=== PATIENT | male | born 1965 | race Caucasian/White ===

== ENCOUNTER 2016-06-17 01:42 | Inpatient (IN) | payer MEDICARE, OTHER ==
[2016-06-17] VITALS (14 sets, daily range): BP systolic 128–185; BP diastolic 69–100; PULSE 64–73; RESP 18–20; TEMP 98; Ht 172.7 cm; Wt 69.5 kg
[~2016-06-17] VITALS: Ht 172.7 cm; Wt 69.5 kg
[~2016-06-17 01:42] MED LIST: ASPI-664 PO; ATOR80TA75 PO; BEN50 PO; CALC667C PO; DOCU-159 PO; HYDR2TAB15 PO; INSU100C SQ; ISOS60TA PO; LISI-524 PO; LORA-444 PO; METO50TA16 PO; NIFE60TA7 PO; PANT40TA3 PO; PRAM0.25 PO; PRAS10TA6 PO; SEVE800T10 PO
--- NOTE | 2016-06-17 02:47 | RADRPT ---
PROCEDURE: Chest. CLINICAL INDICATION: Chest pain. TECHNIQUE: Single frontal view of the chest was obtained. COMPARISON: 05/15/2016. FINDINGS: There is a right-sided Perma-Cath extending to the SVC/RA junction. There is a left-sided Port-A-Ca th extending to the SVC/RA junction. The cardiac silhouette is within normal limits. The aortic ar ch is unremarkable. There is no focal consolidation, vascular congestion or pleural effusion. Ther e is no pneumothorax. IMPRESSION: No evidence for active cardiopulmonary disease. Bilateral central venous catheters in place. .Etienne Carolina MD, Date Time Electronically viewed and signed by .Etienne Carolina MD, on 06/17/2016 02:47 .T/
[2016-06-17 03:22] LABS: BASOPHILS % 0.2 % (0.0-2.0); EOSINOPHILS # 0.5 10^3/ul (0.0-0.5); EOSINOPHILS % 6.4 % (0.0-7.0); HEMATOCRIT 32.6 % (42.0-52.0); HEMOGLOBIN 10.6 g/dl (14.0-18.0); LYMPHOCYTES # 0.5 10^3/ul (0.8-2.9); LYMPHOCYTES % 6.5 % (15.0-51.0); MEAN CORPUSCULAR HEMOGLOBIN 30.3 pg (29.0-33.0); MEAN CORPUSCULAR HGB CONC 32.6 g/dl (32.0-37.0); MEAN CORPUSCULAR VOLUME 92.9 fl (82.0-101.0); MEAN PLATELET VOLUME 8.6 fl (7.4-10.4); MONOCYTE # 0.5 10^3/ul (0.3-0.9); MONOCYTES % 5.8 % (0.0-11.0); NEUTROPHIL # 6.3 10^3/ul (1.6-7.5); NEUTROPHILS % 81.1 % (39.0-77.0); PLATELET COUNT 197 10^3/UL (140-440); RED BLOOD COUNT 3.51 10^6/ul (4.70-6.10); UNCORRECTED WBC 7.7 10^3/ul (4.8-10.8); WHITE BLOOD COUNT 7.7 10^3/ul (4.8-10.8)
[2016-06-17 03:29] LABS: ALBUMIN 3.5 g/dl (3.3-4.9); CHLORIDE 103 mmol/L (97-110); INR 1.03; PROTIME 13.5 Sec (12.2-14.2); PT RATIO 1.1; SODIUM 141 mmol/L (135-144)
[2016-06-17 03:30] LABS: PARTIAL THROMBOPLASTIN TIME 22.9 Sec (25.0-35.0); POTASSIUM 4.7 mmol/L (3.5-5.1)
[2016-06-17 03:31] LABS: CONDITION 1; LH ANALYZER COMMENTS 1
[2016-06-17 03:32] LABS: ALANINE AMINOTRANSFERASE 63 IU/L (13-69); ALBUMIN/GLOBULIN RATIO 1.25; ALKALINE PHOSPHATASE 225 IU/L (42-121); ANION GAP 23 (8-16); ASPARTATE AMINO TRANSFERASE 49 IU/L (15-46); BLOOD UREA NITROGEN 53 mg/dl (7-20); CARBON DIOXIDE 20 mmol/L (21-31); GLUCOSE 160 mg/dl (70-220); TOTAL PROTEIN 6.3 g/dl (6.1-8.1)
[2016-06-17 03:33] LABS: CALCIUM 7.2 mg/dl (8.4-10.2)
[2016-06-17] MEDS ORDERED: HYDROmorphONE 1 MG/ML SYG IV STA (03:46)
[2016-06-17 03:49] LABS: TROPONIN-I < 0.012 ng/ml (0.00-0.12)
--- NOTE | 2016-06-17 03:56 | ERA ---
ER Documentation Chief Complaint Date/Time DATE: 06/17/16 TIME: 03:54 Chief Complaint body aches,fever x2 days,watery diarrhea X1 week,DC'd from hosp 06/01/16 HPI This is a 50-year-old male, body aches and fever for 2 days along with watery diarrhea for 1 week. He has been on intravenous ciprofloxacin for chronic UTI. No fevers no chills. No other current complaints diarrhea has been 5-6 episodes per day and not watery. Alternating fevers and chills. No bloody diarrhea. ROS All systems reviewed and are negative except as per history of present illness. Medications Home Meds Active Scripts Hydromorphone Hcl* (Dilaudid*) 2 Mg Tablet, 2 MG PO Q6H Y for PAIN LEVEL 6-10, # 14 TAB Prov:PEDRO BENSON 05/31/16 Prasugrel Hydrochloride* (Effient*) 10 Mg Tablet, 10 MG PO DAILY for 30 Days, TAB Prov:PEDRO BENSON 05/01/16 Isosorbide Mononitrate* (Isosorbide Mononitrate*) 60 Mg Tab.er.24h, 60 MG PO DAILY for 30 Days Prov:PEDRO BENSON 05/01/16 Reported Medications Pantoprazole* (Protonix*) 40 Mg Tablet.dr, 40 MG PO DAILY, TAB 05/15/16 Pramipexole* (Pramipexole*) 0.25 Mg Tablet, 0.25 MG PO HS, TAB 05/15/16 Nifedipine* (Nifedipine ER*) 60 Mg Tablet.sa, 60 MG PO DAILY, TAB.SA 05/15/16 Lisinopril* (Zestril*) 10 Mg Tablet, 10 MG PO DAILY, #30 TAB 05/15/16 Insulin Lispro (Humalog) 100 Unit/1 Ml Cartridge, 0 SQ PT HAS PUMP 05/15/16 Sevelamer Hcl* (Renagel*) 800 Mg Tablet, 1600 MG PO WITH MEALS, TAB 01/14/16 Calcium Acetate* (Calcium Acetate*) 667 Mg Capsule, 1334 MG PO WITH MEALS, #60 CAP 01/14/16 Aspirin* (Aspirin* EC) 81 Mg Tablet.dr, 81 MG PO DAILY, TAB 12/21/15 Lorazepam* (Ativan*) 2 Mg Tablet, 2 MG PO HS, #30 TAB 12/21/15 Atorvastatin* (Atorvastatin*) 80 Mg Tablet, 80 MG PO QHS, #30 TAB 07/15/15 Diphenhydramine Hcl* (Benadryl*) 50 Mg Cap, 50 MG PO Q6 Y for ITCHING, CAP 07/15/15 Docusate Sodium* (Docusate Sodium*) 100 Mg Capsule, 100 MG PO BID, #60 CAP 07/15/15 Metoprolol Succinate* (Toprol XL*) 50 Mg Tab.er.24h, 50 MG PO BID, TAB PT DOES NOT TAKE ON UR SAT 07/09/14 Allergies Allergies: Coded Allergies: adhesive (Verified Allergy, Intermediate, 05/15/16) (+)itchiness/rash azithromycin (Verified Allergy, Intermediate, RASH, 05/15/16) erythromycin base (Verified Allergy, Intermediate, CRAMPS, 05/15/16) codeine (Verified Allergy, Mild, ABD. CRAMPS, 05/15/16) morphine (Verified Allergy, Unknown, 05/15/16) PMhx/Soc History of Surgery: Yes (suprapubic catheter placement, fistula, nasal surgery , eye surgeries) Anesthesia Reaction: No Hx 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 Disorder: No Hx Respiratory Disorders: No Hx Cardiac Disorders: Yes (NM, CAD, stents, HTN) Hx Psychiatric Problems: No Hx Miscellaneous Medical Probl: No Hx Alcohol Use: No Hx Substance Use: No Hx Tobacco Use: No Smoking Status: Unknown if ever smoked Physical Exam Vitals Vital Signs Date Time Temp Pulse Resp B/P Pulse Ox O2 Delivery O2 Flow Rate FiO2 06/17/16 02:05 99.2 80 18 181/101 99 Physical Exam Const: [] Head: Atraumatic Eyes: Normal Conjunctiva ENT: Normal External Ears, Nose and Mouth. Neck: Full range of motion..~ No meningismus. Resp: Clear to auscultation bilaterally Cardio: Regular rate and rhythm, no murmurs Abd: Soft, non tender, non distended. Normal bowel sounds Skin: No petechiae or rashes Back: No midline or flank tenderness Ext: No cyanosis, or edema Neur: Awake and alert Psych: Normal Mood and Affect Result Diagram: 06/17/16 0300 06/17/16 0300 Results 24 hrs Laboratory Tests Test 06/17/16 03:00 Activated Partial Thromboplast Time 22.9Sec Alanine Aminotransferase (ALT/SGPT) 63IU/L Albumin 3.5g/dl Albumin/Globulin Ratio 1.25 Alkaline Phosphatase 225IU/L Anion Gap 23 Aspartate Amino Transf (AST/SGOT) 49IU/L Basophils # 0.010^3/ul Basophils % 0.2% Blood Morphology Comment Blood Urea Nitrogen 53mg/dl Calcium Level 7.2mg/dl Carbon Dioxide Level 20mmol/L Chloride Level 103mmol/L Creatinine 7.50mg/dl Direct Bilirubin 0.00mg/dl Eosinophils # 0.510^3/ul Eosinophils % 6.4% Globulin 2.80g/dl Glucose Level 160mg/dl Hematocrit 32.6% Hemoglobin 10.6g/dl INR International Normalized Ratio 1.03 Indirect Bilirubin 0.0mg/dl Lactic Acid Level 0.8mmol/L Lymphocytes # 0.510^3/ul Lymphocytes % 6.5% Mean Corpuscular Hemoglobin 30.3pg Mean Corpuscular Hemoglobin Concent 32.6g/dl Mean Corpuscular Volume 92.9fl Mean Platelet Volume 8.6fl Monocytes # 0.510^3/ul Monocytes % 5.8% Neutrophils # 6.310^3/ul Neutrophils % 81.1% Nucleated Red Blood Cells # 0.010^3/ul Nucleated Red Blood Cells % 0.0/100WBC Platelet Count 27057^3/UL Potassium Level 4.7mmol/L Prothrombin Time 13.5Sec Prothrombin Time Ratio 1.1 Red Blood Count 3.5110^6/ul Red Cell Distribution Width 17.0% Sodium Level 141mmol/L Total Bilirubin 0.0mg/dl Total Protein 6.3g/dl Troponin I < 0.012ng/ml White Blood Count 7.710^3/ul Current Medications Medications (Trade) Dose Ordered Sig/Angel Route PRN Reason Start Time Stop Time Status Last Admin Dose Admin Hydromorphone HCl (Dilaudid) 1 mg ONCE STAT IV 06/17/16 03:46 06/17/16 03:48 DC 06/17/16 03:52 Diphenhydramine HCl 50 mg 50 mg ONCE ONCE IV 06/17/16 04:00 06/17/16 04:01 06/17/16 03:52 Vancomycin HCl 250 ml @ 125 mls/hr ONCE IVPB 06/17/16 04:00 06/17/16 05:59 Metronidazole (Flagyl 500 Mg (Pmx)) 100 ml @ 100 mls/hr ONCE ONCE IVPB 06/17/16 04:00 06/17/16 04:59 06/17/16 03:52 Procedures/MDM Medical decision-making: The patient comes in with evidence of likely C. difficile colitis. Patient will be admitted to Dr. Abdi. Dr. Dave is on- call. Patient started on Vanco and Flagyl. Departure Diagnosis: Primary Impression: Colitis Additional Impression: C. difficile colitis Condition: Serious UTE SOLANO Jun 17, 2016 03:56
[2016-06-17] MEDS ORDERED: VANCOMYCIN 1 GM (PMX) 250 ML IVPB SCH (04:00)
[2016-06-17] MEDS ORDERED: DIPHENHYDRAMINE 50 MG INJ IV ONE (04:00)
[2016-06-17] MEDS ORDERED: metroNIDAZOLE 500 MG/NS (PMX) 100 ML IVPB ONE (04:00)
[2016-06-17] MEDS ORDERED: HYDROmorphONE 1 MG/ML SYG IV PRN (08:30)
[2016-06-17] MEDS ORDERED: DOCUSATE SODIUM 100 MG CAP PO SCH (09:00)
[2016-06-17] MEDS ORDERED: ISOSORBIDE MONONITRATE 20 MG TAB PO SCH (09:00)
[2016-06-17] MEDS: DIPHENHYDRAMINE 50 MG INJ IV PRN ×3 (09:18→21:25)
[2016-06-17] MEDS: ASPIRIN (EC) 81 MG TAB PO SCH (09:25)
[2016-06-17] MEDS: LISINOPRIL 10 MG TAB PO SCH (09:26)
[2016-06-17] MEDS: METOPROLOL (XL) 50 MG TAB PO SCH ×2 (09:27→20:55)
[2016-06-17] MEDS: ISOSORBIDE MONONITRATE(SR)60 MG TAB PO SCH (09:27)
--- NOTE | 2016-06-17 11:51 | HP ---
Date/Time of Note Date/Time of Note DATE: 06/17/16 TIME: 11:48 Assessment/Plan VTE Prophylaxis VTE Prophylaxis Intervention: LMWH Assessment/Plan Chief Complaint/Hosp Course 1) colitisi - PO vancomycin 2) diabetes - continue on insulin pump 3) renal failure - consult nephrology for hemodialysis Problems: HPI/ROS Admit Date/Time Admit Date/Time Jun 17, 2016 at 03:47 Hx of Present Illness Patient with diabetes, renal failure comes in with upper respiratory symptoms that progressed to severe diarrhea. Patient was found to have C. difficile colitis and so is admitted for further treatment. PMH/Family/Social Past Medical History End stage renal disease Medical History: diabetes Past Surgical History Past Surgical Hx: angioplasty, other Social History Smoking Status: Unknown if ever smoked Exam/Review of Systems Vital Signs Vitals Vital Signs Date Time Temp Pulse Resp B/P Pulse Ox O2 Delivery O2 Flow Rate FiO2 06/17/16 07:45 98.2 64 20 185/99 100 06/17/16 05:00 Room Air Intake and Output 06/16/16 06/16/16 06/17/16 15:00 23:00 07:00 Intake Total 100 ml Balance 100 ml Exam Constitutional: well developed Head: atraumatic, normocephalic Neck: supple Respiratory: clear to auscultation Cardiovascular: regular rate and rhythm Gastrointestinal: non-tender, soft Labs Result Diagram: 06/17/16 0300 06/17/16 0300 Medications Medications Current Medications Prasugrel (Effient) 10 mg DAILY PO ; Start 06/17/16 at 10:30 Metoprolol Succinate (Toprol Xl) 50 mg BID PO Last administered on 06/17/16 09: 27; Admin Dose 50 MG; Start 06/17/16 at 09:00 Docusate Sodium (Colace) 100 mg BID PO Last administered on 06/17/16 09:26; Admin Dose 100 MG; Start 06/17/16 at 09:00 Atorvastatin Calcium (Lipitor) 80 mg HS PO ; Start 06/17/16 at 21:00 Lorazepam (Ativan) 2 mg HS PRN PO INSOMNIA; Start 06/17/16 at 08:30 Aspirin (Halfprin) 81 mg DAILY PO Last administered on 06/17/16 09:25; Admin Dose 81 MG; Start 06/17/16 at 09:00 Lisinopril (Zestril) 10 mg DAILY PO Last administered on 06/17/16 09:26; Admin Dose 10 MG; Start 06/17/16 at 09:00 Pramipexole (Mirapex) 0.25 mg HS PO ; Start 06/17/16 at 21:00 Pantoprazole (Protonix Tab) 40 mg DAILY@06 PO ; Start 06/18/16 at 06:00 Hydromorphone HCl (Dilaudid) 1 mg Q4H PRN IV PAIN Last administered on 09:19; Admin Dose 1 MG; Start 06/17/16 at 08:30 Ondansetron HCl (Zofran Inj) 4 mg Q6H PRN IV NAUSEA AND/OR VOMITING; Start 06/17 at 08:30 Vancomycin HCl (Vancomycin Oral Syringe) 125 mg Q6 PO ; Start 06/17/16 at 12:00 Isosorbide Mononitrate (Imdur) 60 mg DAILY PO Last administered on 06/17/16 09: 27; Admin Dose 60 MG; Start 06/17/16 at 09:00 Diphenhydramine HCl (Benadryl) 50 mg Q6H PRN IV ITCHING Last administered on 09:18; Admin Dose 50 MG; Start 06/17/16 at 09:30 SHANTE SALDAÑA Jun 17, 2016 11:51
[2016-06-17] MEDS: PRASUGREL HYDROCHLORIDE 10 MG TABLET PO SCH (12:30)
[2016-06-17] MEDS: SEVELAMER 800 MG TAB PO SCH ×2 (12:30→17:57)
[2016-06-17] MEDS: CALCIUM ACETATE 667 MG CAP PO SCH ×2 (12:30→17:56)
[2016-06-17] MEDS: HYDROmorphONE 1 MG/ML SYG IV PRN ×4 (12:31→21:27)
[2016-06-17] MEDS: VANCOMYCIN HCL 250 MG/5ML POSYG PO SCH ×2 (12:39→17:57)
--- NOTE | 2016-06-17 13:54 | PREOPHP ---
DATE OF ADMISSION: 06/17/2016 REASON FOR CONSULTATION: End-stage renal disease. HISTORY OF PRESENT ILLNESS: This 50-year-old man was admitted to the hospital today because of body aches and watery diarrhea for 1 week. The patient has known end-stage renal disease and is on main tenance hemodialysis. This patient is well known to me. The patient has been on chronic hemodialys is for years. The patient apparently has been on Cipro for urinary tract infection. He is due for his hemodialysis treatment today. The patient has not had any vomiting. He has had generalized bod y aches. He denies seeing any blood in his stool; however, his vision is very poor. PAST MEDICAL HISTORY: Coronary artery disease. 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 A new left upper arm bovine AV graft for hemodialysis. ALLERGIES: HE IS ALLERGIC TO 1. CODEINE. 2. MORPHINE. 3. ZITHROMAX. FAMILY HISTORY: Positive for coronary artery disease. SOCIAL HISTORY: The patient does not drink or smoke. CURRENT MEDICATIONS: Include the followin. Lipitor 80 mg a day, Phos-Lo 3 times a day with meals. 2. Isosorbide mononitrate 60 mg a day. 3. Lisinopril 10 mg a day. 4. Pantoprazole 40 mg a day. 5. Mirapex 0.25 mg at bedtime. 6. Lorazepam 1 mg IV before each dialysis. 7. Benadryl 50 mg IV before each dialysis. 8. Dilaudid 1 mg q.3 hours p.r.n. pain. 9. Renagel 1600 mg with each meal. 10. Vancomycin orally 4 times a day. 11. Effient 10 mg a day. 12. Metoprolol 50 mg twice a day. 13. Aspirin 81 mg a day. PHYSICAL EXAMINATION: GENERAL: At this time reveals a well-developed man in no apparent distress. VITAL SIGNS: Temperature 98.2, pulse is 64, respirations 20, blood pressure 185/99, O2 saturation o f 100% on room air. HEENT: Head normocephalic. Eyes, he has a prosthetic right eye. NOSE AND MOUTH: Normal. NECK: Supple. No neck vein distention. LUNGS: He does have some scattered expiratory wheezes that clear with coughing. HEART: Regular rhythm. No murmurs, gallops or rubs. EXTREMITIES: He does have a right internal jugular Perm-A-Cath and a left chest Port-A-Cath. He do es have a left upper arm AV graft. Abdomen is soft, nontender, no masses or megaly. EXTREMITIES: No peripheral edema. IMPRESSION: This patient has end-stage renal disease and is on maintenance hemodialysis. He is due for hemodialysis today. He has come in with a history of watery diarrhea for a week after being on antibiotics. C. difficile colitis is being ruled out. PLAN: 1. Order hemodialysis today. 2. Continue current medications. 3. Continue his hemodialysis treatments Thursday, and Thursday. 4. Await evaluation by Dr. Byrnes to see if we can use his left upper arm AV graft. Dictated By: DONY HOWARD MD, ND/SERGO Conf#: [id number] DID#: [id number]
[2016-06-17] MEDS: LORAZEPAM 2 MG INJ IV SCH (15:59)
[2016-06-17] MEDS: ATORVASTATIN 80 MG TAB PO SCH (20:55)
[2016-06-17] MEDS: PRAMIPEXOLE 0.25 MG TAB PO SCH (20:55)
[2016-06-17] MEDS: ONDANSETRON 4 MG INJ IV PRN (21:27)
[2016-06-17] MEDS: LORAZEPAM 1 MG TAB PO PRN (23:43)
[2016-06-18] MEDS: HYDROmorphONE 1 MG/ML SYG IV PRN ×8 (00:22→21:17)
[2016-06-18] MEDS: VANCOMYCIN HCL 250 MG/5ML POSYG PO SCH ×4 (00:27→18:27)
[2016-06-18] MEDS: DIPHENHYDRAMINE 50 MG INJ IV PRN ×4 (03:23→21:17)
[2016-06-18 04:39] VITALS: BP 164/85; RESP 20
[2016-06-18] MEDS: PANTOPRAZOLE (EC) 40 MG TAB PO SCH (06:22)
[2016-06-18 07:54] VITALS: BP 139/69; RESP 18
[2016-06-18] MEDS: PRASUGREL HYDROCHLORIDE 10 MG TABLET PO SCH (09:23)
[2016-06-18] MEDS: ISOSORBIDE MONONITRATE(SR)60 MG TAB PO SCH (09:23)
[2016-06-18] MEDS: SEVELAMER 800 MG TAB PO SCH ×3 (09:23→17:15)
[2016-06-18] MEDS: ASPIRIN (EC) 81 MG TAB PO SCH (09:23)
[2016-06-18] MEDS: LISINOPRIL 10 MG TAB PO SCH (09:23)
[2016-06-18] MEDS: CALCIUM ACETATE 667 MG CAP PO SCH ×3 (09:24→17:15)
[2016-06-18] MEDS: METOPROLOL (XL) 50 MG TAB PO SCH ×2 (09:24→21:18)
--- NOTE | 2016-06-18 11:58 | PN ---
Date/Time of Note Date/Time of Note DATE: 06/18/16 TIME: 11:57 Assessment/Plan VTE Prophylaxis VTE Prophylaxis Intervention: heparin Lines/Catheters IV [facility] PORTACATH Urinary Cath still in place: No Assessment/Plan Chief Complaint/Hosp Course 1) colitisi - PO vancomycin 2) diabetes - continue on insulin pump 3) renal failure - consult nephrology for hemodialysis Problems: Subjective 24 Hr Interval Summary Free Text/Dictation Patient still having diarrhea Exam/Review of Systems Vital Signs Vitals Vital Signs Date Time Temp Pulse Resp B/P Pulse Ox O2 Delivery O2 Flow Rate FiO2 06/18/16 07:54 98.3 70 18 139/69 95 06/17/16 08:00 Room Air Intake and Output 06/17/16 06/17/16 06/18/16 15:00 23:00 07:00 Intake Total 960 ml 240 ml Output Total 3800 ml 875 ml Balance -2840 ml -635 ml Exam Constitutional: well developed Head: atraumatic, normocephalic Respiratory: clear to auscultation Cardiovascular: regular rate and rhythm Gastrointestinal: non-tender, soft Extremities: normal pulses Results Result Diagram: 06/17/16 0300 06/17/16 0300 Results 24 hrs Laboratory Tests Test 06/17/16 12:11 06/17/16 17:11 06/17/16 21:32 06/18/16 07:56 Bedside Glucose 165 147 144 104 Medications Medications Current Medications Prasugrel (Effient) 10 mg DAILY PO Last administered on 06/18/16 09:23; Admin Dose 10 MG; Start 06/17/16 at 10:30 Metoprolol Succinate (Toprol Xl) 50 mg BID PO Last administered on 06/18/16 09: 24; Admin Dose 50 MG; Start 06/17/16 at 09:00 Atorvastatin Calcium (Lipitor) 80 mg HS PO Last administered on 06/17/16 20:55 ; Admin Dose 80 MG; Start 06/17/16 at 21:00 Lorazepam (Ativan) 2 mg HS PRN PO INSOMNIA Last administered on 06/17/16 23:43 ; Admin Dose 2 MG; Start 06/17/16 at 08:30 Aspirin (Halfprin) 81 mg DAILY PO Last administered on 06/18/16 09:23; Admin Dose 81 MG; Start 06/17/16 at 09:00 Lisinopril (Zestril) 10 mg DAILY PO Last administered on 06/18/16 09:23; Admin Dose 10 MG; Start 06/17/16 at 09:00 Pramipexole (Mirapex) 0.25 mg HS PO Last administered on 06/17/16 20:55; Admin Dose 0.25 MG; Start 06/17/16 at 21:00 Pantoprazole (Protonix Tab) 40 mg DAILY@06 PO Last administered on 06/18/16 06: 22; Admin Dose 40 MG; Start 06/18/16 at 06:00 Ondansetron HCl (Zofran Inj) 4 mg Q6H PRN IV NAUSEA AND/OR VOMITING Last administered on 06/17/16 21:27; Admin Dose 4 MG; Start 06/17/16 at 08:30 Vancomycin HCl (Vancomycin Oral Syringe) 125 mg Q6 PO Last administered on 06:22; Admin Dose 125 MG; Start 06/17/16 at 12:00 Isosorbide Mononitrate (Imdur) 60 mg DAILY PO Last administered on 06/18/16 09: 23; Admin Dose 60 MG; Start 06/17/16 at 09:00 Diphenhydramine HCl (Benadryl) 50 mg Q6H PRN IV ITCHING Last administered on 09:24; Admin Dose 50 MG; Start 06/17/16 at 09:30 Hydromorphone HCl (Dilaudid) 1 mg Q3H PRN IV PAIN Last administered on 09:24; Admin Dose 1 MG; Start 06/17/16 at 12:30 Clonidine (Catapres) 0.1 mg Q6H PRN PO SBP > 160mmHg; Start 06/18/16 at 00:00 SHANTE SALDAÑA Jun 18, 2016 11:57
[2016-06-18] MEDS ORDERED: DEXTROSE 50% 50 ML SYRINGE ONE (12:33)
[2016-06-18] MEDS: DEXTROSE 50% 50 ML SYRINGE IV PRN (12:56)
[2016-06-18] MEDS ORDERED: GLUCOSE GEL 15 GRAM TUBE BUCCAL PRN (13:00)
[2016-06-18] MEDS ORDERED: GLUCAGON 1 MG INJ IM PRN (13:00)
[2016-06-18] MEDS ORDERED: GLUCOSE GEL 15 GRAM TUBE PO PRN ×2 (13:00)
[2016-06-18] MEDS ORDERED: DEXTROSE 50% 50 ML SYRINGE IV PRN (13:00)
--- NOTE | 2016-06-18 13:18 | CONS ---
Date/Time of Note Date/Time of Note DATE: 06/18/16 TIME: 13:11 Assessment/Plan Assessment/Plan Chief Complaint/Hosp Course 1. ESRD , will order dialysis for tomorrow . 2. diarrhea , has resolved 3. DM . blood sugars running low . Nurses are monitoring . 4. hiccups , will try Baclofen . Problems: Consultation Date/Type/Reason Admit Date/Time Jun 17, 2016 at 03:47 Initial Consult Date Type of Consultation: renal 24 HR Interval Summary Free Text/Dictation he c/o hiccups , no BM's today . Constitutional: improved Exam/Review of Systems Vital Signs Vitals Vital Signs Date Time Temp Pulse Resp B/P Pulse Ox O2 Delivery O2 Flow Rate FiO2 06/18/16 07:54 98.3 70 18 139/69 95 06/17/16 08:00 Room Air Intake and Output 06/17/16 06/17/16 06/18/16 15:00 23:00 07:00 Intake Total 960 ml 240 ml Output Total 3800 ml 875 ml Balance -2840 ml -635 ml Exam Constitutional: alert, oriented, well developed Psych: nl mood/affect, no complaints Respiratory: clear to auscultation, normal air movement Cardiovascular: nl pulses, regular rate and rhythm Musculoskeletal: nl extremities to inspection Results Result Diagram: 06/17/16 0300 06/17/16 0300 Results 24 hrs Laboratory Tests Test 06/17/16 17:11 06/17/16 21:32 06/18/16 07:56 06/18/16 12:12 Bedside Glucose 147 144 104 48 *L Test 06/18/16 12:29 06/18/16 12:54 Bedside Glucose 44 *L 177 Medications Medications Current Medications Prasugrel (Effient) 10 mg DAILY PO Last administered on 06/18/16 09:23; Admin Dose 10 MG; Start 06/17/16 at 10:30 Metoprolol Succinate (Toprol Xl) 50 mg BID PO Last administered on 06/18/16 09: 24; Admin Dose 50 MG; Start 06/17/16 at 09:00 Atorvastatin Calcium (Lipitor) 80 mg HS PO Last administered on 06/17/16 20:55 ; Admin Dose 80 MG; Start 06/17/16 at 21:00 Lorazepam (Ativan) 2 mg HS PRN PO INSOMNIA Last administered on 06/17/16 23:43 ; Admin Dose 2 MG; Start 06/17/16 at 08:30 Aspirin (Halfprin) 81 mg DAILY PO Last administered on 06/18/16 09:23; Admin Dose 81 MG; Start 06/17/16 at 09:00 Lisinopril (Zestril) 10 mg DAILY PO Last administered on 06/18/16 09:23; Admin Dose 10 MG; Start 06/17/16 at 09:00 Pramipexole (Mirapex) 0.25 mg HS PO Last administered on 06/17/16 20:55; Admin Dose 0.25 MG; Start 06/17/16 at 21:00 Pantoprazole (Protonix Tab) 40 mg DAILY@06 PO Last administered on 06/18/16 06: 22; Admin Dose 40 MG; Start 06/18/16 at 06:00 Ondansetron HCl (Zofran Inj) 4 mg Q6H PRN IV NAUSEA AND/OR VOMITING Last administered on 06/17/16 21:27; Admin Dose 4 MG; Start 06/17/16 at 08:30 Vancomycin HCl (Vancomycin Oral Syringe) 125 mg Q6 PO Last administered on 12:58; Admin Dose 125 MG; Start 06/17/16 at 12:00 Isosorbide Mononitrate (Imdur) 60 mg DAILY PO Last administered on 06/18/16 09: 23; Admin Dose 60 MG; Start 06/17/16 at 09:00 Diphenhydramine HCl (Benadryl) 50 mg Q6H PRN IV ITCHING Last administered on 09:24; Admin Dose 50 MG; Start 06/17/16 at 09:30 Hydromorphone HCl (Dilaudid) 1 mg Q3H PRN IV PAIN Last administered on 12:28; Admin Dose 1 MG; Start 06/17/16 at 12:30 Clonidine (Catapres) 0.1 mg Q6H PRN PO SBP > 160mmHg; Start 06/18/16 at 00:00 Diagnostic Test (Pha) (Accucheck) 1 ea 02 XX ; Start 06/19/16 at 02:00 Miscellaneous Information 1 ea NOTE XX ; Start 06/18/16 at 13:00 Glucose (Glutose) 15 gm Q15M PRN PO DECREASED GLUCOSE; Start 06/18/16 at 13:00 Glucose (Glutose) 22.5 gm Q15M PRN PO DECREASED GLUCOSE; Start 06/18/16 at 13:00 Dextrose (D50w Syringe) 25 ml Q15M PRN IV DECREASED GLUCOSE Last administered on 06/18/16t 12:56; Admin Dose 50 ML; Start 06/18/16 at 13:00 Dextrose (D50w Syringe) 50 ml Q15M PRN IV DECREASED GLUCOSE; Start 06/18/16 at 13:00 Glucagon (Glucagen) 1 mg Q15M PRN IM DECREASED GLUCOSE; Start 06/18/16 at 13:00 Glucose (Glutose) 15 gm Q15M PRN BUCCAL DECREASED GLUCOSE; Start 06/18/16 at 13: 00 DONY HOWARD MD Jun 18, 2016 13:18
[2016-06-18] MEDS: BACLOFEN 10 MG TAB PO PRN (14:43)
[2016-06-18] MEDS: ONDANSETRON 4 MG INJ IV PRN (18:28)
[2016-06-18 19:54] VITALS: BP 172/79; RESP 20
[2016-06-18] MEDS: ATORVASTATIN 80 MG TAB PO SCH (21:18)
[2016-06-18] MEDS: PRAMIPEXOLE 0.25 MG TAB PO SCH (21:18)
[2016-06-19] VITALS (10 sets, daily range): BP systolic 126–185; BP diastolic 76–103; PULSE 67–77; RESP 16–20
[2016-06-19] MEDS: VANCOMYCIN HCL 250 MG/5ML POSYG PO SCH ×5 (00:36→17:35)
[2016-06-19] MEDS: HYDROmorphONE 1 MG/ML SYG IV PRN ×7 (01:17→22:25)
[2016-06-19] MEDS: ONDANSETRON 4 MG INJ IV PRN ×2 (01:28→07:11)
[2016-06-19] MEDS: ACCUCHECK XX SCH (02:00)
[2016-06-19] MEDS: DIPHENHYDRAMINE 50 MG INJ IV PRN ×3 (04:44→19:40)
[2016-06-19] MEDS: PANTOPRAZOLE (EC) 40 MG TAB PO SCH (05:53)
[2016-06-19] MEDS: SEVELAMER 800 MG TAB PO SCH ×4 (08:15→17:36)
[2016-06-19] MEDS: CALCIUM ACETATE 667 MG CAP PO SCH ×4 (08:15→17:36)
[2016-06-19] MEDS: PRASUGREL HYDROCHLORIDE 10 MG TABLET PO SCH ×2 (09:00→14:37)
[2016-06-19] MEDS: LISINOPRIL 10 MG TAB PO SCH ×2 (09:00→14:37)
[2016-06-19] MEDS: ASPIRIN (EC) 81 MG TAB PO SCH ×2 (09:00→14:36)
[2016-06-19] MEDS: METOPROLOL (XL) 50 MG TAB PO SCH ×3 (09:00→20:29)
[2016-06-19] MEDS: ISOSORBIDE MONONITRATE(SR)60 MG TAB PO SCH ×2 (09:00→14:36)
[2016-06-19] MEDS: LORAZEPAM 2 MG INJ IV SCH (09:34)
[2016-06-19] MEDS: DIPHENHYDRAMINE 50 MG INJ IV SCH (09:34)
--- NOTE | 2016-06-19 12:07 | PN ---
Date/Time of Note Date/Time of Note DATE: 06/19/16 TIME: 12:06 Assessment/Plan VTE Prophylaxis VTE Prophylaxis Intervention: heparin Lines/Catheters IV [facility] perma cath Urinary Cath still in place: No Assessment/Plan Chief Complaint/Hosp Course 1) colitisi - PO vancomycin 2) diabetes - continue on insulin pump 3) renal failure - consult nephrology for hemodialysis Problems: Subjective 24 Hr Interval Summary Free Text/Dictation Patient is resting, in the middle of receiving hemodialysis Exam/Review of Systems Vital Signs Vitals Vital Signs Date Time Temp Pulse Resp B/P Pulse Ox O2 Delivery O2 Flow Rate FiO2 06/19/16 11:00 76 06/19/16 08:30 97.5 20 180/90 98 Room Air Intake and Output 06/18/16 06/18/16 06/19/16 14:59 22:59 06:59 Intake Total 1080 ml 360 ml Output Total 700 ml 1000 ml Balance 380 ml -640 ml Exam Constitutional: well developed Head: atraumatic, normocephalic Neck: supple Respiratory: diminished breath sounds Cardiovascular: regular rate and rhythm Gastrointestinal: non-tender, soft Extremities: normal pulses Results Result Diagram: 06/17/16 0300 06/17/16 0300 Results 24 hrs Laboratory Tests Test 06/18/16 12:12 06/18/16 12:29 06/18/16 12:54 06/18/16 13:15 Bedside Glucose 48 *L 44 *L 177 151 Test 06/18/16 17:13 06/18/16 21:23 06/19/16 08:04 Bedside Glucose 151 138 366 H Medications Medications Current Medications Prasugrel (Effient) 10 mg DAILY PO Last administered on 06/18/16 09:23; Admin Dose 10 MG; Start 06/17/16 at 10:30 Metoprolol Succinate (Toprol Xl) 50 mg BID PO Last administered on 06/18/16 21: 18; Admin Dose 50 MG; Start 06/17/16 at 09:00 Atorvastatin Calcium (Lipitor) 80 mg HS PO Last administered on 06/18/16 21:18 ; Admin Dose 80 MG; Start 06/17/16 at 21:00 Lorazepam (Ativan) 2 mg HS PRN PO INSOMNIA Last administered on 06/17/16 23:43 ; Admin Dose 2 MG; Start 06/17/16 at 08:30 Aspirin (Halfprin) 81 mg DAILY PO Last administered on 06/18/16 09:23; Admin Dose 81 MG; Start 06/17/16 at 09:00 Lisinopril (Zestril) 10 mg DAILY PO Last administered on 06/18/16 09:23; Admin Dose 10 MG; Start 06/17/16 at 09:00 Pramipexole (Mirapex) 0.25 mg HS PO Last administered on 06/18/16 21:18; Admin Dose 0.25 MG; Start 06/17/16 at 21:00 Pantoprazole (Protonix Tab) 40 mg DAILY@06 PO Last administered on 06/19/16 05: 53; Admin Dose 40 MG; Start 06/18/16 at 06:00 Ondansetron HCl (Zofran Inj) 4 mg Q6H PRN IV NAUSEA AND/OR VOMITING Last administered on 06/19/16 07:11; Admin Dose 4 MG; Start 06/17/16 at 08:30 Vancomycin HCl (Vancomycin Oral Syringe) 125 mg Q6 PO Last administered on 00:36; Admin Dose 125 MG; Start 06/17/16 at 12:00 Isosorbide Mononitrate (Imdur) 60 mg DAILY PO Last administered on 06/18/16 09: 23; Admin Dose 60 MG; Start 06/17/16 at 09:00 Diphenhydramine HCl (Benadryl) 50 mg Q6H PRN IV ITCHING Last administered on 04:44; Admin Dose 50 MG; Start 06/17/16 at 09:30 Hydromorphone HCl (Dilaudid) 1 mg Q3H PRN IV PAIN Last administered on 07:59; Admin Dose 1 MG; Start 06/17/16 at 12:30 Clonidine (Catapres) 0.1 mg Q6H PRN PO SBP > 160mmHg Last administered on 21:18; Admin Dose 0.1 MG; Start 06/18/16 at 00:00 Diagnostic Test (Pha) (Accucheck) 1 ea 02 XX ; Start 06/19/16 at 02:00 Miscellaneous Information 1 ea NOTE XX ; Start 06/18/16 at 13:00 Glucose (Glutose) 15 gm Q15M PRN PO DECREASED GLUCOSE; Start 06/18/16 at 13:00 Glucose (Glutose) 22.5 gm Q15M PRN PO DECREASED GLUCOSE; Start 06/18/16 at 13:00 Dextrose (D50w Syringe) 25 ml Q15M PRN IV DECREASED GLUCOSE Last administered on 06/18/16 12:56; Admin Dose 50 ML; Start 06/18/16 at 13:00 Dextrose (D50w Syringe) 50 ml Q15M PRN IV DECREASED GLUCOSE; Start 06/18/16 at 13:00 Glucagon (Glucagen) 1 mg Q15M PRN IM DECREASED GLUCOSE; Start 06/18/16 at 13:00 Glucose (Glutose) 15 gm Q15M PRN BUCCAL DECREASED GLUCOSE; Start 06/18/16 at 13: 00 Baclofen (Lioresal) 5 mg BID PRN PO hiccups Last administered on 06/18/16 14: 43; Admin Dose 5 MG; Start 06/18/16 at 13:30 SHANTE SALDAÑA Jun 19, 2016 12:06
[2016-06-19 16:18] LABS: ADD UMIC YES; URINE BILIRUBIN (Dip) NEGATIVE (NEGATIVE); URINE BLOOD (Dip) NEGATIVE (NEGATIVE); URINE COLOR LT. YELLOW (YELLOW); URINE KETONES (Dip) NEGATIVE (NEGATIVE); URINE LEUKOCYTE ESTERASE (Dip) NEGATIVE (NEGATIVE); URINE NITRITE (Dip) NEGATIVE (NEGATIVE); URINE TOTAL PROTEIN (Dip) 2+ (NEGATIVE); URINE UROBILINOGEN (Dip) 0.2 E.U./dL (0.1-1.0)
--- NOTE | 2016-06-19 16:27 | CONS ---
DATE OF ADMISSION: 06/19/2016 DATE OF CONSULTATION: 06/19/2016 TYPE OF CONSULTATION: Vascular surgery. Dear Doctors: Mr. Lyons is a 50-year-old gentleman with a history of end-stage renal disease, kno wn to our vascular surgery service. As of recent, patient underwent a complicated advanced access c reation that entailed left upper extremity axillary to axillary AV graft creation with a Xenograft. The patient was recently admitted for a C. diff infection and currently being treated for that. At the moment, the patient denies shortness of breath, chest pain, nausea, vomiting, fever or chills. Patient denies left upper extremity claudication or rest pain-like symptoms. His jaida from the l eft upper extremity was recently removed. REVIEW OF SYSTEMS: A 12-point review performed and negative except what is mentioned in the HPI. PAST MEDICAL HISTORY: Entails coronary artery disease, recent PR, diabetes, hypertension, neurogeni c bladder, recurrent UTIs, prosthetic right eye, diabetic retinopathy, diabetic neuropathy, right ro tator cuff tear. PAST SURGICAL HISTORY: Multiple upper extremity AV graft creations and multiple chest wall catheter placements. Current left port catheter in the left chest wall. ALLERGIES: 1. CODEINE. 2. MORPHINE. 3. ZITHROMAX. FAMILY HISTORY: Coronary artery disease. SOCIAL HISTORY: Previous smoker and drug user. No current alcohol, tobacco or illicit drug use. PHYSICAL EXAMINATION: GENERAL: Alert and oriented x3, no apparent distress. HEENT: Normocephalic, atraumatic. Right prosthetic eye. Mucosa moist. NECK: Supple. No carotid bruit. PULMONARY: Clear to auscultation bilaterally. No crackles. CARDIOVASCULAR: S1, S2 present. No murmurs. ABDOMEN: Soft, nontender, nondistended. Bowel sounds positive. EXTREMITIES: Palpable femoral pulses, palpable pedal pulses. Motor and sensory intact. Capillary refill 2 to 3 seconds. Left upper extremity palpable brachial pulse. Motor and sensory intact. Surgical scar is well heal ed, palpable AV graft with bruit and thrill present, surgical is no erythema or edema identified. ASSESSMENT AND PLAN: 1. End-stage renal disease: It seems that the patient's left upper extremity AV graft has adequate bruit and thrill at the moment. Would hold off using the AV graft. At the moment until he is reso lved with his C. diff infection and has been fully treated for it. We will plan to obtain an ultras ound of the left upper extremity to evaluate the velocities and flow volume through the graft. 2. Optimize vascular status (BP meds, diet, nutrition, exercise, sugar control, antiplatelets). Discussed findings, plan and management with the patient and he understands. Continue with antibiotics for C difficile infection. Thank you for allowing us to partake in the care of your patient. Please call with any questions. Dictated By: JOE BLISS/SERGO Conf#: [id number] DID#: [id number]
[2016-06-19 16:32] LABS: SQUAMOUS EPITHELIAL CELL,UR FEW; URINE RBCS NONE SEEN /HPF (0)
--- NOTE | 2016-06-19 19:42 | CONS ---
Date/Time of Note Date/Time of Note DATE: 06/19/16 TIME: 19:30 Assessment/Plan Assessment/Plan Chief Complaint/Hosp Course 1. ESRD , He had hemodialysis today . 2. diarrhea , his stool is C Difficle positive 3. DM . . 4. hiccups , on Baclofen .He is improved today . Problems: Consultation Date/Type/Reason Admit Date/Time Jun 19, 2016 at 13:42 Type of Consultation: renal 24 HR Interval Summary Free Text/Dictation He has been having some nausea with vomiting today . Exam/Review of Systems Vital Signs Vitals Vital Signs Date Time Temp Pulse Resp B/P Pulse Ox O2 Delivery O2 Flow Rate FiO2 06/19/16 11:00 76 06/19/16 08:30 97.5 20 180/90 98 Room Air Intake and Output 06/18/16 06/18/16 06/19/16 15:00 23:00 07:00 Intake Total 1080 ml 360 ml Output Total 700 ml 1000 ml Balance 380 ml -640 ml Exam Constitutional: alert, oriented Respiratory: clear to auscultation, normal air movement Cardiovascular: nl pulses, regular rate and rhythm Gastrointestinal: non-tender, soft Musculoskeletal: nl extremities to inspection Results Result Diagram: 06/17/16 0300 06/17/16 0300 Results 24 hrs Laboratory Tests Test 06/18/16 21:23 06/19/16 08:04 06/19/16 12:03 06/19/16 16:00 Bedside Glucose 138 366 H 165 Urine Bilirubin NEGATIVE Urine Clarity CLEAR Urine Color LT. YELLOW Urine Glucose 0.5% H Urine Hemoglobin NEGATIVE Urine Ketones NEGATIVE Urine Leukocyte Esterase NEGATIVE Urine Microscopic RBC NONE SEEN Urine Microscopic WBC 0-2 Urine Nitrite NEGATIVE Urine Specific [place] 1.020 Urine Squamous Epithelial Cells FEW Urine Total Protein 2+ H Urine Urobilinogen 0.2 E.U./dL Urine pH 7.5 Test 06/19/16 17:25 Bedside Glucose 115 Medications Medications Current Medications Prasugrel (Effient) 10 mg DAILY PO Last administered on 06/19/16 14:37; Admin Dose 10 MG; Start 06/17/16 at 10:30 Metoprolol Succinate (Toprol Xl) 50 mg BID PO Last administered on 06/19/16 14: 36; Admin Dose 50 MG; Start 06/17/16 at 09:00 Atorvastatin Calcium (Lipitor) 80 mg HS PO Last administered on 06/18/16 21:18 ; Admin Dose 80 MG; Start 06/17/16 at 21:00 Lorazepam (Ativan) 2 mg HS PRN PO INSOMNIA Last administered on 06/17/16 23:43 ; Admin Dose 2 MG; Start 06/17/16 at 08:30 Aspirin (Halfprin) 81 mg DAILY PO Last administered on 06/19/16 14:36; Admin Dose 81 MG; Start 06/17/16 at 09:00 Lisinopril (Zestril) 10 mg DAILY PO Last administered on 06/19/16 14:37; Admin Dose 10 MG; Start 06/17/16 at 09:00 Pramipexole (Mirapex) 0.25 mg HS PO Last administered on 06/18/16 21:18; Admin Dose 0.25 MG; Start 06/17/16 at 21:00 Pantoprazole (Protonix Tab) 40 mg DAILY@06 PO Last administered on 06/19/16 05: 53; Admin Dose 40 MG; Start 06/18/16 at 06:00 Ondansetron HCl (Zofran Inj) 4 mg Q6H PRN IV NAUSEA AND/OR VOMITING Last administered on 06/19/16 07:11; Admin Dose 4 MG; Start 06/17/16 at 08:30 Vancomycin HCl (Vancomycin Oral Syringe) 125 mg Q6 PO Last administered on 17:35; Admin Dose 125 MG; Start 06/17/16 at 12:00 Isosorbide Mononitrate (Imdur) 60 mg DAILY PO Last administered on 06/19/16 14: 36; Admin Dose 60 MG; Start 06/17/16 at 09:00 Diphenhydramine HCl (Benadryl) 50 mg Q6H PRN IV ITCHING Last administered on 13:09; Admin Dose 50 MG; Start 06/17/16 at 09:30 Hydromorphone HCl (Dilaudid) 1 mg Q3H PRN IV PAIN Last administered on 16:29; Admin Dose 1 MG; Start 06/17/16 at 12:30 Clonidine (Catapres) 0.1 mg Q6H PRN PO SBP > 160mmHg Last administered on 1/4/ 17at 21:18; Admin Dose 0.1 MG; Start 06/18/16 at 00:00 Diagnostic Test (Pha) (Accucheck) 1 ea 02 XX ; Start 06/19/16 at 02:00 Miscellaneous Information 1 ea NOTE XX ; Start 06/18/16 at 13:00 Glucose (Glutose) 15 gm Q15M PRN PO DECREASED GLUCOSE; Start 06/18/16 at 13:00 Glucose (Glutose) 22.5 gm Q15M PRN PO DECREASED GLUCOSE; Start 06/18/16 at 13:00 Dextrose (D50w Syringe) 25 ml Q15M PRN IV DECREASED GLUCOSE Last administered on 06/18/16 12:56; Admin Dose 50 ML; Start 06/18/16 at 13:00 Dextrose (D50w Syringe) 50 ml Q15M PRN IV DECREASED GLUCOSE; Start 06/18/16 at 13:00 Glucagon (Glucagen) 1 mg Q15M PRN IM DECREASED GLUCOSE; Start 06/18/16 at 13:00 Glucose (Glutose) 15 gm Q15M PRN BUCCAL DECREASED GLUCOSE; Start 06/18/16 at 13: 00 Baclofen (Lioresal) 5 mg BID PRN PO hiccups Last administered on 06/18/16 14: 43; Admin Dose 5 MG; Start 06/18/16 at 13:30 DONY HOWARD MD Jun 19, 2016 19:41
[2016-06-19] MEDS: ATORVASTATIN 80 MG TAB PO SCH (20:29)
[2016-06-19] MEDS: PRAMIPEXOLE 0.25 MG TAB PO SCH (20:29)
--- NOTE | 2016-06-19 22:16 | RADRPT ---
PROCEDURE: US left upper extremity arterial system. CLINICAL INDICATION: Left upper extremity pain and swelling. TECHNIQUE: Multiple longitudinal and transverse images of the left upper extremity arterial tree a nd left axillary graft was obtained with freeman scale pulsed Doppler, and color Doppler imaging. COMPARISON: None available FINDINGS: The left subclavian artery is widely patent with a peak systolic velocity of 95 cm/sec and the left axillary artery is widely patent with peak systolic velocity of 83 cm/sec. The left axillary vein d emonstrates normal patency with color Doppler sonography. There is a left axillary artery graft wit h normal flow throughout. The peak systolic velocity in the graft proximally is 148 cm/sec with a f low volume of 1812 ml/minute, peak systolic velocity in the mid graft is 82 cm/sec with a flow volum e of 1159 ml/minute, peak systolic velocity in the distal graft is 191 cm/sec with a flow volume of 1459 ml/minute, the graft outflow has a peak systolic velocity of 156 cm/sec and a flow volume of 20 25 ml/minute. IMPRESSION: 1. Patent left subclavian and axillary arteries. 2. Patent left axillary artery graft. RPTAT: QQ .Alan Cordero MD, MD Date Time Electronically viewed and signed by .Alan Cordero MD, on 06/19/2016 22:15 .R/
[2016-06-20] VITALS (12 sets, daily range): BP systolic 117–179; BP diastolic 77–103; PULSE 69–95; RESP 18–20
[2016-06-20] MEDS: VANCOMYCIN HCL 250 MG/5ML POSYG PO SCH ×5 (01:30→23:22)
[2016-06-20] MEDS: DIPHENHYDRAMINE 50 MG INJ IV PRN ×4 (01:30→20:26)
[2016-06-20] MEDS: HYDROmorphONE 1 MG/ML SYG IV PRN ×8 (01:30→23:22)
[2016-06-20] MEDS: ACCUCHECK XX SCH (02:00)
[2016-06-20] MEDS: PANTOPRAZOLE (EC) 40 MG TAB PO SCH (05:03)
[2016-06-20 06:06] LABS: CREATININE 8.65 mg/dl (0.61-1.24)
[2016-06-20 06:07] LABS: CALCIUM 7.2 mg/dl (8.4-10.2)
[2016-06-20 06:21] LABS: BASOPHILS % 0.5 % (0.0-2.0); EOSINOPHILS # 0.8 10^3/ul (0.0-0.5); EOSINOPHILS % 11.7 % (0.0-7.0); HEMATOCRIT 36.9 % (42.0-52.0); HEMOGLOBIN 12.3 g/dl (14.0-18.0); MEAN CORPUSCULAR HEMOGLOBIN 30.6 pg (29.0-33.0); MEAN CORPUSCULAR HGB CONC 33.3 g/dl (32.0-37.0); MEAN CORPUSCULAR VOLUME 91.8 fl (82.0-101.0); MONOCYTE # 0.8 10^3/ul (0.3-0.9); MONOCYTES % 11.7 % (0.0-11.0); NEUTROPHIL # 4.1 10^3/ul (1.6-7.5); NEUTROPHILS % 61.1 % (39.0-77.0); PLATELET COUNT 157 10^3/UL (140-440); RED BLOOD COUNT 4.01 10^6/ul (4.70-6.10); RED CELL DISTRIBUTION WIDTH 16.5 % (11.5-14.5); UNCORRECTED WBC 6.6 10^3/ul (4.8-10.8); WHITE BLOOD COUNT 6.6 10^3/ul (4.8-10.8)
[2016-06-20 06:32] LABS: CONDITION 1; LH ANALYZER COMMENTS 1
[2016-06-20 06:59] LABS: POTASSIUM 6.3 mmol/L (3.5-5.1)
[2016-06-20] MEDS: ONDANSETRON 4 MG INJ IV PRN ×2 (07:22→13:26)
[2016-06-20] MEDS: DEXTROSE 50% 50 ML SYRINGE IV PRN (08:14)
[2016-06-20] MEDS: PRASUGREL HYDROCHLORIDE 10 MG TABLET PO SCH (08:17)
[2016-06-20] MEDS: CALCIUM ACETATE 667 MG CAP PO SCH ×3 (08:17→17:30)
[2016-06-20] MEDS: ASPIRIN (EC) 81 MG TAB PO SCH (08:17)
[2016-06-20] MEDS: SEVELAMER 800 MG TAB PO SCH ×3 (08:17→17:30)
[2016-06-20] MEDS: ISOSORBIDE MONONITRATE(SR)60 MG TAB PO SCH (08:19)
[2016-06-20] MEDS: METOPROLOL (XL) 50 MG TAB PO SCH ×2 (08:20→20:27)
[2016-06-20] MEDS: LISINOPRIL 10 MG TAB PO SCH (08:20)
[2016-06-20] MEDS: BACLOFEN 10 MG TAB PO PRN ×2 (08:28→22:24)
--- NOTE | 2016-06-20 08:38 | CONS ---
Date/Time of Note Date/Time of Note DATE: 06/20/16 TIME: 08:35 Assessment/Plan Assessment/Plan Chief Complaint/Hosp Course 1. ESRD ,His potassium today is 6.3 . He will need dialysis today for 3 1/2 hours . Next dialysis Thursday , labs in am . 2. diarrhea , his stool is C Difficle positive 3. DM . . 4. hiccups , on Baclofen .He has improved today . Problems: Consultation Date/Type/Reason Admit Date/Time Jun 19, 2016 at 13:42 Type of Consultation: renal 24 HR Interval Summary Free Text/Dictation He says that he is still having diarrhea . He has not vomited since yesterday . Exam/Review of Systems Vital Signs Vitals Vital Signs Date Time Temp Pulse Resp B/P Pulse Ox O2 Delivery O2 Flow Rate FiO2 06/20/16 07:52 98.6 66 18 145/83 97 06/19/16 08:30 Room Air Intake and Output 06/19/16 06/19/16 06/20/16 15:00 23:00 07:00 Intake Total 500 ml 480 ml 240 ml Output Total 3500 ml 200 ml Balance -3000 ml 280 ml 240 ml Exam Constitutional: alert, oriented, well developed Psych: nl mood/affect, no complaints Respiratory: clear to auscultation, normal air movement Cardiovascular: nl pulses, regular rate and rhythm Gastrointestinal: soft Musculoskeletal: nl extremities to inspection Results Result Diagram: 06/20/16 0506 06/20/16 0506 Results 24 hrs Laboratory Tests Test 06/19/16 12:03 06/19/16 16:00 06/19/16 17:25 06/19/16 20:34 Bedside Glucose 165 115 131 Urine Bilirubin NEGATIVE Urine Clarity CLEAR Urine Color LT. YELLOW Urine Glucose 0.5% H Urine Hemoglobin NEGATIVE Urine Ketones NEGATIVE Urine Leukocyte Esterase NEGATIVE Urine Microscopic RBC NONE SEEN Urine Microscopic WBC 0-2 Urine Nitrite NEGATIVE Urine Specific [place] 1.020 Urine Squamous Epithelial Cells FEW Urine Total Protein 2+ H Urine Urobilinogen 0.2 E.U./dL Urine pH 7.5 Test 06/20/16 01:43 06/20/16 05:06 06/20/16 07:57 06/20/16 08:30 Bedside Glucose 195 68 L 97 Anion Gap 23 H Basophils # 0.0 Basophils % 0.5 Blood Morphology Comment Blood Urea Nitrogen 65 H Calcium Level 7.2 L Carbon Dioxide Level 22 Chloride Level 94 L Creatinine 8.65 H Eosinophils # 0.8 H Eosinophils % 11.7 H Glucose Level 122 Hematocrit 36.9 L Hemoglobin 12.3 L Lymphocytes # 1.0 Lymphocytes % 15.0 Mean Corpuscular Hemoglobin 30.6 Mean Corpuscular Hemoglobin Concent 33.3 Mean Corpuscular Volume 91.8 Mean Platelet Volume 9.0 Monocytes # 0.8 Monocytes % 11.7 H Neutrophils # 4.1 Neutrophils % 61.1 Nucleated Red Blood Cells # 0.0 Nucleated Red Blood Cells % 0.0 Platelet Count 157 # Potassium Level 6.3 *H Red Blood Count 4.01 L Red Cell Distribution Width 16.5 H Sodium Level 133 L White Blood Count 6.6 Medications Medications Current Medications Prasugrel (Effient) 10 mg DAILY PO Last administered on 06/20/16 08:17; Admin Dose 10 MG; Start 06/17/16 at 10:30 Metoprolol Succinate (Toprol Xl) 50 mg BID PO Last administered on 06/19/16 20: 29; Admin Dose 50 MG; Start 06/17/16 at 09:00 Atorvastatin Calcium (Lipitor) 80 mg HS PO Last administered on 06/19/16 20:29 ; Admin Dose 80 MG; Start 06/17/16 at 21:00 Lorazepam (Ativan) 2 mg HS PRN PO INSOMNIA Last administered on 06/17/16 23:43 ; Admin Dose 2 MG; Start 06/17/16 at 08:30 Aspirin (Halfprin) 81 mg DAILY PO Last administered on 06/20/16 08:17; Admin Dose 81 MG; Start 06/17/16 at 09:00 Lisinopril (Zestril) 10 mg DAILY PO Last administered on 06/19/16 14:37; Admin Dose 10 MG; Start 06/17/16 at 09:00 Pramipexole (Mirapex) 0.25 mg HS PO Last administered on 06/19/16 20:29; Admin Dose 0.25 MG; Start 06/17/16 at 21:00 Pantoprazole (Protonix Tab) 40 mg DAILY@06 PO Last administered on 06/20/16 05: 03; Admin Dose 40 MG; Start 06/18/16 at 06:00 Ondansetron HCl (Zofran Inj) 4 mg Q6H PRN IV NAUSEA AND/OR VOMITING Last administered on 06/20/16 07:22; Admin Dose 4 MG; Start 06/17/16 at 08:30 Vancomycin HCl (Vancomycin Oral Syringe) 125 mg Q6 PO Last administered on 05:03; Admin Dose 125 MG; Start 06/17/16 at 12:00 Isosorbide Mononitrate (Imdur) 60 mg DAILY PO Last administered on 06/19/16 14: 36; Admin Dose 60 MG; Start 06/17/16 at 09:00 Diphenhydramine HCl (Benadryl) 50 mg Q6H PRN IV ITCHING Last administered on 07:22; Admin Dose 50 MG; Start 06/17/16 at 09:30 Hydromorphone HCl (Dilaudid) 1 mg Q3H PRN IV PAIN Last administered on 07:22; Admin Dose 1 MG; Start 06/17/16 at 12:30 Clonidine (Catapres) 0.1 mg Q6H PRN PO SBP > 160mmHg Last administered on 21:18; Admin Dose 0.1 MG; Start 06/18/16 at 00:00 Diagnostic Test (Pha) (Accucheck) 1 ea 02 XX ; Start 06/19/16 at 02:00 Miscellaneous Information 1 ea NOTE XX ; Start 06/18/16 at 13:00 Glucose (Glutose) 15 gm Q15M PRN PO DECREASED GLUCOSE; Start 06/18/16 at 13:00 Glucose (Glutose) 22.5 gm Q15M PRN PO DECREASED GLUCOSE; Start 06/18/16 at 13:00 Dextrose (D50w Syringe) 25 ml Q15M PRN IV DECREASED GLUCOSE Last administered on 06/20/16 08:14; Admin Dose 25 ML; Start 06/18/16 at 13:00 Dextrose (D50w Syringe) 50 ml Q15M PRN IV DECREASED GLUCOSE; Start 06/18/16 at 13:00 Glucagon (Glucagen) 1 mg Q15M PRN IM DECREASED GLUCOSE; Start 06/18/16 at 13:00 Glucose (Glutose) 15 gm Q15M PRN BUCCAL DECREASED GLUCOSE; Start 06/18/16 at 13: 00 Baclofen (Lioresal) 5 mg BID PRN PO hiccups Last administered on 06/20/16 08: 28; Admin Dose 5 MG; Start 06/18/16 at 13:30 DONY HOWARD MD Jun 20, 2016 08:38
--- NOTE | 2016-06-20 14:29 | PN ---
Date/Time of Note Date/Time of Note DATE: 06/20/16 TIME: 14:28 Assessment/Plan VTE Prophylaxis VTE Prophylaxis Intervention: heparin Lines/Catheters IV [facility] brian cath Urinary Cath still in place: No Assessment/Plan Chief Complaint/Hosp Course 1) colitisi - PO vancomycin 2) diabetes - continue on insulin pump 3) renal failure - consult nephrology for hemodialysis Problems: Subjective 24 Hr Interval Summary Free Text/Dictation Patient continues to have abdominal pain, diarrhea; nausea is better Exam/Review of Systems Vital Signs Vitals Vital Signs Date Time Temp Pulse Resp B/P Pulse Ox O2 Delivery O2 Flow Rate FiO2 06/20/16 07:52 98.6 66 18 145/83 97 06/19/16 08:30 Room Air Intake and Output 06/19/16 06/19/16 06/20/16 15:00 23:00 07:00 Intake Total 500 ml 480 ml 240 ml Output Total 3500 ml 200 ml Balance -3000 ml 280 ml 240 ml Exam Head: atraumatic, normocephalic Neck: supple Respiratory: clear to auscultation Cardiovascular: regular rate and rhythm Gastrointestinal: non-tender, soft Results Result Diagram: 06/20/16 0506 06/20/16 0506 Results 24 hrs Laboratory Tests Test 06/19/16 16:00 06/19/16 17:25 06/19/16 20:34 06/20/16 01:43 Urine Bilirubin NEGATIVE Urine Clarity CLEAR Urine Color LT. YELLOW Urine Glucose 0.5% H Urine Hemoglobin NEGATIVE Urine Ketones NEGATIVE Urine Leukocyte Esterase NEGATIVE Urine Microscopic RBC NONE SEEN Urine Microscopic WBC 0-2 Urine Nitrite NEGATIVE Urine Specific [place] 1.020 Urine Squamous Epithelial Cells FEW Urine Total Protein 2+ H Urine Urobilinogen 0.2 E.U./dL Urine pH 7.5 Bedside Glucose 115 131 195 Test 06/20/16 05:06 06/20/16 07:57 06/20/16 08:30 06/20/16 08:46 Anion Gap 23 H Basophils # 0.0 Basophils % 0.5 Blood Morphology Comment Blood Urea Nitrogen 65 H Calcium Level 7.2 L Carbon Dioxide Level 22 Chloride Level 94 L Creatinine 8.65 H Eosinophils # 0.8 H Eosinophils % 11.7 H Glucose Level 122 Hematocrit 36.9 L Hemoglobin 12.3 L Lymphocytes # 1.0 Lymphocytes % 15.0 Mean Corpuscular Hemoglobin 30.6 Mean Corpuscular Hemoglobin Concent 33.3 Mean Corpuscular Volume 91.8 Mean Platelet Volume 9.0 Monocytes # 0.8 Monocytes % 11.7 H Neutrophils # 4.1 Neutrophils % 61.1 Nucleated Red Blood Cells # 0.0 Nucleated Red Blood Cells % 0.0 Platelet Count 157 # Potassium Level 6.3 *H Red Blood Count 4.01 L Red Cell Distribution Width 16.5 H Sodium Level 133 L White Blood Count 6.6 Bedside Glucose 68 L 97 100 Test 06/20/16 11:47 Bedside Glucose 134 Medications Medications Current Medications Prasugrel (Effient) 10 mg DAILY PO Last administered on 06/20/16 08:17; Admin Dose 10 MG; Start 06/17/16 at 10:30 Metoprolol Succinate (Toprol Xl) 50 mg BID PO Last administered on 06/19/16 20: 29; Admin Dose 50 MG; Start 06/17/16 at 09:00 Atorvastatin Calcium (Lipitor) 80 mg HS PO Last administered on 06/19/16 20:29 ; Admin Dose 80 MG; Start 06/17/16 at 21:00 Lorazepam (Ativan) 2 mg HS PRN PO INSOMNIA Last administered on 06/17/16 23:43 ; Admin Dose 2 MG; Start 06/17/16 at 08:30 Aspirin (Halfprin) 81 mg DAILY PO Last administered on 06/20/16 08:17; Admin Dose 81 MG; Start 06/17/16 at 09:00 Lisinopril (Zestril) 10 mg DAILY PO Last administered on 06/19/16 14:37; Admin Dose 10 MG; Start 06/17/16 at 09:00 Pramipexole (Mirapex) 0.25 mg HS PO Last administered on 06/19/16 20:29; Admin Dose 0.25 MG; Start 06/17/16 at 21:00 Pantoprazole (Protonix Tab) 40 mg DAILY@06 PO Last administered on 06/20/16 05: 03; Admin Dose 40 MG; Start 06/18/16 at 06:00 Ondansetron HCl (Zofran Inj) 4 mg Q6H PRN IV NAUSEA AND/OR VOMITING Last administered on 06/20/16 13:26; Admin Dose 4 MG; Start 06/17/16 at 08:30 Vancomycin HCl (Vancomycin Oral Syringe) 125 mg Q6 PO Last administered on 11:43; Admin Dose 125 MG; Start 06/17/16 at 12:00 Isosorbide Mononitrate (Imdur) 60 mg DAILY PO Last administered on 06/19/16 14: 36; Admin Dose 60 MG; Start 06/17/16 at 09:00 Diphenhydramine HCl (Benadryl) 50 mg Q6H PRN IV ITCHING Last administered on 13:26; Admin Dose 50 MG; Start 06/17/16 at 09:30 Hydromorphone HCl (Dilaudid) 1 mg Q3H PRN IV PAIN Last administered on 13:27; Admin Dose 1 MG; Start 06/17/16 at 12:30 Clonidine (Catapres) 0.1 mg Q6H PRN PO SBP > 160mmHg Last administered on 21:18; Admin Dose 0.1 MG; Start 06/18/16 at 00:00 Diagnostic Test (Pha) (Accucheck) 1 ea 02 XX ; Start 06/19/16 at 02:00 Miscellaneous Information 1 ea NOTE XX ; Start 06/18/16 at 13:00 Glucose (Glutose) 15 gm Q15M PRN PO DECREASED GLUCOSE; Start 06/18/16 at 13:00 Glucose (Glutose) 22.5 gm Q15M PRN PO DECREASED GLUCOSE; Start 06/18/16 at 13:00 Dextrose (D50w Syringe) 25 ml Q15M PRN IV DECREASED GLUCOSE Last administered on 06/20/16 08:14; Admin Dose 25 ML; Start 06/18/16 at 13:00 Dextrose (D50w Syringe) 50 ml Q15M PRN IV DECREASED GLUCOSE; Start 06/18/16 at 13:00 Glucagon (Glucagen) 1 mg Q15M PRN IM DECREASED GLUCOSE; Start 06/18/16 at 13:00 Glucose (Glutose) 15 gm Q15M PRN BUCCAL DECREASED GLUCOSE; Start 06/18/16 at 13: 00 Baclofen (Lioresal) 5 mg BID PRN PO hiccups Last administered on 06/20/16 08: 28; Admin Dose 5 MG; Start 06/18/16 at 13:30 SHANTE SALDAÑA Jun 20, 2016 14:29
[2016-06-20] MEDS: LORAZEPAM 2 MG INJ IV SCH (14:50)
[2016-06-20] MEDS: DIPHENHYDRAMINE 50 MG INJ IV SCH (14:51)
[2016-06-20] MEDS ORDERED: HEPARIN 1000 UNITS/ML 10 ML INJ CATHETER ONE (15:00)
[2016-06-20] MEDS: PRAMIPEXOLE 0.25 MG TAB PO SCH (20:27)
[2016-06-20] MEDS: ATORVASTATIN 80 MG TAB PO SCH (20:27)
[2016-06-21] VITALS (13 sets, daily range): BP systolic 108–182; BP diastolic 48–96; PULSE 69–96; RESP 18–20
[2016-06-21] MEDS: DIPHENHYDRAMINE 50 MG INJ IV PRN ×3 (02:23→20:19)
[2016-06-21] MEDS: HYDROmorphONE 1 MG/ML SYG IV PRN ×7 (02:23→23:21)
[2016-06-21] MEDS: ACCUCHECK XX SCH (02:55)
[2016-06-21] MEDS: VANCOMYCIN HCL 250 MG/5ML POSYG PO SCH ×4 (05:18→23:20)
[2016-06-21] MEDS: PANTOPRAZOLE (EC) 40 MG TAB PO SCH (05:18)
[2016-06-21 07:08] LABS: ALBUMIN 4.3 g/dl (3.3-4.9)
[2016-06-21 07:11] LABS: ALBUMIN/GLOBULIN RATIO 1.22; BILIRUBIN,INDIRECT 0.1 mg/dl (0-1.1); BILIRUBIN,TOTAL 0.1 mg/dl (0.2-1.3); CREATININE 7.67 mg/dl (0.61-1.24); TOTAL PROTEIN 7.8 g/dl (6.1-8.1)
[2016-06-21 07:12] LABS: CALCIUM 7.5 mg/dl (8.4-10.2)
[2016-06-21 07:36] LABS: POTASSIUM 6.2 mmol/L (3.5-5.1)
[2016-06-21] MEDS: PRASUGREL HYDROCHLORIDE 10 MG TABLET PO SCH (08:40)
[2016-06-21] MEDS: SEVELAMER 800 MG TAB PO SCH ×3 (08:40→17:31)
[2016-06-21] MEDS: CALCIUM ACETATE 667 MG CAP PO SCH ×3 (08:40→17:32)
[2016-06-21] MEDS: ASPIRIN (EC) 81 MG TAB PO SCH (08:40)
--- NOTE | 2016-06-21 08:50 | CONS ---
Date/Time of Note Date/Time of Note DATE: 06/21/16 TIME: 08:44 Assessment/Plan Assessment/Plan Additional Assessment/Plan persistent hyperkalemia c. diff colitis possible dysfunctional permacath Plan dialysis 3.5 hours and post dialysis bmp Consultation Date/Type/Reason Admit Date/Time Jun 19, 2016 at 13:42 Initial Consult Date Type of Consultation: renal 24 HR Interval Summary Free Text/Dictation Patient with ongoing pain in his permacath site. Despite dialysis 3.5 hours k 6.2! I could not access dialysis record nor with nursing but no report of problems. He is not on k containing meds and says he is still having his diarrhea. he says he feels weak. He is not sob. Labs noted below. Will check post dialysis bmp and see if permacath is not working and will have dialysis nurse relate if abnormal cath function. His vascular surgeon is Dr. Florence. Constitutional: other (Pain at cat site) Exam/Review of Systems Vital Signs Vitals Vital Signs Date Time Temp Pulse Resp B/P Pulse Ox O2 Delivery O2 Flow Rate FiO2 06/21/16 08:24 97.7 74 20 134/86 99 06/19/16 08:30 Room Air Intake and Output 06/20/16 06/20/16 06/21/16 15:00 23:00 07:00 Intake Total 1080 ml 240 ml Output Total 2920 ml Balance -1840 ml 240 ml Exam Constitutional: alert, oriented Psych: anxiety Head: normocephalic Neck: other (right inferoclavicular cath without surrounding redness.) Respiratory: clear to auscultation Cardiovascular: other (no edema), regular rate and rhythm Gastrointestinal: soft Extremities: other (left arm graft with bruit) Results Result Diagram: 06/20/16 0506 06/21/16 0512 Results 24 hrs Laboratory Tests Test 06/20/16 08:46 06/20/16 11:47 06/20/16 17:22 06/20/16 20:39 Bedside Glucose 100 134 241 H 323 H Test 06/21/16 02:36 06/21/16 05:12 06/21/16 05:17 06/21/16 07:54 Bedside Glucose 195 148 165 Alanine Aminotransferase (ALT/SGPT) 45 Albumin 4.3 Albumin/Globulin Ratio 1.22 Alkaline Phosphatase 197 H Anion Gap 23 H Aspartate Amino Transf (AST/SGOT) 42 Blood Urea Nitrogen 57 H Calcium Level 7.5 L Carbon Dioxide Level 24 Chloride Level 96 L Creatinine 7.67 H Direct Bilirubin 0.00 Globulin 3.50 H Glucose Level 157 Indirect Bilirubin 0.1 Potassium Level 6.2 *H Sodium Level 137 Total Bilirubin 0.1 L Total Protein 7.8 Medications Medications Current Medications Prasugrel (Effient) 10 mg DAILY PO Last administered on 06/20/16 08:17; Admin Dose 10 MG; Start 06/17/16 at 10:30 Metoprolol Succinate (Toprol Xl) 50 mg BID PO Last administered on 06/20/16 20: 27; Admin Dose 50 MG; Start 06/17/16 at 09:00 Atorvastatin Calcium (Lipitor) 80 mg HS PO Last administered on 06/20/16 20:27 ; Admin Dose 80 MG; Start 06/17/16 at 21:00 Lorazepam (Ativan) 2 mg HS PRN PO INSOMNIA Last administered on 06/17/16 23:43 ; Admin Dose 2 MG; Start 06/17/16 at 08:30 Aspirin (Halfprin) 81 mg DAILY PO Last administered on 06/20/16 08:17; Admin Dose 81 MG; Start 06/17/16 at 09:00 Lisinopril (Zestril) 10 mg DAILY PO Last administered on 06/19/16 14:37; Admin Dose 10 MG; Start 06/17/16 at 09:00 Pramipexole (Mirapex) 0.25 mg HS PO Last administered on 06/20/16 20:27; Admin Dose 0.25 MG; Start 06/17/16 at 21:00 Pantoprazole (Protonix Tab) 40 mg DAILY@06 PO Last administered on 06/21/16 05: 18; Admin Dose 40 MG; Start 06/18/16 at 06:00 Ondansetron HCl (Zofran Inj) 4 mg Q6H PRN IV NAUSEA AND/OR VOMITING Last administered on 06/20/16 13:26; Admin Dose 4 MG; Start 06/17/16 at 08:30 Vancomycin HCl (Vancomycin Oral Syringe) 125 mg Q6 PO Last administered on 05:18; Admin Dose 125 MG; Start 06/17/16 at 12:00 Isosorbide Mononitrate (Imdur) 60 mg DAILY PO Last administered on 06/19/16 14: 36; Admin Dose 60 MG; Start 06/17/16 at 09:00 Diphenhydramine HCl (Benadryl) 50 mg Q6H PRN IV ITCHING Last administered on 02:23; Admin Dose 50 MG; Start 06/17/16 at 09:30 Hydromorphone HCl (Dilaudid) 1 mg Q3H PRN IV PAIN Last administered on 05:29; Admin Dose 1 MG; Start 06/17/16 at 12:30 Clonidine (Catapres) 0.1 mg Q6H PRN PO SBP > 160mmHg Last administered on 05:36; Admin Dose 0.1 MG; Start 06/18/16 at 00:00 Diagnostic Test (Pha) (Accucheck) 1 ea 02 XX Last administered on 06/21/16 02: 55; Admin Dose 1 EA; Start 06/19/16 at 02:00 Miscellaneous Information 1 ea NOTE XX ; Start 06/18/16 at 13:00 Glucose (Glutose) 15 gm Q15M PRN PO DECREASED GLUCOSE; Start 06/18/16 at 13:00 Glucose (Glutose) 22.5 gm Q15M PRN PO DECREASED GLUCOSE; Start 06/18/16 at 13:00 Dextrose (D50w Syringe) 25 ml Q15M PRN IV DECREASED GLUCOSE Last administered on 06/20/16 08:14; Admin Dose 25 ML; Start 06/18/16 at 13:00 Dextrose (D50w Syringe) 50 ml Q15M PRN IV DECREASED GLUCOSE; Start 06/18/16 at 13:00 Glucagon (Glucagen) 1 mg Q15M PRN IM DECREASED GLUCOSE; Start 06/18/16 at 13:00 Glucose (Glutose) 15 gm Q15M PRN BUCCAL DECREASED GLUCOSE; Start 06/18/16 at 13: 00 Baclofen (Lioresal) 5 mg BID PRN PO hiccups Last administered on 06/20/16 22: 24; Admin Dose 5 MG; Start 06/18/16 at 13:30 LAMBERT VARELA MD Jun 21, 2016 08:50
[2016-06-21] MEDS: ISOSORBIDE MONONITRATE(SR)60 MG TAB PO SCH (09:00)
[2016-06-21] MEDS: METOPROLOL (XL) 50 MG TAB PO SCH ×2 (09:00→20:23)
[2016-06-21] MEDS: LISINOPRIL 10 MG TAB PO SCH (09:00)
[2016-06-21] MEDS: LORAZEPAM 2 MG INJ IV SCH (10:43)
[2016-06-21] MEDS: DIPHENHYDRAMINE 50 MG INJ IV SCH (10:43)
--- NOTE | 2016-06-21 11:27 | PN ---
Date/Time of Note Date/Time of Note DATE: 06/21/16 TIME: 11:26 Assessment/Plan VTE Prophylaxis VTE Prophylaxis Intervention: heparin Lines/Catheters IV Catheter Type (from [facility]): Permacath Urinary Cath still in place: No Assessment/Plan Chief Complaint/Hosp Course 1) colitisi - PO vancomycin 2) diabetes - continue on insulin pump 3) renal failure - consult nephrology for hemodialysis Problems: Subjective 24 Hr Interval Summary Free Text/Dictation Patient receiving dialysis, complain of pain and continued diarrhea Exam/Review of Systems Vital Signs Vitals Vital Signs Date Time Temp Pulse Resp B/P Pulse Ox O2 Delivery O2 Flow Rate FiO2 06/21/16 08:24 97.7 74 20 134/86 99 06/19/16 08:30 Room Air Intake and Output 06/20/16 06/20/16 06/21/16 15:00 23:00 07:00 Intake Total 1080 ml 240 ml Output Total 2920 ml Balance -1840 ml 240 ml Exam Constitutional: well developed Head: atraumatic, normocephalic Neck: supple Respiratory: clear to auscultation Cardiovascular: regular rate and rhythm Gastrointestinal: soft, tender Extremities: normal pulses Results Result Diagram: 06/20/16 0506 06/21/16 0512 Results 24 hrs Laboratory Tests Test 06/20/16 11:47 06/20/16 17:22 06/20/16 20:39 06/21/16 02:36 Bedside Glucose 134 241 H 323 H 195 Test 06/21/16 05:12 06/21/16 05:17 06/21/16 07:54 Alanine Aminotransferase (ALT/SGPT) 45 Albumin 4.3 Albumin/Globulin Ratio 1.22 Alkaline Phosphatase 197 H Anion Gap 23 H Aspartate Amino Transf (AST/SGOT) 42 Blood Urea Nitrogen 57 H Calcium Level 7.5 L Carbon Dioxide Level 24 Chloride Level 96 L Creatinine 7.67 H Direct Bilirubin 0.00 Globulin 3.50 H Glucose Level 157 Indirect Bilirubin 0.1 Potassium Level 6.2 *H Sodium Level 137 Total Bilirubin 0.1 L Total Protein 7.8 Bedside Glucose 148 165 Medications Medications Current Medications Prasugrel (Effient) 10 mg DAILY PO Last administered on 06/21/16t 08:40; Admin Dose 10 MG; Start 06/17/16 at 10:30 Metoprolol Succinate (Toprol Xl) 50 mg BID PO Last administered on 06/20/16 20: 27; Admin Dose 50 MG; Start 06/17/16 at 09:00 Atorvastatin Calcium (Lipitor) 80 mg HS PO Last administered on 06/20/16 20:27 ; Admin Dose 80 MG; Start 06/17/16 at 21:00 Lorazepam (Ativan) 2 mg HS PRN PO INSOMNIA Last administered on 06/17/16 23:43 ; Admin Dose 2 MG; Start 06/17/16 at 08:30 Aspirin (Halfprin) 81 mg DAILY PO Last administered on 06/21/16 08:40; Admin Dose 81 MG; Start 06/17/16 at 09:00 Lisinopril (Zestril) 10 mg DAILY PO Last administered on 06/19/16 14:37; Admin Dose 10 MG; Start 06/17/16 at 09:00 Pramipexole (Mirapex) 0.25 mg HS PO Last administered on 06/20/16 20:27; Admin Dose 0.25 MG; Start 06/17/16 at 21:00 Pantoprazole (Protonix Tab) 40 mg DAILY@06 PO Last administered on 06/21/16 05: 18; Admin Dose 40 MG; Start 06/18/16 at 06:00 Ondansetron HCl (Zofran Inj) 4 mg Q6H PRN IV NAUSEA AND/OR VOMITING Last administered on 06/20/16 13:26; Admin Dose 4 MG; Start 06/17/16 at 08:30 Vancomycin HCl (Vancomycin Oral Syringe) 125 mg Q6 PO Last administered on 05:18; Admin Dose 125 MG; Start 06/17/16 at 12:00 Isosorbide Mononitrate (Imdur) 60 mg DAILY PO Last administered on 06/19/16 14: 36; Admin Dose 60 MG; Start 06/17/16 at 09:00 Diphenhydramine HCl (Benadryl) 50 mg Q6H PRN IV ITCHING Last administered on 02:23; Admin Dose 50 MG; Start 06/17/16 at 09:30 Hydromorphone HCl (Dilaudid) 1 mg Q3H PRN IV PAIN Last administered on 08:40; Admin Dose 1 MG; Start 06/17/16 at 12:30 Clonidine (Catapres) 0.1 mg Q6H PRN PO SBP > 160mmHg Last administered on 05:36; Admin Dose 0.1 MG; Start 06/18/16 at 00:00 Diagnostic Test (Pha) (Accucheck) 1 ea 02 XX Last administered on 06/21/16 02: 55; Admin Dose 1 EA; Start 06/19/16 at 02:00 Miscellaneous Information 1 ea NOTE XX ; Start 06/18/16 at 13:00 Glucose (Glutose) 15 gm Q15M PRN PO DECREASED GLUCOSE; Start 06/18/16 at 13:00 Glucose (Glutose) 22.5 gm Q15M PRN PO DECREASED GLUCOSE; Start 06/18/16 at 13:00 Dextrose (D50w Syringe) 25 ml Q15M PRN IV DECREASED GLUCOSE Last administered on 06/20/16 08:14; Admin Dose 25 ML; Start 06/18/16 at 13:00 Dextrose (D50w Syringe) 50 ml Q15M PRN IV DECREASED GLUCOSE; Start 06/18/16 at 13:00 Glucagon (Glucagen) 1 mg Q15M PRN IM DECREASED GLUCOSE; Start 06/18/16 at 13:00 Glucose (Glutose) 15 gm Q15M PRN BUCCAL DECREASED GLUCOSE; Start 06/18/16 at 13: 00 Baclofen (Lioresal) 5 mg BID PRN PO hiccups Last administered on 06/20/16 22: 24; Admin Dose 5 MG; Start 06/18/16 at 13:30 SHANTE SALDAÑA Jun 21, 2016 11:27
[2016-06-21] MEDS: ONDANSETRON 4 MG INJ IV PRN (14:40)
[2016-06-21 17:28] LABS: POTASSIUM 4.9 mmol/L (3.5-5.1)
[2016-06-21 17:31] LABS: CREATININE 5.62 mg/dl (0.61-1.24)
[2016-06-21 17:32] LABS: CALCIUM 7.9 mg/dl (8.4-10.2)
[2016-06-21] MEDS: PRAMIPEXOLE 0.25 MG TAB PO SCH (20:20)
[2016-06-21] MEDS: ATORVASTATIN 80 MG TAB PO SCH (20:20)
[2016-06-21] MEDS: BACLOFEN 10 MG TAB PO PRN (23:21)
[2016-06-22] MEDS: HYDROmorphONE 1 MG/ML SYG IV PRN ×8 (02:32→23:59)
[2016-06-22] MEDS: DIPHENHYDRAMINE 50 MG INJ IV PRN ×4 (02:32→21:03)
[2016-06-22] MEDS: ACCUCHECK XX SCH (02:50)
[2016-06-22] MEDS: PANTOPRAZOLE (EC) 40 MG TAB PO SCH (05:40)
[2016-06-22] MEDS: VANCOMYCIN HCL 250 MG/5ML POSYG PO SCH ×4 (05:40→23:58)
[2016-06-22 07:17] VITALS: BP 116/69; RESP 18
--- NOTE | 2016-06-22 08:20 | PN ---
Date/Time of Note Date/Time of Note DATE: 06/22/16 TIME: 08:12 Assessment/Plan VTE Prophylaxis VTE Prophylaxis Intervention: ambulation VTE Contraindication Reason: bleeding Lines/Catheters IV Catheter Type (from Nrs): Permacath Urinary Cath still in place: No Assessment/Plan Assessment/Plan Problem with permacath recurrent hyperkalemia and thereby ineffective dialysis Vascular follow up per Dr. Connor attempting to get the dialysis note. bmp in am Subjective 24 Hr Interval Summary Free Text/Dictation He says he is very sensitive to hyperkalmemia and fingers tingle. He had a 3.5 hour dialysis yesterday and he states that blood flow max was 150 ml. I am unsuccessful in tracking down the dialysis record and yesterday I requested to be contacted if the permacath not working and never heard anything. His post dialysis bun did drop but perhaps not as much as expected for 3.5 hours and the k at the end was 4.9. Bun 57 to [address] Def[address] Connor whether needs new permacath while awaiting maturation of new access. He is not sob. Exam/Review of Systems Vital Signs Vitals Vital Signs Date Time Temp Pulse Resp B/P Pulse Ox O2 Delivery O2 Flow Rate FiO2 06/22/16 07:17 97.7 71 18 116/69 98 06/19/16 08:30 Room Air Intake and Output 06/21/16 06/21/16 06/22/16 15:00 23:00 07:00 Intake Total 200 ml 840 ml 480 ml Output Total 1800 ml Balance -1600 ml 840 ml 480 ml Exam Constitutional: alert, oriented Psych: no complaints Head: atraumatic, normocephalic Neck: supple Respiratory: clear to auscultation Cardiovascular: regular rate and rhythm Results Result Diagram: 06/20/16 0506 06/21/16 1655 Results 24 hrs Laboratory Tests Test 06/21/16 12:13 06/21/16 16:55 06/21/16 17:29 06/21/16 20:34 Bedside Glucose 298 H 271 H 327 H Anion Gap 23 H Blood Urea Nitrogen 38 #H Calcium Level 7.9 L Carbon Dioxide Level 28 Chloride Level 91 L Creatinine 5.62 #H Glucose Level 294 #H Potassium Level 4.9 Sodium Level 137 Test 06/22/16 02:38 Bedside Glucose 97 Medications Medications Current Medications Prasugrel (Effient) 10 mg DAILY PO Last administered on 06/21/16 08:40; Admin Dose 10 MG; Start 06/17/16 at 10:30 Metoprolol Succinate (Toprol Xl) 50 mg BID PO Last administered on 06/21/16 20: 23; Admin Dose 50 MG; Start 06/17/16 at 09:00 Atorvastatin Calcium (Lipitor) 80 mg HS PO Last administered on 06/21/16 20:20 ; Admin Dose 80 MG; Start 06/17/16 at 21:00 Lorazepam (Ativan) 2 mg HS PRN PO INSOMNIA Last administered on 06/17/16 23:43 ; Admin Dose 2 MG; Start 06/17/16 at 08:30 Aspirin (Halfprin) 81 mg DAILY PO Last administered on 06/21/16 08:40; Admin Dose 81 MG; Start 06/17/16 at 09:00 Lisinopril (Zestril) 10 mg DAILY PO Last administered on 06/19/16 14:37; Admin Dose 10 MG; Start 06/17/16 at 09:00 Pramipexole (Mirapex) 0.25 mg HS PO Last administered on 06/21/16 20:20; Admin Dose 0.25 MG; Start 06/17/16 at 21:00 Pantoprazole (Protonix Tab) 40 mg DAILY@06 PO Last administered on 06/22/16 05: 40; Admin Dose 40 MG; Start 06/18/16 at 06:00 Ondansetron HCl (Zofran Inj) 4 mg Q6H PRN IV NAUSEA AND/OR VOMITING Last administered on 06/21/16 14:40; Admin Dose 4 MG; Start 06/17/16 at 08:30 Vancomycin HCl (Vancomycin Oral Syringe) 125 mg Q6 PO Last administered on 05:40; Admin Dose 125 MG; Start 06/17/16 at 12:00 Isosorbide Mononitrate (Imdur) 60 mg DAILY PO Last administered on 06/19/16 14: 36; Admin Dose 60 MG; Start 06/17/16 at 09:00 Diphenhydramine HCl (Benadryl) 50 mg Q6H PRN IV ITCHING Last administered on 02:32; Admin Dose 50 MG; Start 06/17/16 at 09:30 Hydromorphone HCl (Dilaudid) 1 mg Q3H PRN IV PAIN Last administered on 05:40; Admin Dose 1 MG; Start 06/17/16 at 12:30 Clonidine (Catapres) 0.1 mg Q6H PRN PO SBP > 160mmHg Last administered on 05:36; Admin Dose 0.1 MG; Start 06/18/16 at 00:00 Diagnostic Test (Pha) (Accucheck) 1 ea 02 XX Last administered on 06/22/16 02: 50; Admin Dose 1 EA; Start 06/19/16 at 02:00 Miscellaneous Information 1 ea NOTE XX ; Start 06/18/16 at 13:00 Glucose (Glutose) 15 gm Q15M PRN PO DECREASED GLUCOSE; Start 06/18/16 at 13:00 Glucose (Glutose) 22.5 gm Q15M PRN PO DECREASED GLUCOSE; Start 06/18/16 at 13:00 Dextrose (D50w Syringe) 25 ml Q15M PRN IV DECREASED GLUCOSE Last administered on 06/20/16 08:14; Admin Dose 25 ML; Start 06/18/16 at 13:00 Dextrose (D50w Syringe) 50 ml Q15M PRN IV DECREASED GLUCOSE; Start 06/18/16 at 13:00 Glucagon (Glucagen) 1 mg Q15M PRN IM DECREASED GLUCOSE; Start 06/18/16 at 13:00 Glucose (Glutose) 15 gm Q15M PRN BUCCAL DECREASED GLUCOSE; Start 06/18/16 at 13: 00 Baclofen (Lioresal) 5 mg BID PRN PO hiccups Last administered on 06/21/16 23: 21; Admin Dose 5 MG; Start 06/18/16 at 13:30 LAMBERT VARELA MD Jun 22, 2016 08:20
[2016-06-22] MEDS: PRASUGREL HYDROCHLORIDE 10 MG TABLET PO SCH (08:40)
[2016-06-22] MEDS: SEVELAMER 800 MG TAB PO SCH ×3 (08:40→18:08)
[2016-06-22] MEDS: LISINOPRIL 10 MG TAB PO SCH (08:42)
[2016-06-22] MEDS: METOPROLOL (XL) 50 MG TAB PO SCH ×2 (08:43→21:03)
[2016-06-22] MEDS: ASPIRIN (EC) 81 MG TAB PO SCH (08:43)
[2016-06-22] MEDS: ISOSORBIDE MONONITRATE(SR)60 MG TAB PO SCH (08:44)
[2016-06-22] MEDS: CALCIUM ACETATE 667 MG CAP PO SCH ×3 (08:44→18:08)
[2016-06-22] MEDS: ONDANSETRON 4 MG INJ IV PRN ×3 (08:44→23:58)
--- NOTE | 2016-06-22 11:15 | PN ---
Date/Time of Note Date/Time of Note DATE: 06/22/16 TIME: 11:14 Assessment/Plan VTE Prophylaxis VTE Prophylaxis Intervention: heparin Lines/Catheters IV Catheter Type (from [facility] Permacath Urinary Cath still in place: No Assessment/Plan Chief Complaint/Hosp Course 1) colitisi - PO vancomycin 2) diabetes - continue on insulin pump 3) renal failure - consult nephrology for hemodialysis Problems: Subjective 24 Hr Interval Summary Free Text/Dictation Patient still having diarrhea but is more formed now Exam/Review of Systems Vital Signs Vitals Vital Signs Date Time Temp Pulse Resp B/P Pulse Ox O2 Delivery O2 Flow Rate FiO2 06/22/16 07:17 97.7 71 18 116/69 98 06/19/16 08:30 Room Air Intake and Output 06/21/16 06/21/16 06/22/16 15:00 23:00 07:00 Intake Total 200 ml 840 ml 480 ml Output Total 1800 ml Balance -1600 ml 840 ml 480 ml Exam Constitutional: well developed Head: atraumatic, normocephalic Neck: supple Respiratory: clear to auscultation Cardiovascular: regular rate and rhythm Gastrointestinal: non-tender, soft Results Result Diagram: 06/20/16 0506 06/21/16 1655 Results 24 hrs Laboratory Tests Test 06/21/16 12:13 06/21/16 16:55 06/21/16 17:29 06/21/16 20:34 Bedside Glucose 298 H 271 H 327 H Anion Gap 23 H Blood Urea Nitrogen 38 #H Calcium Level 7.9 L Carbon Dioxide Level 28 Chloride Level 91 L Creatinine 5.62 #H Glucose Level 294 #H Potassium Level 4.9 Sodium Level 137 Test 06/22/16 02:38 06/22/16 08:21 Bedside Glucose 97 143 Medications Medications Current Medications Prasugrel (Effient) 10 mg DAILY PO Last administered on 06/22/16 08:40; Admin Dose 10 MG; Start 06/17/16 at 10:30 Metoprolol Succinate (Toprol Xl) 50 mg BID PO Last administered on 06/22/16 08: 43; Admin Dose 50 MG; Start 06/17/16 at 09:00 Atorvastatin Calcium (Lipitor) 80 mg HS PO Last administered on 06/21/16 20:20 ; Admin Dose 80 MG; Start 06/17/16 at 21:00 Lorazepam (Ativan) 2 mg HS PRN PO INSOMNIA Last administered on 06/17/16 23:43 ; Admin Dose 2 MG; Start 06/17/16 at 08:30 Aspirin (Halfprin) 81 mg DAILY PO Last administered on 06/22/16 08:43; Admin Dose 81 MG; Start 06/17/16 at 09:00 Lisinopril (Zestril) 10 mg DAILY PO Last administered on 06/22/16 08:42; Admin Dose 10 MG; Start 06/17/16 at 09:00 Pramipexole (Mirapex) 0.25 mg HS PO Last administered on 06/21/16 20:20; Admin Dose 0.25 MG; Start 06/17/16 at 21:00 Pantoprazole (Protonix Tab) 40 mg DAILY@06 PO Last administered on 06/22/16 05: 40; Admin Dose 40 MG; Start 06/18/16 at 06:00 Ondansetron HCl (Zofran Inj) 4 mg Q6H PRN IV NAUSEA AND/OR VOMITING Last administered on 06/22/16 08:44; Admin Dose 4 MG; Start 06/17/16 at 08:30 Vancomycin HCl (Vancomycin Oral Syringe) 125 mg Q6 PO Last administered on 05:40; Admin Dose 125 MG; Start 06/17/16 at 12:00 Isosorbide Mononitrate (Imdur) 60 mg DAILY PO Last administered on 06/22/16 08: 44; Admin Dose 60 MG; Start 06/17/16 at 09:00 Diphenhydramine HCl (Benadryl) 50 mg Q6H PRN IV ITCHING Last administered on 09:12; Admin Dose 50 MG; Start 06/17/16 at 09:30 Hydromorphone HCl (Dilaudid) 1 mg Q3H PRN IV PAIN Last administered on 08:57; Admin Dose 1 MG; Start 06/17/16 at 12:30 Clonidine (Catapres) 0.1 mg Q6H PRN PO SBP > 160mmHg Last administered on 05:36; Admin Dose 0.1 MG; Start 06/18/16 at 00:00 Diagnostic Test (Pha) (Accucheck) 1 ea 02 XX Last administered on 06/22/16 02: 50; Admin Dose 1 EA; Start 06/19/16 at 02:00 Miscellaneous Information 1 ea NOTE XX ; Start 06/18/16 at 13:00 Glucose (Glutose) 15 gm Q15M PRN PO DECREASED GLUCOSE; Start 06/18/16 at 13:00 Glucose (Glutose) 22.5 gm Q15M PRN PO DECREASED GLUCOSE; Start 06/18/16 at 13:00 Dextrose (D50w Syringe) 25 ml Q15M PRN IV DECREASED GLUCOSE Last administered on 06/20/16 08:14; Admin Dose 25 ML; Start 06/18/16 at 13:00 Dextrose (D50w Syringe) 50 ml Q15M PRN IV DECREASED GLUCOSE; Start 06/18/16 at 13:00 Glucagon (Glucagen) 1 mg Q15M PRN IM DECREASED GLUCOSE; Start 06/18/16 at 13:00 Glucose (Glutose) 15 gm Q15M PRN BUCCAL DECREASED GLUCOSE; Start 06/18/16 at 13: 00 Baclofen (Lioresal) 5 mg BID PRN PO hiccups Last administered on 06/21/16 23: 21; Admin Dose 5 MG; Start 06/18/16 at 13:30 SHANTE SALDAÑA Jun 22, 2016 11:15
[2016-06-22 20:40] VITALS: BP 123/69; RESP 18
[2016-06-22] MEDS: ATORVASTATIN 80 MG TAB PO SCH (21:02)
[2016-06-22] MEDS: PRAMIPEXOLE 0.25 MG TAB PO SCH (21:03)
[2016-06-22] MEDS: LORAZEPAM 1 MG TAB PO PRN (21:59)
[2016-06-23] VITALS (8 sets, daily range): BP systolic 74–144; BP diastolic 45–90; PULSE 72–93; RESP 18–20
[2016-06-23] MEDS: ACCUCHECK XX SCH (03:44)
[2016-06-23 06:11] LABS: BASOPHILS % 0.4 % (0.0-2.0); EOSINOPHILS # 0.9 10^3/ul (0.0-0.5); EOSINOPHILS % 11.3 % (0.0-7.0); HEMATOCRIT 38.7 % (42.0-52.0); HEMOGLOBIN 12.9 g/dl (14.0-18.0); LYMPHOCYTES # 1.6 10^3/ul (0.8-2.9); LYMPHOCYTES % 20.8 % (15.0-51.0); MEAN CORPUSCULAR HEMOGLOBIN 30.2 pg (29.0-33.0); MEAN CORPUSCULAR HGB CONC 33.3 g/dl (32.0-37.0); MEAN CORPUSCULAR VOLUME 90.9 fl (82.0-101.0); MEAN PLATELET VOLUME 9.9 fl (7.4-10.4); MONOCYTE # 0.7 10^3/ul (0.3-0.9); MONOCYTES % 8.5 % (0.0-11.0); NEUTROPHIL # 4.5 10^3/ul (1.6-7.5); PLATELET COUNT 149 10^3/UL (140-440); RED BLOOD COUNT 4.26 10^6/ul (4.70-6.10); RED CELL DISTRIBUTION WIDTH 17.1 % (11.5-14.5); UNCORRECTED WBC 7.6 10^3/ul (4.8-10.8); WHITE BLOOD COUNT 7.6 10^3/ul (4.8-10.8)
[2016-06-23 06:17] LABS: CONDITION 1; LH ANALYZER COMMENTS 1
[2016-06-23 06:21] LABS: POTASSIUM 5.7 mmol/L (3.5-5.1)
[2016-06-23 06:24] LABS: CREATININE 9.04 mg/dl (0.61-1.24)
[2016-06-23 06:25] LABS: CALCIUM 7.5 mg/dl (8.4-10.2)
[2016-06-23] MEDS: VANCOMYCIN HCL 250 MG/5ML POSYG PO SCH ×4 (06:41→23:37)
[2016-06-23] MEDS: PANTOPRAZOLE (EC) 40 MG TAB PO SCH (06:42)
[2016-06-23] MEDS: ONDANSETRON 4 MG INJ IV PRN ×2 (06:45→21:09)
[2016-06-23] MEDS: DIPHENHYDRAMINE 50 MG INJ IV PRN ×3 (06:45→21:09)
[2016-06-23] MEDS: HYDROmorphONE 1 MG/ML SYG IV PRN ×5 (06:46→21:09)
--- NOTE | 2016-06-23 08:05 | CONS ---
Date/Time of Note Date/Time of Note DATE: 06/23/16 TIME: 08:03 Assessment/Plan Assessment/Plan Chief Complaint/Hosp Course 1. ESRD ,His potassium today is 5.7 . He will need dialysis today for 3 1/2 hours and again for tomorrow . labs in am . 2. diarrhea , his stool is C Difficle positive 3. DM . . 4. hiccups , on Baclofen .He has improved today . Problems: Consultation Date/Type/Reason Admit Date/Time Jun 19, 2016 at 13:42 Type of Consultation: renal 24 HR Interval Summary Free Text/Dictation he is sleeping but rouses easily to verbal stimuli . Constitutional: improved, no complaints Exam/Review of Systems Vital Signs Vitals Vital Signs Date Time Temp Pulse Resp B/P Pulse Ox O2 Delivery O2 Flow Rate FiO2 06/22/16 20:40 97.7 83 18 123/69 98 06/19/16 08:30 Room Air Intake and Output 06/22/16 06/22/16 06/23/16 15:00 23:00 07:00 Intake Total 480 ml 480 ml Balance 480 ml 480 ml Exam Constitutional: alert, oriented Psych: no complaints Respiratory: clear to auscultation Cardiovascular: regular rate and rhythm Gastrointestinal: soft Musculoskeletal: nl extremities to inspection Results Result Diagram: 06/23/16 0508 06/23/16 0508 Results 24 hrs Laboratory Tests Test 06/22/16 08:21 06/22/16 11:48 06/22/16 17:14 06/22/16 23:58 Bedside Glucose 143 125 314 H 241 H Test 06/23/16 03:43 06/23/16 05:08 06/23/16 07:54 Bedside Glucose 164 199 Anion Gap 27 H Basophils # 0.0 Basophils % 0.4 Blood Morphology Comment Blood Urea Nitrogen 70 #H Calcium Level 7.5 L Carbon Dioxide Level 22 Chloride Level 91 L Creatinine 9.04 #H Eosinophils # 0.9 H Eosinophils % 11.3 H Glucose Level 191 # Hematocrit 38.7 L Hemoglobin 12.9 L Lymphocytes # 1.6 Lymphocytes % 20.8 Mean Corpuscular Hemoglobin 30.2 Mean Corpuscular Hemoglobin Concent 33.3 Mean Corpuscular Volume 90.9 Mean Platelet Volume 9.9 Monocytes # 0.7 Monocytes % 8.5 Neutrophils # 4.5 Neutrophils % 59.0 Nucleated Red Blood Cells # 0.0 Nucleated Red Blood Cells % 0.0 Platelet Count 149 Potassium Level 5.7 H Red Blood Count 4.26 L Red Cell Distribution Width 17.1 H Sodium Level 134 L White Blood Count 7.6 Medications Medications Current Medications Prasugrel (Effient) 10 mg DAILY PO Last administered on 06/22/16 08:40; Admin Dose 10 MG; Start 06/17/16 at 10:30 Metoprolol Succinate (Toprol Xl) 50 mg BID PO Last administered on 06/22/16 21: 03; Admin Dose 50 MG; Start 06/17/16 at 09:00 Atorvastatin Calcium (Lipitor) 80 mg HS PO Last administered on 06/22/16 21:02 ; Admin Dose 80 MG; Start 06/17/16 at 21:00 Lorazepam (Ativan) 2 mg HS PRN PO INSOMNIA Last administered on 06/22/16 21:59 ; Admin Dose 2 MG; Start 06/17/16 at 08:30 Aspirin (Halfprin) 81 mg DAILY PO Last administered on 06/22/16 08:43; Admin Dose 81 MG; Start 06/17/16 at 09:00 Lisinopril (Zestril) 10 mg DAILY PO Last administered on 06/22/16 08:42; Admin Dose 10 MG; Start 06/17/16 at 09:00 Pramipexole (Mirapex) 0.25 mg HS PO Last administered on 06/22/16 21:03; Admin Dose 0.25 MG; Start 06/17/16 at 21:00 Pantoprazole (Protonix Tab) 40 mg DAILY@06 PO Last administered on 06/23/16 06: 42; Admin Dose 40 MG; Start 06/18/16 at 06:00 Ondansetron HCl (Zofran Inj) 4 mg Q6H PRN IV NAUSEA AND/OR VOMITING Last administered on 06/23/16 06:45; Admin Dose 4 MG; Start 06/17/16 at 08:30 Vancomycin HCl (Vancomycin Oral Syringe) 125 mg Q6 PO Last administered on 06:41; Admin Dose 125 MG; Start 06/17/16 at 12:00 Isosorbide Mononitrate (Imdur) 60 mg DAILY PO Last administered on 06/22/16 08: 44; Admin Dose 60 MG; Start 06/17/16 at 09:00 Diphenhydramine HCl (Benadryl) 50 mg Q6H PRN IV ITCHING Last administered on 06:45; Admin Dose 50 MG; Start 06/17/16 at 09:30 Hydromorphone HCl (Dilaudid) 1 mg Q3H PRN IV PAIN Last administered on 06:46; Admin Dose 1 MG; Start 06/17/16 at 12:30 Clonidine (Catapres) 0.1 mg Q6H PRN PO SBP > 160mmHg Last administered on 05:36; Admin Dose 0.1 MG; Start 06/18/16 at 00:00 Diagnostic Test (Pha) (Accucheck) 1 ea 02 XX Last administered on 06/23/16 03: 44; Admin Dose 1 EA; Start 06/19/16 at 02:00 Miscellaneous Information 1 ea NOTE XX ; Start 06/18/16 at 13:00 Glucose (Glutose) 15 gm Q15M PRN PO DECREASED GLUCOSE; Start 06/18/16 at 13:00 Glucose (Glutose) 22.5 gm Q15M PRN PO DECREASED GLUCOSE; Start 06/18/16 at 13:00 Dextrose (D50w Syringe) 25 ml Q15M PRN IV DECREASED GLUCOSE Last administered on 06/20/16 08:14; Admin Dose 25 ML; Start 06/18/16 at 13:00 Dextrose (D50w Syringe) 50 ml Q15M PRN IV DECREASED GLUCOSE; Start 06/18/16 at 13:00 Glucagon (Glucagen) 1 mg Q15M PRN IM DECREASED GLUCOSE; Start 06/18/16 at 13:00 Glucose (Glutose) 15 gm Q15M PRN BUCCAL DECREASED GLUCOSE; Start 06/18/16 at 13: 00 Baclofen (Lioresal) 5 mg BID PRN PO hiccups Last administered on 06/21/16 23: 21; Admin Dose 5 MG; Start 06/18/16 at 13:30 DONY HOWARD MD Jun 23, 2016 08:05
[2016-06-23] MEDS: LISINOPRIL 10 MG TAB PO SCH (09:00)
[2016-06-23] MEDS: METOPROLOL (XL) 50 MG TAB PO SCH ×2 (09:00→21:09)
[2016-06-23] MEDS: ISOSORBIDE MONONITRATE(SR)60 MG TAB PO SCH (09:53)
[2016-06-23] MEDS: CALCIUM ACETATE 667 MG CAP PO SCH ×3 (09:53→18:07)
[2016-06-23] MEDS: ASPIRIN (EC) 81 MG TAB PO SCH (09:53)
[2016-06-23] MEDS: PRASUGREL HYDROCHLORIDE 10 MG TABLET PO SCH (09:54)
[2016-06-23] MEDS: SEVELAMER 800 MG TAB PO SCH ×3 (09:54→18:07)
[2016-06-23] MEDS: LORAZEPAM 2 MG INJ IV SCH (13:57)
[2016-06-23] MEDS: DIPHENHYDRAMINE 50 MG INJ IV SCH (13:57)
--- NOTE | 2016-06-23 17:52 | PN ---
DATE: 06/23/2016 SUBJECTIVE: This is an internal medicine follow up progress note on this 50-year-old gentleman with end-stage renal disease, diabetes and C difficile colitis. The patient is currently undergoing hem odialysis. No nausea, vomiting reported per RN. OBJECTIVE VITAL SIGNS: Temperature is 97.6, pulse is 77, blood pressure 137/75, respiratory rate 18, oxygen s aturation 96% on room air. GENERAL: Well-developed, well-nourished gentleman in no acute distress. HEENT: Head is atraumatic, normocephalic. Patient has a right hyperesthesia left eye. Pupils equa l, round, reactive to light and accommodation. NECK: Supple, no mass or thyromegaly. LUNGS: Clear bilaterally. HEART: Normal S1, S2. No murmurs, gallops, clicks, rubs noted. ABDOMEN: Round, soft, nondistended, nontender. Bowel sounds present. EXTREMITIES: No edema, clubbing, cyanosis. Pulses equal bilaterally 2+. The patient has bilateral upper extremity arteriovenous fistula. SKIN: There is no rash, petechiae noted. Patient has multiple tattoos with upper and lower extremi ties and trunk. NEUROLOGIC: The patient is lethargic but easily arousable, alert and oriented x2. Patient has a ri ght chest PermCath. LABORATORY AND DIAGNOSTIC DATA FOR TODAY: White blood cells 7.6, hemoglobin 12.9, hematocrit 38.7, platelets 149. Chemistry: Sodium is 134, potassium 5.7, chloride is 91, carbon dioxide 22, anion g ap 27, BUN is 70, creatinine 9.04, glucose 191, calcium 7.5. ASSESSMENT AND PLAN: 1. Clostridium difficile colitis. Continue patient on p.o. vancomycin. Continue contact isolation . 2. End-stage renal disease. Patient is followed by Dr. Hubbard in nephrology consultation. The patient is continued on dialysis. 3. Hyperkalemia. We will monitor potassium level. We will remove potassium with hemodialysis. 4. Diabetes mellitus. The patient has an insulin pump. Continue to monitor blood sugar. 5. Dyslipidemia by history. Continue statin. 6. Coronary artery disease status post in-stent thrombosis, left anterior descending, status post p ercutaneous coronary intervention. Continue patient on aspirin and metoprolol. 7. Hypertension. Continue patient on clonidine. Continue lisinopril and Toprol XL. 8. We will continue Protonix for peptic ulcer disease prophylaxis. Further recommendations based o n clinical course 7. Further recommendations based on clinical course. Plan of care discussed with Dr. Rodriguez. Dictated By: ANGELINA CASTREJON [employer] for WILMER RODRIGUEZ MD SR/NTS Conf#: [id number] DID#: [id number]
--- NOTE | 2016-06-23 19:29 | CONS ---
DATE OF ADMISSION: 06/19/2016 DATE OF CONSULTATION: 06/23/2016 TYPE OF CONSULTATION: Infectious disease. REASON FOR CONSULTATION: Antibiotic management. HISTORY OF PRESENT ILLNESS: Lux Lyons is a 50-year-old male with a history of end-stage renal d ismelae who was admitted to the hospital with aches, pains, and watery diarrhea for 1 week. His prob lems include end-stage renal disease on maintenance dialysis. He has been on dialysis for many year s. He has been on Cipro for urinary tract infection as well. Complains of generalized aches and pa ins. His past problems include: 1. End-stage renal disease on hemodialysis. 2. Coronary artery disease. 3. Status post stent placement in the left anterior descending artery in March 2016. 4. Type 1 diabetes mellitus on insulin pump. 5. Hypertension. 6. Neurogenic bladder. 7. Recurrent UTIs. 8. 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 9. Right rotator cuff repair. 10. Nasal surgery for deviated septum. 11. Placement of right internal jugular Perm-A-Cath. 12. New left upper arm bovine AV graft for hemodialysis. ALLERGIES: 1. CODEINE. 2. MORPHINE. 3. AZITHROMYCIN. The patient presents now with watery diarrhea. On admission, his white count was 7.7, H and H of 10 .6 and 32.6, platelet count of 197,000. On the , his white count was 7.6. BUN and creatinine ar e 70/9.04. Urine is negative for nitrite and leukocyte esterase. Microbiology: Blood cultures are negative. Urine cultures negative. C. difficile is positive. So, the patient has Clostridium dif ficile. His ultrasound shows a patent left subclavian and axillary artery, patent left axillary art eduardo graft for his AV graft. A chest x-ray shows no evidence for acute cardiopulmonary disease. He has bilateral central venous catheters in place. He has a left-sided Port-A-Cath extending to the s uperior vena cava-RA junction. He has a right-sided Perm-A-Cath extending to the same place. There is no focal consolidation. White count today is 7.6. The patient was begun on oral vancomycin 125 mg q.6h. p.o. PAST MEDICAL HISTORY: Operations as outlined. FAMILY HISTORY: Noncontributory. SOCIAL HISTORY: He does not smoke, drink, or abuse drugs. ALLERGIES: NONE TO PENICILLIN, SULFA, OR FOODS. ALLERGIES TO: 1. CODEINE. 2. MORPHINE. 3. ZITHROMAX, NOTED BEFORE. MEDICATIONS: Per chart. REVIEW OF SYSTEMS: Noncontributory. PHYSICAL EXAMINATION: GENERAL: The patient is a well-developed, well-nourished elderly ill-appearing male who is alert, r esponsive, in no acute distress. VITAL SIGNS: Stable. He is afebrile. SKIN: Without generalized rash. HEENT: He has prosthetic right eye. NECK: Supple. LYMPH NODES: None palpable. CHEST: Decreased breath sounds at the bases. HEART: Without murmur or gallop. ABDOMEN: Soft, nontender without organosplenomegaly or masses. EXTREMITIES: He has right internal Perm-A-Cath and a left Port-A-Cath in the left upper arm AV sony t. RECTAL AND GENITAL: Deferred. NEUROLOGIC: No focal neurological abnormalities. PLAN: We will treat him for his C. difficile with oral vancomycin. I will dictate my findings to Jennifer Rodriguez and to Dr. Hubbard and Dr. Byrnes. Dictated By: WILEY RAMOS MD, JD/SERGO Conf#: [id number] DID#: [id number] CC: WILMER RODRIGUEZ MD;*EndCC*
[2016-06-23] MEDS: ATORVASTATIN 80 MG TAB PO SCH (21:08)
[2016-06-23] MEDS: PRAMIPEXOLE 0.25 MG TAB PO SCH (21:08)
[2016-06-23] MEDS: LORAZEPAM 1 MG TAB PO PRN (21:52)
[2016-06-24] MEDS: HYDROmorphONE 1 MG/ML SYG IV PRN ×9 (00:04→23:58)
[2016-06-24] MEDS: ACCUCHECK XX SCH (02:13)
[2016-06-24] MEDS: DIPHENHYDRAMINE 50 MG INJ IV PRN ×4 (03:09→21:03)
[2016-06-24] MEDS: ONDANSETRON 4 MG INJ IV PRN ×2 (03:11→20:36)
[2016-06-24] MEDS: PANTOPRAZOLE (EC) 40 MG TAB PO SCH (06:10)
[2016-06-24] MEDS: VANCOMYCIN HCL 250 MG/5ML POSYG PO SCH ×3 (06:10→18:11)
[2016-06-24 07:22] LABS: ALBUMIN 3.5 g/dl (3.3-4.9); POTASSIUM 5.2 mmol/L (3.5-5.1)
[2016-06-24 07:25] LABS: ALBUMIN/GLOBULIN RATIO 1.2; CREATININE 7.92 mg/dl (0.61-1.24); TOTAL PROTEIN 6.4 g/dl (6.1-8.1)
[2016-06-24 07:26] LABS: CALCIUM 7.5 mg/dl (8.4-10.2)
[2016-06-24 08:13] VITALS: BP 136/77; RESP 18
--- NOTE | 2016-06-24 08:43 | CONS ---
Date/Time of Note Date/Time of Note DATE: 06/24/16 TIME: 08:39 Assessment/Plan Assessment/Plan Chief Complaint/Hosp Course 1. ESRD ,His potassium today is 5.2 . He will need dialysis today for 3 1/2 hours . 2. diarrhea , his stool is C Difficle positive , he is getting Vancomycin orally 3. DM . . 4. hiccups , on Baclofen .He has improved . Problems: Consultation Date/Type/Reason Admit Date/Time Jun 19, 2016 at 13:42 Type of Consultation: renal 24 HR Interval Summary Free Text/Dictation he says that jose elias still has diarrhea , but is overall feeling better . Exam/Review of Systems Vital Signs Vitals Vital Signs Date Time Temp Pulse Resp B/P Pulse Ox O2 Delivery O2 Flow Rate FiO2 06/24/16 08:13 97.5 18 136/77 99 06/23/16 19:11 91 Intake and Output 06/23/16 06/23/16 06/24/16 15:00 23:00 07:00 Intake Total 500 ml 480 ml 340 ml Output Total 1000 ml 600 ml Balance -500 ml 480 ml -260 ml Exam Constitutional: alert, oriented, well developed Psych: nl mood/affect, no complaints Respiratory: clear to auscultation, normal air movement Cardiovascular: nl pulses, regular rate and rhythm Gastrointestinal: soft Musculoskeletal: nl extremities to inspection Results Result Diagram: 06/23/16 0508 06/24/16 0527 Results 24 hrs Laboratory Tests Test 06/23/16 12:23 06/23/16 18:04 06/23/16 23:36 06/24/16 01:56 Bedside Glucose 217 285 H 399 H 210 Test 06/24/16 05:27 06/24/16 07:50 Alanine Aminotransferase (ALT/SGPT) 34 Albumin 3.5 Albumin/Globulin Ratio 1.20 Alkaline Phosphatase 177 H Anion Gap 21 H Aspartate Amino Transf (AST/SGOT) 29 Blood Urea Nitrogen 58 H Calcium Level 7.5 L Carbon Dioxide Level 25 Chloride Level 94 L Creatinine 7.92 H Direct Bilirubin 0.00 Globulin 2.90 Glucose Level 132 # Indirect Bilirubin 0.0 Potassium Level 5.2 H Sodium Level 135 Total Bilirubin 0.0 L Total Protein 6.4 Bedside Glucose 95 Medications Medications Current Medications Prasugrel (Effient) 10 mg DAILY PO Last administered on 06/23/16t 09:54; Admin Dose 10 MG; Start 06/17/16 at 10:30 Metoprolol Succinate (Toprol Xl) 50 mg BID PO Last administered on 06/23/16 21: 09; Admin Dose 50 MG; Start 06/17/16 at 09:00 Atorvastatin Calcium (Lipitor) 80 mg HS PO Last administered on 06/23/16 21:08 ; Admin Dose 80 MG; Start 06/17/16 at 21:00 Lorazepam (Ativan) 2 mg HS PRN PO INSOMNIA Last administered on 06/23/16 21:52 ; Admin Dose 2 MG; Start 06/17/16 at 08:30 Aspirin (Halfprin) 81 mg DAILY PO Last administered on 06/23/16 09:53; Admin Dose 81 MG; Start 06/17/16 at 09:00 Lisinopril (Zestril) 10 mg DAILY PO Last administered on 06/22/16 08:42; Admin Dose 10 MG; Start 06/17/16 at 09:00 Pramipexole (Mirapex) 0.25 mg HS PO Last administered on 06/23/16 21:08; Admin Dose 0.25 MG; Start 06/17/16 at 21:00 Pantoprazole (Protonix Tab) 40 mg DAILY@06 PO Last administered on 06/24/16 06 :10; Admin Dose 40 MG; Start 06/18/16 at 06:00 Ondansetron HCl (Zofran Inj) 4 mg Q6H PRN IV NAUSEA AND/OR VOMITING Last administered on 06/24/16 03:11; Admin Dose 4 MG; Start 06/17/16 at 08:30 Vancomycin HCl (Vancomycin Oral Syringe) 125 mg Q6 PO Last administered on 06/24 06:10; Admin Dose 125 MG; Start 06/17/16 at 12:00 Isosorbide Mononitrate (Imdur) 60 mg DAILY PO Last administered on 06/23/16 09: 53; Admin Dose 60 MG; Start 06/17/16 at 09:00 Diphenhydramine HCl (Benadryl) 50 mg Q6H PRN IV ITCHING Last administered on 03:09; Admin Dose 50 MG; Start 06/17/16 at 09:30 Hydromorphone HCl (Dilaudid) 1 mg Q3H PRN IV PAIN Last administered on 06:11; Admin Dose 1 MG; Start 06/17/16 at 12:30 Clonidine (Catapres) 0.1 mg Q6H PRN PO SBP > 160mmHg Last administered on 05:36; Admin Dose 0.1 MG; Start 06/18/16 at 00:00 Diagnostic Test (Pha) (Accucheck) 1 ea 02 XX Last administered on 06/24/16 02: 13; Admin Dose 1 EA; Start 06/19/16 at 02:00 Miscellaneous Information 1 ea NOTE XX ; Start 06/18/16 at 13:00 Glucose (Glutose) 15 gm Q15M PRN PO DECREASED GLUCOSE; Start 06/18/16 at 13:00 Glucose (Glutose) 22.5 gm Q15M PRN PO DECREASED GLUCOSE; Start 06/18/16 at 13:00 Dextrose (D50w Syringe) 25 ml Q15M PRN IV DECREASED GLUCOSE Last administered on 06/20/16 08:14; Admin Dose 25 ML; Start 06/18/16 at 13:00 Dextrose (D50w Syringe) 50 ml Q15M PRN IV DECREASED GLUCOSE; Start 06/18/16 at 13:00 Glucagon (Glucagen) 1 mg Q15M PRN IM DECREASED GLUCOSE; Start 06/18/16 at 13:00 Glucose (Glutose) 15 gm Q15M PRN BUCCAL DECREASED GLUCOSE; Start 06/18/16 at 13: 00 Baclofen (Lioresal) 5 mg BID PRN PO hiccups Last administered on 06/21/16 23: 21; Admin Dose 5 MG; Start 06/18/16 at 13:30 DONY HOWARD MD Jun 24, 2016 08:43
[2016-06-24] MEDS: PRASUGREL HYDROCHLORIDE 10 MG TABLET PO SCH (08:52)
[2016-06-24] MEDS: SEVELAMER 800 MG TAB PO SCH ×3 (08:53→21:13)
[2016-06-24] MEDS: CALCIUM ACETATE 667 MG CAP PO SCH ×3 (08:53→21:13)
[2016-06-24] MEDS: ASPIRIN (EC) 81 MG TAB PO SCH (08:53)
[2016-06-24] MEDS: LISINOPRIL 10 MG TAB PO SCH (09:00)
[2016-06-24] MEDS: ISOSORBIDE MONONITRATE(SR)60 MG TAB PO SCH (09:00)
[2016-06-24] MEDS: METOPROLOL (XL) 50 MG TAB PO SCH ×2 (09:00→21:09)
[2016-06-24] MEDS: metroNIDAZOLE 500 MG/NS (PMX) 100 ML IVPB SCH ×2 (14:16→21:25)
--- NOTE | 2016-06-24 15:05 | PN ---
DATE: SUBJECTIVE: No acute changes overnight. The patient is awake. Complaining of still having loose s tools. He is in no distress. No fevers. He has left chest Port-A-Cath and right chest Perma-Cath. ANTIMICROBIALS: He is on oral vancomycin. PHYSICAL EXAMINATION: GENERAL: This is a chronically ill-appearing, middle-aged white man who is legally blind. The yaneli ent is in no distress. HEENT: Head atraumatic, normocephalic. Sclerae anicteric. Buccal mucosa dry. NECK: Supple, trachea midline. CHEST: Rise symmetrical. Breath sounds diminished at the bases. HEART: S1, S2. ABDOMEN: Soft, bowel sounds present. EXTREMITIES: Without cyanosis. ASSESSMENT: 1. Clostridium difficile colitis. 2. Anemia. 3. End-stage renal disease. 4. Hypertension. 5. The patient is legally blind. 6. Diabetes. PLAN: The patient remains stable. He is complaining of oral vancomycin not helping him and wants s ome IV antibiotics because of the bad taste of oral vancomycin. We are going to start him on IV Fla gyl. Order probiotics and repeat stool for C. difficile. Dictated By: BIJAN LONGO [employer] Conf#: [id number] DID#: [id number]
--- NOTE | 2016-06-24 17:43 | PN ---
Date/Time of Note Date/Time of Note DATE: 06/24/16 TIME: 17:41 Assessment/Plan VTE Prophylaxis VTE Prophylaxis Intervention: SCD's Lines/Catheters IV [facility]ter [facility] (from [facility]): PERMA CATH Urinary Cath still in place: No Assessment/Plan Chief Complaint/Hosp Course ASSESSMENT AND PLAN: 1. Clostridium difficile colitis. Continue patient on p.o. vancomycin. Continue contact isolation. 2. End-stage renal disease. Patient is followed by Dr. Hubbard in nephrology consultation. The patient is continued on dialysis. 3. Hyperkalemia. We will monitor potassium level. We will remove potassium with hemodialysis. 4. Diabetes mellitus. The patient has an insulin pump. Continue to monitor blood sugar. 5. Dyslipidemia by history. Continue statin. 6. Coronary artery disease status post in-stent thrombosis, left anterior descending, status post percutaneous coronary intervention. Continue patient on aspirin and metoprolol. 7. Hypertension. Continue patient on clonidine. Continue lisinopril and Toprol XL. Continue Protonix for peptic ulcer disease prophylaxis. Further recommendations based on clinical course Further recommendations based on clinical course. Plan of care discussed with Dr. Rosales. Problems: Subjective 24 Hr Interval Summary Free Text/Dictation Patient's complains of having diarrhea yesterday and today. No nausea vomiting reported no fever. Exam/Review of Systems Vital Signs Vitals Vital Signs Date Time Temp Pulse Resp B/P Pulse Ox O2 Delivery O2 Flow Rate FiO2 06/24/16 08:13 97.5 18 136/77 99 06/23/16 19:11 91 Intake and Output 06/23/16 06/23/16 06/24/16 15:00 23:00 07:00 Intake Total 500 ml 480 ml 340 ml Output Total 1000 ml 600 ml Balance -500 ml 480 ml -260 ml Exam GENERAL: Well-developed, well-nourished gentleman in no acute distress. HEENT: Head is atraumatic, normocephalic. Patient has a right hyperesthesia left eye. Pupils equal, round, reactive to light and accommodation. NECK: Supple, no mass or thyromegaly. LUNGS: Clear bilaterally. HEART: Normal S1, S2. No murmurs, gallops, clicks, rubs noted. ABDOMEN: Round, soft, nondistended, nontender. Bowel sounds present. EXTREMITIES: No edema, clubbing, cyanosis. Pulses equal bilaterally 2+. The patient has bilateral upper extremity arteriovenous fistula. SKIN: There is no rash, petechiae noted. Patient has multiple tattoos with upper and lower extremities and trunk. NEUROLOGIC: Alert and oriented 3. Right chest PermCath. Results Result Diagram: 06/23/16 0508 06/24/16 0527 Results 24 hrs Laboratory Tests Test 06/23/16 18:04 06/23/16 23:36 06/24/16 01:56 06/24/16 05:27 Bedside Glucose 285 H 399 H 210 Alanine Aminotransferase (ALT/SGPT) 34 Albumin 3.5 Albumin/Globulin Ratio 1.20 Alkaline Phosphatase 177 H Anion Gap 21 H Aspartate Amino Transf (AST/SGOT) 29 Blood Urea Nitrogen 58 H Calcium Level 7.5 L Carbon Dioxide Level 25 Chloride Level 94 L Creatinine 7.92 H Direct Bilirubin 0.00 Globulin 2.90 Glucose Level 132 # Indirect Bilirubin 0.0 Potassium Level 5.2 H Sodium Level 135 Total Bilirubin 0.0 L Total Protein 6.4 Test 06/24/16 07:50 06/24/16 12:06 06/24/16 13:57 06/24/16 17:09 Bedside Glucose 95 237 H 274 H 194 Medications Medications Current Medications Prasugrel (Effient) 10 mg DAILY PO Last administered on 06/24/16 08:52; Admin Dose 10 MG; Start 06/17/16 at 10:30 Metoprolol Succinate (Toprol Xl) 50 mg BID PO Last administered on 06/23/16 21: 09; Admin Dose 50 MG; Start 06/17/16 at 09:00 Atorvastatin Calcium (Lipitor) 80 mg HS PO Last administered on 06/23/16 21:08 ; Admin Dose 80 MG; Start 06/17/16 at 21:00 Lorazepam (Ativan) 2 mg HS PRN PO INSOMNIA Last administered on 06/23/16 21:52 ; Admin Dose 2 MG; Start 06/17/16 at 08:30 Aspirin (Halfprin) 81 mg DAILY PO Last administered on 06/24/16 08:53; Admin Dose 81 MG; Start 06/17/16 at 09:00 Lisinopril (Zestril) 10 mg DAILY PO Last administered on 06/22/16 08:42; Admin Dose 10 MG; Start 06/17/16 at 09:00 Pramipexole (Mirapex) 0.25 mg HS PO Last administered on 06/23/16 21:08; Admin Dose 0.25 MG; Start 06/17/16 at 21:00 Pantoprazole (Protonix Tab) 40 mg DAILY@06 PO Last administered on 06/24/16 06 :10; Admin Dose 40 MG; Start 06/18/16 at 06:00 Ondansetron HCl (Zofran Inj) 4 mg Q6H PRN IV NAUSEA AND/OR VOMITING Last administered on 06/24/16 03:11; Admin Dose 4 MG; Start 06/17/16 at 08:30 Vancomycin HCl (Vancomycin Oral Syringe) 125 mg Q6 PO Last administered on 06/24 12:34; Admin Dose 125 MG; Start 06/17/16 at 12:00 Isosorbide Mononitrate (Imdur) 60 mg DAILY PO Last administered on 06/23/16 09: 53; Admin Dose 60 MG; Start 06/17/16 at 09:00 Diphenhydramine HCl (Benadryl) 50 mg Q6H PRN IV ITCHING Last administered on 14:59; Admin Dose 50 MG; Start 06/17/16 at 09:30 Hydromorphone HCl (Dilaudid) 1 mg Q3H PRN IV PAIN Last administered on 14:59; Admin Dose 1 MG; Start 06/17/16 at 12:30 Clonidine (Catapres) 0.1 mg Q6H PRN PO SBP > 160mmHg Last administered on 05:36; Admin Dose 0.1 MG; Start 06/18/16 at 00:00 Diagnostic Test (Pha) (Accucheck) 1 ea 02 XX Last administered on 06/24/16 02: 13; Admin Dose 1 EA; Start 06/19/16 at 02:00 Miscellaneous Information 1 ea NOTE XX ; Start 06/18/16 at 13:00 Glucose (Glutose) 15 gm Q15M PRN PO DECREASED GLUCOSE; Start 06/18/16 at 13:00 Glucose (Glutose) 22.5 gm Q15M PRN PO DECREASED GLUCOSE; Start 06/18/16 at 13:00 Dextrose (D50w Syringe) 25 ml Q15M PRN IV DECREASED GLUCOSE Last administered on 06/20/16 08:14; Admin Dose 25 ML; Start 06/18/16 at 13:00 Dextrose (D50w Syringe) 50 ml Q15M PRN IV DECREASED GLUCOSE; Start 06/18/16 at 13:00 Glucagon (Glucagen) 1 mg Q15M PRN IM DECREASED GLUCOSE; Start 06/18/16 at 13:00 Glucose (Glutose) 15 gm Q15M PRN BUCCAL DECREASED GLUCOSE; Start 06/18/16 at 13: 00 Baclofen 5 mg 5 mg BID PRN PO hiccups Last administered on 06/21/16 23:21; Admin Dose 5 MG; Start 06/18/16 at 13:30 Metronidazole (Flagyl 500 Mg (Pmx)) 100 ml @ 100 mls/hr Q8 IVPB Last administered on 06/24/16 14:16; Admin Dose 100 MLS/HR; Start 06/24/16 at 14:00 Lactobacillus Acidoph/Bulgaricus (Floranex) 1 tab TID PO ; Start 06/24/16 at 21: 00 ANGELINA CASTREJON Jun 24, 2016 17:43
[2016-06-24 19:35] VITALS: BP 175/91; RESP 18
[2016-06-24] MEDS: DIPHENHYDRAMINE 50 MG INJ IV SCH (21:03)
[2016-06-24] MEDS: ATORVASTATIN 80 MG TAB PO SCH (21:08)
[2016-06-24] MEDS: PRAMIPEXOLE 0.25 MG TAB PO SCH (21:09)
[2016-06-24] MEDS: LACTOBACILLUS CHEW TAB PO SCH (21:09)
[2016-06-24] MEDS: BACLOFEN 10 MG TAB PO PRN (21:23)
[2016-06-24] MEDS: LORAZEPAM 1 MG TAB PO PRN (21:23)
[2016-06-25] VITALS (11 sets, daily range): BP systolic 113–164; BP diastolic 77–150; PULSE 80–97; RESP 16–18
[2016-06-25] MEDS: LORAZEPAM 2 MG INJ IV SCH (00:23)
[2016-06-25] MEDS: DIPHENHYDRAMINE 50 MG INJ IV SCH (00:26)
[2016-06-25] MEDS: ACCUCHECK XX SCH (02:00)
[2016-06-25] MEDS: DIPHENHYDRAMINE 50 MG INJ IV PRN ×4 (03:05→21:13)
[2016-06-25] MEDS: HYDROmorphONE 1 MG/ML SYG IV PRN ×7 (03:05→21:13)
[2016-06-25] MEDS: VANCOMYCIN HCL 250 MG/5ML POSYG PO SCH ×4 (03:09→18:06)
[2016-06-25] MEDS: PANTOPRAZOLE (EC) 40 MG TAB PO SCH (05:56)
[2016-06-25] MEDS: metroNIDAZOLE 500 MG/NS (PMX) 100 ML IVPB SCH ×3 (05:56→21:40)
[2016-06-25] MEDS: PRASUGREL HYDROCHLORIDE 10 MG TABLET PO SCH (09:08)
[2016-06-25] MEDS: ISOSORBIDE MONONITRATE(SR)60 MG TAB PO SCH (09:08)
[2016-06-25] MEDS: CALCIUM ACETATE 667 MG CAP PO SCH ×3 (09:08→18:06)
[2016-06-25] MEDS: METOPROLOL (XL) 50 MG TAB PO SCH ×2 (09:09→21:41)
[2016-06-25] MEDS: LACTOBACILLUS CHEW TAB PO SCH ×3 (09:09→21:40)
[2016-06-25] MEDS: LISINOPRIL 10 MG TAB PO SCH (09:09)
[2016-06-25] MEDS: ASPIRIN (EC) 81 MG TAB PO SCH (09:09)
[2016-06-25] MEDS: SEVELAMER 800 MG TAB PO SCH ×3 (09:09→18:06)
--- NOTE | 2016-06-25 13:40 | PN ---
Date/Time of Note Date/Time of Note DATE: 06/25/16 TIME: 13:39 Assessment/Plan VTE Prophylaxis VTE Prophylaxis Intervention: SCD's Lines/Catheters IV C[facility]ter Type (from [facility]): perma catheter Urinary Cath still in place: No Assessment/Plan Chief Complaint/Hosp Course ASSESSMENT AND PLAN: 1. Clostridium difficile colitis. Continue patient on p.o. vancomycin. Continue contact isolation. 2. End-stage renal disease. Patient is followed by Dr. Hubbard in nephrology consultation. The patient is continued on dialysis. 3. Hyperkalemia. We will monitor potassium level. We will remove potassium with hemodialysis. 4. Diabetes mellitus. The patient has an insulin pump. Continue to monitor blood sugar. 5. Dyslipidemia by history. Continue statin. 6. Coronary artery disease status post in-stent thrombosis, left anterior descending, status post percutaneous coronary intervention. Continue patient on aspirin and metoprolol. 7. Hypertension. Continue patient on clonidine. Continue lisinopril and Toprol XL. Continue Protonix for peptic ulcer disease prophylaxis. Further recommendations based on clinical course Further recommendations based on clinical course. Plan of care discussed with Dr. Rosales. Problems: Subjective 24 Hr Interval Summary Free Text/Dictation Patient still complains of diarrhea however states it has decreased in frequency. Exam/Review of Systems Vital Signs Vitals Vital Signs Date Time Temp Pulse Resp B/P Pulse Ox O2 Delivery O2 Flow Rate FiO2 06/25/16 08:00 97.5 77 16 143/77 90 Intake and Output 06/24/16 06/24/16 06/25/16 15:00 23:00 07:00 Intake Total 1280 ml 1440 ml Output Total 550 ml 3400 ml Balance 730 ml -1960 ml Exam GENERAL: Well-developed, well-nourished gentleman in no acute distress. HEENT: Head is atraumatic, normocephalic. Patient has a right hyperesthesia left eye. Left pupil is equal, round, reactive to light and accommodation. NECK: Supple, no mass or thyromegaly. LUNGS: Clear bilaterally. HEART: Normal S1, S2. No murmurs, gallops, clicks, rubs noted. ABDOMEN: Round, soft, nondistended, nontender. Bowel sounds present. EXTREMITIES: No edema, clubbing, cyanosis. Pulses equal bilaterally 2+. The patient has bilateral upper extremity arteriovenous fistula. SKIN: There is no rash, petechiae noted. Patient has multiple tattoos with upper and lower extremities and trunk. NEUROLOGIC: Alert and oriented 3. Right chest PermCath. Results Result Diagram: 06/23/16 0508 06/24/16 0527 Results 24 hrs Laboratory Tests Test 06/24/16 13:57 06/24/16 17:09 06/24/16 22:16 06/25/16 07:48 Bedside Glucose 274 H 194 169 276 H Test 06/25/16 11:54 Bedside Glucose 282 H Medications Medications Current Medications Prasugrel (Effient) 10 mg DAILY PO Last administered on 06/25/16 09:08; Admin Dose 10 MG; Start 06/17/16 at 10:30 Metoprolol Succinate (Toprol Xl) 50 mg BID PO Last administered on 06/25/16 09 :09; Admin Dose 50 MG; Start 06/17/16 at 09:00 Atorvastatin Calcium (Lipitor) 80 mg HS PO Last administered on 06/24/16 21:08 ; Admin Dose 80 MG; Start 06/17/16 at 21:00 Lorazepam (Ativan) 2 mg HS PRN PO INSOMNIA Last administered on 06/24/16 21:23 ; Admin Dose 2 MG; Start 06/17/16 at 08:30 Aspirin (Halfprin) 81 mg DAILY PO Last administered on 06/25/16 09:09; Admin Dose 81 MG; Start 06/17/16 at 09:00 Lisinopril (Zestril) 10 mg DAILY PO Last administered on 06/25/16 09:09; Admin Dose 10 MG; Start 06/17/16 at 09:00 Pramipexole (Mirapex) 0.25 mg HS PO Last administered on 06/24/16 21:09; Admin Dose 0.25 MG; Start 06/17/16 at 21:00 Pantoprazole (Protonix Tab) 40 mg DAILY@06 PO Last administered on 06/25/16 05 :56; Admin Dose 40 MG; Start 06/18/16 at 06:00 Ondansetron HCl (Zofran Inj) 4 mg Q6H PRN IV NAUSEA AND/OR VOMITING Last administered on 06/24/16 20:36; Admin Dose 4 MG; Start 06/17/16 at 08:30 Vancomycin HCl (Vancomycin Oral Syringe) 125 mg Q6 PO Last administered on 06/25 11:56; Admin Dose 125 MG; Start 06/17/16 at 12:00 Isosorbide Mononitrate (Imdur) 60 mg DAILY PO Last administered on 06/25/16 09 :08; Admin Dose 60 MG; Start 06/17/16 at 09:00 Diphenhydramine HCl (Benadryl) 50 mg Q6H PRN IV ITCHING Last administered on 09:13; Admin Dose 50 MG; Start 06/17/16 at 09:30 Hydromorphone HCl (Dilaudid) 1 mg Q3H PRN IV PAIN Last administered on 12:00; Admin Dose 1 MG; Start 06/17/16 at 12:30 Clonidine (Catapres) 0.1 mg Q6H PRN PO SBP > 160mmHg Last administered on 05:36; Admin Dose 0.1 MG; Start 06/18/16 at 00:00 Diagnostic Test (Pha) (Accucheck) 1 ea 02 XX Last administered on 06/24/16 02: 13; Admin Dose 1 EA; Start 06/19/16 at 02:00 Miscellaneous Information 1 ea NOTE XX ; Start 06/18/16 at 13:00 Glucose (Glutose) 15 gm Q15M PRN PO DECREASED GLUCOSE; Start 06/18/16 at 13:00 Glucose (Glutose) 22.5 gm Q15M PRN PO DECREASED GLUCOSE; Start 06/18/16 at 13:00 Dextrose (D50w Syringe) 25 ml Q15M PRN IV DECREASED GLUCOSE Last administered on 06/20/16 08:14; Admin Dose 25 ML; Start 06/18/16 at 13:00 Dextrose (D50w Syringe) 50 ml Q15M PRN IV DECREASED GLUCOSE; Start 06/18/16 at 13:00 Glucagon (Glucagen) 1 mg Q15M PRN IM DECREASED GLUCOSE; Start 06/18/16 at 13:00 Glucose (Glutose) 15 gm Q15M PRN BUCCAL DECREASED GLUCOSE; Start 06/18/16 at 13: 00 Baclofen 5 mg 5 mg BID PRN PO hiccups Last administered on 06/24/16 21:23; Admin Dose 5 MG; Start 06/18/16 at 13:30 Metronidazole (Flagyl 500 Mg (Pmx)) 100 ml @ 100 mls/hr Q8 IVPB Last administered on 06/25/16 05:56; Admin Dose 100 MLS/HR; Start 06/24/16 at 14:00 Lactobacillus Acidoph/Bulgaricus (Floranex) 1 tab TID PO Last administered on 09:09; Admin Dose 1 TAB; Start 06/24/16 at 21:00 ANGELINA CASTREJON Jun 25, 2016 13:40
--- NOTE | 2016-06-25 14:03 | CONS ---
Date/Time of Note Date/Time of Note DATE: 06/25/16 TIME: 14:02 Consult Date/Type/Reason Admit Date/Time Jun 19, 2016 at 13:42 Initial Consult Date Type of Consultation: ID Subjective no events, awake, looks comfortable, no diarrhea today Objective Vital Signs Date Time Temp Pulse Resp B/P Pulse Ox O2 Delivery O2 Flow Rate FiO2 06/25/16 08:00 97.5 77 16 143/77 90 Intake and Output 06/24/16 06/24/16 06/25/16 15:00 23:00 07:00 Intake Total 1280 ml 1440 ml Output Total 550 ml 3400 ml Balance 730 ml -1960 ml Results/Medications Result Diagram: 06/23/16 0508 06/24/16 0527 Results 24 hrs Laboratory Tests Test 06/24/16 17:09 06/24/16 22:16 06/25/16 07:48 06/25/16 11:54 Bedside Glucose 194 169 276 H 282 H Medications Current Medications Prasugrel (Effient) 10 mg DAILY PO Last administered on 06/25/16 09:08; Admin Dose 10 MG; Start 06/17/16 at 10:30 Metoprolol Succinate (Toprol Xl) 50 mg BID PO Last administered on 06/25/16 09 :09; Admin Dose 50 MG; Start 06/17/16 at 09:00 Atorvastatin Calcium (Lipitor) 80 mg HS PO Last administered on 06/24/16 21:08 ; Admin Dose 80 MG; Start 06/17/16 at 21:00 Lorazepam (Ativan) 2 mg HS PRN PO INSOMNIA Last administered on 06/24/16 21:23 ; Admin Dose 2 MG; Start 06/17/16 at 08:30 Aspirin (Halfprin) 81 mg DAILY PO Last administered on 06/25/16 09:09; Admin Dose 81 MG; Start 06/17/16 at 09:00 Lisinopril (Zestril) 10 mg DAILY PO Last administered on 06/25/16 09:09; Admin Dose 10 MG; Start 06/17/16 at 09:00 Pramipexole (Mirapex) 0.25 mg HS PO Last administered on 06/24/16 21:09; Admin Dose 0.25 MG; Start 06/17/16 at 21:00 Pantoprazole (Protonix Tab) 40 mg DAILY@06 PO Last administered on 06/25/16 05 :56; Admin Dose 40 MG; Start 06/18/16 at 06:00 Ondansetron HCl (Zofran Inj) 4 mg Q6H PRN IV NAUSEA AND/OR VOMITING Last administered on 06/24/16 20:36; Admin Dose 4 MG; Start 06/17/16 at 08:30 Vancomycin HCl (Vancomycin Oral Syringe) 125 mg Q6 PO Last administered on 06/25 11:56; Admin Dose 125 MG; Start 06/17/16 at 12:00 Isosorbide Mononitrate (Imdur) 60 mg DAILY PO Last administered on 06/25/16 09 :08; Admin Dose 60 MG; Start 06/17/16 at 09:00 Diphenhydramine HCl (Benadryl) 50 mg Q6H PRN IV ITCHING Last administered on 09:13; Admin Dose 50 MG; Start 06/17/16 at 09:30 Hydromorphone HCl (Dilaudid) 1 mg Q3H PRN IV PAIN Last administered on 12:00; Admin Dose 1 MG; Start 06/17/16 at 12:30 Clonidine (Catapres) 0.1 mg Q6H PRN PO SBP > 160mmHg Last administered on 05:36; Admin Dose 0.1 MG; Start 06/18/16 at 00:00 Diagnostic Test (Pha) (Accucheck) 1 ea 02 XX Last administered on 06/24/16 02: 13; Admin Dose 1 EA; Start 06/19/16 at 02:00 Miscellaneous Information 1 ea NOTE XX ; Start 06/18/16 at 13:00 Glucose (Glutose) 15 gm Q15M PRN PO DECREASED GLUCOSE; Start 06/18/16 at 13:00 Glucose (Glutose) 22.5 gm Q15M PRN PO DECREASED GLUCOSE; Start 06/18/16 at 13:00 Dextrose (D50w Syringe) 25 ml Q15M PRN IV DECREASED GLUCOSE Last administered on 06/20/16 08:14; Admin Dose 25 ML; Start 06/18/16 at 13:00 Dextrose (D50w Syringe) 50 ml Q15M PRN IV DECREASED GLUCOSE; Start 06/18/16 at 13:00 Glucagon (Glucagen) 1 mg Q15M PRN IM DECREASED GLUCOSE; Start 06/18/16 at 13:00 Glucose (Glutose) 15 gm Q15M PRN BUCCAL DECREASED GLUCOSE; Start 06/18/16 at 13: 00 Baclofen 5 mg 5 mg BID PRN PO hiccups Last administered on 06/24/16 21:23; Admin Dose 5 MG; Start 06/18/16 at 13:30 Metronidazole (Flagyl 500 Mg (Pmx)) 100 ml @ 100 mls/hr Q8 IVPB Last administered on 06/25/16 13:51; Admin Dose 100 MLS/HR; Start 06/24/16 at 14:00 Lactobacillus Acidoph/Bulgaricus (Floranex) 1 tab TID PO Last administered on 13:51; Admin Dose 1 TAB; Start 06/24/16 at 21:00 Assessment/Plan Chief Complaint/Hosp Course ANTIMICROBIALS: Oral vancomycin and IV Flagyl. PHYSICAL EXAMINATION: GENERAL: This is a chronically ill-appearing, middle-aged white man who is legally blind. The patient is in no distress. HEENT: Head atraumatic, normocephalic. Sclerae anicteric. Buccal mucosa dry. NECK: Supple, trachea midline. CHEST: Rise symmetrical. Breath sounds diminished at the bases. HEART: S1, S2. ABDOMEN: Soft, bowel sounds present. EXTREMITIES: Without cyanosis. ASSESSMENT: 1. Clostridium difficile colitis. 2. Anemia. 3. End-stage renal disease. 4. Hypertension. 5. The patient is legally blind. 6. Diabetes. PLAN: Improving, continue abx, f/u repeat stool cx [facility] staff Problems: BIJAN LONGO NP Jun 25, 2016 14:03
--- NOTE | 2016-06-25 19:09 | CONS ---
Date/Time of Note Date/Time of Note DATE: 06/25/16 TIME: 19:06 Assessment/Plan Assessment/Plan Chief Complaint/Hosp Course 1. ESRD , I will order dialysis for tomorrow for 3 1/2 hours . 2. diarrhea , his stool is C Difficle positive , he is getting Vancomycin orally , he is improving. 3. DM . . 4. Hypertension 5. Anemia of chronic kidney disease 6. Chronic pain syndrome Problems: Consultation Date/Type/Reason Admit Date/Time Jun 19, 2016 at 13:42 Type of Consultation: ID [id number] HR Interval Summary Free Text/Dictation Says that the diarrhea has been decreasing. He has not had any vomiting or nausea. Constitutional: improved, no complaints Exam/Review of Systems Vital Signs Vitals Vital Signs Date Time Temp Pulse Resp B/P Pulse Ox O2 Delivery O2 Flow Rate FiO2 06/25/16 08:00 97.5 77 16 143/77 90 Intake and Output 06/24/16 06/24/16 06/25/16 15:00 23:00 07:00 Intake Total 1280 ml 1440 ml Output Total 550 ml 3400 ml Balance 730 ml -1960 ml Exam Constitutional: alert, oriented, well developed Psych: nl mood/affect, no complaints Respiratory: clear to auscultation, normal air movement Cardiovascular: regular rate and rhythm Musculoskeletal: nl extremities to inspection Results Result Diagram: 06/23/16 0508 06/24/16 0527 Results 24 hrs Laboratory Tests Test 06/24/16 22:16 06/25/16 07:48 06/25/16 11:54 06/25/16 17:17 Bedside Glucose 169 276 H 282 H 184 Medications Medications Current Medications Prasugrel (Effient) 10 mg DAILY PO Last administered on 06/25/16 09:08; Admin Dose 10 MG; Start 06/17/16 at 10:30 Metoprolol Succinate (Toprol Xl) 50 mg BID PO Last administered on 06/25/16 09 :09; Admin Dose 50 MG; Start 06/17/16 at 09:00 Atorvastatin Calcium (Lipitor) 80 mg HS PO Last administered on 06/24/16 21:08 ; Admin Dose 80 MG; Start 06/17/16 at 21:00 Lorazepam (Ativan) 2 mg HS PRN PO INSOMNIA Last administered on 06/24/16 21:23 ; Admin Dose 2 MG; Start 06/17/16 at 08:30 Aspirin (Halfprin) 81 mg DAILY PO Last administered on 06/25/16 09:09; Admin Dose 81 MG; Start 06/17/16 at 09:00 Lisinopril (Zestril) 10 mg DAILY PO Last administered on 06/25/16 09:09; Admin Dose 10 MG; Start 06/17/16 at 09:00 Pramipexole (Mirapex) 0.25 mg HS PO Last administered on 06/24/16 21:09; Admin Dose 0.25 MG; Start 06/17/16 at 21:00 Pantoprazole (Protonix Tab) 40 mg DAILY@06 PO Last administered on 06/25/16 05 :56; Admin Dose 40 MG; Start 06/18/16 at 06:00 Ondansetron HCl (Zofran Inj) 4 mg Q6H PRN IV NAUSEA AND/OR VOMITING Last administered on 06/24/16 20:36; Admin Dose 4 MG; Start 06/17/16 at 08:30 Vancomycin HCl (Vancomycin Oral Syringe) 125 mg Q6 PO Last administered on 06/25 18:06; Admin Dose 125 MG; Start 06/17/16 at 12:00 Isosorbide Mononitrate (Imdur) 60 mg DAILY PO Last administered on 06/25/16 09 :08; Admin Dose 60 MG; Start 06/17/16 at 09:00 Diphenhydramine HCl (Benadryl) 50 mg Q6H PRN IV ITCHING Last administered on 14:59; Admin Dose 50 MG; Start 06/17/16 at 09:30 Hydromorphone HCl (Dilaudid) 1 mg Q3H PRN IV PAIN Last administered on 18:08; Admin Dose 1 MG; Start 06/17/16 at 12:30 Clonidine (Catapres) 0.1 mg Q6H PRN PO SBP > 160mmHg Last administered on 05:36; Admin Dose 0.1 MG; Start 06/18/16 at 00:00 Diagnostic Test (Pha) (Accucheck) 1 ea 02 XX Last administered on 06/24/16 02: 13; Admin Dose 1 EA; Start 06/19/16 at 02:00 Miscellaneous Information 1 ea NOTE XX ; Start 06/18/16 at 13:00 Glucose (Glutose) 15 gm Q15M PRN PO DECREASED GLUCOSE; Start 06/18/16 at 13:00 Glucose (Glutose) 22.5 gm Q15M PRN PO DECREASED GLUCOSE; Start 06/18/16 at 13:00 Dextrose (D50w Syringe) 25 ml Q15M PRN IV DECREASED GLUCOSE Last administered on 06/20/16 08:14; Admin Dose 25 ML; Start 06/18/16 at 13:00 Dextrose (D50w Syringe) 50 ml Q15M PRN IV DECREASED GLUCOSE; Start 06/18/16 at 13:00 Glucagon (Glucagen) 1 mg Q15M PRN IM DECREASED GLUCOSE; Start 06/18/16 at 13:00 Glucose (Glutose) 15 gm Q15M PRN BUCCAL DECREASED GLUCOSE; Start 06/18/16 at 13: 00 Baclofen 5 mg 5 mg BID PRN PO hiccups Last administered on 06/24/16 21:23; Admin Dose 5 MG; Start 06/18/16 at 13:30 Metronidazole (Flagyl 500 Mg (Pmx)) 100 ml @ 100 mls/hr Q8 IVPB Last administered on 06/25/16 13:51; Admin Dose 100 MLS/HR; Start 06/24/16 at 14:00 Lactobacillus Acidoph/Bulgaricus (Floranex) 1 tab TID PO Last administered on 13:51; Admin Dose 1 TAB; Start 06/24/16 at 21:00 DONY HOWARD MD Jun 25, 2016 19:09
[2016-06-25] MEDS: ONDANSETRON 4 MG INJ IV PRN (21:09)
[2016-06-25] MEDS: ATORVASTATIN 80 MG TAB PO SCH (21:40)
[2016-06-25] MEDS: LORAZEPAM 1 MG TAB PO PRN (21:40)
[2016-06-25] MEDS: BACLOFEN 10 MG TAB PO PRN (21:50)
[2016-06-25] MEDS: PRAMIPEXOLE 0.25 MG TAB PO SCH (21:50)
[2016-06-26] VITALS (11 sets, daily range): BP systolic 109–146; BP diastolic 74–88; PULSE 78–92; RESP 16–18
[2016-06-26] MEDS: VANCOMYCIN HCL 250 MG/5ML POSYG PO SCH ×4 (00:02→17:31)
[2016-06-26] MEDS: HYDROmorphONE 1 MG/ML SYG IV PRN ×8 (00:02→21:26)
[2016-06-26] MEDS: ACCUCHECK XX SCH (02:00)
[2016-06-26] MEDS: DIPHENHYDRAMINE 50 MG INJ IV PRN ×2 (03:10→21:25)
[2016-06-26 06:01] LABS: BASOPHIL # 0.1 10^3/ul (0.0-0.1); BASOPHILS % 0.8 % (0.0-2.0); EOSINOPHILS # 0.6 10^3/ul (0.0-0.5); EOSINOPHILS % 8.1 % (0.0-7.0); HEMATOCRIT 34.6 % (42.0-52.0); HEMOGLOBIN 11.4 g/dl (14.0-18.0); LYMPHOCYTES # 1.3 10^3/ul (0.8-2.9); LYMPHOCYTES % 17.3 % (15.0-51.0); MEAN CORPUSCULAR HEMOGLOBIN 30.2 pg (29.0-33.0); MEAN CORPUSCULAR VOLUME 91.4 fl (82.0-101.0); MEAN PLATELET VOLUME 9.8 fl (7.4-10.4); MONOCYTE # 0.5 10^3/ul (0.3-0.9); MONOCYTES % 7.4 % (0.0-11.0); NEUTROPHIL # 4.9 10^3/ul (1.6-7.5); NEUTROPHILS % 66.4 % (39.0-77.0); PLATELET COUNT 161 10^3/UL (140-440); RED BLOOD COUNT 3.78 10^6/ul (4.70-6.10); RED CELL DISTRIBUTION WIDTH 16.7 % (11.5-14.5); UNCORRECTED WBC 7.4 10^3/ul (4.8-10.8); WHITE BLOOD COUNT 7.4 10^3/ul (4.8-10.8)
[2016-06-26 06:10] LABS: CONDITION 1; LH ANALYZER COMMENTS 1
[2016-06-26] MEDS: PANTOPRAZOLE (EC) 40 MG TAB PO SCH (06:13)
[2016-06-26] MEDS: LORAZEPAM 2 MG INJ IV SCH (06:13)
[2016-06-26] MEDS: DIPHENHYDRAMINE 50 MG INJ IV SCH (06:13)
[2016-06-26 06:26] LABS: CREATININE 8.37 mg/dl (0.61-1.24)
[2016-06-26 06:27] LABS: CALCIUM 7.8 mg/dl (8.4-10.2)
[2016-06-26 06:30] LABS: POTASSIUM 6.6 mmol/L (3.5-5.1)
[2016-06-26] MEDS: CALCIUM ACETATE 667 MG CAP PO SCH ×3 (09:14→17:30)
[2016-06-26] MEDS: SEVELAMER 800 MG TAB PO SCH ×3 (09:14→17:31)
[2016-06-26] MEDS: metroNIDAZOLE 500 MG/NS (PMX) 100 ML IVPB SCH ×3 (09:14→21:54)
[2016-06-26] MEDS: LACTOBACILLUS CHEW TAB PO SCH ×3 (09:17→21:53)
[2016-06-26] MEDS: PRASUGREL HYDROCHLORIDE 10 MG TABLET PO SCH (09:17)
[2016-06-26] MEDS: ASPIRIN (EC) 81 MG TAB PO SCH (09:17)
[2016-06-26] MEDS: ISOSORBIDE MONONITRATE(SR)60 MG TAB PO SCH (09:20)
[2016-06-26] MEDS: LISINOPRIL 10 MG TAB PO SCH (09:21)
[2016-06-26] MEDS: METOPROLOL (XL) 50 MG TAB PO SCH ×2 (09:21→21:55)
--- NOTE | 2016-06-26 13:24 | CONS ---
Date/Time of Note Date/Time of Note DATE: 06/26/16 TIME: 13:20 Assessment/Plan Assessment/Plan Chief Complaint/Hosp Course 1. ESRD , He had hemodialysis this morning . His pre dialysis K was 6.6 . Not sure why the high K . This has been a chronic problem .will check potassium in am . 2. diarrhea , his stool is C Difficle positive , he is getting Vancomycin orally , he is improving. 3. DM . . 4. Hypertension 5. Anemia of chronic kidney disease 6. Chronic pain syndrome Problems: Consultation Date/Type/Reason Admit Date/Time Jun 19, 2016 at 13:42 Type of Consultation: ID 24 HR Interval Summary Free Text/Dictation He is feeling better . His K was 6.6 today .He had dialysis this morning . Constitutional: no complaints Exam/Review of Systems Vital Signs Vitals Vital Signs Date Time Temp Pulse Resp B/P Pulse Ox O2 Delivery O2 Flow Rate FiO2 06/26/16 08:45 78 06/26/16 08:17 97.7 16 109/76 97 Intake and Output 06/25/16 06/25/16 06/26/16 15:00 23:00 07:00 Intake Total 1420 ml 200 ml Output Total 1100 ml 100 ml Balance 320 ml 100 ml Exam Constitutional: alert, oriented, well developed Respiratory: clear to auscultation, normal air movement Cardiovascular: nl pulses, regular rate and rhythm Gastrointestinal: nl liver, spleen, non-tender, soft Musculoskeletal: nl extremities to inspection Results Result Diagram: 06/26/16 0532 06/26/16 0532 Results 24 hrs Laboratory Tests Test 06/25/16 17:17 06/25/16 21:39 06/26/16 05:32 06/26/16 08:00 Bedside Glucose 184 177 188 Anion Gap 22 H Basophils # 0.1 Basophils % 0.8 Blood Morphology Comment Blood Urea Nitrogen 62 H Calcium Level 7.8 L Carbon Dioxide Level 20 L Chloride Level 98 Creatinine 8.37 H Eosinophils # 0.6 H Eosinophils % 8.1 H Glucose Level 265 H Hematocrit 34.6 L Hemoglobin 11.4 L Lymphocytes # 1.3 Lymphocytes % 17.3 Mean Corpuscular Hemoglobin 30.2 Mean Corpuscular Hemoglobin Concent 33.0 Mean Corpuscular Volume 91.4 Mean Platelet Volume 9.8 Monocytes # 0.5 Monocytes % 7.4 Neutrophils # 4.9 Neutrophils % 66.4 Nucleated Red Blood Cells # 0.0 Nucleated Red Blood Cells % 0.0 Platelet Count 161 Potassium Level 6.6 *H Red Blood Count 3.78 L Red Cell Distribution Width 16.7 H Sodium Level 133 L White Blood Count 7.4 Test 06/26/16 12:19 Bedside Glucose 194 Medications Medications Current Medications Prasugrel (Effient) 10 mg DAILY PO Last administered on 06/26/16 09:17; Admin Dose 10 MG; Start 06/17/16 at 10:30 Metoprolol Succinate (Toprol Xl) 50 mg BID PO Last administered on 06/26/16 09 :21; Admin Dose 50 MG; Start 06/17/16 at 09:00 Atorvastatin Calcium (Lipitor) 80 mg HS PO Last administered on 06/25/16 21:40 ; Admin Dose 80 MG; Start 06/17/16 at 21:00 Lorazepam (Ativan) 2 mg HS PRN PO INSOMNIA Last administered on 06/25/16 21:40 ; Admin Dose 2 MG; Start 06/17/16 at 08:30 Aspirin (Halfprin) 81 mg DAILY PO Last administered on 06/26/16 09:17; Admin Dose 81 MG; Start 06/17/16 at 09:00 Lisinopril (Zestril) 10 mg DAILY PO Last administered on 06/26/16 09:21; Admin Dose 10 MG; Start 06/17/16 at 09:00 Pramipexole (Mirapex) 0.25 mg HS PO Last administered on 06/25/16 21:50; Admin Dose 0.25 MG; Start 06/17/16 at 21:00 Pantoprazole (Protonix Tab) 40 mg DAILY@06 PO Last administered on 06/26/16 06 :13; Admin Dose 40 MG; Start 06/18/16 at 06:00 Ondansetron HCl (Zofran Inj) 4 mg Q6H PRN IV NAUSEA AND/OR VOMITING Last administered on 06/25/16 21:09; Admin Dose 4 MG; Start 06/17/16 at 08:30 Vancomycin HCl (Vancomycin Oral Syringe) 125 mg Q6 PO Last administered on 06/26 12:22; Admin Dose 125 MG; Start 06/17/16 at 12:00 Isosorbide Mononitrate (Imdur) 60 mg DAILY PO Last administered on 06/26/16 09 :20; Admin Dose 60 MG; Start 06/17/16 at 09:00 Diphenhydramine HCl (Benadryl) 50 mg Q6H PRN IV ITCHING Last administered on 03:10; Admin Dose 50 MG; Start 06/17/16 at 09:30 Hydromorphone HCl (Dilaudid) 1 mg Q3H PRN IV PAIN Last administered on 12:14; Admin Dose 1 MG; Start 06/17/16 at 12:30 Clonidine (Catapres) 0.1 mg Q6H PRN PO SBP > 160mmHg Last administered on 05:36; Admin Dose 0.1 MG; Start 06/18/16 at 00:00 Diagnostic Test (Pha) (Accucheck) 1 ea 02 XX Last administered on 06/24/16 02: 13; Admin Dose 1 EA; Start 06/19/16 at 02:00 Miscellaneous Information 1 ea NOTE XX ; Start 06/18/16 at 13:00 Glucose (Glutose) 15 gm Q15M PRN PO DECREASED GLUCOSE; Start 06/18/16 at 13:00 Glucose (Glutose) 22.5 gm Q15M PRN PO DECREASED GLUCOSE; Start 06/18/16 at 13:00 Dextrose (D50w Syringe) 25 ml Q15M PRN IV DECREASED GLUCOSE Last administered on 06/20/16 08:14; Admin Dose 25 ML; Start 06/18/16 at 13:00 Dextrose (D50w Syringe) 50 ml Q15M PRN IV DECREASED GLUCOSE; Start 06/18/16 at 13:00 Glucagon (Glucagen) 1 mg Q15M PRN IM DECREASED GLUCOSE; Start 06/18/16 at 13:00 Glucose (Glutose) 15 gm Q15M PRN BUCCAL DECREASED GLUCOSE; Start 06/18/16 at 13: 00 Baclofen 5 mg 5 mg BID PRN PO hiccups Last administered on 06/25/16 21:50; Admin Dose 5 MG; Start 06/18/16 at 13:30 Metronidazole (Flagyl 500 Mg (Pmx)) 100 ml @ 100 mls/hr Q8 IVPB Last administered on 06/26/16 09:14; Admin Dose 100 MLS/HR; Start 06/24/16 at 14:00 Lactobacillus Acidoph/Bulgaricus (Floranex) 1 tab TID PO Last administered on 12:23; Admin Dose 1 TAB; Start 06/24/16 at 21:00 DONY HOWARD MD Jun 26, 2016 13:24
--- NOTE | 2016-06-26 14:47 | CONS ---
Date/Time of Note Date/Time of Note DATE: 06/26/16 TIME: 14:45 Consult Date/Type/Reason Admit Date/Time Jun 19, 2016 at 13:42 Type of Consultation: ID Subjective no events, looks comfortable, no fevers Objective Vital Signs Date Time Temp Pulse Resp B/P Pulse Ox O2 Delivery O2 Flow Rate FiO2 06/26/16 08:45 78 06/26/16 08:17 97.7 16 109/76 97 Intake and Output 06/25/16 06/25/16 06/26/16 15:00 23:00 07:00 Intake Total 1420 ml 200 ml Output Total 1100 ml 100 ml Balance 320 ml 100 ml Results/Medications Result Diagram: 06/26/16 0532 06/26/16 0532 Results 24 hrs Laboratory Tests Test 06/25/16 17:17 06/25/16 21:39 06/26/16 05:32 06/26/16 08:00 Bedside Glucose 184 177 188 Anion Gap 22 H Basophils # 0.1 Basophils % 0.8 Blood Morphology Comment Blood Urea Nitrogen 62 H Calcium Level 7.8 L Carbon Dioxide Level 20 L Chloride Level 98 Creatinine 8.37 H Eosinophils # 0.6 H Eosinophils % 8.1 H Glucose Level 265 H Hematocrit 34.6 L Hemoglobin 11.4 L Lymphocytes # 1.3 Lymphocytes % 17.3 Mean Corpuscular Hemoglobin 30.2 Mean Corpuscular Hemoglobin Concent 33.0 Mean Corpuscular Volume 91.4 Mean Platelet Volume 9.8 Monocytes # 0.5 Monocytes % 7.4 Neutrophils # 4.9 Neutrophils % 66.4 Nucleated Red Blood Cells # 0.0 Nucleated Red Blood Cells % 0.0 Platelet Count 161 Potassium Level 6.6 *H Red Blood Count 3.78 L Red Cell Distribution Width 16.7 H Sodium Level 133 L White Blood Count 7.4 Test 06/26/16 12:19 Bedside Glucose 194 Medications Current Medications Prasugrel (Effient) 10 mg DAILY PO Last administered on 06/26/16 09:17; Admin Dose 10 MG; Start 06/17/16 at 10:30 Metoprolol Succinate (Toprol Xl) 50 mg BID PO Last administered on 06/26/16 09 :21; Admin Dose 50 MG; Start 06/17/16 at 09:00 Atorvastatin Calcium (Lipitor) 80 mg HS PO Last administered on 06/25/16 21:40 ; Admin Dose 80 MG; Start 06/17/16 at 21:00 Lorazepam (Ativan) 2 mg HS PRN PO INSOMNIA Last administered on 06/25/16 21:40 ; Admin Dose 2 MG; Start 06/17/16 at 08:30 Aspirin (Halfprin) 81 mg DAILY PO Last administered on 06/26/16 09:17; Admin Dose 81 MG; Start 06/17/16 at 09:00 Lisinopril (Zestril) 10 mg DAILY PO Last administered on 06/26/16 09:21; Admin Dose 10 MG; Start 06/17/16 at 09:00 Pramipexole (Mirapex) 0.25 mg HS PO Last administered on 06/25/16 21:50; Admin Dose 0.25 MG; Start 06/17/16 at 21:00 Pantoprazole (Protonix Tab) 40 mg DAILY@06 PO Last administered on 06/26/16 06 :13; Admin Dose 40 MG; Start 06/18/16 at 06:00 Ondansetron HCl (Zofran Inj) 4 mg Q6H PRN IV NAUSEA AND/OR VOMITING Last administered on 06/25/16 21:09; Admin Dose 4 MG; Start 06/17/16 at 08:30 Vancomycin HCl (Vancomycin Oral Syringe) 125 mg Q6 PO Last administered on 06/26 12:22; Admin Dose 125 MG; Start 06/17/16 at 12:00 Isosorbide Mononitrate (Imdur) 60 mg DAILY PO Last administered on 06/26/16 09 :20; Admin Dose 60 MG; Start 06/17/16 at 09:00 Diphenhydramine HCl (Benadryl) 50 mg Q6H PRN IV ITCHING Last administered on 03:10; Admin Dose 50 MG; Start 06/17/16 at 09:30 Hydromorphone HCl (Dilaudid) 1 mg Q3H PRN IV PAIN Last administered on 12:14; Admin Dose 1 MG; Start 06/17/16 at 12:30 Clonidine (Catapres) 0.1 mg Q6H PRN PO SBP > 160mmHg Last administered on 05:36; Admin Dose 0.1 MG; Start 06/18/16 at 00:00 Diagnostic Test (Pha) (Accucheck) 1 ea 02 XX Last administered on 06/24/16 02: 13; Admin Dose 1 EA; Start 06/19/16 at 02:00 Miscellaneous Information 1 ea NOTE XX ; Start 06/18/16 at 13:00 Glucose (Glutose) 15 gm Q15M PRN PO DECREASED GLUCOSE; Start 06/18/16 at 13:00 Glucose (Glutose) 22.5 gm Q15M PRN PO DECREASED GLUCOSE; Start 06/18/16 at 13:00 Dextrose (D50w Syringe) 25 ml Q15M PRN IV DECREASED GLUCOSE Last administered on 06/20/16 08:14; Admin Dose 25 ML; Start 06/18/16 at 13:00 Dextrose (D50w Syringe) 50 ml Q15M PRN IV DECREASED GLUCOSE; Start 06/18/16 at 13:00 Glucagon (Glucagen) 1 mg Q15M PRN IM DECREASED GLUCOSE; Start 06/18/16 at 13:00 Glucose (Glutose) 15 gm Q15M PRN BUCCAL DECREASED GLUCOSE; Start 06/18/16 at 13: 00 Baclofen 5 mg 5 mg BID PRN PO hiccups Last administered on 06/25/16 21:50; Admin Dose 5 MG; Start 06/18/16 at 13:30 Metronidazole (Flagyl 500 Mg (Pmx)) 100 ml @ 100 mls/hr Q8 IVPB Last administered on 06/26/16 09:14; Admin Dose 100 MLS/HR; Start 06/24/16 at 14:00 Lactobacillus Acidoph/Bulgaricus (Floranex) 1 tab TID PO Last administered on 12:23; Admin Dose 1 TAB; Start 06/24/16 at 21:00 Assessment/Plan Chief Complaint/Hosp Course ANTIMICROBIALS: Oral vancomycin and IV Flagyl. PHYSICAL EXAMINATION: GENERAL: This is a chronically ill-appearing, middle-aged white man who is legally blind. The patient is in no distress. HEENT: Head atraumatic, normocephalic. Sclerae anicteric. Buccal mucosa dry. NECK: Supple, trachea midline. CHEST: Rise symmetrical. Breath sounds diminished at the bases. HEART: S1, S2. ABDOMEN: Soft, bowel sounds present. EXTREMITIES: Without cyanosis. ASSESSMENT: 1. Clostridium difficile colitis. 2. Anemia. 3. End-stage renal disease. 4. Hypertension. 5. The patient is legally blind. 6. Diabetes. PLAN: Continues to improve, repeat stool neg for C dif, diarrhea is better, ok dc on PO Vanco for 2 more weeks [facility] staff Problems: BIJAN LONGO NP Jun 26, 2016 14:47
[2016-06-26] MEDS: ONDANSETRON 4 MG INJ IV PRN ×2 (18:54→20:06)
[2016-06-26] MEDS: ATORVASTATIN 80 MG TAB PO SCH (21:53)
[2016-06-26] MEDS: PRAMIPEXOLE 0.25 MG TAB PO SCH (21:54)
--- NOTE | 2016-06-26 21:57 | PN ---
Date/Time of Note Date/Time of Note DATE: 06/26/16 TIME: 21:52 Assessment/Plan VTE Prophylaxis VTE Prophylaxis Intervention: SCD's Lines/Catheters IV Catheter Type (from [facility]): Perma Cath Urinary Cath still in place: No Assessment/Plan Assessment/Plan 1. Clostridium difficile colitis. - PER id - p.o. vancomycin. - contact isolation. 2. End-stage renal disease. - Per Dr. Hubbard in nephrology consultation. - HD 3. Hyperkalemia. - HD - MONITOR bmp 4. Diabetes mellitus. - glycemic control with patient insulin pump. Continue to monitor blood sugar. - Hyperglycemia- Echocardiology consult appreciated 5. Dyslipidemia by history. Continue statin. 6. Coronary artery disease status post in-stent thrombosis, left anterior descending, status post percutaneous coronary intervention. Continue patient on aspirin and metoprolol. 7. Hypertension. Continue patient on clonidine. Continue lisinopril and Toprol XL. Continue Protonix for peptic ulcer disease prophylaxis. Further recommendations based on clinical course Further recommendations based on clinical course. Plan of care discussed with Dr. Rosales. Subjective 24 Hr Interval Summary Eyes: no complaints ENT: no complaints Respiratory: no complaints Cardiovascular: no complaints Gastrointestinal: diarrhea Genitourinary: no complaints Musculoskeletal: no complaints Skin: no complaints Exam/Review of Systems Vital Signs Vitals Vital Signs Date Time Temp Pulse Resp B/P Pulse Ox O2 Delivery O2 Flow Rate FiO2 06/26/16 20:11 98.2 94 18 127/87 99 Intake and Output 06/25/16 06/25/16 06/26/16 15:00 23:00 07:00 Intake Total 1420 ml 200 ml Output Total 1100 ml 100 ml Balance 320 ml 100 ml Exam Constitutional: alert, oriented Psych: nl mood/affect Head: atraumatic Eyes: EOMI, nl sclera, other ENMT: nl external ears & nose Neck: non-tender Respiratory: clear to auscultation Cardiovascular: nl pulses Gastrointestinal: non-tender, soft Musculoskeletal: other Extremities: normal pulses 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: nl mental status, nl speech Results Result Diagram: 06/26/16 0532 06/26/16 0532 Results 24 hrs Laboratory Tests Test 06/26/16 05:32 06/26/16 08:00 06/26/16 12:19 06/26/16 17:30 Anion Gap 22 H Basophils # 0.1 Basophils % 0.8 Blood Morphology Comment Blood Urea Nitrogen 62 H Calcium Level 7.8 L Carbon Dioxide Level 20 L Chloride Level 98 Creatinine 8.37 H Eosinophils # 0.6 H Eosinophils % 8.1 H Glucose Level 265 H Hematocrit 34.6 L Hemoglobin 11.4 L Lymphocytes # 1.3 Lymphocytes % 17.3 Mean Corpuscular Hemoglobin 30.2 Mean Corpuscular Hemoglobin Concent 33.0 Mean Corpuscular Volume 91.4 Mean Platelet Volume 9.8 Monocytes # 0.5 Monocytes % 7.4 Neutrophils # 4.9 Neutrophils % 66.4 Nucleated Red Blood Cells # 0.0 Nucleated Red Blood Cells % 0.0 Platelet Count 161 Potassium Level 6.6 *H Red Blood Count 3.78 L Red Cell Distribution Width 16.7 H Sodium Level 133 L White Blood Count 7.4 Bedside Glucose 188 194 199 Test 06/26/16 18:37 Bedside Glucose 232 H Medications Medications Current Medications Prasugrel (Effient) 10 mg DAILY PO Last administered on 06/26/16 09:17; Admin Dose 10 MG; Start 06/17/16 at 10:30 Metoprolol Succinate (Toprol Xl) 50 mg BID PO Last administered on 06/26/16 09 :21; Admin Dose 50 MG; Start 06/17/16 at 09:00 Atorvastatin Calcium (Lipitor) 80 mg HS PO Last administered on 06/25/16 21:40 ; Admin Dose 80 MG; Start 06/17/16 at 21:00 Lorazepam (Ativan) 2 mg HS PRN PO INSOMNIA Last administered on 06/25/16 21:40 ; Admin Dose 2 MG; Start 06/17/16 at 08:30 Aspirin (Halfprin) 81 mg DAILY PO Last administered on 06/26/16 09:17; Admin Dose 81 MG; Start 06/17/16 at 09:00 Lisinopril (Zestril) 10 mg DAILY PO Last administered on 06/26/16 09:21; Admin Dose 10 MG; Start 06/17/16 at 09:00 Pramipexole (Mirapex) 0.25 mg HS PO Last administered on 06/25/16 21:50; Admin Dose 0.25 MG; Start 06/17/16 at 21:00 Pantoprazole (Protonix Tab) 40 mg DAILY@06 PO Last administered on 06/26/16 06 :13; Admin Dose 40 MG; Start 06/18/16 at 06:00 Ondansetron HCl (Zofran Inj) 4 mg Q6H PRN IV NAUSEA AND/OR VOMITING Last administered on 06/26/16 20:06; Admin Dose 4 MG; Start 06/17/16 at 08:30 Vancomycin HCl (Vancomycin Oral Syringe) 125 mg Q6 PO Last administered on 06/26 17:31; Admin Dose 125 MG; Start 06/17/16 at 12:00 Isosorbide Mononitrate (Imdur) 60 mg DAILY PO Last administered on 06/26/16 09 :20; Admin Dose 60 MG; Start 06/17/16 at 09:00 Diphenhydramine HCl (Benadryl) 50 mg Q6H PRN IV ITCHING Last administered on 21:25; Admin Dose 50 MG; Start 06/17/16 at 09:30 Hydromorphone HCl (Dilaudid) 1 mg Q3H PRN IV PAIN Last administered on 21:26; Admin Dose 1 MG; Start 06/17/16 at 12:30 Clonidine (Catapres) 0.1 mg Q6H PRN PO SBP > 160mmHg Last administered on 05:36; Admin Dose 0.1 MG; Start 06/18/16 at 00:00 Diagnostic Test (Pha) (Accucheck) 1 ea 02 XX Last administered on 06/24/16 02: 13; Admin Dose 1 EA; Start 06/19/16 at 02:00 Miscellaneous Information 1 ea NOTE XX ; Start 06/18/16 at 13:00 Glucose (Glutose) 15 gm Q15M PRN PO DECREASED GLUCOSE; Start 06/18/16 at 13:00 Glucose (Glutose) 22.5 gm Q15M PRN PO DECREASED GLUCOSE; Start 06/18/16 at 13:00 Dextrose (D50w Syringe) 25 ml Q15M PRN IV DECREASED GLUCOSE Last administered on 06/20/16 08:14; Admin Dose 25 ML; Start 06/18/16 at 13:00 Dextrose (D50w Syringe) 50 ml Q15M PRN IV DECREASED GLUCOSE; Start 06/18/16 at 13:00 Glucagon (Glucagen) 1 mg Q15M PRN IM DECREASED GLUCOSE; Start 06/18/16 at 13:00 Glucose (Glutose) 15 gm Q15M PRN BUCCAL DECREASED GLUCOSE; Start 06/18/16 at 13: 00 Baclofen 5 mg 5 mg BID PRN PO hiccups Last administered on 06/25/16 21:50; Admin Dose 5 MG; Start 06/18/16 at 13:30 Metronidazole (Flagyl 500 Mg (Pmx)) 100 ml @ 100 mls/hr Q8 IVPB Last administered on 06/26/16 15:14; Admin Dose 100 MLS/HR; Start 06/24/16 at 14:00 Lactobacillus Acidoph/Bulgaricus (Floranex) 1 tab TID PO Last administered on 12:23; Admin Dose 1 TAB; Start 06/24/16 at 21:00 PEDRO BENSON Jun 26, 2016 21:57
[2016-06-26 23:01] LABS: CREATININE 8.56 mg/dl (0.61-1.24)
[2016-06-26 23:04] LABS: POTASSIUM 6.2 mmol/L (3.5-5.1)
[2016-06-26] MEDS ORDERED: NA POLYST SULFON 15 GM/60 ML BTL PO ONE (23:30)
[2016-06-27] VITALS (10 sets, daily range): BP systolic 96–151; BP diastolic 60–92; PULSE 76–87; RESP 18
[2016-06-27] MEDS: HYDROmorphONE 1 MG/ML SYG IV PRN ×8 (00:18→21:18)
[2016-06-27] MEDS: VANCOMYCIN HCL 250 MG/5ML POSYG PO SCH ×4 (00:21→17:18)
[2016-06-27] MEDS: ACCUCHECK XX SCH (02:00)
[2016-06-27] MEDS: DIPHENHYDRAMINE 50 MG INJ IV PRN ×3 (03:22→21:18)
[2016-06-27] MEDS: PANTOPRAZOLE (EC) 40 MG TAB PO SCH (06:04)
[2016-06-27] MEDS: metroNIDAZOLE 500 MG/NS (PMX) 100 ML IVPB SCH ×3 (06:05→21:31)
[2016-06-27 06:10] LABS: BASOPHILS % 0.3 % (0.0-2.0); EOSINOPHILS # 0.6 10^3/ul (0.0-0.5); EOSINOPHILS % 7.7 % (0.0-7.0); HEMATOCRIT 40.5 % (42.0-52.0); HEMOGLOBIN 13.5 g/dl (14.0-18.0); LYMPHOCYTES # 0.9 10^3/ul (0.8-2.9); LYMPHOCYTES % 11.2 % (15.0-51.0); MEAN CORPUSCULAR HEMOGLOBIN 30.2 pg (29.0-33.0); MEAN CORPUSCULAR HGB CONC 33.3 g/dl (32.0-37.0); MEAN CORPUSCULAR VOLUME 90.8 fl (82.0-101.0); MEAN PLATELET VOLUME 10.1 fl (7.4-10.4); MONOCYTE # 0.6 10^3/ul (0.3-0.9); MONOCYTES % 7.2 % (0.0-11.0); NEUTROPHIL # 5.9 10^3/ul (1.6-7.5); NEUTROPHILS % 73.6 % (39.0-77.0); PLATELET COUNT 191 10^3/UL (140-440); RED BLOOD COUNT 4.45 10^6/ul (4.70-6.10); RED CELL DISTRIBUTION WIDTH 16.4 % (11.5-14.5)
[2016-06-27 06:25] LABS: CONDITION 1; LH ANALYZER COMMENTS 1
[2016-06-27 06:31] LABS: CREATININE 9.29 mg/dl (0.61-1.24)
[2016-06-27 06:32] LABS: CALCIUM 8.7 mg/dl (8.4-10.2)
[2016-06-27 06:33] LABS: POTASSIUM 6.2 mmol/L (3.5-5.1)
[2016-06-27] MEDS: SEVELAMER 800 MG TAB PO SCH ×3 (09:04→17:17)
[2016-06-27] MEDS: ASPIRIN (EC) 81 MG TAB PO SCH (09:05)
[2016-06-27] MEDS: PRASUGREL HYDROCHLORIDE 10 MG TABLET PO SCH (09:05)
[2016-06-27] MEDS: CALCIUM ACETATE 667 MG CAP PO SCH ×3 (09:05→17:18)
[2016-06-27] MEDS: LACTOBACILLUS CHEW TAB PO SCH ×3 (09:05→21:22)
[2016-06-27] MEDS: ISOSORBIDE MONONITRATE(SR)60 MG TAB PO SCH (09:06)
[2016-06-27] MEDS: LISINOPRIL 10 MG TAB PO SCH (09:06)
[2016-06-27] MEDS: METOPROLOL (XL) 50 MG TAB PO SCH ×2 (09:06→21:22)
--- NOTE | 2016-06-27 09:40 | CONS ---
Date/Time of Note Date/Time of Note DATE: 06/27/16 TIME: 09:35 Assessment/Plan Assessment/Plan Chief Complaint/Hosp Course 1. ESRD , his potassium this morning is 6.2 . He was dialyzed yesterday . He received Kayexalate this morning .I will order hemodialysis for today and tomorrow . Not sure why the high K . This has been a chronic problem .will check potassium in am . 2. diarrhea , his stool is C Difficle positive , he is getting Vancomycin orally , he is improving. 3. DM . . 4. Hypertension 5. Anemia of chronic kidney disease 6. Chronic pain syndrome Problems: Consultation Date/Type/Reason Admit Date/Time Jun 19, 2016 at 13:42 Type of Consultation: ID [id number] HR Interval Summary Free Text/Dictation His potassium is high this morning . He is on a low potassium diet . Exam/Review of Systems Vital Signs Vitals Vital Signs Date Time Temp Pulse Resp B/P Pulse Ox O2 Delivery O2 Flow Rate FiO2 06/27/16 08:00 97.5 90 18 138/74 98 Intake and Output 06/26/16 06/26/16 06/27/16 15:00 23:00 07:00 Intake Total 300 ml 680 ml 1100 ml Output Total 2700 ml 300 ml Balance -2400 ml 680 ml 800 ml Exam Constitutional: alert, oriented, well developed Psych: depression Respiratory: clear to auscultation, normal air movement Cardiovascular: regular rate and rhythm Gastrointestinal: nl liver, spleen, non-tender, soft Musculoskeletal: nl extremities to inspection Results Result Diagram: 06/27/16 0525 06/27/16 0433 Results 24 hrs Laboratory Tests Test 06/26/16 12:19 06/26/16 17:30 06/26/16 18:37 06/26/16 21:56 Bedside Glucose 194 199 232 H 332 H Test 06/26/16 22:26 06/27/16 03:29 06/27/16 04:33 06/27/16 05:25 Anion Gap 23 H 27 H Blood Urea Nitrogen 58 H 67 H Calcium Level 9.0 8.7 Carbon Dioxide Level 24 23 Chloride Level 92 L 93 L Creatinine 8.56 H 9.29 H Glucose Level 372 H 434 *H Potassium Level 6.2 *H 6.2 *H Sodium Level 133 L 137 Bedside Glucose 394 H Basophils # 0.0 Basophils % 0.3 Blood Morphology Comment Eosinophils # 0.6 H Eosinophils % 7.7 H Hematocrit 40.5 L Hemoglobin 13.5 L Lymphocytes # 0.9 Lymphocytes % 11.2 L Mean Corpuscular Hemoglobin 30.2 Mean Corpuscular Hemoglobin Concent 33.3 Mean Corpuscular Volume 90.8 Mean Platelet Volume 10.1 Monocytes # 0.6 Monocytes % 7.2 Neutrophils # 5.9 Neutrophils % 73.6 Nucleated Red Blood Cells # 0.0 Nucleated Red Blood Cells % 0.0 Platelet Count 191 Red Blood Count 4.45 L Red Cell Distribution Width 16.4 H White Blood Count 8.0 Test 06/27/16 09:22 Bedside Glucose 243 H Medications Medications Current Medications Prasugrel (Effient) 10 mg DAILY PO Last administered on 06/27/16 09:05; Admin Dose 10 MG; Start 06/17/16 at 10:30 Metoprolol Succinate (Toprol Xl) 50 mg BID PO Last administered on 06/27/16 09 :06; Admin Dose 50 MG; Start 06/17/16 at 09:00 Atorvastatin Calcium (Lipitor) 80 mg HS PO Last administered on 06/26/16 21:53 ; Admin Dose 80 MG; Start 06/17/16 at 21:00 Lorazepam (Ativan) 2 mg HS PRN PO INSOMNIA Last administered on 06/25/16 21:40 ; Admin Dose 2 MG; Start 06/17/16 at 08:30 Aspirin (Halfprin) 81 mg DAILY PO Last administered on 06/27/16 09:05; Admin Dose 81 MG; Start 06/17/16 at 09:00 Lisinopril (Zestril) 10 mg DAILY PO Last administered on 06/27/16 09:06; Admin Dose 10 MG; Start 06/17/16 at 09:00 Pramipexole (Mirapex) 0.25 mg HS PO Last administered on 06/26/16 21:54; Admin Dose 0.25 MG; Start 06/17/16 at 21:00 Pantoprazole (Protonix Tab) 40 mg DAILY@06 PO Last administered on 06/27/16 06 :04; Admin Dose 40 MG; Start 06/18/16 at 06:00 Ondansetron HCl (Zofran Inj) 4 mg Q6H PRN IV NAUSEA AND/OR VOMITING Last administered on 06/26/16 20:06; Admin Dose 4 MG; Start 06/17/16 at 08:30 Vancomycin HCl (Vancomycin Oral Syringe) 125 mg Q6 PO Last administered on 06/27 06:04; Admin Dose 125 MG; Start 06/17/16 at 12:00 Isosorbide Mononitrate (Imdur) 60 mg DAILY PO Last administered on 06/27/16 09 :06; Admin Dose 60 MG; Start 06/17/16 at 09:00 Diphenhydramine HCl (Benadryl) 50 mg Q6H PRN IV ITCHING Last administered on 09:12; Admin Dose 50 MG; Start 06/17/16 at 09:30 Hydromorphone HCl (Dilaudid) 1 mg Q3H PRN IV PAIN Last administered on 09:01; Admin Dose 1 MG; Start 06/17/16 at 12:30 Clonidine (Catapres) 0.1 mg Q6H PRN PO SBP > 160mmHg Last administered on 05:36; Admin Dose 0.1 MG; Start 06/18/16 at 00:00 Diagnostic Test (Pha) (Accucheck) 1 ea 02 XX Last administered on 06/27/16 02: 00; Admin Dose 1 EA; Start 06/19/16 at 02:00 Miscellaneous Information 1 ea NOTE XX ; Start 06/18/16 at 13:00 Glucose (Glutose) 15 gm Q15M PRN PO DECREASED GLUCOSE; Start 06/18/16 at 13:00 Glucose (Glutose) 22.5 gm Q15M PRN PO DECREASED GLUCOSE; Start 06/18/16 at 13:00 Dextrose (D50w Syringe) 25 ml Q15M PRN IV DECREASED GLUCOSE Last administered on 06/20/16 08:14; Admin Dose 25 ML; Start 06/18/16 at 13:00 Dextrose (D50w Syringe) 50 ml Q15M PRN IV DECREASED GLUCOSE; Start 06/18/16 at 13:00 Glucagon (Glucagen) 1 mg Q15M PRN IM DECREASED GLUCOSE; Start 06/18/16 at 13:00 Glucose (Glutose) 15 gm Q15M PRN BUCCAL DECREASED GLUCOSE; Start 1/4/17 at 13: 00 Baclofen 5 mg 5 mg BID PRN PO hiccups Last administered on 06/25/16 21:50; Admin Dose 5 MG; Start 06/18/16 at 13:30 Metronidazole (Flagyl 500 Mg (Pmx)) 100 ml @ 100 mls/hr Q8 IVPB Last administered on 06/27/16 06:05; Admin Dose 100 MLS/HR; Start 06/24/16 at 14:00 Lactobacillus Acidoph/Bulgaricus (Floranex) 1 tab TID PO Last administered on 09:05; Admin Dose 1 TAB; Start 06/24/16 at 21:00 DONY HOWARD MD Jun 27, 2016 09:39
[2016-06-27] MEDS: DIPHENHYDRAMINE 50 MG INJ IV SCH (11:06)
[2016-06-27] MEDS: LORAZEPAM 2 MG INJ IV SCH (11:06)
--- NOTE | 2016-06-27 18:39 | PN ---
Date/Time of Note Date/Time of Note DATE: 06/27/16 TIME: 18:35 Assessment/Plan VTE Prophylaxis VTE Prophylaxis Intervention: SCD's Lines/Catheters IV Catheter Type (from [facility]): Perma Cath Urinary Cath still in place: No Assessment/Plan Chief Complaint/Hosp Course ASSESSMENT AND PLAN: 1. Clostridium difficile colitis. Continue patient on p.o. vancomycin. Continue contact isolation. 2. End-stage renal disease. Patient is followed by Dr. Hubbard in nephrology consultation. The patient is continued on dialysis. 3. Hyperkalemia. Continue to monitor potassium level. 4. Diabetes mellitus. The patient has an insulin pump. Continue to monitor blood sugar. 5. Dyslipidemia by history. Continue statin. 6. Coronary artery disease status post in-stent thrombosis, left anterior descending, status post percutaneous coronary intervention. Continue patient on aspirin and metoprolol. 7. Hypertension. Continue patient on clonidine. Continue lisinopril and Toprol XL. Continue Protonix for peptic ulcer disease prophylaxis. Further recommendations based on clinical course Further recommendations based on clinical course. Plan of care discussed with Dr. Rosales. Problems: Subjective 24 Hr Interval Summary Free Text/Dictation Patient was elevated potassium today status post Kayexalate, status post hemodialysis today, patient's complains of diarrhea, no fever nausea vomiting. Exam/Review of Systems Vital Signs Vitals Vital Signs Date Time Temp Pulse Resp B/P Pulse Ox O2 Delivery O2 Flow Rate FiO2 06/27/16 13:30 78 18 06/27/16 08:00 97.5 138/74 98 Intake and Output 06/26/16 06/26/16 06/27/16 15:00 23:00 07:00 Intake Total 300 ml 680 ml 1100 ml Output Total 2700 ml 300 ml Balance -2400 ml 680 ml 800 ml Exam GENERAL: Well-developed, well-nourished gentleman in no acute distress. HEENT: Head is atraumatic, normocephalic. Patient has a right hyperesthesia left eye. Left pupil is equal, round, reactive to light and accommodation. NECK: Supple, no mass or thyromegaly. LUNGS: Clear bilaterally. HEART: Normal S1, S2. No murmurs, gallops, clicks, rubs noted. ABDOMEN: Round, soft, nondistended, nontender. Bowel sounds present. EXTREMITIES: No edema, clubbing, cyanosis. Pulses equal bilaterally 2+. The patient has bilateral upper extremity arteriovenous fistula. SKIN: There is no rash, petechiae noted. Patient has multiple tattoos with upper and lower extremities and trunk. NEUROLOGIC: Alert and oriented 3. Right chest PermCath. Results Result Diagram: 06/27/16 0525 06/27/16 0433 Results 24 hrs Laboratory Tests Test 06/26/16 18:37 06/26/16 21:56 06/26/16 22:26 06/27/16 03:29 Bedside Glucose 232 H 332 H 394 H Anion Gap 23 H Blood Urea Nitrogen 58 H Calcium Level 9.0 Carbon Dioxide Level 24 Chloride Level 92 L Creatinine 8.56 H Glucose Level 372 H Potassium Level 6.2 *H Sodium Level 133 L Test 06/27/16 04:33 06/27/16 05:25 06/27/16 09:22 06/27/16 12:00 Anion Gap 27 H Blood Urea Nitrogen 67 H Calcium Level 8.7 Carbon Dioxide Level 23 Chloride Level 93 L Creatinine 9.29 H Glucose Level 434 *H Potassium Level 6.2 *H Sodium Level 137 Basophils # 0.0 Basophils % 0.3 Blood Morphology Comment Eosinophils # 0.6 H Eosinophils % 7.7 H Hematocrit 40.5 L Hemoglobin 13.5 L Lymphocytes # 0.9 Lymphocytes % 11.2 L Mean Corpuscular Hemoglobin 30.2 Mean Corpuscular Hemoglobin Concent 33.3 Mean Corpuscular Volume 90.8 Mean Platelet Volume 10.1 Monocytes # 0.6 Monocytes % 7.2 Neutrophils # 5.9 Neutrophils % 73.6 Nucleated Red Blood Cells # 0.0 Nucleated Red Blood Cells % 0.0 Platelet Count 191 Red Blood Count 4.45 L Red Cell Distribution Width 16.4 H White Blood Count 8.0 Bedside Glucose 243 H 180 Test 06/27/16 17:16 Bedside Glucose 123 Medications Medications Current Medications Prasugrel (Effient) 10 mg DAILY PO Last administered on 06/27/16 09:05; Admin Dose 10 MG; Start 06/17/16 at 10:30 Metoprolol Succinate (Toprol Xl) 50 mg BID PO Last administered on 06/27/16 09 :06; Admin Dose 50 MG; Start 06/17/16 at 09:00 Atorvastatin Calcium (Lipitor) 80 mg HS PO Last administered on 06/26/16 21:53 ; Admin Dose 80 MG; Start 06/17/16 at 21:00 Lorazepam (Ativan) 2 mg HS PRN PO INSOMNIA Last administered on 06/25/16 21:40 ; Admin Dose 2 MG; Start 06/17/16 at 08:30 Aspirin (Halfprin) 81 mg DAILY PO Last administered on 06/27/16 09:05; Admin Dose 81 MG; Start 06/17/16 at 09:00 Lisinopril (Zestril) 10 mg DAILY PO Last administered on 06/27/16 09:06; Admin Dose 10 MG; Start 06/17/16 at 09:00 Pramipexole (Mirapex) 0.25 mg HS PO Last administered on 06/26/16 21:54; Admin Dose 0.25 MG; Start 06/17/16 at 21:00 Pantoprazole (Protonix Tab) 40 mg DAILY@06 PO Last administered on 06/27/16 06 :04; Admin Dose 40 MG; Start 06/18/16 at 06:00 Ondansetron HCl (Zofran Inj) 4 mg Q6H PRN IV NAUSEA AND/OR VOMITING Last administered on 06/26/16 20:06; Admin Dose 4 MG; Start 06/17/16 at 08:30 Vancomycin HCl (Vancomycin Oral Syringe) 125 mg Q6 PO Last administered on 06/27 17:18; Admin Dose 125 MG; Start 06/17/16 at 12:00 Isosorbide Mononitrate (Imdur) 60 mg DAILY PO Last administered on 06/27/16 09 :06; Admin Dose 60 MG; Start 06/17/16 at 09:00 Diphenhydramine HCl (Benadryl) 50 mg Q6H PRN IV ITCHING Last administered on 09:12; Admin Dose 50 MG; Start 06/17/16 at 09:30 Hydromorphone HCl (Dilaudid) 1 mg Q3H PRN IV PAIN Last administered on 18:03; Admin Dose 1 MG; Start 06/17/16 at 12:30 Clonidine (Catapres) 0.1 mg Q6H PRN PO SBP > 160mmHg Last administered on 05:36; Admin Dose 0.1 MG; Start 06/18/16 at 00:00 Diagnostic Test (Pha) (Accucheck) 1 ea 02 XX Last administered on 06/27/16 02: 00; Admin Dose 1 EA; Start 06/19/16 at 02:00 Miscellaneous Information 1 ea NOTE XX ; Start 06/18/16 at 13:00 Glucose (Glutose) 15 gm Q15M PRN PO DECREASED GLUCOSE; Start 06/18/16 at 13:00 Glucose (Glutose) 22.5 gm Q15M PRN PO DECREASED GLUCOSE; Start 06/18/16 at 13:00 Dextrose (D50w Syringe) 25 ml Q15M PRN IV DECREASED GLUCOSE Last administered on 06/20/16 08:14; Admin Dose 25 ML; Start 06/18/16 at 13:00 Dextrose (D50w Syringe) 50 ml Q15M PRN IV DECREASED GLUCOSE; Start 06/18/16 at 13:00 Glucagon (Glucagen) 1 mg Q15M PRN IM DECREASED GLUCOSE; Start 06/18/16 at 13:00 Glucose (Glutose) 15 gm Q15M PRN BUCCAL DECREASED GLUCOSE; Start 06/18/16 at 13: 00 Baclofen 5 mg 5 mg BID PRN PO hiccups Last administered on 06/25/16 21:50; Admin Dose 5 MG; Start 06/18/16 at 13:30 Metronidazole (Flagyl 500 Mg (Pmx)) 100 ml @ 100 mls/hr Q8 IVPB Last administered on 06/27/16 14:57; Admin Dose 100 MLS/HR; Start 06/24/16 at 14:00 Lactobacillus Acidoph/Bulgaricus (Floranex) 1 tab TID PO Last administered on 09:05; Admin Dose 1 TAB; Start 06/24/16 at 21:00 ANGELINA CASTREJON Jun 27, 2016 18:39
--- NOTE | 2016-06-27 19:38 | CONS ---
Date/Time of Note Date/Time of Note DATE: 06/27/16 TIME: 19:38 Consult Date/Type/Reason Admit Date/Time Jun 19, 2016 at 13:42 Type of Consultation: ID Subjective no acute events, awake, looks comfortable, no fevers Objective Vital Signs Date Time Temp Pulse Resp B/P Pulse Ox O2 Delivery O2 Flow Rate FiO2 06/27/16 13:30 78 18 06/27/16 08:00 97.5 138/74 98 Intake and Output 06/26/16 06/26/16 06/27/16 15:00 23:00 07:00 Intake Total 300 ml 680 ml 1100 ml Output Total 2700 ml 300 ml Balance -2400 ml 680 ml 800 ml Results/Medications Result Diagram: 06/27/16 0525 06/27/16 0433 Results 24 hrs Laboratory Tests Test 06/26/16 21:56 06/26/16 22:26 06/27/16 03:29 06/27/16 04:33 Bedside Glucose 332 H 394 H Anion Gap 23 H 27 H Blood Urea Nitrogen 58 H 67 H Calcium Level 9.0 8.7 Carbon Dioxide Level 24 23 Chloride Level 92 L 93 L Creatinine 8.56 H 9.29 H Glucose Level 372 H 434 *H Potassium Level 6.2 *H 6.2 *H Sodium Level 133 L 137 Test 06/27/16 05:25 06/27/16 09:22 06/27/16 12:00 06/27/16 17:16 Basophils # 0.0 Basophils % 0.3 Blood Morphology Comment Eosinophils # 0.6 H Eosinophils % 7.7 H Hematocrit 40.5 L Hemoglobin 13.5 L Lymphocytes # 0.9 Lymphocytes % 11.2 L Mean Corpuscular Hemoglobin 30.2 Mean Corpuscular Hemoglobin Concent 33.3 Mean Corpuscular Volume 90.8 Mean Platelet Volume 10.1 Monocytes # 0.6 Monocytes % 7.2 Neutrophils # 5.9 Neutrophils % 73.6 Nucleated Red Blood Cells # 0.0 Nucleated Red Blood Cells % 0.0 Platelet Count 191 Red Blood Count 4.45 L Red Cell Distribution Width 16.4 H White Blood Count 8.0 Bedside Glucose 243 H 180 123 Medications Current Medications Prasugrel (Effient) 10 mg DAILY PO Last administered on 06/27/16t 09:05; Admin Dose 10 MG; Start 06/17/16 at 10:30 Metoprolol Succinate (Toprol Xl) 50 mg BID PO Last administered on 06/27/16 09 :06; Admin Dose 50 MG; Start 06/17/16 at 09:00 Atorvastatin Calcium (Lipitor) 80 mg HS PO Last administered on 06/26/16 21:53 ; Admin Dose 80 MG; Start 06/17/16 at 21:00 Lorazepam (Ativan) 2 mg HS PRN PO INSOMNIA Last administered on 06/25/16 21:40 ; Admin Dose 2 MG; Start 06/17/16 at 08:30 Aspirin (Halfprin) 81 mg DAILY PO Last administered on 06/27/16 09:05; Admin Dose 81 MG; Start 06/17/16 at 09:00 Lisinopril (Zestril) 10 mg DAILY PO Last administered on 06/27/16 09:06; Admin Dose 10 MG; Start 06/17/16 at 09:00 Pramipexole (Mirapex) 0.25 mg HS PO Last administered on 06/26/16 21:54; Admin Dose 0.25 MG; Start 06/17/16 at 21:00 Pantoprazole (Protonix Tab) 40 mg DAILY@06 PO Last administered on 06/27/16 06 :04; Admin Dose 40 MG; Start 06/18/16 at 06:00 Ondansetron HCl (Zofran Inj) 4 mg Q6H PRN IV NAUSEA AND/OR VOMITING Last administered on 06/26/16 20:06; Admin Dose 4 MG; Start 06/17/16 at 08:30 Vancomycin HCl (Vancomycin Oral Syringe) 125 mg Q6 PO Last administered on 06/27 17:18; Admin Dose 125 MG; Start 06/17/16 at 12:00 Isosorbide Mononitrate (Imdur) 60 mg DAILY PO Last administered on 06/27/16 09 :06; Admin Dose 60 MG; Start 06/17/16 at 09:00 Diphenhydramine HCl (Benadryl) 50 mg Q6H PRN IV ITCHING Last administered on 09:12; Admin Dose 50 MG; Start 06/17/16 at 09:30 Hydromorphone HCl (Dilaudid) 1 mg Q3H PRN IV PAIN Last administered on 18:03; Admin Dose 1 MG; Start 06/17/16 at 12:30 Clonidine (Catapres) 0.1 mg Q6H PRN PO SBP > 160mmHg Last administered on 05:36; Admin Dose 0.1 MG; Start 06/18/16 at 00:00 Diagnostic Test (Pha) (Accucheck) 1 ea 02 XX Last administered on 06/27/16 02: 00; Admin Dose 1 EA; Start 06/19/16 at 02:00 Miscellaneous Information 1 ea NOTE XX ; Start 06/18/16 at 13:00 Glucose (Glutose) 15 gm Q15M PRN PO DECREASED GLUCOSE; Start 06/18/16 at 13:00 Glucose (Glutose) 22.5 gm Q15M PRN PO DECREASED GLUCOSE; Start 06/18/16 at 13:00 Dextrose (D50w Syringe) 25 ml Q15M PRN IV DECREASED GLUCOSE Last administered on 06/20/16 08:14; Admin Dose 25 ML; Start 06/18/16 at 13:00 Dextrose (D50w Syringe) 50 ml Q15M PRN IV DECREASED GLUCOSE; Start 06/18/16 at 13:00 Glucagon (Glucagen) 1 mg Q15M PRN IM DECREASED GLUCOSE; Start 06/18/16 at 13:00 Glucose (Glutose) 15 gm Q15M PRN BUCCAL DECREASED GLUCOSE; Start 06/18/16 at 13: 00 Baclofen 5 mg 5 mg BID PRN PO hiccups Last administered on 06/25/16 21:50; Admin Dose 5 MG; Start 06/18/16 at 13:30 Metronidazole (Flagyl 500 Mg (Pmx)) 100 ml @ 100 mls/hr Q8 IVPB Last administered on 06/27/16 14:57; Admin Dose 100 MLS/HR; Start 06/24/16 at 14:00 Lactobacillus Acidoph/Bulgaricus (Floranex) 1 tab TID PO Last administered on 09:05; Admin Dose 1 TAB; Start 06/24/16 at 21:00 Assessment/Plan Chief Complaint/Hosp Course ANTIMICROBIALS: Oral vancomycin and IV Flagyl. PHYSICAL EXAMINATION: GENERAL: This is a chronically ill-appearing, middle-aged white man who is legally blind. The patient is in no distress. HEENT: Head atraumatic, normocephalic. Sclerae anicteric. Buccal mucosa dry. NECK: Supple, trachea midline. CHEST: Rise symmetrical. Breath sounds diminished at the bases. HEART: S1, S2. ABDOMEN: Soft, bowel sounds present. EXTREMITIES: Without cyanosis. ASSESSMENT: 1. Clostridium difficile colitis. 2. Anemia. 3. End-stage renal disease. 4. Hypertension. 5. The patient is legally blind. 6. Diabetes. PLAN: Stable, repeat stool neg for C dif, diarrhea is better, ok dc on PO Vanco for 2 more weeks DW staff Problems: BIJAN LONGO NP Jun 27, 2016 19:38
[2016-06-27] MEDS: PRAMIPEXOLE 0.25 MG TAB PO SCH (21:18)
[2016-06-27] MEDS: ATORVASTATIN 80 MG TAB PO SCH (21:18)
[2016-06-28] VITALS (9 sets, daily range): BP systolic 120–169; BP diastolic 80–100; PULSE 82–92; RESP 16–18
[2016-06-28] MEDS: ONDANSETRON 4 MG INJ IV PRN (00:30)
[2016-06-28] MEDS: ACCUCHECK XX SCH ×2 (02:00→21:50)
[2016-06-28] MEDS: DIPHENHYDRAMINE 50 MG INJ IV PRN ×4 (03:13→21:05)
[2016-06-28] MEDS: HYDROmorphONE 1 MG/ML SYG IV PRN ×9 (03:15→23:53)
[2016-06-28] MEDS: PANTOPRAZOLE (EC) 40 MG TAB PO SCH (06:08)
[2016-06-28] MEDS: VANCOMYCIN HCL 250 MG/5ML POSYG PO SCH ×5 (06:09→23:51)
[2016-06-28] MEDS: metroNIDAZOLE 500 MG/NS (PMX) 100 ML IVPB SCH ×3 (06:10→21:47)
[2016-06-28 06:49] LABS: BASOPHIL # 0.1 10^3/ul (0.0-0.1); BASOPHILS % 1.1 % (0.0-2.0); EOSINOPHILS # 0.5 10^3/ul (0.0-0.5); EOSINOPHILS % 6.9 % (0.0-7.0); HEMATOCRIT 33.7 % (42.0-52.0); HEMOGLOBIN 11.3 g/dl (14.0-18.0); LYMPHOCYTES # 1.3 10^3/ul (0.8-2.9); LYMPHOCYTES % 17.7 % (15.0-51.0); MEAN CORPUSCULAR HEMOGLOBIN 30.2 pg (29.0-33.0); MEAN CORPUSCULAR HGB CONC 33.5 g/dl (32.0-37.0); MEAN CORPUSCULAR VOLUME 90.2 fl (82.0-101.0); MEAN PLATELET VOLUME 10.1 fl (7.4-10.4); MONOCYTE # 0.5 10^3/ul (0.3-0.9); MONOCYTES % 6.6 % (0.0-11.0); NEUTROPHIL # 5.1 10^3/ul (1.6-7.5); NEUTROPHILS % 67.7 % (39.0-77.0); PLATELET COUNT 164 10^3/UL (140-440); RED BLOOD COUNT 3.74 10^6/ul (4.70-6.10); RED CELL DISTRIBUTION WIDTH 16.4 % (11.5-14.5); UNCORRECTED WBC 7.5 10^3/ul (4.8-10.8); WHITE BLOOD COUNT 7.5 10^3/ul (4.8-10.8)
[2016-06-28 06:51] LABS: POTASSIUM 4.6 mmol/L (3.5-5.1)
[2016-06-28 06:53] LABS: CREATININE 7.33 mg/dl (0.61-1.24)
[2016-06-28 06:54] LABS: CALCIUM 7.9 mg/dl (8.4-10.2)
[2016-06-28 07:24] LABS: CONDITION 1; LH ANALYZER COMMENTS 1
[2016-06-28] MEDS: PRASUGREL HYDROCHLORIDE 10 MG TABLET PO SCH (08:08)
[2016-06-28] MEDS: LACTOBACILLUS CHEW TAB PO SCH ×3 (08:08→20:20)
[2016-06-28] MEDS: CALCIUM ACETATE 667 MG CAP PO SCH ×3 (08:08→17:44)
[2016-06-28] MEDS: ASPIRIN (EC) 81 MG TAB PO SCH (08:08)
[2016-06-28] MEDS: DIPHENHYDRAMINE 50 MG INJ IV SCH (08:09)
[2016-06-28] MEDS: SEVELAMER 800 MG TAB PO SCH ×3 (08:09→17:44)
[2016-06-28] MEDS: LORAZEPAM 2 MG INJ IV SCH (08:09)
[2016-06-28] MEDS: ISOSORBIDE MONONITRATE(SR)60 MG TAB PO SCH (08:58)
[2016-06-28] MEDS: METOPROLOL (XL) 50 MG TAB PO SCH ×2 (08:59→20:21)
[2016-06-28] MEDS: LISINOPRIL 10 MG TAB PO SCH (08:59)
--- NOTE | 2016-06-28 10:58 | CONS ---
Date/Time of Note Date/Time of Note DATE: 06/28/16 TIME: 10:55 Assessment/Plan Assessment/Plan Additional Assessment/Plan 1. CKD on HD, dialyzing now 2. C diff colitis, being treated 3. DM, sugar control is adequate 4. Foot pain bilat, neurogenic onset yesterday, add Neurontin if not receiving ( will rev) Consultation Date/Type/Reason Admit Date/Time Jun 19, 2016 at 13:42 Initial Consult Date Type of Consultation: ID Detailed Summary Respiratory: No cough, No shortness of breath Cardiovascular: No chest pain Gastrointestinal: other (loose stools are slowing, bloated) Genitourinary: no complaints Neurologic: other (c/o pain on top of his feet bilat and toes) Exam/Review of Systems Vital Signs Vitals Vital Signs Date Time Temp Pulse Resp B/P Pulse Ox O2 Delivery O2 Flow Rate FiO2 06/28/16 10:45 83 06/28/16 09:15 18 06/28/16 07:16 97.5 169/92 97 Intake and Output 06/27/16 06/27/16 06/28/16 15:00 23:00 07:00 Intake Total 500 ml 560 ml 500 ml Output Total 2500 ml 600 ml Balance -2000 ml 560 ml -100 ml Exam Neck: No jvd Respiratory: clear to auscultation Cardiovascular: regular rate and rhythm Gastrointestinal: soft Extremities: No edema (and no calf tend, feet are warm) Results Result Diagram: 06/28/16 0503 06/28/16 0503 Results 24 hrs Laboratory Tests Test 06/27/16 12:00 06/27/16 17:16 06/27/16 21:26 06/28/16 02:14 Bedside Glucose 180 123 220 163 Test 06/28/16 05:03 06/28/16 08:07 Anion Gap 20 #H Basophils # 0.1 Basophils % 1.1 Blood Morphology Comment Blood Urea Nitrogen 46 #H Calcium Level 7.9 L Carbon Dioxide Level 26 Chloride Level 96 L Creatinine 7.33 H Eosinophils # 0.5 Eosinophils % 6.9 Glucose Level 172 # Hematocrit 33.7 L Hemoglobin 11.3 L Lymphocytes # 1.3 Lymphocytes % 17.7 Mean Corpuscular Hemoglobin 30.2 Mean Corpuscular Hemoglobin Concent 33.5 Mean Corpuscular Volume 90.2 Mean Platelet Volume 10.1 Monocytes # 0.5 Monocytes % 6.6 Neutrophils # 5.1 Neutrophils % 67.7 Nucleated Red Blood Cells # 0.0 Nucleated Red Blood Cells % 0.0 Platelet Count 164 Potassium Level 4.6 Red Blood Count 3.74 L Red Cell Distribution Width 16.4 H Sodium Level 137 White Blood Count 7.5 Bedside Glucose 150 Medications Medications Current Medications Prasugrel (Effient) 10 mg DAILY PO Last administered on 06/28/16 08:08; Admin Dose 10 MG; Start 06/17/16 at 10:30 Metoprolol Succinate (Toprol Xl) 50 mg BID PO Last administered on 06/27/16 21 :22; Admin Dose 50 MG; Start 06/17/16 at 09:00 Atorvastatin Calcium (Lipitor) 80 mg HS PO Last administered on 06/27/16 21:18 ; Admin Dose 80 MG; Start 06/17/16 at 21:00 Lorazepam (Ativan) 2 mg HS PRN PO INSOMNIA Last administered on 06/25/16 21:40 ; Admin Dose 2 MG; Start 06/17/16 at 08:30 Aspirin (Halfprin) 81 mg DAILY PO Last administered on 06/28/16 08:08; Admin Dose 81 MG; Start 06/17/16 at 09:00 Lisinopril (Zestril) 10 mg DAILY PO Last administered on 06/27/16 09:06; Admin Dose 10 MG; Start 06/17/16 at 09:00 Pramipexole (Mirapex) 0.25 mg HS PO Last administered on 06/27/16 21:18; Admin Dose 0.25 MG; Start 06/17/16 at 21:00 Pantoprazole (Protonix Tab) 40 mg DAILY@06 PO Last administered on 06/28/16 06 :08; Admin Dose 40 MG; Start 06/18/16 at 06:00 Ondansetron HCl (Zofran Inj) 4 mg Q6H PRN IV NAUSEA AND/OR VOMITING Last administered on 06/28/16 00:30; Admin Dose 4 MG; Start 06/17/16 at 08:30 Vancomycin HCl (Vancomycin Oral Syringe) 125 mg Q6 PO Last administered on 06/28 06:09; Admin Dose 125 MG; Start 06/17/16 at 12:00 Isosorbide Mononitrate (Imdur) 60 mg DAILY PO Last administered on 06/27/16 09 :06; Admin Dose 60 MG; Start 06/17/16 at 09:00 Diphenhydramine HCl (Benadryl) 50 mg Q6H PRN IV ITCHING Last administered on 09:11; Admin Dose 50 MG; Start 06/17/16 at 09:30 Hydromorphone HCl (Dilaudid) 1 mg Q3H PRN IV PAIN Last administered on 09:11; Admin Dose 1 MG; Start 06/17/16 at 12:30 Clonidine (Catapres) 0.1 mg Q6H PRN PO SBP > 160mmHg Last administered on 05:36; Admin Dose 0.1 MG; Start 06/18/16 at 00:00 Diagnostic Test (Pha) (Accucheck) 1 ea 02 XX Last administered on 06/28/16 02: 00; Admin Dose 1 EA; Start 06/19/16 at 02:00 Miscellaneous Information 1 ea NOTE XX ; Start 06/18/16 at 13:00 Glucose (Glutose) 15 gm Q15M PRN PO DECREASED GLUCOSE; Start 06/18/16 at 13:00 Glucose (Glutose) 22.5 gm Q15M PRN PO DECREASED GLUCOSE; Start 06/18/16 at 13:00 Dextrose (D50w Syringe) 25 ml Q15M PRN IV DECREASED GLUCOSE Last administered on 06/20/16 08:14; Admin Dose 25 ML; Start 06/18/16 at 13:00 Dextrose (D50w Syringe) 50 ml Q15M PRN IV DECREASED GLUCOSE; Start 06/18/16 at 13:00 Glucagon (Glucagen) 1 mg Q15M PRN IM DECREASED GLUCOSE; Start 06/18/16 at 13:00 Glucose (Glutose) 15 gm Q15M PRN BUCCAL DECREASED GLUCOSE; Start 06/18/16 at 13: 00 Baclofen 5 mg 5 mg BID PRN PO hiccups Last administered on 06/25/16 21:50; Admin Dose 5 MG; Start 06/18/16 at 13:30 Metronidazole (Flagyl 500 Mg (Pmx)) 100 ml @ 100 mls/hr Q8 IVPB Last administered on 1/14/17at 06:10; Admin Dose 100 MLS/HR; Start 06/24/16 at 14:00 Lactobacillus Acidoph/Bulgaricus (Floranex) 1 tab TID PO Last administered on t 08:08; Admin Dose 1 TAB; Start 06/24/16 at 21:00 MANE LESLIE MD Jun 28, 2016 10:57
--- NOTE | 2016-06-28 11:35 | PN ---
Date/Time of Note Date/Time of Note DATE: 06/28/16 TIME: 11:34 Assessment/Plan VTE Prophylaxis VTE Prophylaxis Intervention: SCD's Lines/Catheters IV Catheter Type (from [facility]): permacath Urinary Cath still in place: No Assessment/Plan Assessment/Plan 1. Clostridium difficile colitis. - PER id - p.o. vancomycin. - contact isolation. 2. End-stage renal disease. - Per Dr. Hubbard in nephrology consultation. - HD now 3. Hyperkalemia. - HD - MONITOR bmp 4. Diabetes mellitus. - glycemic control with patient insulin pump. Continue to monitor blood sugar. - Hyperglycemia- Echocardiology consult appreciated 5. Dyslipidemia by history. Continue statin. 6. Coronary artery disease status post in-stent thrombosis, left anterior descending, status post percutaneous coronary intervention. Continue patient on aspirin and metoprolol. 7. Hypertension. Continue patient on clonidine. Continue lisinopril and Toprol XL. Continue Protonix for peptic ulcer disease prophylaxis. Further recommendations based on clinical course Further recommendations based on clinical course. Plan of care discussed with Dr. Rosales. Subjective 24 Hr Interval Summary Free Text/Dictation NAD, having HD now, tolerates well, BS better. Denies any complaints. dw staff Eyes: no complaints ENT: no complaints Respiratory: no complaints Cardiovascular: no complaints Gastrointestinal: no complaints Genitourinary: no complaints Musculoskeletal: no complaints Skin: no complaints Neurologic: no complaints Endocrine: no complaints Exam/Review of Systems Vital Signs Vitals Vital Signs Date Time Temp Pulse Resp B/P Pulse Ox O2 Delivery O2 Flow Rate FiO2 06/28/16 10:45 83 06/28/16 09:15 18 06/28/16 07:16 97.5 169/92 97 Intake and Output 06/27/16 06/27/16 06/28/16 15:00 23:00 07:00 Intake Total 500 ml 560 ml 500 ml Output Total 2500 ml 600 ml Balance -2000 ml 560 ml -100 ml Exam Constitutional: alert, oriented Psych: nl mood/affect Head: atraumatic Eyes: EOMI ENMT: nl external ears & nose Neck: non-tender Respiratory: clear to auscultation Cardiovascular: nl pulses Gastrointestinal: non-tender, soft Musculoskeletal: nl extremities to inspection Extremities: normal pulses 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: nl mental status, nl speech Skin: nl turgor Lymph: nontender Results Result Diagram: 06/28/16 0503 06/28/16 0503 Results 24 hrs Laboratory Tests Test 06/27/16 12:00 06/27/16 17:16 06/27/16 21:26 06/28/16 02:14 Bedside Glucose 180 123 220 163 Test 06/28/16 05:03 06/28/16 08:07 Anion Gap 20 #H Basophils # 0.1 Basophils % 1.1 Blood Morphology Comment Blood Urea Nitrogen 46 #H Calcium Level 7.9 L Carbon Dioxide Level 26 Chloride Level 96 L Creatinine 7.33 H Eosinophils # 0.5 Eosinophils % 6.9 Glucose Level 172 # Hematocrit 33.7 L Hemoglobin 11.3 L Lymphocytes # 1.3 Lymphocytes % 17.7 Mean Corpuscular Hemoglobin 30.2 Mean Corpuscular Hemoglobin Concent 33.5 Mean Corpuscular Volume 90.2 Mean Platelet Volume 10.1 Monocytes # 0.5 Monocytes % 6.6 Neutrophils # 5.1 Neutrophils % 67.7 Nucleated Red Blood Cells # 0.0 Nucleated Red Blood Cells % 0.0 Platelet Count 164 Potassium Level 4.6 Red Blood Count 3.74 L Red Cell Distribution Width 16.4 H Sodium Level 137 White Blood Count 7.5 Bedside Glucose 150 Medications Medications Current Medications Prasugrel (Effient) 10 mg DAILY PO Last administered on 06/28/16 08:08; Admin Dose 10 MG; Start 06/17/16 at 10:30 Metoprolol Succinate (Toprol Xl) 50 mg BID PO Last administered on 06/27/16 21 :22; Admin Dose 50 MG; Start 06/17/16 at 09:00 Atorvastatin Calcium (Lipitor) 80 mg HS PO Last administered on 06/27/16 21:18 ; Admin Dose 80 MG; Start 06/17/16 at 21:00 Lorazepam (Ativan) 2 mg HS PRN PO INSOMNIA Last administered on 06/25/16 21:40 ; Admin Dose 2 MG; Start 06/17/16 at 08:30 Aspirin (Halfprin) 81 mg DAILY PO Last administered on 06/28/16 08:08; Admin Dose 81 MG; Start 06/17/16 at 09:00 Lisinopril (Zestril) 10 mg DAILY PO Last administered on 06/27/16 09:06; Admin Dose 10 MG; Start 06/17/16 at 09:00 Pramipexole (Mirapex) 0.25 mg HS PO Last administered on 06/27/16 21:18; Admin Dose 0.25 MG; Start 06/17/16 at 21:00 Pantoprazole (Protonix Tab) 40 mg DAILY@06 PO Last administered on 06/28/16 06 :08; Admin Dose 40 MG; Start 06/18/16 at 06:00 Ondansetron HCl (Zofran Inj) 4 mg Q6H PRN IV NAUSEA AND/OR VOMITING Last administered on 06/28/16 00:30; Admin Dose 4 MG; Start 06/17/16 at 08:30 Vancomycin HCl (Vancomycin Oral Syringe) 125 mg Q6 PO Last administered on 06/28 06:09; Admin Dose 125 MG; Start 06/17/16 at 12:00 Isosorbide Mononitrate (Imdur) 60 mg DAILY PO Last administered on 06/27/16 09 :06; Admin Dose 60 MG; Start 06/17/16 at 09:00 Diphenhydramine HCl (Benadryl) 50 mg Q6H PRN IV ITCHING Last administered on 09:11; Admin Dose 50 MG; Start 06/17/16 at 09:30 Hydromorphone HCl (Dilaudid) 1 mg Q3H PRN IV PAIN Last administered on 09:11; Admin Dose 1 MG; Start 06/17/16 at 12:30 Clonidine (Catapres) 0.1 mg Q6H PRN PO SBP > 160mmHg Last administered on 05:36; Admin Dose 0.1 MG; Start 06/18/16 at 00:00 Diagnostic Test (Pha) (Accucheck) 1 ea 02 XX Last administered on 06/28/16 02: 00; Admin Dose 1 EA; Start 06/19/16 at 02:00 Miscellaneous Information 1 ea NOTE XX ; Start 06/18/16 at 13:00 Glucose (Glutose) 15 gm Q15M PRN PO DECREASED GLUCOSE; Start 06/18/16 at 13:00 Glucose (Glutose) 22.5 gm Q15M PRN PO DECREASED GLUCOSE; Start 06/18/16 at 13:00 Dextrose (D50w Syringe) 25 ml Q15M PRN IV DECREASED GLUCOSE Last administered on 06/20/16 08:14; Admin Dose 25 ML; Start 06/18/16 at 13:00 Dextrose (D50w Syringe) 50 ml Q15M PRN IV DECREASED GLUCOSE; Start 06/18/16 at 13:00 Glucagon (Glucagen) 1 mg Q15M PRN IM DECREASED GLUCOSE; Start 06/18/16 at 13:00 Glucose (Glutose) 15 gm Q15M PRN BUCCAL DECREASED GLUCOSE; Start 06/18/16 at 13: 00 Baclofen 5 mg 5 mg BID PRN PO hiccups Last administered on 06/25/16 21:50; Admin Dose 5 MG; Start 06/18/16 at 13:30 Metronidazole (Flagyl 500 Mg (Pmx)) 100 ml @ 100 mls/hr Q8 IVPB Last administered on 06/28/16 06:10; Admin Dose 100 MLS/HR; Start 06/24/16 at 14:00 Lactobacillus Acidoph/Bulgaricus (Floranex) 1 tab TID PO Last administered on 08:08; Admin Dose 1 TAB; Start 06/24/16 at 21:00 PEDRO BENSON Jun 28, 2016 11:34
--- NOTE | 2016-06-28 17:49 | CONS ---
Date/Time of Note Date/Time of Note DATE: 06/28/16 TIME: 17:40 Assessment/Plan Assessment/Plan Problems: (1) Diabetes mellitus type 1, controlled, with complications Status: Chronic Comment: On insulin pump now with suboptimal control. Will increase accu-check frequency to AC 2hours PC and HS. This way patient will be able to give correction dose in between meals to optimize glycemic control. Consultation Date/Type/Reason Admit Date/Time Jun 19, 2016 at 13:42 Date of Consultation: Jun 28, 2016 Type of Consultation: endocrine Reason for Consultation diabetes management Referring Provider: WILMER RODRIGUEZ MD Hx of Present Illness Patient well known to me. Type 1 diabetic with multiple chronic complications including retinal, renal and neuologic complications. Admitted for colitis. 1 specimen positive for C. Difficile. Patient states blood sugars have been more difficult to control since being admitted with colitis. Constitutional: no complaints Eyes: no complaints, other (prosthetic eye) ENT: no complaints Respiratory: no complaints Cardiovascular: no complaints Gastrointestinal: no complaints Genitourinary: no complaints, other (renal failure on hemodialysis) Musculoskeletal: no complaints Skin: no complaints, other (multiple tattoos) Neurologic: no complaints Endocrine: no complaints, other (hyperglycemia. wears an insulin pump) Psychological: nl mood/affect Past Medical History Medical History: coronary artery disease, diabetes, hypertension, renal disease Past Surgical History Past Surgical Hx: angioplasty, other (a-v fistula) Family History Significant Family History: no pertinent family hx Social History Smoking Status: Never smoker Drug Use: marijuana Other Social History with 2 children Exam/Review of Systems Vital Signs Vitals Vital Signs Date Time Temp Pulse Resp B/P Pulse Ox O2 Delivery O2 Flow Rate FiO2 06/28/16 12:15 92 18 06/28/16 07:16 97.5 169/92 97 Intake and Output 06/27/16 06/27/16 06/28/16 15:00 23:00 07:00 Intake Total 500 ml 560 ml 500 ml Output Total 2500 ml 600 ml Balance -2000 ml 560 ml -100 ml Exam Constitutional: alert, oriented, well developed Head: normocephalic Neck: supple Respiratory: clear to auscultation Cardiovascular: regular rate and rhythm Gastrointestinal: soft Musculoskeletal: nl extremities to inspection Extremities: normal pulses Results POC reviewed Result Diagram: 06/28/16 0503 06/28/16 0503 Results 24 hrs Laboratory Tests Test 06/27/16 21:26 06/28/16 02:14 06/28/16 05:03 06/28/16 08:07 Bedside Glucose 220 163 150 Anion Gap 20 #H Basophils # 0.1 Basophils % 1.1 Blood Morphology Comment Blood Urea Nitrogen 46 #H Calcium Level 7.9 L Carbon Dioxide Level 26 Chloride Level 96 L Creatinine 7.33 H Eosinophils # 0.5 Eosinophils % 6.9 Glucose Level 172 # Hematocrit 33.7 L Hemoglobin 11.3 L Lymphocytes # 1.3 Lymphocytes % 17.7 Mean Corpuscular Hemoglobin 30.2 Mean Corpuscular Hemoglobin Concent 33.5 Mean Corpuscular Volume 90.2 Mean Platelet Volume 10.1 Monocytes # 0.5 Monocytes % 6.6 Neutrophils # 5.1 Neutrophils % 67.7 Nucleated Red Blood Cells # 0.0 Nucleated Red Blood Cells % 0.0 Platelet Count 164 Potassium Level 4.6 Red Blood Count 3.74 L Red Cell Distribution Width 16.4 H Sodium Level 137 White Blood Count 7.5 Test 06/28/16 12:20 Bedside Glucose 204 Medications Medications Current Medications Prasugrel (Effient) 10 mg DAILY PO Last administered on 06/28/16 08:08; Admin Dose 10 MG; Start 06/17/16 at 10:30 Metoprolol Succinate (Toprol Xl) 50 mg BID PO Last administered on 06/27/16 21 :22; Admin Dose 50 MG; Start 06/17/16 at 09:00 Atorvastatin Calcium (Lipitor) 80 mg HS PO Last administered on 06/27/16 21:18 ; Admin Dose 80 MG; Start 06/17/16 at 21:00 Lorazepam (Ativan) 2 mg HS PRN PO INSOMNIA Last administered on 06/25/16 21:40 ; Admin Dose 2 MG; Start 06/17/16 at 08:30 Aspirin (Halfprin) 81 mg DAILY PO Last administered on 06/28/16 08:08; Admin Dose 81 MG; Start 06/17/16 at 09:00 Lisinopril (Zestril) 10 mg DAILY PO Last administered on 06/27/16 09:06; Admin Dose 10 MG; Start 06/17/16 at 09:00 Pramipexole (Mirapex) 0.25 mg HS PO Last administered on 06/27/16 21:18; Admin Dose 0.25 MG; Start 06/17/16 at 21:00 Pantoprazole (Protonix Tab) 40 mg DAILY@06 PO Last administered on 06/28/16 06 :08; Admin Dose 40 MG; Start 06/18/16 at 06:00 Ondansetron HCl (Zofran Inj) 4 mg Q6H PRN IV NAUSEA AND/OR VOMITING Last administered on 06/28/16 00:30; Admin Dose 4 MG; Start 06/17/16 at 08:30 Vancomycin HCl (Vancomycin Oral Syringe) 125 mg Q6 PO Last administered on 06/28 13:16; Admin Dose 125 MG; Start 06/17/16 at 12:00 Isosorbide Mononitrate (Imdur) 60 mg DAILY PO Last administered on 06/27/16 09 :06; Admin Dose 60 MG; Start 06/17/16 at 09:00 Diphenhydramine HCl (Benadryl) 50 mg Q6H PRN IV ITCHING Last administered on 15:22; Admin Dose 50 MG; Start 06/17/16 at 09:30 Hydromorphone HCl (Dilaudid) 1 mg Q3H PRN IV PAIN Last administered on 15:22; Admin Dose 1 MG; Start 06/17/16 at 12:30 Clonidine (Catapres) 0.1 mg Q6H PRN PO SBP > 160mmHg Last administered on 05:36; Admin Dose 0.1 MG; Start 06/18/16 at 00:00 Diagnostic Test (Pha) (Accucheck) 1 ea 02 XX Last administered on 06/28/16 02: 00; Admin Dose 1 EA; Start 06/19/16 at 02:00 Miscellaneous Information 1 ea NOTE XX ; Start 06/18/16 at 13:00 Glucose (Glutose) 15 gm Q15M PRN PO DECREASED GLUCOSE; Start 06/18/16 at 13:00 Glucose (Glutose) 22.5 gm Q15M PRN PO DECREASED GLUCOSE; Start 06/18/16 at 13:00 Dextrose (D50w Syringe) 25 ml Q15M PRN IV DECREASED GLUCOSE Last administered on 06/20/16 08:14; Admin Dose 25 ML; Start 06/18/16 at 13:00 Dextrose (D50w Syringe) 50 ml Q15M PRN IV DECREASED GLUCOSE; Start 06/18/16 at 13:00 Glucagon (Glucagen) 1 mg Q15M PRN IM DECREASED GLUCOSE; Start 06/18/16 at 13:00 Glucose (Glutose) 15 gm Q15M PRN BUCCAL DECREASED GLUCOSE; Start 06/18/16 at 13: 00 Baclofen 5 mg 5 mg BID PRN PO hiccups Last administered on 06/25/16 21:50; Admin Dose 5 MG; Start 06/18/16 at 13:30 Metronidazole (Flagyl 500 Mg (Pmx)) 100 ml @ 100 mls/hr Q8 IVPB Last administered on 06/28/16 13:17; Admin Dose 100 MLS/HR; Start 06/24/16 at 14:00 Lactobacillus Acidoph/Bulgaricus (Floranex) 1 tab TID PO Last administered on 13:16; Admin Dose 1 TAB; Start 06/24/16 at 21:00 KALPANA MARTINEZ MD Jun 28, 2016 17:49
[2016-06-28] MEDS: [UNRECOGNIZED DRUG - REMARK] SC SCH ×2 (18:15→19:50)
[2016-06-28] MEDS: ATORVASTATIN 80 MG TAB PO SCH (20:20)
[2016-06-28] MEDS: PRAMIPEXOLE 0.25 MG TAB PO SCH (20:20)
[2016-06-29] MEDS: DIPHENHYDRAMINE 50 MG INJ IV PRN ×4 (03:04→20:59)
[2016-06-29] MEDS: HYDROmorphONE 1 MG/ML SYG IV PRN ×8 (03:04→20:58)
[2016-06-29] MEDS: metroNIDAZOLE 500 MG/NS (PMX) 100 ML IVPB SCH ×3 (05:48→22:17)
[2016-06-29] MEDS: VANCOMYCIN HCL 250 MG/5ML POSYG PO SCH ×3 (05:48→17:59)
[2016-06-29] MEDS: PANTOPRAZOLE (EC) 40 MG TAB PO SCH (05:50)
[2016-06-29 05:59] LABS: BASOPHIL # 0.1 10^3/ul (0.0-0.1); BASOPHILS % 1.4 % (0.0-2.0); EOSINOPHILS # 0.5 10^3/ul (0.0-0.5); EOSINOPHILS % 9.8 % (0.0-7.0); HEMATOCRIT 33.4 % (42.0-52.0); LYMPHOCYTES # 1.2 10^3/ul (0.8-2.9); LYMPHOCYTES % 22.6 % (15.0-51.0); MEAN CORPUSCULAR HGB CONC 32.9 g/dl (32.0-37.0); MEAN CORPUSCULAR VOLUME 91.2 fl (82.0-101.0); MEAN PLATELET VOLUME 9.8 fl (7.4-10.4); MONOCYTE # 0.5 10^3/ul (0.3-0.9); NEUTROPHIL # 2.9 10^3/ul (1.6-7.5); NEUTROPHILS % 56.2 % (39.0-77.0); PLATELET COUNT 165 10^3/UL (140-440); RED BLOOD COUNT 3.66 10^6/ul (4.70-6.10); RED CELL DISTRIBUTION WIDTH 16.3 % (11.5-14.5); UNCORRECTED WBC 5.2 10^3/ul (4.8-10.8); WHITE BLOOD COUNT 5.2 10^3/ul (4.8-10.8)
[2016-06-29 06:06] LABS: POTASSIUM 4.6 mmol/L (3.5-5.1)
[2016-06-29 06:08] LABS: CREATININE 6.27 mg/dl (0.61-1.24)
[2016-06-29 06:09] LABS: CALCIUM 8.2 mg/dl (8.4-10.2); PHOSPHORUS 4.6 mg/dl (2.5-4.9)
[2016-06-29 06:52] LABS: CONDITION 1; LH ANALYZER COMMENTS 1
[2016-06-29 07:31] VITALS: BP 166/91; RESP 18
[2016-06-29] MEDS: ACCUCHECK XX SCH ×7 (08:09→23:00)
[2016-06-29] MEDS: SEVELAMER 800 MG TAB PO SCH ×3 (08:11→17:59)
[2016-06-29] MEDS: CALCIUM ACETATE 667 MG CAP PO SCH ×3 (08:11→17:59)
[2016-06-29] MEDS: ASPIRIN (EC) 81 MG TAB PO SCH (08:12)
[2016-06-29] MEDS: LACTOBACILLUS CHEW TAB PO SCH ×3 (08:12→20:15)
[2016-06-29] MEDS: PRASUGREL HYDROCHLORIDE 10 MG TABLET PO SCH (08:12)
[2016-06-29] MEDS: METOPROLOL (XL) 50 MG TAB PO SCH ×2 (08:13→20:16)
[2016-06-29] MEDS: LISINOPRIL 10 MG TAB PO SCH (08:13)
[2016-06-29] MEDS: ISOSORBIDE MONONITRATE(SR)60 MG TAB PO SCH (08:13)
--- NOTE | 2016-06-29 09:48 | CONS ---
Date/Time of Note Date/Time of Note DATE: 06/29/16 TIME: 09:45 Assessment/Plan Assessment/Plan Chief Complaint/Hosp Course Patient well known to me. Type 1 diabetic with multiple chronic complications including retinal, renal and neuologic complications. Admitted for colitis. 1 specimen positive for C. Difficile. Patient states blood sugars have been more difficult to control since being admitted with colitis. Problems: (1) Diabetes mellitus type 1, controlled, with complications Status: Chronic Comment: Better glycemic control with increase accuchecks allowing patient to make corrections via insulin pump. Consultation Date/Type/Reason Admit Date/Time Jun 19, 2016 at 13:42 Initial Consult Date 06/28/16 Type of Consultation: endocrine Referring Provider: WILMER RODRIGUEZ MD 24 HR Interval Summary Free Text/Dictation Feeling better today. Stool less loose. Blood sugars better controlled with increased corrections. Exam/Review of Systems Vital Signs Vitals Vital Signs Date Time Temp Pulse Resp B/P Pulse Ox O2 Delivery O2 Flow Rate FiO2 06/29/16 07:31 98.1 74 18 166/91 100 Intake and Output 06/28/16 06/28/16 06/29/16 15:00 23:00 07:00 Intake Total 700 ml 820 ml 820 ml Output Total 2500 ml 440 ml 400 ml Balance -1800 ml 380 ml 420 ml Exam Constitutional: alert, oriented, well developed Neck: supple Respiratory: clear to auscultation Cardiovascular: regular rate and rhythm Gastrointestinal: soft Musculoskeletal: nl extremities to inspection Extremities: normal pulses Results POC glucose reviewed Result Diagram: 06/29/16 0506 06/29/16 0506 Results 24 hrs Laboratory Tests Test 06/28/16 12:20 06/28/16 17:43 06/28/16 20:09 06/28/16 21:46 Bedside Glucose 204 211 167 155 Test 06/29/16 05:06 06/29/16 07:26 06/29/16 09:28 Anion Gap 18 H Basophils # 0.1 Basophils % 1.4 Blood Morphology Comment Blood Urea Nitrogen 35 #H Calcium Level 8.2 L Carbon Dioxide Level 26 Chloride Level 98 Creatinine 6.27 H Eosinophils # 0.5 Eosinophils % 9.8 H Glucose Level 117 # Hematocrit 33.4 L Hemoglobin 11.0 L Lymphocytes # 1.2 Lymphocytes % 22.6 Mean Corpuscular Hemoglobin 30.0 Mean Corpuscular Hemoglobin Concent 32.9 Mean Corpuscular Volume 91.2 Mean Platelet Volume 9.8 Monocytes # 0.5 Monocytes % 10.0 Neutrophils # 2.9 Neutrophils % 56.2 Nucleated Red Blood Cells # 0.0 Nucleated Red Blood Cells % 0.0 Phosphorus Level 4.6 Platelet Count 165 Potassium Level 4.6 Red Blood Count 3.66 L Red Cell Distribution Width 16.3 H Sodium Level 137 White Blood Count 5.2 # Bedside Glucose 88 170 Medications Medications Current Medications Prasugrel (Effient) 10 mg DAILY PO Last administered on 06/29/16 08:12; Admin Dose 10 MG; Start 06/17/16 at 10:30 Metoprolol Succinate (Toprol Xl) 50 mg BID PO Last administered on 06/29/16 08 :13; Admin Dose 50 MG; Start 06/17/16 at 09:00 Atorvastatin Calcium (Lipitor) 80 mg HS PO Last administered on 06/28/16 20:20 ; Admin Dose 80 MG; Start 06/17/16 at 21:00 Lorazepam (Ativan) 2 mg HS PRN PO INSOMNIA Last administered on 06/25/16 21:40 ; Admin Dose 2 MG; Start 06/17/16 at 08:30 Aspirin (Halfprin) 81 mg DAILY PO Last administered on 06/29/16 08:12; Admin Dose 81 MG; Start 06/17/16 at 09:00 Lisinopril (Zestril) 10 mg DAILY PO Last administered on 06/29/16 08:13; Admin Dose 10 MG; Start 06/17/16 at 09:00 Pramipexole (Mirapex) 0.25 mg HS PO Last administered on 06/28/16 20:20; Admin Dose 0.25 MG; Start 06/17/16 at 21:00 Pantoprazole (Protonix Tab) 40 mg DAILY@06 PO Last administered on 06/29/16 05 :50; Admin Dose 40 MG; Start 06/18/16 at 06:00 Ondansetron HCl (Zofran Inj) 4 mg Q6H PRN IV NAUSEA AND/OR VOMITING Last administered on 06/28/16 00:30; Admin Dose 4 MG; Start 06/17/16 at 08:30 Vancomycin HCl (Vancomycin Oral Syringe) 125 mg Q6 PO Last administered on 06/29 05:48; Admin Dose 125 MG; Start 06/17/16 at 12:00 Isosorbide Mononitrate (Imdur) 60 mg DAILY PO Last administered on 06/29/16 08 :13; Admin Dose 60 MG; Start 06/17/16 at 09:00 Diphenhydramine HCl (Benadryl) 50 mg Q6H PRN IV ITCHING Last administered on 09:10; Admin Dose 50 MG; Start 06/17/16 at 09:30 Hydromorphone HCl (Dilaudid) 1 mg Q3H PRN IV PAIN Last administered on 09:40; Admin Dose 1 MG; Start 06/17/16 at 12:30 Clonidine (Catapres) 0.1 mg Q6H PRN PO SBP > 160mmHg Last administered on 05:36; Admin Dose 0.1 MG; Start 06/18/16 at 00:00 Miscellaneous Information 1 ea NOTE XX ; Start 06/18/16 at 13:00 Glucose (Glutose) 15 gm Q15M PRN PO DECREASED GLUCOSE; Start 06/18/16 at 13:00 Glucose (Glutose) 22.5 gm Q15M PRN PO DECREASED GLUCOSE; Start 06/18/16 at 13:00 Dextrose (D50w Syringe) 25 ml Q15M PRN IV DECREASED GLUCOSE Last administered on 06/20/16 08:14; Admin Dose 25 ML; Start 06/18/16 at 13:00 Dextrose (D50w Syringe) 50 ml Q15M PRN IV DECREASED GLUCOSE; Start 06/18/16 at 13:00 Glucagon (Glucagen) 1 mg Q15M PRN IM DECREASED GLUCOSE; Start 06/18/16 at 13:00 Glucose (Glutose) 15 gm Q15M PRN BUCCAL DECREASED GLUCOSE; Start 06/18/16 at 13: 00 Baclofen 5 mg 5 mg BID PRN PO hiccups Last administered on 06/25/16 21:50; Admin Dose 5 MG; Start 06/18/16 at 13:30 Metronidazole (Flagyl 500 Mg (Pmx)) 100 ml @ 100 mls/hr Q8 IVPB Last administered on 06/29/16 05:48; Admin Dose 100 MLS/HR; Start 06/24/16 at 14:00 Lactobacillus Acidoph/Bulgaricus (Floranex) 1 tab TID PO Last administered on 08:12; Admin Dose 1 TAB; Start 06/24/16 at 21:00 KALPANA MARTINEZ MD Jun 29, 2016 09:48
[2016-06-29] MEDS: [UNRECOGNIZED DRUG - REMARK] SC SCH ×3 (10:14→21:00)
--- NOTE | 2016-06-29 10:33 | CONS ---
Date/Time of Note Date/Time of Note DATE: 06/29/16 TIME: 10:31 Assessment/Plan Assessment/Plan Additional Assessment/Plan 1. CKD, next HD scheduled tomm 2. C diff colitis is resolving 3. Foot pain is less, ?neuropathic (added B12 level) Consultation Date/Type/Reason Admit Date/Time Jun 19, 2016 at 13:42 Type of Consultation: endocrine Referring Provider: WILMER RODRIGUEZ MD Detailed Summary Respiratory: No shortness of breath Cardiovascular: No chest pain Gastrointestinal: no complaints (stools have firmed up) Genitourinary: no complaints Neurologic: other (feet are burning and tinlging less today) Exam/Review of Systems Vital Signs Vitals Vital Signs Date Time Temp Pulse Resp B/P Pulse Ox O2 Delivery O2 Flow Rate FiO2 06/29/16 07:31 98.1 74 18 166/91 100 Intake and Output 06/28/16 06/28/16 06/29/16 15:00 23:00 07:00 Intake Total 700 ml 820 ml 820 ml Output Total 2500 ml 440 ml 400 ml Balance -1800 ml 380 ml 420 ml Exam Neck: No jvd Respiratory: clear to auscultation Cardiovascular: regular rate and rhythm Gastrointestinal: soft Extremities: No edema 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: No focal weakness Results Result Diagram: 06/29/16 0506 06/29/16 0506 Results 24 hrs Laboratory Tests Test 06/28/16 12:20 06/28/16 17:43 06/28/16 20:09 06/28/16 21:46 Bedside Glucose 204 211 167 155 Test 06/29/16 05:06 06/29/16 07:26 06/29/16 09:28 Anion Gap 18 H Basophils # 0.1 Basophils % 1.4 Blood Morphology Comment Blood Urea Nitrogen 35 #H Calcium Level 8.2 L Carbon Dioxide Level 26 Chloride Level 98 Creatinine 6.27 H Eosinophils # 0.5 Eosinophils % 9.8 H Glucose Level 117 # Hematocrit 33.4 L Hemoglobin 11.0 L Lymphocytes # 1.2 Lymphocytes % 22.6 Mean Corpuscular Hemoglobin 30.0 Mean Corpuscular Hemoglobin Concent 32.9 Mean Corpuscular Volume 91.2 Mean Platelet Volume 9.8 Monocytes # 0.5 Monocytes % 10.0 Neutrophils # 2.9 Neutrophils % 56.2 Nucleated Red Blood Cells # 0.0 Nucleated Red Blood Cells % 0.0 Phosphorus Level 4.6 Platelet Count 165 Potassium Level 4.6 Red Blood Count 3.66 L Red Cell Distribution Width 16.3 H Sodium Level 137 White Blood Count 5.2 # Bedside Glucose 88 170 Medications Medications Current Medications Prasugrel (Effient) 10 mg DAILY PO Last administered on 06/29/16 08:12; Admin Dose 10 MG; Start 06/17/16 at 10:30 Metoprolol Succinate (Toprol Xl) 50 mg BID PO Last administered on 06/29/16 08 :13; Admin Dose 50 MG; Start 06/17/16 at 09:00 Atorvastatin Calcium (Lipitor) 80 mg HS PO Last administered on 06/28/16 20:20 ; Admin Dose 80 MG; Start 06/17/16 at 21:00 Lorazepam (Ativan) 2 mg HS PRN PO INSOMNIA Last administered on 06/25/16 21:40 ; Admin Dose 2 MG; Start 06/17/16 at 08:30 Aspirin (Halfprin) 81 mg DAILY PO Last administered on 06/29/16 08:12; Admin Dose 81 MG; Start 06/17/16 at 09:00 Lisinopril (Zestril) 10 mg DAILY PO Last administered on 06/29/16 08:13; Admin Dose 10 MG; Start 06/17/16 at 09:00 Pramipexole (Mirapex) 0.25 mg HS PO Last administered on 06/28/16 20:20; Admin Dose 0.25 MG; Start 06/17/16 at 21:00 Pantoprazole (Protonix Tab) 40 mg DAILY@06 PO Last administered on 06/29/16 05 :50; Admin Dose 40 MG; Start 06/18/16 at 06:00 Ondansetron HCl (Zofran Inj) 4 mg Q6H PRN IV NAUSEA AND/OR VOMITING Last administered on 06/28/16 00:30; Admin Dose 4 MG; Start 06/17/16 at 08:30 Vancomycin HCl (Vancomycin Oral Syringe) 125 mg Q6 PO Last administered on 06/29 05:48; Admin Dose 125 MG; Start 06/17/16 at 12:00 Isosorbide Mononitrate (Imdur) 60 mg DAILY PO Last administered on 06/29/16 08 :13; Admin Dose 60 MG; Start 06/17/16 at 09:00 Diphenhydramine HCl (Benadryl) 50 mg Q6H PRN IV ITCHING Last administered on 09:10; Admin Dose 50 MG; Start 06/17/16 at 09:30 Hydromorphone HCl (Dilaudid) 1 mg Q3H PRN IV PAIN Last administered on 09:40; Admin Dose 1 MG; Start 06/17/16 at 12:30 Clonidine (Catapres) 0.1 mg Q6H PRN PO SBP > 160mmHg Last administered on 05:36; Admin Dose 0.1 MG; Start 06/18/16 at 00:00 Miscellaneous Information 1 ea NOTE XX ; Start 06/18/16 at 13:00 Glucose (Glutose) 15 gm Q15M PRN PO DECREASED GLUCOSE; Start 06/18/16 at 13:00 Glucose (Glutose) 22.5 gm Q15M PRN PO DECREASED GLUCOSE; Start 06/18/16 at 13:00 Dextrose (D50w Syringe) 25 ml Q15M PRN IV DECREASED GLUCOSE Last administered on 06/20/16 08:14; Admin Dose 25 ML; Start 06/18/16 at 13:00 Dextrose (D50w Syringe) 50 ml Q15M PRN IV DECREASED GLUCOSE; Start 06/18/16 at 13:00 Glucagon (Glucagen) 1 mg Q15M PRN IM DECREASED GLUCOSE; Start 06/18/16 at 13:00 Glucose (Glutose) 15 gm Q15M PRN BUCCAL DECREASED GLUCOSE; Start 06/18/16 at 13: 00 Baclofen 5 mg 5 mg BID PRN PO hiccups Last administered on 06/25/16 21:50; Admin Dose 5 MG; Start 06/18/16 at 13:30 Metronidazole (Flagyl 500 Mg (Pmx)) 100 ml @ 100 mls/hr Q8 IVPB Last administered on 06/29/16 05:48; Admin Dose 100 MLS/HR; Start 06/24/16 at 14:00 Lactobacillus Acidoph/Bulgaricus (Floranex) 1 tab TID PO Last administered on 08:12; Admin Dose 1 TAB; Start 06/24/16 at 21:00 MANE LESLIE MD Jun 29, 2016 10:33
--- NOTE | 2016-06-29 10:50 | PN ---
Date/Time of Note Date/Time of Note DATE: 06/29/16 TIME: 10:48 Assessment/Plan VTE Prophylaxis VTE Prophylaxis Intervention: SCD's Lines/Catheters IV C[facility]ter Type (from [facility]): PermaCath Urinary Cath still in place: No Assessment/Plan Assessment/Plan 1. Clostridium difficile colitis- diarrhea improved per patient - PER id - p.o. vancomycin. - contact isolation. 2. End-stage renal disease. - Per Dr. Hubbard in nephrology consultation. - HD 3. Hyperkalemia. - HD - MONITOR bmp 4. Diabetes mellitus. - glycemic control with patient insulin pump. Continue to monitor blood sugar. - Hyperglycemia- Echocardiology consult appreciated 5. Dyslipidemia by history. Continue statin. 6. Coronary artery disease status post in-stent thrombosis, left anterior descending, status post percutaneous coronary intervention. Continue patient on aspirin and metoprolol. 7. Hypertension. Continue patient on clonidine. Continue lisinopril and Toprol XL. Continue Protonix for peptic ulcer disease prophylaxis. Further recommendations based on clinical course Further recommendations based on clinical course. Plan of care discussed with Dr. Rosales. Subjective 24 Hr Interval Summary Constitutional: improved Eyes: no complaints ENT: no complaints Respiratory: no complaints Cardiovascular: no complaints Gastrointestinal: no complaints Genitourinary: other Musculoskeletal: no complaints Skin: no complaints Neurologic: no complaints Endocrine: no complaints Exam/Review of Systems Vital Signs Vitals Vital Signs Date Time Temp Pulse Resp B/P Pulse Ox O2 Delivery O2 Flow Rate FiO2 06/29/16 07:31 98.1 74 18 166/91 100 Intake and Output 06/28/16 06/28/16 06/29/16 15:00 23:00 07:00 Intake Total 700 ml 820 ml 820 ml Output Total 2500 ml 440 ml 400 ml Balance -1800 ml 380 ml 420 ml Exam Constitutional: alert, oriented, well developed Psych: nl mood/affect Head: atraumatic Eyes: EOMI, nl sclera, other ENMT: nl external ears & nose Neck: non-tender Respiratory: clear to auscultation Cardiovascular: nl pulses Gastrointestinal: non-tender, soft Genitourinary - Male: other Musculoskeletal: other 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: nl mental status, nl speech Skin: nl turgor Results Result Diagram: 06/29/16 0506 06/29/16 0506 Results 24 hrs Laboratory Tests Test 06/28/16 12:20 06/28/16 17:43 06/28/16 20:09 06/28/16 21:46 Bedside Glucose 204 211 167 155 Test 06/29/16 05:06 06/29/16 07:26 06/29/16 09:28 Anion Gap 18 H Basophils # 0.1 Basophils % 1.4 Blood Morphology Comment Blood Urea Nitrogen 35 #H Calcium Level 8.2 L Carbon Dioxide Level 26 Chloride Level 98 Creatinine 6.27 H Eosinophils # 0.5 Eosinophils % 9.8 H Glucose Level 117 # Hematocrit 33.4 L Hemoglobin 11.0 L Lymphocytes # 1.2 Lymphocytes % 22.6 Mean Corpuscular Hemoglobin 30.0 Mean Corpuscular Hemoglobin Concent 32.9 Mean Corpuscular Volume 91.2 Mean Platelet Volume 9.8 Monocytes # 0.5 Monocytes % 10.0 Neutrophils # 2.9 Neutrophils % 56.2 Nucleated Red Blood Cells # 0.0 Nucleated Red Blood Cells % 0.0 Phosphorus Level 4.6 Platelet Count 165 Potassium Level 4.6 Red Blood Count 3.66 L Red Cell Distribution Width 16.3 H Sodium Level 137 White Blood Count 5.2 # Bedside Glucose 88 170 Medications Medications Current Medications Prasugrel (Effient) 10 mg DAILY PO Last administered on 06/29/16 08:12; Admin Dose 10 MG; Start 06/17/16 at 10:30 Metoprolol Succinate (Toprol Xl) 50 mg BID PO Last administered on 06/29/16 08 :13; Admin Dose 50 MG; Start 06/17/16 at 09:00 Atorvastatin Calcium (Lipitor) 80 mg HS PO Last administered on 06/28/16 20:20 ; Admin Dose 80 MG; Start 06/17/16 at 21:00 Lorazepam (Ativan) 2 mg HS PRN PO INSOMNIA Last administered on 06/25/16 21:40 ; Admin Dose 2 MG; Start 06/17/16 at 08:30 Aspirin (Halfprin) 81 mg DAILY PO Last administered on 06/29/16 08:12; Admin Dose 81 MG; Start 06/17/16 at 09:00 Lisinopril (Zestril) 10 mg DAILY PO Last administered on 06/29/16 08:13; Admin Dose 10 MG; Start 06/17/16 at 09:00 Pramipexole (Mirapex) 0.25 mg HS PO Last administered on 06/28/16 20:20; Admin Dose 0.25 MG; Start 06/17/16 at 21:00 Pantoprazole (Protonix Tab) 40 mg DAILY@06 PO Last administered on 06/29/16 05 :50; Admin Dose 40 MG; Start 06/18/16 at 06:00 Ondansetron HCl (Zofran Inj) 4 mg Q6H PRN IV NAUSEA AND/OR VOMITING Last administered on 06/28/16 00:30; Admin Dose 4 MG; Start 06/17/16 at 08:30 Vancomycin HCl (Vancomycin Oral Syringe) 125 mg Q6 PO Last administered on 06/29 05:48; Admin Dose 125 MG; Start 06/17/16 at 12:00 Isosorbide Mononitrate (Imdur) 60 mg DAILY PO Last administered on 06/29/16 08 :13; Admin Dose 60 MG; Start 06/17/16 at 09:00 Diphenhydramine HCl (Benadryl) 50 mg Q6H PRN IV ITCHING Last administered on 09:10; Admin Dose 50 MG; Start 06/17/16 at 09:30 Hydromorphone HCl (Dilaudid) 1 mg Q3H PRN IV PAIN Last administered on 09:40; Admin Dose 1 MG; Start 06/17/16 at 12:30 Clonidine (Catapres) 0.1 mg Q6H PRN PO SBP > 160mmHg Last administered on 05:36; Admin Dose 0.1 MG; Start 06/18/16 at 00:00 Miscellaneous Information 1 ea NOTE XX ; Start 06/18/16 at 13:00 Glucose (Glutose) 15 gm Q15M PRN PO DECREASED GLUCOSE; Start 06/18/16 at 13:00 Glucose (Glutose) 22.5 gm Q15M PRN PO DECREASED GLUCOSE; Start 06/18/16 at 13:00 Dextrose (D50w Syringe) 25 ml Q15M PRN IV DECREASED GLUCOSE Last administered on 06/20/16 08:14; Admin Dose 25 ML; Start 06/18/16 at 13:00 Dextrose (D50w Syringe) 50 ml Q15M PRN IV DECREASED GLUCOSE; Start 06/18/16 at 13:00 Glucagon (Glucagen) 1 mg Q15M PRN IM DECREASED GLUCOSE; Start 06/18/16 at 13:00 Glucose (Glutose) 15 gm Q15M PRN BUCCAL DECREASED GLUCOSE; Start 06/18/16 at 13: 00 Baclofen 5 mg 5 mg BID PRN PO hiccups Last administered on 06/25/16 21:50; Admin Dose 5 MG; Start 06/18/16 at 13:30 Metronidazole (Flagyl 500 Mg (Pmx)) 100 ml @ 100 mls/hr Q8 IVPB Last administered on 06/29/16 05:48; Admin Dose 100 MLS/HR; Start 06/24/16 at 14:00 Lactobacillus Acidoph/Bulgaricus (Floranex) 1 tab TID PO Last administered on 08:12; Admin Dose 1 TAB; Start 06/24/16 at 21:00 Amlodipine Besylate (Norvasc) 5 mg BID PO ; Start 06/29/16 at 21:00; Status UNV Diphenhydramine HCl (Benadryl) 50 mg ONCE ONCE IV ; Start 06/30/16 at 10:00; Stop 06/30/16 at 10:01; Status UNV Lorazepam (Ativan) 1 mg ONCE ONCE IV ; Start 06/30/16 at 10:30; Stop 06/30/16 at 10:31; Status UNV PEDRO BENSON Jun 29, 2016 10:50
[2016-06-29 19:55] VITALS: BP 127/77; PULSE 106; RESP 18
[2016-06-29 20:04] VITALS: BP 176/100; RESP 16
[2016-06-29] MEDS: ATORVASTATIN 80 MG TAB PO SCH (20:15)
[2016-06-29] MEDS: PRAMIPEXOLE 0.25 MG TAB PO SCH (20:15)
[2016-06-29] MEDS: AMLODIPINE 5 MG TAB PO SCH (20:15)
[2016-06-29 22:27] VITALS: BP 133/77; PULSE 72
[2016-06-30] VITALS (8 sets, daily range): BP systolic 117–187; BP diastolic 76–95; PULSE 74–82; RESP 12–18
[2016-06-30] MEDS: VANCOMYCIN HCL 250 MG/5ML POSYG PO SCH ×5 (00:05→17:21)
[2016-06-30] MEDS: HYDROmorphONE 1 MG/ML SYG IV PRN ×8 (03:00→21:03)
[2016-06-30] MEDS: DIPHENHYDRAMINE 50 MG INJ IV PRN ×4 (03:08→21:02)
[2016-06-30 05:45] LABS: BASOPHIL # 0.1 10^3/ul (0.0-0.1); BASOPHILS % 0.9 % (0.0-2.0); EOSINOPHILS # 0.5 10^3/ul (0.0-0.5); EOSINOPHILS % 8.2 % (0.0-7.0); HEMATOCRIT 32.2 % (42.0-52.0); HEMOGLOBIN 10.7 g/dl (14.0-18.0); LYMPHOCYTES # 1.1 10^3/ul (0.8-2.9); MEAN CORPUSCULAR HEMOGLOBIN 30.2 pg (29.0-33.0); MEAN CORPUSCULAR HGB CONC 33.2 g/dl (32.0-37.0); MEAN PLATELET VOLUME 9.6 fl (7.4-10.4); MONOCYTE # 0.5 10^3/ul (0.3-0.9); MONOCYTES % 9.2 % (0.0-11.0); NEUTROPHIL # 3.7 10^3/ul (1.6-7.5); NEUTROPHILS % 62.7 % (39.0-77.0); PLATELET COUNT 173 10^3/UL (140-440); RED BLOOD COUNT 3.54 10^6/ul (4.70-6.10); RED CELL DISTRIBUTION WIDTH 16.5 % (11.5-14.5)
[2016-06-30 05:54] LABS: CONDITION 1; LH ANALYZER COMMENTS 1
[2016-06-30] MEDS: PANTOPRAZOLE (EC) 40 MG TAB PO SCH (05:59)
[2016-06-30] MEDS: metroNIDAZOLE 500 MG/NS (PMX) 100 ML IVPB SCH ×3 (05:59→22:06)
[2016-06-30 06:04] LABS: CREATININE 7.85 mg/dl (0.61-1.24)
[2016-06-30 06:05] LABS: CALCIUM 8.1 mg/dl (8.4-10.2)
[2016-06-30] MEDS: CALCIUM ACETATE 667 MG CAP PO SCH ×3 (08:26→17:20)
[2016-06-30] MEDS: LACTOBACILLUS CHEW TAB PO SCH ×3 (08:26→21:01)
[2016-06-30] MEDS: SEVELAMER 800 MG TAB PO SCH ×3 (08:27→17:20)
[2016-06-30] MEDS: PRASUGREL HYDROCHLORIDE 10 MG TABLET PO SCH (08:27)
[2016-06-30] MEDS: ACCUCHECK XX SCH ×7 (08:27→21:00)
[2016-06-30] MEDS: ASPIRIN (EC) 81 MG TAB PO SCH (08:27)
[2016-06-30] MEDS: AMLODIPINE 5 MG TAB PO SCH (08:27)
[2016-06-30] MEDS: ISOSORBIDE MONONITRATE(SR)60 MG TAB PO SCH (08:27)
[2016-06-30] MEDS: METOPROLOL (XL) 50 MG TAB PO SCH ×2 (08:28→21:02)
[2016-06-30] MEDS: LISINOPRIL 10 MG TAB PO SCH (08:28)
[2016-06-30] MEDS: [UNRECOGNIZED DRUG - REMARK] SC SCH (09:20)
[2016-06-30] MEDS ORDERED: DIPHENHYDRAMINE 50 MG INJ IV ONE (10:00)
[2016-06-30] MEDS ORDERED: LORAZEPAM 2 MG INJ IV ONE (10:30)
--- NOTE | 2016-06-30 11:30 | CONS ---
Date/Time of Note Date/Time of Note DATE: 06/30/16 TIME: 11:27 Assessment/Plan Assessment/Plan Additional Assessment/Plan 1. CKD, now being dialzyed 2. BP is elevated, changed Catapres to qid, scheduled 3. C diff being treated Consultation Date/Type/Reason Admit Date/Time Jun 19, 2016 at 13:42 Type of Consultation: endocrine Referring Provider: WILMER RODRIGUEZ MD Detailed Summary Respiratory: No cough, No shortness of breath Cardiovascular: chest pain Gastrointestinal: other (frquent more formed loose stools with brb) Neurologic: other (toes burn and numb) Exam/Review of Systems Vital Signs Vitals Vital Signs Date Time Temp Pulse Resp B/P Pulse Ox O2 Delivery O2 Flow Rate FiO2 06/30/16 11:00 81 06/30/16 10:00 16 06/30/16 07:38 98.1 187/91 100 Intake and Output 06/29/16 06/29/16 06/30/16 15:00 23:00 07:00 Intake Total 100 ml 600 ml 600 ml Balance 100 ml 600 ml 600 ml Exam Neck: No jvd Respiratory: clear to auscultation Cardiovascular: regular rate and rhythm Gastrointestinal: soft, No hepatomegaly, No splenomegaly Extremities: edema (and reduced pulses) Results Result Diagram: 06/30/16 0450 06/30/16 0450 Results 24 hrs Laboratory Tests Test 06/29/16 11:55 06/29/16 14:01 06/29/16 17:17 06/29/16 21:06 Bedside Glucose 232 H 190 80 182 Test 06/29/16 23:05 06/30/16 04:50 06/30/16 08:24 06/30/16 10:57 Bedside Glucose 260 H 154 202 Anion Gap 19 H Basophils # 0.1 Basophils % 0.9 Blood Morphology Comment Blood Urea Nitrogen 47 #H Calcium Level 8.1 L Carbon Dioxide Level 23 Chloride Level 99 Creatinine 7.85 H Eosinophils # 0.5 Eosinophils % 8.2 H Glucose Level 154 Hematocrit 32.2 L Hemoglobin 10.7 L Lymphocytes # 1.1 Lymphocytes % 19.0 Mean Corpuscular Hemoglobin 30.2 Mean Corpuscular Hemoglobin Concent 33.2 Mean Corpuscular Volume 91.0 Mean Platelet Volume 9.6 Monocytes # 0.5 Monocytes % 9.2 Neutrophils # 3.7 Neutrophils % 62.7 Nucleated Red Blood Cells # 0.0 Nucleated Red Blood Cells % 0.0 Platelet Count 173 Potassium Level 5.0 Red Blood Count 3.54 L Red Cell Distribution Width 16.5 H Sodium Level 136 Vitamin B12 Level 740 White Blood Count 6.0 Medications Medications Current Medications Prasugrel (Effient) 10 mg DAILY PO Last administered on 06/30/16 08:27; Admin Dose 10 MG; Start 06/17/16 at 10:30 Metoprolol Succinate (Toprol Xl) 50 mg BID PO Last administered on 06/29/16 20 :16; Admin Dose 50 MG; Start 06/17/16 at 09:00 Atorvastatin Calcium (Lipitor) 80 mg HS PO Last administered on 06/29/16 20:15 ; Admin Dose 80 MG; Start 06/17/16 at 21:00 Lorazepam (Ativan) 2 mg HS PRN PO INSOMNIA Last administered on 06/25/16 21:40 ; Admin Dose 2 MG; Start 06/17/16 at 08:30 Aspirin (Halfprin) 81 mg DAILY PO Last administered on 06/30/16 08:27; Admin Dose 81 MG; Start 06/17/16 at 09:00 Lisinopril (Zestril) 10 mg DAILY PO Last administered on 06/29/16 08:13; Admin Dose 10 MG; Start 06/17/16 at 09:00 Pramipexole (Mirapex) 0.25 mg HS PO Last administered on 06/29/16 20:15; Admin Dose 0.25 MG; Start 06/17/16 at 21:00 Pantoprazole (Protonix Tab) 40 mg DAILY@06 PO Last administered on 06/30/16 05 :59; Admin Dose 40 MG; Start 06/18/16 at 06:00 Ondansetron HCl (Zofran Inj) 4 mg Q6H PRN IV NAUSEA AND/OR VOMITING Last administered on 06/28/16 00:30; Admin Dose 4 MG; Start 06/17/16 at 08:30 Vancomycin HCl (Vancomycin Oral Syringe) 125 mg Q6 PO Last administered on 06/30 05:59; Admin Dose 125 MG; Start 06/17/16 at 12:00 Isosorbide Mononitrate (Imdur) 60 mg DAILY PO Last administered on 06/29/16 08 :13; Admin Dose 60 MG; Start 06/17/16 at 09:00 Diphenhydramine HCl (Benadryl) 50 mg Q6H PRN IV ITCHING Last administered on 09:11; Admin Dose 50 MG; Start 06/17/16 at 09:30 Hydromorphone HCl (Dilaudid) 1 mg Q3H PRN IV PAIN Last administered on 09:12; Admin Dose 1 MG; Start 06/17/16 at 12:30 Clonidine (Catapres) 0.1 mg Q6H PRN PO SBP > 160mmHg Last administered on 05:36; Admin Dose 0.1 MG; Start 06/18/16 at 00:00 Miscellaneous Information 1 ea NOTE XX ; Start 06/18/16 at 13:00 Glucose (Glutose) 15 gm Q15M PRN PO DECREASED GLUCOSE; Start 06/18/16 at 13:00 Glucose (Glutose) 22.5 gm Q15M PRN PO DECREASED GLUCOSE; Start 06/18/16 at 13:00 Dextrose (D50w Syringe) 25 ml Q15M PRN IV DECREASED GLUCOSE Last administered on 06/20/16 08:14; Admin Dose 25 ML; Start 06/18/16 at 13:00 Dextrose (D50w Syringe) 50 ml Q15M PRN IV DECREASED GLUCOSE; Start 06/18/16 at 13:00 Glucagon (Glucagen) 1 mg Q15M PRN IM DECREASED GLUCOSE; Start 06/18/16 at 13:00 Glucose (Glutose) 15 gm Q15M PRN BUCCAL DECREASED GLUCOSE; Start 06/18/16 at 13: 00 Baclofen 5 mg 5 mg BID PRN PO hiccups Last administered on 06/25/16 21:50; Admin Dose 5 MG; Start 06/18/16 at 13:30 Metronidazole (Flagyl 500 Mg (Pmx)) 100 ml @ 100 mls/hr Q8 IVPB Last administered on 06/30/16 05:59; Admin Dose 100 MLS/HR; Start 06/24/16 at 14:00 Lactobacillus Acidoph/Bulgaricus (Floranex) 1 tab TID PO Last administered on 08:26; Admin Dose 1 TAB; Start 06/24/16 at 21:00 Amlodipine Besylate (Norvasc) 5 mg BID PO Last administered on 06/29/16 20:15 ; Admin Dose 5 MG; Start 06/29/16 at 21:00 MANE LESLIE MD Jun 30, 2016 11:29
--- NOTE | 2016-06-30 19:05 | PN ---
Date/Time of Note Date/Time of Note DATE: 06/30/16 TIME: 19:02 Assessment/Plan VTE Prophylaxis VTE Prophylaxis Intervention: SCD's Lines/Catheters IV [facility] Type (from [facility] Perma Cath Urinary Cath still in place: No Assessment/Plan Chief Complaint/Hosp Course ASSESSMENT AND PLAN: 1. Clostridium difficile colitis. Continue patient on p.o. vancomycin. Repeat stool for C. difficile is negative. 2. End-stage renal disease. Patient is followed by Dr. Hubbard in nephrology consultation. The patient is continued on dialysis. 3. Hyperkalemia. Continue to monitor potassium level. 4. Diabetes mellitus. The patient has an insulin pump. Continue to monitor blood sugar. 5. Dyslipidemia by history. Continue statin. 6. Coronary artery disease status post in-stent thrombosis, left anterior descending, status post percutaneous coronary intervention. Continue patient on aspirin and metoprolol. 7. Hypertension. Continue patient on clonidine. Continue lisinopril and Toprol XL. 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 Continue Protonix for peptic ulcer disease prophylaxis. Further recommendations based on clinical course Further recommendations based on clinical course. Plan of care discussed with Dr. Rosales. Problems: Subjective 24 Hr Interval Summary Free Text/Dictation Patient's diarrhea improved, no fever nausea vomiting. Exam/Review of Systems Vital Signs Vitals Vital Signs Date Time Temp Pulse Resp B/P Pulse Ox O2 Delivery O2 Flow Rate FiO2 06/30/16 12:00 78 14 06/30/16 07:38 98.1 187/91 100 Intake and Output 06/29/16 06/29/16 06/30/16 15:00 23:00 07:00 Intake Total 100 ml 600 ml 600 ml Balance 100 ml 600 ml 600 ml Exam GENERAL: Well-developed, well-nourished gentleman in no acute distress. HEENT: Head is atraumatic, normocephalic. Patient has a right hyperesthesia left eye. Left pupil is equal, round, reactive to light and accommodation. NECK: Supple, no mass or thyromegaly. LUNGS: Clear bilaterally. HEART: Normal S1, S2. No murmurs, gallops, clicks, rubs noted. ABDOMEN: Round, soft, nondistended, nontender. Bowel sounds present. EXTREMITIES: No edema, clubbing, cyanosis. Pulses equal bilaterally 2+. The patient has bilateral upper extremity arteriovenous fistula. SKIN: There is no rash, petechiae noted. Patient has multiple tattoos with upper and lower extremities and trunk. NEUROLOGIC: Alert and oriented 3. Right chest PermCath. Results Result Diagram: 06/30/16 0450 06/30/16 0450 Results 24 hrs Laboratory Tests Test 06/29/16 21:06 06/29/16 23:05 06/30/16 04:50 06/30/16 08:24 Bedside Glucose 182 260 H 154 Anion Gap 19 H Basophils # 0.1 Basophils % 0.9 Blood Morphology Comment Blood Urea Nitrogen 47 #H Calcium Level 8.1 L Carbon Dioxide Level 23 Chloride Level 99 Creatinine 7.85 H Eosinophils # 0.5 Eosinophils % 8.2 H Glucose Level 154 Hematocrit 32.2 L Hemoglobin 10.7 L Lymphocytes # 1.1 Lymphocytes % 19.0 Mean Corpuscular Hemoglobin 30.2 Mean Corpuscular Hemoglobin Concent 33.2 Mean Corpuscular Volume 91.0 Mean Platelet Volume 9.6 Monocytes # 0.5 Monocytes % 9.2 Neutrophils # 3.7 Neutrophils % 62.7 Nucleated Red Blood Cells # 0.0 Nucleated Red Blood Cells % 0.0 Platelet Count 173 Potassium Level 5.0 Red Blood Count 3.54 L Red Cell Distribution Width 16.5 H Sodium Level 136 Vitamin B12 Level 740 White Blood Count 6.0 Test 06/30/16 10:57 06/30/16 12:16 06/30/16 14:01 06/30/16 17:18 Bedside Glucose 202 165 232 H 93 Medications Medications Current Medications Prasugrel (Effient) 10 mg DAILY PO Last administered on 06/30/16 08:27; Admin Dose 10 MG; Start 06/17/16 at 10:30 Metoprolol Succinate (Toprol Xl) 50 mg BID PO Last administered on 06/29/16 20 :16; Admin Dose 50 MG; Start 06/17/16 at 09:00 Atorvastatin Calcium (Lipitor) 80 mg HS PO Last administered on 06/29/16 20:15 ; Admin Dose 80 MG; Start 06/17/16 at 21:00 Lorazepam (Ativan) 2 mg HS PRN PO INSOMNIA Last administered on 06/25/16 21:40 ; Admin Dose 2 MG; Start 06/17/16 at 08:30 Aspirin (Halfprin) 81 mg DAILY PO Last administered on 06/30/16 08:27; Admin Dose 81 MG; Start 06/17/16 at 09:00 Lisinopril (Zestril) 10 mg DAILY PO Last administered on 06/29/16 08:13; Admin Dose 10 MG; Start 06/17/16 at 09:00 Pramipexole (Mirapex) 0.25 mg HS PO Last administered on 06/29/16 20:15; Admin Dose 0.25 MG; Start 06/17/16 at 21:00 Pantoprazole (Protonix Tab) 40 mg DAILY@06 PO Last administered on 06/30/16 05 :59; Admin Dose 40 MG; Start 06/18/16 at 06:00 Ondansetron HCl (Zofran Inj) 4 mg Q6H PRN IV NAUSEA AND/OR VOMITING Last administered on 06/28/16 00:30; Admin Dose 4 MG; Start 06/17/16 at 08:30 Vancomycin HCl (Vancomycin Oral Syringe) 125 mg Q6 PO Last administered on 06/30 17:21; Admin Dose 125 MG; Start 06/17/16 at 12:00 Isosorbide Mononitrate (Imdur) 60 mg DAILY PO Last administered on 06/29/16 08 :13; Admin Dose 60 MG; Start 06/17/16 at 09:00 Diphenhydramine HCl (Benadryl) 50 mg Q6H PRN IV ITCHING Last administered on 15:03; Admin Dose 50 MG; Start 06/17/16 at 09:30 Hydromorphone HCl (Dilaudid) 1 mg Q3H PRN IV PAIN Last administered on 18:10; Admin Dose 1 MG; Start 06/17/16 at 12:30 Miscellaneous Information 1 ea NOTE XX ; Start 06/18/16 at 13:00 Glucose (Glutose) 15 gm Q15M PRN PO DECREASED GLUCOSE; Start 06/18/16 at 13:00 Glucose (Glutose) 22.5 gm Q15M PRN PO DECREASED GLUCOSE; Start 06/18/16 at 13:00 Dextrose (D50w Syringe) 25 ml Q15M PRN IV DECREASED GLUCOSE Last administered on 06/20/16 08:14; Admin Dose 25 ML; Start 06/18/16 at 13:00 Dextrose (D50w Syringe) 50 ml Q15M PRN IV DECREASED GLUCOSE; Start 06/18/16 at 13:00 Glucagon (Glucagen) 1 mg Q15M PRN IM DECREASED GLUCOSE; Start 06/18/16 at 13:00 Glucose (Glutose) 15 gm Q15M PRN BUCCAL DECREASED GLUCOSE; Start 06/18/16 at 13: 00 Baclofen 5 mg 5 mg BID PRN PO hiccups Last administered on 06/25/16 21:50; Admin Dose 5 MG; Start 06/18/16 at 13:30 Metronidazole (Flagyl 500 Mg (Pmx)) 100 ml @ 100 mls/hr Q8 IVPB Last administered on 06/30/16 14:02; Admin Dose 100 MLS/HR; Start 06/24/16 at 14:00 Lactobacillus Acidoph/Bulgaricus (Floranex) 1 tab TID PO Last administered on 12:20; Admin Dose 1 TAB; Start 06/24/16 at 21:00 Clonidine (Catapres) 0.1 mg Q6 PO Last administered on 06/30/16 17:21; Admin Dose 0.1 MG; Start 06/30/16 at 12:00 ANGELINA CASTREJON Jun 30, 2016 19:04
[2016-06-30] MEDS: PRAMIPEXOLE 0.25 MG TAB PO SCH (21:01)
[2016-06-30] MEDS: ATORVASTATIN 80 MG TAB PO SCH (21:01)
[2016-07-01] VITALS (11 sets, daily range): BP systolic 98–174; BP diastolic 64–86; PULSE 72–93; RESP 18–24
[2016-07-01] MEDS: VANCOMYCIN HCL 250 MG/5ML POSYG PO SCH ×4 (00:02→17:16)
[2016-07-01] MEDS: HYDROmorphONE 1 MG/ML SYG IV PRN ×8 (00:10→21:01)
[2016-07-01] MEDS: DIPHENHYDRAMINE 50 MG INJ IV PRN ×4 (03:00→21:02)
[2016-07-01] MEDS: metroNIDAZOLE 500 MG/NS (PMX) 100 ML IVPB SCH ×2 (05:56→06:49)
[2016-07-01] MEDS: PANTOPRAZOLE (EC) 40 MG TAB PO SCH (06:02)
[2016-07-01 06:14] LABS: POTASSIUM 4.9 mmol/L (3.5-5.1)
[2016-07-01 06:16] LABS: CREATININE 7.43 mg/dl (0.61-1.24)
[2016-07-01 06:17] LABS: CALCIUM 8.3 mg/dl (8.4-10.2); PHOSPHORUS 4.1 mg/dl (2.5-4.9)
[2016-07-01 06:36] LABS: BASOPHILS % 0.4 % (0.0-2.0); EOSINOPHILS # 0.5 10^3/ul (0.0-0.5); EOSINOPHILS % 6.5 % (0.0-7.0); HEMATOCRIT 35.9 % (42.0-52.0); HEMOGLOBIN 11.8 g/dl (14.0-18.0); LYMPHOCYTES # 1.4 10^3/ul (0.8-2.9); LYMPHOCYTES % 18.7 % (15.0-51.0); MEAN CORPUSCULAR HGB CONC 32.8 g/dl (32.0-37.0); MEAN CORPUSCULAR VOLUME 91.5 fl (82.0-101.0); MONOCYTE # 0.6 10^3/ul (0.3-0.9); MONOCYTES % 7.6 % (0.0-11.0); NEUTROPHIL # 4.9 10^3/ul (1.6-7.5); NEUTROPHILS % 66.8 % (39.0-77.0); PLATELET COUNT 193 10^3/UL (140-440); RED BLOOD COUNT 3.92 10^6/ul (4.70-6.10); RED CELL DISTRIBUTION WIDTH 16.6 % (11.5-14.5); UNCORRECTED WBC 7.3 10^3/ul (4.8-10.8); WHITE BLOOD COUNT 7.3 10^3/ul (4.8-10.8)
[2016-07-01 06:53] LABS: CONDITION 1; LH ANALYZER COMMENTS 1
[2016-07-01] MEDS: ACCUCHECK XX SCH ×7 (07:40→21:47)
[2016-07-01] MEDS: CALCIUM ACETATE 667 MG CAP PO SCH ×3 (07:41→17:16)
[2016-07-01] MEDS: LACTOBACILLUS CHEW TAB PO SCH ×3 (07:41→21:08)
[2016-07-01] MEDS: SEVELAMER 800 MG TAB PO SCH ×3 (07:41→17:15)
[2016-07-01] MEDS: ASPIRIN (EC) 81 MG TAB PO SCH (07:41)
[2016-07-01] MEDS: ISOSORBIDE MONONITRATE(SR)60 MG TAB PO SCH (07:41)
[2016-07-01] MEDS: PRASUGREL HYDROCHLORIDE 10 MG TABLET PO SCH (07:41)
[2016-07-01] MEDS: LISINOPRIL 10 MG TAB PO SCH (07:42)
[2016-07-01] MEDS: METOPROLOL (XL) 50 MG TAB PO SCH ×2 (07:42→21:09)
[2016-07-01] MEDS: LORAZEPAM 2 MG INJ IV SCH (07:45)
[2016-07-01] MEDS: DIPHENHYDRAMINE 50 MG INJ IV SCH (07:46)
[2016-07-01] MEDS ORDERED: ACID1TAB14 PO (11:52)
[2016-07-01] MEDS ORDERED: CLON-379 PO (11:52)
[2016-07-01] MEDS ORDERED: Vancomycin Oral Syringe PO (11:52)
--- NOTE | 2016-07-01 11:56 | PN ---
Date/Time of Note Date/Time of Note DATE: 07/01/16 TIME: 11:54 Assessment/Plan VTE Prophylaxis VTE Prophylaxis Intervention: SCD's Lines/Catheters IV [facility] Type (from [facility] Perma Cath Urinary Cath still in place: No Assessment/Plan Chief Complaint/Hosp Course ASSESSMENT AND PLAN: 1. Clostridium difficile colitis. Continue patient on p.o. vancomycin. Repeat stool for C. difficile is negative. 2. End-stage renal disease. Patient is followed by Dr. Hubbard in nephrology consultation. The patient is continued on dialysis. 3. Hyperkalemia. Continue to monitor potassium level. 4. Diabetes mellitus. The patient has an insulin pump. Continue to monitor blood sugar. 5. Dyslipidemia by history. Continue statin. 6. Coronary artery disease status post in-stent thrombosis, left anterior descending, status post percutaneous coronary intervention. Continue patient on aspirin and metoprolol. 7. Hypertension. Continue patient on clonidine. Continue lisinopril and Toprol XL. Anticipate discharge home tomorrow in AM, discussed with patient, he stated that his neighbor will be available to pick him up tomorrow. Continue Protonix for peptic ulcer disease prophylaxis. Further recommendations based on clinical course Further recommendations based on clinical course. Plan of care discussed with Dr. Rosales. Problems: Subjective 24 Hr Interval Summary Free Text/Dictation Patient denies diarrhea, undergoing HD, no complains. Exam/Review of Systems Vital Signs Vitals Vital Signs Date Time Temp Pulse Resp B/P Pulse Ox O2 Delivery O2 Flow Rate FiO2 07/01/16 10:47 77 16 07/01/16 07:39 98.0 140/86 93 Intake and Output 06/30/16 06/30/16 07/01/16 15:00 23:00 07:00 Intake Total 400 ml 1100 ml 900 ml Output Total 2500 ml Balance -2100 ml 1100 ml 900 ml Exam GENERAL: Well-developed, well-nourished gentleman in no acute distress. HEENT: Head is atraumatic, normocephalic. Patient has a right hyperesthesia left eye. Left pupil is equal, round, reactive to light and accommodation. NECK: Supple, no mass or thyromegaly. LUNGS: Clear bilaterally. HEART: Normal S1, S2. No murmurs, gallops, clicks, rubs noted. ABDOMEN: Round, soft, nondistended, nontender. Bowel sounds present. EXTREMITIES: No edema, clubbing, cyanosis. Pulses equal bilaterally 2+. The patient has bilateral upper extremity arteriovenous fistula. SKIN: There is no rash, petechiae noted. Patient has multiple tattoos with upper and lower extremities and trunk. NEUROLOGIC: Alert and oriented 3. Right chest PermCath. Results Result Diagram: 07/01/16 0520 07/01/16 0520 Results 24 hrs Laboratory Tests Test 06/30/16 12:16 06/30/16 14:01 06/30/16 17:18 06/30/16 19:42 Bedside Glucose 165 232 H 93 80 Test 06/30/16 22:10 07/01/16 05:20 07/01/16 07:39 07/01/16 10:17 Bedside Glucose 174 238 H 187 Anion Gap 22 H Basophils # 0.0 Basophils % 0.4 Blood Morphology Comment Blood Urea Nitrogen 44 H Calcium Level 8.3 L Carbon Dioxide Level 23 Chloride Level 95 L Creatinine 7.43 H Eosinophils # 0.5 Eosinophils % 6.5 Glucose Level 254 #H Hematocrit 35.9 L Hemoglobin 11.8 L Lymphocytes # 1.4 Lymphocytes % 18.7 Mean Corpuscular Hemoglobin 30.0 Mean Corpuscular Hemoglobin Concent 32.8 Mean Corpuscular Volume 91.5 Mean Platelet Volume 10.0 Monocytes # 0.6 Monocytes % 7.6 Neutrophils # 4.9 Neutrophils % 66.8 Nucleated Red Blood Cells # 0.0 Nucleated Red Blood Cells % 0.0 Phosphorus Level 4.1 Platelet Count 193 Potassium Level 4.9 Red Blood Count 3.92 L Red Cell Distribution Width 16.6 H Sodium Level 135 White Blood Count 7.3 # Medications Medications Current Medications Prasugrel (Effient) 10 mg DAILY PO Last administered on 07/01/16 07:41; Admin Dose 10 MG; Start 06/17/16 at 10:30 Metoprolol Succinate (Toprol Xl) 50 mg BID PO Last administered on 06/30/16 21 :02; Admin Dose 50 MG; Start 06/17/16 at 09:00 Atorvastatin Calcium (Lipitor) 80 mg HS PO Last administered on 06/30/16 21:01 ; Admin Dose 80 MG; Start 06/17/16 at 21:00 Lorazepam (Ativan) 2 mg HS PRN PO INSOMNIA Last administered on 06/25/16 21:40 ; Admin Dose 2 MG; Start 06/17/16 at 08:30 Aspirin (Halfprin) 81 mg DAILY PO Last administered on 07/01/16 07:41; Admin Dose 81 MG; Start 06/17/16 at 09:00 Lisinopril (Zestril) 10 mg DAILY PO Last administered on 06/29/16 08:13; Admin Dose 10 MG; Start 06/17/16 at 09:00 Pramipexole (Mirapex) 0.25 mg HS PO Last administered on 06/30/16 21:01; Admin Dose 0.25 MG; Start 06/17/16 at 21:00 Pantoprazole (Protonix Tab) 40 mg DAILY@06 PO Last administered on 07/01/16 06 :02; Admin Dose 40 MG; Start 06/18/16 at 06:00 Ondansetron HCl (Zofran Inj) 4 mg Q6H PRN IV NAUSEA AND/OR VOMITING Last administered on 06/28/16 00:30; Admin Dose 4 MG; Start 06/17/16 at 08:30 Vancomycin HCl (Vancomycin Oral Syringe) 125 mg Q6 PO Last administered on 07/01 06:01; Admin Dose 125 MG; Start 06/17/16 at 12:00 Isosorbide Mononitrate (Imdur) 60 mg DAILY PO Last administered on 06/29/16 08 :13; Admin Dose 60 MG; Start 06/17/16 at 09:00 Diphenhydramine HCl (Benadryl) 50 mg Q6H PRN IV ITCHING Last administered on 09:08; Admin Dose 50 MG; Start 06/17/16 at 09:30 Hydromorphone HCl (Dilaudid) 1 mg Q3H PRN IV PAIN Last administered on 09:09; Admin Dose 1 MG; Start 06/17/16 at 12:30 Miscellaneous Information 1 ea NOTE XX ; Start 06/18/16 at 13:00 Glucose (Glutose) 15 gm Q15M PRN PO DECREASED GLUCOSE; Start 06/18/16 at 13:00 Glucose (Glutose) 22.5 gm Q15M PRN PO DECREASED GLUCOSE; Start 06/18/16 at 13:00 Dextrose (D50w Syringe) 25 ml Q15M PRN IV DECREASED GLUCOSE Last administered on 06/20/16 08:14; Admin Dose 25 ML; Start 06/18/16 at 13:00 Dextrose (D50w Syringe) 50 ml Q15M PRN IV DECREASED GLUCOSE; Start 06/18/16 at 13:00 Glucagon (Glucagen) 1 mg Q15M PRN IM DECREASED GLUCOSE; Start 06/18/16 at 13:00 Glucose (Glutose) 15 gm Q15M PRN BUCCAL DECREASED GLUCOSE; Start 06/18/16 at 13: 00 Baclofen (Lioresal) 5 mg BID PRN PO hiccups Last administered on 06/25/16 21: 50; Admin Dose 5 MG; Start 06/18/16 at 13:30 Lactobacillus Acidoph/Bulgaricus (Floranex) 1 tab TID PO Last administered on 07:41; Admin Dose 1 TAB; Start 06/24/16 at 21:00 Clonidine (Catapres) 0.1 mg Q6 PO Last administered on 06/30/16 17:21; Admin Dose 0.1 MG; Start 06/30/16 at 12:00 ANGELINA CASTREJON Jul 01, 2016 11:56
--- NOTE | 2016-07-01 12:54 | PN ---
DATE: 07/01/2016 INFECTIOUS DISEASE PROGRESS NOTE SUBJECTIVE: No acute events. The patient is alert, feels good, no diarrhea. He is currently on he modialysis. No fevers. PHYSICAL EXAMINATION: GENERAL: Well-developed, middle-aged man who is alert, in no distress. HEENT: Head atraumatic, normocephalic. Sclerae anicteric. Buccal mucosa pink. NECK: Supple, trachea midline. CHEST: Rise symmetrical. Breath sounds clear. HEART: S1, S2. ABDOMEN: Soft, bowel sounds present. EXTREMITIES: Without cyanosis. ASSESSMENT: 1. Clostridium difficile colitis, resolving. 2. End-stage renal disease, hemodialysis-dependent. 3. Diabetes. 4. Hypertension. PLAN: The patient remains stable. We are going to discontinue IV Flagyl. Keep him on oral vancomy erin for 10 more days pending discharge planning. Dictated By: BIJAN LONGO PATENT SEARCHER for [facility] Conf#: [id number] DID#: [id number]
--- NOTE | 2016-07-01 13:03 | CONS ---
Date/Time of Note Date/Time of Note DATE: 07/01/16 TIME: 12:59 Assessment/Plan Assessment/Plan Chief Complaint/Hosp Course Patient well known to me. Type 1 diabetic with multiple chronic complications including retinal, renal and neuologic complications. Admitted for colitis. 1 specimen positive for C. Difficile. Patient states blood sugars have been more difficult to control since being admitted with colitis. Problems: (1) Diabetes mellitus type 1, controlled, with complications Status: Chronic Comment: Better glycemic control. Continue insulin pump settings with increased frequency in glucose checks and correction bolus. Additional Assessment/Plan Plan for discharge tomorrow per PMD. Consultation Date/Type/Reason Admit Date/Time Jun 19, 2016 at 13:42 Initial Consult Date 06/28/16 Type of Consultation: endocrine Referring Provider: WILMER RODRIGUEZ MD 24 HR Interval Summary Free Text/Dictation No more diarrhea. Blood sugars more manageable with increased accu-check frequency although still with some high readings. Exam/Review of Systems Vital Signs Vitals Vital Signs Date Time Temp Pulse Resp B/P Pulse Ox O2 Delivery O2 Flow Rate FiO2 07/01/16 10:47 77 16 07/01/16 07:39 98.0 140/86 93 Intake and Output 06/30/16 06/30/16 07/01/16 15:00 23:00 07:00 Intake Total 400 ml 1100 ml 900 ml Output Total 2500 ml Balance -2100 ml 1100 ml 900 ml Exam Constitutional: alert, oriented, well developed Neck: supple Respiratory: clear to auscultation Cardiovascular: regular rate and rhythm Gastrointestinal: soft Musculoskeletal: nl extremities to inspection Skin: other (tattoos) Results POC glucose reviewed Result Diagram: 07/01/16 0520 07/01/16 0520 Results 24 hrs Laboratory Tests Test 06/30/16 14:01 06/30/16 17:18 06/30/16 19:42 06/30/16 22:10 Bedside Glucose 232 H 93 80 174 Test 07/01/16 05:20 07/01/16 07:39 07/01/16 10:17 07/01/16 12:04 Anion Gap 22 H Basophils # 0.0 Basophils % 0.4 Blood Morphology Comment Blood Urea Nitrogen 44 H Calcium Level 8.3 L Carbon Dioxide Level 23 Chloride Level 95 L Creatinine 7.43 H Eosinophils # 0.5 Eosinophils % 6.5 Glucose Level 254 #H Hematocrit 35.9 L Hemoglobin 11.8 L Lymphocytes # 1.4 Lymphocytes % 18.7 Mean Corpuscular Hemoglobin 30.0 Mean Corpuscular Hemoglobin Concent 32.8 Mean Corpuscular Volume 91.5 Mean Platelet Volume 10.0 Monocytes # 0.6 Monocytes % 7.6 Neutrophils # 4.9 Neutrophils % 66.8 Nucleated Red Blood Cells # 0.0 Nucleated Red Blood Cells % 0.0 Phosphorus Level 4.1 Platelet Count 193 Potassium Level 4.9 Red Blood Count 3.92 L Red Cell Distribution Width 16.6 H Sodium Level 135 White Blood Count 7.3 # Bedside Glucose 238 H 187 148 Medications Medications Current Medications Prasugrel (Effient) 10 mg DAILY PO Last administered on 07/01/16 07:41; Admin Dose 10 MG; Start 06/17/16 at 10:30 Metoprolol Succinate (Toprol Xl) 50 mg BID PO Last administered on 06/30/16 21 :02; Admin Dose 50 MG; Start 06/17/16 at 09:00 Atorvastatin Calcium (Lipitor) 80 mg HS PO Last administered on 06/30/16 21:01 ; Admin Dose 80 MG; Start 06/17/16 at 21:00 Lorazepam (Ativan) 2 mg HS PRN PO INSOMNIA Last administered on 06/25/16 21:40 ; Admin Dose 2 MG; Start 06/17/16 at 08:30 Aspirin (Halfprin) 81 mg DAILY PO Last administered on 07/01/16 07:41; Admin Dose 81 MG; Start 06/17/16 at 09:00 Lisinopril (Zestril) 10 mg DAILY PO Last administered on 06/29/16 08:13; Admin Dose 10 MG; Start 06/17/16 at 09:00 Pramipexole (Mirapex) 0.25 mg HS PO Last administered on 06/30/16 21:01; Admin Dose 0.25 MG; Start 06/17/16 at 21:00 Pantoprazole (Protonix Tab) 40 mg DAILY@06 PO Last administered on 07/01/16 06 :02; Admin Dose 40 MG; Start 06/18/16 at 06:00 Ondansetron HCl (Zofran Inj) 4 mg Q6H PRN IV NAUSEA AND/OR VOMITING Last administered on 06/28/16 00:30; Admin Dose 4 MG; Start 06/17/16 at 08:30 Vancomycin HCl (Vancomycin Oral Syringe) 125 mg Q6 PO Last administered on 07/01 12:05; Admin Dose 125 MG; Start 06/17/16 at 12:00 Isosorbide Mononitrate (Imdur) 60 mg DAILY PO Last administered on 06/29/16 08 :13; Admin Dose 60 MG; Start 06/17/16 at 09:00 Diphenhydramine HCl (Benadryl) 50 mg Q6H PRN IV ITCHING Last administered on 09:08; Admin Dose 50 MG; Start 06/17/16 at 09:30 Hydromorphone HCl (Dilaudid) 1 mg Q3H PRN IV PAIN Last administered on 12:06; Admin Dose 1 MG; Start 06/17/16 at 12:30 Miscellaneous Information 1 ea NOTE XX ; Start 06/18/16 at 13:00 Glucose (Glutose) 15 gm Q15M PRN PO DECREASED GLUCOSE; Start 06/18/16 at 13:00 Glucose (Glutose) 22.5 gm Q15M PRN PO DECREASED GLUCOSE; Start 06/18/16 at 13:00 Dextrose (D50w Syringe) 25 ml Q15M PRN IV DECREASED GLUCOSE Last administered on 06/20/16 08:14; Admin Dose 25 ML; Start 06/18/16 at 13:00 Dextrose (D50w Syringe) 50 ml Q15M PRN IV DECREASED GLUCOSE; Start 06/18/16 at 13:00 Glucagon (Glucagen) 1 mg Q15M PRN IM DECREASED GLUCOSE; Start 06/18/16 at 13:00 Glucose (Glutose) 15 gm Q15M PRN BUCCAL DECREASED GLUCOSE; Start 06/18/16 at 13: 00 Baclofen (Lioresal) 5 mg BID PRN PO hiccups Last administered on 06/25/16 21: 50; Admin Dose 5 MG; Start 06/18/16 at 13:30 Lactobacillus Acidoph/Bulgaricus (Floranex) 1 tab TID PO Last administered on 12:05; Admin Dose 1 TAB; Start 06/24/16 at 21:00 Clonidine (Catapres) 0.1 mg Q6 PO Last administered on 06/30/16t 17:21; Admin Dose 0.1 MG; Start 06/30/16 at 12:00 KALPANA MARTINEZ MD Jul 01, 2016 13:03
[2016-07-01] MEDS: DEXTROSE 50% 50 ML SYRINGE IV PRN (17:13)
[2016-07-01] MEDS: ATORVASTATIN 80 MG TAB PO SCH (21:08)
[2016-07-01] MEDS: PRAMIPEXOLE 0.25 MG TAB PO SCH (21:09)
--- NOTE | 2016-07-01 21:09 | CONS ---
Date/Time of Note Date/Time of Note DATE: 07/01/16 TIME: 21:07 Assessment/Plan Assessment/Plan Chief Complaint/Hosp Course 1. ESRD , his potassium this morning was 4.9 . He was dialyzed today . 2. diarrhea , his stool is C Difficle positive , he is getting Vancomycin orally , he is improved. 3. DM . . 4. Hypertension 5. Anemia of chronic kidney disease 6. Chronic pain syndrome Problems: Consultation Date/Type/Reason Admit Date/Time Jun 19, 2016 at 13:42 Type of Consultation: renal Referring Provider: WILMER RODRIGUEZ MD 24 HR Interval Summary Constitutional: improved, no complaints Exam/Review of Systems Vital Signs Vitals Vital Signs Date Time Temp Pulse Resp B/P Pulse Ox O2 Delivery O2 Flow Rate FiO2 07/01/16 20:50 98.1 84 24 174/84 84 Intake and Output 06/30/16 06/30/16 07/01/16 15:00 23:00 07:00 Intake Total 400 ml 1100 ml 900 ml Output Total 2500 ml Balance -2100 ml 1100 ml 900 ml Exam Constitutional: alert, oriented, well developed Psych: nl mood/affect, no complaints Respiratory: clear to auscultation, normal air movement Cardiovascular: nl pulses, regular rate and rhythm Musculoskeletal: nl extremities to inspection Results Result Diagram: 07/01/16 0520 07/01/16 0520 Results 24 hrs Laboratory Tests Test 06/30/16 22:10 07/01/16 05:20 07/01/16 07:39 07/01/16 10:17 Bedside Glucose 174 238 H 187 Anion Gap 22 H Basophils # 0.0 Basophils % 0.4 Blood Morphology Comment Blood Urea Nitrogen 44 H Calcium Level 8.3 L Carbon Dioxide Level 23 Chloride Level 95 L Creatinine 7.43 H Eosinophils # 0.5 Eosinophils % 6.5 Glucose Level 254 #H Hematocrit 35.9 L Hemoglobin 11.8 L Lymphocytes # 1.4 Lymphocytes % 18.7 Mean Corpuscular Hemoglobin 30.0 Mean Corpuscular Hemoglobin Concent 32.8 Mean Corpuscular Volume 91.5 Mean Platelet Volume 10.0 Monocytes # 0.6 Monocytes % 7.6 Neutrophils # 4.9 Neutrophils % 66.8 Nucleated Red Blood Cells # 0.0 Nucleated Red Blood Cells % 0.0 Phosphorus Level 4.1 Platelet Count 193 Potassium Level 4.9 Red Blood Count 3.92 L Red Cell Distribution Width 16.6 H Sodium Level 135 White Blood Count 7.3 # Test 07/01/16 12:04 07/01/16 14:16 07/01/16 17:06 07/01/16 17:30 Bedside Glucose 148 132 40 *L 100 Test 07/01/16 18:05 Bedside Glucose 125 Medications Medications Current Medications Prasugrel (Effient) 10 mg DAILY PO Last administered on 07/01/16 07:41; Admin Dose 10 MG; Start 06/17/16 at 10:30 Metoprolol Succinate (Toprol Xl) 50 mg BID PO Last administered on 06/30/16 21 :02; Admin Dose 50 MG; Start 06/17/16 at 09:00 Atorvastatin Calcium (Lipitor) 80 mg HS PO Last administered on 06/30/16 21:01 ; Admin Dose 80 MG; Start 06/17/16 at 21:00 Lorazepam (Ativan) 2 mg HS PRN PO INSOMNIA Last administered on 06/25/16 21:40 ; Admin Dose 2 MG; Start 06/17/16 at 08:30 Aspirin (Halfprin) 81 mg DAILY PO Last administered on 07/01/16 07:41; Admin Dose 81 MG; Start 06/17/16 at 09:00 Lisinopril (Zestril) 10 mg DAILY PO Last administered on 06/29/16 08:13; Admin Dose 10 MG; Start 06/17/16 at 09:00 Pramipexole (Mirapex) 0.25 mg HS PO Last administered on 06/30/16 21:01; Admin Dose 0.25 MG; Start 06/17/16 at 21:00 Pantoprazole (Protonix Tab) 40 mg DAILY@06 PO Last administered on 07/01/16 06 :02; Admin Dose 40 MG; Start 06/18/16 at 06:00 Ondansetron HCl (Zofran Inj) 4 mg Q6H PRN IV NAUSEA AND/OR VOMITING Last administered on 06/28/16 00:30; Admin Dose 4 MG; Start 06/17/16 at 08:30 Vancomycin HCl (Vancomycin Oral Syringe) 125 mg Q6 PO Last administered on 07/01 17:16; Admin Dose 125 MG; Start 06/17/16 at 12:00 Isosorbide Mononitrate (Imdur) 60 mg DAILY PO Last administered on 06/29/16 08 :13; Admin Dose 60 MG; Start 06/17/16 at 09:00 Diphenhydramine HCl (Benadryl) 50 mg Q6H PRN IV ITCHING Last administered on 21:02; Admin Dose 50 MG; Start 06/17/16 at 09:30 Hydromorphone HCl (Dilaudid) 1 mg Q3H PRN IV PAIN Last administered on 21:01; Admin Dose 1 MG; Start 06/17/16 at 12:30 Miscellaneous Information 1 ea NOTE XX ; Start 06/18/16 at 13:00 Glucose (Glutose) 15 gm Q15M PRN PO DECREASED GLUCOSE; Start 06/18/16 at 13:00 Glucose (Glutose) 22.5 gm Q15M PRN PO DECREASED GLUCOSE; Start 06/18/16 at 13:00 Dextrose (D50w Syringe) 25 ml Q15M PRN IV DECREASED GLUCOSE Last administered on 07/01/16 17:13; Admin Dose 25 ML; Start 06/18/16 at 13:00 Dextrose (D50w Syringe) 50 ml Q15M PRN IV DECREASED GLUCOSE; Start 06/18/16 at 13:00 Glucagon (Glucagen) 1 mg Q15M PRN IM DECREASED GLUCOSE; Start 06/18/16 at 13:00 Glucose (Glutose) 15 gm Q15M PRN BUCCAL DECREASED GLUCOSE; Start 06/18/16 at 13: 00 Baclofen (Lioresal) 5 mg BID PRN PO hiccups Last administered on 06/25/16 21: 50; Admin Dose 5 MG; Start 06/18/16 at 13:30 Lactobacillus Acidoph/Bulgaricus (Floranex) 1 tab TID PO Last administered on 12:05; Admin Dose 1 TAB; Start 06/24/16 at 21:00 Clonidine (Catapres) 0.1 mg Q6 PO Last administered on 07/01/16 17:15; Admin Dose 0.1 MG; Start 06/30/16 at 12:00 DONY HOWARD MD Jul 01, 2016 21:09
[2016-07-02] MEDS: VANCOMYCIN HCL 250 MG/5ML POSYG PO SCH ×3 (00:13→11:44)
[2016-07-02] MEDS: HYDROmorphONE 1 MG/ML SYG IV PRN ×5 (02:59→11:46)
[2016-07-02] MEDS: DIPHENHYDRAMINE 50 MG INJ IV PRN ×2 (02:59→09:06)
[2016-07-02] MEDS: PANTOPRAZOLE (EC) 40 MG TAB PO SCH (06:04)
--- NOTE | 2016-07-02 07:44 | CONS ---
Date/Time of Note Date/Time of Note DATE: 07/02/16 TIME: 07:42 Assessment/Plan Assessment/Plan Chief Complaint/Hosp Course 1. ESRD . He was dialyzed yesterday . He can be discharged today . We will follow him as an outpatient . 2. diarrhea , his stool is C Difficle positive , he is getting Vancomycin orally , he is improved. 3. DM . . 4. Hypertension 5. Anemia of chronic kidney disease 6. Chronic pain syndrome Problems: Consultation Date/Type/Reason Admit Date/Time Jun 19, 2016 at 13:42 Type of Consultation: renal Referring Provider: WILMER RODRIGUEZ MD 24 HR Interval Summary Constitutional: improved, no complaints Exam/Review of Systems Vital Signs Vitals Vital Signs Date Time Temp Pulse Resp B/P Pulse Ox O2 Delivery O2 Flow Rate FiO2 07/01/16 20:50 98.1 84 24 174/84 84 Intake and Output 07/01/16 07/01/16 07/02/16 15:00 23:00 07:00 Intake Total 600 ml 600 ml 480 ml Output Total 1500 ml Balance -900 ml 600 ml 480 ml Exam Constitutional: alert, oriented, well developed Psych: nl mood/affect, no complaints Respiratory: clear to auscultation, normal air movement Cardiovascular: regular rate and rhythm Gastrointestinal: soft Musculoskeletal: nl extremities to inspection Results Result Diagram: 07/01/16 0520 07/01/16 0520 Results 24 hrs Laboratory Tests Test 07/01/16 10:17 07/01/16 12:04 07/01/16 14:16 07/01/16 17:06 Bedside Glucose 187 148 132 40 *L Test 07/01/16 17:30 07/01/16 18:05 07/01/16 21:46 07/02/16 00:17 Bedside Glucose 100 125 354 H 333 H Test 07/02/16 03:09 Bedside Glucose 167 Medications Medications Current Medications Prasugrel (Effient) 10 mg DAILY PO Last administered on 07/01/16 07:41; Admin Dose 10 MG; Start 06/17/16 at 10:30 Metoprolol Succinate (Toprol Xl) 50 mg BID PO Last administered on 07/01/16 21 :09; Admin Dose 50 MG; Start 06/17/16 at 09:00 Atorvastatin Calcium (Lipitor) 80 mg HS PO Last administered on 07/01/16 21:08 ; Admin Dose 80 MG; Start 06/17/16 at 21:00 Lorazepam (Ativan) 2 mg HS PRN PO INSOMNIA Last administered on 06/25/16 21:40 ; Admin Dose 2 MG; Start 06/17/16 at 08:30 Aspirin (Halfprin) 81 mg DAILY PO Last administered on 07/01/16 07:41; Admin Dose 81 MG; Start 06/17/16 at 09:00 Lisinopril (Zestril) 10 mg DAILY PO Last administered on 06/29/16 08:13; Admin Dose 10 MG; Start 06/17/16 at 09:00 Pramipexole (Mirapex) 0.25 mg HS PO Last administered on 07/01/16 21:09; Admin Dose 0.25 MG; Start 06/17/16 at 21:00 Pantoprazole (Protonix Tab) 40 mg DAILY@06 PO Last administered on 07/02/16 06 :04; Admin Dose 40 MG; Start 06/18/16 at 06:00 Ondansetron HCl (Zofran Inj) 4 mg Q6H PRN IV NAUSEA AND/OR VOMITING Last administered on 06/28/16 00:30; Admin Dose 4 MG; Start 06/17/16 at 08:30 Vancomycin HCl (Vancomycin Oral Syringe) 125 mg Q6 PO Last administered on 07/02 05:56; Admin Dose 125 MG; Start 06/17/16 at 12:00 Isosorbide Mononitrate (Imdur) 60 mg DAILY PO Last administered on 06/29/16 08 :13; Admin Dose 60 MG; Start 06/17/16 at 09:00 Diphenhydramine HCl (Benadryl) 50 mg Q6H PRN IV ITCHING Last administered on 02:59; Admin Dose 50 MG; Start 06/17/16 at 09:30 Hydromorphone HCl (Dilaudid) 1 mg Q3H PRN IV PAIN Last administered on 05:56; Admin Dose 1 MG; Start 06/17/16 at 12:30 Miscellaneous Information 1 ea NOTE XX ; Start 06/18/16 at 13:00 Glucose (Glutose) 15 gm Q15M PRN PO DECREASED GLUCOSE; Start 06/18/16 at 13:00 Glucose (Glutose) 22.5 gm Q15M PRN PO DECREASED GLUCOSE; Start 06/18/16 at 13:00 Dextrose (D50w Syringe) 25 ml Q15M PRN IV DECREASED GLUCOSE Last administered on 07/01/16 17:13; Admin Dose 25 ML; Start 06/18/16 at 13:00 Dextrose (D50w Syringe) 50 ml Q15M PRN IV DECREASED GLUCOSE; Start 06/18/16 at 13:00 Glucagon (Glucagen) 1 mg Q15M PRN IM DECREASED GLUCOSE; Start 06/18/16 at 13:00 Glucose (Glutose) 15 gm Q15M PRN BUCCAL DECREASED GLUCOSE; Start 06/18/16 at 13: 00 Baclofen (Lioresal) 5 mg BID PRN PO hiccups Last administered on 06/25/16 21: 50; Admin Dose 5 MG; Start 06/18/16 at 13:30 Lactobacillus Acidoph/Bulgaricus (Floranex) 1 tab TID PO Last administered on 21:08; Admin Dose 1 TAB; Start 06/24/16 at 21:00 Clonidine (Catapres) 0.1 mg Q6 PO Last administered on 07/01/16 17:15; Admin Dose 0.1 MG; Start 06/30/16 at 12:00 DONY HOWARD MD Jul 02, 2016 07:44
[2016-07-02 07:55] VITALS: BP 124/74; RESP 16
[2016-07-02] MEDS: ACCUCHECK XX SCH ×2 (08:50→10:05)
[2016-07-02] MEDS: ASPIRIN (EC) 81 MG TAB PO SCH (08:52)
[2016-07-02] MEDS: CALCIUM ACETATE 667 MG CAP PO SCH (08:52)
[2016-07-02] MEDS: LACTOBACILLUS CHEW TAB PO SCH (08:52)
[2016-07-02] MEDS: SEVELAMER 800 MG TAB PO SCH (08:52)
[2016-07-02] MEDS: PRASUGREL HYDROCHLORIDE 10 MG TABLET PO SCH (08:52)
[2016-07-02] MEDS: LISINOPRIL 10 MG TAB PO SCH (08:53)
[2016-07-02] MEDS: ISOSORBIDE MONONITRATE(SR)60 MG TAB PO SCH (08:53)
[2016-07-02] MEDS: METOPROLOL (XL) 50 MG TAB PO SCH (08:54)
--- NOTE | 2016-07-02 10:42 | PN ---
Date/Time of Note Date/Time of Note DATE: 07/02/16 TIME: 10:41 Assessment/Plan VTE Prophylaxis VTE Prophylaxis Intervention: SCD's Lines/Catheters [facility] PERMACATH Urinary Cath still in place: No Assessment/Plan Chief Complaint/Hosp Course ASSESSMENT AND PLAN: 1. Clostridium difficile colitis. Continue patient on p.o. vancomycin. Repeat stool for C. difficile is negative. 2. End-stage renal disease. Patient is followed by Dr. Hubbard in nephrology consultation. The patient is continued on dialysis. 3. Hyperkalemia. Continue to monitor potassium level. 4. Diabetes mellitus. The patient has an insulin pump. Continue to monitor blood sugar. 5. Dyslipidemia by history. Continue statin. 6. Coronary artery disease status post in-stent thrombosis, left anterior descending, status post percutaneous coronary intervention. Continue patient on aspirin and metoprolol. 7. Hypertension. Continue patient on clonidine. Continue lisinopril and Toprol XL. D/c home today. Continue Protonix for peptic ulcer disease prophylaxis. Further recommendations based on clinical course Further recommendations based on clinical course. Plan of care discussed with Dr. Rosales. Problems: Exam/Review of Systems Vital Signs Vitals Vital Signs Date Time Temp Pulse Resp B/P Pulse Ox O2 Delivery O2 Flow Rate FiO2 07/02/16 07:55 97.3 70 16 124/74 100 Intake and Output 07/01/16 07/01/16 07/02/16 15:00 23:00 07:00 Intake Total 600 ml 600 ml 480 ml Output Total 1500 ml Balance -900 ml 600 ml 480 ml Exam GENERAL: Well-developed, well-nourished gentleman in no acute distress. HEENT: Head is atraumatic, normocephalic. Patient has a right hyperesthesia left eye. Left pupil is equal, round, reactive to light and accommodation. NECK: Supple, no mass or thyromegaly. LUNGS: Clear bilaterally. HEART: Normal S1, S2. No murmurs, gallops, clicks, rubs noted. ABDOMEN: Round, soft, nondistended, nontender. Bowel sounds present. EXTREMITIES: No edema, clubbing, cyanosis. Pulses equal bilaterally 2+. The patient has bilateral upper extremity arteriovenous fistula. SKIN: There is no rash, petechiae noted. Patient has multiple tattoos with upper and lower extremities and trunk. NEUROLOGIC: Alert and oriented 3. Right chest PermCath. Results Result Diagram: 07/01/16 0520 07/01/16 0520 Results 24 hrs Laboratory Tests Test 07/01/16 12:04 07/01/16 14:16 07/01/16 17:06 07/01/16 17:30 Bedside Glucose 148 132 40 *L 100 Test 07/01/16 18:05 07/01/16 21:46 07/02/16 00:17 07/02/16 03:09 Bedside Glucose 125 354 H 333 H 167 Test 07/02/16 07:45 07/02/16 10:35 Bedside Glucose 91 164 Medications Medications Current Medications Prasugrel (Effient) 10 mg DAILY PO Last administered on 07/02/16 08:52; Admin Dose 10 MG; Start 06/17/16 at 10:30 Metoprolol Succinate (Toprol Xl) 50 mg BID PO Last administered on 07/02/16 08 :54; Admin Dose 50 MG; Start 06/17/16 at 09:00 Atorvastatin Calcium (Lipitor) 80 mg HS PO Last administered on 07/01/16 21:08 ; Admin Dose 80 MG; Start 06/17/16 at 21:00 Lorazepam (Ativan) 2 mg HS PRN PO INSOMNIA Last administered on 06/25/16 21:40 ; Admin Dose 2 MG; Start 06/17/16 at 08:30 Aspirin (Halfprin) 81 mg DAILY PO Last administered on 07/02/16 08:52; Admin Dose 81 MG; Start 06/17/16 at 09:00 Lisinopril (Zestril) 10 mg DAILY PO Last administered on 07/02/16 08:53; Admin Dose 10 MG; Start 06/17/16 at 09:00 Pramipexole (Mirapex) 0.25 mg HS PO Last administered on 07/01/16 21:09; Admin Dose 0.25 MG; Start 06/17/16 at 21:00 Pantoprazole (Protonix Tab) 40 mg DAILY@06 PO Last administered on 07/02/16 06 :04; Admin Dose 40 MG; Start 06/18/16 at 06:00 Ondansetron HCl (Zofran Inj) 4 mg Q6H PRN IV NAUSEA AND/OR VOMITING Last administered on 06/28/16 00:30; Admin Dose 4 MG; Start 06/17/16 at 08:30 Vancomycin HCl (Vancomycin Oral Syringe) 125 mg Q6 PO Last administered on 07/02 05:56; Admin Dose 125 MG; Start 06/17/16 at 12:00 Isosorbide Mononitrate (Imdur) 60 mg DAILY PO Last administered on 07/02/16 08 :53; Admin Dose 60 MG; Start 06/17/16 at 09:00 Diphenhydramine HCl (Benadryl) 50 mg Q6H PRN IV ITCHING Last administered on 09:06; Admin Dose 50 MG; Start 06/17/16 at 09:30 Hydromorphone HCl (Dilaudid) 1 mg Q3H PRN IV PAIN Last administered on 08:56; Admin Dose 1 MG; Start 06/17/16 at 12:30 Miscellaneous Information 1 ea NOTE XX ; Start 06/18/16 at 13:00 Glucose (Glutose) 15 gm Q15M PRN PO DECREASED GLUCOSE; Start 06/18/16 at 13:00 Glucose (Glutose) 22.5 gm Q15M PRN PO DECREASED GLUCOSE; Start 06/18/16 at 13:00 Dextrose (D50w Syringe) 25 ml Q15M PRN IV DECREASED GLUCOSE Last administered on 07/01/16 17:13; Admin Dose 25 ML; Start 06/18/16 at 13:00 Dextrose (D50w Syringe) 50 ml Q15M PRN IV DECREASED GLUCOSE; Start 06/18/16 at 13:00 Glucagon (Glucagen) 1 mg Q15M PRN IM DECREASED GLUCOSE; Start 06/18/16 at 13:00 Glucose (Glutose) 15 gm Q15M PRN BUCCAL DECREASED GLUCOSE; Start 06/18/16 at 13: 00 Baclofen (Lioresal) 5 mg BID PRN PO hiccups Last administered on 06/25/16 21: 50; Admin Dose 5 MG; Start 06/18/16 at 13:30 Lactobacillus Acidoph/Bulgaricus (Floranex) 1 tab TID PO Last administered on 08:52; Admin Dose 1 TAB; Start 06/24/16 at 21:00 Clonidine (Catapres) 0.1 mg Q6 PO Last administered on 07/01/16t 17:15; Admin Dose 0.1 MG; Start 06/30/16 at 12:00 ANGELINA CASTREJON Jul 02, 2016 10:42
[2016-07-02] MEDS ORDERED: HEPARIN (100 UNITS/ML) 5 ML SYG CATHETER ONE (11:30)
== END 2016-07-02 12:35 | disposition home or self-care (01) | DRG 371 ==
LOC: E/R 01:42 → MS2 03:47 → INTOOBSV 03:47 → MS2 07:26 → OBSVTOIN 06-19 13:42
PROVIDERS: ADMIT Internal Medicine; ATTEND Internal Medicine
PROC: 5A1D60Z (ICD-10-PCS; principal; 2016-06-17)
DX: A04.7 Enterocolitis due to Clostridium difficile (principal); N18.6 End stage renal disease; E10.22 Type 1 diabetes mellitus with diabetic chronic kidney disease; I12.0 Hypertensive chronic kidney disease with stage 5 chronic kidney disease or end stage renal disease; R06.6 Hiccough; E87.5 Hyperkalemia; I25.10 Atherosclerotic heart disease of native coronary artery without angina pectoris; Z99.2 Dependence on renal dialysis; E10.319 Type 1 diabetes mellitus with unspecified diabetic retinopathy without macular edema; Z96.41 Presence of insulin pump (external) (internal); H54.8 Legal blindness, as defined in USA; D63.1 Anemia in chronic kidney disease; G89.29 Other chronic pain; M79.672 Pain in left foot; M79.671 Pain in right foot; Z79.82 Long term (current) use of aspirin
CPT/HCPCS: 36415; 71010; 80048; 80053; 81001; 81003; 82607; 82962; 83605; 84100; 84484; 85025; 85610; 85730; 87040; 87075; 87086; 90935; 93005; 93931; 96365; 96375; 99217; G0257; G0378; J1170; J1200; J1642; J1644; J2060; J2405; J3370

== ENCOUNTER 2016-07-03 09:05 | Inpatient (IN) | payer MEDICARE, OTHER ==
[2016-07-03] VITALS (12 sets, daily range): BP systolic 121–182; BP diastolic 70–95; PULSE 72–81; RESP 20–21; Ht 175.3 cm; Wt 68.0 kg
[~2016-07-03] VITALS: Ht 175.3 cm; Wt 68.0 kg
[~2016-07-03 09:05] MED LIST changes: +ACID1TAB14 PO; +CLON-379 PO; -NIFE60TA7 PO; -PANT40TA3 PO; +Vancomycin Oral Syringe PO
[2016-07-03] MEDS ORDERED: SOD CHLORIDE 0.9% 500 ML IV STA (09:55)
[2016-07-03] MEDS ORDERED: LABETALOL HCL 20MG INJ IV ONE (10:00)
[2016-07-03 10:50] LABS: BASOPHIL # 0.1 10^3/ul (0.0-0.1); BASOPHILS % 1.1 % (0.0-2.0); EOSINOPHILS # 0.2 10^3/ul (0.0-0.5); EOSINOPHILS % 3.6 % (0.0-7.0); HEMATOCRIT 32.5 % (42.0-52.0); HEMOGLOBIN 10.7 g/dl (14.0-18.0); LYMPHOCYTES # 0.8 10^3/ul (0.8-2.9); LYMPHOCYTES % 12.3 % (15.0-51.0); MEAN CORPUSCULAR HEMOGLOBIN 29.6 pg (29.0-33.0); MEAN CORPUSCULAR HGB CONC 32.8 g/dl (32.0-37.0); MEAN PLATELET VOLUME 10.1 fl (7.4-10.4); MONOCYTE # 0.5 10^3/ul (0.3-0.9); MONOCYTES % 7.7 % (0.0-11.0); NEUTROPHILS % 75.3 % (39.0-77.0); PLATELET COUNT 165 10^3/UL (140-440); RED BLOOD COUNT 3.61 10^6/ul (4.70-6.10); RED CELL DISTRIBUTION WIDTH 16.7 % (11.5-14.5); UNCORRECTED WBC 6.7 10^3/ul (4.8-10.8); WHITE BLOOD COUNT 6.7 10^3/ul (4.8-10.8)
[2016-07-03] MEDS ORDERED: HYDROmorphONE 1 MG/ML SYG IV STA (10:51)
[2016-07-03 10:55] LABS: CONDITION 1; LH ANALYZER COMMENTS 1
[2016-07-03 10:58] LABS: ALBUMIN 3.7 g/dl (3.3-4.9); CHLORIDE 96 mmol/L (97-110); SODIUM 132 mmol/L (135-144)
[2016-07-03 11:00] LABS: INR 1.13; PROTIME 14.5 Sec (12.2-14.2); PT RATIO 1.1
[2016-07-03 11:01] LABS: ALANINE AMINOTRANSFERASE 108 IU/L (13-69); ALBUMIN/GLOBULIN RATIO 1.23; ALKALINE PHOSPHATASE 311 IU/L (42-121); ANION GAP 24 (8-16); ASPARTATE AMINO TRANSFERASE 133 IU/L (15-46); BILIRUBIN,INDIRECT 0.1 mg/dl (0-1.1); BILIRUBIN,TOTAL 0.1 mg/dl (0.2-1.3); BLOOD UREA NITROGEN 63 mg/dl (7-20); CALCIUM 8.2 mg/dl (8.4-10.2); CARBON DIOXIDE 18 mmol/L (21-31); CREATININE 8.18 mg/dl (0.61-1.24); TOTAL PROTEIN 6.7 g/dl (6.1-8.1)
[2016-07-03 11:02] LABS: PARTIAL THROMBOPLASTIN TIME 60.7 Sec (25.0-35.0)
[2016-07-03 11:18] LABS: POTASSIUM 6.3 mmol/L (3.5-5.1); TROPONIN-I < 0.012 ng/ml (0.00-0.12)
--- NOTE | 2016-07-03 11:19 | RADRPT ---
PROCEDURE: XR Chest AP portable CLINICAL INDICATION: Abdominal pain TECHNIQUE: An AP portable radiograph of the chest was submitted. COMPARISON: 06/17/2016 FINDINGS: Support Hardware: A right subclavian dialysis catheter and a left subclavian Port-A-Cath are again e vident with the tip in the slowing within the superior vena cava. Cardiovascular: The cardiovascular silhouette appears unremarkable. Lung Ding: The lung ding appear clear with no nodule, alveolar infiltrate, for a interstitial pr ominence evident. Pleural Spaces: No pneumothorax or pleural effusion is identified. Osseous Structures: The osseous structures appear intact. Soft Tissues: The soft tissues appear unremarkable. IMPRESSION: 1. Stable appearance to the right-sided dialysis catheter and the left-sided Port-A-Cath. 2. Otherwise, stable unremarkable portable chest. Physician Mark Date Time Electronically viewed and signed by Jael López Physician on 07/03/2016 11:19 /
[2016-07-03 11:20] LABS: GLUCOSE 418 mg/dl (70-220)
[2016-07-03] MEDS: CALCIUM GLUCONATE 10% 1 GM in SOD CHLORIDE 0.9% 100 ML IVPB ONE ×2 (11:58→12:42)
[2016-07-03] MEDS ORDERED: NA POLYST SULFON 15 GM/60 ML BTL PO ONE (12:00)
[2016-07-03] MEDS ORDERED: GABAPENTIN 100 MG CAP PO ONE (12:00)
[2016-07-03] MEDS ORDERED: ACETAMINOPHEN 325 MG TAB PO PRN (12:30)
[2016-07-03] MEDS ORDERED: ONDANSETRON 4 MG INJ IV PRN (12:30)
[2016-07-03] MEDS ORDERED: DIPHENHYDRAMINE 50 MG CAP PO PRN (15:00)
--- NOTE | 2016-07-03 15:01 | HP ---
Date/Time of Note Date/Time of Note DATE: 07/03/16 TIME: 15:01 Assessment/Plan VTE Prophylaxis VTE Prophylaxis Intervention: other Lines/Catheters IV Catheter Type (from Nrsg): portacath Urinary Cath still in place: No Reason Cath still needed: terminal illness/intractable pain Assessment/Plan Assessment/Plan Diarrhea - GI consult appreciated- Dr Gomez notified - check stool for c-diff - will start on po vancomycin Bilateral foot pain. - Dilaudid for pain Accelerated hypertension - cont Indur Diabetes Type -1- poorly controlled - Endocrinology consult- dr Thakur notified Diabetic Hyperglycemia sec to above - on insulin pump - per endocrinology Hyperkalemia sp oral Kayexalate given - fu BMP am - HD per nephro Acute on chronic renal failure - Nephrology consult- notified - HD per nephrology Anxiety - Ativan for anxiety Protonix for GI prophylaxis.Dw dr Rosales HPI/ROS Admit Date/Time Admit Date/Time Jul 03, 2016 at 12:10 Hx of Present Illness This 50 year old man well known to me with history of type 1 diabetes mellitus , ESRD, and chronic complications,was seen in ER with c/o of diarrhea, cramping and extreme leg pain.Please note that the patient was discharged yesterday from the hospital. Patient notified his PMD Dr. Rosales who suggested him return to the [facility] instead of going to dialysis to be evaluated for his symptoms. In [facility] his Blood sugar was 400 plus and his potassium level was 6.3. He was admitted for further management. During assessment patient seems relaxed. NAD,denies any chest pain, shortness of breath, palpitations, diziness ROS Constitutional: other Eyes: discharge, no complaints ENT: no complaints Respiratory: no complaints Cardiovascular: no complaints Gastrointestinal: no complaints Genitourinary: no complaints Musculoskeletal: no complaints Skin: no complaints Neurologic: no complaints Endocrine: no complaints Lymphatic: no complaints PMH/Family/Social Past Surgical History Past Surgical Hx: angioplasty, other Social History Smoking Status: Never smoker Exam/Review of Systems Vital Signs Vitals Vital Signs Date Time Temp Pulse Resp B/P Pulse Ox O2 Delivery O2 Flow Rate FiO2 07/03/16 12:50 76 19 178/89 100 Room Air 07/03/16 09:07 98.5 Exam Constitutional: alert, oriented, well developed Psych: nl mood/affect Head: atraumatic Eyes: EOMI, nl sclera ENMT: nl external ears & nose Neck: non-tender Respiratory: clear to auscultation Cardiovascular: nl pulses, other ( Right neck dialysis catheter ) Gastrointestinal: non-tender, soft Musculoskeletal: other Extremities: normal pulses, other (EXTREMITIES: Bilateral feet with completely normal appearance. Dorsalis pedis and posterior tibial pulses intact bilaterally with capillary refill less than 1 second. No apparent tenderness to the feet on foot exam. Completely normal appearance of feet.) 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: nl mental status, nl speech Skin: nl turgor Lymph: nontender Labs Result Diagram: 07/03/16 1036 07/03/16 1036 Medications Medications Current Medications Aspirin (Halfprin) 81 mg DAILY PO ; Start 07/04/16 at 09:00 Atorvastatin Calcium (Lipitor) 80 mg QHS PO ; Start 07/03/16 at 21:00 Clonidine (Catapres) 0.1 mg Q6 PO ; Start 07/03/16 at 15:00 Diphenhydramine HCl (Benadryl) 50 mg Q6 PRN PO ITCHING; Start 07/03/16 at 15:00 Docusate Sodium (Colace) 100 mg BID PO ; Start 07/03/16 at 21:00 Isosorbide Mononitrate (Imdur) 60 mg DAILY PO ; Start 07/04/16 at 09:00 Lactobacillus Acidoph/Bulgaricus (Floranex) 1 tab TID PO ; Start 07/03/16 at 21: 00 Metoprolol Succinate (Toprol Xl) 50 mg BID PO ; Start 07/03/16 at 15:00 Prasugrel (Effient) 10 mg DAILY PO ; Start 07/04/16 at 09:00 Lorazepam (Ativan) 2 mg HS PRN PO ANXIETY; Start 07/03/16 at 21:00 Hydromorphone HCl (Dilaudid) 1 mg Q3 PRN IV PAIN; Start 07/03/16 at 15:00 Vancomycin HCl (Vancomycin Oral Syringe) 250 mg Q6 PO ; Start 07/03/16 at 18:00 Procedures Procedures DIAGNOSTICS: 1. CBC significant only for normocytic anemia with a hemoglobin of 10.7. This is not significantly changed from prior visits. 2, Coagulation studies within normal limits, an INR of 1.13. 3. BMP significant for mildly decreased sodium, elevated potassium of 16.3, glucose of 418, BUN of 63 and creatinine of 1.18 with anion gap of 20. Lactic acid is not elevated at 1.2. 4, Liver function tests with mildly elevated AST and ALT, alkaline phosphatase of 311. 5. Troponin is negative. 6. Lipase is slightly elevated at 410. IMAGING STUDIES: Chest x-ray interpretation: No acute process, no infiltrates , no pneumothorax, no pulmonary edema. Right-sided dialysis catheter in place with left subclavian port also in place. EKG interpretation: Normal sinus rhythm, rate of 75, left axis deviation. No ST or T-wave changes concerning for acute ischemia. PEDRO BENSON Jul 03, 2016 15:01
[2016-07-03] MEDS: HYDROmorphONE 1 MG/ML SYG IV PRN ×2 (15:15→21:14)
[2016-07-03] MEDS: METOPROLOL (XL) 50 MG TAB PO SCH ×2 (15:16→21:00)
[2016-07-03] MEDS ORDERED: LORAZEPAM 2 MG INJ IV PRN (15:30)
[2016-07-03] MEDS: DIPHENHYDRAMINE 50 MG INJ IV PRN (15:48)
[2016-07-03] MEDS: INSULIN ASPART [NOVOLOG] 3 ML PEN SC SCH (17:55)
[2016-07-03] MEDS: CALCIUM ACETATE 667 MG CAP PO SCH (17:59)
[2016-07-03] MEDS: SEVELAMER 800 MG TAB PO SCH (17:59)
[2016-07-03] MEDS: VANCOMYCIN HCL 250 MG/5ML POSYG PO SCH (17:59)
[2016-07-03] MEDS ORDERED: GLUCAGON 1 MG INJ IM PRN (18:00)
[2016-07-03] MEDS ORDERED: GLUCOSE GEL 15 GRAM TUBE PO PRN ×2 (18:00)
[2016-07-03] MEDS ORDERED: GLUCOSE GEL 15 GRAM TUBE BUCCAL PRN (18:00)
[2016-07-03] MEDS ORDERED: DEXTROSE 50% 50 ML SYRINGE IV PRN ×2 (18:00)
[2016-07-03] MEDS: ACCUCHECK XX SCH ×2 (18:03→19:55)
--- NOTE | 2016-07-03 18:40 | CONS ---
Date/Time of Note Date/Time of Note DATE: 07/03/16 TIME: 18:23 Assessment/Plan Assessment/Plan Problems: (1) Diabetes mellitus type 1, controlled, with complications Status: Chronic Comment: Patient with hyperglycemic excursion etiology unknown as patient denies high carbohydrate intake. On insulin pump for 24 hour insulin infusion. Will continue current pump setting, order accu-checks AC and 2 hours PC plus HS. Monitor blood glucose levels and make appropriate adjustments as deemed needed. Check HbA1c Patient with his own insulin vials for infusion set refills... will have staff electronic warfare officer keep refrigerated. (2) DM (diabetes mellitus) type 1 with ketoacidosis Status: Acute Comment: Elevated anion gap with low bicarbonate. Patient to make corrections via insulin pump. Qualifiers: Qualified Code: E10.10 - Type 1 diabetes mellitus with ketoacidosis without coma Additional Assessment/Plan 50 year old type 1 diabetic man with hyperglycemic excursion and DKA. Patient has a tendency to correct quickly using subcutaneous insulin via insulin pump with frequent corrections. Consultation Date/Type/Reason Admit Date/Time Jul 03, 2016 at 12:10 Date of Consultation: Jul 03, 2016 Type of Consultation: Endocrine Reason for Consultation Diabetes Management Referring Provider: WILMER ROSALES MD Hx of Present Illness This 50 year old man well known to me with type 1 diabetes mellitus and chronic complications, who was discharged yesterday from the hospital, presents back to [facility] describing recurrent episodes of diarrhea, cramping and extreme leg pain. Called his PMD Dr. Rosales who suggested he return to the [facility] instead of going to dialysis to be evaluated for his symptoms. In [facility] his Blood sugar was 400 plus and his potassium level was 6.3. He is admitted for further management. I hae been asked to assist with management of his blood glucose and insulin pump. Constitutional: no complaints Eyes: other (prosthetic eye) ENT: no complaints Respiratory: no complaints Cardiovascular: no complaints Gastrointestinal: diarrhea Genitourinary: no complaints Musculoskeletal: other (lower extremity cramping) Skin: no complaints Neurologic: other (increased hyperesthesia bilateral lower extremity) Endocrine: other (hyperglycemia) Psychological: no complaints Past Medical History Medical History: colitis, coronary artery disease, diabetes, hypertension, renal disease Past Surgical History Past Surgical Hx: other (AV fistula , Eye removal) Family History Significant Family History: other (unremarkable) Social History Alcohol Use: none Smoking Status: Never smoker Drug Use: marijuana Other Social History with 2 children Exam/Review of Systems Vital Signs Vitals Vital Signs Date Time Temp Pulse Resp B/P Pulse Ox O2 Delivery O2 Flow Rate FiO2 07/03/16 16:42 80 07/03/16 16:00 98.0 20 182/95 100 07/03/16 12:50 Room Air Exam Constitutional: alert, oriented, well developed Psych: no complaints Head: normocephalic Eyes: other (prosthetic eye) ENMT: nl external ears & nose Neck: supple Respiratory: clear to auscultation Cardiovascular: regular rate and rhythm Gastrointestinal: soft Musculoskeletal: nl extremities to inspection Extremities: normal pulses 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: PHARMACOGNOSY TEACHER II-XII intact, nl mental status, nl speech, nl strength Skin: other (tattoos) Results Labs reviewed Result Diagram: 07/03/16 1036 07/03/16 1036 Results 24 hrs Laboratory Tests Test 07/03/16 10:36 07/03/16 17:54 Activated Partial Thromboplast Time 60.7 H Alanine Aminotransferase (ALT/SGPT) 108 H Albumin 3.7 Albumin/Globulin Ratio 1.23 Alkaline Phosphatase 311 H Anion Gap 24 H Aspartate Amino Transf (AST/SGOT) 133 H Basophils # 0.1 Basophils % 1.1 Blood Morphology Comment Blood Urea Nitrogen 63 H Calcium Level 8.2 L Carbon Dioxide Level 18 L Chloride Level 96 L Creatinine 8.18 H Direct Bilirubin 0.00 Eosinophils # 0.2 Eosinophils % 3.6 Globulin 3.00 Glucose Level 418 *H Hematocrit 32.5 L Hemoglobin 10.7 L Hemoglobin A1c 6.9 H INR International Normalized Ratio 1.13 Indirect Bilirubin 0.1 Lactic Acid Level 1.2 Lipase 410 H Lymphocytes # 0.8 Lymphocytes % 12.3 L Mean Corpuscular Hemoglobin 29.6 Mean Corpuscular Hemoglobin Concent 32.8 Mean Corpuscular Volume 90.0 Mean Platelet Volume 10.1 Monocytes # 0.5 Monocytes % 7.7 Neutrophils # 5.0 Neutrophils % 75.3 Nucleated Red Blood Cells # 0.0 Nucleated Red Blood Cells % 0.0 Platelet Count 165 Potassium Level 6.3 *H Prothrombin Time 14.5 H Prothrombin Time Ratio 1.1 Red Blood Count 3.61 L Red Cell Distribution Width 16.7 H Sodium Level 132 L Total Bilirubin 0.1 L Total Protein 6.7 Troponin I < 0.012 White Blood Count 6.7 Bedside Glucose 313 H Medications Medications Current Medications Aspirin (Halfprin) 81 mg DAILY PO ; Start 07/04/16 at 09:00 Atorvastatin Calcium (Lipitor) 80 mg QHS PO ; Start 07/03/16 at 21:00 Clonidine (Catapres) 0.1 mg Q6 PO Last administered on 07/03/16 18:00; Admin Dose 0.1 MG; Start 07/03/16 at 15:00 Docusate Sodium (Colace) 100 mg BID PO ; Start 07/03/16 at 21:00 Isosorbide Mononitrate (Imdur) 60 mg DAILY PO ; Start 07/04/16 at 09:00 Lactobacillus Acidoph/Bulgaricus (Floranex) 1 tab TID PO ; Start 07/03/16 at 21: 00 Metoprolol Succinate (Toprol Xl) 50 mg BID PO Last administered on 07/03/16 15 :16; Admin Dose 50 MG; Start 07/03/16 at 15:00 Prasugrel (Effient) 10 mg DAILY PO ; Start 07/04/16 at 09:00 Lorazepam (Ativan) 2 mg HS PRN PO ANXIETY; Start 07/03/16 at 21:00 Hydromorphone HCl (Dilaudid) 1 mg Q3 PRN IV PAIN Last administered on 15:15; Admin Dose 1 MG; Start 07/03/16 at 15:00 Vancomycin HCl (Vancomycin Oral Syringe) 250 mg Q6 PO Last administered on 07/03 17:59; Admin Dose 250 MG; Start 07/03/16 at 18:00 Diphenhydramine HCl (Benadryl) 50 mg Q6H PRN IV ITCHING Last administered on 15:48; Admin Dose 50 MG; Start 07/03/16 at 15:30 Lorazepam (Ativan) 1 mg PRN PRN IV ANXIETY; Start 07/03/16 at 15:30 Miscellaneous Information 1 ea NOTE XX ; Start 07/03/16 at 18:00 Glucose (Glutose) 15 gm Q15M PRN PO DECREASED GLUCOSE; Start 07/03/16 at 18:00 Glucose (Glutose) 22.5 gm Q15M PRN PO DECREASED GLUCOSE; Start 07/03/16 at 18: 00 Dextrose (D50w Syringe) 25 ml Q15M PRN IV DECREASED GLUCOSE; Start 07/03/16 at 18:00 Dextrose (D50w Syringe) 50 ml Q15M PRN IV DECREASED GLUCOSE; Start 07/03/16 at 18:00 Glucagon (Glucagen) 1 mg Q15M PRN IM DECREASED GLUCOSE; Start 07/03/16 at 18:00 Glucose (Glutose) 15 gm Q15M PRN BUCCAL DECREASED GLUCOSE; Start 07/03/16 at 18 :00 KALPANA MARTINEZ MD Jul 03, 2016 18:36
[2016-07-03] MEDS: LORAZEPAM 2 MG INJ IV SCH (20:54)
[2016-07-03] MEDS: DIPHENHYDRAMINE 50 MG INJ IV SCH (20:55)
[2016-07-03] MEDS: LACTOBACILLUS CHEW TAB PO SCH (20:55)
[2016-07-03] MEDS: DOCUSATE SODIUM 100 MG CAP PO SCH (20:56)
[2016-07-03] MEDS: ATORVASTATIN 80 MG TAB PO SCH (20:56)
[2016-07-03] MEDS ORDERED: LORAZEPAM 1 MG TAB PO SCH (21:00)
[2016-07-03] MEDS ORDERED: LORAZEPAM 1 MG TAB PO PRN (21:00)
--- NOTE | 2016-07-03 23:32 | ERA ---
DATE OF SERVICE: 07/03/2016 HISTORY OF PRESENT ILLNESS: This 50-year-old male presents to the emergency room with bilateral delmi t pain and diarrhea. He was just recently discharged from the hospital for C diff diarrhea. Review of his medical record shows that he was testing negative for C diff and his white blood cell count was normalized prior to discharge. He states that his bilateral foot pain began suddenly last night and involves bilateral feet without involving the legs. He denies ever having pain like this befor e. Denies any trauma or injury. He has not had any fevers or chills. No chest pain, palpitations, shortness of breath. REVIEW OF SYSTEMS: Ten-point review of systems negative except as in HPI. PAST MEDICAL HISTORY: Hypertension, diabetes, chronic renal failure on dialysis. PAST SURGICAL HISTORY: Dialysis access, cardiac stenting. SOCIAL HISTORY: Denies tobacco, alcohol or other drugs. FAMILY HISTORY: Noncontributory. PHYSICAL EXAMINATION: VITAL SIGNS: Temperature 98.5, pulse 95, blood pressure 186/111, respiratory rate 18, oxygen satura tion 100% on room air. GENERAL: No acute distress. HEENT: Normocephalic, atraumatic. NECK: Supple. No JVD or meningismus. CARDIAC: Regular rate and rhythm. No murmurs. LUNGS: Clear to auscultation bilaterally. ABDOMEN: Soft, nondistended. No apparent tenderness. Bowel sounds positive, all 4 quadrants. SKIN: No rashes or other lesions. NEUROLOGIC: Alert and oriented x3. Cranial nerves II though XII intact. No focal deficits and mov es all 4 extremities. EXTREMITIES: Bilateral feet with completely normal appearance. Dorsalis pedis and posterior tibial pulses intact bilaterally with capillary refill less than 1 second. No apparent tenderness to the feet on foot exam. Completely normal appearance of feet. DIAGNOSTICS: Laboratory: CBC significant only for normocytic anemia with a hemoglobin of 10.7. Th is is not significantly changed from prior visits. Coagulation studies within normal limits, an INR of 1.13. BMP significant for mildly decreased sodium, elevated potassium of 16.3, glucose of 418, BUN of 63 and creatinine of 1.18 with anion gap of 20. Lactic acid is not elevated at 1.2. Liver f unction tests with mildly elevated AST and ALT, alkaline phosphatase of 311. Troponin is negative. Lipase is slightly elevated at 410. IMAGING STUDIES: Chest x-ray interpretation: No acute process, no infiltrates, no pneumothorax, no pulmonary edema. Right-sided dialysis catheter in place with left subclavian port also in place. EKG interpretation: Normal sinus rhythm, rate of 75, left axis deviation. No ST or T-wave changes concerning for acute ischemia. EMERGENCY DEPARTMENT COURSE AND MEDICAL DECISION MAKING: A 50-year-old male with returning diarrhea after recent admission. The patient also missed dialysis today and came to the emergency room inst ead. He does have an elevated potassium of 6.3. He will require admission for dialysis as the yaneli ent is refusing Kayexalate as well as calcium gluconate initially. He is demanding Dilaudid for his bilateral foot pain. He did not appear in any distress but was very demanding with the nursing sta ff, yelling demands across the emergency room related to basic comfort. He was also exhibiting drug -seeking behavior as he stated he had anxiety and demanded 50 mg of IV Benadryl to treat his anxiety . No evidence of any abnormalities of his feet was obtained, and sudden bilateral foot pain may rep resent diabetic neuropathy. The patient did refuse hyperkalemia treatment, although there were no s ignificant changes on his EKG. He did state that he did not want to take anything, he just wanted t o be dialyzed right now. I did a chart review the patient's previous visit, and I do doubt return o f the C diff with this diarrhea as the patient still has a normal white blood cell count and his C d iff studies had returned negative previously. He definitely needs to be admitted for dialysis as he has significantly elevated potassium with refusal to participate in any other acute therapies. He did eventually take the calcium gluconate when I explained to him that he could save his life by sta bilizing cardiac membranes. He is being admitted basically for dialysis and possible further workup of his diarrhea. No signs of sepsis. He did have an initially very high blood pressure. It decre ased on repeat blood pressure. He was given a small dose of Dilaudid as well as Neurontin for his p ain. The patient was treated with a liter of normal saline for his hyperglycemia. DIAGNOSES: 1. Hyperkalemia. 2. Acute on chronic renal failure. 3. Bilateral foot pain. 4. Diarrhea. 5. Accelerated hypertension. 6. Diabetic hyperglycemia. Critical care time 36 minutes: This includes treatment of hypertensive urgency in a patient with re nal failure partially secondary to hypertension in order to protect his kidneys from further damage as he is not yet anuric, chart review, multiple visits to the patient's bedside to assess his cardio dynamic status in a setting of hyperkalemia and extremely high blood pressure, use of labetalol as a vasoactive IV blood pressure-lowering medication, discussion with the patient and his admitting feliberto wilson, Dr. Rosales. This does not include any billable procedures. DISPOSITION: Admitted in serious condition. Dictated By: DEBBY CHESTER/SERGO Conf#: [id number] DID#: [id number]
[2016-07-04] VITALS (13 sets, daily range): BP systolic 106–156; BP diastolic 63–83; PULSE 69–77; RESP 18–24
[2016-07-04] MEDS: DIPHENHYDRAMINE 50 MG INJ IV PRN ×3 (00:09→23:58)
[2016-07-04] MEDS: HYDROmorphONE 1 MG/ML SYG IV PRN ×9 (00:18→23:59)
[2016-07-04] MEDS: VANCOMYCIN HCL 250 MG/5ML POSYG PO SCH ×5 (00:40→23:57)
[2016-07-04 07:24] LABS: BASOPHILS % 0.7 % (0.0-2.0); EOSINOPHILS # 0.3 10^3/ul (0.0-0.5); EOSINOPHILS % 5.8 % (0.0-7.0); HEMATOCRIT 30.6 % (42.0-52.0); HEMOGLOBIN 10.2 g/dl (14.0-18.0); LYMPHOCYTES # 1.1 10^3/ul (0.8-2.9); LYMPHOCYTES % 19.5 % (15.0-51.0); MEAN CORPUSCULAR HEMOGLOBIN 30.1 pg (29.0-33.0); MEAN CORPUSCULAR HGB CONC 33.2 g/dl (32.0-37.0); MEAN CORPUSCULAR VOLUME 90.6 fl (82.0-101.0); MEAN PLATELET VOLUME 10.4 fl (7.4-10.4); MONOCYTE # 0.3 10^3/ul (0.3-0.9); NEUTROPHIL # 3.9 10^3/ul (1.6-7.5); PLATELET COUNT 161 10^3/UL (140-440); RED BLOOD COUNT 3.38 10^6/ul (4.70-6.10); RED CELL DISTRIBUTION WIDTH 16.7 % (11.5-14.5); UNCORRECTED WBC 5.8 10^3/ul (4.8-10.8); WHITE BLOOD COUNT 5.8 10^3/ul (4.8-10.8)
[2016-07-04 07:25] LABS: POTASSIUM 4.6 mmol/L (3.5-5.1)
[2016-07-04 07:28] LABS: CREATININE 5.62 mg/dl (0.61-1.24)
[2016-07-04 07:29] LABS: CALCIUM 7.7 mg/dl (8.4-10.2)
[2016-07-04 07:30] LABS: CONDITION 1; LH ANALYZER COMMENTS 1
[2016-07-04] MEDS: INSULIN ASPART [NOVOLOG] 3 ML PEN SC SCH ×3 (07:55→17:34)
[2016-07-04] MEDS: ACCUCHECK XX SCH ×6 (07:58→19:55)
[2016-07-04] MEDS: METOPROLOL (XL) 50 MG TAB PO SCH ×2 (08:03→21:00)
[2016-07-04] MEDS: LACTOBACILLUS CHEW TAB PO SCH ×3 (08:03→20:59)
[2016-07-04] MEDS: DOCUSATE SODIUM 100 MG CAP PO SCH ×2 (08:03→20:59)
[2016-07-04] MEDS: SEVELAMER 800 MG TAB PO SCH ×3 (08:04→17:34)
[2016-07-04] MEDS: CALCIUM ACETATE 667 MG CAP PO SCH ×3 (08:04→17:34)
[2016-07-04] MEDS: ISOSORBIDE MONONITRATE(SR)60 MG TAB PO SCH (08:40)
[2016-07-04] MEDS: PRASUGREL HYDROCHLORIDE 10 MG TABLET PO SCH (08:40)
[2016-07-04] MEDS: ASPIRIN (EC) 81 MG TAB PO SCH (08:40)
--- NOTE | 2016-07-04 11:45 | CONS ---
Date/Time of Note Date/Time of Note DATE: 07/04/16 TIME: 11:42 Assessment/Plan Assessment/Plan Chief Complaint/Hosp Course 1. End-stage renal disease. His usual dialysis days are Thursday. I will order dialysis for tomorrow. 2. Hyperkalemia, this has corrected with dialysis last night. 3. Bilateral foot pain etiology unclear. 4. Type 1 diabetes mellitus. Problems: Consultation Date/Type/Reason Admit Date/Time Jul 03, 2016 at 12:10 Initial Consult Date 07/03/16 Type of Consultation: Endocrine Referring Provider: WILMER RODRIGUEZ MD 24 HR Interval Summary Free Text/Dictation He says that he is feeling better; however, he continues to have bilateral foot pain. Constitutional: improved Exam/Review of Systems Vital Signs Vitals Vital Signs Date Time Temp Pulse Resp B/P Pulse Ox O2 Delivery O2 Flow Rate FiO2 07/04/16 11:18 98.2 68 18 119/66 95 07/03/16 12:50 Room Air Intake and Output 07/03/16 07/03/16 07/04/16 15:00 23:00 07:00 Intake Total 1300 ml Output Total 3000 ml Balance -1700 ml Exam Psych: nl mood/affect Respiratory: clear to auscultation, normal air movement Cardiovascular: regular rate and rhythm Musculoskeletal: nl extremities to inspection Results Result Diagram: 07/04/16 0600 07/04/16 0600 Results 24 hrs Laboratory Tests Test 07/03/16 17:54 07/03/16 21:04 07/04/16 06:00 07/04/16 07:58 Bedside Glucose 313 H 346 H 113 Anion Gap 19 H Basophils # 0.0 Basophils % 0.7 Blood Morphology Comment Blood Urea Nitrogen 40 #H Calcium Level 7.7 L Carbon Dioxide Level 24 Chloride Level 100 Creatinine 5.62 #H Eosinophils # 0.3 Eosinophils % 5.8 Glucose Level 138 # Hematocrit 30.6 L Hemoglobin 10.2 L Lymphocytes # 1.1 Lymphocytes % 19.5 Mean Corpuscular Hemoglobin 30.1 Mean Corpuscular Hemoglobin Concent 33.2 Mean Corpuscular Volume 90.6 Mean Platelet Volume 10.4 Monocytes # 0.3 Monocytes % 6.0 Neutrophils # 3.9 Neutrophils % 68.0 Nucleated Red Blood Cells # 0.0 Nucleated Red Blood Cells % 0.0 Platelet Count 161 Potassium Level 4.6 Red Blood Count 3.38 L Red Cell Distribution Width 16.7 H Sodium Level 138 White Blood Count 5.8 Medications Medications Current Medications Aspirin (Halfprin) 81 mg DAILY PO Last administered on 07/04/16 08:40; Admin Dose 81 MG; Start 07/04/16 at 09:00 Atorvastatin Calcium (Lipitor) 80 mg QHS PO Last administered on 07/03/16 20: 56; Admin Dose 80 MG; Start 07/03/16 at 21:00 Clonidine (Catapres) 0.1 mg Q6 PO Last administered on 07/04/16 08:02; Admin Dose 0.1 MG; Start 07/03/16 at 15:00 Docusate Sodium (Colace) 100 mg BID PO Last administered on 07/04/16 08:03; Admin Dose 100 MG; Start 07/03/16 at 21:00 Isosorbide Mononitrate (Imdur) 60 mg DAILY PO Last administered on 07/04/16 08 :40; Admin Dose 60 MG; Start 07/04/16 at 09:00 Lactobacillus Acidoph/Bulgaricus (Floranex) 1 tab TID PO Last administered on 08:03; Admin Dose 1 TAB; Start 07/03/16 at 21:00 Metoprolol Succinate (Toprol Xl) 50 mg BID PO Last administered on 07/04/16 08 :03; Admin Dose 50 MG; Start 07/03/16 at 15:00 Prasugrel (Effient) 10 mg DAILY PO Last administered on 07/04/16 08:40; Admin Dose 10 MG; Start 07/04/16 at 09:00 Lorazepam (Ativan) 2 mg HS PRN PO ANXIETY; Start 07/03/16 at 21:00 Hydromorphone HCl (Dilaudid) 1 mg Q3 PRN IV PAIN Last administered on 08:41; Admin Dose 1 MG; Start 07/03/16 at 15:00 Vancomycin HCl (Vancomycin Oral Syringe) 250 mg Q6 PO Last administered on 07/04 05:59; Admin Dose 250 MG; Start 07/03/16 at 18:00 Diphenhydramine HCl (Benadryl) 50 mg Q6H PRN IV ITCHING Last administered on t 05:59; Admin Dose 50 MG; Start 07/03/16 at 15:30 Miscellaneous Information 1 ea NOTE XX ; Start 07/03/16 at 18:00 Glucose (Glutose) 15 gm Q15M PRN PO DECREASED GLUCOSE; Start 07/03/16 at 18:00 Glucose (Glutose) 22.5 gm Q15M PRN PO DECREASED GLUCOSE; Start 07/03/16 at 18: 00 Dextrose (D50w Syringe) 25 ml Q15M PRN IV DECREASED GLUCOSE; Start 07/03/16 at 18:00 Dextrose (D50w Syringe) 50 ml Q15M PRN IV DECREASED GLUCOSE; Start 07/03/16 at 18:00 Glucagon (Glucagen) 1 mg Q15M PRN IM DECREASED GLUCOSE; Start 07/03/16 at 18:00 Glucose (Glutose) 15 gm Q15M PRN BUCCAL DECREASED GLUCOSE; Start 07/03/16 at 18 :00 DONY HOWARD MD Jul 04, 2016 11:45
[2016-07-04] MEDS: DIPHENHYDRAMINE 50 MG INJ IV SCH ×2 (12:15→18:00)
--- NOTE | 2016-07-04 12:29 | CONS ---
DATE OF ADMISSION: 07/03/2016 DATE OF CONSULTATION: TYPE OF CONSULTATION: Renal. REASON FOR CONSULTATION: End-stage renal disease. HISTORY OF PRESENT ILLNESS: This 50-year-old man was re-admitted today after being discharged yeste rday. The patient says that after he went home yesterday from the hospital, he started having frequ ent episodes of diarrhea. The patient called his primary care physician, Dr. Rosales, and was inst ructed to come to the emergency room for further evaluation and treatment. The patient was seen in the emergency room and found to have a serum potassium of 6.3. The patient was then admitted [facility] a [facility] bed. The patient is now feeling in no acute distress. He said that he did have bilateral lower extremity pain. He continues to have pain in both feet. The patient was last admitted here 0 ____. At that time, he was found to have C difficile colitis. The patient is presumed to osorio ve continued C difficile colitis. He was sent home yesterday on oral vancomycin, which he says he h as been taking. The patient has end-stage renal disease and is on maintenance hemodialysis Thursday, , Thursday. Today being , he was due for dialysis. However, he did not go because of the diarrhea. PAST MEDICAL HISTORY: 1. Remarkable for coronary artery disease. He had a stent placed in the LAD in 03/2016. 2. End-stage renal disease. 3. Type 1 diabetes mellitus on an insulin pump. 4. Hypertension. 5. History of neurogenic bladder. 6. Recurrent urinary tract infections. 7. 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 8. Right rotator cuff tear. 9. Anemia of chronic kidney disease. ALLERGIES: THE PATIENT IS ALLERGIC TO: 1. CODEINE. 2. MORPHINE. 3. ZITHROMAX. SURGICAL HISTORY: Coronary artery stent placed in the LAD in 03/2016. Multiple surgeries for arter iovenous access. Last surgery was a left upper arm AV graft placed for hemodialysis. He does have a Port-A-Cath in the left upper chest, and he has a right internal jugular Perm-A-Cath. CURRENT MEDICATIONS: Include the followin. Lipitor 80 mg a day. 2. PhosLo 3 times a day with meals. 3. Isosorbide mononitrate 60 mg a day. 4. Lisinopril 10 mg a day. 5. Pantoprazole 40 mg a day. 6. Mirapex 0.25 mg at bedtime. 7. Lorazepam 1 mg before each dialysis. 8. Benadryl 50 mg IV before each dialysis. 9. Dilaudid 1 mg every 3 hours p.r.n. pain. 10. Renagel 1600 mg with each meal. 11. Vancomycin 250 mg p.o. q.i.d. 12. Effient 10 mg a day. 13. Metoprolol 50 mg twice a day. 14. Aspirin 81 mg a day. FAMILY HISTORY: Positive for coronary artery disease. SOCIAL HISTORY: The patient does not drink alcohol nor smoke cigarettes. PHYSICAL EXAMINATION: GENERAL: At this time reveals a well-developed man. No apparent distress. VITAL SIGNS: Temperature 98, pulse of 81, respirations 20, blood pressure 182/95, O2 saturation 100 % on room air. HEAD: Normocephalic. EYES: Extraocular muscles intact. NOSE AND MOUTH: Normal. NECK: Supple. No neck vein distention. LUNGS: Clear to auscultation and percussion. HEART: Regular rhythm. No murmurs, gallops or rubs. He does have a left chest Port-A-Cath in the right internal jugular Perm-A-Cath. HEART: Regular rhythm. No murmurs, gallops or rubs. ABDOMEN: Soft, nontender. No masses or megaly. EXTREMITIES: No peripheral edema. Left upper arm AV graft for hemodialysis. IMPRESSION: This patient presents now with end-stage renal disease, hyperkalemia and is due for his routine hemodialysis treatment. He is having frequent bowel movements that he says are diarrhea. He does have a history of recently diagnosed Clostridium difficile colitis. He is on oral vancomyci n for this. PLAN: 1. Hemodialysis has been ordered for tonight. 2. Resume routine medications. 3. Check labs in the morning. 4. I will follow the patient along with you. Dictated By: DONY HOWARD MD, ND/SERGO Conf#: [id number] DID#: [id number]
--- NOTE | 2016-07-04 14:43 | PN ---
Date/Time of Note Date/Time of Note DATE: 07/04/16 TIME: 14:42 Assessment/Plan VTE Prophylaxis VTE Prophylaxis Intervention: other Lines/Catheters IV Catheter Type (from Nrs): permacath Urinary Cath still in place: No Assessment/Plan Chief Complaint/Hosp Course 1) colitis - continue antibiotics 2) esrd - HD as needed 3) diabetes - monitor blood sugar Problems: Subjective 24 Hr Interval Summary Free Text/Dictation Patient complains of diarrhea and feet pain Exam/Review of Systems Vital Signs Vitals Vital Signs Date Time Temp Pulse Resp B/P Pulse Ox O2 Delivery O2 Flow Rate FiO2 07/04/16 13:54 69 07/04/16 11:18 98.2 18 119/66 95 07/03/16 12:50 Room Air Intake and Output 07/03/16 07/03/16 07/04/16 15:00 23:00 07:00 Intake Total 1300 ml Output Total 3000 ml Balance -1700 ml Exam Head: atraumatic, normocephalic Neck: supple Respiratory: clear to auscultation Cardiovascular: regular rate and rhythm Gastrointestinal: non-tender, soft Extremities: normal pulses Results Result Diagram: 07/04/16 0600 07/04/16 0600 Results 24 hrs Laboratory Tests Test 07/03/16 17:54 07/03/16 21:04 07/04/16 06:00 07/04/16 07:58 Bedside Glucose 313 H 346 H 113 Anion Gap 19 H Basophils # 0.0 Basophils % 0.7 Blood Morphology Comment Blood Urea Nitrogen 40 #H Calcium Level 7.7 L Carbon Dioxide Level 24 Chloride Level 100 Creatinine 5.62 #H Eosinophils # 0.3 Eosinophils % 5.8 Glucose Level 138 # Hematocrit 30.6 L Hemoglobin 10.2 L Lymphocytes # 1.1 Lymphocytes % 19.5 Mean Corpuscular Hemoglobin 30.1 Mean Corpuscular Hemoglobin Concent 33.2 Mean Corpuscular Volume 90.6 Mean Platelet Volume 10.4 Monocytes # 0.3 Monocytes % 6.0 Neutrophils # 3.9 Neutrophils % 68.0 Nucleated Red Blood Cells # 0.0 Nucleated Red Blood Cells % 0.0 Platelet Count 161 Potassium Level 4.6 Red Blood Count 3.38 L Red Cell Distribution Width 16.7 H Sodium Level 138 White Blood Count 5.8 Test 07/04/16 11:55 Bedside Glucose 229 H Medications Medications Current Medications Aspirin (Halfprin) 81 mg DAILY PO Last administered on 07/04/16 08:40; Admin Dose 81 MG; Start 07/04/16 at 09:00 Atorvastatin Calcium (Lipitor) 80 mg QHS PO Last administered on 07/03/16 20: 56; Admin Dose 80 MG; Start 07/03/16 at 21:00 Clonidine (Catapres) 0.1 mg Q6 PO Last administered on 07/04/16 08:02; Admin Dose 0.1 MG; Start 07/03/16 at 15:00 Docusate Sodium (Colace) 100 mg BID PO Last administered on 07/04/16 08:03; Admin Dose 100 MG; Start 07/03/16 at 21:00 Isosorbide Mononitrate (Imdur) 60 mg DAILY PO Last administered on 07/04/16 08 :40; Admin Dose 60 MG; Start 07/04/16 at 09:00 Lactobacillus Acidoph/Bulgaricus (Floranex) 1 tab TID PO Last administered on 12:01; Admin Dose 1 TAB; Start 07/03/16 at 21:00 Metoprolol Succinate (Toprol Xl) 50 mg BID PO Last administered on 07/04/16 08 :03; Admin Dose 50 MG; Start 07/03/16 at 15:00 Prasugrel (Effient) 10 mg DAILY PO Last administered on 07/04/16 08:40; Admin Dose 10 MG; Start 07/04/16 at 09:00 Lorazepam (Ativan) 2 mg HS PRN PO ANXIETY; Start 07/03/16 at 21:00 Hydromorphone HCl (Dilaudid) 1 mg Q3 PRN IV PAIN Last administered on 12:15; Admin Dose 1 MG; Start 07/03/16 at 15:00 Vancomycin HCl (Vancomycin Oral Syringe) 250 mg Q6 PO Last administered on 07/04 12:01; Admin Dose 250 MG; Start 07/03/16 at 18:00 Diphenhydramine HCl (Benadryl) 50 mg Q6H PRN IV ITCHING Last administered on 05:59; Admin Dose 50 MG; Start 07/03/16 at 15:30 Miscellaneous Information 1 ea NOTE XX ; Start 07/03/16 at 18:00 Glucose (Glutose) 15 gm Q15M PRN PO DECREASED GLUCOSE; Start 07/03/16 at 18:00 Glucose (Glutose) 22.5 gm Q15M PRN PO DECREASED GLUCOSE; Start 07/03/16 at 18: 00 Dextrose (D50w Syringe) 25 ml Q15M PRN IV DECREASED GLUCOSE; Start 07/03/16 at 18:00 Dextrose (D50w Syringe) 50 ml Q15M PRN IV DECREASED GLUCOSE; Start 07/03/16 at 18:00 Glucagon (Glucagen) 1 mg Q15M PRN IM DECREASED GLUCOSE; Start 07/03/16 at 18:00 Glucose (Glutose) 15 gm Q15M PRN BUCCAL DECREASED GLUCOSE; Start 07/03/16 at 18 :00 SHANTE SALDAÑA Jul 04, 2016 14:43
--- NOTE | 2016-07-04 16:51 | CONS ---
DATE OF ADMISSION: 07/04/2016 DATE OF CONSULTATION: 07/04/2016 REFERRING PHYSICIAN: Wilmer Rosales MD HISTORY OF PRESENT ILLNESS: Thank you for your referral. The patient is a 50-year-old male present ed to the emergency room for foot pain and diarrhea. He was recently discharged from the hospital a fter successfully being treated for Clostridium difficile colitis. Patient was on vancomycin. His testing was negative and he was discharged. White cell count was normal. However, the patient compl ains of profuse diarrhea. But when asked whether he gave the stool for analysis in the hospital in the last 24 hours the patient stated that he did not have bowel movements. No abdominal pain, no na usea, no vomiting, no fever, no chills. He had received antibiotic in May. The patient is als o known to have diabetes mellitus, hypertension and is on dialysis. REVIEW OF SYSTEMS: Otherwise negative. PAST SURGICAL HISTORY: Dialysis access. SOCIAL HISTORY: No alcohol, tobacco, or IV drugs. FAMILY HISTORY: Negative. PHYSICAL EXAMINATION: GENERAL: Moderately well-nourished, not in distress. VITAL SIGNS: Stable. HEENT: Unremarkable. NECK: Supple, no thyromegaly, no lymphadenopathy. CARDIOVASCULAR: No murmur, gallop or click. LUNGS: Clear. ABDOMEN: Benign. EXTREMITIES: No edema. CENTRAL NERVOUS SYSTEM: Grossly within normal limits. IMPRESSION: 1. Renal failure for which he is on dialysis. 2. Diabetes mellitus. 3. Hypertension. 4. Bilateral foot pain. 5. Diarrhea. PLAN: At this point, is to send stool for C. difficile. If it is positive, then patient will be tr eated for recurrent C. difficile colitis and will be on a complete course of vancomycin and then tap ering dose over a period of 2 to 3 weeks. We will also give him Florastor as a probiotic. We will follow him closely. Dictated By: NIYAH REED MD PJ/NTS Conf#: [id number] DID#: [id number] CC: NIYAH REED MD; WILMER ROSALES MD;*EndCC*
[2016-07-04] MEDS: ATORVASTATIN 80 MG TAB PO SCH (20:58)
[2016-07-05] VITALS (21 sets, daily range): BP systolic 118–166; BP diastolic 65–90; PULSE 61–81; RESP 16–20
[2016-07-05] MEDS: HYDROmorphONE 1 MG/ML SYG IV PRN ×8 (02:58→23:51)
[2016-07-05] MEDS: DIPHENHYDRAMINE 50 MG INJ IV PRN ×2 (05:58→23:51)
[2016-07-05] MEDS: VANCOMYCIN HCL 250 MG/5ML POSYG PO SCH ×4 (05:58→23:51)
[2016-07-05] MEDS: PANTOPRAZOLE (EC) 40 MG TAB PO SCH (05:58)
[2016-07-05 07:35] LABS: ALBUMIN 3.4 g/dl (3.3-4.9)
[2016-07-05] MEDS: ACCUCHECK XX SCH ×6 (07:36→20:58)
[2016-07-05] MEDS: INSULIN ASPART [NOVOLOG] 3 ML PEN SC SCH ×3 (07:37→17:38)
[2016-07-05 07:38] LABS: ALBUMIN/GLOBULIN RATIO 1.21; BILIRUBIN,INDIRECT 0.1 mg/dl (0-1.1); BILIRUBIN,TOTAL 0.1 mg/dl (0.2-1.3); CREATININE 7.4 mg/dl (0.61-1.24); TOTAL PROTEIN 6.2 g/dl (6.1-8.1)
[2016-07-05 07:39] LABS: CALCIUM 7.8 mg/dl (8.4-10.2); URIC ACID 6.8 mg/dl (3.1-7.9)
[2016-07-05] MEDS: SEVELAMER 800 MG TAB PO SCH ×3 (07:55→17:34)
[2016-07-05] MEDS: CALCIUM ACETATE 667 MG CAP PO SCH ×3 (07:55→17:35)
--- NOTE | 2016-07-05 08:34 | CONS ---
Date/Time of Note Date/Time of Note DATE: 07/05/16 TIME: 08:29 Assessment/Plan Assessment/Plan Problems: (1) Type 1 diabetes mellitus with diabetic nephropathy Status: Chronic Comment: His control is adequate he is not in DKA at this time. He will maintain on his insulin pump. He has adequate supply (2) End stage renal failure on dialysis Status: Chronic Comment: He is being managed for this on dialysis by our nephrology consult colleagues. This is stable (3) HTN (hypertension) Status: Chronic Comment: This is well controlled Qualifiers: Hypertension type: essential hypertension Qualified Code: I10 - Essential hypertension (4) Diarrhea Status: Acute Comment: He was admitted for presumed infectious colitis. I am not necessarily certain that I share this opinion. His had a single bowel movements that since admission and given his diabetic neuropathy easily have some diabetic intestinal issues. Regardless I do not believe that this needs to keep him in the facility any longer Qualifiers: Diarrhea type: presumed infectious Qualified Code: A09 - Diarrhea of presumed infectious origin (5) Chronic pain Status: Chronic Comment: The patient has a history of somewhat eager request for opiates. I believe that this may be something that we need to address more thoroughly. In the meantime is complaining of foot pain and states he has a history of gout. My exam is not consistent with gout however it would not necessarily be an inappropriate idea to place him on something to lower his uric acid if indicated. Regardless curtailing his pain medications is probably an appropriate maneuver here with the idea toward discharge Qualifiers: Chronic pain type: chronic pain syndrome Qualified Code: G89.4 - Chronic pain syndrome Consultation Date/Type/Reason Admit Date/Time Jul 04, 2016 at 16:05 Initial Consult Date 07/03/16 Type of Consultation: Endocrine Reason for Consultation Diabetes mellitus type 1 Referring Provider: WILMER RODRIGUEZ MD 24 HR Interval Summary Constitutional: no complaints Detailed Summary ENT: no complaints Respiratory: no complaints Cardiovascular: no complaints Gastrointestinal: diarrhea (Patient reports he had a single episode of watery diarrhea. The nursing notes indicated 500 cc bowel movement. ) Genitourinary: no complaints Exam/Review of Systems Vital Signs Vitals Vital Signs Date Time Temp Pulse Resp B/P Pulse Ox O2 Delivery O2 Flow Rate FiO2 07/05/16 08:17 64 07/05/16 07:38 97.9 16 145/80 98 07/03/16 12:50 Room Air Intake and Output 07/04/16 07/04/16 07/05/16 15:00 23:00 07:00 Intake Total 1000 ml 900 ml Output Total 550 ml Balance 450 ml 900 ml Exam Constitutional: alert, oriented Respiratory: clear to auscultation, normal air movement Cardiovascular: nl pulses, regular rate and rhythm Gastrointestinal: nl liver, spleen, non-tender, soft Extremities: normal pulses, tenderness Results Result Diagram: 07/04/16 0600 07/05/16 0630 Results 24 hrs Laboratory Tests Test 07/04/16 11:55 07/04/16 15:07 07/04/16 17:32 07/04/16 19:35 Bedside Glucose 229 H 207 79 213 Test 07/05/16 00:13 07/05/16 06:30 07/05/16 07:36 Bedside Glucose 102 120 Alanine Aminotransferase (ALT/SGPT) 87 H Albumin 3.4 Albumin/Globulin Ratio 1.21 Alkaline Phosphatase 214 H Anion Gap 21 H Aspartate Amino Transf (AST/SGOT) 68 H Blood Urea Nitrogen 58 H Calcium Level 7.8 L Carbon Dioxide Level 20 L Chloride Level 100 Creatinine 7.40 H Direct Bilirubin 0.00 Globulin 2.80 Glucose Level 137 Indirect Bilirubin 0.1 Potassium Level 6.0 H Sodium Level 135 Total Bilirubin 0.1 L Total Protein 6.2 Uric Acid 6.8 Medications Medications Current Medications Aspirin (Halfprin) 81 mg DAILY PO Last administered on 07/04/16 08:40; Admin Dose 81 MG; Start 07/04/16 at 09:00 Atorvastatin Calcium (Lipitor) 80 mg QHS PO Last administered on 07/04/16 20: 58; Admin Dose 80 MG; Start 07/03/16 at 21:00 Clonidine (Catapres) 0.1 mg Q6 PO Last administered on 07/04/16 08:02; Admin Dose 0.1 MG; Start 07/03/16 at 15:00 Docusate Sodium (Colace) 100 mg BID PO Last administered on 07/04/16 20:59; Admin Dose 100 MG; Start 07/03/16 at 21:00 Isosorbide Mononitrate (Imdur) 60 mg DAILY PO Last administered on 07/04/16 08 :40; Admin Dose 60 MG; Start 07/04/16 at 09:00 Lactobacillus Acidoph/Bulgaricus (Floranex) 1 tab TID PO Last administered on 20:59; Admin Dose 1 TAB; Start 07/03/16 at 21:00 Metoprolol Succinate (Toprol Xl) 50 mg BID PO Last administered on 07/04/16 21 :00; Admin Dose 50 MG; Start 07/03/16 at 15:00 Prasugrel (Effient) 10 mg DAILY PO Last administered on 07/04/16 08:40; Admin Dose 10 MG; Start 07/04/16 at 09:00 Lorazepam (Ativan) 2 mg HS PRN PO ANXIETY; Start 07/03/16 at 21:00 Hydromorphone HCl (Dilaudid) 1 mg Q3 PRN IV PAIN Last administered on 05:59; Admin Dose 1 MG; Start 07/03/16 at 15:00 Vancomycin HCl (Vancomycin Oral Syringe) 250 mg Q6 PO Last administered on 07/05 05:58; Admin Dose 250 MG; Start 07/03/16 at 18:00 Diphenhydramine HCl (Benadryl) 50 mg Q6H PRN IV ITCHING Last administered on 05:58; Admin Dose 50 MG; Start 07/03/16 at 15:30 Miscellaneous Information 1 ea NOTE XX ; Start 07/03/16 at 18:00 Glucose (Glutose) 15 gm Q15M PRN PO DECREASED GLUCOSE; Start 07/03/16 at 18:00 Glucose (Glutose) 22.5 gm Q15M PRN PO DECREASED GLUCOSE; Start 07/03/16 at 18: 00 Dextrose (D50w Syringe) 25 ml Q15M PRN IV DECREASED GLUCOSE; Start 07/03/16 at 18:00 Dextrose (D50w Syringe) 50 ml Q15M PRN IV DECREASED GLUCOSE; Start 07/03/16 at 18:00 Glucagon (Glucagen) 1 mg Q15M PRN IM DECREASED GLUCOSE; Start 07/03/16 at 18:00 Glucose (Glutose) 15 gm Q15M PRN BUCCAL DECREASED GLUCOSE; Start 07/03/16 at 18 :00 Pantoprazole (Protonix Tab) 40 mg DAILY@06 PO Last administered on 07/05/16 05 :58; Admin Dose 40 MG; Start 07/05/16 at 06:00 DEBBY BURT MD Jul 05, 2016 08:34
[2016-07-05] MEDS: ISOSORBIDE MONONITRATE(SR)60 MG TAB PO SCH (09:00)
[2016-07-05] MEDS: ASPIRIN (EC) 81 MG TAB PO SCH (09:00)
[2016-07-05] MEDS: METOPROLOL (XL) 50 MG TAB PO SCH ×2 (09:00→20:52)
[2016-07-05] MEDS: LORAZEPAM 2 MG INJ IV SCH (09:02)
[2016-07-05] MEDS: DIPHENHYDRAMINE 50 MG INJ IV SCH ×3 (09:03→17:58)
[2016-07-05] MEDS: PRASUGREL HYDROCHLORIDE 10 MG TABLET PO SCH (09:09)
[2016-07-05] MEDS: LACTOBACILLUS CHEW TAB PO SCH ×3 (09:09→20:52)
[2016-07-05] MEDS: DOCUSATE SODIUM 100 MG CAP PO SCH ×2 (09:09→20:52)
--- NOTE | 2016-07-05 10:52 | PN ---
Date/Time of Note Date/Time of Note DATE: 07/05/16 TIME: 10:51 Assessment/Plan VTE Prophylaxis VTE Prophylaxis Intervention: heparin Lines/Catheters IV [facility] Perma cath Urinary Cath still in place: No Assessment/Plan Chief Complaint/Hosp Course 1) colitis - continue antibiotics 2) esrd - HD as needed 3) diabetes - monitor blood sugar Problems: Subjective 24 Hr Interval Summary Free Text/Dictation Patient still having diarrhea Exam/Review of Systems Vital Signs Vitals Vital Signs Date Time Temp Pulse Resp B/P Pulse Ox O2 Delivery O2 Flow Rate FiO2 07/05/16 10:30 68 07/05/16 09:00 16 07/05/16 07:38 97.9 145/80 98 07/03/16 12:50 Room Air Intake and Output 07/04/16 07/04/16 07/05/16 15:00 23:00 07:00 Intake Total 1000 ml 900 ml Output Total 550 ml Balance 450 ml 900 ml Exam Constitutional: well developed Head: atraumatic, normocephalic Neck: supple Respiratory: clear to auscultation Cardiovascular: regular rate and rhythm Gastrointestinal: non-tender, soft Extremities: normal pulses Results Result Diagram: 07/04/16 0600 07/05/16 0630 Results 24 hrs Laboratory Tests Test 07/04/16 11:55 07/04/16 15:07 07/04/16 17:32 07/04/16 19:35 Bedside Glucose 229 H 207 79 213 Test 07/05/16 00:13 07/05/16 06:30 07/05/16 07:36 07/05/16 10:38 Bedside Glucose 102 120 174 Alanine Aminotransferase (ALT/SGPT) 87 H Albumin 3.4 Albumin/Globulin Ratio 1.21 Alkaline Phosphatase 214 H Anion Gap 21 H Aspartate Amino Transf (AST/SGOT) 68 H Blood Urea Nitrogen 58 H Calcium Level 7.8 L Carbon Dioxide Level 20 L Chloride Level 100 Creatinine 7.40 H Direct Bilirubin 0.00 Globulin 2.80 Glucose Level 137 Indirect Bilirubin 0.1 Potassium Level 6.0 H Sodium Level 135 Total Bilirubin 0.1 L Total Protein 6.2 Uric Acid 6.8 Medications Medications Current Medications Aspirin (Halfprin) 81 mg DAILY PO Last administered on 07/04/16t 08:40; Admin Dose 81 MG; Start 07/04/16 at 09:00 Atorvastatin Calcium (Lipitor) 80 mg QHS PO Last administered on 07/04/16 20: 58; Admin Dose 80 MG; Start 07/03/16 at 21:00 Clonidine (Catapres) 0.1 mg Q6 PO Last administered on 07/04/16 08:02; Admin Dose 0.1 MG; Start 07/03/16 at 15:00 Docusate Sodium (Colace) 100 mg BID PO Last administered on 07/05/16 09:09; Admin Dose 100 MG; Start 07/03/16 at 21:00 Isosorbide Mononitrate (Imdur) 60 mg DAILY PO Last administered on 07/04/16 08 :40; Admin Dose 60 MG; Start 07/04/16 at 09:00 Lactobacillus Acidoph/Bulgaricus (Floranex) 1 tab TID PO Last administered on 09:09; Admin Dose 1 TAB; Start 07/03/16 at 21:00 Metoprolol Succinate (Toprol Xl) 50 mg BID PO Last administered on 07/04/16 21 :00; Admin Dose 50 MG; Start 07/03/16 at 15:00 Prasugrel (Effient) 10 mg DAILY PO Last administered on 07/05/16 09:09; Admin Dose 10 MG; Start 07/04/16 at 09:00 Lorazepam (Ativan) 2 mg HS PRN PO ANXIETY; Start 07/03/16 at 21:00 Hydromorphone HCl (Dilaudid) 1 mg Q3 PRN IV PAIN Last administered on 08:59; Admin Dose 1 MG; Start 07/03/16 at 15:00 Vancomycin HCl (Vancomycin Oral Syringe) 250 mg Q6 PO Last administered on 07/05 05:58; Admin Dose 250 MG; Start 07/03/16 at 18:00 Diphenhydramine HCl (Benadryl) 50 mg Q6H PRN IV ITCHING Last administered on 05:58; Admin Dose 50 MG; Start 07/03/16 at 15:30 Miscellaneous Information 1 ea NOTE XX ; Start 07/03/16 at 18:00 Glucose (Glutose) 15 gm Q15M PRN PO DECREASED GLUCOSE; Start 07/03/16 at 18:00 Glucose (Glutose) 22.5 gm Q15M PRN PO DECREASED GLUCOSE; Start 07/03/16 at 18: 00 Dextrose (D50w Syringe) 25 ml Q15M PRN IV DECREASED GLUCOSE; Start 07/03/16 at 18:00 Dextrose (D50w Syringe) 50 ml Q15M PRN IV DECREASED GLUCOSE; Start 07/03/16 at 18:00 Glucagon (Glucagen) 1 mg Q15M PRN IM DECREASED GLUCOSE; Start 07/03/16 at 18:00 Glucose (Glutose) 15 gm Q15M PRN BUCCAL DECREASED GLUCOSE; Start 07/03/16 at 18 :00 Pantoprazole (Protonix Tab) 40 mg DAILY@06 PO Last administered on 07/05/16t 05 :58; Admin Dose 40 MG; Start 07/05/16 at 06:00 SHANTE SALDAÑA Jul 05, 2016 10:52
--- NOTE | 2016-07-05 15:32 | CONS ---
Date/Time of Note Date/Time of Note DATE: 07/05/16 TIME: 15:29 Assessment/Plan Assessment/Plan Additional Assessment/Plan 1. End-stage renal disease. Potassium was elevated again today, now s/p hd. Check labs in am. 2. Hyperkalemia 3. Bilateral foot pain etiology unclear. 4. Type 1 diabetes mellitus, controlled on insulin pump 5. Diarrhea, c. dif now negative. Consultation Date/Type/Reason Admit Date/Time Jul 04, 2016 at 16:05 Initial Consult Date 07/03/16 Type of Consultation: Nephrology Referring Provider: WILMER RODRIGUEZ MD 24 HR Interval Summary Free Text/Dictation Alert, no diarrhea. Had dialysis today. Exam/Review of Systems Vital Signs Vitals Vital Signs Date Time Temp Pulse Resp B/P Pulse Ox O2 Delivery O2 Flow Rate FiO2 07/05/16 12:47 73 07/05/16 12:45 18 07/05/16 11:38 97.9 134/84 95 07/03/16 12:50 Room Air Intake and Output 07/04/16 07/04/16 07/05/16 15:00 23:00 07:00 Intake Total 1000 ml 900 ml Output Total 550 ml Balance 450 ml 900 ml Exam Constitutional: alert, oriented Neck: supple Respiratory: clear to auscultation Cardiovascular: regular rate and rhythm, No edema Gastrointestinal: non-tender, soft Results Result Diagram: 07/04/16 0600 07/05/16 0630 Results 24 hrs Laboratory Tests Test 07/04/16 17:32 07/04/16 19:35 07/05/16 00:13 07/05/16 06:30 Bedside Glucose 79 213 102 Alanine Aminotransferase (ALT/SGPT) 87 H Albumin 3.4 Albumin/Globulin Ratio 1.21 Alkaline Phosphatase 214 H Anion Gap 21 H Aspartate Amino Transf (AST/SGOT) 68 H Blood Urea Nitrogen 58 H Calcium Level 7.8 L Carbon Dioxide Level 20 L Chloride Level 100 Creatinine 7.40 H Direct Bilirubin 0.00 Globulin 2.80 Glucose Level 137 Indirect Bilirubin 0.1 Potassium Level 6.0 H Sodium Level 135 Total Bilirubin 0.1 L Total Protein 6.2 Uric Acid 6.8 Test 07/05/16 07:36 07/05/16 10:38 07/05/16 12:06 07/05/16 14:23 Bedside Glucose 120 174 187 117 Medications Medications Current Medications Aspirin (Halfprin) 81 mg DAILY PO Last administered on 07/04/16 08:40; Admin Dose 81 MG; Start 07/04/16 at 09:00 Atorvastatin Calcium (Lipitor) 80 mg QHS PO Last administered on 07/04/16 20: 58; Admin Dose 80 MG; Start 07/03/16 at 21:00 Clonidine (Catapres) 0.1 mg Q6 PO Last administered on 07/05/16 12:03; Admin Dose 0.1 MG; Start 07/03/16 at 15:00 Docusate Sodium (Colace) 100 mg BID PO Last administered on 07/05/16 09:09; Admin Dose 100 MG; Start 07/03/16 at 21:00 Isosorbide Mononitrate (Imdur) 60 mg DAILY PO Last administered on 07/04/16 08 :40; Admin Dose 60 MG; Start 07/04/16 at 09:00 Lactobacillus Acidoph/Bulgaricus (Floranex) 1 tab TID PO Last administered on 12:02; Admin Dose 1 TAB; Start 07/03/16 at 21:00 Metoprolol Succinate (Toprol Xl) 50 mg BID PO Last administered on 07/04/16 21 :00; Admin Dose 50 MG; Start 07/03/16 at 15:00 Prasugrel (Effient) 10 mg DAILY PO Last administered on 07/05/16 09:09; Admin Dose 10 MG; Start 07/04/16 at 09:00 Lorazepam (Ativan) 2 mg HS PRN PO ANXIETY; Start 07/03/16 at 21:00 Hydromorphone HCl (Dilaudid) 1 mg Q3 PRN IV PAIN Last administered on 14:59; Admin Dose 1 MG; Start 07/03/16 at 15:00 Vancomycin HCl (Vancomycin Oral Syringe) 250 mg Q6 PO Last administered on 07/05 12:10; Admin Dose 250 MG; Start 07/03/16 at 18:00 Diphenhydramine HCl (Benadryl) 50 mg Q6H PRN IV ITCHING Last administered on 05:58; Admin Dose 50 MG; Start 07/03/16 at 15:30 Miscellaneous Information 1 ea NOTE XX ; Start 07/03/16 at 18:00 Glucose (Glutose) 15 gm Q15M PRN PO DECREASED GLUCOSE; Start 07/03/16 at 18:00 Glucose (Glutose) 22.5 gm Q15M PRN PO DECREASED GLUCOSE; Start 07/03/16 at 18: 00 Dextrose (D50w Syringe) 25 ml Q15M PRN IV DECREASED GLUCOSE; Start 07/03/16 at 18:00 Dextrose (D50w Syringe) 50 ml Q15M PRN IV DECREASED GLUCOSE; Start 07/03/16 at 18:00 Glucagon (Glucagen) 1 mg Q15M PRN IM DECREASED GLUCOSE; Start 07/03/16 at 18:00 Glucose (Glutose) 15 gm Q15M PRN BUCCAL DECREASED GLUCOSE; Start 07/03/16 at 18 :00 Pantoprazole (Protonix Tab) 40 mg DAILY@06 PO Last administered on 07/05/16t 05 :58; Admin Dose 40 MG; Start 07/05/16 at 06:00 CARMINE MCINTOSH MD Jul 05, 2016 15:32
[2016-07-05 19:11] LABS: ADD UMIC YES; URINE BILIRUBIN (Dip) NEGATIVE (NEGATIVE); URINE BLOOD (Dip) NEGATIVE (NEGATIVE); URINE COLOR LT. YELLOW (YELLOW); URINE GLUCOSE (Dip) NEGATIVE (NEGATIVE); URINE KETONES (Dip) NEGATIVE (NEGATIVE); URINE LEUKOCYTE ESTERASE (Dip) NEGATIVE (NEGATIVE); URINE NITRITE (Dip) NEGATIVE (NEGATIVE); URINE TOTAL PROTEIN (Dip) 2+ (NEGATIVE); URINE UROBILINOGEN (Dip) 0.2 E.U./dL (0.1-1.0)
--- NOTE | 2016-07-05 19:29 | CONS ---
Date/Time of Note Date/Time of Note DATE: 07/05/16 TIME: 19:27 Assessment/Plan Assessment/Plan Additional Assessment/Plan IMPRESSION: 1. Renal failure for which he is on dialysis. 2. Diabetes mellitus. 3. Hypertension. 4. Bilateral foot pain. 5. Diarrhea.c.difficile negative Plan continue present care if true diarrhea then will treat him with Questran.Pt. 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 Consultation Date/Type/Reason Admit Date/Time Jul 04, 2016 at 16:05 Initial Consult Date 07/03/16 Type of Consultation: Nephrology Referring Provider: WILMER RODRIGUEZ MD 24 HR Interval Summary Constitutional: improved Exam/Review of Systems Vital Signs Vitals Vital Signs Date Time Temp Pulse Resp B/P Pulse Ox O2 Delivery O2 Flow Rate FiO2 07/05/16 16:16 79 07/05/16 15:28 98.2 18 145/81 95 07/03/16 12:50 Room Air Intake and Output 07/04/16 07/04/16 07/05/16 15:00 23:00 07:00 Intake Total 1000 ml 900 ml Output Total 550 ml Balance 450 ml 900 ml Exam Constitutional: alert, oriented, well developed Psych: nl mood/affect, no complaints Head: atraumatic, normocephalic Eyes: EOMI, PERRL, nl conjunctiva, nl lids, nl sclera ENMT: nl external ears & nose, nl lips & teeth, nl nasal mucosa & septum Neck: non-tender, supple Respiratory: clear to auscultation, normal air movement Cardiovascular: nl pulses, regular rate and rhythm Gastrointestinal: nl liver, spleen, non-tender, soft Musculoskeletal: nl extremities to inspection, nl gait and stance Extremities: normal pulses 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: 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 II-XII 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, nl mental status, nl speech, nl strength Skin: nl turgor, No rash or lesions Lymph: nl lymph nodes Results Result Diagram: 07/04/16 0600 07/05/16 0630 Results 24 hrs Laboratory Tests Test 07/04/16 19:35 07/05/16 00:13 07/05/16 06:30 07/05/16 07:36 Bedside Glucose 213 102 120 Alanine Aminotransferase (ALT/SGPT) 87 H Albumin 3.4 Albumin/Globulin Ratio 1.21 Alkaline Phosphatase 214 H Anion Gap 21 H Aspartate Amino Transf (AST/SGOT) 68 H Blood Urea Nitrogen 58 H Calcium Level 7.8 L Carbon Dioxide Level 20 L Chloride Level 100 Creatinine 7.40 H Direct Bilirubin 0.00 Globulin 2.80 Glucose Level 137 Indirect Bilirubin 0.1 Potassium Level 6.0 H Sodium Level 135 Total Bilirubin 0.1 L Total Protein 6.2 Uric Acid 6.8 Test 07/05/16 10:38 07/05/16 12:06 07/05/16 14:23 07/05/16 17:25 Bedside Glucose 174 187 117 77 Medications Medications Current Medications Aspirin (Halfprin) 81 mg DAILY PO Last administered on 07/04/16 08:40; Admin Dose 81 MG; Start 07/04/16 at 09:00 Atorvastatin Calcium (Lipitor) 80 mg QHS PO Last administered on 07/04/16 20: 58; Admin Dose 80 MG; Start 07/03/16 at 21:00 Clonidine (Catapres) 0.1 mg Q6 PO Last administered on 07/05/16 12:03; Admin Dose 0.1 MG; Start 07/03/16 at 15:00 Docusate Sodium (Colace) 100 mg BID PO Last administered on 07/05/16 09:09; Admin Dose 100 MG; Start 07/03/16 at 21:00 Isosorbide Mononitrate (Imdur) 60 mg DAILY PO Last administered on 07/04/16 08 :40; Admin Dose 60 MG; Start 07/04/16 at 09:00 Lactobacillus Acidoph/Bulgaricus (Floranex) 1 tab TID PO Last administered on 12:02; Admin Dose 1 TAB; Start 07/03/16 at 21:00 Metoprolol Succinate (Toprol Xl) 50 mg BID PO Last administered on 07/04/16 21 :00; Admin Dose 50 MG; Start 07/03/16 at 15:00 Prasugrel (Effient) 10 mg DAILY PO Last administered on 07/05/16 09:09; Admin Dose 10 MG; Start 07/04/16 at 09:00 Lorazepam (Ativan) 2 mg HS PRN PO ANXIETY; Start 07/03/16 at 21:00 Hydromorphone HCl (Dilaudid) 1 mg Q3 PRN IV PAIN Last administered on 17:58; Admin Dose 1 MG; Start 07/03/16 at 15:00 Vancomycin HCl (Vancomycin Oral Syringe) 250 mg Q6 PO Last administered on 07/05 17:38; Admin Dose 250 MG; Start 07/03/16 at 18:00 Diphenhydramine HCl (Benadryl) 50 mg Q6H PRN IV ITCHING Last administered on 05:58; Admin Dose 50 MG; Start 07/03/16 at 15:30 Miscellaneous Information 1 ea NOTE XX ; Start 07/03/16 at 18:00 Glucose (Glutose) 15 gm Q15M PRN PO DECREASED GLUCOSE; Start 07/03/16 at 18:00 Glucose (Glutose) 22.5 gm Q15M PRN PO DECREASED GLUCOSE; Start 07/03/16 at 18: 00 Dextrose (D50w Syringe) 25 ml Q15M PRN IV DECREASED GLUCOSE; Start 07/03/16 at 18:00 Dextrose (D50w Syringe) 50 ml Q15M PRN IV DECREASED GLUCOSE; Start 07/03/16 at 18:00 Glucagon (Glucagen) 1 mg Q15M PRN IM DECREASED GLUCOSE; Start 07/03/16 at 18:00 Glucose (Glutose) 15 gm Q15M PRN BUCCAL DECREASED GLUCOSE; Start 07/03/16 at 18 :00 Pantoprazole (Protonix Tab) 40 mg DAILY@06 PO Last administered on 07/05/16 05 :58; Admin Dose 40 MG; Start 07/05/16 at 06:00 NIYAH REED MD Jul 05, 2016 19:29
[2016-07-05 19:36] LABS: SQUAMOUS EPITHELIAL CELL,UR OCCASIONAL; URINE RBCS 2-5 (1+) /HPF (0)
[2016-07-05] MEDS: ATORVASTATIN 80 MG TAB PO SCH (20:52)
[2016-07-06] VITALS (21 sets, daily range): BP systolic 110–151; BP diastolic 70–87; PULSE 6–81; RESP 16–20
[2016-07-06] MEDS: HYDROmorphONE 1 MG/ML SYG IV PRN ×8 (03:01→23:52)
[2016-07-06] MEDS: VANCOMYCIN HCL 250 MG/5ML POSYG PO SCH ×4 (05:57→23:57)
[2016-07-06] MEDS: PANTOPRAZOLE (EC) 40 MG TAB PO SCH (05:57)
[2016-07-06] MEDS: DIPHENHYDRAMINE 50 MG INJ IV PRN ×4 (06:04→23:52)
[2016-07-06 07:19] LABS: BASOPHIL # 0.1 10^3/ul (0.0-0.1); BASOPHILS % 1.3 % (0.0-2.0); EOSINOPHILS # 0.5 10^3/ul (0.0-0.5); EOSINOPHILS % 9.3 % (0.0-7.0); HEMATOCRIT 33.6 % (42.0-52.0); HEMOGLOBIN 11.1 g/dl (14.0-18.0); LYMPHOCYTES # 1.4 10^3/ul (0.8-2.9); LYMPHOCYTES % 25.4 % (15.0-51.0); MEAN CORPUSCULAR HEMOGLOBIN 30.2 pg (29.0-33.0); MEAN CORPUSCULAR HGB CONC 33.2 g/dl (32.0-37.0); MEAN CORPUSCULAR VOLUME 91.1 fl (82.0-101.0); MEAN PLATELET VOLUME 10.4 fl (7.4-10.4); MONOCYTE # 0.4 10^3/ul (0.3-0.9); MONOCYTES % 7.1 % (0.0-11.0); NEUTROPHIL # 3.1 10^3/ul (1.6-7.5); NEUTROPHILS % 56.9 % (39.0-77.0); PLATELET COUNT 179 10^3/UL (140-440); RED BLOOD COUNT 3.69 10^6/ul (4.70-6.10); RED CELL DISTRIBUTION WIDTH 16.8 % (11.5-14.5); UNCORRECTED WBC 5.4 10^3/ul (4.8-10.8); WHITE BLOOD COUNT 5.4 10^3/ul (4.8-10.8)
[2016-07-06 07:30] LABS: ALBUMIN 3.6 g/dl (3.3-4.9)
[2016-07-06 07:31] LABS: POTASSIUM 5.6 mmol/L (3.5-5.1)
[2016-07-06 07:33] LABS: ALBUMIN/GLOBULIN RATIO 1.2; CREATININE 6.47 mg/dl (0.61-1.24); TOTAL PROTEIN 6.6 g/dl (6.1-8.1)
[2016-07-06 07:34] LABS: CALCIUM 8.1 mg/dl (8.4-10.2)
[2016-07-06] MEDS: ACCUCHECK XX SCH ×6 (07:35→21:20)
[2016-07-06] MEDS: INSULIN ASPART [NOVOLOG] 3 ML PEN SC SCH ×3 (07:36→17:06)
[2016-07-06 07:38] LABS: CONDITION 1; LH ANALYZER COMMENTS 1
--- NOTE | 2016-07-06 07:59 | CONS ---
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 His diabetic "enteropathy" as cited by the deckhand oyster dredge is 1 that will require careful balance. He does not have C. difficile colitis and no longer needs to be in the hospital. (2) Diarrhea Status: Acute Comment: This is not an infectious diarrhea he is stable for discharge. Please note there is a careful balance using the Colace to keep her from getting blocked up and alternating that with his other options. I believe the deckhand oyster dredge is on the right track to recommend the usage of Questran to try and help balance, he will still need the Colace most likely Qualifiers: Diarrhea type: presumed infectious Qualified Code: A09 - Diarrhea of presumed infectious origin (3) Diabetes mellitus type 1, controlled, with complications Status: Chronic Comment: At this time on his present regimen using a pump his control is adequate (4) HTN (hypertension) Status: Chronic Comment: Well-controlled. 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 Constitutional: no complaints Detailed Summary Respiratory: no complaints Cardiovascular: no complaints Gastrointestinal: no complaints Genitourinary: no complaints Exam/Review of Systems Vital Signs Vitals Vital Signs Date Time Temp Pulse Resp B/P Pulse Ox O2 Delivery O2 Flow Rate FiO2 07/06/16 07:40 97.7 78 18 145/70 95 07/03/16 12:50 Room Air Intake and Output 07/05/16 07/05/16 07/06/16 15:00 23:00 07:00 Intake Total 500 ml 560 ml 500 ml Output Total 6000 ml 300 ml 350 ml Balance -5500 ml 260 ml 150 ml Exam Constitutional: alert, oriented Respiratory: clear to auscultation, normal air movement Cardiovascular: nl pulses, regular rate and rhythm Results Result Diagram: 07/06/16 0530 07/06/16 0530 Results 24 hrs Laboratory Tests Test 07/05/16 10:38 07/05/16 12:06 07/05/16 14:23 07/05/16 17:25 Bedside Glucose 174 187 117 77 Test 07/05/16 19:00 07/05/16 20:58 07/06/16 05:30 07/06/16 07:34 Urine Bilirubin NEGATIVE Urine Calcium Oxalate Crystals OCCASIONAL Urine Clarity CLEAR Urine Color LT. YELLOW Urine Glucose NEGATIVE Urine Hemoglobin NEGATIVE Urine Ketones NEGATIVE Urine Leukocyte Esterase NEGATIVE Urine Microscopic RBC 2-5 (1+) Urine Microscopic WBC 0-2 Urine Nitrite NEGATIVE Urine Specific [place] 1.015 Urine Squamous Epithelial Cells OCCASIONAL Urine Total Protein 2+ H Urine Urobilinogen 0.2 E.U./dL Urine pH 8.5 Bedside Glucose 139 85 Alanine Aminotransferase (ALT/SGPT) 73 H Albumin 3.6 Albumin/Globulin Ratio 1.20 Alkaline Phosphatase 212 H Anion Gap 20 H Aspartate Amino Transf (AST/SGOT) 53 H Basophils # 0.1 Basophils % 1.3 Blood Morphology Comment Blood Urea Nitrogen 50 H Calcium Level 8.1 L Carbon Dioxide Level 22 Chloride Level 101 Creatinine 6.47 H Direct Bilirubin 0.00 Eosinophils # 0.5 Eosinophils % 9.3 H Globulin 3.00 Glucose Level 108 Hematocrit 33.6 L Hemoglobin 11.1 L Indirect Bilirubin 0.0 Lymphocytes # 1.4 Lymphocytes % 25.4 Mean Corpuscular Hemoglobin 30.2 Mean Corpuscular Hemoglobin Concent 33.2 Mean Corpuscular Volume 91.1 Mean Platelet Volume 10.4 Monocytes # 0.4 Monocytes % 7.1 Neutrophils # 3.1 Neutrophils % 56.9 Nucleated Red Blood Cells # 0.0 Nucleated Red Blood Cells % 0.0 Platelet Count 179 Potassium Level 5.6 H Red Blood Count 3.69 L Red Cell Distribution Width 16.8 H Sodium Level 137 Total Bilirubin 0.0 L Total Protein 6.6 White Blood Count 5.4 Medications Medications Current Medications Aspirin (Halfprin) 81 mg DAILY PO Last administered on 07/04/16 08:40; Admin Dose 81 MG; Start 07/04/16 at 09:00 Atorvastatin Calcium (Lipitor) 80 mg QHS PO Last administered on 07/05/16 20: 52; Admin Dose 80 MG; Start 07/03/16 at 21:00 Clonidine (Catapres) 0.1 mg Q6 PO Last administered on 07/05/16 12:03; Admin Dose 0.1 MG; Start 07/03/16 at 15:00 Docusate Sodium (Colace) 100 mg BID PO Last administered on 07/05/16 20:52; Admin Dose 100 MG; Start 07/03/16 at 21:00 Isosorbide Mononitrate (Imdur) 60 mg DAILY PO Last administered on 07/04/16 08 :40; Admin Dose 60 MG; Start 07/04/16 at 09:00 Lactobacillus Acidoph/Bulgaricus (Floranex) 1 tab TID PO Last administered on 20:52; Admin Dose 1 TAB; Start 07/03/16 at 21:00 Metoprolol Succinate (Toprol Xl) 50 mg BID PO Last administered on 07/05/16 20 :52; Admin Dose 50 MG; Start 07/03/16 at 15:00 Prasugrel (Effient) 10 mg DAILY PO Last administered on 07/05/16 09:09; Admin Dose 10 MG; Start 07/04/16 at 09:00 Lorazepam (Ativan) 2 mg HS PRN PO ANXIETY; Start 07/03/16 at 21:00 Hydromorphone HCl (Dilaudid) 1 mg Q3 PRN IV PAIN Last administered on 05:56; Admin Dose 1 MG; Start 07/03/16 at 15:00 Vancomycin HCl (Vancomycin Oral Syringe) 250 mg Q6 PO Last administered on 07/06 05:57; Admin Dose 250 MG; Start 07/03/16 at 18:00 Diphenhydramine HCl (Benadryl) 50 mg Q6H PRN IV ITCHING Last administered on 06:04; Admin Dose 50 MG; Start 07/03/16 at 15:30 Miscellaneous Information 1 ea NOTE XX ; Start 07/03/16 at 18:00 Glucose (Glutose) 15 gm Q15M PRN PO DECREASED GLUCOSE; Start 07/03/16 at 18:00 Glucose (Glutose) 22.5 gm Q15M PRN PO DECREASED GLUCOSE; Start 07/03/16 at 18: 00 Dextrose (D50w Syringe) 25 ml Q15M PRN IV DECREASED GLUCOSE; Start 07/03/16 at 18:00 Dextrose (D50w Syringe) 50 ml Q15M PRN IV DECREASED GLUCOSE; Start 07/03/16 at 18:00 Glucagon (Glucagen) 1 mg Q15M PRN IM DECREASED GLUCOSE; Start 07/03/16 at 18:00 Glucose (Glutose) 15 gm Q15M PRN BUCCAL DECREASED GLUCOSE; Start 07/03/16 at 18 :00 Pantoprazole (Protonix Tab) 40 mg DAILY@06 PO Last administered on 07/06/16t 05 :57; Admin Dose 40 MG; Start 07/05/16 at 06:00 DEBBY BURT MD Jul 06, 2016 07:59
[2016-07-06] MEDS: PRASUGREL HYDROCHLORIDE 10 MG TABLET PO SCH (08:14)
[2016-07-06] MEDS: ASPIRIN (EC) 81 MG TAB PO SCH (08:14)
[2016-07-06] MEDS: DOCUSATE SODIUM 100 MG CAP PO SCH ×2 (08:14→20:53)
[2016-07-06] MEDS: SEVELAMER 800 MG TAB PO SCH ×3 (08:14→17:50)
[2016-07-06] MEDS: LACTOBACILLUS CHEW TAB PO SCH ×3 (08:14→20:53)
[2016-07-06] MEDS: CALCIUM ACETATE 667 MG CAP PO SCH ×3 (08:14→17:50)
[2016-07-06] MEDS: METOPROLOL (XL) 50 MG TAB PO SCH ×2 (08:15→20:54)
[2016-07-06] MEDS: ISOSORBIDE MONONITRATE(SR)60 MG TAB PO SCH (08:15)
--- NOTE | 2016-07-06 11:53 | PN ---
Date/Time of Note Date/Time of Note DATE: 07/06/16 TIME: 11:53 Assessment/Plan VTE Prophylaxis VTE Prophylaxis Intervention: other Lines/Catheters IV [facility]from [facility]): PERMA CATH Urinary Cath still in place: No Assessment/Plan Chief Complaint/Hosp Course 1) colitis - continue antibiotics 2) esrd - HD as needed 3) diabetes - monitor blood sugar Problems: Subjective 24 Hr Interval Summary Free Text/Dictation Patient still have diarrhea but is better Exam/Review of Systems Vital Signs Vitals Vital Signs Date Time Temp Pulse Resp B/P Pulse Ox O2 Delivery O2 Flow Rate FiO2 07/06/16 11:33 98.1 75 18 149/74 99 07/03/16 12:50 Room Air Intake and Output 07/05/16 07/05/16 07/06/16 15:00 23:00 07:00 Intake Total 500 ml 560 ml 500 ml Output Total 6000 ml 300 ml 350 ml Balance -5500 ml 260 ml 150 ml Exam Constitutional: well developed Head: atraumatic, normocephalic Neck: supple Respiratory: clear to auscultation Cardiovascular: regular rate and rhythm Gastrointestinal: non-tender, soft Extremities: normal pulses Results Result Diagram: 07/06/16 0530 07/06/16 0530 Results 24 hrs Laboratory Tests Test 07/05/16 12:06 07/05/16 14:23 07/05/16 17:25 07/05/16 19:00 Bedside Glucose 187 117 77 Urine Bilirubin NEGATIVE Urine Calcium Oxalate Crystals OCCASIONAL Urine Clarity CLEAR Urine Color LT. YELLOW Urine Glucose NEGATIVE Urine Hemoglobin NEGATIVE Urine Ketones NEGATIVE Urine Leukocyte Esterase NEGATIVE Urine Microscopic RBC 2-5 (1+) Urine Microscopic WBC 0-2 Urine Nitrite NEGATIVE Urine Specific [place] 1.015 Urine Squamous Epithelial Cells OCCASIONAL Urine Total Protein 2+ H Urine Urobilinogen 0.2 E.U./dL Urine pH 8.5 Test 07/05/16 20:58 07/06/16 05:30 07/06/16 07:34 07/06/16 10:00 Bedside Glucose 139 85 240 H Alanine Aminotransferase (ALT/SGPT) 73 H Albumin 3.6 Albumin/Globulin Ratio 1.20 Alkaline Phosphatase 212 H Anion Gap 20 H Aspartate Amino Transf (AST/SGOT) 53 H Basophils # 0.1 Basophils % 1.3 Blood Morphology Comment Blood Urea Nitrogen 50 H Calcium Level 8.1 L Carbon Dioxide Level 22 Chloride Level 101 Creatinine 6.47 H Direct Bilirubin 0.00 Eosinophils # 0.5 Eosinophils % 9.3 H Globulin 3.00 Glucose Level 108 Hematocrit 33.6 L Hemoglobin 11.1 L Indirect Bilirubin 0.0 Lymphocytes # 1.4 Lymphocytes % 25.4 Mean Corpuscular Hemoglobin 30.2 Mean Corpuscular Hemoglobin Concent 33.2 Mean Corpuscular Volume 91.1 Mean Platelet Volume 10.4 Monocytes # 0.4 Monocytes % 7.1 Neutrophils # 3.1 Neutrophils % 56.9 Nucleated Red Blood Cells # 0.0 Nucleated Red Blood Cells % 0.0 Platelet Count 179 Potassium Level 5.6 H Red Blood Count 3.69 L Red Cell Distribution Width 16.8 H Sodium Level 137 Total Bilirubin 0.0 L Total Protein 6.6 White Blood Count 5.4 Test 07/06/16 11:47 Bedside Glucose 253 H Medications Medications Current Medications Aspirin (Halfprin) 81 mg DAILY PO Last administered on 07/06/16 08:14; Admin Dose 81 MG; Start 07/04/16 at 09:00 Atorvastatin Calcium (Lipitor) 80 mg QHS PO Last administered on 07/05/16 20: 52; Admin Dose 80 MG; Start 07/03/16 at 21:00 Clonidine (Catapres) 0.1 mg Q6 PO Last administered on 07/05/16 12:03; Admin Dose 0.1 MG; Start 07/03/16 at 15:00 Docusate Sodium (Colace) 100 mg BID PO Last administered on 07/06/16 08:14; Admin Dose 100 MG; Start 07/03/16 at 21:00 Isosorbide Mononitrate (Imdur) 60 mg DAILY PO Last administered on 07/04/16 08 :40; Admin Dose 60 MG; Start 07/04/16 at 09:00 Lactobacillus Acidoph/Bulgaricus (Floranex) 1 tab TID PO Last administered on 08:14; Admin Dose 1 TAB; Start 07/03/16 at 21:00 Metoprolol Succinate (Toprol Xl) 50 mg BID PO Last administered on 07/05/16 20 :52; Admin Dose 50 MG; Start 07/03/16 at 15:00 Prasugrel (Effient) 10 mg DAILY PO Last administered on 07/06/16 08:14; Admin Dose 10 MG; Start 07/04/16 at 09:00 Lorazepam (Ativan) 2 mg HS PRN PO ANXIETY; Start 07/03/16 at 21:00 Hydromorphone HCl (Dilaudid) 1 mg Q3 PRN IV PAIN Last administered on 08:56; Admin Dose 1 MG; Start 07/03/16 at 15:00 Vancomycin HCl (Vancomycin Oral Syringe) 250 mg Q6 PO Last administered on 07/06 05:57; Admin Dose 250 MG; Start 07/03/16 at 18:00 Diphenhydramine HCl (Benadryl) 50 mg Q6H PRN IV ITCHING Last administered on 06:04; Admin Dose 50 MG; Start 07/03/16 at 15:30 Miscellaneous Information 1 ea NOTE XX ; Start 07/03/16 at 18:00 Glucose (Glutose) 15 gm Q15M PRN PO DECREASED GLUCOSE; Start 07/03/16 at 18:00 Glucose (Glutose) 22.5 gm Q15M PRN PO DECREASED GLUCOSE; Start 07/03/16 at 18: 00 Dextrose (D50w Syringe) 25 ml Q15M PRN IV DECREASED GLUCOSE; Start 07/03/16 at 18:00 Dextrose (D50w Syringe) 50 ml Q15M PRN IV DECREASED GLUCOSE; Start 07/03/16 at 18:00 Glucagon (Glucagen) 1 mg Q15M PRN IM DECREASED GLUCOSE; Start 07/03/16 at 18:00 Glucose (Glutose) 15 gm Q15M PRN BUCCAL DECREASED GLUCOSE; Start 07/03/16 at 18 :00 Pantoprazole (Protonix Tab) 40 mg DAILY@06 PO Last administered on 07/06/16 05 :57; Admin Dose 40 MG; Start 07/05/16 at 06:00 SHANTE SALDAÑA Jul 06, 2016 11:53
[2016-07-06] MEDS ORDERED: LIDOCAINE 1% (MDV) 20 ML INJ SC ONE (14:30)
[2016-07-06] MEDS: LORAZEPAM 2 MG INJ IV SCH (14:38)
[2016-07-06] MEDS: DIPHENHYDRAMINE 50 MG INJ IV SCH (14:38)
--- NOTE | 2016-07-06 14:56 | CONS ---
Date/Time of Note Date/Time of Note DATE: 07/06/16 TIME: 14:55 Assessment/Plan Assessment/Plan Additional Assessment/Plan Additional Assessment/Plan IMPRESSION: 1. Renal failure for which he is on dialysis. 2. Diabetes mellitus. 3. Hypertension. 4. Bilateral foot pain. 5. Diarrhea.c.difficile negative Plan continue present care Lexiran.Pt. 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 Consultation Date/Type/Reason Admit Date/Time Jul 04, 2016 at 16:05 Initial Consult Date 07/03/16 Type of Consultation: Endocrinology Referring Provider: WILMER RODRIGUEZ MD 24 HR Interval Summary Free Text/Dictation diarrhea Exam/Review of Systems Vital Signs Vitals Vital Signs Date Time Temp Pulse Resp B/P Pulse Ox O2 Delivery O2 Flow Rate FiO2 07/06/16 12:15 73 07/06/16 11:33 98.1 18 149/74 99 07/03/16 12:50 Room Air Intake and Output 07/05/16 07/05/16 07/06/16 15:00 23:00 07:00 Intake Total 500 ml 560 ml 500 ml Output Total 6000 ml 300 ml 350 ml Balance -5500 ml 260 ml 150 ml Exam Constitutional: alert, oriented, well developed Psych: nl mood/affect, no complaints Head: atraumatic, normocephalic Eyes: EOMI, PERRL, nl conjunctiva, nl lids, nl sclera ENMT: nl external ears & nose, nl lips & teeth, nl nasal mucosa & septum Neck: non-tender, supple Respiratory: clear to auscultation, normal air movement Cardiovascular: nl pulses, regular rate and rhythm Gastrointestinal: nl liver, spleen, non-tender, soft Musculoskeletal: nl extremities to inspection, nl gait and stance Extremities: normal pulses 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 YELLOW Urine Glucose NEGATIVE Urine Hemoglobin NEGATIVE Urine Ketones NEGATIVE Urine Leukocyte Esterase NEGATIVE Urine Microscopic RBC 2-5 (1+) Urine Microscopic WBC 0-2 Urine Nitrite NEGATIVE Urine Specific [place] 1.015 Urine Squamous Epithelial Cells OCCASIONAL Urine Total Protein 2+ H Urine Urobilinogen 0.2 E.U./dL Urine pH 8.5 Alanine Aminotransferase (ALT/SGPT) 73 H Albumin 3.6 Albumin/Globulin Ratio 1.20 Alkaline Phosphatase 212 H Anion Gap 20 H Aspartate Amino Transf (AST/SGOT) 53 H Basophils # 0.1 Basophils % 1.3 Blood Morphology Comment Blood Urea Nitrogen 50 H Calcium Level 8.1 L Carbon Dioxide Level 22 Chloride Level 101 Creatinine 6.47 H Direct Bilirubin 0.00 Eosinophils # 0.5 Eosinophils % 9.3 H Globulin 3.00 Glucose Level 108 Hematocrit 33.6 L Hemoglobin 11.1 L Indirect Bilirubin 0.0 Lymphocytes # 1.4 Lymphocytes % 25.4 Mean Corpuscular Hemoglobin 30.2 Mean Corpuscular Hemoglobin Concent 33.2 Mean Corpuscular Volume 91.1 Mean Platelet Volume 10.4 Monocytes # 0.4 Monocytes % 7.1 Neutrophils # 3.1 Neutrophils % 56.9 Nucleated Red Blood Cells # 0.0 Nucleated Red Blood Cells % 0.0 Platelet Count 179 Potassium Level 5.6 H Red Blood Count 3.69 L Red Cell Distribution Width 16.8 H Sodium Level 137 Total Bilirubin 0.0 L Total Protein 6.6 White Blood Count 5.4 Test 07/06/16 07:34 07/06/16 10:00 07/06/16 11:47 07/06/16 14:15 Bedside Glucose 85 240 H 253 H 124 Medications Medications Current Medications Aspirin (Halfprin) 81 mg DAILY PO Last administered on 07/06/16 08:14; Admin Dose 81 MG; Start 07/04/16 at 09:00 Atorvastatin Calcium (Lipitor) 80 mg QHS PO Last administered on 07/05/16 20: 52; Admin Dose 80 MG; Start 07/03/16 at 21:00 Clonidine (Catapres) 0.1 mg Q6 PO Last administered on 07/05/16 12:03; Admin Dose 0.1 MG; Start 07/03/16 at 15:00 Docusate Sodium (Colace) 100 mg BID PO Last administered on 07/06/16 08:14; Admin Dose 100 MG; Start 07/03/16 at 21:00 Isosorbide Mononitrate (Imdur) 60 mg DAILY PO Last administered on 07/04/16 08 :40; Admin Dose 60 MG; Start 07/04/16 at 09:00 Lactobacillus Acidoph/Bulgaricus (Floranex) 1 tab TID PO Last administered on 12:08; Admin Dose 1 TAB; Start 07/03/16 at 21:00 Metoprolol Succinate (Toprol Xl) 50 mg BID PO Last administered on 07/05/16 20 :52; Admin Dose 50 MG; Start 07/03/16 at 15:00 Prasugrel (Effient) 10 mg DAILY PO Last administered on 07/06/16 08:14; Admin Dose 10 MG; Start 07/04/16 at 09:00 Lorazepam (Ativan) 2 mg HS PRN PO ANXIETY; Start 07/03/16 at 21:00 Hydromorphone HCl (Dilaudid) 1 mg Q3 PRN IV PAIN Last administered on 12:02; Admin Dose 1 MG; Start 07/03/16 at 15:00 Vancomycin HCl (Vancomycin Oral Syringe) 250 mg Q6 PO Last administered on 07/06 12:08; Admin Dose 250 MG; Start 07/03/16 at 18:00 Diphenhydramine HCl (Benadryl) 50 mg Q6H PRN IV ITCHING Last administered on 12:02; Admin Dose 50 MG; Start 07/03/16 at 15:30 Miscellaneous Information 1 ea NOTE XX ; Start 07/03/16 at 18:00 Glucose (Glutose) 15 gm Q15M PRN PO DECREASED GLUCOSE; Start 07/03/16 at 18:00 Glucose (Glutose) 22.5 gm Q15M PRN PO DECREASED GLUCOSE; Start 07/03/16 at 18: 00 Dextrose (D50w Syringe) 25 ml Q15M PRN IV DECREASED GLUCOSE; Start 07/03/16 at 18:00 Dextrose (D50w Syringe) 50 ml Q15M PRN IV DECREASED GLUCOSE; Start 07/03/16 at 18:00 Glucagon (Glucagen) 1 mg Q15M PRN IM DECREASED GLUCOSE; Start 07/03/16 at 18:00 Glucose (Glutose) 15 gm Q15M PRN BUCCAL DECREASED GLUCOSE; Start 07/03/16 at 18 :00 Pantoprazole (Protonix Tab) 40 mg DAILY@06 PO Last administered on 07/06/16t 05 :57; Admin Dose 40 MG; Start 07/05/16 at 06:00 NIYAH REED MD Jul 06, 2016 14:56
--- NOTE | 2016-07-06 15:22 | CONS ---
Date/Time of Note Date/Time of Note DATE: 07/06/16 TIME: 15:20 Assessment/Plan Assessment/Plan Additional Assessment/Plan 1. End-stage renal disease. Potassium was elevated again today. Hemodialysis for today. Labs in am. 2. Hyperkalemia 3. Bilateral foot pain etiology unclear. 4. Type 1 diabetes mellitus, controlled on insulin pump 5. Diarrhea resolving. C. dif. negative. Consultation Date/Type/Reason Admit Date/Time Jul 04, 2016 at 16:05 Initial Consult Date 07/03/16 Type of Consultation: Nephrology Referring Provider: WILMER RODRIGUEZ MD 24 HR Interval Summary Free Text/Dictation Alert, just starting dialysis. One loose stool today. Exam/Review of Systems Vital Signs Vitals Vital Signs Date Time Temp Pulse Resp B/P Pulse Ox O2 Delivery O2 Flow Rate FiO2 07/06/16 12:15 73 07/06/16 11:33 98.1 18 149/74 99 07/03/16 12:50 Room Air Intake and Output 07/05/16 07/05/16 07/06/16 15:00 23:00 07:00 Intake Total 500 ml 560 ml 500 ml Output Total 6000 ml 300 ml 350 ml Balance -5500 ml 260 ml 150 ml Exam Constitutional: alert Head: normocephalic Neck: supple, No jvd Respiratory: clear to auscultation Cardiovascular: regular rate and rhythm Gastrointestinal: non-tender, soft Results Result Diagram: 07/06/16 0530 07/06/16 0530 Results 24 hrs Laboratory Tests Test 07/05/16 17:25 07/05/16 19:00 07/05/16 20:58 07/06/16 05:30 Bedside Glucose 77 139 Urine Bilirubin NEGATIVE Urine Calcium Oxalate Crystals OCCASIONAL Urine Clarity CLEAR Urine Color LT. YELLOW Urine Glucose NEGATIVE Urine Hemoglobin NEGATIVE Urine Ketones NEGATIVE Urine Leukocyte Esterase NEGATIVE Urine Microscopic RBC 2-5 (1+) Urine Microscopic WBC 0-2 Urine Nitrite NEGATIVE Urine Specific [employer] 1.015 Urine Squamous Epithelial Cells OCCASIONAL Urine Total Protein 2+ H Urine Urobilinogen 0.2 E.U./dL Urine pH 8.5 Alanine Aminotransferase (ALT/SGPT) 73 H Albumin 3.6 Albumin/Globulin Ratio 1.20 Alkaline Phosphatase 212 H Anion Gap 20 H Aspartate Amino Transf (AST/SGOT) 53 H Basophils # 0.1 Basophils % 1.3 Blood Morphology Comment Blood Urea Nitrogen 50 H Calcium Level 8.1 L Carbon Dioxide Level 22 Chloride Level 101 Creatinine 6.47 H Direct Bilirubin 0.00 Eosinophils # 0.5 Eosinophils % 9.3 H Globulin 3.00 Glucose Level 108 Hematocrit 33.6 L Hemoglobin 11.1 L Indirect Bilirubin 0.0 Lymphocytes # 1.4 Lymphocytes % 25.4 Mean Corpuscular Hemoglobin 30.2 Mean Corpuscular Hemoglobin Concent 33.2 Mean Corpuscular Volume 91.1 Mean Platelet Volume 10.4 Monocytes # 0.4 Monocytes % 7.1 Neutrophils # 3.1 Neutrophils % 56.9 Nucleated Red Blood Cells # 0.0 Nucleated Red Blood Cells % 0.0 Platelet Count 179 Potassium Level 5.6 H Red Blood Count 3.69 L Red Cell Distribution Width 16.8 H Sodium Level 137 Total Bilirubin 0.0 L Total Protein 6.6 White Blood Count 5.4 Test 07/06/16 07:34 07/06/16 10:00 07/06/16 11:47 07/06/16 14:15 Bedside Glucose 85 240 H 253 H 124 Medications Medications Current Medications Aspirin (Halfprin) 81 mg DAILY PO Last administered on 07/06/16 08:14; Admin Dose 81 MG; Start 07/04/16 at 09:00 Atorvastatin Calcium (Lipitor) 80 mg QHS PO Last administered on 07/05/16 20: 52; Admin Dose 80 MG; Start 07/03/16 at 21:00 Clonidine (Catapres) 0.1 mg Q6 PO Last administered on 07/05/16 12:03; Admin Dose 0.1 MG; Start 07/03/16 at 15:00 Docusate Sodium (Colace) 100 mg BID PO Last administered on 07/06/16 08:14; Admin Dose 100 MG; Start 07/03/16 at 21:00 Isosorbide Mononitrate (Imdur) 60 mg DAILY PO Last administered on 07/04/16 08 :40; Admin Dose 60 MG; Start 07/04/16 at 09:00 Lactobacillus Acidoph/Bulgaricus (Floranex) 1 tab TID PO Last administered on 12:08; Admin Dose 1 TAB; Start 07/03/16 at 21:00 Metoprolol Succinate (Toprol Xl) 50 mg BID PO Last administered on 07/05/16 20 :52; Admin Dose 50 MG; Start 07/03/16 at 15:00 Prasugrel (Effient) 10 mg DAILY PO Last administered on 07/06/16 08:14; Admin Dose 10 MG; Start 07/04/16 at 09:00 Lorazepam (Ativan) 2 mg HS PRN PO ANXIETY; Start 07/03/16 at 21:00 Hydromorphone HCl (Dilaudid) 1 mg Q3 PRN IV PAIN Last administered on 15:09; Admin Dose 1 MG; Start 07/03/16 at 15:00 Vancomycin HCl (Vancomycin Oral Syringe) 250 mg Q6 PO Last administered on 07/06 12:08; Admin Dose 250 MG; Start 07/03/16 at 18:00 Diphenhydramine HCl (Benadryl) 50 mg Q6H PRN IV ITCHING Last administered on 12:02; Admin Dose 50 MG; Start 07/03/16 at 15:30 Miscellaneous Information 1 ea NOTE XX ; Start 07/03/16 at 18:00 Glucose (Glutose) 15 gm Q15M PRN PO DECREASED GLUCOSE; Start 07/03/16 at 18:00 Glucose (Glutose) 22.5 gm Q15M PRN PO DECREASED GLUCOSE; Start 07/03/16 at 18: 00 Dextrose (D50w Syringe) 25 ml Q15M PRN IV DECREASED GLUCOSE; Start 07/03/16 at 18:00 Dextrose (D50w Syringe) 50 ml Q15M PRN IV DECREASED GLUCOSE; Start 07/03/16 at 18:00 Glucagon (Glucagen) 1 mg Q15M PRN IM DECREASED GLUCOSE; Start 07/03/16 at 18:00 Glucose (Glutose) 15 gm Q15M PRN BUCCAL DECREASED GLUCOSE; Start 07/03/16 at 18 :00 Pantoprazole (Protonix Tab) 40 mg DAILY@06 PO Last administered on 07/06/16 05 :57; Admin Dose 40 MG; Start 07/05/16 at 06:00 Cholestyramine Resin (Questran Light) 4 gm BID PO ; Start 07/06/16 at 21:00 CARMINE MCINTOSH MD Jul 06, 2016 15:22
[2016-07-06] MEDS: ATORVASTATIN 80 MG TAB PO SCH (20:53)
[2016-07-06] MEDS: CHOLESTYRAMINE (LIGHT) 4 GM PACKET PO SCH (21:20)
[2016-07-07] VITALS (19 sets, daily range): BP systolic 102–174; BP diastolic 71–90; PULSE 63–95; RESP 16–20
[2016-07-07] MEDS: HYDROmorphONE 1 MG/ML SYG IV PRN ×8 (02:57→23:56)
[2016-07-07] MEDS: PANTOPRAZOLE (EC) 40 MG TAB PO SCH (05:55)
[2016-07-07] MEDS: VANCOMYCIN HCL 250 MG/5ML POSYG PO SCH ×3 (05:55→17:56)
[2016-07-07] MEDS: DIPHENHYDRAMINE 50 MG INJ IV PRN ×3 (05:55→23:57)
[2016-07-07 06:45] LABS: BASOPHILS % 0.7 % (0.0-2.0); EOSINOPHILS # 0.5 10^3/ul (0.0-0.5); EOSINOPHILS % 8.5 % (0.0-7.0); HEMATOCRIT 36.3 % (42.0-52.0); HEMOGLOBIN 11.8 g/dl (14.0-18.0); LYMPHOCYTES # 1.2 10^3/ul (0.8-2.9); LYMPHOCYTES % 19.2 % (15.0-51.0); MEAN CORPUSCULAR HEMOGLOBIN 29.9 pg (29.0-33.0); MEAN CORPUSCULAR HGB CONC 32.5 g/dl (32.0-37.0); MEAN CORPUSCULAR VOLUME 91.9 fl (82.0-101.0); MEAN PLATELET VOLUME 10.2 fl (7.4-10.4); MONOCYTE # 0.7 10^3/ul (0.3-0.9); MONOCYTES % 11.4 % (0.0-11.0); NEUTROPHIL # 3.7 10^3/ul (1.6-7.5); NEUTROPHILS % 60.2 % (39.0-77.0); PLATELET COUNT 186 10^3/UL (140-440); RED BLOOD COUNT 3.95 10^6/ul (4.70-6.10); RED CELL DISTRIBUTION WIDTH 16.6 % (11.5-14.5); UNCORRECTED WBC 6.1 10^3/ul (4.8-10.8); WHITE BLOOD COUNT 6.1 10^3/ul (4.8-10.8)
[2016-07-07 06:54] LABS: ALBUMIN 3.9 g/dl (3.3-4.9); CONDITION 1; LH ANALYZER COMMENTS 1; POTASSIUM 5.7 mmol/L (3.5-5.1)
[2016-07-07 06:56] LABS: CREATININE 5.84 mg/dl (0.61-1.24)
[2016-07-07 06:57] LABS: ALBUMIN/GLOBULIN RATIO 1.25; CALCIUM 8.3 mg/dl (8.4-10.2)
[2016-07-07] MEDS: ACCUCHECK XX SCH ×6 (07:25→19:55)
[2016-07-07] MEDS: ASPIRIN (EC) 81 MG TAB PO SCH (08:15)
[2016-07-07] MEDS: LACTOBACILLUS CHEW TAB PO SCH ×3 (08:16→21:09)
[2016-07-07] MEDS: CHOLESTYRAMINE (LIGHT) 4 GM PACKET PO SCH ×2 (08:16→21:11)
[2016-07-07] MEDS: SEVELAMER 800 MG TAB PO SCH ×3 (08:16→17:52)
[2016-07-07] MEDS: CALCIUM ACETATE 667 MG CAP PO SCH ×3 (08:16→17:53)
[2016-07-07] MEDS: PRASUGREL HYDROCHLORIDE 10 MG TABLET PO SCH (08:17)
[2016-07-07] MEDS: DOCUSATE SODIUM 100 MG CAP PO SCH (08:18)
[2016-07-07] MEDS: INSULIN ASPART [NOVOLOG] 3 ML PEN SC SCH ×3 (08:21→17:55)
[2016-07-07] MEDS: METOPROLOL (XL) 50 MG TAB PO SCH ×2 (08:22→21:10)
[2016-07-07] MEDS: ISOSORBIDE MONONITRATE(SR)60 MG TAB PO SCH (08:22)
--- NOTE | 2016-07-07 09:00 | CONS ---
Date/Time of Note Date/Time of Note DATE: 07/07/16 TIME: 08:56 Assessment/Plan Assessment/Plan Chief Complaint/Hosp Course 1. End-stage renal disease. His usual dialysis days are Thursday ; however , his potassium is high today .I will order hemodialysis for him today and tomorrow . Use his new L upper arm graft and have vascular remove his R permacath . 2. Hyperkalemia, . 3. Bilateral foot pain etiology unclear. 4. Type 1 diabetes mellitus. Problems: Consultation Date/Type/Reason Admit Date/Time Jul 04, 2016 at 16:05 Initial Consult Date 07/03/16 Type of Consultation: Nephrology Referring Provider: WILMER RODRIGUEZ MD 24 HR Interval Summary Free Text/Dictation He continues to c/o bilateral foot pain . potassium is 5.7 today . Exam/Review of Systems Vital Signs Vitals Vital Signs Date Time Temp Pulse Resp B/P Pulse Ox O2 Delivery O2 Flow Rate FiO2 07/07/16 08:24 75 07/07/16 07:55 98.0 16 149/71 97 07/03/16 12:50 Room Air Intake and Output 07/06/16 07/06/16 07/07/16 15:00 23:00 07:00 Intake Total 1050 ml 350 ml Output Total 6700 ml 300 ml Balance -5650 ml 50 ml Exam Constitutional: alert, oriented, well developed Psych: nl mood/affect Respiratory: clear to auscultation, normal air movement Cardiovascular: regular rate and rhythm Musculoskeletal: nl extremities to inspection Results Result Diagram: 07/07/16 0555 07/07/16 0555 Results 24 hrs Laboratory Tests Test 07/06/16 10:00 07/06/16 11:47 07/06/16 14:15 07/06/16 16:58 Bedside Glucose 240 H 253 H 124 121 Test 07/06/16 21:00 07/07/16 05:55 07/07/16 07:40 Bedside Glucose 146 277 H Alanine Aminotransferase (ALT/SGPT) 74 H Albumin 3.9 Albumin/Globulin Ratio 1.25 Alkaline Phosphatase 267 H Anion Gap 21 H Aspartate Amino Transf (AST/SGOT) 49 H Basophils # 0.0 Basophils % 0.7 Blood Morphology Comment Blood Urea Nitrogen 52 H Calcium Level 8.3 L Carbon Dioxide Level 25 Chloride Level 97 Creatinine 5.84 H Direct Bilirubin 0.00 Eosinophils # 0.5 Eosinophils % 8.5 H Globulin 3.10 Glucose Level 224 #H Hematocrit 36.3 L Hemoglobin 11.8 L Indirect Bilirubin 0.0 Lymphocytes # 1.2 Lymphocytes % 19.2 Mean Corpuscular Hemoglobin 29.9 Mean Corpuscular Hemoglobin Concent 32.5 Mean Corpuscular Volume 91.9 Mean Platelet Volume 10.2 Monocytes # 0.7 Monocytes % 11.4 H Neutrophils # 3.7 Neutrophils % 60.2 Nucleated Red Blood Cells # 0.0 Nucleated Red Blood Cells % 0.0 Platelet Count 186 Potassium Level 5.7 H Red Blood Count 3.95 L Red Cell Distribution Width 16.6 H Sodium Level 137 Total Bilirubin 0.0 L Total Protein 7.0 White Blood Count 6.1 Medications Medications Current Medications Aspirin (Halfprin) 81 mg DAILY PO Last administered on 07/07/16 08:15; Admin Dose 81 MG; Start 07/04/16 at 09:00 Atorvastatin Calcium (Lipitor) 80 mg QHS PO Last administered on 07/06/16 20: 53; Admin Dose 80 MG; Start 07/03/16 at 21:00 Clonidine (Catapres) 0.1 mg Q6 PO Last administered on 07/05/16 12:03; Admin Dose 0.1 MG; Start 07/03/16 at 15:00 Docusate Sodium (Colace) 100 mg BID PO Last administered on 07/06/16 08:14; Admin Dose 100 MG; Start 07/03/16 at 21:00 Isosorbide Mononitrate (Imdur) 60 mg DAILY PO Last administered on 07/04/16 08 :40; Admin Dose 60 MG; Start 07/04/16 at 09:00 Lactobacillus Acidoph/Bulgaricus (Floranex) 1 tab TID PO Last administered on 08:16; Admin Dose 1 TAB; Start 07/03/16 at 21:00 Metoprolol Succinate (Toprol Xl) 50 mg BID PO Last administered on 07/06/16 20 :54; Admin Dose 50 MG; Start 07/03/16 at 15:00 Prasugrel (Effient) 10 mg DAILY PO Last administered on 07/07/16 08:17; Admin Dose 10 MG; Start 07/04/16 at 09:00 Lorazepam (Ativan) 2 mg HS PRN PO ANXIETY; Start 07/03/16 at 21:00 Hydromorphone HCl (Dilaudid) 1 mg Q3 PRN IV PAIN Last administered on 05:55; Admin Dose 1 MG; Start 07/03/16 at 15:00 Vancomycin HCl (Vancomycin Oral Syringe) 250 mg Q6 PO Last administered on 07/07 05:55; Admin Dose 250 MG; Start 07/03/16 at 18:00 Diphenhydramine HCl (Benadryl) 50 mg Q6H PRN IV ITCHING Last administered on 05:55; Admin Dose 50 MG; Start 07/03/16 at 15:30 Miscellaneous Information 1 ea NOTE XX ; Start 07/03/16 at 18:00 Glucose (Glutose) 15 gm Q15M PRN PO DECREASED GLUCOSE; Start 07/03/16 at 18:00 Glucose (Glutose) 22.5 gm Q15M PRN PO DECREASED GLUCOSE; Start 07/03/16 at 18: 00 Dextrose (D50w Syringe) 25 ml Q15M PRN IV DECREASED GLUCOSE; Start 07/03/16 at 18:00 Dextrose (D50w Syringe) 50 ml Q15M PRN IV DECREASED GLUCOSE; Start 07/03/16 at 18:00 Glucagon (Glucagen) 1 mg Q15M PRN IM DECREASED GLUCOSE; Start 07/03/16 at 18:00 Glucose (Glutose) 15 gm Q15M PRN BUCCAL DECREASED GLUCOSE; Start 07/03/16 at 18 :00 Pantoprazole (Protonix Tab) 40 mg DAILY@06 PO Last administered on 07/07/16 05 :55; Admin Dose 40 MG; Start 07/05/16 at 06:00 Cholestyramine Resin (Questran Light) 4 gm BID PO Last administered on 08:16; Admin Dose 4 GM; Start 07/06/16 at 21:00 DONY HOWARD MD Jul 07, 2016 09:00
--- NOTE | 2016-07-07 09:51 | CONS ---
DATE OF ADMISSION: 07/04/2016 DATE OF CONSULTATION: 07/06/2016 VASCULAR SURGERY CONSULTATION Dear Doctors: Mr. Lyons is a 50-year-old gentleman known to our vascular surgery service with history of end-sta ge renal disease who was admitted to [facility] secondary to hyperkalemia. The jess arreola has a history of complicated left upper extremity AV fistula creation, as he has had a history of aneurysmal fistula that had become quite bothersome for him and he was not able to tolerate his dialysis sessions through that access. Subsequently, he underwent excision of that fistula and liga tion, and creation of a new left axillary artery to axillary vein AV graft creation with a bovine ca rotid artery. The patient has been doing well postoperatively, and his fistula is patent with adequ ate volume flow and velocities. The patient denies shortness of breath, chest pain, nausea, vomitin g, fever or chills. The patient denies left upper extremity claudication or rest pain-like symptoms . REVIEW OF SYSTEMS: A 12-point review performed; negative except as mentioned in the HPI. PAST MEDICAL HISTORY: Coronary artery disease with history of stents, end-stage renal disease, anem ia of chronic disease, type 1 diabetes, hypertension, neurogenic bladder, recurrent UTIs, prosthetic right eye, diabetic retinopathy, diabetic neuropathy, diabetic nephropathy, right rotator cuff tear . ALLERGIES: CODEINE, MORPHINE, ZITHROMAX. SURGICAL HISTORY: Multiple chest wall catheters, multiple port catheter placements, multiple left u pper extremity fistula creations, coronary stents they were done in March 2016. FAMILY HISTORY: Positive for coronary artery disease and hypertension. SOCIAL HISTORY: Denies current use of alcohol, tobacco or illicit drug use. PHYSICAL EXAMINATION GENERAL: Alert and oriented x3, no apparent distress. HEAD: Normocephalic, atraumatic. Right prosthetic eye. Mucosa moist. NECK: Supple. No carotid bruits. RESPIRATORY: Clear to auscultation bilaterally. No crackles. CARDIOVASCULAR: S1, S2 present. No murmurs. He has a left chest wall port catheter that has no er ythema or tenderness. He has a right chest wall catheter for his dialysis that is also without any erythema or erythema around it. ABDOMEN: Soft and nontender, nondistended. Bowel sounds positive. EXTREMITIES: Left upper extremity palpable radial pulse. Motor and sensory intact. Capillary refi ll 2 to 3 seconds. Surgical scars well healed. AV graft with bruit and thrill present. IMPRESSION 1. End-stage renal disease: It seems the patient has been doing well post his left upper extremity advanced ax-ax AV graft creation. From our standpoint, this graft can be used starting with 1 need le cannulation and 1 port from his chest wall to the machine. If he tolerates that well, without an y left upper extremity issues, will recommend them to continue with his fistula being used with 2-ne edle cannulation. Once he has 3 successful sessions through the AV graft, will plan to remove his r ight chest wall catheter. 2. Optimize vascular status (BP meds, diet and nutrition, exercise, sugar control and antiplatelets ) Discussed findings and plan of management with the patient, and he understands. Thank you for allowing us to partake in the care of your patient. Please call with any questions. Dictated By: JOE BLISS/SERGO Conf#: [id number] DID#: [id number]
[2016-07-07] MEDS: DIPHENHYDRAMINE 50 MG INJ IV SCH ×2 (11:50→13:01)
[2016-07-07] MEDS ORDERED: LIDOCAINE 1% (MPF) 30 ML INJ SC PRN (13:00)
[2016-07-07] MEDS: LORAZEPAM 2 MG INJ IV SCH (13:01)
--- NOTE | 2016-07-07 15:03 | CONS ---
Date/Time of Note Date/Time of Note DATE: 07/07/16 TIME: 15:02 Assessment/Plan Assessment/Plan Additional Assessment/Plan Additional Assessment/Plan IMPRESSION: 1. Renal failure for which he is on dialysis. 2. Diabetes mellitus. 3. Hypertension. 4. Bilateral foot pain. 5. Diarrhea.c.difficile negative,better on Questran Plan continue present care Questran.Pt. 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 Consultation Date/Type/Reason Admit Date/Time Jul 04, 2016 at 16:05 Initial Consult Date 07/03/16 Type of Consultation: Nephrology Referring Provider: WILMER RODRIGUEZ MD 24 HR Interval Summary Constitutional: improved, no complaints Exam/Review of Systems Vital Signs Vitals Vital Signs Date Time Temp Pulse Resp B/P Pulse Ox O2 Delivery O2 Flow Rate FiO2 07/07/16 14:50 63 07/07/16 13:20 20 07/07/16 11:57 97.6 174/84 91 07/03/16 12:50 Room Air Intake and Output 07/06/16 07/06/16 07/07/16 15:00 23:00 07:00 Intake Total 1050 ml 350 ml Output Total 6700 ml 300 ml Balance -5650 ml 50 ml Exam Constitutional: alert, oriented, well developed Psych: nl mood/affect, no complaints Head: atraumatic, normocephalic Eyes: EOMI, PERRL, nl conjunctiva, nl lids, nl sclera ENMT: nl external ears & nose, nl lips & teeth, nl nasal mucosa & septum Neck: non-tender, supple Respiratory: clear to auscultation, normal air movement Cardiovascular: nl pulses, regular rate and rhythm Gastrointestinal: nl liver, spleen, non-tender, soft Musculoskeletal: nl extremities to inspection, nl gait and stance Extremities: normal pulses 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: PERMIT SPECIALIST II-XII intact, nl mental status, nl speech, nl strength Skin: nl turgor, No rash or lesions Lymph: nl lymph nodes Results Result Diagram: 07/07/16 0555 07/07/16 0555 Results 24 hrs Laboratory Tests Test 07/06/16 16:58 07/06/16 21:00 07/07/16 05:55 07/07/16 07:40 Bedside Glucose 121 146 277 H Alanine Aminotransferase (ALT/SGPT) 74 H Albumin 3.9 Albumin/Globulin Ratio 1.25 Alkaline Phosphatase 267 H Anion Gap 21 H Aspartate Amino Transf (AST/SGOT) 49 H Basophils # 0.0 Basophils % 0.7 Blood Morphology Comment Blood Urea Nitrogen 52 H Calcium Level 8.3 L Carbon Dioxide Level 25 Chloride Level 97 Creatinine 5.84 H Direct Bilirubin 0.00 Eosinophils # 0.5 Eosinophils % 8.5 H Globulin 3.10 Glucose Level 224 #H Hematocrit 36.3 L Hemoglobin 11.8 L Indirect Bilirubin 0.0 Lymphocytes # 1.2 Lymphocytes % 19.2 Mean Corpuscular Hemoglobin 29.9 Mean Corpuscular Hemoglobin Concent 32.5 Mean Corpuscular Volume 91.9 Mean Platelet Volume 10.2 Monocytes # 0.7 Monocytes % 11.4 H Neutrophils # 3.7 Neutrophils % 60.2 Nucleated Red Blood Cells # 0.0 Nucleated Red Blood Cells % 0.0 Platelet Count 186 Potassium Level 5.7 H Red Blood Count 3.95 L Red Cell Distribution Width 16.6 H Sodium Level 137 Total Bilirubin 0.0 L Total Protein 7.0 White Blood Count 6.1 Test 07/07/16 11:40 07/07/16 13:48 Bedside Glucose 294 H 126 Medications Medications Current Medications Aspirin (Halfprin) 81 mg DAILY PO Last administered on 07/07/16 08:15; Admin Dose 81 MG; Start 07/04/16 at 09:00 Atorvastatin Calcium (Lipitor) 80 mg QHS PO Last administered on 07/06/16 20: 53; Admin Dose 80 MG; Start 07/03/16 at 21:00 Clonidine (Catapres) 0.1 mg Q6 PO Last administered on 07/07/16 11:45; Admin Dose 0.1 MG; Start 07/03/16 at 15:00 Docusate Sodium (Colace) 100 mg BID PO Last administered on 07/06/16 08:14; Admin Dose 100 MG; Start 07/03/16 at 21:00 Isosorbide Mononitrate (Imdur) 60 mg DAILY PO Last administered on 07/04/16 08 :40; Admin Dose 60 MG; Start 07/04/16 at 09:00 Lactobacillus Acidoph/Bulgaricus (Floranex) 1 tab TID PO Last administered on 11:45; Admin Dose 1 TAB; Start 07/03/16 at 21:00 Metoprolol Succinate (Toprol Xl) 50 mg BID PO Last administered on 07/06/16 20 :54; Admin Dose 50 MG; Start 07/03/16 at 15:00 Prasugrel (Effient) 10 mg DAILY PO Last administered on 07/07/16 08:17; Admin Dose 10 MG; Start 07/04/16 at 09:00 Lorazepam (Ativan) 2 mg HS PRN PO ANXIETY; Start 07/03/16 at 21:00 Hydromorphone HCl (Dilaudid) 1 mg Q3 PRN IV PAIN Last administered on 11:54; Admin Dose 1 MG; Start 07/03/16 at 15:00 Vancomycin HCl (Vancomycin Oral Syringe) 250 mg Q6 PO Last administered on 07/07 11:46; Admin Dose 250 MG; Start 07/03/16 at 18:00 Diphenhydramine HCl (Benadryl) 50 mg Q6H PRN IV ITCHING Last administered on 05:55; Admin Dose 50 MG; Start 07/03/16 at 15:30 Miscellaneous Information 1 ea NOTE XX ; Start 07/03/16 at 18:00 Glucose (Glutose) 15 gm Q15M PRN PO DECREASED GLUCOSE; Start 07/03/16 at 18:00 Glucose (Glutose) 22.5 gm Q15M PRN PO DECREASED GLUCOSE; Start 07/03/16 at 18: 00 Dextrose (D50w Syringe) 25 ml Q15M PRN IV DECREASED GLUCOSE; Start 07/03/16 at 18:00 Dextrose (D50w Syringe) 50 ml Q15M PRN IV DECREASED GLUCOSE; Start 07/03/16 at 18:00 Glucagon (Glucagen) 1 mg Q15M PRN IM DECREASED GLUCOSE; Start 07/03/16 at 18:00 Glucose (Glutose) 15 gm Q15M PRN BUCCAL DECREASED GLUCOSE; Start 07/03/16 at 18 :00 Pantoprazole (Protonix Tab) 40 mg DAILY@06 PO Last administered on 07/07/16 05 :55; Admin Dose 40 MG; Start 07/05/16 at 06:00 Cholestyramine Resin (Questran Light) 4 gm BID PO Last administered on 08:16; Admin Dose 4 GM; Start 1/22/17 at 21:00 Lidocaine (Xylocaine 1% (Mpf)) 1 ml ONCE PRN SC DIALYSIS NURSE TO GIVE; Start at 13:00; Stop 07/07/16 at 19:00 NIYAH REED MD Jul 07, 2016 15:03
--- NOTE | 2016-07-07 19:28 | PN ---
Date/Time of Note Date/Time of Note DATE: 07/07/16 TIME: 19:22 Assessment/Plan VTE Prophylaxis VTE Prophylaxis Intervention: heparin Lines/Catheters IV C[facility]ter Type (from [facility] PERMA CATH Urinary Cath still in place: No Assessment/Plan Chief Complaint/Hosp Course Assessment and plan -Diarrhea on admission, patient was recently treated treated for C. difficile colitis. Followed by Dr. Gomez in gastroenterology consultation. Continue vancomycin and Questran. -Diabetes mellitus type 1, patient has an insulin pump. Continue to monitor blood sugar. -End-stage renal disease hemodialysis dependent, Dr. Hubbard is following in nephrology consultation -Hypertension, continue Toprol and clonidine -Left upper extremities atrial venous graft, Dr. Byrnes is following in vascular surgery. Plan to DC right chest permacath after 3 consecutive successful hemodialysis via graft. -Coronary artery disease, continue Imdur and aspirin. Further recommendations based on clinical course. Plan of care discussed with Dr. Rosales. Problems: Subjective 24 Hr Interval Summary Free Text/Dictation Patient is undergoing hemodialysis, denies any nausea vomiting, noted improvement in diarrhea. Exam/Review of Systems Vital Signs Vitals Vital Signs Date Time Temp Pulse Resp B/P Pulse Ox O2 Delivery O2 Flow Rate FiO2 07/07/16 16:45 98.7 94 18 120/85 99 07/03/16 12:50 Room Air Intake and Output 07/06/16 07/06/16 07/07/16 15:00 23:00 07:00 Intake Total 1050 ml 350 ml Output Total 6700 ml 300 ml Balance -5650 ml 50 ml Exam GENERAL: Well-developed, well-nourished gentleman in no acute distress. HEENT: Head is atraumatic, normocephalic. Patient has a right prosthetic eye. Left pupil is equal, round, reactive to light and accommodation. NECK: Supple, no mass or thyromegaly. LUNGS: Clear bilaterally. HEART: Normal S1, S2. No murmurs, gallops, clicks, rubs noted. ABDOMEN: Round, soft, nondistended, nontender. Bowel sounds present. EXTREMITIES: No edema, clubbing, cyanosis. Pulses equal bilaterally 2+. The patient has bilateral upper extremity arteriovenous fistula. SKIN: There is no rash, petechiae noted. Patient has multiple tattoos with upper and lower extremities and trunk. NEUROLOGIC: Alert and oriented 3. Right chest PermCath. Results Result Diagram: 07/07/16 0555 07/07/16 0555 Results 24 hrs Laboratory Tests Test 07/06/16 21:00 07/07/16 05:55 07/07/16 07:40 07/07/16 11:40 Bedside Glucose 146 277 H 294 H Alanine Aminotransferase (ALT/SGPT) 74 H Albumin 3.9 Albumin/Globulin Ratio 1.25 Alkaline Phosphatase 267 H Anion Gap 21 H Aspartate Amino Transf (AST/SGOT) 49 H Basophils # 0.0 Basophils % 0.7 Blood Morphology Comment Blood Urea Nitrogen 52 H Calcium Level 8.3 L Carbon Dioxide Level 25 Chloride Level 97 Creatinine 5.84 H Direct Bilirubin 0.00 Eosinophils # 0.5 Eosinophils % 8.5 H Globulin 3.10 Glucose Level 224 #H Hematocrit 36.3 L Hemoglobin 11.8 L Indirect Bilirubin 0.0 Lymphocytes # 1.2 Lymphocytes % 19.2 Mean Corpuscular Hemoglobin 29.9 Mean Corpuscular Hemoglobin Concent 32.5 Mean Corpuscular Volume 91.9 Mean Platelet Volume 10.2 Monocytes # 0.7 Monocytes % 11.4 H Neutrophils # 3.7 Neutrophils % 60.2 Nucleated Red Blood Cells # 0.0 Nucleated Red Blood Cells % 0.0 Platelet Count 186 Potassium Level 5.7 H Red Blood Count 3.95 L Red Cell Distribution Width 16.6 H Sodium Level 137 Total Bilirubin 0.0 L Total Protein 7.0 White Blood Count 6.1 Test 07/07/16 13:48 07/07/16 17:42 Bedside Glucose 126 154 Medications Medications Current Medications Aspirin (Halfprin) 81 mg DAILY PO Last administered on 07/07/16 08:15; Admin Dose 81 MG; Start 07/04/16 at 09:00 Atorvastatin Calcium (Lipitor) 80 mg QHS PO Last administered on 07/06/16 20: 53; Admin Dose 80 MG; Start 07/03/16 at 21:00 Clonidine (Catapres) 0.1 mg Q6 PO Last administered on 07/07/16 11:45; Admin Dose 0.1 MG; Start 07/03/16 at 15:00 Isosorbide Mononitrate (Imdur) 60 mg DAILY PO Last administered on 07/04/16 08 :40; Admin Dose 60 MG; Start 07/04/16 at 09:00 Lactobacillus Acidoph/Bulgaricus (Floranex) 1 tab TID PO Last administered on 11:45; Admin Dose 1 TAB; Start 07/03/16 at 21:00 Metoprolol Succinate (Toprol Xl) 50 mg BID PO Last administered on 07/06/16 20 :54; Admin Dose 50 MG; Start 07/03/16 at 15:00 Prasugrel (Effient) 10 mg DAILY PO Last administered on 07/07/16 08:17; Admin Dose 10 MG; Start 07/04/16 at 09:00 Lorazepam (Ativan) 2 mg HS PRN PO ANXIETY; Start 07/03/16 at 21:00 Hydromorphone HCl (Dilaudid) 1 mg Q3 PRN IV PAIN Last administered on 17:55; Admin Dose 1 MG; Start 07/03/16 at 15:00 Vancomycin HCl (Vancomycin Oral Syringe) 250 mg Q6 PO Last administered on 07/07 17:56; Admin Dose 250 MG; Start 07/03/16 at 18:00 Diphenhydramine HCl (Benadryl) 50 mg Q6H PRN IV ITCHING Last administered on 17:54; Admin Dose 50 MG; Start 07/03/16 at 15:30 Miscellaneous Information 1 ea NOTE XX ; Start 07/03/16 at 18:00 Glucose (Glutose) 15 gm Q15M PRN PO DECREASED GLUCOSE; Start 07/03/16 at 18:00 Glucose (Glutose) 22.5 gm Q15M PRN PO DECREASED GLUCOSE; Start 07/03/16 at 18: 00 Dextrose (D50w Syringe) 25 ml Q15M PRN IV DECREASED GLUCOSE; Start 07/03/16 at 18:00 Dextrose (D50w Syringe) 50 ml Q15M PRN IV DECREASED GLUCOSE; Start 07/03/16 at 18:00 Glucagon (Glucagen) 1 mg Q15M PRN IM DECREASED GLUCOSE; Start 07/03/16 at 18:00 Glucose (Glutose) 15 gm Q15M PRN BUCCAL DECREASED GLUCOSE; Start 07/03/16 at 18 :00 Pantoprazole (Protonix Tab) 40 mg DAILY@06 PO Last administered on 07/07/16 05 :55; Admin Dose 40 MG; Start 07/05/16 at 06:00 Cholestyramine Resin (Questran Light) 4 gm BID PO Last administered on 08:16; Admin Dose 4 GM; Start 07/06/16 at 21:00 ANGELINA CASTREJON Jul 07, 2016 19:28
[2016-07-07] MEDS: ATORVASTATIN 80 MG TAB PO SCH (21:10)
[2016-07-08] VITALS (19 sets, daily range): BP systolic 109–140; BP diastolic 61–86; PULSE 81–95; RESP 16–20
[2016-07-08] MEDS: VANCOMYCIN HCL 250 MG/5ML POSYG PO SCH ×4 (00:40→17:50)
[2016-07-08] MEDS: HYDROmorphONE 1 MG/ML SYG IV PRN ×6 (02:58→17:50)
[2016-07-08] MEDS: PANTOPRAZOLE (EC) 40 MG TAB PO SCH (06:01)
[2016-07-08] MEDS: DIPHENHYDRAMINE 50 MG INJ IV PRN ×3 (06:01→17:50)
[2016-07-08] MEDS: ACCUCHECK XX SCH ×4 (07:25→13:50)
[2016-07-08 07:34] LABS: POTASSIUM 5.1 mmol/L (3.5-5.1)
[2016-07-08 07:37] LABS: CREATININE 4.86 mg/dl (0.61-1.24)
[2016-07-08 07:38] LABS: CALCIUM 8.1 mg/dl (8.4-10.2)
[2016-07-08] MEDS: LORAZEPAM 2 MG INJ IV SCH (07:41)
[2016-07-08] MEDS: DIPHENHYDRAMINE 50 MG INJ IV SCH (07:42)
[2016-07-08 07:47] LABS: BASOPHIL # 0.1 10^3/ul (0.0-0.1); BASOPHILS % 0.8 % (0.0-2.0); EOSINOPHILS # 0.5 10^3/ul (0.0-0.5); EOSINOPHILS % 8.8 % (0.0-7.0); HEMATOCRIT 31.2 % (42.0-52.0); HEMOGLOBIN 10.4 g/dl (14.0-18.0); LYMPHOCYTES # 1.3 10^3/ul (0.8-2.9); LYMPHOCYTES % 21.6 % (15.0-51.0); MEAN CORPUSCULAR HEMOGLOBIN 30.3 pg (29.0-33.0); MEAN CORPUSCULAR HGB CONC 33.3 g/dl (32.0-37.0); MEAN CORPUSCULAR VOLUME 90.9 fl (82.0-101.0); MONOCYTE # 0.8 10^3/ul (0.3-0.9); MONOCYTES % 12.5 % (0.0-11.0); NEUTROPHIL # 3.5 10^3/ul (1.6-7.5); NEUTROPHILS % 56.3 % (39.0-77.0); PLATELET COUNT 166 10^3/UL (140-440); RED BLOOD COUNT 3.43 10^6/ul (4.70-6.10); RED CELL DISTRIBUTION WIDTH 16.5 % (11.5-14.5); UNCORRECTED WBC 6.2 10^3/ul (4.8-10.8); WHITE BLOOD COUNT 6.2 10^3/ul (4.8-10.8)
[2016-07-08] MEDS: INSULIN ASPART [NOVOLOG] 3 ML PEN SC SCH ×3 (07:55→17:55)
[2016-07-08 08:02] LABS: CONDITION 1; LH ANALYZER COMMENTS 1
[2016-07-08] MEDS: ASPIRIN (EC) 81 MG TAB PO SCH (08:19)
[2016-07-08] MEDS: LACTOBACILLUS CHEW TAB PO SCH ×2 (08:19→12:06)
[2016-07-08] MEDS: CALCIUM ACETATE 667 MG CAP PO SCH ×3 (08:19→17:50)
[2016-07-08] MEDS: PRASUGREL HYDROCHLORIDE 10 MG TABLET PO SCH (08:19)
[2016-07-08] MEDS: CHOLESTYRAMINE (LIGHT) 4 GM PACKET PO SCH ×2 (08:19→08:32)
[2016-07-08] MEDS: SEVELAMER 800 MG TAB PO SCH ×3 (08:20→17:51)
[2016-07-08] MEDS: ISOSORBIDE MONONITRATE(SR)60 MG TAB PO SCH (08:20)
[2016-07-08] MEDS: METOPROLOL (XL) 50 MG TAB PO SCH (08:21)
[2016-07-08] MEDS ORDERED: LIDOCAINE 1% (MDV) 20 ML INJ ONE (13:20)
--- NOTE | 2016-07-08 13:36 | CONS ---
Date/Time of Note Date/Time of Note DATE: 07/08/16 TIME: 13:32 Assessment/Plan Assessment/Plan Chief Complaint/Hosp Course 1. End-stage renal disease. He had his routine hemodialysis treatment today. He is feeling well. He will have his right internal jugular permacath removed this afternoon by radiology and then he will be discharged home. He will follow-up for his routine hemodialysis treatments in the [facility] dialysis unit starting on 07/10/16. He will be followed by myself and my associates in the dialysis unit. 2. Hyperkalemia, his potassium is lower today at 5.1 that was predialysis. 3. Bilateral foot pain etiology unclear. 4. Type 1 diabetes mellitus. Problems: Consultation Date/Type/Reason Admit Date/Time Jul 04, 2016 at 16:05 Initial Consult Date 07/03/16 Type of Consultation: Nephrology Referring Provider: WILMER RODRIGUEZ MD 24 HR Interval Summary Free Text/Dictation This patient had his routine hemodialysis treatment today. He is feeling well at this time. He is scheduled to have his right internal jugular permacath removed by radiology this afternoon and then they are planning to discharge him to home today. Constitutional: improved, no complaints Exam/Review of Systems Vital Signs Vitals Vital Signs Date Time Temp Pulse Resp B/P Pulse Ox O2 Delivery O2 Flow Rate FiO2 07/08/16 12:15 92 18 07/08/16 12:08 98.5 128/61 96 Intake and Output 07/07/16 07/07/16 07/08/16 15:00 23:00 07:00 Intake Total 1380 ml 450 ml Output Total 2800 ml 220 ml Balance -1420 ml 230 ml Exam Constitutional: alert, oriented, well developed Psych: nl mood/affect, no complaints Respiratory: clear to auscultation, normal air movement Cardiovascular: regular rate and rhythm Musculoskeletal: nl extremities to inspection Results Result Diagram: 07/08/16 0640 07/08/16 0640 Results 24 hrs Laboratory Tests Test 07/07/16 13:48 07/07/16 17:42 07/07/16 20:55 07/08/16 06:40 Bedside Glucose 126 154 120 Anion Gap 17 H Basophils # 0.1 Basophils % 0.8 Blood Morphology Comment Blood Urea Nitrogen 51 H Calcium Level 8.1 L Carbon Dioxide Level 30 Chloride Level 94 L Creatinine 4.86 H Eosinophils # 0.5 Eosinophils % 8.8 H Glucose Level 171 Hematocrit 31.2 L Hemoglobin 10.4 L Lymphocytes # 1.3 Lymphocytes % 21.6 Mean Corpuscular Hemoglobin 30.3 Mean Corpuscular Hemoglobin Concent 33.3 Mean Corpuscular Volume 90.9 Mean Platelet Volume 10.0 Monocytes # 0.8 Monocytes % 12.5 H Neutrophils # 3.5 Neutrophils % 56.3 Nucleated Red Blood Cells # 0.0 Nucleated Red Blood Cells % 0.0 Platelet Count 166 Potassium Level 5.1 Red Blood Count 3.43 L Red Cell Distribution Width 16.5 H Sodium Level 136 White Blood Count 6.2 Test 07/08/16 08:00 07/08/16 11:57 Bedside Glucose 277 H 210 Medications Medications Current Medications Aspirin (Halfprin) 81 mg DAILY PO Last administered on 07/08/16 08:19; Admin Dose 81 MG; Start 07/04/16 at 09:00 Atorvastatin Calcium (Lipitor) 80 mg QHS PO Last administered on 07/07/16 21: 10; Admin Dose 80 MG; Start 07/03/16 at 21:00 Clonidine (Catapres) 0.1 mg Q6 PO Last administered on 07/07/16 11:45; Admin Dose 0.1 MG; Start 07/03/16 at 15:00 Isosorbide Mononitrate (Imdur) 60 mg DAILY PO Last administered on 07/04/16 08 :40; Admin Dose 60 MG; Start 07/04/16 at 09:00 Lactobacillus Acidoph/Bulgaricus (Floranex) 1 tab TID PO Last administered on 12:06; Admin Dose 1 TAB; Start 07/03/16 at 21:00 Metoprolol Succinate (Toprol Xl) 50 mg BID PO Last administered on 07/07/16 21 :10; Admin Dose 50 MG; Start 07/03/16 at 15:00 Prasugrel (Effient) 10 mg DAILY PO Last administered on 07/08/16 08:19; Admin Dose 10 MG; Start 07/04/16 at 09:00 Lorazepam (Ativan) 2 mg HS PRN PO ANXIETY Last administered on 07/08/16 00:40 ; Admin Dose 2 MG; Start 07/03/16 at 21:00 Hydromorphone HCl (Dilaudid) 1 mg Q3 PRN IV PAIN Last administered on 12:20; Admin Dose 1 MG; Start 07/03/16 at 15:00 Vancomycin HCl (Vancomycin Oral Syringe) 250 mg Q6 PO Last administered on 07/08 12:03; Admin Dose 250 MG; Start 07/03/16 at 18:00 Diphenhydramine HCl (Benadryl) 50 mg Q6H PRN IV ITCHING Last administered on 12:20; Admin Dose 50 MG; Start 07/03/16 at 15:30 Miscellaneous Information 1 ea NOTE XX ; Start 07/03/16 at 18:00 Glucose (Glutose) 15 gm Q15M PRN PO DECREASED GLUCOSE; Start 07/03/16 at 18:00 Glucose (Glutose) 22.5 gm Q15M PRN PO DECREASED GLUCOSE; Start 07/03/16 at 18: 00 Dextrose (D50w Syringe) 25 ml Q15M PRN IV DECREASED GLUCOSE; Start 07/03/16 at 18:00 Dextrose (D50w Syringe) 50 ml Q15M PRN IV DECREASED GLUCOSE; Start 07/03/16 at 18:00 Glucagon (Glucagen) 1 mg Q15M PRN IM DECREASED GLUCOSE; Start 07/03/16 at 18:00 Glucose (Glutose) 15 gm Q15M PRN BUCCAL DECREASED GLUCOSE; Start 07/03/16 at 18 :00 Pantoprazole (Protonix Tab) 40 mg DAILY@06 PO Last administered on 07/08/16 06 :01; Admin Dose 40 MG; Start 07/05/16 at 06:00 Cholestyramine Resin (Questran Light) 4 gm BID PO Last administered on 21:11; Admin Dose 4 GM; Start 07/06/16 at 21:00 DONY HOWARD MD Jul 08, 2016 13:36
--- NOTE | 2016-07-08 13:54 | CONS ---
Date/Time of Note Date/Time of Note DATE: 07/08/16 TIME: 13:52 Assessment/Plan Assessment/Plan Problems: (1) Type 1 diabetes mellitus with diabetic nephropathy Status: Chronic Comment: Patient is stable on his current regimen using his pump. He is at this time ready for discharge (2) End stage renal failure on dialysis Status: Chronic Comment: His dialysis access is being adjusted when that is completed he should be able to be able to go home with routine follow-up (3) Diarrhea Status: Acute Comment: This is most likely a combination of diabetic enteropathy combined with the usage of the stool softeners to keep from getting constipated. He is ready for discharge Qualifiers: Diarrhea type: unspecified type Qualified Code: R19.7 - Diarrhea, unspecified type Consultation Date/Type/Reason Admit Date/Time Jul 04, 2016 at 16:05 Initial Consult Date 07/03/16 Type of Consultation: Endocrinology Reason for Consultation Diabetes mellitus type 1 on a pump Referring Provider: WILMER RODRIGUEZ MD 24 HR Interval Summary Constitutional: no complaints Exam/Review of Systems Vital Signs Vitals Vital Signs Date Time Temp Pulse Resp B/P Pulse Ox O2 Delivery O2 Flow Rate FiO2 07/08/16 12:15 92 18 07/08/16 12:08 98.5 128/61 96 Intake and Output 07/07/16 07/07/16 07/08/16 15:00 23:00 07:00 Intake Total 1380 ml 450 ml Output Total 2800 ml 220 ml Balance -1420 ml 230 ml Results Result Diagram: 07/08/16 0640 07/08/16 0640 Results 24 hrs Laboratory Tests Test 07/07/16 17:42 07/07/16 20:55 07/08/16 06:40 07/08/16 08:00 Bedside Glucose 154 120 277 H Anion Gap 17 H Basophils # 0.1 Basophils % 0.8 Blood Morphology Comment Blood Urea Nitrogen 51 H Calcium Level 8.1 L Carbon Dioxide Level 30 Chloride Level 94 L Creatinine 4.86 H Eosinophils # 0.5 Eosinophils % 8.8 H Glucose Level 171 Hematocrit 31.2 L Hemoglobin 10.4 L Lymphocytes # 1.3 Lymphocytes % 21.6 Mean Corpuscular Hemoglobin 30.3 Mean Corpuscular Hemoglobin Concent 33.3 Mean Corpuscular Volume 90.9 Mean Platelet Volume 10.0 Monocytes # 0.8 Monocytes % 12.5 H Neutrophils # 3.5 Neutrophils % 56.3 Nucleated Red Blood Cells # 0.0 Nucleated Red Blood Cells % 0.0 Platelet Count 166 Potassium Level 5.1 Red Blood Count 3.43 L Red Cell Distribution Width 16.5 H Sodium Level 136 White Blood Count 6.2 Test 07/08/16 11:57 Bedside Glucose 210 Medications Medications Current Medications Aspirin (Halfprin) 81 mg DAILY PO Last administered on 07/08/16 08:19; Admin Dose 81 MG; Start 07/04/16 at 09:00 Atorvastatin Calcium (Lipitor) 80 mg QHS PO Last administered on 07/07/16 21: 10; Admin Dose 80 MG; Start 07/03/16 at 21:00 Clonidine (Catapres) 0.1 mg Q6 PO Last administered on 07/07/16 11:45; Admin Dose 0.1 MG; Start 07/03/16 at 15:00 Isosorbide Mononitrate (Imdur) 60 mg DAILY PO Last administered on 07/04/16 08 :40; Admin Dose 60 MG; Start 07/04/16 at 09:00 Lactobacillus Acidoph/Bulgaricus (Floranex) 1 tab TID PO Last administered on 12:06; Admin Dose 1 TAB; Start 07/03/16 at 21:00 Metoprolol Succinate (Toprol Xl) 50 mg BID PO Last administered on 07/07/16 21 :10; Admin Dose 50 MG; Start 07/03/16 at 15:00 Prasugrel (Effient) 10 mg DAILY PO Last administered on 07/08/16 08:19; Admin Dose 10 MG; Start 07/04/16 at 09:00 Lorazepam (Ativan) 2 mg HS PRN PO ANXIETY Last administered on 07/08/16 00:40 ; Admin Dose 2 MG; Start 07/03/16 at 21:00 Hydromorphone HCl (Dilaudid) 1 mg Q3 PRN IV PAIN Last administered on 12:20; Admin Dose 1 MG; Start 07/03/16 at 15:00 Vancomycin HCl (Vancomycin Oral Syringe) 250 mg Q6 PO Last administered on 07/08 12:03; Admin Dose 250 MG; Start 07/03/16 at 18:00 Diphenhydramine HCl (Benadryl) 50 mg Q6H PRN IV ITCHING Last administered on 12:20; Admin Dose 50 MG; Start 07/03/16 at 15:30 Miscellaneous Information 1 ea NOTE XX ; Start 07/03/16 at 18:00 Glucose (Glutose) 15 gm Q15M PRN PO DECREASED GLUCOSE; Start 07/03/16 at 18:00 Glucose (Glutose) 22.5 gm Q15M PRN PO DECREASED GLUCOSE; Start 07/03/16 at 18: 00 Dextrose (D50w Syringe) 25 ml Q15M PRN IV DECREASED GLUCOSE; Start 07/03/16 at 18:00 Dextrose (D50w Syringe) 50 ml Q15M PRN IV DECREASED GLUCOSE; Start 07/03/16 at 18:00 Glucagon (Glucagen) 1 mg Q15M PRN IM DECREASED GLUCOSE; Start 07/03/16 at 18:00 Glucose (Glutose) 15 gm Q15M PRN BUCCAL DECREASED GLUCOSE; Start 07/03/16 at 18 :00 Pantoprazole (Protonix Tab) 40 mg DAILY@06 PO Last administered on 07/08/16 06 :01; Admin Dose 40 MG; Start 07/05/16 at 06:00 Cholestyramine Resin (Questran Light) 4 gm BID PO Last administered on 21:11; Admin Dose 4 GM; Start 07/06/16 at 21:00 DEBBY BURT MD Jul 08, 2016 13:54
--- NOTE | 2016-07-08 14:40 | RADRPT ---
PROCEDURE: XR Chest. CLINICAL INDICATION: Pre and post Perma-Cath dialysis catheter removal TECHNIQUE: Single AP pre and post portable chest COMPARISON: 07/03/2016 FINDINGS: The cardiomediastinal silhouette is within normal limits. The initial chest x-ray demonstrates the r ight Perma-Cath dialysis catheter tip overlying the distal superior vena cava . A left MediPort cat heter is in stable position. Post Perma-Cath removal single view demonstrates removal of the right Perma-Cath dialysis catheter. No pneumothorax. .The lungs are clear though pleural effusion or foc al consolidation. The osseous structures and soft tissues are unremarkable. IMPRESSION: Removal of right Perma-Cath. No pneumothorax or acute intrathoracic abnormality.. RPTAT:AAJJ Physician Samson Date Time Electronically viewed and signed by Physician Samson on 07/08/2016 14:40 SACHA/
[2016-07-08] MEDS ORDERED: HEPARIN (100 UNITS/ML) 5 ML SYG CATHETER ONE (18:00)
--- NOTE | 2016-07-08 20:16 | CONS ---
Date/Time of Note Date/Time of Note DATE: 07/08/16 TIME: 20:15 Assessment/Plan Assessment/Plan Additional Assessment/Plan Additional Assessment/Plan Additional Assessment/Plan IMPRESSION: 1. Renal failure for which he is on dialysis. 2. Diabetes mellitus. 3. Hypertension. 4. Bilateral foot pain. 5. Diarrhea.c.difficile negative,better on Questran Plan continue present care Questran.Pt. 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 Consultation Date/Type/Reason Admit Date/Time Jul 04, 2016 at 16:05 Initial Consult Date 07/03/16 Type of Consultation: Endocrinology Referring Provider: WILMER RODRIGUEZ MD 24 HR Interval Summary Free Text/Dictation pt.seen in am ,no diarrhea Exam/Review of Systems Vital Signs Vitals Vital Signs Date Time Temp Pulse Resp B/P Pulse Ox O2 Delivery O2 Flow Rate FiO2 07/08/16 16:13 93 07/08/16 16:10 98.5 18 133/82 96 Intake and Output 07/07/16 07/07/16 07/08/16 15:00 23:00 07:00 Intake Total 1380 ml 450 ml Output Total 2800 ml 220 ml Balance -1420 ml 230 ml Exam Constitutional: alert, oriented, well developed Psych: nl mood/affect, no complaints Head: atraumatic, normocephalic Eyes: EOMI, PERRL, nl conjunctiva, nl lids, nl sclera ENMT: nl external ears & nose, nl lips & teeth, nl nasal mucosa & septum Neck: non-tender, supple Respiratory: clear to auscultation, normal air movement Cardiovascular: nl pulses, regular rate and rhythm Gastrointestinal: nl liver, spleen, non-tender, soft Musculoskeletal: nl extremities to inspection, nl gait and stance Extremities: normal pulses 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: [employer] II-XII intact, nl mental status, nl speech, nl strength Skin: nl turgor, No rash or lesions Lymph: nl lymph nodes Results Result Diagram: 07/08/16 0640 07/08/16 0640 Results 24 hrs Laboratory Tests Test 07/07/16 20:55 07/08/16 06:40 07/08/16 08:00 07/08/16 11:57 Bedside Glucose 120 277 H 210 Anion Gap 17 H Basophils # 0.1 Basophils % 0.8 Blood Morphology Comment Blood Urea Nitrogen 51 H Calcium Level 8.1 L Carbon Dioxide Level 30 Chloride Level 94 L Creatinine 4.86 H Eosinophils # 0.5 Eosinophils % 8.8 H Glucose Level 171 Hematocrit 31.2 L Hemoglobin 10.4 L Lymphocytes # 1.3 Lymphocytes % 21.6 Mean Corpuscular Hemoglobin 30.3 Mean Corpuscular Hemoglobin Concent 33.3 Mean Corpuscular Volume 90.9 Mean Platelet Volume 10.0 Monocytes # 0.8 Monocytes % 12.5 H Neutrophils # 3.5 Neutrophils % 56.3 Nucleated Red Blood Cells # 0.0 Nucleated Red Blood Cells % 0.0 Platelet Count 166 Potassium Level 5.1 Red Blood Count 3.43 L Red Cell Distribution Width 16.5 H Sodium Level 136 White Blood Count 6.2 Test 07/08/16 17:30 Bedside Glucose 153 NIYAH REED MD Jul 08, 2016 20:16
== END 2016-07-08 18:55 | disposition home or self-care (01) | DRG 391 ==
LOC: E/R 09:05 → INTOOBSV 12:10 → TEL 12:10 → OBSVTOIN 07-04 16:05
PROVIDERS: ADMIT Internal Medicine; ATTEND Internal Medicine
PROC: 5A1D60Z (ICD-10-PCS; principal; 2016-07-03)
PROC: 02PYX3Z Removal of Infusion Device from Great Vessel, External Approach (ICD-10-PCS; 2016-07-08)
DX: R19.7 Diarrhea, unspecified (principal); E10.10 Type 1 diabetes mellitus with ketoacidosis without coma; N17.9 Acute kidney failure, unspecified; I12.0 Hypertensive chronic kidney disease with stage 5 chronic kidney disease or end stage renal disease; N18.6 End stage renal disease; Z79.4 Long term (current) use of insulin; Z99.2 Dependence on renal dialysis; R73.9 Hyperglycemia, unspecified; F41.9 Anxiety disorder, unspecified; E87.5 Hyperkalemia; Z95.5 Presence of coronary angioplasty implant and graft; Z76.5 Malingerer [conscious simulation]; E10.40 Type 1 diabetes mellitus with diabetic neuropathy, unspecified; Z96.41 Presence of insulin pump (external) (internal); R52 Pain, unspecified; E10.21 Type 1 diabetes mellitus with diabetic nephropathy
CPT/HCPCS: 36415; 36589; 71010; 80048; 80053; 81001; 81003; 82962; 83036; 83605; 83690; 84484; 84560; 85025; 85610; 85730; 87075; 90935; 93005; 96374; 96375; G0378; J0610; J1170; J1200; J1642; J1815; J2060; J2405; J7040

== ENCOUNTER 2016-07-09 12:36 | Inpatient (IN) | payer MEDICARE, OTHER ==
[~2016-07-09] VITALS: Ht 172.7 cm; Wt 68.3 kg
[2016-07-09 13:26] LABS: BASOPHILS % 0.4 % (0.0-2.0); EOSINOPHILS # 0.3 10^3/ul (0.0-0.5); EOSINOPHILS % 3.8 % (0.0-7.0); HEMATOCRIT 33.6 % (42.0-52.0); HEMOGLOBIN 10.9 g/dl (14.0-18.0); LYMPHOCYTES # 0.8 10^3/ul (0.8-2.9); LYMPHOCYTES % 11.6 % (15.0-51.0); MEAN CORPUSCULAR HEMOGLOBIN 29.7 pg (29.0-33.0); MEAN CORPUSCULAR HGB CONC 32.6 g/dl (32.0-37.0); MEAN CORPUSCULAR VOLUME 91.2 fl (82.0-101.0); MEAN PLATELET VOLUME 9.8 fl (7.4-10.4); MONOCYTE # 0.5 10^3/ul (0.3-0.9); MONOCYTES % 7.3 % (0.0-11.0); NEUTROPHIL # 5.1 10^3/ul (1.6-7.5); NEUTROPHILS % 76.9 % (39.0-77.0); PLATELET COUNT 195 10^3/UL (140-440); RED BLOOD COUNT 3.68 10^6/ul (4.70-6.10); RED CELL DISTRIBUTION WIDTH 15.8 % (11.5-14.5); UNCORRECTED WBC 6.7 10^3/ul (4.8-10.8); WHITE BLOOD COUNT 6.7 10^3/ul (4.8-10.8)
[2016-07-09 13:28] LABS: CONDITION 1; LH ANALYZER COMMENTS 1
[2016-07-09 14:09] LABS: ALBUMIN 3.9 g/dl (3.3-4.9)
[2016-07-09 14:10] LABS: POTASSIUM 5.1 mmol/L (3.5-5.1)
[2016-07-09 14:12] LABS: ALBUMIN/GLOBULIN RATIO 1.21; BILIRUBIN,INDIRECT 0.3 mg/dl (0-1.1); BILIRUBIN,TOTAL 0.3 mg/dl (0.2-1.3); CREATININE 5.58 mg/dl (0.61-1.24); TOTAL PROTEIN 7.1 g/dl (6.1-8.1)
[2016-07-09 14:13] LABS: CALCIUM 8.9 mg/dl (8.4-10.2)
--- NOTE | 2016-07-09 14:49 | ERA ---
ER Documentation Chief Complaint Date/Time DATE: 07/09/16 TIME: 14:46 Chief Complaint DIARRHEA SINCE THIS MORNING NO BLEEDING. MILD ABDOMINAL PAIN HPI This is a 50-year-old male who presents to the emergency room for evaluation of weakness, diarrhea, and foot pain for the past 1 day. The patient was discharged from the hospital this morning for similar complaints. He returns again for similar complaints. He states that his potassium is usually always elevated. The patient does undergo dialysis. He came to the ER today for evaluation. He states that for his pain Dilaudid and Benadryl works best ROS All systems reviewed and are negative except as per history of present illness. Medications Home Meds Active Scripts [Vancomycin Oral Syringe] 50 MG/ML SOLN No Conflict Check, 125 MG PO Q6 for 10 Days Prov:ANGELINA CASTREJON 07/01/16 Lactobacillus Acidoph/Bulgaricus* (Floranex*) 1 Each Tablet, 1 TAB PO TID for 30 Days, TAB Prov:ANGELINA CASTREJON 07/01/16 Clonidine Hcl* (Clonidine Hcl*) 0.1 Mg Tab, 0.1 MG PO Q6 for 30 Days, TAB Prov:ANGELINA CASTREJON 07/01/16 Hydromorphone Hcl* (Dilaudid*) 2 Mg Tablet, 2 MG PO Q6H Y for PAIN LEVEL 6-10, # 14 TAB Prov:PEDRO BENSON 05/31/16 Prasugrel Hydrochloride* (Effient*) 10 Mg Tablet, 10 MG PO DAILY for 30 Days, TAB Prov:PEDRO BENSON 05/01/16 Isosorbide Mononitrate* (Isosorbide Mononitrate*) 60 Mg Tab.er.24h, 60 MG PO DAILY for 30 Days Prov:PEDRO BENSON 05/01/16 Reported Medications Pramipexole* (Pramipexole*) 0.25 Mg Tablet, 0.25 MG PO HS, TAB 05/15/16 Lisinopril* (Zestril*) 10 Mg Tablet, 10 MG PO DAILY, #30 TAB 05/15/16 Insulin Lispro (Humalog) 100 Unit/1 Ml Cartridge, 0 SQ PT HAS PUMP 05/15/16 Sevelamer Hcl* (Renagel*) 800 Mg Tablet, 1600 MG PO WITH MEALS, TAB 01/14/16 Calcium Acetate* (Calcium Acetate*) 667 Mg Capsule, 1334 MG PO WITH MEALS, #60 CAP 01/14/16 Aspirin* (Aspirin* EC) 81 Mg Tablet.dr, 81 MG PO DAILY, TAB 12/21/15 Lorazepam* (Ativan*) 2 Mg Tablet, 2 MG PO HS, #30 TAB 12/21/15 Atorvastatin* (Atorvastatin*) 80 Mg Tablet, 80 MG PO QHS, #30 TAB 07/15/15 Diphenhydramine Hcl* (Benadryl*) 50 Mg Cap, 50 MG PO Q6 Y for ITCHING, CAP 07/15/15 Docusate Sodium* (Docusate Sodium*) 100 Mg Capsule, 100 MG PO BID, #60 CAP 07/15/15 Metoprolol Succinate* (Toprol XL*) 50 Mg Tab.er.24h, 50 MG PO BID, TAB PT DOES NOT TAKE ON SAT 07/09/14 Allergies Allergies: Coded Allergies: adhesive (Verified Allergy, Intermediate, 05/15/16) (+)itchiness/rash azithromycin (Verified Allergy, Intermediate, RASH, 05/15/16) erythromycin base (Verified Allergy, Intermediate, CRAMPS, 05/15/16) codeine (Verified Allergy, Mild, ABD. CRAMPS, 05/15/16) morphine (Verified Allergy, Unknown, 05/15/16) PMhx/Soc History of Surgery: Yes Anesthesia Reaction: No Hx 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 Disorder: No Hx Respiratory Disorders: No Hx Cardiac Disorders: Yes (stents) Hx Psychiatric Problems: No Hx Miscellaneous Medical Probl: Yes (DM, HD) Hx Alcohol Use: No Hx Substance Use: Yes (doesn't smoke marijuana any more) Hx Tobacco Use: No Smoking Status: Former smoker Physical Exam Vitals Vital Signs Date Time Temp Pulse Resp B/P Pulse Ox O2 Delivery O2 Flow Rate FiO2 07/09/16 12:42 98.5 100 21 150/91 100 Physical Exam Const: No acute distress Head: Atraumatic Eyes: Normal Conjunctiva ENT: Dry mucous membranes normal External Ears, Nose and Mouth. Neck: Full range of motion..~ No meningismus. Resp: Clear to auscultation bilaterally Cardio: Regular rate and rhythm, no murmurs Abd: Soft, non tender, non distended. Normal bowel sounds Skin: No petechiae or rashes Back: No midline or flank tenderness Ext: No cyanosis, or edema Neur: Awake and alert Psych: Agitated Result Diagram: 07/09/16 1320 07/09/16 1320 Results 24 hrs Laboratory Tests Test 07/09/16 13:20 Alanine Aminotransferase (ALT/SGPT) 86IU/L Albumin 3.9g/dl Albumin/Globulin Ratio 1.21 Alkaline Phosphatase 293IU/L Anion Gap 20 Aspartate Amino Transf (AST/SGOT) 71IU/L Basophils # 0.010^3/ul Basophils % 0.4% Blood Morphology Comment Blood Urea Nitrogen 45mg/dl Calcium Level 8.9mg/dl Carbon Dioxide Level 22mmol/L Chloride Level 98mmol/L Creatinine 5.58mg/dl Direct Bilirubin 0.00mg/dl Eosinophils # 0.310^3/ul Eosinophils % 3.8% Globulin 3.20g/dl Glucose Level 424mg/dl Hematocrit 33.6% Hemoglobin 10.9g/dl Indirect Bilirubin 0.3mg/dl Lymphocytes # 0.810^3/ul Lymphocytes % 11.6% Mean Corpuscular Hemoglobin 29.7pg Mean Corpuscular Hemoglobin Concent 32.6g/dl Mean Corpuscular Volume 91.2fl Mean Platelet Volume 9.8fl Monocytes # 0.510^3/ul Monocytes % 7.3% Neutrophils # 5.110^3/ul Neutrophils % 76.9% Nucleated Red Blood Cells # 0.010^3/ul Nucleated Red Blood Cells % 0.0/100WBC Platelet Count 35276^3/UL Potassium Level 5.1mmol/L Red Blood Count 3.6810^6/ul Red Cell Distribution Width 15.8% Sodium Level 135mmol/L Total Bilirubin 0.3mg/dl Total Protein 7.1g/dl White Blood Count 6.710^3/ul Procedures/MDM This 50-year-old male presents to the emergency room for evaluation of multiple complaints including diarrhea, for pain, and possible hyperkalemia. This patient was recently discharged from the hospital this morning. I did obtain lab work which shows a hyperglycemia. The patient was given insulin subcutaneously. He keeps asking for Dilaudid. I told him that is not indicated for his condition. The patient was given p.o. Benadryl, 50 g of fentanyl. I talked to his primary care physician, Dr. Rosales who is okay for [facility]art[facility] Diagnosis: Primary Impression: Diarrhea with dehydration Additional Impressions: Type 1 diabetes mellitus with diabetic nephropathy Chronic renal insufficiency Normocytic anemia Condition: ÁLVARO Rhodes DO Jul 09, 2016 14:49
[2016-07-09] MEDS ORDERED: FENTAnyl 50 MCG/ML VIAL IV ONE (15:00)
[2016-07-09] MEDS ORDERED: DIPHENHYDRAMINE 25 MG CAP PO ONE (15:00)
[2016-07-09] MEDS ORDERED: ONDANSETRON 4 MG INJ IV PRN (15:00)
[2016-07-09] MEDS ORDERED: INSULIN REGULAR, HUMAN 100 UNIT/1 ML 3ML VIAL SC ONE (15:00)
[2016-07-09] MEDS ORDERED: ACETAMINOPHEN 325 MG TAB PO PRN (15:00)
[2016-07-09] MEDS: SOD CHLORIDE 0.9% 1,000 ML IV SCH ×2 (15:11→20:29)
[2016-07-09 15:42] VITALS: TEMP 98.6
[2016-07-09 16:30] VITALS: BP 135/65; PULSE 78; RESP 18
[2016-07-09] MEDS: DIPHENHYDRAMINE 50 MG INJ IV PRN ×2 (16:59→23:43)
[2016-07-09] MEDS: HYDROmorphONE 1 MG/ML SYG IV PRN ×3 (16:59→23:43)
[2016-07-09] MEDS ORDERED: HYDROmorphONE 1 MG/ML SYG IV STA (17:16)
[2016-07-09] MEDS ORDERED: DEXTROSE 50% 50 ML SYRINGE IV PRN (18:30)
[2016-07-09] MEDS ORDERED: GLUCAGON 1 MG INJ IM PRN (18:30)
[2016-07-09] MEDS ORDERED: GLUCOSE GEL 15 GRAM TUBE BUCCAL PRN (18:30)
[2016-07-09] MEDS ORDERED: GLUCOSE GEL 15 GRAM TUBE PO PRN ×2 (18:30)
[2016-07-09] MEDS ORDERED: ACCUCHECK XX SCH (19:50)
[2016-07-09 20:00] VITALS: Ht 172.7 cm; Wt 68.3 kg
--- NOTE | 2016-07-09 20:00 | HP ---
DATE OF ADMISSION: 07/09/2016 CHIEF COMPLAINT: Diarrhea this morning and abdominal cramps and generalized weakness and malaise. HISTORY OF PRESENT ILLNESS: The patient is a 50-year-old gentleman who was recently discharged. Th e patient was diagnosed with Clostridium difficile colitis and was discharged on vancomycin. The pa tient with end-stage renal disease on hemodialysis. The patient had a left upper extremity graft, w luzma is relatively new. Was able to dialyze via graft and Andrew catheter was discontinued on prev ious admission. The patient with coronary artery disease, hypertension, diabetes mellitus type 1 us ing an insulin drip at home. The patient stated that he experiences severe diarrhea this morning. Denies any vomiting or nausea. Denies any chest pain. Denies shortness of breath. However, patien t complains of severe weakness and abdominal pain. The patient is noted to have elevated glucose, B UN and creatinine, and liver enzymes. The patient was given IV fluids. The patient was given Dilau did for pain. The patient will be admitted to medical surgical floor. PAST MEDICAL HISTORY: Per HPI. 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 FAMILY HISTORY: Father of coronary artery disease. SOCIAL HISTORY: The patient lives at home. The patient denies any tobacco use, denies any illicit drug use, denies any alcohol use. ALLERGIES: 1. AZITHROMYCIN. 2. CODEINE. 3. ERYTHROMYCIN. 4. MORPHINE. 5. ADHESIVE TAPE. MEDICATIONS ON ADMISSION: 1. Oral vancomycin. 2. Florinef. 3. Clonidine. 4. Dilaudid. 5. Effient. 6. Imdur. 7. ____. 8. Lisinopril. 9. Humalog cartridge per insulin pump. 10. Renagel. 11. Calcium acetate. 12. Aspirin. 13. Ativan. 14. Atorvastatin 15. Benadryl. 16. Colace. 17. Toprol-XL. REVIEW OF SYSTEMS: A 12-point review of systems is negative unless what mentioned in the HPI. PHYSICAL ASSESSMENT: GENERAL: Well-developed, well-nourished male, currently appears pale, awake, alert. VITAL SIGNS: Temperature 98.6, pulse is 91, blood pressure is 144/84, respiratory rate 21, oxygen s aturation 100% on room air. HEENT: The patient has right eye prosthesis. Left pupil is equal, round, reactive to light and acc ommodation. Oral mucosa is pink. NECK: Supple. No cervical lymphadenopathy, no thyromegaly. CHEST: Lungs clear bilaterally. There are no rhonchi, wheezes, rales noted. CARDIOVASCULAR: Normal S1, S2. No murmurs, gallops, clicks, rubs noted. ABDOMEN: Flat, soft, nondistended. The patient has generalized tenderness to epigastric tenderness on palpation. No guarding. EXTREMITIES: No edema, clubbing, cyanosis. Left upper extremity AV graft with a palpable thrill an d audible bruit. SKIN: No rash, petechiae noted. NEUROLOGIC: The patient is awake, alert, and oriented x3. No focal deficits noted. Motor strength 5/5 in all extremities. LABORATORY DATA: On admission, CBC: White blood cells 6.7, hemoglobin 10.9, hematocrit 33.6, plate lets 195. Chemistry: Sodium is 135, potassium 5.1, chloride 98, carbon dioxide 22, anion gap 20, B UN 45, creatinine 5.58, glucose 424. ASSESSMENT AND PLAN: 1. Diarrhea with recent history of Clostridium difficile colitis. Continue patient on vancomycin a nd Questran. 2. Dehydration secondary to diarrhea with recent history of Clostridium difficile colitis. Continu e IV fluids. 3. Type 1 diabetes mellitus with diabetic nephropathy. Continue NovoLog per insulin pump. 4. End-stage renal disease, hemodialysis dependent. Dr. Hubbard is following the patient in [facility] hrology consultation. We will continue dialysis per schedule. 5. Coronary artery disease. 6. Hypertension. 7. We will continue Dilaudid p.r.n. for pain. Obtain stool for Clostridium difficile. Continue he jason for deep venous thrombosis prophylaxis and Pepcid for peptic ulcer disease prophylaxis. [facility] recommendations based on clinical course. Plan of care discussed with Dr. Rodriguez. Dictated By: ANGELINA CASTREJON VACUUM CONDITIONER OPERATOR for WILMER RODRIGUEZ MD SR/NTS Conf#: [id number] KEHINDE#: [id number]
[2016-07-09 20:28] VITALS: BP 159/94; RESP 18
[2016-07-10] VITALS (11 sets, daily range): BP systolic 149–190; BP diastolic 84–106; PULSE 74–83; RESP 16–19
[2016-07-10] MEDS: HYDROmorphONE 1 MG/ML SYG IV PRN ×8 (02:38→23:54)
[2016-07-10] MEDS: DIPHENHYDRAMINE 50 MG INJ IV PRN ×4 (05:39→20:55)
[2016-07-10 06:03] LABS: BASOPHILS % 0.5 % (0.0-2.0); EOSINOPHILS # 0.5 10^3/ul (0.0-0.5); EOSINOPHILS % 6.8 % (0.0-7.0); HEMATOCRIT 26.2 % (42.0-52.0); HEMOGLOBIN 8.8 g/dl (14.0-18.0); LYMPHOCYTES # 1.3 10^3/ul (0.8-2.9); LYMPHOCYTES % 19.5 % (15.0-51.0); MEAN CORPUSCULAR HEMOGLOBIN 30.6 pg (29.0-33.0); MEAN CORPUSCULAR HGB CONC 33.6 g/dl (32.0-37.0); MEAN CORPUSCULAR VOLUME 91.2 fl (82.0-101.0); MEAN PLATELET VOLUME 9.7 fl (7.4-10.4); MONOCYTE # 0.6 10^3/ul (0.3-0.9); MONOCYTES % 9.4 % (0.0-11.0); NEUTROPHIL # 4.3 10^3/ul (1.6-7.5); NEUTROPHILS % 63.8 % (39.0-77.0); PLATELET COUNT 173 10^3/UL (140-440); RED BLOOD COUNT 2.87 10^6/ul (4.70-6.10); RED CELL DISTRIBUTION WIDTH 16.6 % (11.5-14.5); UNCORRECTED WBC 6.8 10^3/ul (4.8-10.8); WHITE BLOOD COUNT 6.8 10^3/ul (4.8-10.8)
[2016-07-10 06:13] LABS: POTASSIUM 5.2 mmol/L (3.5-5.1)
[2016-07-10 06:15] LABS: CREATININE 5.91 mg/dl (0.61-1.24)
[2016-07-10 06:16] LABS: CALCIUM 7.5 mg/dl (8.4-10.2)
[2016-07-10 06:38] LABS: CONDITION 1; LH ANALYZER COMMENTS 1
[2016-07-10] MEDS ORDERED: DIPHENHYDRAMINE 50 MG INJ IV PRN (09:00)
[2016-07-10] MEDS ORDERED: LORAZEPAM 2 MG INJ IV PRN (09:00)
[2016-07-10] MEDS ORDERED: ONDANSETRON 4 MG INJ IV PRN (09:00)
--- NOTE | 2016-07-10 09:34 | PREOPHP ---
DATE OF ADMISSION: 07/09/2016 RENAL CONSULTATION REASON FOR CONSULTATION: End-stage renal disease. HISTORY OF PRESENT ILLNESS: This 50-year-old man who is well known to me, was readmitted yesterday morning after he came to the ER complaining of diarrhea, abdominal pain, and generalized weakness. The patient was discharged from this hospital 2 days ago after he was admitted with a bout of diarrh ea and Clostridium difficile colitis. The patient was sent home on vancomycin orally. The patient is usually dialyzed Thursday, , and Thursday. Today being is the patient's usual di alysis day, and he is due for dialysis. The patient has a long history of end-stage renal disease. He has a history of type 2 diabetes mellitus, and has renal disease due to diabetic nephropathy. T he patient was admitted through the emergency room. His laboratory tests on admission showed a decr ease in his hemoglobin to 8.8 and elevated blood sugar and elevated liver enzymes which is new. The patient also has had recent surgeries regarding his vascular access. He had a left upper arm AV fi stula that was causing pain and that was removed. He now has a left upper arm AV graft which is davina ng used for dialysis successfully. He had an internal jugular PermCath in the right internal jugula r vein which was removed 2 days ago. The patient also complains of bilateral foot pain which has be en a chronic problem. He also has some right hand swelling and pain. PAST MEDICAL HISTORY: 1. End-stage renal disease due to diabetic nephropathy. 2. Type 1 diabetes mellitus, uses an insulin pump. 3. Coronary artery disease. 4. Hypertension. 5. Anemia of chronic disease. 6. Recent episode of Clostridium difficile colitis. 7. Recurrent urinary tract infections. 8. Diabetic retinopathy. 9. Prosthetic right eye. 10. Rotator cuff tear. CURRENT MEDICATIONS: Include the followin. Atorvastatin 80 mg a day. 2. Mirapex 0.25 mg at bedtime. 3. Calcium acetate 3 times a day with meals. 4. Aspirin 81 mg a day. 5. Imdur 60 mg a day. 6. Floranex 1 tablet 3 times a day. 7. Metoprolol succinate 50 mg twice a day. 8. Effient 10 mg a day. 9. Insulin pump. 10. Dilaudid. 11. Benadryl. ALLERGIES: 1. CODEINE. 2. MORPHINE. 3. ZITHROMAX. PAST SURGICAL HISTORY: Coronary artery stent placed in the LAD 03/2016. Multiple surgeries for art eriovenous access. FAMILY HISTORY: Positive for coronary artery disease. SOCIAL HISTORY: The patient does not smoke or drink alcohol. PHYSICAL EXAMINATION: GENERAL: At this time reveals a well-developed man in no apparent distress. VITAL SIGNS: Temperature 98.5, pulse of 95, respirations 18, blood pressure 133/82, O2 saturation 9 6% on room air. HEENT: Head normocephalic. EYES: Left side is intact. Right eye is prosthetic. NOSE AND MOUTH: Normal. NECK: Supple. No neck vein distention. LUNGS: Clear to auscultation. HEART: Regular rhythm. No murmurs, gallops, or rubs. ABDOMEN: Soft, nontender. EXTREMITIES: No peripheral edema. Pedal pulses are equal bilaterally. The feet, especially the to es, are tender to touch. There is no erythema or swelling in the toes. The right hand is slightly swollen. IMPRESSION: 1. End-stage renal disease. The patient is due for hemodialysis today. 2. Recurrent diarrhea. 3. History of recent Clostridium difficile colitis. 4. Type 1 diabetes mellitus. 5. Hypertension. 6. Recent liver enzyme elevation. 7. Bilateral foot pain. PLAN: 1. Hemodialysis will be ordered for today. 2. Stool for C difficile toxin is ordered. 3. Consider starting the patient on gabapentin for chronic bilateral foot pain. 4. I will follow the patient along with you medically. Dictated By: DONY HOWARD MD, ND/SERGO Conf#: [id number] DID#: [id number]
[2016-07-10] MEDS: METOPROLOL (XL) 50 MG TAB PO SCH ×2 (10:00→22:02)
[2016-07-10] MEDS: ISOSORBIDE MONONITRATE(SR)60 MG TAB PO SCH (10:00)
[2016-07-10] MEDS: LACTOBACILLUS CHEW TAB PO SCH ×3 (10:19→22:00)
[2016-07-10] MEDS: ASPIRIN (EC) 81 MG TAB PO SCH (10:19)
[2016-07-10] MEDS: PRASUGREL HYDROCHLORIDE 10 MG TABLET PO SCH (11:49)
[2016-07-10] MEDS: CALCIUM ACETATE 667 MG CAP PO SCH ×2 (11:50→17:30)
[2016-07-10] MEDS: VANCOMYCIN HCL 250 MG/5ML POSYG PO SCH ×3 (11:50→23:54)
[2016-07-10] MEDS: SEVELAMER 800 MG TAB PO SCH ×2 (11:51→17:30)
[2016-07-10] MEDS ORDERED: VANCOMYCIN 125 MG PO SCH (12:00)
--- NOTE | 2016-07-10 13:24 | PN ---
Date/Time of Note Date/Time of Note DATE: 07/10/16 TIME: 13:13 Assessment/Plan VTE Prophylaxis VTE Prophylaxis Intervention: heparin, other Lines/Catheters IV Catheter Type (from Nrs): PORT-A -CATH Assessment/Plan Assessment/Plan 1. Diarrhea with recent history of Clostridium difficile colitis. Continue patient on vancomycin and Questran. -stool for Clostridium difficile. 2. Dehydration secondary to diarrhea with recent history of Clostridium difficile colitis. Continue IV fluids. 3. Type 1 diabetes mellitus with diabetic nephropathy. Continue NovoLog per insulin pump. - Endocrinology consult appreciated- Dr. Rob Notified. Called exchange. 4. End-stage renal disease, hemodialysis dependent. - Dr. Hubbard is following the patient in nephrology consultation. - HD today per staff 5. Coronary artery disease. 6. Hypertension. 7. Bilateral feet pain- rheumotology consult appreciated, Mack notified - message left. We will continue Dilaudid p.r.n. for pain. Continue heparin for deep venous thrombosis prophylaxis and Pepcid for peptic ulcer disease prophylaxis. Further recommendations based on clinical course. Plan of care discussed with Dr. Rosales. Subjective 24 Hr Interval Summary Constitutional: no complaints Eyes: no complaints ENT: no complaints Respiratory: no complaints Cardiovascular: no complaints Gastrointestinal: no complaints Musculoskeletal: bone/joint pain (both feet pain) Skin: no complaints Neurologic: no complaints Endocrine: no complaints Lymphatic: no complaints Psychological: nl mood/affect Immunologic: no complaints Exam/Review of Systems Vital Signs Vitals Vital Signs Date Time Temp Pulse Resp B/P Pulse Ox O2 Delivery O2 Flow Rate FiO2 07/10/16 08:00 97.4 70 19 174/84 98 07/09/16 16:30 Room Air Intake and Output 07/09/16 07/09/16 07/10/16 15:00 23:00 07:00 Intake Total 1220 ml 980 ml Balance 1220 ml 980 ml Exam Constitutional: alert, oriented, well developed Psych: nl mood/affect Head: atraumatic Eyes: EOMI, PERRL, nl sclera ENMT: nl external ears & nose Neck: non-tender Respiratory: diminished breath sounds Cardiovascular: nl pulses Gastrointestinal: non-tender, soft Genitourinary - Male: other (HD) Musculoskeletal: other Extremities: normal pulses 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: nl mental status, nl speech Skin: nl turgor Lymph: nontender Results Result Diagram: 07/10/16 0500 07/10/16 0500 Results 24 hrs Laboratory Tests Test 07/09/16 13:20 07/09/16 17:21 07/09/16 21:52 07/09/16 22:18 Alanine Aminotransferase (ALT/SGPT) 86 H Albumin 3.9 Albumin/Globulin Ratio 1.21 Alkaline Phosphatase 293 H Anion Gap 20 H Aspartate Amino Transf (AST/SGOT) 71 H Basophils # 0.0 Basophils % 0.4 Blood Morphology Comment Blood Urea Nitrogen 45 H Calcium Level 8.9 Carbon Dioxide Level 22 Chloride Level 98 Creatinine 5.58 H Direct Bilirubin 0.00 Eosinophils # 0.3 Eosinophils % 3.8 Globulin 3.20 Glucose Level 424 #*H Hematocrit 33.6 L Hemoglobin 10.9 L Indirect Bilirubin 0.3 Lymphocytes # 0.8 Lymphocytes % 11.6 L Mean Corpuscular Hemoglobin 29.7 Mean Corpuscular Hemoglobin Concent 32.6 Mean Corpuscular Volume 91.2 Mean Platelet Volume 9.8 Monocytes # 0.5 Monocytes % 7.3 Neutrophils # 5.1 Neutrophils % 76.9 Nucleated Red Blood Cells # 0.0 Nucleated Red Blood Cells % 0.0 Platelet Count 195 Potassium Level 5.1 Red Blood Count 3.68 L Red Cell Distribution Width 15.8 H Sodium Level 135 Total Bilirubin 0.3 Total Protein 7.1 White Blood Count 6.7 Bedside Glucose 262 H 68 L 66 L Test 07/09/16 23:51 07/10/16 05:00 07/10/16 07:50 07/10/16 10:28 Bedside Glucose 196 177 121 Anion Gap 16 Basophils # 0.0 Basophils % 0.5 Blood Morphology Comment Blood Urea Nitrogen 56 H Calcium Level 7.5 L Carbon Dioxide Level 22 Chloride Level 101 Creatinine 5.91 H Eosinophils # 0.5 Eosinophils % 6.8 Glucose Level 182 # Hematocrit 26.2 #L Hemoglobin 8.8 L Lymphocytes # 1.3 Lymphocytes % 19.5 Mean Corpuscular Hemoglobin 30.6 Mean Corpuscular Hemoglobin Concent 33.6 Mean Corpuscular Volume 91.2 Mean Platelet Volume 9.7 Monocytes # 0.6 Monocytes % 9.4 Neutrophils # 4.3 Neutrophils % 63.8 Nucleated Red Blood Cells # 0.0 Nucleated Red Blood Cells % 0.0 Platelet Count 173 Potassium Level 5.2 H Red Blood Count 2.87 #L Red Cell Distribution Width 16.6 H Sodium Level 134 L White Blood Count 6.8 Test 07/10/16 11:58 Bedside Glucose 143 Medications Medications Current Medications Hydromorphone HCl (Dilaudid) 1 mg Q3 PRN IV PAIN Last administered on 11:50; Admin Dose 1 MG; Start 07/09/16 at 17:00 Diphenhydramine HCl (Benadryl) 50 mg Q6H PRN IV ITCHING Last administered on 11:50; Admin Dose 50 MG; Start 07/09/16 at 17:00 Non-Formulary Medication (Non-Formulary Insulin) INSULIN PUMP see la... [id number] SC Last administered on 07/10/16 12:55; Admin Dose 5 UNIT; Start 07/09/16 at 19:45 Non-Formulary Medication (Non-Formulary Insulin) INSULIN PUMP see la... HS SC ; Start 07/09/16 at 21:00 Miscellaneous Information 1 ea NOTE XX ; Start 07/09/16 at 18:30 Glucose (Glutose) 15 gm Q15M PRN PO DECREASED GLUCOSE; Start 07/09/16 at 18:30 Glucose (Glutose) 22.5 gm Q15M PRN PO DECREASED GLUCOSE; Start 07/09/16 at 18: 30 Dextrose (D50w Syringe) 25 ml Q15M PRN IV DECREASED GLUCOSE; Start 07/09/16 at 18:30 Dextrose (D50w Syringe) 50 ml Q15M PRN IV DECREASED GLUCOSE; Start 07/09/16 at 18:30 Glucagon (Glucagen) 1 mg Q15M PRN IM DECREASED GLUCOSE; Start 07/09/16 at 18:30 Glucose (Glutose) 15 gm Q15M PRN BUCCAL DECREASED GLUCOSE; Start 07/09/16 at 18 :30 Aspirin (Halfprin) 81 mg DAILY PO Last administered on 07/10/16 10:19; Admin Dose 81 MG; Start 07/10/16 at 09:00 Atorvastatin Calcium (Lipitor) 80 mg QHS PO ; Start 07/10/16 at 21:00 Clonidine (Catapres) 0.1 mg Q6 PO ; Start 07/10/16 at 12:00 Isosorbide Mononitrate (Imdur) 60 mg DAILY PO ; Start 07/10/16 at 10:00 Lactobacillus Acidoph/Bulgaricus (Floranex) 1 tab TID PO Last administered on 10:19; Admin Dose 1 TAB; Start 07/10/16 at 09:00 Metoprolol Succinate (Toprol Xl) 50 mg BID PO ; Start 07/10/16 at 10:00 Pramipexole (Mirapex) 0.25 mg HS PO ; Start 07/10/16 at 21:00 Prasugrel (Effient) 10 mg DAILY PO Last administered on 07/10/16 11:49; Admin Dose 10 MG; Start 07/10/16 at 10:30 Acetaminophen (Tylenol Tab) 500 mg Q4H PRN PO PAIN AND OR ELEVATED TEMP; Start 07/10/16 at 09:00 Ondansetron HCl (Zofran Inj) 4 mg Q6H PRN IV NAUSEA AND/OR VOMITING; Start at 09:00 Vancomycin HCl (Vancomycin Oral Syringe) 125 mg Q6 PO Last administered on 07/10 11:50; Admin Dose 125 MG; Start 07/10/16 at 12:00 PEDRO BENSON Jul 10, 2016 13:24
--- NOTE | 2016-07-10 15:09 | CONS ---
DATE OF ADMISSION: 07/09/2016 DATE OF CONSULTATION: RHEUMATOLOGY CONSULTATION HISTORY OF PRESENT ILLNESS: The patient is a 50-year-old man with diabetes mellitus and e nd-stage renal disease, on dialysis. The patient recently had diarrhea and abdominal pain and was d iagnosed with Clostridium difficile colitis. The patient has been complaining of increased pain in both feet over the last 3 weeks. He has had this pain for some time, but over the last 3 weeks it h as been more severe and at times very severe, with possible mild puffiness at the feet. No redness or major swelling of the joints. He has had also some pain at the hands over the MCP joints and fee ls that maybe he has some mild swelling at those areas as well. He denies specific a.m. stiffness, although he feels stiff much of the time. He also has some chronic neck and low back pain. Rheumatologic review of systems was negative for recent fevers, and no history of rashes or psoriasi s. Denies recent chest pain. Mild intermittent abdominal discomfort or pain and has had recent vikash rrhea. No history of Raynaud's. No shortness of breath. No recent new visual changes. Occasional headaches. PAST MEDICAL HISTORY: 1. Diabetic nephropathy. 2. End-stage renal disease secondary to above. 3. Diabetes mellitus. The patient is on an insulin pump. 4. Hypertension. 5. Coronary artery disease. 6. Chronic anemia. 7. Recent Clostridium difficile colitis. 8. Diabetic retinopathy. 9. History of a rotator cuff tear. 10. History of a prosthetic right eye. MEDICATIONS: Include: 1. Atorvastatin. 2. Baby aspirin. 3. Imdur. 4. Metoprolol. 5. Effient. 6. Dilaudid. 7. Insulin pump. 8. Floranex. ALLERGIES: 1. ZITHROMAX. 2. CODEINE. 3. MORPHINE. PAST SURGICAL HISTORY: A history of stent placement in March of 2016, a history of arteriovenous access surgeries. FAMILY HISTORY: Unremarkable, except for coronary artery disease. SOCIAL HISTORY: The patient does not smoke, does not drink alcohol. PHYSICAL EXAMINATION: VITAL SIGNS: Afebrile, blood pressure 174/84, pulse 70, respirations 19, 98% on oxygen. GENERAL: Well-developed, well-nourished man, in no acute distress. HEENT: Without acute oral or ocular lesions, except for the right eye prosthesis. NECK: Without lymphadenopathy. LUNGS: Clear to auscultation. HEART: Regular rate and rhythm. ABDOMEN: Soft, without definite tenderness. No rebound tenderness. MUSCULOSKELETAL EXAM: Without definite synovitis, although possible mild puffiness around the MTPs and possibly the MCPs. Diffuse tenderness from the mid legs distally, particularly around the MTP j oints. No definite increased warmth at those areas. Mild tenderness over the MCP joints. NEUROLOGIC EXAM: Dysesthesias, probably in a glove and stocking distribution. ASSESSMENT: 1. Foot pain. This is likely due to peripheral neuropathy, likely from the diabetes. I cannot abso lutely rule out an inflammatory arthritis because of the asymmetry and some degree of pain at the MC P joints as well, although less likely. 2. Clostridium difficile colitis recently. 3. Diabetes mellitus type 1. 4. Hypertension. 5. Elevated liver function tests of unclear etiology. PLAN: 1. Will check laboratory studies for rheumatoid arthritis and check a uric acid level, although linwood n if the uric acid level is elevated, I doubt that this is gout. 2. Will start him on gabapentin 300 mg t.i.d. I discussed with the patient the potential side effe cts, such as drowsiness and dizziness. Thank you for having me see the patient rheumatologically. Will follow. Dictated By: ENMA NUNES/SERGO Conf#: [id number] DID#: [id number]
--- NOTE | 2016-07-10 15:36 | RADRPT ---
PROCEDURE: XR Lumbar Spine. CLINICAL INDICATION: Low back pain. TECHNIQUE: 5 views of the lumbar spine are available for review COMPARISON: None available FINDINGS: There is diffuse osteopenia. There is moderate dextroscoliosis. There is normal architecture and al ignment. No fractures or osseous lesions are identified. No subluxation is identified. The disk s paces are unremarkable. The facet joints are unremarkable. The soft tissues are unremarkable. Ther e is abdominal aortic vascular calcification. IMPRESSION: Diffuse osteopenia Moderate dextroscoliosis RPTAT: HGDB .Wong Lynn MD, Date Time Electronically viewed and signed by .Wong Lynn MD, on 07/10/2016 15:35 .B/
[2016-07-10] MEDS ORDERED: SOD CHLORIDE 0.9% 250 ML IV* ONE (16:50)
[2016-07-10] MEDS: LIDOCAINE 1% (MDV) 20 ML INJ SC PRN (17:27)
[2016-07-10] MEDS: PRAMIPEXOLE 0.25 MG TAB PO SCH (21:00)
[2016-07-10] MEDS: GABAPENTIN 300 MG CAP PO SCH (22:00)
[2016-07-10] MEDS: ATORVASTATIN 80 MG TAB PO SCH (22:01)
[2016-07-11] MEDS ORDERED: HYDROmorphONE 1 MG/ML SYG IV ONE (00:52)
[2016-07-11] MEDS: HYDROmorphONE 1 MG/ML SYG IV PRN ×8 (02:46→23:49)
[2016-07-11] MEDS: DIPHENHYDRAMINE 50 MG INJ IV PRN ×4 (03:25→23:49)
[2016-07-11] MEDS: VANCOMYCIN HCL 250 MG/5ML POSYG PO SCH ×4 (06:11→23:50)
[2016-07-11 06:32] LABS: CREATININE 4.84 mg/dl (0.61-1.24)
[2016-07-11 06:33] LABS: CALCIUM 8.7 mg/dl (8.4-10.2)
[2016-07-11 06:42] LABS: BASOPHILS % 0.8 % (0.0-2.0); EOSINOPHILS # 0.6 10^3/ul (0.0-0.5); EOSINOPHILS % 9.4 % (0.0-7.0); HEMATOCRIT 35.1 % (42.0-52.0); HEMOGLOBIN 11.6 g/dl (14.0-18.0); LYMPHOCYTES # 1.1 10^3/ul (0.8-2.9); LYMPHOCYTES % 17.6 % (15.0-51.0); MEAN CORPUSCULAR HEMOGLOBIN 30.5 pg (29.0-33.0); MEAN CORPUSCULAR HGB CONC 33.2 g/dl (32.0-37.0); MEAN CORPUSCULAR VOLUME 91.7 fl (82.0-101.0); MEAN PLATELET VOLUME 9.8 fl (7.4-10.4); MONOCYTE # 0.7 10^3/ul (0.3-0.9); MONOCYTES % 11.5 % (0.0-11.0); NEUTROPHIL # 3.6 10^3/ul (1.6-7.5); NEUTROPHILS % 60.7 % (39.0-77.0); PLATELET COUNT 175 10^3/UL (140-440); RED BLOOD COUNT 3.82 10^6/ul (4.70-6.10); RED CELL DISTRIBUTION WIDTH 17.6 % (11.5-14.5)
[2016-07-11 06:58] LABS: CONDITION 1; LH ANALYZER COMMENTS 1
--- NOTE | 2016-07-11 08:19 | CONS ---
DATE OF ADMISSION: 07/09/2016 DATE OF CONSULTATION: TYPE OF CONSULTATION: Gastroenterology. Dr. Kade Rosales and , thank you for asking me to evaluate the patient. HISTORY OF PRESENT ILLNESS: The patient is a 50-year-old gentleman with a history of diabetes jason partida, end-stage renal disease, and C. difficile colitis, who came to the hospital for profuse diarrhe a. No nausea, no vomiting. No chest pain, no shortness of breath. No fever, no chills. No GI ble eding. PAST MEDICAL HISTORY: Please refer to the old chart for details. PAST SURGICAL HISTORY: 1. Surgery for a deviated septum. 2. 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 3. Coronary artery intervention with stent placement. SOCIAL HISTORY: He lives at home. No alcohol. No tobacco. ALLERGIES: MULTIPLE MEDICATIONS, PER THE CHART. HOME MEDICATIONS: Reviewed. PHYSICAL EXAMINATION: GENERAL: Moderately obese, well nourished, not in distress. VITAL SIGNS: Stable. HEENT: Unremarkable. NECK: Supple. No thyromegaly, no lymphadenopathy. CARDIOVASCULAR: No murmur, gallop or click. LUNGS: Clear. ABDOMEN: Benign. EXTREMITIES: No pedal edema. Homans sign is negative. No clubbing, no cyanosis. CENTRAL NERVOUS SYSTEM: Grossly within normal limits. LABORATORY: WBC is 6, hematocrit is 35, BUN 39, creatinine 4.84. IMPRESSION: 1. Diarrhea. 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 The patient needs to stay on Questran. I doubt he took Questran at home, and is also not on Questran in the hospital, so will resume that med ication. 2. Diabetes mellitus. 3. Renal failure. 4. Coronary artery disease. 5. Hypertension. PLAN: Continue the present care. Will add Questran to the present regimen and retract the dose upw ards or downwards, depending on his condition. Dictated By: NIYAH CLANCY/SERGO Conf#: [id number] DID#: [id number]
[2016-07-11] MEDS: ASPIRIN (EC) 81 MG TAB PO SCH (08:22)
[2016-07-11] MEDS: SEVELAMER 800 MG TAB PO SCH ×3 (08:22→17:12)
[2016-07-11] MEDS: LACTOBACILLUS CHEW TAB PO SCH ×3 (08:22→20:48)
[2016-07-11] MEDS: GABAPENTIN 300 MG CAP PO SCH ×3 (08:22→20:48)
[2016-07-11] MEDS: CALCIUM ACETATE 667 MG CAP PO SCH ×3 (08:22→17:12)
[2016-07-11] MEDS: PRASUGREL HYDROCHLORIDE 10 MG TABLET PO SCH (08:22)
[2016-07-11] MEDS: ISOSORBIDE MONONITRATE(SR)60 MG TAB PO SCH (08:23)
[2016-07-11] MEDS: METOPROLOL (XL) 50 MG TAB PO SCH ×2 (08:23→20:49)
[2016-07-11 08:36] VITALS: BP 145/78; RESP 16
--- NOTE | 2016-07-11 09:00 | CONS ---
Date/Time of Note Date/Time of Note DATE: 07/11/16 TIME: 08:55 Assessment/Plan Assessment/Plan Chief Complaint/Hosp Course #1 end-stage renal disease, on maintenance hemodialysis Thursday. I will order dialysis for tomorrow. #2 bilateral foot pain. Etiology of this is not clear. I am able to palpate lower extremity pulses however I will order a noninvasive arterial study of the lower extremities. #3 anemia. He is receiving a 2 unit unit blood transfusion today. There is no history of blood loss. Will order labs for tomorrow. Problems: Consultation Date/Type/Reason Admit Date/Time Jul 09, 2016 at 14:45 Initial Consult Date Type of Consultation: renal 24 HR Interval Summary Free Text/Dictation He continues to complain of bilateral foot pain. Exam/Review of Systems Vital Signs Vitals Vital Signs Date Time Temp Pulse Resp B/P Pulse Ox O2 Delivery O2 Flow Rate FiO2 07/11/16 08:36 98.2 71 16 145/78 97 07/09/16 16:30 Room Air Intake and Output 07/10/16 07/10/16 07/11/16 15:00 23:00 07:00 Intake Total 2000 ml 2280 ml Output Total 51315 ml Balance -8700 ml 2280 ml Exam Constitutional: alert, oriented, well developed Psych: nl mood/affect, no complaints Respiratory: clear to auscultation, normal air movement Cardiovascular: regular rate and rhythm Gastrointestinal: soft Musculoskeletal: nl extremities to inspection Results Result Diagram: 07/11/16 0440 07/11/16 0430 Results 24 hrs Laboratory Tests Test 07/10/16 10:28 07/10/16 11:58 07/10/16 14:15 07/10/16 17:34 Bedside Glucose 121 143 135 108 Test 07/10/16 22:05 07/11/16 02:39 07/11/16 04:30 07/11/16 04:40 Bedside Glucose 210 174 Anion Gap 18 H Blood Urea Nitrogen 39 #H Calcium Level 8.7 Carbon Dioxide Level 29 Chloride Level 100 Creatinine 4.84 #H Glucose Level 152 Potassium Level 5.0 Sodium Level 142 Basophils # 0.0 Basophils % 0.8 Blood Morphology Comment Eosinophils # 0.6 H Eosinophils % 9.4 H Hematocrit 35.1 #L Hemoglobin 11.6 #L Lymphocytes # 1.1 Lymphocytes % 17.6 Mean Corpuscular Hemoglobin 30.5 Mean Corpuscular Hemoglobin Concent 33.2 Mean Corpuscular Volume 91.7 Mean Platelet Volume 9.8 Monocytes # 0.7 Monocytes % 11.5 H Neutrophils # 3.6 Neutrophils % 60.7 Nucleated Red Blood Cells # 0.0 Nucleated Red Blood Cells % 0.0 Platelet Count 175 Red Blood Count 3.82 #L Red Cell Distribution Width 17.6 H White Blood Count 6.0 Test 07/11/16 08:16 Bedside Glucose 200 Medications Medications Current Medications Hydromorphone HCl (Dilaudid) 1 mg Q3 PRN IV PAIN Last administered on 08:51; Admin Dose 1 MG; Start 07/09/16 at 17:00 Diphenhydramine HCl (Benadryl) 50 mg Q6H PRN IV ITCHING Last administered on 08:51; Admin Dose 50 MG; Start 07/09/16 at 17:00 Non-Formulary Medication (Non-Formulary Insulin) INSULIN PUMP see la... [id number] Last administered on 07/10/16 12:55; Admin Dose 5 UNIT; Start 07/09/16 at 19:45 Non-Formulary Medication (Non-Formulary Insulin) INSULIN PUMP see la... HS SC Last administered on 07/10/16 21:00; Admin Dose 3 UNIT; Start 07/09/16 at 21:00 Miscellaneous Information 1 ea NOTE XX ; Start 07/09/16 at 18:30 Glucose (Glutose) 15 gm Q15M PRN PO DECREASED GLUCOSE; Start 07/09/16 at 18:30 Glucose (Glutose) 22.5 gm Q15M PRN PO DECREASED GLUCOSE; Start 07/09/16 at 18: 30 Dextrose (D50w Syringe) 25 ml Q15M PRN IV DECREASED GLUCOSE; Start 07/09/16 at 18:30 Dextrose (D50w Syringe) 50 ml Q15M PRN IV DECREASED GLUCOSE; Start 07/09/16 at 18:30 Glucagon (Glucagen) 1 mg Q15M PRN IM DECREASED GLUCOSE; Start 07/09/16 at 18:30 Glucose (Glutose) 15 gm Q15M PRN BUCCAL DECREASED GLUCOSE; Start 07/09/16 at 18 :30 Aspirin (Halfprin) 81 mg DAILY PO Last administered on 07/10/16 10:19; Admin Dose 81 MG; Start 07/10/16 at 09:00 Atorvastatin Calcium (Lipitor) 80 mg QHS PO Last administered on 07/10/16 22: 01; Admin Dose 80 MG; Start 07/10/16 at 21:00 Clonidine (Catapres) 0.1 mg Q6 PO Last administered on 07/11/16 05:58; Admin Dose 0.1 MG; Start 07/10/16 at 12:00 Isosorbide Mononitrate (Imdur) 60 mg DAILY PO ; Start 07/10/16 at 10:00 Lactobacillus Acidoph/Bulgaricus (Floranex) 1 tab TID PO Last administered on 22:00; Admin Dose 1 TAB; Start 07/10/16 at 09:00 Metoprolol Succinate (Toprol Xl) 50 mg BID PO Last administered on 07/10/16 22 :02; Admin Dose 50 MG; Start 07/10/16 at 10:00 Pramipexole (Mirapex) 0.25 mg HS PO ; Start 07/10/16 at 21:00 Prasugrel (Effient) 10 mg DAILY PO Last administered on 07/10/16 11:49; Admin Dose 10 MG; Start 07/10/16 at 10:30 Acetaminophen (Tylenol Tab) 500 mg Q4H PRN PO PAIN AND OR ELEVATED TEMP; Start 07/10/16 at 09:00 Ondansetron HCl (Zofran Inj) 4 mg Q6H PRN IV NAUSEA AND/OR VOMITING; Start at 09:00 Vancomycin HCl (Vancomycin Oral Syringe) 125 mg Q6 PO Last administered on 07/11 06:11; Admin Dose 125 MG; Start 07/10/16 at 12:00 Gabapentin (Neurontin) 300 mg TID PO Last administered on 07/10/16 22:00; Admin Dose 300 MG; Start 07/10/16 at 21:00 Cholestyramine Resin (Questran Light) 4 gm BID PO ; Start 07/11/16 at 09:00 DONY HOWARD MD Jul 11, 2016 09:00
[2016-07-11] MEDS: CHOLESTYRAMINE (LIGHT) 4 GM PACKET PO SCH ×2 (09:38→20:48)
--- NOTE | 2016-07-11 13:16 | RADRPT ---
PROCEDURE: US bilateral lower extremity arteries. CLINICAL INDICATION: Bilateral leg pain. Claudication that interferes significantly with the yaneli ent's lifestyle. TECHNIQUE: Multiple longitudinal and transverse images of the bilateral lower extremity arteries w ere obtained with freeman scale, pulsed Doppler, and color Doppler imaging. COMPARISON: No prior studies are available for comparison. FINDINGS: Right SUPERVISOR MACHINE WORKERS:124 cm/sec PSFA:56 cm/sec MSFA:151 cm/sec DSFA:44 cm/sec POP:52 cm/sec NEIGHBORHOOD SERVICE CENTER DIRECTOR:48 cm/sec DPA:38 cm/sec Left SUPERVISOR MACHINE WORKERS:92 cm/sec PSFA:52 cm/sec MSFA:247 cm/sec DSFA:88 cm/sec POP:64 cm/sec NEIGHBORHOOD SERVICE CENTER DIRECTOR:43 cm/sec DPA:41 cm/sec The right ankle-brachial index is 1.5 and the left ankle-brachial index is 0.94. There is normal triphasic flow throughout bilaterally. However, there is a region of high velocity flow in the mid left superficial femoral artery consistent with a 75% or more stenosis. IMPRESSION: 1. High-grade stenosis in the mid left superficial femoral artery. 2. Otherwise unremarkable study. RPTAT: QQ .Alan Cordero MD, MD Date Time Electronically viewed and signed by .Alan Cordero MD, on 07/11/2016 13:16 .R/
--- NOTE | 2016-07-11 16:40 | PN ---
Date/Time of Note Date/Time of Note DATE: 07/11/16 TIME: 16:36 Assessment/Plan VTE Prophylaxis VTE Prophylaxis Intervention: SCD's Lines/Catheters IV [facility]from [facility] Port-A-Cath Assessment/Plan Chief Complaint/Hosp Course ASSESSMENT AND PLAN: 1. Diarrhea with recent history of Clostridium difficile colitis. Continue patient on vancomycin and Questran. Dr. Gomez is following in gastroenterology consultation 2. Dehydration secondary to diarrhea with recent history of Clostridium difficile colitis. Continue IV fluids. 3. Type 1 diabetes mellitus with diabetic nephropathy. Continue NovoLog per insulin pump. 4. End-stage renal disease, hemodialysis dependent. Dr. Hubbard is following the patient in nephrology consultation. We will continue dialysis per schedule. 5. Coronary artery disease. 6. Hypertension. 7. Bilateral lower extremities pain. Dr. Orosco is following and rheumatology consultation. 8. Mid left superficial artery stenosis. Dr. Craven is asked to see patient in vascular surgery consultation Continue heparin for deep venous thrombosis prophylaxis and Pepcid for peptic ulcer disease prophylaxis. Further recommendations based on clinical course. Plan of care discussed with Dr. Rosales. Problems: Subjective 24 Hr Interval Summary Free Text/Dictation Continues to have diarrhea with some improvement in frequency, pain is well controlled with Dilaudid. Exam/Review of Systems Vital Signs Vitals Vital Signs Date Time Temp Pulse Resp B/P Pulse Ox O2 Delivery O2 Flow Rate FiO2 07/11/16 08:36 98.2 71 16 145/78 97 07/09/16 16:30 Room Air Intake and Output 07/10/16 07/10/16 07/11/16 15:00 23:00 07:00 Intake Total 2000 ml 2280 ml Output Total 56164 ml Balance -8700 ml 2280 ml Exam GENERAL: Well-developed, well-nourished male, currently appears pale, awake, alert. HEENT: The patient has right eye prosthesis. Left pupil is equal, round, reactive to light and accommodation. NECK: Supple. No cervical lymphadenopathy, no thyromegaly. CHEST: Lungs clear bilaterally. There are no rhonchi, wheezes, rales noted. CARDIOVASCULAR: Normal S1, S2. No murmurs, gallops, clicks, rubs noted. ABDOMEN: Flat, soft, nondistended. The patient has generalized tenderness to epigastric tenderness on palpation. No guarding. EXTREMITIES: No edema, clubbing, cyanosis. Left upper extremity AV graft with a palpable thrill and audible bruit. SKIN: No rash, petechiae noted. NEUROLOGIC: The patient is awake, alert, and oriented x3. Results Result Diagram: 07/11/16 0440 07/11/16 0430 Results 24 hrs Laboratory Tests Test 07/10/16 17:34 07/10/16 22:05 07/11/16 02:39 07/11/16 04:30 Bedside Glucose 108 210 174 Anion Gap 18 H Blood Urea Nitrogen 39 #H Calcium Level 8.7 Carbon Dioxide Level 29 Chloride Level 100 Creatinine 4.84 #H Glucose Level 152 Potassium Level 5.0 Sodium Level 142 Test 07/11/16 04:40 07/11/16 08:16 07/11/16 11:58 Basophils # 0.0 Basophils % 0.8 Blood Morphology Comment Eosinophils # 0.6 H Eosinophils % 9.4 H Hematocrit 35.1 #L Hemoglobin 11.6 #L Lymphocytes # 1.1 Lymphocytes % 17.6 Mean Corpuscular Hemoglobin 30.5 Mean Corpuscular Hemoglobin Concent 33.2 Mean Corpuscular Volume 91.7 Mean Platelet Volume 9.8 Monocytes # 0.7 Monocytes % 11.5 H Neutrophils # 3.6 Neutrophils % 60.7 Nucleated Red Blood Cells # 0.0 Nucleated Red Blood Cells % 0.0 Platelet Count 175 Red Blood Count 3.82 #L Red Cell Distribution Width 17.6 H White Blood Count 6.0 Bedside Glucose 200 230 H Medications Medications Current Medications Hydromorphone HCl (Dilaudid) 1 mg Q3 PRN IV PAIN Last administered on 15:02; Admin Dose 1 MG; Start 07/09/16 at 17:00 Diphenhydramine HCl (Benadryl) 50 mg Q6H PRN IV ITCHING Last administered on 08:51; Admin Dose 50 MG; Start 07/09/16 at 17:00 Non-Formulary Medication (Non-Formulary Insulin) INSULIN PUMP see la... [id number] Last administered on 07/11/16 13:08; Admin Dose 5 UNIT; Start 07/09/16 at 19:45 Non-Formulary Medication (Non-Formulary Insulin) INSULIN PUMP see la... HS SC Last administered on 07/10/16 21:00; Admin Dose 3 UNIT; Start 07/09/16 at 21:00 Miscellaneous Information 1 ea NOTE XX ; Start 07/09/16 at 18:30 Glucose (Glutose) 15 gm Q15M PRN PO DECREASED GLUCOSE; Start 07/09/16 at 18:30 Glucose (Glutose) 22.5 gm Q15M PRN PO DECREASED GLUCOSE; Start 07/09/16 at 18: 30 Dextrose (D50w Syringe) 25 ml Q15M PRN IV DECREASED GLUCOSE; Start 07/09/16 at 18:30 Dextrose (D50w Syringe) 50 ml Q15M PRN IV DECREASED GLUCOSE; Start 07/09/16 at 18:30 Glucagon (Glucagen) 1 mg Q15M PRN IM DECREASED GLUCOSE; Start 07/09/16 at 18:30 Glucose (Glutose) 15 gm Q15M PRN BUCCAL DECREASED GLUCOSE; Start 07/09/16 at 18 :30 Aspirin (Halfprin) 81 mg DAILY PO Last administered on 07/11/16 08:22; Admin Dose 81 MG; Start 07/10/16 at 09:00 Atorvastatin Calcium (Lipitor) 80 mg QHS PO Last administered on 07/10/16 22: 01; Admin Dose 80 MG; Start 07/10/16 at 21:00 Clonidine (Catapres) 0.1 mg Q6 PO Last administered on 07/11/16 12:07; Admin Dose 0.1 MG; Start 07/10/16 at 12:00 Isosorbide Mononitrate (Imdur) 60 mg DAILY PO Last administered on 07/11/16 08 :23; Admin Dose 60 MG; Start 07/10/16 at 10:00 Lactobacillus Acidoph/Bulgaricus (Floranex) 1 tab TID PO Last administered on 12:05; Admin Dose 1 TAB; Start 07/10/16 at 09:00 Metoprolol Succinate (Toprol Xl) 50 mg BID PO Last administered on 07/11/16 08 :23; Admin Dose 50 MG; Start 07/10/16 at 10:00 Pramipexole (Mirapex) 0.25 mg HS PO ; Start 07/10/16 at 21:00 Prasugrel (Effient) 10 mg DAILY PO Last administered on 07/11/16 08:22; Admin Dose 10 MG; Start 07/10/16 at 10:30 Acetaminophen (Tylenol Tab) 500 mg Q4H PRN PO PAIN AND OR ELEVATED TEMP; Start 07/10/16 at 09:00 Ondansetron HCl (Zofran Inj) 4 mg Q6H PRN IV NAUSEA AND/OR VOMITING Last administered on 07/11/16 12:04; Admin Dose 4 MG; Start 07/10/16 at 09:00 Vancomycin HCl (Vancomycin Oral Syringe) 125 mg Q6 PO Last administered on 07/11 11:53; Admin Dose 125 MG; Start 07/10/16 at 12:00 Gabapentin (Neurontin) 300 mg TID PO Last administered on 07/11/16 12:04; Admin Dose 300 MG; Start 07/10/16 at 21:00 Cholestyramine Resin (Questran Light) 4 gm BID PO Last administered on 09:38; Admin Dose 4 GM; Start 07/11/16 at 09:00 ANGELINA CASTREJON Jul 11, 2016 16:40
[2016-07-11] MEDS: ATORVASTATIN 80 MG TAB PO SCH (20:47)
[2016-07-11] MEDS: PRAMIPEXOLE 0.25 MG TAB PO SCH (20:48)
[2016-07-11 21:17] VITALS: BP 120/75; RESP 16
[2016-07-12] VITALS (10 sets, daily range): BP systolic 97–158; BP diastolic 62–86; PULSE 72–86; RESP 16–18
[2016-07-12] MEDS: HYDROmorphONE 1 MG/ML SYG IV PRN ×8 (03:01→23:49)
[2016-07-12] MEDS: DIPHENHYDRAMINE 50 MG INJ IV PRN ×4 (05:43→23:49)
[2016-07-12] MEDS: VANCOMYCIN HCL 250 MG/5ML POSYG PO SCH ×4 (05:44→23:42)
[2016-07-12 06:36] LABS: BASOPHILS % 0.4 % (0.0-2.0); EOSINOPHILS # 0.7 10^3/ul (0.0-0.5); HEMATOCRIT 36.6 % (42.0-52.0); HEMOGLOBIN 12.4 g/dl (14.0-18.0); LYMPHOCYTES # 1.3 10^3/ul (0.8-2.9); LYMPHOCYTES % 17.5 % (15.0-51.0); MEAN CORPUSCULAR HEMOGLOBIN 30.4 pg (29.0-33.0); MEAN CORPUSCULAR VOLUME 89.3 fl (82.0-101.0); MEAN PLATELET VOLUME 9.8 fl (7.4-10.4); MONOCYTE # 0.7 10^3/ul (0.3-0.9); MONOCYTES % 9.1 % (0.0-11.0); NEUTROPHIL # 4.6 10^3/ul (1.6-7.5); PLATELET COUNT 170 10^3/UL (140-440); RED CELL DISTRIBUTION WIDTH 16.5 % (11.5-14.5); UNCORRECTED WBC 7.3 10^3/ul (4.8-10.8); WHITE BLOOD COUNT 7.3 10^3/ul (4.8-10.8)
[2016-07-12 06:50] LABS: ALBUMIN 3.5 g/dl (3.3-4.9)
[2016-07-12 06:51] LABS: POTASSIUM 5.4 mmol/L (3.5-5.1)
[2016-07-12 06:53] LABS: BILIRUBIN,INDIRECT 0.3 mg/dl (0-1.1); BILIRUBIN,TOTAL 0.3 mg/dl (0.2-1.3); CREATININE 6.34 mg/dl (0.61-1.24)
[2016-07-12 06:54] LABS: ALBUMIN/GLOBULIN RATIO 1.12; CALCIUM 8.5 mg/dl (8.4-10.2); TOTAL PROTEIN 6.6 g/dl (6.1-8.1)
[2016-07-12 06:55] LABS: CONDITION 1; LH ANALYZER COMMENTS 1
[2016-07-12] MEDS: METOPROLOL (XL) 50 MG TAB PO SCH ×2 (09:00→21:00)
[2016-07-12] MEDS: PRASUGREL HYDROCHLORIDE 10 MG TABLET PO SCH (09:03)
[2016-07-12] MEDS: GABAPENTIN 300 MG CAP PO SCH ×3 (09:03→20:58)
[2016-07-12] MEDS: CHOLESTYRAMINE (LIGHT) 4 GM PACKET PO SCH ×2 (09:03→20:58)
[2016-07-12] MEDS: SEVELAMER 800 MG TAB PO SCH ×3 (09:03→17:56)
[2016-07-12] MEDS: LACTOBACILLUS CHEW TAB PO SCH ×3 (09:03→20:58)
[2016-07-12] MEDS: CALCIUM ACETATE 667 MG CAP PO SCH ×3 (09:03→17:57)
[2016-07-12] MEDS: ISOSORBIDE MONONITRATE(SR)60 MG TAB PO SCH (09:03)
[2016-07-12] MEDS: ASPIRIN (EC) 81 MG TAB PO SCH (09:03)
[2016-07-12] MEDS: LORAZEPAM 2 MG INJ IV SCH (09:14)
--- NOTE | 2016-07-12 10:07 | PN ---
Date/Time of Note Date/Time of Note DATE: 07/12/16 TIME: 10:06 Assessment/Plan VTE Prophylaxis VTE Prophylaxis Intervention: heparin, other Lines/Catheters IV Catheter Type (from [facility]): PORT-A-CATH Assessment/Plan Assessment/Plan 1. Diarrhea with recent history of Clostridium difficile colitis. Continue patient on vancomycin and Questran. -stool for Clostridium difficile. 2. Dehydration secondary to diarrhea with recent history of Clostridium difficile colitis. Continue IV fluids. 3. Type 1 diabetes mellitus with diabetic nephropathy. Continue NovoLog per insulin pump. - Endocrinology consult appreciated- per Dr. Rob 4. End-stage renal disease, hemodialysis dependent. - Dr. Hubbard is following the patient in nephrology consultation. - HD today per staff 5. Coronary artery disease. 6. Hypertension. 7. Bilateral lower extremities pain. Dr. Orosco is following and rheumatology consultation. 8. Mid left superficial artery stenosis. - per Dr. Craven is asked to see patient in vascular surgery consultation - Plan CT angiogram today. 9. Hyperkalemia - Getting HD now. We will continue Dilaudid p.r.n. for pain. Continue heparin for deep venous thrombosis prophylaxis and Pepcid for peptic ulcer disease prophylaxis. Further recommendations based on clinical course. Plan of care discussed with Dr. Rosales. Subjective 24 Hr Interval Summary Eyes: no complaints ENT: no complaints Respiratory: no complaints Cardiovascular: no complaints Gastrointestinal: no complaints Genitourinary: no complaints Musculoskeletal: back pain Skin: no complaints Neurologic: no complaints Endocrine: no complaints Lymphatic: no complaints Exam/Review of Systems Vital Signs Vitals Vital Signs Date Time Temp Pulse Resp B/P Pulse Ox O2 Delivery O2 Flow Rate FiO2 07/12/16 08:06 98.4 67 18 143/78 97 07/09/16 16:30 Room Air Intake and Output 07/11/16 07/11/16 07/12/16 15:00 23:00 07:00 Intake Total 1020 ml 600 ml Output Total 200 ml 800 ml Balance 820 ml -200 ml Exam Constitutional: alert, oriented, well developed Psych: nl mood/affect Head: atraumatic Eyes: EOMI, PERRL, nl sclera ENMT: nl external ears & nose Respiratory: clear to auscultation Cardiovascular: nl pulses Gastrointestinal: non-tender, soft Musculoskeletal: nl extremities to inspection, other Extremities: normal pulses 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: nl mental status, nl speech Skin: nl turgor Lymph: nontender Results Result Diagram: 07/12/16 0507/12/16 05 Results 24 hrs Laboratory Tests Test 07/11/16 11:58 07/11/16 17:10 07/11/16 19:48 07/11/16 23:52 Bedside Glucose 230 H 74 96 152 Test 07/12/16 03:03 07/12/16 05:26 07/12/16 07:56 Bedside Glucose 142 162 Alanine Aminotransferase (ALT/SGPT) 86 H Albumin 3.5 Albumin/Globulin Ratio 1.12 Alkaline Phosphatase 270 H Anion Gap 20 H Aspartate Amino Transf (AST/SGOT) 52 H Basophils # 0.0 Basophils % 0.4 Blood Morphology Comment Blood Urea Nitrogen 60 H Calcium Level 8.5 Carbon Dioxide Level 23 Chloride Level 99 Creatinine 6.34 H Direct Bilirubin 0.00 Eosinophils # 0.7 H Eosinophils % 10.0 H Globulin 3.10 Glucose Level 132 Hematocrit 36.6 L Hemoglobin 12.4 L Indirect Bilirubin 0.3 Lymphocytes # 1.3 Lymphocytes % 17.5 Mean Corpuscular Hemoglobin 30.4 Mean Corpuscular Hemoglobin Concent 34.0 Mean Corpuscular Volume 89.3 Mean Platelet Volume 9.8 Monocytes # 0.7 Monocytes % 9.1 Neutrophils # 4.6 Neutrophils % 63.0 Nucleated Red Blood Cells # 0.0 Nucleated Red Blood Cells % 0.0 Platelet Count 170 Potassium Level 5.4 H Red Blood Count 4.10 L Red Cell Distribution Width 16.5 H Sodium Level 137 Total Bilirubin 0.3 Total Protein 6.6 White Blood Count 7.3 # Medications Medications Current Medications Hydromorphone HCl (Dilaudid) 1 mg Q3 PRN IV PAIN Last administered on 09:02; Admin Dose 1 MG; Start 07/09/16 at 17:00 Diphenhydramine HCl (Benadryl) 50 mg Q6H PRN IV ITCHING Last administered on 05:43; Admin Dose 50 MG; Start 07/09/16 at 17:00 Non-Formulary Medication (Non-Formulary Insulin) INSULIN PUMP see la... [id number] Last administered on 07/12/16 08:00; Admin Dose 1 UNIT; Start 07/09/16 at 19:45 Non-Formulary Medication (Non-Formulary Insulin) INSULIN PUMP see la... HS SC Last administered on 07/11/16 21:00; Admin Dose 2 UNIT; Start 07/09/16 at 21:00 Miscellaneous Information 1 ea NOTE XX ; Start 07/09/16 at 18:30 Glucose (Glutose) 15 gm Q15M PRN PO DECREASED GLUCOSE; Start 07/09/16 at 18:30 Glucose (Glutose) 22.5 gm Q15M PRN PO DECREASED GLUCOSE; Start 07/09/16 at 18: 30 Dextrose (D50w Syringe) 25 ml Q15M PRN IV DECREASED GLUCOSE; Start 07/09/16 at 18:30 Dextrose (D50w Syringe) 50 ml Q15M PRN IV DECREASED GLUCOSE; Start 07/09/16 at 18:30 Glucagon (Glucagen) 1 mg Q15M PRN IM DECREASED GLUCOSE; Start 07/09/16 at 18:30 Glucose (Glutose) 15 gm Q15M PRN BUCCAL DECREASED GLUCOSE; Start 07/09/16 at 18 :30 Aspirin (Halfprin) 81 mg DAILY PO Last administered on 07/12/16 09:03; Admin Dose 81 MG; Start 07/10/16 at 09:00 Atorvastatin Calcium (Lipitor) 80 mg QHS PO Last administered on 07/11/16 20: 47; Admin Dose 80 MG; Start 07/10/16 at 21:00 Clonidine (Catapres) 0.1 mg Q6 PO Last administered on 07/12/16 05:50; Admin Dose 0.1 MG; Start 07/10/16 at 12:00 Isosorbide Mononitrate (Imdur) 60 mg DAILY PO Last administered on 07/12/16 09 :03; Admin Dose 60 MG; Start 07/10/16 at 10:00 Lactobacillus Acidoph/Bulgaricus (Floranex) 1 tab TID PO Last administered on 09:03; Admin Dose 1 TAB; Start 07/10/16 at 09:00 Metoprolol Succinate (Toprol Xl) 50 mg BID PO Last administered on 07/11/16 20 :49; Admin Dose 50 MG; Start 07/10/16 at 10:00 Pramipexole (Mirapex) 0.25 mg HS PO ; Start 07/10/16 at 21:00 Prasugrel (Effient) 10 mg DAILY PO Last administered on 07/12/16 09:03; Admin Dose 10 MG; Start 07/10/16 at 10:30 Acetaminophen (Tylenol Tab) 500 mg Q4H PRN PO PAIN AND OR ELEVATED TEMP; Start 07/10/16 at 09:00 Ondansetron HCl (Zofran Inj) 4 mg Q6H PRN IV NAUSEA AND/OR VOMITING Last administered on 07/11/16 12:04; Admin Dose 4 MG; Start 07/10/16 at 09:00 Vancomycin HCl (Vancomycin Oral Syringe) 125 mg Q6 PO Last administered on 07/12 05:44; Admin Dose 125 MG; Start 07/10/16 at 12:00 Gabapentin (Neurontin) 300 mg TID PO Last administered on 07/12/16 09:03; Admin Dose 300 MG; Start 07/10/16 at 21:00 Cholestyramine Resin (Questran Light) 4 gm BID PO Last administered on 09:03; Admin Dose 4 GM; Start 07/11/16 at 09:00 Procedures Procedures PROCEDURE: US bilateral lower extremity arteries. CLINICAL INDICATION: Bilateral leg pain. Claudication that interferes significantly with the patient's lifestyle. TECHNIQUE: Multiple longitudinal and transverse images of the bilateral lower extremity arteries were obtained with freeman scale, pulsed Doppler, and color Doppler imaging. COMPARISON: No prior studies are available for comparison. FINDINGS: Right OVEN DAUBER: 124 cm/sec PSFA: 56 cm/sec MSFA: 151 cm/sec DSFA: 44 cm/sec POP: 52 cm/sec INTERNET CAFE MANAGER: 48 cm/sec DPA: 38 cm/sec Left OVEN DAUBER: 92 cm/sec PSFA: 52 cm/sec MSFA: 247 cm/sec DSFA: 88 cm/sec POP: 64 cm/sec INTERNET CAFE MANAGER: 43 cm/sec DPA: 41 cm/sec The right ankle-brachial index is 1.5 and the left ankle-brachial index is 0.94. There is normal triphasic flow throughout bilaterally. However, there is a region of high velocity flow in the mid left superficial femoral artery consistent with a 75% or more stenosis. IMPRESSION: 1. High-grade stenosis in the mid left superficial femoral artery. 2. Otherwise unremarkable study. PEDRO BENSON Jul 12, 2016 10:07
--- NOTE | 2016-07-12 10:11 | PN ---
Date/Time of Note Date/Time of Note DATE: 07/12/16 TIME: 10:07 Assessment/Plan VTE Prophylaxis VTE Prophylaxis Intervention: heparin Lines/Catheters IV C[facility]ter Type (from [facility] PORT-A-CATH Assessment/Plan Assessment/Plan 1. Diarrhea with recent history of Clostridium difficile colitis. Continue patient on vancomycin and Questran. -stool for Clostridium difficile. 2. Dehydration secondary to diarrhea with recent history of Clostridium difficile colitis. Continue IV fluids. 3. Type 1 diabetes mellitus with diabetic nephropathy. Continue NovoLog per insulin pump. - Endocrinology consult appreciated- per Dr. Rob 4. End-stage renal disease, hemodialysis dependent. - Dr. Hubbard is following the patient in nephrology consultation. - HD today per staff 5. Coronary artery disease. 6. Hypertension. 7. Bilateral lower extremities pain. Dr. Orosco is following and rheumatology consultation. 8. Mid left superficial artery stenosis. - per Dr. Craven is asked to see patient in vascular surgery consultation - Plan CT angiogram today. 9. Hyperkalemia - Getting HD now. We will continue Dilaudid p.r.n. for pain. Continue heparin for deep venous thrombosis prophylaxis and Pepcid for peptic ulcer disease prophylaxis. Further recommendations based on clinical course. Plan of care discussed with Dr. Rosales. Subjective 24 Hr Interval Summary Eyes: no complaints ENT: no complaints Respiratory: no complaints Cardiovascular: no complaints Gastrointestinal: no complaints Genitourinary: other Musculoskeletal: other (c/o BLE) Skin: no complaints Neurologic: no complaints Endocrine: no complaints Lymphatic: no complaints Psychological: no complaints Exam/Review of Systems Vital Signs Vitals Vital Signs Date Time Temp Pulse Resp B/P Pulse Ox O2 Delivery O2 Flow Rate FiO2 07/12/16 08:06 98.4 67 18 143/78 97 07/09/16 16:30 Room Air Intake and Output 07/11/16 07/11/16 07/12/16 15:00 23:00 07:00 Intake Total 1020 ml 600 ml Output Total 200 ml 800 ml Balance 820 ml -200 ml Exam Constitutional: alert, oriented, other Psych: nl mood/affect Head: atraumatic Eyes: EOMI, PERRL, nl sclera ENMT: nl external ears & nose Neck: non-tender Respiratory: clear to auscultation Cardiovascular: nl pulses Gastrointestinal: non-tender, soft Musculoskeletal: other Extremities: normal pulses 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: nl mental status, nl speech Skin: nl turgor Lymph: nontender Results Result Diagram: 07/12/1652507/12/16 05 Results 24 hrs Laboratory Tests Test 07/11/16 11:58 07/11/16 17:10 07/11/16 19:48 07/11/16 23:52 Bedside Glucose 230 H 74 96 152 Test 07/12/16 03:03 07/12/16 05:26 07/12/16 07:56 Bedside Glucose 142 162 Alanine Aminotransferase (ALT/SGPT) 86 H Albumin 3.5 Albumin/Globulin Ratio 1.12 Alkaline Phosphatase 270 H Anion Gap 20 H Aspartate Amino Transf (AST/SGOT) 52 H Basophils # 0.0 Basophils % 0.4 Blood Morphology Comment Blood Urea Nitrogen 60 H Calcium Level 8.5 Carbon Dioxide Level 23 Chloride Level 99 Creatinine 6.34 H Direct Bilirubin 0.00 Eosinophils # 0.7 H Eosinophils % 10.0 H Globulin 3.10 Glucose Level 132 Hematocrit 36.6 L Hemoglobin 12.4 L Indirect Bilirubin 0.3 Lymphocytes # 1.3 Lymphocytes % 17.5 Mean Corpuscular Hemoglobin 30.4 Mean Corpuscular Hemoglobin Concent 34.0 Mean Corpuscular Volume 89.3 Mean Platelet Volume 9.8 Monocytes # 0.7 Monocytes % 9.1 Neutrophils # 4.6 Neutrophils % 63.0 Nucleated Red Blood Cells # 0.0 Nucleated Red Blood Cells % 0.0 Platelet Count 170 Potassium Level 5.4 H Red Blood Count 4.10 L Red Cell Distribution Width 16.5 H Sodium Level 137 Total Bilirubin 0.3 Total Protein 6.6 White Blood Count 7.3 # Medications Medications Current Medications Hydromorphone HCl (Dilaudid) 1 mg Q3 PRN IV PAIN Last administered on 09:02; Admin Dose 1 MG; Start 07/09/16 at 17:00 Diphenhydramine HCl (Benadryl) 50 mg Q6H PRN IV ITCHING Last administered on 05:43; Admin Dose 50 MG; Start 07/09/16 at 17:00 Non-Formulary Medication (Non-Formulary Insulin) INSULIN PUMP see la... [id number] Last administered on 07/12/16 08:00; Admin Dose 1 UNIT; Start 07/09/16 at 19:45 Non-Formulary Medication (Non-Formulary Insulin) INSULIN PUMP see la... HS SC Last administered on 07/11/16 21:00; Admin Dose 2 UNIT; Start 07/09/16 at 21:00 Miscellaneous Information 1 ea NOTE XX ; Start 07/09/16 at 18:30 Glucose (Glutose) 15 gm Q15M PRN PO DECREASED GLUCOSE; Start 07/09/16 at 18:30 Glucose (Glutose) 22.5 gm Q15M PRN PO DECREASED GLUCOSE; Start 07/09/16 at 18: 30 Dextrose (D50w Syringe) 25 ml Q15M PRN IV DECREASED GLUCOSE; Start 07/09/16 at 18:30 Dextrose (D50w Syringe) 50 ml Q15M PRN IV DECREASED GLUCOSE; Start 07/09/16 at 18:30 Glucagon (Glucagen) 1 mg Q15M PRN IM DECREASED GLUCOSE; Start 07/09/16 at 18:30 Glucose (Glutose) 15 gm Q15M PRN BUCCAL DECREASED GLUCOSE; Start 07/09/16 at 18 :30 Aspirin (Halfprin) 81 mg DAILY PO Last administered on 07/12/16 09:03; Admin Dose 81 MG; Start 07/10/16 at 09:00 Atorvastatin Calcium (Lipitor) 80 mg QHS PO Last administered on 07/11/16 20: 47; Admin Dose 80 MG; Start 07/10/16 at 21:00 Clonidine (Catapres) 0.1 mg Q6 PO Last administered on 07/12/16 05:50; Admin Dose 0.1 MG; Start 07/10/16 at 12:00 Isosorbide Mononitrate (Imdur) 60 mg DAILY PO Last administered on 07/12/16 09 :03; Admin Dose 60 MG; Start 07/10/16 at 10:00 Lactobacillus Acidoph/Bulgaricus (Floranex) 1 tab TID PO Last administered on 09:03; Admin Dose 1 TAB; Start 07/10/16 at 09:00 Metoprolol Succinate (Toprol Xl) 50 mg BID PO Last administered on 07/11/16 20 :49; Admin Dose 50 MG; Start 07/10/16 at 10:00 Pramipexole (Mirapex) 0.25 mg HS PO ; Start 07/10/16 at 21:00 Prasugrel (Effient) 10 mg DAILY PO Last administered on 07/12/16 09:03; Admin Dose 10 MG; Start 07/10/16 at 10:30 Acetaminophen (Tylenol Tab) 500 mg Q4H PRN PO PAIN AND OR ELEVATED TEMP; Start 07/10/16 at 09:00 Ondansetron HCl (Zofran Inj) 4 mg Q6H PRN IV NAUSEA AND/OR VOMITING Last administered on 07/11/16 12:04; Admin Dose 4 MG; Start 07/10/16 at 09:00 Vancomycin HCl (Vancomycin Oral Syringe) 125 mg Q6 PO Last administered on 07/12 05:44; Admin Dose 125 MG; Start 07/10/16 at 12:00 Gabapentin (Neurontin) 300 mg TID PO Last administered on 07/12/16 09:03; Admin Dose 300 MG; Start 07/10/16 at 21:00 Cholestyramine Resin (Questran Light) 4 gm BID PO Last administered on 09:03; Admin Dose 4 GM; Start 07/11/16 at 09:00 PEDRO BENSON Jul 12, 2016 10:11
--- NOTE | 2016-07-12 11:09 | CONS ---
Date/Time of Note Date/Time of Note DATE: 07/12/16 TIME: 11:06 Assessment/Plan Assessment/Plan Additional Assessment/Plan * bilaretal leg pain: ? neuropathy/ radiculopathy. high grade stenosis noted left femoral artery. will need vascular eval * ESRD: on hd 4x/week. next hd thursday/ cyrrently on hd * anemia: stable post prbc * iddm: on insulin * htn: stable Consultation Date/Type/Reason Admit Date/Time Jul 11, 2016 at 12:19 Initial Consult Date Type of Consultation: renal 24 HR Interval Summary Free Text/Dictation resting comfortably. currently on hd and tolerating well Exam/Review of Systems Vital Signs Vitals Vital Signs Date Time Temp Pulse Resp B/P Pulse Ox O2 Delivery O2 Flow Rate FiO2 07/12/16 08:06 98.4 67 18 143/78 97 07/09/16 16:30 Room Air Intake and Output 07/11/16 07/11/16 07/12/16 15:00 23:00 07:00 Intake Total 1020 ml 600 ml Output Total 200 ml 800 ml Balance 820 ml -200 ml Exam Constitutional: alert, oriented, well developed Psych: no complaints Head: atraumatic, normocephalic ENMT: nl external ears & nose Neck: non-tender, supple Respiratory: clear to auscultation, normal air movement Cardiovascular: edema, nl pulses, regular rate and rhythm Gastrointestinal: non-tender, soft Results Result Diagram: 07/12/16 0526 07/12/16 0526 Results 24 hrs Laboratory Tests Test 07/11/16 11:58 07/11/16 17:10 07/11/16 19:48 07/11/16 23:52 Bedside Glucose 230 H 74 96 152 Test 07/12/16 03:03 07/12/16 05:26 07/12/16 07:56 Bedside Glucose 142 162 Alanine Aminotransferase (ALT/SGPT) 86 H Albumin 3.5 Albumin/Globulin Ratio 1.12 Alkaline Phosphatase 270 H Anion Gap 20 H Aspartate Amino Transf (AST/SGOT) 52 H Basophils # 0.0 Basophils % 0.4 Blood Morphology Comment Blood Urea Nitrogen 60 H Calcium Level 8.5 Carbon Dioxide Level 23 Chloride Level 99 Creatinine 6.34 H Direct Bilirubin 0.00 Eosinophils # 0.7 H Eosinophils % 10.0 H Globulin 3.10 Glucose Level 132 Hematocrit 36.6 L Hemoglobin 12.4 L Indirect Bilirubin 0.3 Lymphocytes # 1.3 Lymphocytes % 17.5 Mean Corpuscular Hemoglobin 30.4 Mean Corpuscular Hemoglobin Concent 34.0 Mean Corpuscular Volume 89.3 Mean Platelet Volume 9.8 Monocytes # 0.7 Monocytes % 9.1 Neutrophils # 4.6 Neutrophils % 63.0 Nucleated Red Blood Cells # 0.0 Nucleated Red Blood Cells % 0.0 Platelet Count 170 Potassium Level 5.4 H Red Blood Count 4.10 L Red Cell Distribution Width 16.5 H Sodium Level 137 Total Bilirubin 0.3 Total Protein 6.6 White Blood Count 7.3 # Medications Medications Current Medications Hydromorphone HCl (Dilaudid) 1 mg Q3 PRN IV PAIN Last administered on 09:02; Admin Dose 1 MG; Start 07/09/16 at 17:00 Diphenhydramine HCl (Benadryl) 50 mg Q6H PRN IV ITCHING Last administered on 05:43; Admin Dose 50 MG; Start 07/09/16 at 17:00 Non-Formulary Medication (Non-Formulary Insulin) INSULIN PUMP see la... [id number] Last administered on 07/12/16 08:00; Admin Dose 1 UNIT; Start 07/09/16 at 19:45 Non-Formulary Medication (Non-Formulary Insulin) INSULIN PUMP see la... HS SC Last administered on 07/11/16 21:00; Admin Dose 2 UNIT; Start 07/09/16 at 21:00 Miscellaneous Information 1 ea NOTE XX ; Start 07/09/16 at 18:30 Glucose (Glutose) 15 gm Q15M PRN PO DECREASED GLUCOSE; Start 07/09/16 at 18:30 Glucose (Glutose) 22.5 gm Q15M PRN PO DECREASED GLUCOSE; Start 07/09/16 at 18: 30 Dextrose (D50w Syringe) 25 ml Q15M PRN IV DECREASED GLUCOSE; Start 07/09/16 at 18:30 Dextrose (D50w Syringe) 50 ml Q15M PRN IV DECREASED GLUCOSE; Start 07/09/16 at 18:30 Glucagon (Glucagen) 1 mg Q15M PRN IM DECREASED GLUCOSE; Start 07/09/16 at 18:30 Glucose (Glutose) 15 gm Q15M PRN BUCCAL DECREASED GLUCOSE; Start 07/09/16 at 18 :30 Aspirin (Halfprin) 81 mg DAILY PO Last administered on 07/12/16 09:03; Admin Dose 81 MG; Start 07/10/16 at 09:00 Atorvastatin Calcium (Lipitor) 80 mg QHS PO Last administered on 07/11/16 20: 47; Admin Dose 80 MG; Start 07/10/16 at 21:00 Clonidine (Catapres) 0.1 mg Q6 PO Last administered on 07/12/16 05:50; Admin Dose 0.1 MG; Start 07/10/16 at 12:00 Isosorbide Mononitrate (Imdur) 60 mg DAILY PO Last administered on 07/12/16 09 :03; Admin Dose 60 MG; Start 07/10/16 at 10:00 Lactobacillus Acidoph/Bulgaricus (Floranex) 1 tab TID PO Last administered on 09:03; Admin Dose 1 TAB; Start 07/10/16 at 09:00 Metoprolol Succinate (Toprol Xl) 50 mg BID PO Last administered on 07/11/16 20 :49; Admin Dose 50 MG; Start 07/10/16 at 10:00 Pramipexole (Mirapex) 0.25 mg HS PO ; Start 07/10/16 at 21:00 Prasugrel (Effient) 10 mg DAILY PO Last administered on 07/12/16 09:03; Admin Dose 10 MG; Start 07/10/16 at 10:30 Acetaminophen (Tylenol Tab) 500 mg Q4H PRN PO PAIN AND OR ELEVATED TEMP; Start 07/10/16 at 09:00 Ondansetron HCl (Zofran Inj) 4 mg Q6H PRN IV NAUSEA AND/OR VOMITING Last administered on 07/11/16 12:04; Admin Dose 4 MG; Start 07/10/16 at 09:00 Vancomycin HCl (Vancomycin Oral Syringe) 125 mg Q6 PO Last administered on 07/12 05:44; Admin Dose 125 MG; Start 07/10/16 at 12:00 Gabapentin (Neurontin) 300 mg TID PO Last administered on 07/12/16 09:03; Admin Dose 300 MG; Start 1/26/17 at 21:00 Cholestyramine Resin (Questran Light) 4 gm BID PO Last administered on t 09:03; Admin Dose 4 GM; Start 07/11/16 at 09:00 VITA REBOLLEDO MD Jul 12, 2016 11:08
--- NOTE | 2016-07-12 11:18 | HP ---
DATE OF ADMISSION: 07/11/2016 TYPE OF CONSULTATION: Vascular surgery consultation. Dear Doctors: Mr. Lyons is a 50-year-old gentleman who is known to our vascular surgery service with a myriad of medical conditions who had recently been diagnosed with C. diff and has been treated for that with oral vancomycin. The patient also has a longstanding history of end-stage renal disease in which koby canales has had multiple chest wall catheter placements and left upper extremity fistula creations that ne eded revisions. As of recent, patient underwent a complicated left upper extremity axillary artery to axillary vein xenograft fistula creation. Patient recently has been started on 2 needle cannulat ions in view of the fistula and he has been tolerating that well. Patient denies any left upper ext remity claudication or rest pain-like symptoms. Patient mentions that his left upper extremity pain during his dialysis sessions has now resolved. As of recent, that patient mentioned that he has be gun to have episodes of diarrhea and bilateral lower extremity discomfort, specifically left lower e xtremity pain. Patient also mentions that he has a right upper thigh increased numbness and decreas ed sensation and at times it extends to his right scrotal area. At the moment, the patient denies shortness of breath, chest pain, nausea, vomiting, fever or chills. PAST MEDICAL HISTORY: Entails end-stage renal disease, C. diff, hypertension, hyperlipidemia, coron esme artery disease, DE, history of drug abuse, on chronic pain medication, diabetes type 1, choleste rol, previous smoker. PAST SURGICAL HISTORY: Bilateral rotator cuff surgeries, nasal surgery for deviated septum, prosthe tic right eye, multiple cardiac catheterization and stent placements, multiple chest wall Perm-A-Cat h placements, multiple Port-A-Cath placements, bilateral upper extremity fistula creations. FAMILY HISTORY: Coronary artery disease and hypertension. SOCIAL HISTORY: Denies current tobacco, alcohol or illicit drug use. Previous smoker and drug abus er. ALLERGIES: 1. AZITHROMYCIN. 2. CODEINE. 3. ERYTHROMYCIN. 4. MORPHINE. 5. ADHESIVE TAPE. PHYSICAL EXAMINATION: GENERAL: Alert and oriented x3. HEENT: Normocephalic, atraumatic. Mucosa moist. NECK: Supple. No carotid bruit. PULMONARY: Clear to auscultation bilaterally. No crackles. CARDIOVASCULAR: S1, S2 present. No murmurs. ABDOMEN: Soft, nontender, nondistended. Bowel sounds positive. EXTREMITIES: Left upper extremity palpable brachial pulse. Motor, sensory intact. Capillary refil l 2 to 3 seconds. Surgical scars all well healed. Tattoo along the whole arm. There is a fistula with bruit and thrill present, inadequate. Right lower extremity palpable femoral pulse, palpable pedal pulse. Motor and sensory intact. Capi llary refill 3 seconds. Tattoo along the lower leg. No edema. Left lower extremity palpable femoral pulse, faint pedal pulse. Motor and sensory intact. Capillar y refill 2 to 3 seconds. No edema. Tattoo along the lower leg. ASSESSMENT AND PLAN: End-stage renal disease: It seems that the patient's left upper extremity fistula is functioning we ll. They recommend continue with his hemodialysis sessions via the fistula. Patient also had his r ecent Perm-A-Cath removed. From a vascular standpoint, we will continue his fistula surveillance as an outpatient. Bilateral lower extremity atherosclerosis: It seems the patient 's noninvasive vascular study iden tified that he may have a stenosis in his superficial femoral artery. We will plan to obtain a CT a ngiography in order to better delineate the findings. His complaints do not necessarily correlate w ith disabling claudication or rest pain. However, the patient has been atypical in his presentation s with his atherosclerotic disease. Further, he does complain that since has had the previous cardi ac catheterizations has via his right groin, he has developed what seems to be musculocutaneous numb ness and decreased sensation along his right upper thigh extending to the medial aspect of the groin and his right scrotum. Will further evaluate the anatomy in regards to that. Optimize vascular status (BP meds, diet, nutrition, exercise, sugar control, antiplatelets). Discussed findings with plan and management with the patient and he understands. Thank you for allowing us to partake in the care of your patient. Please call with any questions. Dictated By: JOE BLISS/SERGO Conf#: [id number] DID#: [id number]
[2016-07-12] MEDS: DIPHENHYDRAMINE 50 MG INJ IV SCH (12:02)
--- NOTE | 2016-07-12 13:50 | CONS ---
Date/Time of Note Date/Time of Note DATE: 07/12/16 TIME: 13:47 Assessment/Plan Assessment/Plan Chief Complaint/Hosp Course IMPRESSION: 1. Diarrhea. 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 Improved after Questran restarted. 2. Diabetes mellitus. 3. Renal failure. 4. Coronary artery disease. 5. Hypertension. PLAN: 1. Continue Questran 2. if diarrhea do not improve, can titrate up Questran 3. can also consider colonoscopy to r/o microscopic colitis if diarrhea do not improve. Problems: Consultation Date/Type/Reason Admit Date/Time Jul 11, 2016 at 12:19 Initial Consult Date Type of Consultation: GI 24 HR Interval Summary Free Text/Dictation no abdomial pain, no n/v, diarrhea improved after Questran started. Constitutional: improved Exam/Review of Systems Vital Signs Vitals Vital Signs Date Time Temp Pulse Resp B/P Pulse Ox O2 Delivery O2 Flow Rate FiO2 07/12/16 11:00 82 07/12/16 08:06 98.4 18 143/78 97 07/09/16 16:30 Room Air Intake and Output 07/11/16 07/11/16 07/12/16 15:00 23:00 07:00 Intake Total 1020 ml 600 ml Output Total 200 ml 800 ml Balance 820 ml -200 ml Exam Constitutional: alert, oriented, well developed Psych: nl mood/affect, no complaints Head: atraumatic, normocephalic Eyes: EOMI, nl conjunctiva, nl lids, nl sclera ENMT: mucosa pink and moist, nl external ears & nose, nl lips & teeth, nl nasal mucosa & septum Neck: non-tender, supple Respiratory: clear to auscultation, normal air movement Cardiovascular: nl pulses, regular rate and rhythm Gastrointestinal: nl liver, spleen, non-tender, soft Results Result Diagram: 07/12/16 0526 07/12/16 0526 Results 24 hrs Laboratory Tests Test 07/11/16 17:10 07/11/16 19:48 07/11/16 23:52 07/12/16 03:03 Bedside Glucose 74 96 152 142 Test 07/12/16 05:26 07/12/16 07:56 07/12/16 12:06 Alanine Aminotransferase (ALT/SGPT) 86 H Albumin 3.5 Albumin/Globulin Ratio 1.12 Alkaline Phosphatase 270 H Anion Gap 20 H Aspartate Amino Transf (AST/SGOT) 52 H Basophils # 0.0 Basophils % 0.4 Blood Morphology Comment Blood Urea Nitrogen 60 H Calcium Level 8.5 Carbon Dioxide Level 23 Chloride Level 99 Creatinine 6.34 H Direct Bilirubin 0.00 Eosinophils # 0.7 H Eosinophils % 10.0 H Globulin 3.10 Glucose Level 132 Hematocrit 36.6 L Hemoglobin 12.4 L Indirect Bilirubin 0.3 Lymphocytes # 1.3 Lymphocytes % 17.5 Mean Corpuscular Hemoglobin 30.4 Mean Corpuscular Hemoglobin Concent 34.0 Mean Corpuscular Volume 89.3 Mean Platelet Volume 9.8 Monocytes # 0.7 Monocytes % 9.1 Neutrophils # 4.6 Neutrophils % 63.0 Nucleated Red Blood Cells # 0.0 Nucleated Red Blood Cells % 0.0 Platelet Count 170 Potassium Level 5.4 H Red Blood Count 4.10 L Red Cell Distribution Width 16.5 H Sodium Level 137 Total Bilirubin 0.3 Total Protein 6.6 White Blood Count 7.3 # Bedside Glucose 162 252 H Medications Medications Current Medications Hydromorphone HCl (Dilaudid) 1 mg Q3 PRN IV PAIN Last administered on 12:01; Admin Dose 1 MG; Start 07/09/16 at 17:00 Diphenhydramine HCl (Benadryl) 50 mg Q6H PRN IV ITCHING Last administered on 12:00; Admin Dose 50 MG; Start 07/09/16 at 17:00 Non-Formulary Medication (Non-Formulary Insulin) INSULIN PUMP see la... [id number] Last administered on 07/12/16 12:00; Admin Dose 3 UNIT; Start 07/09/16 at 19:45 Non-Formulary Medication (Non-Formulary Insulin) INSULIN PUMP see la... HS SC Last administered on 07/11/16 21:00; Admin Dose 2 UNIT; Start 07/09/16 at 21:00 Miscellaneous Information 1 ea NOTE XX ; Start 07/09/16 at 18:30 Glucose (Glutose) 15 gm Q15M PRN PO DECREASED GLUCOSE; Start 07/09/16 at 18:30 Glucose (Glutose) 22.5 gm Q15M PRN PO DECREASED GLUCOSE; Start 07/09/16 at 18: 30 Dextrose (D50w Syringe) 25 ml Q15M PRN IV DECREASED GLUCOSE; Start 07/09/16 at 18:30 Dextrose (D50w Syringe) 50 ml Q15M PRN IV DECREASED GLUCOSE; Start 07/09/16 at 18:30 Glucagon (Glucagen) 1 mg Q15M PRN IM DECREASED GLUCOSE; Start 07/09/16 at 18:30 Glucose (Glutose) 15 gm Q15M PRN BUCCAL DECREASED GLUCOSE; Start 07/09/16 at 18 :30 Aspirin (Halfprin) 81 mg DAILY PO Last administered on 07/12/16 09:03; Admin Dose 81 MG; Start 07/10/16 at 09:00 Atorvastatin Calcium (Lipitor) 80 mg QHS PO Last administered on 07/11/16 20: 47; Admin Dose 80 MG; Start 07/10/16 at 21:00 Clonidine (Catapres) 0.1 mg Q6 PO Last administered on 07/12/16 05:50; Admin Dose 0.1 MG; Start 07/10/16 at 12:00 Isosorbide Mononitrate (Imdur) 60 mg DAILY PO Last administered on 07/12/16 09 :03; Admin Dose 60 MG; Start 07/10/16 at 10:00 Lactobacillus Acidoph/Bulgaricus (Floranex) 1 tab TID PO Last administered on 12:16; Admin Dose 1 TAB; Start 07/10/16 at 09:00 Metoprolol Succinate (Toprol Xl) 50 mg BID PO Last administered on 07/11/16 20 :49; Admin Dose 50 MG; Start 07/10/16 at 10:00 Pramipexole (Mirapex) 0.25 mg HS PO ; Start 07/10/16 at 21:00 Prasugrel (Effient) 10 mg DAILY PO Last administered on 07/12/16 09:03; Admin Dose 10 MG; Start 07/10/16 at 10:30 Acetaminophen (Tylenol Tab) 500 mg Q4H PRN PO PAIN AND OR ELEVATED TEMP; Start 07/10/16 at 09:00 Ondansetron HCl (Zofran Inj) 4 mg Q6H PRN IV NAUSEA AND/OR VOMITING Last administered on 07/11/16 12:04; Admin Dose 4 MG; Start 07/10/16 at 09:00 Vancomycin HCl (Vancomycin Oral Syringe) 125 mg Q6 PO Last administered on 07/12 12:17; Admin Dose 125 MG; Start 07/10/16 at 12:00 Gabapentin (Neurontin) 300 mg TID PO Last administered on 07/12/16 12:16; Admin Dose 300 MG; Start 07/10/16 at 21:00 Cholestyramine Resin (Questran Light) 4 gm BID PO Last administered on 09:03; Admin Dose 4 GM; Start 07/11/16 at 09:00 NANY MIRANDA MD Jul 12, 2016 13:50
[2016-07-12 18:48] LABS: CYCLIC CITRULLINATED PEP IGG <16 UNITS
[2016-07-12] MEDS: ATORVASTATIN 80 MG TAB PO SCH (20:58)
[2016-07-12] MEDS: PRAMIPEXOLE 0.25 MG TAB PO SCH (20:59)
[2016-07-13] VITALS (11 sets, daily range): BP systolic 104–131; BP diastolic 64–78; PULSE 70–88; RESP 14–18
[2016-07-13] MEDS: HYDROmorphONE 1 MG/ML SYG IV PRN ×8 (03:15→23:50)
[2016-07-13] MEDS: DIPHENHYDRAMINE 50 MG INJ IV PRN ×4 (06:00→23:50)
[2016-07-13] MEDS: VANCOMYCIN HCL 250 MG/5ML POSYG PO SCH ×4 (06:01→23:44)
[2016-07-13 06:35] LABS: ALBUMIN 3.3 g/dl (3.3-4.9)
[2016-07-13 06:38] LABS: ALBUMIN/GLOBULIN RATIO 1.22; BILIRUBIN,INDIRECT 0.1 mg/dl (0-1.1); BILIRUBIN,TOTAL 0.1 mg/dl (0.2-1.3); CREATININE 5.62 mg/dl (0.61-1.24)
[2016-07-13 06:39] LABS: CALCIUM 8.2 mg/dl (8.4-10.2)
[2016-07-13 06:59] LABS: BASOPHILS % 0.7 % (0.0-2.0); EOSINOPHILS # 0.7 10^3/ul (0.0-0.5); EOSINOPHILS % 9.9 % (0.0-7.0); HEMATOCRIT 33.3 % (42.0-52.0); HEMOGLOBIN 11.3 g/dl (14.0-18.0); LYMPHOCYTES # 1.3 10^3/ul (0.8-2.9); MEAN CORPUSCULAR HEMOGLOBIN 30.3 pg (29.0-33.0); MEAN CORPUSCULAR HGB CONC 33.9 g/dl (32.0-37.0); MEAN CORPUSCULAR VOLUME 89.4 fl (82.0-101.0); MEAN PLATELET VOLUME 9.9 fl (7.4-10.4); MONOCYTE # 0.9 10^3/ul (0.3-0.9); MONOCYTES % 13.4 % (0.0-11.0); NEUTROPHIL # 3.8 10^3/ul (1.6-7.5); PLATELET COUNT 156 10^3/UL (140-440); RED BLOOD COUNT 3.73 10^6/ul (4.70-6.10); RED CELL DISTRIBUTION WIDTH 17.1 % (11.5-14.5); UNCORRECTED WBC 6.7 10^3/ul (4.8-10.8); WHITE BLOOD COUNT 6.7 10^3/ul (4.8-10.8)
[2016-07-13 07:01] LABS: CONDITION 1; LH ANALYZER COMMENTS 1
[2016-07-13] MEDS: CALCIUM ACETATE 667 MG CAP PO SCH ×3 (07:35→17:09)
[2016-07-13] MEDS: SEVELAMER 800 MG TAB PO SCH ×3 (07:36→17:09)
[2016-07-13] MEDS: LACTOBACILLUS CHEW TAB PO SCH ×3 (08:25→21:04)
[2016-07-13] MEDS: CHOLESTYRAMINE (LIGHT) 4 GM PACKET PO SCH ×2 (08:25→21:05)
[2016-07-13] MEDS: METOPROLOL (XL) 50 MG TAB PO SCH ×2 (08:26→21:05)
[2016-07-13] MEDS: GABAPENTIN 300 MG CAP PO SCH ×2 (08:26→12:03)
[2016-07-13] MEDS: ASPIRIN (EC) 81 MG TAB PO SCH (08:26)
[2016-07-13] MEDS: PRASUGREL HYDROCHLORIDE 10 MG TABLET PO SCH (08:27)
[2016-07-13] MEDS: ISOSORBIDE MONONITRATE(SR)60 MG TAB PO SCH (08:27)
--- NOTE | 2016-07-13 09:31 | CONS ---
Date/Time of Note Date/Time of Note DATE: 07/13/16 TIME: 09:29 Assessment/Plan Assessment/Plan Chief Complaint/Hosp Course IMPRESSION: 1. Diarrhea. 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 Improved after Questran restarted. C. diff negative. 2. Diabetes mellitus. 3. Renal failure. 4. Coronary artery disease. 5. Hypertension. PLAN: 1. Continue Questran 2. if diarrhea do not improve, can titrate up Questran 3. can also consider colonoscopy to r/o microscopic colitis if diarrhea do not improve. 4. finish 14 day course of oral vancomycin Problems: Consultation Date/Type/Reason Admit Date/Time Jul 11, 2016 at 12:19 Type of Consultation: GI 24 HR Interval Summary Free Text/Dictation diarrhea much better, no n/v, tolerating po Constitutional: improved Exam/Review of Systems Vital Signs Vitals Vital Signs Date Time Temp Pulse Resp B/P Pulse Ox O2 Delivery O2 Flow Rate FiO2 07/13/16 07:53 97.6 68 18 131/72 95 07/09/16 16:30 Room Air Intake and Output 07/12/16 07/12/16 07/13/16 15:00 23:00 07:00 Intake Total 500 ml 1040 ml 1400 ml Output Total 3000 ml 1000 ml 1000 ml Balance -2500 ml 40 ml 400 ml Exam Constitutional: alert, oriented, well developed Psych: nl mood/affect, no complaints Head: atraumatic, normocephalic ENMT: mucosa pink and moist, nl external ears & nose, nl lips & teeth, nl nasal mucosa & septum Neck: non-tender, supple Respiratory: clear to auscultation, normal air movement Cardiovascular: nl pulses, regular rate and rhythm Gastrointestinal: bowel sounds, non-tender, soft Results Result Diagram: 07/13/16 0448 07/13/16 0446 Results 24 hrs Laboratory Tests Test 07/12/16 12:06 07/12/16 17:26 07/12/16 19:58 07/12/16 22:10 Bedside Glucose 252 H 181 255 H 70 Test 07/13/16 04:46 07/13/16 04:48 07/13/16 07:33 Alanine Aminotransferase (ALT/SGPT) 66 Albumin 3.3 Albumin/Globulin Ratio 1.22 Alkaline Phosphatase 247 H Anion Gap 18 H Aspartate Amino Transf (AST/SGOT) 36 Blood Urea Nitrogen 55 H Calcium Level 8.2 L Carbon Dioxide Level 24 Chloride Level 99 Creatinine 5.62 H Direct Bilirubin 0.00 Globulin 2.70 Glucose Level 91 # Indirect Bilirubin 0.1 Potassium Level 6.0 H Sodium Level 135 Total Bilirubin 0.1 L Total Protein 6.0 L Basophils # 0.0 Basophils % 0.7 Blood Morphology Comment Eosinophils # 0.7 H Eosinophils % 9.9 H Hematocrit 33.3 L Hemoglobin 11.3 L Lymphocytes # 1.3 Lymphocytes % 19.0 Mean Corpuscular Hemoglobin 30.3 Mean Corpuscular Hemoglobin Concent 33.9 Mean Corpuscular Volume 89.4 Mean Platelet Volume 9.9 Monocytes # 0.9 Monocytes % 13.4 H Neutrophils # 3.8 Neutrophils % 57.0 Nucleated Red Blood Cells # 0.0 Nucleated Red Blood Cells % 0.0 Platelet Count 156 Red Blood Count 3.73 L Red Cell Distribution Width 17.1 H White Blood Count 6.7 Bedside Glucose 144 Medications Medications Current Medications Hydromorphone HCl (Dilaudid) 1 mg Q3 PRN IV PAIN Last administered on 08:55; Admin Dose 1 MG; Start 07/09/16 at 17:00 Diphenhydramine HCl (Benadryl) 50 mg Q6H PRN IV ITCHING Last administered on 06:00; Admin Dose 50 MG; Start 07/09/16 at 17:00 Non-Formulary Medication (Non-Formulary Insulin) INSULIN PUMP see la... [id number] SC Last administered on 07/13/16 09:01; Admin Dose 5 UNIT; Start 07/09/16 at 19:45 Non-Formulary Medication (Non-Formulary Insulin) INSULIN PUMP see la... HS SC Last administered on 07/11/16 21:00; Admin Dose 2 UNIT; Start 07/09/16 at 21:00 Miscellaneous Information 1 ea NOTE XX ; Start 07/09/16 at 18:30 Glucose (Glutose) 15 gm Q15M PRN PO DECREASED GLUCOSE; Start 07/09/16 at 18:30 Glucose (Glutose) 22.5 gm Q15M PRN PO DECREASED GLUCOSE; Start 07/09/16 at 18: 30 Dextrose (D50w Syringe) 25 ml Q15M PRN IV DECREASED GLUCOSE; Start 07/09/16 at 18:30 Dextrose (D50w Syringe) 50 ml Q15M PRN IV DECREASED GLUCOSE; Start 07/09/16 at 18:30 Glucagon (Glucagen) 1 mg Q15M PRN IM DECREASED GLUCOSE; Start 07/09/16 at 18:30 Glucose (Glutose) 15 gm Q15M PRN BUCCAL DECREASED GLUCOSE; Start 07/09/16 at 18 :30 Aspirin (Halfprin) 81 mg DAILY PO Last administered on 07/13/16 08:26; Admin Dose 81 MG; Start 07/10/16 at 09:00 Atorvastatin Calcium (Lipitor) 80 mg QHS PO Last administered on 07/12/16 20: 58; Admin Dose 80 MG; Start 07/10/16 at 21:00 Clonidine (Catapres) 0.1 mg Q6 PO Last administered on 07/13/16 06:01; Admin Dose 0.1 MG; Start 07/10/16 at 12:00 Isosorbide Mononitrate (Imdur) 60 mg DAILY PO Last administered on 07/13/16 08 :27; Admin Dose 60 MG; Start 07/10/16 at 10:00 Lactobacillus Acidoph/Bulgaricus (Floranex) 1 tab TID PO Last administered on 08:25; Admin Dose 1 TAB; Start 07/10/16 at 09:00 Metoprolol Succinate (Toprol Xl) 50 mg BID PO Last administered on 07/13/16 08 :26; Admin Dose 50 MG; Start 07/10/16 at 10:00 Pramipexole (Mirapex) 0.25 mg HS PO Last administered on 07/12/16 20:59; Admin Dose 0.25 MG; Start 07/10/16 at 21:00 Prasugrel (Effient) 10 mg DAILY PO Last administered on 07/13/16 08:27; Admin Dose 10 MG; Start 07/10/16 at 10:30 Acetaminophen (Tylenol Tab) 500 mg Q4H PRN PO PAIN AND OR ELEVATED TEMP; Start 07/10/16 at 09:00 Ondansetron HCl (Zofran Inj) 4 mg Q6H PRN IV NAUSEA AND/OR VOMITING Last administered on 07/11/16 12:04; Admin Dose 4 MG; Start 07/10/16 at 09:00 Vancomycin HCl (Vancomycin Oral Syringe) 125 mg Q6 PO Last administered on 07/13 06:01; Admin Dose 125 MG; Start 07/10/16 at 12:00 Gabapentin (Neurontin) 300 mg TID PO Last administered on 07/13/16 08:26; Admin Dose 300 MG; Start 07/10/16 at 21:00 Cholestyramine Resin (Questran Light) 4 gm BID PO Last administered on 08:25; Admin Dose 4 GM; Start 07/11/16 at 09:00 NANY MIRANDA MD Jul 13, 2016 09:31
[2016-07-13] MEDS ORDERED: NA POLYST SULFON 15 GM/60 ML BTL PO ONE (10:00)
--- NOTE | 2016-07-13 10:32 | PN ---
Date/Time of Note Date/Time of Note DATE: 07/13/16 TIME: 10:30 Assessment/Plan VTE Prophylaxis VTE Prophylaxis Intervention: heparin Lines/Catheters IV Catheter Type (from [facility]): PORTACATH Assessment/Plan Assessment/Plan 1. Diarrhea with recent history of Clostridium difficile colitis. Continue patient on vancomycin and Questran. -stool for Clostridium difficile. 2. Dehydration secondary to diarrhea with recent history of Clostridium difficile colitis. Continue IV fluids. 3. Type 1 diabetes mellitus with diabetic nephropathy. Continue NovoLog per insulin pump. - Endocrinology consult appreciated- per Dr. Rob 4. End-stage renal disease, hemodialysis dependent. - Dr. Hubbard is following the patient in nephrology consultation. - HD today per staff 5. Coronary artery disease. 6. Hypertension. 7. Bilateral lower extremities pain. Dr. Orosco is following and rheumatology consultation. 8. Mid left superficial artery stenosis. - per Dr. Pritchett is asked to see patient in vascular surgery consultation - Plan CT angiogram today. 9. Hyperkalemia- 6.2 - sp Repeat K today - HD today - refused Kayexalate Continue heparin for deep venous thrombosis prophylaxis and Pepcid for peptic ulcer disease prophylaxis. Further recommendations based on clinical course. Plan of care discussed with Dr. Rosales. Subjective 24 Hr Interval Summary ENT: no complaints Respiratory: no complaints Cardiovascular: no complaints Gastrointestinal: diarrhea Genitourinary: no complaints Musculoskeletal: no complaints Skin: no complaints Neurologic: no complaints Endocrine: no complaints Psychological: no complaints Immunologic: no complaints Exam/Review of Systems Vital Signs Vitals Vital Signs Date Time Temp Pulse Resp B/P Pulse Ox O2 Delivery O2 Flow Rate FiO2 07/13/16 07:53 97.6 68 18 131/72 95 07/09/16 16:30 Room Air Intake and Output 07/12/16 07/12/16 07/13/16 15:00 23:00 07:00 Intake Total 500 ml 1040 ml 1400 ml Output Total 3000 ml 1000 ml 1000 ml Balance -2500 ml 40 ml 400 ml Exam Constitutional: alert, oriented, well developed Psych: nl mood/affect Head: atraumatic Eyes: EOMI, PERRL, nl sclera ENMT: nl external ears & nose Neck: non-tender Respiratory: clear to auscultation Cardiovascular: nl pulses Gastrointestinal: non-tender, soft Musculoskeletal: nl extremities to inspection, other Extremities: normal pulses 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: nl mental status, nl speech Lymph: nontender Results Result Diagram: 07/13/16 0448 07/13/16 0926 Results 24 hrs Laboratory Tests Test 07/12/16 12:06 07/12/16 17:26 07/12/16 19:58 07/12/16 22:10 Bedside Glucose 252 H 181 255 H 70 Test 07/13/16 04:46 07/13/16 04:48 07/13/16 07:33 07/13/16 09:26 Alanine Aminotransferase (ALT/SGPT) 66 Albumin 3.3 Albumin/Globulin Ratio 1.22 Alkaline Phosphatase 247 H Anion Gap 18 H Aspartate Amino Transf (AST/SGOT) 36 Blood Urea Nitrogen 55 H Calcium Level 8.2 L Carbon Dioxide Level 24 Chloride Level 99 Creatinine 5.62 H Direct Bilirubin 0.00 Globulin 2.70 Glucose Level 91 # Indirect Bilirubin 0.1 Potassium Level 6.0 H 6.2 *H Sodium Level 135 Total Bilirubin 0.1 L Total Protein 6.0 L Basophils # 0.0 Basophils % 0.7 Blood Morphology Comment Eosinophils # 0.7 H Eosinophils % 9.9 H Hematocrit 33.3 L Hemoglobin 11.3 L Lymphocytes # 1.3 Lymphocytes % 19.0 Mean Corpuscular Hemoglobin 30.3 Mean Corpuscular Hemoglobin Concent 33.9 Mean Corpuscular Volume 89.4 Mean Platelet Volume 9.9 Monocytes # 0.9 Monocytes % 13.4 H Neutrophils # 3.8 Neutrophils % 57.0 Nucleated Red Blood Cells # 0.0 Nucleated Red Blood Cells % 0.0 Platelet Count 156 Red Blood Count 3.73 L Red Cell Distribution Width 17.1 H White Blood Count 6.7 Bedside Glucose 144 Medications Medications Current Medications Hydromorphone HCl (Dilaudid) 1 mg Q3 PRN IV PAIN Last administered on 08:55; Admin Dose 1 MG; Start 07/09/16 at 17:00 Diphenhydramine HCl (Benadryl) 50 mg Q6H PRN IV ITCHING Last administered on 06:00; Admin Dose 50 MG; Start 07/09/16 at 17:00 Non-Formulary Medication (Non-Formulary Insulin) INSULIN PUMP see la... [id number] SC Last administered on 07/13/16 09:01; Admin Dose 5 UNIT; Start 07/09/16 at 19:45 Non-Formulary Medication (Non-Formulary Insulin) INSULIN PUMP see la... HS SC Last administered on 07/11/16 21:00; Admin Dose 2 UNIT; Start 07/09/16 at 21:00 Miscellaneous Information 1 ea NOTE XX ; Start 07/09/16 at 18:30 Glucose (Glutose) 15 gm Q15M PRN PO DECREASED GLUCOSE; Start 07/09/16 at 18:30 Glucose (Glutose) 22.5 gm Q15M PRN PO DECREASED GLUCOSE; Start 07/09/16 at 18: 30 Dextrose (D50w Syringe) 25 ml Q15M PRN IV DECREASED GLUCOSE; Start 07/09/16 at 18:30 Dextrose (D50w Syringe) 50 ml Q15M PRN IV DECREASED GLUCOSE; Start 07/09/16 at 18:30 Glucagon (Glucagen) 1 mg Q15M PRN IM DECREASED GLUCOSE; Start 07/09/16 at 18:30 Glucose (Glutose) 15 gm Q15M PRN BUCCAL DECREASED GLUCOSE; Start 07/09/16 at 18 :30 Aspirin (Halfprin) 81 mg DAILY PO Last administered on 07/13/16 08:26; Admin Dose 81 MG; Start 07/10/16 at 09:00 Atorvastatin Calcium (Lipitor) 80 mg QHS PO Last administered on 07/12/16 20: 58; Admin Dose 80 MG; Start 07/10/16 at 21:00 Clonidine (Catapres) 0.1 mg Q6 PO Last administered on 07/13/16 06:01; Admin Dose 0.1 MG; Start 07/10/16 at 12:00 Isosorbide Mononitrate (Imdur) 60 mg DAILY PO Last administered on 07/13/16 08 :27; Admin Dose 60 MG; Start 07/10/16 at 10:00 Lactobacillus Acidoph/Bulgaricus (Floranex) 1 tab TID PO Last administered on 08:25; Admin Dose 1 TAB; Start 07/10/16 at 09:00 Metoprolol Succinate (Toprol Xl) 50 mg BID PO Last administered on 07/13/16 08 :26; Admin Dose 50 MG; Start 07/10/16 at 10:00 Pramipexole (Mirapex) 0.25 mg HS PO Last administered on 07/12/16 20:59; Admin Dose 0.25 MG; Start 07/10/16 at 21:00 Prasugrel (Effient) 10 mg DAILY PO Last administered on 07/13/16 08:27; Admin Dose 10 MG; Start 07/10/16 at 10:30 Acetaminophen (Tylenol Tab) 500 mg Q4H PRN PO PAIN AND OR ELEVATED TEMP; Start 07/10/16 at 09:00 Ondansetron HCl (Zofran Inj) 4 mg Q6H PRN IV NAUSEA AND/OR VOMITING Last administered on 07/11/16 12:04; Admin Dose 4 MG; Start 07/10/16 at 09:00 Vancomycin HCl (Vancomycin Oral Syringe) 125 mg Q6 PO Last administered on 07/13 06:01; Admin Dose 125 MG; Start 07/10/16 at 12:00 Cholestyramine Resin (Questran Light) 4 gm BID PO Last administered on 08:25; Admin Dose 4 GM; Start 07/11/16 at 09:00 Gabapentin (Neurontin) 300 mg , PO ; Start 07/13/16 at 13:00 Gabapentin (Neurontin) 600 mg 21 PO ; Start 07/13/16 at 21:00 PEDRO BENSON Jul 13, 2016 10:32
[2016-07-13] MEDS: LORAZEPAM 2 MG INJ IV SCH (12:50)
--- NOTE | 2016-07-13 15:32 | CONS ---
Date/Time of Note Date/Time of Note DATE: 07/13/16 TIME: 15:28 Assessment/Plan Assessment/Plan Additional Assessment/Plan * bilaretal leg pain: ? neuropathy/ radiculopathy. high grade stenosis noted left femoral artery. vascular eval noted and appreciated. needs ct angio * ESRD: on hd 4x/week.extra hd today due to elevated k despite hd yesterday. pt insists does not have high dietray k intake? * anemia: stable post prbc * iddm: on insulin * htn: stable * diarrhea: on questran per gi. may need c scope r/o microscopic colitits Consultation Date/Type/Reason Admit Date/Time Jul 11, 2016 at 12:19 Type of Consultation: GI 24 HR Interval Summary Free Text/Dictation sleeping. comfortable. on hd again today due to high k Exam/Review of Systems Vital Signs Vitals Vital Signs Date Time Temp Pulse Resp B/P Pulse Ox O2 Delivery O2 Flow Rate FiO2 07/13/16 14:30 75 07/13/16 12:30 20 07/13/16 07:53 97.6 131/72 95 07/09/16 16:30 Room Air Intake and Output 07/12/16 07/12/16 07/13/16 15:00 23:00 07:00 Intake Total 500 ml 1040 ml 1400 ml Output Total 3000 ml 1000 ml 1000 ml Balance -2500 ml 40 ml 400 ml Exam Constitutional: alert Psych: no complaints Head: normocephalic Neck: non-tender, supple Respiratory: clear to auscultation, normal air movement Cardiovascular: regular rate and rhythm Gastrointestinal: non-tender, soft Results Result Diagram: 07/13/16 0448 07/13/16 0926 Results 24 hrs Laboratory Tests Test 07/12/16 17:26 07/12/16 19:58 07/12/16 22:10 07/13/16 04:46 Bedside Glucose 181 255 H 70 Alanine Aminotransferase (ALT/SGPT) 66 Albumin 3.3 Albumin/Globulin Ratio 1.22 Alkaline Phosphatase 247 H Anion Gap 18 H Aspartate Amino Transf (AST/SGOT) 36 Blood Urea Nitrogen 55 H Calcium Level 8.2 L Carbon Dioxide Level 24 Chloride Level 99 Creatinine 5.62 H Direct Bilirubin 0.00 Globulin 2.70 Glucose Level 91 # Indirect Bilirubin 0.1 Potassium Level 6.0 H Sodium Level 135 Total Bilirubin 0.1 L Total Protein 6.0 L Test 07/13/16 04:48 07/13/16 07:33 07/13/16 09:26 07/13/16 11:51 Basophils # 0.0 Basophils % 0.7 Blood Morphology Comment Eosinophils # 0.7 H Eosinophils % 9.9 H Hematocrit 33.3 L Hemoglobin 11.3 L Lymphocytes # 1.3 Lymphocytes % 19.0 Mean Corpuscular Hemoglobin 30.3 Mean Corpuscular Hemoglobin Concent 33.9 Mean Corpuscular Volume 89.4 Mean Platelet Volume 9.9 Monocytes # 0.9 Monocytes % 13.4 H Neutrophils # 3.8 Neutrophils % 57.0 Nucleated Red Blood Cells # 0.0 Nucleated Red Blood Cells % 0.0 Platelet Count 156 Red Blood Count 3.73 L Red Cell Distribution Width 17.1 H White Blood Count 6.7 Bedside Glucose 144 210 Potassium Level 6.2 *H Test 07/13/16 15:01 Bedside Glucose 126 Medications Medications Current Medications Hydromorphone HCl (Dilaudid) 1 mg Q3 PRN IV PAIN Last administered on 14:57; Admin Dose 1 MG; Start 07/09/16 at 17:00 Diphenhydramine HCl (Benadryl) 50 mg Q6H PRN IV ITCHING Last administered on 11:55; Admin Dose 50 MG; Start 07/09/16 at 17:00 Non-Formulary Medication (Non-Formulary Insulin) INSULIN PUMP see la... [id number] SC Last administered on 07/13/16 12:00; Admin Dose 9 UNIT; Start 07/09/16 at 19:45 Non-Formulary Medication (Non-Formulary Insulin) INSULIN PUMP see la... HS SC Last administered on 07/11/16 21:00; Admin Dose 2 UNIT; Start 07/09/16 at 21:00 Miscellaneous Information 1 ea NOTE XX ; Start 07/09/16 at 18:30 Glucose (Glutose) 15 gm Q15M PRN PO DECREASED GLUCOSE; Start 07/09/16 at 18:30 Glucose (Glutose) 22.5 gm Q15M PRN PO DECREASED GLUCOSE; Start 07/09/16 at 18: 30 Dextrose (D50w Syringe) 25 ml Q15M PRN IV DECREASED GLUCOSE; Start 07/09/16 at 18:30 Dextrose (D50w Syringe) 50 ml Q15M PRN IV DECREASED GLUCOSE; Start 07/09/16 at 18:30 Glucagon (Glucagen) 1 mg Q15M PRN IM DECREASED GLUCOSE; Start 07/09/16 at 18:30 Glucose (Glutose) 15 gm Q15M PRN BUCCAL DECREASED GLUCOSE; Start 07/09/16 at 18 :30 Aspirin (Halfprin) 81 mg DAILY PO Last administered on 07/13/16 08:26; Admin Dose 81 MG; Start 07/10/16 at 09:00 Atorvastatin Calcium (Lipitor) 80 mg QHS PO Last administered on 07/12/16 20: 58; Admin Dose 80 MG; Start 07/10/16 at 21:00 Clonidine (Catapres) 0.1 mg Q6 PO Last administered on 07/13/16 06:01; Admin Dose 0.1 MG; Start 07/10/16 at 12:00 Isosorbide Mononitrate (Imdur) 60 mg DAILY PO Last administered on 07/13/16 08 :27; Admin Dose 60 MG; Start 07/10/16 at 10:00 Lactobacillus Acidoph/Bulgaricus (Floranex) 1 tab TID PO Last administered on 12:00; Admin Dose 1 TAB; Start 07/10/16 at 09:00 Metoprolol Succinate (Toprol Xl) 50 mg BID PO Last administered on 07/13/16 08 :26; Admin Dose 50 MG; Start 07/10/16 at 10:00 Pramipexole (Mirapex) 0.25 mg HS PO Last administered on 07/12/16 20:59; Admin Dose 0.25 MG; Start 07/10/16 at 21:00 Prasugrel (Effient) 10 mg DAILY PO Last administered on 07/13/16 08:27; Admin Dose 10 MG; Start 07/10/16 at 10:30 Acetaminophen (Tylenol Tab) 500 mg Q4H PRN PO PAIN AND OR ELEVATED TEMP; Start 07/10/16 at 09:00 Ondansetron HCl (Zofran Inj) 4 mg Q6H PRN IV NAUSEA AND/OR VOMITING Last administered on 07/11/16 12:04; Admin Dose 4 MG; Start 07/10/16 at 09:00 Vancomycin HCl (Vancomycin Oral Syringe) 125 mg Q6 PO Last administered on 07/13 11:53; Admin Dose 125 MG; Start 07/10/16 at 12:00 Cholestyramine Resin (Questran Light) 4 gm BID PO Last administered on 08:25; Admin Dose 4 GM; Start 07/11/16 at 09:00 Gabapentin (Neurontin) 300 mg , PO Last administered on 07/13/16 12:03; Admin Dose 300 MG; Start 07/13/16 at 13:00 Gabapentin (Neurontin) 600 mg 21 PO ; Start 07/13/16 at 21:00 VITA REBOLLEDO MD Jul 13, 2016 15:32
[2016-07-13] MEDS ORDERED: GABAPENTIN 300 MG CAP PO SCH (21:00)
[2016-07-13] MEDS: PRAMIPEXOLE 0.25 MG TAB PO SCH (21:04)
[2016-07-13] MEDS: ATORVASTATIN 80 MG TAB PO SCH (21:04)
[2016-07-14] VITALS (11 sets, daily range): BP systolic 94–136; BP diastolic 52–82; PULSE 72–82; RESP 20
[2016-07-14] MEDS: HYDROmorphONE 1 MG/ML SYG IV PRN ×7 (03:00→21:11)
[2016-07-14 05:35] LABS: ALBUMIN 3.3 g/dl (3.3-4.9)
[2016-07-14 05:36] LABS: POTASSIUM 5.8 mmol/L (3.5-5.1)
[2016-07-14 05:38] LABS: ALBUMIN/GLOBULIN RATIO 1.1; BILIRUBIN,INDIRECT 0.2 mg/dl (0-1.1); BILIRUBIN,TOTAL 0.2 mg/dl (0.2-1.3); CREATININE 4.95 mg/dl (0.61-1.24); TOTAL PROTEIN 6.3 g/dl (6.1-8.1)
[2016-07-14] MEDS: DIPHENHYDRAMINE 50 MG INJ IV PRN ×3 (05:55→18:16)
[2016-07-14] MEDS: VANCOMYCIN HCL 250 MG/5ML POSYG PO SCH ×3 (05:56→18:16)
[2016-07-14 06:22] LABS: BASOPHILS % 0.5 % (0.0-2.0); EOSINOPHILS # 0.6 10^3/ul (0.0-0.5); EOSINOPHILS % 8.4 % (0.0-7.0); HEMATOCRIT 33.5 % (42.0-52.0); HEMOGLOBIN 11.5 g/dl (14.0-18.0); LYMPHOCYTES # 1.2 10^3/ul (0.8-2.9); LYMPHOCYTES % 17.6 % (15.0-51.0); MEAN CORPUSCULAR HGB CONC 34.4 g/dl (32.0-37.0); MEAN CORPUSCULAR VOLUME 90.2 fl (82.0-101.0); MEAN PLATELET VOLUME 9.7 fl (7.4-10.4); MONOCYTE # 0.8 10^3/ul (0.3-0.9); MONOCYTES % 12.3 % (0.0-11.0); NEUTROPHIL # 4.2 10^3/ul (1.6-7.5); NEUTROPHILS % 61.2 % (39.0-77.0); PLATELET COUNT 147 10^3/UL (140-440); RED BLOOD COUNT 3.72 10^6/ul (4.70-6.10); RED CELL DISTRIBUTION WIDTH 16.2 % (11.5-14.5); UNCORRECTED WBC 6.9 10^3/ul (4.8-10.8); WHITE BLOOD COUNT 6.9 10^3/ul (4.8-10.8)
[2016-07-14 06:34] LABS: CONDITION 1; LH ANALYZER COMMENTS 1
[2016-07-14] MEDS: GABAPENTIN 300 MG CAP PO SCH ×2 (09:00→21:06)
[2016-07-14] MEDS: METOPROLOL (XL) 50 MG TAB PO SCH ×2 (09:00→21:07)
[2016-07-14] MEDS: ISOSORBIDE MONONITRATE(SR)60 MG TAB PO SCH (09:00)
--- NOTE | 2016-07-14 10:23 | PN ---
Date/Time of Note Date/Time of Note DATE: 07/14/16 TIME: 10:19 Assessment/Plan Lines/Catheters IV Catheter Type (from [facility]): Port-A-Cath Assessment/Plan Chief Complaint/Hosp Course -End-stage renal disease: It seems that the patient's left upper extremity fistula is functioning well. Recommend continue with his hemodialysis sessions via the fistula. Patient also had his recent Perm-A-Cath removed. From a vascular standpoint, we will continue his fistula surveillance as an outpatient. -Bilateral lower extremity atherosclerosis: It seems the patient 's noninvasive vascular study identified that he may have a stenosis in his superficial femoral artery. We will plan to obtain a CT angiography in order to better delineate the findings. His complaints do not necessarily correlate with disabling claudication or rest pain. However, the patient has been atypical in his presentations with his atherosclerotic disease. Further, he does complain that since has had the previous cardiac catheterizations has via his right groin, he has developed what seems to be musculocutaneous numbness and decreased sensation along his right upper thigh extending to the medial aspect of the groin and his right scrotum. Will further evaluate the anatomy in regards to that. -Optimize vascular status (BP meds, diet, nutrition, exercise, sugar control, antiplatelets). -Discussed findings with plan and management with the patient and he understands. -Thank you for allowing us to partake in the care of your patient. Please call with any questions. Problems: Subjective 24 Hr Interval Summary no new vascular events overnight. tolerating HD Exam/Review of Systems Vital Signs Vitals Vital Signs Date Time Temp Pulse Resp B/P Pulse Ox O2 Delivery O2 Flow Rate FiO2 07/14/16 08:07 98.4 77 20 133/82 97 Intake and Output 07/13/16 07/13/16 07/14/16 14:59 22:59 06:59 Intake Total 1180 ml 920 ml Output Total 3300 ml 550 ml Balance -2120 ml 370 ml Exam Free Text/Dictation GENERAL: Alert and oriented x3. PULMONARY: Clear to auscultation bilaterally. CARDIOVASCULAR: S1, S2 present. ABDOMEN: Soft, nontender, nondistended. Bowel sounds positive. EXTREMITIES: Left upper extremity palpable brachial pulse. Motor, sensory intact. Capillary refill 2 to 3 seconds. Surgical scars all well healed. Tattoo along the whole arm. fistula with bruit and thrill present, inadequate. Right lower extremity palpable femoral pulse, palpable pedal pulse. Motor and sensory intact. Capillary refill 3 seconds Left lower extremity palpable femoral pulse, faint pedal pulse. Motor and sensory intact. Capillary refill 2 to 3 seconds Results Result Diagram: 07/14/16 0443 07/14/16 0443 JOE BARR MD Jul 14, 2016 10:22
[2016-07-14] MEDS ORDERED: IODIXANOL LOCM 50 ML BTL ONE (10:26)
[2016-07-14] MEDS ORDERED: SOD CHLORIDE 0.9% 100 ML ONE (10:26)
[2016-07-14] MEDS ORDERED: IODIXANOL LOCM 100 ML BTL ONE (10:26)
[2016-07-14] MEDS: ASPIRIN (EC) 81 MG TAB PO SCH (12:07)
[2016-07-14] MEDS: CHOLESTYRAMINE (LIGHT) 4 GM PACKET PO SCH ×2 (12:07→21:00)
[2016-07-14] MEDS: PRASUGREL HYDROCHLORIDE 10 MG TABLET PO SCH (12:07)
[2016-07-14] MEDS: LACTOBACILLUS CHEW TAB PO SCH ×3 (12:07→21:06)
[2016-07-14] MEDS: SEVELAMER 800 MG TAB PO SCH ×3 (12:08→18:15)
[2016-07-14] MEDS: CALCIUM ACETATE 667 MG CAP PO SCH ×3 (12:09→18:15)
--- NOTE | 2016-07-14 13:36 | CONS ---
Date/Time of Note Date/Time of Note DATE: 07/14/16 TIME: 13:25 Consult Date/Type/Reason Admit Date/Time Jul 11, 2016 at 12:19 Initial Consult Date Type of Consultation: GI Subjective Feels that Gabapentin may be taking the "edge" of the pain. No drowsiness with the Gabapentin. Last PM took 600 mg. No new other complaints. Objective Alert, oriented. Skin without acute lesions. HEENT without acute oral or ocular lesions. Neck supple. Chest clear. Heart RRR Abd Soft. Extremities without change. No synovitis. Vital Signs Date Time Temp Pulse Resp B/P Pulse Ox O2 Delivery O2 Flow Rate FiO2 07/14/16 08:07 98.4 77 20 133/82 97 Intake and Output 07/13/16 07/13/16 07/14/16 15:00 23:00 07:00 Intake Total 1180 ml 920 ml Output Total 3300 ml 550 ml Balance -2120 ml 370 ml Results/Medications Result Diagram: 07/14/16 0443 07/14/16 0443 Results 24 hrs Laboratory Tests Test 07/13/16 15:01 07/13/16 17:07 07/13/16 19:42 07/13/16 23:13 Bedside Glucose 126 122 90 95 Test 07/14/16 04:43 07/14/16 07:52 07/14/16 11:52 Alanine Aminotransferase (ALT/SGPT) 50 Albumin 3.3 Albumin/Globulin Ratio 1.10 Alkaline Phosphatase 228 H Anion Gap 18 H Aspartate Amino Transf (AST/SGOT) 29 Basophils # 0.0 Basophils % 0.5 Blood Morphology Comment Blood Urea Nitrogen 49 H Calcium Level 8.0 L Carbon Dioxide Level 24 Chloride Level 99 Creatinine 4.95 H Direct Bilirubin 0.00 Eosinophils # 0.6 H Eosinophils % 8.4 H Globulin 3.00 Glucose Level 173 Hematocrit 33.5 L Hemoglobin 11.5 L Indirect Bilirubin 0.2 Lymphocytes # 1.2 Lymphocytes % 17.6 Mean Corpuscular Hemoglobin 31.0 Mean Corpuscular Hemoglobin Concent 34.4 Mean Corpuscular Volume 90.2 Mean Platelet Volume 9.7 Monocytes # 0.8 Monocytes % 12.3 H Neutrophils # 4.2 Neutrophils % 61.2 Nucleated Red Blood Cells # 0.0 Nucleated Red Blood Cells % 0.0 Platelet Count 147 Potassium Level 5.8 H Red Blood Count 3.72 L Red Cell Distribution Width 16.2 H Sodium Level 135 Total Bilirubin 0.2 Total Protein 6.3 White Blood Count 6.9 Bedside Glucose 203 135 Lumbar spine X rays show marked dextroscoliosis (which patient states he didn't know about). Also vascular calcification and osteopenia. Medications Current Medications Hydromorphone HCl (Dilaudid) 1 mg Q3 PRN IV PAIN Last administered on 12:06; Admin Dose 1 MG; Start 07/09/16 at 17:00 Diphenhydramine HCl (Benadryl) 50 mg Q6H PRN IV ITCHING Last administered on 12:07; Admin Dose 50 MG; Start 07/09/16 at 17:00 Non-Formulary Medication (Non-Formulary Insulin) INSULIN PUMP see la... [id number] Last administered on 07/14/16 12:00; Admin Dose 5 UNIT; Start 07/09/16 at 19:45 Non-Formulary Medication (Non-Formulary Insulin) INSULIN PUMP see la... HS SC Last administered on 07/11/16 21:00; Admin Dose 2 UNIT; Start 07/09/16 at 21:00 Miscellaneous Information 1 ea NOTE XX ; Start 07/09/16 at 18:30 Glucose (Glutose) 15 gm Q15M PRN PO DECREASED GLUCOSE; Start 07/09/16 at 18:30 Glucose (Glutose) 22.5 gm Q15M PRN PO DECREASED GLUCOSE; Start 07/09/16 at 18: 30 Dextrose (D50w Syringe) 25 ml Q15M PRN IV DECREASED GLUCOSE; Start 07/09/16 at 18:30 Dextrose (D50w Syringe) 50 ml Q15M PRN IV DECREASED GLUCOSE; Start 07/09/16 at 18:30 Glucagon (Glucagen) 1 mg Q15M PRN IM DECREASED GLUCOSE; Start 07/09/16 at 18:30 Glucose (Glutose) 15 gm Q15M PRN BUCCAL DECREASED GLUCOSE; Start 07/09/16 at 18 :30 Aspirin (Halfprin) 81 mg DAILY PO Last administered on 07/14/16 12:07; Admin Dose 81 MG; Start 07/10/16 at 09:00 Atorvastatin Calcium (Lipitor) 80 mg QHS PO Last administered on 07/13/16 21: 04; Admin Dose 80 MG; Start 07/10/16 at 21:00 Clonidine (Catapres) 0.1 mg Q6 PO Last administered on 07/13/16 06:01; Admin Dose 0.1 MG; Start 07/10/16 at 12:00 Isosorbide Mononitrate (Imdur) 60 mg DAILY PO Last administered on 07/13/16 08 :27; Admin Dose 60 MG; Start 07/10/16 at 10:00 Lactobacillus Acidoph/Bulgaricus (Floranex) 1 tab TID PO Last administered on 12:07; Admin Dose 1 TAB; Start 07/10/16 at 09:00 Metoprolol Succinate (Toprol Xl) 50 mg BID PO Last administered on 07/13/16 21 :05; Admin Dose 50 MG; Start 07/10/16 at 10:00 Pramipexole (Mirapex) 0.25 mg HS PO Last administered on 07/13/16 21:04; Admin Dose 0.25 MG; Start 07/10/16 at 21:00 Prasugrel (Effient) 10 mg DAILY PO Last administered on 07/14/16 12:07; Admin Dose 10 MG; Start 07/10/16 at 10:30 Acetaminophen (Tylenol Tab) 500 mg Q4H PRN PO PAIN AND OR ELEVATED TEMP; Start 07/10/16 at 09:00 Ondansetron HCl (Zofran Inj) 4 mg Q6H PRN IV NAUSEA AND/OR VOMITING Last administered on 07/11/16 12:04; Admin Dose 4 MG; Start 07/10/16 at 09:00 Vancomycin HCl (Vancomycin Oral Syringe) 125 mg Q6 PO Last administered on 07/14 12:18; Admin Dose 125 MG; Start 07/10/16 at 12:00 Cholestyramine Resin (Questran Light) 4 gm BID PO Last administered on 12:07; Admin Dose 4 GM; Start 07/11/16 at 09:00 Gabapentin (Neurontin) 600 mg TID PO ; Start 07/14/16 at 21:00 Assessment/Plan Chief Complaint/Hosp Course 1. Increase Gabapentin to 600 mg tid. 2. MRI of lumbar spine to rule out radiculopathy. Problems: ENMA GRAHAM MD Jul 14, 2016 13:36
--- NOTE | 2016-07-14 13:50 | CONS ---
Date/Time of Note Date/Time of Note DATE: 07/14/16 TIME: 13:42 Assessment/Plan Assessment/Plan Chief Complaint/Hosp Course #1 end-stage renal disease, on maintenance hemodialysis Thursday. He had a CT angiogram today . I will order dialysis for today and tomorrow . #2 bilateral foot pain.He has a high grade stenosis in the L superfiscial femoral artery #3 anemia. He is receiving a 2 unit unit blood transfusion today. There is no history of blood loss.will order stool for OB #4 hyperkalemia , potassium is high today . I will try to have pharmacy order [place] for hyperkalemia Problems: Consultation Date/Type/Reason Admit Date/Time Jul 11, 2016 at 12:19 Type of Consultation: GI 24 HR Interval Summary Free Text/Dictation He says that he is still having pain in his feet . he had a CT angiogram of lower extremeties to evaluate for vascular disease . Exam/Review of Systems Vital Signs Vitals Vital Signs Date Time Temp Pulse Resp B/P Pulse Ox O2 Delivery O2 Flow Rate FiO2 07/14/16 08:07 98.4 77 20 133/82 97 Intake and Output 07/13/16 07/13/16 07/14/16 15:00 23:00 07:00 Intake Total 1180 ml 920 ml Output Total 3300 ml 550 ml Balance -2120 ml 370 ml Exam Constitutional: alert, oriented, well developed Psych: nl mood/affect, no complaints Neck: non-tender, supple Respiratory: clear to auscultation, normal air movement Cardiovascular: nl pulses, regular rate and rhythm Gastrointestinal: soft Musculoskeletal: nl extremities to inspection Results Result Diagram: 07/14/16 0443 07/14/16 0443 Results 24 hrs Laboratory Tests Test 07/13/16 15:01 07/13/16 17:07 07/13/16 19:42 07/13/16 23:13 Bedside Glucose 126 122 90 95 Test 07/14/16 04:43 07/14/16 07:52 07/14/16 11:52 Alanine Aminotransferase (ALT/SGPT) 50 Albumin 3.3 Albumin/Globulin Ratio 1.10 Alkaline Phosphatase 228 H Anion Gap 18 H Aspartate Amino Transf (AST/SGOT) 29 Basophils # 0.0 Basophils % 0.5 Blood Morphology Comment Blood Urea Nitrogen 49 H Calcium Level 8.0 L Carbon Dioxide Level 24 Chloride Level 99 Creatinine 4.95 H Direct Bilirubin 0.00 Eosinophils # 0.6 H Eosinophils % 8.4 H Globulin 3.00 Glucose Level 173 Hematocrit 33.5 L Hemoglobin 11.5 L Indirect Bilirubin 0.2 Lymphocytes # 1.2 Lymphocytes % 17.6 Mean Corpuscular Hemoglobin 31.0 Mean Corpuscular Hemoglobin Concent 34.4 Mean Corpuscular Volume 90.2 Mean Platelet Volume 9.7 Monocytes # 0.8 Monocytes % 12.3 H Neutrophils # 4.2 Neutrophils % 61.2 Nucleated Red Blood Cells # 0.0 Nucleated Red Blood Cells % 0.0 Platelet Count 147 Potassium Level 5.8 H Red Blood Count 3.72 L Red Cell Distribution Width 16.2 H Sodium Level 135 Total Bilirubin 0.2 Total Protein 6.3 White Blood Count 6.9 Bedside Glucose 203 135 Medications Medications Current Medications Hydromorphone HCl (Dilaudid) 1 mg Q3 PRN IV PAIN Last administered on 12:06; Admin Dose 1 MG; Start 07/09/16 at 17:00 Diphenhydramine HCl (Benadryl) 50 mg Q6H PRN IV ITCHING Last administered on 12:07; Admin Dose 50 MG; Start 07/09/16 at 17:00 Non-Formulary Medication (Non-Formulary Insulin) INSULIN PUMP see la... [id number] Last administered on 07/14/16 12:00; Admin Dose 5 UNIT; Start 07/09/16 at 19:45 Non-Formulary Medication (Non-Formulary Insulin) INSULIN PUMP see la... HS SC Last administered on 07/11/16 21:00; Admin Dose 2 UNIT; Start 07/09/16 at 21:00 Miscellaneous Information 1 ea NOTE XX ; Start 07/09/16 at 18:30 Glucose (Glutose) 15 gm Q15M PRN PO DECREASED GLUCOSE; Start 07/09/16 at 18:30 Glucose (Glutose) 22.5 gm Q15M PRN PO DECREASED GLUCOSE; Start 07/09/16 at 18: 30 Dextrose (D50w Syringe) 25 ml Q15M PRN IV DECREASED GLUCOSE; Start 07/09/16 at 18:30 Dextrose (D50w Syringe) 50 ml Q15M PRN IV DECREASED GLUCOSE; Start 07/09/16 at 18:30 Glucagon (Glucagen) 1 mg Q15M PRN IM DECREASED GLUCOSE; Start 07/09/16 at 18:30 Glucose (Glutose) 15 gm Q15M PRN BUCCAL DECREASED GLUCOSE; Start 07/09/16 at 18 :30 Aspirin (Halfprin) 81 mg DAILY PO Last administered on 07/14/16 12:07; Admin Dose 81 MG; Start 07/10/16 at 09:00 Atorvastatin Calcium (Lipitor) 80 mg QHS PO Last administered on 07/13/16 21: 04; Admin Dose 80 MG; Start 07/10/16 at 21:00 Clonidine (Catapres) 0.1 mg Q6 PO Last administered on 07/13/16 06:01; Admin Dose 0.1 MG; Start 07/10/16 at 12:00 Isosorbide Mononitrate (Imdur) 60 mg DAILY PO Last administered on 07/13/16 08 :27; Admin Dose 60 MG; Start 07/10/16 at 10:00 Lactobacillus Acidoph/Bulgaricus (Floranex) 1 tab TID PO Last administered on 12:07; Admin Dose 1 TAB; Start 07/10/16 at 09:00 Metoprolol Succinate (Toprol Xl) 50 mg BID PO Last administered on 07/13/16 21 :05; Admin Dose 50 MG; Start 07/10/16 at 10:00 Pramipexole (Mirapex) 0.25 mg HS PO Last administered on 07/13/16 21:04; Admin Dose 0.25 MG; Start 07/10/16 at 21:00 Prasugrel (Effient) 10 mg DAILY PO Last administered on 07/14/16 12:07; Admin Dose 10 MG; Start 07/10/16 at 10:30 Acetaminophen (Tylenol Tab) 500 mg Q4H PRN PO PAIN AND OR ELEVATED TEMP; Start 07/10/16 at 09:00 Ondansetron HCl (Zofran Inj) 4 mg Q6H PRN IV NAUSEA AND/OR VOMITING Last administered on 07/11/16 12:04; Admin Dose 4 MG; Start 07/10/16 at 09:00 Vancomycin HCl (Vancomycin Oral Syringe) 125 mg Q6 PO Last administered on 07/14 12:18; Admin Dose 125 MG; Start 07/10/16 at 12:00 Cholestyramine Resin (Questran Light) 4 gm BID PO Last administered on 12:07; Admin Dose 4 GM; Start 07/11/16 at 09:00 Gabapentin (Neurontin) 600 mg TID PO ; Start 07/14/16 at 21:00 DONY HOWARD MD Jul 14, 2016 13:50
[2016-07-14] MEDS: DIPHENHYDRAMINE 50 MG INJ IV SCH (15:12)
[2016-07-14] MEDS: LORAZEPAM 2 MG INJ IV SCH (15:12)
--- NOTE | 2016-07-14 16:11 | CONS ---
Date/Time of Note Date/Time of Note DATE: 07/14/16 TIME: 16:11 Assessment/Plan Assessment/Plan Additional Assessment/Plan Chief Complaint/Hosp Course IMPRESSION: 1. Diarrhea. 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 Improved after Questran restarted. C. diff negative. 2. Diabetes mellitus. 3. Renal failure. 4. Coronary artery disease. 5. Hypertension. PLAN: 1. Continue Questran 2. if diarrhea do not improve, can titrate up Questran 3. can also consider colonoscopy to r/o microscopic colitis if diarrhea do not improve. 4. finish 14 day course of oral vancomycin Consultation Date/Type/Reason Admit Date/Time Jul 11, 2016 at 12:19 Initial Consult Date Type of Consultation: GI 24 HR Interval Summary Constitutional: improved Exam/Review of Systems Vital Signs Vitals Vital Signs Date Time Temp Pulse Resp B/P Pulse Ox O2 Delivery O2 Flow Rate FiO2 07/14/16 08:07 98.4 77 20 133/82 97 Intake and Output 07/13/16 07/13/16 07/14/16 15:00 23:00 07:00 Intake Total 1180 ml 920 ml Output Total 3300 ml 550 ml Balance -2120 ml 370 ml Exam Constitutional: alert, oriented, well developed Psych: nl mood/affect, no complaints Head: atraumatic, normocephalic Eyes: EOMI, PERRL, nl conjunctiva, nl lids, nl sclera ENMT: nl external ears & nose, nl lips & teeth, nl nasal mucosa & septum Neck: non-tender, supple Respiratory: clear to auscultation, normal air movement Cardiovascular: nl pulses, regular rate and rhythm Gastrointestinal: nl liver, spleen, non-tender, soft Musculoskeletal: nl extremities to inspection, nl gait and stance Extremities: normal pulses 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: VEHICLE DISMANTLER II-XII intact, nl mental status, nl speech, nl strength Skin: nl turgor, No rash or lesions Lymph: nl lymph nodes Results Result Diagram: 07/14/16 0443 07/14/163 Results 24 hrs Laboratory Tests Test 07/13/16 17:07 07/13/16 19:42 07/13/16 23:13 07/14/16 04:43 Bedside Glucose 122 90 95 Alanine Aminotransferase (ALT/SGPT) 50 Albumin 3.3 Albumin/Globulin Ratio 1.10 Alkaline Phosphatase 228 H Anion Gap 18 H Aspartate Amino Transf (AST/SGOT) 29 Basophils # 0.0 Basophils % 0.5 Blood Morphology Comment Blood Urea Nitrogen 49 H Calcium Level 8.0 L Carbon Dioxide Level 24 Chloride Level 99 Creatinine 4.95 H Direct Bilirubin 0.00 Eosinophils # 0.6 H Eosinophils % 8.4 H Globulin 3.00 Glucose Level 173 Hematocrit 33.5 L Hemoglobin 11.5 L Indirect Bilirubin 0.2 Lymphocytes # 1.2 Lymphocytes % 17.6 Mean Corpuscular Hemoglobin 31.0 Mean Corpuscular Hemoglobin Concent 34.4 Mean Corpuscular Volume 90.2 Mean Platelet Volume 9.7 Monocytes # 0.8 Monocytes % 12.3 H Neutrophils # 4.2 Neutrophils % 61.2 Nucleated Red Blood Cells # 0.0 Nucleated Red Blood Cells % 0.0 Platelet Count 147 Potassium Level 5.8 H Red Blood Count 3.72 L Red Cell Distribution Width 16.2 H Sodium Level 135 Total Bilirubin 0.2 Total Protein 6.3 White Blood Count 6.9 Test 07/14/16 07:52 07/14/16 11:52 Bedside Glucose 203 135 Medications Medications Current Medications Hydromorphone HCl (Dilaudid) 1 mg Q3 PRN IV PAIN Last administered on 15:14; Admin Dose 1 MG; Start 07/09/16 at 17:00 Diphenhydramine HCl (Benadryl) 50 mg Q6H PRN IV ITCHING Last administered on 12:07; Admin Dose 50 MG; Start 07/09/16 at 17:00 Non-Formulary Medication (Non-Formulary Insulin) INSULIN PUMP see la... [id number] Last administered on 07/14/16 12:00; Admin Dose 5 UNIT; Start 07/09/16 at 19:45 Non-Formulary Medication (Non-Formulary Insulin) INSULIN PUMP see la... HS SC Last administered on 07/11/16 21:00; Admin Dose 2 UNIT; Start 07/09/16 at 21:00 Miscellaneous Information 1 ea NOTE XX ; Start 07/09/16 at 18:30 Glucose (Glutose) 15 gm Q15M PRN PO DECREASED GLUCOSE; Start 07/09/16 at 18:30 Glucose (Glutose) 22.5 gm Q15M PRN PO DECREASED GLUCOSE; Start 07/09/16 at 18: 30 Dextrose (D50w Syringe) 25 ml Q15M PRN IV DECREASED GLUCOSE; Start 07/09/16 at 18:30 Dextrose (D50w Syringe) 50 ml Q15M PRN IV DECREASED GLUCOSE; Start 07/09/16 at 18:30 Glucagon (Glucagen) 1 mg Q15M PRN IM DECREASED GLUCOSE; Start 07/09/16 at 18:30 Glucose (Glutose) 15 gm Q15M PRN BUCCAL DECREASED GLUCOSE; Start 07/09/16 at 18 :30 Aspirin (Halfprin) 81 mg DAILY PO Last administered on 07/14/16 12:07; Admin Dose 81 MG; Start 07/10/16 at 09:00 Atorvastatin Calcium (Lipitor) 80 mg QHS PO Last administered on 07/13/16 21: 04; Admin Dose 80 MG; Start 07/10/16 at 21:00 Clonidine (Catapres) 0.1 mg Q6 PO Last administered on 07/13/16 06:01; Admin Dose 0.1 MG; Start 07/10/16 at 12:00 Isosorbide Mononitrate (Imdur) 60 mg DAILY PO Last administered on 07/13/16 08 :27; Admin Dose 60 MG; Start 07/10/16 at 10:00 Lactobacillus Acidoph/Bulgaricus (Floranex) 1 tab TID PO Last administered on 12:07; Admin Dose 1 TAB; Start 07/10/16 at 09:00 Metoprolol Succinate (Toprol Xl) 50 mg BID PO Last administered on 07/13/16 21 :05; Admin Dose 50 MG; Start 07/10/16 at 10:00 Pramipexole (Mirapex) 0.25 mg HS PO Last administered on 07/13/16 21:04; Admin Dose 0.25 MG; Start 07/10/16 at 21:00 Prasugrel (Effient) 10 mg DAILY PO Last administered on 07/14/16 12:07; Admin Dose 10 MG; Start 07/10/16 at 10:30 Acetaminophen (Tylenol Tab) 500 mg Q4H PRN PO PAIN AND OR ELEVATED TEMP; Start 07/10/16 at 09:00 Ondansetron HCl (Zofran Inj) 4 mg Q6H PRN IV NAUSEA AND/OR VOMITING Last administered on 07/11/16 12:04; Admin Dose 4 MG; Start 07/10/16 at 09:00 Vancomycin HCl (Vancomycin Oral Syringe) 125 mg Q6 PO Last administered on 07/14 12:18; Admin Dose 125 MG; Start 07/10/16 at 12:00 Cholestyramine Resin (Questran Light) 4 gm BID PO Last administered on 12:07; Admin Dose 4 GM; Start 07/11/16 at 09:00 Gabapentin (Neurontin) 600 mg TID PO ; Start 07/14/16 at 21:00 NIYAH REED MD Jul 14, 2016 16:11
--- NOTE | 2016-07-14 16:39 | PN ---
Date/Time of Note Date/Time of Note DATE: 07/14/16 TIME: 16:37 Assessment/Plan VTE Prophylaxis VTE Prophylaxis Intervention: SCD's Lines/Catheters IV [facility] Type [facility] brian cath Assessment/Plan Chief Complaint/Hosp Course ASSESSMENT AND PLAN: 1. Diarrhea with recent history of Clostridium difficile colitis. Continue patient on vancomycin and Questran. Dr. Gomez is following in gastroenterology consultation 2. Dehydration secondary to diarrhea with recent history of Clostridium difficile colitis. Continue IV fluids. 3. Type 1 diabetes mellitus with diabetic nephropathy. Continue NovoLog per insulin pump. 4. End-stage renal disease, hemodialysis dependent. Dr. Hubbard is following the patient in nephrology consultation. We will continue dialysis per schedule. 5. Coronary artery disease. 6. Hypertension. 7. Bilateral lower extremities pain. Dr. Orosco is following and rheumatology consultation. 8. Mid left superficial artery stenosis. is following in vascular surgery consultation. Pending CT angiography. Continue heparin for deep venous thrombosis prophylaxis and Pepcid for peptic ulcer disease prophylaxis. Further recommendations based on clinical course. Plan of care discussed with Dr. Rosales. Problems: Subjective 24 Hr Interval Summary Free Text/Dictation Patient is undergoing hemodialysis, no fever nausea vomiting, pending CT angiogram. Exam/Review of Systems Vital Signs Vitals Vital Signs Date Time Temp Pulse Resp B/P Pulse Ox O2 Delivery O2 Flow Rate FiO2 07/14/16 08:07 98.4 77 20 133/82 97 Intake and Output 07/13/16 07/13/16 07/14/16 15:00 23:00 07:00 Intake Total 1180 ml 920 ml Output Total 3300 ml 550 ml Balance -2120 ml 370 ml Exam GENERAL: Well-developed, well-nourished male, currently appears pale, awake, alert. HEENT: The patient has right eye prosthesis. Left pupil is equal, round, reactive to light and accommodation. NECK: Supple. No cervical lymphadenopathy, no thyromegaly. CHEST: Lungs clear bilaterally. There are no rhonchi, wheezes, rales noted. CARDIOVASCULAR: Normal S1, S2. No murmurs, gallops, clicks, rubs noted. ABDOMEN: Flat, soft, nondistended. The patient has generalized tenderness to epigastric tenderness on palpation. No guarding. EXTREMITIES: No edema, clubbing, cyanosis. Left upper extremity AV graft with a palpable thrill and audible bruit. SKIN: No rash, petechiae noted. NEUROLOGIC: The patient is awake, alert, and oriented x3. Results Result Diagram: 07/14/16 0443 07/14/16 0443 Results 24 hrs Laboratory Tests Test 07/13/16 17:07 07/13/16 19:42 07/13/16 23:13 07/14/16 04:43 Bedside Glucose 122 90 95 Alanine Aminotransferase (ALT/SGPT) 50 Albumin 3.3 Albumin/Globulin Ratio 1.10 Alkaline Phosphatase 228 H Anion Gap 18 H Aspartate Amino Transf (AST/SGOT) 29 Basophils # 0.0 Basophils % 0.5 Blood Morphology Comment Blood Urea Nitrogen 49 H Calcium Level 8.0 L Carbon Dioxide Level 24 Chloride Level 99 Creatinine 4.95 H Direct Bilirubin 0.00 Eosinophils # 0.6 H Eosinophils % 8.4 H Globulin 3.00 Glucose Level 173 Hematocrit 33.5 L Hemoglobin 11.5 L Indirect Bilirubin 0.2 Lymphocytes # 1.2 Lymphocytes % 17.6 Mean Corpuscular Hemoglobin 31.0 Mean Corpuscular Hemoglobin Concent 34.4 Mean Corpuscular Volume 90.2 Mean Platelet Volume 9.7 Monocytes # 0.8 Monocytes % 12.3 H Neutrophils # 4.2 Neutrophils % 61.2 Nucleated Red Blood Cells # 0.0 Nucleated Red Blood Cells % 0.0 Platelet Count 147 Potassium Level 5.8 H Red Blood Count 3.72 L Red Cell Distribution Width 16.2 H Sodium Level 135 Total Bilirubin 0.2 Total Protein 6.3 White Blood Count 6.9 Test 07/14/16 07:52 07/14/16 11:52 Bedside Glucose 203 135 Medications Medications Current Medications Hydromorphone HCl (Dilaudid) 1 mg Q3 PRN IV PAIN Last administered on 15:14; Admin Dose 1 MG; Start 07/09/16 at 17:00 Diphenhydramine HCl (Benadryl) 50 mg Q6H PRN IV ITCHING Last administered on 12:07; Admin Dose 50 MG; Start 07/09/16 at 17:00 Non-Formulary Medication (Non-Formulary Insulin) INSULIN PUMP see la... [id number] Last administered on 07/14/16 12:00; Admin Dose 5 UNIT; Start 07/09/16 at 19:45 Non-Formulary Medication (Non-Formulary Insulin) INSULIN PUMP see la... HS SC Last administered on 07/11/16 21:00; Admin Dose 2 UNIT; Start 07/09/16 at 21:00 Miscellaneous Information 1 ea NOTE XX ; Start 07/09/16 at 18:30 Glucose (Glutose) 15 gm Q15M PRN PO DECREASED GLUCOSE; Start 07/09/16 at 18:30 Glucose (Glutose) 22.5 gm Q15M PRN PO DECREASED GLUCOSE; Start 07/09/16 at 18: 30 Dextrose (D50w Syringe) 25 ml Q15M PRN IV DECREASED GLUCOSE; Start 07/09/16 at 18:30 Dextrose (D50w Syringe) 50 ml Q15M PRN IV DECREASED GLUCOSE; Start 07/09/16 at 18:30 Glucagon (Glucagen) 1 mg Q15M PRN IM DECREASED GLUCOSE; Start 07/09/16 at 18:30 Glucose (Glutose) 15 gm Q15M PRN BUCCAL DECREASED GLUCOSE; Start 07/09/16 at 18 :30 Aspirin (Halfprin) 81 mg DAILY PO Last administered on 07/14/16 12:07; Admin Dose 81 MG; Start 07/10/16 at 09:00 Atorvastatin Calcium (Lipitor) 80 mg QHS PO Last administered on 07/13/16 21: 04; Admin Dose 80 MG; Start 07/10/16 at 21:00 Clonidine (Catapres) 0.1 mg Q6 PO Last administered on 07/13/16 06:01; Admin Dose 0.1 MG; Start 07/10/16 at 12:00 Isosorbide Mononitrate (Imdur) 60 mg DAILY PO Last administered on 07/13/16 08 :27; Admin Dose 60 MG; Start 07/10/16 at 10:00 Lactobacillus Acidoph/Bulgaricus (Floranex) 1 tab TID PO Last administered on 12:07; Admin Dose 1 TAB; Start 07/10/16 at 09:00 Metoprolol Succinate (Toprol Xl) 50 mg BID PO Last administered on 07/13/16 21 :05; Admin Dose 50 MG; Start 07/10/16 at 10:00 Pramipexole (Mirapex) 0.25 mg HS PO Last administered on 07/13/16 21:04; Admin Dose 0.25 MG; Start 07/10/16 at 21:00 Prasugrel (Effient) 10 mg DAILY PO Last administered on 07/14/16 12:07; Admin Dose 10 MG; Start 07/10/16 at 10:30 Acetaminophen (Tylenol Tab) 500 mg Q4H PRN PO PAIN AND OR ELEVATED TEMP; Start 07/10/16 at 09:00 Ondansetron HCl (Zofran Inj) 4 mg Q6H PRN IV NAUSEA AND/OR VOMITING Last administered on 07/11/16 12:04; Admin Dose 4 MG; Start 07/10/16 at 09:00 Vancomycin HCl (Vancomycin Oral Syringe) 125 mg Q6 PO Last administered on 07/14 12:18; Admin Dose 125 MG; Start 07/10/16 at 12:00 Cholestyramine Resin (Questran Light) 4 gm BID PO Last administered on 12:07; Admin Dose 4 GM; Start 07/11/16 at 09:00 Gabapentin (Neurontin) 600 mg TID PO ; Start 07/14/16 at 21:00 ANGELINA CASTREJON Jul 14, 2016 16:39
--- NOTE | 2016-07-14 17:53 | RADRPT ---
PROCEDURE: CTA abdomen and pelvis with bilateral lower extremity runoff CLINICAL INDICATION: Lower extremity pain and claudication TECHNIQUE: 0.63 mm axial images were obtained through the abdomen, pelvis and bilateral lower extr emities after the IV administration of 125 cc Visipaque 320 IV contrast. 3-D, coronal and sagittal reconstructions were obtained. Automated exposure control was utilized. DLP = 1178.0 mGy-cm. CTDiVo l = 131.5, 8.5 mGy. COMPARISON: CT abdomen and pelvis January 14, 2016 and lower extremity arterial ultrasound June 162016 FINDINGS: CTA abdomen/pelvis: The abdominal aorta is patent throughout its entirety. Mild scattered calcified and noncalcified at herosclerotic disease is identified throughout the abdominal aorta. No aneurysm or stenosis is obse rved. The origin of the celiac artery is widely patent. Mild calcified and noncalcified atherosclerosis i s identified throughout the celiac artery. Moderate to high-grade stenosis (50 - 75%) is identified at the origin of the splenic artery. Normal filling of the visualized distal branches of the brandon c artery is observed. The origin of the superior mesenteric artery is widely patent. Minimal scattered calcified atherosc lerosis is identified in the distal superior mesenteric artery and few superior mesenteric artery br anches. Normal filling of the visualized distal branches of the superior mesenteric artery is obser joo Origins of bilateral renal arteries are widely patent. Calcified and noncalcified atherosclerosis i n the proximal right renal artery causes focal moderate to high-grade stenosis (50 - 75%). Scattere d mild calcified atherosclerosis is seen in the distal left renal artery. Noncalcified disease is i dentified within a few of the proximal branches of the left renal artery and causes moderate to high -grade stenosis of these proximal branches (50 - 75%). Origin of the inferior mesenteric artery is widely patent. Minimal scattered calcified atherosclero sis is seen in the proximal inferior mesenteric artery. Normal filling of the visualized distal bra nches of the inferior mesenteric artery is observed. Patent aortic bifurcation is observed. Scattered mild calcified atherosclerosis is identified throu ghout the bilateral common iliac arteries, without significant narrowing of the patent lumen. Paten t bilateral common iliac artery bifurcations are identified. Noncalcified atherosclerosis at the or igins of the bilateral internal iliac arteries causes moderate (50%) stenosis of the bilateral origi ns. Scattered mild calcified atherosclerosis is seen throughout the right external iliac and common femo ral arteries. Scattered mild calcified and noncalcified atherosclerosis is seen throughout the left external iliac and common femoral arteries. CTA right lower extremity: Patent right common femoral artery bifurcation is identified. Calcified and noncalcified atheroscle rotic disease causes multifocal areas of mild to moderate (30% and 50%) stenosis in the proximal and mid superficial femoral artery and causes multifocal areas of moderate and high-grade (50% and 75%) stenosis in the distal superficial femoral artery. Mild scattered noncalcified atherosclerosis is seen in the [id number] popliteal artery. Noncalcified atherosclerosis causes focal moderate to high-grade (50 - 75%) stenosis at the level of the knee. Patent popliteal artery bifurcation, tibiop eroneal trunk and tibioperoneal trunk bifurcation are observed. Mild scattered calcified atheroscle rosis is noted in the tibioperoneal trunk. Scattered mild calcified and noncalcified atherosclerosis is seen in the proximal anterior tibial ar rober. The remainder of the vessel is widely patent and without disease to the ankle and foot, where it continues as the dorsalis pedis artery. Mild scattered calcified atherosclerosis is seen in the proximal dorsalis pedis artery. Minimal calcified atherosclerosis is seen in the proximal peroneal artery. The remainder of the ves baljinder widely patent and normal appearing to the ankle. Scattered mild calcified atherosclerosis is seen in the proximal and distal posterior tibial artery. The vessel appears widely patent through the ankle and into the proximal foot. CTA left lower extremity: Patent left common femoral artery bifurcation is identified. Scattered calcified and noncalcified a therosclerosis throughout the left superficial femoral artery causes multifocal areas of moderate an d high-grade (50% and 75%) stenosis throughout the superficial femoral artery. Noncalcified atheros clerosis causes focal moderate (50%) stenosis in the popliteal artery at the level of the knee. Sca ttered mild disease is seen throughout the remainder of the popliteal artery. Patent popliteal anita ry bifurcation, tibioperoneal trunk and tibioperoneal trunk bifurcation are identified. Calcified a nd noncalcified atherosclerosis causes multifocal mild to moderate (30 - 50%) stenoses in the tibiop eroneal trunk. Calcified and noncalcified atherosclerosis causes multifocal moderate and high-grade (5th percent a nd 75%) stenosis in the proximal anterior tibial artery. Mild calcified atherosclerosis is identifi ed in the distal anterior tibial artery. Anterior tibial artery maintains patency to the ankle and foot, where it continues as a patent dorsalis pedis artery. Mild calcified atherosclerosis is seen in the proximal peroneal artery. Peroneal artery maintains p atency to the ankle. Mild scattered calcified atherosclerosis is seen throughout the posterior tibial artery. The professional development manager ior tibial artery maintains patency through the ankle and foot. CT Abdomen/pelvis: The visualized lower lungs are clear. Superior aspect of the liver is not included on the obtained images. The visualized liver has an un remarkable appearance. The gallbladder and pancreas have an unremarkable appearance. The superior aspect of the spleen was not included on the obtained images. The adrenal glands are unremarkable. The kidneys are slightly small appearing. The kidneys demonstrate symmetric enhancement. Scattered mild cortical scarring is noted in both kidneys. No obstructive uropathy is identified. The bladde r is filled with a small amount of urine. Mild thickening of the jaime of the bladder is unchanged The prostate is mildly prominent. Large amount of formed stool is identified throughout the colon. The appendix is normal. A few flu id filled, mildly dilated loops of small bowel measuring up to approximately 3.0 cm in diameter are identified in the abdomen. No distinct transition point is observed. The visualized stomach and du odenum are unremarkable. No intra-abdominal or pelvic free fluid or fluid collections are observed. No intra-abdominal or pe lvic lymphadenopathy is observed. Mild degenerative changes are seen in the spine. Mild subcutaneous fat stranding compatible with sc arring or mild bruising is seen over both hips. Small to moderate-sized, fat filled umbilical herni a is seen. Small, fat filled bilateral inguinal hernias are noted. CT Lower Extremities: Diffuse osteopenia is identified. The osseous structures of the lower extremities appear intact. N o destructive bony lesions are seen. Soft tissues surrounding the lower extremities are unremarkabl e. IMPRESSION: Moderate to high-grade stenosis at the origin of the splenic artery. Moderate to high-grade stenosis in the proximal right renal artery. Moderate to high-grade stenoses in a few of the proximal branches of the left renal artery. Scattered mild, moderate and high-grade stenoses in the right superficial femoral and popliteal anita gilbert. Patent three-vessel runoff through the ankle and foot on the right. Scattered moderate and high-grade stenoses in the left superficial femoral artery. Patent three-vessel runoff to the ankle and foot on the left. Stable mild thickening of the bladder wall. Finding may reflect the sequelae of prior inflammation/ infection or chronic bladder dysfunction. Mild prominence of the prostate. Correlation with PSA and physical exam is recommended. Large amount of formed stool throughout the colon compatible with constipation. Multiple mildly dilated, fluid-filled loops of small bowel in the abdomen, without distinct transiti on point. Finding could reflect mild small bowel ileus associated with constipation. If further ch aracterization is needed small bowel follow-through could be helpful. Degenerative changes in the spine and small to moderate-sized fat filled umbilical hernia and small, fat filled bilateral inguinal hernias. RPTAT: AA .Davian Man MD, MD Date Time Electronically viewed and signed by .Davian Man MD, MD on 07/14/2016 17:53 .P/
[2016-07-14] MEDS: ATORVASTATIN 80 MG TAB PO SCH (21:06)
[2016-07-14] MEDS: PRAMIPEXOLE 0.25 MG TAB PO SCH (21:06)
[2016-07-15] VITALS (11 sets, daily range): BP systolic 118–155; BP diastolic 72–88; PULSE 74–86; RESP 18–20
[2016-07-15] MEDS: VANCOMYCIN HCL 250 MG/5ML POSYG PO SCH ×5 (00:51→23:07)
[2016-07-15] MEDS: HYDROmorphONE 1 MG/ML SYG IV PRN ×8 (00:53→23:07)
[2016-07-15] MEDS: DIPHENHYDRAMINE 50 MG INJ IV PRN ×4 (01:12→20:01)
[2016-07-15 05:39] LABS: BASOPHILS % 0.6 % (0.0-2.0); EOSINOPHILS # 0.6 10^3/ul (0.0-0.5); EOSINOPHILS % 9.8 % (0.0-7.0); HEMATOCRIT 34.6 % (42.0-52.0); HEMOGLOBIN 11.5 g/dl (14.0-18.0); LYMPHOCYTES # 0.9 10^3/ul (0.8-2.9); LYMPHOCYTES % 14.8 % (15.0-51.0); MEAN CORPUSCULAR HEMOGLOBIN 30.4 pg (29.0-33.0); MEAN CORPUSCULAR HGB CONC 33.2 g/dl (32.0-37.0); MEAN CORPUSCULAR VOLUME 91.6 fl (82.0-101.0); MEAN PLATELET VOLUME 9.4 fl (7.4-10.4); MONOCYTE # 0.8 10^3/ul (0.3-0.9); MONOCYTES % 12.2 % (0.0-11.0); NEUTROPHIL # 3.9 10^3/ul (1.6-7.5); NEUTROPHILS % 62.6 % (39.0-77.0); PLATELET COUNT 164 10^3/UL (140-440); RED BLOOD COUNT 3.78 10^6/ul (4.70-6.10); RED CELL DISTRIBUTION WIDTH 16.3 % (11.5-14.5); UNCORRECTED WBC 6.3 10^3/ul (4.8-10.8); WHITE BLOOD COUNT 6.3 10^3/ul (4.8-10.8)
[2016-07-15 06:00] LABS: CONDITION 1; LH ANALYZER COMMENTS 1
[2016-07-15 06:07] LABS: CREATININE 5.16 mg/dl (0.61-1.24)
[2016-07-15 06:08] LABS: CALCIUM 8.1 mg/dl (8.4-10.2)
[2016-07-15 06:17] LABS: POTASSIUM 6.1 mmol/L (3.5-5.1)
[2016-07-15] MEDS: CHOLESTYRAMINE (LIGHT) 4 GM PACKET PO SCH ×2 (08:12→20:18)
[2016-07-15] MEDS: PRASUGREL HYDROCHLORIDE 10 MG TABLET PO SCH (08:13)
[2016-07-15] MEDS: GABAPENTIN 300 MG CAP PO SCH ×3 (08:13→20:15)
[2016-07-15] MEDS: CALCIUM ACETATE 667 MG CAP PO SCH ×3 (08:14→17:15)
[2016-07-15] MEDS: METOPROLOL (XL) 50 MG TAB PO SCH ×2 (08:14→20:16)
[2016-07-15] MEDS: ISOSORBIDE MONONITRATE(SR)60 MG TAB PO SCH (08:14)
[2016-07-15] MEDS: ASPIRIN (EC) 81 MG TAB PO SCH (08:14)
[2016-07-15] MEDS: LACTOBACILLUS CHEW TAB PO SCH ×3 (08:14→20:15)
[2016-07-15] MEDS: SEVELAMER 800 MG TAB PO SCH ×3 (08:14→17:15)
[2016-07-15] MEDS ORDERED: PANTOPRAZOLE 40 MG INJ IV ONE (10:30)
--- NOTE | 2016-07-15 13:39 | CONS ---
Date/Time of Note Date/Time of Note DATE: 07/15/16 TIME: 13:35 Assessment/Plan Assessment/Plan Chief Complaint/Hosp Course #1 end-stage renal disease, on maintenance hemodialysis Thursday. He had a CT angiogram today . I will order dialysis for today and tomorrow . #2 bilateral foot pain.He has a high grade stenosis in the L superfiscial femoral artery and other diffuse ASCVD , vascular W/U is in progress . #3 anemia. There is no history of blood loss.will order stool for OB #4 hyperkalemia , potassium is high today . I will try to have pharmacy order [place] for hyperkalemia Problems: Consultation Date/Type/Reason Admit Date/Time Jul 11, 2016 at 12:19 Type of Consultation: GI 24 HR Interval Summary Free Text/Dictation he is having less foot pain on gabapentin Exam/Review of Systems Vital Signs Vitals Vital Signs Date Time Temp Pulse Resp B/P Pulse Ox O2 Delivery O2 Flow Rate FiO2 07/15/16 07:43 98.3 76 20 155/88 96 Intake and Output 07/14/16 07/14/16 07/15/16 15:00 23:00 07:00 Intake Total 1120 ml 980 ml Output Total 3400 ml 500 ml Balance -2280 ml 480 ml Exam Constitutional: alert, oriented, well developed Psych: nl mood/affect, no complaints Respiratory: clear to auscultation, normal air movement Cardiovascular: nl pulses, regular rate and rhythm Gastrointestinal: soft Musculoskeletal: nl extremities to inspection Results Result Diagram: 07/15/16 0455 07/15/16 0455 Results 24 hrs Laboratory Tests Test 07/14/16 17:37 07/14/16 21:54 07/15/16 04:55 07/15/16 08:11 Bedside Glucose 155 83 164 Anion Gap 19 H Basophils # 0.0 Basophils % 0.6 Blood Morphology Comment Blood Urea Nitrogen 55 H Calcium Level 8.1 L Carbon Dioxide Level 24 Chloride Level 99 Creatinine 5.16 H Eosinophils # 0.6 H Eosinophils % 9.8 H Glucose Level 165 Hematocrit 34.6 L Hemoglobin 11.5 L Lymphocytes # 0.9 Lymphocytes % 14.8 L Mean Corpuscular Hemoglobin 30.4 Mean Corpuscular Hemoglobin Concent 33.2 Mean Corpuscular Volume 91.6 Mean Platelet Volume 9.4 Monocytes # 0.8 Monocytes % 12.2 H Neutrophils # 3.9 Neutrophils % 62.6 Nucleated Red Blood Cells # 0.0 Nucleated Red Blood Cells % 0.0 Platelet Count 164 Potassium Level 6.1 *H Red Blood Count 3.78 L Red Cell Distribution Width 16.3 H Sodium Level 136 White Blood Count 6.3 Test 07/15/16 12:14 Bedside Glucose 133 Medications Medications Current Medications Hydromorphone HCl (Dilaudid) 1 mg Q3 PRN IV PAIN Last administered on 12:46; Admin Dose 1 MG; Start 07/09/16 at 17:00 Diphenhydramine HCl (Benadryl) 50 mg Q6H PRN IV ITCHING Last administered on 12:47; Admin Dose 50 MG; Start 07/09/16 at 17:00 Non-Formulary Medication (Non-Formulary Insulin) INSULIN PUMP see la... [id number] Last administered on 07/15/16 13:31; Admin Dose 4.5 UNIT; Start 07/09/16 at 19:45 Non-Formulary Medication (Non-Formulary Insulin) INSULIN PUMP see la... HS SC Last administered on 07/11/16 21:00; Admin Dose 2 UNIT; Start 07/09/16 at 21:00 Miscellaneous Information 1 ea NOTE XX ; Start 07/09/16 at 18:30 Glucose (Glutose) 15 gm Q15M PRN PO DECREASED GLUCOSE; Start 07/09/16 at 18:30 Glucose (Glutose) 22.5 gm Q15M PRN PO DECREASED GLUCOSE; Start 07/09/16 at 18: 30 Dextrose (D50w Syringe) 25 ml Q15M PRN IV DECREASED GLUCOSE; Start 07/09/16 at 18:30 Dextrose (D50w Syringe) 50 ml Q15M PRN IV DECREASED GLUCOSE; Start 07/09/16 at 18:30 Glucagon (Glucagen) 1 mg Q15M PRN IM DECREASED GLUCOSE; Start 07/09/16 at 18:30 Glucose (Glutose) 15 gm Q15M PRN BUCCAL DECREASED GLUCOSE; Start 07/09/16 at 18 :30 Aspirin (Halfprin) 81 mg DAILY PO Last administered on 07/15/16 08:14; Admin Dose 81 MG; Start 07/10/16 at 09:00 Atorvastatin Calcium (Lipitor) 80 mg QHS PO Last administered on 07/14/16 21: 06; Admin Dose 80 MG; Start 07/10/16 at 21:00 Clonidine (Catapres) 0.1 mg Q6 PO Last administered on 07/15/16 00:51; Admin Dose 0.1 MG; Start 07/10/16 at 12:00 Isosorbide Mononitrate (Imdur) 60 mg DAILY PO Last administered on 07/13/16 08 :27; Admin Dose 60 MG; Start 07/10/16 at 10:00 Lactobacillus Acidoph/Bulgaricus (Floranex) 1 tab TID PO Last administered on 12:17; Admin Dose 1 TAB; Start 07/10/16 at 09:00 Metoprolol Succinate (Toprol Xl) 50 mg BID PO Last administered on 07/14/16 21 :07; Admin Dose 50 MG; Start 07/10/16 at 10:00 Pramipexole (Mirapex) 0.25 mg HS PO Last administered on 07/14/16 21:06; Admin Dose 0.25 MG; Start 07/10/16 at 21:00 Prasugrel (Effient) 10 mg DAILY PO Last administered on 07/15/16 08:13; Admin Dose 10 MG; Start 07/10/16 at 10:30 Acetaminophen (Tylenol Tab) 500 mg Q4H PRN PO PAIN AND OR ELEVATED TEMP; Start 07/10/16 at 09:00 Ondansetron HCl (Zofran Inj) 4 mg Q6H PRN IV NAUSEA AND/OR VOMITING Last administered on 07/11/16 12:04; Admin Dose 4 MG; Start 07/10/16 at 09:00 Vancomycin HCl (Vancomycin Oral Syringe) 125 mg Q6 PO Last administered on 07/15 12:17; Admin Dose 125 MG; Start 07/10/16 at 12:00 Cholestyramine Resin (Questran Light) 4 gm BID PO Last administered on 08:12; Admin Dose 4 GM; Start 07/11/16 at 09:00 Gabapentin (Neurontin) 600 mg TID PO Last administered on 07/15/16 12:17; Admin Dose 600 MG; Start 07/14/16 at 21:00 Pantoprazole (Protonix Tab) 40 mg DAILY@06 PO ; Start 07/16/16 at 06:00 DONY HOWARD MD Jul 15, 2016 13:39
[2016-07-15] MEDS: LIDOCAINE 1% (MDV) 20 ML INJ SC PRN (14:12)
[2016-07-15] MEDS: LORAZEPAM 2 MG INJ IV SCH (14:12)
[2016-07-15] MEDS: DIPHENHYDRAMINE 50 MG INJ IV SCH (14:15)
--- NOTE | 2016-07-15 16:17 | RADRPT ---
PROCEDURE: MRI lumbar spine without contrast. CLINICAL INDICATION: Low back pain radiating to right leg TECHNIQUE: Multiplanar MRI of the lumbar spine without contrast was performed on a 3.0 T scanner ut ilizing the following sequences: T1-weighted, T2-weighted, proton density. COMPARISON: None. FINDINGS: There is a transitional lumbosacral vertebra, non-mobile which will be labeled a partially lumbarize d S1 and has a subjacent intervertebral disk. There is mild dextroconvex scoliosis with preservatio n of the lordosis of the lumbar spine. Alignment is otherwise intact. The vertebral bodies are jason ntained in height. Marrow signal intensity is heterogeneous without edema or destructive osseous le sions seen. There is relative decreased disk intranuclear T2-weighted signal intensity down to the L4-5 level. The tip of the conus medullaris is visible at the T12-L1 level and appears unremarkable . T12-L1: The disc is maintained in height. No disc bulge or herniation is identified. There is no c entral canal stenosis or foraminal narrowing. L1-L2: The disc is maintained in height. No disc bulge or herniation is identified. There is no c entral canal stenosis or foraminal narrowing. L2-L3: The disc is maintained in height. There is minimal posterior disk bulging. There is no gogo tral canal stenosis or foraminal narrowing. L3-L4: The disc is maintained in height. There is minimal posterior disk bulging. There is no gogo tral canal stenosis or foraminal narrowing. L4-L5: The disc is maintained in height. There is mild posterior disk bulging and mild facet arthr opathy. There is no central canal stenosis. There is mild right foraminal narrowing. L5-S1: The disc is maintained in height. There is mild posterior disk bulging and mild facet arthr opathy. There is no central canal stenosis. There is mild right foraminal narrowing. IMPRESSION: 1. Mild lumbar spondylosis, with mild dextroconvex scoliosis. 2. No central canal stenosis. 3. Mild right foraminal narrowing at L4-5 and L5-S1. RPTAT: VV .Mike Ray MD, MD Date Time Electronically viewed and signed by .Mike Ray MD, MD on 07/15/2016 16:16 .O/
--- NOTE | 2016-07-15 17:47 | PN ---
Date/Time of Note Date/Time of Note DATE: 07/15/16 TIME: 17:37 Assessment/Plan VTE Prophylaxis VTE Prophylaxis Intervention: SCD's Lines/Catheters IV [facility]from [facility] Laci Cath Assessment/Plan Chief Complaint/Hosp Course ASSESSMENT AND PLAN: 1. Diarrhea with recent history of Clostridium difficile colitis. Continue patient on vancomycin and Questran. Dr. Gomez is following in gastroenterology consultation 2. Dehydration secondary to diarrhea with recent history of Clostridium difficile colitis. Continue IV fluids. 3. Type 1 diabetes mellitus with diabetic nephropathy. Continue NovoLog per insulin pump. 4. End-stage renal disease, hemodialysis dependent. Dr. Hubbard is following the patient in nephrology consultation. We will continue dialysis per schedule. 5. Coronary artery disease. Continue Imdur and metoprolol. 6. Hypertension. 7. Bilateral lower extremities pain. Dr. Orosco is following and rheumatology consultation. 8. Mid left superficial artery stenosis. is following in vascular surgery consultation. Continue heparin for deep venous thrombosis prophylaxis and Pepcid for peptic ulcer disease prophylaxis. Further recommendations based on clinical course. Plan of care discussed with Dr. Rosales. Problems: Subjective 24 Hr Interval Summary Free Text/Dictation Patient is undergoing dialysis, no nausea vomiting no fever. Hyperkalemia, will be corrected with hemodialysis. Exam/Review of Systems Vital Signs Vitals Vital Signs Date Time Temp Pulse Resp B/P Pulse Ox O2 Delivery O2 Flow Rate FiO2 07/15/16 16:00 84 07/15/16 13:30 20 07/15/16 07:43 98.3 155/88 96 Intake and Output 07/14/16 07/14/16 07/15/16 15:00 23:00 07:00 Intake Total 1120 ml 980 ml Output Total 3400 ml 500 ml Balance -2280 ml 480 ml Exam GENERAL: Well-developed, well-nourished male, currently appears pale, awake, alert. HEENT: The patient has right eye prosthesis. Left pupil is equal, round, reactive to light and accommodation. NECK: Supple. No cervical lymphadenopathy, no thyromegaly. CHEST: Lungs clear bilaterally. There are no rhonchi, wheezes, rales noted. CARDIOVASCULAR: Normal S1, S2. No murmurs, gallops, clicks, rubs noted. ABDOMEN: Flat, soft, nondistended. The patient has generalized tenderness to epigastric tenderness on palpation. No guarding. EXTREMITIES: No edema, clubbing, cyanosis. Left upper extremity AV graft with a palpable thrill and audible bruit. SKIN: No rash, petechiae noted. NEUROLOGIC: The patient is awake, alert, and oriented x3. Results Result Diagram: 07/15/16 0455 07/15/16 0455 Results 24 hrs Laboratory Tests Test 07/14/16 21:54 07/15/16 04:55 07/15/16 08:11 07/15/16 12:14 Bedside Glucose 83 164 133 Anion Gap 19 H Basophils # 0.0 Basophils % 0.6 Blood Morphology Comment Blood Urea Nitrogen 55 H Calcium Level 8.1 L Carbon Dioxide Level 24 Chloride Level 99 Creatinine 5.16 H Eosinophils # 0.6 H Eosinophils % 9.8 H Glucose Level 165 Hematocrit 34.6 L Hemoglobin 11.5 L Lymphocytes # 0.9 Lymphocytes % 14.8 L Mean Corpuscular Hemoglobin 30.4 Mean Corpuscular Hemoglobin Concent 33.2 Mean Corpuscular Volume 91.6 Mean Platelet Volume 9.4 Monocytes # 0.8 Monocytes % 12.2 H Neutrophils # 3.9 Neutrophils % 62.6 Nucleated Red Blood Cells # 0.0 Nucleated Red Blood Cells % 0.0 Platelet Count 164 Potassium Level 6.1 *H Red Blood Count 3.78 L Red Cell Distribution Width 16.3 H Sodium Level 136 White Blood Count 6.3 Test 07/15/16 17:14 Bedside Glucose 169 Medications Medications Current Medications Hydromorphone HCl (Dilaudid) 1 mg Q3 PRN IV PAIN Last administered on 17:10; Admin Dose 1 MG; Start 07/09/16 at 17:00 Diphenhydramine HCl (Benadryl) 50 mg Q6H PRN IV ITCHING Last administered on 12:47; Admin Dose 50 MG; Start 07/09/16 at 17:00 Non-Formulary Medication (Non-Formulary Insulin) INSULIN PUMP see la... [id number] Last administered on 07/15/16 17:32; Admin Dose 1.5 UNIT; Start 07/09/16 at 19:45 Non-Formulary Medication (Non-Formulary Insulin) INSULIN PUMP see la... HS SC Last administered on 07/11/16 21:00; Admin Dose 2 UNIT; Start 07/09/16 at 21:00 Miscellaneous Information 1 ea NOTE XX ; Start 07/09/16 at 18:30 Glucose (Glutose) 15 gm Q15M PRN PO DECREASED GLUCOSE; Start 07/09/16 at 18:30 Glucose (Glutose) 22.5 gm Q15M PRN PO DECREASED GLUCOSE; Start 07/09/16 at 18: 30 Dextrose (D50w Syringe) 25 ml Q15M PRN IV DECREASED GLUCOSE; Start 07/09/16 at 18:30 Dextrose (D50w Syringe) 50 ml Q15M PRN IV DECREASED GLUCOSE; Start 07/09/16 at 18:30 Glucagon (Glucagen) 1 mg Q15M PRN IM DECREASED GLUCOSE; Start 07/09/16 at 18:30 Glucose (Glutose) 15 gm Q15M PRN BUCCAL DECREASED GLUCOSE; Start 07/09/16 at 18 :30 Aspirin (Halfprin) 81 mg DAILY PO Last administered on 07/15/16 08:14; Admin Dose 81 MG; Start 07/10/16 at 09:00 Atorvastatin Calcium (Lipitor) 80 mg QHS PO Last administered on 07/14/16 21: 06; Admin Dose 80 MG; Start 07/10/16 at 21:00 Clonidine (Catapres) 0.1 mg Q6 PO Last administered on 07/15/16 17:19; Admin Dose 0.1 MG; Start 07/10/16 at 12:00 Isosorbide Mononitrate (Imdur) 60 mg DAILY PO Last administered on 07/13/16 08 :27; Admin Dose 60 MG; Start 07/10/16 at 10:00 Lactobacillus Acidoph/Bulgaricus (Floranex) 1 tab TID PO Last administered on 12:17; Admin Dose 1 TAB; Start 07/10/16 at 09:00 Metoprolol Succinate (Toprol Xl) 50 mg BID PO Last administered on 07/14/16 21 :07; Admin Dose 50 MG; Start 07/10/16 at 10:00 Pramipexole (Mirapex) 0.25 mg HS PO Last administered on 07/14/16 21:06; Admin Dose 0.25 MG; Start 07/10/16 at 21:00 Prasugrel (Effient) 10 mg DAILY PO Last administered on 07/15/16 08:13; Admin Dose 10 MG; Start 07/10/16 at 10:30 Acetaminophen (Tylenol Tab) 500 mg Q4H PRN PO PAIN AND OR ELEVATED TEMP; Start 07/10/16 at 09:00 Ondansetron HCl (Zofran Inj) 4 mg Q6H PRN IV NAUSEA AND/OR VOMITING Last administered on 07/11/16 12:04; Admin Dose 4 MG; Start 07/10/16 at 09:00 Vancomycin HCl (Vancomycin Oral Syringe) 125 mg Q6 PO Last administered on 07/15 17:16; Admin Dose 125 MG; Start 07/10/16 at 12:00 Cholestyramine Resin (Questran Light) 4 gm BID PO Last administered on 08:12; Admin Dose 4 GM; Start 07/11/16 at 09:00 Gabapentin (Neurontin) 600 mg TID PO Last administered on 07/15/16 12:17; Admin Dose 600 MG; Start 07/14/16 at 21:00 Pantoprazole (Protonix Tab) 40 mg DAILY@06 PO ; Start 07/16/16 at 06:00 ANGELINA CASTREJON Jul 15, 2016 17:47
--- NOTE | 2016-07-15 18:27 | CONS ---
Date/Time of Note Date/Time of Note DATE: 07/15/16 TIME: 18:19 Consult Date/Type/Reason Admit Date/Time Jul 11, 2016 at 12:19 Type of Consultation: Rheumatology Subjective No new complaints. Pain possibly a little better on Gabapntin. Now on 600 mg tid. Tolerating it well. Objective Exam without change Chest Clear Heart RRR Abd. Soft Ext without synovitis. Vital Signs Date Time Temp Pulse Resp B/P Pulse Ox O2 Delivery O2 Flow Rate FiO2 07/15/16 16:30 86 18 07/15/16 07:43 98.3 155/88 96 Intake and Output 07/14/16 07/14/16 07/15/16 15:00 23:00 07:00 Intake Total 1120 ml 980 ml Output Total 3400 ml 500 ml Balance -2280 ml 480 ml Results/Medications Result Diagram: 07/15/16 0455 07/15/16 0455 Results 24 hrs Laboratory Tests Test 07/14/16 21:54 07/15/16 04:55 07/15/16 08:11 07/15/16 12:14 Bedside Glucose 83 164 133 Anion Gap 19 H Basophils # 0.0 Basophils % 0.6 Blood Morphology Comment Blood Urea Nitrogen 55 H Calcium Level 8.1 L Carbon Dioxide Level 24 Chloride Level 99 Creatinine 5.16 H Eosinophils # 0.6 H Eosinophils % 9.8 H Glucose Level 165 Hematocrit 34.6 L Hemoglobin 11.5 L Lymphocytes # 0.9 Lymphocytes % 14.8 L Mean Corpuscular Hemoglobin 30.4 Mean Corpuscular Hemoglobin Concent 33.2 Mean Corpuscular Volume 91.6 Mean Platelet Volume 9.4 Monocytes # 0.8 Monocytes % 12.2 H Neutrophils # 3.9 Neutrophils % 62.6 Nucleated Red Blood Cells # 0.0 Nucleated Red Blood Cells % 0.0 Platelet Count 164 Potassium Level 6.1 *H Red Blood Count 3.78 L Red Cell Distribution Width 16.3 H Sodium Level 136 White Blood Count 6.3 Test 07/15/16 17:14 Bedside Glucose [address] scans noted. Medications Current Medications Hydromorphone HCl (Dilaudid) 1 mg Q3 PRN IV PAIN Last administered on t 17:10; Admin Dose 1 MG; Start 07/09/16 at 17:00 Diphenhydramine HCl (Benadryl) 50 mg Q6H PRN IV ITCHING Last administered on 12:47; Admin Dose 50 MG; Start 07/09/16 at 17:00 Non-Formulary Medication (Non-Formulary Insulin) INSULIN PUMP see la... [id number] Last administered on 07/15/16 17:32; Admin Dose 1.5 UNIT; Start 07/09/16 at 19:45 Non-Formulary Medication (Non-Formulary Insulin) INSULIN PUMP see la... HS SC Last administered on 07/11/16 21:00; Admin Dose 2 UNIT; Start 07/09/16 at 21:00 Miscellaneous Information 1 ea NOTE XX ; Start 07/09/16 at 18:30 Glucose (Glutose) 15 gm Q15M PRN PO DECREASED GLUCOSE; Start 07/09/16 at 18:30 Glucose (Glutose) 22.5 gm Q15M PRN PO DECREASED GLUCOSE; Start 07/09/16 at 18: 30 Dextrose (D50w Syringe) 25 ml Q15M PRN IV DECREASED GLUCOSE; Start 07/09/16 at 18:30 Dextrose (D50w Syringe) 50 ml Q15M PRN IV DECREASED GLUCOSE; Start 07/09/16 at 18:30 Glucagon (Glucagen) 1 mg Q15M PRN IM DECREASED GLUCOSE; Start 07/09/16 at 18:30 Glucose (Glutose) 15 gm Q15M PRN BUCCAL DECREASED GLUCOSE; Start 07/09/16 at 18 :30 Aspirin (Halfprin) 81 mg DAILY PO Last administered on 07/15/16 08:14; Admin Dose 81 MG; Start 07/10/16 at 09:00 Atorvastatin Calcium (Lipitor) 80 mg QHS PO Last administered on 07/14/16 21: 06; Admin Dose 80 MG; Start 07/10/16 at 21:00 Clonidine (Catapres) 0.1 mg Q6 PO Last administered on 07/15/16 17:19; Admin Dose 0.1 MG; Start 07/10/16 at 12:00 Isosorbide Mononitrate (Imdur) 60 mg DAILY PO Last administered on 07/13/16 08 :27; Admin Dose 60 MG; Start 07/10/16 at 10:00 Lactobacillus Acidoph/Bulgaricus (Floranex) 1 tab TID PO Last administered on 12:17; Admin Dose 1 TAB; Start 07/10/16 at 09:00 Metoprolol Succinate (Toprol Xl) 50 mg BID PO Last administered on 07/14/16 21 :07; Admin Dose 50 MG; Start 07/10/16 at 10:00 Pramipexole (Mirapex) 0.25 mg HS PO Last administered on 07/14/16 21:06; Admin Dose 0.25 MG; Start 07/10/16 at 21:00 Prasugrel (Effient) 10 mg DAILY PO Last administered on 07/15/16 08:13; Admin Dose 10 MG; Start 07/10/16 at 10:30 Acetaminophen (Tylenol Tab) 500 mg Q4H PRN PO PAIN AND OR ELEVATED TEMP; Start 07/10/16 at 09:00 Ondansetron HCl (Zofran Inj) 4 mg Q6H PRN IV NAUSEA AND/OR VOMITING Last administered on 07/11/16 12:04; Admin Dose 4 MG; Start 07/10/16 at 09:00 Vancomycin HCl (Vancomycin Oral Syringe) 125 mg Q6 PO Last administered on 07/15 17:16; Admin Dose 125 MG; Start 07/10/16 at 12:00 Cholestyramine Resin (Questran Light) 4 gm BID PO Last administered on 08:12; Admin Dose 4 GM; Start 07/11/16 at 09:00 Gabapentin (Neurontin) 600 mg TID PO Last administered on 07/15/16 12:17; Admin Dose 600 MG; Start 07/14/16 at 21:00 Pantoprazole (Protonix Tab) 40 mg DAILY@06 PO ; Start 07/16/16 at 06:00 Assessment/Plan Chief Complaint/Hosp Course Ass 1. Leg pain. Likely neuropathic in part. Possibly vascular component. Less likely radiculopathy. 2. Marked peripheral arterial disease per CT. 3. Renal Failure Rec. 1. Continue Gabapentin to 600 mg tid. 2. Will check ANCA in view of vascular disease. Problems: ENMA GRHAAM MD Jul 15, 2016 18:27
[2016-07-15] MEDS: PRAMIPEXOLE 0.25 MG TAB PO SCH (20:16)
[2016-07-15] MEDS: ATORVASTATIN 80 MG TAB PO SCH (20:16)
--- NOTE | 2016-07-15 20:49 | PN ---
Date/Time of Note Date/Time of Note DATE: 07/15/16 TIME: 20:42 Assessment/Plan Lines/Catheters IV C[facility]ter Type (from [facility]): Laci Cath Assessment/Plan Chief Complaint/Hosp Course -End-stage renal disease: It seems that the patient's left upper extremity fistula is functioning well. Recommend continue with his hemodialysis sessions via the fistula. Patient also had his recent Perm-A-Cath removed. From a vascular standpoint, we will continue his fistula surveillance as an outpatient. -Bilateral lower extremity atherosclerosis: It seems the patient 's noninvasive vascular study identified that he may have a stenosis in his superficial femoral artery. Upon CT angiography he has bilateral LE infrainguinal atherosclerotic disease. I have discussed the findings with the patient and he would like to proceed to an Angiogram possible intervention of the LLE. Will schedule in the coming days upon medical laboratory scientist availability -Optimize vascular status (BP meds, diet, nutrition, exercise, sugar control, antiplatelets). -Discussed findings with plan and management with the patient and he understands. -Thank you for allowing us to partake in the care of your patient. Please call with any questions. Problems: Subjective 24 Hr Interval Summary no new vascular evebts overnight. pt had CTA Exam/Review of Systems Vital Signs Vitals Vital Signs Date Time Temp Pulse Resp B/P Pulse Ox O2 Delivery O2 Flow Rate FiO2 07/15/16 16:30 86 18 07/15/16 07:43 98.3 155/88 96 Intake and Output 07/14/16 07/14/16 07/15/16 15:00 23:00 07:00 Intake Total 1120 ml 980 ml Output Total 3400 ml 500 ml Balance -2280 ml 480 ml Exam Free Text/Dictation GENERAL: Alert and oriented x3. PULMONARY: Clear to auscultation bilaterally. CARDIOVASCULAR: S1, S2 present. ABDOMEN: Soft, nontender, nondistended. Bowel sounds positive. EXTREMITIES: Left upper extremity palpable brachial pulse. Motor, sensory intact. Capillary refill 2 to 3 seconds. Surgical scars all well healed. Tattoo along the whole arm. fistula with bruit and thrill present, inadequate. Right lower extremity palpable femoral pulse, palpable pedal pulse. Motor and sensory intact. Capillary refill 3 seconds Left lower extremity palpable femoral pulse, faint pedal pulse. Motor and sensory intact. Capillary refill 2 to 3 seconds Results Result Diagram: 07/15/16 0455 07/15/16 0455 JOE BARR MD Jul 15, 2016 20:49
[2016-07-16] VITALS (17 sets, daily range): BP systolic 97–121; BP diastolic 60–83; PULSE 71–81; RESP 18–20
[2016-07-16] MEDS: DIPHENHYDRAMINE 50 MG INJ IV PRN ×4 (02:02→20:49)
[2016-07-16] MEDS: HYDROmorphONE 1 MG/ML SYG IV PRN ×8 (02:02→23:51)
[2016-07-16] MEDS: VANCOMYCIN HCL 250 MG/5ML POSYG PO SCH ×4 (05:08→23:51)
[2016-07-16] MEDS: PANTOPRAZOLE (EC) 40 MG TAB PO SCH (05:11)
[2016-07-16 05:38] LABS: ALBUMIN 3.6 g/dl (3.3-4.9)
[2016-07-16 05:41] LABS: ALBUMIN/GLOBULIN RATIO 1.12; BILIRUBIN,INDIRECT 0.2 mg/dl (0-1.1); BILIRUBIN,TOTAL 0.2 mg/dl (0.2-1.3); CREATININE 5.04 mg/dl (0.61-1.24); TOTAL PROTEIN 6.8 g/dl (6.1-8.1)
[2016-07-16 05:42] LABS: CALCIUM 7.2 mg/dl (8.4-10.2)
[2016-07-16 06:34] LABS: POTASSIUM 6.1 mmol/L (3.5-5.1)
--- NOTE | 2016-07-16 08:39 | PN ---
Date/Time of Note Date/Time of Note DATE: 07/16/16 TIME: 08:37 Assessment/Plan Lines/Catheters IV [facility] (from [facility]): Laci Cath Assessment/Plan Chief Complaint/Hosp Course -End-stage renal disease: It seems that the patient's left upper extremity fistula is functioning well. Recommend continue with his hemodialysis sessions via the fistula. Patient also had his recent Perm-A-Cath removed. From a vascular standpoint, we will continue his fistula surveillance as an outpatient. -Bilateral lower extremity atherosclerosis: It seems the patient 's noninvasive vascular study identified that he may have a stenosis in his superficial femoral artery. Upon CT angiography he has bilateral LE infrainguinal atherosclerotic disease. I have discussed the findings with the patient and he would like to proceed with an Angiogram possible intervention of the LLE. Will schedule in the coming days upon cath lab manager availability -Optimize vascular status (BP meds, diet, nutrition, exercise, sugar control, antiplatelets). -Discussed findings with plan and management with the patient and he understands. -Thank you for allowing us to partake in the care of your patient. Please call with any questions. Problems: Subjective 24 Hr Interval Summary No new vascular events overnight, elevated K levels Exam/Review of Systems Vital Signs Vitals Vital Signs Date Time Temp Pulse Resp B/P Pulse Ox O2 Delivery O2 Flow Rate FiO2 07/16/16 08:14 98.3 95 18 118/71 93 Intake and Output 07/15/16 07/15/16 07/16/16 14:59 22:59 06:59 Intake Total 900 ml Output Total 2900 ml Balance -2000 ml Exam Free Text/Dictation GENERAL: Alert and oriented x3. PULMONARY: Clear to auscultation bilaterally. CARDIOVASCULAR: S1, S2 present. ABDOMEN: Soft, nontender, nondistended. Bowel sounds positive. EXTREMITIES: Left upper extremity palpable brachial pulse. Motor, sensory intact. Capillary refill 2 to 3 seconds. Surgical scars all well healed. Fistula with bruit and thrill present Right lower extremity palpable femoral pulse, palpable pedal pulse. Motor and sensory intact. Capillary refill 3 seconds Left lower extremity palpable femoral pulse, faint pedal pulse. Motor and sensory intact. Capillary refill 2 to 3 seconds Results Result Diagram: 07/15/16 0455 07/16/16 0505 JOE BARR MD Jul 16, 2016 08:39
[2016-07-16] MEDS: ISOSORBIDE MONONITRATE(SR)60 MG TAB PO SCH (08:44)
[2016-07-16] MEDS: CALCIUM ACETATE 667 MG CAP PO SCH ×3 (08:44→17:31)
[2016-07-16] MEDS: LACTOBACILLUS CHEW TAB PO SCH ×3 (08:44→20:59)
[2016-07-16] MEDS: SEVELAMER 800 MG TAB PO SCH ×3 (08:44→17:31)
[2016-07-16] MEDS: ASPIRIN (EC) 81 MG TAB PO SCH (08:44)
[2016-07-16] MEDS: PRASUGREL HYDROCHLORIDE 10 MG TABLET PO SCH (08:44)
[2016-07-16] MEDS: GABAPENTIN 300 MG CAP PO SCH ×3 (08:44→20:59)
[2016-07-16] MEDS: CHOLESTYRAMINE (LIGHT) 4 GM PACKET PO SCH ×2 (08:52→21:00)
[2016-07-16] MEDS: METOPROLOL (XL) 50 MG TAB PO SCH ×2 (08:52→20:58)
--- NOTE | 2016-07-16 09:11 | CONS ---
Date/Time of Note Date/Time of Note DATE: 07/16/16 TIME: 09:04 Assessment/Plan Assessment/Plan Chief Complaint/Hosp Course #1 end-stage renal disease, on maintenance hemodialysis Thursday. #2 bilateral foot pain.He has a high grade stenosis in the L superfiscial femoral artery and other diffuse ASCVD , vascular W/U is in progress . He is scheduled for an angiogram and angioplasty tomorrow . #3 anemia. There is no history of blood loss.will order stool for OB #4 hyperkalemia , potassium is high today . I will order hemodialysis for today and tomorrow . I have spoken to pharmacy to order V[place] for hyperkalemia . Problems: Consultation Date/Type/Reason Admit Date/Time Jul 11, 2016 at 12:19 Type of Consultation: renal 24 HR Interval Summary Constitutional: improved, no complaints Exam/Review of Systems Vital Signs Vitals Vital Signs Date Time Temp Pulse Resp B/P Pulse Ox O2 Delivery O2 Flow Rate FiO2 07/16/16 08:14 98.3 95 18 118/71 93 Intake and Output 07/15/16 07/15/16 07/16/16 15:00 23:00 07:00 Intake Total 900 ml Output Total 2900 ml Balance -2000 ml Exam Constitutional: alert, oriented, well developed Psych: nl mood/affect, no complaints Respiratory: clear to auscultation, normal air movement Cardiovascular: regular rate and rhythm Musculoskeletal: nl extremities to inspection Results Result Diagram: 07/15/16 0455 07/16/16 0505 Results 24 hrs Laboratory Tests Test 07/15/16 12:14 07/15/16 17:14 07/15/16 20:08 07/15/16 23:12 Bedside Glucose 133 169 110 78 Test 07/16/16 05:05 07/16/16 08:20 Alanine Aminotransferase (ALT/SGPT) 67 Albumin 3.6 Albumin/Globulin Ratio 1.12 Alkaline Phosphatase 252 H Anion Gap 21 H Aspartate Amino Transf (AST/SGOT) 46 Blood Urea Nitrogen 54 H Calcium Level 7.2 L Carbon Dioxide Level 25 Chloride Level 95 L Creatinine 5.04 H Direct Bilirubin 0.00 Globulin 3.20 Glucose Level 164 Indirect Bilirubin 0.2 Potassium Level 6.1 *H Sodium Level 135 Total Bilirubin 0.2 Total Protein 6.8 Bedside Glucose 154 Medications Medications Current Medications Hydromorphone HCl (Dilaudid) 1 mg Q3 PRN IV PAIN Last administered on 07/16/16 08:17; Admin Dose 1 MG; Start 07/09/16 at 17:00 Diphenhydramine HCl (Benadryl) 50 mg Q6H PRN IV ITCHING Last administered on 08:56; Admin Dose 50 MG; Start 07/09/16 at 17:00 Non-Formulary Medication (Non-Formulary Insulin) INSULIN PUMP see la... [id number] Last administered on 07/16/16 07:00; Admin Dose 1 UNIT; Start 07/09/16 at 19 :45 Non-Formulary Medication (Non-Formulary Insulin) INSULIN PUMP see la... HS SC Last administered on 07/11/16 21:00; Admin Dose 2 UNIT; Start 07/09/16 at 21:00 Miscellaneous Information 1 ea NOTE XX ; Start 07/09/16 at 18:30 Glucose (Glutose) 15 gm Q15M PRN PO DECREASED GLUCOSE; Start 07/09/16 at 18:30 Glucose (Glutose) 22.5 gm Q15M PRN PO DECREASED GLUCOSE; Start 07/09/16 at 18: 30 Dextrose (D50w Syringe) 25 ml Q15M PRN IV DECREASED GLUCOSE; Start 07/09/16 at 18:30 Dextrose (D50w Syringe) 50 ml Q15M PRN IV DECREASED GLUCOSE; Start 07/09/16 at 18:30 Glucagon (Glucagen) 1 mg Q15M PRN IM DECREASED GLUCOSE; Start 07/09/16 at 18:30 Glucose (Glutose) 15 gm Q15M PRN BUCCAL DECREASED GLUCOSE; Start 07/09/16 at 18 :30 Aspirin (Halfprin) 81 mg DAILY PO Last administered on 07/16/16 08:44; Admin Dose 81 MG; Start 07/10/16 at 09:00 Atorvastatin Calcium (Lipitor) 80 mg QHS PO Last administered on 07/15/16 20: 16; Admin Dose 80 MG; Start 07/10/16 at 21:00 Clonidine (Catapres) 0.1 mg Q6 PO Last administered on 07/15/16 23:07; Admin Dose 0.1 MG; Start 07/10/16 at 12:00 Isosorbide Mononitrate (Imdur) 60 mg DAILY PO Last administered on 07/13/16 08 :27; Admin Dose 60 MG; Start 07/10/16 at 10:00 Lactobacillus Acidoph/Bulgaricus (Floranex) 1 tab TID PO Last administered on 08:44; Admin Dose 1 TAB; Start 07/10/16 at 09:00 Metoprolol Succinate (Toprol Xl) 50 mg BID PO Last administered on 07/15/16 20 :16; Admin Dose 50 MG; Start 07/10/16 at 10:00 Pramipexole (Mirapex) 0.25 mg HS PO Last administered on 07/15/16 20:16; Admin Dose 0.25 MG; Start 07/10/16 at 21:00 Prasugrel (Effient) 10 mg DAILY PO Last administered on 07/16/16 08:44; Admin Dose 10 MG; Start 07/10/16 at 10:30 Acetaminophen (Tylenol Tab) 500 mg Q4H PRN PO PAIN AND OR ELEVATED TEMP; Start 07/10/16 at 09:00 Ondansetron HCl (Zofran Inj) 4 mg Q6H PRN IV NAUSEA AND/OR VOMITING Last administered on 07/11/16 12:04; Admin Dose 4 MG; Start 07/10/16 at 09:00 Vancomycin HCl (Vancomycin Oral Syringe) 125 mg Q6 PO Last administered on 05:08; Admin Dose 125 MG; Start 07/10/16 at 12:00 Cholestyramine Resin (Questran Light) 4 gm BID PO Last administered on 08:12; Admin Dose 4 GM; Start 07/11/16 at 09:00 Gabapentin (Neurontin) 600 mg TID PO Last administered on 07/16/16 08:44; Admin Dose 600 MG; Start 07/14/16 at 21:00 Pantoprazole (Protonix Tab) 40 mg DAILY@06 PO Last administered on 07/16/16 05: 11; Admin Dose 40 MG; Start 07/16/16 at 06:00 DONY HOWARD MD Jul 16, 2016 09:11
[2016-07-16] MEDS: DIPHENHYDRAMINE 50 MG INJ IV SCH (11:35)
[2016-07-16] MEDS: LIDOCAINE 1% (MDV) 20 ML INJ SC PRN (11:35)
[2016-07-16] MEDS: LORAZEPAM 2 MG INJ IV SCH (11:36)
[2016-07-16] MEDS: PATIROMER CALCIUM SORBITEX 8.4 GM PKT PO SCH ×2 (12:15→15:46)
[2016-07-16] MEDS: ALBUMIN HUMAN 25% 100 ML IV PRN (12:46)
--- NOTE | 2016-07-16 13:32 | PN ---
Date/Time of Note Date/Time of Note DATE: 07/16/16 TIME: 13:30 Assessment/Plan VTE Prophylaxis VTE Prophylaxis Intervention: SCD's Lines/Catheters IV [facility] Laci Cath Assessment/Plan Chief Complaint/Hosp Course ASSESSMENT AND PLAN: 1. Diarrhea with recent history of Clostridium difficile colitis. Continue patient on vancomycin and Questran. Dr. Gomez is following in gastroenterology consultation 2. Dehydration secondary to diarrhea with recent history of Clostridium difficile colitis. Continue IV fluids. 3. Type 1 diabetes mellitus with diabetic nephropathy. Continue NovoLog per insulin pump. 4. End-stage renal disease, hemodialysis dependent. Dr. Hubbard is following the patient in nephrology consultation. We will continue dialysis per schedule. 5. Coronary artery disease. Continue Imdur and metoprolol. 6. Hypertension. 7. Bilateral lower extremities pain. Dr. Orosco is following and rheumatology consultation. 8. Lateral lower extremities atherosclerosis. is following in vascular surgery consultation. Plan for the left lower extremity angio with possible intervention tomorrow. Continue heparin for deep venous thrombosis prophylaxis and Pepcid for peptic ulcer disease prophylaxis. Further recommendations based on clinical course. Plan of care discussed with Dr. Rosales. Problems: Subjective 24 Hr Interval Summary Free Text/Dictation Patient is awake alert status post hemodialysis today, pain is well controlled. Exam/Review of Systems Vital Signs Vitals Vital Signs Date Time Temp Pulse Resp B/P Pulse Ox O2 Delivery O2 Flow Rate FiO2 07/16/16 13:19 72 07/16/16 12:00 18 07/16/16 08:14 98.3 118/71 93 Intake and Output 07/15/16 07/15/16 07/16/16 15:00 23:00 07:00 Intake Total 900 ml Output Total 2900 ml Balance -2000 ml Exam GENERAL: Well-developed, well-nourished male, currently appears pale, awake, alert. HEENT: The patient has right eye prosthesis. Left pupil is equal, round, reactive to light and accommodation. NECK: Supple. No cervical lymphadenopathy, no thyromegaly. CHEST: Lungs clear bilaterally. There are no rhonchi, wheezes, rales noted. CARDIOVASCULAR: Normal S1, S2. No murmurs, gallops, clicks, rubs noted. ABDOMEN: Flat, soft, nondistended. The patient has generalized tenderness to epigastric tenderness on palpation. No guarding. EXTREMITIES: No edema, clubbing, cyanosis. Left upper extremity AV graft with a palpable thrill and audible bruit. SKIN: No rash, petechiae noted. NEUROLOGIC: The patient is awake, alert, and oriented x3. Results Result Diagram: 07/15/16 0455 07/16/16 0505 Results 24 hrs Laboratory Tests Test 07/15/16 17:14 07/15/16 20:08 07/15/16 23:12 07/16/16 05:05 Bedside Glucose 169 110 78 Alanine Aminotransferase (ALT/SGPT) 67 Albumin 3.6 Albumin/Globulin Ratio 1.12 Alkaline Phosphatase 252 H Anion Gap 21 H Aspartate Amino Transf (AST/SGOT) 46 Blood Urea Nitrogen 54 H Calcium Level 7.2 L Carbon Dioxide Level 25 Chloride Level 95 L Creatinine 5.04 H Direct Bilirubin 0.00 Globulin 3.20 Glucose Level 164 Indirect Bilirubin 0.2 Potassium Level 6.1 *H Sodium Level 135 Total Bilirubin 0.2 Total Protein 6.8 Test 07/16/16 08:20 07/16/16 11:51 Bedside Glucose 154 376 H Medications Medications Current Medications Hydromorphone HCl (Dilaudid) 1 mg Q3 PRN IV PAIN Last administered on 07/16/16 11:35; Admin Dose 1 MG; Start 07/09/16 at 17:00 Diphenhydramine HCl (Benadryl) 50 mg Q6H PRN IV ITCHING Last administered on 08:56; Admin Dose 50 MG; Start 07/09/16 at 17:00 Non-Formulary Medication (Non-Formulary Insulin) INSULIN PUMP see la... [id number] Last administered on 07/16/16 11:57; Admin Dose 3.5 UNIT; Start 07/09/16 at 19:45 Non-Formulary Medication (Non-Formulary Insulin) INSULIN PUMP see la... HS SC Last administered on 07/11/16 21:00; Admin Dose 2 UNIT; Start 07/09/16 at 21:00 Miscellaneous Information 1 ea NOTE XX ; Start 07/09/16 at 18:30 Glucose (Glutose) 15 gm Q15M PRN PO DECREASED GLUCOSE; Start 07/09/16 at 18:30 Glucose (Glutose) 22.5 gm Q15M PRN PO DECREASED GLUCOSE; Start 07/09/16 at 18: 30 Dextrose (D50w Syringe) 25 ml Q15M PRN IV DECREASED GLUCOSE; Start 07/09/16 at 18:30 Dextrose (D50w Syringe) 50 ml Q15M PRN IV DECREASED GLUCOSE; Start 07/09/16 at 18:30 Glucagon (Glucagen) 1 mg Q15M PRN IM DECREASED GLUCOSE; Start 07/09/16 at 18:30 Glucose (Glutose) 15 gm Q15M PRN BUCCAL DECREASED GLUCOSE; Start 07/09/16 at 18 :30 Aspirin (Halfprin) 81 mg DAILY PO Last administered on 07/16/16 08:44; Admin Dose 81 MG; Start 07/10/16 at 09:00 Atorvastatin Calcium (Lipitor) 80 mg QHS PO Last administered on 07/15/16 20: 16; Admin Dose 80 MG; Start 07/10/16 at 21:00 Clonidine (Catapres) 0.1 mg Q6 PO Last administered on 07/15/16 23:07; Admin Dose 0.1 MG; Start 07/10/16 at 12:00 Isosorbide Mononitrate (Imdur) 60 mg DAILY PO Last administered on 07/13/16 08 :27; Admin Dose 60 MG; Start 07/10/16 at 10:00 Lactobacillus Acidoph/Bulgaricus (Floranex) 1 tab TID PO Last administered on 11:47; Admin Dose 1 TAB; Start 07/10/16 at 09:00 Metoprolol Succinate (Toprol Xl) 50 mg BID PO Last administered on 07/15/16 20 :16; Admin Dose 50 MG; Start 07/10/16 at 10:00 Pramipexole (Mirapex) 0.25 mg HS PO Last administered on 07/15/16 20:16; Admin Dose 0.25 MG; Start 07/10/16 at 21:00 Prasugrel (Effient) 10 mg DAILY PO Last administered on 07/16/16 08:44; Admin Dose 10 MG; Start 07/10/16 at 10:30 Acetaminophen (Tylenol Tab) 500 mg Q4H PRN PO PAIN AND OR ELEVATED TEMP; Start 07/10/16 at 09:00 Ondansetron HCl (Zofran Inj) 4 mg Q6H PRN IV NAUSEA AND/OR VOMITING Last administered on 07/11/16 12:04; Admin Dose 4 MG; Start 07/10/16 at 09:00 Vancomycin HCl (Vancomycin Oral Syringe) 125 mg Q6 PO Last administered on 11:47; Admin Dose 125 MG; Start 07/10/16 at 12:00 Cholestyramine Resin (Questran Light) 4 gm BID PO Last administered on 08:12; Admin Dose 4 GM; Start 07/11/16 at 09:00 Gabapentin (Neurontin) 600 mg TID PO Last administered on 07/16/16 11:46; Admin Dose 600 MG; Start 07/14/16 at 21:00 Pantoprazole (Protonix Tab) 40 mg DAILY@06 PO Last administered on 07/16/16 05: 11; Admin Dose 40 MG; Start 07/16/16 at 06:00 ANGELINA CASTREJON Jul 16, 2016 13:32
--- NOTE | 2016-07-16 14:20 | CONS ---
Date/Time of Note Date/Time of Note DATE: 07/16/16 TIME: 14:19 Assessment/Plan Assessment/Plan Additional Assessment/Plan Additional Assessment/Plan Chief Complaint/Hosp Course IMPRESSION: 1. Diarrhea. 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 Improved after Questran restarted. C. diff negative. 2. Diabetes mellitus. 3. Renal failure. 4. Coronary artery disease. 5. Hypertension. PLAN: 1. Continue Questran 2. if diarrhea do not improve, can titrate up Questran 3. can also consider colonoscopy to r/o microscopic colitis if diarrhea do not improve. 4. finish 14 day course of oral vancomycin pt.was seen yesterday Consultation Date/Type/Reason Admit Date/Time Jul 11, 2016 at 12:19 Type of Consultation: renal 24 HR Interval Summary Constitutional: improved Exam/Review of Systems Vital Signs Vitals Vital Signs Date Time Temp Pulse Resp B/P Pulse Ox O2 Delivery O2 Flow Rate FiO2 07/16/16 14:00 73 07/16/16 12:00 18 07/16/16 08:14 98.3 118/71 93 Intake and Output 07/15/16 07/15/16 07/16/16 15:00 23:00 07:00 Intake Total 900 ml Output Total 2900 ml Balance -2000 ml Exam Constitutional: alert, oriented, well developed Psych: nl mood/affect, no complaints Head: atraumatic, normocephalic Eyes: EOMI, PERRL, nl conjunctiva, nl lids, nl sclera ENMT: nl external ears & nose, nl lips & teeth, nl nasal mucosa & septum Neck: non-tender, supple Respiratory: clear to auscultation, normal air movement Cardiovascular: nl pulses, regular rate and rhythm Gastrointestinal: nl liver, spleen, non-tender, soft Musculoskeletal: nl extremities to inspection, nl gait and stance Extremities: normal pulses 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, nl mental status, nl speech, nl strength Skin: nl turgor, No rash or lesions Lymph: nl lymph nodes Results Result Diagram: 07/15/16 0455 07/16/16 0505 Results 24 hrs Laboratory Tests Test 07/15/16 17:14 07/15/16 20:08 07/15/16 23:12 07/16/16 05:05 Bedside Glucose 169 110 78 Alanine Aminotransferase (ALT/SGPT) 67 Albumin 3.6 Albumin/Globulin Ratio 1.12 Alkaline Phosphatase 252 H Anion Gap 21 H Aspartate Amino Transf (AST/SGOT) 46 Blood Urea Nitrogen 54 H Calcium Level 7.2 L Carbon Dioxide Level 25 Chloride Level 95 L Creatinine 5.04 H Direct Bilirubin 0.00 Globulin 3.20 Glucose Level 164 Indirect Bilirubin 0.2 Potassium Level 6.1 *H Sodium Level 135 Total Bilirubin 0.2 Total Protein 6.8 Test 07/16/16 08:20 07/16/16 11:51 Bedside Glucose 154 376 H Medications Medications Current Medications Hydromorphone HCl (Dilaudid) 1 mg Q3 PRN IV PAIN Last administered on 07/16/16 11:35; Admin Dose 1 MG; Start 07/09/16 at 17:00 Diphenhydramine HCl (Benadryl) 50 mg Q6H PRN IV ITCHING Last administered on 08:56; Admin Dose 50 MG; Start 07/09/16 at 17:00 Non-Formulary Medication (Non-Formulary Insulin) INSULIN PUMP see la... [id number] SC Last administered on 07/16/16 11:57; Admin Dose 3.5 UNIT; Start 07/09/16 at 19:45 Non-Formulary Medication (Non-Formulary Insulin) INSULIN PUMP see la... HS SC Last administered on 07/11/16 21:00; Admin Dose 2 UNIT; Start 07/09/16 at 21:00 Miscellaneous Information 1 ea NOTE XX ; Start 07/09/16 at 18:30 Glucose (Glutose) 15 gm Q15M PRN PO DECREASED GLUCOSE; Start 07/09/16 at 18:30 Glucose (Glutose) 22.5 gm Q15M PRN PO DECREASED GLUCOSE; Start 07/09/16 at 18: 30 Dextrose (D50w Syringe) 25 ml Q15M PRN IV DECREASED GLUCOSE; Start 07/09/16 at 18:30 Dextrose (D50w Syringe) 50 ml Q15M PRN IV DECREASED GLUCOSE; Start 07/09/16 at 18:30 Glucagon (Glucagen) 1 mg Q15M PRN IM DECREASED GLUCOSE; Start 07/09/16 at 18:30 Glucose (Glutose) 15 gm Q15M PRN BUCCAL DECREASED GLUCOSE; Start 07/09/16 at 18 :30 Aspirin (Halfprin) 81 mg DAILY PO Last administered on 07/16/16 08:44; Admin Dose 81 MG; Start 07/10/16 at 09:00 Atorvastatin Calcium (Lipitor) 80 mg QHS PO Last administered on 07/15/16 20: 16; Admin Dose 80 MG; Start 07/10/16 at 21:00 Clonidine (Catapres) 0.1 mg Q6 PO Last administered on 07/15/16 23:07; Admin Dose 0.1 MG; Start 07/10/16 at 12:00 Isosorbide Mononitrate (Imdur) 60 mg DAILY PO Last administered on 07/13/16 08 :27; Admin Dose 60 MG; Start 07/10/16 at 10:00 Lactobacillus Acidoph/Bulgaricus (Floranex) 1 tab TID PO Last administered on 11:47; Admin Dose 1 TAB; Start 07/10/16 at 09:00 Metoprolol Succinate (Toprol Xl) 50 mg BID PO Last administered on 07/15/16 20 :16; Admin Dose 50 MG; Start 07/10/16 at 10:00 Pramipexole (Mirapex) 0.25 mg HS PO Last administered on 07/15/16 20:16; Admin Dose 0.25 MG; Start 07/10/16 at 21:00 Prasugrel (Effient) 10 mg DAILY PO Last administered on 07/16/16 08:44; Admin Dose 10 MG; Start 07/10/16 at 10:30 Acetaminophen (Tylenol Tab) 500 mg Q4H PRN PO PAIN AND OR ELEVATED TEMP; Start 07/10/16 at 09:00 Ondansetron HCl (Zofran Inj) 4 mg Q6H PRN IV NAUSEA AND/OR VOMITING Last administered on 07/11/16 12:04; Admin Dose 4 MG; Start 07/10/16 at 09:00 Vancomycin HCl (Vancomycin Oral Syringe) 125 mg Q6 PO Last administered on 11:47; Admin Dose 125 MG; Start 07/10/16 at 12:00 Cholestyramine Resin (Questran Light) 4 gm BID PO Last administered on 08:12; Admin Dose 4 GM; Start 07/11/16 at 09:00 Gabapentin (Neurontin) 600 mg TID PO Last administered on 07/16/16 11:46; Admin Dose 600 MG; Start 07/14/16 at 21:00 Pantoprazole (Protonix Tab) 40 mg DAILY@06 PO Last administered on 07/16/16 05: 11; Admin Dose 40 MG; Start 07/16/16 at 06:00 NIYAH REED MD Jul 16, 2016 14:19
--- NOTE | 2016-07-16 19:15 | CONS ---
Date/Time of Note Date/Time of Note DATE: 07/16/16 TIME: 19:09 Consult Date/Type/Reason Admit Date/Time Jul 11, 2016 at 12:19 Type of Consultation: Rheum Subjective Somewhat less discomfort at legs/feet, possibly due to the Gabapentin (600mgtid) . Describes long history of right thigh numbness and pain around hip with standing. No new complaints. Objective Alert, oriented Chest clear Heart RRR Abd. soft. Ext. No synovitis. Less tenderness a feet. Vital Signs Date Time Temp Pulse Resp B/P Pulse Ox O2 Delivery O2 Flow Rate FiO2 07/16/16 15:05 81 07/16/16 15:00 18 07/16/16 08:14 98.3 118/71 93 Intake and Output 07/15/16 07/15/16 07/16/16 15:00 23:00 07:00 Intake Total 900 ml Output Total 2900 ml Balance -2000 ml Results/Medications Result Diagram: 07/15/16 0455 07/16/16 0505 Results 24 hrs Laboratory Tests Test 07/15/16 20:08 07/15/16 23:12 07/16/16 05:05 07/16/16 08:20 Bedside Glucose 110 78 154 Alanine Aminotransferase (ALT/SGPT) 67 Albumin 3.6 Albumin/Globulin Ratio 1.12 Alkaline Phosphatase 252 H Anion Gap 21 H Aspartate Amino Transf (AST/SGOT) 46 Blood Urea Nitrogen 54 H Calcium Level 7.2 L Carbon Dioxide Level 25 Chloride Level 95 L Creatinine 5.04 H Direct Bilirubin 0.00 Globulin 3.20 Glucose Level 164 Indirect Bilirubin 0.2 Potassium Level 6.1 *H Sodium Level 135 Total Bilirubin 0.2 Total Protein 6.8 Test 07/16/16 11:51 07/16/16 17:28 Bedside Glucose 376 H 161 Medications Current Medications Hydromorphone HCl (Dilaudid) 1 mg Q3 PRN IV PAIN Last administered on 07/16/16 17:44; Admin Dose 1 MG; Start 07/09/16 at 17:00 Diphenhydramine HCl (Benadryl) 50 mg Q6H PRN IV ITCHING Last administered on 14:46; Admin Dose 50 MG; Start 07/09/16 at 17:00 Non-Formulary Medication (Non-Formulary Insulin) INSULIN PUMP see la... [id number] SC Last administered on 07/16/16 17:53; Admin Dose 1.5 UNIT; Start 07/09/16 at 19:45 Non-Formulary Medication (Non-Formulary Insulin) INSULIN PUMP see la... HS SC Last administered on 07/11/16 21:00; Admin Dose 2 UNIT; Start 07/09/16 at 21:00 Miscellaneous Information 1 ea NOTE XX ; Start 07/09/16 at 18:30 Glucose (Glutose) 15 gm Q15M PRN PO DECREASED GLUCOSE; Start 07/09/16 at 18:30 Glucose (Glutose) 22.5 gm Q15M PRN PO DECREASED GLUCOSE; Start 07/09/16 at 18: 30 Dextrose (D50w Syringe) 25 ml Q15M PRN IV DECREASED GLUCOSE; Start 07/09/16 at 18:30 Dextrose (D50w Syringe) 50 ml Q15M PRN IV DECREASED GLUCOSE; Start 07/09/16 at 18:30 Glucagon (Glucagen) 1 mg Q15M PRN IM DECREASED GLUCOSE; Start 07/09/16 at 18:30 Glucose (Glutose) 15 gm Q15M PRN BUCCAL DECREASED GLUCOSE; Start 07/09/16 at 18 :30 Aspirin (Halfprin) 81 mg DAILY PO Last administered on 07/16/16 08:44; Admin Dose 81 MG; Start 07/10/16 at 09:00 Atorvastatin Calcium (Lipitor) 80 mg QHS PO Last administered on 07/15/16 20: 16; Admin Dose 80 MG; Start 07/10/16 at 21:00 Clonidine (Catapres) 0.1 mg Q6 PO Last administered on 07/15/16 23:07; Admin Dose 0.1 MG; Start 07/10/16 at 12:00 Isosorbide Mononitrate (Imdur) 60 mg DAILY PO Last administered on 07/13/16 08 :27; Admin Dose 60 MG; Start 07/10/16 at 10:00 Lactobacillus Acidoph/Bulgaricus (Floranex) 1 tab TID PO Last administered on 11:47; Admin Dose 1 TAB; Start 07/10/16 at 09:00 Metoprolol Succinate (Toprol Xl) 50 mg BID PO Last administered on 07/15/16 20 :16; Admin Dose 50 MG; Start 07/10/16 at 10:00 Pramipexole (Mirapex) 0.25 mg HS PO Last administered on 07/15/16 20:16; Admin Dose 0.25 MG; Start 07/10/16 at 21:00 Prasugrel (Effient) 10 mg DAILY PO Last administered on 07/16/16 08:44; Admin Dose 10 MG; Start 07/10/16 at 10:30 Acetaminophen (Tylenol Tab) 500 mg Q4H PRN PO PAIN AND OR ELEVATED TEMP; Start 07/10/16 at 09:00 Ondansetron HCl (Zofran Inj) 4 mg Q6H PRN IV NAUSEA AND/OR VOMITING Last administered on 07/11/16 12:04; Admin Dose 4 MG; Start 07/10/16 at 09:00 Vancomycin HCl (Vancomycin Oral Syringe) 125 mg Q6 PO Last administered on 17:31; Admin Dose 125 MG; Start 07/10/16 at 12:00 Cholestyramine Resin (Questran Light) 4 gm BID PO Last administered on 08:12; Admin Dose 4 GM; Start 07/11/16 at 09:00 Gabapentin (Neurontin) 600 mg TID PO Last administered on 07/16/16 11:46; Admin Dose 600 MG; Start 07/14/16 at 21:00 Pantoprazole (Protonix Tab) 40 mg DAILY@06 PO Last administered on 07/16/16 05: 11; Admin Dose 40 MG; Start 07/16/16 at 06:00 Assessment/Plan Chief Complaint/Hosp Course Ass 1. Leg pain. Likely neuropathic in part. Possibly vascular component. 2. Marked peripheral arterial disease per CT. 3. Possible right lumbar radiculopathy, long standing 3. Renal Failure Rec. 1. Continue Gabapentin to 600 mg tid. 2. Patient to have vascular procedure tomorrow. 3. Consider Ortho or Neurosurgery eval re the possible lumbar radiculopathy, in the future. Problems: ENMA GRAHAM MD Jul 16, 2016 19:15
[2016-07-16] MEDS: PRAMIPEXOLE 0.25 MG TAB PO SCH (20:59)
[2016-07-16] MEDS: ATORVASTATIN 80 MG TAB PO SCH (20:59)
--- NOTE | 2016-07-16 23:18 | RADRPT ---
PROCEDURE: Bilateral lower extremity venous mapping. CLINICAL INDICATION: Preoperative for CABG. TECHNIQUE: The greater saphenous vein was evaluated bilaterally with ultrasound in the axial and s agittal planes. Diameter of the veins were determined as indicated below. COMPARISON: No prior studies are available for comparison. FINDINGS: Right greater saphenous vein: At groin: 0.39 cm. Upper thigh: 0.26 cm. Mid thigh: 0.29 cm. Lower thigh: 0.25 cm. At knee: 0.29 cm. Upper calf: 0.29 cm. Mid calf: 0.29 cm. Ankle: 0.23 cm. Left greater saphenous vein: At groin: 0.46 cm. Upper thigh: 0.32 cm. Mid thigh: 0.25 cm. Lower thigh: 0.20 cm. At knee: 0.27 cm. Upper calf: 0.23 cm. Mid calf: 0.23 cm. Ankle: 0.19 cm. The greater saphenous veins demonstrate normal compressibility with no thrombus or occlusion. IMPRESSION: 1. Diameter of greater saphenous veins as indicated above. 2. No thrombosis visualized. RPTAT: QQ .Alan Cordero MD, Date Time Electronically viewed and signed by .Alan Cordero MD, on 07/16/2016 23:18 .R/
[2016-07-17] VITALS (9 sets, daily range): BP systolic 106–141; BP diastolic 60–87; PULSE 72–95; RESP 16–20
[2016-07-17] MEDS: HYDROmorphONE 1 MG/ML SYG IV PRN ×8 (02:55→23:51)
[2016-07-17 05:44] LABS: BASOPHILS % 0.6 % (0.0-2.0); EOSINOPHILS # 0.6 10^3/ul (0.0-0.5); EOSINOPHILS % 9.7 % (0.0-7.0); HEMATOCRIT 33.3 % (42.0-52.0); LYMPHOCYTES % 16.8 % (15.0-51.0); MEAN CORPUSCULAR HEMOGLOBIN 30.2 pg (29.0-33.0); MEAN CORPUSCULAR VOLUME 91.6 fl (82.0-101.0); MEAN PLATELET VOLUME 9.6 fl (7.4-10.4); MONOCYTE # 0.9 10^3/ul (0.3-0.9); MONOCYTES % 14.5 % (0.0-11.0); NEUTROPHIL # 3.6 10^3/ul (1.6-7.5); NEUTROPHILS % 58.4 % (39.0-77.0); PLATELET COUNT 176 10^3/UL (140-440); RED BLOOD COUNT 3.64 10^6/ul (4.70-6.10); RED CELL DISTRIBUTION WIDTH 16.7 % (11.5-14.5); UNCORRECTED WBC 6.2 10^3/ul (4.8-10.8); WHITE BLOOD COUNT 6.2 10^3/ul (4.8-10.8)
[2016-07-17] MEDS: DIPHENHYDRAMINE 50 MG INJ IV PRN ×4 (05:57→23:51)
[2016-07-17] MEDS: PANTOPRAZOLE (EC) 40 MG TAB PO SCH ×2 (06:00→08:15)
[2016-07-17] MEDS: VANCOMYCIN HCL 250 MG/5ML POSYG PO SCH ×3 (06:00→17:52)
[2016-07-17 06:11] LABS: POTASSIUM 5.9 mmol/L (3.5-5.1)
[2016-07-17 06:13] LABS: CREATININE 4.67 mg/dl (0.61-1.24)
[2016-07-17 06:14] LABS: CALCIUM 7.6 mg/dl (8.4-10.2)
[2016-07-17 07:01] LABS: CONDITION 1; LH ANALYZER COMMENTS 1
[2016-07-17] MEDS: DIPHENHYDRAMINE 50 MG INJ IV SCH (08:04)
[2016-07-17] MEDS: LORAZEPAM 2 MG INJ IV SCH (08:04)
[2016-07-17] MEDS: SEVELAMER 800 MG TAB PO SCH ×3 (08:15→17:47)
[2016-07-17] MEDS: CALCIUM ACETATE 667 MG CAP PO SCH ×3 (08:15→17:47)
[2016-07-17] MEDS: LIDOCAINE 1% (MDV) 20 ML INJ SC PRN (08:50)
[2016-07-17] MEDS: ISOSORBIDE MONONITRATE(SR)60 MG TAB PO SCH (09:00)
[2016-07-17] MEDS: PRASUGREL HYDROCHLORIDE 10 MG TABLET PO SCH (09:00)
[2016-07-17] MEDS: ASPIRIN (EC) 81 MG TAB PO SCH (09:00)
[2016-07-17] MEDS: METOPROLOL (XL) 50 MG TAB PO SCH ×2 (09:00→21:06)
[2016-07-17] MEDS: CHOLESTYRAMINE (LIGHT) 4 GM PACKET PO SCH ×2 (09:06→21:06)
[2016-07-17] MEDS: GABAPENTIN 300 MG CAP PO SCH ×3 (09:06→21:05)
[2016-07-17] MEDS: LACTOBACILLUS CHEW TAB PO SCH ×3 (09:07→21:05)
--- NOTE | 2016-07-17 09:23 | PN ---
Date/Time of Note Date/Time of Note DATE: 07/17/16 TIME: 09:11 Assessment/Plan VTE Prophylaxis VTE Prophylaxis Intervention: heparin Lines/Catheters IV [facility]from [facility] PORTACATH Assessment/Plan Assessment/Plan 1. Diarrhea with recent history of Clostridium difficile colitis. Continue patient on vancomycin and Questran. - per Dr. Gomez in gastroenterology consultation 2. Dehydration secondary to diarrhea with recent history of Clostridium difficile colitis. - Continue IV fluids. 3. Type 1 diabetes mellitus with diabetic nephropathy. - Continue NovoLog per insulin pump. 4. End-stage renal disease, hemodialysis dependent. - Dr. Hubbard is following the patient in nephrology consultation. We will continue dialysis per schedule. 5. Coronary artery disease. Continue Imdur and metoprolol. 6. Hypertension. 7. Bilateral lower extremities pain. Dr. Orosco is following and rheumatology consultation. 8. Lateral lower extremities atherosclerosis. is following in vascular surgery consultation. - Plan for the left lower extremity angio with possible intervention today 9. Hyperkalemia - Per nephrology, hemodialysis of present Continue heparin for deep venous thrombosis prophylaxis and Pepcid for peptic ulcer disease prophylaxis. Further recommendations based on clinical course. Plan of care discussed with Dr. Rosales. Subjective 24 Hr Interval Summary Free Text/Dictation No acute distress patient is sleeping, easily arousable getting dialysis at present tolerating well. Plan far last night angiogram today to follow-up no new issues reported by the staff discussed with the staff. ENT: no complaints Respiratory: no complaints Cardiovascular: no complaints Gastrointestinal: no complaints Musculoskeletal: other (lleft side pain) Skin: no complaints Neurologic: no complaints Psychological: no complaints Immunologic: no complaints Exam/Review of Systems Vital Signs Vitals Vital Signs Date Time Temp Pulse Resp B/P Pulse Ox O2 Delivery O2 Flow Rate FiO2 07/17/16 08:21 97.7 20 20 141/71 98 Intake and Output 07/16/16 07/16/16 07/17/16 15:00 23:00 07:00 Intake Total 500 ml 1440 ml 600 ml Output Total 3000 ml 400 ml Balance -2500 ml 1040 ml 600 ml Exam Constitutional: alert, oriented, well developed Psych: nl mood/affect Eyes: PERRL, nl sclera ENMT: nl external ears & nose Neck: non-tender Respiratory: clear to auscultation Cardiovascular: nl pulses Gastrointestinal: non-tender, soft Musculoskeletal: nl extremities to inspection Extremities: normal pulses 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: nl mental status, nl speech Skin: nl turgor Lymph: nontender Results Result Diagram: 07/17/1651707/17/16517 Results 24 hrs Laboratory Tests Test 07/16/16 11:51 07/16/16 17:28 07/16/16 20:35 07/16/16 23:59 Bedside Glucose 376 H 161 78 155 Test 07/17/16 05:18 07/17/16 08:19 Anion Gap 19 H Basophils # 0.0 Basophils % 0.6 Blood Morphology Comment Blood Urea Nitrogen 48 H Calcium Level 7.6 L Carbon Dioxide Level 26 Chloride Level 95 L Creatinine 4.67 H Eosinophils # 0.6 H Eosinophils % 9.7 H Glucose Level 331 #H Hematocrit 33.3 L Hemoglobin 11.0 L Lymphocytes # 1.0 Lymphocytes % 16.8 Magnesium Level 1.9 Mean Corpuscular Hemoglobin 30.2 Mean Corpuscular Hemoglobin Concent 33.0 Mean Corpuscular Volume 91.6 Mean Platelet Volume 9.6 Monocytes # 0.9 Monocytes % 14.5 H Neutrophils # 3.6 Neutrophils % 58.4 Nucleated Red Blood Cells # 0.0 Nucleated Red Blood Cells % 0.0 Platelet Count 176 Potassium Level 5.9 H Red Blood Count 3.64 L Red Cell Distribution Width 16.7 H Sodium Level 134 L White Blood Count 6.2 Bedside Glucose 305 H Medications Medications Current Medications Hydromorphone HCl (Dilaudid) 1 mg Q3 PRN IV PAIN Last administered on 07/17/16 06:13; Admin Dose 1 MG; Start 07/09/16 at 17:00 Diphenhydramine HCl (Benadryl) 50 mg Q6H PRN IV ITCHING Last administered on 05:57; Admin Dose 50 MG; Start 07/09/16 at 17:00 Non-Formulary Medication (Non-Formulary Insulin) INSULIN PUMP see la... [id number] Last administered on 07/16/16 17:53; Admin Dose 1.5 UNIT; Start 07/09/16 at 19:45 Non-Formulary Medication (Non-Formulary Insulin) INSULIN PUMP see la... HS SC Last administered on 07/11/16 21:00; Admin Dose 2 UNIT; Start 07/09/16 at 21:00 Miscellaneous Information 1 ea NOTE XX ; Start 07/09/16 at 18:30 Glucose (Glutose) 15 gm Q15M PRN PO DECREASED GLUCOSE; Start 07/09/16 at 18:30 Glucose (Glutose) 22.5 gm Q15M PRN PO DECREASED GLUCOSE; Start 07/09/16 at 18: 30 Dextrose (D50w Syringe) 25 ml Q15M PRN IV DECREASED GLUCOSE; Start 07/09/16 at 18:30 Dextrose (D50w Syringe) 50 ml Q15M PRN IV DECREASED GLUCOSE; Start 07/09/16 at 18:30 Glucagon (Glucagen) 1 mg Q15M PRN IM DECREASED GLUCOSE; Start 07/09/16 at 18:30 Glucose (Glutose) 15 gm Q15M PRN BUCCAL DECREASED GLUCOSE; Start 07/09/16 at 18 :30 Aspirin (Halfprin) 81 mg DAILY PO Last administered on 07/16/16 08:44; Admin Dose 81 MG; Start 07/10/16 at 09:00 Atorvastatin Calcium (Lipitor) 80 mg QHS PO Last administered on 07/16/16 20:59 ; Admin Dose 80 MG; Start 07/10/16 at 21:00 Clonidine (Catapres) 0.1 mg Q6 PO Last administered on 07/16/16 23:55; Admin Dose 0.1 MG; Start 07/10/16 at 12:00 Isosorbide Mononitrate (Imdur) 60 mg DAILY PO Last administered on 07/13/16 08 :27; Admin Dose 60 MG; Start 07/10/16 at 10:00 Lactobacillus Acidoph/Bulgaricus (Floranex) 1 tab TID PO Last administered on 20:59; Admin Dose 1 TAB; Start 07/10/16 at 09:00 Metoprolol Succinate (Toprol Xl) 50 mg BID PO Last administered on 07/15/16 20 :16; Admin Dose 50 MG; Start 07/10/16 at 10:00 Pramipexole (Mirapex) 0.25 mg HS PO Last administered on 07/16/16 20:59; Admin Dose 0.25 MG; Start 07/10/16 at 21:00 Prasugrel (Effient) 10 mg DAILY PO Last administered on 07/16/16 08:44; Admin Dose 10 MG; Start 07/10/16 at 10:30 Acetaminophen (Tylenol Tab) 500 mg Q4H PRN PO PAIN AND OR ELEVATED TEMP; Start 07/10/16 at 09:00 Ondansetron HCl (Zofran Inj) 4 mg Q6H PRN IV NAUSEA AND/OR VOMITING Last administered on 07/11/16 12:04; Admin Dose 4 MG; Start 07/10/16 at 09:00 Vancomycin HCl (Vancomycin Oral Syringe) 125 mg Q6 PO Last administered on 23:51; Admin Dose 125 MG; Start 07/10/16 at 12:00 Cholestyramine Resin (Questran Light) 4 gm BID PO Last administered on 08:12; Admin Dose 4 GM; Start 07/11/16 at 09:00 Gabapentin (Neurontin) 600 mg TID PO Last administered on 07/16/16 20:59; Admin Dose 600 MG; Start 07/14/16 at 21:00 Pantoprazole (Protonix Tab) 40 mg DAILY@06 PO Last administered on 07/17/16 08: 15; Admin Dose 40 MG; Start 07/16/16 at 06:00 PEDRO BENSON Jul 17, 2016 09:21
[2016-07-17] MEDS: PATIROMER CALCIUM SORBITEX 8.4 GM PKT PO SCH (12:54)
--- NOTE | 2016-07-17 13:04 | CONS ---
Date/Time of Note Date/Time of Note DATE: 07/17/16 TIME: 12:59 Assessment/Plan Assessment/Plan Chief Complaint/Hosp Course #1 end-stage renal disease, on maintenance hemodialysis Thursday.He had dialysis today . #2 bilateral foot pain.He has a high grade stenosis in the L superfiscial femoral artery and other diffuse ASCVD , vascular W/U is in progress . He was scheduled for an angiogram and angioplasty today ; however it was canceled . #3 anemia. There is no history of blood loss.will order stool for OB #4 hyperkalemia . I have spoken to pharmacy to order Veltassa for hyperkalemia . He started the Veltassa yesterday . Will check potassium tomorrow . Problems: Consultation Date/Type/Reason Admit Date/Time Jul 11, 2016 at 12:19 Type of Consultation: Rheum 24 HR Interval Summary Free Text/Dictation He was scheduled for an angiogram with angioplasty of L leg today ; however , it was canceled Constitutional: no complaints Exam/Review of Systems Vital Signs Vitals Vital Signs Date Time Temp Pulse Resp B/P Pulse Ox O2 Delivery O2 Flow Rate FiO2 07/17/16 11:00 78 18 07/17/16 08:21 97.7 141/71 98 Intake and Output 07/16/16 07/16/16 07/17/16 15:00 23:00 07:00 Intake Total 500 ml 1440 ml 600 ml Output Total 3000 ml 400 ml Balance -2500 ml 1040 ml 600 ml Exam Constitutional: alert, oriented, well developed Psych: nl mood/affect, no complaints Respiratory: clear to auscultation, normal air movement Cardiovascular: regular rate and rhythm Musculoskeletal: nl extremities to inspection Results Result Diagram: 07/17/16 0518 07/17/16 0518 Results 24 hrs Laboratory Tests Test 07/16/16 17:28 07/16/16 20:35 07/16/16 23:59 07/17/16 05:18 Bedside Glucose 161 78 155 Anion Gap 19 H Basophils # 0.0 Basophils % 0.6 Blood Morphology Comment Blood Urea Nitrogen 48 H Calcium Level 7.6 L Carbon Dioxide Level 26 Chloride Level 95 L Creatinine 4.67 H Eosinophils # 0.6 H Eosinophils % 9.7 H Glucose Level 331 #H Hematocrit 33.3 L Hemoglobin 11.0 L Lymphocytes # 1.0 Lymphocytes % 16.8 Magnesium Level 1.9 Mean Corpuscular Hemoglobin 30.2 Mean Corpuscular Hemoglobin Concent 33.0 Mean Corpuscular Volume 91.6 Mean Platelet Volume 9.6 Monocytes # 0.9 Monocytes % 14.5 H Neutrophils # 3.6 Neutrophils % 58.4 Nucleated Red Blood Cells # 0.0 Nucleated Red Blood Cells % 0.0 Platelet Count 176 Potassium Level 5.9 H Red Blood Count 3.64 L Red Cell Distribution Width 16.7 H Sodium Level 134 L White Blood Count 6.2 Test 07/17/16 08:19 07/17/16 11:46 Bedside Glucose 305 H 145 Medications Medications Current Medications Hydromorphone HCl (Dilaudid) 1 mg Q3 PRN IV PAIN Last administered on 07/17/16 11:56; Admin Dose 1 MG; Start 07/09/16 at 17:00 Diphenhydramine HCl (Benadryl) 50 mg Q6H PRN IV ITCHING Last administered on 11:56; Admin Dose 50 MG; Start 07/09/16 at 17:00 Non-Formulary Medication (Non-Formulary Insulin) INSULIN PUMP see la... [id number] SC Last administered on 07/17/16 09:53; Admin Dose 6 UNIT; Start 07/09/16 at 19 :45 Non-Formulary Medication (Non-Formulary Insulin) INSULIN PUMP see la... HS SC Last administered on 07/11/16 21:00; Admin Dose 2 UNIT; Start 07/09/16 at 21:00 Miscellaneous Information 1 ea NOTE XX ; Start 07/09/16 at 18:30 Glucose (Glutose) 15 gm Q15M PRN PO DECREASED GLUCOSE; Start 07/09/16 at 18:30 Glucose (Glutose) 22.5 gm Q15M PRN PO DECREASED GLUCOSE; Start 07/09/16 at 18: 30 Dextrose (D50w Syringe) 25 ml Q15M PRN IV DECREASED GLUCOSE; Start 07/09/16 at 18:30 Dextrose (D50w Syringe) 50 ml Q15M PRN IV DECREASED GLUCOSE; Start 07/09/16 at 18:30 Glucagon (Glucagen) 1 mg Q15M PRN IM DECREASED GLUCOSE; Start 07/09/16 at 18:30 Glucose (Glutose) 15 gm Q15M PRN BUCCAL DECREASED GLUCOSE; Start 07/09/16 at 18 :30 Aspirin (Halfprin) 81 mg DAILY PO Last administered on 07/16/16 08:44; Admin Dose 81 MG; Start 07/10/16 at 09:00 Atorvastatin Calcium (Lipitor) 80 mg QHS PO Last administered on 07/16/16 20:59 ; Admin Dose 80 MG; Start 07/10/16 at 21:00 Clonidine (Catapres) 0.1 mg Q6 PO Last administered on 07/17/16 12:46; Admin Dose 0.1 MG; Start 07/10/16 at 12:00 Isosorbide Mononitrate (Imdur) 60 mg DAILY PO Last administered on 07/13/16 08 :27; Admin Dose 60 MG; Start 07/10/16 at 10:00 Lactobacillus Acidoph/Bulgaricus (Floranex) 1 tab TID PO Last administered on 12:45; Admin Dose 1 TAB; Start 07/10/16 at 09:00 Metoprolol Succinate (Toprol Xl) 50 mg BID PO Last administered on 07/15/16 20 :16; Admin Dose 50 MG; Start 07/10/16 at 10:00 Pramipexole (Mirapex) 0.25 mg HS PO Last administered on 07/16/16 20:59; Admin Dose 0.25 MG; Start 07/10/16 at 21:00 Prasugrel (Effient) 10 mg DAILY PO Last administered on 07/16/16 08:44; Admin Dose 10 MG; Start 07/10/16 at 10:30 Acetaminophen (Tylenol Tab) 500 mg Q4H PRN PO PAIN AND OR ELEVATED TEMP; Start 07/10/16 at 09:00 Ondansetron HCl (Zofran Inj) 4 mg Q6H PRN IV NAUSEA AND/OR VOMITING Last administered on 07/11/16 12:04; Admin Dose 4 MG; Start 07/10/16 at 09:00 Vancomycin HCl (Vancomycin Oral Syringe) 125 mg Q6 PO Last administered on 12:54; Admin Dose 125 MG; Start 07/10/16 at 12:00 Cholestyramine Resin (Questran Light) 4 gm BID PO Last administered on 09:06; Admin Dose 4 GM; Start 07/11/16 at 09:00 Gabapentin (Neurontin) 600 mg TID PO Last administered on 07/17/16 12:46; Admin Dose 600 MG; Start 07/14/16 at 21:00 Pantoprazole (Protonix Tab) 40 mg DAILY@06 PO Last administered on 07/17/16 08: 15; Admin Dose 40 MG; Start 07/16/16 at 06:00 DONY HOWARD MD Jul 17, 2016 13:04
--- NOTE | 2016-07-17 13:19 | CONS ---
Date/Time of Note Date/Time of Note DATE: 07/17/16 TIME: 13:16 Consult Date/Type/Reason Admit Date/Time Jul 11, 2016 at 12:19 Type of Consultation: Rheum Subjective Continues to feel better in regard to pain at legs and feet and able to stand for prolonged periods. Complains of chronic pain at right low back radiating to groin and right thigh. Objective Alert, oriented Chest clear Heart RRR Abd. soft. Ext. No synovitis. Less tenderness a feet Vital Signs Date Time Temp Pulse Resp B/P Pulse Ox O2 Delivery O2 Flow Rate FiO2 07/17/16 11:00 78 18 07/17/16 08:21 97.7 141/71 98 Intake and Output 07/16/16 07/16/16 07/17/16 15:00 23:00 07:00 Intake Total 500 ml 1440 ml 600 ml Output Total 3000 ml 400 ml Balance -2500 ml 1040 ml 600 ml Results/Medications Result Diagram: 07/17/16 0518 07/17/16 0518 Results 24 hrs Laboratory Tests Test 07/16/16 17:28 07/16/16 20:35 07/16/16 23:59 07/17/16 05:18 Bedside Glucose 161 78 155 Anion Gap 19 H Basophils # 0.0 Basophils % 0.6 Blood Morphology Comment Blood Urea Nitrogen 48 H Calcium Level 7.6 L Carbon Dioxide Level 26 Chloride Level 95 L Creatinine 4.67 H Eosinophils # 0.6 H Eosinophils % 9.7 H Glucose Level 331 #H Hematocrit 33.3 L Hemoglobin 11.0 L Lymphocytes # 1.0 Lymphocytes % 16.8 Magnesium Level 1.9 Mean Corpuscular Hemoglobin 30.2 Mean Corpuscular Hemoglobin Concent 33.0 Mean Corpuscular Volume 91.6 Mean Platelet Volume 9.6 Monocytes # 0.9 Monocytes % 14.5 H Neutrophils # 3.6 Neutrophils % 58.4 Nucleated Red Blood Cells # 0.0 Nucleated Red Blood Cells % 0.0 Platelet Count 176 Potassium Level 5.9 H Red Blood Count 3.64 L Red Cell Distribution Width 16.7 H Sodium Level 134 L White Blood Count 6.2 Test 07/17/16 08:19 07/17/16 11:46 Bedside Glucose 305 H 145 Medications Current Medications Hydromorphone HCl (Dilaudid) 1 mg Q3 PRN IV PAIN Last administered on 07/17/16 11:56; Admin Dose 1 MG; Start 07/09/16 at 17:00 Diphenhydramine HCl (Benadryl) 50 mg Q6H PRN IV ITCHING Last administered on 11:56; Admin Dose 50 MG; Start 07/09/16 at 17:00 Non-Formulary Medication (Non-Formulary Insulin) INSULIN PUMP see la... [id number] Last administered on 07/17/16 09:53; Admin Dose 6 UNIT; Start 07/09/16 at 19 :45 Non-Formulary Medication (Non-Formulary Insulin) INSULIN PUMP see la... HS SC Last administered on 07/11/16 21:00; Admin Dose 2 UNIT; Start 07/09/16 at 21:00 Miscellaneous Information 1 ea NOTE XX ; Start 07/09/16 at 18:30 Glucose (Glutose) 15 gm Q15M PRN PO DECREASED GLUCOSE; Start 07/09/16 at 18:30 Glucose (Glutose) 22.5 gm Q15M PRN PO DECREASED GLUCOSE; Start 07/09/16 at 18: 30 Dextrose (D50w Syringe) 25 ml Q15M PRN IV DECREASED GLUCOSE; Start 07/09/16 at 18:30 Dextrose (D50w Syringe) 50 ml Q15M PRN IV DECREASED GLUCOSE; Start 07/09/16 at 18:30 Glucagon (Glucagen) 1 mg Q15M PRN IM DECREASED GLUCOSE; Start 07/09/16 at 18:30 Glucose (Glutose) 15 gm Q15M PRN BUCCAL DECREASED GLUCOSE; Start 07/09/16 at 18 :30 Aspirin (Halfprin) 81 mg DAILY PO Last administered on 07/16/16 08:44; Admin Dose 81 MG; Start 07/10/16 at 09:00 Atorvastatin Calcium (Lipitor) 80 mg QHS PO Last administered on 07/16/16 20:59 ; Admin Dose 80 MG; Start 07/10/16 at 21:00 Clonidine (Catapres) 0.1 mg Q6 PO Last administered on 07/17/16 12:46; Admin Dose 0.1 MG; Start 07/10/16 at 12:00 Isosorbide Mononitrate (Imdur) 60 mg DAILY PO Last administered on 07/13/16 08 :27; Admin Dose 60 MG; Start 07/10/16 at 10:00 Lactobacillus Acidoph/Bulgaricus (Floranex) 1 tab TID PO Last administered on 12:45; Admin Dose 1 TAB; Start 07/10/16 at 09:00 Metoprolol Succinate (Toprol Xl) 50 mg BID PO Last administered on 07/15/16 20 :16; Admin Dose 50 MG; Start 07/10/16 at 10:00 Pramipexole (Mirapex) 0.25 mg HS PO Last administered on 07/16/16 20:59; Admin Dose 0.25 MG; Start 07/10/16 at 21:00 Prasugrel (Effient) 10 mg DAILY PO Last administered on 07/16/16 08:44; Admin Dose 10 MG; Start 07/10/16 at 10:30 Acetaminophen (Tylenol Tab) 500 mg Q4H PRN PO PAIN AND OR ELEVATED TEMP; Start 07/10/16 at 09:00 Ondansetron HCl (Zofran Inj) 4 mg Q6H PRN IV NAUSEA AND/OR VOMITING Last administered on 07/11/16 12:04; Admin Dose 4 MG; Start 07/10/16 at 09:00 Vancomycin HCl (Vancomycin Oral Syringe) 125 mg Q6 PO Last administered on 12:54; Admin Dose 125 MG; Start 07/10/16 at 12:00 Cholestyramine Resin (Questran Light) 4 gm BID PO Last administered on 09:06; Admin Dose 4 GM; Start 07/11/16 at 09:00 Gabapentin (Neurontin) 600 mg TID PO Last administered on 07/17/16 12:46; Admin Dose 600 MG; Start 07/14/16 at 21:00 Pantoprazole (Protonix Tab) 40 mg DAILY@06 PO Last administered on 07/17/16 08: 15; Admin Dose 40 MG; Start 07/16/16 at 06:00 Assessment/Plan Chief Complaint/Hosp Course Ass 1. Leg pain. Likely neuropathic in part. Possibly vascular component. 2. Marked peripheral arterial disease per CT. 3. Possible right lumbar radiculopathy, long standing 3. Renal Failure Rec. 1. Continue Gabapentin to 600 mg tid. 2. Patient to have vascular procedure. Cancelled today apparently due to scheduling problem. 3. Consider Ortho or Neurosurgery eval re the possible lumbar radiculopathy, in the future. Problems: ENMA GRAHAM MD Jul 17, 2016 13:19
[2016-07-17 13:25] LABS: MYELOPEROXIDASE ANTIBODY <1.0 AI; PROTEINASE-3 ANTIBODY <1.0 AI
--- NOTE | 2016-07-17 20:28 | CONS ---
Date/Time of Note Date/Time of Note DATE: 07/17/16 TIME: 20:27 Assessment/Plan Assessment/Plan Additional Assessment/Plan Chief Complaint/Hosp Course IMPRESSION: 1. Diarrhea. 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 Improved after Questran restarted. C. diff negative.better 2. Diabetes mellitus. 3. Renal failure. 4. Coronary artery disease. 5. Hypertension. PLAN: 1. Continue Questran 2. if diarrhea do not improve, can titrate up Questran 3. can also consider colonoscopy to r/o microscopic colitis if diarrhea do not improve. 4. awaiting vascular study Consultation Date/Type/Reason Admit Date/Time Jul 11, 2016 at 12:19 Type of Consultation: Rheum 24 HR Interval Summary Constitutional: improved Exam/Review of Systems Vital Signs Vitals Vital Signs Date Time Temp Pulse Resp B/P Pulse Ox O2 Delivery O2 Flow Rate FiO2 07/17/16 17:50 72 106/74 07/17/16 11:00 18 07/17/16 08:21 97.7 98 Intake and Output 07/16/16 07/16/16 07/17/16 15:00 23:00 07:00 Intake Total 500 ml 1440 ml 600 ml Output Total 3000 ml 400 ml Balance -2500 ml 1040 ml 600 ml Exam Constitutional: alert, oriented, well developed Psych: nl mood/affect, no complaints Head: atraumatic, normocephalic Eyes: EOMI, PERRL, nl conjunctiva, nl lids, nl sclera ENMT: nl external ears & nose, nl lips & teeth, nl nasal mucosa & septum Neck: non-tender, supple Respiratory: clear to auscultation, normal air movement Cardiovascular: nl pulses, regular rate and rhythm Gastrointestinal: nl liver, spleen, non-tender, soft Musculoskeletal: nl extremities to inspection, nl gait and stance Extremities: normal pulses 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: MANAGED CARE NURSE II-XII intact, nl mental status, nl speech, nl strength Skin: nl turgor, No rash or lesions Lymph: nl lymph nodes Results Result Diagram: 07/17/1651707/17/1618 Results 24 hrs Laboratory Tests Test 07/16/16 20:35 07/16/16 23:59 07/17/16 05:18 07/17/16 08:19 Bedside Glucose 78 155 305 H Anion Gap 19 H Basophils # 0.0 Basophils % 0.6 Blood Morphology Comment Blood Urea Nitrogen 48 H Calcium Level 7.6 L Carbon Dioxide Level 26 Chloride Level 95 L Creatinine 4.67 H Eosinophils # 0.6 H Eosinophils % 9.7 H Glucose Level 331 #H Hematocrit 33.3 L Hemoglobin 11.0 L Lymphocytes # 1.0 Lymphocytes % 16.8 Magnesium Level 1.9 Mean Corpuscular Hemoglobin 30.2 Mean Corpuscular Hemoglobin Concent 33.0 Mean Corpuscular Volume 91.6 Mean Platelet Volume 9.6 Monocytes # 0.9 Monocytes % 14.5 H Neutrophils # 3.6 Neutrophils % 58.4 Nucleated Red Blood Cells # 0.0 Nucleated Red Blood Cells % 0.0 Platelet Count 176 Potassium Level 5.9 H Red Blood Count 3.64 L Red Cell Distribution Width 16.7 H Sodium Level 134 L White Blood Count 6.2 Test 07/17/16 11:46 07/17/16 17:29 Bedside Glucose 145 223 H Medications Medications Current Medications Hydromorphone HCl (Dilaudid) 1 mg Q3 PRN IV PAIN Last administered on 07/17/16 17:52; Admin Dose 1 MG; Start 07/09/16 at 17:00 Diphenhydramine HCl (Benadryl) 50 mg Q6H PRN IV ITCHING Last administered on 17:52; Admin Dose 50 MG; Start 07/09/16 at 17:00 Non-Formulary Medication (Non-Formulary Insulin) INSULIN PUMP see la... [id number] Last administered on 07/17/16 17:34; Admin Dose 3 UNIT; Start 07/09/16 at 19 :45 Non-Formulary Medication (Non-Formulary Insulin) INSULIN PUMP see la... HS SC Last administered on 07/11/16 21:00; Admin Dose 2 UNIT; Start 07/09/16 at 21:00 Miscellaneous Information 1 ea NOTE XX ; Start 07/09/16 at 18:30 Glucose (Glutose) 15 gm Q15M PRN PO DECREASED GLUCOSE; Start 07/09/16 at 18:30 Glucose (Glutose) 22.5 gm Q15M PRN PO DECREASED GLUCOSE; Start 07/09/16 at 18: 30 Dextrose (D50w Syringe) 25 ml Q15M PRN IV DECREASED GLUCOSE; Start 07/09/16 at 18:30 Dextrose (D50w Syringe) 50 ml Q15M PRN IV DECREASED GLUCOSE; Start 07/09/16 at 18:30 Glucagon (Glucagen) 1 mg Q15M PRN IM DECREASED GLUCOSE; Start 07/09/16 at 18:30 Glucose (Glutose) 15 gm Q15M PRN BUCCAL DECREASED GLUCOSE; Start 07/09/16 at 18 :30 Aspirin (Halfprin) 81 mg DAILY PO Last administered on 07/16/16 08:44; Admin Dose 81 MG; Start 07/10/16 at 09:00 Atorvastatin Calcium (Lipitor) 80 mg QHS PO Last administered on 07/16/16 20:59 ; Admin Dose 80 MG; Start 07/10/16 at 21:00 Clonidine (Catapres) 0.1 mg Q6 PO Last administered on 07/17/16 12:46; Admin Dose 0.1 MG; Start 07/10/16 at 12:00 Isosorbide Mononitrate (Imdur) 60 mg DAILY PO Last administered on 07/13/16 08 :27; Admin Dose 60 MG; Start 07/10/16 at 10:00 Lactobacillus Acidoph/Bulgaricus (Floranex) 1 tab TID PO Last administered on 12:45; Admin Dose 1 TAB; Start 07/10/16 at 09:00 Metoprolol Succinate (Toprol Xl) 50 mg BID PO Last administered on 07/15/16 20 :16; Admin Dose 50 MG; Start 07/10/16 at 10:00 Pramipexole (Mirapex) 0.25 mg HS PO Last administered on 07/16/16 20:59; Admin Dose 0.25 MG; Start 07/10/16 at 21:00 Prasugrel (Effient) 10 mg DAILY PO Last administered on 07/16/16 08:44; Admin Dose 10 MG; Start 07/10/16 at 10:30 Acetaminophen (Tylenol Tab) 500 mg Q4H PRN PO PAIN AND OR ELEVATED TEMP; Start 07/10/16 at 09:00 Ondansetron HCl (Zofran Inj) 4 mg Q6H PRN IV NAUSEA AND/OR VOMITING Last administered on 07/11/16 12:04; Admin Dose 4 MG; Start 07/10/16 at 09:00 Vancomycin HCl (Vancomycin Oral Syringe) 125 mg Q6 PO Last administered on 17:52; Admin Dose 125 MG; Start 07/10/16 at 12:00 Cholestyramine Resin (Questran Light) 4 gm BID PO Last administered on 09:06; Admin Dose 4 GM; Start 07/11/16 at 09:00 Gabapentin (Neurontin) 600 mg TID PO Last administered on 07/17/16 12:46; Admin Dose 600 MG; Start 07/14/16 at 21:00 Pantoprazole (Protonix Tab) 40 mg DAILY@06 PO Last administered on 07/17/16 08: 15; Admin Dose 40 MG; Start 07/16/16 at 06:00 NIYAH REED MD Jul 17, 2016 20:28
[2016-07-17] MEDS: PRAMIPEXOLE 0.25 MG TAB PO SCH (21:00)
[2016-07-17] MEDS: ATORVASTATIN 80 MG TAB PO SCH (21:05)
[2016-07-18] MEDS: VANCOMYCIN HCL 250 MG/5ML POSYG PO SCH ×4 (00:11→17:44)
[2016-07-18] MEDS: HYDROmorphONE 1 MG/ML SYG IV PRN ×7 (02:54→20:53)
[2016-07-18] MEDS: DIPHENHYDRAMINE 50 MG INJ IV PRN ×3 (05:50→17:45)
[2016-07-18 06:17] LABS: CREATININE 5.34 mg/dl (0.61-1.24)
[2016-07-18 06:18] LABS: CALCIUM 7.7 mg/dl (8.4-10.2)
[2016-07-18 06:37] LABS: BASOPHILS % 0.7 % (0.0-2.0); EOSINOPHILS # 0.7 10^3/ul (0.0-0.5); EOSINOPHILS % 10.2 % (0.0-7.0); HEMATOCRIT 33.5 % (42.0-52.0); HEMOGLOBIN 11.3 g/dl (14.0-18.0); LYMPHOCYTES # 1.2 10^3/ul (0.8-2.9); LYMPHOCYTES % 18.2 % (15.0-51.0); MEAN CORPUSCULAR HEMOGLOBIN 30.8 pg (29.0-33.0); MEAN CORPUSCULAR HGB CONC 33.8 g/dl (32.0-37.0); MEAN CORPUSCULAR VOLUME 91.2 fl (82.0-101.0); MEAN PLATELET VOLUME 9.6 fl (7.4-10.4); MONOCYTE # 1.1 10^3/ul (0.3-0.9); MONOCYTES % 15.6 % (0.0-11.0); NEUTROPHIL # 3.7 10^3/ul (1.6-7.5); NEUTROPHILS % 55.3 % (39.0-77.0); PLATELET COUNT 181 10^3/UL (140-440); RED BLOOD COUNT 3.68 10^6/ul (4.70-6.10); RED CELL DISTRIBUTION WIDTH 16.2 % (11.5-14.5); UNCORRECTED WBC 6.8 10^3/ul (4.8-10.8); WHITE BLOOD COUNT 6.8 10^3/ul (4.8-10.8)
[2016-07-18 07:51] LABS: CONDITION 1; LH ANALYZER COMMENTS 1
[2016-07-18 08:02] VITALS: BP 144/79; RESP 20
--- NOTE | 2016-07-18 08:45 | CONS ---
Date/Time of Note Date/Time of Note DATE: 07/18/16 TIME: 08:41 Assessment/Plan Assessment/Plan Chief Complaint/Hosp Course #1 end-stage renal disease, on maintenance hemodialysis Thursday.He had dialysis yesterday .Will order dialysis for tomorrow . #2 bilateral foot pain.He has a high grade stenosis in the L superfiscial femoral artery and other diffuse ASCVD , vascular W/U is in progress . He was scheduled for an angiogram and angioplasty yesterday ; however it was canceled and rescheduled for 07/20/16. #3 anemia. There is no history of blood loss.will order stool for OB #4 hyperkalemia . I have spoken to pharmacy to order Veltassa for hyperkalemia . He started the Veltassa yesterday . His potassium today is 5 which means the Veltassa is working .. Problems: Consultation Date/Type/Reason Admit Date/Time Jul 11, 2016 at 12:19 Type of Consultation: renal 24 HR Interval Summary Free Text/Dictation He is awake and alert today . Constitutional: no complaints Exam/Review of Systems Vital Signs Vitals Vital Signs Date Time Temp Pulse Resp B/P Pulse Ox O2 Delivery O2 Flow Rate FiO2 07/18/16 08:02 98.3 78 20 144/79 98 07/17/16 21:13 Room Air Intake and Output 07/17/16 07/17/16 07/18/16 15:00 23:00 07:00 Intake Total 500 ml 840 ml 200 ml Output Total 2500 ml 200 ml 100 ml Balance -2000 ml 640 ml 100 ml Exam Constitutional: alert, oriented, well developed Psych: nl mood/affect, no complaints Respiratory: clear to auscultation, normal air movement Cardiovascular: nl pulses, regular rate and rhythm Musculoskeletal: nl extremities to inspection Results Result Diagram: 07/18/16 0530 07/18/16 0530 Results 24 hrs Laboratory Tests Test 07/17/16 11:46 07/17/16 17:29 07/17/16 21:09 07/18/16 05:30 Bedside Glucose 145 223 H 106 Anion Gap 21 H Basophils # 0.0 Basophils % 0.7 Blood Morphology Comment Blood Urea Nitrogen 45 H Calcium Level 7.7 L Carbon Dioxide Level 27 Chloride Level 95 L Creatinine 5.34 H Eosinophils # 0.7 H Eosinophils % 10.2 H Glucose Level 131 # Hematocrit 33.5 L Hemoglobin 11.3 L Lymphocytes # 1.2 Lymphocytes % 18.2 Mean Corpuscular Hemoglobin 30.8 Mean Corpuscular Hemoglobin Concent 33.8 Mean Corpuscular Volume 91.2 Mean Platelet Volume 9.6 Monocytes # 1.1 H Monocytes % 15.6 H Neutrophils # 3.7 Neutrophils % 55.3 Nucleated Red Blood Cells # 0.0 Nucleated Red Blood Cells % 0.0 Platelet Count 181 Potassium Level 5.0 Red Blood Count 3.68 L Red Cell Distribution Width 16.2 H Sodium Level 138 White Blood Count 6.8 Test 07/18/16 08:11 Bedside Glucose 191 Medications Medications Current Medications Hydromorphone HCl (Dilaudid) 1 mg Q3 PRN IV PAIN Last administered on 07/18/16 05:51; Admin Dose 1 MG; Start 07/09/16 at 17:00 Diphenhydramine HCl (Benadryl) 50 mg Q6H PRN IV ITCHING Last administered on 05:50; Admin Dose 50 MG; Start 07/09/16 at 17:00 Non-Formulary Medication (Non-Formulary Insulin) INSULIN PUMP see la... [id number] SC Last administered on 07/17/16 17:34; Admin Dose 3 UNIT; Start 07/09/16 at 19 :45 Non-Formulary Medication (Non-Formulary Insulin) INSULIN PUMP see la... HS SC Last administered on 07/11/16 21:00; Admin Dose 2 UNIT; Start 07/09/16 at 21:00 Miscellaneous Information 1 ea NOTE XX ; Start 07/09/16 at 18:30 Glucose (Glutose) 15 gm Q15M PRN PO DECREASED GLUCOSE; Start 07/09/16 at 18:30 Glucose (Glutose) 22.5 gm Q15M PRN PO DECREASED GLUCOSE; Start 07/09/16 at 18: 30 Dextrose (D50w Syringe) 25 ml Q15M PRN IV DECREASED GLUCOSE; Start 07/09/16 at 18:30 Dextrose (D50w Syringe) 50 ml Q15M PRN IV DECREASED GLUCOSE; Start 07/09/16 at 18:30 Glucagon (Glucagen) 1 mg Q15M PRN IM DECREASED GLUCOSE; Start 07/09/16 at 18:30 Glucose (Glutose) 15 gm Q15M PRN BUCCAL DECREASED GLUCOSE; Start 07/09/16 at 18 :30 Aspirin (Halfprin) 81 mg DAILY PO Last administered on 07/16/16 08:44; Admin Dose 81 MG; Start 07/10/16 at 09:00 Atorvastatin Calcium (Lipitor) 80 mg QHS PO Last administered on 07/17/16 21:05 ; Admin Dose 80 MG; Start 07/10/16 at 21:00 Clonidine (Catapres) 0.1 mg Q6 PO Last administered on 07/18/16 00:12; Admin Dose 0.1 MG; Start 07/10/16 at 12:00 Isosorbide Mononitrate (Imdur) 60 mg DAILY PO Last administered on 07/13/16 08 :27; Admin Dose 60 MG; Start 07/10/16 at 10:00 Lactobacillus Acidoph/Bulgaricus (Floranex) 1 tab TID PO Last administered on 21:05; Admin Dose 1 TAB; Start 07/10/16 at 09:00 Metoprolol Succinate (Toprol Xl) 50 mg BID PO Last administered on 07/17/16 21: 06; Admin Dose 50 MG; Start 07/10/16 at 10:00 Pramipexole (Mirapex) 0.25 mg HS PO Last administered on 07/16/16 20:59; Admin Dose 0.25 MG; Start 07/10/16 at 21:00 Prasugrel (Effient) 10 mg DAILY PO Last administered on 07/16/16 08:44; Admin Dose 10 MG; Start 07/10/16 at 10:30 Acetaminophen (Tylenol Tab) 500 mg Q4H PRN PO PAIN AND OR ELEVATED TEMP; Start 07/10/16 at 09:00 Ondansetron HCl (Zofran Inj) 4 mg Q6H PRN IV NAUSEA AND/OR VOMITING Last administered on 07/11/16 12:04; Admin Dose 4 MG; Start 07/10/16 at 09:00 Vancomycin HCl (Vancomycin Oral Syringe) 125 mg Q6 PO Last administered on 05:28; Admin Dose 125 MG; Start 07/10/16 at 12:00 Cholestyramine Resin (Questran Light) 4 gm BID PO Last administered on 21:06; Admin Dose 4 GM; Start 07/11/16 at 09:00 Gabapentin (Neurontin) 600 mg TID PO Last administered on 07/17/16 21:05; Admin Dose 600 MG; Start 07/14/16 at 21:00 Pantoprazole (Protonix Tab) 40 mg DAILY@06 PO Last administered on 07/17/16 08: 15; Admin Dose 40 MG; Start 07/16/16 at 06:00 DONY HOWARD MD Jul 18, 2016 08:45
[2016-07-18] MEDS: CHOLESTYRAMINE (LIGHT) 4 GM PACKET PO SCH ×2 (08:56→21:00)
[2016-07-18] MEDS: ASPIRIN (EC) 81 MG TAB PO SCH (08:57)
[2016-07-18] MEDS: GABAPENTIN 300 MG CAP PO SCH ×3 (08:57→20:58)
[2016-07-18] MEDS: PRASUGREL HYDROCHLORIDE 10 MG TABLET PO SCH (08:58)
[2016-07-18] MEDS: CALCIUM ACETATE 667 MG CAP PO SCH ×3 (08:58→17:45)
[2016-07-18] MEDS: SEVELAMER 800 MG TAB PO SCH ×3 (08:58→17:45)
[2016-07-18] MEDS: LACTOBACILLUS CHEW TAB PO SCH ×3 (08:58→20:58)
--- NOTE | 2016-07-18 09:00 | PN ---
Date/Time of Note Date/Time of Note DATE: 07/17/16 TIME: 14:54 Assessment/Plan Lines/Catheters IV C[facility]ter Type [facility]from [facility]): PORTACATH Assessment/Plan Chief Complaint/Hosp Course -End-stage renal disease: It seems that the patient's left upper extremity fistula is functioning well. Recommend continue with his hemodialysis sessions via the fistula. Patient also had his recent Perm-A-Cath removed. From a vascular standpoint, we will continue his fistula surveillance as an outpatient. -Bilateral lower extremity atherosclerosis: It seems the patient 's noninvasive vascular study identified that he may have a stenosis in his superficial femoral artery. Upon CT angiography he has bilateral LE infrainguinal atherosclerotic disease. I have discussed the findings with the patient and he would like to proceed with an Angiogram possible intervention of the LLE. Will schedule in the coming days upon medical lab director availability. Unfortunately, was not able to get a time will try again for Thursday. I have explained to patient this can be done as an outpt but he insists for it being done while he's here in the hospital. -Optimize vascular status (BP meds, diet, nutrition, exercise, sugar control, antiplatelets). -Discussed findings with plan and management with the patient and he understands. -Thank you for allowing us to partake in the care of your patient. Please call with any questions. Problems: Subjective 24 Hr Interval Summary no new vascular events overnight, Exam/Review of Systems Vital Signs Vitals Vital Signs Date Time Temp Pulse Resp B/P Pulse Ox O2 Delivery O2 Flow Rate FiO2 07/18/16 08:02 98.3 78 20 144/79 98 07/17/16 21:13 Room Air Intake and Output 07/17/16 07/17/16 07/18/16 15:00 23:00 07:00 Intake Total 500 ml 840 ml 200 ml Output Total 2500 ml 200 ml 100 ml Balance -2000 ml 640 ml 100 ml Exam Free Text/Dictation GENERAL: Alert and oriented x3. PULMONARY: Clear to auscultation bilaterally. CARDIOVASCULAR: S1, S2 present. ABDOMEN: Soft, nontender, nondistended. Bowel sounds positive. EXTREMITIES: Left upper extremity palpable brachial pulse. Motor, sensory intact. Capillary refill 2 to 3 seconds. Surgical scars all well healed. Fistula with bruit and thrill present Right lower extremity palpable femoral pulse, palpable pedal pulse. Motor and sensory intact. Capillary refill 3 seconds Left lower extremity palpable femoral pulse, faint pedal pulse. Motor and sensory intact. Capillary refill 2 to 3 seconds Results Result Diagram: 07/18/16 0530 07/18/16 0530 JOE BARR MD Jul 18, 2016 09:00
[2016-07-18] MEDS: ISOSORBIDE MONONITRATE(SR)60 MG TAB PO SCH (09:01)
[2016-07-18] MEDS: METOPROLOL (XL) 50 MG TAB PO SCH ×2 (09:02→21:03)
[2016-07-18] MEDS: PATIROMER CALCIUM SORBITEX 8.4 GM PKT PO SCH (12:02)
--- NOTE | 2016-07-18 14:10 | CONS ---
Date/Time of Note Date/Time of Note DATE: 07/18/16 TIME: 14:07 Consult Date/Type/Reason Admit Date/Time Jul 11, 2016 at 12:19 Type of Consultation: Rheum Subjective Continues about same. Less pain at feet overall. Objective Alert, oriented Chest clear Heart RRR Abd. soft. Ext. No synovitis. Less tenderness at feet Vital Signs Date Time Temp Pulse Resp B/P Pulse Ox O2 Delivery O2 Flow Rate FiO2 07/18/16 08:02 98.3 78 20 144/79 98 07/17/16 21:13 Room Air Intake and Output 07/17/16 07/17/16 07/18/16 15:00 23:00 07:00 Intake Total 500 ml 840 ml 200 ml Output Total 2500 ml 200 ml 100 ml Balance -2000 ml 640 ml 100 ml Results/Medications Result Diagram: 07/18/16 0530 07/18/16 0530 Results 24 hrs Laboratory Tests Test 07/17/16 17:29 07/17/16 21:09 07/18/16 05:30 07/18/16 08:11 Bedside Glucose 223 H 106 191 Anion Gap 21 H Basophils # 0.0 Basophils % 0.7 Blood Morphology Comment Blood Urea Nitrogen 45 H Calcium Level 7.7 L Carbon Dioxide Level 27 Chloride Level 95 L Creatinine 5.34 H Eosinophils # 0.7 H Eosinophils % 10.2 H Glucose Level 131 # Hematocrit 33.5 L Hemoglobin 11.3 L Lymphocytes # 1.2 Lymphocytes % 18.2 Mean Corpuscular Hemoglobin 30.8 Mean Corpuscular Hemoglobin Concent 33.8 Mean Corpuscular Volume 91.2 Mean Platelet Volume 9.6 Monocytes # 1.1 H Monocytes % 15.6 H Neutrophils # 3.7 Neutrophils % 55.3 Nucleated Red Blood Cells # 0.0 Nucleated Red Blood Cells % 0.0 Platelet Count 181 Potassium Level 5.0 Red Blood Count 3.68 L Red Cell Distribution Width 16.2 H Sodium Level 138 White Blood Count 6.8 Test 07/18/16 12:00 Bedside Glucose 226 H Medications Current Medications Hydromorphone HCl (Dilaudid) 1 mg Q3 PRN IV PAIN Last administered on 07/18/16t 11:53; Admin Dose 1 MG; Start 07/09/16 at 17:00 Diphenhydramine HCl (Benadryl) 50 mg Q6H PRN IV ITCHING Last administered on 11:53; Admin Dose 50 MG; Start 07/09/16 at 17:00 Non-Formulary Medication (Non-Formulary Insulin) INSULIN PUMP see la... [id number] SC Last administered on 07/18/16 11:00; Admin Dose 2 UNIT; Start 07/09/16 at 19 :45 Non-Formulary Medication (Non-Formulary Insulin) INSULIN PUMP see la... HS SC Last administered on 07/11/16 21:00; Admin Dose 2 UNIT; Start 07/09/16 at 21:00 Miscellaneous Information 1 ea NOTE XX ; Start 07/09/16 at 18:30 Glucose (Glutose) 15 gm Q15M PRN PO DECREASED GLUCOSE; Start 07/09/16 at 18:30 Glucose (Glutose) 22.5 gm Q15M PRN PO DECREASED GLUCOSE; Start 07/09/16 at 18: 30 Dextrose (D50w Syringe) 25 ml Q15M PRN IV DECREASED GLUCOSE; Start 07/09/16 at 18:30 Dextrose (D50w Syringe) 50 ml Q15M PRN IV DECREASED GLUCOSE; Start 07/09/16 at 18:30 Glucagon (Glucagen) 1 mg Q15M PRN IM DECREASED GLUCOSE; Start 07/09/16 at 18:30 Glucose (Glutose) 15 gm Q15M PRN BUCCAL DECREASED GLUCOSE; Start 07/09/16 at 18 :30 Aspirin (Halfprin) 81 mg DAILY PO Last administered on 07/18/16 08:57; Admin Dose 81 MG; Start 07/10/16 at 09:00 Atorvastatin Calcium (Lipitor) 80 mg QHS PO Last administered on 07/17/16 21:05 ; Admin Dose 80 MG; Start 07/10/16 at 21:00 Clonidine (Catapres) 0.1 mg Q6 PO Last administered on 07/18/16 12:05; Admin Dose 0.1 MG; Start 07/10/16 at 12:00 Isosorbide Mononitrate (Imdur) 60 mg DAILY PO Last administered on 07/18/16 09: 01; Admin Dose 60 MG; Start 07/10/16 at 10:00 Lactobacillus Acidoph/Bulgaricus (Floranex) 1 tab TID PO Last administered on 12:02; Admin Dose 1 TAB; Start 07/10/16 at 09:00 Metoprolol Succinate (Toprol Xl) 50 mg BID PO Last administered on 07/18/16 09: 02; Admin Dose 50 MG; Start 07/10/16 at 10:00 Prasugrel (Effient) 10 mg DAILY PO Last administered on 07/18/16 08:58; Admin Dose 10 MG; Start 07/10/16 at 10:30 Acetaminophen (Tylenol Tab) 500 mg Q4H PRN PO PAIN AND OR ELEVATED TEMP; Start 07/10/16 at 09:00 Ondansetron HCl (Zofran Inj) 4 mg Q6H PRN IV NAUSEA AND/OR VOMITING Last administered on 07/11/16 12:04; Admin Dose 4 MG; Start 07/10/16 at 09:00 Vancomycin HCl (Vancomycin Oral Syringe) 125 mg Q6 PO Last administered on 12:00; Admin Dose 125 MG; Start 07/10/16 at 12:00 Cholestyramine Resin (Questran Light) 4 gm BID PO Last administered on 08:56; Admin Dose 4 GM; Start 07/11/16 at 09:00 Gabapentin (Neurontin) 600 mg TID PO Last administered on 07/18/16 12:02; Admin Dose 600 MG; Start 07/14/16 at 21:00 Pantoprazole (Protonix Tab) 40 mg DAILY@06 PO Last administered on 07/17/16 08: 15; Admin Dose 40 MG; Start 07/16/16 at 06:00 Assessment/Plan Chief Complaint/Hosp Course Ass 1. Leg pain. Likely neuropathic in part. Possibly vascular component. 2. Marked peripheral arterial disease per CT. 3. Possible right lumbar radiculopathy, long standing 3. Renal Failure Rec. 1. Continue Gabapentin to 600 mg tid. 2. Patient to have vascular procedure probably thursday 3. Consider Ortho or Neurosurgery eval re the possible lumbar radiculopathy, in the future. Problems: ENMA GRAHAM MD Jul 18, 2016 14:09
--- NOTE | 2016-07-18 15:50 | PN ---
Date/Time of Note Date/Time of Note DATE: 07/18/16 TIME: 15:47 Assessment/Plan VTE Prophylaxis VTE Prophylaxis Intervention: SCD's Lines/Catheters IV Catheter Type (from [facility]): PORTACATH Assessment/Plan Chief Complaint/Hosp Course ASSESSMENT AND PLAN: 1. Diarrhea with recent history of Clostridium difficile colitis. Continue patient on vancomycin and Questran. Dr. Gomez is following in gastroenterology consultation 2. Dehydration secondary to diarrhea with recent history of Clostridium difficile colitis. Stool for C. difficile is negative. 3. Type 1 diabetes mellitus with diabetic nephropathy. Continue NovoLog per insulin pump. 4. End-stage renal disease, hemodialysis dependent. Dr. Hubbard is following the patient in nephrology consultation. We will continue dialysis per schedule. 5. Coronary artery disease. Continue Imdur and metoprolol. 6. Hypertension. 7. Bilateral lower extremities pain. Dr. Orosco is following and rheumatology consultation. 8. Lateral lower extremities atherosclerosis. is following in vascular surgery consultation. Plan for the left lower extremity angio with possible intervention on Thursday. Continue heparin for deep venous thrombosis prophylaxis and Pepcid for peptic ulcer disease prophylaxis. Further recommendations based on clinical course. Plan of care discussed with Dr. Rosales. Problems: Subjective 24 Hr Interval Summary Free Text/Dictation Patient denies diarrhea, complains of bilateral lower extremities pain, pending possible angio and possible vascular procedure on left lower extremities on Thursday Exam/Review of Systems Vital Signs Vitals Vital Signs Date Time Temp Pulse Resp B/P Pulse Ox O2 Delivery O2 Flow Rate FiO2 07/18/16 08:02 98.3 78 20 144/79 98 07/17/16 21:13 Room Air Intake and Output 07/17/16 07/17/16 07/18/16 15:00 23:00 07:00 Intake Total 500 ml 840 ml 200 ml Output Total 2500 ml 200 ml 100 ml Balance -2000 ml 640 ml 100 ml Exam GENERAL: Well-developed, well-nourished male, currently appears pale, awake, alert. HEENT: The patient has right eye prosthesis. Left pupil is equal, round, reactive to light and accommodation. NECK: Supple. No cervical lymphadenopathy, no thyromegaly. CHEST: Lungs clear bilaterally. There are no rhonchi, wheezes, rales noted. CARDIOVASCULAR: Normal S1, S2. No murmurs, gallops, clicks, rubs noted. ABDOMEN: Flat, soft, nondistended. The patient has generalized tenderness to epigastric tenderness on palpation. No guarding. EXTREMITIES: No edema, clubbing, cyanosis. Left upper extremity AV graft with a palpable thrill and audible bruit. SKIN: No rash, petechiae noted. NEUROLOGIC: The patient is awake, alert, and oriented x3. Results Result Diagram: 07/18/16 0530 07/18/16 0530 Results 24 hrs Laboratory Tests Test 07/17/16 17:29 07/17/16 21:09 07/18/16 05:30 07/18/16 08:11 Bedside Glucose 223 H 106 191 Anion Gap 21 H Basophils # 0.0 Basophils % 0.7 Blood Morphology Comment Blood Urea Nitrogen 45 H Calcium Level 7.7 L Carbon Dioxide Level 27 Chloride Level 95 L Creatinine 5.34 H Eosinophils # 0.7 H Eosinophils % 10.2 H Glucose Level 131 # Hematocrit 33.5 L Hemoglobin 11.3 L Lymphocytes # 1.2 Lymphocytes % 18.2 Mean Corpuscular Hemoglobin 30.8 Mean Corpuscular Hemoglobin Concent 33.8 Mean Corpuscular Volume 91.2 Mean Platelet Volume 9.6 Monocytes # 1.1 H Monocytes % 15.6 H Neutrophils # 3.7 Neutrophils % 55.3 Nucleated Red Blood Cells # 0.0 Nucleated Red Blood Cells % 0.0 Platelet Count 181 Potassium Level 5.0 Red Blood Count 3.68 L Red Cell Distribution Width 16.2 H Sodium Level 138 White Blood Count 6.8 Test 07/18/16 12:00 Bedside Glucose 226 H Medications Medications Current Medications Hydromorphone HCl (Dilaudid) 1 mg Q3 PRN IV PAIN Last administered on 07/18/16 15:01; Admin Dose 1 MG; Start 07/09/16 at 17:00 Diphenhydramine HCl (Benadryl) 50 mg Q6H PRN IV ITCHING Last administered on 11:53; Admin Dose 50 MG; Start 07/09/16 at 17:00 Non-Formulary Medication (Non-Formulary Insulin) INSULIN PUMP see la... [id number] Last administered on 07/18/16 14:17; Admin Dose 5 UNIT; Start 07/09/16 at 19 :45 Non-Formulary Medication (Non-Formulary Insulin) INSULIN PUMP see la... HS SC Last administered on 07/11/16 21:00; Admin Dose 2 UNIT; Start 07/09/16 at 21:00 Miscellaneous Information 1 ea NOTE XX ; Start 07/09/16 at 18:30 Glucose (Glutose) 15 gm Q15M PRN PO DECREASED GLUCOSE; Start 07/09/16 at 18:30 Glucose (Glutose) 22.5 gm Q15M PRN PO DECREASED GLUCOSE; Start 07/09/16 at 18: 30 Dextrose (D50w Syringe) 25 ml Q15M PRN IV DECREASED GLUCOSE; Start 07/09/16 at 18:30 Dextrose (D50w Syringe) 50 ml Q15M PRN IV DECREASED GLUCOSE; Start 07/09/16 at 18:30 Glucagon (Glucagen) 1 mg Q15M PRN IM DECREASED GLUCOSE; Start 07/09/16 at 18:30 Glucose (Glutose) 15 gm Q15M PRN BUCCAL DECREASED GLUCOSE; Start 07/09/16 at 18 :30 Aspirin (Halfprin) 81 mg DAILY PO Last administered on 07/18/16 08:57; Admin Dose 81 MG; Start 07/10/16 at 09:00 Atorvastatin Calcium (Lipitor) 80 mg QHS PO Last administered on 07/17/16 21:05 ; Admin Dose 80 MG; Start 07/10/16 at 21:00 Clonidine (Catapres) 0.1 mg Q6 PO Last administered on 07/18/16 12:05; Admin Dose 0.1 MG; Start 07/10/16 at 12:00 Isosorbide Mononitrate (Imdur) 60 mg DAILY PO Last administered on 07/18/16 09: 01; Admin Dose 60 MG; Start 07/10/16 at 10:00 Lactobacillus Acidoph/Bulgaricus (Floranex) 1 tab TID PO Last administered on 12:02; Admin Dose 1 TAB; Start 07/10/16 at 09:00 Metoprolol Succinate (Toprol Xl) 50 mg BID PO Last administered on 07/18/16 09: 02; Admin Dose 50 MG; Start 07/10/16 at 10:00 Prasugrel (Effient) 10 mg DAILY PO Last administered on 07/18/16 08:58; Admin Dose 10 MG; Start 07/10/16 at 10:30 Acetaminophen (Tylenol Tab) 500 mg Q4H PRN PO PAIN AND OR ELEVATED TEMP; Start 07/10/16 at 09:00 Ondansetron HCl (Zofran Inj) 4 mg Q6H PRN IV NAUSEA AND/OR VOMITING Last administered on 07/11/16 12:04; Admin Dose 4 MG; Start 07/10/16 at 09:00 Vancomycin HCl (Vancomycin Oral Syringe) 125 mg Q6 PO Last administered on 12:00; Admin Dose 125 MG; Start 07/10/16 at 12:00 Cholestyramine Resin (Questran Light) 4 gm BID PO Last administered on 08:56; Admin Dose 4 GM; Start 07/11/16 at 09:00 Gabapentin (Neurontin) 600 mg TID PO Last administered on 07/18/16 12:02; Admin Dose 600 MG; Start 07/14/16 at 21:00 Pantoprazole (Protonix Tab) 40 mg DAILY@06 PO Last administered on 07/17/16 08: 15; Admin Dose 40 MG; Start 07/16/16 at 06:00 ANGELINA CASTREJON Jul 18, 2016 15:50
--- NOTE | 2016-07-18 20:26 | CONS ---
Date/Time of Note Date/Time of Note DATE: 07/18/16 TIME: 20:25 Assessment/Plan Assessment/Plan Additional Assessment/Plan Additional Assessment/Plan Chief Complaint/Hosp Course IMPRESSION: 1. Diarrhea. 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 Improved after Questran restarted. C. Diff negative.better 2. Diabetes mellitus. 3. Renal failure. 4. Coronary artery disease. 5. Hypertension. 6.pain lower extremity PLAN: 1. Continue Questran 2. if diarrhea do not improve, can titrate up Questran 3. can also consider colonoscopy to r/o microscopic colitis if diarrhea do not improve. Consultation Date/Type/Reason Admit Date/Time Jul 11, 2016 at 12:19 Type of Consultation: Rheum 24 HR Interval Summary Constitutional: improved, no complaints Exam/Review of Systems Vital Signs Vitals Vital Signs Date Time Temp Pulse Resp B/P Pulse Ox O2 Delivery O2 Flow Rate FiO2 07/18/16 08:02 98.3 78 20 144/79 98 07/17/16 21:13 Room Air Intake and Output 07/17/16 07/17/16 07/18/16 15:00 23:00 07:00 Intake Total 500 ml 840 ml 200 ml Output Total 2500 ml 200 ml 100 ml Balance -2000 ml 640 ml 100 ml Exam Constitutional: alert, oriented, well developed Psych: nl mood/affect, no complaints Head: atraumatic, normocephalic Eyes: EOMI, PERRL, nl conjunctiva, nl lids, nl sclera ENMT: nl external ears & nose, nl lips & teeth, nl nasal mucosa & septum Neck: non-tender, supple Respiratory: clear to auscultation, normal air movement Cardiovascular: nl pulses, regular rate and rhythm Gastrointestinal: nl liver, spleen, non-tender, soft Musculoskeletal: nl extremities to inspection, nl gait and stance Extremities: normal pulses 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: 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 II-XII intact, nl mental status, nl speech, nl strength Skin: nl turgor, No rash or lesions Lymph: nl lymph nodes Results Result Diagram: 07/18/16 0530 07/18/16 0530 Results 24 hrs Laboratory Tests Test 07/17/16 21:09 07/17/16 23:00 07/18/16 05:30 07/18/16 08:11 Bedside Glucose 106 191 Stool Occult Blood NEGATIVE Anion Gap 21 H Basophils # 0.0 Basophils % 0.7 Blood Morphology Comment Blood Urea Nitrogen 45 H Calcium Level 7.7 L Carbon Dioxide Level 27 Chloride Level 95 L Creatinine 5.34 H Eosinophils # 0.7 H Eosinophils % 10.2 H Glucose Level 131 # Hematocrit 33.5 L Hemoglobin 11.3 L Lymphocytes # 1.2 Lymphocytes % 18.2 Mean Corpuscular Hemoglobin 30.8 Mean Corpuscular Hemoglobin Concent 33.8 Mean Corpuscular Volume 91.2 Mean Platelet Volume 9.6 Monocytes # 1.1 H Monocytes % 15.6 H Neutrophils # 3.7 Neutrophils % 55.3 Nucleated Red Blood Cells # 0.0 Nucleated Red Blood Cells % 0.0 Platelet Count 181 Potassium Level 5.0 Red Blood Count 3.68 L Red Cell Distribution Width 16.2 H Sodium Level 138 White Blood Count 6.8 Test 07/18/16 12:00 07/18/16 15:47 07/18/16 17:13 Bedside Glucose 226 H 76 133 Medications Medications Current Medications Hydromorphone HCl (Dilaudid) 1 mg Q3 PRN IV PAIN Last administered on 07/18/16 17:44; Admin Dose 1 MG; Start 07/09/16 at 17:00 Diphenhydramine HCl (Benadryl) 50 mg Q6H PRN IV ITCHING Last administered on 17:45; Admin Dose 50 MG; Start 07/09/16 at 17:00 Non-Formulary Medication (Non-Formulary Insulin) INSULIN PUMP see la... [id number] SC Last administered on 07/18/16 14:17; Admin Dose 5 UNIT; Start 07/09/16 at 19 :45 Non-Formulary Medication (Non-Formulary Insulin) INSULIN PUMP see la... HS SC Last administered on 07/11/16 21:00; Admin Dose 2 UNIT; Start 07/09/16 at 21:00 Miscellaneous Information 1 ea NOTE XX ; Start 07/09/16 at 18:30 Glucose (Glutose) 15 gm Q15M PRN PO DECREASED GLUCOSE; Start 07/09/16 at 18:30 Glucose (Glutose) 22.5 gm Q15M PRN PO DECREASED GLUCOSE; Start 07/09/16 at 18: 30 Dextrose (D50w Syringe) 25 ml Q15M PRN IV DECREASED GLUCOSE; Start 07/09/16 at 18:30 Dextrose (D50w Syringe) 50 ml Q15M PRN IV DECREASED GLUCOSE; Start 07/09/16 at 18:30 Glucagon (Glucagen) 1 mg Q15M PRN IM DECREASED GLUCOSE; Start 07/09/16 at 18:30 Glucose (Glutose) 15 gm Q15M PRN BUCCAL DECREASED GLUCOSE; Start 07/09/16 at 18 :30 Aspirin (Halfprin) 81 mg DAILY PO Last administered on 07/18/16 08:57; Admin Dose 81 MG; Start 07/10/16 at 09:00 Atorvastatin Calcium (Lipitor) 80 mg QHS PO Last administered on 07/17/16 21:05 ; Admin Dose 80 MG; Start 07/10/16 at 21:00 Clonidine (Catapres) 0.1 mg Q6 PO Last administered on 07/18/16 17:47; Admin Dose 0.1 MG; Start 07/10/16 at 12:00 Isosorbide Mononitrate (Imdur) 60 mg DAILY PO Last administered on 07/18/16 09: 01; Admin Dose 60 MG; Start 07/10/16 at 10:00 Lactobacillus Acidoph/Bulgaricus (Floranex) 1 tab TID PO Last administered on 12:02; Admin Dose 1 TAB; Start 07/10/16 at 09:00 Metoprolol Succinate (Toprol Xl) 50 mg BID PO Last administered on 07/18/16 09: 02; Admin Dose 50 MG; Start 07/10/16 at 10:00 Prasugrel (Effient) 10 mg DAILY PO Last administered on 07/18/16 08:58; Admin Dose 10 MG; Start 07/10/16 at 10:30 Acetaminophen (Tylenol Tab) 500 mg Q4H PRN PO PAIN AND OR ELEVATED TEMP; Start 07/10/16 at 09:00 Ondansetron HCl (Zofran Inj) 4 mg Q6H PRN IV NAUSEA AND/OR VOMITING Last administered on 07/11/16 12:04; Admin Dose 4 MG; Start 07/10/16 at 09:00 Vancomycin HCl (Vancomycin Oral Syringe) 125 mg Q6 PO Last administered on 17:44; Admin Dose 125 MG; Start 07/10/16 at 12:00 Cholestyramine Resin (Questran Light) 4 gm BID PO Last administered on 08:56; Admin Dose 4 GM; Start 07/11/16 at 09:00 Gabapentin (Neurontin) 600 mg TID PO Last administered on 07/18/16 12:02; Admin Dose 600 MG; Start 07/14/16 at 21:00 Pantoprazole (Protonix Tab) 40 mg DAILY@06 PO Last administered on 07/17/16 08: 15; Admin Dose 40 MG; Start 07/16/16 at 06:00 NIYAH REED MD Jul 18, 2016 20:26
[2016-07-18] MEDS: ATORVASTATIN 80 MG TAB PO SCH (20:58)
[2016-07-18 21:03] VITALS: BP 106/59; PULSE 71; RESP 16
[2016-07-19] VITALS (9 sets, daily range): BP systolic 97–127; BP diastolic 52–69; PULSE 75–80; RESP 16–18
[2016-07-19] MEDS: HYDROmorphONE 1 MG/ML SYG IV PRN ×8 (00:07→23:19)
[2016-07-19] MEDS: DIPHENHYDRAMINE 50 MG INJ IV PRN ×4 (00:07→19:52)
[2016-07-19] MEDS: VANCOMYCIN HCL 250 MG/5ML POSYG PO SCH ×5 (00:14→23:20)
[2016-07-19] MEDS: PANTOPRAZOLE (EC) 40 MG TAB PO SCH (05:56)
[2016-07-19 07:26] LABS: POTASSIUM 5.4 mmol/L (3.5-5.1)
[2016-07-19 07:28] LABS: CREATININE 7.28 mg/dl (0.61-1.24)
[2016-07-19 07:29] LABS: CALCIUM 7.5 mg/dl (8.4-10.2)
[2016-07-19] MEDS: CALCIUM ACETATE 667 MG CAP PO SCH ×3 (08:13→18:13)
[2016-07-19] MEDS: SEVELAMER 800 MG TAB PO SCH ×3 (08:13→18:13)
[2016-07-19] MEDS: PRASUGREL HYDROCHLORIDE 10 MG TABLET PO SCH (08:14)
[2016-07-19] MEDS: LACTOBACILLUS CHEW TAB PO SCH ×3 (08:14→21:07)
[2016-07-19] MEDS: GABAPENTIN 300 MG CAP PO SCH ×3 (08:14→21:07)
[2016-07-19] MEDS: ASPIRIN (EC) 81 MG TAB PO SCH (08:14)
[2016-07-19] MEDS: METOPROLOL (XL) 50 MG TAB PO SCH ×2 (09:00→21:07)
[2016-07-19] MEDS: ISOSORBIDE MONONITRATE(SR)60 MG TAB PO SCH (09:00)
[2016-07-19] MEDS: CHOLESTYRAMINE (LIGHT) 4 GM PACKET PO SCH ×2 (09:00→21:00)
--- NOTE | 2016-07-19 09:07 | CONS ---
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 (2) Diarrhea Status: Acute Comment: resolving (3) End stage renal failure on dialysis Status: Chronic Comment: for HD today...labs fine..K controlled Consultation Date/Type/Reason Admit Date/Time Jul 11, 2016 at 12:19 Initial Consult Date Type of Consultation: neph 24 HR Interval Summary Free Text/Dictation comfortable currently at rest Exam/Review of Systems Vital Signs Vitals Vital Signs Date Time Temp Pulse Resp B/P Pulse Ox O2 Delivery O2 Flow Rate FiO2 07/19/16 08:07 97.8 83 18 127/69 97 07/18/16 21:03 Room Air Intake and Output 07/18/16 07/18/16 07/19/16 14:59 22:59 06:59 Intake Total 720 ml 980 ml Output Total 100 ml 400 ml Balance 620 ml 580 ml Exam Constitutional: alert, oriented Respiratory: clear to auscultation Cardiovascular: regular rate and rhythm Results Result Diagram: 07/18/16 0530 07/19/16 0549 Results 24 hrs Laboratory Tests Test 07/18/16 12:00 07/18/16 15:47 07/18/16 17:13 07/18/16 21:07 Bedside Glucose 226 H 76 133 108 Test 07/19/16 05:49 07/19/16 06:04 07/19/16 07:33 Anion Gap 19 H Blood Urea Nitrogen 71 H Calcium Level 7.5 L Carbon Dioxide Level 23 Chloride Level 97 Creatinine 7.28 H Glucose Level 125 Magnesium Level 2.0 Potassium Level 5.4 H Sodium Level 134 L Bedside Glucose 130 172 Medications Medications Current Medications Hydromorphone HCl (Dilaudid) 1 mg Q3 PRN IV PAIN Last administered on 07/19/16 08:55; Admin Dose 1 MG; Start 07/09/16 at 17:00 Diphenhydramine HCl (Benadryl) 50 mg Q6H PRN IV ITCHING Last administered on 05:52; Admin Dose 50 MG; Start 07/09/16 at 17:00 Non-Formulary Medication (Non-Formulary Insulin) INSULIN PUMP see la... [id number] SC Last administered on 07/18/16 14:17; Admin Dose 5 UNIT; Start 07/09/16 at 19 :45 Non-Formulary Medication (Non-Formulary Insulin) INSULIN PUMP see la... HS SC Last administered on 07/11/16 21:00; Admin Dose 2 UNIT; Start 07/09/16 at 21:00 Miscellaneous Information 1 ea NOTE XX ; Start 07/09/16 at 18:30 Glucose (Glutose) 15 gm Q15M PRN PO DECREASED GLUCOSE; Start 07/09/16 at 18:30 Glucose (Glutose) 22.5 gm Q15M PRN PO DECREASED GLUCOSE; Start 07/09/16 at 18: 30 Dextrose (D50w Syringe) 25 ml Q15M PRN IV DECREASED GLUCOSE; Start 07/09/16 at 18:30 Dextrose (D50w Syringe) 50 ml Q15M PRN IV DECREASED GLUCOSE; Start 07/09/16 at 18:30 Glucagon (Glucagen) 1 mg Q15M PRN IM DECREASED GLUCOSE; Start 07/09/16 at 18:30 Glucose (Glutose) 15 gm Q15M PRN BUCCAL DECREASED GLUCOSE; Start 07/09/16 at 18 :30 Aspirin (Halfprin) 81 mg DAILY PO Last administered on 07/19/16 08:14; Admin Dose 81 MG; Start 07/10/16 at 09:00 Atorvastatin Calcium (Lipitor) 80 mg QHS PO Last administered on 07/18/16 20:58 ; Admin Dose 80 MG; Start 07/10/16 at 21:00 Clonidine (Catapres) 0.1 mg Q6 PO Last administered on 07/19/16 05:58; Admin Dose 0.1 MG; Start 07/10/16 at 12:00 Isosorbide Mononitrate (Imdur) 60 mg DAILY PO Last administered on 07/18/16 09: 01; Admin Dose 60 MG; Start 07/10/16 at 10:00 Lactobacillus Acidoph/Bulgaricus (Floranex) 1 tab TID PO Last administered on 08:14; Admin Dose 1 TAB; Start 07/10/16 at 09:00 Metoprolol Succinate (Toprol Xl) 50 mg BID PO Last administered on 07/18/16 21: 03; Admin Dose 50 MG; Start 07/10/16 at 10:00 Prasugrel (Effient) 10 mg DAILY PO Last administered on 07/19/16 08:14; Admin Dose 10 MG; Start 07/10/16 at 10:30 Acetaminophen (Tylenol Tab) 500 mg Q4H PRN PO PAIN AND OR ELEVATED TEMP; Start 07/10/16 at 09:00 Ondansetron HCl (Zofran Inj) 4 mg Q6H PRN IV NAUSEA AND/OR VOMITING Last administered on 07/11/16 12:04; Admin Dose 4 MG; Start 07/10/16 at 09:00 Vancomycin HCl (Vancomycin Oral Syringe) 125 mg Q6 PO Last administered on 05:52; Admin Dose 125 MG; Start 07/10/16 at 12:00 Cholestyramine Resin (Questran Light) 4 gm BID PO Last administered on 08:56; Admin Dose 4 GM; Start 07/11/16 at 09:00 Gabapentin (Neurontin) 600 mg TID PO Last administered on 07/19/16 08:14; Admin Dose 600 MG; Start 07/14/16 at 21:00 Pantoprazole (Protonix Tab) 40 mg DAILY@06 PO Last administered on 07/19/16 05: 56; Admin Dose 40 MG; Start 07/16/16 at 06:00 BING DOMINGUEZ MD Jul 19, 2016 09:07
[2016-07-19] MEDS: LORAZEPAM 2 MG INJ IV SCH (10:45)
[2016-07-19] MEDS: DIPHENHYDRAMINE 50 MG INJ IV SCH (10:46)
[2016-07-19 11:38] LABS: HEMATOCRIT 32.2 % (42.0-52.0); HEMOGLOBIN 10.3 g/dl (14.0-18.0); MEAN CORPUSCULAR VOLUME 94.4 fl (82.0-101.0); RED BLOOD COUNT 3.41 10^6/ul (4.70-6.10); WHITE BLOOD COUNT 6.9 10^3/ul (4.8-10.8)
[2016-07-19 11:39] LABS: BASOPHIL # 0.1 10^3/ul (0.0-0.1); EOSINOPHILS # 0.6 10^3/ul (0.0-0.5); EOSINOPHILS % 9.3 % (0.0-7.0); LYMPHOCYTES # 1.4 10^3/ul (0.8-2.9); LYMPHOCYTES % 20.9 % (15.0-51.0); MEAN CORPUSCULAR HEMOGLOBIN 30.2 pg (29.0-33.0); MEAN PLATELET VOLUME 11.7 fl (7.4-10.4); MONOCYTE # 0.7 10^3/ul (0.3-0.9); MONOCYTES % 10.8 % (0.0-11.0); NEUTROPHILS % 57.7 % (39.0-77.0); PLATELET COUNT 185 10^3/UL (140-440); RED CELL DISTRIBUTION WIDTH 15.2 % (11.5-14.5)
--- NOTE | 2016-07-19 11:44 | PN ---
Date/Time of Note Date/Time of Note DATE: 07/19/16 TIME: 11:44 Assessment/Plan VTE Prophylaxis VTE Prophylaxis Intervention: other Lines/Catheters [facility] Assessment/Plan Chief Complaint/Hosp Course 1. Diarrhea with recent history of Clostridium difficile colitis. Continue patient on vancomycin and Questran. Dr. Gomez is following in gastroenterology consultation 2. Dehydration secondary to diarrhea with recent history of Clostridium difficile colitis. Stool for C. difficile is negative. 3. Type 1 diabetes mellitus with diabetic nephropathy. Continue NovoLog per insulin pump. 4. End-stage renal disease, hemodialysis dependent. Dr. Hubbard is following the patient in nephrology consultation. We will continue dialysis per schedule. 5. Coronary artery disease. Continue Imdur and metoprolol. 6. Hypertension. 7. Bilateral lower extremities pain. Dr. Orosco is following and rheumatology consultation. 8. Lateral lower extremities atherosclerosis. is following in vascular surgery consultation. Plan for the left lower extremity angio with possible intervention on Thursday. Problems: Subjective 24 Hr Interval Summary Free Text/Dictation Patient is resting comfortably receiving hemodialysis Exam/Review of Systems Vital Signs Vitals Vital Signs Date Time Temp Pulse Resp B/P Pulse Ox O2 Delivery O2 Flow Rate FiO2 07/19/16 08:07 97.8 83 18 127/69 97 07/18/16 21:03 Room Air Intake and Output 07/18/16 07/18/16 07/19/16 15:00 23:00 07:00 Intake Total 720 ml 980 ml Output Total 100 ml 400 ml Balance 620 ml 580 ml Exam Constitutional: well developed Head: atraumatic, normocephalic Respiratory: diminished breath sounds Cardiovascular: regular rate and rhythm Gastrointestinal: non-tender, soft Extremities: normal pulses Results Result Diagram: 07/19/16 0549 07/19/16 0549 Results 24 hrs Laboratory Tests Test 07/18/16 12:00 07/18/16 15:47 07/18/16 17:13 07/18/16 21:07 Bedside Glucose 226 H 76 133 108 Test 07/19/16 05:49 07/19/16 06:04 07/19/16 07:33 07/19/16 10:49 Anion Gap 19 H Basophils # 0.1 Basophils % 1.0 Blood Urea Nitrogen 71 H Calcium Level 7.5 L Carbon Dioxide Level 23 Chloride Level 97 Creatinine 7.28 H Eosinophils # 0.6 H Eosinophils % 9.3 H Glucose Level 125 Hematocrit 32.2 L Hemoglobin 10.3 L Lymphocytes # 1.4 Lymphocytes % 20.9 Magnesium Level 2.0 Mean Corpuscular Hemoglobin 30.2 Mean Corpuscular Hemoglobin Concent 32.0 Mean Corpuscular Volume 94.4 Mean Platelet Volume 11.7 #H Monocytes # 0.7 Monocytes % 10.8 Neutrophils # 4.0 Neutrophils % 57.7 Nucleated Red Blood Cells # 0.0 Nucleated Red Blood Cells % 0.0 Platelet Count 185 Potassium Level 5.4 H Red Blood Count 3.41 L Red Cell Distribution Width 15.2 H Sodium Level 134 L White Blood Count 6.9 Bedside Glucose 130 172 156 Medications Medications Current Medications Hydromorphone HCl (Dilaudid) 1 mg Q3 PRN IV PAIN Last administered on 07/19/16 08:55; Admin Dose 1 MG; Start 07/09/16 at 17:00 Diphenhydramine HCl (Benadryl) 50 mg Q6H PRN IV ITCHING Last administered on 05:52; Admin Dose 50 MG; Start 07/09/16 at 17:00 Non-Formulary Medication (Non-Formulary Insulin) INSULIN PUMP see la... [id number] Last administered on 07/18/16 14:17; Admin Dose 5 UNIT; Start 07/09/16 at 19 :45 Non-Formulary Medication (Non-Formulary Insulin) INSULIN PUMP see la... HS SC Last administered on 07/11/16 21:00; Admin Dose 2 UNIT; Start 07/09/16 at 21:00 Miscellaneous Information 1 ea NOTE XX ; Start 07/09/16 at 18:30 Glucose (Glutose) 15 gm Q15M PRN PO DECREASED GLUCOSE; Start 07/09/16 at 18:30 Glucose (Glutose) 22.5 gm Q15M PRN PO DECREASED GLUCOSE; Start 07/09/16 at 18: 30 Dextrose (D50w Syringe) 25 ml Q15M PRN IV DECREASED GLUCOSE; Start 07/09/16 at 18:30 Dextrose (D50w Syringe) 50 ml Q15M PRN IV DECREASED GLUCOSE; Start 07/09/16 at 18:30 Glucagon (Glucagen) 1 mg Q15M PRN IM DECREASED GLUCOSE; Start 07/09/16 at 18:30 Glucose (Glutose) 15 gm Q15M PRN BUCCAL DECREASED GLUCOSE; Start 07/09/16 at 18 :30 Aspirin (Halfprin) 81 mg DAILY PO Last administered on 07/19/16 08:14; Admin Dose 81 MG; Start 07/10/16 at 09:00 Atorvastatin Calcium (Lipitor) 80 mg QHS PO Last administered on 07/18/16 20:58 ; Admin Dose 80 MG; Start 07/10/16 at 21:00 Clonidine (Catapres) 0.1 mg Q6 PO Last administered on 07/19/16 05:58; Admin Dose 0.1 MG; Start 07/10/16 at 12:00 Isosorbide Mononitrate (Imdur) 60 mg DAILY PO Last administered on 07/18/16 09: 01; Admin Dose 60 MG; Start 07/10/16 at 10:00 Lactobacillus Acidoph/Bulgaricus (Floranex) 1 tab TID PO Last administered on 08:14; Admin Dose 1 TAB; Start 07/10/16 at 09:00 Metoprolol Succinate (Toprol Xl) 50 mg BID PO Last administered on 07/18/16 21: 03; Admin Dose 50 MG; Start 07/10/16 at 10:00 Prasugrel (Effient) 10 mg DAILY PO Last administered on 07/19/16 08:14; Admin Dose 10 MG; Start 07/10/16 at 10:30 Acetaminophen (Tylenol Tab) 500 mg Q4H PRN PO PAIN AND OR ELEVATED TEMP; Start 07/10/16 at 09:00 Ondansetron HCl (Zofran Inj) 4 mg Q6H PRN IV NAUSEA AND/OR VOMITING Last administered on 07/11/16 12:04; Admin Dose 4 MG; Start 07/10/16 at 09:00 Vancomycin HCl (Vancomycin Oral Syringe) 125 mg Q6 PO Last administered on 05:52; Admin Dose 125 MG; Start 07/10/16 at 12:00 Cholestyramine Resin (Questran Light) 4 gm BID PO Last administered on 08:56; Admin Dose 4 GM; Start 07/11/16 at 09:00 Gabapentin (Neurontin) 600 mg TID PO Last administered on 07/19/16 08:14; Admin Dose 600 MG; Start 07/14/16 at 21:00 Pantoprazole (Protonix Tab) 40 mg DAILY@06 PO Last administered on 07/19/16 05: 56; Admin Dose 40 MG; Start 07/16/16 at 06:00 SHANTE SALDAÑA Jul 19, 2016 11:44
--- NOTE | 2016-07-19 11:54 | CONS ---
Date/Time of Note Date/Time of Note DATE: 07/19/16 TIME: 11:53 Assessment/Plan Assessment/Plan Additional Assessment/Plan IMPRESSION: 1. Diarrhea. 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 Improved after Questran restarted. C. Diff negative.better 2. Diabetes mellitus. 3. Renal failure. 4. Coronary artery disease. 5. Hypertension. 6.pain lower extremity PLAN: 1. Continue Questran 2. if diarrhea do not improve, can titrate up Questran 3. can also consider colonoscopy to r/o microscopic colitis if diarrhea do not improve. 4.vascular study on Thursday Consultation Date/Type/Reason Admit Date/Time Jul 11, 2016 at 12:19 Type of Consultation: neph 24 HR Interval Summary Constitutional: improved Exam/Review of Systems Vital Signs Vitals Vital Signs Date Time Temp Pulse Resp B/P Pulse Ox O2 Delivery O2 Flow Rate FiO2 07/19/16 08:07 97.8 83 18 127/69 97 07/18/16 21:03 Room Air Intake and Output 07/18/16 07/18/16 07/19/16 15:00 23:00 07:00 Intake Total 720 ml 980 ml Output Total 100 ml 400 ml Balance 620 ml 580 ml Results Result Diagram: 07/19/16 0549 07/19/16 0549 Results 24 hrs Laboratory Tests Test 07/18/16 12:00 07/18/16 15:47 07/18/16 17:13 07/18/16 21:07 Bedside Glucose 226 H 76 133 108 Test 07/19/16 05:49 07/19/16 06:04 07/19/16 07:33 07/19/16 10:49 Anion Gap 19 H Basophils # 0.1 Basophils % 1.0 Blood Urea Nitrogen 71 H Calcium Level 7.5 L Carbon Dioxide Level 23 Chloride Level 97 Creatinine 7.28 H Eosinophils # 0.6 H Eosinophils % 9.3 H Glucose Level 125 Hematocrit 32.2 L Hemoglobin 10.3 L Lymphocytes # 1.4 Lymphocytes % 20.9 Magnesium Level 2.0 Mean Corpuscular Hemoglobin 30.2 Mean Corpuscular Hemoglobin Concent 32.0 Mean Corpuscular Volume 94.4 Mean Platelet Volume 11.7 #H Monocytes # 0.7 Monocytes % 10.8 Neutrophils # 4.0 Neutrophils % 57.7 Nucleated Red Blood Cells # 0.0 Nucleated Red Blood Cells % 0.0 Platelet Count 185 Potassium Level 5.4 H Red Blood Count 3.41 L Red Cell Distribution Width 15.2 H Sodium Level 134 L White Blood Count 6.9 Bedside Glucose 130 172 156 Medications Medications Current Medications Hydromorphone HCl (Dilaudid) 1 mg Q3 PRN IV PAIN Last administered on 07/19/16 08:55; Admin Dose 1 MG; Start 07/09/16 at 17:00 Diphenhydramine HCl (Benadryl) 50 mg Q6H PRN IV ITCHING Last administered on 05:52; Admin Dose 50 MG; Start 07/09/16 at 17:00 Non-Formulary Medication (Non-Formulary Insulin) INSULIN PUMP see la... [id number] Last administered on 07/18/16 14:17; Admin Dose 5 UNIT; Start 07/09/16 at 19 :45 Non-Formulary Medication (Non-Formulary Insulin) INSULIN PUMP see la... HS SC Last administered on 07/11/16 21:00; Admin Dose 2 UNIT; Start 07/09/16 at 21:00 Miscellaneous Information 1 ea NOTE XX ; Start 07/09/16 at 18:30 Glucose (Glutose) 15 gm Q15M PRN PO DECREASED GLUCOSE; Start 07/09/16 at 18:30 Glucose (Glutose) 22.5 gm Q15M PRN PO DECREASED GLUCOSE; Start 07/09/16 at 18: 30 Dextrose (D50w Syringe) 25 ml Q15M PRN IV DECREASED GLUCOSE; Start 07/09/16 at 18:30 Dextrose (D50w Syringe) 50 ml Q15M PRN IV DECREASED GLUCOSE; Start 07/09/16 at 18:30 Glucagon (Glucagen) 1 mg Q15M PRN IM DECREASED GLUCOSE; Start 07/09/16 at 18:30 Glucose (Glutose) 15 gm Q15M PRN BUCCAL DECREASED GLUCOSE; Start 07/09/16 at 18 :30 Aspirin (Halfprin) 81 mg DAILY PO Last administered on 07/19/16 08:14; Admin Dose 81 MG; Start 07/10/16 at 09:00 Atorvastatin Calcium (Lipitor) 80 mg QHS PO Last administered on 07/18/16 20:58 ; Admin Dose 80 MG; Start 07/10/16 at 21:00 Clonidine (Catapres) 0.1 mg Q6 PO Last administered on 07/19/16 05:58; Admin Dose 0.1 MG; Start 07/10/16 at 12:00 Isosorbide Mononitrate (Imdur) 60 mg DAILY PO Last administered on 07/18/16 09: 01; Admin Dose 60 MG; Start 07/10/16 at 10:00 Lactobacillus Acidoph/Bulgaricus (Floranex) 1 tab TID PO Last administered on 08:14; Admin Dose 1 TAB; Start 07/10/16 at 09:00 Metoprolol Succinate (Toprol Xl) 50 mg BID PO Last administered on 07/18/16 21: 03; Admin Dose 50 MG; Start 07/10/16 at 10:00 Prasugrel (Effient) 10 mg DAILY PO Last administered on 07/19/16 08:14; Admin Dose 10 MG; Start 07/10/16 at 10:30 Acetaminophen (Tylenol Tab) 500 mg Q4H PRN PO PAIN AND OR ELEVATED TEMP; Start 07/10/16 at 09:00 Ondansetron HCl (Zofran Inj) 4 mg Q6H PRN IV NAUSEA AND/OR VOMITING Last administered on 07/11/16 12:04; Admin Dose 4 MG; Start 07/10/16 at 09:00 Vancomycin HCl (Vancomycin Oral Syringe) 125 mg Q6 PO Last administered on 05:52; Admin Dose 125 MG; Start 07/10/16 at 12:00 Cholestyramine Resin (Questran Light) 4 gm BID PO Last administered on 08:56; Admin Dose 4 GM; Start 07/11/16 at 09:00 Gabapentin (Neurontin) 600 mg TID PO Last administered on 07/19/16 08:14; Admin Dose 600 MG; Start 07/14/16 at 21:00 Pantoprazole (Protonix Tab) 40 mg DAILY@06 PO Last administered on 07/19/16 05: 56; Admin Dose 40 MG; Start 07/16/16 at 06:00 NIYAH REED MD Jul 19, 2016 11:54
[2016-07-19] MEDS: PATIROMER CALCIUM SORBITEX 8.4 GM PKT PO SCH (13:27)
[2016-07-19] MEDS: ATORVASTATIN 80 MG TAB PO SCH (21:07)
[2016-07-20] VITALS (10 sets, daily range): BP systolic 103–132; BP diastolic 52–74; PULSE 75–84; RESP 16–20
[2016-07-20] MEDS: DIPHENHYDRAMINE 50 MG INJ IV PRN ×4 (02:51→21:55)
[2016-07-20] MEDS: HYDROmorphONE 1 MG/ML SYG IV PRN ×7 (02:51→21:56)
[2016-07-20] MEDS: VANCOMYCIN HCL 250 MG/5ML POSYG PO SCH ×3 (05:36→18:00)
[2016-07-20] MEDS: PANTOPRAZOLE (EC) 40 MG TAB PO SCH (05:36)
--- NOTE | 2016-07-20 08:05 | CONS ---
Date/Time of Note Date/Time of Note DATE: 07/20/16 TIME: 08:03 Assessment/Plan Assessment/Plan Problems: (1) Peripheral vascular disease Comment: for planned angio w PCI for tomorrow (2) End stage renal failure on dialysis Status: Chronic Comment: tolerated HD yesterday w UF of 3 kg (3) HTN (hypertension) Status: Chronic Comment: controlled Consultation Date/Type/Reason Admit Date/Time Jul 11, 2016 at 12:19 Type of Consultation: neph 24 HR Interval Summary Free Text/Dictation no new issues Exam/Review of Systems Vital Signs Vitals Vital Signs Date Time Temp Pulse Resp B/P Pulse Ox O2 Delivery O2 Flow Rate FiO2 07/20/16 05:35 84 132/74 07/19/16 20:13 98.4 16 98 07/18/16 21:03 Room Air Intake and Output 07/19/16 07/19/16 07/20/16 15:00 23:00 07:00 Intake Total 500 ml 1180 ml 1090 ml Output Total 3500 ml 600 ml 300 ml Balance -3000 ml 580 ml 790 ml Exam Constitutional: alert Psych: no complaints Respiratory: clear to auscultation Cardiovascular: regular rate and rhythm Extremities: edema (no edema) Results Result Diagram: 07/19/16 0549 07/19/16 0549 Results 24 hrs Laboratory Tests Test 07/19/16 10:49 07/19/16 12:27 07/19/16 15:47 07/19/16 17:30 Bedside Glucose 156 168 146 124 Test 07/19/16 20:56 07/19/16 21:15 07/19/16 21:29 07/19/16 23:23 Bedside Glucose 48 *L 166 161 134 Medications Medications Current Medications Hydromorphone HCl (Dilaudid) 1 mg Q3 PRN IV PAIN Last administered on 07/20/16 05:47; Admin Dose 1 MG; Start 07/09/16 at 17:00 Diphenhydramine HCl (Benadryl) 50 mg Q6H PRN IV ITCHING Last administered on 02:51; Admin Dose 50 MG; Start 07/09/16 at 17:00 Non-Formulary Medication (Non-Formulary Insulin) INSULIN PUMP see la... [id number] SC Last administered on 07/18/16 14:17; Admin Dose 5 UNIT; Start 07/09/16 at 19 :45 Non-Formulary Medication (Non-Formulary Insulin) INSULIN PUMP see la... HS SC Last administered on 07/11/16 21:00; Admin Dose 2 UNIT; Start 07/09/16 at 21:00 Miscellaneous Information 1 ea NOTE XX ; Start 07/09/16 at 18:30 Glucose (Glutose) 15 gm Q15M PRN PO DECREASED GLUCOSE; Start 07/09/16 at 18:30 Glucose (Glutose) 22.5 gm Q15M PRN PO DECREASED GLUCOSE; Start 07/09/16 at 18: 30 Dextrose (D50w Syringe) 25 ml Q15M PRN IV DECREASED GLUCOSE; Start 07/09/16 at 18:30 Dextrose (D50w Syringe) 50 ml Q15M PRN IV DECREASED GLUCOSE Last administered on 07/19/16 20:58; Admin Dose 50 ML; Start 07/09/16 at 18:30 Glucagon (Glucagen) 1 mg Q15M PRN IM DECREASED GLUCOSE; Start 07/09/16 at 18:30 Glucose (Glutose) 15 gm Q15M PRN BUCCAL DECREASED GLUCOSE; Start 07/09/16 at 18 :30 Aspirin (Halfprin) 81 mg DAILY PO Last administered on 07/19/16 08:14; Admin Dose 81 MG; Start 07/10/16 at 09:00 Atorvastatin Calcium (Lipitor) 80 mg QHS PO Last administered on 07/19/16 21:07 ; Admin Dose 80 MG; Start 07/10/16 at 21:00 Clonidine (Catapres) 0.1 mg Q6 PO Last administered on 07/20/16 05:36; Admin Dose 0.1 MG; Start 07/10/16 at 12:00 Isosorbide Mononitrate (Imdur) 60 mg DAILY PO Last administered on 07/18/16 09: 01; Admin Dose 60 MG; Start 07/10/16 at 10:00 Lactobacillus Acidoph/Bulgaricus (Floranex) 1 tab TID PO Last administered on 21:07; Admin Dose 1 TAB; Start 07/10/16 at 09:00 Metoprolol Succinate (Toprol Xl) 50 mg BID PO Last administered on 07/19/16 21: 07; Admin Dose 50 MG; Start 07/10/16 at 10:00 Prasugrel (Effient) 10 mg DAILY PO Last administered on 07/19/16 08:14; Admin Dose 10 MG; Start 07/10/16 at 10:30 Acetaminophen (Tylenol Tab) 500 mg Q4H PRN PO PAIN AND OR ELEVATED TEMP; Start 07/10/16 at 09:00 Ondansetron HCl (Zofran Inj) 4 mg Q6H PRN IV NAUSEA AND/OR VOMITING Last administered on 07/11/16 12:04; Admin Dose 4 MG; Start 07/10/16 at 09:00 Vancomycin HCl (Vancomycin Oral Syringe) 125 mg Q6 PO Last administered on 05:36; Admin Dose 125 MG; Start 07/10/16 at 12:00 Cholestyramine Resin (Questran Light) 4 gm BID PO Last administered on 08:56; Admin Dose 4 GM; Start 07/11/16 at 09:00 Gabapentin (Neurontin) 600 mg TID PO Last administered on 07/19/16 21:07; Admin Dose 600 MG; Start 07/14/16 at 21:00 Pantoprazole (Protonix Tab) 40 mg DAILY@06 PO Last administered on 07/20/16 05: 36; Admin Dose 40 MG; Start 07/16/16 at 06:00 BING DOMINGUEZ MD Jul 20, 2016 08:05
[2016-07-20] MEDS: SEVELAMER 800 MG TAB PO SCH ×3 (08:53→18:28)
[2016-07-20] MEDS: PRASUGREL HYDROCHLORIDE 10 MG TABLET PO SCH (08:54)
[2016-07-20] MEDS: CALCIUM ACETATE 667 MG CAP PO SCH ×3 (08:54→18:28)
[2016-07-20] MEDS: LACTOBACILLUS CHEW TAB PO SCH ×3 (08:54→20:29)
[2016-07-20] MEDS: GABAPENTIN 300 MG CAP PO SCH ×3 (08:55→20:29)
[2016-07-20] MEDS: ASPIRIN (EC) 81 MG TAB PO SCH (08:55)
[2016-07-20] MEDS: METOPROLOL (XL) 50 MG TAB PO SCH ×2 (08:57→20:29)
[2016-07-20] MEDS: ISOSORBIDE MONONITRATE(SR)60 MG TAB PO SCH (08:57)
[2016-07-20] MEDS: CHOLESTYRAMINE (LIGHT) 4 GM PACKET PO SCH ×2 (09:00→20:30)
--- NOTE | 2016-07-20 11:14 | PN ---
Date/Time of Note Date/Time of Note DATE: 07/20/16 TIME: 11:13 Assessment/Plan VTE Prophylaxis VTE Prophylaxis Intervention: other Lines/Catheters IV C[facility]ter Type [facility]from [facility]): PORTACATH Assessment/Plan Chief Complaint/Hosp Course 1. Diarrhea with recent history of Clostridium difficile colitis. Continue patient on vancomycin and Questran. Dr. Gomez is following in gastroenterology consultation 2. Dehydration secondary to diarrhea with recent history of Clostridium difficile colitis. Stool for C. difficile is negative. 3. Type 1 diabetes mellitus with diabetic nephropathy. Continue NovoLog per insulin pump. 4. End-stage renal disease, hemodialysis dependent. Dr. Hubbard is following the patient in nephrology consultation. We will continue dialysis per schedule. 5. Coronary artery disease. Continue Imdur and metoprolol. 6. Hypertension. 7. Bilateral lower extremities pain. Dr. Orosco is following and rheumatology consultation. 8. Lateral lower extremities atherosclerosis. is following in vascular surgery consultation. Plan for the left lower extremity angio with possible intervention on Thursday. Problems: Subjective 24 Hr Interval Summary Free Text/Dictation Patient has no complaints Exam/Review of Systems Vital Signs Vitals Vital Signs Date Time Temp Pulse Resp B/P Pulse Ox O2 Delivery O2 Flow Rate FiO2 07/20/16 08:13 97.6 75 20 118/ 98 07/18/16 21:03 Room Air Intake and Output 07/19/16 07/19/16 07/20/16 15:00 23:00 07:00 Intake Total 500 ml 1180 ml 1090 ml Output Total 3500 ml 600 ml 300 ml Balance -3000 ml 580 ml 790 ml Exam Constitutional: well developed Head: atraumatic, normocephalic Neck: supple Respiratory: clear to auscultation Cardiovascular: regular rate and rhythm Gastrointestinal: non-tender, soft Results Result Diagram: 07/19/16 0549 07/19/16 0549 Results 24 hrs Laboratory Tests Test 07/19/16 12:27 07/19/16 15:47 07/19/16 17:30 07/19/16 20:56 Bedside Glucose 168 146 124 48 *L Test 07/19/16 21:15 07/19/16 21:29 07/19/16 23:23 07/20/16 08:21 Bedside Glucose 166 161 134 261 H Test 07/20/16 10:59 Bedside Glucose 273 H Medications Medications Current Medications Hydromorphone HCl (Dilaudid) 1 mg Q3 PRN IV PAIN Last administered on 07/20/16 08:52; Admin Dose 1 MG; Start 07/09/16 at 17:00 Diphenhydramine HCl (Benadryl) 50 mg Q6H PRN IV ITCHING Last administered on 08:52; Admin Dose 50 MG; Start 07/09/16 at 17:00 Non-Formulary Medication (Non-Formulary Insulin) INSULIN PUMP see la... [id number] SC Last administered on 07/18/16 14:17; Admin Dose 5 UNIT; Start 07/09/16 at 19 :45 Non-Formulary Medication (Non-Formulary Insulin) INSULIN PUMP see la... HS SC Last administered on 07/11/16 21:00; Admin Dose 2 UNIT; Start 07/09/16 at 21:00 Miscellaneous Information 1 ea NOTE XX ; Start 07/09/16 at 18:30 Glucose (Glutose) 15 gm Q15M PRN PO DECREASED GLUCOSE; Start 07/09/16 at 18:30 Glucose (Glutose) 22.5 gm Q15M PRN PO DECREASED GLUCOSE; Start 07/09/16 at 18: 30 Dextrose (D50w Syringe) 25 ml Q15M PRN IV DECREASED GLUCOSE; Start 07/09/16 at 18:30 Dextrose (D50w Syringe) 50 ml Q15M PRN IV DECREASED GLUCOSE Last administered on 07/19/16 20:58; Admin Dose 50 ML; Start 07/09/16 at 18:30 Glucagon (Glucagen) 1 mg Q15M PRN IM DECREASED GLUCOSE; Start 07/09/16 at 18:30 Glucose (Glutose) 15 gm Q15M PRN BUCCAL DECREASED GLUCOSE; Start 07/09/16 at 18 :30 Aspirin (Halfprin) 81 mg DAILY PO Last administered on 07/20/16 08:55; Admin Dose 81 MG; Start 07/10/16 at 09:00 Atorvastatin Calcium (Lipitor) 80 mg QHS PO Last administered on 07/19/16 21:07 ; Admin Dose 80 MG; Start 07/10/16 at 21:00 Clonidine (Catapres) 0.1 mg Q6 PO Last administered on 07/20/16 05:36; Admin Dose 0.1 MG; Start 07/10/16 at 12:00 Isosorbide Mononitrate (Imdur) 60 mg DAILY PO Last administered on 07/20/16 08: 57; Admin Dose 60 MG; Start 07/10/16 at 10:00 Lactobacillus Acidoph/Bulgaricus (Floranex) 1 tab TID PO Last administered on 08:54; Admin Dose 1 TAB; Start 07/10/16 at 09:00 Metoprolol Succinate (Toprol Xl) 50 mg BID PO Last administered on 07/20/16 08: 57; Admin Dose 50 MG; Start 07/10/16 at 10:00 Prasugrel (Effient) 10 mg DAILY PO Last administered on 07/20/16 08:54; Admin Dose 10 MG; Start 07/10/16 at 10:30 Acetaminophen (Tylenol Tab) 500 mg Q4H PRN PO PAIN AND OR ELEVATED TEMP; Start 07/10/16 at 09:00 Ondansetron HCl (Zofran Inj) 4 mg Q6H PRN IV NAUSEA AND/OR VOMITING Last administered on 07/11/16 12:04; Admin Dose 4 MG; Start 07/10/16 at 09:00 Vancomycin HCl (Vancomycin Oral Syringe) 125 mg Q6 PO Last administered on 05:36; Admin Dose 125 MG; Start 07/10/16 at 12:00 Cholestyramine Resin (Questran Light) 4 gm BID PO Last administered on 08:56; Admin Dose 4 GM; Start 07/11/16 at 09:00 Gabapentin (Neurontin) 600 mg TID PO Last administered on 07/20/16 08:55; Admin Dose 600 MG; Start 07/14/16 at 21:00 Pantoprazole (Protonix Tab) 40 mg DAILY@06 PO Last administered on 07/20/16 05: 36; Admin Dose 40 MG; Start 07/16/16 at 06:00 SHANTE SALDAÑA Jul 20, 2016 11:14
[2016-07-20 11:21] LABS: POTASSIUM 5.7 mmol/L (3.5-5.1)
[2016-07-20 11:24] LABS: CALCIUM 7.8 mg/dl (8.4-10.2); CREATININE 7.28 mg/dl (0.61-1.24)
[2016-07-20] MEDS: PATIROMER CALCIUM SORBITEX 8.4 GM PKT PO SCH (12:19)
[2016-07-20] MEDS: DIPHENHYDRAMINE 50 MG INJ IV SCH (13:54)
[2016-07-20] MEDS: LORAZEPAM 2 MG INJ IV SCH (13:54)
--- NOTE | 2016-07-20 17:16 | CONS ---
Date/Time of Note Date/Time of Note DATE: 07/20/16 TIME: 17:15 Assessment/Plan Assessment/Plan Additional Assessment/Plan IMPRESSION: 1. Diarrhea. 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 Improved after Questran restarted. C. Diff negative.better 2. Diabetes mellitus. 3. Renal failure. 4. Coronary artery disease. 5. Hypertension. 6.pain lower extremity PLAN: 1. Continue Questran 2. if diarrhea do not improve, can titrate up Questran 3. can also consider colonoscopy to r/o microscopic colitis if diarrhea do not improve. 4.vascular study on Thursday Consultation Date/Type/Reason Admit Date/Time Jul 11, 2016 at 12:19 Type of Consultation: neph 24 HR Interval Summary Free Text/Dictation no diarrhea Constitutional: improved Exam/Review of Systems Vital Signs Vitals Vital Signs Date Time Temp Pulse Resp B/P Pulse Ox O2 Delivery O2 Flow Rate FiO2 07/20/16 16:20 83 07/20/16 13:20 15 07/20/16 08:13 97.6 118/ 98 07/18/16 21:03 Room Air Intake and Output 07/19/16 07/19/16 07/20/16 14:59 22:59 06:59 Intake Total 500 ml 1180 ml 1090 ml Output Total 3500 ml 600 ml 300 ml Balance -3000 ml 580 ml 790 ml Exam Constitutional: alert, oriented, well developed Psych: nl mood/affect, no complaints Head: atraumatic, normocephalic Eyes: EOMI, PERRL, nl conjunctiva, nl lids, nl sclera ENMT: nl external ears & nose, nl lips & teeth, nl nasal mucosa & septum Neck: non-tender, supple Respiratory: clear to auscultation, normal air movement Cardiovascular: nl pulses, regular rate and rhythm Gastrointestinal: nl liver, spleen, non-tender, soft Musculoskeletal: nl extremities to inspection, nl gait and stance Extremities: normal pulses 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: PRACTICING DERMATOLOGIST II-XII intact, nl mental status, nl speech, nl strength Skin: nl turgor, No rash or lesions Lymph: nl lymph nodes Results Result Diagram: 07/19/16 0549 07/20/16 1050 Results 24 hrs Laboratory Tests Test 07/19/16 17:30 07/19/16 20:56 07/19/16 21:15 07/19/16 21:29 Bedside Glucose 124 48 *L 166 161 Test 07/19/16 23:23 07/20/16 08:21 07/20/16 10:50 07/20/16 10:59 Bedside Glucose 134 261 H 273 H Anion Gap 24 H Blood Urea Nitrogen 79 H Calcium Level 7.8 L Carbon Dioxide Level 21 Chloride Level 95 L Creatinine 7.28 H Glucose Level 266 #H Potassium Level 5.7 H Sodium Level 134 L Test 07/20/16 12:09 07/20/16 13:57 Bedside Glucose 195 138 Medications Medications Current Medications Hydromorphone HCl (Dilaudid) 1 mg Q3 PRN IV PAIN Last administered on 07/20/16 16:07; Admin Dose 1 MG; Start 07/09/16 at 17:00 Diphenhydramine HCl (Benadryl) 50 mg Q6H PRN IV ITCHING Last administered on 16:07; Admin Dose 50 MG; Start 07/09/16 at 17:00 Non-Formulary Medication (Non-Formulary Insulin) INSULIN PUMP see la... [id number] SC Last administered on 07/18/16 14:17; Admin Dose 5 UNIT; Start 07/09/16 at 19 :45 Non-Formulary Medication (Non-Formulary Insulin) INSULIN PUMP see la... HS SC Last administered on 07/11/16 21:00; Admin Dose 2 UNIT; Start 07/09/16 at 21:00 Miscellaneous Information 1 ea NOTE XX ; Start 07/09/16 at 18:30 Glucose (Glutose) 15 gm Q15M PRN PO DECREASED GLUCOSE; Start 07/09/16 at 18:30 Glucose (Glutose) 22.5 gm Q15M PRN PO DECREASED GLUCOSE; Start 07/09/16 at 18: 30 Dextrose (D50w Syringe) 25 ml Q15M PRN IV DECREASED GLUCOSE; Start 07/09/16 at 18:30 Dextrose (D50w Syringe) 50 ml Q15M PRN IV DECREASED GLUCOSE Last administered on 07/19/16 20:58; Admin Dose 50 ML; Start 07/09/16 at 18:30 Glucagon (Glucagen) 1 mg Q15M PRN IM DECREASED GLUCOSE; Start 07/09/16 at 18:30 Glucose (Glutose) 15 gm Q15M PRN BUCCAL DECREASED GLUCOSE; Start 07/09/16 at 18 :30 Aspirin (Halfprin) 81 mg DAILY PO Last administered on 07/20/16 08:55; Admin Dose 81 MG; Start 07/10/16 at 09:00 Atorvastatin Calcium (Lipitor) 80 mg QHS PO Last administered on 07/19/16 21:07 ; Admin Dose 80 MG; Start 07/10/16 at 21:00 Clonidine (Catapres) 0.1 mg Q6 PO Last administered on 07/20/16 05:36; Admin Dose 0.1 MG; Start 07/10/16 at 12:00 Isosorbide Mononitrate (Imdur) 60 mg DAILY PO Last administered on 07/20/16 08: 57; Admin Dose 60 MG; Start 07/10/16 at 10:00 Lactobacillus Acidoph/Bulgaricus (Floranex) 1 tab TID PO Last administered on 12:20; Admin Dose 1 TAB; Start 07/10/16 at 09:00 Metoprolol Succinate (Toprol Xl) 50 mg BID PO Last administered on 07/20/16 08: 57; Admin Dose 50 MG; Start 07/10/16 at 10:00 Prasugrel (Effient) 10 mg DAILY PO Last administered on 07/20/16 08:54; Admin Dose 10 MG; Start 07/10/16 at 10:30 Acetaminophen (Tylenol Tab) 500 mg Q4H PRN PO PAIN AND OR ELEVATED TEMP; Start 07/10/16 at 09:00 Ondansetron HCl (Zofran Inj) 4 mg Q6H PRN IV NAUSEA AND/OR VOMITING Last administered on 07/11/16 12:04; Admin Dose 4 MG; Start 07/10/16 at 09:00 Vancomycin HCl (Vancomycin Oral Syringe) 125 mg Q6 PO Last administered on 12:21; Admin Dose 125 MG; Start 07/10/16 at 12:00 Cholestyramine Resin (Questran Light) 4 gm BID PO Last administered on 08:56; Admin Dose 4 GM; Start 07/11/16 at 09:00 Gabapentin (Neurontin) 600 mg TID PO Last administered on 07/20/16 12:20; Admin Dose 600 MG; Start 07/14/16 at 21:00 Pantoprazole (Protonix Tab) 40 mg DAILY@06 PO Last administered on 07/20/16 05: 36; Admin Dose 40 MG; Start 07/16/16 at 06:00 NIYAH REED MD Jul 20, 2016 17:16
[2016-07-20] MEDS: ATORVASTATIN 80 MG TAB PO SCH (20:30)
[2016-07-20] MEDS: DEXTROSE 50% 50 ML SYRINGE IV PRN (20:36)
[2016-07-21] VITALS (9 sets, daily range): BP systolic 129–164; BP diastolic 73–89; PULSE 64–66; RESP 17–19
[2016-07-21] MEDS: VANCOMYCIN HCL 250 MG/5ML POSYG PO SCH ×5 (00:42→23:08)
[2016-07-21] MEDS: HYDROmorphONE 1 MG/ML SYG IV PRN ×8 (00:43→21:28)
[2016-07-21] MEDS: PANTOPRAZOLE (EC) 40 MG TAB PO SCH (06:00)
[2016-07-21 06:17] LABS: BASOPHILS % 0.7 % (0.0-2.0); EOSINOPHILS # 0.4 10^3/ul (0.0-0.5); EOSINOPHILS % 7.4 % (0.0-7.0); HEMATOCRIT 30.4 % (42.0-52.0); HEMOGLOBIN 10.2 g/dl (14.0-18.0); LYMPHOCYTES # 1.1 10^3/ul (0.8-2.9); LYMPHOCYTES % 18.8 % (15.0-51.0); MEAN CORPUSCULAR HEMOGLOBIN 30.7 pg (29.0-33.0); MEAN CORPUSCULAR HGB CONC 33.5 g/dl (32.0-37.0); MEAN CORPUSCULAR VOLUME 91.7 fl (82.0-101.0); MEAN PLATELET VOLUME 9.6 fl (7.4-10.4); MONOCYTE # 0.7 10^3/ul (0.3-0.9); MONOCYTES % 12.5 % (0.0-11.0); NEUTROPHIL # 3.6 10^3/ul (1.6-7.5); NEUTROPHILS % 60.6 % (39.0-77.0); PLATELET COUNT 185 10^3/UL (140-440); RED BLOOD COUNT 3.31 10^6/ul (4.70-6.10); RED CELL DISTRIBUTION WIDTH 16.1 % (11.5-14.5); UNCORRECTED WBC 5.9 10^3/ul (4.8-10.8); WHITE BLOOD COUNT 5.9 10^3/ul (4.8-10.8)
[2016-07-21 06:25] LABS: CONDITION 1; LH ANALYZER COMMENTS 1
[2016-07-21 06:32] LABS: POTASSIUM 5.1 mmol/L (3.5-5.1)
[2016-07-21 06:35] LABS: CALCIUM 7.5 mg/dl (8.4-10.2)
[2016-07-21] MEDS: DIPHENHYDRAMINE 50 MG INJ IV PRN ×3 (06:47→21:27)
[2016-07-21] MEDS: CALCIUM ACETATE 667 MG CAP PO SCH ×3 (08:15→18:00)
[2016-07-21] MEDS: SEVELAMER 800 MG TAB PO SCH ×3 (08:15→18:00)
--- NOTE | 2016-07-21 08:28 | CONS ---
Date/Time of Note Date/Time of Note DATE: 07/21/16 TIME: 08:26 Assessment/Plan Assessment/Plan Chief Complaint/Hosp Course #1 end-stage renal disease, on maintenance hemodialysis Thursday.He had dialysis yesterday .Will order dialysis for tomorrow . #2 bilateral foot pain.He has a high grade stenosis in the L superfiscial femoral artery and other diffuse ASCVD , vascular W/U is in progress . He was scheduled for an angiogram and angioplasty yesterday ; however it was canceled and rescheduled for today. #3 anemia. There is no history of blood loss.will order stool for OB #4 hyperkalemia . I have spoken to pharmacy to order Veltassa for hyperkalemia . He started the Veltassa yesterday . His potassium today is 5.1 which means the Veltassa is working .. Problems: Consultation Date/Type/Reason Admit Date/Time Jul 11, 2016 at 12:19 Type of Consultation: neph 24 HR Interval Summary Constitutional: no complaints Exam/Review of Systems Vital Signs Vitals Vital Signs Date Time Temp Pulse Resp B/P Pulse Ox O2 Delivery O2 Flow Rate FiO2 07/21/16 07:38 98.3 76 19 134/73 95 07/20/16 20:54 Room Air Intake and Output 07/20/16 07/20/16 07/21/16 15:00 23:00 07:00 Intake Total 1320 ml 780 ml Output Total 1500 ml 650 ml Balance -180 ml 130 ml Exam Constitutional: alert, oriented, well developed Psych: nl mood/affect, no complaints Respiratory: clear to auscultation, normal air movement Cardiovascular: regular rate and rhythm Musculoskeletal: nl extremities to inspection Results Result Diagram: 07/21/16 0515 07/21/16 0515 Results 24 hrs Laboratory Tests Test 07/20/16 10:50 07/20/16 10:59 07/20/16 12:09 07/20/16 13:57 Anion Gap 24 H Blood Urea Nitrogen 79 H Calcium Level 7.8 L Carbon Dioxide Level 21 Chloride Level 95 L Creatinine 7.28 H Glucose Level 266 #H Potassium Level 5.7 H Sodium Level 134 L Bedside Glucose 273 H 195 138 Test 07/20/16 17:37 07/20/16 20:33 07/20/16 20:57 07/20/16 22:00 Bedside Glucose 118 56 L 164 Stool Occult Blood NEGATIVE Test 07/21/16 05:15 07/21/16 08:01 Anion Gap 18 H Basophils # 0.0 Basophils % 0.7 Blood Morphology Comment Blood Urea Nitrogen 49 #H Calcium Level 7.5 L Carbon Dioxide Level 31 # Chloride Level 93 L Creatinine 5.00 #H Eosinophils # 0.4 Eosinophils % 7.4 H Glucose Level 104 # Hematocrit 30.4 L Hemoglobin 10.2 L Lymphocytes # 1.1 Lymphocytes % 18.8 Magnesium Level 1.7 Mean Corpuscular Hemoglobin 30.7 Mean Corpuscular Hemoglobin Concent 33.5 Mean Corpuscular Volume 91.7 Mean Platelet Volume 9.6 Monocytes # 0.7 Monocytes % 12.5 H Neutrophils # 3.6 Neutrophils % 60.6 Nucleated Red Blood Cells # 0.0 Nucleated Red Blood Cells % 0.0 Platelet Count 185 Potassium Level 5.1 Red Blood Count 3.31 L Red Cell Distribution Width 16.1 H Sodium Level 137 White Blood Count 5.9 Bedside Glucose 156 Medications Medications Current Medications Hydromorphone HCl (Dilaudid) 1 mg Q3 PRN IV PAIN Last administered on 07/21/16 06:48; Admin Dose 1 MG; Start 07/09/16 at 17:00 Diphenhydramine HCl (Benadryl) 50 mg Q6H PRN IV ITCHING Last administered on 06:47; Admin Dose 50 MG; Start 07/09/16 at 17:00 Non-Formulary Medication (Non-Formulary Insulin) INSULIN PUMP see la... [id number] Last administered on 07/18/16 14:17; Admin Dose 5 UNIT; Start 07/09/16 at 19 :45 Non-Formulary Medication (Non-Formulary Insulin) INSULIN PUMP see la... HS SC Last administered on 07/11/16 21:00; Admin Dose 2 UNIT; Start 07/09/16 at 21:00 Miscellaneous Information 1 ea NOTE XX ; Start 07/09/16 at 18:30 Glucose (Glutose) 15 gm Q15M PRN PO DECREASED GLUCOSE; Start 07/09/16 at 18:30 Glucose (Glutose) 22.5 gm Q15M PRN PO DECREASED GLUCOSE; Start 07/09/16 at 18: 30 Dextrose (D50w Syringe) 25 ml Q15M PRN IV DECREASED GLUCOSE Last administered on 07/20/16 20:36; Admin Dose 25 ML; Start 07/09/16 at 18:30 Dextrose (D50w Syringe) 50 ml Q15M PRN IV DECREASED GLUCOSE Last administered on 07/19/16 20:58; Admin Dose 50 ML; Start 07/09/16 at 18:30 Glucagon (Glucagen) 1 mg Q15M PRN IM DECREASED GLUCOSE; Start 07/09/16 at 18:30 Glucose (Glutose) 15 gm Q15M PRN BUCCAL DECREASED GLUCOSE; Start 07/09/16 at 18 :30 Aspirin (Halfprin) 81 mg DAILY PO Last administered on 07/20/16 08:55; Admin Dose 81 MG; Start 07/10/16 at 09:00 Atorvastatin Calcium (Lipitor) 80 mg QHS PO Last administered on 07/20/16 20:30 ; Admin Dose 80 MG; Start 07/10/16 at 21:00 Clonidine (Catapres) 0.1 mg Q6 PO Last administered on 07/21/16 06:54; Admin Dose 0.1 MG; Start 07/10/16 at 12:00 Isosorbide Mononitrate (Imdur) 60 mg DAILY PO Last administered on 07/20/16 08: 57; Admin Dose 60 MG; Start 07/10/16 at 10:00 Lactobacillus Acidoph/Bulgaricus (Floranex) 1 tab TID PO Last administered on 20:29; Admin Dose 1 TAB; Start 07/10/16 at 09:00 Metoprolol Succinate (Toprol Xl) 50 mg BID PO Last administered on 07/20/16 20: 29; Admin Dose 50 MG; Start 07/10/16 at 10:00 Prasugrel (Effient) 10 mg DAILY PO Last administered on 07/20/16 08:54; Admin Dose 10 MG; Start 07/10/16 at 10:30 Acetaminophen (Tylenol Tab) 500 mg Q4H PRN PO PAIN AND OR ELEVATED TEMP; Start 07/10/16 at 09:00 Ondansetron HCl (Zofran Inj) 4 mg Q6H PRN IV NAUSEA AND/OR VOMITING Last administered on 07/11/16 12:04; Admin Dose 4 MG; Start 07/10/16 at 09:00 Vancomycin HCl (Vancomycin Oral Syringe) 125 mg Q6 PO Last administered on 00:42; Admin Dose 125 MG; Start 07/10/16 at 12:00 Cholestyramine Resin (Questran Light) 4 gm BID PO Last administered on 08:56; Admin Dose 4 GM; Start 07/11/16 at 09:00 Gabapentin (Neurontin) 600 mg TID PO Last administered on 07/20/16 20:29; Admin Dose 600 MG; Start 07/14/16 at 21:00 Pantoprazole (Protonix Tab) 40 mg DAILY@06 PO Last administered on 07/20/16 05: 36; Admin Dose 40 MG; Start 07/16/16 at 06:00 DONY HOWARD MD Jul 21, 2016 08:28
[2016-07-21] MEDS: METOPROLOL (XL) 50 MG TAB PO SCH ×2 (09:00→21:28)
[2016-07-21] MEDS: ISOSORBIDE MONONITRATE(SR)60 MG TAB PO SCH (09:00)
[2016-07-21] MEDS: LACTOBACILLUS CHEW TAB PO SCH ×3 (09:00→21:26)
[2016-07-21] MEDS: GABAPENTIN 300 MG CAP PO SCH ×3 (09:00→21:26)
[2016-07-21] MEDS: ASPIRIN (EC) 81 MG TAB PO SCH (09:00)
[2016-07-21] MEDS: CHOLESTYRAMINE (LIGHT) 4 GM PACKET PO SCH ×2 (09:00→21:00)
[2016-07-21] MEDS: PRASUGREL HYDROCHLORIDE 10 MG TABLET PO SCH (09:00)
--- NOTE | 2016-07-21 16:08 | PN ---
Date/Time of Note Date/Time of Note DATE: 07/21/16 TIME: 16:07 Assessment/Plan VTE Prophylaxis VTE Prophylaxis Intervention: SCD's Lines/Catheters IV [facility] brian cath Assessment/Plan Chief Complaint/Hosp Course ASSESSMENT AND PLAN: 1. Diarrhea with recent history of Clostridium difficile colitis. Continue patient on vancomycin and Questran. Dr. Gomez is following in gastroenterology consultation 2. Dehydration secondary to diarrhea with recent history of Clostridium difficile colitis. Stool for C. difficile is negative. 3. Type 1 diabetes mellitus with diabetic nephropathy. Continue NovoLog per insulin pump. 4. End-stage renal disease, hemodialysis dependent. Dr. Hubbard is following the patient in nephrology consultation. We will continue dialysis per schedule. 5. Coronary artery disease. Continue Imdur and metoprolol. 6. Hypertension. 7. Bilateral lower extremities pain. Dr. Orosco is following and rheumatology consultation. 8. Lateral lower extremities atherosclerosis. is following in vascular surgery consultation. Plan for the left lower extremity angio with possible intervention today. Continue heparin for deep venous thrombosis prophylaxis and Pepcid for peptic ulcer disease prophylaxis. Further recommendations based on clinical course. Plan of care discussed with Dr. Rosales. Problems: Subjective 24 Hr Interval Summary Free Text/Dictation Patient is currently n.p.o. for procedure, no nausea vomiting diarrhea reported per nurse. Exam/Review of Systems Vital Signs Vitals Vital Signs Date Time Temp Pulse Resp B/P Pulse Ox O2 Delivery O2 Flow Rate FiO2 07/21/16 15:14 134/79 07/21/16 07:38 98.3 76 19 95 07/20/16 20:54 Room Air Intake and Output 07/20/16 07/20/16 07/21/16 15:00 23:00 07:00 Intake Total 1320 ml 780 ml Output Total 1500 ml 650 ml Balance -180 ml 130 ml Exam GENERAL: Well-developed, well-nourished male, currently appears pale, awake, alert. HEENT: The patient has right eye prosthesis. Left pupil is equal, round, reactive to light and accommodation. NECK: Supple. No cervical lymphadenopathy, no thyromegaly. CHEST: Lungs clear bilaterally. There are no rhonchi, wheezes, rales noted. CARDIOVASCULAR: Normal S1, S2. No murmurs, gallops, clicks, rubs noted. ABDOMEN: Flat, soft, nondistended. The patient has generalized tenderness to epigastric tenderness on palpation. No guarding. EXTREMITIES: No edema, clubbing, cyanosis. Left upper extremity AV graft with a palpable thrill and audible bruit. SKIN: No rash, petechiae noted. NEUROLOGIC: The patient is awake, alert, and oriented x3. Results Result Diagram: 07/21/16 0515 07/21/16 0515 Results 24 hrs Laboratory Tests Test 07/20/16 17:37 07/20/16 20:33 07/20/16 20:57 07/20/16 22:00 Bedside Glucose 118 56 L 164 Stool Occult Blood NEGATIVE Test 07/21/16 05:15 07/21/16 08:01 07/21/16 12:18 Anion Gap 18 H Basophils # 0.0 Basophils % 0.7 Blood Morphology Comment Blood Urea Nitrogen 49 #H Calcium Level 7.5 L Carbon Dioxide Level 31 # Chloride Level 93 L Creatinine 5.00 #H Eosinophils # 0.4 Eosinophils % 7.4 H Glucose Level 104 # Hematocrit 30.4 L Hemoglobin 10.2 L Lymphocytes # 1.1 Lymphocytes % 18.8 Magnesium Level 1.7 Mean Corpuscular Hemoglobin 30.7 Mean Corpuscular Hemoglobin Concent 33.5 Mean Corpuscular Volume 91.7 Mean Platelet Volume 9.6 Monocytes # 0.7 Monocytes % 12.5 H Neutrophils # 3.6 Neutrophils % 60.6 Nucleated Red Blood Cells # 0.0 Nucleated Red Blood Cells % 0.0 Platelet Count 185 Potassium Level 5.1 Red Blood Count 3.31 L Red Cell Distribution Width 16.1 H Sodium Level 137 White Blood Count 5.9 Bedside Glucose 156 168 Medications Medications Current Medications Hydromorphone HCl (Dilaudid) 1 mg Q3 PRN IV PAIN Last administered on 07/21/16 15:34; Admin Dose 1 MG; Start 07/09/16 at 17:00 Diphenhydramine HCl (Benadryl) 50 mg Q6H PRN IV ITCHING Last administered on 12:47; Admin Dose 50 MG; Start 07/09/16 at 17:00 Non-Formulary Medication (Non-Formulary Insulin) INSULIN PUMP see la... [id number] SC Last administered on 07/18/16 14:17; Admin Dose 5 UNIT; Start 07/09/16 at 19 :45 Non-Formulary Medication (Non-Formulary Insulin) INSULIN PUMP see la... HS SC Last administered on 07/11/16 21:00; Admin Dose 2 UNIT; Start 07/09/16 at 21:00 Miscellaneous Information 1 ea NOTE XX ; Start 07/09/16 at 18:30 Glucose (Glutose) 15 gm Q15M PRN PO DECREASED GLUCOSE; Start 07/09/16 at 18:30 Glucose (Glutose) 22.5 gm Q15M PRN PO DECREASED GLUCOSE; Start 07/09/16 at 18: 30 Dextrose (D50w Syringe) 25 ml Q15M PRN IV DECREASED GLUCOSE Last administered on 07/20/16 20:36; Admin Dose 25 ML; Start 07/09/16 at 18:30 Dextrose (D50w Syringe) 50 ml Q15M PRN IV DECREASED GLUCOSE Last administered on 07/19/16 20:58; Admin Dose 50 ML; Start 07/09/16 at 18:30 Glucagon (Glucagen) 1 mg Q15M PRN IM DECREASED GLUCOSE; Start 07/09/16 at 18:30 Glucose (Glutose) 15 gm Q15M PRN BUCCAL DECREASED GLUCOSE; Start 07/09/16 at 18 :30 Aspirin (Halfprin) 81 mg DAILY PO Last administered on 07/20/16 08:55; Admin Dose 81 MG; Start 07/10/16 at 09:00 Atorvastatin Calcium (Lipitor) 80 mg QHS PO Last administered on 07/20/16 20:30 ; Admin Dose 80 MG; Start 07/10/16 at 21:00 Clonidine (Catapres) 0.1 mg Q6 PO Last administered on 07/21/16 06:54; Admin Dose 0.1 MG; Start 07/10/16 at 12:00 Isosorbide Mononitrate (Imdur) 60 mg DAILY PO Last administered on 07/20/16 08: 57; Admin Dose 60 MG; Start 07/10/16 at 10:00 Lactobacillus Acidoph/Bulgaricus (Floranex) 1 tab TID PO Last administered on 20:29; Admin Dose 1 TAB; Start 07/10/16 at 09:00 Metoprolol Succinate (Toprol Xl) 50 mg BID PO Last administered on 07/20/16 20: 29; Admin Dose 50 MG; Start 07/10/16 at 10:00 Prasugrel (Effient) 10 mg DAILY PO Last administered on 07/20/16 08:54; Admin Dose 10 MG; Start 07/10/16 at 10:30 Acetaminophen (Tylenol Tab) 500 mg Q4H PRN PO PAIN AND OR ELEVATED TEMP; Start 07/10/16 at 09:00 Ondansetron HCl (Zofran Inj) 4 mg Q6H PRN IV NAUSEA AND/OR VOMITING Last administered on 07/11/16 12:04; Admin Dose 4 MG; Start 07/10/16 at 09:00 Vancomycin HCl (Vancomycin Oral Syringe) 125 mg Q6 PO Last administered on 00:42; Admin Dose 125 MG; Start 07/10/16 at 12:00 Cholestyramine Resin (Questran Light) 4 gm BID PO Last administered on 08:56; Admin Dose 4 GM; Start 07/11/16 at 09:00 Gabapentin (Neurontin) 600 mg TID PO Last administered on 07/20/16 20:29; Admin Dose 600 MG; Start 07/14/16 at 21:00 Pantoprazole (Protonix Tab) 40 mg DAILY@06 PO Last administered on 07/20/16 05: 36; Admin Dose 40 MG; Start 07/16/16 at 06:00 ANGELINA CASTREJON Jul 21, 2016 16:08
[2016-07-21] MEDS ORDERED: HEPARIN 1000 UNITS/NS (A-LINE) 1,000 ML ONE (16:19)
[2016-07-21] MEDS ORDERED: LIDOCAINE 1% (MDV) 20 ML INJ ONE (16:19)
[2016-07-21] MEDS ORDERED: ONDANSETRON 4 MG INJ IV PRN (16:30)
[2016-07-21] MEDS ORDERED: DIPHENHYDRAMINE 50 MG INJ ONE (16:33)
[2016-07-21] MEDS ORDERED: MIDAZOLAM 1 MG/ML 2 ML INJ ONE (16:35)
[2016-07-21] MEDS ORDERED: FENTAnyl 50 MCG/ML VIAL ONE (16:36)
--- NOTE | 2016-07-21 17:34 | CONS ---
Date/Time of Note Date/Time of Note DATE: 07/21/16 TIME: 17:32 Consult Date/Type/Reason Admit Date/Time Jul 11, 2016 at 12:19 Type of Consultation: neph Subjective Patient taken down or the vascular surgery now. Objective Vital Signs Date Time Temp Pulse Resp B/P Pulse Ox O2 Delivery O2 Flow Rate FiO2 07/21/16 15:14 134/79 07/21/16 07:38 98.3 76 19 95 07/20/16 20:54 Room Air Intake and Output 07/20/16 07/20/16 07/21/16 15:00 23:00 07:00 Intake Total 1320 ml 780 ml Output Total 1500 ml 650 ml Balance -180 ml 130 ml Results/Medications Result Diagram: 07/21/16 0515 07/21/16 0515 Results 24 hrs Laboratory Tests Test 07/20/16 17:37 07/20/16 20:33 07/20/16 20:57 07/20/16 22:00 Bedside Glucose 118 56 L 164 Stool Occult Blood NEGATIVE Test 07/21/16 05:15 07/21/16 08:01 07/21/16 12:18 Anion Gap 18 H Basophils # 0.0 Basophils % 0.7 Blood Morphology Comment Blood Urea Nitrogen 49 #H Calcium Level 7.5 L Carbon Dioxide Level 31 # Chloride Level 93 L Creatinine 5.00 #H Eosinophils # 0.4 Eosinophils % 7.4 H Glucose Level 104 # Hematocrit 30.4 L Hemoglobin 10.2 L Lymphocytes # 1.1 Lymphocytes % 18.8 Magnesium Level 1.7 Mean Corpuscular Hemoglobin 30.7 Mean Corpuscular Hemoglobin Concent 33.5 Mean Corpuscular Volume 91.7 Mean Platelet Volume 9.6 Monocytes # 0.7 Monocytes % 12.5 H Neutrophils # 3.6 Neutrophils % 60.6 Nucleated Red Blood Cells # 0.0 Nucleated Red Blood Cells % 0.0 Platelet Count 185 Potassium Level 5.1 Red Blood Count 3.31 L Red Cell Distribution Width 16.1 H Sodium Level 137 White Blood Count 5.9 Bedside Glucose 156 168 Medications Current Medications Hydromorphone HCl (Dilaudid) 1 mg Q3 PRN IV PAIN Last administered on 07/21/16t 15:34; Admin Dose 1 MG; Start 07/09/16 at 17:00 Diphenhydramine HCl (Benadryl) 50 mg Q6H PRN IV ITCHING Last administered on 12:47; Admin Dose 50 MG; Start 07/09/16 at 17:00 Non-Formulary Medication (Non-Formulary Insulin) INSULIN PUMP see la... [id number] SC Last administered on 07/18/16 14:17; Admin Dose 5 UNIT; Start 07/09/16 at 19 :45 Non-Formulary Medication (Non-Formulary Insulin) INSULIN PUMP see la... HS SC Last administered on 07/11/16 21:00; Admin Dose 2 UNIT; Start 07/09/16 at 21:00 Miscellaneous Information 1 ea NOTE XX ; Start 07/09/16 at 18:30 Glucose (Glutose) 15 gm Q15M PRN PO DECREASED GLUCOSE; Start 07/09/16 at 18:30 Glucose (Glutose) 22.5 gm Q15M PRN PO DECREASED GLUCOSE; Start 07/09/16 at 18: 30 Dextrose (D50w Syringe) 25 ml Q15M PRN IV DECREASED GLUCOSE Last administered on 07/20/16 20:36; Admin Dose 25 ML; Start 07/09/16 at 18:30 Dextrose (D50w Syringe) 50 ml Q15M PRN IV DECREASED GLUCOSE Last administered on 07/19/16 20:58; Admin Dose 50 ML; Start 07/09/16 at 18:30 Glucagon (Glucagen) 1 mg Q15M PRN IM DECREASED GLUCOSE; Start 07/09/16 at 18:30 Glucose (Glutose) 15 gm Q15M PRN BUCCAL DECREASED GLUCOSE; Start 07/09/16 at 18 :30 Aspirin (Halfprin) 81 mg DAILY PO Last administered on 07/20/16 08:55; Admin Dose 81 MG; Start 07/10/16 at 09:00 Atorvastatin Calcium (Lipitor) 80 mg QHS PO Last administered on 07/20/16 20:30 ; Admin Dose 80 MG; Start 07/10/16 at 21:00 Clonidine (Catapres) 0.1 mg Q6 PO Last administered on 07/21/16 06:54; Admin Dose 0.1 MG; Start 07/10/16 at 12:00 Isosorbide Mononitrate (Imdur) 60 mg DAILY PO Last administered on 07/20/16 08: 57; Admin Dose 60 MG; Start 07/10/16 at 10:00 Lactobacillus Acidoph/Bulgaricus (Floranex) 1 tab TID PO Last administered on 20:29; Admin Dose 1 TAB; Start 07/10/16 at 09:00 Metoprolol Succinate (Toprol Xl) 50 mg BID PO Last administered on 07/20/16 20: 29; Admin Dose 50 MG; Start 07/10/16 at 10:00 Prasugrel (Effient) 10 mg DAILY PO Last administered on 07/20/16 08:54; Admin Dose 10 MG; Start 07/10/16 at 10:30 Acetaminophen (Tylenol Tab) 500 mg Q4H PRN PO PAIN AND OR ELEVATED TEMP; Start 07/10/16 at 09:00 Vancomycin HCl (Vancomycin Oral Syringe) 125 mg Q6 PO Last administered on 00:42; Admin Dose 125 MG; Start 07/10/16 at 12:00 Cholestyramine Resin (Questran Light) 4 gm BID PO Last administered on 08:56; Admin Dose 4 GM; Start 07/11/16 at 09:00 Gabapentin (Neurontin) 600 mg TID PO Last administered on 07/20/16 20:29; Admin Dose 600 MG; Start 07/14/16 at 21:00 Pantoprazole (Protonix Tab) 40 mg DAILY@06 PO Last administered on 07/20/16 05: 36; Admin Dose 40 MG; Start 07/16/16 at 06:00 Ondansetron HCl (Zofran Inj) 4 mg Q4H PRN IV NAUSEA AND/OR VOMITING; Start 07/21 at 16:30 Assessment/Plan Chief Complaint/Hosp Course Ass 1. Leg pain. Likely neuropathic in part. Possibly vascular component. 2. Marked peripheral arterial disease per CT. 3. Possible right lumbar radiculopathy, long standing 3. Renal Failure Rec. 1. Continue Gabapentin to 600 mg tid. 2. Patient hAVING vascular procedure At present. 3. Consider Ortho or Neurosurgery eval re the possible lumbar radiculopathy, in the future. Problems: ENMA GRAHAM MD Jul 21, 2016 17:34
--- NOTE | 2016-07-21 18:28 | CONS ---
Date/Time of Note Date/Time of Note DATE: 07/21/16 TIME: 18:27 Assessment/Plan Assessment/Plan Additional Assessment/Plan Assessment/Plan Additional Assessment/Plan IMPRESSION: 1. Diarrhea. 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 Improved after Questran restarted. C. Diff negative.better 2. Diabetes mellitus. 3. Renal failure. 4. Coronary artery disease. 5. Hypertension. 6.pain lower extremity PLAN: 1. Continue Questran 2. if diarrhea do not improve, can titrate up Questran 3. can also consider colonoscopy to r/o microscopic colitis if diarrhea do not improve. 4.vascular study today Consultation Date/Type/Reason Admit Date/Time Jul 11, 2016 at 12:19 Type of Consultation: neph 24 HR Interval Summary Constitutional: improved Exam/Review of Systems Vital Signs Vitals Vital Signs Date Time Temp Pulse Resp B/P Pulse Ox O2 Delivery O2 Flow Rate FiO2 07/21/16 17:26 98.2 65 18 131/73 99 Room Air Intake and Output 07/20/16 07/20/16 07/21/16 15:00 23:00 07:00 Intake Total 1320 ml 780 ml Output Total 1500 ml 650 ml Balance -180 ml 130 ml Exam Constitutional: alert, oriented, well developed Psych: nl mood/affect, no complaints Head: atraumatic, normocephalic Eyes: EOMI, PERRL, nl conjunctiva, nl lids, nl sclera ENMT: nl external ears & nose, nl lips & teeth, nl nasal mucosa & septum Neck: non-tender, supple Respiratory: clear to auscultation, normal air movement Cardiovascular: nl pulses, regular rate and rhythm Gastrointestinal: nl liver, spleen, non-tender, soft Musculoskeletal: nl extremities to inspection, nl gait and stance Extremities: normal pulses 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: RAILWAY SHUNTER II-XII intact, nl mental status, nl speech, nl strength Skin: nl turgor, No rash or lesions Lymph: nl lymph nodes Results Result Diagram: 07/21/1615 07/21/1615 Results 24 hrs Laboratory Tests Test 07/20/16 20:33 07/20/16 20:57 07/20/16 22:00 07/21/16 05:15 Bedside Glucose 56 L 164 Stool Occult Blood NEGATIVE Anion Gap 18 H Basophils # 0.0 Basophils % 0.7 Blood Morphology Comment Blood Urea Nitrogen 49 #H Calcium Level 7.5 L Carbon Dioxide Level 31 # Chloride Level 93 L Creatinine 5.00 #H Eosinophils # 0.4 Eosinophils % 7.4 H Glucose Level 104 # Hematocrit 30.4 L Hemoglobin 10.2 L Lymphocytes # 1.1 Lymphocytes % 18.8 Magnesium Level 1.7 Mean Corpuscular Hemoglobin 30.7 Mean Corpuscular Hemoglobin Concent 33.5 Mean Corpuscular Volume 91.7 Mean Platelet Volume 9.6 Monocytes # 0.7 Monocytes % 12.5 H Neutrophils # 3.6 Neutrophils % 60.6 Nucleated Red Blood Cells # 0.0 Nucleated Red Blood Cells % 0.0 Platelet Count 185 Potassium Level 5.1 Red Blood Count 3.31 L Red Cell Distribution Width 16.1 H Sodium Level 137 White Blood Count 5.9 Test 07/21/16 08:01 07/21/16 12:18 Bedside Glucose 156 168 Medications Medications Current Medications Hydromorphone HCl (Dilaudid) 1 mg Q3 PRN IV PAIN Last administered on 07/21/16 15:34; Admin Dose 1 MG; Start 07/09/16 at 17:00 Diphenhydramine HCl (Benadryl) 50 mg Q6H PRN IV ITCHING Last administered on 12:47; Admin Dose 50 MG; Start 07/09/16 at 17:00 Non-Formulary Medication (Non-Formulary Insulin) INSULIN PUMP see la... [id number] Last administered on 07/18/16 14:17; Admin Dose 5 UNIT; Start 07/09/16 at 19 :45 Non-Formulary Medication (Non-Formulary Insulin) INSULIN PUMP see la... HS SC Last administered on 07/11/16 21:00; Admin Dose 2 UNIT; Start 07/09/16 at 21:00 Miscellaneous Information 1 ea NOTE XX ; Start 07/09/16 at 18:30 Glucose (Glutose) 15 gm Q15M PRN PO DECREASED GLUCOSE; Start 07/09/16 at 18:30 Glucose (Glutose) 22.5 gm Q15M PRN PO DECREASED GLUCOSE; Start 07/09/16 at 18: 30 Dextrose (D50w Syringe) 25 ml Q15M PRN IV DECREASED GLUCOSE Last administered on 07/20/16 20:36; Admin Dose 25 ML; Start 07/09/16 at 18:30 Dextrose (D50w Syringe) 50 ml Q15M PRN IV DECREASED GLUCOSE Last administered on 07/19/16 20:58; Admin Dose 50 ML; Start 07/09/16 at 18:30 Glucagon (Glucagen) 1 mg Q15M PRN IM DECREASED GLUCOSE; Start 07/09/16 at 18:30 Glucose (Glutose) 15 gm Q15M PRN BUCCAL DECREASED GLUCOSE; Start 07/09/16 at 18 :30 Aspirin (Halfprin) 81 mg DAILY PO Last administered on 07/20/16 08:55; Admin Dose 81 MG; Start 07/10/16 at 09:00 Atorvastatin Calcium (Lipitor) 80 mg QHS PO Last administered on 07/20/16 20:30 ; Admin Dose 80 MG; Start 07/10/16 at 21:00 Clonidine (Catapres) 0.1 mg Q6 PO Last administered on 07/21/16 06:54; Admin Dose 0.1 MG; Start 07/10/16 at 12:00 Isosorbide Mononitrate (Imdur) 60 mg DAILY PO Last administered on 07/20/16 08: 57; Admin Dose 60 MG; Start 07/10/16 at 10:00 Lactobacillus Acidoph/Bulgaricus (Floranex) 1 tab TID PO Last administered on 20:29; Admin Dose 1 TAB; Start 07/10/16 at 09:00 Metoprolol Succinate (Toprol Xl) 50 mg BID PO Last administered on 07/20/16 20: 29; Admin Dose 50 MG; Start 07/10/16 at 10:00 Prasugrel (Effient) 10 mg DAILY PO Last administered on 07/20/16 08:54; Admin Dose 10 MG; Start 07/10/16 at 10:30 Acetaminophen (Tylenol Tab) 500 mg Q4H PRN PO PAIN AND OR ELEVATED TEMP; Start 07/10/16 at 09:00 Vancomycin HCl (Vancomycin Oral Syringe) 125 mg Q6 PO Last administered on 00:42; Admin Dose 125 MG; Start 07/10/16 at 12:00 Cholestyramine Resin (Questran Light) 4 gm BID PO Last administered on 08:56; Admin Dose 4 GM; Start 07/11/16 at 09:00 Gabapentin (Neurontin) 600 mg TID PO Last administered on 07/20/16 20:29; Admin Dose 600 MG; Start 07/14/16 at 21:00 Pantoprazole (Protonix Tab) 40 mg DAILY@06 PO Last administered on 07/20/16 05: 36; Admin Dose 40 MG; Start 07/16/16 at 06:00 Ondansetron HCl (Zofran Inj) 4 mg Q4H PRN IV NAUSEA AND/OR VOMITING; Start 07/21 at 16:30 NIYAH REED MD Jul 21, 2016 18:28
[2016-07-21] MEDS: ATORVASTATIN 80 MG TAB PO SCH (21:27)
[2016-07-21] MEDS: PATIROMER CALCIUM SORBITEX 8.4 GM PKT PO SCH (21:58)
[2016-07-21] MEDS ORDERED: HYDROmorphONE 1 MG/ML SYG IV STA (22:47)
[2016-07-22] VITALS (11 sets, daily range): BP systolic 99–157; BP diastolic 58–86; PULSE 70–83; RESP 18–20
[2016-07-22] MEDS: HYDROmorphONE 1 MG/ML SYG IV PRN ×8 (00:28→21:11)
[2016-07-22] MEDS: DIPHENHYDRAMINE 50 MG INJ IV PRN ×3 (03:28→18:11)
[2016-07-22] MEDS: VANCOMYCIN HCL 250 MG/5ML POSYG PO SCH ×3 (05:17→18:10)
[2016-07-22] MEDS: PANTOPRAZOLE (EC) 40 MG TAB PO SCH (05:17)
[2016-07-22 06:43] LABS: BASOPHILS % 0.6 % (0.0-2.0); EOSINOPHILS # 0.5 10^3/ul (0.0-0.5); EOSINOPHILS % 7.1 % (0.0-7.0); HEMATOCRIT 33.2 % (42.0-52.0); HEMOGLOBIN 11.2 g/dl (14.0-18.0); LYMPHOCYTES % 13.6 % (15.0-51.0); MEAN CORPUSCULAR HEMOGLOBIN 30.8 pg (29.0-33.0); MEAN CORPUSCULAR HGB CONC 33.6 g/dl (32.0-37.0); MEAN CORPUSCULAR VOLUME 91.6 fl (82.0-101.0); MEAN PLATELET VOLUME 10.1 fl (7.4-10.4); MONOCYTE # 0.7 10^3/ul (0.3-0.9); MONOCYTES % 8.8 % (0.0-11.0); NEUTROPHIL # 5.2 10^3/ul (1.6-7.5); NEUTROPHILS % 69.9 % (39.0-77.0); PLATELET COUNT 201 10^3/UL (140-440); RED BLOOD COUNT 3.62 10^6/ul (4.70-6.10); RED CELL DISTRIBUTION WIDTH 15.6 % (11.5-14.5); UNCORRECTED WBC 7.5 10^3/ul (4.8-10.8); WHITE BLOOD COUNT 7.5 10^3/ul (4.8-10.8)
[2016-07-22 06:52] LABS: CREATININE 7.59 mg/dl (0.61-1.24)
[2016-07-22 06:53] LABS: CALCIUM 6.8 mg/dl (8.4-10.2)
[2016-07-22 06:59] LABS: POTASSIUM 6.5 mmol/L (3.5-5.1)
[2016-07-22 07:18] LABS: CONDITION 1; LH ANALYZER COMMENTS 1
[2016-07-22] MEDS: METOPROLOL (XL) 50 MG TAB PO SCH ×2 (08:35→21:14)
[2016-07-22] MEDS: PRASUGREL HYDROCHLORIDE 10 MG TABLET PO SCH (08:36)
[2016-07-22] MEDS: LACTOBACILLUS CHEW TAB PO SCH ×3 (08:36→21:11)
[2016-07-22] MEDS: CALCIUM ACETATE 667 MG CAP PO SCH ×3 (08:36→18:21)
[2016-07-22] MEDS: ASPIRIN (EC) 81 MG TAB PO SCH (08:36)
[2016-07-22] MEDS: SEVELAMER 800 MG TAB PO SCH ×3 (08:36→18:11)
[2016-07-22] MEDS: GABAPENTIN 300 MG CAP PO SCH ×3 (08:36→21:11)
[2016-07-22] MEDS: ISOSORBIDE MONONITRATE(SR)60 MG TAB PO SCH (08:37)
[2016-07-22] MEDS: CHOLESTYRAMINE (LIGHT) 4 GM PACKET PO SCH ×2 (08:37→21:00)
--- NOTE | 2016-07-22 09:05 | CONS ---
Date/Time of Note Date/Time of Note DATE: 07/22/16 TIME: 09:01 Assessment/Plan Assessment/Plan Chief Complaint/Hosp Course #1 end-stage renal disease, on maintenance hemodialysis Thursday.He is going to have hemodialysis now . #2 bilateral foot pain.He has a high grade stenosis in the L superfiscial femoral artery and other diffuse ASCVD , vascular W/U is in progress . He was scheduled for an angiogram and angioplasty yesterday ; however it was canceled and rescheduled for today. #3 anemia. There is no history of blood loss.will order stool for OB #4 hyperkalemia . He is taking Veltassa for elevated K .His K is high today . I will dialyze him with a 1 K dialysis bath and will increase the Veltassa to 16.8 gm a day . Problems: Consultation Date/Type/Reason Admit Date/Time Jul 11, 2016 at 12:19 Type of Consultation: neph 24 HR Interval Summary Free Text/Dictation he has no new complaints today . Constitutional: no complaints Exam/Review of Systems Vital Signs Vitals Vital Signs Date Time Temp Pulse Resp B/P Pulse Ox O2 Delivery O2 Flow Rate FiO2 07/22/16 07:20 97.9 71 20 140/82 98 07/21/16 17:51 Room Air Exam Constitutional: alert, oriented, well developed Psych: nl mood/affect, no complaints Respiratory: clear to auscultation, normal air movement Cardiovascular: nl pulses, regular rate and rhythm Musculoskeletal: nl extremities to inspection Results Result Diagram: 07/22/16 0530 07/22/16 0530 Results 24 hrs Laboratory Tests Test 07/21/16 12:18 07/21/16 18:22 07/21/16 19:10 07/21/16 19:21 Bedside Glucose 168 59 L 54 L 61 L Test 07/21/16 20:08 07/21/16 21:36 07/22/16 05:30 07/22/16 05:32 Bedside Glucose 165 149 192 Anion Gap 24 H Basophils # 0.0 Basophils % 0.6 Blood Morphology Comment Blood Urea Nitrogen 75 H Calcium Level 6.8 L Carbon Dioxide Level 24 Chloride Level 95 L Creatinine 7.59 #H Eosinophils # 0.5 Eosinophils % 7.1 H Glucose Level 222 #H Hematocrit 33.2 L Hemoglobin 11.2 L Lymphocytes # 1.0 Lymphocytes % 13.6 L Mean Corpuscular Hemoglobin 30.8 Mean Corpuscular Hemoglobin Concent 33.6 Mean Corpuscular Volume 91.6 Mean Platelet Volume 10.1 Monocytes # 0.7 Monocytes % 8.8 Neutrophils # 5.2 Neutrophils % 69.9 Nucleated Red Blood Cells # 0.0 Nucleated Red Blood Cells % 0.0 Platelet Count 201 Potassium Level 6.5 *H Red Blood Count 3.62 L Red Cell Distribution Width 15.6 H Sodium Level 136 White Blood Count 7.5 # Test 07/22/16 06:38 07/22/16 08:08 Bedside Glucose 230 H 132 Medications Medications Current Medications Hydromorphone HCl (Dilaudid) 1 mg Q3 PRN IV PAIN Last administered on 07/22/16 06:20; Admin Dose 1 MG; Start 07/09/16 at 17:00 Diphenhydramine HCl (Benadryl) 50 mg Q6H PRN IV ITCHING Last administered on 03:28; Admin Dose 50 MG; Start 07/09/16 at 17:00 Non-Formulary Medication (Non-Formulary Insulin) INSULIN PUMP see la... [id number] Last administered on 07/22/16 08:51; Admin Dose 5 UNIT; Start 07/09/16 at 19 :45 Non-Formulary Medication (Non-Formulary Insulin) INSULIN PUMP see la... HS SC Last administered on 07/11/16 21:00; Admin Dose 2 UNIT; Start 07/09/16 at 21:00 Miscellaneous Information 1 ea NOTE XX ; Start 07/09/16 at 18:30 Glucose (Glutose) 15 gm Q15M PRN PO DECREASED GLUCOSE; Start 07/09/16 at 18:30 Glucose (Glutose) 22.5 gm Q15M PRN PO DECREASED GLUCOSE; Start 07/09/16 at 18: 30 Dextrose (D50w Syringe) 25 ml Q15M PRN IV DECREASED GLUCOSE Last administered on 07/20/16 20:36; Admin Dose 25 ML; Start 07/09/16 at 18:30 Dextrose (D50w Syringe) 50 ml Q15M PRN IV DECREASED GLUCOSE Last administered on 07/19/16 20:58; Admin Dose 50 ML; Start 07/09/16 at 18:30 Glucagon (Glucagen) 1 mg Q15M PRN IM DECREASED GLUCOSE; Start 07/09/16 at 18:30 Glucose (Glutose) 15 gm Q15M PRN BUCCAL DECREASED GLUCOSE; Start 07/09/16 at 18 :30 Aspirin (Halfprin) 81 mg DAILY PO Last administered on 07/22/16 08:36; Admin Dose 81 MG; Start 07/10/16 at 09:00 Atorvastatin Calcium (Lipitor) 80 mg QHS PO Last administered on 07/21/16 21:27 ; Admin Dose 80 MG; Start 07/10/16 at 21:00 Clonidine (Catapres) 0.1 mg Q6 PO Last administered on 07/22/16 05:17; Admin Dose 0.1 MG; Start 07/10/16 at 12:00 Isosorbide Mononitrate (Imdur) 60 mg DAILY PO Last administered on 07/22/16 08: 37; Admin Dose 60 MG; Start 07/10/16 at 10:00 Lactobacillus Acidoph/Bulgaricus (Floranex) 1 tab TID PO Last administered on 08:36; Admin Dose 1 TAB; Start 07/10/16 at 09:00 Metoprolol Succinate (Toprol Xl) 50 mg BID PO Last administered on 07/21/16 21: 28; Admin Dose 50 MG; Start 07/10/16 at 10:00 Prasugrel (Effient) 10 mg DAILY PO Last administered on 07/22/16 08:36; Admin Dose 10 MG; Start 07/10/16 at 10:30 Acetaminophen (Tylenol Tab) 500 mg Q4H PRN PO PAIN AND OR ELEVATED TEMP; Start 07/10/16 at 09:00 Vancomycin HCl (Vancomycin Oral Syringe) 125 mg Q6 PO Last administered on 05:17; Admin Dose 125 MG; Start 07/10/16 at 12:00 Cholestyramine Resin (Questran Light) 4 gm BID PO Last administered on 08:56; Admin Dose 4 GM; Start 07/11/16 at 09:00 Gabapentin (Neurontin) 600 mg TID PO Last administered on 07/22/16 08:36; Admin Dose 600 MG; Start 07/14/16 at 21:00 Pantoprazole (Protonix Tab) 40 mg DAILY@06 PO Last administered on 07/22/16 05: 17; Admin Dose 40 MG; Start 07/16/16 at 06:00 Ondansetron HCl (Zofran Inj) 4 mg Q4H PRN IV NAUSEA AND/OR VOMITING; Start 07/21 at 16:30 DONY HOWARD MD Jul 22, 2016 09:05
[2016-07-22] MEDS: LORAZEPAM 2 MG INJ IV SCH (09:22)
[2016-07-22] MEDS: DIPHENHYDRAMINE 50 MG INJ IV SCH (09:22)
[2016-07-22] MEDS: LIDOCAINE 1% (MDV) 20 ML INJ SC PRN (09:30)
[2016-07-22] MEDS: PATIROMER CALCIUM SORBITEX 8.4 GM PKT PO SCH (12:39)
--- NOTE | 2016-07-22 14:14 | CONS ---
Date/Time of Note Date/Time of Note DATE: 07/22/16 TIME: 14:10 Consult Date/Type/Reason Admit Date/Time Jul 11, 2016 at 12:19 Type of Consultation: neph Subjective Had angiogram yesterday and will need stent placement per patient. Aches at legs feel much better on the Gabaperntin. No new complaints. Objective Alert, Oriented. Chest clear. Heart RRR Abd Soft. Ext No synovitis. Neuro- less allodynia Vital Signs Date Time Temp Pulse Resp B/P Pulse Ox O2 Delivery O2 Flow Rate FiO2 07/22/16 12:00 70 07/22/16 08:30 18 07/22/16 08:00 97.7 140/82 98 Room Air Results/Medications Result Diagram: 07/22/16 0530 07/22/16 0530 Results 24 hrs Laboratory Tests Test 07/21/16 18:22 07/21/16 19:10 07/21/16 19:21 07/21/16 20:08 Bedside Glucose 59 L 54 L 61 L 165 Test 07/21/16 21:36 07/22/16 05:30 07/22/16 05:32 07/22/16 06:38 Bedside Glucose 149 192 230 H Anion Gap 24 H Basophils # 0.0 Basophils % 0.6 Blood Morphology Comment Blood Urea Nitrogen 75 H Calcium Level 6.8 L Carbon Dioxide Level 24 Chloride Level 95 L Creatinine 7.59 #H Eosinophils # 0.5 Eosinophils % 7.1 H Glucose Level 222 #H Hematocrit 33.2 L Hemoglobin 11.2 L Lymphocytes # 1.0 Lymphocytes % 13.6 L Mean Corpuscular Hemoglobin 30.8 Mean Corpuscular Hemoglobin Concent 33.6 Mean Corpuscular Volume 91.6 Mean Platelet Volume 10.1 Monocytes # 0.7 Monocytes % 8.8 Neutrophils # 5.2 Neutrophils % 69.9 Nucleated Red Blood Cells # 0.0 Nucleated Red Blood Cells % 0.0 Platelet Count 201 Potassium Level 6.5 *H Red Blood Count 3.62 L Red Cell Distribution Width 15.6 H Sodium Level 136 White Blood Count 7.5 # Test 07/22/16 08:08 07/22/16 12:25 Bedside Glucose 132 135 Medications Current Medications Hydromorphone HCl (Dilaudid) 1 mg Q3 PRN IV PAIN Last administered on 07/22/16t 12:18; Admin Dose 1 MG; Start 07/09/16 at 17:00 Diphenhydramine HCl (Benadryl) 50 mg Q6H PRN IV ITCHING Last administered on 12:18; Admin Dose 50 MG; Start 07/09/16 at 17:00 Non-Formulary Medication (Non-Formulary Insulin) INSULIN PUMP see la... [id number] Last administered on 07/22/16 12:30; Admin Dose 6 UNIT; Start 07/09/16 at 19 :45 Non-Formulary Medication (Non-Formulary Insulin) INSULIN PUMP see la... HS SC Last administered on 07/11/16 21:00; Admin Dose 2 UNIT; Start 07/09/16 at 21:00 Miscellaneous Information 1 ea NOTE XX ; Start 07/09/16 at 18:30 Glucose (Glutose) 15 gm Q15M PRN PO DECREASED GLUCOSE; Start 07/09/16 at 18:30 Glucose (Glutose) 22.5 gm Q15M PRN PO DECREASED GLUCOSE; Start 07/09/16 at 18: 30 Dextrose (D50w Syringe) 25 ml Q15M PRN IV DECREASED GLUCOSE Last administered on 07/20/16 20:36; Admin Dose 25 ML; Start 07/09/16 at 18:30 Dextrose (D50w Syringe) 50 ml Q15M PRN IV DECREASED GLUCOSE Last administered on 07/19/16 20:58; Admin Dose 50 ML; Start 07/09/16 at 18:30 Glucagon (Glucagen) 1 mg Q15M PRN IM DECREASED GLUCOSE; Start 07/09/16 at 18:30 Glucose (Glutose) 15 gm Q15M PRN BUCCAL DECREASED GLUCOSE; Start 07/09/16 at 18 :30 Aspirin (Halfprin) 81 mg DAILY PO Last administered on 07/22/16 08:36; Admin Dose 81 MG; Start 07/10/16 at 09:00 Atorvastatin Calcium (Lipitor) 80 mg QHS PO Last administered on 07/21/16 21:27 ; Admin Dose 80 MG; Start 07/10/16 at 21:00 Clonidine (Catapres) 0.1 mg Q6 PO Last administered on 07/22/16 05:17; Admin Dose 0.1 MG; Start 07/10/16 at 12:00 Isosorbide Mononitrate (Imdur) 60 mg DAILY PO Last administered on 07/22/16 08: 37; Admin Dose 60 MG; Start 07/10/16 at 10:00 Lactobacillus Acidoph/Bulgaricus (Floranex) 1 tab TID PO Last administered on 12:18; Admin Dose 1 TAB; Start 07/10/16 at 09:00 Metoprolol Succinate (Toprol Xl) 50 mg BID PO Last administered on 07/21/16 21: 28; Admin Dose 50 MG; Start 07/10/16 at 10:00 Prasugrel (Effient) 10 mg DAILY PO Last administered on 07/22/16 08:36; Admin Dose 10 MG; Start 07/10/16 at 10:30 Acetaminophen (Tylenol Tab) 500 mg Q4H PRN PO PAIN AND OR ELEVATED TEMP; Start 07/10/16 at 09:00 Vancomycin HCl (Vancomycin Oral Syringe) 125 mg Q6 PO Last administered on 12:38; Admin Dose 125 MG; Start 07/10/16 at 12:00 Cholestyramine Resin (Questran Light) 4 gm BID PO Last administered on 08:56; Admin Dose 4 GM; Start 07/11/16 at 09:00 Gabapentin (Neurontin) 600 mg TID PO Last administered on 07/22/16 12:18; Admin Dose 600 MG; Start 07/14/16 at 21:00 Pantoprazole (Protonix Tab) 40 mg DAILY@06 PO Last administered on 07/22/16 05: 17; Admin Dose 40 MG; Start 07/16/16 at 06:00 Ondansetron HCl (Zofran Inj) 4 mg Q4H PRN IV NAUSEA AND/OR VOMITING; Start 07/21 at 16:30 Assessment/Plan Chief Complaint/Hosp Course Ass 1. Leg pain. Likely neuropathic in part, responding to Gabapentin. 2. Marked peripheral arterial disease. 3. Possible right lumbar radiculopathy, long standing 3. Renal Failure Rec. 1. Continue Gabapentin to 600 mg tid. 2. Vascular procedure being planned.. 3. Consider Ortho or Neurosurgery eval re the possible lumbar radiculopathy, in the future. Problems: ENMA GRAHAM MD Jul 22, 2016 14:14
--- NOTE | 2016-07-22 17:35 | PN ---
Date/Time of Note Date/Time of Note DATE: 07/22/16 TIME: 17:32 Assessment/Plan VTE Prophylaxis VTE Prophylaxis Intervention: SCD's Lines/Catheters IV [facility] PORT Urinary Cath still in place: No Assessment/Plan Chief Complaint/Hosp Course ASSESSMENT AND PLAN: 1. Diarrhea with recent history of Clostridium difficile colitis, resolved. Continue patient on vancomycin and Questran. Dr. Gomez is following in gastroenterology consultation 2. Dehydration secondary to diarrhea with recent history of Clostridium difficile colitis. Stool for C. difficile is negative. 3. Type 1 diabetes mellitus with diabetic nephropathy. Continue NovoLog per insulin pump. 4. End-stage renal disease, hemodialysis dependent. Dr. Hubbard is following the patient in nephrology consultation. We will continue dialysis per schedule. 5. Coronary artery disease. Continue Imdur and metoprolol. 6. Hypertension. 7. Bilateral lower extremities pain. Dr. Orosco is following and rheumatology consultation. 8. Lateral lower extremities atherosclerosis. is following in vascular surgery consultation. S/p left lower extremity angio. Continue heparin for deep venous thrombosis prophylaxis and Pepcid for peptic ulcer disease prophylaxis. Further recommendations based on clinical course. Plan of care discussed with Dr. Roasles. Problems: Subjective 24 Hr Interval Summary Free Text/Dictation Still complains of bilateral lower extremities pain, able to able to ambulate, denies any diarrhea. Exam/Review of Systems Vital Signs Vitals Vital Signs Date Time Temp Pulse Resp B/P Pulse Ox O2 Delivery O2 Flow Rate FiO2 07/22/16 12:00 70 07/22/16 08:30 18 07/22/16 08:00 97.7 140/82 98 Room Air Exam GENERAL: Well-developed, well-nourished male, currently appears pale, awake, alert. HEENT: The patient has right eye prosthesis. Left pupil is equal, round, reactive to light and accommodation. NECK: Supple. No cervical lymphadenopathy, no thyromegaly. CHEST: Lungs clear bilaterally. There are no rhonchi, wheezes, rales noted. CARDIOVASCULAR: Normal S1, S2. No murmurs, gallops, clicks, rubs noted. ABDOMEN: Flat, soft, nondistended. The patient has generalized tenderness to epigastric tenderness on palpation. No guarding. EXTREMITIES: No edema, clubbing, cyanosis. Left upper extremity AV graft with a palpable thrill and audible bruit. SKIN: No rash, petechiae noted. NEUROLOGIC: The patient is awake, alert, and oriented x3. Results Result Diagram: 07/22/16 0530 07/22/16 0530 Results 24 hrs Laboratory Tests Test 07/21/16 18:22 07/21/16 19:10 07/21/16 19:21 07/21/16 20:08 Bedside Glucose 59 L 54 L 61 L 165 Test 07/21/16 21:36 07/22/16 05:30 07/22/16 05:32 07/22/16 06:38 Bedside Glucose 149 192 230 H Anion Gap 24 H Basophils # 0.0 Basophils % 0.6 Blood Morphology Comment Blood Urea Nitrogen 75 H Calcium Level 6.8 L Carbon Dioxide Level 24 Chloride Level 95 L Creatinine 7.59 #H Eosinophils # 0.5 Eosinophils % 7.1 H Glucose Level 222 #H Hematocrit 33.2 L Hemoglobin 11.2 L Lymphocytes # 1.0 Lymphocytes % 13.6 L Mean Corpuscular Hemoglobin 30.8 Mean Corpuscular Hemoglobin Concent 33.6 Mean Corpuscular Volume 91.6 Mean Platelet Volume 10.1 Monocytes # 0.7 Monocytes % 8.8 Neutrophils # 5.2 Neutrophils % 69.9 Nucleated Red Blood Cells # 0.0 Nucleated Red Blood Cells % 0.0 Platelet Count 201 Potassium Level 6.5 *H Red Blood Count 3.62 L Red Cell Distribution Width 15.6 H Sodium Level 136 White Blood Count 7.5 # Test 07/22/16 08:08 07/22/16 12:25 07/22/16 15:22 Bedside Glucose 132 135 229 H Medications Medications Current Medications Hydromorphone HCl (Dilaudid) 1 mg Q3 PRN IV PAIN Last administered on 07/22/16 15:15; Admin Dose 1 MG; Start 07/09/16 at 17:00 Diphenhydramine HCl (Benadryl) 50 mg Q6H PRN IV ITCHING Last administered on 12:18; Admin Dose 50 MG; Start 07/09/16 at 17:00 Non-Formulary Medication (Non-Formulary Insulin) INSULIN PUMP see la... [id number] SC Last administered on 07/22/16 15:00; Admin Dose 3 UNIT; Start 07/09/16 at 19 :45 Non-Formulary Medication (Non-Formulary Insulin) INSULIN PUMP see la... HS SC Last administered on 07/11/16 21:00; Admin Dose 2 UNIT; Start 07/09/16 at 21:00 Miscellaneous Information 1 ea NOTE XX ; Start 07/09/16 at 18:30 Glucose (Glutose) 15 gm Q15M PRN PO DECREASED GLUCOSE; Start 07/09/16 at 18:30 Glucose (Glutose) 22.5 gm Q15M PRN PO DECREASED GLUCOSE; Start 07/09/16 at 18: 30 Dextrose (D50w Syringe) 25 ml Q15M PRN IV DECREASED GLUCOSE Last administered on 07/20/16 20:36; Admin Dose 25 ML; Start 07/09/16 at 18:30 Dextrose (D50w Syringe) 50 ml Q15M PRN IV DECREASED GLUCOSE Last administered on 07/19/16 20:58; Admin Dose 50 ML; Start 07/09/16 at 18:30 Glucagon (Glucagen) 1 mg Q15M PRN IM DECREASED GLUCOSE; Start 07/09/16 at 18:30 Glucose (Glutose) 15 gm Q15M PRN BUCCAL DECREASED GLUCOSE; Start 07/09/16 at 18 :30 Aspirin (Halfprin) 81 mg DAILY PO Last administered on 07/22/16 08:36; Admin Dose 81 MG; Start 07/10/16 at 09:00 Atorvastatin Calcium (Lipitor) 80 mg QHS PO Last administered on 07/21/16 21:27 ; Admin Dose 80 MG; Start 07/10/16 at 21:00 Clonidine (Catapres) 0.1 mg Q6 PO Last administered on 07/22/16 05:17; Admin Dose 0.1 MG; Start 07/10/16 at 12:00 Isosorbide Mononitrate (Imdur) 60 mg DAILY PO Last administered on 07/22/16 08: 37; Admin Dose 60 MG; Start 07/10/16 at 10:00 Lactobacillus Acidoph/Bulgaricus (Floranex) 1 tab TID PO Last administered on 12:18; Admin Dose 1 TAB; Start 07/10/16 at 09:00 Metoprolol Succinate (Toprol Xl) 50 mg BID PO Last administered on 07/21/16 21: 28; Admin Dose 50 MG; Start 07/10/16 at 10:00 Prasugrel (Effient) 10 mg DAILY PO Last administered on 07/22/16 08:36; Admin Dose 10 MG; Start 07/10/16 at 10:30 Acetaminophen (Tylenol Tab) 500 mg Q4H PRN PO PAIN AND OR ELEVATED TEMP; Start 07/10/16 at 09:00 Vancomycin HCl (Vancomycin Oral Syringe) 125 mg Q6 PO Last administered on 12:38; Admin Dose 125 MG; Start 07/10/16 at 12:00 Cholestyramine Resin (Questran Light) 4 gm BID PO Last administered on 08:56; Admin Dose 4 GM; Start 07/11/16 at 09:00 Gabapentin (Neurontin) 600 mg TID PO Last administered on 07/22/16 12:18; Admin Dose 600 MG; Start 07/14/16 at 21:00 Pantoprazole (Protonix Tab) 40 mg DAILY@06 PO Last administered on 07/22/16 05: 17; Admin Dose 40 MG; Start 07/16/16 at 06:00 Ondansetron HCl (Zofran Inj) 4 mg Q4H PRN IV NAUSEA AND/OR VOMITING; Start 07/21 at 16:30 ANGELINA CASTREJON Jul 22, 2016 17:35
[2016-07-22] MEDS: DEXTROSE 50% 50 ML SYRINGE IV PRN (18:29)
--- NOTE | 2016-07-22 19:58 | CONS ---
Date/Time of Note Date/Time of Note DATE: 07/22/16 TIME: 19:57 Assessment/Plan Assessment/Plan Additional Assessment/Plan Additional Assessment/Plan IMPRESSION: 1. Diarrhea. 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 Improved after Questran restarted. C. Diff negative.better 2. Diabetes mellitus. 3. Renal failure. 4. Coronary artery disease. 5. Hypertension. 6.pain lower extremity PLAN: 1. Continue Questran 2. if diarrhea do not improve, can titrate up Questran 3. can also consider colonoscopy to r/o microscopic colitis if diarrhea do not improve. Consultation Date/Type/Reason Admit Date/Time Jul 11, 2016 at 12:19 Type of Consultation: neph 24 HR Interval Summary Constitutional: improved Exam/Review of Systems Vital Signs Vitals Vital Signs Date Time Temp Pulse Resp B/P Pulse Ox O2 Delivery O2 Flow Rate FiO2 07/22/16 12:00 70 07/22/16 08:30 18 07/22/16 08:00 97.7 140/82 98 Room Air Exam Constitutional: alert, oriented, well developed Psych: nl mood/affect, no complaints Head: atraumatic, normocephalic Eyes: EOMI, PERRL, nl conjunctiva, nl lids, nl sclera ENMT: nl external ears & nose, nl lips & teeth, nl nasal mucosa & septum Neck: non-tender, supple Respiratory: clear to auscultation, normal air movement Cardiovascular: nl pulses, regular rate and rhythm Gastrointestinal: nl liver, spleen, non-tender, soft Musculoskeletal: nl extremities to inspection, nl gait and stance Extremities: normal pulses 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: PHYSICIAN ALLERGIST IMMUNOLOGIST II-XII intact, nl mental status, nl speech, nl strength Skin: nl turgor, No rash or lesions Lymph: nl lymph nodes Results Result Diagram: 07/22/16 0530 07/22/16 0530 Results 24 hrs Laboratory Tests Test 07/21/16 20:08 07/21/16 21:36 07/22/16 05:30 07/22/16 05:32 Bedside Glucose 165 149 192 Anion Gap 24 H Basophils # 0.0 Basophils % 0.6 Blood Morphology Comment Blood Urea Nitrogen 75 H Calcium Level 6.8 L Carbon Dioxide Level 24 Chloride Level 95 L Creatinine 7.59 #H Eosinophils # 0.5 Eosinophils % 7.1 H Glucose Level 222 #H Hematocrit 33.2 L Hemoglobin 11.2 L Lymphocytes # 1.0 Lymphocytes % 13.6 L Mean Corpuscular Hemoglobin 30.8 Mean Corpuscular Hemoglobin Concent 33.6 Mean Corpuscular Volume 91.6 Mean Platelet Volume 10.1 Monocytes # 0.7 Monocytes % 8.8 Neutrophils # 5.2 Neutrophils % 69.9 Nucleated Red Blood Cells # 0.0 Nucleated Red Blood Cells % 0.0 Platelet Count 201 Potassium Level 6.5 *H Red Blood Count 3.62 L Red Cell Distribution Width 15.6 H Sodium Level 136 White Blood Count 7.5 # Test 07/22/16 06:38 07/22/16 08:08 07/22/16 12:25 07/22/16 15:22 Bedside Glucose 230 H 132 135 229 H Test 07/22/16 18:18 07/22/16 19:03 Bedside Glucose 66 L 92 Medications Medications Current Medications Hydromorphone HCl (Dilaudid) 1 mg Q3 PRN IV PAIN Last administered on 07/22/16 18:11; Admin Dose 1 MG; Start 07/09/16 at 17:00 Diphenhydramine HCl (Benadryl) 50 mg Q6H PRN IV ITCHING Last administered on 18:11; Admin Dose 50 MG; Start 07/09/16 at 17:00 Non-Formulary Medication (Non-Formulary Insulin) INSULIN PUMP see la... [id number] Last administered on 07/22/16 15:00; Admin Dose 3 UNIT; Start 07/09/16 at 19 :45 Non-Formulary Medication (Non-Formulary Insulin) INSULIN PUMP see la... HS SC Last administered on 07/11/16 21:00; Admin Dose 2 UNIT; Start 07/09/16 at 21:00 Miscellaneous Information 1 ea NOTE XX ; Start 07/09/16 at 18:30 Glucose (Glutose) 15 gm Q15M PRN PO DECREASED GLUCOSE; Start 07/09/16 at 18:30 Glucose (Glutose) 22.5 gm Q15M PRN PO DECREASED GLUCOSE; Start 07/09/16 at 18: 30 Dextrose (D50w Syringe) 25 ml Q15M PRN IV DECREASED GLUCOSE Last administered on 07/22/16 18:29; Admin Dose 25 ML; Start 07/09/16 at 18:30 Dextrose (D50w Syringe) 50 ml Q15M PRN IV DECREASED GLUCOSE Last administered on 07/19/16 20:58; Admin Dose 50 ML; Start 07/09/16 at 18:30 Glucagon (Glucagen) 1 mg Q15M PRN IM DECREASED GLUCOSE; Start 07/09/16 at 18:30 Glucose (Glutose) 15 gm Q15M PRN BUCCAL DECREASED GLUCOSE; Start 07/09/16 at 18 :30 Aspirin (Halfprin) 81 mg DAILY PO Last administered on 07/22/16 08:36; Admin Dose 81 MG; Start 07/10/16 at 09:00 Atorvastatin Calcium (Lipitor) 80 mg QHS PO Last administered on 07/21/16 21:27 ; Admin Dose 80 MG; Start 07/10/16 at 21:00 Clonidine (Catapres) 0.1 mg Q6 PO Last administered on 07/22/16 18:20; Admin Dose 0.1 MG; Start 07/10/16 at 12:00 Isosorbide Mononitrate (Imdur) 60 mg DAILY PO Last administered on 07/22/16 08: 37; Admin Dose 60 MG; Start 07/10/16 at 10:00 Lactobacillus Acidoph/Bulgaricus (Floranex) 1 tab TID PO Last administered on 12:18; Admin Dose 1 TAB; Start 07/10/16 at 09:00 Metoprolol Succinate (Toprol Xl) 50 mg BID PO Last administered on 07/21/16 21: 28; Admin Dose 50 MG; Start 07/10/16 at 10:00 Prasugrel (Effient) 10 mg DAILY PO Last administered on 07/22/16 08:36; Admin Dose 10 MG; Start 07/10/16 at 10:30 Acetaminophen (Tylenol Tab) 500 mg Q4H PRN PO PAIN AND OR ELEVATED TEMP; Start 07/10/16 at 09:00 Vancomycin HCl (Vancomycin Oral Syringe) 125 mg Q6 PO Last administered on 18:10; Admin Dose 125 MG; Start 07/10/16 at 12:00 Cholestyramine Resin (Questran Light) 4 gm BID PO Last administered on 08:56; Admin Dose 4 GM; Start 1/27/17 at 09:00 Gabapentin (Neurontin) 600 mg TID PO Last administered on 07/22/16 12:18; Admin Dose 600 MG; Start 07/14/16 at 21:00 Pantoprazole (Protonix Tab) 40 mg DAILY@06 PO Last administered on 07/22/16 05: 17; Admin Dose 40 MG; Start 07/16/16 at 06:00 Ondansetron HCl (Zofran Inj) 4 mg Q4H PRN IV NAUSEA AND/OR VOMITING; Start 07/21 at 16:30 NIYAH REED MD Jul 22, 2016 19:58
--- NOTE | 2016-07-22 20:51 | OPR ---
DATE OF OPERATION: 07/21/2016 SURGEON: Anthony Byrnes MD FLUOROSCOPY DE LA ROSA: Blaise Zepeda DO PREOPERATIVE DIAGNOSIS: Bilateral lower extremity disabling claudication. POSTOPERATIVE DIAGNOSIS: Bilateral lower extremity disabling claudication. ANESTHESIA: Local with sedation. ESTIMATED BLOOD LOSS: Minimal. COMPLICATIONS: None. HEPARIN: None. CONTRAST: As recorded. ACCESS: Right common femoral artery 4/5 slender sheath. INDICATIONS: This is a 50-year-old gentleman who presented with bilateral lower extremity disabling claudication, history of diabetes. The patient has been a smoker in the past and has diminished le ft lower extremity pulses. Upon CT angiogram, it was identified the patient has stenosis within his femoral arteries. The patient had been informed of the alternatives, risks, and benefits of angiog reyna, balloon angioplasty, stenting, and atherectomy. Risks including but not limited to bleeding, t hrombosis, embolization, myocardial infarction, , stroke, device malfunction, infection, nephro toxicity and has agreed to proceed. PROCEDURE: 1. Ultrasound-guided access of the right common femoral artery. 2. Aortoiliac angiogram with bilateral iliac views. 3. Third order selection of the left common femoral artery. 4. Left lower extremity angiogram. 5. Right lower extremity angiogram. FINDINGS: 1. Bilateral renal arteries are patent. 2. Infrarenal aorta is patent with calcification in the distal most aspect. 3. Bilateral common iliac arteries, external iliac arteries, and internal iliac arteries are patent with calcification throughout. 4. Left common femoral artery is patent. 5. Left profunda femoral artery is patent in the proximal aspect and has moderate to severe disease post its second perforating branch. 6. Left superficial femoral artery has calcification throughout with near 90% stenosis in the mid a spect of the SFA. There is also moderate disease near the adductor canal. 7. Left above-knee popliteal artery is patent. 8. Left at-knee popliteal artery seems small in caliber, but patent. 9. Left below-knee popliteal artery is patent. 10. Left tibioperoneal trunk is patent. 11. Left anterior tibial artery in its proximal aspect and has mild to moderate disease and then pa tent down to the ankle. 12. Left posterior tibial is patent and becomes smaller in caliber near the common plantar artery. 13. Left peroneal artery is patent and small in caliber after this proximal aspect with a posterior communicating branch that is patent. 14. The left anterior communicating branch of the peroneal artery is not visualized. 15. Left common plantar artery is severely diseased. 16. Left medial and lateral plantar arteries are moderate to severely diseased. 17. The left dorsalis pedis artery is patent and has inline flow from the anterior tibial artery. 18. Right common femoral artery is patent. 19. Right profunda femoral artery is patent and normal in its proximal aspect and has moderate dise ase after the second perforating branch. 20. The right superficial femoral artery has calcification throughout with mild to moderate disease throughout. 21. Right above-knee popliteal artery is patent. 22. The right at-knee popliteal artery is small in caliber with moderate disease. 23. The right below-knee popliteal artery is patent. 24. The right tibioperoneal trunk is patent. 25. The right anterior tibial artery is patent. 26. The right posterior tibial artery is patent and in line to the common plantar, however, becomes small in caliber. 27. Right peroneal artery is patent and becomes small in caliber in the distal most aspect. 28. The right anterior and posterior communicating branch of the peroneal artery is not well visual ized. 29. Right common plantar artery is patent with severe disease. 30. The right dorsalis pedis artery is patent and in line with the anterior tibial artery. DESCRIPTION OF PROCEDURE: The patient was brought into the angio suite and positioned in the supine position on the fluoroscopic table. Sedation was administered without any complications. Bilatera l groins were shaved, prepped, and draped in usual sterile fashion. A timeout appropriate site was marked and confirmed. Local incision was infiltrated in the region of the right common femoral anita ry. The artery was the cannulated with a micro access needle under ultrasound guidance and a Guidew stanley was advanced into the iliac artery under fluoroscopic guidance. The needle was then removed and the microcatheter was placed. Bentson wire was then passed into the infrarenal aorta under fluoros copic guidance. This was followed by a short 4/5 Pashto slender sheath over the wire. The sheath w as then properly flushed with heparinized saline solution. An Omniflush catheter was then passed in to the suprarenal aorta and aortogram and imaging of the iliac arteries were performed. Findings ar e noted above. At this point, a Bentson wire was then passed through the Omniflush catheter, then u sed to select the contralateral common femoral artery for a third order selection. Left lower extre mity angiogram was then performed and the above findings are noted. No intervention was decided, as we do not have any drug-coated balloon angioplasty device or drug-eluting stents. The flush cathet er was then removed and the right lower extremity angiogram was performed through the sheath and the findings are noted above. At this point, the sheath was removed and manual pressure was held on th e patient and he was taken to the recovery room in stable condition. PLAN: Essentially the patient has significant disease in the mid aspect of his superficial femoral artery in which we will plan to intervene with a drug-coated balloon and possible drug-eluting stent s. These will be required to be special ordered and may take a day or 2. We discussed the findings with the patient and he has agreed to proceed with our plan. At the moment, there is no emergent i ntervention needed. The patient has inline flow all the way from the common femoral artery to the f oot. Dictated By: ANTHONY BLISS/SERGO Conf#: [id number] DID#: [id number] CC: WILMER RODRIGUEZ MD;*End*
[2016-07-22] MEDS: ATORVASTATIN 80 MG TAB PO SCH (21:11)
[2016-07-23] VITALS (10 sets, daily range): BP systolic 108–134; BP diastolic 63–77; PULSE 64–69; RESP 16
[2016-07-23] MEDS: DIPHENHYDRAMINE 50 MG INJ IV PRN ×4 (00:01→18:29)
[2016-07-23] MEDS: HYDROmorphONE 1 MG/ML SYG IV PRN ×8 (00:01→21:20)
[2016-07-23] MEDS: VANCOMYCIN HCL 250 MG/5ML POSYG PO SCH ×4 (00:07→18:28)
[2016-07-23] MEDS: PANTOPRAZOLE (EC) 40 MG TAB PO SCH (06:01)
[2016-07-23 07:05] LABS: POTASSIUM 5.5 mmol/L (3.5-5.1)
[2016-07-23 07:08] LABS: CREATININE 5.97 mg/dl (0.61-1.24)
[2016-07-23 07:09] LABS: CALCIUM 6.9 mg/dl (8.4-10.2)
[2016-07-23] MEDS: CALCIUM ACETATE 667 MG CAP PO SCH ×3 (08:15→18:29)
[2016-07-23] MEDS: SEVELAMER 800 MG TAB PO SCH ×3 (08:15→18:28)
[2016-07-23] MEDS: PRASUGREL HYDROCHLORIDE 10 MG TABLET PO SCH (08:28)
[2016-07-23] MEDS: CHOLESTYRAMINE (LIGHT) 4 GM PACKET PO SCH ×2 (08:32→21:21)
[2016-07-23] MEDS: ASPIRIN (EC) 81 MG TAB PO SCH (08:32)
[2016-07-23] MEDS: ISOSORBIDE MONONITRATE(SR)60 MG TAB PO SCH (08:32)
[2016-07-23] MEDS: LACTOBACILLUS CHEW TAB PO SCH ×3 (08:32→21:21)
[2016-07-23] MEDS: GABAPENTIN 300 MG CAP PO SCH ×3 (08:32→21:21)
[2016-07-23] MEDS: METOPROLOL (XL) 50 MG TAB PO SCH ×2 (08:32→21:22)
[2016-07-23] MEDS: DIPHENHYDRAMINE 50 MG INJ IV SCH (09:48)
[2016-07-23] MEDS: LORAZEPAM 2 MG INJ IV SCH (09:49)
[2016-07-23] MEDS: LIDOCAINE 1% (MDV) 20 ML INJ SC PRN (10:23)
[2016-07-23] MEDS: PATIROMER CALCIUM SORBITEX 8.4 GM PKT PO SCH ×2 (12:00→15:49)
--- NOTE | 2016-07-23 13:39 | CONS ---
Date/Time of Note Date/Time of Note DATE: 07/23/16 TIME: 13:35 Assessment/Plan Assessment/Plan Chief Complaint/Hosp Course #1 end-stage renal disease, on maintenance hemodialysis Thursday.He is going to have hemodialysis now . Hemodialysis ordered for tomorrow . #2 bilateral foot pain.He has a high grade stenosis in the L superfiscial femoral artery and other diffuse ASCVD , vascular W/U is in progress . He is scheduled to have an angioplasty and stent placement today on L leg . #3 anemia. H/H is stable #4 hyperkalemia . He is taking Veltassa for elevated K . I will increase the Veltassa to 16.8 gm a day . Problems: Consultation Date/Type/Reason Admit Date/Time Jul 11, 2016 at 12:19 Type of Consultation: neph 24 HR Interval Summary Free Text/Dictation He is having a dialysis treatment now . Constitutional: no complaints Exam/Review of Systems Vital Signs Vitals Vital Signs Date Time Temp Pulse Resp B/P Pulse Ox O2 Delivery O2 Flow Rate FiO2 07/23/16 13:25 66 18 07/23/16 09:04 97.7 126/70 98 07/22/16 08:00 Room Air Intake and Output 07/22/16 07/22/16 07/23/16 15:00 23:00 07:00 Intake Total 500 ml 700 ml 800 ml Output Total 3500 ml 400 ml 300 ml Balance -3000 ml 300 ml 500 ml Exam Constitutional: alert, oriented, well developed Psych: nl mood/affect, no complaints Respiratory: clear to auscultation, normal air movement Cardiovascular: regular rate and rhythm Gastrointestinal: soft Musculoskeletal: nl extremities to inspection Results Result Diagram: 07/22/16 0530 07/23/16 0535 Results 24 hrs Laboratory Tests Test 07/22/16 15:22 07/22/16 18:18 07/22/16 19:03 07/22/16 21:16 Bedside Glucose 229 H 66 L 92 79 Test 07/23/16 05:35 07/23/16 06:08 07/23/16 07:54 07/23/16 11:55 Anion Gap 23 H Blood Urea Nitrogen 64 H Calcium Level 6.9 L Carbon Dioxide Level 25 Chloride Level 92 L Creatinine 5.97 H Glucose Level 170 Magnesium Level 1.8 Potassium Level 5.5 H Sodium Level 134 L Bedside Glucose 164 156 108 Medications Medications Current Medications Hydromorphone HCl (Dilaudid) 1 mg Q3 PRN IV PAIN Last administered on 07/23/16 13:06; Admin Dose 1 MG; Start 07/09/16 at 17:00 Diphenhydramine HCl (Benadryl) 50 mg Q6H PRN IV ITCHING Last administered on 13:06; Admin Dose 50 MG; Start 07/09/16 at 17:00 Non-Formulary Medication (Non-Formulary Insulin) INSULIN PUMP see la... [id number] SC Last administered on 07/23/16 06:10; Admin Dose 1 UNIT; Start 07/09/16 at 19 :45 Non-Formulary Medication (Non-Formulary Insulin) INSULIN PUMP see la... HS SC Last administered on 07/11/16 21:00; Admin Dose 2 UNIT; Start 07/09/16 at 21:00 Miscellaneous Information 1 ea NOTE XX ; Start 07/09/16 at 18:30 Glucose (Glutose) 15 gm Q15M PRN PO DECREASED GLUCOSE; Start 07/09/16 at 18:30 Glucose (Glutose) 22.5 gm Q15M PRN PO DECREASED GLUCOSE; Start 07/09/16 at 18: 30 Dextrose (D50w Syringe) 25 ml Q15M PRN IV DECREASED GLUCOSE Last administered on 07/22/16 18:29; Admin Dose 25 ML; Start 07/09/16 at 18:30 Dextrose (D50w Syringe) 50 ml Q15M PRN IV DECREASED GLUCOSE Last administered on 07/19/16 20:58; Admin Dose 50 ML; Start 07/09/16 at 18:30 Glucagon (Glucagen) 1 mg Q15M PRN IM DECREASED GLUCOSE; Start 07/09/16 at 18:30 Glucose (Glutose) 15 gm Q15M PRN BUCCAL DECREASED GLUCOSE; Start 07/09/16 at 18 :30 Aspirin (Halfprin) 81 mg DAILY PO Last administered on 07/22/16 08:36; Admin Dose 81 MG; Start 07/10/16 at 09:00 Atorvastatin Calcium (Lipitor) 80 mg QHS PO Last administered on 07/22/16 21:11 ; Admin Dose 80 MG; Start 07/10/16 at 21:00 Clonidine (Catapres) 0.1 mg Q6 PO Last administered on 07/23/16 06:05; Admin Dose 0.1 MG; Start 07/10/16 at 12:00 Isosorbide Mononitrate (Imdur) 60 mg DAILY PO Last administered on 07/22/16 08: 37; Admin Dose 60 MG; Start 07/10/16 at 10:00 Lactobacillus Acidoph/Bulgaricus (Floranex) 1 tab TID PO Last administered on 21:11; Admin Dose 1 TAB; Start 07/10/16 at 09:00 Metoprolol Succinate (Toprol Xl) 50 mg BID PO Last administered on 07/22/16 21: 14; Admin Dose 50 MG; Start 07/10/16 at 10:00 Prasugrel (Effient) 10 mg DAILY PO Last administered on 07/22/16 08:36; Admin Dose 10 MG; Start 07/10/16 at 10:30 Acetaminophen (Tylenol Tab) 500 mg Q4H PRN PO PAIN AND OR ELEVATED TEMP; Start 07/10/16 at 09:00 Vancomycin HCl (Vancomycin Oral Syringe) 125 mg Q6 PO Last administered on 06:01; Admin Dose 125 MG; Start 07/10/16 at 12:00 Cholestyramine Resin (Questran Light) 4 gm BID PO Last administered on 08:56; Admin Dose 4 GM; Start 07/11/16 at 09:00 Gabapentin (Neurontin) 600 mg TID PO Last administered on 07/22/16 21:11; Admin Dose 600 MG; Start 07/14/16 at 21:00 Pantoprazole (Protonix Tab) 40 mg DAILY@06 PO Last administered on 07/23/16 06: 01; Admin Dose 40 MG; Start 07/16/16 at 06:00 Ondansetron HCl (Zofran Inj) 4 mg Q4H PRN IV NAUSEA AND/OR VOMITING; Start 07/21 at 16:30 DONY HOWARD MD Jul 23, 2016 13:39
--- NOTE | 2016-07-23 15:48 | PN ---
Date/Time of Note Date/Time of Note DATE: 07/23/16 TIME: 15:45 Assessment/Plan Lines/Catheters IV Catheter Type (from [facility]): portacath Foster in Place (from [facility]): No Assessment/Plan Chief Complaint/Hosp Course -End-stage renal disease: It seems that the patient's left upper extremity fistula is functioning well. Recommend continue with his hemodialysis sessions via the fistula. Patient also had his recent Perm-A-Cath removed. From a vascular standpoint, we will continue his fistula surveillance as an outpatient. -Bilateral lower extremity atherosclerosis: S/P angio with LLE SFA severe stenosis. I have discussed the findings with the patient and will schedule him for intervention with drug coated balloons, possible drug eluting stents. Unfortunately the devices were not available today as they will need to be ordered for the patient. Planning for intervention on Thursday -Optimize vascular status (BP meds, diet, nutrition, exercise, sugar control, antiplatelets). -Discussed findings with plan and management with the patient and he understands. -Thank you for allowing us to partake in the care of your patient. Please call with any questions. Problems: Subjective 24 Hr Interval Summary no new vascular events overnight, Exam/Review of Systems Vital Signs Vitals Vital Signs Date Time Temp Pulse Resp B/P Pulse Ox O2 Delivery O2 Flow Rate FiO2 07/23/16 13:25 66 18 07/23/16 09:04 97.7 126/70 98 07/22/16 08:00 Room Air Intake and Output 07/22/16 07/22/16 07/23/16 15:00 23:00 07:00 Intake Total 500 ml 700 ml 800 ml Output Total 3500 ml 400 ml 300 ml Balance -3000 ml 300 ml 500 ml Exam Free Text/Dictation GENERAL: Alert and oriented x3. PULMONARY: Clear to auscultation bilaterally. CARDIOVASCULAR: S1, S2 present. ABDOMEN: Soft, nontender, nondistended. Bowel sounds positive. EXTREMITIES: Left upper extremity palpable brachial pulse. Motor, sensory intact. Capillary refill 2 to 3 seconds. Surgical scars all well healed. Fistula with bruit and thrill present Right lower extremity palpable femoral pulse, palpable pedal pulse. Motor and sensory intact. Capillary refill 3 seconds Left lower extremity palpable femoral pulse, faint pedal pulse. Motor and sensory intact. Capillary refill 2 to 3 seconds Results Result Diagram: 07/22/16 0530 07/23/16 0535 JOE BARR MD Jul 23, 2016 15:48
--- NOTE | 2016-07-23 18:04 | PN ---
Date/Time of Note Date/Time of Note DATE: 07/23/16 TIME: 18:00 Assessment/Plan VTE Prophylaxis VTE Prophylaxis Intervention: SCD's Lines/Catheters IV [facility] ([facility] portacath Urinary Cath still in place: No Assessment/Plan Chief Complaint/Hosp Course ASSESSMENT AND PLAN: 1. Diarrhea with recent history of Clostridium difficile colitis, resolved. Continue patient on vancomycin and Questran. Dr. Gomez is following in gastroenterology consultation 2. Dehydration secondary to diarrhea with recent history of Clostridium difficile colitis. Stool for C. difficile is negative. 3. Type 1 diabetes mellitus with diabetic nephropathy. Continue NovoLog per insulin pump. 4. End-stage renal disease, hemodialysis dependent. Dr. Hubbard is following the patient in nephrology consultation. Continue dialysis per nephrology. 5. Coronary artery disease. Continue Imdur and metoprolol. 6. Hypertension. 7. Bilateral lower extremities pain. Dr. Orosco is following and rheumatology consultation. 8. Lateral lower extremities atherosclerosis. is following in vascular surgery consultation. S/P angio with LLE SFA severe stenosis. Plan for vascular intervention on Thursday. Continue heparin for deep venous thrombosis prophylaxis and Pepcid for peptic ulcer disease prophylaxis. Further recommendations based on clinical course. Plan of care discussed with Dr. Rosales. Problems: Subjective 24 Hr Interval Summary Free Text/Dictation No acute events overnight, patient denies any diarrhea nausea vomiting. Exam/Review of Systems Vital Signs Vitals Vital Signs Date Time Temp Pulse Resp B/P Pulse Ox O2 Delivery O2 Flow Rate FiO2 07/23/16 13:25 66 18 07/23/16 09:04 97.7 126/70 98 07/22/16 08:00 Room Air Intake and Output 07/22/16 07/22/16 07/23/16 15:00 23:00 07:00 Intake Total 500 ml 700 ml 800 ml Output Total 3500 ml 400 ml 300 ml Balance -3000 ml 300 ml 500 ml Exam GENERAL: Well-developed, well-nourished male, currently appears pale, awake, alert. HEENT: The patient has right eye prosthesis. Left pupil is equal, round, reactive to light and accommodation. NECK: Supple. No cervical lymphadenopathy, no thyromegaly. CHEST: Lungs clear bilaterally. There are no rhonchi, wheezes, rales noted. CARDIOVASCULAR: Normal S1, S2. No murmurs, gallops, clicks, rubs noted. ABDOMEN: Flat, soft, nondistended. The patient has generalized tenderness to epigastric tenderness on palpation. No guarding. EXTREMITIES: No edema, clubbing, cyanosis. Left upper extremity AV graft with a palpable thrill and audible bruit. SKIN: No rash, petechiae noted. NEUROLOGIC: The patient is awake, alert, and oriented x3. Results Result Diagram: 07/22/16 0530 07/23/16 0535 Results 24 hrs Laboratory Tests Test 07/22/16 18:18 07/22/16 19:03 07/22/16 21:16 07/23/16 05:35 Bedside Glucose 66 L 92 79 Anion Gap 23 H Blood Urea Nitrogen 64 H Calcium Level 6.9 L Carbon Dioxide Level 25 Chloride Level 92 L Creatinine 5.97 H Glucose Level 170 Magnesium Level 1.8 Potassium Level 5.5 H Sodium Level 134 L Test 07/23/16 06:08 07/23/16 07:54 07/23/16 11:55 07/23/16 16:57 Bedside Glucose 164 156 108 203 Medications Medications Current Medications Hydromorphone HCl (Dilaudid) 1 mg Q3 PRN IV PAIN Last administered on 07/23/16 15:48; Admin Dose 1 MG; Start 07/09/16 at 17:00 Diphenhydramine HCl (Benadryl) 50 mg Q6H PRN IV ITCHING Last administered on 13:06; Admin Dose 50 MG; Start 07/09/16 at 17:00 Non-Formulary Medication (Non-Formulary Insulin) INSULIN PUMP see la... [id number] Last administered on 07/23/16 17:17; Admin Dose 3 UNIT; Start 07/09/16 at 19 :45 Non-Formulary Medication (Non-Formulary Insulin) INSULIN PUMP see la... HS SC Last administered on 07/11/16 21:00; Admin Dose 2 UNIT; Start 07/09/16 at 21:00 Miscellaneous Information 1 ea NOTE XX ; Start 07/09/16 at 18:30 Glucose (Glutose) 15 gm Q15M PRN PO DECREASED GLUCOSE; Start 07/09/16 at 18:30 Glucose (Glutose) 22.5 gm Q15M PRN PO DECREASED GLUCOSE; Start 07/09/16 at 18: 30 Dextrose (D50w Syringe) 25 ml Q15M PRN IV DECREASED GLUCOSE Last administered on 07/22/16 18:29; Admin Dose 25 ML; Start 07/09/16 at 18:30 Dextrose (D50w Syringe) 50 ml Q15M PRN IV DECREASED GLUCOSE Last administered on 07/19/16 20:58; Admin Dose 50 ML; Start 07/09/16 at 18:30 Glucagon (Glucagen) 1 mg Q15M PRN IM DECREASED GLUCOSE; Start 07/09/16 at 18:30 Glucose (Glutose) 15 gm Q15M PRN BUCCAL DECREASED GLUCOSE; Start 07/09/16 at 18 :30 Aspirin (Halfprin) 81 mg DAILY PO Last administered on 07/22/16 08:36; Admin Dose 81 MG; Start 07/10/16 at 09:00 Atorvastatin Calcium (Lipitor) 80 mg QHS PO Last administered on 07/22/16 21:11 ; Admin Dose 80 MG; Start 07/10/16 at 21:00 Clonidine (Catapres) 0.1 mg Q6 PO Last administered on 07/23/16 06:05; Admin Dose 0.1 MG; Start 07/10/16 at 12:00 Isosorbide Mononitrate (Imdur) 60 mg DAILY PO Last administered on 07/22/16 08: 37; Admin Dose 60 MG; Start 07/10/16 at 10:00 Lactobacillus Acidoph/Bulgaricus (Floranex) 1 tab TID PO Last administered on 21:11; Admin Dose 1 TAB; Start 07/10/16 at 09:00 Metoprolol Succinate (Toprol Xl) 50 mg BID PO Last administered on 07/22/16 21: 14; Admin Dose 50 MG; Start 07/10/16 at 10:00 Prasugrel (Effient) 10 mg DAILY PO Last administered on 07/22/16 08:36; Admin Dose 10 MG; Start 07/10/16 at 10:30 Acetaminophen (Tylenol Tab) 500 mg Q4H PRN PO PAIN AND OR ELEVATED TEMP; Start 07/10/16 at 09:00 Vancomycin HCl (Vancomycin Oral Syringe) 125 mg Q6 PO Last administered on 06:01; Admin Dose 125 MG; Start 07/10/16 at 12:00 Cholestyramine Resin (Questran Light) 4 gm BID PO Last administered on 08:56; Admin Dose 4 GM; Start 07/11/16 at 09:00 Gabapentin (Neurontin) 600 mg TID PO Last administered on 07/22/16 21:11; Admin Dose 600 MG; Start 07/14/16 at 21:00 Pantoprazole (Protonix Tab) 40 mg DAILY@06 PO Last administered on 07/23/16 06: 01; Admin Dose 40 MG; Start 07/16/16 at 06:00 Ondansetron HCl (Zofran Inj) 4 mg Q4H PRN IV NAUSEA AND/OR VOMITING; Start 07/21 at 16:30 ANGELINA CASTREJON Jul 23, 2016 18:04
--- NOTE | 2016-07-23 18:19 | CONS ---
Date/Time of Note Date/Time of Note DATE: 07/23/16 TIME: 18:17 Assessment/Plan Assessment/Plan Additional Assessment/Plan Additional Assessment/Plan IMPRESSION: 1. Diarrhea. 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 Improved after Questran restarted. C. Diff negative.better 2. Diabetes mellitus. 3. Renal failure. 4. Coronary artery disease. 5. Hypertension. 6.pain lower extremity, Plan continue Questran vascular intervention as per vascular surgeon Consultation Date/Type/Reason Admit Date/Time Jul 11, 2016 at 12:19 Type of Consultation: neph 24 HR Interval Summary Constitutional: improved Exam/Review of Systems Vital Signs Vitals Vital Signs Date Time Temp Pulse Resp B/P Pulse Ox O2 Delivery O2 Flow Rate FiO2 07/23/16 13:25 66 18 07/23/16 09:04 97.7 126/70 98 07/22/16 08:00 Room Air Intake and Output 07/22/16 07/22/16 07/23/16 15:00 23:00 07:00 Intake Total 500 ml 700 ml 800 ml Output Total 3500 ml 400 ml 300 ml Balance -3000 ml 300 ml 500 ml Exam Constitutional: alert, oriented, well developed Psych: nl mood/affect, no complaints Head: atraumatic, normocephalic Eyes: EOMI, PERRL, nl conjunctiva, nl lids, nl sclera ENMT: nl external ears & nose, nl lips & teeth, nl nasal mucosa & septum Neck: non-tender, supple Respiratory: clear to auscultation, normal air movement Cardiovascular: nl pulses, regular rate and rhythm Gastrointestinal: nl liver, spleen, non-tender, soft Musculoskeletal: nl extremities to inspection, nl gait and stance Extremities: normal pulses 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: PURSE SEINING HAND II-XII intact, nl mental status, nl speech, nl strength Skin: nl turgor, No rash or lesions Lymph: nl lymph nodes Results Result Diagram: 07/22/16 0530 07/23/16 0535 Results 24 hrs Laboratory Tests Test 07/22/16 18:18 07/22/16 19:03 07/22/16 21:16 07/23/16 05:35 Bedside Glucose 66 L 92 79 Anion Gap 23 H Blood Urea Nitrogen 64 H Calcium Level 6.9 L Carbon Dioxide Level 25 Chloride Level 92 L Creatinine 5.97 H Glucose Level 170 Magnesium Level 1.8 Potassium Level 5.5 H Sodium Level 134 L Test 07/23/16 06:08 07/23/16 07:54 07/23/16 11:55 07/23/16 16:57 Bedside Glucose 164 156 108 203 Medications Medications Current Medications Hydromorphone HCl (Dilaudid) 1 mg Q3 PRN IV PAIN Last administered on 07/23/16 15:48; Admin Dose 1 MG; Start 07/09/16 at 17:00 Diphenhydramine HCl (Benadryl) 50 mg Q6H PRN IV ITCHING Last administered on 13:06; Admin Dose 50 MG; Start 07/09/16 at 17:00 Non-Formulary Medication (Non-Formulary Insulin) INSULIN PUMP see la... [id number] Last administered on 07/23/16 17:17; Admin Dose 3 UNIT; Start 07/09/16 at 19 :45 Non-Formulary Medication (Non-Formulary Insulin) INSULIN PUMP see la... HS SC Last administered on 07/11/16 21:00; Admin Dose 2 UNIT; Start 07/09/16 at 21:00 Miscellaneous Information 1 ea NOTE XX ; Start 07/09/16 at 18:30 Glucose (Glutose) 15 gm Q15M PRN PO DECREASED GLUCOSE; Start 07/09/16 at 18:30 Glucose (Glutose) 22.5 gm Q15M PRN PO DECREASED GLUCOSE; Start 07/09/16 at 18: 30 Dextrose (D50w Syringe) 25 ml Q15M PRN IV DECREASED GLUCOSE Last administered on 07/22/16 18:29; Admin Dose 25 ML; Start 07/09/16 at 18:30 Dextrose (D50w Syringe) 50 ml Q15M PRN IV DECREASED GLUCOSE Last administered on 07/19/16 20:58; Admin Dose 50 ML; Start 07/09/16 at 18:30 Glucagon (Glucagen) 1 mg Q15M PRN IM DECREASED GLUCOSE; Start 07/09/16 at 18:30 Glucose (Glutose) 15 gm Q15M PRN BUCCAL DECREASED GLUCOSE; Start 07/09/16 at 18 :30 Aspirin (Halfprin) 81 mg DAILY PO Last administered on 07/22/16 08:36; Admin Dose 81 MG; Start 07/10/16 at 09:00 Atorvastatin Calcium (Lipitor) 80 mg QHS PO Last administered on 07/22/16 21:11 ; Admin Dose 80 MG; Start 07/10/16 at 21:00 Clonidine (Catapres) 0.1 mg Q6 PO Last administered on 07/23/16 06:05; Admin Dose 0.1 MG; Start 07/10/16 at 12:00 Isosorbide Mononitrate (Imdur) 60 mg DAILY PO Last administered on 07/22/16 08: 37; Admin Dose 60 MG; Start 07/10/16 at 10:00 Lactobacillus Acidoph/Bulgaricus (Floranex) 1 tab TID PO Last administered on 21:11; Admin Dose 1 TAB; Start 07/10/16 at 09:00 Metoprolol Succinate (Toprol Xl) 50 mg BID PO Last administered on 07/22/16 21: 14; Admin Dose 50 MG; Start 07/10/16 at 10:00 Prasugrel (Effient) 10 mg DAILY PO Last administered on 07/22/16 08:36; Admin Dose 10 MG; Start 07/10/16 at 10:30 Acetaminophen (Tylenol Tab) 500 mg Q4H PRN PO PAIN AND OR ELEVATED TEMP; Start 07/10/16 at 09:00 Vancomycin HCl (Vancomycin Oral Syringe) 125 mg Q6 PO Last administered on 06:01; Admin Dose 125 MG; Start 07/10/16 at 12:00 Cholestyramine Resin (Questran Light) 4 gm BID PO Last administered on 08:56; Admin Dose 4 GM; Start 07/11/16 at 09:00 Gabapentin (Neurontin) 600 mg TID PO Last administered on 07/22/16 21:11; Admin Dose 600 MG; Start 07/14/16 at 21:00 Pantoprazole (Protonix Tab) 40 mg DAILY@06 PO Last administered on 07/23/16 06: 01; Admin Dose 40 MG; Start 07/16/16 at 06:00 Ondansetron HCl (Zofran Inj) 4 mg Q4H PRN IV NAUSEA AND/OR VOMITING; Start 07/21 at 16:30 NIYAH REED MD Jul 23, 2016 18:19
[2016-07-23] MEDS: ATORVASTATIN 80 MG TAB PO SCH (21:21)
[2016-07-24] VITALS (9 sets, daily range): BP systolic 103–160; BP diastolic 52–77; PULSE 69–87; RESP 19–20
[2016-07-24] MEDS: VANCOMYCIN HCL 250 MG/5ML POSYG PO SCH ×6 (00:12→18:03)
[2016-07-24] MEDS: HYDROmorphONE 1 MG/ML SYG IV PRN ×8 (00:13→21:02)
[2016-07-24] MEDS: DIPHENHYDRAMINE 50 MG INJ IV SCH ×3 (00:14→12:00)
[2016-07-24] MEDS: DIPHENHYDRAMINE 50 MG INJ IV PRN ×3 (06:01→18:03)
[2016-07-24] MEDS: PANTOPRAZOLE (EC) 40 MG TAB PO SCH (06:02)
[2016-07-24 06:07] LABS: POTASSIUM 5.9 mmol/L (3.5-5.1)
[2016-07-24 06:10] LABS: CREATININE 5.01 mg/dl (0.61-1.24)
[2016-07-24 06:11] LABS: CALCIUM 6.9 mg/dl (8.4-10.2)
--- NOTE | 2016-07-24 08:08 | PN ---
Date/Time of Note Date/Time of Note DATE: 07/24/16 TIME: 08:06 Assessment/Plan VTE Prophylaxis VTE Prophylaxis Intervention: heparin Lines/Catheters IV [facility] PORTACATH Urinary Cath still in place: No Assessment/Plan Assessment/Plan 1. Diarrhea with recent history of Clostridium difficile colitis. Continue patient on vancomycin and Questran. -stool for Clostridium difficile. 2. Dehydration secondary to diarrhea with recent history of Clostridium difficile colitis. Continue IV fluids. 3. Type 1 diabetes mellitus with diabetic nephropathy. Continue NovoLog per insulin pump. - Endocrinology consult appreciated- per Dr. Rob 4. End-stage renal disease, hemodialysis dependent. - Dr. Hubbard is following the patient in nephrology consultation. - HD today per staff 5. Coronary artery disease. 6. Hypertension. 7. Bilateral lower extremities pain. Dr. Orosco is following and rheumatology consultation. 8. Lateral lower extremities atherosclerosis. is following in vascular surgery consultation. S/P angio with LLE SFA severe stenosis. 9. Hyperkalemia- - sp Repeat K today - HD today - refused Kayexalate Continue heparin for deep venous thrombosis prophylaxis and Pepcid for peptic ulcer disease prophylaxis. Further recommendations based on clinical course. Plan of care discussed with Dr. Rosales. Subjective 24 Hr Interval Summary Eyes: no complaints ENT: no complaints Respiratory: no complaints Cardiovascular: no complaints Gastrointestinal: no complaints Genitourinary: no complaints Musculoskeletal: no complaints Skin: no complaints Neurologic: other (nerve pain both feet) Exam/Review of Systems Vital Signs Vitals Vital Signs Date Time Temp Pulse Resp B/P Pulse Ox O2 Delivery O2 Flow Rate FiO2 07/24/16 07:56 97.4 83 19 160/77 95 07/22/16 08:00 Room Air Intake and Output 07/23/16 07/23/16 07/24/16 15:00 23:00 07:00 Intake Total 500 ml 1200 ml 600 ml Output Total 2500 ml 850 ml 400 ml Balance -2000 ml 350 ml 200 ml Exam Constitutional: alert, oriented, well developed Psych: nl mood/affect Head: atraumatic Eyes: PERRL, other (left eye blindness) ENMT: nl external ears & nose Neck: non-tender Respiratory: clear to auscultation Cardiovascular: nl pulses Gastrointestinal: non-tender, soft Musculoskeletal: other Extremities: normal pulses 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: nl mental status, nl speech Lymph: nontender Results Result Diagram: 07/22/16 0530 07/24/16 0506 Results 24 hrs Laboratory Tests Test 07/23/16 11:55 07/23/16 16:57 07/23/16 21:25 07/24/16 02:21 Bedside Glucose 108 203 200 87 Test 07/24/16 05:06 Anion Gap 20 H Blood Urea Nitrogen 50 H Calcium Level 6.9 L Carbon Dioxide Level 27 Chloride Level 96 L Creatinine 5.01 H Glucose Level 113 # Potassium Level 5.9 H Sodium Level 137 Medications Medications Current Medications Hydromorphone HCl (Dilaudid) 1 mg Q3 PRN IV PAIN Last administered on 07/24/16 06:01; Admin Dose 1 MG; Start 07/09/16 at 17:00 Diphenhydramine HCl (Benadryl) 50 mg Q6H PRN IV ITCHING Last administered on 06:01; Admin Dose 50 MG; Start 07/09/16 at 17:00 Non-Formulary Medication (Non-Formulary Insulin) INSULIN PUMP see la... [id number] SC Last administered on 07/23/16 17:17; Admin Dose 3 UNIT; Start 07/09/16 at 19 :45 Non-Formulary Medication (Non-Formulary Insulin) INSULIN PUMP see la... HS SC Last administered on 07/11/16 21:00; Admin Dose 2 UNIT; Start 07/09/16 at 21:00 Miscellaneous Information 1 ea NOTE XX ; Start 07/09/16 at 18:30 Glucose (Glutose) 15 gm Q15M PRN PO DECREASED GLUCOSE; Start 07/09/16 at 18:30 Glucose (Glutose) 22.5 gm Q15M PRN PO DECREASED GLUCOSE; Start 07/09/16 at 18: 30 Dextrose (D50w Syringe) 25 ml Q15M PRN IV DECREASED GLUCOSE Last administered on 07/22/16 18:29; Admin Dose 25 ML; Start 07/09/16 at 18:30 Dextrose (D50w Syringe) 50 ml Q15M PRN IV DECREASED GLUCOSE Last administered on 07/19/16 20:58; Admin Dose 50 ML; Start 07/09/16 at 18:30 Glucagon (Glucagen) 1 mg Q15M PRN IM DECREASED GLUCOSE; Start 07/09/16 at 18:30 Glucose (Glutose) 15 gm Q15M PRN BUCCAL DECREASED GLUCOSE; Start 07/09/16 at 18 :30 Aspirin (Halfprin) 81 mg DAILY PO Last administered on 07/22/16 08:36; Admin Dose 81 MG; Start 07/10/16 at 09:00 Atorvastatin Calcium (Lipitor) 80 mg QHS PO Last administered on 07/23/16 21:21 ; Admin Dose 80 MG; Start 07/10/16 at 21:00 Clonidine (Catapres) 0.1 mg Q6 PO Last administered on 07/24/16 06:04; Admin Dose 0.1 MG; Start 07/10/16 at 12:00 Isosorbide Mononitrate (Imdur) 60 mg DAILY PO Last administered on 07/22/16 08: 37; Admin Dose 60 MG; Start 07/10/16 at 10:00 Lactobacillus Acidoph/Bulgaricus (Floranex) 1 tab TID PO Last administered on 21:21; Admin Dose 1 TAB; Start 07/10/16 at 09:00 Metoprolol Succinate (Toprol Xl) 50 mg BID PO Last administered on 07/23/16 21: 22; Admin Dose 50 MG; Start 07/10/16 at 10:00 Prasugrel (Effient) 10 mg DAILY PO Last administered on 07/22/16 08:36; Admin Dose 10 MG; Start 07/10/16 at 10:30 Acetaminophen (Tylenol Tab) 500 mg Q4H PRN PO PAIN AND OR ELEVATED TEMP; Start 07/10/16 at 09:00 Vancomycin HCl (Vancomycin Oral Syringe) 125 mg Q6 PO Last administered on 06:02; Admin Dose 125 MG; Start 07/10/16 at 12:00 Cholestyramine Resin (Questran Light) 4 gm BID PO Last administered on 21:21; Admin Dose 4 GM; Start 07/11/16 at 09:00 Gabapentin (Neurontin) 600 mg TID PO Last administered on 07/23/16 21:21; Admin Dose 600 MG; Start 07/14/16 at 21:00 Pantoprazole (Protonix Tab) 40 mg DAILY@06 PO Last administered on 07/24/16 06: 02; Admin Dose 40 MG; Start 07/16/16 at 06:00 Ondansetron HCl (Zofran Inj) 4 mg Q4H PRN IV NAUSEA AND/OR VOMITING; Start 07/21 at 16:30 PEDRO BENSON Jul 24, 2016 08:08
[2016-07-24] MEDS: ISOSORBIDE MONONITRATE(SR)60 MG TAB PO SCH (09:00)
[2016-07-24] MEDS: CHOLESTYRAMINE (LIGHT) 4 GM PACKET PO SCH ×2 (09:00→21:01)
[2016-07-24] MEDS: METOPROLOL (XL) 50 MG TAB PO SCH ×2 (09:00→21:02)
[2016-07-24] MEDS: SEVELAMER 800 MG TAB PO SCH ×4 (09:03→18:04)
[2016-07-24] MEDS: CALCIUM ACETATE 667 MG CAP PO SCH ×4 (09:04→18:04)
[2016-07-24] MEDS: LACTOBACILLUS CHEW TAB PO SCH ×4 (09:04→21:01)
[2016-07-24] MEDS: GABAPENTIN 300 MG CAP PO SCH ×4 (09:04→21:01)
[2016-07-24] MEDS: ASPIRIN (EC) 81 MG TAB PO SCH (09:05)
[2016-07-24] MEDS: PRASUGREL HYDROCHLORIDE 10 MG TABLET PO SCH (09:05)
[2016-07-24] MEDS: CALCITRIOL 0.25 MCG CAP PO SCH (10:00)
--- NOTE | 2016-07-24 10:01 | CONS ---
Date/Time of Note Date/Time of Note DATE: 07/24/16 TIME: 09:52 Assessment/Plan Assessment/Plan Chief Complaint/Hosp Course #1 end-stage renal disease, on maintenance hemodialysis Thursday.He is going to have hemodialysis today . #2 bilateral foot pain.He has a high grade stenosis in the L superfiscial femoral artery and other diffuse ASCVD , vascular W/U is in progress . He is scheduled to have an angioplasty and stent placement tomorrow on L leg . #3 anemia. H/H is stable #4 hyperkalemia . He is taking Veltassa for elevated K . I will increase the Veltassa to 16.8 gm a day . Problems: Consultation Date/Type/Reason Admit Date/Time Jul 11, 2016 at 12:19 Type of Consultation: neph 24 HR Interval Summary Free Text/Dictation His angiogram / angioplasty was postponed yesterday , rescheduled for tomorrow . Constitutional: no complaints Exam/Review of Systems Vital Signs Vitals Vital Signs Date Time Temp Pulse Resp B/P Pulse Ox O2 Delivery O2 Flow Rate FiO2 07/24/16 07:56 97.4 83 19 160/77 95 07/22/16 08:00 Room Air Intake and Output 07/23/16 07/23/16 07/24/16 15:00 23:00 07:00 Intake Total 500 ml 1200 ml 600 ml Output Total 2500 ml 850 ml 400 ml Balance -2000 ml 350 ml 200 ml Exam Constitutional: alert, oriented, well developed Psych: nl mood/affect, no complaints Respiratory: clear to auscultation, normal air movement Cardiovascular: regular rate and rhythm Musculoskeletal: nl extremities to inspection Results Result Diagram: 07/22/16 0530 07/24/16 0506 Results 24 hrs Laboratory Tests Test 07/23/16 11:55 07/23/16 16:57 07/23/16 21:25 07/24/16 02:21 Bedside Glucose 108 203 200 87 Test 07/24/16 05:06 07/24/16 08:09 Anion Gap 20 H Blood Urea Nitrogen 50 H Calcium Level 6.9 L Carbon Dioxide Level 27 Chloride Level 96 L Creatinine 5.01 H Glucose Level 113 # Potassium Level 5.9 H Sodium Level 137 Bedside Glucose 218 Medications Medications Current Medications Hydromorphone HCl (Dilaudid) 1 mg Q3 PRN IV PAIN Last administered on 07/24/16 08:59; Admin Dose 1 MG; Start 07/09/16 at 17:00 Diphenhydramine HCl (Benadryl) 50 mg Q6H PRN IV ITCHING Last administered on 06:01; Admin Dose 50 MG; Start 07/09/16 at 17:00 Non-Formulary Medication (Non-Formulary Insulin) INSULIN PUMP see la... [id number] SC Last administered on 07/24/16 07:00; Admin Dose 10 UNIT; Start 07/09/16 at 19:45 Non-Formulary Medication (Non-Formulary Insulin) INSULIN PUMP see la... HS SC Last administered on 07/11/16 21:00; Admin Dose 2 UNIT; Start 07/09/16 at 21:00 Miscellaneous Information 1 ea NOTE XX ; Start 07/09/16 at 18:30 Glucose (Glutose) 15 gm Q15M PRN PO DECREASED GLUCOSE; Start 07/09/16 at 18:30 Glucose (Glutose) 22.5 gm Q15M PRN PO DECREASED GLUCOSE; Start 07/09/16 at 18: 30 Dextrose (D50w Syringe) 25 ml Q15M PRN IV DECREASED GLUCOSE Last administered on 07/22/16 18:29; Admin Dose 25 ML; Start 07/09/16 at 18:30 Dextrose (D50w Syringe) 50 ml Q15M PRN IV DECREASED GLUCOSE Last administered on 07/19/16 20:58; Admin Dose 50 ML; Start 07/09/16 at 18:30 Glucagon (Glucagen) 1 mg Q15M PRN IM DECREASED GLUCOSE; Start 07/09/16 at 18:30 Glucose (Glutose) 15 gm Q15M PRN BUCCAL DECREASED GLUCOSE; Start 07/09/16 at 18 :30 Aspirin (Halfprin) 81 mg DAILY PO Last administered on 07/24/16 09:05; Admin Dose 81 MG; Start 07/10/16 at 09:00 Atorvastatin Calcium (Lipitor) 80 mg QHS PO Last administered on 07/23/16 21:21 ; Admin Dose 80 MG; Start 07/10/16 at 21:00 Clonidine (Catapres) 0.1 mg Q6 PO Last administered on 07/24/16 06:04; Admin Dose 0.1 MG; Start 07/10/16 at 12:00 Isosorbide Mononitrate (Imdur) 60 mg DAILY PO Last administered on 07/22/16 08: 37; Admin Dose 60 MG; Start 07/10/16 at 10:00 Lactobacillus Acidoph/Bulgaricus (Floranex) 1 tab TID PO Last administered on 09:04; Admin Dose 1 TAB; Start 07/10/16 at 09:00 Metoprolol Succinate (Toprol Xl) 50 mg BID PO Last administered on 07/23/16 21: 22; Admin Dose 50 MG; Start 07/10/16 at 10:00 Prasugrel (Effient) 10 mg DAILY PO Last administered on 07/24/16 09:05; Admin Dose 10 MG; Start 07/10/16 at 10:30 Acetaminophen (Tylenol Tab) 500 mg Q4H PRN PO PAIN AND OR ELEVATED TEMP; Start 07/10/16 at 09:00 Vancomycin HCl (Vancomycin Oral Syringe) 125 mg Q6 PO Last administered on 06:02; Admin Dose 125 MG; Start 07/10/16 at 12:00 Cholestyramine Resin (Questran Light) 4 gm BID PO Last administered on 21:21; Admin Dose 4 GM; Start 07/11/16 at 09:00 Gabapentin (Neurontin) 600 mg TID PO Last administered on 07/24/16 09:04; Admin Dose 600 MG; Start 07/14/16 at 21:00 Pantoprazole (Protonix Tab) 40 mg DAILY@06 PO Last administered on 07/24/16 06: 02; Admin Dose 40 MG; Start 07/16/16 at 06:00 Ondansetron HCl (Zofran Inj) 4 mg Q4H PRN IV NAUSEA AND/OR VOMITING; Start 07/21 at 16:30 DONY HOWARD MD Jul 24, 2016 09:54
[2016-07-24] MEDS: LORAZEPAM 2 MG INJ IV SCH (11:22)
[2016-07-24] MEDS: PATIROMER CALCIUM SORBITEX 8.4 GM PKT PO SCH ×2 (12:15→14:48)
--- NOTE | 2016-07-24 13:21 | CONS ---
Date/Time of Note Date/Time of Note DATE: 07/24/16 TIME: 13:19 Consult Date/Type/Reason Admit Date/Time Jul 11, 2016 at 12:19 Type of Consultation: Rheum Subjective No new complaints. Receiving dialysis at present. Objective Vital Signs Date Time Temp Pulse Resp B/P Pulse Ox O2 Delivery O2 Flow Rate FiO2 07/24/16 07:56 97.4 83 19 160/77 95 07/22/16 08:00 Room Air Intake and Output 07/23/16 07/23/16 07/24/16 15:00 23:00 07:00 Intake Total 500 ml 1200 ml 600 ml Output Total 2500 ml 850 ml 400 ml Balance -2000 ml 350 ml 200 ml Results/Medications Result Diagram: 07/22/16 0530 07/24/16 0506 Results 24 hrs Laboratory Tests Test 07/23/16 16:57 07/23/16 21:25 07/24/16 02:21 07/24/16 05:06 Bedside Glucose 203 200 87 Anion Gap 20 H Blood Urea Nitrogen 50 H Calcium Level 6.9 L Carbon Dioxide Level 27 Chloride Level 96 L Creatinine 5.01 H Glucose Level 113 # Potassium Level 5.9 H Sodium Level 137 Test 07/24/16 08:09 07/24/16 11:31 Bedside Glucose 218 163 Medications Current Medications Hydromorphone HCl (Dilaudid) 1 mg Q3 PRN IV PAIN Last administered on 07/24/16 12:02; Admin Dose 1 MG; Start 07/09/16 at 17:00 Diphenhydramine HCl (Benadryl) 50 mg Q6H PRN IV ITCHING Last administered on 12:08; Admin Dose 50 MG; Start 07/09/16 at 17:00 Non-Formulary Medication (Non-Formulary Insulin) INSULIN PUMP see la... [id number] Last administered on 07/24/16 10:08; Admin Dose 7 UNIT; Start 07/09/16 at 19 :45 Non-Formulary Medication (Non-Formulary Insulin) INSULIN PUMP see la... HS SC Last administered on 07/11/16 21:00; Admin Dose 2 UNIT; Start 07/09/16 at 21:00 Miscellaneous Information 1 ea NOTE XX ; Start 07/09/16 at 18:30 Glucose (Glutose) 15 gm Q15M PRN PO DECREASED GLUCOSE; Start 07/09/16 at 18:30 Glucose (Glutose) 22.5 gm Q15M PRN PO DECREASED GLUCOSE; Start 07/09/16 at 18: 30 Dextrose (D50w Syringe) 25 ml Q15M PRN IV DECREASED GLUCOSE Last administered on 07/22/16 18:29; Admin Dose 25 ML; Start 07/09/16 at 18:30 Dextrose (D50w Syringe) 50 ml Q15M PRN IV DECREASED GLUCOSE Last administered on 07/19/16 20:58; Admin Dose 50 ML; Start 07/09/16 at 18:30 Glucagon (Glucagen) 1 mg Q15M PRN IM DECREASED GLUCOSE; Start 07/09/16 at 18:30 Glucose (Glutose) 15 gm Q15M PRN BUCCAL DECREASED GLUCOSE; Start 07/09/16 at 18 :30 Aspirin (Halfprin) 81 mg DAILY PO Last administered on 07/24/16 09:05; Admin Dose 81 MG; Start 07/10/16 at 09:00 Atorvastatin Calcium (Lipitor) 80 mg QHS PO Last administered on 07/23/16 21:21 ; Admin Dose 80 MG; Start 07/10/16 at 21:00 Clonidine (Catapres) 0.1 mg Q6 PO Last administered on 07/24/16 06:04; Admin Dose 0.1 MG; Start 07/10/16 at 12:00 Isosorbide Mononitrate (Imdur) 60 mg DAILY PO Last administered on 07/22/16 08: 37; Admin Dose 60 MG; Start 07/10/16 at 10:00 Lactobacillus Acidoph/Bulgaricus (Floranex) 1 tab TID PO Last administered on 09:04; Admin Dose 1 TAB; Start 07/10/16 at 09:00 Metoprolol Succinate (Toprol Xl) 50 mg BID PO Last administered on 07/23/16 21: 22; Admin Dose 50 MG; Start 07/10/16 at 10:00 Prasugrel (Effient) 10 mg DAILY PO Last administered on 07/24/16 09:05; Admin Dose 10 MG; Start 07/10/16 at 10:30 Acetaminophen (Tylenol Tab) 500 mg Q4H PRN PO PAIN AND OR ELEVATED TEMP; Start 07/10/16 at 09:00 Vancomycin HCl (Vancomycin Oral Syringe) 125 mg Q6 PO Last administered on 06:02; Admin Dose 125 MG; Start 07/10/16 at 12:00 Cholestyramine Resin (Questran Light) 4 gm BID PO Last administered on 21:21; Admin Dose 4 GM; Start 07/11/16 at 09:00 Gabapentin (Neurontin) 600 mg TID PO Last administered on 07/24/16 09:04; Admin Dose 600 MG; Start 07/14/16 at 21:00 Pantoprazole (Protonix Tab) 40 mg DAILY@06 PO Last administered on 07/24/16 06: 02; Admin Dose 40 MG; Start 07/16/16 at 06:00 Ondansetron HCl (Zofran Inj) 4 mg Q4H PRN IV NAUSEA AND/OR VOMITING; Start 07/21 at 16:30 Calcitriol (Rocaltrol) 0.5 mcg DAILY PO ; Start 07/24/16 at 10:00 Assessment/Plan Chief Complaint/Hosp Course Ass 1. Leg pain. Likely neuropathic in part, responding to Gabapentin. 2. Marked peripheral arterial disease. 3. Possible right lumbar radiculopathy, long standing 3. Renal Failure Rec. 1. Continue Gabapentin to 600 mg tid. 2. Vascular procedure being planned for tomorrow.. 3. Consider Ortho or Neurosurgery eval re the possible lumbar radiculopathy, in the future. Problems: ENMA GRAHAM MD Jul 24, 2016 13:21
--- NOTE | 2016-07-24 13:34 | PN ---
Date/Time of Note Date/Time of Note DATE: 07/24/16 TIME: 13:32 Assessment/Plan Lines/Catheters IV Catheter Type (from [facility]): PORTACATH Foster in Place (from [facility]): No Assessment/Plan Chief Complaint/Hosp Course -End-stage renal disease: It seems that the patient's left upper extremity fistula is functioning well. Recommend continue with his hemodialysis sessions via the fistula. Patient also had his recent Perm-A-Cath removed. From a vascular standpoint, we will continue his fistula surveillance as an outpatient. -Bilateral lower extremity atherosclerosis: S/P angio with LLE SFA severe stenosis. I have discussed the findings with the patient and will schedule him for intervention with drug coated balloons, possible drug eluting stents. Unfortunately the devices were not available today as they will need to be ordered for the patient. Planning for intervention on Thursday -Optimize vascular status (BP meds, diet, nutrition, exercise, sugar control, antiplatelets). -Discussed findings with plan and management with the patient and he understands. -Thank you for allowing us to partake in the care of your patient. Please call with any questions. Problems: Subjective 24 Hr Interval Summary no new vascular events overnight Exam/Review of Systems Vital Signs Vitals Vital Signs Date Time Temp Pulse Resp B/P Pulse Ox O2 Delivery O2 Flow Rate FiO2 07/24/16 07:56 97.4 83 19 160/77 95 07/22/16 08:00 Room Air Intake and Output 07/23/16 07/23/16 07/24/16 15:00 23:00 07:00 Intake Total 500 ml 1200 ml 600 ml Output Total 2500 ml 850 ml 400 ml Balance -2000 ml 350 ml 200 ml Exam Free Text/Dictation GENERAL: Alert and oriented x3. PULMONARY: Clear to auscultation bilaterally. CARDIOVASCULAR: S1, S2 present. ABDOMEN: Soft, nontender, nondistended. Bowel sounds positive. EXTREMITIES: Left upper extremity palpable brachial pulse. Motor, sensory intact. Capillary refill 2 to 3 seconds. Surgical scars all well healed. Fistula with bruit and thrill present Right lower extremity palpable femoral pulse, palpable pedal pulse. Motor and sensory intact. Capillary refill 3 seconds Left lower extremity palpable femoral pulse, faint pedal pulse. Motor and sensory intact. Capillary refill 2 to 3 seconds Results Result Diagram: 07/22/16 0530 07/24/16 0506 JOE BARR MD Jul 24, 2016 13:33
--- NOTE | 2016-07-24 19:28 | CONS ---
Date/Time of Note Date/Time of Note DATE: 07/24/16 TIME: 19:28 Assessment/Plan Assessment/Plan Additional Assessment/Plan IMPRESSION: 1. Diarrhea. 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 Improved after Questran restarted. C. Diff negative.better 2. Diabetes mellitus. 3. Renal failure. 4. Coronary artery disease. 5. Hypertension. 6.pain lower extremity, Plan continue Questran vascular intervention as per vascular surgeon Consultation Date/Type/Reason Admit Date/Time Jul 11, 2016 at 12:19 Type of Consultation: Rheum 24 HR Interval Summary Free Text/Dictation LLE pain Exam/Review of Systems Vital Signs Vitals Vital Signs Date Time Temp Pulse Resp B/P Pulse Ox O2 Delivery O2 Flow Rate FiO2 07/24/16 17:37 87 144/76 07/24/16 11:00 16 07/24/16 07:56 97.4 95 07/22/16 08:00 Room Air Intake and Output 07/23/16 07/23/16 07/24/16 15:00 23:00 07:00 Intake Total 500 ml 1200 ml 600 ml Output Total 2500 ml 850 ml 400 ml Balance -2000 ml 350 ml 200 ml Exam Constitutional: alert, oriented, well developed Psych: nl mood/affect, no complaints Head: atraumatic, normocephalic Eyes: EOMI, PERRL, nl conjunctiva, nl lids, nl sclera ENMT: nl external ears & nose, nl lips & teeth, nl nasal mucosa & septum Neck: non-tender, supple Respiratory: clear to auscultation, normal air movement Cardiovascular: nl pulses, regular rate and rhythm Gastrointestinal: nl liver, spleen, non-tender, soft Musculoskeletal: nl extremities to inspection, nl gait and stance Extremities: normal pulses 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: CAN FEEDER II-XII intact, nl mental status, nl speech, nl strength Skin: nl turgor, No rash or lesions Lymph: nl lymph nodes Results Result Diagram: 07/22/16 0530 07/24/16 0506 Results 24 hrs Laboratory Tests Test 07/23/16 21:25 07/24/16 02:21 07/24/16 05:06 07/24/16 08:09 Bedside Glucose 200 87 218 Anion Gap 20 H Blood Urea Nitrogen 50 H Calcium Level 6.9 L Carbon Dioxide Level 27 Chloride Level 96 L Creatinine 5.01 H Glucose Level 113 # Potassium Level 5.9 H Sodium Level 137 Test 07/24/16 11:31 07/24/16 14:21 07/24/16 17:34 Bedside Glucose 163 141 111 Medications Medications Current Medications Hydromorphone HCl (Dilaudid) 1 mg Q3 PRN IV PAIN Last administered on 07/24/16 18:03; Admin Dose 1 MG; Start 07/09/16 at 17:00 Diphenhydramine HCl (Benadryl) 50 mg Q6H PRN IV ITCHING Last administered on 18:03; Admin Dose 50 MG; Start 07/09/16 at 17:00 Non-Formulary Medication (Non-Formulary Insulin) INSULIN PUMP see la... [id number] SC Last administered on 07/24/16 17:15; Admin Dose 1.5 UNIT; Start 07/09/16 at 19:45 Non-Formulary Medication (Non-Formulary Insulin) INSULIN PUMP see la... HS SC Last administered on 07/11/16 21:00; Admin Dose 2 UNIT; Start 07/09/16 at 21:00 Miscellaneous Information 1 ea NOTE XX ; Start 07/09/16 at 18:30 Glucose (Glutose) 15 gm Q15M PRN PO DECREASED GLUCOSE; Start 07/09/16 at 18:30 Glucose (Glutose) 22.5 gm Q15M PRN PO DECREASED GLUCOSE; Start 07/09/16 at 18: 30 Dextrose (D50w Syringe) 25 ml Q15M PRN IV DECREASED GLUCOSE Last administered on 07/22/16 18:29; Admin Dose 25 ML; Start 07/09/16 at 18:30 Dextrose (D50w Syringe) 50 ml Q15M PRN IV DECREASED GLUCOSE Last administered on 07/19/16 20:58; Admin Dose 50 ML; Start 07/09/16 at 18:30 Glucagon (Glucagen) 1 mg Q15M PRN IM DECREASED GLUCOSE; Start 07/09/16 at 18:30 Glucose (Glutose) 15 gm Q15M PRN BUCCAL DECREASED GLUCOSE; Start 07/09/16 at 18 :30 Aspirin (Halfprin) 81 mg DAILY PO Last administered on 07/24/16 09:05; Admin Dose 81 MG; Start 07/10/16 at 09:00 Atorvastatin Calcium (Lipitor) 80 mg QHS PO Last administered on 07/23/16 21:21 ; Admin Dose 80 MG; Start 07/10/16 at 21:00 Clonidine (Catapres) 0.1 mg Q6 PO Last administered on 07/24/16 18:04; Admin Dose 0.1 MG; Start 07/10/16 at 12:00 Isosorbide Mononitrate (Imdur) 60 mg DAILY PO Last administered on 07/22/16 08: 37; Admin Dose 60 MG; Start 07/10/16 at 10:00 Lactobacillus Acidoph/Bulgaricus (Floranex) 1 tab TID PO Last administered on 14:46; Admin Dose 1 TAB; Start 07/10/16 at 09:00 Metoprolol Succinate (Toprol Xl) 50 mg BID PO Last administered on 07/23/16 21: 22; Admin Dose 50 MG; Start 07/10/16 at 10:00 Prasugrel (Effient) 10 mg DAILY PO Last administered on 07/24/16 09:05; Admin Dose 10 MG; Start 07/10/16 at 10:30 Acetaminophen (Tylenol Tab) 500 mg Q4H PRN PO PAIN AND OR ELEVATED TEMP; Start 07/10/16 at 09:00 Vancomycin HCl (Vancomycin Oral Syringe) 125 mg Q6 PO Last administered on 18:03; Admin Dose 125 MG; Start 07/10/16 at 12:00 Cholestyramine Resin (Questran Light) 4 gm BID PO Last administered on 21:21; Admin Dose 4 GM; Start 07/11/16 at 09:00 Gabapentin (Neurontin) 600 mg TID PO Last administered on 07/24/16 14:46; Admin Dose 600 MG; Start 07/14/16 at 21:00 Pantoprazole (Protonix Tab) 40 mg DAILY@06 PO Last administered on 07/24/16 06: 02; Admin Dose 40 MG; Start 07/16/16 at 06:00 Ondansetron HCl (Zofran Inj) 4 mg Q4H PRN IV NAUSEA AND/OR VOMITING; Start 07/21 at 16:30 Calcitriol (Rocaltrol) 0.5 mcg DAILY PO ; Start 07/24/16 at 10:00 NIYAH REED MD Jul 24, 2016 19:28
[2016-07-24] MEDS: ATORVASTATIN 80 MG TAB PO SCH (21:01)
[2016-07-24] MEDS: DEXTROSE 50% 50 ML SYRINGE IV PRN (22:02)
[2016-07-25] VITALS (20 sets, daily range): BP systolic 114–156; BP diastolic 71–89; PULSE 62–88; RESP 17–18
[2016-07-25] MEDS: HYDROmorphONE 1 MG/ML SYG IV PRN ×8 (00:01→22:43)
[2016-07-25] MEDS: DIPHENHYDRAMINE 50 MG INJ IV PRN ×4 (00:01→19:49)
[2016-07-25] MEDS: VANCOMYCIN HCL 250 MG/5ML POSYG PO SCH ×4 (00:06→17:07)
[2016-07-25] MEDS: PANTOPRAZOLE (EC) 40 MG TAB PO SCH (06:05)
[2016-07-25 06:18] LABS: ADD SCAN DIFF NO
[2016-07-25 06:21] LABS: BASOPHIL # 0.1 10^3/ul (0.0-0.1); BASOPHILS % 0.8 % (0.0-2.0); EOSINOPHILS # 0.6 10^3/ul (0.0-0.5); EOSINOPHILS % 7.8 % (0.0-7.0); HEMATOCRIT 33.8 % (42.0-52.0); HEMOGLOBIN 10.7 g/dl (14.0-18.0); LYMPHOCYTES # 1.1 10^3/ul (0.8-2.9); LYMPHOCYTES % 15.8 % (15.0-51.0); MEAN CORPUSCULAR HEMOGLOBIN 30.2 pg (29.0-33.0); MEAN CORPUSCULAR HGB CONC 31.7 g/dl (32.0-37.0); MEAN CORPUSCULAR VOLUME 95.5 fl (82.0-101.0); MEAN PLATELET VOLUME 11.5 fl (7.4-10.4); MONOCYTE # 0.7 10^3/ul (0.3-0.9); MONOCYTES % 10.3 % (0.0-11.0); NEUTROPHIL # 4.7 10^3/ul (1.6-7.5); NEUTROPHILS % 65.2 % (39.0-77.0); PLATELET COUNT 206 10^3/UL (140-415); RED BLOOD COUNT 3.54 10^6/ul (4.70-6.10); RED CELL DISTRIBUTION WIDTH 14.9 % (11.5-14.5); WHITE BLOOD COUNT 7.2 10^3/ul (4.8-10.8)
[2016-07-25 07:05] LABS: POTASSIUM 5.4 mmol/L (3.5-5.1)
[2016-07-25 07:08] LABS: CREATININE 5.18 mg/dl (0.61-1.24)
[2016-07-25 07:09] LABS: CALCIUM 7.7 mg/dl (8.4-10.2); URIC ACID 4.5 mg/dl (3.1-7.9)
[2016-07-25] MEDS: CALCIUM ACETATE 667 MG CAP PO SCH ×3 (08:15→17:06)
[2016-07-25] MEDS: SEVELAMER 800 MG TAB PO SCH ×3 (08:15→17:06)
[2016-07-25] MEDS: ISOSORBIDE MONONITRATE(SR)60 MG TAB PO SCH (09:00)
[2016-07-25] MEDS: PRASUGREL HYDROCHLORIDE 10 MG TABLET PO SCH (09:00)
[2016-07-25] MEDS: CHOLESTYRAMINE (LIGHT) 4 GM PACKET PO SCH ×2 (09:00→21:00)
[2016-07-25] MEDS: CALCITRIOL 0.25 MCG CAP PO SCH (09:00)
[2016-07-25] MEDS: ASPIRIN (EC) 81 MG TAB PO SCH (09:00)
[2016-07-25] MEDS: METOPROLOL (XL) 50 MG TAB PO SCH ×2 (09:00→21:29)
[2016-07-25] MEDS: GABAPENTIN 300 MG CAP PO SCH ×3 (09:00→21:28)
[2016-07-25] MEDS: LACTOBACILLUS CHEW TAB PO SCH ×3 (09:00→21:28)
--- NOTE | 2016-07-25 09:28 | CONS ---
Date/Time of Note Date/Time of Note DATE: 07/25/16 TIME: 09:25 Assessment/Plan Assessment/Plan Chief Complaint/Hosp Course #1 end-stage renal disease, on maintenance hemodialysis Thursday.He is going to have hemodialysis today if it can scheduled before vascular procedure . #2 bilateral foot pain.He has a high grade stenosis in the L superfiscial femoral artery and other diffuse ASCVD , vascular W/U is in progress . He is scheduled to have an angioplasty and stent placement today on L leg . #3 anemia. H/H is stable #4 hyperkalemia . He is taking Veltassa for elevated K . I will increase the Veltassa to 16.8 gm a day .potassium seems to be coming under control . Problems: Consultation Date/Type/Reason Admit Date/Time Jul 11, 2016 at 12:19 Type of Consultation: nephrology 24 HR Interval Summary Constitutional: no complaints Exam/Review of Systems Vital Signs Vitals Vital Signs Date Time Temp Pulse Resp B/P Pulse Ox O2 Delivery O2 Flow Rate FiO2 07/25/16 07:49 97.9 67 18 154/79 96 07/22/16 08:00 Room Air Intake and Output 07/24/16 07/24/16 07/25/16 15:00 23:00 07:00 Intake Total 810 ml 700 ml Output Total 500 ml 500 ml Balance 310 ml 200 ml Exam Constitutional: alert, oriented, well developed Psych: nl mood/affect, no complaints Respiratory: clear to auscultation, normal air movement Cardiovascular: nl pulses, regular rate and rhythm Musculoskeletal: nl extremities to inspection Results Result Diagram: 07/25/16 0510 07/25/16 0510 Results 24 hrs Laboratory Tests Test 07/24/16 11:31 07/24/16 14:21 07/24/16 17:34 07/24/16 21:06 Bedside Glucose 163 141 111 60 L Test 07/24/16 21:53 07/24/16 22:10 07/24/16 22:53 07/25/16 05:10 Bedside Glucose 57 L 141 147 Anion Gap 21 H Basophils # 0.1 Basophils % 0.8 Blood Urea Nitrogen 47 H Calcium Level 7.7 L Carbon Dioxide Level 25 Chloride Level 97 Creatinine 5.18 H Eosinophils # 0.6 H Eosinophils % 7.8 H Glucose Level 160 Hematocrit 33.8 L Hemoglobin 10.7 L Lymphocytes # 1.1 Lymphocytes % 15.8 Magnesium Level 1.8 Mean Corpuscular Hemoglobin 30.2 Mean Corpuscular Hemoglobin Concent 31.7 L Mean Corpuscular Volume 95.5 Mean Platelet Volume 11.5 H Monocytes # 0.7 Monocytes % 10.3 Neutrophils # 4.7 Neutrophils % 65.2 Nucleated Red Blood Cells # 0.0 Nucleated Red Blood Cells % 0.0 Platelet Count 206 Potassium Level 5.4 H Red Blood Count 3.54 L Red Cell Distribution Width 14.9 H Sodium Level 138 Uric Acid 4.5 White Blood Count 7.2 Test 07/25/16 07:54 Bedside Glucose 163 Medications Medications Current Medications Hydromorphone HCl (Dilaudid) 1 mg Q3 PRN IV PAIN Last administered on 09:06; Admin Dose 1 MG; Start 07/09/16 at 17:00 Diphenhydramine HCl (Benadryl) 50 mg Q6H PRN IV ITCHING Last administered on 06:00; Admin Dose 50 MG; Start 07/09/16 at 17:00 Non-Formulary Medication (Non-Formulary Insulin) INSULIN PUMP see la... [id number] SC Last administered on 07/24/16 17:15; Admin Dose 1.5 UNIT; Start 07/09/16 at 19:45 Non-Formulary Medication (Non-Formulary Insulin) INSULIN PUMP see la... HS SC Last administered on 07/11/16 21:00; Admin Dose 2 UNIT; Start 07/09/16 at 21:00 Miscellaneous Information 1 ea NOTE XX ; Start 07/09/16 at 18:30 Glucose (Glutose) 15 gm Q15M PRN PO DECREASED GLUCOSE; Start 07/09/16 at 18:30 Glucose (Glutose) 22.5 gm Q15M PRN PO DECREASED GLUCOSE; Start 07/09/16 at 18: 30 Dextrose (D50w Syringe) 25 ml Q15M PRN IV DECREASED GLUCOSE Last administered on 07/24/16 22:02; Admin Dose 25 ML; Start 07/09/16 at 18:30 Dextrose (D50w Syringe) 50 ml Q15M PRN IV DECREASED GLUCOSE Last administered on 07/19/16 20:58; Admin Dose 50 ML; Start 07/09/16 at 18:30 Glucagon (Glucagen) 1 mg Q15M PRN IM DECREASED GLUCOSE; Start 07/09/16 at 18:30 Glucose (Glutose) 15 gm Q15M PRN BUCCAL DECREASED GLUCOSE; Start 07/09/16 at 18 :30 Aspirin (Halfprin) 81 mg DAILY PO Last administered on 07/24/16 09:05; Admin Dose 81 MG; Start 07/10/16 at 09:00 Atorvastatin Calcium (Lipitor) 80 mg QHS PO Last administered on 07/24/16 21:01 ; Admin Dose 80 MG; Start 07/10/16 at 21:00 Clonidine (Catapres) 0.1 mg Q6 PO Last administered on 07/25/16 06:06; Admin Dose 0.1 MG; Start 07/10/16 at 12:00 Isosorbide Mononitrate (Imdur) 60 mg DAILY PO Last administered on 07/22/16 08: 37; Admin Dose 60 MG; Start 07/10/16 at 10:00 Lactobacillus Acidoph/Bulgaricus (Floranex) 1 tab TID PO Last administered on 21:01; Admin Dose 1 TAB; Start 07/10/16 at 09:00 Metoprolol Succinate (Toprol Xl) 50 mg BID PO Last administered on 07/24/16 21: 02; Admin Dose 50 MG; Start 07/10/16 at 10:00 Prasugrel (Effient) 10 mg DAILY PO Last administered on 07/24/16 09:05; Admin Dose 10 MG; Start 07/10/16 at 10:30 Acetaminophen (Tylenol Tab) 500 mg Q4H PRN PO PAIN AND OR ELEVATED TEMP; Start 07/10/16 at 09:00 Vancomycin HCl (Vancomycin Oral Syringe) 125 mg Q6 PO Last administered on 07/25 06:06; Admin Dose 125 MG; Start 07/10/16 at 12:00 Cholestyramine Resin (Questran Light) 4 gm BID PO Last administered on 21:01; Admin Dose 4 GM; Start 07/11/16 at 09:00 Gabapentin (Neurontin) 600 mg TID PO Last administered on 07/24/16 21:01; Admin Dose 600 MG; Start 07/14/16 at 21:00 Pantoprazole (Protonix Tab) 40 mg DAILY@06 PO Last administered on 07/25/16t 06 :05; Admin Dose 40 MG; Start 07/16/16 at 06:00 Ondansetron HCl (Zofran Inj) 4 mg Q4H PRN IV NAUSEA AND/OR VOMITING; Start 07/21 at 16:30 Calcitriol (Rocaltrol) 0.5 mcg DAILY PO ; Start 07/24/16 at 10:00 DONY HOWARD MD Jul 25, 2016 09:27
--- NOTE | 2016-07-25 10:56 | PN ---
ANGELINA CASTREJON 07/25/16 1056: Date/Time of Note Date/Time of Note DATE: 07/25/16 TIME: 10:56 Assessment/Plan VTE Prophylaxis VTE Prophylaxis Intervention: SCD's Lines/Catheters IV [facility] SUZANNE CATH Urinary Cath still in place: No Assessment/Plan Chief Complaint/Hosp Course ASSESSMENT AND PLAN: 1. Diarrhea with recent history of Clostridium difficile colitis, resolved. Continue patient on vancomycin and Questran. Dr. Gomez is following in gastroenterology consultation 2. Dehydration secondary to diarrhea with recent history of Clostridium difficile colitis. Stool for C. difficile is negative. 3. Type 1 diabetes mellitus with diabetic nephropathy. Continue NovoLog per insulin pump. 4. End-stage renal disease, hemodialysis dependent. Dr. Hubbard is following the patient in nephrology consultation. Continue dialysis per nephrology. 5. Coronary artery disease. Continue Imdur and metoprolol. 6. Hypertension. 7. Bilateral lower extremities pain. Dr. Orosco is following and rheumatology consultation. 8. Lateral lower extremities atherosclerosis. is following in vascular surgery consultation. S/P angio with LLE SFA severe stenosis. Plan for vascular intervention today. Continue heparin for deep venous thrombosis prophylaxis and Pepcid for peptic ulcer disease prophylaxis. Further recommendations based on clinical course. Plan of care discussed with Dr. Rosales. Problems: Subjective 24 Hr Interval Summary Free Text/Dictation Patient denies any nausea vomiting, stable, pending dialysis and vascular surgery today. Exam/Review of Systems Vital Signs Vitals Vital Signs Date Time Temp Pulse Resp B/P Pulse Ox O2 Delivery O2 Flow Rate FiO2 07/25/16 07:49 97.9 67 18 154/79 96 07/22/16 08:00 Room Air Intake and Output 07/24/16 07/24/16 07/25/16 15:00 23:00 07:00 Intake Total 810 ml 700 ml Output Total 500 ml 500 ml Balance 310 ml 200 ml Exam GENERAL: Well-developed, well-nourished male, currently appears pale, awake, alert. HEENT: The patient has right eye prosthesis. Left pupil is equal, round, reactive to light and accommodation. NECK: Supple. No cervical lymphadenopathy, no thyromegaly. CHEST: Lungs clear bilaterally. There are no rhonchi, wheezes, rales noted. CARDIOVASCULAR: Normal S1, S2. No murmurs, gallops, clicks, rubs noted. ABDOMEN: Flat, soft, nondistended. The patient has generalized tenderness to epigastric tenderness on palpation. No guarding. EXTREMITIES: No edema, clubbing, cyanosis. Left upper extremity AV graft with a palpable thrill and audible bruit. SKIN: No rash, petechiae noted. NEUROLOGIC: The patient is awake, alert, and oriented x3. Results Result Diagram: 07/25/16 0510 07/25/16 0510 Results 24 hrs Laboratory Tests Test 07/24/16 11:31 07/24/16 14:21 07/24/16 17:34 07/24/16 21:06 Bedside Glucose 163 141 111 60 L Test 07/24/16 21:53 07/24/16 22:10 07/24/16 22:53 07/25/16 05:10 Bedside Glucose 57 L 141 147 Anion Gap 21 H Basophils # 0.1 Basophils % 0.8 Blood Urea Nitrogen 47 H Calcium Level 7.7 L Carbon Dioxide Level 25 Chloride Level 97 Creatinine 5.18 H Eosinophils # 0.6 H Eosinophils % 7.8 H Glucose Level 160 Hematocrit 33.8 L Hemoglobin 10.7 L Lymphocytes # 1.1 Lymphocytes % 15.8 Magnesium Level 1.8 Mean Corpuscular Hemoglobin 30.2 Mean Corpuscular Hemoglobin Concent 31.7 L Mean Corpuscular Volume 95.5 Mean Platelet Volume 11.5 H Monocytes # 0.7 Monocytes % 10.3 Neutrophils # 4.7 Neutrophils % 65.2 Nucleated Red Blood Cells # 0.0 Nucleated Red Blood Cells % 0.0 Platelet Count 206 Potassium Level 5.4 H Red Blood Count 3.54 L Red Cell Distribution Width 14.9 H Sodium Level 138 Uric Acid 4.5 White Blood Count 7.2 Test 07/25/16 07:54 Bedside Glucose 163 Medications Medications Current Medications Hydromorphone HCl (Dilaudid) 1 mg Q3 PRN IV PAIN Last administered on 09:06; Admin Dose 1 MG; Start 07/09/16 at 17:00 Diphenhydramine HCl (Benadryl) 50 mg Q6H PRN IV ITCHING Last administered on 06:00; Admin Dose 50 MG; Start 07/09/16 at 17:00 Non-Formulary Medication (Non-Formulary Insulin) INSULIN PUMP see la... [id number] SC Last administered on 07/24/16 17:15; Admin Dose 1.5 UNIT; Start 07/09/16 at 19:45 Non-Formulary Medication (Non-Formulary Insulin) INSULIN PUMP see la... HS SC Last administered on 07/11/16 21:00; Admin Dose 2 UNIT; Start 07/09/16 at 21:00 Miscellaneous Information 1 ea NOTE XX ; Start 07/09/16 at 18:30 Glucose (Glutose) 15 gm Q15M PRN PO DECREASED GLUCOSE; Start 07/09/16 at 18:30 Glucose (Glutose) 22.5 gm Q15M PRN PO DECREASED GLUCOSE; Start 07/09/16 at 18: 30 Dextrose (D50w Syringe) 25 ml Q15M PRN IV DECREASED GLUCOSE Last administered on 07/24/16 22:02; Admin Dose 25 ML; Start 07/09/16 at 18:30 Dextrose (D50w Syringe) 50 ml Q15M PRN IV DECREASED GLUCOSE Last administered on 07/19/16 20:58; Admin Dose 50 ML; Start 07/09/16 at 18:30 Glucagon (Glucagen) 1 mg Q15M PRN IM DECREASED GLUCOSE; Start 07/09/16 at 18:30 Glucose (Glutose) 15 gm Q15M PRN BUCCAL DECREASED GLUCOSE; Start 07/09/16 at 18 :30 Aspirin (Halfprin) 81 mg DAILY PO Last administered on 07/24/16 09:05; Admin Dose 81 MG; Start 07/10/16 at 09:00 Atorvastatin Calcium (Lipitor) 80 mg QHS PO Last administered on 07/24/16 21:01 ; Admin Dose 80 MG; Start 07/10/16 at 21:00 Clonidine (Catapres) 0.1 mg Q6 PO Last administered on 07/25/16 06:06; Admin Dose 0.1 MG; Start 07/10/16 at 12:00 Isosorbide Mononitrate (Imdur) 60 mg DAILY PO Last administered on 07/22/16 08: 37; Admin Dose 60 MG; Start 07/10/16 at 10:00 Lactobacillus Acidoph/Bulgaricus (Floranex) 1 tab TID PO Last administered on 21:01; Admin Dose 1 TAB; Start 07/10/16 at 09:00 Metoprolol Succinate (Toprol Xl) 50 mg BID PO Last administered on 07/24/16 21: 02; Admin Dose 50 MG; Start 07/10/16 at 10:00 Prasugrel (Effient) 10 mg DAILY PO Last administered on 07/24/16 09:05; Admin Dose 10 MG; Start 07/10/16 at 10:30 Acetaminophen (Tylenol Tab) 500 mg Q4H PRN PO PAIN AND OR ELEVATED TEMP; Start 07/10/16 at 09:00 Vancomycin HCl (Vancomycin Oral Syringe) 125 mg Q6 PO Last administered on 07/25 06:06; Admin Dose 125 MG; Start 07/10/16 at 12:00 Cholestyramine Resin (Questran Light) 4 gm BID PO Last administered on 21:01; Admin Dose 4 GM; Start 07/11/16 at 09:00 Gabapentin (Neurontin) 600 mg TID PO Last administered on 07/24/16 21:01; Admin Dose 600 MG; Start 07/14/16 at 21:00 Pantoprazole (Protonix Tab) 40 mg DAILY@06 PO Last administered on 07/25/16 06 :05; Admin Dose 40 MG; Start 07/16/16 at 06:00 Ondansetron HCl (Zofran Inj) 4 mg Q4H PRN IV NAUSEA AND/OR VOMITING; Start 07/21 at 16:30 Calcitriol (Rocaltrol) 0.5 mcg DAILY PO ; Start 07/24/16 at 10:00 PEDRO BENSON 07/26/16 0756: Assessment/Plan Assessment/Plan Assessment/Plan 1. Diarrhea with recent history of Clostridium difficile colitis, resolved. Continue patient on vancomycin and Questran. Dr. Gomez is following in gastroenterology consultation 2. Dehydration secondary to diarrhea with recent history of Clostridium difficile colitis. Stool for C. difficile is negative. 3. Type 1 diabetes mellitus with diabetic nephropathy. Continue NovoLog per insulin pump. 4. End-stage renal disease, hemodialysis dependent. Dr. Hubbard is following the patient in nephrology consultation. Continue dialysis per nephrology. 5. Coronary artery disease. Continue Imdur and metoprolol. 6. Hypertension. 7. Bilateral lower extremities pain. Dr. Orosco is following and rheumatology consultation. 8. Lateral lower extremities atherosclerosis. is following in vascular surgery consultation. S/P angio with LLE SFA severe stenosis. Plan for vascular intervention today. Continue heparin for deep venous thrombosis prophylaxis and Pepcid for peptic ulcer disease prophylaxis. Further recommendations based on clinical course. Plan of care discussed with Dr. Rosales. Subjective 24 Hr Interval Summary ENT: no complaints Respiratory: no complaints Cardiovascular: no complaints Gastrointestinal: no complaints Genitourinary: no complaints Musculoskeletal: no complaints Skin: other Neurologic: no complaints Exam/Review of Systems Exam Constitutional: alert, well developed Psych: nl mood/affect Eyes: PERRL, nl sclera Neck: non-tender Respiratory: clear to auscultation Cardiovascular: nl pulses Gastrointestinal: non-tender, soft Musculoskeletal: other Lymph: nontender Results Result Diagram: 07/25/16 0510 07/25/16 0510 ANGELINA CASTREJON Jul 25, 2016 10:56 PEDRO BENSON Jul 26, 2016 07:56
[2016-07-25] MEDS: LORAZEPAM 2 MG INJ IV SCH (11:18)
[2016-07-25] MEDS: DIPHENHYDRAMINE 50 MG INJ IV SCH (11:18)
[2016-07-25] MEDS: PATIROMER CALCIUM SORBITEX 8.4 GM PKT PO SCH (12:15)
[2016-07-25] MEDS ORDERED: LIDOCAINE 1% (MDV) 20 ML INJ ONE (14:03)
[2016-07-25] MEDS ORDERED: HEPARIN 1000 UNITS/NS (A-LINE) 1,000 ML ONE (14:03)
[2016-07-25] MEDS ORDERED: IODIXANOL LOCM 100 ML BTL ONE (14:03)
[2016-07-25] MEDS ORDERED: FENTAnyl 50 MCG/ML VIAL ONE ×2 (14:04→14:43)
[2016-07-25] MEDS ORDERED: MIDAZOLAM 1 MG/ML 2 ML INJ ONE ×2 (14:04→14:43)
[2016-07-25] MEDS ORDERED: DIPHENHYDRAMINE 50 MG INJ ONE (14:34)
--- NOTE | 2016-07-25 15:49 | CONS ---
Date/Time of Note Date/Time of Note DATE: 07/25/16 TIME: 15:48 Assessment/Plan Assessment/Plan Additional Assessment/Plan IMPRESSION: 1. Diarrhea. 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 Improved after Questran restarted. C. Diff negative.better 2. Diabetes mellitus. 3. Renal failure. 4. Coronary artery disease. 5. Hypertension. 6.pain lower extremity, Plan continue Questran vascular intervention as per vascular surgeon,today Consultation Date/Type/Reason Admit Date/Time Jul 11, 2016 at 12:19 Type of Consultation: nephrology 24 HR Interval Summary Constitutional: improved, no complaints Exam/Review of Systems Vital Signs Vitals Vital Signs Date Time Temp Pulse Resp B/P Pulse Ox O2 Delivery O2 Flow Rate FiO2 07/25/16 12:55 65 16 07/25/16 07:49 97.9 154/79 96 07/22/16 08:00 Room Air Intake and Output 07/24/16 07/24/16 07/25/16 15:00 23:00 07:00 Intake Total 810 ml 700 ml Output Total 500 ml 500 ml Balance 310 ml 200 ml Exam Constitutional: alert, oriented, well developed Psych: nl mood/affect, no complaints Head: atraumatic, normocephalic Eyes: EOMI, PERRL, nl conjunctiva, nl lids, nl sclera ENMT: nl external ears & nose, nl lips & teeth, nl nasal mucosa & septum Neck: non-tender, supple Respiratory: clear to auscultation, normal air movement Cardiovascular: nl pulses, regular rate and rhythm Gastrointestinal: nl liver, spleen, non-tender, soft Musculoskeletal: nl extremities to inspection, nl gait and stance Extremities: normal pulses 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: DYNO TECHNICIAN II-XII intact, nl mental status, nl speech, nl strength Skin: nl turgor, No rash or lesions Lymph: nl lymph nodes Results Result Diagram: 07/25/16 0510 07/25/16 0510 Results 24 hrs Laboratory Tests Test 07/24/16 17:34 07/24/16 21:06 07/24/16 21:53 07/24/16 22:10 Bedside Glucose 111 60 L 57 L 141 Test 07/24/16 22:53 07/25/16 05:10 07/25/16 07:54 07/25/16 11:45 Bedside Glucose 147 163 152 Anion Gap 21 H Basophils # 0.1 Basophils % 0.8 Blood Urea Nitrogen 47 H Calcium Level 7.7 L Carbon Dioxide Level 25 Chloride Level 97 Creatinine 5.18 H Eosinophils # 0.6 H Eosinophils % 7.8 H Glucose Level 160 Hematocrit 33.8 L Hemoglobin 10.7 L Lymphocytes # 1.1 Lymphocytes % 15.8 Magnesium Level 1.8 Mean Corpuscular Hemoglobin 30.2 Mean Corpuscular Hemoglobin Concent 31.7 L Mean Corpuscular Volume 95.5 Mean Platelet Volume 11.5 H Monocytes # 0.7 Monocytes % 10.3 Neutrophils # 4.7 Neutrophils % 65.2 Nucleated Red Blood Cells # 0.0 Nucleated Red Blood Cells % 0.0 Platelet Count 206 Potassium Level 5.4 H Red Blood Count 3.54 L Red Cell Distribution Width 14.9 H Sodium Level 138 Uric Acid 4.5 White Blood Count 7.2 Medications Medications Current Medications Hydromorphone HCl (Dilaudid) 1 mg Q3 PRN IV PAIN Last administered on 12:06; Admin Dose 1 MG; Start 07/09/16 at 17:00 Diphenhydramine HCl (Benadryl) 50 mg Q6H PRN IV ITCHING Last administered on 12:06; Admin Dose 50 MG; Start 07/09/16 at 17:00 Non-Formulary Medication (Non-Formulary Insulin) INSULIN PUMP see la... [id number] Last administered on 07/24/16 17:15; Admin Dose 1.5 UNIT; Start 07/09/16 at 19:45 Non-Formulary Medication (Non-Formulary Insulin) INSULIN PUMP see la... HS SC Last administered on 07/11/16 21:00; Admin Dose 2 UNIT; Start 07/09/16 at 21:00 Miscellaneous Information 1 ea NOTE XX ; Start 07/09/16 at 18:30 Glucose (Glutose) 15 gm Q15M PRN PO DECREASED GLUCOSE; Start 07/09/16 at 18:30 Glucose (Glutose) 22.5 gm Q15M PRN PO DECREASED GLUCOSE; Start 07/09/16 at 18: 30 Dextrose (D50w Syringe) 25 ml Q15M PRN IV DECREASED GLUCOSE Last administered on 07/24/16 22:02; Admin Dose 25 ML; Start 07/09/16 at 18:30 Dextrose (D50w Syringe) 50 ml Q15M PRN IV DECREASED GLUCOSE Last administered on 07/19/16 20:58; Admin Dose 50 ML; Start 07/09/16 at 18:30 Glucagon (Glucagen) 1 mg Q15M PRN IM DECREASED GLUCOSE; Start 07/09/16 at 18:30 Glucose (Glutose) 15 gm Q15M PRN BUCCAL DECREASED GLUCOSE; Start 07/09/16 at 18 :30 Aspirin (Halfprin) 81 mg DAILY PO Last administered on 07/24/16 09:05; Admin Dose 81 MG; Start 07/10/16 at 09:00 Atorvastatin Calcium (Lipitor) 80 mg QHS PO Last administered on 07/24/16 21:01 ; Admin Dose 80 MG; Start 07/10/16 at 21:00 Clonidine (Catapres) 0.1 mg Q6 PO Last administered on 07/25/16 06:06; Admin Dose 0.1 MG; Start 07/10/16 at 12:00 Isosorbide Mononitrate (Imdur) 60 mg DAILY PO Last administered on 07/22/16 08: 37; Admin Dose 60 MG; Start 07/10/16 at 10:00 Lactobacillus Acidoph/Bulgaricus (Floranex) 1 tab TID PO Last administered on 21:01; Admin Dose 1 TAB; Start 07/10/16 at 09:00 Metoprolol Succinate (Toprol Xl) 50 mg BID PO Last administered on 07/24/16 21: 02; Admin Dose 50 MG; Start 07/10/16 at 10:00 Prasugrel (Effient) 10 mg DAILY PO Last administered on 07/24/16 09:05; Admin Dose 10 MG; Start 07/10/16 at 10:30 Acetaminophen (Tylenol Tab) 500 mg Q4H PRN PO PAIN AND OR ELEVATED TEMP; Start 07/10/16 at 09:00 Vancomycin HCl (Vancomycin Oral Syringe) 125 mg Q6 PO Last administered on 07/25 06:06; Admin Dose 125 MG; Start 07/10/16 at 12:00 Cholestyramine Resin (Questran Light) 4 gm BID PO Last administered on 21:01; Admin Dose 4 GM; Start 07/11/16 at 09:00 Gabapentin (Neurontin) 600 mg TID PO Last administered on 07/24/16 21:01; Admin Dose 600 MG; Start 07/14/16 at 21:00 Pantoprazole (Protonix Tab) 40 mg DAILY@06 PO Last administered on 07/25/16 06 :05; Admin Dose 40 MG; Start 07/16/16 at 06:00 Ondansetron HCl (Zofran Inj) 4 mg Q4H PRN IV NAUSEA AND/OR VOMITING; Start 07/21 at 16:30 Calcitriol (Rocaltrol) 0.5 mcg DAILY PO ; Start 07/24/16 at 10:00 NIYAH REED MD Jul 25, 2016 15:49
[2016-07-25] MEDS ORDERED: ONDANSETRON 4 MG INJ IV PRN (16:00)
--- NOTE | 2016-07-25 16:40 | OPR ---
DATE OF OPERATION: 07/25/2016 SURGEON: Anthony Byrnes MD FLUOROSCOPY DE [place] ROSA: Romain Lozano DPM PREOPERATIVE DIAGNOSIS: Left lower extremity disabling claudication. POSTOPERATIVE DIAGNOSIS: Left lower extremity disabling claudication. ANESTHESIA: Local with sedation. ESTIMATED BLOOD LOSS: Minimal. COMPLICATIONS: None. HEPARIN: 5000 units intravenously. CONTRAST: As recorded. ACCESS: Right common femoral artery, 6-[place] Destination sheath. CLOSURE: Manual compression and Angio-Seal closure device. INDICATIONS: This is a 50-year-old gentleman who had presented with history of left lower extremity disabling claudication and right lower extremity intermittent claudication. DESCRIPTION OF PROCEDURE: The patient had undergone noninvasive vascular studies that identified st enosis throughout with infrainguinal atherosclerotic disease. Subsequently, he had an angiogram and identified a superficial femoral artery disease with an area of significant stenosis requiring inte rvention. The patient had been informed of the alternatives, risk, and benefits of angiogram, ballo on angioplasty, stenting, and atherectomy. The risks including but not limited to bleeding, thrombo sis, embolization, myocardial infarction, , device malfunction, infection, nephrotoxicity, stro ke, and the patient has agreed to proceed. PROCEDURE: 1. Ultrasound-guided access of the right common femoral artery. 2. Third order selection of the left common femoral artery. 3. Left lower extremity angiogram. 4. Atherectomy of the left femoral popliteal artery. 5. Left femoral popliteal artery balloon angioplasty with drug-coated balloon measuring 6 mm x 150 cm. 6. Left femoral popliteal stenting with drug-eluting stent, Cook, measuring 6 x 100 cm and 6 mm x 8 0 cm. FINDINGS: Post-intervention, the patient had inline flow without any areas of stenosis or flow limi ting disease to the infrapopliteal region. DESCRIPTION OF PROCEDURE: The patient was brought into the angio suite and positioned in supine pos ition on the fluoroscopic table. Sedation was administered without complication. Bilateral groins were shaved, prepped, and draped in the usual standard sterile fashion. A timeout, and the appropri ate site was marked and confirmed. Local anesthesia with infiltrated in the region of the right com mon femoral artery. Using ultrasound-guided access with the micropuncture needle, the right common femoral artery was cannulated under ultrasound guidance. The wire was then passed into the common i liac artery under fluoroscopic guidance. A Bentson wire was then passed into the infrarenal aorta u nder fluoroscopic guidance followed by a short 5-[place] sheath over the wire. The sheath was then a ppropriately flushed with heparinized saline solution. Omni flush catheter was then passed and used to select the left common femoral artery in a third order selection. At this point, a Bentson wire was exchanged for a stiff Glidewire. Stiff Glidewire was then used to selective the left superfici al femoral artery. At this point, we exchanged the 5-[place] sheath catheter for a 6-[place] Destinat ion sheath. Once destination sheath was placed, intravenous Heparin 5000 units of heparin was given . ACT was checked and was adequate. At this point, using a guiding Navicross catheter, we went ahe ad and were able to place our catheter in the above knee popliteal artery. At this point, a stiff G lidewire was removed and an 0.014 sparticle wire was placed. Once this was accomplished, we went ah ead and used the TurboHawk atherectomy device to perform atherectomy of the femoral popliteal region . Following this, we went ahead and used a drug-coated balloon, Lutonix 6 mm x 150 cm was performed . Post-intervention, it was identified that the patient's distal most aspect of our intervention st ill had an area of unstable plaque; therefore, decision was made to place a drug-eluting stent and a lso to cover the area where we were not able to fully dilate the vessel. At this point, we used the Cook Zilver stent measuring 6 mm x 100 cm and 6 x 80 cm in order to cover the entire area. This wa s then performed and completion angiogram identified inline flow without any flow limitations or are as of residual stenosis. We further performed angiogram of our tibial vessels. The patient had mario ropriate inflow into the trifurcation all the way down to the foot. The patient tolerated this part of the procedure well. All catheters, sheaths, and wires were removed from the right common femora l artery. At this point, we used an Angio-Seal closure device, and it was deployed in the groin. A dequate hemostasis was identified. The patient was taken to postanesthesia care unit in stable cond ition. All instrument, sponge, and needle counts were correct x2. Dictated By: ANTHONY BLISS/SERGO Conf#: [id number] DID#: [id number]
[2016-07-25] MEDS: DEXTROSE 50% 50 ML SYRINGE IV PRN (17:08)
[2016-07-25] MEDS ORDERED: HYDROmorphONE 1 MG/ML SYG IV STA (17:38)
[2016-07-25] MEDS: ATORVASTATIN 80 MG TAB PO SCH (21:28)
[2016-07-26] VITALS (33 sets, daily range): BP systolic 89–166; BP diastolic 64–98; PULSE 78–98; RESP 12–22
[2016-07-26] MEDS: VANCOMYCIN HCL 250 MG/5ML POSYG PO SCH ×2 (00:28→07:41)
[2016-07-26] MEDS: HYDROmorphONE 1 MG/ML SYG IV PRN (01:44)
[2016-07-26] MEDS: DIPHENHYDRAMINE 50 MG INJ IV PRN ×3 (01:51→22:37)
[2016-07-26] MEDS ORDERED: HYDROmorphONE 2 MG/ML SYG IV ONE (04:19)
[2016-07-26 06:14] LABS: ADD SCAN DIFF NO
[2016-07-26 06:32] LABS: ALBUMIN 3.5 g/dl (3.3-4.9); POTASSIUM 5.5 mmol/L (3.5-5.1)
[2016-07-26 06:34] LABS: CREATININE 5.67 mg/dl (0.61-1.24)
[2016-07-26 06:35] LABS: ALBUMIN/GLOBULIN RATIO 1.29; BILIRUBIN,INDIRECT 0.2 mg/dl (0-1.1); BILIRUBIN,TOTAL 0.2 mg/dl (0.2-1.3); CALCIUM 7.1 mg/dl (8.4-10.2); TOTAL PROTEIN 6.2 g/dl (6.1-8.1)
[2016-07-26 06:36] LABS: BASOPHIL # 0.1 10^3/ul (0.0-0.1); BASOPHILS % 0.8 % (0.0-2.0); EOSINOPHILS # 0.5 10^3/ul (0.0-0.5); EOSINOPHILS % 6.6 % (0.0-7.0); HEMATOCRIT 32.1 % (42.0-52.0); HEMOGLOBIN 10.2 g/dl (14.0-18.0); LYMPHOCYTES # 0.8 10^3/ul (0.8-2.9); LYMPHOCYTES % 10.7 % (15.0-51.0); MEAN CORPUSCULAR HGB CONC 31.8 g/dl (32.0-37.0); MEAN CORPUSCULAR VOLUME 94.4 fl (82.0-101.0); MEAN PLATELET VOLUME 11.7 fl (7.4-10.4); MONOCYTE # 0.7 10^3/ul (0.3-0.9); MONOCYTES % 8.8 % (0.0-11.0); NEUTROPHIL # 5.4 10^3/ul (1.6-7.5); NEUTROPHILS % 72.7 % (39.0-77.0); PLATELET COUNT 212 10^3/UL (140-415); WHITE BLOOD COUNT 7.5 10^3/ul (4.8-10.8)
[2016-07-26] MEDS ORDERED: HYDROmorphONE 2 MG/ML SYG IV STA (07:02)
--- NOTE | 2016-07-26 07:20 | PN ---
Date/Time of Note Date/Time of Note DATE: 07/26/16 TIME: 07:19 Assessment/Plan Lines/Catheters IV Catheter Type (from [facility]): port a cath Foster in Place (from [facility]): No Assessment/Plan Chief Complaint/Hosp Course -End-stage renal disease: It seems that the patient's left upper extremity fistula is functioning well. Recommend continue with his hemodialysis sessions via the fistula. Patient also had his recent Perm-A-Cath removed. From a vascular standpoint, we will continue his fistula surveillance as an outpatient. -Bilateral lower extremity atherosclerosis: S/P angio with LLE SFA severe stenosis. S/P LLE Atherectomy, Stenting and angioplasty -Patient had complain of Right groin discomfort and upon U/S of Right ADOBE FLEX DEVELOPER there was suggestion of pseudoaneurysm. It was recommended to apply pressure over the neck of the pseudo and upon re-evaluation no pseudo was identified. Will apply sand bag for now and obtain CT Angiogram to identify for any other suggestions. -Right CFV DVT likely developed post angiogram manual compression. Will plan to treat and will discuss with primary service for PO regimen -Recommend ICU monitoring for observation -Optimize vascular status (BP meds, diet, nutrition, exercise, sugar control, antiplatelets). -Discussed findings with plan and management with the patient and he understands. -Thank you for allowing us to partake in the care of your patient. Please call with any questions. Problems: Subjective 24 Hr Interval Summary pt complain of right groin pain and swelling, ultrasound ordered early this morning and suggestion of possible right ADOBE FLEX DEVELOPER pseudoaneurysm Exam/Review of Systems Vital Signs Vitals Vital Signs Date Time Temp Pulse Resp B/P Pulse Ox O2 Delivery O2 Flow Rate FiO2 07/26/16 05:45 78 18 138/73 97 Room Air 07/25/16 21:29 98.1 07/25/16 16:19 2.0 Intake and Output 07/25/16 07/25/16 07/26/16 15:00 23:00 07:00 Intake Total 300 ml 720 ml 700 ml Output Total 2300 ml Balance -2000 ml 720 ml 700 ml Exam Free Text/Dictation GENERAL: Alert and oriented x3. PULMONARY: Clear to auscultation bilaterally. CARDIOVASCULAR: S1, S2 present. ABDOMEN: Soft, nontender, nondistended. Bowel sounds positive. EXTREMITIES: Left upper extremity palpable brachial pulse. Motor, sensory intact. Capillary refill 2 to 3 seconds. Surgical scars all well healed. Fistula with bruit and thrill present Right lower extremity palpable femoral pulse, palpable pedal pulse. Motor and sensory intact. Capillary refill 3 seconds, groin tenderness upon palpation, some ecchymosis, no pulsatile mass, soft except a focal area with slight swelling Left lower extremity palpable femoral pulse, palpable pedal pulse. Motor and sensory intact. Capillary refill 2 to 3 seconds Results Result Diagram: 07/26/16 0454 07/26/16 0455 JOE BARR MD Jul 26, 2016 07:20
[2016-07-26] MEDS: PANTOPRAZOLE (EC) 40 MG TAB PO SCH (07:41)
[2016-07-26] MEDS: CHOLESTYRAMINE (LIGHT) 4 GM PACKET PO SCH ×2 (08:55→20:50)
[2016-07-26] MEDS: CALCITRIOL 0.25 MCG CAP PO SCH (08:55)
[2016-07-26] MEDS: ASPIRIN (EC) 81 MG TAB PO SCH (08:56)
[2016-07-26] MEDS: PRASUGREL HYDROCHLORIDE 10 MG TABLET PO SCH (08:56)
[2016-07-26] MEDS: SEVELAMER 800 MG TAB PO SCH ×3 (08:56→18:53)
[2016-07-26] MEDS: CALCIUM ACETATE 667 MG CAP PO SCH ×3 (08:56→18:53)
[2016-07-26] MEDS: LACTOBACILLUS CHEW TAB PO SCH ×3 (08:56→20:50)
[2016-07-26] MEDS: GABAPENTIN 300 MG CAP PO SCH ×3 (08:56→20:50)
[2016-07-26] MEDS: METOPROLOL (XL) 50 MG TAB PO SCH ×2 (08:57→22:18)
[2016-07-26] MEDS: ISOSORBIDE MONONITRATE(SR)60 MG TAB PO SCH (08:57)
[2016-07-26] MEDS ORDERED: SOD CHLORIDE 0.9% 100 ML ONE (09:42)
[2016-07-26] MEDS ORDERED: IOHEXOL 100 ML ONE (09:42)
[2016-07-26] MEDS ORDERED: IOHEXOL 350MG/ML 50 ML BTL ONE (09:42)
[2016-07-26] MEDS: HYDROmorphONE 2 MG/ML SYG IV PRN ×3 (11:08→20:55)
--- NOTE | 2016-07-26 11:14 | RADRPT ---
PROCEDURE: CT angiogram of the aorta and bilateral runoff. CLINICAL INDICATION: Right leg pain, pseudoaneurysm TECHNIQUE: CT angiogram of the abdomen and pelvis with bilateral runoff was performed on the multi slice CT scanner . The patient was scanned after administration of 120 cc of Isovue 370 intravenous contrast. Oral contrast was not administered. 3-D, sagittal and coronal reformatted images were o btained from the axial source images. One or more of the following post reduction techniques were used: - Automated exposure control. - Adjustment of the mA and/or Kv according to patient's size. - Use of iterative reconstruction technique DLP 846 mGycm. CTDI vol 35.21 mGy COMPARISON: 07/14/2016 FINDINGS: CTA Aorta: The abdominal aorta is normal in caliber with no evidence of aneurysmal dilatation or aortic dissect ion. The celiac artery, SMA and PAOLA origins are widely patent with no focal stenosis. Again seen is focal stenosis at the origin of the splenic artery. There is focal stenosis in the mid aspect of the right renal artery and left renal artery. CTA Right leg: The right common and right external iliac arteries are widely patent. The right common femoral artery has mild calcific plaque with no focal stenosis. There is a moderate pseudoaneurysm in the right groin measuring 2.6 x 1.9 cm, likely arising from th e right common femoral artery. There is a small to moderate associated hematoma in the right groin. There is moderate stenosis in the right mid and distal SFA.. There is moderate stenosis in the right popliteal artery. There is three-vessel runoff to the right foot. CTA Left leg: The left common iliac artery is normal. There is extensive calcific plaque in the left external ksenia ac artery with no focal stenosis. The left common femoral artery is normal. There is extensive stenting of the left SFA which is widely patent. The left popliteal artery is no rmal. There is three-vessel runoff to the patient's foot. CT abdomen: There are bibasilar atelectatic changes. The liver, spleen, adrenal glands, pancreas, gallbladder are normal. The kidneys are slightly atrophic. There is no evidence of hydronephrosis. There is no ascites or retroperitoneal adenopathy. There is no bowel obstruction. CT pelvis: The urinary bladder is normal. No pelvic masses or pelvic lymphadenopathy seen. There is no free fl uid. The bony pelvis is intact. There is a large amount of stool throughout the colon. RPTAT: AA IMPRESSION: Right groin pseudoaneurysm, likely arising from the right common femoral artery. 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 Status post stenting of the left SFA. The stent is patent. Three-vessel runoff to the left foot. Moderate stenosis of the mid and distal right SFA and right popliteal artery. Three-vessel runoff t o the right foot. .Giancarlo Xiao MD, MD Date Time Electronically viewed and signed by .Giancarlo Xiao MD, on 07/26/2016 11:14 .S/
--- NOTE | 2016-07-26 11:42 | CONS ---
Date/Time of Note Date/Time of Note DATE: 07/26/16 TIME: 11:36 Assessment/Plan Assessment/Plan Chief Complaint/Hosp Course #1 end-stage renal disease, on maintenance hemodialysis Thursday.He is going to have hemodialysis today . #2 bilateral foot pain.He has a high grade stenosis in the L superfiscial femoral artery and other diffuse ASCVD , vascular W/U is in progress . He had an angioplasty and stent placement yesterday on L leg and he now has good pulses in his L foot . #3 anemia. H/H is stable #4 hyperkalemia . He is taking Veltassa for elevated K . He is on increased dose of the the Veltassa to 16.8 gm a day .potassium seems to be coming under control . #5 pseudoaneurysm of R femoral artery .He is now in the ICU for close monitoring . Problems: Consultation Date/Type/Reason Admit Date/Time Jul 11, 2016 at 12:19 Type of Consultation: nephrology 24 HR Interval Summary Free Text/Dictation Patient is now in the ICU because of a R femoral artery pseudoaneurysm . He is awake and responsive . Exam/Review of Systems Vital Signs Vitals Vital Signs Date Time Temp Pulse Resp B/P Pulse Ox O2 Delivery O2 Flow Rate FiO2 07/26/16 07:55 99.7 92 20 134/79 96 07/26/16 05:45 Room Air 07/25/16 16:19 2.0 Intake and Output 07/25/16 07/25/16 07/26/16 15:00 23:00 07:00 Intake Total 300 ml 720 ml 700 ml Output Total 2300 ml Balance -2000 ml 720 ml 700 ml Exam Constitutional: alert, oriented, well developed Respiratory: clear to auscultation, normal air movement Cardiovascular: regular rate and rhythm Gastrointestinal: soft Musculoskeletal: nl extremities to inspection Results Result Diagram: 07/26/16 0454 07/26/16 0455 Results 24 hrs Laboratory Tests Test 07/25/16 11:45 07/25/16 16:55 07/25/16 17:23 07/25/16 18:00 Bedside Glucose 152 47 *L 154 199 Test 07/25/16 21:24 07/25/16 23:47 07/26/16 04:54 07/26/16 04:55 Bedside Glucose 240 H 243 H Basophils # 0.1 Basophils % 0.8 Eosinophils # 0.5 Eosinophils % 6.6 Hematocrit 32.1 L Hemoglobin 10.2 L Lymphocytes # 0.8 Lymphocytes % 10.7 L Mean Corpuscular Hemoglobin 30.0 Mean Corpuscular Hemoglobin Concent 31.8 L Mean Corpuscular Volume 94.4 Mean Platelet Volume 11.7 H Monocytes # 0.7 Monocytes % 8.8 Neutrophils # 5.4 Neutrophils % 72.7 Nucleated Red Blood Cells # 0.0 Nucleated Red Blood Cells % 0.0 Platelet Count 212 Red Blood Count 3.40 L Red Cell Distribution Width 15.0 H White Blood Count 7.5 Alanine Aminotransferase (ALT/SGPT) 108 H Albumin 3.5 Albumin/Globulin Ratio 1.29 Alkaline Phosphatase 267 H Anion Gap 21 H Aspartate Amino Transf (AST/SGOT) 63 H Blood Urea Nitrogen 49 H Calcium Level 7.1 L Carbon Dioxide Level 26 Chloride Level 94 L Creatinine 5.67 H Direct Bilirubin 0.00 Globulin 2.70 Glucose Level 260 #H Indirect Bilirubin 0.2 Potassium Level 5.5 H Sodium Level 135 Total Bilirubin 0.2 Total Protein 6.2 Test 07/26/16 08:10 07/26/16 09:52 07/26/16 11:26 Bedside Glucose 397 H 509 *H 290 H Medications Medications Current Medications Diphenhydramine HCl (Benadryl) 50 mg Q6H PRN IV ITCHING Last administered on 07:36; Admin Dose 50 MG; Start 07/09/16 at 17:00 Non-Formulary Medication (Non-Formulary Insulin) INSULIN PUMP see la... [id number] Last administered on 07/26/16 10:16; Admin Dose 15 UNIT; Start 07/09/16 at 19:45 Non-Formulary Medication (Non-Formulary Insulin) INSULIN PUMP see la... HS SC Last administered on 07/25/16 23:50; Admin Dose 3 UNIT; Start 07/09/16 at 21:00 Miscellaneous Information 1 ea NOTE XX ; Start 07/09/16 at 18:30 Glucose (Glutose) 15 gm Q15M PRN PO DECREASED GLUCOSE; Start 07/09/16 at 18:30 Glucose (Glutose) 22.5 gm Q15M PRN PO DECREASED GLUCOSE; Start 07/09/16 at 18: 30 Dextrose (D50w Syringe) 25 ml Q15M PRN IV DECREASED GLUCOSE Last administered on 07/25/16 17:08; Admin Dose 25 ML; Start 07/09/16 at 18:30 Dextrose (D50w Syringe) 50 ml Q15M PRN IV DECREASED GLUCOSE Last administered on 07/19/16 20:58; Admin Dose 50 ML; Start 07/09/16 at 18:30 Glucagon (Glucagen) 1 mg Q15M PRN IM DECREASED GLUCOSE; Start 07/09/16 at 18:30 Glucose (Glutose) 15 gm Q15M PRN BUCCAL DECREASED GLUCOSE; Start 07/09/16 at 18 :30 Aspirin (Halfprin) 81 mg DAILY PO Last administered on 07/26/16 08:56; Admin Dose 81 MG; Start 07/10/16 at 09:00 Atorvastatin Calcium (Lipitor) 80 mg QHS PO Last administered on 07/25/16 21: 28; Admin Dose 80 MG; Start 07/10/16 at 21:00 Clonidine (Catapres) 0.1 mg Q6 PO Last administered on 07/26/16 07:41; Admin Dose 0.1 MG; Start 07/10/16 at 12:00 Isosorbide Mononitrate (Imdur) 60 mg DAILY PO Last administered on 07/22/16 08: 37; Admin Dose 60 MG; Start 07/10/16 at 10:00 Lactobacillus Acidoph/Bulgaricus (Floranex) 1 tab TID PO Last administered on 08:56; Admin Dose 1 TAB; Start 07/10/16 at 09:00 Metoprolol Succinate (Toprol Xl) 50 mg BID PO Last administered on 07/25/16 21 :29; Admin Dose 50 MG; Start 07/10/16 at 10:00 Prasugrel (Effient) 10 mg DAILY PO Last administered on 07/26/16 08:56; Admin Dose 10 MG; Start 07/10/16 at 10:30 Acetaminophen (Tylenol Tab) 500 mg Q4H PRN PO PAIN AND OR ELEVATED TEMP; Start 07/10/16 at 09:00 Cholestyramine Resin (Questran Light) 4 gm BID PO Last administered on 08:55; Admin Dose 4 GM; Start 07/11/16 at 09:00 Gabapentin (Neurontin) 600 mg TID PO Last administered on 07/26/16 08:56; Admin Dose 600 MG; Start 07/14/16 at 21:00 Pantoprazole (Protonix Tab) 40 mg DAILY@06 PO Last administered on 07/26/16 07 :41; Admin Dose 40 MG; Start 07/16/16 at 06:00 Ondansetron HCl (Zofran Inj) 4 mg Q4H PRN IV NAUSEA AND/OR VOMITING; Start 07/21 at 16:30 Calcitriol (Rocaltrol) 0.5 mcg DAILY PO Last administered on 07/26/16 08:55; Admin Dose 0.5 MCG; Start 07/24/16 at 10:00 Ondansetron HCl (Zofran Inj) 4 mg Q4H PRN IV NAUSEA AND/OR VOMITING; Start 03/31 at 16:00 Hydromorphone HCl (Dilaudid) 1.5 mg Q3 PRN IV PAIN Last administered on 01:44; Admin Dose 1.5 MG; Start 07/25/16 at 18:30 Hydromorphone HCl (Dilaudid) 2 mg ONCE ONCE IV Last administered on 07/26/16 04:32; Admin Dose 2 MG; Start 07/26/16 at 04:19; Stop 07/26/16 at 04:20 Hydromorphone HCl (Dilaudid) 2 mg Q3H PRN IV PAIN Last administered on 11:08; Admin Dose 2 MG; Start 07/26/16 at 10:30; Stop 07/27/16 at 10:29 DONY HOWARD MD Jul 26, 2016 11:42
[2016-07-26] MEDS: DIPHENHYDRAMINE 50 MG INJ IV SCH ×2 (14:15→17:23)
[2016-07-26] MEDS: LIDOCAINE 1% (MDV) 20 ML INJ SC PRN (14:58)
[2016-07-26] MEDS: ALBUMIN HUMAN 25% 100 ML IV PRN (16:26)
[2016-07-26] MEDS: LORAZEPAM 2 MG INJ IV SCH (17:22)
[2016-07-26] MEDS: PATIROMER CALCIUM SORBITEX 8.4 GM PKT PO SCH (17:28)
[2016-07-26] MEDS: ATORVASTATIN 80 MG TAB PO SCH (20:50)
[2016-07-27] VITALS (44 sets, daily range): BP systolic 90–167; BP diastolic 48–117; PULSE 74–105; RESP 12–22
[2016-07-27] MEDS: HYDROmorphONE 2 MG/ML SYG IV PRN ×4 (00:44→23:31)
[2016-07-27] MEDS: DIPHENHYDRAMINE 50 MG INJ IV PRN ×3 (04:40→23:38)
[2016-07-27 05:49] LABS: BASOPHILS % 0.2 % (0.0-2.0); EOSINOPHILS # 0.4 10^3/ul (0.0-0.5); EOSINOPHILS % 5.5 % (0.0-7.0); HEMATOCRIT 24.5 % (42.0-52.0); HEMOGLOBIN 8.3 g/dl (14.0-18.0); LYMPHOCYTES # 0.9 10^3/ul (0.8-2.9); LYMPHOCYTES % 12.9 % (15.0-51.0); MEAN CORPUSCULAR HEMOGLOBIN 31.1 pg (29.0-33.0); MEAN CORPUSCULAR HGB CONC 33.8 g/dl (32.0-37.0); MEAN CORPUSCULAR VOLUME 92.2 fl (82.0-101.0); MEAN PLATELET VOLUME 9.5 fl (7.4-10.4); MONOCYTE # 0.9 10^3/ul (0.3-0.9); MONOCYTES % 12.2 % (0.0-11.0); NEUTROPHIL # 4.9 10^3/ul (1.6-7.5); NEUTROPHILS % 69.2 % (39.0-77.0); PLATELET COUNT 177 10^3/UL (140-440); RED BLOOD COUNT 2.66 10^6/ul (4.70-6.10); RED CELL DISTRIBUTION WIDTH 16.1 % (11.5-14.5); UNCORRECTED WBC 7.1 10^3/ul (4.8-10.8); WHITE BLOOD COUNT 7.1 10^3/ul (4.8-10.8)
[2016-07-27] MEDS: PANTOPRAZOLE (EC) 40 MG TAB PO SCH (05:52)
[2016-07-27 06:18] LABS: CONDITION 1; LH ANALYZER COMMENTS 1
[2016-07-27 08:18] LABS: ALBUMIN 3.6 g/dl (3.3-4.9)
[2016-07-27 08:19] LABS: POTASSIUM 5.2 mmol/L (3.5-5.1)
[2016-07-27 08:21] LABS: BILIRUBIN,INDIRECT 0.5 mg/dl (0-1.1); BILIRUBIN,TOTAL 0.5 mg/dl (0.2-1.3); CREATININE 5.43 mg/dl (0.61-1.24)
[2016-07-27 08:22] LABS: CALCIUM 7.3 mg/dl (8.4-10.2); TOTAL PROTEIN 6.3 g/dl (6.1-8.1)
[2016-07-27] MEDS: SEVELAMER 800 MG TAB PO SCH ×3 (08:32→17:35)
[2016-07-27] MEDS: CALCIUM ACETATE 667 MG CAP PO SCH ×3 (08:33→17:35)
[2016-07-27 08:53] LABS: ALBUMIN/GLOBULIN RATIO 1.33
[2016-07-27] MEDS: CHOLESTYRAMINE (LIGHT) 4 GM PACKET PO SCH ×2 (09:00→21:00)
--- NOTE | 2016-07-27 09:05 | RADRPT ---
PROCEDURE: Right lower extremity arterial ultrasound, limited. CLINICAL INDICATION: Right groin pseudoaneurysm follow-up. Right groin pain. TECHNIQUE: Color and freeman scale images of the arterial vasculature right groin were obtained. COMPARISON: CTA July 26, 2016 FINDINGS: A 3.2 x 1.7 cm pseudoaneurysm is identified immediately adjacent to the right common femoral artery. The neck appears wide measuring approximately 5 mm in diameter and appears short, measuring approx imately 3 mm in length. Turbulent flow is identified within the pseudoaneurysm. Compression of the pseudoaneurysm was held for approximately 15 minutes, with no change. Antegrade flow is identified in the adjacent right common femoral artery. Poorly compressible, occlusive thrombus is identified in the right common femoral vein. IMPRESSION: 3.2 cm pseudoaneurysm arising from the right common femoral artery. The neck of the pseudoaneurysm is wide and short. Compression of the pseudoaneurysm was held for approximately 15 minutes by the ultrasound technologi st with no change in the appearance of the pseudoaneurysm. Incidental note made of deep venous thrombus in the right common femoral in a vein. Further evaluati on of the veins of the right lower extremity with a complete right lower extremity venous ultrasound is recommended. Call report: A call report of the findings was made to the patient's nurse, Shahana, at 9:02 AM on 07/27/2016 . RPTAT: AA .Davian Man MD, MD Date Time Electronically viewed and signed by .Davian Man MD, MD on 07/27/2016 09:04 .P/
[2016-07-27] MEDS: PRASUGREL HYDROCHLORIDE 10 MG TABLET PO SCH (09:53)
[2016-07-27] MEDS: GABAPENTIN 300 MG CAP PO SCH ×3 (09:53→23:55)
[2016-07-27] MEDS: LACTOBACILLUS CHEW TAB PO SCH ×3 (09:53→23:59)
[2016-07-27] MEDS: CALCITRIOL 0.25 MCG CAP PO SCH (09:53)
[2016-07-27] MEDS: METOPROLOL (XL) 50 MG TAB PO SCH ×2 (09:54→23:55)
[2016-07-27] MEDS: ISOSORBIDE MONONITRATE(SR)60 MG TAB PO SCH (09:54)
[2016-07-27] MEDS: ASPIRIN (EC) 81 MG TAB PO SCH (09:54)
[2016-07-27] MEDS: HYDROmorphONE 1 MG/ML SYG IV PRN ×2 (10:40→13:43)
[2016-07-27] MEDS: PATIROMER CALCIUM SORBITEX 8.4 GM PKT PO SCH (11:31)
--- NOTE | 2016-07-27 13:53 | CONS ---
Date/Time of Note Date/Time of Note DATE: 07/27/16 TIME: 13:47 Assessment/Plan Assessment/Plan Chief Complaint/Hosp Course #1 end-stage renal disease, on maintenance hemodialysis Thursday. Will order hemodialysis for tomorrow . #2 bilateral foot pain.He has a high grade stenosis in the L superfiscial femoral artery and other diffuse ASCVD , vascular W/U is in progress . He had an angioplasty and stent placement 2 days ago on L leg and he now has good pulses in his L foot . #3 anemia. H/H is decreased from yesterday . Probably due to bleeding into R groin . #4 hyperkalemia . He is taking Veltassa for elevated K . He is on increased dose of the the Veltassa to 16.8 gm a day .potassium seems to be coming under control . #5 pseudoaneurysm of R femoral artery .He is now in the ICU for close monitoring . Problems: Consultation Date/Type/Reason Admit Date/Time Jul 11, 2016 at 12:19 Type of Consultation: nephrology 24 HR Interval Summary Free Text/Dictation He is in the ICU . He is awake and responsive .He still has some pain in R groin . Constitutional: improved Exam/Review of Systems Vital Signs Vitals Vital Signs Date Time Temp Pulse Resp B/P Pulse Ox O2 Delivery O2 Flow Rate FiO2 07/27/16 12:06 82 07/27/16 10:00 19 142/83 87 07/27/16 07:00 97.6 07/27/16 06:00 Room Air 07/25/16 16:19 2.0 Intake and Output 07/26/16 07/26/16 07/27/16 15:00 23:00 07:00 Intake Total 120 ml 1000 ml Output Total 10 ml Balance 120 ml 990 ml Exam R groin slightly swollen with some ecchymosis Constitutional: alert, oriented, well developed Head: atraumatic, normocephalic Respiratory: clear to auscultation, normal air movement Cardiovascular: regular rate and rhythm Gastrointestinal: soft Extremities: normal pulses Results Result Diagram: 07/27/16 0515 07/27/16 0750 Results 24 hrs Laboratory Tests Test 07/26/16 18:13 07/26/16 19:57 07/26/16 22:46 07/27/16 05:15 Bedside Glucose 146 88 117 Basophils # 0.0 Basophils % 0.2 Blood Morphology Comment Eosinophils # 0.4 Eosinophils % 5.5 Hematocrit 24.5 #L Hemoglobin 8.3 L Lymphocytes # 0.9 Lymphocytes % 12.9 L Mean Corpuscular Hemoglobin 31.1 Mean Corpuscular Hemoglobin Concent 33.8 Mean Corpuscular Volume 92.2 Mean Platelet Volume 9.5 Monocytes # 0.9 Monocytes % 12.2 H Neutrophils # 4.9 Neutrophils % 69.2 Nucleated Red Blood Cells # 0.0 Nucleated Red Blood Cells % 0.0 Platelet Count 177 Red Blood Count 2.66 #L Red Cell Distribution Width 16.1 H White Blood Count 7.1 Test 07/27/16 07:50 07/27/16 08:38 07/27/16 11:33 Alanine Aminotransferase (ALT/SGPT) 89 H Albumin 3.6 Albumin/Globulin Ratio 1.33 Alkaline Phosphatase 240 H Anion Gap 20 H Aspartate Amino Transf (AST/SGOT) 44 Blood Urea Nitrogen 43 H Calcium Level 7.3 L Carbon Dioxide Level 26 Chloride Level 96 L Creatinine 5.43 H Direct Bilirubin 0.00 Globulin 2.70 Glucose Level 292 H Indirect Bilirubin 0.5 Potassium Level 5.2 H Sodium Level 137 Total Bilirubin 0.5 Total Protein 6.3 Bedside Glucose 270 H 225 H Medications Medications Current Medications Diphenhydramine HCl (Benadryl) 50 mg Q6H PRN IV ITCHING Last administered on 10:40; Admin Dose 50 MG; Start 07/09/16 at 17:00 Non-Formulary Medication (Non-Formulary Insulin) INSULIN PUMP see la... [id number] Last administered on 07/26/16 13:40; Admin Dose 5 UNIT; Start 07/09/16 at 19:45 Non-Formulary Medication (Non-Formulary Insulin) INSULIN PUMP see la... HS SC Last administered on 07/25/16 23:50; Admin Dose 3 UNIT; Start 07/09/16 at 21:00 Miscellaneous Information 1 ea NOTE XX ; Start 07/09/16 at 18:30 Glucose (Glutose) 15 gm Q15M PRN PO DECREASED GLUCOSE; Start 07/09/16 at 18:30 Glucose (Glutose) 22.5 gm Q15M PRN PO DECREASED GLUCOSE; Start 07/09/16 at 18: 30 Dextrose (D50w Syringe) 25 ml Q15M PRN IV DECREASED GLUCOSE Last administered on 07/25/16 17:08; Admin Dose 25 ML; Start 07/09/16 at 18:30 Dextrose (D50w Syringe) 50 ml Q15M PRN IV DECREASED GLUCOSE Last administered on 07/19/16 20:58; Admin Dose 50 ML; Start 07/09/16 at 18:30 Glucagon (Glucagen) 1 mg Q15M PRN IM DECREASED GLUCOSE; Start 07/09/16 at 18:30 Glucose (Glutose) 15 gm Q15M PRN BUCCAL DECREASED GLUCOSE; Start 07/09/16 at 18 :30 Aspirin (Halfprin) 81 mg DAILY PO Last administered on 07/27/16 09:54; Admin Dose 81 MG; Start 07/10/16 at 09:00 Atorvastatin Calcium (Lipitor) 80 mg QHS PO Last administered on 07/26/16 20: 50; Admin Dose 80 MG; Start 07/10/16 at 21:00 Clonidine (Catapres) 0.1 mg Q6 PO Last administered on 07/27/16 11:32; Admin Dose 0.1 MG; Start 07/10/16 at 12:00 Isosorbide Mononitrate (Imdur) 60 mg DAILY PO Last administered on 07/27/16 09 :54; Admin Dose 60 MG; Start 07/10/16 at 10:00 Lactobacillus Acidoph/Bulgaricus (Floranex) 1 tab TID PO Last administered on 12:53; Admin Dose 1 TAB; Start 07/10/16 at 09:00 Metoprolol Succinate (Toprol Xl) 50 mg BID PO Last administered on 07/27/16 09 :54; Admin Dose 50 MG; Start 07/10/16 at 10:00 Prasugrel (Effient) 10 mg DAILY PO Last administered on 07/27/16 09:53; Admin Dose 10 MG; Start 07/10/16 at 10:30 Acetaminophen (Tylenol Tab) 500 mg Q4H PRN PO PAIN AND OR ELEVATED TEMP; Start 07/10/16 at 09:00 Cholestyramine Resin (Questran Light) 4 gm BID PO Last administered on 20:50; Admin Dose 4 GM; Start 07/11/16 at 09:00 Gabapentin (Neurontin) 600 mg TID PO Last administered on 07/27/16 12:53; Admin Dose 600 MG; Start 07/14/16 at 21:00 Pantoprazole (Protonix Tab) 40 mg DAILY@06 PO Last administered on 07/27/16 05 :52; Admin Dose 40 MG; Start 07/16/16 at 06:00 Ondansetron HCl (Zofran Inj) 4 mg Q4H PRN IV NAUSEA AND/OR VOMITING; Start 07/21 at 16:30 Calcitriol (Rocaltrol) 0.5 mcg DAILY PO Last administered on 07/27/16 09:53; Admin Dose 0.5 MCG; Start 07/24/16 at 10:00 Ondansetron HCl (Zofran Inj) 4 mg Q4H PRN IV NAUSEA AND/OR VOMITING; Start 03/31 at 16:00 Hydromorphone HCl (Dilaudid) 1.5 mg Q3 PRN IV PAIN Last administered on 10:40; Admin Dose 1.5 MG; Start 07/25/16 at 18:30 Hydromorphone HCl (Dilaudid) 2 mg ONCE ONCE IV Last administered on 07/26/16 04:32; Admin Dose 2 MG; Start 07/26/16 at 04:19; Stop 07/26/16 at 04:20 Hydromorphone HCl (Dilaudid) 2 mg Q3H PRN IV PAIN Last administered on 07:53; Admin Dose 2 MG; Start 07/26/16 at 10:30; Stop 07/27/16 at 10:29 DONY HOWARD MD Jul 27, 2016 13:53
[2016-07-27] MEDS ORDERED: SOD CHLORIDE 0.9% 250 ML IV* ONE (14:02)
[2016-07-27 14:46] LABS: BASOPHILS % 0.5 % (0.0-2.0); EOSINOPHILS # 0.6 10^3/ul (0.0-0.5); EOSINOPHILS % 7.1 % (0.0-7.0); HEMATOCRIT 29.7 % (42.0-52.0); LYMPHOCYTES # 0.9 10^3/ul (0.8-2.9); LYMPHOCYTES % 11.3 % (15.0-51.0); MEAN CORPUSCULAR HGB CONC 33.8 g/dl (32.0-37.0); MEAN CORPUSCULAR VOLUME 91.8 fl (82.0-101.0); MEAN PLATELET VOLUME 9.5 fl (7.4-10.4); MONOCYTE # 0.9 10^3/ul (0.3-0.9); MONOCYTES % 11.5 % (0.0-11.0); NEUTROPHIL # 5.6 10^3/ul (1.6-7.5); NEUTROPHILS % 69.6 % (39.0-77.0); PLATELET COUNT 200 10^3/UL (140-440); RED BLOOD COUNT 3.24 10^6/ul (4.70-6.10); RED CELL DISTRIBUTION WIDTH 15.7 % (11.5-14.5); UNCORRECTED WBC 8.1 10^3/ul (4.8-10.8); WHITE BLOOD COUNT 8.1 10^3/ul (4.8-10.8)
--- NOTE | 2016-07-27 14:46 | PN ---
Date/Time of Note Date/Time of Note DATE: 07/27/16 TIME: 14:40 Assessment/Plan Lines/Catheters IV Catheter Type (from [facility], [place]): SUZANNE CATH. Foster in Place (from [facility], [place]): No Assessment/Plan Chief Complaint/Hosp Course -End-stage renal disease: It seems that the patient's left upper extremity fistula is functioning well. Recommend continue with his hemodialysis sessions via the fistula. Patient also had his recent Perm-A-Cath removed. From a vascular standpoint, we will continue his fistula surveillance as an outpatient. -Bilateral lower extremity atherosclerosis: S/P angio with LLE SFA severe stenosis. S/P LLE Atherectomy, Stenting and angioplasty -Patient had complain of Right groin discomfort and upon CTA of Right [employer] there was a [employer] pseudoaneurysm. Have discussed with the patient about his options of conservative (U/S guided thrombin injection) versus invasive. He has chosen the invasive route for [employer] exploration and ligation of pseudoaneurysm. Will therefore schedule for today -Right CFV DVT likely developed post angiogram manual compression. Will plan to treat and will discuss with primary service for IV/PO regimen -Recommend ICU monitoring for observation -Optimize vascular status (BP meds, diet, nutrition, exercise, sugar control, antiplatelets). -Discussed findings with plan and management with the patient and he understands. -Thank you for allowing us to partake in the care of your patient. Please call with any questions. Problems: Subjective 24 Hr Interval Summary pt still has discomfort of the right groin, mentions his RLE feels swollen Exam/Review of Systems Vital Signs Vitals Vital Signs Date Time Temp Pulse Resp B/P Pulse Ox O2 Delivery O2 Flow Rate FiO2 07/27/16 12:06 82 07/27/16 10:00 19 142/83 87 07/27/16 07:00 97.6 07/27/16 06:00 Room Air 07/25/16 16:19 2.0 Intake and Output 07/26/16 07/26/16 07/27/16 15:00 23:00 07:00 Intake Total 120 ml 1000 ml Output Total 10 ml Balance 120 ml 990 ml Exam Free Text/Dictation GENERAL: Alert and oriented x3. PULMONARY: Clear to auscultation bilaterally. CARDIOVASCULAR: S1, S2 present. ABDOMEN: Soft, nontender, nondistended. Bowel sounds positive. EXTREMITIES: Left upper extremity palpable brachial pulse. Motor, sensory intact. Capillary refill 2 to 3 seconds. Surgical scars all well healed. Fistula with bruit and thrill present Right lower extremity palpable femoral pulse, palpable pedal pulse. Motor and sensory intact. Capillary refill 3 seconds, groin tenderness upon palpation, some ecchymosis, no pulsatile mass, soft except a focal area with slight swelling, edema 1-2+ Left lower extremity palpable femoral pulse, palpable pedal pulse. Motor and sensory intact. Capillary refill 2 to 3 seconds Results Result Diagram: 07/27/16 0515 07/27/16 0750 JOE BARR MD Jul 27, 2016 14:46
[2016-07-27 14:49] LABS: CONDITION 1
[2016-07-27 14:50] LABS: LH ANALYZER COMMENTS 1
[2016-07-27 14:52] LABS: AADO2 Arterial 32.4 mmHg (7.0-24.0); Arterial Base Excess -1.5 mmol/L (-3.0-3); Arterial COHb 0.3 % (0.0-3.0); Arterial Fraction of Oxyhgb 92.8 % (93.0-99.0); Arterial HCO3 22.9 mmol/L (22.0-26.0); Arterial MetHb 0.3 % (0.0-1.5); Arterial Total Hemglobin 10.8 g/dl (12.0-18.0); MODE ROOM AIR
[2016-07-27] MEDS ORDERED: HEPARIN 1000 UNITS/ML 10 ML INJ IV ONE (15:00)
[2016-07-27] MEDS ORDERED: HEPARIN 1000 UNITS/ML 10 ML INJ IV PRN ×2 (15:00)
[2016-07-27 15:24] LABS: INR 1.15; PROTIME 14.7 Sec (12.2-14.2); PT RATIO 1.1
[2016-07-27 15:25] LABS: PARTIAL THROMBOPLASTIN TIME 34.3 Sec (25.0-35.0)
--- NOTE | 2016-07-27 16:09 | PN ---
Date/Time of Note Date/Time of Note DATE: 07/27/16 TIME: 16:03 Assessment/Plan VTE Prophylaxis VTE Prophylaxis Intervention: other Lines/Catheters IV C[facility]ter Type (from [facility]): SUZANNE CATH. Urinary Cath still in place: No Assessment/Plan Assessment/Plan 1. Diarrhea with recent history of Clostridium difficile colitis, resolved. Continue patient on vancomycin and Questran. Dr. Gomez is following in gastroenterology consultation 2. Dehydration secondary to diarrhea with recent history of Clostridium difficile colitis. Stool for C. difficile is negative. 3. Type 1 diabetes mellitus with diabetic nephropathy. Continue NovoLog per insulin pump. 4. End-stage renal disease, hemodialysis dependent. Dr. Hubbard is following the patient in nephrology consultation. Continue dialysis per nephrology. 5. Coronary artery disease. Continue Imdur and metoprolol. 6. Hypertension. 7. Bilateral lower extremities pain. Dr. Orosco is following and rheumatology consultation. 8. Lateral lower extremities atherosclerosis. - per in vascular surgery consultation. S/P angio with LLE SFA severe stenosis. - RLE- vasculat revascularization today Continue heparin for deep venous thrombosis prophylaxis and Pepcid for peptic ulcer disease prophylaxis. Further recommendations based on clinical course. Plan of care discussed with Dr. Rosales. Subjective 24 Hr Interval Summary Free Text/Dictation Late Entery 07/26/16- Eyes: no complaints ENT: no complaints Respiratory: no complaints Cardiovascular: no complaints Gastrointestinal: no complaints Genitourinary: no complaints Musculoskeletal: back pain Skin: no complaints Neurologic: no complaints Endocrine: no complaints Lymphatic: no complaints Exam/Review of Systems Vital Signs Vitals Vital Signs Date Time Temp Pulse Resp B/P Pulse Ox O2 Delivery O2 Flow Rate FiO2 07/27/16 15:30 96 99 07/27/16 15:30 132/79 07/27/16 14:30 14 07/27/16 14:00 Room Air 07/27/16 12:00 99.1 07/25/16 16:19 2.0 Intake and Output 07/26/16 07/26/16 07/27/16 15:00 23:00 07:00 Intake Total 120 ml 1000 ml Output Total 10 ml Balance 120 ml 990 ml Exam Constitutional: alert, oriented, well developed Psych: nl mood/affect Head: atraumatic Eyes: EOMI, nl sclera, other ENMT: nl external ears & nose Neck: non-tender Respiratory: clear to auscultation Cardiovascular: nl pulses Gastrointestinal: nl liver, spleen, soft Musculoskeletal: nl extremities to inspection Extremities: normal pulses, other 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: nl mental status, nl speech Skin: nl turgor Lymph: nontender Results Result Diagram: 07/27/16 1430 07/27/16 0750 Results 24 hrs Laboratory Tests Test 07/26/16 18:13 07/26/16 19:57 07/26/16 22:46 07/27/16 05:15 Bedside Glucose 146 88 117 Basophils # 0.0 Basophils % 0.2 Blood Morphology Comment Eosinophils # 0.4 Eosinophils % 5.5 Hematocrit 24.5 #L Hemoglobin 8.3 L Lymphocytes # 0.9 Lymphocytes % 12.9 L Mean Corpuscular Hemoglobin 31.1 Mean Corpuscular Hemoglobin Concent 33.8 Mean Corpuscular Volume 92.2 Mean Platelet Volume 9.5 Monocytes # 0.9 Monocytes % 12.2 H Neutrophils # 4.9 Neutrophils % 69.2 Nucleated Red Blood Cells # 0.0 Nucleated Red Blood Cells % 0.0 Platelet Count 177 Red Blood Count 2.66 #L Red Cell Distribution Width 16.1 H White Blood Count 7.1 Test 07/27/16 07:50 07/27/16 08:38 07/27/16 11:33 07/27/16 14:19 Alanine Aminotransferase (ALT/SGPT) 89 H Albumin 3.6 Albumin/Globulin Ratio 1.33 Alkaline Phosphatase 240 H Anion Gap 20 H Aspartate Amino Transf (AST/SGOT) 44 Blood Urea Nitrogen 43 H Calcium Level 7.3 L Carbon Dioxide Level 26 Chloride Level 96 L Creatinine 5.43 H Direct Bilirubin 0.00 Globulin 2.70 Glucose Level 292 H Indirect Bilirubin 0.5 Potassium Level 5.2 H Sodium Level 137 Total Bilirubin 0.5 Total Protein 6.3 Bedside Glucose 270 H 225 H Arterial Blood HCO3 22.9 Arterial Blood Base Excess -1.5 Arterial Blood Oxygen Saturation 93.4 L Dick Test N/A Arterial Blood Gas Puncture Site Right Brachial Arterial Blood Carboxyhemoglobin 0.3 Arterial Blood Date Drawn 07/27/2016 2:45:51 PM Arterial Blood Methemoglobin 0.3 Arterial Blood pCO2 (Temp correct) 37.6 Arterial Blood pH (Temp corrected) 7.403 Arterial Blood pO2 (Temp corrected) 72.3 L Blood Gas A-a O2 Differential 32.4 H Blood Gas Modality ROOM AIR Blood Gas Notified Time 07/27/2016 2:52:44 PM Blood Gas Notified Whom TM Blood Gas Specimen Source Blood arterial Blood Gas Temperature 37.0 FiO2 21.0 Oxyhemoglobin Percent 92.8 L Total Hemoglobin 10.8 L Test 07/27/16 14:30 07/27/16 14:50 Basophils # 0.0 Basophils % 0.5 Blood Morphology Comment Eosinophils # 0.6 H Eosinophils % 7.1 H Hematocrit 29.7 #L Hemoglobin 10.0 #L Lymphocytes # 0.9 Lymphocytes % 11.3 L Mean Corpuscular Hemoglobin 31.0 Mean Corpuscular Hemoglobin Concent 33.8 Mean Corpuscular Volume 91.8 Mean Platelet Volume 9.5 Monocytes # 0.9 Monocytes % 11.5 H Neutrophils # 5.6 Neutrophils % 69.6 Nucleated Red Blood Cells # 0.0 Nucleated Red Blood Cells % 0.0 Platelet Count 200 Red Blood Count 3.24 #L Red Cell Distribution Width 15.7 H White Blood Count 8.1 Activated Partial Thromboplast Time 34.3 INR International Normalized Ratio 1.15 Prothrombin Time 14.7 H Prothrombin Time Ratio 1.1 Medications Medications Current Medications Diphenhydramine HCl (Benadryl) 50 mg Q6H PRN IV ITCHING Last administered on 10:40; Admin Dose 50 MG; Start 07/09/16 at 17:00 Non-Formulary Medication (Non-Formulary Insulin) INSULIN PUMP see la... [id number] Last administered on 07/26/16 13:40; Admin Dose 5 UNIT; Start 07/09/16 at 19:45 Non-Formulary Medication (Non-Formulary Insulin) INSULIN PUMP see la... HS SC Last administered on 07/25/16 23:50; Admin Dose 3 UNIT; Start 07/09/16 at 21:00 Miscellaneous Information 1 ea NOTE XX ; Start 07/09/16 at 18:30 Glucose (Glutose) 15 gm Q15M PRN PO DECREASED GLUCOSE; Start 07/09/16 at 18:30 Glucose (Glutose) 22.5 gm Q15M PRN PO DECREASED GLUCOSE; Start 07/09/16 at 18: 30 Dextrose (D50w Syringe) 25 ml Q15M PRN IV DECREASED GLUCOSE Last administered on 07/25/16 17:08; Admin Dose 25 ML; Start 07/09/16 at 18:30 Dextrose (D50w Syringe) 50 ml Q15M PRN IV DECREASED GLUCOSE Last administered on 07/19/16 20:58; Admin Dose 50 ML; Start 07/09/16 at 18:30 Glucagon (Glucagen) 1 mg Q15M PRN IM DECREASED GLUCOSE; Start 07/09/16 at 18:30 Glucose (Glutose) 15 gm Q15M PRN BUCCAL DECREASED GLUCOSE; Start 07/09/16 at 18 :30 Aspirin (Halfprin) 81 mg DAILY PO Last administered on 07/27/16 09:54; Admin Dose 81 MG; Start 07/10/16 at 09:00 Atorvastatin Calcium (Lipitor) 80 mg QHS PO Last administered on 07/26/16 20: 50; Admin Dose 80 MG; Start 07/10/16 at 21:00 Clonidine (Catapres) 0.1 mg Q6 PO Last administered on 07/27/16 11:32; Admin Dose 0.1 MG; Start 07/10/16 at 12:00 Isosorbide Mononitrate (Imdur) 60 mg DAILY PO Last administered on 07/27/16 09 :54; Admin Dose 60 MG; Start 07/10/16 at 10:00 Lactobacillus Acidoph/Bulgaricus (Floranex) 1 tab TID PO Last administered on 12:53; Admin Dose 1 TAB; Start 07/10/16 at 09:00 Metoprolol Succinate (Toprol Xl) 50 mg BID PO Last administered on 07/27/16 09 :54; Admin Dose 50 MG; Start 07/10/16 at 10:00 Prasugrel (Effient) 10 mg DAILY PO Last administered on 07/27/16 09:53; Admin Dose 10 MG; Start 07/10/16 at 10:30 Acetaminophen (Tylenol Tab) 500 mg Q4H PRN PO PAIN AND OR ELEVATED TEMP; Start 07/10/16 at 09:00 Cholestyramine Resin (Questran Light) 4 gm BID PO Last administered on 20:50; Admin Dose 4 GM; Start 07/11/16 at 09:00 Gabapentin (Neurontin) 600 mg TID PO Last administered on 07/27/16 12:53; Admin Dose 600 MG; Start 07/14/16 at 21:00 Pantoprazole (Protonix Tab) 40 mg DAILY@06 PO Last administered on 07/27/16 05 :52; Admin Dose 40 MG; Start 07/16/16 at 06:00 Ondansetron HCl (Zofran Inj) 4 mg Q4H PRN IV NAUSEA AND/OR VOMITING; Start 07/21 at 16:30 Calcitriol (Rocaltrol) 0.5 mcg DAILY PO Last administered on 07/27/16 09:53; Admin Dose 0.5 MCG; Start 07/24/16 at 10:00 Ondansetron HCl (Zofran Inj) 4 mg Q4H PRN IV NAUSEA AND/OR VOMITING; Start 03/31 at 16:00 Hydromorphone HCl (Dilaudid) 1.5 mg Q3 PRN IV PAIN Last administered on 13:43; Admin Dose 1.5 MG; Start 07/25/16 at 18:30 PEDRO BENSON Jul 27, 2016 16:09
--- NOTE | 2016-07-27 16:12 | PN ---
Date/Time of Note Date/Time of Note DATE: 07/27/16 TIME: 16:09 Assessment/Plan VTE Prophylaxis VTE Prophylaxis Intervention: other Lines/Catheters IV Catheter Type (from [facility]): SUZANNE CATH. Urinary Cath still in place: No Assessment/Plan Assessment/Plan 1. Diarrhea with recent history of Clostridium difficile colitis, resolved. Continue patient on vancomycin and Questran. Dr. Gomez is following in gastroenterology consultation 2. Dehydration secondary to diarrhea with recent history of Clostridium difficile colitis. Stool for C. difficile is negative. 3. Type 1 diabetes mellitus with diabetic nephropathy. Continue NovoLog per insulin pump. 4. End-stage renal disease, hemodialysis dependent. Dr. Hubbard is following the patient in nephrology consultation. Continue dialysis per nephrology. 5. Coronary artery disease. Continue Imdur and metoprolol. 6. Hypertension. 7. Bilateral lower extremities pain. Dr. Orosco is following and rheumatology consultation. 8. Lateral lower extremities atherosclerosis. is following in vascular surgery consultation. S/P angio with LLE SFA severe stenosis. Plan for vascular intervention today. 9. Hyperkalemia - HD today 10. Anemia of chronic disease - fu stat H/H - transfuse blood during HD if needed Continue heparin for deep venous thrombosis prophylaxis and Pepcid for peptic ulcer disease prophylaxis. Further recommendations based on clinical course. Plan of care discussed with Dr. Rosales. Subjective 24 Hr Interval Summary Eyes: no complaints ENT: no complaints Respiratory: no complaints Cardiovascular: no complaints Genitourinary: no complaints Musculoskeletal: no complaints Skin: no complaints Neurologic: no complaints Endocrine: no complaints Lymphatic: no complaints Psychological: no complaints Immunologic: no complaints Exam/Review of Systems Vital Signs Vitals Vital Signs Date Time Temp Pulse Resp B/P Pulse Ox O2 Delivery O2 Flow Rate FiO2 07/27/16 15:30 96 99 07/27/16 15:30 132/79 07/27/16 14:30 14 07/27/16 14:00 Room Air 07/27/16 12:00 99.1 07/25/16 16:19 2.0 Intake and Output 07/26/16 07/26/16 07/27/16 15:00 23:00 07:00 Intake Total 120 ml 1000 ml Output Total 10 ml Balance 120 ml 990 ml Exam Constitutional: alert, oriented, well developed Psych: nl mood/affect Head: atraumatic Eyes: nl conjunctiva ENMT: nl external ears & nose Neck: supple Respiratory: clear to auscultation Cardiovascular: nl pulses Gastrointestinal: non-tender, soft Musculoskeletal: nl extremities to inspection Extremities: normal pulses 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: nl mental status, nl speech Lymph: nontender Results Result Diagram: 07/27/16 1430 07/27/16 0750 Results 24 hrs Laboratory Tests Test 07/26/16 18:13 07/26/16 19:57 07/26/16 22:46 07/27/16 05:15 Bedside Glucose 146 88 117 Basophils # 0.0 Basophils % 0.2 Blood Morphology Comment Eosinophils # 0.4 Eosinophils % 5.5 Hematocrit 24.5 #L Hemoglobin 8.3 L Lymphocytes # 0.9 Lymphocytes % 12.9 L Mean Corpuscular Hemoglobin 31.1 Mean Corpuscular Hemoglobin Concent 33.8 Mean Corpuscular Volume 92.2 Mean Platelet Volume 9.5 Monocytes # 0.9 Monocytes % 12.2 H Neutrophils # 4.9 Neutrophils % 69.2 Nucleated Red Blood Cells # 0.0 Nucleated Red Blood Cells % 0.0 Platelet Count 177 Red Blood Count 2.66 #L Red Cell Distribution Width 16.1 H White Blood Count 7.1 Test 07/27/16 07:50 07/27/16 08:38 07/27/16 11:33 07/27/16 14:19 Alanine Aminotransferase (ALT/SGPT) 89 H Albumin 3.6 Albumin/Globulin Ratio 1.33 Alkaline Phosphatase 240 H Anion Gap 20 H Aspartate Amino Transf (AST/SGOT) 44 Blood Urea Nitrogen 43 H Calcium Level 7.3 L Carbon Dioxide Level 26 Chloride Level 96 L Creatinine 5.43 H Direct Bilirubin 0.00 Globulin 2.70 Glucose Level 292 H Indirect Bilirubin 0.5 Potassium Level 5.2 H Sodium Level 137 Total Bilirubin 0.5 Total Protein 6.3 Bedside Glucose 270 H 225 H Arterial Blood HCO3 22.9 Arterial Blood Base Excess -1.5 Arterial Blood Oxygen Saturation 93.4 L Dick Test N/A Arterial Blood Gas Puncture Site Right Brachial Arterial Blood Carboxyhemoglobin 0.3 Arterial Blood Date Drawn 07/27/2016 2:45:51 PM Arterial Blood Methemoglobin 0.3 Arterial Blood pCO2 (Temp correct) 37.6 Arterial Blood pH (Temp corrected) 7.403 Arterial Blood pO2 (Temp corrected) 72.3 L Blood Gas A-a O2 Differential 32.4 H Blood Gas Modality ROOM AIR Blood Gas Notified Time 07/27/2016 2:52:44 PM Blood Gas Notified Whom TM Blood Gas Specimen Source Blood arterial Blood Gas Temperature 37.0 FiO2 21.0 Oxyhemoglobin Percent 92.8 L Total Hemoglobin 10.8 L Test 07/27/16 14:30 07/27/16 14:50 Basophils # 0.0 Basophils % 0.5 Blood Morphology Comment Eosinophils # 0.6 H Eosinophils % 7.1 H Hematocrit 29.7 #L Hemoglobin 10.0 #L Lymphocytes # 0.9 Lymphocytes % 11.3 L Mean Corpuscular Hemoglobin 31.0 Mean Corpuscular Hemoglobin Concent 33.8 Mean Corpuscular Volume 91.8 Mean Platelet Volume 9.5 Monocytes # 0.9 Monocytes % 11.5 H Neutrophils # 5.6 Neutrophils % 69.6 Nucleated Red Blood Cells # 0.0 Nucleated Red Blood Cells % 0.0 Platelet Count 200 Red Blood Count 3.24 #L Red Cell Distribution Width 15.7 H White Blood Count 8.1 Activated Partial Thromboplast Time 34.3 INR International Normalized Ratio 1.15 Prothrombin Time 14.7 H Prothrombin Time Ratio 1.1 Medications Medications Current Medications Diphenhydramine HCl (Benadryl) 50 mg Q6H PRN IV ITCHING Last administered on 10:40; Admin Dose 50 MG; Start 07/09/16 at 17:00 Non-Formulary Medication (Non-Formulary Insulin) INSULIN PUMP see la... [id number] SC Last administered on 07/26/16 13:40; Admin Dose 5 UNIT; Start 07/09/16 at 19:45 Non-Formulary Medication (Non-Formulary Insulin) INSULIN PUMP see la... HS SC Last administered on 07/25/16 23:50; Admin Dose 3 UNIT; Start 07/09/16 at 21:00 Miscellaneous Information 1 ea NOTE XX ; Start 07/09/16 at 18:30 Glucose (Glutose) 15 gm Q15M PRN PO DECREASED GLUCOSE; Start 07/09/16 at 18:30 Glucose (Glutose) 22.5 gm Q15M PRN PO DECREASED GLUCOSE; Start 07/09/16 at 18: 30 Dextrose (D50w Syringe) 25 ml Q15M PRN IV DECREASED GLUCOSE Last administered on 07/25/16 17:08; Admin Dose 25 ML; Start 07/09/16 at 18:30 Dextrose (D50w Syringe) 50 ml Q15M PRN IV DECREASED GLUCOSE Last administered on 07/19/16 20:58; Admin Dose 50 ML; Start 07/09/16 at 18:30 Glucagon (Glucagen) 1 mg Q15M PRN IM DECREASED GLUCOSE; Start 07/09/16 at 18:30 Glucose (Glutose) 15 gm Q15M PRN BUCCAL DECREASED GLUCOSE; Start 07/09/16 at 18 :30 Aspirin (Halfprin) 81 mg DAILY PO Last administered on 07/27/16 09:54; Admin Dose 81 MG; Start 07/10/16 at 09:00 Atorvastatin Calcium (Lipitor) 80 mg QHS PO Last administered on 07/26/16 20: 50; Admin Dose 80 MG; Start 07/10/16 at 21:00 Clonidine (Catapres) 0.1 mg Q6 PO Last administered on 07/27/16 11:32; Admin Dose 0.1 MG; Start 07/10/16 at 12:00 Isosorbide Mononitrate (Imdur) 60 mg DAILY PO Last administered on 07/27/16 09 :54; Admin Dose 60 MG; Start 07/10/16 at 10:00 Lactobacillus Acidoph/Bulgaricus (Floranex) 1 tab TID PO Last administered on 12:53; Admin Dose 1 TAB; Start 07/10/16 at 09:00 Metoprolol Succinate (Toprol Xl) 50 mg BID PO Last administered on 07/27/16 09 :54; Admin Dose 50 MG; Start 07/10/16 at 10:00 Prasugrel (Effient) 10 mg DAILY PO Last administered on 07/27/16 09:53; Admin Dose 10 MG; Start 07/10/16 at 10:30 Acetaminophen (Tylenol Tab) 500 mg Q4H PRN PO PAIN AND OR ELEVATED TEMP; Start 07/10/16 at 09:00 Cholestyramine Resin (Questran Light) 4 gm BID PO Last administered on 20:50; Admin Dose 4 GM; Start 07/11/16 at 09:00 Gabapentin (Neurontin) 600 mg TID PO Last administered on 07/27/16 12:53; Admin Dose 600 MG; Start 07/14/16 at 21:00 Pantoprazole (Protonix Tab) 40 mg DAILY@06 PO Last administered on 07/27/16 05 :52; Admin Dose 40 MG; Start 07/16/16 at 06:00 Ondansetron HCl (Zofran Inj) 4 mg Q4H PRN IV NAUSEA AND/OR VOMITING; Start 07/21 at 16:30 Calcitriol (Rocaltrol) 0.5 mcg DAILY PO Last administered on 07/27/16 09:53; Admin Dose 0.5 MCG; Start 07/24/16 at 10:00 Ondansetron HCl (Zofran Inj) 4 mg Q4H PRN IV NAUSEA AND/OR VOMITING; Start 03/31 at 16:00 Hydromorphone HCl (Dilaudid) 1.5 mg Q3 PRN IV PAIN Last administered on 13:43; Admin Dose 1.5 MG; Start 07/25/16 at 18:30 PEDRO BENSON Jul 27, 2016 16:12
[2016-07-27] MEDS: HEPARIN 25000 UNITS/250 ML 250 ML IV SCH (16:17)
[2016-07-27] MEDS: LORAZEPAM 2 MG INJ IV SCH (16:33)
[2016-07-27] MEDS: DIPHENHYDRAMINE 50 MG INJ IV SCH (16:34)
[2016-07-27 16:36] LABS: HEMATOCRIT 29.2 % (42.0-52.0); HEMOGLOBIN 9.8 g/dl (14.0-18.0)
--- NOTE | 2016-07-27 18:17 | RADRPT ---
PROCEDURE: US bilateral lower extremity veins. CLINICAL INDICATION: Bilateral leg pain and swelling. TECHNIQUE: Multiple longitudinal and transverse images of the bilateral lower extremity veins were obtained with freeman scale and color Doppler imaging. The common femoral vein, femoral vein, and popl iteal vein were evaluated. 2D grayscale measurements with compression sonography, color Doppler, and pulsed Doppler with augmentation. COMPARISON: No prior studies are available for comparison. FINDINGS: The right common femoral vein is normally compressible throughout. Color flow demonstrates normal f illing of the vessels. Normal waveforms are visualized and there is normal response to augmentation . There is partial compressibility of the upper right femoral vein and mid right femoral vein consis tent with partial deep venous thrombosis. The lower right femoral vein and popliteal vein demonstra te normal flow and compressibility. The left common femoral, femoral and popliteal veins are normally compressible throughout. Color fl ow demonstrates normal filling of the vessels. Normal waveforms are visualized and there is normal response to augmentation. IMPRESSION: 1. Partial thrombosis of the upper right femoral vein and mid right femoral vein. 2. Otherwise unremarkable bilateral lower extremity venous Doppler. RPTAT: QQ .Alan Cordero MD, Date Time Electronically viewed and signed by .Alan Cordero MD, MD on 07/27/2016 18:17 .R/
--- NOTE | 2016-07-27 18:32 | CONS ---
Date/Time of Note Date/Time of Note DATE: 07/27/16 TIME: 18:30 Assessment/Plan Assessment/Plan Additional Assessment/Plan Assessment/Plan Additional Assessment/Plan IMPRESSION: 1. Diarrhea. 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 Improved after Questran restarted. C. Diff negative.better 2. Diabetes mellitus. 3. Renal failure. 4. Coronary artery disease. 5. Hypertension. 6.pain lower extremity, 7.rt common femoral artery pseudo aneurysm,rt FV dvt Plan continue Questran vascular intervention as per vascular surgeon,today Consultation Date/Type/Reason Admit Date/Time Jul 11, 2016 at 12:19 Type of Consultation: nephrology 24 HR Interval Summary Constitutional: improved Exam/Review of Systems Vital Signs Vitals Vital Signs Date Time Temp Pulse Resp B/P Pulse Ox O2 Delivery O2 Flow Rate FiO2 07/27/16 18:00 97 147/111 99 07/27/16 18:00 Room Air 07/27/16 16:00 98.5 07/27/16 14:30 14 07/25/16 16:19 2.0 Intake and Output 07/26/16 07/26/16 07/27/16 15:00 23:00 07:00 Intake Total 120 ml 1000 ml Output Total 10 ml Balance 120 ml 990 ml Exam Constitutional: alert, oriented, well developed Psych: nl mood/affect, no complaints Head: atraumatic, normocephalic Eyes: EOMI, PERRL, nl conjunctiva, nl lids, nl sclera ENMT: nl external ears & nose, nl lips & teeth, nl nasal mucosa & septum Neck: non-tender, supple Respiratory: clear to auscultation, normal air movement Cardiovascular: nl pulses, regular rate and rhythm Gastrointestinal: nl liver, spleen, non-tender, soft Musculoskeletal: nl extremities to inspection, nl gait and stance Extremities: normal pulses 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: NURSE COORDINATOR II-XII intact, nl mental status, nl speech, nl strength Skin: nl turgor, No rash or lesions Lymph: nl lymph nodes Results Result Diagram: 07/27/16 1625 07/27/16 0750 Results 24 hrs Laboratory Tests Test 07/26/16 19:57 07/26/16 22:46 07/27/16 05:15 07/27/16 07:50 Bedside Glucose 88 117 Basophils # 0.0 Basophils % 0.2 Blood Morphology Comment Eosinophils # 0.4 Eosinophils % 5.5 Hematocrit 24.5 #L Hemoglobin 8.3 L Lymphocytes # 0.9 Lymphocytes % 12.9 L Mean Corpuscular Hemoglobin 31.1 Mean Corpuscular Hemoglobin Concent 33.8 Mean Corpuscular Volume 92.2 Mean Platelet Volume 9.5 Monocytes # 0.9 Monocytes % 12.2 H Neutrophils # 4.9 Neutrophils % 69.2 Nucleated Red Blood Cells # 0.0 Nucleated Red Blood Cells % 0.0 Platelet Count 177 Red Blood Count 2.66 #L Red Cell Distribution Width 16.1 H White Blood Count 7.1 Alanine Aminotransferase (ALT/SGPT) 89 H Albumin 3.6 Albumin/Globulin Ratio 1.33 Alkaline Phosphatase 240 H Anion Gap 20 H Aspartate Amino Transf (AST/SGOT) 44 Blood Urea Nitrogen 43 H Calcium Level 7.3 L Carbon Dioxide Level 26 Chloride Level 96 L Creatinine 5.43 H Direct Bilirubin 0.00 Globulin 2.70 Glucose Level 292 H Indirect Bilirubin 0.5 Potassium Level 5.2 H Sodium Level 137 Total Bilirubin 0.5 Total Protein 6.3 Test 07/27/16 08:38 07/27/16 11:33 07/27/16 14:19 07/27/16 14:30 Bedside Glucose 270 H 225 H Arterial Blood HCO3 22.9 Arterial Blood Base Excess -1.5 Arterial Blood Oxygen Saturation 93.4 L Dick Test N/A Arterial Blood Gas Puncture Site Right Brachial Arterial Blood Carboxyhemoglobin 0.3 Arterial Blood Date Drawn 07/27/2016 2:45:51 PM Arterial Blood Methemoglobin 0.3 Arterial Blood pCO2 (Temp correct) 37.6 Arterial Blood pH (Temp corrected) 7.403 Arterial Blood pO2 (Temp corrected) 72.3 L Blood Gas A-a O2 Differential 32.4 H Blood Gas Modality ROOM AIR Blood Gas Notified Time 07/27/2016 2:52:44 PM Blood Gas Notified Whom TM Blood Gas Specimen Source Blood arterial Blood Gas Temperature 37.0 FiO2 21.0 Oxyhemoglobin Percent 92.8 L Total Hemoglobin 10.8 L Basophils # 0.0 Basophils % 0.5 Blood Morphology Comment Eosinophils # 0.6 H Eosinophils % 7.1 H Hematocrit 29.7 #L Hemoglobin 10.0 #L Lymphocytes # 0.9 Lymphocytes % 11.3 L Mean Corpuscular Hemoglobin 31.0 Mean Corpuscular Hemoglobin Concent 33.8 Mean Corpuscular Volume 91.8 Mean Platelet Volume 9.5 Monocytes # 0.9 Monocytes % 11.5 H Neutrophils # 5.6 Neutrophils % 69.6 Nucleated Red Blood Cells # 0.0 Nucleated Red Blood Cells % 0.0 Platelet Count 200 Red Blood Count 3.24 #L Red Cell Distribution Width 15.7 H White Blood Count 8.1 Test 07/27/16 14:50 07/27/16 16:25 Activated Partial Thromboplast Time 34.3 INR International Normalized Ratio 1.15 Prothrombin Time 14.7 H Prothrombin Time Ratio 1.1 Hematocrit 29.2 L Hemoglobin 9.8 L Medications Medications Current Medications Diphenhydramine HCl (Benadryl) 50 mg Q6H PRN IV ITCHING Last administered on 10:40; Admin Dose 50 MG; Start 07/09/16 at 17:00 Non-Formulary Medication (Non-Formulary Insulin) INSULIN PUMP see la... [id number] Last administered on 07/26/16 13:40; Admin Dose 5 UNIT; Start 07/09/16 at 19:45 Non-Formulary Medication (Non-Formulary Insulin) INSULIN PUMP see la... HS SC Last administered on 07/25/16 23:50; Admin Dose 3 UNIT; Start 07/09/16 at 21:00 Miscellaneous Information 1 ea NOTE XX ; Start 07/09/16 at 18:30 Glucose (Glutose) 15 gm Q15M PRN PO DECREASED GLUCOSE; Start 07/09/16 at 18:30 Glucose (Glutose) 22.5 gm Q15M PRN PO DECREASED GLUCOSE; Start 07/09/16 at 18: 30 Dextrose (D50w Syringe) 25 ml Q15M PRN IV DECREASED GLUCOSE Last administered on 07/25/16 17:08; Admin Dose 25 ML; Start 07/09/16 at 18:30 Dextrose (D50w Syringe) 50 ml Q15M PRN IV DECREASED GLUCOSE Last administered on 07/19/16 20:58; Admin Dose 50 ML; Start 07/09/16 at 18:30 Glucagon (Glucagen) 1 mg Q15M PRN IM DECREASED GLUCOSE; Start 07/09/16 at 18:30 Glucose (Glutose) 15 gm Q15M PRN BUCCAL DECREASED GLUCOSE; Start 07/09/16 at 18 :30 Aspirin (Halfprin) 81 mg DAILY PO Last administered on 07/27/16 09:54; Admin Dose 81 MG; Start 07/10/16 at 09:00 Atorvastatin Calcium (Lipitor) 80 mg QHS PO Last administered on 07/26/16 20: 50; Admin Dose 80 MG; Start 07/10/16 at 21:00 Clonidine (Catapres) 0.1 mg Q6 PO Last administered on 07/27/16 11:32; Admin Dose 0.1 MG; Start 07/10/16 at 12:00 Isosorbide Mononitrate (Imdur) 60 mg DAILY PO Last administered on 07/27/16 09 :54; Admin Dose 60 MG; Start 07/10/16 at 10:00 Lactobacillus Acidoph/Bulgaricus (Floranex) 1 tab TID PO Last administered on 12:53; Admin Dose 1 TAB; Start 07/10/16 at 09:00 Metoprolol Succinate (Toprol Xl) 50 mg BID PO Last administered on 07/27/16 09 :54; Admin Dose 50 MG; Start 07/10/16 at 10:00 Prasugrel (Effient) 10 mg DAILY PO Last administered on 07/27/16 09:53; Admin Dose 10 MG; Start 07/10/16 at 10:30 Acetaminophen (Tylenol Tab) 500 mg Q4H PRN PO PAIN AND OR ELEVATED TEMP; Start 07/10/16 at 09:00 Cholestyramine Resin (Questran Light) 4 gm BID PO Last administered on 20:50; Admin Dose 4 GM; Start 07/11/16 at 09:00 Gabapentin (Neurontin) 600 mg TID PO Last administered on 07/27/16 12:53; Admin Dose 600 MG; Start 07/14/16 at 21:00 Pantoprazole (Protonix Tab) 40 mg DAILY@06 PO Last administered on 07/27/16 05 :52; Admin Dose 40 MG; Start 07/16/16 at 06:00 Ondansetron HCl (Zofran Inj) 4 mg Q4H PRN IV NAUSEA AND/OR VOMITING; Start 07/21 at 16:30 Calcitriol (Rocaltrol) 0.5 mcg DAILY PO Last administered on 07/27/16 09:53; Admin Dose 0.5 MCG; Start 07/24/16 at 10:00 Ondansetron HCl (Zofran Inj) 4 mg Q4H PRN IV NAUSEA AND/OR VOMITING; Start 03/31 at 16:00 Hydromorphone HCl (Dilaudid) 1.5 mg Q3 PRN IV PAIN Last administered on 13:43; Admin Dose 1.5 MG; Start 07/25/16 at 18:30 NIYAH REED MD Jul 27, 2016 18:31
--- NOTE | 2016-07-27 18:43 | RADRPT ---
PROCEDURE: US Lower extremity Arteries. CLINICAL INDICATION: Common femoral artery pseudoaneurysm. TECHNIQUE: Multiple longitudinal and transverse images of the right lower extremity arteries were obtained with freeman scale and color Doppler imaging. COMPARISON: Ultrasound dated 07/26/2016 FINDINGS: Saccular pseudoaneurysm arising from the right common femoral artery measures 2.9 x 2.2 cm, unchange d from previous exam. Blood flow without thrombus is seen in the pseudoaneurysm sac. Neck of the pseudoaneurysm measures 5 mm, unchanged. Normal arterial blood flow is otherwise seen throughout the right lower extremity. IMPRESSION: 1. 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 RPTAT: QQ .Jaguar Ernandez MD, Date Time Electronically viewed and signed by .Jaguar Ernandez MD, on 07/27/2016 18:43 .M/
--- NOTE | 2016-07-27 18:55 | CONS ---
Date/Time of Note Date/Time of Note DATE: 07/27/16 TIME: 18:52 Assessment/Plan Assessment/Plan Problems: (1) Paresthesia Status: Acute (2) Swelling Status: Acute (3) Headache Status: Acute (4) Sinusitis Status: Acute (5) Paresthesias Status: Acute (6) Leg cramp Status: Acute (7) Presence of suprapubic catheter Status: Acute (8) Obstruction of suprapubic catheter Status: Acute (9) Complication of Foster catheter Status: Acute (10) Acute weakness Status: Acute (11) Moderate nausea Status: Acute (12) Hypocalcemia Status: Acute (13) UTI (urinary tract infection) Status: Acute (14) Hypocalcemia Status: Chronic (15) Diabetic ketoacidosis Status: Resolved (16) Dialysis patient Status: Chronic (17) Genitourinary symptoms Status: Acute (18) Hyperkalemia Status: Acute (19) Constipation Status: Acute (20) Hyperkalemia, diminished renal excretion Status: Acute (21) Abdominal pain Status: Acute (22) Retention of urine Status: Acute (23) Diarrhea Status: Acute (24) Nausea Status: Acute (25) Vomiting Status: Acute (26) Diabetes mellitus type 1, controlled, with complications Status: Chronic (27) Chronic pain Status: Chronic (28) 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, with long- term current use of insulin Status: Chronic (29) Chronic renal insufficiency Status: Chronic (30) Peripheral vascular disease (31) HTN (hypertension) Status: Chronic (32) DM (diabetes mellitus) type 1 with ketoacidosis Status: Acute (33) CKD (chronic kidney disease) stage 5, GFR less than 15 ml/min Status: Chronic (34) Type 1 diabetes mellitus with diabetic nephropathy Status: Chronic (35) End stage renal failure on dialysis Status: Chronic (36) Shunt malfunction Status: Acute Additional Assessment/Plan Patient with Right FA pseudo aneurysm going for epair open with femoral vein ext Pt is MOderate cardiac risk for MOd risk vascular surgery. Medically stable for surgery. Medically optimal at this time. Denies any CP or SOB Will /fu Consultation Date/Type/Reason Admit Date/Time Jul 11, 2016 at 12:19 Date of Consultation: Jul 27, 2016 Type of Consultation: Cardiovascular Consutaiton. Reason for Consultation Pre OP Hx of Present Illness Ephraim is known to me , He has PCI of LAD and PAD. 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 called in for pre op today by Amina. Constitutional: improved Eyes: no complaints ENT: no complaints Respiratory: no complaints Cardiovascular: no complaints Gastrointestinal: no complaints Genitourinary: no complaints Musculoskeletal: no complaints Skin: no complaints Neurologic: no complaints Endocrine: no complaints Lymphatic: no complaints Psychological: nl mood/affect, no complaints Immunologic: no complaints Past Surgical History Past Surgical Hx: other Social History Smoking Status: Former smoker Exam/Review of Systems Vital Signs Vitals Vital Signs Date Time Temp Pulse Resp B/P Pulse Ox O2 Delivery O2 Flow Rate FiO2 07/27/16 18:30 90 18 07/27/16 18:00 147/111 99 07/27/16 18:00 Room Air 07/27/16 16:00 98.5 07/25/16 16:19 2.0 Intake and Output 07/26/16 07/26/16 07/27/16 15:00 23:00 07:00 Intake Total 120 ml 1000 ml Output Total 10 ml Balance 120 ml 990 ml Exam Constitutional: alert, oriented Psych: no complaints Head: normocephalic Eyes: nl conjunctiva ENMT: nl external ears & nose Neck: supple Respiratory: clear to auscultation Cardiovascular: regular rate and rhythm Gastrointestinal: soft Results Result Diagram: 07/27/16 1625 07/27/16 0750 Results 24 hrs Laboratory Tests Test 07/26/16 19:57 07/26/16 22:46 07/27/16 05:15 07/27/16 07:50 Bedside Glucose 88 117 Basophils # 0.0 Basophils % 0.2 Blood Morphology Comment Eosinophils # 0.4 Eosinophils % 5.5 Hematocrit 24.5 #L Hemoglobin 8.3 L Lymphocytes # 0.9 Lymphocytes % 12.9 L Mean Corpuscular Hemoglobin 31.1 Mean Corpuscular Hemoglobin Concent 33.8 Mean Corpuscular Volume 92.2 Mean Platelet Volume 9.5 Monocytes # 0.9 Monocytes % 12.2 H Neutrophils # 4.9 Neutrophils % 69.2 Nucleated Red Blood Cells # 0.0 Nucleated Red Blood Cells % 0.0 Platelet Count 177 Red Blood Count 2.66 #L Red Cell Distribution Width 16.1 H White Blood Count 7.1 Alanine Aminotransferase (ALT/SGPT) 89 H Albumin 3.6 Albumin/Globulin Ratio 1.33 Alkaline Phosphatase 240 H Anion Gap 20 H Aspartate Amino Transf (AST/SGOT) 44 Blood Urea Nitrogen 43 H Calcium Level 7.3 L Carbon Dioxide Level 26 Chloride Level 96 L Creatinine 5.43 H Direct Bilirubin 0.00 Globulin 2.70 Glucose Level 292 H Indirect Bilirubin 0.5 Potassium Level 5.2 H Sodium Level 137 Total Bilirubin 0.5 Total Protein 6.3 Test 07/27/16 08:38 07/27/16 11:33 07/27/16 14:19 07/27/16 14:30 Bedside Glucose 270 H 225 H Arterial Blood HCO3 22.9 Arterial Blood Base Excess -1.5 Arterial Blood Oxygen Saturation 93.4 L Dick Test N/A Arterial Blood Gas Puncture Site Right Brachial Arterial Blood Carboxyhemoglobin 0.3 Arterial Blood Date Drawn 07/27/2016 2:45:51 PM Arterial Blood Methemoglobin 0.3 Arterial Blood pCO2 (Temp correct) 37.6 Arterial Blood pH (Temp corrected) 7.403 Arterial Blood pO2 (Temp corrected) 72.3 L Blood Gas A-a O2 Differential 32.4 H Blood Gas Modality ROOM AIR Blood Gas Notified Time 07/27/2016 2:52:44 PM Blood Gas Notified Whom TM Blood Gas Specimen Source Blood arterial Blood Gas Temperature 37.0 FiO2 21.0 Oxyhemoglobin Percent 92.8 L Total Hemoglobin 10.8 L Basophils # 0.0 Basophils % 0.5 Blood Morphology Comment Eosinophils # 0.6 H Eosinophils % 7.1 H Hematocrit 29.7 #L Hemoglobin 10.0 #L Lymphocytes # 0.9 Lymphocytes % 11.3 L Mean Corpuscular Hemoglobin 31.0 Mean Corpuscular Hemoglobin Concent 33.8 Mean Corpuscular Volume 91.8 Mean Platelet Volume 9.5 Monocytes # 0.9 Monocytes % 11.5 H Neutrophils # 5.6 Neutrophils % 69.6 Nucleated Red Blood Cells # 0.0 Nucleated Red Blood Cells % 0.0 Platelet Count 200 Red Blood Count 3.24 #L Red Cell Distribution Width 15.7 H White Blood Count 8.1 Test 07/27/16 14:50 07/27/16 16:25 Activated Partial Thromboplast Time 34.3 INR International Normalized Ratio 1.15 Prothrombin Time 14.7 H Prothrombin Time Ratio 1.1 Hematocrit 29.2 L Hemoglobin 9.8 L Medications Medications Current Medications Diphenhydramine HCl (Benadryl) 50 mg Q6H PRN IV ITCHING Last administered on 10:40; Admin Dose 50 MG; Start 07/09/16 at 17:00 Non-Formulary Medication (Non-Formulary Insulin) INSULIN PUMP see la... [id number] Last administered on 07/26/16 13:40; Admin Dose 5 UNIT; Start 07/09/16 at 19:45 Non-Formulary Medication (Non-Formulary Insulin) INSULIN PUMP see la... HS SC Last administered on 07/25/16 23:50; Admin Dose 3 UNIT; Start 07/09/16 at 21:00 Miscellaneous Information 1 ea NOTE XX ; Start 07/09/16 at 18:30 Glucose (Glutose) 15 gm Q15M PRN PO DECREASED GLUCOSE; Start 07/09/16 at 18:30 Glucose (Glutose) 22.5 gm Q15M PRN PO DECREASED GLUCOSE; Start 07/09/16 at 18: 30 Dextrose (D50w Syringe) 25 ml Q15M PRN IV DECREASED GLUCOSE Last administered on 07/25/16 17:08; Admin Dose 25 ML; Start 07/09/16 at 18:30 Dextrose (D50w Syringe) 50 ml Q15M PRN IV DECREASED GLUCOSE Last administered on 07/19/16 20:58; Admin Dose 50 ML; Start 07/09/16 at 18:30 Glucagon (Glucagen) 1 mg Q15M PRN IM DECREASED GLUCOSE; Start 07/09/16 at 18:30 Glucose (Glutose) 15 gm Q15M PRN BUCCAL DECREASED GLUCOSE; Start 07/09/16 at 18 :30 Aspirin (Halfprin) 81 mg DAILY PO Last administered on 07/27/16 09:54; Admin Dose 81 MG; Start 07/10/16 at 09:00 Atorvastatin Calcium (Lipitor) 80 mg QHS PO Last administered on 07/26/16 20: 50; Admin Dose 80 MG; Start 07/10/16 at 21:00 Clonidine (Catapres) 0.1 mg Q6 PO Last administered on 07/27/16 11:32; Admin Dose 0.1 MG; Start 07/10/16 at 12:00 Isosorbide Mononitrate (Imdur) 60 mg DAILY PO Last administered on 07/27/16 09 :54; Admin Dose 60 MG; Start 07/10/16 at 10:00 Lactobacillus Acidoph/Bulgaricus (Floranex) 1 tab TID PO Last administered on 12:53; Admin Dose 1 TAB; Start 07/10/16 at 09:00 Metoprolol Succinate (Toprol Xl) 50 mg BID PO Last administered on 07/27/16 09 :54; Admin Dose 50 MG; Start 07/10/16 at 10:00 Prasugrel (Effient) 10 mg DAILY PO Last administered on 07/27/16 09:53; Admin Dose 10 MG; Start 07/10/16 at 10:30 Acetaminophen (Tylenol Tab) 500 mg Q4H PRN PO PAIN AND OR ELEVATED TEMP; Start 07/10/16 at 09:00 Cholestyramine Resin (Questran Light) 4 gm BID PO Last administered on 20:50; Admin Dose 4 GM; Start 07/11/16 at 09:00 Gabapentin (Neurontin) 600 mg TID PO Last administered on 07/27/16 12:53; Admin Dose 600 MG; Start 07/14/16 at 21:00 Pantoprazole (Protonix Tab) 40 mg DAILY@06 PO Last administered on 07/27/16 05 :52; Admin Dose 40 MG; Start 07/16/16 at 06:00 Ondansetron HCl (Zofran Inj) 4 mg Q4H PRN IV NAUSEA AND/OR VOMITING; Start 07/21 at 16:30 Calcitriol (Rocaltrol) 0.5 mcg DAILY PO Last administered on 07/27/16 09:53; Admin Dose 0.5 MCG; Start 07/24/16 at 10:00 Ondansetron HCl (Zofran Inj) 4 mg Q4H PRN IV NAUSEA AND/OR VOMITING; Start 03/31 at 16:00 Hydromorphone HCl (Dilaudid) 1.5 mg Q3 PRN IV PAIN Last administered on 13:43; Admin Dose 1.5 MG; Start 07/25/16 at 18:30 CYNDIE GARCIA MD Jul 27, 2016 18:54
[2016-07-27] MEDS ORDERED: PROTAMINE 250 MG INJ ONE (19:25)
[2016-07-27] MEDS ORDERED: SODIUM CL BACTERIOSTATIC 30 ML INJ ONE (19:25)
[2016-07-27] MEDS ORDERED: POVIDONE IODINE 10% 28.4 GM OINT ONE (19:26)
[2016-07-27] MEDS ORDERED: HEPARIN 1000 UNITS/ML 10 ML INJ ONE (19:26)
[2016-07-27] MEDS ORDERED: VANCOMYCIN 1 GM INJ ONE (19:27)
[2016-07-27] MEDS ORDERED: IOHEXOL 300MG/ML 30 ML BTL ONE (19:27)
[2016-07-27] MEDS ORDERED: THROMBIN 5000 UNIT VIAL ONE (19:27)
[2016-07-27] MEDS ORDERED: ETOMIDATE 20 MG INJ ONE (19:37)
[2016-07-27] MEDS ORDERED: ROCURONIUM 50 MG INJ ONE (19:38)
[2016-07-27] MEDS ORDERED: PHENYLephrine (100 MCG/ML) 5ML SYG ONE (19:40)
[2016-07-27] MEDS ORDERED: VANCOMYCIN 1 GM (PMX) 250 ML ONE (19:47)
[2016-07-27] MEDS ORDERED: NORepinephrine 8MG/250 ML (PMX 250 ML IV ONE (20:30)
[2016-07-27] MEDS ORDERED: PHENYLephrine 20MG IN 250 ML 250 ML IV ONE (20:30)
[2016-07-27] MEDS ORDERED: DEXTRAN-40 10%/D5W 500 ML, HEPARIN 1,000 UNIT, PAPAVERINE 120 MG IV SCH ×3 (20:30)
[2016-07-27] MEDS ORDERED: HEPARIN (10000 UNITS/ML) 10,000 UNIT, MILRINONE LACTATE 10 MG in SOD CHLORIDE 0.9% 1,00... SC ONE (20:30)
[2016-07-27] MEDS ORDERED: ASPIRIN 600 MG SUPP PR ONE (20:30)
[2016-07-27] MEDS ORDERED: MILRINONE LACTATE 2 MG in SOD CHLORIDE 0.9% 50 ML IV ONE (20:30)
[2016-07-27] MEDS ORDERED: INSULIN REGULAR, HUMAN 100 UNIT in SOD CHLORIDE 0.9% 99 ML IV SCH ×2 (21:00)
[2016-07-27] MEDS ORDERED: PHENYLephrine 20MG IN 250 ML 250 ML IV SCH (21:00)
[2016-07-27] MEDS ORDERED: EPINEPHrine 4 MG in DEXTROSE 5% 246 ML IV SCH (21:00)
[2016-07-27] MEDS ORDERED: HEPARIN 5,000 UNIT/0.5 ML SYG SC SCH (21:00)
[2016-07-27] MEDS ORDERED: HYDROmorphONE 2 MG/ML SYG ONE (21:23)
[2016-07-27] MEDS ORDERED: GELATIN SIZE 100 SPONGE ONE (21:59)
[2016-07-27] MEDS ORDERED: BUPIVACAINE 0.25%/EPI (SDV) 30 ML INJ ONE (22:28)
[2016-07-27] MEDS ORDERED: LABETALOL HCL 20MG INJ IV PRN (22:30)
[2016-07-27] MEDS ORDERED: MEPERIDINE 25 MG INJ IV PRN (22:30)
[2016-07-27] MEDS ORDERED: EPHEDrine SULFATE 50 MG/5 ML SYG IV PRN (22:30)
[2016-07-27] MEDS ORDERED: ONDANSETRON 4 MG INJ IV PRN (22:30)
[2016-07-27] MEDS ORDERED: hydrALAzine 20 MG INJ IV PRN (22:30)
[2016-07-27] MEDS ORDERED: METOCLOPRAMIDE 10 MG INJ IV PRN (22:30)
[2016-07-27] MEDS ORDERED: INSULIN ASPART [NOVOLOG] 3 ML PEN SC ONE (22:30)
[2016-07-27] MEDS ORDERED: DIPHENHYDRAMINE 50 MG INJ IV PRN (22:30)
[2016-07-27] MEDS ORDERED: HYDROmorphONE 1 MG/ML SYG IV PRN ×4 (22:30→23:30)
[2016-07-27] MEDS ORDERED: BUPIVACAINE 0.25%/EPI (SDV) 30 ML INJ INJ ONE (22:40)
[2016-07-27] MEDS: ATORVASTATIN 80 MG TAB PO SCH (23:56)
[2016-07-28] VITALS (37 sets, daily range): BP systolic 94–173; BP diastolic 50–116; PULSE 84–105; RESP 8–28
[2016-07-28] MEDS: HYDROmorphONE 2 MG/ML SYG IV PRN ×7 (02:32→21:40)
--- NOTE | 2016-07-28 02:37 | OPR ---
DATE OF OPERATION: 07/27/2016 SURGEON: Joe Byrnes MD PREOPERATIVE DIAGNOSIS: Right common femoral artery pseudoaneurysm. POSTOPERATIVE DIAGNOSIS: Right common femoral artery pseudoaneurysm. OPERATION PERFORMED: 1. Exploration of right common femoral artery. 2. Control of bleeding of the right common femoral artery. 3. Removal of Angio-Seal closure device. ANESTHESIA: LMA. COMPLICATIONS: None. ESTIMATED BLOOD LOSS: 450 mL. TRANSFUSIONS: 1 unit of packed red blood cells. SPECIMEN: Aneurysmal sac and Angio-Seal closure device. INDICATIONS: This is a 50-year-old gentleman with history of end-stage renal disease and diabetes i n the left lower extremities, stable and claudication in which he had undergone angiogram with lower extremity intervention. Post-procedure, the patient had developed right groin pain and discomfort. Upon ultrasound evaluation and CT angiogram, it was identified the patient having a pseudoaneurys m. In addition, the patient had developed a right common femoral vein DVT. Patient was started on a heparin drip and patient had chosen to proceed with controlled bleeding and puncture site closure. The patient was discussed the risks, benefits and alternatives to the procedure, and risks were di scussed with the patient, not limited to , [place], pneumonia, stroke, infection, thrombosis, nerve injury, limb loss, nephrotoxicity, bleeding, infection, and redo surgery and patient elected to unde rgo intervention. DESCRIPTION OF PROCEDURE: The patient was brought to the operating room table and placed in supine position. The arms were placed in 80 degrees. All bony prominences were padded. Anesthesia team h ad placed appropriate lines and general anesthesia was induced. The patient tolerated that well. A t this point, timeout and the appropriate site was marked and confirmed. Patient's right lower abdo men and right lower extremity were then circumferentially prepped and draped in the usual standard s terile fashion. Preoperative antibiotics were administered. A longitudinal incision was then made over the right common femoral artery plane. Incision was deep ened through subcutaneous tissue with electrocautery and sharp dissection. Attention was paid to av oid lymphatics and encountered lymphatics were ligated and divided. The distal external iliac arter y was then exposed and sharply dissected. At this point, we then exposed the proximal superficial f emoral artery and profunda femoral arteries. Once we had adequate exposure for control, we then nico t ahead and explored the area of the pseudoaneurysm. At this point, we went ahead and dissected ove r the pseudoaneurysm and the patient was already on intravenous heparin. An additional 2000 units i ntravenously was given. At this point, clamps were placed on superficial femoral artery, profunda f emoral artery and distal external iliac artery and aneurysm sac was opened. The area of the closure device was identified and seemed to have been within the aneurysmal sac. The closure device was re moved and the aneurysmal sac was excised. Using 6-0 Prolene suture, the puncture site was repaired. The common femoral artery was explored circumferentially and no other areas were identified to be bleeding. At this point, using a Doppler, there was adequate triphasic flow through the common femo ral artery, superficial femoral artery and profunda femoral artery. We then checked the common femo ral vein; there was adequate flow through that as well. No thrombus was identified on palpation of the vein or with ultrasound evaluation. At this point, adequate hemostasis was achieved, and the wo und was irrigated with antibiotic solution. We went ahead and closed the deep fascia with 3-0 Prolene suture. The superficial fascia was also c losed with 3-0 Prolene suture. We went ahead and placed interrupted 3-0 Vicryl sutures in the derma l layer. Skin jaida were applied. A Prevena wound VAC was then placed on the groin. Settings we re set at 125 mmHg continuous high intensity. Patient tolerated procedure well and was taken back t o the intensive care unit. All instruments, sponges, needles and catheters were correct x2. Dictated By: JOE BLISS/SERGO Conf#: [id number] DID#: [id number]
[2016-07-28 03:59] LABS: BASOPHILS % 0.5 % (0.0-2.0); EOSINOPHILS # 0.4 10^3/ul (0.0-0.5); HEMATOCRIT 29.1 % (42.0-52.0); HEMOGLOBIN 9.7 g/dl (14.0-18.0); LYMPHOCYTES # 1.1 10^3/ul (0.8-2.9); MEAN CORPUSCULAR HEMOGLOBIN 30.5 pg (29.0-33.0); MEAN CORPUSCULAR HGB CONC 33.4 g/dl (32.0-37.0); MEAN CORPUSCULAR VOLUME 91.2 fl (82.0-101.0); MEAN PLATELET VOLUME 9.6 fl (7.4-10.4); MONOCYTE # 0.8 10^3/ul (0.3-0.9); MONOCYTES % 9.1 % (0.0-11.0); NEUTROPHIL # 6.1 10^3/ul (1.6-7.5); NEUTROPHILS % 72.4 % (39.0-77.0); PLATELET COUNT 189 10^3/UL (140-440); RED BLOOD COUNT 3.19 10^6/ul (4.70-6.10); RED CELL DISTRIBUTION WIDTH 16.9 % (11.5-14.5); UNCORRECTED WBC 8.4 10^3/ul (4.8-10.8); WHITE BLOOD COUNT 8.4 10^3/ul (4.8-10.8)
[2016-07-28 04:12] LABS: ALBUMIN 3.4 g/dl (3.3-4.9); POTASSIUM 4.2 mmol/L (3.5-5.1)
[2016-07-28 04:14] LABS: BILIRUBIN,INDIRECT 0.3 mg/dl (0-1.1); BILIRUBIN,TOTAL 0.3 mg/dl (0.2-1.3); CREATININE 5.12 mg/dl (0.61-1.24)
[2016-07-28 04:15] LABS: ALBUMIN/GLOBULIN RATIO 1.41; TOTAL PROTEIN 5.8 g/dl (6.1-8.1)
[2016-07-28 04:16] LABS: CALCIUM 7.5 mg/dl (8.4-10.2)
[2016-07-28 04:55] LABS: CONDITION 1; LH ANALYZER COMMENTS 1
[2016-07-28] MEDS: DIPHENHYDRAMINE 50 MG INJ IV SCH ×3 (05:41→18:07)
[2016-07-28] MEDS: PANTOPRAZOLE (EC) 40 MG TAB PO SCH (05:50)
[2016-07-28] MEDS: LACTOBACILLUS CHEW TAB PO SCH ×3 (08:51→21:20)
[2016-07-28] MEDS: METOPROLOL (XL) 50 MG TAB PO SCH ×2 (08:51→22:34)
[2016-07-28] MEDS: SEVELAMER 800 MG TAB PO SCH ×3 (08:51→18:03)
[2016-07-28] MEDS: ISOSORBIDE MONONITRATE(SR)60 MG TAB PO SCH (08:51)
[2016-07-28] MEDS: PRASUGREL HYDROCHLORIDE 10 MG TABLET PO SCH (08:52)
[2016-07-28] MEDS: CALCITRIOL 0.25 MCG CAP PO SCH (08:52)
[2016-07-28] MEDS: CALCIUM ACETATE 667 MG CAP PO SCH ×3 (08:52→18:03)
[2016-07-28] MEDS: ASPIRIN (EC) 81 MG TAB PO SCH (08:52)
[2016-07-28] MEDS: GABAPENTIN 300 MG CAP PO SCH ×3 (08:52→21:20)
[2016-07-28] MEDS: CHOLESTYRAMINE (LIGHT) 4 GM PACKET PO SCH ×2 (10:00→21:00)
--- NOTE | 2016-07-28 10:04 | CONS ---
Date/Time of Note Date/Time of Note DATE: 07/28/16 TIME: 10:00 Assessment/Plan Assessment/Plan Chief Complaint/Hosp Course #1 end-stage renal disease, on maintenance hemodialysis Thursday. Will order hemodialysis for tomorrow . #2 bilateral foot pain.He has a high grade stenosis in the L superfiscial femoral artery and other diffuse ASCVD , vascular W/U is in progress . He had an angioplasty and stent placement 2 days ago on L leg and he now has good pulses in his L foot . #3 anemia. H/H is stable from yesterday . Probably due to bleeding into R groin . #4 hyperkalemia . He is taking Veltassa for elevated K . He is on increased dose of the the Veltassa to 16.8 gm a day .potassium seems to be coming under control . #5 pseudoaneurysm of R femoral artery for which he had surgery last night . Problems: Consultation Date/Type/Reason Admit Date/Time Jul 11, 2016 at 12:19 Type of Consultation: Cardiovascular Consutaiton. 24 HR Interval Summary Free Text/Dictation The patient is in the ICU . He is 1 day post op a R groin surgery to repair a pseudoaneurysm of RT superficial femoral artery . Constitutional: no complaints Exam/Review of Systems Vital Signs Vitals Vital Signs Date Time Temp Pulse Resp B/P Pulse Ox O2 Delivery O2 Flow Rate FiO2 07/28/16 09:30 99 22 124/77 91 07/28/16 09:00 Room Air 07/28/16 08:00 99.1 07/25/16 16:19 2.0 Intake and Output 07/27/16 07/27/16 07/28/16 15:00 23:00 07:00 Intake Total 500 ml 1400.0 ml 212.5 ml Output Total 500 ml 3450 ml 0 ml Balance 0 ml -2050.0 ml 212.5 ml Exam Constitutional: alert, oriented Psych: no complaints Respiratory: clear to auscultation, normal air movement Cardiovascular: regular rate and rhythm Gastrointestinal: soft Musculoskeletal: nl extremities to inspection Results Result Diagram: 07/28/16 0345 07/28/16 0345 Results 24 hrs Laboratory Tests Test 07/27/16 11:33 07/27/16 14:19 07/27/16 14:30 07/27/16 14:50 Bedside Glucose 225 H Arterial Blood HCO3 22.9 Arterial Blood Base Excess -1.5 Arterial Blood Oxygen Saturation 93.4 L Dick Test N/A Arterial Blood Gas Puncture Site Right Brachial Arterial Blood Carboxyhemoglobin 0.3 Arterial Blood Date Drawn 07/27/2016 2:45:51 PM Arterial Blood Methemoglobin 0.3 Arterial Blood pCO2 (Temp correct) 37.6 Arterial Blood pH (Temp corrected) 7.403 Arterial Blood pO2 (Temp corrected) 72.3 L Blood Gas A-a O2 Differential 32.4 H Blood Gas Modality ROOM AIR Blood Gas Notified Time 07/27/2016 2:52:44 PM Blood Gas Notified Whom TM Blood Gas Specimen Source Blood arterial Blood Gas Temperature 37.0 FiO2 21.0 Oxyhemoglobin Percent 92.8 L Total Hemoglobin 10.8 L Basophils # 0.0 Basophils % 0.5 Blood Morphology Comment Eosinophils # 0.6 H Eosinophils % 7.1 H Hematocrit 29.7 #L Hemoglobin 10.0 #L Lymphocytes # 0.9 Lymphocytes % 11.3 L Mean Corpuscular Hemoglobin 31.0 Mean Corpuscular Hemoglobin Concent 33.8 Mean Corpuscular Volume 91.8 Mean Platelet Volume 9.5 Monocytes # 0.9 Monocytes % 11.5 H Neutrophils # 5.6 Neutrophils % 69.6 Nucleated Red Blood Cells # 0.0 Nucleated Red Blood Cells % 0.0 Platelet Count 200 Red Blood Count 3.24 #L Red Cell Distribution Width 15.7 H White Blood Count 8.1 Activated Partial Thromboplast Time 34.3 INR International Normalized Ratio 1.15 Prothrombin Time 14.7 H Prothrombin Time Ratio 1.1 Test 07/27/16 16:25 07/27/16 19:32 07/27/16 20:03 07/27/16 23:02 Hematocrit 29.2 L Hemoglobin 9.8 L Activated Partial Thromboplast Time > 180.0 *H Bedside Glucose 135 171 Test 07/28/16 03:45 07/28/16 06:55 07/28/16 08:13 Activated Partial Thromboplast Time 126.1 *H 35.8 H Alanine Aminotransferase (ALT/SGPT) 78 H Albumin 3.4 Albumin/Globulin Ratio 1.41 Alkaline Phosphatase 221 H Anion Gap 21 H Aspartate Amino Transf (AST/SGOT) 45 Basophils # 0.0 Basophils % 0.5 Blood Morphology Comment Blood Urea Nitrogen 34 H Calcium Level 7.5 L Carbon Dioxide Level 26 Chloride Level 98 Creatinine 5.12 H Direct Bilirubin 0.00 Eosinophils # 0.4 Eosinophils % 5.0 Globulin 2.40 Glucose Level 278 H Hematocrit 29.1 L Hemoglobin 9.7 L Indirect Bilirubin 0.3 Lymphocytes # 1.1 Lymphocytes % 13.0 L Mean Corpuscular Hemoglobin 30.5 Mean Corpuscular Hemoglobin Concent 33.4 Mean Corpuscular Volume 91.2 Mean Platelet Volume 9.6 Monocytes # 0.8 Monocytes % 9.1 Neutrophils # 6.1 Neutrophils % 72.4 Nucleated Red Blood Cells # 0.0 Nucleated Red Blood Cells % 0.0 Platelet Count 189 Potassium Level 4.2 Red Blood Count 3.19 L Red Cell Distribution Width 16.9 H Sodium Level 141 Total Bilirubin 0.3 Total Protein 5.8 L White Blood Count 8.4 Bedside Glucose 166 Medications Medications Current Medications Diphenhydramine HCl (Benadryl) 50 mg Q6H PRN IV ITCHING Last administered on 23:38; Admin Dose 50 MG; Start 07/09/16 at 17:00 Non-Formulary Medication (Non-Formulary Insulin) INSULIN PUMP see la... [id number] Last administered on 07/28/16 07:00; Admin Dose 6 UNIT; Start 07/09/16 at 19:45 Non-Formulary Medication (Non-Formulary Insulin) INSULIN PUMP see la... HS SC Last administered on 07/25/16 23:50; Admin Dose 3 UNIT; Start 07/09/16 at 21:00 Miscellaneous Information 1 ea NOTE XX ; Start 07/09/16 at 18:30 Glucose (Glutose) 15 gm Q15M PRN PO DECREASED GLUCOSE; Start 07/09/16 at 18:30 Glucose (Glutose) 22.5 gm Q15M PRN PO DECREASED GLUCOSE; Start 07/09/16 at 18: 30 Dextrose (D50w Syringe) 25 ml Q15M PRN IV DECREASED GLUCOSE Last administered on 07/25/16 17:08; Admin Dose 25 ML; Start 07/09/16 at 18:30 Dextrose (D50w Syringe) 50 ml Q15M PRN IV DECREASED GLUCOSE Last administered on 07/19/16 20:58; Admin Dose 50 ML; Start 07/09/16 at 18:30 Glucagon (Glucagen) 1 mg Q15M PRN IM DECREASED GLUCOSE; Start 07/09/16 at 18:30 Glucose (Glutose) 15 gm Q15M PRN BUCCAL DECREASED GLUCOSE; Start 07/09/16 at 18 :30 Aspirin (Halfprin) 81 mg DAILY PO Last administered on 07/28/16 08:52; Admin Dose 81 MG; Start 07/10/16 at 09:00 Atorvastatin Calcium (Lipitor) 80 mg QHS PO Last administered on 07/27/16 23: 56; Admin Dose 80 MG; Start 07/10/16 at 21:00 Clonidine (Catapres) 0.1 mg Q6 PO Last administered on 07/28/16 05:50; Admin Dose 0.1 MG; Start 07/10/16 at 12:00 Isosorbide Mononitrate (Imdur) 60 mg DAILY PO Last administered on 07/28/16 08 :51; Admin Dose 60 MG; Start 07/10/16 at 10:00 Lactobacillus Acidoph/Bulgaricus (Floranex) 1 tab TID PO Last administered on 08:51; Admin Dose 1 TAB; Start 07/10/16 at 09:00 Metoprolol Succinate (Toprol Xl) 50 mg BID PO Last administered on 07/28/16 08 :51; Admin Dose 50 MG; Start 07/10/16 at 10:00 Prasugrel (Effient) 10 mg DAILY PO Last administered on 07/28/16 08:52; Admin Dose 10 MG; Start 07/10/16 at 10:30 Acetaminophen (Tylenol Tab) 500 mg Q4H PRN PO PAIN AND OR ELEVATED TEMP; Start 07/10/16 at 09:00 Cholestyramine Resin (Questran Light) 4 gm BID PO Last administered on 20:50; Admin Dose 4 GM; Start 07/11/16 at 09:00 Gabapentin (Neurontin) 600 mg TID PO Last administered on 07/28/16 08:52; Admin Dose 600 MG; Start 07/14/16 at 21:00 Pantoprazole (Protonix Tab) 40 mg DAILY@06 PO Last administered on 07/28/16 05 :50; Admin Dose 40 MG; Start 07/16/16 at 06:00 Calcitriol (Rocaltrol) 0.5 mcg DAILY PO Last administered on 07/28/16 08:52; Admin Dose 0.5 MCG; Start 07/24/16 at 10:00 Ondansetron HCl (Zofran Inj) 4 mg Q4H PRN IV NAUSEA AND/OR VOMITING; Start 03/31 at 16:00 Hydromorphone HCl (Dilaudid) 2 mg Q3H PRN IV PAIN Last administered on 08:57; Admin Dose 2 MG; Start 07/27/16 at 23:30 DONY HOWARD MD Jul 28, 2016 10:04
--- NOTE | 2016-07-28 12:24 | PN ---
Date/Time of Note Date/Time of Note DATE: 07/28/16 TIME: 12:20 Assessment/Plan VTE Prophylaxis VTE Prophylaxis Intervention: SCD's Lines/Catheters IV Catheter Type (from [facility]): portacath Urinary Cath still in place: No Assessment/Plan Chief Complaint/Hosp Course ASSESSMENT AND PLAN: 1. Diarrhea with recent history of Clostridium difficile colitis, resolved. Continue patient on vancomycin and Questran. Dr. Gomez is following in gastroenterology consultation 2. Dehydration secondary to diarrhea with recent history of Clostridium difficile colitis. Stool for C. difficile is negative. 3. Type 1 diabetes mellitus with diabetic nephropathy. Continue NovoLog per insulin pump. 4. End-stage renal disease, hemodialysis dependent. Dr. Hubbard is following the patient in nephrology consultation. Continue dialysis per nephrology. 5. Coronary artery disease. Continue Imdur and metoprolol. 6. Hypertension. 7. Bilateral lower extremities pain. Dr. Orosco is following and rheumatology consultation. 8. Lateral lower extremities atherosclerosis and left lower extremity disabling claudication. is following in vascular surgery consultation. S/P angio with LLE SFA severe stenosis. S/p Left femoral popliteal stenting on 07-25, s/p Exploration of right common femoral artery and control of bleeding on 07-27. Continue heparin for deep venous thrombosis prophylaxis and Pepcid for peptic ulcer disease prophylaxis. Further recommendations based on clinical course. Plan of care discussed with Dr. Roasles. Problems: Subjective 24 Hr Interval Summary Free Text/Dictation Patient is currently observed in intensive care unit status post vascular procedure on right lower extremity yesterday, patient is comfortable, pain is well controlled. Exam/Review of Systems Vital Signs Vitals Vital Signs Date Time Temp Pulse Resp B/P Pulse Ox O2 Delivery O2 Flow Rate FiO2 07/28/16 10:30 100 23 118/75 91 07/28/16 10:00 Room Air 07/28/16 08:00 99.1 07/25/16 16:19 2.0 Intake and Output 07/27/16 07/27/16 07/28/16 15:00 23:00 07:00 Intake Total 500 ml 1400.0 ml 212.5 ml Output Total 500 ml 3450 ml 0 ml Balance 0 ml -2050.0 ml 212.5 ml Exam GENERAL: Well-developed, well-nourished male, currently appears pale, awake, alert. HEENT: The patient has right eye prosthesis. Left pupil is equal, round, reactive to light and accommodation. NECK: Supple. No cervical lymphadenopathy, no thyromegaly. CHEST: Lungs clear bilaterally. There are no rhonchi, wheezes, rales noted. CARDIOVASCULAR: Normal S1, S2. No murmurs, gallops, clicks, rubs noted. ABDOMEN: Flat, soft, nondistended. The patient has generalized tenderness to epigastric tenderness on palpation. No guarding. EXTREMITIES: No edema, clubbing, cyanosis. Left upper extremity AV graft with a palpable thrill and audible bruit. Right lower extremity status post surgical intervention with intact dressing and wound VAC. SKIN: No rash, petechiae noted. NEUROLOGIC: The patient is awake, alert, and oriented x3. Results Result Diagram: 07/28/16 0345 07/28/16 0345 Results 24 hrs Laboratory Tests Test 07/27/16 14:19 07/27/16 14:30 07/27/16 14:50 07/27/16 16:25 Arterial Blood HCO3 22.9 Arterial Blood Base Excess -1.5 Arterial Blood Oxygen Saturation 93.4 L Dick Test N/A Arterial Blood Gas Puncture Site Right Brachial Arterial Blood Carboxyhemoglobin 0.3 Arterial Blood Date Drawn 07/27/2016 2:45:51 PM Arterial Blood Methemoglobin 0.3 Arterial Blood pCO2 (Temp correct) 37.6 Arterial Blood pH (Temp corrected) 7.403 Arterial Blood pO2 (Temp corrected) 72.3 L Blood Gas A-a O2 Differential 32.4 H Blood Gas Modality ROOM AIR Blood Gas Notified Time 07/27/2016 2:52:44 PM Blood Gas Notified Whom TM Blood Gas Specimen Source Blood arterial Blood Gas Temperature 37.0 FiO2 21.0 Oxyhemoglobin Percent 92.8 L Total Hemoglobin 10.8 L Basophils # 0.0 Basophils % 0.5 Blood Morphology Comment Eosinophils # 0.6 H Eosinophils % 7.1 H Hematocrit 29.7 #L 29.2 L Hemoglobin 10.0 #L 9.8 L Lymphocytes # 0.9 Lymphocytes % 11.3 L Mean Corpuscular Hemoglobin 31.0 Mean Corpuscular Hemoglobin Concent 33.8 Mean Corpuscular Volume 91.8 Mean Platelet Volume 9.5 Monocytes # 0.9 Monocytes % 11.5 H Neutrophils # 5.6 Neutrophils % 69.6 Nucleated Red Blood Cells # 0.0 Nucleated Red Blood Cells % 0.0 Platelet Count 200 Red Blood Count 3.24 #L Red Cell Distribution Width 15.7 H White Blood Count 8.1 Activated Partial Thromboplast Time 34.3 INR International Normalized Ratio 1.15 Prothrombin Time 14.7 H Prothrombin Time Ratio 1.1 Test 07/27/16 19:32 07/27/16 20:03 07/27/16 23:02 07/28/16 03:45 Activated Partial Thromboplast Time > 180.0 *H 126.1 *H Bedside Glucose 135 171 Alanine Aminotransferase (ALT/SGPT) 78 H Albumin 3.4 Albumin/Globulin Ratio 1.41 Alkaline Phosphatase 221 H Anion Gap 21 H Aspartate Amino Transf (AST/SGOT) 45 Basophils # 0.0 Basophils % 0.5 Blood Morphology Comment Blood Urea Nitrogen 34 H Calcium Level 7.5 L Carbon Dioxide Level 26 Chloride Level 98 Creatinine 5.12 H Direct Bilirubin 0.00 Eosinophils # 0.4 Eosinophils % 5.0 Globulin 2.40 Glucose Level 278 H Hematocrit 29.1 L Hemoglobin 9.7 L Indirect Bilirubin 0.3 Lymphocytes # 1.1 Lymphocytes % 13.0 L Mean Corpuscular Hemoglobin 30.5 Mean Corpuscular Hemoglobin Concent 33.4 Mean Corpuscular Volume 91.2 Mean Platelet Volume 9.6 Monocytes # 0.8 Monocytes % 9.1 Neutrophils # 6.1 Neutrophils % 72.4 Nucleated Red Blood Cells # 0.0 Nucleated Red Blood Cells % 0.0 Platelet Count 189 Potassium Level 4.2 Red Blood Count 3.19 L Red Cell Distribution Width 16.9 H Sodium Level 141 Total Bilirubin 0.3 Total Protein 5.8 L White Blood Count 8.4 Test 07/28/16 06:55 07/28/16 08:13 07/28/16 10:01 07/28/16 11:57 Activated Partial Thromboplast Time 35.8 H Bedside Glucose 166 238 H 217 Medications Medications Current Medications Diphenhydramine HCl (Benadryl) 50 mg Q6H PRN IV ITCHING Last administered on t 23:38; Admin Dose 50 MG; Start 07/09/16 at 17:00 Non-Formulary Medication (Non-Formulary Insulin) INSULIN PUMP see la... [id number] SC Last administered on 07/28/16 10:05; Admin Dose 3 UNIT; Start 07/09/16 at 19:45 Non-Formulary Medication (Non-Formulary Insulin) INSULIN PUMP see la... HS SC Last administered on 07/25/16 23:50; Admin Dose 3 UNIT; Start 07/09/16 at 21:00 Miscellaneous Information 1 ea NOTE XX ; Start 07/09/16 at 18:30 Glucose (Glutose) 15 gm Q15M PRN PO DECREASED GLUCOSE; Start 07/09/16 at 18:30 Glucose (Glutose) 22.5 gm Q15M PRN PO DECREASED GLUCOSE; Start 07/09/16 at 18: 30 Dextrose (D50w Syringe) 25 ml Q15M PRN IV DECREASED GLUCOSE Last administered on 07/25/16 17:08; Admin Dose 25 ML; Start 07/09/16 at 18:30 Dextrose (D50w Syringe) 50 ml Q15M PRN IV DECREASED GLUCOSE Last administered on 07/19/16 20:58; Admin Dose 50 ML; Start 07/09/16 at 18:30 Glucagon (Glucagen) 1 mg Q15M PRN IM DECREASED GLUCOSE; Start 07/09/16 at 18:30 Glucose (Glutose) 15 gm Q15M PRN BUCCAL DECREASED GLUCOSE; Start 07/09/16 at 18 :30 Aspirin (Halfprin) 81 mg DAILY PO Last administered on 07/28/16 08:52; Admin Dose 81 MG; Start 07/10/16 at 09:00 Atorvastatin Calcium (Lipitor) 80 mg QHS PO Last administered on 07/27/16 23: 56; Admin Dose 80 MG; Start 07/10/16 at 21:00 Clonidine (Catapres) 0.1 mg Q6 PO Last administered on 07/28/16 05:50; Admin Dose 0.1 MG; Start 07/10/16 at 12:00 Isosorbide Mononitrate (Imdur) 60 mg DAILY PO Last administered on 07/28/16 08 :51; Admin Dose 60 MG; Start 07/10/16 at 10:00 Lactobacillus Acidoph/Bulgaricus (Floranex) 1 tab TID PO Last administered on 08:51; Admin Dose 1 TAB; Start 07/10/16 at 09:00 Metoprolol Succinate (Toprol Xl) 50 mg BID PO Last administered on 07/28/16 08 :51; Admin Dose 50 MG; Start 07/10/16 at 10:00 Prasugrel (Effient) 10 mg DAILY PO Last administered on 07/28/16 08:52; Admin Dose 10 MG; Start 07/10/16 at 10:30 Acetaminophen (Tylenol Tab) 500 mg Q4H PRN PO PAIN AND OR ELEVATED TEMP; Start 07/10/16 at 09:00 Cholestyramine Resin (Questran Light) 4 gm BID PO Last administered on 10:00; Admin Dose 4 GM; Start 07/11/16 at 09:00 Gabapentin (Neurontin) 600 mg TID PO Last administered on 07/28/16 08:52; Admin Dose 600 MG; Start 07/14/16 at 21:00 Pantoprazole (Protonix Tab) 40 mg DAILY@06 PO Last administered on 07/28/16 05 :50; Admin Dose 40 MG; Start 07/16/16 at 06:00 Calcitriol (Rocaltrol) 0.5 mcg DAILY PO Last administered on 07/28/16 08:52; Admin Dose 0.5 MCG; Start 07/24/16 at 10:00 Ondansetron HCl (Zofran Inj) 4 mg Q4H PRN IV NAUSEA AND/OR VOMITING; Start 03/31 at 16:00 Hydromorphone HCl (Dilaudid) 2 mg Q3H PRN IV PAIN Last administered on 11:47; Admin Dose 2 MG; Start 07/27/16 at 23:30 ANGELINA CASTREJON Jul 28, 2016 12:24
[2016-07-28] MEDS: PATIROMER CALCIUM SORBITEX 8.4 GM PKT PO SCH (12:47)
[2016-07-28] MEDS: HEPARIN 25000 UNITS/250 ML 250 ML IV SCH (12:51)
--- NOTE | 2016-07-28 14:04 | CONS ---
Date/Time of Note Date/Time of Note DATE: 07/28/16 TIME: 13:57 Consult Date/Type/Reason Admit Date/Time Jul 11, 2016 at 12:19 Type of Consultation: Rheum Subjective Above noted/ Pt had pseudoaneurism at right side and right fem DVT. Stable at present. Sleeping at present. Continues on Gabapentin which has helped the original leg pains much. Objective Sleeping at present. Sleeping at present. Chest clear. Heart RRR Abd. soft Vital Signs Date Time Temp Pulse Resp B/P Pulse Ox O2 Delivery O2 Flow Rate FiO2 07/28/16 12:53 99 07/28/16 10:30 23 118/75 91 07/28/16 10:00 Room Air 07/28/16 08:00 99.1 07/25/16 16:19 2.0 Intake and Output 07/27/16 07/27/16 07/28/16 15:00 23:00 07:00 Intake Total 500 ml 1400.0 ml 212.5 ml Output Total 500 ml 3450 ml 0 ml Balance 0 ml -2050.0 ml 212.5 ml Results/Medications Result Diagram: 07/28/16 0345 07/28/16 0345 Results 24 hrs Laboratory Tests Test 07/27/16 14:19 07/27/16 14:30 07/27/16 14:50 07/27/16 16:25 Arterial Blood HCO3 22.9 Arterial Blood Base Excess -1.5 Arterial Blood Oxygen Saturation 93.4 L Dick Test N/A Arterial Blood Gas Puncture Site Right Brachial Arterial Blood Carboxyhemoglobin 0.3 Arterial Blood Date Drawn 07/27/2016 2:45:51 PM Arterial Blood Methemoglobin 0.3 Arterial Blood pCO2 (Temp correct) 37.6 Arterial Blood pH (Temp corrected) 7.403 Arterial Blood pO2 (Temp corrected) 72.3 L Blood Gas A-a O2 Differential 32.4 H Blood Gas Modality ROOM AIR Blood Gas Notified Time 07/27/2016 2:52:44 PM Blood Gas Notified Whom TM Blood Gas Specimen Source Blood arterial Blood Gas Temperature 37.0 FiO2 21.0 Oxyhemoglobin Percent 92.8 L Total Hemoglobin 10.8 L Basophils # 0.0 Basophils % 0.5 Blood Morphology Comment Eosinophils # 0.6 H Eosinophils % 7.1 H Hematocrit 29.7 #L 29.2 L Hemoglobin 10.0 #L 9.8 L Lymphocytes # 0.9 Lymphocytes % 11.3 L Mean Corpuscular Hemoglobin 31.0 Mean Corpuscular Hemoglobin Concent 33.8 Mean Corpuscular Volume 91.8 Mean Platelet Volume 9.5 Monocytes # 0.9 Monocytes % 11.5 H Neutrophils # 5.6 Neutrophils % 69.6 Nucleated Red Blood Cells # 0.0 Nucleated Red Blood Cells % 0.0 Platelet Count 200 Red Blood Count 3.24 #L Red Cell Distribution Width 15.7 H White Blood Count 8.1 Activated Partial Thromboplast Time 34.3 INR International Normalized Ratio 1.15 Prothrombin Time 14.7 H Prothrombin Time Ratio 1.1 Test 07/27/16 19:32 07/27/16 20:03 07/27/16 23:02 07/28/16 03:45 Activated Partial Thromboplast Time > 180.0 *H 126.1 *H Bedside Glucose 135 171 Alanine Aminotransferase (ALT/SGPT) 78 H Albumin 3.4 Albumin/Globulin Ratio 1.41 Alkaline Phosphatase 221 H Anion Gap 21 H Aspartate Amino Transf (AST/SGOT) 45 Basophils # 0.0 Basophils % 0.5 Blood Morphology Comment Blood Urea Nitrogen 34 H Calcium Level 7.5 L Carbon Dioxide Level 26 Chloride Level 98 Creatinine 5.12 H Direct Bilirubin 0.00 Eosinophils # 0.4 Eosinophils % 5.0 Globulin 2.40 Glucose Level 278 H Hematocrit 29.1 L Hemoglobin 9.7 L Indirect Bilirubin 0.3 Lymphocytes # 1.1 Lymphocytes % 13.0 L Mean Corpuscular Hemoglobin 30.5 Mean Corpuscular Hemoglobin Concent 33.4 Mean Corpuscular Volume 91.2 Mean Platelet Volume 9.6 Monocytes # 0.8 Monocytes % 9.1 Neutrophils # 6.1 Neutrophils % 72.4 Nucleated Red Blood Cells # 0.0 Nucleated Red Blood Cells % 0.0 Platelet Count 189 Potassium Level 4.2 Red Blood Count 3.19 L Red Cell Distribution Width 16.9 H Sodium Level 141 Total Bilirubin 0.3 Total Protein 5.8 L White Blood Count 8.4 Test 07/28/16 06:55 07/28/16 08:13 07/28/16 10:01 07/28/16 11:57 Activated Partial Thromboplast Time 35.8 H Bedside Glucose 166 238 H 217 Medications Current Medications Diphenhydramine HCl (Benadryl) 50 mg Q6H PRN IV ITCHING Last administered on 23:38; Admin Dose 50 MG; Start 07/09/16 at 17:00 Non-Formulary Medication (Non-Formulary Insulin) INSULIN PUMP see la... [id number] SC Last administered on 07/28/16 12:00; Admin Dose 1 UNIT; Start 07/09/16 at 19:45 Non-Formulary Medication (Non-Formulary Insulin) INSULIN PUMP see la... HS SC Last administered on 07/25/16 23:50; Admin Dose 3 UNIT; Start 07/09/16 at 21:00 Miscellaneous Information 1 ea NOTE XX ; Start 07/09/16 at 18:30 Glucose (Glutose) 15 gm Q15M PRN PO DECREASED GLUCOSE; Start 07/09/16 at 18:30 Glucose (Glutose) 22.5 gm Q15M PRN PO DECREASED GLUCOSE; Start 07/09/16 at 18: 30 Dextrose (D50w Syringe) 25 ml Q15M PRN IV DECREASED GLUCOSE Last administered on 07/25/16 17:08; Admin Dose 25 ML; Start 07/09/16 at 18:30 Dextrose (D50w Syringe) 50 ml Q15M PRN IV DECREASED GLUCOSE Last administered on 07/19/16 20:58; Admin Dose 50 ML; Start 07/09/16 at 18:30 Glucagon (Glucagen) 1 mg Q15M PRN IM DECREASED GLUCOSE; Start 07/09/16 at 18:30 Glucose (Glutose) 15 gm Q15M PRN BUCCAL DECREASED GLUCOSE; Start 07/09/16 at 18 :30 Aspirin (Halfprin) 81 mg DAILY PO Last administered on 07/28/16 08:52; Admin Dose 81 MG; Start 07/10/16 at 09:00 Atorvastatin Calcium (Lipitor) 80 mg QHS PO Last administered on 07/27/16 23: 56; Admin Dose 80 MG; Start 07/10/16 at 21:00 Clonidine (Catapres) 0.1 mg Q6 PO Last administered on 07/28/16 05:50; Admin Dose 0.1 MG; Start 07/10/16 at 12:00 Isosorbide Mononitrate (Imdur) 60 mg DAILY PO Last administered on 07/28/16 08 :51; Admin Dose 60 MG; Start 07/10/16 at 10:00 Lactobacillus Acidoph/Bulgaricus (Floranex) 1 tab TID PO Last administered on 12:48; Admin Dose 1 TAB; Start 07/10/16 at 09:00 Metoprolol Succinate (Toprol Xl) 50 mg BID PO Last administered on 07/28/16 08 :51; Admin Dose 50 MG; Start 07/10/16 at 10:00 Prasugrel (Effient) 10 mg DAILY PO Last administered on 07/28/16 08:52; Admin Dose 10 MG; Start 07/10/16 at 10:30 Acetaminophen (Tylenol Tab) 500 mg Q4H PRN PO PAIN AND OR ELEVATED TEMP; Start 07/10/16 at 09:00 Cholestyramine Resin (Questran Light) 4 gm BID PO Last administered on 10:00; Admin Dose 4 GM; Start 07/11/16 at 09:00 Gabapentin (Neurontin) 600 mg TID PO Last administered on 07/28/16 13:15; Admin Dose 600 MG; Start 07/14/16 at 21:00 Pantoprazole (Protonix Tab) 40 mg DAILY@06 PO Last administered on 07/28/16 05 :50; Admin Dose 40 MG; Start 07/16/16 at 06:00 Calcitriol (Rocaltrol) 0.5 mcg DAILY PO Last administered on 07/28/16 08:52; Admin Dose 0.5 MCG; Start 07/24/16 at 10:00 Ondansetron HCl (Zofran Inj) 4 mg Q4H PRN IV NAUSEA AND/OR VOMITING; Start 03/31 at 16:00 Hydromorphone HCl (Dilaudid) 2 mg Q3H PRN IV PAIN Last administered on 11:47; Admin Dose 2 MG; Start 07/27/16 at 23:30 Assessment/Plan Chief Complaint/Hosp Course Ass 1. Leg pain. Neuropathic in part, responding to Gabapentin. 2. Marked peripheral arterial disease. 3. Possible right lumbar radiculopathy, long standing 4. Renal Failure 5 Right common femoral vein DVT 6. S/p repainr of pseudoaneurism right groin. Rec. Continue Gabapentin to 600 mg tid. Problems: ENMA GRAHAM MD Jul 28, 2016 14:04
--- NOTE | 2016-07-28 14:12 | CONS ---
Date/Time of Note Date/Time of Note DATE: 07/28/16 TIME: 14:10 Consult Date/Type/Reason Admit Date/Time Jul 11, 2016 at 12:19 Initial Consult Date 07/27/16 Type of Consultation: Card Objective Vital Signs Date Time Temp Pulse Resp B/P Pulse Ox O2 Delivery O2 Flow Rate FiO2 07/28/16 12:53 99 07/28/16 10:30 23 118/75 91 07/28/16 10:00 Room Air 07/28/16 08:00 99.1 07/25/16 16:19 2.0 Intake and Output 07/27/16 07/27/16 07/28/16 15:00 23:00 07:00 Intake Total 500 ml 1400.0 ml 212.5 ml Output Total 500 ml 3450 ml 0 ml Balance 0 ml -2050.0 ml 212.5 ml Results/Medications Result Diagram: 07/28/16 0345 07/28/16 0345 Results 24 hrs Laboratory Tests Test 07/27/16 14:19 07/27/16 14:30 07/27/16 14:50 07/27/16 16:25 Arterial Blood HCO3 22.9 Arterial Blood Base Excess -1.5 Arterial Blood Oxygen Saturation 93.4 L Dick Test N/A Arterial Blood Gas Puncture Site Right Brachial Arterial Blood Carboxyhemoglobin 0.3 Arterial Blood Date Drawn 07/27/2016 2:45:51 PM Arterial Blood Methemoglobin 0.3 Arterial Blood pCO2 (Temp correct) 37.6 Arterial Blood pH (Temp corrected) 7.403 Arterial Blood pO2 (Temp corrected) 72.3 L Blood Gas A-a O2 Differential 32.4 H Blood Gas Modality ROOM AIR Blood Gas Notified Time 07/27/2016 2:52:44 PM Blood Gas Notified Whom TM Blood Gas Specimen Source Blood arterial Blood Gas Temperature 37.0 FiO2 21.0 Oxyhemoglobin Percent 92.8 L Total Hemoglobin 10.8 L Basophils # 0.0 Basophils % 0.5 Blood Morphology Comment Eosinophils # 0.6 H Eosinophils % 7.1 H Hematocrit 29.7 #L 29.2 L Hemoglobin 10.0 #L 9.8 L Lymphocytes # 0.9 Lymphocytes % 11.3 L Mean Corpuscular Hemoglobin 31.0 Mean Corpuscular Hemoglobin Concent 33.8 Mean Corpuscular Volume 91.8 Mean Platelet Volume 9.5 Monocytes # 0.9 Monocytes % 11.5 H Neutrophils # 5.6 Neutrophils % 69.6 Nucleated Red Blood Cells # 0.0 Nucleated Red Blood Cells % 0.0 Platelet Count 200 Red Blood Count 3.24 #L Red Cell Distribution Width 15.7 H White Blood Count 8.1 Activated Partial Thromboplast Time 34.3 INR International Normalized Ratio 1.15 Prothrombin Time 14.7 H Prothrombin Time Ratio 1.1 Test 07/27/16 19:32 07/27/16 20:03 07/27/16 23:02 07/28/16 03:45 Activated Partial Thromboplast Time > 180.0 *H 126.1 *H Bedside Glucose 135 171 Alanine Aminotransferase (ALT/SGPT) 78 H Albumin 3.4 Albumin/Globulin Ratio 1.41 Alkaline Phosphatase 221 H Anion Gap 21 H Aspartate Amino Transf (AST/SGOT) 45 Basophils # 0.0 Basophils % 0.5 Blood Morphology Comment Blood Urea Nitrogen 34 H Calcium Level 7.5 L Carbon Dioxide Level 26 Chloride Level 98 Creatinine 5.12 H Direct Bilirubin 0.00 Eosinophils # 0.4 Eosinophils % 5.0 Globulin 2.40 Glucose Level 278 H Hematocrit 29.1 L Hemoglobin 9.7 L Indirect Bilirubin 0.3 Lymphocytes # 1.1 Lymphocytes % 13.0 L Mean Corpuscular Hemoglobin 30.5 Mean Corpuscular Hemoglobin Concent 33.4 Mean Corpuscular Volume 91.2 Mean Platelet Volume 9.6 Monocytes # 0.8 Monocytes % 9.1 Neutrophils # 6.1 Neutrophils % 72.4 Nucleated Red Blood Cells # 0.0 Nucleated Red Blood Cells % 0.0 Platelet Count 189 Potassium Level 4.2 Red Blood Count 3.19 L Red Cell Distribution Width 16.9 H Sodium Level 141 Total Bilirubin 0.3 Total Protein 5.8 L White Blood Count 8.4 Test 07/28/16 06:55 07/28/16 08:13 07/28/16 10:01 07/28/16 11:57 Activated Partial Thromboplast Time 35.8 H Bedside Glucose 166 238 H 217 Medications Current Medications Diphenhydramine HCl (Benadryl) 50 mg Q6H PRN IV ITCHING Last administered on t 23:38; Admin Dose 50 MG; Start 07/09/16 at 17:00 Non-Formulary Medication (Non-Formulary Insulin) INSULIN PUMP see la... [id number] SC Last administered on 07/28/16 12:00; Admin Dose 1 UNIT; Start 07/09/16 at 19:45 Non-Formulary Medication (Non-Formulary Insulin) INSULIN PUMP see la... HS SC Last administered on 07/25/16 23:50; Admin Dose 3 UNIT; Start 07/09/16 at 21:00 Miscellaneous Information 1 ea NOTE XX ; Start 07/09/16 at 18:30 Glucose (Glutose) 15 gm Q15M PRN PO DECREASED GLUCOSE; Start 07/09/16 at 18:30 Glucose (Glutose) 22.5 gm Q15M PRN PO DECREASED GLUCOSE; Start 07/09/16 at 18: 30 Dextrose (D50w Syringe) 25 ml Q15M PRN IV DECREASED GLUCOSE Last administered on 07/25/16 17:08; Admin Dose 25 ML; Start 07/09/16 at 18:30 Dextrose (D50w Syringe) 50 ml Q15M PRN IV DECREASED GLUCOSE Last administered on 07/19/16 20:58; Admin Dose 50 ML; Start 07/09/16 at 18:30 Glucagon (Glucagen) 1 mg Q15M PRN IM DECREASED GLUCOSE; Start 07/09/16 at 18:30 Glucose (Glutose) 15 gm Q15M PRN BUCCAL DECREASED GLUCOSE; Start 07/09/16 at 18 :30 Aspirin (Halfprin) 81 mg DAILY PO Last administered on 07/28/16 08:52; Admin Dose 81 MG; Start 07/10/16 at 09:00 Atorvastatin Calcium (Lipitor) 80 mg QHS PO Last administered on 07/27/16 23: 56; Admin Dose 80 MG; Start 07/10/16 at 21:00 Clonidine (Catapres) 0.1 mg Q6 PO Last administered on 07/28/16 05:50; Admin Dose 0.1 MG; Start 07/10/16 at 12:00 Isosorbide Mononitrate (Imdur) 60 mg DAILY PO Last administered on 07/28/16 08 :51; Admin Dose 60 MG; Start 07/10/16 at 10:00 Lactobacillus Acidoph/Bulgaricus (Floranex) 1 tab TID PO Last administered on 12:48; Admin Dose 1 TAB; Start 07/10/16 at 09:00 Metoprolol Succinate (Toprol Xl) 50 mg BID PO Last administered on 07/28/16 08 :51; Admin Dose 50 MG; Start 07/10/16 at 10:00 Prasugrel (Effient) 10 mg DAILY PO Last administered on 07/28/16 08:52; Admin Dose 10 MG; Start 07/10/16 at 10:30 Acetaminophen (Tylenol Tab) 500 mg Q4H PRN PO PAIN AND OR ELEVATED TEMP; Start 07/10/16 at 09:00 Cholestyramine Resin (Questran Light) 4 gm BID PO Last administered on 10:00; Admin Dose 4 GM; Start 07/11/16 at 09:00 Gabapentin (Neurontin) 600 mg TID PO Last administered on 07/28/16 13:15; Admin Dose 600 MG; Start 07/14/16 at 21:00 Pantoprazole (Protonix Tab) 40 mg DAILY@06 PO Last administered on 07/28/16 05 :50; Admin Dose 40 MG; Start 07/16/16 at 06:00 Calcitriol (Rocaltrol) 0.5 mcg DAILY PO Last administered on 07/28/16 08:52; Admin Dose 0.5 MCG; Start 07/24/16 at 10:00 Ondansetron HCl (Zofran Inj) 4 mg Q4H PRN IV NAUSEA AND/OR VOMITING; Start 03/31 at 16:00 Hydromorphone HCl (Dilaudid) 2 mg Q3H PRN IV PAIN Last administered on 11:47; Admin Dose 2 MG; Start 07/27/16 at 23:30 Assessment/Plan Chief Complaint/Hosp Course Ephraim is known to me , He has PCI of LAD and PAD. 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 called in for pre op today by Amina. Problems: Additional Assessment/Plan Pt is stable post surgery doing fine stable. CYNDIE HOLLIS MD Jul 28, 2016 14:12
[2016-07-28] MEDS: ACETAMINOPHEN 500 MG TAB PO PRN ×2 (14:46→18:26)
--- NOTE | 2016-07-28 16:10 | PN ---
Date/Time of Note Date/Time of Note DATE: 07/28/16 TIME: 16:04 Assessment/Plan Lines/Catheters IV Catheter Type (from [facility]): Portacath Foster in Place (from [facility]): No Assessment/Plan Chief Complaint/Hosp Course -End-stage renal disease: It seems that the patient's left upper extremity fistula is functioning well. Recommend continue with his hemodialysis sessions via the fistula. Patient also had his recent Perm-A-Cath removed. From a vascular standpoint, we will continue his fistula surveillance as an outpatient. -Bilateral lower extremity atherosclerosis: S/P angio with LLE SFA severe stenosis. S/P LLE Atherectomy, Stenting and angioplasty -Patient had complain of Right groin discomfort and upon CTA of Right ZINC PLATER there was a ZINC PLATER pseudoaneurysm. S/P Right ZINC PLATER exploration and repair of pseudoaneurysm -Right CFV DVT likely developed post angiogram manual compression. Continue with anticoagulation for now and will eventually transition to PO regimen -Recommend ICU monitoring for now -Will need PT/OT and OOB FWB -Neurovascular check Q1 -Optimize vascular status (BP meds, diet, nutrition, exercise, sugar control, antiplatelets). -Discussed findings with plan and management with the patient and he understands. -Thank you for allowing us to partake in the care of your patient. Please call with any questions. Problems: Subjective 24 Hr Interval Summary S/P right ZINC PLATER exploration, incisional tenderness, Exam/Review of Systems Vital Signs Vitals Vital Signs Date Time Temp Pulse Resp B/P Pulse Ox O2 Delivery O2 Flow Rate FiO2 07/28/16 14:00 103.0 96 24 122/74 98 Room Air 07/25/16 16:19 2.0 Intake and Output 07/27/16 07/27/16 07/28/16 15:00 23:00 07:00 Intake Total 500 ml 1400.0 ml 212.5 ml Output Total 500 ml 3450 ml 0 ml Balance 0 ml -2050.0 ml 212.5 ml Exam Free Text/Dictation GENERAL: Alert and oriented x3. PULMONARY: Clear to auscultation bilaterally. CARDIOVASCULAR: S1, S2 present. ABDOMEN: Soft, nontender, nondistended. Bowel sounds positive. EXTREMITIES: Left upper extremity palpable brachial pulse. Motor, sensory intact. Capillary refill 2 to 3 seconds. Surgical scars all well healed. Fistula with bruit and thrill present Right lower extremity palpable femoral pulse, groin with prevena wound vac intact, incisional tenderness, Dopplerable AT and PT biphasic, Motor and sensory intact. Capillary refill 3 seconds, edema 1-2+ Jim wrap intact Left lower extremity palpable femoral pulse, palpable pedal pulse. Motor and sensory intact. Capillary refill 2 to 3 seconds Results Result Diagram: 07/28/16 0345 07/28/16 0345 JOE BARR MD Jul 28, 2016 16:10
--- NOTE | 2016-07-28 19:39 | CONS ---
Date/Time of Note Date/Time of Note DATE: 07/28/16 TIME: 19:38 Assessment/Plan Assessment/Plan Additional Assessment/Plan Additional Assessment/Plan IMPRESSION: 1. Diarrhea. 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 Improved after Questran restarted. C. Diff negative.better 2. Diabetes mellitus. 3. Renal failure. 4. Coronary artery disease. 5. Hypertension. 6.pain lower extremity, 7.rt common femoral artery pseudo aneurysm,rt FV dvt 7.left lower extremity angioplasty and stenting Plan continue Questran vascular intervention as per vascular surgeon,today Consultation Date/Type/Reason Admit Date/Time Jul 11, 2016 at 12:19 Type of Consultation: Card 24 HR Interval Summary Constitutional: improved Exam/Review of Systems Vital Signs Vitals Vital Signs Date Time Temp Pulse Resp B/P Pulse Ox O2 Delivery O2 Flow Rate FiO2 07/28/16 18:00 101.5 87 19 103/61 94 Room Air 07/25/16 16:19 2.0 Intake and Output 07/27/16 07/27/16 07/28/16 15:00 23:00 07:00 Intake Total 500 ml 1400.0 ml 212.5 ml Output Total 500 ml 3450 ml 0 ml Balance 0 ml -2050.0 ml 212.5 ml Exam Constitutional: alert, oriented, well developed Psych: nl mood/affect, no complaints Head: atraumatic, normocephalic Eyes: EOMI, PERRL, nl conjunctiva, nl lids, nl sclera ENMT: nl external ears & nose, nl lips & teeth, nl nasal mucosa & septum Neck: non-tender, supple Respiratory: clear to auscultation, normal air movement Cardiovascular: nl pulses, regular rate and rhythm Gastrointestinal: nl liver, spleen, non-tender, soft Musculoskeletal: nl extremities to inspection, nl gait and stance Extremities: normal pulses 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: ELEVATOR MECHANIC APPRENTICE II-XII intact, nl mental status, nl speech, nl strength Skin: nl turgor, No rash or lesions Lymph: nl lymph nodes Results Result Diagram: 07/28/16 0345 07/28/16 0345 Results 24 hrs Laboratory Tests Test 07/27/16 20:03 07/27/16 23:02 07/28/16 03:45 07/28/16 06:55 Bedside Glucose 135 171 Activated Partial Thromboplast Time 126.1 *H 35.8 H Alanine Aminotransferase (ALT/SGPT) 78 H Albumin 3.4 Albumin/Globulin Ratio 1.41 Alkaline Phosphatase 221 H Anion Gap 21 H Aspartate Amino Transf (AST/SGOT) 45 Basophils # 0.0 Basophils % 0.5 Blood Morphology Comment Blood Urea Nitrogen 34 H Calcium Level 7.5 L Carbon Dioxide Level 26 Chloride Level 98 Creatinine 5.12 H Direct Bilirubin 0.00 Eosinophils # 0.4 Eosinophils % 5.0 Globulin 2.40 Glucose Level 278 H Hematocrit 29.1 L Hemoglobin 9.7 L Indirect Bilirubin 0.3 Lymphocytes # 1.1 Lymphocytes % 13.0 L Mean Corpuscular Hemoglobin 30.5 Mean Corpuscular Hemoglobin Concent 33.4 Mean Corpuscular Volume 91.2 Mean Platelet Volume 9.6 Monocytes # 0.8 Monocytes % 9.1 Neutrophils # 6.1 Neutrophils % 72.4 Nucleated Red Blood Cells # 0.0 Nucleated Red Blood Cells % 0.0 Platelet Count 189 Potassium Level 4.2 Red Blood Count 3.19 L Red Cell Distribution Width 16.9 H Sodium Level 141 Total Bilirubin 0.3 Total Protein 5.8 L White Blood Count 8.4 Test 07/28/16 08:13 07/28/16 10:01 07/28/16 11:57 07/28/16 14:14 Bedside Glucose 166 238 H 217 182 Test 07/28/16 15:10 07/28/16 17:47 Activated Partial Thromboplast Time > 180.0 *H Bedside Glucose 258 H Medications Medications Current Medications Diphenhydramine HCl (Benadryl) 50 mg Q6H PRN IV ITCHING Last administered on 23:38; Admin Dose 50 MG; Start 07/09/16 at 17:00 Non-Formulary Medication (Non-Formulary Insulin) INSULIN PUMP see la... [id number] SC Last administered on 07/28/16 17:54; Admin Dose 4.5 UNIT; Start 07/09/16 at 19:45 Non-Formulary Medication (Non-Formulary Insulin) INSULIN PUMP see la... HS SC Last administered on 07/25/16 23:50; Admin Dose 3 UNIT; Start 07/09/16 at 21:00 Miscellaneous Information 1 ea NOTE XX ; Start 07/09/16 at 18:30 Glucose (Glutose) 15 gm Q15M PRN PO DECREASED GLUCOSE; Start 07/09/16 at 18:30 Glucose (Glutose) 22.5 gm Q15M PRN PO DECREASED GLUCOSE; Start 07/09/16 at 18: 30 Dextrose (D50w Syringe) 25 ml Q15M PRN IV DECREASED GLUCOSE Last administered on 07/25/16 17:08; Admin Dose 25 ML; Start 07/09/16 at 18:30 Dextrose (D50w Syringe) 50 ml Q15M PRN IV DECREASED GLUCOSE Last administered on 07/19/16 20:58; Admin Dose 50 ML; Start 07/09/16 at 18:30 Glucagon (Glucagen) 1 mg Q15M PRN IM DECREASED GLUCOSE; Start 07/09/16 at 18:30 Glucose (Glutose) 15 gm Q15M PRN BUCCAL DECREASED GLUCOSE; Start 07/09/16 at 18 :30 Aspirin (Halfprin) 81 mg DAILY PO Last administered on 07/28/16 08:52; Admin Dose 81 MG; Start 07/10/16 at 09:00 Atorvastatin Calcium (Lipitor) 80 mg QHS PO Last administered on 07/27/16 23: 56; Admin Dose 80 MG; Start 07/10/16 at 21:00 Clonidine (Catapres) 0.1 mg Q6 PO Last administered on 07/28/16 05:50; Admin Dose 0.1 MG; Start 07/10/16 at 12:00 Isosorbide Mononitrate (Imdur) 60 mg DAILY PO Last administered on 07/28/16 08 :51; Admin Dose 60 MG; Start 07/10/16 at 10:00 Lactobacillus Acidoph/Bulgaricus (Floranex) 1 tab TID PO Last administered on 12:48; Admin Dose 1 TAB; Start 07/10/16 at 09:00 Metoprolol Succinate (Toprol Xl) 50 mg BID PO Last administered on 07/28/16 08 :51; Admin Dose 50 MG; Start 07/10/16 at 10:00 Prasugrel (Effient) 10 mg DAILY PO Last administered on 07/28/16 08:52; Admin Dose 10 MG; Start 07/10/16 at 10:30 Acetaminophen (Tylenol Tab) 500 mg Q4H PRN PO PAIN AND OR ELEVATED TEMP Last administered on 07/28/16 18:26; Admin Dose 500 MG; Start 07/10/16 at 09:00 Cholestyramine Resin (Questran Light) 4 gm BID PO Last administered on 10:00; Admin Dose 4 GM; Start 07/11/16 at 09:00 Gabapentin (Neurontin) 600 mg TID PO Last administered on 07/28/16 13:15; Admin Dose 600 MG; Start 07/14/16 at 21:00 Pantoprazole (Protonix Tab) 40 mg DAILY@06 PO Last administered on 07/28/16 05 :50; Admin Dose 40 MG; Start 07/16/16 at 06:00 Calcitriol (Rocaltrol) 0.5 mcg DAILY PO Last administered on 07/28/16 08:52; Admin Dose 0.5 MCG; Start 07/24/16 at 10:00 Ondansetron HCl (Zofran Inj) 4 mg Q4H PRN IV NAUSEA AND/OR VOMITING; Start 03/31 at 16:00 Hydromorphone HCl (Dilaudid) 2 mg Q3H PRN IV PAIN Last administered on 18:30; Admin Dose 2 MG; Start 07/27/16 at 23:30 NIYAH REED MD Jul 28, 2016 19:39
[2016-07-28] MEDS: ATORVASTATIN 80 MG TAB PO SCH (21:20)
[2016-07-29] VITALS (31 sets, daily range): BP systolic 92–182; BP diastolic 56–105; PULSE 72–99; RESP 14–26
[2016-07-29] MEDS: DIPHENHYDRAMINE 50 MG INJ IV PRN ×4 (00:45→21:57)
[2016-07-29] MEDS: HYDROmorphONE 2 MG/ML SYG IV PRN ×6 (00:46→21:57)
[2016-07-29 04:41] LABS: BASOPHILS % 0.4 % (0.0-2.0); EOSINOPHILS # 0.3 10^3/ul (0.0-0.5); EOSINOPHILS % 3.5 % (0.0-7.0); HEMATOCRIT 25.7 % (42.0-52.0); HEMOGLOBIN 8.5 g/dl (14.0-18.0); LYMPHOCYTES # 1.1 10^3/ul (0.8-2.9); LYMPHOCYTES % 11.2 % (15.0-51.0); MEAN CORPUSCULAR HEMOGLOBIN 30.3 pg (29.0-33.0); MEAN CORPUSCULAR HGB CONC 33.1 g/dl (32.0-37.0); MEAN CORPUSCULAR VOLUME 91.6 fl (82.0-101.0); NEUTROPHIL # 7.4 10^3/ul (1.6-7.5); NEUTROPHILS % 74.9 % (39.0-77.0); PLATELET COUNT 174 10^3/UL (140-440); RED BLOOD COUNT 2.81 10^6/ul (4.70-6.10); RED CELL DISTRIBUTION WIDTH 16.7 % (11.5-14.5); UNCORRECTED WBC 9.9 10^3/ul (4.8-10.8); WHITE BLOOD COUNT 9.9 10^3/ul (4.8-10.8)
[2016-07-29 04:48] LABS: CONDITION 1; LH ANALYZER COMMENTS 1
[2016-07-29 04:50] LABS: ALBUMIN 3.2 g/dl (3.3-4.9); POTASSIUM 4.9 mmol/L (3.5-5.1)
[2016-07-29 04:52] LABS: CREATININE 7.78 mg/dl (0.61-1.24)
[2016-07-29 04:53] LABS: ALBUMIN/GLOBULIN RATIO 1.18; BILIRUBIN,INDIRECT 0.3 mg/dl (0-1.1); BILIRUBIN,TOTAL 0.3 mg/dl (0.2-1.3); CALCIUM 7.4 mg/dl (8.4-10.2); TOTAL PROTEIN 5.9 g/dl (6.1-8.1)
--- NOTE | 2016-07-29 08:29 | CONS ---
Date/Time of Note Date/Time of Note DATE: 07/29/16 TIME: 08:26 Assessment/Plan Assessment/Plan Chief Complaint/Hosp Course #1 end-stage renal disease, on maintenance hemodialysis Thursday. He has dialysis scheduled for today . #2 bilateral foot pain.He has a high grade stenosis in the L superfiscial femoral artery and other diffuse ASCVD , vascular W/U is in progress . He had an angioplasty and stent placement on L leg and he now has good pulses in his L foot . #3 anemia. H/H is lower . Probably due to bleeding into R groin . #4 hyperkalemia . He is taking Veltassa for elevated K . He is on increased dose of the the Veltassa to 16.8 gm a day .potassium seems to be coming under control . #5 pseudoaneurysm of R femoral artery for which he had surgery . Problems: Consultation Date/Type/Reason Admit Date/Time Jul 11, 2016 at 12:19 Type of Consultation: Card 24 HR Interval Summary Free Text/Dictation He is in the ICU . He has no new complaints . Constitutional: no complaints Exam/Review of Systems Vital Signs Vitals Vital Signs Date Time Temp Pulse Resp B/P Pulse Ox O2 Delivery O2 Flow Rate FiO2 07/29/16 07:00 72 17 104/63 96 Room Air 07/29/16 04:00 98.3 07/29/16 03:00 2.0 Intake and Output 07/28/16 07/28/16 07/29/16 15:00 23:00 07:00 Intake Total 334 ml 244 ml 52 ml Output Total 0 ml 65 ml Balance 334 ml 179 ml 52 ml Exam Constitutional: alert, oriented, well developed Psych: nl mood/affect Respiratory: clear to auscultation, normal air movement Cardiovascular: regular rate and rhythm Gastrointestinal: soft Extremities: edema Results Result Diagram: 07/29/16 0400 07/29/16 0400 Results 24 hrs Laboratory Tests Test 07/28/16 10:01 07/28/16 11:57 07/28/16 14:14 07/28/16 15:10 Bedside Glucose 238 H 217 182 Activated Partial Thromboplast Time > 180.0 *H Test 07/28/16 17:00 07/28/16 17:47 07/28/16 19:52 07/28/16 21:21 Activated Partial Thromboplast Time 80.1 *H Bedside Glucose 258 H 298 H 267 H Test 07/29/16 04:00 07/29/16 06:48 Activated Partial Thromboplast Time > 180.0 *H Alanine Aminotransferase (ALT/SGPT) 59 Albumin 3.2 L Albumin/Globulin Ratio 1.18 Alkaline Phosphatase 198 H Anion Gap 23 H Aspartate Amino Transf (AST/SGOT) 32 Basophils # 0.0 Basophils % 0.4 Blood Morphology Comment Blood Urea Nitrogen 61 H Calcium Level 7.4 L Carbon Dioxide Level 20 L Chloride Level 94 L Creatinine 7.78 #H Direct Bilirubin 0.00 Eosinophils # 0.3 Eosinophils % 3.5 Globulin 2.70 Glucose Level 292 H Hematocrit 25.7 L Hemoglobin 8.5 L Indirect Bilirubin 0.3 Lymphocytes # 1.1 Lymphocytes % 11.2 L Magnesium Level 1.6 L Mean Corpuscular Hemoglobin 30.3 Mean Corpuscular Hemoglobin Concent 33.1 Mean Corpuscular Volume 91.6 Mean Platelet Volume 10.0 Monocytes # 1.0 H Monocytes % 10.0 Neutrophils # 7.4 Neutrophils % 74.9 Nucleated Red Blood Cells # 0.0 Nucleated Red Blood Cells % 0.0 Platelet Count 174 Potassium Level 4.9 Red Blood Count 2.81 L Red Cell Distribution Width 16.7 H Sodium Level 132 L Total Bilirubin 0.3 Total Protein 5.9 L White Blood Count 9.9 Bedside Glucose 355 H Medications Medications Current Medications Diphenhydramine HCl (Benadryl) 50 mg Q6H PRN IV ITCHING Last administered on 00:45; Admin Dose 50 MG; Start 07/09/16 at 17:00 Non-Formulary Medication (Non-Formulary Insulin) INSULIN PUMP see la... [id number] SC Last administered on 07/28/16 19:55; Admin Dose 6 UNIT; Start 07/09/16 at 19:45 Non-Formulary Medication (Non-Formulary Insulin) INSULIN PUMP see la... HS SC Last administered on 07/28/16 21:22; Admin Dose 5 UNIT; Start 07/09/16 at 21:00 Miscellaneous Information 1 ea NOTE XX ; Start 07/09/16 at 18:30 Glucose (Glutose) 15 gm Q15M PRN PO DECREASED GLUCOSE; Start 07/09/16 at 18:30 Glucose (Glutose) 22.5 gm Q15M PRN PO DECREASED GLUCOSE; Start 07/09/16 at 18: 30 Dextrose (D50w Syringe) 25 ml Q15M PRN IV DECREASED GLUCOSE Last administered on 07/25/16 17:08; Admin Dose 25 ML; Start 07/09/16 at 18:30 Dextrose (D50w Syringe) 50 ml Q15M PRN IV DECREASED GLUCOSE Last administered on 07/19/16 20:58; Admin Dose 50 ML; Start 07/09/16 at 18:30 Glucagon (Glucagen) 1 mg Q15M PRN IM DECREASED GLUCOSE; Start 07/09/16 at 18:30 Glucose (Glutose) 15 gm Q15M PRN BUCCAL DECREASED GLUCOSE; Start 07/09/16 at 18 :30 Aspirin (Halfprin) 81 mg DAILY PO Last administered on 07/28/16 08:52; Admin Dose 81 MG; Start 07/10/16 at 09:00 Atorvastatin Calcium (Lipitor) 80 mg QHS PO Last administered on 07/28/16 21: 20; Admin Dose 80 MG; Start 07/10/16 at 21:00 Clonidine (Catapres) 0.1 mg Q6 PO Last administered on 07/29/16 00:04; Admin Dose 0.1 MG; Start 07/10/16 at 12:00 Isosorbide Mononitrate (Imdur) 60 mg DAILY PO Last administered on 07/28/16 08 :51; Admin Dose 60 MG; Start 07/10/16 at 10:00 Lactobacillus Acidoph/Bulgaricus (Floranex) 1 tab TID PO Last administered on 21:20; Admin Dose 1 TAB; Start 07/10/16 at 09:00 Metoprolol Succinate (Toprol Xl) 50 mg BID PO Last administered on 07/28/16 22 :34; Admin Dose 50 MG; Start 07/10/16 at 10:00 Prasugrel (Effient) 10 mg DAILY PO Last administered on 07/28/16 08:52; Admin Dose 10 MG; Start 07/10/16 at 10:30 Acetaminophen (Tylenol Tab) 500 mg Q4H PRN PO PAIN AND OR ELEVATED TEMP Last administered on 07/28/16 18:26; Admin Dose 500 MG; Start 07/10/16 at 09:00 Cholestyramine Resin (Questran Light) 4 gm BID PO Last administered on 10:00; Admin Dose 4 GM; Start 07/11/16 at 09:00 Gabapentin (Neurontin) 600 mg TID PO Last administered on 07/28/16 21:20; Admin Dose 600 MG; Start 07/14/16 at 21:00 Pantoprazole (Protonix Tab) 40 mg DAILY@06 PO Last administered on 07/28/16 05 :50; Admin Dose 40 MG; Start 07/16/16 at 06:00 Calcitriol (Rocaltrol) 0.5 mcg DAILY PO Last administered on 07/28/16 08:52; Admin Dose 0.5 MCG; Start 07/24/16 at 10:00 Ondansetron HCl (Zofran Inj) 4 mg Q4H PRN IV NAUSEA AND/OR VOMITING; Start 03/31 at 16:00 Hydromorphone HCl (Dilaudid) 2 mg Q3H PRN IV PAIN Last administered on 00:46; Admin Dose 2 MG; Start 07/27/16 at 23:30 DONY HOWADR MD Jul 29, 2016 08:29
[2016-07-29] MEDS: CALCIUM ACETATE 667 MG CAP PO SCH ×3 (08:34→17:35)
[2016-07-29] MEDS: SEVELAMER 800 MG TAB PO SCH ×3 (08:34→17:35)
[2016-07-29] MEDS: PANTOPRAZOLE (EC) 40 MG TAB PO SCH (08:34)
[2016-07-29] MEDS: METOPROLOL (XL) 50 MG TAB PO SCH ×3 (09:00→21:00)
[2016-07-29] MEDS: ISOSORBIDE MONONITRATE(SR)60 MG TAB PO SCH ×2 (09:00→09:26)
[2016-07-29] MEDS ORDERED: MAGNESIUM SULFATE 2 GM/50 ML 50 ML IVPB ONE (09:00)
[2016-07-29] MEDS: CHOLESTYRAMINE (LIGHT) 4 GM PACKET PO SCH ×3 (09:00→21:00)
[2016-07-29] MEDS: LACTOBACILLUS CHEW TAB PO SCH ×3 (09:26→21:00)
[2016-07-29] MEDS: GABAPENTIN 300 MG CAP PO SCH ×3 (09:26→23:33)
[2016-07-29] MEDS: ASPIRIN (EC) 81 MG TAB PO SCH (09:26)
[2016-07-29] MEDS: PRASUGREL HYDROCHLORIDE 10 MG TABLET PO SCH (09:26)
[2016-07-29] MEDS: CALCITRIOL 0.25 MCG CAP PO SCH (09:27)
--- NOTE | 2016-07-29 10:56 | CONS ---
Date/Time of Note Date/Time of Note DATE: 07/29/16 TIME: 10:53 Consult Date/Type/Reason Admit Date/Time Jul 11, 2016 at 12:19 Initial Consult Date 07/27/16 Type of Consultation: Card Objective Vital Signs Date Time Temp Pulse Resp B/P Pulse Ox O2 Delivery O2 Flow Rate FiO2 07/29/16 07:00 72 17 104/63 96 Room Air 07/29/16 04:00 98.3 07/29/16 03:00 2.0 Intake and Output 07/28/16 07/28/16 07/29/16 15:00 23:00 07:00 Intake Total 334 ml 244 ml 52 ml Output Total 0 ml 65 ml Balance 334 ml 179 ml 52 ml Results/Medications Result Diagram: 07/29/16 0400 07/29/16 0400 Results 24 hrs Laboratory Tests Test 07/28/16 11:57 07/28/16 14:14 07/28/16 15:10 07/28/16 17:00 Bedside Glucose 217 182 Activated Partial Thromboplast Time > 180.0 *H 80.1 *H Test 07/28/16 17:47 07/28/16 19:52 07/28/16 21:21 07/29/16 04:00 Bedside Glucose 258 H 298 H 267 H Activated Partial Thromboplast Time > 180.0 *H Alanine Aminotransferase (ALT/SGPT) 59 Albumin 3.2 L Albumin/Globulin Ratio 1.18 Alkaline Phosphatase 198 H Anion Gap 23 H Aspartate Amino Transf (AST/SGOT) 32 Basophils # 0.0 Basophils % 0.4 Blood Morphology Comment Blood Urea Nitrogen 61 H Calcium Level 7.4 L Carbon Dioxide Level 20 L Chloride Level 94 L Creatinine 7.78 #H Direct Bilirubin 0.00 Eosinophils # 0.3 Eosinophils % 3.5 Globulin 2.70 Glucose Level 292 H Hematocrit 25.7 L Hemoglobin 8.5 L Indirect Bilirubin 0.3 Lymphocytes # 1.1 Lymphocytes % 11.2 L Magnesium Level 1.6 L Mean Corpuscular Hemoglobin 30.3 Mean Corpuscular Hemoglobin Concent 33.1 Mean Corpuscular Volume 91.6 Mean Platelet Volume 10.0 Monocytes # 1.0 H Monocytes % 10.0 Neutrophils # 7.4 Neutrophils % 74.9 Nucleated Red Blood Cells # 0.0 Nucleated Red Blood Cells % 0.0 Platelet Count 174 Potassium Level 4.9 Red Blood Count 2.81 L Red Cell Distribution Width 16.7 H Sodium Level 132 L Total Bilirubin 0.3 Total Protein 5.9 L White Blood Count 9.9 Test 07/29/16 06:48 07/29/16 07:28 07/29/16 08:47 07/29/16 10:10 Bedside Glucose 355 H 380 H 357 H Activated Partial Thromboplast Time > 180.0 *H Medications Current Medications Diphenhydramine HCl (Benadryl) 50 mg Q6H PRN IV ITCHING Last administered on 08:36; Admin Dose 50 MG; Start 07/09/16 at 17:00 Non-Formulary Medication (Non-Formulary Insulin) INSULIN PUMP see la... [id number] SC Last administered on 07/29/16 09:40; Admin Dose 0.75 UNIT; Start 07/09/16 at 19:45 Non-Formulary Medication (Non-Formulary Insulin) INSULIN PUMP see la... HS SC Last administered on 07/28/16 21:22; Admin Dose 5 UNIT; Start 07/09/16 at 21:00 Miscellaneous Information 1 ea NOTE XX ; Start 07/09/16 at 18:30 Glucose (Glutose) 15 gm Q15M PRN PO DECREASED GLUCOSE; Start 07/09/16 at 18:30 Glucose (Glutose) 22.5 gm Q15M PRN PO DECREASED GLUCOSE; Start 07/09/16 at 18: 30 Dextrose (D50w Syringe) 25 ml Q15M PRN IV DECREASED GLUCOSE Last administered on 07/25/16 17:08; Admin Dose 25 ML; Start 07/09/16 at 18:30 Dextrose (D50w Syringe) 50 ml Q15M PRN IV DECREASED GLUCOSE Last administered on 07/19/16 20:58; Admin Dose 50 ML; Start 07/09/16 at 18:30 Glucagon (Glucagen) 1 mg Q15M PRN IM DECREASED GLUCOSE; Start 07/09/16 at 18:30 Glucose (Glutose) 15 gm Q15M PRN BUCCAL DECREASED GLUCOSE; Start 07/09/16 at 18 :30 Aspirin (Halfprin) 81 mg DAILY PO Last administered on 07/29/16 09:26; Admin Dose 81 MG; Start 07/10/16 at 09:00 Atorvastatin Calcium (Lipitor) 80 mg QHS PO Last administered on 07/28/16 21: 20; Admin Dose 80 MG; Start 07/10/16 at 21:00 Clonidine (Catapres) 0.1 mg Q6 PO Last administered on 07/29/16 00:04; Admin Dose 0.1 MG; Start 07/10/16 at 12:00 Isosorbide Mononitrate (Imdur) 60 mg DAILY PO Last administered on 07/28/16 08 :51; Admin Dose 60 MG; Start 07/10/16 at 10:00 Lactobacillus Acidoph/Bulgaricus (Floranex) 1 tab TID PO Last administered on 09:26; Admin Dose 1 TAB; Start 07/10/16 at 09:00 Metoprolol Succinate (Toprol Xl) 50 mg BID PO Last administered on 07/28/16 22 :34; Admin Dose 50 MG; Start 07/10/16 at 10:00 Prasugrel (Effient) 10 mg DAILY PO Last administered on 07/29/16 09:26; Admin Dose 10 MG; Start 07/10/16 at 10:30 Acetaminophen (Tylenol Tab) 500 mg Q4H PRN PO PAIN AND OR ELEVATED TEMP Last administered on 07/28/16 18:26; Admin Dose 500 MG; Start 07/10/16 at 09:00 Cholestyramine Resin (Questran Light) 4 gm BID PO Last administered on 10:00; Admin Dose 4 GM; Start 07/11/16 at 09:00 Gabapentin (Neurontin) 600 mg TID PO Last administered on 07/29/16 09:26; Admin Dose 600 MG; Start 07/14/16 at 21:00 Pantoprazole (Protonix Tab) 40 mg DAILY@06 PO Last administered on 07/29/16 08 :34; Admin Dose 40 MG; Start 07/16/16 at 06:00 Calcitriol (Rocaltrol) 0.5 mcg DAILY PO Last administered on 07/29/16 09:27; Admin Dose 0.5 MCG; Start 07/24/16 at 10:00 Ondansetron HCl (Zofran Inj) 4 mg Q4H PRN IV NAUSEA AND/OR VOMITING; Start 03/31 at 16:00 Hydromorphone HCl 2 mg 2 mg Q3H PRN IV PAIN Last administered on 07/29/16 08: 36; Admin Dose 2 MG; Start 07/27/16 at 23:30 Magnesium Sulfate (Magnesium Sulfate 2 Gm/50 ml) 50 ml @ 25 mls/hr ONCE ONCE IVPB Last administered on 07/29/16 09:38; Admin Dose 25 MLS/HR; Start at 09:00; Stop 07/29/16 at 10:59 Assessment/Plan Chief Complaint/Hosp Course Patietn is known to me , He has PCI of LAD and PAD. 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 called in for pre op today by Amina. 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 Plan to f/u while he is in patient. Cardiac mcdonald pt is stable Pt has severe PAD in Right SFA as well. CYNDIE GARCIA MD Jul 29, 2016 10:56
[2016-07-29] MEDS: PATIROMER CALCIUM SORBITEX 8.4 GM PKT PO SCH (11:51)
--- NOTE | 2016-07-29 13:03 | PN ---
Date/Time of Note Date/Time of Note DATE: 07/29/16 TIME: 13:01 Assessment/Plan Lines/Catheters IV Catheter Type (from [facility]): Portacath Foster in Place (from [facility]): No Assessment/Plan Chief Complaint/Hosp Course -End-stage renal disease: It seems that the patient's left upper extremity fistula is functioning well. Recommend continue with his hemodialysis sessions via the fistula. Patient also had his recent Perm-A-Cath removed. From a vascular standpoint, we will continue his fistula surveillance as an outpatient. -Bilateral lower extremity atherosclerosis: S/P angio with LLE SFA severe stenosis. 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 S/P Right ROTARY MACHINE OPERATOR exploration and repair of pseudoaneurysm -Right CFV DVT likely developed post angiogram manual compression. Continue with anticoagulation for now and eventually transition to PO regimen -Transfer to med/surg with neurovasc checks Q4 -Will need PT/OT and OOB FWB -Optimize vascular status (BP meds, diet, nutrition, exercise, sugar control, antiplatelets). -Discussed findings with plan and management with the patient and he understands. -Thank you for allowing us to partake in the care of your patient. Please call with any questions. Problems: Subjective 24 Hr Interval Summary no new vascular events overnight, incisional tenderness Exam/Review of Systems Vital Signs Vitals Vital Signs Date Time Temp Pulse Resp B/P Pulse Ox O2 Delivery O2 Flow Rate FiO2 07/29/16 08:00 78 07/29/16 07:00 17 104/63 96 Room Air 07/29/16 04:00 98.3 07/29/16 03:00 2.0 Intake and Output 07/28/16 07/28/16 07/29/16 15:00 23:00 07:00 Intake Total 334 ml 244 ml 52 ml Output Total 0 ml 65 ml Balance 334 ml 179 ml 52 ml Exam Free Text/Dictation GENERAL: Alert and oriented x3. PULMONARY: Clear to auscultation bilaterally. CARDIOVASCULAR: S1, S2 present. ABDOMEN: Soft, nontender, nondistended. Bowel sounds positive. EXTREMITIES: Left upper extremity palpable brachial pulse. Motor, sensory intact. Capillary refill 2 to 3 seconds. Surgical scars all well healed. Fistula with bruit and thrill present Right lower extremity palpable femoral pulse, groin with prevena wound vac intact, incisional tenderness, Dopplerable AT and PT biphasic, Motor and sensory intact. Capillary refill 3 seconds, edema 1-2+ Jim wrap intact Left lower extremity palpable femoral pulse, palpable pedal pulse. Motor and sensory intact. Capillary refill 2 to 3 seconds Results Result Diagram: [id number]/29/[id number]/16399 JOE BARR MD Jul 29, 2016 13:02
--- NOTE | 2016-07-29 16:05 | PN ---
Date/Time of Note Date/Time of Note DATE: 07/29/16 TIME: 16:02 Assessment/Plan VTE Prophylaxis VTE Prophylaxis Intervention: SCD's Lines/Catheters IV Catheter Type (from [facility]): Portacath Urinary Cath still in place: No Assessment/Plan Chief Complaint/Hosp Course ASSESSMENT AND PLAN: 1. Diarrhea with recent history of Clostridium difficile colitis, resolved. Continue patient on vancomycin and Questran. Dr. Gomez is following in gastroenterology consultation 2. Dehydration secondary to diarrhea with recent history of Clostridium difficile colitis. Stool for C. difficile is negative. 3. Type 1 diabetes mellitus with diabetic nephropathy. Continue NovoLog per insulin pump. 4. End-stage renal disease, hemodialysis dependent. Dr. Hubbard is following the patient in nephrology consultation. Continue dialysis per nephrology. 5. Coronary artery disease. Continue Imdur and metoprolol. 6. Hypertension. 7. Bilateral lower extremities pain. Dr. Orosco is following and rheumatology consultation. 8. Lateral lower extremities atherosclerosis and left lower extremity disabling claudication. is following in vascular surgery consultation. S/P angio with LLE SFA severe stenosis. S/p Left femoral popliteal stenting on 07-25, s/p Exploration of right common femoral artery and control of bleeding on 07-27. Continue heparin drip per protocol, ICU care, follow-up vascular surgery recommendations. Continue heparin for deep venous thrombosis prophylaxis and Pepcid for peptic ulcer disease prophylaxis. Further recommendations based on clinical course. Plan of care discussed with Dr. Rosales. Problems: Subjective 24 Hr Interval Summary Free Text/Dictation Heparin drip is currently on hold, patient's right lower extremities wound to wound VAC, hyperglycemia, continue insulin via insulin pump, diabetic education. Exam/Review of Systems Vital Signs Vitals Vital Signs Date Time Temp Pulse Resp B/P Pulse Ox O2 Delivery O2 Flow Rate FiO2 07/29/16 12:00 87 07/29/16 07:00 17 104/63 96 Room Air 07/29/16 04:00 98.3 07/29/16 03:00 2.0 Intake and Output 07/28/16 07/28/16 07/29/16 15:00 23:00 07:00 Intake Total 334 ml 244 ml 52 ml Output Total 0 ml 65 ml Balance 334 ml 179 ml 52 ml Exam GENERAL: Well-developed, well-nourished male, currently appears pale, awake, alert. HEENT: The patient has right eye prosthesis. Left pupil is equal, round, reactive to light and accommodation. NECK: Supple. No cervical lymphadenopathy, no thyromegaly. CHEST: Lungs clear bilaterally. There are no rhonchi, wheezes, rales noted. CARDIOVASCULAR: Normal S1, S2. No murmurs, gallops, clicks, rubs noted. ABDOMEN: Flat, soft, nondistended. The patient has generalized tenderness to epigastric tenderness on palpation. No guarding. EXTREMITIES: No edema, clubbing, cyanosis. Left upper extremity AV graft with a palpable thrill and audible bruit. Right lower extremity status post surgical intervention with intact dressing and wound VAC. SKIN: No rash, petechiae noted. NEUROLOGIC: The patient is awake, alert, and oriented x3. Results Result Diagram: 07/29/16 0400 07/29/16 0400 Results 24 hrs Laboratory Tests Test 07/28/16 17:00 07/28/16 17:47 07/28/16 19:52 07/28/16 21:21 Activated Partial Thromboplast Time 80.1 *H Bedside Glucose 258 H 298 H 267 H Test 07/29/16 04:00 07/29/16 06:48 07/29/16 07:28 07/29/16 08:47 Activated Partial Thromboplast Time > 180.0 *H > 180.0 *H Alanine Aminotransferase (ALT/SGPT) 59 Albumin 3.2 L Albumin/Globulin Ratio 1.18 Alkaline Phosphatase 198 H Anion Gap 23 H Aspartate Amino Transf (AST/SGOT) 32 Basophils # 0.0 Basophils % 0.4 Blood Morphology Comment Blood Urea Nitrogen 61 H Calcium Level 7.4 L Carbon Dioxide Level 20 L Chloride Level 94 L Creatinine 7.78 #H Direct Bilirubin 0.00 Eosinophils # 0.3 Eosinophils % 3.5 Globulin 2.70 Glucose Level 292 H Hematocrit 25.7 L Hemoglobin 8.5 L Indirect Bilirubin 0.3 Lymphocytes # 1.1 Lymphocytes % 11.2 L Magnesium Level 1.6 L Mean Corpuscular Hemoglobin 30.3 Mean Corpuscular Hemoglobin Concent 33.1 Mean Corpuscular Volume 91.6 Mean Platelet Volume 10.0 Monocytes # 1.0 H Monocytes % 10.0 Neutrophils # 7.4 Neutrophils % 74.9 Nucleated Red Blood Cells # 0.0 Nucleated Red Blood Cells % 0.0 Platelet Count 174 Potassium Level 4.9 Red Blood Count 2.81 L Red Cell Distribution Width 16.7 H Sodium Level 132 L Total Bilirubin 0.3 Total Protein 5.9 L White Blood Count 9.9 Bedside Glucose 355 H 380 H Test 07/29/16 10:10 07/29/16 11:31 07/29/16 11:55 07/29/16 13:50 Bedside Glucose 357 H 379 H Activated Partial Thromboplast Time > 180.0 *H > 180.0 *H Medications Medications Current Medications Diphenhydramine HCl (Benadryl) 50 mg Q6H PRN IV ITCHING Last administered on 14:39; Admin Dose 50 MG; Start 07/09/16 at 17:00 Non-Formulary Medication (Non-Formulary Insulin) INSULIN PUMP see la... [id number] SC Last administered on 07/29/16 13:46; Admin Dose 0.75 UNIT; Start 07/09/16 at 19:45 Non-Formulary Medication (Non-Formulary Insulin) INSULIN PUMP see la... HS SC Last administered on 07/28/16 21:22; Admin Dose 5 UNIT; Start 07/09/16 at 21:00 Miscellaneous Information 1 ea NOTE XX ; Start 07/09/16 at 18:30 Glucose (Glutose) 15 gm Q15M PRN PO DECREASED GLUCOSE; Start 07/09/16 at 18:30 Glucose (Glutose) 22.5 gm Q15M PRN PO DECREASED GLUCOSE; Start 07/09/16 at 18: 30 Dextrose (D50w Syringe) 25 ml Q15M PRN IV DECREASED GLUCOSE Last administered on 07/25/16 17:08; Admin Dose 25 ML; Start 07/09/16 at 18:30 Dextrose (D50w Syringe) 50 ml Q15M PRN IV DECREASED GLUCOSE Last administered on 07/19/16 20:58; Admin Dose 50 ML; Start 07/09/16 at 18:30 Glucagon (Glucagen) 1 mg Q15M PRN IM DECREASED GLUCOSE; Start 07/09/16 at 18:30 Glucose (Glutose) 15 gm Q15M PRN BUCCAL DECREASED GLUCOSE; Start 07/09/16 at 18 :30 Aspirin (Halfprin) 81 mg DAILY PO Last administered on 07/29/16 09:26; Admin Dose 81 MG; Start 07/10/16 at 09:00 Atorvastatin Calcium (Lipitor) 80 mg QHS PO Last administered on 07/28/16 21: 20; Admin Dose 80 MG; Start 07/10/16 at 21:00 Clonidine (Catapres) 0.1 mg Q6 PO Last administered on 07/29/16 00:04; Admin Dose 0.1 MG; Start 07/10/16 at 12:00 Isosorbide Mononitrate (Imdur) 60 mg DAILY PO Last administered on 07/28/16 08 :51; Admin Dose 60 MG; Start 07/10/16 at 10:00 Lactobacillus Acidoph/Bulgaricus (Floranex) 1 tab TID PO Last administered on 13:26; Admin Dose 1 TAB; Start 07/10/16 at 09:00 Metoprolol Succinate (Toprol Xl) 50 mg BID PO Last administered on 07/28/16 22 :34; Admin Dose 50 MG; Start 07/10/16 at 10:00 Prasugrel (Effient) 10 mg DAILY PO Last administered on 07/29/16 09:26; Admin Dose 10 MG; Start 07/10/16 at 10:30 Acetaminophen (Tylenol Tab) 500 mg Q4H PRN PO PAIN AND OR ELEVATED TEMP Last administered on 07/28/16 18:26; Admin Dose 500 MG; Start 07/10/16 at 09:00 Cholestyramine Resin (Questran Light) 4 gm BID PO Last administered on 10:00; Admin Dose 4 GM; Start 07/11/16 at 09:00 Gabapentin (Neurontin) 600 mg TID PO Last administered on 07/29/16 13:25; Admin Dose 600 MG; Start 07/14/16 at 21:00 Pantoprazole (Protonix Tab) 40 mg DAILY@06 PO Last administered on 07/29/16 08 :34; Admin Dose 40 MG; Start 07/16/16 at 06:00 Calcitriol (Rocaltrol) 0.5 mcg DAILY PO Last administered on 07/29/16 09:27; Admin Dose 0.5 MCG; Start 07/24/16 at 10:00 Ondansetron HCl (Zofran Inj) 4 mg Q4H PRN IV NAUSEA AND/OR VOMITING; Start 03/31 at 16:00 Hydromorphone HCl (Dilaudid) 2 mg Q3H PRN IV PAIN Last administered on t 14:38; Admin Dose 2 MG; Start 07/27/16 at 23:30 ANGELINA CASTREJON Jul 29, 2016 16:05
[2016-07-29] MEDS: HEPARIN 25000 UNITS/250 ML 250 ML IV SCH ×2 (16:49→23:29)
[2016-07-29] MEDS ORDERED: INSULIN ASPART [NOVOLOG] 3 ML PEN SC ONE (20:00)
[2016-07-29] MEDS: LORAZEPAM 2 MG INJ IV SCH (20:10)
[2016-07-29] MEDS: DIPHENHYDRAMINE 50 MG INJ IV SCH (20:10)
[2016-07-29] MEDS: ATORVASTATIN 80 MG TAB PO SCH (21:00)
[2016-07-30] MEDS: HYDROmorphONE 2 MG/ML SYG IV PRN ×7 (01:27→21:55)
[2016-07-30] MEDS: ACETAMINOPHEN 500 MG TAB PO PRN ×2 (01:27→20:06)
[2016-07-30] MEDS: DIPHENHYDRAMINE 50 MG INJ IV PRN ×4 (04:14→21:55)
[2016-07-30] MEDS: PANTOPRAZOLE (EC) 40 MG TAB PO SCH (06:42)
[2016-07-30 07:27] VITALS: BP 113/65; RESP 16
[2016-07-30] MEDS: PRASUGREL HYDROCHLORIDE 10 MG TABLET PO SCH (08:57)
[2016-07-30] MEDS: GABAPENTIN 300 MG CAP PO SCH ×3 (08:57→21:45)
[2016-07-30] MEDS: ASPIRIN (EC) 81 MG TAB PO SCH (08:57)
[2016-07-30] MEDS: CALCIUM ACETATE 667 MG CAP PO SCH ×3 (08:58→17:29)
[2016-07-30] MEDS: CALCITRIOL 0.25 MCG CAP PO SCH (08:58)
[2016-07-30] MEDS: SEVELAMER 800 MG TAB PO SCH ×3 (08:58→17:29)
[2016-07-30] MEDS: CHOLESTYRAMINE (LIGHT) 4 GM PACKET PO SCH ×2 (08:59→21:00)
[2016-07-30] MEDS: METOPROLOL (XL) 50 MG TAB PO SCH ×3 (09:00→21:46)
[2016-07-30] MEDS: ISOSORBIDE MONONITRATE(SR)60 MG TAB PO SCH ×2 (09:00→12:46)
[2016-07-30] MEDS: LACTOBACILLUS CHEW TAB PO SCH ×3 (10:02→21:45)
[2016-07-30] MEDS: DIPHENHYDRAMINE 50 MG INJ IV SCH (10:03)
[2016-07-30 10:32] LABS: BASOPHIL # 0.1 10^3/ul (0.0-0.1); BASOPHILS % 1.5 % (0.0-2.0); EOSINOPHILS # 0.4 10^3/ul (0.0-0.5); EOSINOPHILS % 5.3 % (0.0-7.0); HEMATOCRIT 32.6 % (42.0-52.0); HEMOGLOBIN 10.8 g/dl (14.0-18.0); LYMPHOCYTES # 0.7 10^3/ul (0.8-2.9); LYMPHOCYTES % 9.5 % (15.0-51.0); MEAN CORPUSCULAR HEMOGLOBIN 29.8 pg (29.0-33.0); MEAN CORPUSCULAR VOLUME 90.3 fl (82.0-101.0); MEAN PLATELET VOLUME 9.9 fl (7.4-10.4); MONOCYTE # 0.8 10^3/ul (0.3-0.9); MONOCYTES % 10.1 % (0.0-11.0); NEUTROPHIL # 5.8 10^3/ul (1.6-7.5); NEUTROPHILS % 73.6 % (39.0-77.0); PLATELET COUNT 213 10^3/UL (140-440); RED BLOOD COUNT 3.61 10^6/ul (4.70-6.10); RED CELL DISTRIBUTION WIDTH 17.2 % (11.5-14.5); UNCORRECTED WBC 7.9 10^3/ul (4.8-10.8); WHITE BLOOD COUNT 7.9 10^3/ul (4.8-10.8)
[2016-07-30 10:34] LABS: CONDITION 1; LH ANALYZER COMMENTS 1
[2016-07-30 10:48] LABS: ALBUMIN 3.8 g/dl (3.3-4.9)
[2016-07-30 10:49] LABS: POTASSIUM 4.1 mmol/L (3.5-5.1)
[2016-07-30 10:51] LABS: BILIRUBIN,INDIRECT 0.2 mg/dl (0-1.1); BILIRUBIN,TOTAL 0.2 mg/dl (0.2-1.3); CREATININE 6.64 mg/dl (0.61-1.24)
[2016-07-30 10:52] LABS: ALBUMIN/GLOBULIN RATIO 1.15; CALCIUM 8.3 mg/dl (8.4-10.2); TOTAL PROTEIN 7.1 g/dl (6.1-8.1)
[2016-07-30] MEDS: PATIROMER CALCIUM SORBITEX 8.4 GM PKT PO SCH (12:52)
[2016-07-30] MEDS: HEPARIN 25000 UNITS/250 ML 250 ML IV SCH (13:00)
[2016-07-30] MEDS ORDERED: VANCOMYCIN IV PER PHARMACY XX SCH (13:30)
--- NOTE | 2016-07-30 13:43 | CONS ---
Date/Time of Note Date/Time of Note DATE: 07/30/16 TIME: 13:36 Assessment/Plan Assessment/Plan Chief Complaint/Hosp Course #1 end-stage renal disease, on maintenance hemodialysis Thursday. He has dialysis scheduled for tomorrow. #2 bilateral foot pain . He has had this pain even before his surgeries . #3 anemia. H/H is higher after blood transfusion yesterday . #4 hyperkalemia . He is taking Veltassa for elevated K . He is on increased dose of the the Veltassa to 16.8 gm a day .potassium is under control . 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 Problems: Consultation Date/Type/Reason Admit Date/Time Jul 11, 2016 at 12:19 Type of Consultation: renal 24 HR Interval Summary Free Text/Dictation he is now 3 days post op a R groin surgery for a femoral artery pseudoaneurysm after and angioplasty . He c/o bilateral foot pain Exam/Review of Systems Vital Signs Vitals Vital Signs Date Time Temp Pulse Resp B/P Pulse Ox O2 Delivery O2 Flow Rate FiO2 07/30/16 07:27 98.4 80 16 113/65 95 07/29/16 18:00 Room Air 07/29/16 03:00 2.0 Intake and Output 07/29/16 07/29/16 07/30/16 15:00 23:00 07:00 Intake Total 700 ml 1330 ml Output Total 350 ml 225 ml 5100 ml Balance 350 ml -225 ml -3770 ml Exam Constitutional: alert, oriented, well developed Psych: nl mood/affect Respiratory: clear to auscultation, normal air movement Cardiovascular: regular rate and rhythm Gastrointestinal: soft Musculoskeletal: swelling Results Result Diagram: 07/30/16 1015 07/30/16 1015 Results 24 hrs Laboratory Tests Test 07/29/16 13:50 07/29/16 16:00 07/29/16 17:31 07/29/16 18:50 Activated Partial Thromboplast Time > 180.0 *H 47.3 H Bedside Glucose 296 H 280 H Test 07/29/16 20:26 07/29/16 22:33 07/30/16 03:25 07/30/16 06:35 Bedside Glucose 165 210 Activated Partial Thromboplast Time 34.0 > 180.0 *H Test 07/30/16 06:44 07/30/16 08:47 07/30/16 10:15 07/30/16 11:32 Bedside Glucose 172 175 166 Activated Partial Thromboplast Time 174.8 *H Alanine Aminotransferase (ALT/SGPT) 57 Albumin 3.8 Albumin/Globulin Ratio 1.15 Alkaline Phosphatase 216 H Anion Gap 21 H Aspartate Amino Transf (AST/SGOT) 34 Basophils # 0.1 Basophils % 1.5 Blood Morphology Comment Blood Urea Nitrogen 42 #H Calcium Level 8.3 L Carbon Dioxide Level 26 Chloride Level 94 L Creatinine 6.64 H Direct Bilirubin 0.00 Eosinophils # 0.4 Eosinophils % 5.3 Globulin 3.30 H Glucose Level 201 Hematocrit 32.6 #L Hemoglobin 10.8 #L Indirect Bilirubin 0.2 Lymphocytes # 0.7 L Lymphocytes % 9.5 L Mean Corpuscular Hemoglobin 29.8 Mean Corpuscular Hemoglobin Concent 33.0 Mean Corpuscular Volume 90.3 Mean Platelet Volume 9.9 Monocytes # 0.8 Monocytes % 10.1 Neutrophils # 5.8 Neutrophils % 73.6 Nucleated Red Blood Cells # 0.0 Nucleated Red Blood Cells % 0.0 Platelet Count 213 # Potassium Level 4.1 Red Blood Count 3.61 #L Red Cell Distribution Width 17.2 H Sodium Level 137 Total Bilirubin 0.2 Total Protein 7.1 # White Blood Count 7.9 # Test 07/30/16 12:05 Activated Partial Thromboplast Time 37.5 H Medications Medications Current Medications Diphenhydramine HCl (Benadryl) 50 mg Q6H PRN IV ITCHING Last administered on 10:04; Admin Dose 50 MG; Start 07/09/16 at 17:00 Non-Formulary Medication (Non-Formulary Insulin) INSULIN PUMP see la... [id number] SC Last administered on 07/30/16 12:00; Admin Dose 7.5 UNIT; Start 07/09/16 at 19:45 Non-Formulary Medication (Non-Formulary Insulin) INSULIN PUMP see la... HS SC Last administered on 07/28/16 21:22; Admin Dose 5 UNIT; Start 07/09/16 at 21:00 Miscellaneous Information 1 ea NOTE XX ; Start 07/09/16 at 18:30 Glucose (Glutose) 15 gm Q15M PRN PO DECREASED GLUCOSE; Start 07/09/16 at 18:30 Glucose (Glutose) 22.5 gm Q15M PRN PO DECREASED GLUCOSE; Start 07/09/16 at 18: 30 Dextrose (D50w Syringe) 25 ml Q15M PRN IV DECREASED GLUCOSE Last administered on 07/25/16 17:08; Admin Dose 25 ML; Start 07/09/16 at 18:30 Dextrose (D50w Syringe) 50 ml Q15M PRN IV DECREASED GLUCOSE Last administered on 07/19/16 20:58; Admin Dose 50 ML; Start 07/09/16 at 18:30 Glucagon (Glucagen) 1 mg Q15M PRN IM DECREASED GLUCOSE; Start 07/09/16 at 18:30 Glucose (Glutose) 15 gm Q15M PRN BUCCAL DECREASED GLUCOSE; Start 07/09/16 at 18 :30 Aspirin (Halfprin) 81 mg DAILY PO Last administered on 07/30/16 08:57; Admin Dose 81 MG; Start 07/10/16 at 09:00 Atorvastatin Calcium (Lipitor) 80 mg QHS PO Last administered on 07/28/16 21: 20; Admin Dose 80 MG; Start 07/10/16 at 21:00 Clonidine (Catapres) 0.1 mg Q6 PO Last administered on 07/30/16 12:37; Admin Dose 0.1 MG; Start 07/10/16 at 12:00 Isosorbide Mononitrate (Imdur) 60 mg DAILY PO Last administered on 07/30/16 12 :46; Admin Dose 60 MG; Start 07/10/16 at 10:00 Lactobacillus Acidoph/Bulgaricus (Floranex) 1 tab TID PO Last administered on 12:38; Admin Dose 1 TAB; Start 07/10/16 at 09:00 Metoprolol Succinate (Toprol Xl) 50 mg BID PO Last administered on 07/30/16 12 :45; Admin Dose 50 MG; Start 07/10/16 at 10:00 Prasugrel (Effient) 10 mg DAILY PO Last administered on 07/30/16 08:57; Admin Dose 10 MG; Start 07/10/16 at 10:30 Acetaminophen (Tylenol Tab) 500 mg Q4H PRN PO PAIN AND OR ELEVATED TEMP Last administered on 07/30/16 01:27; Admin Dose 500 MG; Start 07/10/16 at 09:00 Cholestyramine Resin (Questran Light) 4 gm BID PO Last administered on 10:00; Admin Dose 4 GM; Start 07/11/16 at 09:00 Gabapentin (Neurontin) 600 mg TID PO Last administered on 07/30/16 12:37; Admin Dose 600 MG; Start 07/14/16 at 21:00 Pantoprazole (Protonix Tab) 40 mg DAILY@06 PO Last administered on 07/30/16 06 :42; Admin Dose 40 MG; Start 07/16/16 at 06:00 Calcitriol (Rocaltrol) 0.5 mcg DAILY PO Last administered on 07/30/16 08:58; Admin Dose 0.5 MCG; Start 07/24/16 at 10:00 Ondansetron HCl (Zofran Inj) 4 mg Q4H PRN IV NAUSEA AND/OR VOMITING; Start 03/31 at 16:00 Hydromorphone HCl (Dilaudid) 2 mg Q3H PRN IV PAIN Last administered on 13:10; Admin Dose 2 MG; Start 07/27/16 at 23:30 DONY HOWARD MD Jul 30, 2016 13:43
[2016-07-30] MEDS ORDERED: VANCOMYCIN 1.25 GM in SOD CHLORIDE 0.9% 250 ML IVPB SCH (14:30)
--- NOTE | 2016-07-30 16:08 | PN ---
Date/Time of Note Date/Time of Note DATE: 07/30/16 TIME: 16:02 Assessment/Plan VTE Prophylaxis VTE Prophylaxis Intervention: SCD's Lines/Catheters IV C[facility]ter Type (from [facility]): PORTACATH Urinary Cath still in place: No Assessment/Plan Chief Complaint/Hosp Course ASSESSMENT AND PLAN: 1. Diarrhea with recent history of Clostridium difficile colitis, resolved. Continue patient on vancomycin and Questran. Dr. Gomez is following in gastroenterology consultation 2. Dehydration secondary to diarrhea with recent history of Clostridium difficile colitis. Stool for C. difficile is negative. 3. Type 1 diabetes mellitus with diabetic nephropathy. Continue NovoLog per insulin pump. 4. End-stage renal disease, hemodialysis dependent. Dr. Hubbard is following the patient in nephrology consultation. Continue dialysis per nephrology. 5. Coronary artery disease. Continue Imdur and metoprolol. 6. Hypertension. 7. Bilateral lower extremities pain. Dr. Orosco is following and rheumatology consultation. 8. Lateral lower extremities atherosclerosis and left lower extremity disabling claudication. is following in vascular surgery consultation. S/P angio with LLE SFA severe stenosis. S/p Left femoral popliteal stenting on 07-25, s/p Exploration of right common femoral artery and control of bleeding on 07-27. Started on Eliquis, follow-up vascular surgery recommendations. Continue heparin for deep venous thrombosis prophylaxis and Pepcid for peptic ulcer disease prophylaxis. Further recommendations based on clinical course. Plan of care discussed with Dr. Rosales. Problems: Subjective 24 Hr Interval Summary Free Text/Dictation Blood sugar is better controlled today, pain is well controlled. Exam/Review of Systems Vital Signs Vitals Vital Signs Date Time Temp Pulse Resp B/P Pulse Ox O2 Delivery O2 Flow Rate FiO2 07/30/16 07:27 98.4 80 16 113/65 95 07/29/16 18:00 Room Air 07/29/16 03:00 2.0 Intake and Output 07/29/16 07/29/16 07/30/16 15:00 23:00 07:00 Intake Total 700 ml 1330 ml Output Total 350 ml 225 ml 5100 ml Balance 350 ml -225 ml -3770 ml Exam GENERAL: Well-developed, well-nourished male, currently appears pale, awake, alert. HEENT: The patient has right eye prosthesis. Left pupil is equal, round, reactive to light and accommodation. NECK: Supple. No cervical lymphadenopathy, no thyromegaly. CHEST: Lungs clear bilaterally. There are no rhonchi, wheezes, rales noted. CARDIOVASCULAR: Normal S1, S2. No murmurs, gallops, clicks, rubs noted. ABDOMEN: Flat, soft, nondistended. The patient has generalized tenderness to epigastric tenderness on palpation. No guarding. EXTREMITIES: No edema, clubbing, cyanosis. Left upper extremity AV graft with a palpable thrill and audible bruit. Right lower extremity status post surgical intervention with intact dressing and wound VAC. SKIN: No rash, petechiae noted. NEUROLOGIC: The patient is awake, alert, and oriented x3. Results Result Diagram: 07/30/16 1015 07/30/16 1015 Results 24 hrs Laboratory Tests Test 07/29/16 17:31 07/29/16 18:50 07/29/16 20:26 07/29/16 22:33 Bedside Glucose 296 H 280 H 165 Activated Partial Thromboplast Time 34.0 Test 07/30/16 03:25 07/30/16 06:35 07/30/16 06:44 07/30/16 08:47 Bedside Glucose 210 172 175 Activated Partial Thromboplast Time > 180.0 *H Test 07/30/16 10:15 07/30/16 11:32 07/30/16 12:05 Activated Partial Thromboplast Time 174.8 *H 37.5 H Alanine Aminotransferase (ALT/SGPT) 57 Albumin 3.8 Albumin/Globulin Ratio 1.15 Alkaline Phosphatase 216 H Anion Gap 21 H Aspartate Amino Transf (AST/SGOT) 34 Basophils # 0.1 Basophils % 1.5 Blood Morphology Comment Blood Urea Nitrogen 42 #H Calcium Level 8.3 L Carbon Dioxide Level 26 Chloride Level 94 L Creatinine 6.64 H Direct Bilirubin 0.00 Eosinophils # 0.4 Eosinophils % 5.3 Globulin 3.30 H Glucose Level 201 Hematocrit 32.6 #L Hemoglobin 10.8 #L Indirect Bilirubin 0.2 Lymphocytes # 0.7 L Lymphocytes % 9.5 L Mean Corpuscular Hemoglobin 29.8 Mean Corpuscular Hemoglobin Concent 33.0 Mean Corpuscular Volume 90.3 Mean Platelet Volume 9.9 Monocytes # 0.8 Monocytes % 10.1 Neutrophils # 5.8 Neutrophils % 73.6 Nucleated Red Blood Cells # 0.0 Nucleated Red Blood Cells % 0.0 Platelet Count 213 # Potassium Level 4.1 Red Blood Count 3.61 #L Red Cell Distribution Width 17.2 H Sodium Level 137 Total Bilirubin 0.2 Total Protein 7.1 # White Blood Count 7.9 # Bedside Glucose 166 Medications Medications Current Medications Diphenhydramine HCl (Benadryl) 50 mg Q6H PRN IV ITCHING Last administered on 16:00; Admin Dose 50 MG; Start 07/09/16 at 17:00 Non-Formulary Medication (Non-Formulary Insulin) INSULIN PUMP see la... [id number] SC Last administered on 07/30/16 12:00; Admin Dose 7.5 UNIT; Start 07/09/16 at 19:45 Non-Formulary Medication (Non-Formulary Insulin) INSULIN PUMP see la... HS SC Last administered on 07/28/16 21:22; Admin Dose 5 UNIT; Start 07/09/16 at 21:00 Miscellaneous Information 1 ea NOTE XX ; Start 07/09/16 at 18:30 Glucose (Glutose) 15 gm Q15M PRN PO DECREASED GLUCOSE; Start 07/09/16 at 18:30 Glucose (Glutose) 22.5 gm Q15M PRN PO DECREASED GLUCOSE; Start 07/09/16 at 18: 30 Dextrose (D50w Syringe) 25 ml Q15M PRN IV DECREASED GLUCOSE Last administered on 07/25/16 17:08; Admin Dose 25 ML; Start 07/09/16 at 18:30 Dextrose (D50w Syringe) 50 ml Q15M PRN IV DECREASED GLUCOSE Last administered on 07/19/16 20:58; Admin Dose 50 ML; Start 07/09/16 at 18:30 Glucagon (Glucagen) 1 mg Q15M PRN IM DECREASED GLUCOSE; Start 07/09/16 at 18:30 Glucose (Glutose) 15 gm Q15M PRN BUCCAL DECREASED GLUCOSE; Start 07/09/16 at 18 :30 Aspirin (Halfprin) 81 mg DAILY PO Last administered on 07/30/16 08:57; Admin Dose 81 MG; Start 07/10/16 at 09:00 Atorvastatin Calcium (Lipitor) 80 mg QHS PO Last administered on 07/28/16 21: 20; Admin Dose 80 MG; Start 07/10/16 at 21:00 Clonidine (Catapres) 0.1 mg Q6 PO Last administered on 07/30/16 12:37; Admin Dose 0.1 MG; Start 07/10/16 at 12:00 Isosorbide Mononitrate (Imdur) 60 mg DAILY PO Last administered on 07/30/16 12 :46; Admin Dose 60 MG; Start 07/10/16 at 10:00 Lactobacillus Acidoph/Bulgaricus (Floranex) 1 tab TID PO Last administered on 12:38; Admin Dose 1 TAB; Start 07/10/16 at 09:00 Metoprolol Succinate (Toprol Xl) 50 mg BID PO Last administered on 07/30/16 12 :45; Admin Dose 50 MG; Start 07/10/16 at 10:00 Prasugrel (Effient) 10 mg DAILY PO Last administered on 07/30/16 08:57; Admin Dose 10 MG; Start 07/10/16 at 10:30 Acetaminophen (Tylenol Tab) 500 mg Q4H PRN PO PAIN AND OR ELEVATED TEMP Last administered on 07/30/16 01:27; Admin Dose 500 MG; Start 07/10/16 at 09:00 Cholestyramine Resin (Questran Light) 4 gm BID PO Last administered on 10:00; Admin Dose 4 GM; Start 07/11/16 at 09:00 Gabapentin (Neurontin) 600 mg TID PO Last administered on 07/30/16 12:37; Admin Dose 600 MG; Start 07/14/16 at 21:00 Pantoprazole (Protonix Tab) 40 mg DAILY@06 PO Last administered on 07/30/16 06 :42; Admin Dose 40 MG; Start 07/16/16 at 06:00 Calcitriol (Rocaltrol) 0.5 mcg DAILY PO Last administered on 07/30/16 08:58; Admin Dose 0.5 MCG; Start 07/24/16 at 10:00 Ondansetron HCl (Zofran Inj) 4 mg Q4H PRN IV NAUSEA AND/OR VOMITING; Start 03/31 at 16:00 Hydromorphone HCl (Dilaudid) 2 mg Q3H PRN IV PAIN Last administered on 2/15/ 17at 13:10; Admin Dose 2 MG; Start 07/27/16 at 23:30 Apixaban 2.5 mg 2.5 mg BID PO ; Start 07/30/16 at 21:00 Vancomycin HCl/ Sodium Chloride (Vancocin/NS) 250 ml @ 83.333 mls/ hr ONCE IVPB Last administered on 07/30/16 15:06; Admin Dose 83.333 MLS/HR; Start at 14:30; Stop 07/30/16 at 23:00 ANGELNIA CASTREJON Jul 30, 2016 16:08
--- NOTE | 2016-07-30 17:35 | CONS ---
Date/Time of Note Date/Time of Note DATE: 07/30/16 TIME: 17:34 Assessment/Plan Assessment/Plan Additional Assessment/Plan Additional Assessment/Plan IMPRESSION: 1. Diarrhea. 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 Improved after Questran restarted. C. Diff negative.better 2. Diabetes mellitus. 3. Renal failure. 4. Coronary artery disease. 5. Hypertension. 6.pain lower extremity, 7.rt common femoral artery pseudo aneurysm,rt FV dvt 7.left lower extremity angioplasty and stenting Plan continue Questran vascular intervention as per vascular surgeon Consultation Date/Type/Reason Admit Date/Time Jul 11, 2016 at 12:19 Type of Consultation: renal 24 HR Interval Summary Free Text/Dictation c/o pain lower extremity Exam/Review of Systems Vital Signs Vitals Vital Signs Date Time Temp Pulse Resp B/P Pulse Ox O2 Delivery O2 Flow Rate FiO2 07/30/16 07:27 98.4 80 16 113/65 95 07/29/16 18:00 Room Air 07/29/16 03:00 2.0 Intake and Output 07/29/16 07/29/16 07/30/16 15:00 23:00 07:00 Intake Total 700 ml 1330 ml Output Total 350 ml 225 ml 5100 ml Balance 350 ml -225 ml -3770 ml Exam Constitutional: alert, oriented, well developed Psych: nl mood/affect, no complaints Head: atraumatic, normocephalic Eyes: EOMI, PERRL, nl conjunctiva, nl lids, nl sclera ENMT: nl external ears & nose, nl lips & teeth, nl nasal mucosa & septum Neck: non-tender, supple Respiratory: clear to auscultation, normal air movement Cardiovascular: nl pulses, regular rate and rhythm Gastrointestinal: nl liver, spleen, non-tender, soft Musculoskeletal: nl extremities to inspection, nl gait and stance Extremities: normal pulses 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: TARIFF COMPILER II-XII intact, nl mental status, nl speech, nl strength Skin: nl turgor, No rash or lesions Lymph: nl lymph nodes Results Result Diagram: 07/30/16 1015 07/30/16 1015 Results 24 hrs Laboratory Tests Test 07/29/16 18:50 07/29/16 20:26 07/29/16 22:33 07/30/16 03:25 Bedside Glucose 280 H 165 210 Activated Partial Thromboplast Time 34.0 Test 07/30/16 06:35 07/30/16 06:44 07/30/16 08:47 07/30/16 10:15 Activated Partial Thromboplast Time > 180.0 *H 174.8 *H Bedside Glucose 172 175 Alanine Aminotransferase (ALT/SGPT) 57 Albumin 3.8 Albumin/Globulin Ratio 1.15 Alkaline Phosphatase 216 H Anion Gap 21 H Aspartate Amino Transf (AST/SGOT) 34 Basophils # 0.1 Basophils % 1.5 Blood Morphology Comment Blood Urea Nitrogen 42 #H Calcium Level 8.3 L Carbon Dioxide Level 26 Chloride Level 94 L Creatinine 6.64 H Direct Bilirubin 0.00 Eosinophils # 0.4 Eosinophils % 5.3 Globulin 3.30 H Glucose Level 201 Hematocrit 32.6 #L Hemoglobin 10.8 #L Indirect Bilirubin 0.2 Lymphocytes # 0.7 L Lymphocytes % 9.5 L Mean Corpuscular Hemoglobin 29.8 Mean Corpuscular Hemoglobin Concent 33.0 Mean Corpuscular Volume 90.3 Mean Platelet Volume 9.9 Monocytes # 0.8 Monocytes % 10.1 Neutrophils # 5.8 Neutrophils % 73.6 Nucleated Red Blood Cells # 0.0 Nucleated Red Blood Cells % 0.0 Platelet Count 213 # Potassium Level 4.1 Red Blood Count 3.61 #L Red Cell Distribution Width 17.2 H Sodium Level 137 Total Bilirubin 0.2 Total Protein 7.1 # White Blood Count 7.9 # Test 07/30/16 11:32 07/30/16 12:05 Bedside Glucose 166 Activated Partial Thromboplast Time 37.5 H Medications Medications Current Medications Diphenhydramine HCl (Benadryl) 50 mg Q6H PRN IV ITCHING Last administered on 16:00; Admin Dose 50 MG; Start 07/09/16 at 17:00 Non-Formulary Medication (Non-Formulary Insulin) INSULIN PUMP see la... [id number] SC Last administered on 07/30/16 12:00; Admin Dose 7.5 UNIT; Start 07/09/16 at 19:45 Non-Formulary Medication (Non-Formulary Insulin) INSULIN PUMP see la... HS SC Last administered on 07/28/16 21:22; Admin Dose 5 UNIT; Start 07/09/16 at 21:00 Miscellaneous Information 1 ea NOTE XX ; Start 07/09/16 at 18:30 Glucose (Glutose) 15 gm Q15M PRN PO DECREASED GLUCOSE; Start 07/09/16 at 18:30 Glucose (Glutose) 22.5 gm Q15M PRN PO DECREASED GLUCOSE; Start 07/09/16 at 18: 30 Dextrose (D50w Syringe) 25 ml Q15M PRN IV DECREASED GLUCOSE Last administered on 07/25/16 17:08; Admin Dose 25 ML; Start 07/09/16 at 18:30 Dextrose (D50w Syringe) 50 ml Q15M PRN IV DECREASED GLUCOSE Last administered on 07/19/16 20:58; Admin Dose 50 ML; Start 07/09/16 at 18:30 Glucagon (Glucagen) 1 mg Q15M PRN IM DECREASED GLUCOSE; Start 07/09/16 at 18:30 Glucose (Glutose) 15 gm Q15M PRN BUCCAL DECREASED GLUCOSE; Start 07/09/16 at 18 :30 Aspirin (Halfprin) 81 mg DAILY PO Last administered on 07/30/16 08:57; Admin Dose 81 MG; Start 07/10/16 at 09:00 Atorvastatin Calcium (Lipitor) 80 mg QHS PO Last administered on 07/28/16 21: 20; Admin Dose 80 MG; Start 07/10/16 at 21:00 Clonidine (Catapres) 0.1 mg Q6 PO Last administered on 07/30/16 12:37; Admin Dose 0.1 MG; Start 07/10/16 at 12:00 Isosorbide Mononitrate (Imdur) 60 mg DAILY PO Last administered on 07/30/16 12 :46; Admin Dose 60 MG; Start 07/10/16 at 10:00 Lactobacillus Acidoph/Bulgaricus (Floranex) 1 tab TID PO Last administered on 12:38; Admin Dose 1 TAB; Start 07/10/16 at 09:00 Metoprolol Succinate (Toprol Xl) 50 mg BID PO Last administered on 07/30/16 12 :45; Admin Dose 50 MG; Start 07/10/16 at 10:00 Prasugrel (Effient) 10 mg DAILY PO Last administered on 07/30/16 08:57; Admin Dose 10 MG; Start 07/10/16 at 10:30 Acetaminophen (Tylenol Tab) 500 mg Q4H PRN PO PAIN AND OR ELEVATED TEMP Last administered on 07/30/16 01:27; Admin Dose 500 MG; Start 07/10/16 at 09:00 Cholestyramine Resin (Questran Light) 4 gm BID PO Last administered on 10:00; Admin Dose 4 GM; Start 07/11/16 at 09:00 Gabapentin (Neurontin) 600 mg TID PO Last administered on 07/30/16 12:37; Admin Dose 600 MG; Start 07/14/16 at 21:00 Pantoprazole (Protonix Tab) 40 mg DAILY@06 PO Last administered on 07/30/16 06 :42; Admin Dose 40 MG; Start 07/16/16 at 06:00 Calcitriol (Rocaltrol) 0.5 mcg DAILY PO Last administered on 07/30/16 08:58; Admin Dose 0.5 MCG; Start 07/24/16 at 10:00 Ondansetron HCl (Zofran Inj) 4 mg Q4H PRN IV NAUSEA AND/OR VOMITING; Start 03/31 at 16:00 Hydromorphone HCl (Dilaudid) 2 mg Q3H PRN IV PAIN Last administered on 16:02; Admin Dose 2 MG; Start 07/27/16 at 23:30 Apixaban 2.5 mg 2.5 mg BID PO ; Start 07/30/16 at 21:00 Vancomycin HCl/ Sodium Chloride (Vancocin/NS) 250 ml @ 83.333 mls/ hr ONCE IVPB Last administered on 07/30/16 15:06; Admin Dose 83.333 MLS/HR; Start at 14:30; Stop 07/30/16 at 23:00 NIYAH REED MD Jul 30, 2016 17:35
--- NOTE | 2016-07-30 18:03 | CONS ---
Date/Time of Note Date/Time of Note DATE: 07/30/16 TIME: 18:00 Consult Date/Type/Reason Admit Date/Time Jul 11, 2016 at 12:19 Type of Consultation: Rheum Subjective Continues with more tolerable lower ext. pain. No new complaints. Objective Alert , oriented x 3 Chest clear Heart RRR Abd.. Soft. ext neg. synovitis. Vital Signs Date Time Temp Pulse Resp B/P Pulse Ox O2 Delivery O2 Flow Rate FiO2 07/30/16 07:27 98.4 80 16 113/65 95 07/29/16 18:00 Room Air 07/29/16 03:00 2.0 Intake and Output 07/29/16 07/29/16 07/30/16 15:00 23:00 07:00 Intake Total 700 ml 1330 ml Output Total 350 ml 225 ml 5100 ml Balance 350 ml -225 ml -3770 ml Results/Medications Result Diagram: 07/30/16 1015 07/30/16 1015 Results 24 hrs Laboratory Tests Test 07/29/16 18:50 07/29/16 20:26 07/29/16 22:33 07/30/16 03:25 Bedside Glucose 280 H 165 210 Activated Partial Thromboplast Time 34.0 Test 07/30/16 06:35 07/30/16 06:44 07/30/16 08:47 07/30/16 10:15 Activated Partial Thromboplast Time > 180.0 *H 174.8 *H Bedside Glucose 172 175 Alanine Aminotransferase (ALT/SGPT) 57 Albumin 3.8 Albumin/Globulin Ratio 1.15 Alkaline Phosphatase 216 H Anion Gap 21 H Aspartate Amino Transf (AST/SGOT) 34 Basophils # 0.1 Basophils % 1.5 Blood Morphology Comment Blood Urea Nitrogen 42 #H Calcium Level 8.3 L Carbon Dioxide Level 26 Chloride Level 94 L Creatinine 6.64 H Direct Bilirubin 0.00 Eosinophils # 0.4 Eosinophils % 5.3 Globulin 3.30 H Glucose Level 201 Hematocrit 32.6 #L Hemoglobin 10.8 #L Indirect Bilirubin 0.2 Lymphocytes # 0.7 L Lymphocytes % 9.5 L Mean Corpuscular Hemoglobin 29.8 Mean Corpuscular Hemoglobin Concent 33.0 Mean Corpuscular Volume 90.3 Mean Platelet Volume 9.9 Monocytes # 0.8 Monocytes % 10.1 Neutrophils # 5.8 Neutrophils % 73.6 Nucleated Red Blood Cells # 0.0 Nucleated Red Blood Cells % 0.0 Platelet Count 213 # Potassium Level 4.1 Red Blood Count 3.61 #L Red Cell Distribution Width 17.2 H Sodium Level 137 Total Bilirubin 0.2 Total Protein 7.1 # White Blood Count 7.9 # Test 07/30/16 11:32 07/30/16 12:05 07/30/16 17:27 Bedside Glucose 166 325 H Activated Partial Thromboplast Time 37.5 H Medications Current Medications Diphenhydramine HCl (Benadryl) 50 mg Q6H PRN IV ITCHING Last administered on 16:00; Admin Dose 50 MG; Start 07/09/16 at 17:00 Non-Formulary Medication (Non-Formulary Insulin) INSULIN PUMP see la... [id number] SC Last administered on 07/30/16 12:00; Admin Dose 7.5 UNIT; Start 07/09/16 at 19:45 Non-Formulary Medication (Non-Formulary Insulin) INSULIN PUMP see la... HS SC Last administered on 07/28/16 21:22; Admin Dose 5 UNIT; Start 07/09/16 at 21:00 Miscellaneous Information 1 ea NOTE XX ; Start 07/09/16 at 18:30 Glucose (Glutose) 15 gm Q15M PRN PO DECREASED GLUCOSE; Start 07/09/16 at 18:30 Glucose (Glutose) 22.5 gm Q15M PRN PO DECREASED GLUCOSE; Start 07/09/16 at 18: 30 Dextrose (D50w Syringe) 25 ml Q15M PRN IV DECREASED GLUCOSE Last administered on 07/25/16 17:08; Admin Dose 25 ML; Start 07/09/16 at 18:30 Dextrose (D50w Syringe) 50 ml Q15M PRN IV DECREASED GLUCOSE Last administered on 07/19/16 20:58; Admin Dose 50 ML; Start 07/09/16 at 18:30 Glucagon (Glucagen) 1 mg Q15M PRN IM DECREASED GLUCOSE; Start 07/09/16 at 18:30 Glucose (Glutose) 15 gm Q15M PRN BUCCAL DECREASED GLUCOSE; Start 07/09/16 at 18 :30 Aspirin (Halfprin) 81 mg DAILY PO Last administered on 07/30/16 08:57; Admin Dose 81 MG; Start 07/10/16 at 09:00 Atorvastatin Calcium (Lipitor) 80 mg QHS PO Last administered on 07/28/16 21: 20; Admin Dose 80 MG; Start 07/10/16 at 21:00 Clonidine (Catapres) 0.1 mg Q6 PO Last administered on 07/30/16 12:37; Admin Dose 0.1 MG; Start 07/10/16 at 12:00 Isosorbide Mononitrate (Imdur) 60 mg DAILY PO Last administered on 07/30/16 12 :46; Admin Dose 60 MG; Start 07/10/16 at 10:00 Lactobacillus Acidoph/Bulgaricus (Floranex) 1 tab TID PO Last administered on 12:38; Admin Dose 1 TAB; Start 07/10/16 at 09:00 Metoprolol Succinate (Toprol Xl) 50 mg BID PO Last administered on 07/30/16 12 :45; Admin Dose 50 MG; Start 07/10/16 at 10:00 Prasugrel (Effient) 10 mg DAILY PO Last administered on 07/30/16 08:57; Admin Dose 10 MG; Start 07/10/16 at 10:30 Acetaminophen (Tylenol Tab) 500 mg Q4H PRN PO PAIN AND OR ELEVATED TEMP Last administered on 07/30/16 01:27; Admin Dose 500 MG; Start 07/10/16 at 09:00 Cholestyramine Resin (Questran Light) 4 gm BID PO Last administered on 10:00; Admin Dose 4 GM; Start 07/11/16 at 09:00 Gabapentin (Neurontin) 600 mg TID PO Last administered on 07/30/16 12:37; Admin Dose 600 MG; Start 07/14/16 at 21:00 Pantoprazole (Protonix Tab) 40 mg DAILY@06 PO Last administered on 07/30/16 06 :42; Admin Dose 40 MG; Start 07/16/16 at 06:00 Calcitriol (Rocaltrol) 0.5 mcg DAILY PO Last administered on 07/30/16 08:58; Admin Dose 0.5 MCG; Start 07/24/16 at 10:00 Ondansetron HCl (Zofran Inj) 4 mg Q4H PRN IV NAUSEA AND/OR VOMITING; Start 03/31 at 16:00 Hydromorphone HCl (Dilaudid) 2 mg Q3H PRN IV PAIN Last administered on 16:02; Admin Dose 2 MG; Start 07/27/16 at 23:30 Apixaban 2.5 mg 2.5 mg BID PO ; Start 07/30/16 at 21:00 Vancomycin HCl/ Sodium Chloride (Vancocin/NS) 250 ml @ 83.333 mls/ hr ONCE IVPB Last administered on 07/30/16 15:06; Admin Dose 83.333 MLS/HR; Start at 14:30; Stop 07/30/16 at 23:00 Assessment/Plan Chief Complaint/Hosp Course Ass 1. Leg pain. Neuropathic in part, responding to Gabapentin. 2. Marked peripheral arterial disease. 3. Possible right lumbar radiculopathy, long standing 4. Renal Failure 5 Right common femoral vein DVT 6. S/p repair of pseudoaneurism right groin. Rec. Continue Gabapentin to 600 mg tid. Increase ambulation as tolerated. Problems: ENMA GRAHAM MD Jul 30, 2016 18:03
--- NOTE | 2016-07-30 19:28 | CONS ---
Date/Time of Note Date/Time of Note DATE: 07/30/16 TIME: 19:16 Assessment/Plan Assessment/Plan Problems: (1) Scrotal erythema Status: Acute Comment: Concern for Fornier's Gangrene. Received dose of Vancomycin. Spoke with Dr. Pagan who will see patient in consultation. Will also contact infectious disease service. 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 Changed infusion set yesterday evening with improvement in glucose levels overall, although patient now with possible Fornier's Gangrene and increase in blood glucose readings this evening. Patient instructed to use pump for insulin corrections. Additional Assessment/Plan 50 year old man with diabetes mellitus type1 and chronic complications now with scrotal edema and possible scrotal cellulitis Consultation Date/Type/Reason Admit Date/Time Jul 11, 2016 at 12:19 Initial Consult Date 07/29/16 Type of Consultation: Endo Reason for Consultation Insulin pump management 24 HR Interval Summary Free Text/Dictation Blood glucose better overnight and this morning. Patient now with enlarged tender and swollen testicles. Exam/Review of Systems Vital Signs Vitals Vital Signs Date Time Temp Pulse Resp B/P Pulse Ox O2 Delivery O2 Flow Rate FiO2 07/30/16 07:27 98.4 80 16 113/65 95 07/29/16 18:00 Room Air 07/29/16 03:00 2.0 Intake and Output 07/29/16 07/29/16 07/30/16 15:00 23:00 07:00 Intake Total 700 ml 1330 ml Output Total 350 ml 225 ml 5100 ml Balance 350 ml -225 ml -3770 ml Exam Constitutional: alert, oriented Psych: nl mood/affect Neck: supple Respiratory: clear to auscultation Cardiovascular: regular rate and rhythm Gastrointestinal: soft Genitourinary - Male: nl scrotum (enlarged, tender, erythematous and edematous) , other (right groin wound vac) Extremities: other (right lower extremity bandaged) Results POC reviewed Result Diagram: 07/30/16 1015 07/30/16 1015 Results 24 hrs Laboratory Tests Test 07/29/16 20:26 07/29/16 22:33 07/30/16 03:25 07/30/16 06:35 Bedside Glucose 165 210 Activated Partial Thromboplast Time 34.0 > 180.0 *H Test 07/30/16 06:44 07/30/16 08:47 07/30/16 10:15 07/30/16 11:32 Bedside Glucose 172 175 166 Activated Partial Thromboplast Time 174.8 *H Alanine Aminotransferase (ALT/SGPT) 57 Albumin 3.8 Albumin/Globulin Ratio 1.15 Alkaline Phosphatase 216 H Anion Gap 21 H Aspartate Amino Transf (AST/SGOT) 34 Basophils # 0.1 Basophils % 1.5 Blood Morphology Comment Blood Urea Nitrogen 42 #H Calcium Level 8.3 L Carbon Dioxide Level 26 Chloride Level 94 L Creatinine 6.64 H Direct Bilirubin 0.00 Eosinophils # 0.4 Eosinophils % 5.3 Globulin 3.30 H Glucose Level 201 Hematocrit 32.6 #L Hemoglobin 10.8 #L Indirect Bilirubin 0.2 Lymphocytes # 0.7 L Lymphocytes % 9.5 L Mean Corpuscular Hemoglobin 29.8 Mean Corpuscular Hemoglobin Concent 33.0 Mean Corpuscular Volume 90.3 Mean Platelet Volume 9.9 Monocytes # 0.8 Monocytes % 10.1 Neutrophils # 5.8 Neutrophils % 73.6 Nucleated Red Blood Cells # 0.0 Nucleated Red Blood Cells % 0.0 Platelet Count 213 # Potassium Level 4.1 Red Blood Count 3.61 #L Red Cell Distribution Width 17.2 H Sodium Level 137 Total Bilirubin 0.2 Total Protein 7.1 # White Blood Count 7.9 # Test 07/30/16 12:05 07/30/16 17:27 Activated Partial Thromboplast Time 37.5 H Bedside Glucose 325 H Medications Medications Current Medications Diphenhydramine HCl (Benadryl) 50 mg Q6H PRN IV ITCHING Last administered on 16:00; Admin Dose 50 MG; Start 07/09/16 at 17:00 Non-Formulary Medication (Non-Formulary Insulin) INSULIN PUMP see la... [id number] SC Last administered on 07/30/16 18:07; Admin Dose 14 UNIT; Start 07/09/16 at 19:45 Non-Formulary Medication (Non-Formulary Insulin) INSULIN PUMP see la... HS SC Last administered on 07/28/16 21:22; Admin Dose 5 UNIT; Start 07/09/16 at 21:00 Miscellaneous Information 1 ea NOTE XX ; Start 07/09/16 at 18:30 Glucose (Glutose) 15 gm Q15M PRN PO DECREASED GLUCOSE; Start 07/09/16 at 18:30 Glucose (Glutose) 22.5 gm Q15M PRN PO DECREASED GLUCOSE; Start 07/09/16 at 18: 30 Dextrose (D50w Syringe) 25 ml Q15M PRN IV DECREASED GLUCOSE Last administered on 07/25/16 17:08; Admin Dose 25 ML; Start 07/09/16 at 18:30 Dextrose (D50w Syringe) 50 ml Q15M PRN IV DECREASED GLUCOSE Last administered on 07/19/16 20:58; Admin Dose 50 ML; Start 07/09/16 at 18:30 Glucagon (Glucagen) 1 mg Q15M PRN IM DECREASED GLUCOSE; Start 07/09/16 at 18:30 Glucose (Glutose) 15 gm Q15M PRN BUCCAL DECREASED GLUCOSE; Start 07/09/16 at 18 :30 Aspirin (Halfprin) 81 mg DAILY PO Last administered on 07/30/16 08:57; Admin Dose 81 MG; Start 07/10/16 at 09:00 Atorvastatin Calcium (Lipitor) 80 mg QHS PO Last administered on 07/28/16 21: 20; Admin Dose 80 MG; Start 07/10/16 at 21:00 Clonidine (Catapres) 0.1 mg Q6 PO Last administered on 07/30/16 12:37; Admin Dose 0.1 MG; Start 07/10/16 at 12:00 Isosorbide Mononitrate (Imdur) 60 mg DAILY PO Last administered on 07/30/16 12 :46; Admin Dose 60 MG; Start 07/10/16 at 10:00 Lactobacillus Acidoph/Bulgaricus (Floranex) 1 tab TID PO Last administered on 12:38; Admin Dose 1 TAB; Start 07/10/16 at 09:00 Metoprolol Succinate (Toprol Xl) 50 mg BID PO Last administered on 07/30/16 12 :45; Admin Dose 50 MG; Start 07/10/16 at 10:00 Prasugrel (Effient) 10 mg DAILY PO Last administered on 07/30/16 08:57; Admin Dose 10 MG; Start 07/10/16 at 10:30 Acetaminophen (Tylenol Tab) 500 mg Q4H PRN PO PAIN AND OR ELEVATED TEMP Last administered on 07/30/16 01:27; Admin Dose 500 MG; Start 07/10/16 at 09:00 Cholestyramine Resin (Questran Light) 4 gm BID PO Last administered on 10:00; Admin Dose 4 GM; Start 07/11/16 at 09:00 Gabapentin (Neurontin) 600 mg TID PO Last administered on 07/30/16 12:37; Admin Dose 600 MG; Start 07/14/16 at 21:00 Pantoprazole (Protonix Tab) 40 mg DAILY@06 PO Last administered on 07/30/16 06 :42; Admin Dose 40 MG; Start 07/16/16 at 06:00 Calcitriol (Rocaltrol) 0.5 mcg DAILY PO Last administered on 07/30/16 08:58; Admin Dose 0.5 MCG; Start 07/24/16 at 10:00 Ondansetron HCl (Zofran Inj) 4 mg Q4H PRN IV NAUSEA AND/OR VOMITING; Start 03/31 at 16:00 Hydromorphone HCl (Dilaudid) 2 mg Q3H PRN IV PAIN Last administered on 16:02; Admin Dose 2 MG; Start 07/27/16 at 23:30 Apixaban 2.5 mg 2.5 mg BID PO ; Start 07/30/16 at 21:00 Vancomycin HCl/ Sodium Chloride (Vancocin/NS) 250 ml @ 83.333 mls/ hr ONCE IVPB Last administered on 07/30/16 15:06; Admin Dose 83.333 MLS/HR; Start at 14:30; Stop 07/30/16 at 23:00 KALPANA MARTINEZ MD Jul 30, 2016 19:28
[2016-07-30 19:32] VITALS: BP 129/77; RESP 20
--- NOTE | 2016-07-30 20:32 | CONS ---
Date/Time of Note Date/Time of Note DATE: 07/30/16 TIME: 20:31 Consult Date/Type/Reason Admit Date/Time Jul 11, 2016 at 12:19 Initial Consult Date 07/27/16 Type of Consultation: card Objective Vital Signs Date Time Temp Pulse Resp B/P Pulse Ox O2 Delivery O2 Flow Rate FiO2 07/30/16 19:32 100.5 94 20 129/77 91 07/29/16 18:00 Room Air 07/29/16 03:00 2.0 Intake and Output 07/29/16 07/29/16 07/30/16 15:00 23:00 07:00 Intake Total 700 ml 1380 ml Output Total 350 ml 225 ml 5100 ml Balance 350 ml -225 ml -3720 ml Results/Medications Result Diagram: 07/30/16 1015 07/30/16 1015 Results 24 hrs Laboratory Tests Test 07/29/16 22:33 07/30/16 03:25 07/30/16 06:35 07/30/16 06:44 Activated Partial Thromboplast Time 34.0 > 180.0 *H Bedside Glucose 210 172 Test 07/30/16 08:47 07/30/16 10:15 07/30/16 11:32 07/30/16 12:05 Bedside Glucose 175 166 Activated Partial Thromboplast Time 174.8 *H 37.5 H Alanine Aminotransferase (ALT/SGPT) 57 Albumin 3.8 Albumin/Globulin Ratio 1.15 Alkaline Phosphatase 216 H Anion Gap 21 H Aspartate Amino Transf (AST/SGOT) 34 Basophils # 0.1 Basophils % 1.5 Blood Morphology Comment Blood Urea Nitrogen 42 #H Calcium Level 8.3 L Carbon Dioxide Level 26 Chloride Level 94 L Creatinine 6.64 H Direct Bilirubin 0.00 Eosinophils # 0.4 Eosinophils % 5.3 Globulin 3.30 H Glucose Level 201 Hematocrit 32.6 #L Hemoglobin 10.8 #L Indirect Bilirubin 0.2 Lymphocytes # 0.7 L Lymphocytes % 9.5 L Mean Corpuscular Hemoglobin 29.8 Mean Corpuscular Hemoglobin Concent 33.0 Mean Corpuscular Volume 90.3 Mean Platelet Volume 9.9 Monocytes # 0.8 Monocytes % 10.1 Neutrophils # 5.8 Neutrophils % 73.6 Nucleated Red Blood Cells # 0.0 Nucleated Red Blood Cells % 0.0 Platelet Count 213 # Potassium Level 4.1 Red Blood Count 3.61 #L Red Cell Distribution Width 17.2 H Sodium Level 137 Total Bilirubin 0.2 Total Protein 7.1 # White Blood Count 7.9 # Test 07/30/16 17:27 07/30/16 19:04 07/30/16 19:06 Bedside Glucose 325 H 539 *H 271 H Medications Current Medications Diphenhydramine HCl (Benadryl) 50 mg Q6H PRN IV ITCHING Last administered on 16:00; Admin Dose 50 MG; Start 07/09/16 at 17:00 Non-Formulary Medication (Non-Formulary Insulin) INSULIN PUMP see la... [id number] SC Last administered on 07/30/16 18:07; Admin Dose 14 UNIT; Start 07/09/16 at 19:45 Non-Formulary Medication (Non-Formulary Insulin) INSULIN PUMP see la... HS SC Last administered on 07/28/16 21:22; Admin Dose 5 UNIT; Start 07/09/16 at 21:00 Miscellaneous Information 1 ea NOTE XX ; Start 07/09/16 at 18:30 Glucose (Glutose) 15 gm Q15M PRN PO DECREASED GLUCOSE; Start 07/09/16 at 18:30 Glucose (Glutose) 22.5 gm Q15M PRN PO DECREASED GLUCOSE; Start 07/09/16 at 18: 30 Dextrose (D50w Syringe) 25 ml Q15M PRN IV DECREASED GLUCOSE Last administered on 07/25/16 17:08; Admin Dose 25 ML; Start 07/09/16 at 18:30 Dextrose (D50w Syringe) 50 ml Q15M PRN IV DECREASED GLUCOSE Last administered on 07/19/16 20:58; Admin Dose 50 ML; Start 07/09/16 at 18:30 Glucagon (Glucagen) 1 mg Q15M PRN IM DECREASED GLUCOSE; Start 07/09/16 at 18:30 Glucose (Glutose) 15 gm Q15M PRN BUCCAL DECREASED GLUCOSE; Start 07/09/16 at 18 :30 Aspirin (Halfprin) 81 mg DAILY PO Last administered on 07/30/16 08:57; Admin Dose 81 MG; Start 07/10/16 at 09:00 Atorvastatin Calcium (Lipitor) 80 mg QHS PO Last administered on 07/28/16 21: 20; Admin Dose 80 MG; Start 07/10/16 at 21:00 Clonidine (Catapres) 0.1 mg Q6 PO Last administered on 07/30/16 12:37; Admin Dose 0.1 MG; Start 07/10/16 at 12:00 Isosorbide Mononitrate (Imdur) 60 mg DAILY PO Last administered on 07/30/16 12 :46; Admin Dose 60 MG; Start 07/10/16 at 10:00 Lactobacillus Acidoph/Bulgaricus (Floranex) 1 tab TID PO Last administered on 12:38; Admin Dose 1 TAB; Start 07/10/16 at 09:00 Metoprolol Succinate (Toprol Xl) 50 mg BID PO Last administered on 07/30/16 12 :45; Admin Dose 50 MG; Start 07/10/16 at 10:00 Prasugrel (Effient) 10 mg DAILY PO Last administered on 07/30/16 08:57; Admin Dose 10 MG; Start 07/10/16 at 10:30 Acetaminophen (Tylenol Tab) 500 mg Q4H PRN PO PAIN AND OR ELEVATED TEMP Last administered on 07/30/16 20:06; Admin Dose 500 MG; Start 07/10/16 at 09:00 Cholestyramine Resin (Questran Light) 4 gm BID PO Last administered on 10:00; Admin Dose 4 GM; Start 07/11/16 at 09:00 Gabapentin (Neurontin) 600 mg TID PO Last administered on 07/30/16 12:37; Admin Dose 600 MG; Start 07/14/16 at 21:00 Pantoprazole (Protonix Tab) 40 mg DAILY@06 PO Last administered on 07/30/16 06 :42; Admin Dose 40 MG; Start 07/16/16 at 06:00 Calcitriol (Rocaltrol) 0.5 mcg DAILY PO Last administered on 07/30/16 08:58; Admin Dose 0.5 MCG; Start 07/24/16 at 10:00 Ondansetron HCl (Zofran Inj) 4 mg Q4H PRN IV NAUSEA AND/OR VOMITING; Start 03/31 at 16:00 Hydromorphone HCl (Dilaudid) 2 mg Q3H PRN IV PAIN Last administered on 19:00; Admin Dose 2 MG; Start 07/27/16 at 23:30 Apixaban 2.5 mg 2.5 mg BID PO ; Start 07/30/16 at 21:00 Vancomycin HCl 1.25 gm/Sodium Chloride 250 ml @ 83.333 mls/ hr ONCE IVPB Last administered on 07/30/16 15:06; Admin Dose 83.333 MLS/HR; Start 07/30/16 at 14: 30; Stop 07/30/16 at 23:00 Meropenem (Merrem 500 Mg/ 100 ml (Pmx)) 100 ml @ 200 mls/hr Q24H IVPB ; Start 07/30/16 at 21:00 Assessment/Plan Chief Complaint/Hosp Course Patietn is known to me , He has PCI of LAD and PAD. 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 called in for pre op today by Amina. Problems: Additional Assessment/Plan Pt is clincially depressed. Crying D/W DR Rosales and tele psych and meds Pt has complicaiton of leg angio with Pseudoaneurysm s/p repair with cellulitis and testicular cellulitis. On insulin pump Plan to have ID on boards ABx Pt as residual PAD f/u out pt in my office. CYNDIE GARCIA MD Jul 30, 2016 20:32
--- NOTE | 2016-07-30 20:37 | PN ---
Date/Time of Note Date/Time of Note DATE: 07/30/16 TIME: 20:37 Assessment/Plan Lines/Catheters IV C[facility] Type (from [facility]): PORTACATH Foster in Place (from [facility]): No Assessment/Plan Chief Complaint/Hosp Course -End-stage renal disease: It seems that the patient's left upper extremity fistula is functioning well. Recommend continue with his hemodialysis sessions via the fistula. Patient also had his recent Perm-A-Cath removed. From a vascular standpoint, we will continue his fistula surveillance as an outpatient. -Bilateral lower extremity atherosclerosis: S/P angio with LLE SFA severe stenosis. S/P LLE Atherectomy, Stenting and angioplasty -Patient had complain of Right groin discomfort and upon CTA of Right [employer] there was a [employer] pseudoaneurysm. S/P Right [employer] exploration and repair of pseudoaneurysm -Right CFV DVT likely developed post angiogram manual compression. Continue with anticoagulation for now and eventually transition to PO regimen -Transfer to med/surg with neurovasc checks Q4 -Will need PT/OT and OOB FWB -Optimize vascular status (BP meds, diet, nutrition, exercise, sugar control, antiplatelets). -Discussed findings with plan and management with the patient and he understands. -Thank you for allowing us to partake in the care of your patient. Please call with any questions. Problems: Exam/Review of Systems Vital Signs Vitals Vital Signs Date Time Temp Pulse Resp B/P Pulse Ox O2 Delivery O2 Flow Rate FiO2 07/31/16 07:46 98.0 83 20 115/ 95 07/29/16 18:00 Room Air 07/29/16 03:00 2.0 Intake and Output 07/30/16 07/30/16 07/31/16 15:00 23:00 07:00 Intake Total 1220 ml 360 ml Balance 1220 ml 360 ml Exam Free Text/Dictation GENERAL: Alert and oriented x3. PULMONARY: Clear to auscultation bilaterally. CARDIOVASCULAR: S1, S2 present. ABDOMEN: Soft, nontender, nondistended. Bowel sounds positive. EXTREMITIES: Left upper extremity palpable brachial pulse. Motor, sensory intact. Capillary refill 2 to 3 seconds. Surgical scars all well healed. Fistula with bruit and thrill present Right lower extremity palpable femoral pulse, groin with prevena wound vac intact, incisional tenderness, Dopplerable AT and PT biphasic, Motor and sensory intact. Capillary refill 3 seconds, edema 1-2+ Jim wrap intact Left lower extremity palpable femoral pulse, palpable pedal pulse. Motor and sensory intact. Capillary refill 2 to 3 seconds Results Result Diagram: 07/31/16 0530 07/31/16 0530 JOE BARR MD Jul 30, 2016 20:37
[2016-07-30] MEDS: MEROPENEM 500 MG/100 ML (PMX) 100 ML IVPB SCH (21:42)
[2016-07-30] MEDS: APIXABAN 5 MG TABLET PO SCH (21:44)
[2016-07-30] MEDS: ATORVASTATIN 80 MG TAB PO SCH (21:45)
[2016-07-31] VITALS (9 sets, daily range): BP systolic 107–132; BP diastolic 55–81; PULSE 88–91; RESP 20
[2016-07-31] MEDS: HYDROmorphONE 2 MG/ML SYG IV PRN ×8 (01:04→23:00)
[2016-07-31] MEDS: DIPHENHYDRAMINE 50 MG INJ IV PRN ×4 (04:58→23:01)
[2016-07-31] MEDS: PANTOPRAZOLE (EC) 40 MG TAB PO SCH (05:36)
[2016-07-31 06:23] LABS: BASOPHILS % 0.3 % (0.0-2.0); EOSINOPHILS # 0.5 10^3/ul (0.0-0.5); EOSINOPHILS % 7.2 % (0.0-7.0); HEMATOCRIT 28.1 % (42.0-52.0); HEMOGLOBIN 9.6 g/dl (14.0-18.0); LYMPHOCYTES # 0.7 10^3/ul (0.8-2.9); LYMPHOCYTES % 10.4 % (15.0-51.0); MEAN CORPUSCULAR HEMOGLOBIN 30.6 pg (29.0-33.0); MEAN CORPUSCULAR HGB CONC 33.9 g/dl (32.0-37.0); MEAN CORPUSCULAR VOLUME 90.3 fl (82.0-101.0); MEAN PLATELET VOLUME 9.9 fl (7.4-10.4); MONOCYTE # 0.7 10^3/ul (0.3-0.9); MONOCYTES % 10.8 % (0.0-11.0); NEUTROPHIL # 4.8 10^3/ul (1.6-7.5); NEUTROPHILS % 71.3 % (39.0-77.0); PLATELET COUNT 187 10^3/UL (140-440); RED BLOOD COUNT 3.12 10^6/ul (4.70-6.10); RED CELL DISTRIBUTION WIDTH 16.6 % (11.5-14.5); UNCORRECTED WBC 6.7 10^3/ul (4.8-10.8); WHITE BLOOD COUNT 6.7 10^3/ul (4.8-10.8)
[2016-07-31 06:25] LABS: CONDITION 1
[2016-07-31 06:26] LABS: LH ANALYZER COMMENTS 1
[2016-07-31] MEDS: DIPHENHYDRAMINE 50 MG INJ IV SCH (06:34)
[2016-07-31] MEDS: LORAZEPAM 2 MG INJ IV SCH (06:34)
[2016-07-31 06:35] LABS: ALBUMIN 3.2 g/dl (3.3-4.9)
[2016-07-31 06:36] LABS: POTASSIUM 4.7 mmol/L (3.5-5.1)
[2016-07-31 06:38] LABS: ALBUMIN/GLOBULIN RATIO 1.06; BILIRUBIN,INDIRECT 0.1 mg/dl (0-1.1); BILIRUBIN,TOTAL 0.1 mg/dl (0.2-1.3); CREATININE 7.92 mg/dl (0.61-1.24); TOTAL PROTEIN 6.2 g/dl (6.1-8.1)
[2016-07-31 06:39] LABS: CALCIUM 7.5 mg/dl (8.4-10.2); MAGNESIUM 1.9 mg/dl (1.7-2.5)
[2016-07-31] MEDS: GABAPENTIN 300 MG CAP PO SCH ×2 (08:07→13:18)
[2016-07-31] MEDS: SEVELAMER 800 MG TAB PO SCH ×3 (08:07→17:08)
[2016-07-31] MEDS: PRASUGREL HYDROCHLORIDE 10 MG TABLET PO SCH (08:08)
[2016-07-31] MEDS: CALCITRIOL 0.25 MCG CAP PO SCH (08:08)
[2016-07-31] MEDS: LACTOBACILLUS CHEW TAB PO SCH ×3 (08:08→20:55)
[2016-07-31] MEDS: ASPIRIN (EC) 81 MG TAB PO SCH (08:08)
[2016-07-31] MEDS: CALCIUM ACETATE 667 MG CAP PO SCH ×3 (08:08→17:09)
[2016-07-31] MEDS: APIXABAN 5 MG TABLET PO SCH ×2 (08:09→20:52)
[2016-07-31] MEDS: CHOLESTYRAMINE (LIGHT) 4 GM PACKET PO SCH ×2 (08:11→20:56)
--- NOTE | 2016-07-31 08:33 | PN ---
Date/Time of Note Date/Time of Note DATE: 07/31/16 TIME: 08:30 Assessment/Plan VTE Prophylaxis VTE Prophylaxis Intervention: heparin Lines/Catheters IV [facility] (from [facility]): PORTACATH Urinary Cath still in place: No Assessment/Plan Assessment/Plan 1. Diarrhea with recent history of Clostridium difficile colitis, resolved. Continue patient on vancomycin and Questran. - Dr. Gomez is following in gastroenterology consultation 2. Dehydration secondary to diarrhea with recent history of Clostridium difficile colitis. Stool for C. difficile is negative. 3. Type 1 diabetes mellitus with diabetic nephropathy. Continue NovoLog per insulin pump. - per endo 4. End-stage renal disease, hemodialysis dependent. Dr. Hubbard is following the patient in nephrology consultation. Continue dialysis per nephrology. 5. Coronary artery disease. Continue Imdur and metoprolol. 6. Hypertension. 7. Bilateral lower extremities pain. Dr. Orosco is following and rheumatology consultation. 8. Lateral lower extremities atherosclerosis and left lower extremity disabling claudication. is following in vascular surgery consultation. S/P angio with LLE SFA severe stenosis. S/p Left femoral popliteal stenting on 07-25, s/p Exploration of right common femoral artery and control of bleeding on 07-27. Started on Eliquis, follow-up vascular surgery recommendations. 9. Scrotal swelling - per Dr Pagan in urology 10. Hyponatremia-am labs Continue heparin for deep venous thrombosis prophylaxis and Pepcid for peptic ulcer disease prophylaxis. Further recommendations based on clinical course. Plan of care discussed with Dr. Rosales. Subjective 24 Hr Interval Summary Free Text/Dictation Having HD now, feels comfortable. no new complaints. dw staff. Eyes: other (left eye impaired vision) ENT: no complaints Respiratory: no complaints Cardiovascular: no complaints, other Gastrointestinal: no complaints Genitourinary: no complaints Musculoskeletal: no complaints Skin: no complaints Neurologic: no complaints Endocrine: no complaints Lymphatic: no complaints Psychological: no complaints Exam/Review of Systems Vital Signs Vitals Vital Signs Date Time Temp Pulse Resp B/P Pulse Ox O2 Delivery O2 Flow Rate FiO2 07/31/16 07:46 98.0 83 20 115/ 95 07/29/16 18:00 Room Air 07/29/16 03:00 2.0 Intake and Output 07/30/16 07/30/16 07/31/16 15:00 23:00 07:00 Intake Total 1220 ml 360 ml Balance 1220 ml 360 ml Exam Constitutional: alert, oriented, well developed Head: atraumatic Eyes: EOMI ENMT: nl external ears & nose Neck: non-tender Respiratory: clear to auscultation Cardiovascular: nl pulses, other Gastrointestinal: non-tender, soft Genitourinary - Male: other (scrotal swelling) Musculoskeletal: other Extremities: normal pulses 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: nl mental status, nl speech Results Result Diagram: 07/31/16 0530 07/31/16 0530 Results 24 hrs Laboratory Tests Test 07/30/16 08:47 07/30/16 10:15 07/30/16 11:32 07/30/16 12:05 Bedside Glucose 175 166 Activated Partial Thromboplast Time 174.8 *H 37.5 H Alanine Aminotransferase (ALT/SGPT) 57 Albumin 3.8 Albumin/Globulin Ratio 1.15 Alkaline Phosphatase 216 H Anion Gap 21 H Aspartate Amino Transf (AST/SGOT) 34 Basophils # 0.1 Basophils % 1.5 Blood Morphology Comment Blood Urea Nitrogen 42 #H Calcium Level 8.3 L Carbon Dioxide Level 26 Chloride Level 94 L Creatinine 6.64 H Direct Bilirubin 0.00 Eosinophils # 0.4 Eosinophils % 5.3 Globulin 3.30 H Glucose Level 201 Hematocrit 32.6 #L Hemoglobin 10.8 #L Indirect Bilirubin 0.2 Lymphocytes # 0.7 L Lymphocytes % 9.5 L Mean Corpuscular Hemoglobin 29.8 Mean Corpuscular Hemoglobin Concent 33.0 Mean Corpuscular Volume 90.3 Mean Platelet Volume 9.9 Monocytes # 0.8 Monocytes % 10.1 Neutrophils # 5.8 Neutrophils % 73.6 Nucleated Red Blood Cells # 0.0 Nucleated Red Blood Cells % 0.0 Platelet Count 213 # Potassium Level 4.1 Red Blood Count 3.61 #L Red Cell Distribution Width 17.2 H Sodium Level 137 Total Bilirubin 0.2 Total Protein 7.1 # White Blood Count 7.9 # Test 07/30/16 17:27 07/30/16 19:04 07/30/16 19:06 07/30/16 19:44 Bedside Glucose 325 H 539 *H 271 H Activated Partial Thromboplast Time > 180.0 *H Glucose Level 217 Test 07/30/16 21:33 07/31/16 05:30 07/31/16 05:39 07/31/16 08:14 Bedside Glucose 164 331 H 302 H Alanine Aminotransferase (ALT/SGPT) 50 Albumin 3.2 L Albumin/Globulin Ratio 1.06 Alkaline Phosphatase 217 H Anion Gap 24 H Aspartate Amino Transf (AST/SGOT) 32 Basophils # 0.0 Basophils % 0.3 Blood Morphology Comment Blood Urea Nitrogen 53 H Calcium Level 7.5 L Carbon Dioxide Level 22 Chloride Level 91 L Creatinine 7.92 H Direct Bilirubin 0.00 Eosinophils # 0.5 Eosinophils % 7.2 H Globulin 3.00 Glucose Level 363 H Hematocrit 28.1 L Hemoglobin 9.6 L Indirect Bilirubin 0.1 Lymphocytes # 0.7 L Lymphocytes % 10.4 L Magnesium Level 1.9 Mean Corpuscular Hemoglobin 30.6 Mean Corpuscular Hemoglobin Concent 33.9 Mean Corpuscular Volume 90.3 Mean Platelet Volume 9.9 Monocytes # 0.7 Monocytes % 10.8 Neutrophils # 4.8 Neutrophils % 71.3 Nucleated Red Blood Cells # 0.0 Nucleated Red Blood Cells % 0.0 Platelet Count 187 Potassium Level 4.7 Red Blood Count 3.12 L Red Cell Distribution Width 16.6 H Sodium Level 132 L Total Bilirubin 0.1 L Total Protein 6.2 White Blood Count 6.7 Medications Medications Current Medications Diphenhydramine HCl (Benadryl) 50 mg Q6H PRN IV ITCHING Last administered on 04:58; Admin Dose 50 MG; Start 07/09/16 at 17:00 Non-Formulary Medication (Non-Formulary Insulin) INSULIN PUMP see la... [id number] Last administered on 07/31/16 06:43; Admin Dose 8 UNIT; Start 07/09/16 at 19:45 Non-Formulary Medication (Non-Formulary Insulin) INSULIN PUMP see la... HS SC Last administered on 07/28/16 21:22; Admin Dose 5 UNIT; Start 07/09/16 at 21:00 Miscellaneous Information 1 ea NOTE XX ; Start 07/09/16 at 18:30 Glucose (Glutose) 15 gm Q15M PRN PO DECREASED GLUCOSE; Start 07/09/16 at 18:30 Glucose (Glutose) 22.5 gm Q15M PRN PO DECREASED GLUCOSE; Start 07/09/16 at 18: 30 Dextrose (D50w Syringe) 25 ml Q15M PRN IV DECREASED GLUCOSE Last administered on 07/25/16 17:08; Admin Dose 25 ML; Start 07/09/16 at 18:30 Dextrose (D50w Syringe) 50 ml Q15M PRN IV DECREASED GLUCOSE Last administered on 07/19/16 20:58; Admin Dose 50 ML; Start 07/09/16 at 18:30 Glucagon (Glucagen) 1 mg Q15M PRN IM DECREASED GLUCOSE; Start 07/09/16 at 18:30 Glucose (Glutose) 15 gm Q15M PRN BUCCAL DECREASED GLUCOSE; Start 07/09/16 at 18 :30 Aspirin (Halfprin) 81 mg DAILY PO Last administered on 07/31/16 08:08; Admin Dose 81 MG; Start 07/10/16 at 09:00 Atorvastatin Calcium (Lipitor) 80 mg QHS PO Last administered on 07/30/16 21: 45; Admin Dose 80 MG; Start 07/10/16 at 21:00 Clonidine (Catapres) 0.1 mg Q6 PO Last administered on 07/31/16 05:37; Admin Dose 0.1 MG; Start 07/10/16 at 12:00 Isosorbide Mononitrate (Imdur) 60 mg DAILY PO Last administered on 07/30/16 12 :46; Admin Dose 60 MG; Start 07/10/16 at 10:00 Lactobacillus Acidoph/Bulgaricus (Floranex) 1 tab TID PO Last administered on 08:08; Admin Dose 1 TAB; Start 07/10/16 at 09:00 Metoprolol Succinate (Toprol Xl) 50 mg BID PO Last administered on 07/30/16 21 :46; Admin Dose 50 MG; Start 07/10/16 at 10:00 Prasugrel (Effient) 10 mg DAILY PO Last administered on 07/31/16 08:08; Admin Dose 10 MG; Start 07/10/16 at 10:30 Acetaminophen (Tylenol Tab) 500 mg Q4H PRN PO PAIN AND OR ELEVATED TEMP Last administered on 07/30/16 20:06; Admin Dose 500 MG; Start 07/10/16 at 09:00 Cholestyramine Resin (Questran Light) 4 gm BID PO Last administered on 08:11; Admin Dose 4 GM; Start 07/11/16 at 09:00 Gabapentin (Neurontin) 600 mg TID PO Last administered on 07/31/16 08:07; Admin Dose 600 MG; Start 07/14/16 at 21:00 Pantoprazole (Protonix Tab) 40 mg DAILY@06 PO Last administered on 07/31/16 05 :36; Admin Dose 40 MG; Start 07/16/16 at 06:00 Calcitriol (Rocaltrol) 0.5 mcg DAILY PO Last administered on 07/31/16 08:08; Admin Dose 0.5 MCG; Start 07/24/16 at 10:00 Ondansetron HCl (Zofran Inj) 4 mg Q4H PRN IV NAUSEA AND/OR VOMITING; Start 03/31 at 16:00 Hydromorphone HCl (Dilaudid) 2 mg Q3H PRN IV PAIN Last administered on 08:07; Admin Dose 2 MG; Start 07/27/16 at 23:30 Apixaban 2.5 mg 2.5 mg BID PO Last administered on 07/31/16 08:09; Admin Dose 2.5 MG; Start 07/30/16 at 21:00 Meropenem (Merrem 500 Mg/ 100 ml (Pmx)) 100 ml @ 200 mls/hr Q24H IVPB Last administered on 07/30/16 21:42; Admin Dose 200 MLS/HR; Start 07/30/16 at 21:00 PEDRO BENSON Jul 31, 2016 08:33
--- NOTE | 2016-07-31 08:45 | PN ---
Date/Time of Note Date/Time of Note DATE: 07/31/16 TIME: 08:42 Assessment/Plan Lines/Catheters IV Catheter Type (from [facility]): PORTACATH Foster in Place (from [facility]): No Assessment/Plan Chief Complaint/Hosp Course -End-stage renal disease: It seems that the patient's left upper extremity fistula is functioning well. Recommend continue with his hemodialysis sessions via the fistula. Patient also had his recent Perm-A-Cath removed. From a vascular standpoint, we will continue his fistula surveillance as an outpatient. -Bilateral lower extremity atherosclerosis: S/P angio with LLE SFA severe stenosis. S/P LLE Atherectomy, Stenting and angioplasty -Patient had complain of Right groin discomfort and upon CTA of Right [employer] there was a [employer] pseudoaneurysm. S/P Right [employer] exploration and repair of pseudoaneurysm -Right CFV DVT likely developed post angiogram manual compression. Continue with anticoagulation for now and eventually transition to PO regimen -Transfer to med/surg with neurovasc checks Q4 -Initiate D/C planning - clear from vascular for discharge -Will need PT/OT and OOB FWB -Optimize vascular status (BP meds, diet, nutrition, exercise, sugar control, antiplatelets). -Discussed findings with plan and management with the patient and he understands. -Thank you for allowing us to partake in the care of your patient. Please call with any questions. Problems: Subjective 24 Hr Interval Summary no new vascular issues overnight Exam/Review of Systems Vital Signs Vitals Vital Signs Date Time Temp Pulse Resp B/P Pulse Ox O2 Delivery O2 Flow Rate FiO2 07/31/16 07:46 98.0 83 20 115/ 95 07/29/16 18:00 Room Air 07/29/16 03:00 2.0 Intake and Output 07/30/16 07/30/16 07/31/16 15:00 23:00 07:00 Intake Total 1220 ml 360 ml Balance 1220 ml 360 ml Exam Free Text/Dictation GENERAL: Alert and oriented x3. PULMONARY: Clear to auscultation bilaterally. CARDIOVASCULAR: S1, S2 present. ABDOMEN: Soft, nontender, nondistended. Bowel sounds positive. EXTREMITIES: Left upper extremity palpable brachial pulse. Motor, sensory intact. Capillary refill 2 to 3 seconds. Surgical scars all well healed. Fistula with bruit and thrill present Right lower extremity palpable femoral pulse, groin with prevena wound vac - removed and incision clean and dry, incisional tenderness, Dopplerable AT and PT biphasic, Motor and sensory intact. Capillary refill 3 seconds, edema 1+ Jim wrap intact and redressed Left lower extremity palpable femoral pulse, palpable pedal pulse. Motor and sensory intact. Capillary refill 2 to 3 seconds Results Result Diagram: 07/31/16 0530 07/31/16 0530 JOE BARR MD Jul 31, 2016 08:45
[2016-07-31] MEDS: METOPROLOL (XL) 50 MG TAB PO SCH ×2 (09:00→20:56)
[2016-07-31] MEDS: ISOSORBIDE MONONITRATE(SR)60 MG TAB PO SCH (09:00)
--- NOTE | 2016-07-31 09:23 | CONS ---
Date/Time of Note Date/Time of Note DATE: 07/31/16 TIME: 09:19 Assessment/Plan Assessment/Plan Chief Complaint/Hosp Course #1 end-stage renal disease, on maintenance hemodialysis Thursday. He is having a dialysis treatment now . #2 bilateral foot pain . He has had this pain even before his surgeries . #3 anemia. H/H is drifting down slightly .will check CBC in am . #4 hyperkalemia . He is taking Veltassa for elevated K . He is on increased dose of the the Veltassa to 16.8 gm a day .potassium is under control . 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 Problems: Consultation Date/Type/Reason Admit Date/Time Jul 11, 2016 at 12:19 Type of Consultation: renal 24 HR Interval Summary Free Text/Dictation He is having a hemodialysis treatment now . no complaints Constitutional: no complaints Exam/Review of Systems Vital Signs Vitals Vital Signs Date Time Temp Pulse Resp B/P Pulse Ox O2 Delivery O2 Flow Rate FiO2 07/31/16 07:46 98.0 83 20 115/ 95 07/29/16 18:00 Room Air 07/29/16 03:00 2.0 Intake and Output 07/30/16 07/30/16 07/31/16 15:00 23:00 07:00 Intake Total 1220 ml 360 ml Balance 1220 ml 360 ml Exam Constitutional: alert, oriented Psych: no complaints Respiratory: clear to auscultation, normal air movement Cardiovascular: nl pulses, regular rate and rhythm Musculoskeletal: nl extremities to inspection Results Result Diagram: 07/31/16 0530 07/31/16 0530 Results 24 hrs Laboratory Tests Test 07/30/16 10:15 07/30/16 11:32 07/30/16 12:05 07/30/16 17:27 Activated Partial Thromboplast Time 174.8 *H 37.5 H Alanine Aminotransferase (ALT/SGPT) 57 Albumin 3.8 Albumin/Globulin Ratio 1.15 Alkaline Phosphatase 216 H Anion Gap 21 H Aspartate Amino Transf (AST/SGOT) 34 Basophils # 0.1 Basophils % 1.5 Blood Morphology Comment Blood Urea Nitrogen 42 #H Calcium Level 8.3 L Carbon Dioxide Level 26 Chloride Level 94 L Creatinine 6.64 H Direct Bilirubin 0.00 Eosinophils # 0.4 Eosinophils % 5.3 Globulin 3.30 H Glucose Level 201 Hematocrit 32.6 #L Hemoglobin 10.8 #L Indirect Bilirubin 0.2 Lymphocytes # 0.7 L Lymphocytes % 9.5 L Mean Corpuscular Hemoglobin 29.8 Mean Corpuscular Hemoglobin Concent 33.0 Mean Corpuscular Volume 90.3 Mean Platelet Volume 9.9 Monocytes # 0.8 Monocytes % 10.1 Neutrophils # 5.8 Neutrophils % 73.6 Nucleated Red Blood Cells # 0.0 Nucleated Red Blood Cells % 0.0 Platelet Count 213 # Potassium Level 4.1 Red Blood Count 3.61 #L Red Cell Distribution Width 17.2 H Sodium Level 137 Total Bilirubin 0.2 Total Protein 7.1 # White Blood Count 7.9 # Bedside Glucose 166 325 H Test 07/30/16 19:04 07/30/16 19:06 07/30/16 19:44 07/30/16 21:33 Bedside Glucose 539 *H 271 H 164 Activated Partial Thromboplast Time > 180.0 *H Glucose Level 217 Test 07/31/16 05:30 07/31/16 05:39 07/31/16 08:14 Alanine Aminotransferase (ALT/SGPT) 50 Albumin 3.2 L Albumin/Globulin Ratio 1.06 Alkaline Phosphatase 217 H Anion Gap 24 H Aspartate Amino Transf (AST/SGOT) 32 Basophils # 0.0 Basophils % 0.3 Blood Morphology Comment Blood Urea Nitrogen 53 H Calcium Level 7.5 L Carbon Dioxide Level 22 Chloride Level 91 L Creatinine 7.92 H Direct Bilirubin 0.00 Eosinophils # 0.5 Eosinophils % 7.2 H Globulin 3.00 Glucose Level 363 H Hematocrit 28.1 L Hemoglobin 9.6 L Indirect Bilirubin 0.1 Lymphocytes # 0.7 L Lymphocytes % 10.4 L Magnesium Level 1.9 Mean Corpuscular Hemoglobin 30.6 Mean Corpuscular Hemoglobin Concent 33.9 Mean Corpuscular Volume 90.3 Mean Platelet Volume 9.9 Monocytes # 0.7 Monocytes % 10.8 Neutrophils # 4.8 Neutrophils % 71.3 Nucleated Red Blood Cells # 0.0 Nucleated Red Blood Cells % 0.0 Platelet Count 187 Potassium Level 4.7 Red Blood Count 3.12 L Red Cell Distribution Width 16.6 H Sodium Level 132 L Total Bilirubin 0.1 L Total Protein 6.2 White Blood Count 6.7 Bedside Glucose 331 H 302 H Medications Medications Current Medications Diphenhydramine HCl (Benadryl) 50 mg Q6H PRN IV ITCHING Last administered on 04:58; Admin Dose 50 MG; Start 07/09/16 at 17:00 Non-Formulary Medication (Non-Formulary Insulin) INSULIN PUMP see la... [id number] Last administered on 07/31/16 06:43; Admin Dose 8 UNIT; Start 07/09/16 at 19:45 Non-Formulary Medication (Non-Formulary Insulin) INSULIN PUMP see la... HS SC Last administered on 07/28/16 21:22; Admin Dose 5 UNIT; Start 07/09/16 at 21:00 Miscellaneous Information 1 ea NOTE XX ; Start 07/09/16 at 18:30 Glucose (Glutose) 15 gm Q15M PRN PO DECREASED GLUCOSE; Start 07/09/16 at 18:30 Glucose (Glutose) 22.5 gm Q15M PRN PO DECREASED GLUCOSE; Start 07/09/16 at 18: 30 Dextrose (D50w Syringe) 25 ml Q15M PRN IV DECREASED GLUCOSE Last administered on 07/25/16 17:08; Admin Dose 25 ML; Start 07/09/16 at 18:30 Dextrose (D50w Syringe) 50 ml Q15M PRN IV DECREASED GLUCOSE Last administered on 07/19/16 20:58; Admin Dose 50 ML; Start 07/09/16 at 18:30 Glucagon (Glucagen) 1 mg Q15M PRN IM DECREASED GLUCOSE; Start 07/09/16 at 18:30 Glucose (Glutose) 15 gm Q15M PRN BUCCAL DECREASED GLUCOSE; Start 07/09/16 at 18 :30 Aspirin (Halfprin) 81 mg DAILY PO Last administered on 07/31/16 08:08; Admin Dose 81 MG; Start 07/10/16 at 09:00 Atorvastatin Calcium (Lipitor) 80 mg QHS PO Last administered on 07/30/16 21: 45; Admin Dose 80 MG; Start 07/10/16 at 21:00 Clonidine (Catapres) 0.1 mg Q6 PO Last administered on 07/31/16 05:37; Admin Dose 0.1 MG; Start 07/10/16 at 12:00 Isosorbide Mononitrate (Imdur) 60 mg DAILY PO Last administered on 07/30/16 12 :46; Admin Dose 60 MG; Start 07/10/16 at 10:00 Lactobacillus Acidoph/Bulgaricus (Floranex) 1 tab TID PO Last administered on 08:08; Admin Dose 1 TAB; Start 07/10/16 at 09:00 Metoprolol Succinate (Toprol Xl) 50 mg BID PO Last administered on 07/30/16 21 :46; Admin Dose 50 MG; Start 07/10/16 at 10:00 Prasugrel (Effient) 10 mg DAILY PO Last administered on 07/31/16 08:08; Admin Dose 10 MG; Start 07/10/16 at 10:30 Acetaminophen (Tylenol Tab) 500 mg Q4H PRN PO PAIN AND OR ELEVATED TEMP Last administered on 07/30/16 20:06; Admin Dose 500 MG; Start 07/10/16 at 09:00 Cholestyramine Resin (Questran Light) 4 gm BID PO Last administered on 08:11; Admin Dose 4 GM; Start 07/11/16 at 09:00 Gabapentin (Neurontin) 600 mg TID PO Last administered on 07/31/16 08:07; Admin Dose 600 MG; Start 07/14/16 at 21:00 Pantoprazole (Protonix Tab) 40 mg DAILY@06 PO Last administered on 07/31/16 05 :36; Admin Dose 40 MG; Start 07/16/16 at 06:00 Calcitriol (Rocaltrol) 0.5 mcg DAILY PO Last administered on 07/31/16 08:08; Admin Dose 0.5 MCG; Start 07/24/16 at 10:00 Ondansetron HCl (Zofran Inj) 4 mg Q4H PRN IV NAUSEA AND/OR VOMITING; Start 03/31 at 16:00 Hydromorphone HCl (Dilaudid) 2 mg Q3H PRN IV PAIN Last administered on 08:07; Admin Dose 2 MG; Start 07/27/16 at 23:30 Apixaban 2.5 mg 2.5 mg BID PO Last administered on 07/31/16 08:09; Admin Dose 2.5 MG; Start 07/30/16 at 21:00 Meropenem (Merrem 500 Mg/ 100 ml (Pmx)) 100 ml @ 200 mls/hr Q24H IVPB Last administered on 07/30/16t 21:42; Admin Dose 200 MLS/HR; Start 07/30/16 at 21:00 DONY HOWARD MD Jul 31, 2016 09:23
--- NOTE | 2016-07-31 09:46 | CONS ---
DATE OF ADMISSION: 07/11/2016 DATE OF CONSULTATION: 07/31/2016 REQUESTING PHYSICIAN: Gwen Haddad MD HISTORY OF PRESENT ILLNESS: This patient is a 50-year-old male who is known to me from before. Kelli arently he recently was admitted to the hospital and underwent surgery for a right common iliac anita ry pseudoaneurysm and yesterday he was noted to have redness and swelling of the scrotum and him davina ng diabetic there was a concern about him having a Fred gangrene; therefore, a urological consul tation was requested. The patient is very well known to me from before. He does have a history of end-stage renal disease. He is on hemodialysis. He has had multiple surgeries in the past. He has had a left upper extremity graft, and he has also had a history of coronary artery disease, hyperte nsion, diabetes mellitus type 1, using insulin drip at home. The patient has had C difficile coliti s, and he has a neurogenic bladder, previously put a suprapubic tube for him because he could not ur inate, and then he insisted on having the suprapubic tube removed, which we did, and the patient sta delgado that he is still making some urine and he has to force it out, it does not come out easy. 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 SOCIAL HISTORY: Lives at home and he denies any tobacco abuse. He does not smoke and denies any il licit drugs. ALLERGIES: 1. AZITHROMYCIN 2. CODEINE. 3. ERYTHROMYCIN. 4. MORPHINE. 5. ADHESIVE TAPE. MEDICATIONS: Presently his medications include: 1. Vancomycin. 2. Dilaudid. 3. Zofran. 4. Calcitriol. 5. Albumin. 6. IV Protonix. 7. Gabapentin. 8. Benadryl. 9. Ativan. 10. Questran. 11. Lipitor. 12. PhosLo. 13. Renagel. 14. Clonidine. 15. Isosorbide. 16. Metoprolol. 17. Aspirin. PHYSICAL EXAMINATION: GENERAL: Reveals a 50-year-old male who presently is being dialyzed. His weight is 68.3 kg and he is 68 inches tall. VITAL SIGNS: Temperature is 98.0, pulse is 83, respirations 20, blood pressure 129/77. ABDOMEN: Soft. There is a scar of recent surgery on the right lower quadrant on his common femoral artery, the right common femoral artery pseudoaneurysm. The penis is normal. The scrotum has some swelling and erythema and some edema as well, that is because of the surgery in the right lower jose angel drant. The edema goes down in the scrotum, and the scrotum swells, but definitely there is no sign or concern from this exam of any Fred gangrene. LABORATORIES: CBC shows a white count of 6.7, hemoglobin 9.6, hematocrit 28.1. BUN is 53, creatini ne 7.92. The patient is being dialyzed at the present. IMPRESSION: Scrotal edema and erythema secondary to the surgery on his right common femoral artery, and the edema goes down from area into the scrotum, but there are no findings of Fred gangrene. Therefore from a urological standpoint, there is no Fred gangrene, and there is no need for th e antibiotics to treat the Fred gangrene; however, if antibiotics are needed for any other reaso n, that is okay. I will follow his urological problem with you. We will just elevated the scrotum on a towel and that should help. Dictated By: TRISH SABA/SERGO Conf#: [id number] DID#: [id number]
--- NOTE | 2016-07-31 13:11 | CONS ---
DATE OF ADMISSION: 07/11/2016 DATE OF CONSULTATION: 07/31/2016 TYPE OF CONSULTATION: Infectious disease. REASON FOR CONSULTATION: Antibiotic management. HISTORY OF PRESENT ILLNESS: Lux Cottrell is a 50-year-old male with numerous problems who was admit harish with diarrhea, abdominal cramps and general weakness on 07/09/2016. His past problems include: 1. Status post bilateral rotator cuff repairs. 2. Status post nasal surgery for a deviated septum. 3. Status post right eye removal and prosthetic eye placement in 2011 secondary to corneal hematoma . 4. Status post percutaneous coronary intervention with instent thrombosis. 5. Status post Perm-A-Cath placement and removal. 6. Status post bilateral AV fistulas. 7. Status post left upper extremity AV graft for end-stage renal disease. ALLERGIES: 1. AZITHROMYCIN, 2. CODEINE. 3. ERYTHROMYCIN. 4. MORPHINE. 5. ADHESIVE TAPE. The patient is followed by nephrology, Dr. Hubbard, and of note, the patient also has recurrent u rinary tract infections, obviously diabetic nephropathy, and bilateral foot pain. Currently he was seen in consultation by Dr. Pagan of urology. Dr. Pagan notes the patient was recently admitted to the hospital and underwent surgery for a right common iliac artery pseudoaneurysm and the on the was noted to have redness and swelling of the scrotum. The patient is diabetic and there was concern for Fred's gangrene and therefore he was asked to see the patient. He noted that he has a left upper extremity graft, a history of Clostridium difficile, and he also has a neurogenic blad lorelei, previously he had a suprapubic tube, then the tube was removed. The patient is still making ur ine, which he has to force out. He felt that the scrotal edema and erythema were secondary to the s urgery of the right common femoral artery and the edema will go down from the area into the scrotum, but there were no findings of Fred's gangrene. There is no need for antibiotic therapy to liz t for the Fred's gangrene. PAST MEDICAL HISTORY: Operations as outlined. FAMILY HISTORY: Noncontributory. SOCIAL HISTORY: He lives at home. He does not smoke, drink or abuse drugs. MEDICATIONS: Per chart. REVIEW OF SYSTEMS: As per HPI. PHYSICAL EXAMINATION: GENERAL: The patient is an elderly-appearing male who is awake, responsive, in no acute distress. VITAL SIGNS: Stable. He is afebrile. SKIN: Without generalized rash. HEENT: He has a right eye prosthesis. Left pupil is equal, round, and reactive to light. Mouth wi thout pharyngeal or injection. NECK: Supple. LYMPH NODES: None palpable. CHEST: Decreased breath sounds at the bases. HEART: Without murmur or gallop. ABDOMEN: Soft, nontender, without organosplenomegaly or masses. EXTREMITIES: Without cyanosis, clubbing, or edema. His left upper AV graft with a palpable thrill . RECTAL AND GENITAL EXAMS: The scrotal area is red and edematous, as previously outlined. He has ev idence of surgery to the right common iliac artery, done by Dr. Byrnes. NEUROLOGIC EVALUATION: No focal neurological abnormalities. IMPRESSION AND PLAN: The patient is currently on vancomycin and meropenem, I imagine to make sure that we are not dealing with a Fred's gangrene. His Clostridium difficile assay is negative as o f now and he has no methicillin-resistant Staphylococcus. Will continue him on the current therapy. I want to thank Dr. Haddad for asking me to see this migue gentleman in consultation. Dictated By: WILEY RAMOS MD, JD/SERGO Conf#: [id number] DID#: [id number]
--- NOTE | 2016-07-31 13:45 | CONS ---
Date/Time of Note Date/Time of Note DATE: 07/31/16 TIME: 13:43 Consult Date/Type/Reason Admit Date/Time Jul 11, 2016 at 12:19 Type of Consultation: rheum Subjective Above noted re right groin. Leg aches butter but still bothersome. Objective Alert and oriented Chest clear Hear RR No synovitis. Vital Signs Date Time Temp Pulse Resp B/P Pulse Ox O2 Delivery O2 Flow Rate FiO2 07/31/16 07:46 98.0 83 20 115/ 95 07/29/16 18:00 Room Air 07/29/16 03:00 2.0 Intake and Output 07/30/16 07/30/16 07/31/16 15:00 23:00 07:00 Intake Total 1220 ml 360 ml Balance 1220 ml 360 ml Results/Medications Result Diagram: 07/31/16 0530 07/31/16 0530 Results 24 hrs Laboratory Tests Test 07/30/16 17:27 07/30/16 19:04 07/30/16 19:06 07/30/16 19:44 Bedside Glucose 325 H 539 *H 271 H Activated Partial Thromboplast Time > 180.0 *H Glucose Level 217 Test 07/30/16 21:33 07/31/16 05:30 07/31/16 05:39 07/31/16 08:14 Bedside Glucose 164 331 H 302 H Alanine Aminotransferase (ALT/SGPT) 50 Albumin 3.2 L Albumin/Globulin Ratio 1.06 Alkaline Phosphatase 217 H Anion Gap 24 H Aspartate Amino Transf (AST/SGOT) 32 Basophils # 0.0 Basophils % 0.3 Blood Morphology Comment Blood Urea Nitrogen 53 H Calcium Level 7.5 L Carbon Dioxide Level 22 Chloride Level 91 L Creatinine 7.92 H Direct Bilirubin 0.00 Eosinophils # 0.5 Eosinophils % 7.2 H Globulin 3.00 Glucose Level 363 H Hematocrit 28.1 L Hemoglobin 9.6 L Indirect Bilirubin 0.1 Lymphocytes # 0.7 L Lymphocytes % 10.4 L Magnesium Level 1.9 Mean Corpuscular Hemoglobin 30.6 Mean Corpuscular Hemoglobin Concent 33.9 Mean Corpuscular Volume 90.3 Mean Platelet Volume 9.9 Monocytes # 0.7 Monocytes % 10.8 Neutrophils # 4.8 Neutrophils % 71.3 Nucleated Red Blood Cells # 0.0 Nucleated Red Blood Cells % 0.0 Platelet Count 187 Potassium Level 4.7 Red Blood Count 3.12 L Red Cell Distribution Width 16.6 H Sodium Level 132 L Total Bilirubin 0.1 L Total Protein 6.2 White Blood Count 6.7 Test 07/31/16 11:02 07/31/16 13:16 Bedside Glucose 225 H 195 Medications Current Medications Diphenhydramine HCl (Benadryl) 50 mg Q6H PRN IV ITCHING Last administered on 11:05; Admin Dose 50 MG; Start 07/09/16 at 17:00 Non-Formulary Medication (Non-Formulary Insulin) INSULIN PUMP see la... [id number] Last administered on 07/31/16 11:12; Admin Dose 8 UNIT; Start 07/09/16 at 19:45 Non-Formulary Medication (Non-Formulary Insulin) INSULIN PUMP see la... HS SC Last administered on 07/28/16 21:22; Admin Dose 5 UNIT; Start 07/09/16 at 21:00 Miscellaneous Information 1 ea NOTE XX ; Start 07/09/16 at 18:30 Glucose (Glutose) 15 gm Q15M PRN PO DECREASED GLUCOSE; Start 07/09/16 at 18:30 Glucose (Glutose) 22.5 gm Q15M PRN PO DECREASED GLUCOSE; Start 07/09/16 at 18: 30 Dextrose (D50w Syringe) 25 ml Q15M PRN IV DECREASED GLUCOSE Last administered on 07/25/16 17:08; Admin Dose 25 ML; Start 07/09/16 at 18:30 Dextrose (D50w Syringe) 50 ml Q15M PRN IV DECREASED GLUCOSE Last administered on 07/19/16 20:58; Admin Dose 50 ML; Start 07/09/16 at 18:30 Glucagon (Glucagen) 1 mg Q15M PRN IM DECREASED GLUCOSE; Start 07/09/16 at 18:30 Glucose (Glutose) 15 gm Q15M PRN BUCCAL DECREASED GLUCOSE; Start 07/09/16 at 18 :30 Aspirin (Halfprin) 81 mg DAILY PO Last administered on 07/31/16 08:08; Admin Dose 81 MG; Start 07/10/16 at 09:00 Atorvastatin Calcium (Lipitor) 80 mg QHS PO Last administered on 07/30/16 21: 45; Admin Dose 80 MG; Start 07/10/16 at 21:00 Clonidine (Catapres) 0.1 mg Q6 PO Last administered on 07/31/16 05:37; Admin Dose 0.1 MG; Start 07/10/16 at 12:00 Isosorbide Mononitrate (Imdur) 60 mg DAILY PO Last administered on 07/30/16 12 :46; Admin Dose 60 MG; Start 07/10/16 at 10:00 Lactobacillus Acidoph/Bulgaricus (Floranex) 1 tab TID PO Last administered on 13:18; Admin Dose 1 TAB; Start 07/10/16 at 09:00 Metoprolol Succinate (Toprol Xl) 50 mg BID PO Last administered on 07/30/16 21 :46; Admin Dose 50 MG; Start 07/10/16 at 10:00 Prasugrel (Effient) 10 mg DAILY PO Last administered on 07/31/16 08:08; Admin Dose 10 MG; Start 07/10/16 at 10:30 Acetaminophen (Tylenol Tab) 500 mg Q4H PRN PO PAIN AND OR ELEVATED TEMP Last administered on 07/30/16 20:06; Admin Dose 500 MG; Start 07/10/16 at 09:00 Cholestyramine Resin (Questran Light) 4 gm BID PO Last administered on 08:11; Admin Dose 4 GM; Start 07/11/16 at 09:00 Gabapentin (Neurontin) 600 mg TID PO Last administered on 07/31/16 13:18; Admin Dose 600 MG; Start 07/14/16 at 21:00 Pantoprazole (Protonix Tab) 40 mg DAILY@06 PO Last administered on 07/31/16 05 :36; Admin Dose 40 MG; Start 07/16/16 at 06:00 Calcitriol (Rocaltrol) 0.5 mcg DAILY PO Last administered on 07/31/16 08:08; Admin Dose 0.5 MCG; Start 07/24/16 at 10:00 Ondansetron HCl (Zofran Inj) 4 mg Q4H PRN IV NAUSEA AND/OR VOMITING; Start 03/31 at 16:00 Hydromorphone HCl (Dilaudid) 2 mg Q3H PRN IV PAIN Last administered on 11:06; Admin Dose 2 MG; Start 07/27/16 at 23:30 Apixaban 2.5 mg 2.5 mg BID PO Last administered on 07/31/16 08:09; Admin Dose 2.5 MG; Start 07/30/16 at 21:00 Meropenem (Merrem 500 Mg/ 100 ml (Pmx)) 100 ml @ 200 mls/hr Q24H IVPB Last administered on 07/30/16 21:42; Admin Dose 200 MLS/HR; Start 07/30/16 at 21:00 Miscellaneous Information (*Rx Drug Level Order Reminder*) 1 ONCE ONCE XX ; Start 08/01/16 at 05:00; Stop 08/01/16 at 05:01 Assessment/Plan Chief Complaint/Hosp Course Ass 1. Leg pain. Neuropathic in part, responding to Gabapentin. 2. Marked peripheral arterial disease. 3. Possible right lumbar radiculopathy, long standing 4. Renal Failure 5 Right common femoral vein DVT 6. S/p repair of pseudoaneurism right groin. Rec. Will increase Gabapentin at night to 900 mg and consider 900 mg tid, if tolerated. Increase ambulation as tolerated. Problems: ENMA GRAHAM MD Jul 31, 2016 13:45
[2016-07-31] MEDS: PATIROMER CALCIUM SORBITEX 16.8 GM PKT PO SCH (14:23)
--- NOTE | 2016-07-31 17:37 | CONS ---
Date/Time of Note Date/Time of Note DATE: 07/31/16 TIME: 17:37 Consult Date/Type/Reason Admit Date/Time Jul 11, 2016 at 12:19 Initial Consult Date 07/27/16 Type of Consultation: Cardio Objective Vital Signs Date Time Temp Pulse Resp B/P Pulse Ox O2 Delivery O2 Flow Rate FiO2 07/31/16 07:46 98.0 83 20 115/ 95 07/29/16 18:00 Room Air 07/29/16 03:00 2.0 Intake and Output 07/30/16 07/30/16 07/31/16 15:00 23:00 07:00 Intake Total 1220 ml 360 ml Balance 1220 ml 360 ml Results/Medications Result Diagram: 07/31/16 0530 07/31/16 0530 Results 24 hrs Laboratory Tests Test 07/30/16 19:04 07/30/16 19:06 07/30/16 19:44 07/30/16 21:33 Bedside Glucose 539 *H 271 H 164 Activated Partial Thromboplast Time > 180.0 *H Glucose Level 217 Test 07/31/16 05:30 07/31/16 05:39 07/31/16 08:14 07/31/16 11:02 Alanine Aminotransferase (ALT/SGPT) 50 Albumin 3.2 L Albumin/Globulin Ratio 1.06 Alkaline Phosphatase 217 H Anion Gap 24 H Aspartate Amino Transf (AST/SGOT) 32 Basophils # 0.0 Basophils % 0.3 Blood Morphology Comment Blood Urea Nitrogen 53 H Calcium Level 7.5 L Carbon Dioxide Level 22 Chloride Level 91 L Creatinine 7.92 H Direct Bilirubin 0.00 Eosinophils # 0.5 Eosinophils % 7.2 H Globulin 3.00 Glucose Level 363 H Hematocrit 28.1 L Hemoglobin 9.6 L Indirect Bilirubin 0.1 Lymphocytes # 0.7 L Lymphocytes % 10.4 L Magnesium Level 1.9 Mean Corpuscular Hemoglobin 30.6 Mean Corpuscular Hemoglobin Concent 33.9 Mean Corpuscular Volume 90.3 Mean Platelet Volume 9.9 Monocytes # 0.7 Monocytes % 10.8 Neutrophils # 4.8 Neutrophils % 71.3 Nucleated Red Blood Cells # 0.0 Nucleated Red Blood Cells % 0.0 Platelet Count 187 Potassium Level 4.7 Red Blood Count 3.12 L Red Cell Distribution Width 16.6 H Sodium Level 132 L Total Bilirubin 0.1 L Total Protein 6.2 White Blood Count 6.7 Bedside Glucose 331 H 302 H 225 H Test 07/31/16 13:16 07/31/16 14:26 07/31/16 16:44 Bedside Glucose 195 189 103 Medications Current Medications Diphenhydramine HCl (Benadryl) 50 mg Q6H PRN IV ITCHING Last administered on 17:05; Admin Dose 50 MG; Start 07/09/16 at 17:00 Non-Formulary Medication (Non-Formulary Insulin) INSULIN PUMP see la... [id number] SC Last administered on 07/31/16 14:31; Admin Dose 3 UNIT; Start 07/09/16 at 19:45 Non-Formulary Medication (Non-Formulary Insulin) INSULIN PUMP see la... HS SC Last administered on 07/28/16 21:22; Admin Dose 5 UNIT; Start 07/09/16 at 21:00 Miscellaneous Information 1 ea NOTE XX ; Start 07/09/16 at 18:30 Glucose (Glutose) 15 gm Q15M PRN PO DECREASED GLUCOSE; Start 07/09/16 at 18:30 Glucose (Glutose) 22.5 gm Q15M PRN PO DECREASED GLUCOSE; Start 07/09/16 at 18: 30 Dextrose (D50w Syringe) 25 ml Q15M PRN IV DECREASED GLUCOSE Last administered on 07/25/16 17:08; Admin Dose 25 ML; Start 07/09/16 at 18:30 Dextrose (D50w Syringe) 50 ml Q15M PRN IV DECREASED GLUCOSE Last administered on 07/19/16 20:58; Admin Dose 50 ML; Start 07/09/16 at 18:30 Glucagon (Glucagen) 1 mg Q15M PRN IM DECREASED GLUCOSE; Start 07/09/16 at 18:30 Glucose (Glutose) 15 gm Q15M PRN BUCCAL DECREASED GLUCOSE; Start 07/09/16 at 18 :30 Aspirin (Halfprin) 81 mg DAILY PO Last administered on 07/31/16 08:08; Admin Dose 81 MG; Start 07/10/16 at 09:00 Atorvastatin Calcium (Lipitor) 80 mg QHS PO Last administered on 07/30/16 21: 45; Admin Dose 80 MG; Start 07/10/16 at 21:00 Clonidine (Catapres) 0.1 mg Q6 PO Last administered on 07/31/16 17:08; Admin Dose 0.1 MG; Start 07/10/16 at 12:00 Isosorbide Mononitrate (Imdur) 60 mg DAILY PO Last administered on 07/30/16 12 :46; Admin Dose 60 MG; Start 07/10/16 at 10:00 Lactobacillus Acidoph/Bulgaricus (Floranex) 1 tab TID PO Last administered on 13:18; Admin Dose 1 TAB; Start 07/10/16 at 09:00 Metoprolol Succinate (Toprol Xl) 50 mg BID PO Last administered on 07/30/16 21 :46; Admin Dose 50 MG; Start 07/10/16 at 10:00 Prasugrel (Effient) 10 mg DAILY PO Last administered on 07/31/16 08:08; Admin Dose 10 MG; Start 07/10/16 at 10:30 Acetaminophen (Tylenol Tab) 500 mg Q4H PRN PO PAIN AND OR ELEVATED TEMP Last administered on 07/30/16 20:06; Admin Dose 500 MG; Start 07/10/16 at 09:00 Cholestyramine Resin (Questran Light) 4 gm BID PO Last administered on 08:11; Admin Dose 4 GM; Start 07/11/16 at 09:00 Pantoprazole (Protonix Tab) 40 mg DAILY@06 PO Last administered on 07/31/16 05 :36; Admin Dose 40 MG; Start 07/16/16 at 06:00 Calcitriol (Rocaltrol) 0.5 mcg DAILY PO Last administered on 07/31/16 08:08; Admin Dose 0.5 MCG; Start 07/24/16 at 10:00 Ondansetron HCl (Zofran Inj) 4 mg Q4H PRN IV NAUSEA AND/OR VOMITING; Start 03/31 at 16:00 Hydromorphone HCl (Dilaudid) 2 mg Q3H PRN IV PAIN Last administered on 17:05; Admin Dose 2 MG; Start 07/27/16 at 23:30 Apixaban 2.5 mg 2.5 mg BID PO Last administered on 07/31/16 08:09; Admin Dose 2.5 MG; Start 07/30/16 at 21:00 Meropenem (Merrem 500 Mg/ 100 ml (Pmx)) 100 ml @ 200 mls/hr Q24H IVPB Last administered on 07/30/16t 21:42; Admin Dose 200 MLS/HR; Start 07/30/16 at 21:00 Miscellaneous Information (*Rx Drug Level Order Reminder*) 1 ONCE ONCE XX ; Start 08/01/16 at 05:00; Stop 08/01/16 at 05:01 Gabapentin (Neurontin) 800 mg TID PO ; Start 07/31/16 at 21:00 Assessment/Plan Chief Complaint/Hosp Course Ephraim is known to me , He has PCI of LAD and PAD. 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 called in for pre op today by Amina. Problems: Additional Assessment/Plan On Lexapro ID see pt Continue abx There is no sign of fornier's gang at this time Pt has complicaiton of leg angio with Pseudoaneurysm s/p repair with cellulitis and testicular cellulitis. On insulin pump Pt as residual PAD f/u out pt in my office. Will f/u. CYNDIE GARCIA MD Jul 31, 2016 17:37
--- NOTE | 2016-07-31 18:32 | CONS ---
Date/Time of Note Date/Time of Note DATE: 07/31/16 TIME: 18:31 Assessment/Plan Assessment/Plan Additional Assessment/Plan IMPRESSION: 1. Diarrhea. 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 Improved after Questran restarted. C. Diff negative.better 2. Diabetes mellitus. 3. Renal failure. 4. Coronary artery disease. 5. Hypertension. 6.pain lower extremity, 7.rt common femoral artery pseudo aneurysm,rt FV dvt 7.left lower extremity angioplasty and stenting 9.scrotal swelling Plan continue Questran pain management vascular intervention as per vascular surgeon antibiotics as per ID Consultation Date/Type/Reason Admit Date/Time Jul 11, 2016 at 12:19 Type of Consultation: Cardio 24 HR Interval Summary Free Text/Dictation pain at the site of surgery Exam/Review of Systems Vital Signs Vitals Vital Signs Date Time Temp Pulse Resp B/P Pulse Ox O2 Delivery O2 Flow Rate FiO2 07/31/16 07:46 98.0 83 20 115/ 95 07/29/16 18:00 Room Air 07/29/16 03:00 2.0 Intake and Output 07/30/16 07/30/16 07/31/16 15:00 23:00 07:00 Intake Total 1220 ml 360 ml Balance 1220 ml 360 ml Exam Constitutional: alert, oriented, well developed Psych: nl mood/affect, no complaints Head: atraumatic, normocephalic Eyes: EOMI, PERRL, nl conjunctiva, nl lids, nl sclera ENMT: nl external ears & nose, nl lips & teeth, nl nasal mucosa & septum Neck: non-tender, supple Respiratory: clear to auscultation, normal air movement Cardiovascular: nl pulses, regular rate and rhythm Gastrointestinal: nl liver, spleen, non-tender, soft Musculoskeletal: nl extremities to inspection, nl gait and stance Extremities: normal pulses 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: [employer] INTERN II-XII intact, nl mental status, nl speech, nl strength Skin: nl turgor, No rash or lesions Lymph: nl lymph nodes Results Result Diagram: 07/31/16 0530 07/31/16 0530 Results 24 hrs Laboratory Tests Test 07/30/16 19:04 07/30/16 19:06 07/30/16 19:44 07/30/16 21:33 Bedside Glucose 539 *H 271 H 164 Activated Partial Thromboplast Time > 180.0 *H Glucose Level 217 Test 07/31/16 05:30 07/31/16 05:39 07/31/16 08:14 07/31/16 11:02 Alanine Aminotransferase (ALT/SGPT) 50 Albumin 3.2 L Albumin/Globulin Ratio 1.06 Alkaline Phosphatase 217 H Anion Gap 24 H Aspartate Amino Transf (AST/SGOT) 32 Basophils # 0.0 Basophils % 0.3 Blood Morphology Comment Blood Urea Nitrogen 53 H Calcium Level 7.5 L Carbon Dioxide Level 22 Chloride Level 91 L Creatinine 7.92 H Direct Bilirubin 0.00 Eosinophils # 0.5 Eosinophils % 7.2 H Globulin 3.00 Glucose Level 363 H Hematocrit 28.1 L Hemoglobin 9.6 L Indirect Bilirubin 0.1 Lymphocytes # 0.7 L Lymphocytes % 10.4 L Magnesium Level 1.9 Mean Corpuscular Hemoglobin 30.6 Mean Corpuscular Hemoglobin Concent 33.9 Mean Corpuscular Volume 90.3 Mean Platelet Volume 9.9 Monocytes # 0.7 Monocytes % 10.8 Neutrophils # 4.8 Neutrophils % 71.3 Nucleated Red Blood Cells # 0.0 Nucleated Red Blood Cells % 0.0 Platelet Count 187 Potassium Level 4.7 Red Blood Count 3.12 L Red Cell Distribution Width 16.6 H Sodium Level 132 L Total Bilirubin 0.1 L Total Protein 6.2 White Blood Count 6.7 Bedside Glucose 331 H 302 H 225 H Test 07/31/16 13:16 07/31/16 14:26 07/31/16 16:44 Bedside Glucose 195 189 103 Medications Medications Current Medications Diphenhydramine HCl (Benadryl) 50 mg Q6H PRN IV ITCHING Last administered on 17:05; Admin Dose 50 MG; Start 07/09/16 at 17:00 Non-Formulary Medication (Non-Formulary Insulin) INSULIN PUMP see la... [id number] SC Last administered on 07/31/16 14:31; Admin Dose 3 UNIT; Start 07/09/16 at 19:45 Non-Formulary Medication (Non-Formulary Insulin) INSULIN PUMP see la... HS SC Last administered on 07/28/16 21:22; Admin Dose 5 UNIT; Start 07/09/16 at 21:00 Miscellaneous Information 1 ea NOTE XX ; Start 07/09/16 at 18:30 Glucose (Glutose) 15 gm Q15M PRN PO DECREASED GLUCOSE; Start 07/09/16 at 18:30 Glucose (Glutose) 22.5 gm Q15M PRN PO DECREASED GLUCOSE; Start 07/09/16 at 18: 30 Dextrose (D50w Syringe) 25 ml Q15M PRN IV DECREASED GLUCOSE Last administered on 07/25/16 17:08; Admin Dose 25 ML; Start 07/09/16 at 18:30 Dextrose (D50w Syringe) 50 ml Q15M PRN IV DECREASED GLUCOSE Last administered on 07/19/16 20:58; Admin Dose 50 ML; Start 07/09/16 at 18:30 Glucagon (Glucagen) 1 mg Q15M PRN IM DECREASED GLUCOSE; Start 07/09/16 at 18:30 Glucose (Glutose) 15 gm Q15M PRN BUCCAL DECREASED GLUCOSE; Start 07/09/16 at 18 :30 Aspirin (Halfprin) 81 mg DAILY PO Last administered on 07/31/16 08:08; Admin Dose 81 MG; Start 07/10/16 at 09:00 Atorvastatin Calcium (Lipitor) 80 mg QHS PO Last administered on 07/30/16 21: 45; Admin Dose 80 MG; Start 07/10/16 at 21:00 Clonidine (Catapres) 0.1 mg Q6 PO Last administered on 07/31/16 17:08; Admin Dose 0.1 MG; Start 07/10/16 at 12:00 Isosorbide Mononitrate (Imdur) 60 mg DAILY PO Last administered on 07/30/16 12 :46; Admin Dose 60 MG; Start 07/10/16 at 10:00 Lactobacillus Acidoph/Bulgaricus (Floranex) 1 tab TID PO Last administered on 13:18; Admin Dose 1 TAB; Start 07/10/16 at 09:00 Metoprolol Succinate (Toprol Xl) 50 mg BID PO Last administered on 07/30/16 21 :46; Admin Dose 50 MG; Start 07/10/16 at 10:00 Prasugrel (Effient) 10 mg DAILY PO Last administered on 07/31/16 08:08; Admin Dose 10 MG; Start 07/10/16 at 10:30 Acetaminophen (Tylenol Tab) 500 mg Q4H PRN PO PAIN AND OR ELEVATED TEMP Last administered on 07/30/16 20:06; Admin Dose 500 MG; Start 07/10/16 at 09:00 Cholestyramine Resin (Questran Light) 4 gm BID PO Last administered on 08:11; Admin Dose 4 GM; Start 07/11/16 at 09:00 Pantoprazole (Protonix Tab) 40 mg DAILY@06 PO Last administered on 07/31/16 05 :36; Admin Dose 40 MG; Start 07/16/16 at 06:00 Calcitriol (Rocaltrol) 0.5 mcg DAILY PO Last administered on 07/31/16 08:08; Admin Dose 0.5 MCG; Start 07/24/16 at 10:00 Ondansetron HCl (Zofran Inj) 4 mg Q4H PRN IV NAUSEA AND/OR VOMITING; Start 03/31 at 16:00 Hydromorphone HCl (Dilaudid) 2 mg Q3H PRN IV PAIN Last administered on 17:05; Admin Dose 2 MG; Start 07/27/16 at 23:30 Apixaban 2.5 mg 2.5 mg BID PO Last administered on 07/31/16 08:09; Admin Dose 2.5 MG; Start 07/30/16 at 21:00 Meropenem (Merrem 500 Mg/ 100 ml (Pmx)) 100 ml @ 200 mls/hr Q24H IVPB Last administered on 07/30/16 21:42; Admin Dose 200 MLS/HR; Start 07/30/16 at 21:00 Miscellaneous Information (*Rx Drug Level Order Reminder*) 1 ONCE ONCE XX ; Start 08/01/16 at 05:00; Stop 08/01/16 at 05:01 Gabapentin (Neurontin) 800 mg TID PO ; Start 07/31/16 at 21:00 NIYAH REED MD Jul 31, 2016 18:32
--- NOTE | 2016-07-31 19:40 | CONS ---
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 May be pump malfunction versus infectious versus edema with decreased insulin perfusion. [employer] contacted for potential pump replacement. In the meantime patient will discontinue pump therapy and change to prandial and basal protocol. (see orders). Will continue to monitor patient's blood glucose readings and adjust accordingly. (2) Scrotal erythema Status: Acute Comment: Appreciate Dr. Pagan and Dr. Allison input. Improved scrotal edema with continued erythema and pain. On IV Abx. Fornier's Gangrene not a concern at this time. Consultation Date/Type/Reason Admit Date/Time Jul 11, 2016 at 12:19 Initial Consult Date 07/29/16 Type of Consultation: Endo Reason for Consultation DM management 24 HR Interval Summary Free Text/Dictation Scrotum black oxide coating equipment tender but less swollen. Still having trouble with glucose readings. Wants to switch to basal prandial insulin. Exam/Review of Systems Vital Signs Vitals Vital Signs Date Time Temp Pulse Resp B/P Pulse Ox O2 Delivery O2 Flow Rate FiO2 07/31/16 19:27 98.6 86 20 123/74 94 07/29/16 18:00 Room Air 07/29/16 03:00 2.0 Intake and Output 07/30/16 07/30/16 07/31/16 15:00 23:00 07:00 Intake Total 1220 ml 360 ml Balance 1220 ml 360 ml Exam Constitutional: alert, oriented, well developed Neck: supple Respiratory: clear to auscultation Cardiovascular: regular rate and rhythm Gastrointestinal: other, soft Genitourinary - Male: nl scrotum (erythema, tender and edema (decreased from yesterday)), other (wound vac removed. ) Extremities: other (Jim bandage on Right lower extremity) Results POC, Labs and Vitals reviewed Result Diagram: 07/31/16 0530 07/31/16 0530 Results 24 hrs Laboratory Tests Test 07/30/16 19:44 07/30/16 21:33 07/31/16 05:30 07/31/16 05:39 Activated Partial Thromboplast Time > 180.0 *H Glucose Level 217 363 H Bedside Glucose 164 331 H Alanine Aminotransferase (ALT/SGPT) 50 Albumin 3.2 L Albumin/Globulin Ratio 1.06 Alkaline Phosphatase 217 H Anion Gap 24 H Aspartate Amino Transf (AST/SGOT) 32 Basophils # 0.0 Basophils % 0.3 Blood Morphology Comment Blood Urea Nitrogen 53 H Calcium Level 7.5 L Carbon Dioxide Level 22 Chloride Level 91 L Creatinine 7.92 H Direct Bilirubin 0.00 Eosinophils # 0.5 Eosinophils % 7.2 H Globulin 3.00 Hematocrit 28.1 L Hemoglobin 9.6 L Indirect Bilirubin 0.1 Lymphocytes # 0.7 L Lymphocytes % 10.4 L Magnesium Level 1.9 Mean Corpuscular Hemoglobin 30.6 Mean Corpuscular Hemoglobin Concent 33.9 Mean Corpuscular Volume 90.3 Mean Platelet Volume 9.9 Monocytes # 0.7 Monocytes % 10.8 Neutrophils # 4.8 Neutrophils % 71.3 Nucleated Red Blood Cells # 0.0 Nucleated Red Blood Cells % 0.0 Platelet Count 187 Potassium Level 4.7 Red Blood Count 3.12 L Red Cell Distribution Width 16.6 H Sodium Level 132 L Total Bilirubin 0.1 L Total Protein 6.2 White Blood Count 6.7 Test 07/31/16 08:14 07/31/16 11:02 07/31/16 13:16 07/31/16 14:26 Bedside Glucose 302 H 225 H 195 189 Test 07/31/16 16:44 Bedside Glucose 103 Medications Medications Current Medications Diphenhydramine HCl (Benadryl) 50 mg Q6H PRN IV ITCHING Last administered on 17:05; Admin Dose 50 MG; Start 07/09/16 at 17:00 Non-Formulary Medication (Non-Formulary Insulin) INSULIN PUMP see la... [id number] SC Last administered on 07/31/16 14:31; Admin Dose 3 UNIT; Start 07/09/16 at 19:45 Non-Formulary Medication (Non-Formulary Insulin) INSULIN PUMP see la... HS SC Last administered on 07/28/16 21:22; Admin Dose 5 UNIT; Start 07/09/16 at 21:00 Miscellaneous Information 1 ea NOTE XX ; Start 07/09/16 at 18:30 Glucose (Glutose) 15 gm Q15M PRN PO DECREASED GLUCOSE; Start 07/09/16 at 18:30 Glucose (Glutose) 22.5 gm Q15M PRN PO DECREASED GLUCOSE; Start 07/09/16 at 18: 30 Dextrose (D50w Syringe) 25 ml Q15M PRN IV DECREASED GLUCOSE Last administered on 07/25/16 17:08; Admin Dose 25 ML; Start 07/09/16 at 18:30 Dextrose (D50w Syringe) 50 ml Q15M PRN IV DECREASED GLUCOSE Last administered on 07/19/16 20:58; Admin Dose 50 ML; Start 07/09/16 at 18:30 Glucagon (Glucagen) 1 mg Q15M PRN IM DECREASED GLUCOSE; Start 07/09/16 at 18:30 Glucose (Glutose) 15 gm Q15M PRN BUCCAL DECREASED GLUCOSE; Start 07/09/16 at 18 :30 Aspirin (Halfprin) 81 mg DAILY PO Last administered on 07/31/16 08:08; Admin Dose 81 MG; Start 07/10/16 at 09:00 Atorvastatin Calcium (Lipitor) 80 mg QHS PO Last administered on 07/30/16 21: 45; Admin Dose 80 MG; Start 07/10/16 at 21:00 Clonidine (Catapres) 0.1 mg Q6 PO Last administered on 07/31/16 17:08; Admin Dose 0.1 MG; Start 07/10/16 at 12:00 Isosorbide Mononitrate (Imdur) 60 mg DAILY PO Last administered on 07/30/16 12 :46; Admin Dose 60 MG; Start 07/10/16 at 10:00 Lactobacillus Acidoph/Bulgaricus (Floranex) 1 tab TID PO Last administered on 13:18; Admin Dose 1 TAB; Start 07/10/16 at 09:00 Metoprolol Succinate (Toprol Xl) 50 mg BID PO Last administered on 07/30/16 21 :46; Admin Dose 50 MG; Start 07/10/16 at 10:00 Prasugrel (Effient) 10 mg DAILY PO Last administered on 07/31/16 08:08; Admin Dose 10 MG; Start 07/10/16 at 10:30 Acetaminophen (Tylenol Tab) 500 mg Q4H PRN PO PAIN AND OR ELEVATED TEMP Last administered on 07/30/16 20:06; Admin Dose 500 MG; Start 07/10/16 at 09:00 Cholestyramine Resin (Questran Light) 4 gm BID PO Last administered on 08:11; Admin Dose 4 GM; Start 07/11/16 at 09:00 Pantoprazole (Protonix Tab) 40 mg DAILY@06 PO Last administered on 07/31/16 05 :36; Admin Dose 40 MG; Start 07/16/16 at 06:00 Calcitriol (Rocaltrol) 0.5 mcg DAILY PO Last administered on 07/31/16 08:08; Admin Dose 0.5 MCG; Start 07/24/16 at 10:00 Ondansetron HCl (Zofran Inj) 4 mg Q4H PRN IV NAUSEA AND/OR VOMITING; Start 03/31 at 16:00 Hydromorphone HCl (Dilaudid) 2 mg Q3H PRN IV PAIN Last administered on 17:05; Admin Dose 2 MG; Start 07/27/16 at 23:30 Apixaban 2.5 mg 2.5 mg BID PO Last administered on 07/31/16 08:09; Admin Dose 2.5 MG; Start 07/30/16 at 21:00 Meropenem (Merrem 500 Mg/ 100 ml (Pmx)) 100 ml @ 200 mls/hr Q24H IVPB Last administered on 07/30/16 21:42; Admin Dose 200 MLS/HR; Start 07/30/16 at 21:00 Miscellaneous Information (*Rx Drug Level Order Reminder*) 1 ONCE ONCE XX ; Start 08/01/16 at 05:00; Stop 08/01/16 at 05:01 Gabapentin (Neurontin) 800 mg TID PO ; Start 07/31/16 at 21:00 KALPANA MARTINEZ MD Jul 31, 2016 19:40
[2016-07-31] MEDS: INSULIN ASPART [NOVOLOG] 3 ML PEN SC SCH (20:51)
[2016-07-31] MEDS: ATORVASTATIN 80 MG TAB PO SCH (20:54)
[2016-07-31] MEDS: GABAPENTIN 400 MG CAP PO SCH (20:55)
[2016-07-31] MEDS: ACCUCHECK XX SCH (21:00)
[2016-07-31] MEDS: MEROPENEM 500 MG/100 ML (PMX) 100 ML IVPB SCH (21:00)
[2016-08-01] MEDS: HYDROmorphONE 2 MG/ML SYG IV PRN ×8 (02:03→23:02)
[2016-08-01] MEDS: DIPHENHYDRAMINE 50 MG INJ IV PRN ×3 (05:00→23:01)
[2016-08-01] MEDS: PANTOPRAZOLE (EC) 40 MG TAB PO SCH (05:47)
[2016-08-01 06:46] LABS: BASOPHILS % 0.4 % (0.0-2.0); EOSINOPHILS # 0.6 10^3/ul (0.0-0.5); EOSINOPHILS % 9.7 % (0.0-7.0); HEMATOCRIT 28.3 % (42.0-52.0); HEMOGLOBIN 9.6 g/dl (14.0-18.0); LYMPHOCYTES # 0.8 10^3/ul (0.8-2.9); LYMPHOCYTES % 12.3 % (15.0-51.0); MEAN CORPUSCULAR HEMOGLOBIN 30.7 pg (29.0-33.0); MEAN CORPUSCULAR HGB CONC 33.9 g/dl (32.0-37.0); MEAN CORPUSCULAR VOLUME 90.7 fl (82.0-101.0); MEAN PLATELET VOLUME 9.8 fl (7.4-10.4); MONOCYTE # 0.7 10^3/ul (0.3-0.9); MONOCYTES % 11.3 % (0.0-11.0); NEUTROPHIL # 4.1 10^3/ul (1.6-7.5); NEUTROPHILS % 66.3 % (39.0-77.0); PLATELET COUNT 200 10^3/UL (140-440); RED BLOOD COUNT 3.13 10^6/ul (4.70-6.10); RED CELL DISTRIBUTION WIDTH 16.1 % (11.5-14.5); UNCORRECTED WBC 6.2 10^3/ul (4.8-10.8); WHITE BLOOD COUNT 6.2 10^3/ul (4.8-10.8)
[2016-08-01 06:51] LABS: ALBUMIN 3.4 g/dl (3.3-4.9)
[2016-08-01 06:52] LABS: POTASSIUM 4.7 mmol/L (3.5-5.1)
[2016-08-01 06:53] LABS: CREATININE 7.1 mg/dl (0.61-1.24)
[2016-08-01 06:54] LABS: ALBUMIN/GLOBULIN RATIO 1.17; BILIRUBIN,INDIRECT 0.2 mg/dl (0-1.1); BILIRUBIN,TOTAL 0.2 mg/dl (0.2-1.3); TOTAL PROTEIN 6.3 g/dl (6.1-8.1)
[2016-08-01 06:55] LABS: CALCIUM 8.2 mg/dl (8.4-10.2)
[2016-08-01 06:56] LABS: CONDITION 1; LH ANALYZER COMMENTS 1
[2016-08-01 07:29] VITALS: BP 115/56; RESP 18
[2016-08-01] MEDS: SEVELAMER 800 MG TAB PO SCH ×3 (08:20→17:16)
[2016-08-01] MEDS: PRASUGREL HYDROCHLORIDE 10 MG TABLET PO SCH (08:20)
[2016-08-01] MEDS: CALCITRIOL 0.25 MCG CAP PO SCH (08:20)
[2016-08-01] MEDS: LACTOBACILLUS CHEW TAB PO SCH ×3 (08:20→20:00)
[2016-08-01] MEDS: GABAPENTIN 400 MG CAP PO SCH ×3 (08:20→20:00)
[2016-08-01] MEDS: CALCIUM ACETATE 667 MG CAP PO SCH ×3 (08:20→17:16)
[2016-08-01] MEDS: APIXABAN 5 MG TABLET PO SCH ×2 (08:21→20:00)
[2016-08-01] MEDS: ASPIRIN (EC) 81 MG TAB PO SCH (08:22)
[2016-08-01] MEDS: CHOLESTYRAMINE (LIGHT) 4 GM PACKET PO SCH ×2 (08:23→20:34)
[2016-08-01] MEDS: METOPROLOL (XL) 50 MG TAB PO SCH ×2 (08:23→20:00)
[2016-08-01] MEDS: ISOSORBIDE MONONITRATE(SR)60 MG TAB PO SCH (08:24)
[2016-08-01] MEDS: INSULIN ASPART [NOVOLOG] 3 ML PEN SC SCH ×8 (08:31→21:30)
[2016-08-01] MEDS: ACCUCHECK XX SCH ×4 (08:45→20:42)
[2016-08-01] MEDS ORDERED: INSULIN DETEMIR [LEVEMIR] 3ML CART SC SCH (09:00)
[2016-08-01] MEDS: PATIROMER CALCIUM SORBITEX 16.8 GM PKT PO SCH (12:04)
--- NOTE | 2016-08-01 12:21 | CONS ---
Date/Time of Note Date/Time of Note DATE: 08/01/16 TIME: 12:17 Assessment/Plan Assessment/Plan Chief Complaint/Hosp Course #1 end-stage renal disease, on maintenance hemodialysis Thursday. I will order hemodialysis for tomorrow . #2 bilateral foot pain . He has had this pain even before his surgeries . #3 anemia. H/H is stable . #4 hyperkalemia . He is taking Veltassa for elevated K . He is on increased dose of the the Veltassa to 16.8 gm a day .potassium is under control . 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 He has an infection at the surgical site and is on antibiotics . #6 He has a DVT in his proximal R femoral vein and is on Eliquis . Problems: Consultation Date/Type/Reason Admit Date/Time Jul 11, 2016 at 12:19 Type of Consultation: Endo 24 HR Interval Summary Free Text/Dictation He is awake and responsive and feeling better . Constitutional: improved, no complaints Exam/Review of Systems Vital Signs Vitals Vital Signs Date Time Temp Pulse Resp B/P Pulse Ox O2 Delivery O2 Flow Rate FiO2 08/01/16 07:29 98.1 80 18 115/56 94 07/29/16 18:00 Room Air 07/29/16 03:00 2.0 Intake and Output 07/31/16 07/31/16 08/01/16 15:00 23:00 07:00 Intake Total 500 ml 1070 ml 360 ml Output Total 3500 ml 200 ml Balance -3000 ml 870 ml 360 ml Exam Constitutional: alert, oriented, well developed Psych: nl mood/affect, no complaints Respiratory: clear to auscultation, normal air movement Cardiovascular: regular rate and rhythm Gastrointestinal: soft Musculoskeletal: nl extremities to inspection Results Result Diagram: 08/01/1652108/01/16521 Results 24 hrs Laboratory Tests Test 07/31/16 13:16 07/31/16 14:26 07/31/16 16:44 07/31/16 20:48 Bedside Glucose 195 189 103 296 H Test 08/01/16 05:22 08/01/16 08:12 08/01/16 10:24 Alanine Aminotransferase (ALT/SGPT) 47 Albumin 3.4 Albumin/Globulin Ratio 1.17 Alkaline Phosphatase 194 H Anion Gap 22 H Aspartate Amino Transf (AST/SGOT) 30 Basophils # 0.0 Basophils % 0.4 Blood Morphology Comment Blood Urea Nitrogen 42 #H Calcium Level 8.2 L Carbon Dioxide Level 22 Chloride Level 95 L Creatinine 7.10 H Direct Bilirubin 0.00 Eosinophils # 0.6 H Eosinophils % 9.7 H Globulin 2.90 Glucose Level 338 H Hematocrit 28.3 L Hemoglobin 9.6 L Indirect Bilirubin 0.2 Lymphocytes # 0.8 Lymphocytes % 12.3 L Mean Corpuscular Hemoglobin 30.7 Mean Corpuscular Hemoglobin Concent 33.9 Mean Corpuscular Volume 90.7 Mean Platelet Volume 9.8 Monocytes # 0.7 Monocytes % 11.3 H Neutrophils # 4.1 Neutrophils % 66.3 Nucleated Red Blood Cells # 0.0 Nucleated Red Blood Cells % 0.0 Platelet Count 200 Potassium Level 4.7 Random Vancomycin Level 16.9 Red Blood Count 3.13 L Red Cell Distribution Width 16.1 H Sodium Level 134 L Total Bilirubin 0.2 Total Protein 6.3 White Blood Count 6.2 Bedside Glucose 399 H 443 *H Medications Medications Current Medications Diphenhydramine HCl (Benadryl) 50 mg Q6H PRN IV ITCHING Last administered on 05:00; Admin Dose 50 MG; Start 07/09/16 at 17:00 Miscellaneous Information 1 ea NOTE XX ; Start 07/09/16 at 18:30 Glucose (Glutose) 15 gm Q15M PRN PO DECREASED GLUCOSE; Start 07/09/16 at 18:30 Glucose (Glutose) 22.5 gm Q15M PRN PO DECREASED GLUCOSE; Start 07/09/16 at 18: 30 Dextrose (D50w Syringe) 25 ml Q15M PRN IV DECREASED GLUCOSE Last administered on 07/25/16 17:08; Admin Dose 25 ML; Start 07/09/16 at 18:30 Dextrose (D50w Syringe) 50 ml Q15M PRN IV DECREASED GLUCOSE Last administered on 07/19/16 20:58; Admin Dose 50 ML; Start 07/09/16 at 18:30 Glucagon (Glucagen) 1 mg Q15M PRN IM DECREASED GLUCOSE; Start 07/09/16 at 18:30 Glucose (Glutose) 15 gm Q15M PRN BUCCAL DECREASED GLUCOSE; Start 07/09/16 at 18 :30 Aspirin (Halfprin) 81 mg DAILY PO Last administered on 08/01/16 08:22; Admin Dose 81 MG; Start 07/10/16 at 09:00 Atorvastatin Calcium (Lipitor) 80 mg QHS PO Last administered on 07/31/16 20: 54; Admin Dose 80 MG; Start 07/10/16 at 21:00 Clonidine (Catapres) 0.1 mg Q6 PO Last administered on 08/01/16 05:48; Admin Dose 0.1 MG; Start 07/10/16 at 12:00 Isosorbide Mononitrate (Imdur) 60 mg DAILY PO Last administered on 08/01/16 08 :24; Admin Dose 60 MG; Start 07/10/16 at 10:00 Lactobacillus Acidoph/Bulgaricus (Floranex) 1 tab TID PO Last administered on 08:20; Admin Dose 1 TAB; Start 07/10/16 at 09:00 Metoprolol Succinate (Toprol Xl) 50 mg BID PO Last administered on 08/01/16 08 :23; Admin Dose 50 MG; Start 07/10/16 at 10:00 Prasugrel (Effient) 10 mg DAILY PO Last administered on 08/01/16 08:20; Admin Dose 10 MG; Start 07/10/16 at 10:30 Acetaminophen (Tylenol Tab) 500 mg Q4H PRN PO PAIN AND OR ELEVATED TEMP Last administered on 07/30/16 20:06; Admin Dose 500 MG; Start 07/10/16 at 09:00 Cholestyramine Resin (Questran Light) 4 gm BID PO Last administered on 08:11; Admin Dose 4 GM; Start 07/11/16 at 09:00 Pantoprazole (Protonix Tab) 40 mg DAILY@06 PO Last administered on 08/01/16 05 :47; Admin Dose 40 MG; Start 07/16/16 at 06:00 Calcitriol (Rocaltrol) 0.5 mcg DAILY PO Last administered on 08/01/16 08:20; Admin Dose 0.5 MCG; Start 07/24/16 at 10:00 Ondansetron HCl (Zofran Inj) 4 mg Q4H PRN IV NAUSEA AND/OR VOMITING; Start 03/31 at 16:00 Hydromorphone HCl (Dilaudid) 2 mg Q3H PRN IV PAIN Last administered on 11:09; Admin Dose 2 MG; Start 07/27/16 at 23:30 Apixaban 2.5 mg 2.5 mg BID PO Last administered on 08/01/16 08:21; Admin Dose 2.5 MG; Start 07/30/16 at 21:00 Meropenem (Merrem 500 Mg/ 100 ml (Pmx)) 100 ml @ 200 mls/hr Q24H IVPB Last administered on 07/31/16 21:00; Admin Dose 200 MLS/HR; Start 07/30/16 at 21:00 Gabapentin (Neurontin) 800 mg TID PO Last administered on 08/01/16 08:20; Admin Dose 800 MG; Start 07/31/16 at 21:00 Insulin Detemir (Levemir) 15 unit DAILY SC Last administered on 08/01/16 08:30 ; Admin Dose 15 UNIT; Start 08/01/16 at 09:00 DONY HOWARD MD Aug 01, 2016 12:21
--- NOTE | 2016-08-01 13:09 | PN ---
DATE: 08/01/2016 SUBJECTIVE: The patient is alert, lying comfortably in bed, feels much better. No fevers. ANTIMICROBIALS: He is on: 1. Vancomycin. 2. Meropenem. INDWELLINGS: Left upper extremity AV graft, left chest Port-A-Cath LABORATORY DATA: WBC today 6.2, no shift, no bands. MICROBIOLOGY: Cultures have been negative. PHYSICAL EXAMINATION: GENERAL: Chronically ill-appearing, middle-aged white man who is alert, in no distress. HEENT: Head atraumatic, normocephalic. Sclerae anicteric. Buccal mucosa pink. NECK: Supple, trachea midline. CHEST: Rise symmetrical. Breath sounds clear. HEART: S1, S2. ABDOMEN: Soft, bowel sounds present. EXTREMITIES: Without cyanosis. Right lower extremity Jim wrapped. SKIN: With decreased scrotal edema. ASSESSMENT: 1. Right groin scrotal cellulitis, resolving. 2. Status post right common iliac artery pseudoaneurysm repair. 3. End-stage renal disease, hemodialysis dependent. 4. History of Clostridium difficile colitis. 5. Legally blind. PLAN: The patient remains stable. Cellulitis resolving. We are going to discontinue meropenem, ke ep him on vancomycin. Continue present care, scrotal elevation. Dictated By: BIJAN LONGO [employer]CTOR for [employer]/SERGO Conf#: [id number] DID#: [id number]
--- NOTE | 2016-08-01 14:40 | CONS ---
Date/Time of Note Date/Time of Note DATE: 08/01/16 TIME: 14:36 Consult Date/Type/Reason Admit Date/Time Jul 11, 2016 at 12:19 Type of Consultation: Rheum Reason for Consultation Patient now on 800mg Gabapentin tid since last PM. Much improvement of leg aches. Objective Alert, oriented chest clear Heart RRR Abd soft. Ext No synovitis. Vital Signs Date Time Temp Pulse Resp B/P Pulse Ox O2 Delivery O2 Flow Rate FiO2 08/01/16 07:29 98.1 80 18 115/56 94 07/29/16 18:00 Room Air 07/29/16 03:00 2.0 Intake and Output 07/31/16 07/31/16 08/01/16 15:00 23:00 07:00 Intake Total 500 ml 1070 ml 360 ml Output Total 3500 ml 200 ml Balance -3000 ml 870 ml 360 ml Results/Medications Result Diagram: 08/01/16 0522 08/01/16 0522 Results 24 hrs Laboratory Tests Test 07/31/16 16:44 07/31/16 20:48 08/01/16 05:22 08/01/16 08:12 Bedside Glucose 103 296 H 399 H Alanine Aminotransferase (ALT/SGPT) 47 Albumin 3.4 Albumin/Globulin Ratio 1.17 Alkaline Phosphatase 194 H Anion Gap 22 H Aspartate Amino Transf (AST/SGOT) 30 Basophils # 0.0 Basophils % 0.4 Blood Morphology Comment Blood Urea Nitrogen 42 #H Calcium Level 8.2 L Carbon Dioxide Level 22 Chloride Level 95 L Creatinine 7.10 H Direct Bilirubin 0.00 Eosinophils # 0.6 H Eosinophils % 9.7 H Globulin 2.90 Glucose Level 338 H Hematocrit 28.3 L Hemoglobin 9.6 L Indirect Bilirubin 0.2 Lymphocytes # 0.8 Lymphocytes % 12.3 L Mean Corpuscular Hemoglobin 30.7 Mean Corpuscular Hemoglobin Concent 33.9 Mean Corpuscular Volume 90.7 Mean Platelet Volume 9.8 Monocytes # 0.7 Monocytes % 11.3 H Neutrophils # 4.1 Neutrophils % 66.3 Nucleated Red Blood Cells # 0.0 Nucleated Red Blood Cells % 0.0 Platelet Count 200 Potassium Level 4.7 Random Vancomycin Level 16.9 Red Blood Count 3.13 L Red Cell Distribution Width 16.1 H Sodium Level 134 L Total Bilirubin 0.2 Total Protein 6.3 White Blood Count 6.2 Test 08/01/16 10:24 08/01/16 12:00 08/01/16 14:21 Bedside Glucose 443 *H 265 H 131 Medications Current Medications Diphenhydramine HCl (Benadryl) 50 mg Q6H PRN IV ITCHING Last administered on 05:00; Admin Dose 50 MG; Start 07/09/16 at 17:00 Miscellaneous Information 1 ea NOTE XX ; Start 07/09/16 at 18:30 Glucose (Glutose) 15 gm Q15M PRN PO DECREASED GLUCOSE; Start 07/09/16 at 18:30 Glucose (Glutose) 22.5 gm Q15M PRN PO DECREASED GLUCOSE; Start 07/09/16 at 18: 30 Dextrose (D50w Syringe) 25 ml Q15M PRN IV DECREASED GLUCOSE Last administered on 07/25/16 17:08; Admin Dose 25 ML; Start 07/09/16 at 18:30 Dextrose (D50w Syringe) 50 ml Q15M PRN IV DECREASED GLUCOSE Last administered on 07/19/16 20:58; Admin Dose 50 ML; Start 07/09/16 at 18:30 Glucagon (Glucagen) 1 mg Q15M PRN IM DECREASED GLUCOSE; Start 07/09/16 at 18:30 Glucose (Glutose) 15 gm Q15M PRN BUCCAL DECREASED GLUCOSE; Start 07/09/16 at 18 :30 Aspirin (Halfprin) 81 mg DAILY PO Last administered on 08/01/16 08:22; Admin Dose 81 MG; Start 07/10/16 at 09:00 Atorvastatin Calcium (Lipitor) 80 mg QHS PO Last administered on 07/31/16 20: 54; Admin Dose 80 MG; Start 07/10/16 at 21:00 Clonidine (Catapres) 0.1 mg Q6 PO Last administered on 08/01/16 05:48; Admin Dose 0.1 MG; Start 07/10/16 at 12:00 Isosorbide Mononitrate (Imdur) 60 mg DAILY PO Last administered on 08/01/16 08 :24; Admin Dose 60 MG; Start 07/10/16 at 10:00 Lactobacillus Acidoph/Bulgaricus (Floranex) 1 tab TID PO Last administered on 12:06; Admin Dose 1 TAB; Start 07/10/16 at 09:00 Metoprolol Succinate (Toprol Xl) 50 mg BID PO Last administered on 08/01/16 08 :23; Admin Dose 50 MG; Start 07/10/16 at 10:00 Prasugrel (Effient) 10 mg DAILY PO Last administered on 08/01/16 08:20; Admin Dose 10 MG; Start 07/10/16 at 10:30 Acetaminophen (Tylenol Tab) 500 mg Q4H PRN PO PAIN AND OR ELEVATED TEMP Last administered on 07/30/16 20:06; Admin Dose 500 MG; Start 07/10/16 at 09:00 Cholestyramine Resin (Questran Light) 4 gm BID PO Last administered on 08:11; Admin Dose 4 GM; Start 07/11/16 at 09:00 Pantoprazole (Protonix Tab) 40 mg DAILY@06 PO Last administered on 08/01/16 05 :47; Admin Dose 40 MG; Start 07/16/16 at 06:00 Calcitriol (Rocaltrol) 0.5 mcg DAILY PO Last administered on 08/01/16 08:20; Admin Dose 0.5 MCG; Start 07/24/16 at 10:00 Ondansetron HCl (Zofran Inj) 4 mg Q4H PRN IV NAUSEA AND/OR VOMITING; Start 03/31 at 16:00 Hydromorphone HCl (Dilaudid) 2 mg Q3H PRN IV PAIN Last administered on 14:19; Admin Dose 2 MG; Start 07/27/16 at 23:30 Apixaban (Eliquis) 2.5 mg BID PO Last administered on 08/01/16 08:21; Admin Dose 2.5 MG; Start 07/30/16 at 21:00 Gabapentin (Neurontin) 800 mg TID PO Last administered on 08/01/16 12:06; Admin Dose 800 MG; Start 07/31/16 at 21:00 Insulin Detemir (Levemir) 15 unit DAILY SC Last administered on 08/01/16 08:30 ; Admin Dose 15 UNIT; Start 08/01/16 at 09:00 Assessment/Plan Chief Complaint/Hosp Course Ass 1. Leg pain. Neuropathic in part, responding to Gabapentin. 2. Marked peripheral arterial disease. 3. Possible right lumbar radiculopathy, long standing 4. Renal Failure 5. Diabetis Mellitus 6. Right common femoral vein DVT 7. S/p repair of pseudoaneurism right groin. Rec. Continue Gabapentin at night to 800 mg tid. Increase ambulation as tolerated. Problems: ENMA GRAHAM MD Aug 01, 2016 14:40
[2016-08-01] MEDS: DEXTROSE 50% 50 ML SYRINGE IV PRN (16:05)
--- NOTE | 2016-08-01 16:15 | CONS ---
Date/Time of Note Date/Time of Note DATE: 08/01/16 TIME: 16:14 Assessment/Plan Assessment/Plan Additional Assessment/Plan IMPRESSION: 1. Diarrhea. 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 Improved after Questran restarted. C. Diff negative.better 2. Diabetes mellitus. 3. Renal failure. 4. Coronary artery disease. 5. Hypertension. 6.pain lower extremity, 7.rt common femoral artery pseudo aneurysm,rt FV dvt 7.left lower extremity angioplasty and stenting 9.scrotal swelling Plan continue Questran pain management vascular intervention as per vascular surgeon antibiotics as per ID Consultation Date/Type/Reason Admit Date/Time Jul 11, 2016 at 12:19 Type of Consultation: Rheum 24 HR Interval Summary Free Text/Dictation pain rt. leg no diarrhea Exam/Review of Systems Vital Signs Vitals Vital Signs Date Time Temp Pulse Resp B/P Pulse Ox O2 Delivery O2 Flow Rate FiO2 08/01/16 07:29 98.1 80 18 115/56 94 07/29/16 18:00 Room Air 07/29/16 03:00 2.0 Intake and Output 07/31/16 07/31/16 08/01/16 15:00 23:00 07:00 Intake Total 500 ml 1070 ml 360 ml Output Total 3500 ml 200 ml Balance -3000 ml 870 ml 360 ml Exam Constitutional: alert, oriented, well developed Psych: nl mood/affect, no complaints Head: atraumatic, normocephalic Eyes: EOMI, PERRL, nl conjunctiva, nl lids, nl sclera ENMT: nl external ears & nose, nl lips & teeth, nl nasal mucosa & septum Neck: non-tender, supple Respiratory: clear to auscultation, normal air movement Cardiovascular: nl pulses, regular rate and rhythm Gastrointestinal: nl liver, spleen, non-tender, soft Musculoskeletal: nl extremities to inspection, nl gait and stance Extremities: normal pulses 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, nl mental status, nl speech, nl strength Skin: nl turgor, No rash or lesions Lymph: nl lymph nodes Results Result Diagram: 08/01/1652108/01/16521 Results 24 hrs Laboratory Tests Test 07/31/16 16:44 07/31/16 20:48 08/01/16 05:22 08/01/16 08:12 Bedside Glucose 103 296 H 399 H Alanine Aminotransferase (ALT/SGPT) 47 Albumin 3.4 Albumin/Globulin Ratio 1.17 Alkaline Phosphatase 194 H Anion Gap 22 H Aspartate Amino Transf (AST/SGOT) 30 Basophils # 0.0 Basophils % 0.4 Blood Morphology Comment Blood Urea Nitrogen 42 #H Calcium Level 8.2 L Carbon Dioxide Level 22 Chloride Level 95 L Creatinine 7.10 H Direct Bilirubin 0.00 Eosinophils # 0.6 H Eosinophils % 9.7 H Globulin 2.90 Glucose Level 338 H Hematocrit 28.3 L Hemoglobin 9.6 L Indirect Bilirubin 0.2 Lymphocytes # 0.8 Lymphocytes % 12.3 L Mean Corpuscular Hemoglobin 30.7 Mean Corpuscular Hemoglobin Concent 33.9 Mean Corpuscular Volume 90.7 Mean Platelet Volume 9.8 Monocytes # 0.7 Monocytes % 11.3 H Neutrophils # 4.1 Neutrophils % 66.3 Nucleated Red Blood Cells # 0.0 Nucleated Red Blood Cells % 0.0 Platelet Count 200 Potassium Level 4.7 Random Vancomycin Level 16.9 Red Blood Count 3.13 L Red Cell Distribution Width 16.1 H Sodium Level 134 L Total Bilirubin 0.2 Total Protein 6.3 White Blood Count 6.2 Test 08/01/16 10:24 08/01/16 12:00 08/01/16 14:21 Bedside Glucose 443 *H 265 H 131 Medications Medications Current Medications Diphenhydramine HCl (Benadryl) 50 mg Q6H PRN IV ITCHING Last administered on 05:00; Admin Dose 50 MG; Start 07/09/16 at 17:00 Miscellaneous Information 1 ea NOTE XX ; Start 07/09/16 at 18:30 Glucose (Glutose) 15 gm Q15M PRN PO DECREASED GLUCOSE; Start 07/09/16 at 18:30 Glucose (Glutose) 22.5 gm Q15M PRN PO DECREASED GLUCOSE; Start 07/09/16 at 18: 30 Dextrose (D50w Syringe) 25 ml Q15M PRN IV DECREASED GLUCOSE Last administered on 08/01/16 16:05; Admin Dose 25 ML; Start 07/09/16 at 18:30 Dextrose (D50w Syringe) 50 ml Q15M PRN IV DECREASED GLUCOSE Last administered on 07/19/16 20:58; Admin Dose 50 ML; Start 07/09/16 at 18:30 Glucagon (Glucagen) 1 mg Q15M PRN IM DECREASED GLUCOSE; Start 07/09/16 at 18:30 Glucose (Glutose) 15 gm Q15M PRN BUCCAL DECREASED GLUCOSE; Start 07/09/16 at 18 :30 Aspirin (Halfprin) 81 mg DAILY PO Last administered on 08/01/16 08:22; Admin Dose 81 MG; Start 07/10/16 at 09:00 Atorvastatin Calcium (Lipitor) 80 mg QHS PO Last administered on 07/31/16 20: 54; Admin Dose 80 MG; Start 07/10/16 at 21:00 Clonidine (Catapres) 0.1 mg Q6 PO Last administered on 08/01/16 05:48; Admin Dose 0.1 MG; Start 07/10/16 at 12:00 Isosorbide Mononitrate (Imdur) 60 mg DAILY PO Last administered on 08/01/16 08 :24; Admin Dose 60 MG; Start 07/10/16 at 10:00 Lactobacillus Acidoph/Bulgaricus (Floranex) 1 tab TID PO Last administered on 12:06; Admin Dose 1 TAB; Start 07/10/16 at 09:00 Metoprolol Succinate (Toprol Xl) 50 mg BID PO Last administered on 08/01/16 08 :23; Admin Dose 50 MG; Start 07/10/16 at 10:00 Prasugrel (Effient) 10 mg DAILY PO Last administered on 08/01/16 08:20; Admin Dose 10 MG; Start 07/10/16 at 10:30 Acetaminophen (Tylenol Tab) 500 mg Q4H PRN PO PAIN AND OR ELEVATED TEMP Last administered on 07/30/16 20:06; Admin Dose 500 MG; Start 07/10/16 at 09:00 Cholestyramine Resin (Questran Light) 4 gm BID PO Last administered on 08:11; Admin Dose 4 GM; Start 07/11/16 at 09:00 Pantoprazole (Protonix Tab) 40 mg DAILY@06 PO Last administered on 08/01/16 05 :47; Admin Dose 40 MG; Start 07/16/16 at 06:00 Calcitriol (Rocaltrol) 0.5 mcg DAILY PO Last administered on 08/01/16 08:20; Admin Dose 0.5 MCG; Start 07/24/16 at 10:00 Ondansetron HCl (Zofran Inj) 4 mg Q4H PRN IV NAUSEA AND/OR VOMITING; Start 03/31 at 16:00 Hydromorphone HCl (Dilaudid) 2 mg Q3H PRN IV PAIN Last administered on 14:19; Admin Dose 2 MG; Start 07/27/16 at 23:30 Apixaban (Eliquis) 2.5 mg BID PO Last administered on 08/01/16 08:21; Admin Dose 2.5 MG; Start 07/30/16 at 21:00 Gabapentin (Neurontin) 800 mg TID PO Last administered on 08/01/16 12:06; Admin Dose 800 MG; Start 07/31/16 at 21:00 Insulin Detemir 15 unit 15 unit DAILY SC Last administered on 08/01/16 08:30; Admin Dose 15 UNIT; Start 08/01/16 at 09:00 Vancomycin HCl (Vancocin) 250 ml @ 125 mls/hr Q96H IVPB ; Start 08/01/16 at 18: 00 NIYAH REED MD Aug 01, 2016 16:15
--- NOTE | 2016-08-01 17:03 | PN ---
DATE: 08/01/2016 SUBJECTIVE: Scrotal edema following surgery on his right common femoral artery. The patient feels better. The edema has decreased, but the scrotum still a little erythematous. OBJECTIVE: VITAL SIGNS: Temperature 98.1, pulse 80, respirations 18, blood pressure 115/ 56. ABDOMEN: Soft. GENITOURINARY: The penis is normal. Scrotum has less edema, but still erythematous. LABORATORY DATA: CBC shows a white count of 6.2, hemoglobin 9.6, hematocrit 28.3. IMPRESSION: Scrotal edema secondary to the surgery in the right groin and right lower quadrant area. RECOMMENDATION: Just to elevate the scrotum, and there is no evidence of scrotal cellulitis or Fred gangrene. Dictated By: TRISH SABA/SERGO Conf#: [id number] DID#: [id number]
[2016-08-01] MEDS ORDERED: VANCOMYCIN 1 GM in NS 250 ML IVPB SCH (18:00)
--- NOTE | 2016-08-01 19:37 | PN ---
Date/Time of Note Date/Time of Note DATE: 08/01/16 TIME: 19:34 Assessment/Plan VTE Prophylaxis VTE Prophylaxis Intervention: SCD's Lines/Catheters [facility] Portacath Urinary Cath still in place: No Assessment/Plan Chief Complaint/Hosp Course ASSESSMENT AND PLAN: 1. Diarrhea with recent history of Clostridium difficile colitis, resolved. Dr. Gomez is following in gastroenterology consultation 2. Dehydration secondary to diarrhea with recent history of Clostridium difficile colitis. Stool for C. difficile is negative. 3. Type 1 diabetes mellitus with diabetic nephropathy. Continue NovoLog per insulin pump. Dr. Haddad is following an endocrinology consultation. 4. End-stage renal disease, hemodialysis dependent. Dr. Hubbard is following the patient in nephrology consultation. Continue dialysis per nephrology. 5. Coronary artery disease. Continue Imdur and metoprolol. 6. Hypertension. 7. Bilateral lower extremities pain. Dr. Orosco is following and rheumatology consultation. 8. Lateral lower extremities atherosclerosis and left lower extremity disabling claudication. is following in vascular surgery consultation. S/P angio with LLE SFA severe stenosis. S/p Left femoral popliteal stenting on 07-25, s/p Exploration of right common femoral artery and control of bleeding on 07-27. Started on Eliquis, follow-up vascular surgery recommendations. 9. Scrotal edema. Dr. Pagan is following in urology consultation. Continue heparin for deep venous thrombosis prophylaxis and Pepcid for peptic ulcer disease prophylaxis. Further recommendations based on clinical course. Plan of care discussed with Dr. Rosales. Problems: Subjective 24 Hr Interval Summary Free Text/Dictation Patient was fluctuation in blood sugar today, pain is well controlled, no nausea vomiting diarrhea. Exam/Review of Systems Vital Signs Vitals Vital Signs Date Time Temp Pulse Resp B/P Pulse Ox O2 Delivery O2 Flow Rate FiO2 08/01/16 07:29 98.1 80 18 115/56 94 07/29/16 18:00 Room Air 07/29/16 03:00 2.0 Intake and Output 07/31/16 07/31/16 08/01/16 15:00 23:00 07:00 Intake Total 500 ml 1070 ml 360 ml Output Total 3500 ml 200 ml Balance -3000 ml 870 ml 360 ml Exam GENERAL: Well-developed, well-nourished male, currently appears pale, awake, alert. HEENT: The patient has right eye prosthesis. Left pupil is equal, round, reactive to light and accommodation. NECK: Supple. No cervical lymphadenopathy, no thyromegaly. CHEST: Lungs clear bilaterally. There are no rhonchi, wheezes, rales noted. CARDIOVASCULAR: Normal S1, S2. No murmurs, gallops, clicks, rubs noted. ABDOMEN: Flat, soft, nondistended. The patient has generalized tenderness to epigastric tenderness on palpation. No guarding. EXTREMITIES: No edema, clubbing, cyanosis. Left upper extremity AV graft with a palpable thrill and audible bruit. Right lower extremity status post surgical intervention. SKIN: No rash, petechiae noted. NEUROLOGIC: The patient is awake, alert, and oriented x3. Results Result Diagram: 08/01/1652108/01/16521 Results 24 hrs Laboratory Tests Test 07/31/16 20:48 08/01/16 05:22 08/01/16 08:12 08/01/16 10:24 Bedside Glucose 296 H 399 H 443 *H Alanine Aminotransferase (ALT/SGPT) 47 Albumin 3.4 Albumin/Globulin Ratio 1.17 Alkaline Phosphatase 194 H Anion Gap 22 H Aspartate Amino Transf (AST/SGOT) 30 Basophils # 0.0 Basophils % 0.4 Blood Morphology Comment Blood Urea Nitrogen 42 #H Calcium Level 8.2 L Carbon Dioxide Level 22 Chloride Level 95 L Creatinine 7.10 H Direct Bilirubin 0.00 Eosinophils # 0.6 H Eosinophils % 9.7 H Globulin 2.90 Glucose Level 338 H Hematocrit 28.3 L Hemoglobin 9.6 L Indirect Bilirubin 0.2 Lymphocytes # 0.8 Lymphocytes % 12.3 L Mean Corpuscular Hemoglobin 30.7 Mean Corpuscular Hemoglobin Concent 33.9 Mean Corpuscular Volume 90.7 Mean Platelet Volume 9.8 Monocytes # 0.7 Monocytes % 11.3 H Neutrophils # 4.1 Neutrophils % 66.3 Nucleated Red Blood Cells # 0.0 Nucleated Red Blood Cells % 0.0 Platelet Count 200 Potassium Level 4.7 Random Vancomycin Level 16.9 Red Blood Count 3.13 L Red Cell Distribution Width 16.1 H Sodium Level 134 L Total Bilirubin 0.2 Total Protein 6.3 White Blood Count 6.2 Test 08/01/16 12:00 08/01/16 14:21 08/01/16 15:58 08/01/16 16:27 Bedside Glucose 265 H 131 47 *L 90 Test 08/01/16 17:18 Bedside Glucose 95 Medications Medications Current Medications Diphenhydramine HCl (Benadryl) 50 mg Q6H PRN IV ITCHING Last administered on 17:26; Admin Dose 50 MG; Start 07/09/16 at 17:00 Miscellaneous Information 1 ea NOTE XX ; Start 07/09/16 at 18:30 Glucose (Glutose) 15 gm Q15M PRN PO DECREASED GLUCOSE; Start 07/09/16 at 18:30 Glucose (Glutose) 22.5 gm Q15M PRN PO DECREASED GLUCOSE; Start 07/09/16 at 18: 30 Dextrose (D50w Syringe) 25 ml Q15M PRN IV DECREASED GLUCOSE Last administered on 08/01/16 16:05; Admin Dose 25 ML; Start 07/09/16 at 18:30 Dextrose (D50w Syringe) 50 ml Q15M PRN IV DECREASED GLUCOSE Last administered on 07/19/16 20:58; Admin Dose 50 ML; Start 07/09/16 at 18:30 Glucagon (Glucagen) 1 mg Q15M PRN IM DECREASED GLUCOSE; Start 07/09/16 at 18:30 Glucose (Glutose) 15 gm Q15M PRN BUCCAL DECREASED GLUCOSE; Start 07/09/16 at 18 :30 Aspirin (Halfprin) 81 mg DAILY PO Last administered on 08/01/16 08:22; Admin Dose 81 MG; Start 07/10/16 at 09:00 Atorvastatin Calcium (Lipitor) 80 mg QHS PO Last administered on 07/31/16 20: 54; Admin Dose 80 MG; Start 07/10/16 at 21:00 Clonidine (Catapres) 0.1 mg Q6 PO Last administered on 08/01/16 17:22; Admin Dose 0.1 MG; Start 07/10/16 at 12:00 Isosorbide Mononitrate (Imdur) 60 mg DAILY PO Last administered on 08/01/16 08 :24; Admin Dose 60 MG; Start 07/10/16 at 10:00 Lactobacillus Acidoph/Bulgaricus (Floranex) 1 tab TID PO Last administered on 12:06; Admin Dose 1 TAB; Start 07/10/16 at 09:00 Metoprolol Succinate (Toprol Xl) 50 mg BID PO Last administered on 08/01/16 08 :23; Admin Dose 50 MG; Start 07/10/16 at 10:00 Prasugrel (Effient) 10 mg DAILY PO Last administered on 08/01/16 08:20; Admin Dose 10 MG; Start 07/10/16 at 10:30 Acetaminophen (Tylenol Tab) 500 mg Q4H PRN PO PAIN AND OR ELEVATED TEMP Last administered on 07/30/16 20:06; Admin Dose 500 MG; Start 07/10/16 at 09:00 Cholestyramine Resin (Questran Light) 4 gm BID PO Last administered on 08:11; Admin Dose 4 GM; Start 07/11/16 at 09:00 Pantoprazole (Protonix Tab) 40 mg DAILY@06 PO Last administered on 08/01/16 05 :47; Admin Dose 40 MG; Start 07/16/16 at 06:00 Calcitriol (Rocaltrol) 0.5 mcg DAILY PO Last administered on 08/01/16 08:20; Admin Dose 0.5 MCG; Start 07/24/16 at 10:00 Ondansetron HCl (Zofran Inj) 4 mg Q4H PRN IV NAUSEA AND/OR VOMITING; Start 03/31 at 16:00 Hydromorphone HCl (Dilaudid) 2 mg Q3H PRN IV PAIN Last administered on 17:15; Admin Dose 2 MG; Start 07/27/16 at 23:30 Apixaban (Eliquis) 2.5 mg BID PO Last administered on 08/01/16 08:21; Admin Dose 2.5 MG; Start 07/30/16 at 21:00 Gabapentin (Neurontin) 800 mg TID PO Last administered on 08/01/16 12:06; Admin Dose 800 MG; Start 07/31/16 at 21:00 Insulin Detemir 15 unit 15 unit DAILY SC Last administered on 08/01/16 08:30; Admin Dose 15 UNIT; Start 08/01/16 at 09:00 Vancomycin HCl (Vancocin) 250 ml @ 125 mls/hr Q96H IVPB Last administered on 2 /17/17at 17:21; Admin Dose 125 MLS/HR; Start 08/01/16 at 18:00 ANGELINA CASTREJON Aug 01, 2016 19:37
[2016-08-01 19:49] VITALS: BP 128/71; RESP 20
[2016-08-01] MEDS: ATORVASTATIN 80 MG TAB PO SCH (20:00)
[2016-08-01] MEDS ORDERED: INSULIN ASPART [NOVOLOG] 3 ML PEN SC ONE (20:30)
[2016-08-02] VITALS (10 sets, daily range): BP systolic 100–145; BP diastolic 60–83; PULSE 66–79; RESP 16–18
[2016-08-02] MEDS: HYDROmorphONE 2 MG/ML SYG IV PRN ×7 (02:00→21:01)
[2016-08-02] MEDS: DIPHENHYDRAMINE 50 MG INJ IV PRN ×2 (05:00→15:01)
[2016-08-02] MEDS: PANTOPRAZOLE (EC) 40 MG TAB PO SCH (05:12)
[2016-08-02 07:05] LABS: POTASSIUM 5.2 mmol/L (3.5-5.1)
[2016-08-02 07:07] LABS: BILIRUBIN,INDIRECT 0.2 mg/dl (0-1.1); BILIRUBIN,TOTAL 0.2 mg/dl (0.2-1.3); CREATININE 8.76 mg/dl (0.61-1.24); TOTAL PROTEIN 5.7 g/dl (6.1-8.1)
[2016-08-02 07:08] LABS: CALCIUM 7.9 mg/dl (8.4-10.2)
[2016-08-02 07:19] LABS: ALBUMIN/GLOBULIN RATIO 1.11
[2016-08-02] MEDS: APIXABAN 5 MG TABLET PO SCH ×2 (08:03→21:06)
[2016-08-02] MEDS: LACTOBACILLUS CHEW TAB PO SCH ×3 (08:04→21:11)
[2016-08-02] MEDS: GABAPENTIN 400 MG CAP PO SCH ×3 (08:04→21:07)
[2016-08-02] MEDS: PRASUGREL HYDROCHLORIDE 10 MG TABLET PO SCH (08:04)
[2016-08-02] MEDS: SEVELAMER 800 MG TAB PO SCH ×3 (08:04→18:01)
[2016-08-02] MEDS: CALCIUM ACETATE 667 MG CAP PO SCH ×3 (08:05→18:01)
[2016-08-02] MEDS: CALCITRIOL 0.25 MCG CAP PO SCH (08:05)
[2016-08-02] MEDS: ASPIRIN (EC) 81 MG TAB PO SCH (08:06)
[2016-08-02] MEDS: CHOLESTYRAMINE (LIGHT) 4 GM PACKET PO SCH ×2 (08:06→21:07)
[2016-08-02] MEDS: ISOSORBIDE MONONITRATE(SR)60 MG TAB PO SCH (08:06)
[2016-08-02] MEDS: METOPROLOL (XL) 50 MG TAB PO SCH ×2 (08:07→21:07)
[2016-08-02] MEDS: INSULIN ASPART [NOVOLOG] 3 ML PEN SC SCH ×7 (08:25→21:00)
[2016-08-02] MEDS: ACCUCHECK XX SCH ×4 (08:27→21:00)
[2016-08-02] MEDS: LORAZEPAM 2 MG INJ IV SCH (08:42)
[2016-08-02] MEDS: DIPHENHYDRAMINE 50 MG INJ IV SCH (08:42)
--- NOTE | 2016-08-02 08:57 | PN ---
Date/Time of Note Date/Time of Note DATE: 08/02/16 TIME: 08:56 Assessment/Plan VTE Prophylaxis VTE Prophylaxis Intervention: other Lines/Catheters IV [facility]from [facility] brian cath Urinary Cath still in place: No Assessment/Plan Chief Complaint/Hosp Course 1. Diarrhea with recent history of Clostridium difficile colitis, resolved. Dr. Gomez is following in gastroenterology consultation 2. Dehydration secondary to diarrhea with recent history of Clostridium difficile colitis. Stool for C. difficile is negative. 3. Type 1 diabetes mellitus with diabetic nephropathy. Continue NovoLog per insulin pump. Dr. Haddad is following an endocrinology consultation. 4. End-stage renal disease, hemodialysis dependent. Dr. Hubbard is following the patient in nephrology consultation. Continue dialysis per nephrology. 5. Coronary artery disease. Continue Imdur and metoprolol. 6. Hypertension. 7. Bilateral lower extremities pain. Dr. Orosco is following and rheumatology consultation. 8. Lateral lower extremities atherosclerosis and left lower extremity disabling claudication. is following in vascular surgery consultation. S/P angio with LLE SFA severe stenosis. S/p Left femoral popliteal stenting on 07-25, s/p Exploration of right common femoral artery and control of bleeding on 07-27. Started on Eliquis, follow-up vascular surgery recommendations. 9. Scrotal edema. Dr. Pagan is following in urology consultation. Problems: Subjective 24 Hr Interval Summary Free Text/Dictation Patient has no complaints, is currently receiving hemodialysis Exam/Review of Systems Vital Signs Vitals Vital Signs Date Time Temp Pulse Resp B/P Pulse Ox O2 Delivery O2 Flow Rate FiO2 08/02/16 07:53 98.3 77 18 143/67 96 07/29/16 18:00 Room Air Intake and Output 08/01/16 08/01/16 08/02/16 15:00 23:00 07:00 Intake Total 250 ml 600 ml Output Total 200 ml Balance 250 ml 400 ml Exam Constitutional: well developed Head: atraumatic, normocephalic Respiratory: clear to auscultation Cardiovascular: regular rate and rhythm Gastrointestinal: non-tender, soft Results Result Diagram: 08/01/16 0522 08/02/16 0450 Results 24 hrs Laboratory Tests Test 08/01/16 10:24 08/01/16 12:00 08/01/16 14:21 08/01/16 15:58 Bedside Glucose 443 *H 265 H 131 47 *L Test 08/01/16 16:27 08/01/16 17:18 08/01/16 20:05 08/01/16 21:07 Bedside Glucose 90 95 533 *H 284 H Test 08/01/16 23:03 08/02/16 04:50 08/02/16 08:02 Bedside Glucose 225 H 541 *H Alanine Aminotransferase (ALT/SGPT) 34 Albumin 3.0 L Albumin/Globulin Ratio 1.11 Alkaline Phosphatase 200 H Anion Gap 21 H Aspartate Amino Transf (AST/SGOT) 25 Blood Urea Nitrogen 57 H Calcium Level 7.9 L Carbon Dioxide Level 21 Chloride Level 96 L Creatinine 8.76 H Direct Bilirubin 0.00 Globulin 2.70 Glucose Level 361 H Indirect Bilirubin 0.2 Magnesium Level 2.0 Potassium Level 5.2 H Sodium Level 133 L Total Bilirubin 0.2 Total Protein 5.7 L Medications Medications Current Medications Diphenhydramine HCl (Benadryl) 50 mg Q6H PRN IV ITCHING Last administered on 05:00; Admin Dose 50 MG; Start 07/09/16 at 17:00 Miscellaneous Information 1 ea NOTE XX ; Start 07/09/16 at 18:30 Glucose (Glutose) 15 gm Q15M PRN PO DECREASED GLUCOSE; Start 07/09/16 at 18:30 Glucose (Glutose) 22.5 gm Q15M PRN PO DECREASED GLUCOSE; Start 07/09/16 at 18: 30 Dextrose (D50w Syringe) 25 ml Q15M PRN IV DECREASED GLUCOSE Last administered on 08/01/16 16:05; Admin Dose 25 ML; Start 07/09/16 at 18:30 Dextrose (D50w Syringe) 50 ml Q15M PRN IV DECREASED GLUCOSE Last administered on 07/19/16 20:58; Admin Dose 50 ML; Start 07/09/16 at 18:30 Glucagon (Glucagen) 1 mg Q15M PRN IM DECREASED GLUCOSE; Start 07/09/16 at 18:30 Glucose (Glutose) 15 gm Q15M PRN BUCCAL DECREASED GLUCOSE; Start 07/09/16 at 18 :30 Aspirin (Halfprin) 81 mg DAILY PO Last administered on 08/02/16 08:06; Admin Dose 81 MG; Start 07/10/16 at 09:00 Atorvastatin Calcium (Lipitor) 80 mg QHS PO Last administered on 08/01/16 20: 00; Admin Dose 80 MG; Start 07/10/16 at 21:00 Clonidine (Catapres) 0.1 mg Q6 PO Last administered on 08/02/16 05:12; Admin Dose 0.1 MG; Start 07/10/16 at 12:00 Isosorbide Mononitrate (Imdur) 60 mg DAILY PO Last administered on 08/01/16 08 :24; Admin Dose 60 MG; Start 07/10/16 at 10:00 Lactobacillus Acidoph/Bulgaricus (Floranex) 1 tab TID PO Last administered on 08:04; Admin Dose 1 TAB; Start 07/10/16 at 09:00 Metoprolol Succinate (Toprol Xl) 50 mg BID PO Last administered on 08/01/16 20 :00; Admin Dose 50 MG; Start 07/10/16 at 10:00 Prasugrel (Effient) 10 mg DAILY PO Last administered on 08/02/16 08:04; Admin Dose 10 MG; Start 07/10/16 at 10:30 Acetaminophen (Tylenol Tab) 500 mg Q4H PRN PO PAIN AND OR ELEVATED TEMP Last administered on 07/30/16 20:06; Admin Dose 500 MG; Start 07/10/16 at 09:00 Cholestyramine Resin (Questran Light) 4 gm BID PO Last administered on 08:11; Admin Dose 4 GM; Start 07/11/16 at 09:00 Pantoprazole (Protonix Tab) 40 mg DAILY@06 PO Last administered on 08/02/16 05 :12; Admin Dose 40 MG; Start 07/16/16 at 06:00 Calcitriol (Rocaltrol) 0.5 mcg DAILY PO Last administered on 08/02/16 08:05; Admin Dose 0.5 MCG; Start 07/24/16 at 10:00 Ondansetron HCl (Zofran Inj) 4 mg Q4H PRN IV NAUSEA AND/OR VOMITING; Start 03/31 at 16:00 Hydromorphone HCl (Dilaudid) 2 mg Q3H PRN IV PAIN Last administered on 08:00; Admin Dose 2 MG; Start 07/27/16 at 23:30 Apixaban (Eliquis) 2.5 mg BID PO Last administered on 08/02/16 08:03; Admin Dose 2.5 MG; Start 07/30/16 at 21:00 Gabapentin 800 mg 800 mg TID PO Last administered on 08/02/16 08:04; Admin Dose 800 MG; Start 07/31/16 at 21:00 Vancomycin HCl (Vancocin) 250 ml @ 125 mls/hr Q96H IVPB Last administered on 17:21; Admin Dose 125 MLS/HR; Start 08/01/16 at 18:00 Insulin Detemir (Levemir) 20 unit DAILY SC Last administered on 08/02/16 08:26 ; Admin Dose 20 UNIT; Start 08/02/16 at 09:00 HSANTE SALDAÑA Aug 02, 2016 08:57
[2016-08-02] MEDS ORDERED: INSULIN DETEMIR [LEVEMIR] 3ML CART SC SCH (09:00)
--- NOTE | 2016-08-02 09:57 | PN ---
Date/Time of Note Date/Time of Note DATE: 08/02/16 TIME: 09:56 Assessment/Plan Lines/Catheters IV Catheter Type (from [facility]): brian cath Foster in Place (from [facility]): No Assessment/Plan Chief Complaint/Hosp Course -End-stage renal disease: It seems that the patient's left upper extremity fistula is functioning well. Recommend continue with his hemodialysis sessions via the fistula. Patient also had his recent Perm-A-Cath removed. From a vascular standpoint, we will continue his fistula surveillance as an outpatient. -Bilateral lower extremity atherosclerosis: S/P angio with LLE SFA severe stenosis. S/P LLE Atherectomy, Stenting and angioplasty -Patient had complain of Right groin discomfort and upon CTA of Right CORPORATE SCHEDULER there was a CORPORATE SCHEDULER pseudoaneurysm. S/P Right CORPORATE SCHEDULER exploration and repair of pseudoaneurysm -Right CFV DVT likely developed post angiogram manual compression. Continue with anticoagulation for now and eventually transition to PO regimen -Initiate D/C planning - clear from vascular for discharge -Will need PT/OT and OOB FWB -Optimize vascular status (BP meds, diet, nutrition, exercise, sugar control, antiplatelets). -Discussed findings with plan and management with the patient and he understands. -Thank you for allowing us to partake in the care of your patient. Please call with any questions. Problems: Subjective 24 Hr Interval Summary no new vascular events overnight, on HD currently Exam/Review of Systems Vital Signs Vitals Vital Signs Date Time Temp Pulse Resp B/P Pulse Ox O2 Delivery O2 Flow Rate FiO2 08/02/16 09:45 69 08/02/16 08:45 19 08/02/16 07:53 98.3 143/67 96 07/29/16 18:00 Room Air Intake and Output 08/01/16 08/01/16 08/02/16 15:00 23:00 07:00 Intake Total 250 ml 600 ml Output Total 200 ml Balance 250 ml 400 ml Exam Free Text/Dictation GENERAL: Alert and oriented x3. PULMONARY: Clear to auscultation bilaterally. CARDIOVASCULAR: S1, S2 present. ABDOMEN: Soft, nontender, nondistended. Bowel sounds positive. EXTREMITIES: Left upper extremity palpable brachial pulse. Motor, sensory intact. Capillary refill 2 to 3 seconds. Surgical scars all well healed. Fistula with bruit and thrill present Right lower extremity palpable femoral pulse, groin with prevena wound vac - removed and incision clean and dry, incisional tenderness, Dopplerable AT and PT biphasic, Motor and sensory intact. Capillary refill 3 seconds, edema resolved, Jim wrap intact and redressed Left lower extremity palpable femoral pulse, palpable pedal pulse. Motor and sensory intact. Capillary refill 2 to 3 seconds Results Result Diagram: 08/01/16 0522 08/02/16 0450 JOE BARR MD Aug 02, 2016 09:57
--- NOTE | 2016-08-02 10:19 | CONS ---
Date/Time of Note Date/Time of Note DATE: 08/02/16 TIME: 10:17 Assessment/Plan Assessment/Plan Additional Assessment/Plan 1. CKD, now being dialyzed. 2. DM, with inc CHO 3. Peripheral vasc dz, repair of right leg pseudoaneurysm and post op infection 4. Chronic elev K+, being monitored. Consultation Date/Type/Reason Admit Date/Time Jul 11, 2016 at 12:19 Initial Consult Date 07/27/16 Type of Consultation: Rheum 24 HR Interval Summary Subjective hx not possible: other (Somnolent, now on HD) Exam/Review of Systems Vital Signs Vitals Vital Signs Date Time Temp Pulse Resp B/P Pulse Ox O2 Delivery O2 Flow Rate FiO2 08/02/16 09:45 69 08/02/16 08:45 19 08/02/16 07:53 98.3 143/67 96 07/29/16 18:00 Room Air Intake and Output 08/01/16 08/01/16 08/02/16 15:00 23:00 07:00 Intake Total 250 ml 600 ml Output Total 200 ml Balance 250 ml 400 ml Exam Neck: No jvd Respiratory: clear to auscultation Cardiovascular: regular rate and rhythm Extremities: No edema Results Result Diagram: 08/01/16 0522 08/02/16 0450 Results 24 hrs Laboratory Tests Test 08/01/16 10:24 08/01/16 12:00 08/01/16 14:21 08/01/16 15:58 Bedside Glucose 443 *H 265 H 131 47 *L Test 08/01/16 16:27 08/01/16 17:18 08/01/16 20:05 08/01/16 21:07 Bedside Glucose 90 95 533 *H 284 H Test 08/01/16 23:03 08/02/16 04:50 08/02/16 08:02 Bedside Glucose 225 H 541 *H Alanine Aminotransferase (ALT/SGPT) 34 Albumin 3.0 L Albumin/Globulin Ratio 1.11 Alkaline Phosphatase 200 H Anion Gap 21 H Aspartate Amino Transf (AST/SGOT) 25 Blood Urea Nitrogen 57 H Calcium Level 7.9 L Carbon Dioxide Level 21 Chloride Level 96 L Creatinine 8.76 H Direct Bilirubin 0.00 Globulin 2.70 Glucose Level 361 H Indirect Bilirubin 0.2 Magnesium Level 2.0 Potassium Level 5.2 H Sodium Level 133 L Total Bilirubin 0.2 Total Protein 5.7 L Medications Medications Current Medications Diphenhydramine HCl (Benadryl) 50 mg Q6H PRN IV ITCHING Last administered on 05:00; Admin Dose 50 MG; Start 07/09/16 at 17:00 Miscellaneous Information 1 ea NOTE XX ; Start 07/09/16 at 18:30 Glucose (Glutose) 15 gm Q15M PRN PO DECREASED GLUCOSE; Start 07/09/16 at 18:30 Glucose (Glutose) 22.5 gm Q15M PRN PO DECREASED GLUCOSE; Start 07/09/16 at 18: 30 Dextrose (D50w Syringe) 25 ml Q15M PRN IV DECREASED GLUCOSE Last administered on 08/01/16 16:05; Admin Dose 25 ML; Start 07/09/16 at 18:30 Dextrose (D50w Syringe) 50 ml Q15M PRN IV DECREASED GLUCOSE Last administered on 07/19/16 20:58; Admin Dose 50 ML; Start 07/09/16 at 18:30 Glucagon (Glucagen) 1 mg Q15M PRN IM DECREASED GLUCOSE; Start 07/09/16 at 18:30 Glucose (Glutose) 15 gm Q15M PRN BUCCAL DECREASED GLUCOSE; Start 07/09/16 at 18 :30 Aspirin (Halfprin) 81 mg DAILY PO Last administered on 08/02/16 08:06; Admin Dose 81 MG; Start 07/10/16 at 09:00 Atorvastatin Calcium (Lipitor) 80 mg QHS PO Last administered on 08/01/16 20: 00; Admin Dose 80 MG; Start 07/10/16 at 21:00 Clonidine (Catapres) 0.1 mg Q6 PO Last administered on 08/02/16 05:12; Admin Dose 0.1 MG; Start 07/10/16 at 12:00 Isosorbide Mononitrate (Imdur) 60 mg DAILY PO Last administered on 08/01/16 08 :24; Admin Dose 60 MG; Start 07/10/16 at 10:00 Lactobacillus Acidoph/Bulgaricus (Floranex) 1 tab TID PO Last administered on 08:04; Admin Dose 1 TAB; Start 07/10/16 at 09:00 Metoprolol Succinate (Toprol Xl) 50 mg BID PO Last administered on 08/01/16 20 :00; Admin Dose 50 MG; Start 07/10/16 at 10:00 Prasugrel (Effient) 10 mg DAILY PO Last administered on 08/02/16 08:04; Admin Dose 10 MG; Start 07/10/16 at 10:30 Acetaminophen (Tylenol Tab) 500 mg Q4H PRN PO PAIN AND OR ELEVATED TEMP Last administered on 07/30/16 20:06; Admin Dose 500 MG; Start 07/10/16 at 09:00 Cholestyramine Resin (Questran Light) 4 gm BID PO Last administered on 08:11; Admin Dose 4 GM; Start 07/11/16 at 09:00 Pantoprazole (Protonix Tab) 40 mg DAILY@06 PO Last administered on 08/02/16 05 :12; Admin Dose 40 MG; Start 07/16/16 at 06:00 Calcitriol (Rocaltrol) 0.5 mcg DAILY PO Last administered on 08/02/16 08:05; Admin Dose 0.5 MCG; Start 07/24/16 at 10:00 Ondansetron HCl (Zofran Inj) 4 mg Q4H PRN IV NAUSEA AND/OR VOMITING; Start 03/31 at 16:00 Hydromorphone HCl (Dilaudid) 2 mg Q3H PRN IV PAIN Last administered on 08:00; Admin Dose 2 MG; Start 07/27/16 at 23:30 Apixaban (Eliquis) 2.5 mg BID PO Last administered on 08/02/16 08:03; Admin Dose 2.5 MG; Start 07/30/16 at 21:00 Gabapentin 800 mg 800 mg TID PO Last administered on 08/02/16 08:04; Admin Dose 800 MG; Start 07/31/16 at 21:00 Vancomycin HCl (Vancocin) 250 ml @ 125 mls/hr Q96H IVPB Last administered on 17:21; Admin Dose 125 MLS/HR; Start 08/01/16 at 18:00 Insulin Detemir (Levemir) 20 unit DAILY SC Last administered on 08/02/16 08:26 ; Admin Dose 20 UNIT; Start 08/02/16 at 09:00 MANE LESLIE MD Aug 02, 2016 10:19
--- NOTE | 2016-08-02 11:42 | PN ---
DATE: 08/02/2016 SUBJECTIVE: The patient has scrotal edema and erythema. The patient right now is sleeping and he i s getting dialyzed, and he did get some medications prior to the dialysis and that is why he is slee ping. OBJECTIVE: VITAL SIGNS: He is afebrile, temperature is 98.3 and the pulse is 66, blood pressure is 143/67. ABDOMEN: Soft. GENITOURINARY: The scrotum: The edema and the erythema have decreased from before and it is almost back to normal size. LABORATORY DATA: CBC shows a white count of 6.2, hemoglobin 9.6, hematocrit 28.3. PLAN: So for the present urology mcdonald, just keep the scrotum elevated and there is no need for any additional intervention. Dictated By: TRISH SABA/SERGO Conf#: [id number] DID#: [id number]
[2016-08-02] MEDS: PATIROMER CALCIUM SORBITEX 16.8 GM PKT PO SCH (12:48)
--- NOTE | 2016-08-02 14:32 | CONS ---
Date/Time of Note Date/Time of Note DATE: 08/02/16 TIME: 14:31 Assessment/Plan Assessment/Plan Chief Complaint/Hosp Course SUBJECTIVE: The patient is alert, lying comfortably in bed, feels much better. No fevers. ANTIMICROBIALS: Vancomycin. INDWELLINGS: Left upper extremity AV graft, left chest Port-A-Cath MICROBIOLOGY: Cultures have been negative. PHYSICAL EXAMINATION: GENERAL: Chronically ill-appearing, middle-aged white man who is alert, in no distress. HEENT: Head atraumatic, normocephalic. Sclerae anicteric. Buccal mucosa pink. NECK: Supple, trachea midline. CHEST: Rise symmetrical. Breath sounds clear. HEART: S1, S2. ABDOMEN: Soft, bowel sounds present. EXTREMITIES: Without cyanosis. Right lower extremity Jim wrapped. SKIN: With decreased scrotal edema. ASSESSMENT: 1. Right groin scrotal cellulitis, resolving. 2. Status post right common iliac artery pseudoaneurysm repair. 3. End-stage renal disease, hemodialysis dependent. 4. History of Clostridium difficile colitis. 5. Legally blind. PLAN: The patient remains stable. Cellulitis resolving. Continue vancomycin. Continue present care, scrotal elevation. Dw pt Problems: Consultation Date/Type/Reason Admit Date/Time Jul 11, 2016 at 12:19 Initial Consult Date 07/27/16 Type of Consultation: id Exam/Review of Systems Vital Signs Vitals Vital Signs Date Time Temp Pulse Resp B/P Pulse Ox O2 Delivery O2 Flow Rate FiO2 08/02/16 12:12 74 20 08/02/16 07:53 98.3 143/67 96 07/29/16 18:00 Room Air Intake and Output 08/01/16 08/01/16 08/02/16 15:00 23:00 07:00 Intake Total 250 ml 600 ml Output Total 200 ml Balance 250 ml 400 ml Results Result Diagram: 08/01/16 0522 08/02/16 0450 Results 24 hrs Laboratory Tests Test 08/01/16 15:58 08/01/16 16:27 08/01/16 17:18 08/01/16 20:05 Bedside Glucose 47 *L 90 95 533 *H Test 08/01/16 21:07 08/01/16 23:03 08/02/16 04:50 08/02/16 08:02 Bedside Glucose 284 H 225 H 541 *H Alanine Aminotransferase (ALT/SGPT) 34 Albumin 3.0 L Albumin/Globulin Ratio 1.11 Alkaline Phosphatase 200 H Anion Gap 21 H Aspartate Amino Transf (AST/SGOT) 25 Blood Urea Nitrogen 57 H Calcium Level 7.9 L Carbon Dioxide Level 21 Chloride Level 96 L Creatinine 8.76 H Direct Bilirubin 0.00 Globulin 2.70 Glucose Level 361 H Indirect Bilirubin 0.2 Magnesium Level 2.0 Potassium Level 5.2 H Sodium Level 133 L Total Bilirubin 0.2 Total Protein 5.7 L Test 08/02/16 11:01 08/02/16 12:49 Bedside Glucose 240 H 182 Medications Medications Current Medications Diphenhydramine HCl (Benadryl) 50 mg Q6H PRN IV ITCHING Last administered on 05:00; Admin Dose 50 MG; Start 07/09/16 at 17:00 Miscellaneous Information 1 ea NOTE XX ; Start 07/09/16 at 18:30 Glucose (Glutose) 15 gm Q15M PRN PO DECREASED GLUCOSE; Start 07/09/16 at 18:30 Glucose (Glutose) 22.5 gm Q15M PRN PO DECREASED GLUCOSE; Start 07/09/16 at 18: 30 Dextrose (D50w Syringe) 25 ml Q15M PRN IV DECREASED GLUCOSE Last administered on 08/01/16 16:05; Admin Dose 25 ML; Start 07/09/16 at 18:30 Dextrose (D50w Syringe) 50 ml Q15M PRN IV DECREASED GLUCOSE Last administered on 07/19/16 20:58; Admin Dose 50 ML; Start 07/09/16 at 18:30 Glucagon (Glucagen) 1 mg Q15M PRN IM DECREASED GLUCOSE; Start 07/09/16 at 18:30 Glucose (Glutose) 15 gm Q15M PRN BUCCAL DECREASED GLUCOSE; Start 07/09/16 at 18 :30 Aspirin (Halfprin) 81 mg DAILY PO Last administered on 08/02/16 08:06; Admin Dose 81 MG; Start 07/10/16 at 09:00 Atorvastatin Calcium (Lipitor) 80 mg QHS PO Last administered on 08/01/16 20: 00; Admin Dose 80 MG; Start 07/10/16 at 21:00 Clonidine (Catapres) 0.1 mg Q6 PO Last administered on 08/02/16 05:12; Admin Dose 0.1 MG; Start 07/10/16 at 12:00 Isosorbide Mononitrate (Imdur) 60 mg DAILY PO Last administered on 08/01/16 08 :24; Admin Dose 60 MG; Start 07/10/16 at 10:00 Lactobacillus Acidoph/Bulgaricus (Floranex) 1 tab TID PO Last administered on 12:47; Admin Dose 1 TAB; Start 07/10/16 at 09:00 Metoprolol Succinate (Toprol Xl) 50 mg BID PO Last administered on 08/01/16 20 :00; Admin Dose 50 MG; Start 07/10/16 at 10:00 Prasugrel (Effient) 10 mg DAILY PO Last administered on 08/02/16 08:04; Admin Dose 10 MG; Start 07/10/16 at 10:30 Acetaminophen (Tylenol Tab) 500 mg Q4H PRN PO PAIN AND OR ELEVATED TEMP Last administered on 07/30/16 20:06; Admin Dose 500 MG; Start 07/10/16 at 09:00 Cholestyramine Resin (Questran Light) 4 gm BID PO Last administered on 08:11; Admin Dose 4 GM; Start 07/11/16 at 09:00 Pantoprazole (Protonix Tab) 40 mg DAILY@06 PO Last administered on 08/02/16 05 :12; Admin Dose 40 MG; Start 07/16/16 at 06:00 Calcitriol (Rocaltrol) 0.5 mcg DAILY PO Last administered on 08/02/16 08:05; Admin Dose 0.5 MCG; Start 07/24/16 at 10:00 Ondansetron HCl (Zofran Inj) 4 mg Q4H PRN IV NAUSEA AND/OR VOMITING; Start 03/31 at 16:00 Hydromorphone HCl (Dilaudid) 2 mg Q3H PRN IV PAIN Last administered on 12:02; Admin Dose 2 MG; Start 07/27/16 at 23:30 Apixaban (Eliquis) 2.5 mg BID PO Last administered on 08/02/16 08:03; Admin Dose 2.5 MG; Start 07/30/16 at 21:00 Gabapentin 800 mg 800 mg TID PO Last administered on 08/02/16 12:54; Admin Dose 800 MG; Start 07/31/16 at 21:00 Vancomycin HCl (Vancocin) 250 ml @ 125 mls/hr Q96H IVPB Last administered on 17:21; Admin Dose 125 MLS/HR; Start 08/01/16 at 18:00 Insulin Detemir (Levemir) 20 unit DAILY SC Last administered on 08/02/16 08:26 ; Admin Dose 20 UNIT; Start 08/02/16 at 09:00 BIJAN LONGO NP Aug 02, 2016 14:32
--- NOTE | 2016-08-02 18:55 | CONS ---
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 Off pump therapy and changed to MDI. Appears to be responding better to subcutaneous insulin. Will adjust Detemir dose upwards to decrease need for correction. Consultation Date/Type/Reason Admit Date/Time Jul 11, 2016 at 12:19 Initial Consult Date 07/29/16 Type of Consultation: id 24 HR Interval Summary Free Text/Dictation Feels a little better, but still with scrotal discomfort Exam/Review of Systems Vital Signs Vitals Vital Signs Date Time Temp Pulse Resp B/P Pulse Ox O2 Delivery O2 Flow Rate FiO2 08/02/16 12:12 74 20 08/02/16 07:53 98.3 143/67 96 07/29/16 18:00 Room Air Intake and Output 08/01/16 08/01/16 08/02/16 15:00 23:00 07:00 Intake Total 250 ml 600 ml Output Total 200 ml Balance 250 ml 400 ml Exam Constitutional: alert, oriented Neck: supple Respiratory: clear to auscultation Cardiovascular: nl pulses Gastrointestinal: soft Musculoskeletal: other (R lower extremity with AYUSH bandage.) Results POC glucose, Labs and vitals reviewed Result Diagram: 08/01/16 0522 08/02/16 0450 Results 24 hrs Laboratory Tests Test 08/01/16 20:05 08/01/16 21:07 08/01/16 23:03 08/02/16 04:50 Bedside Glucose 533 *H 284 H 225 H Alanine Aminotransferase (ALT/SGPT) 34 Albumin 3.0 L Albumin/Globulin Ratio 1.11 Alkaline Phosphatase 200 H Anion Gap 21 H Aspartate Amino Transf (AST/SGOT) 25 Blood Urea Nitrogen 57 H Calcium Level 7.9 L Carbon Dioxide Level 21 Chloride Level 96 L Creatinine 8.76 H Direct Bilirubin 0.00 Globulin 2.70 Glucose Level 361 H Indirect Bilirubin 0.2 Magnesium Level 2.0 Potassium Level 5.2 H Sodium Level 133 L Total Bilirubin 0.2 Total Protein 5.7 L Test 08/02/16 08:02 08/02/16 11:01 08/02/16 12:49 08/02/16 18:05 Bedside Glucose 541 *H 240 H 182 153 Medications Medications Current Medications Diphenhydramine HCl (Benadryl) 50 mg Q6H PRN IV ITCHING Last administered on 15:01; Admin Dose 50 MG; Start 07/09/16 at 17:00 Miscellaneous Information 1 ea NOTE XX ; Start 07/09/16 at 18:30 Glucose (Glutose) 15 gm Q15M PRN PO DECREASED GLUCOSE; Start 07/09/16 at 18:30 Glucose (Glutose) 22.5 gm Q15M PRN PO DECREASED GLUCOSE; Start 07/09/16 at 18: 30 Dextrose (D50w Syringe) 25 ml Q15M PRN IV DECREASED GLUCOSE Last administered on 08/01/16 16:05; Admin Dose 25 ML; Start 07/09/16 at 18:30 Dextrose (D50w Syringe) 50 ml Q15M PRN IV DECREASED GLUCOSE Last administered on 07/19/16 20:58; Admin Dose 50 ML; Start 07/09/16 at 18:30 Glucagon (Glucagen) 1 mg Q15M PRN IM DECREASED GLUCOSE; Start 07/09/16 at 18:30 Glucose (Glutose) 15 gm Q15M PRN BUCCAL DECREASED GLUCOSE; Start 07/09/16 at 18 :30 Aspirin (Halfprin) 81 mg DAILY PO Last administered on 08/02/16 08:06; Admin Dose 81 MG; Start 07/10/16 at 09:00 Atorvastatin Calcium (Lipitor) 80 mg QHS PO Last administered on 08/01/16 20: 00; Admin Dose 80 MG; Start 07/10/16 at 21:00 Clonidine (Catapres) 0.1 mg Q6 PO Last administered on 08/02/16 18:06; Admin Dose 0.1 MG; Start 07/10/16 at 12:00 Isosorbide Mononitrate (Imdur) 60 mg DAILY PO Last administered on 08/01/16 08 :24; Admin Dose 60 MG; Start 07/10/16 at 10:00 Lactobacillus Acidoph/Bulgaricus (Floranex) 1 tab TID PO Last administered on 12:47; Admin Dose 1 TAB; Start 07/10/16 at 09:00 Metoprolol Succinate (Toprol Xl) 50 mg BID PO Last administered on 2/17/17at 20 :00; Admin Dose 50 MG; Start 07/10/16 at 10:00 Prasugrel (Effient) 10 mg DAILY PO Last administered on 08/02/16 08:04; Admin Dose 10 MG; Start 07/10/16 at 10:30 Acetaminophen (Tylenol Tab) 500 mg Q4H PRN PO PAIN AND OR ELEVATED TEMP Last administered on 07/30/16 20:06; Admin Dose 500 MG; Start 07/10/16 at 09:00 Cholestyramine Resin (Questran Light) 4 gm BID PO Last administered on 08:11; Admin Dose 4 GM; Start 07/11/16 at 09:00 Pantoprazole (Protonix Tab) 40 mg DAILY@06 PO Last administered on 08/02/16 05 :12; Admin Dose 40 MG; Start 07/16/16 at 06:00 Calcitriol (Rocaltrol) 0.5 mcg DAILY PO Last administered on 08/02/16 08:05; Admin Dose 0.5 MCG; Start 07/24/16 at 10:00 Ondansetron HCl (Zofran Inj) 4 mg Q4H PRN IV NAUSEA AND/OR VOMITING; Start 03/31 at 16:00 Hydromorphone HCl (Dilaudid) 2 mg Q3H PRN IV PAIN Last administered on 18:01; Admin Dose 2 MG; Start 07/27/16 at 23:30 Apixaban (Eliquis) 2.5 mg BID PO Last administered on 08/02/16 08:03; Admin Dose 2.5 MG; Start 07/30/16 at 21:00 Gabapentin 800 mg 800 mg TID PO Last administered on 08/02/16 12:54; Admin Dose 800 MG; Start 07/31/16 at 21:00 Vancomycin HCl (Vancocin) 250 ml @ 125 mls/hr Q96H IVPB Last administered on 17:21; Admin Dose 125 MLS/HR; Start 08/01/16 at 18:00 Insulin Detemir (Levemir) 25 unit DAILY SC ; Start 08/03/16 at 09:00 KALPANA MARTINEZ MD Aug 02, 2016 18:55
[2016-08-02] MEDS: ATORVASTATIN 80 MG TAB PO SCH (21:07)
[2016-08-03] MEDS: HYDROmorphONE 2 MG/ML SYG IV PRN ×6 (00:05→22:29)
[2016-08-03] MEDS: DIPHENHYDRAMINE 50 MG INJ IV PRN ×3 (00:09→22:29)
[2016-08-03] MEDS: PANTOPRAZOLE (EC) 40 MG TAB PO SCH (06:10)
[2016-08-03 07:25] VITALS: BP 150/68; RESP 20
[2016-08-03] MEDS: ACCUCHECK XX SCH ×5 (08:45→20:52)
[2016-08-03] MEDS: CHOLESTYRAMINE (LIGHT) 4 GM PACKET PO SCH ×2 (08:46→20:52)
[2016-08-03] MEDS: SEVELAMER 800 MG TAB PO SCH ×3 (08:46→17:30)
[2016-08-03] MEDS: APIXABAN 5 MG TABLET PO SCH ×2 (08:46→20:50)
[2016-08-03] MEDS: LACTOBACILLUS CHEW TAB PO SCH ×3 (08:46→20:50)
[2016-08-03] MEDS: CALCIUM ACETATE 667 MG CAP PO SCH ×3 (08:46→17:31)
[2016-08-03] MEDS: PRASUGREL HYDROCHLORIDE 10 MG TABLET PO SCH (08:46)
[2016-08-03] MEDS: CALCITRIOL 0.25 MCG CAP PO SCH (08:47)
[2016-08-03] MEDS: GABAPENTIN 400 MG CAP PO SCH ×3 (08:47→20:50)
[2016-08-03] MEDS: METOPROLOL (XL) 50 MG TAB PO SCH ×2 (08:47→20:52)
[2016-08-03] MEDS: ASPIRIN (EC) 81 MG TAB PO SCH (08:48)
[2016-08-03] MEDS: ISOSORBIDE MONONITRATE(SR)60 MG TAB PO SCH (08:48)
[2016-08-03] MEDS ORDERED: INSULIN DETEMIR [LEVEMIR] 3ML CART SC SCH (09:00)
[2016-08-03] MEDS: INSULIN ASPART [NOVOLOG] 3 ML PEN SC SCH ×4 (09:13→12:48)
--- NOTE | 2016-08-03 10:39 | CONS ---
Date/Time of Note Date/Time of Note DATE: 08/03/16 TIME: 10:35 Assessment/Plan Assessment/Plan Additional Assessment/Plan 1. DVT right leg 2. Pseudoaneurysm right groin repaired with subsequent infection 3. Lethargic and sl confused, will need to monitor pain meds closely 4. CKD, next HD Consultation Date/Type/Reason Admit Date/Time Jul 11, 2016 at 12:19 Initial Consult Date 07/27/16 Type of Consultation: id Detailed Summary Respiratory: shortness of breath Cardiovascular: chest pain Gastrointestinal: no complaints Genitourinary: no complaints Musculoskeletal: other (right testicle is aching and right thigh) Neurologic: other Exam/Review of Systems Vital Signs Vitals Vital Signs Date Time Temp Pulse Resp B/P Pulse Ox O2 Delivery O2 Flow Rate FiO2 08/03/16 07:25 97.8 72 20 150/68 93 Intake and Output 08/02/16 08/02/16 08/03/16 15:00 23:00 07:00 Intake Total 500 ml 800 ml 880 ml Output Total 5500 ml 400 ml 600 ml Balance -5000 ml 400 ml 280 ml Exam Neck: No jvd Respiratory: clear to auscultation Cardiovascular: regular rate and rhythm Gastrointestinal: soft Extremities: edema (right leg is wrapped, calf is tot tender, right medial thigh is sl tender) Results Result Diagram: 08/01/16 0522 08/02/16 0450 Results 24 hrs Laboratory Tests Test 08/02/16 11:01 08/02/16 12:49 08/02/16 18:05 08/02/16 21:17 Bedside Glucose 240 H 182 153 150 Test 08/03/16 07:48 08/03/16 08:52 Bedside Glucose 463 *H 458 *H Medications Medications Current Medications Diphenhydramine HCl (Benadryl) 50 mg Q6H PRN IV ITCHING Last administered on t 00:09; Admin Dose 50 MG; Start 07/09/16 at 17:00 Miscellaneous Information 1 ea NOTE XX ; Start 07/09/16 at 18:30 Glucose (Glutose) 15 gm Q15M PRN PO DECREASED GLUCOSE; Start 07/09/16 at 18:30 Glucose (Glutose) 22.5 gm Q15M PRN PO DECREASED GLUCOSE; Start 07/09/16 at 18: 30 Dextrose (D50w Syringe) 25 ml Q15M PRN IV DECREASED GLUCOSE Last administered on 08/01/16 16:05; Admin Dose 25 ML; Start 07/09/16 at 18:30 Dextrose (D50w Syringe) 50 ml Q15M PRN IV DECREASED GLUCOSE Last administered on 07/19/16 20:58; Admin Dose 50 ML; Start 07/09/16 at 18:30 Glucagon (Glucagen) 1 mg Q15M PRN IM DECREASED GLUCOSE; Start 07/09/16 at 18:30 Glucose (Glutose) 15 gm Q15M PRN BUCCAL DECREASED GLUCOSE; Start 07/09/16 at 18 :30 Aspirin (Halfprin) 81 mg DAILY PO Last administered on 08/03/16 08:48; Admin Dose 81 MG; Start 07/10/16 at 09:00 Atorvastatin Calcium (Lipitor) 80 mg QHS PO Last administered on 08/02/16 21: 07; Admin Dose 80 MG; Start 07/10/16 at 21:00 Clonidine (Catapres) 0.1 mg Q6 PO Last administered on 08/03/16 06:11; Admin Dose 0.1 MG; Start 07/10/16 at 12:00 Isosorbide Mononitrate (Imdur) 60 mg DAILY PO Last administered on 08/03/16 08 :48; Admin Dose 60 MG; Start 07/10/16 at 10:00 Lactobacillus Acidoph/Bulgaricus (Floranex) 1 tab TID PO Last administered on 08:46; Admin Dose 1 TAB; Start 07/10/16 at 09:00 Metoprolol Succinate (Toprol Xl) 50 mg BID PO Last administered on 08/03/16 08 :47; Admin Dose 50 MG; Start 07/10/16 at 10:00 Prasugrel (Effient) 10 mg DAILY PO Last administered on 08/03/16 08:46; Admin Dose 10 MG; Start 07/10/16 at 10:30 Acetaminophen (Tylenol Tab) 500 mg Q4H PRN PO PAIN AND OR ELEVATED TEMP Last administered on 07/30/16 20:06; Admin Dose 500 MG; Start 07/10/16 at 09:00 Cholestyramine Resin (Questran Light) 4 gm BID PO Last administered on 08:46; Admin Dose 4 GM; Start 07/11/16 at 09:00 Pantoprazole (Protonix Tab) 40 mg DAILY@06 PO Last administered on 08/03/16 06 :10; Admin Dose 40 MG; Start 07/16/16 at 06:00 Calcitriol (Rocaltrol) 0.5 mcg DAILY PO Last administered on 08/03/16 08:47; Admin Dose 0.5 MCG; Start 07/24/16 at 10:00 Ondansetron HCl (Zofran Inj) 4 mg Q4H PRN IV NAUSEA AND/OR VOMITING; Start 03/31 at 16:00 Hydromorphone HCl (Dilaudid) 2 mg Q3H PRN IV PAIN Last administered on 10:19; Admin Dose 2 MG; Start 07/27/16 at 23:30 Apixaban (Eliquis) 2.5 mg BID PO Last administered on 08/03/16 08:46; Admin Dose 2.5 MG; Start 07/30/16 at 21:00 Gabapentin 800 mg 800 mg TID PO Last administered on 08/03/16 08:47; Admin Dose 800 MG; Start 07/31/16 at 21:00 Vancomycin HCl (Vancocin) 250 ml @ 125 mls/hr Q96H IVPB Last administered on 17:21; Admin Dose 125 MLS/HR; Start 08/01/16 at 18:00 Insulin Detemir (Levemir) 25 unit DAILY SC Last administered on 08/03/16 09:13 ; Admin Dose 25 UNIT; Start 08/03/16 at 09:00 MANE LESLIE MD Aug 03, 2016 10:39
--- NOTE | 2016-08-03 11:01 | PN ---
Date/Time of Note Date/Time of Note DATE: 08/03/16 TIME: 11:00 Assessment/Plan VTE Prophylaxis VTE Prophylaxis Intervention: other Lines/Catheters IV Catheter Type (from [facility]): Portacath Urinary Cath still in place: No Assessment/Plan Chief Complaint/Hosp Course 1. Diarrhea with recent history of Clostridium difficile colitis, resolved. Dr. Gomez is following in gastroenterology consultation 2. Dehydration secondary to diarrhea with recent history of Clostridium difficile colitis. Stool for C. difficile is negative. 3. Type 1 diabetes mellitus with diabetic nephropathy. Continue NovoLog per insulin pump. Dr. Haddad is following an endocrinology consultation. 4. End-stage renal disease, hemodialysis dependent. Dr. Hubbard is following the patient in nephrology consultation. Continue dialysis per nephrology. 5. Coronary artery disease. Continue Imdur and metoprolol. 6. Hypertension. 7. Bilateral lower extremities pain. Dr. Orosco is following and rheumatology consultation. 8. Lateral lower extremities atherosclerosis and left lower extremity disabling claudication. is following in vascular surgery consultation. S/P angio with LLE SFA severe stenosis. S/p Left femoral popliteal stenting on 07-25, s/p Exploration of right common femoral artery and control of bleeding on 07-27. Started on Eliquis, follow-up vascular surgery recommendations. 9. Scrotal edema. Dr. Pagan is following in urology consultation. Problems: Subjective 24 Hr Interval Summary Free Text/Dictation Patient complain of groin pain from thrombosis in the area Exam/Review of Systems Vital Signs Vitals Vital Signs Date Time Temp Pulse Resp B/P Pulse Ox O2 Delivery O2 Flow Rate FiO2 08/03/16 07:25 97.8 72 20 150/68 93 Intake and Output 08/02/16 08/02/16 08/03/16 15:00 23:00 07:00 Intake Total 500 ml 800 ml 880 ml Output Total 5500 ml 400 ml 600 ml Balance -5000 ml 400 ml 280 ml Exam Constitutional: well developed Head: atraumatic, normocephalic Neck: supple Respiratory: clear to auscultation Cardiovascular: regular rate and rhythm Gastrointestinal: non-tender, soft Results Result Diagram: 08/01/16 0522 08/02/16 0450 Results 24 hrs Laboratory Tests Test 08/02/16 11:01 08/02/16 12:49 08/02/16 18:05 08/02/16 21:17 Bedside Glucose 240 H 182 153 150 Test 08/03/16 07:48 08/03/16 08:52 Bedside Glucose 463 *H 458 *H Medications Medications Current Medications Diphenhydramine HCl (Benadryl) 50 mg Q6H PRN IV ITCHING Last administered on 00:09; Admin Dose 50 MG; Start 07/09/16 at 17:00 Miscellaneous Information 1 ea NOTE XX ; Start 07/09/16 at 18:30 Glucose (Glutose) 15 gm Q15M PRN PO DECREASED GLUCOSE; Start 07/09/16 at 18:30 Glucose (Glutose) 22.5 gm Q15M PRN PO DECREASED GLUCOSE; Start 07/09/16 at 18: 30 Dextrose (D50w Syringe) 25 ml Q15M PRN IV DECREASED GLUCOSE Last administered on 08/01/16 16:05; Admin Dose 25 ML; Start 07/09/16 at 18:30 Dextrose (D50w Syringe) 50 ml Q15M PRN IV DECREASED GLUCOSE Last administered on 07/19/16 20:58; Admin Dose 50 ML; Start 07/09/16 at 18:30 Glucagon (Glucagen) 1 mg Q15M PRN IM DECREASED GLUCOSE; Start 07/09/16 at 18:30 Glucose (Glutose) 15 gm Q15M PRN BUCCAL DECREASED GLUCOSE; Start 07/09/16 at 18 :30 Aspirin (Halfprin) 81 mg DAILY PO Last administered on 08/03/16 08:48; Admin Dose 81 MG; Start 07/10/16 at 09:00 Atorvastatin Calcium (Lipitor) 80 mg QHS PO Last administered on 08/02/16 21: 07; Admin Dose 80 MG; Start 07/10/16 at 21:00 Clonidine (Catapres) 0.1 mg Q6 PO Last administered on 08/03/16 06:11; Admin Dose 0.1 MG; Start 07/10/16 at 12:00 Isosorbide Mononitrate (Imdur) 60 mg DAILY PO Last administered on 08/03/16 08 :48; Admin Dose 60 MG; Start 07/10/16 at 10:00 Lactobacillus Acidoph/Bulgaricus (Floranex) 1 tab TID PO Last administered on 08:46; Admin Dose 1 TAB; Start 07/10/16 at 09:00 Metoprolol Succinate (Toprol Xl) 50 mg BID PO Last administered on 08/03/16 08 :47; Admin Dose 50 MG; Start 07/10/16 at 10:00 Prasugrel (Effient) 10 mg DAILY PO Last administered on 08/03/16 08:46; Admin Dose 10 MG; Start 07/10/16 at 10:30 Acetaminophen (Tylenol Tab) 500 mg Q4H PRN PO PAIN AND OR ELEVATED TEMP Last administered on 07/30/16 20:06; Admin Dose 500 MG; Start 07/10/16 at 09:00 Cholestyramine Resin (Questran Light) 4 gm BID PO Last administered on 08:46; Admin Dose 4 GM; Start 07/11/16 at 09:00 Pantoprazole (Protonix Tab) 40 mg DAILY@06 PO Last administered on 08/03/16 06 :10; Admin Dose 40 MG; Start 07/16/16 at 06:00 Calcitriol (Rocaltrol) 0.5 mcg DAILY PO Last administered on 08/03/16 08:47; Admin Dose 0.5 MCG; Start 07/24/16 at 10:00 Ondansetron HCl (Zofran Inj) 4 mg Q4H PRN IV NAUSEA AND/OR VOMITING; Start 03/31 at 16:00 Hydromorphone HCl (Dilaudid) 2 mg Q3H PRN IV PAIN Last administered on 10:19; Admin Dose 2 MG; Start 07/27/16 at 23:30 Apixaban (Eliquis) 2.5 mg BID PO Last administered on 08/03/16 08:46; Admin Dose 2.5 MG; Start 07/30/16 at 21:00 Gabapentin 800 mg 800 mg TID PO Last administered on 08/03/16 08:47; Admin Dose 800 MG; Start 07/31/16 at 21:00 Vancomycin HCl (Vancocin) 250 ml @ 125 mls/hr Q96H IVPB Last administered on 17:21; Admin Dose 125 MLS/HR; Start 08/01/16 at 18:00 Insulin Detemir (Levemir) 25 unit DAILY SC Last administered on 08/03/16t 09:13 ; Admin Dose 25 UNIT; Start 08/03/16 at 09:00 SHANTE SALDAÑA Aug 03, 2016 11:01
[2016-08-03 11:33] LABS: POTASSIUM 4.4 mmol/L (3.5-5.1)
[2016-08-03 11:35] LABS: CREATININE 7.03 mg/dl (0.61-1.24)
[2016-08-03 11:36] LABS: CALCIUM 8.5 mg/dl (8.4-10.2)
[2016-08-03] MEDS: PATIROMER CALCIUM SORBITEX 16.8 GM PKT PO SCH (12:20)
[2016-08-03] MEDS ORDERED: INSULIN LISPRO 100 UNIT/ML VIAL SC STA (13:59)
[2016-08-03] MEDS: [UNRECOGNIZED DRUG - OTHER] SC SCH (15:00)
--- NOTE | 2016-08-03 17:33 | CONS ---
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 May be increased insulin resistance versus decreased absorption due to edema. Will resume pump therapy with Humalog with an increased basal rate of 20%. Will place infusion set on leg to avoid areas on abdomen with decreased absorption potential. Patient assisted with infusion set placement. Consultation Date/Type/Reason Admit Date/Time Jul 11, 2016 at 12:19 Initial Consult Date 07/29/16 Type of Consultation: endocrine 24 HR Interval Summary Free Text/Dictation Blood glucose high. Want to re-try with pump. Exam/Review of Systems Vital Signs Vitals Vital Signs Date Time Temp Pulse Resp B/P Pulse Ox O2 Delivery O2 Flow Rate FiO2 08/03/16 07:25 97.8 72 20 150/68 93 Intake and Output 08/02/16 08/02/16 08/03/16 15:00 23:00 07:00 Intake Total 500 ml 800 ml 880 ml Output Total 5500 ml 400 ml 600 ml Balance -5000 ml 400 ml 280 ml Exam Constitutional: alert, oriented, well developed Eyes: other (legally blind prosthetic eye) Neck: supple Respiratory: clear to auscultation Cardiovascular: regular rate and rhythm Gastrointestinal: other (decreased edema), soft Musculoskeletal: other (blayne bandage Right leg) Results POC glucose labs and vitals reviewed Result Diagram: 08/01/16 0522 08/03/16 1105 Results 24 hrs Laboratory Tests Test 08/02/16 18:05 08/02/16 21:17 08/03/16 07:48 08/03/16 08:52 Bedside Glucose 153 150 463 *H 458 *H Test 08/03/16 11:05 08/03/16 11:35 08/03/16 13:41 Anion Gap 20 H Blood Urea Nitrogen 54 H Calcium Level 8.5 Carbon Dioxide Level 24 Chloride Level 96 L Creatinine 7.03 H Glucose Level 352 H Potassium Level 4.4 Sodium Level 136 Bedside Glucose 330 H 317 H Medications Medications Current Medications Diphenhydramine HCl (Benadryl) 50 mg Q6H PRN IV ITCHING Last administered on t 16:21; Admin Dose 50 MG; Start 07/09/16 at 17:00 Miscellaneous Information 1 ea NOTE XX ; Start 07/09/16 at 18:30 Glucose (Glutose) 15 gm Q15M PRN PO DECREASED GLUCOSE; Start 07/09/16 at 18:30 Glucose (Glutose) 22.5 gm Q15M PRN PO DECREASED GLUCOSE; Start 07/09/16 at 18: 30 Dextrose (D50w Syringe) 25 ml Q15M PRN IV DECREASED GLUCOSE Last administered on 08/01/16 16:05; Admin Dose 25 ML; Start 07/09/16 at 18:30 Dextrose (D50w Syringe) 50 ml Q15M PRN IV DECREASED GLUCOSE Last administered on 07/19/16 20:58; Admin Dose 50 ML; Start 07/09/16 at 18:30 Glucagon (Glucagen) 1 mg Q15M PRN IM DECREASED GLUCOSE; Start 07/09/16 at 18:30 Glucose (Glutose) 15 gm Q15M PRN BUCCAL DECREASED GLUCOSE; Start 07/09/16 at 18 :30 Aspirin (Halfprin) 81 mg DAILY PO Last administered on 08/03/16 08:48; Admin Dose 81 MG; Start 07/10/16 at 09:00 Atorvastatin Calcium (Lipitor) 80 mg QHS PO Last administered on 08/02/16 21: 07; Admin Dose 80 MG; Start 07/10/16 at 21:00 Clonidine (Catapres) 0.1 mg Q6 PO Last administered on 08/03/16 06:11; Admin Dose 0.1 MG; Start 07/10/16 at 12:00 Isosorbide Mononitrate (Imdur) 60 mg DAILY PO Last administered on 08/03/16 08 :48; Admin Dose 60 MG; Start 07/10/16 at 10:00 Lactobacillus Acidoph/Bulgaricus (Floranex) 1 tab TID PO Last administered on 12:21; Admin Dose 1 TAB; Start 07/10/16 at 09:00 Metoprolol Succinate (Toprol Xl) 50 mg BID PO Last administered on 08/03/16 08 :47; Admin Dose 50 MG; Start 07/10/16 at 10:00 Prasugrel (Effient) 10 mg DAILY PO Last administered on 08/03/16 08:46; Admin Dose 10 MG; Start 07/10/16 at 10:30 Acetaminophen (Tylenol Tab) 500 mg Q4H PRN PO PAIN AND OR ELEVATED TEMP Last administered on 07/30/16 20:06; Admin Dose 500 MG; Start 07/10/16 at 09:00 Cholestyramine Resin (Questran Light) 4 gm BID PO Last administered on 08:46; Admin Dose 4 GM; Start 07/11/16 at 09:00 Pantoprazole (Protonix Tab) 40 mg DAILY@06 PO Last administered on 08/03/16 06 :10; Admin Dose 40 MG; Start 07/16/16 at 06:00 Calcitriol (Rocaltrol) 0.5 mcg DAILY PO Last administered on 08/03/16 08:47; Admin Dose 0.5 MCG; Start 07/24/16 at 10:00 Ondansetron HCl (Zofran Inj) 4 mg Q4H PRN IV NAUSEA AND/OR VOMITING; Start 03/31 at 16:00 Hydromorphone HCl (Dilaudid) 2 mg Q3H PRN IV PAIN Last administered on 16:22; Admin Dose 2 MG; Start 07/27/16 at 23:30 Apixaban (Eliquis) 2.5 mg BID PO Last administered on 08/03/16 08:46; Admin Dose 2.5 MG; Start 07/30/16 at 21:00 Gabapentin 800 mg 800 mg TID PO Last administered on 08/03/16 12:21; Admin Dose 800 MG; Start 07/31/16 at 21:00 Vancomycin HCl (Vancocin) 250 ml @ 125 mls/hr Q96H IVPB Last administered on 17:21; Admin Dose 125 MLS/HR; Start 08/01/16 at 18:00 Non-Formulary Medication (Non-Formulary Insulin) Patient will use ... DAILY SC ; Start 08/03/16 at 15:00 KALPANA MARTINEZ MD Aug 03, 2016 17:32
--- NOTE | 2016-08-03 18:18 | CONS ---
Date/Time of Note Date/Time of Note DATE: 08/03/16 TIME: 18:17 Assessment/Plan Assessment/Plan Chief Complaint/Hosp Course SUBJECTIVE: The patient is alert, looks comfortable. No fevers. ANTIMICROBIALS: Vancomycin. INDWELLINGS: Left upper extremity AV graft, left chest Port-A-Cath MICROBIOLOGY: Cultures have been negative. PHYSICAL EXAMINATION: GENERAL: Chronically ill-appearing, middle-aged white man who is alert, in no distress. HEENT: Head atraumatic, normocephalic. Sclerae anicteric. Buccal mucosa pink. NECK: Supple, trachea midline. CHEST: Rise symmetrical. Breath sounds clear. HEART: S1, S2. ABDOMEN: Soft, bowel sounds present. EXTREMITIES: Without cyanosis. Right lower extremity Jim wrapped. SKIN: With decreased scrotal edema. ASSESSMENT: 1. Right groin scrotal cellulitis, resolving. 2. Status post right common iliac artery pseudoaneurysm repair. 3. End-stage renal disease, hemodialysis dependent. 4. History of Clostridium difficile colitis. 5. Legally blind. PLAN: The patient remains stable. Cellulitis resolving. Continue vancomycin/ scrotal elevation. Dw pt Problems: Consultation Date/Type/Reason Admit Date/Time Jul 11, 2016 at 12:19 Initial Consult Date 07/27/16 Type of Consultation: id Exam/Review of Systems Vital Signs Vitals Vital Signs Date Time Temp Pulse Resp B/P Pulse Ox O2 Delivery O2 Flow Rate FiO2 08/03/16 07:25 97.8 72 20 150/68 93 Intake and Output 08/02/16 08/02/16 08/03/16 15:00 23:00 07:00 Intake Total 500 ml 800 ml 880 ml Output Total 5500 ml 400 ml 600 ml Balance -5000 ml 400 ml 280 ml Results Result Diagram: 08/01/16 0522 08/03/16 1105 Results 24 hrs Laboratory Tests Test 08/02/16 21:17 08/03/16 07:48 08/03/16 08:52 08/03/16 11:05 Bedside Glucose 150 463 *H 458 *H Anion Gap 20 H Blood Urea Nitrogen 54 H Calcium Level 8.5 Carbon Dioxide Level 24 Chloride Level 96 L Creatinine 7.03 H Glucose Level 352 H Potassium Level 4.4 Sodium Level 136 Test 08/03/16 11:35 08/03/16 13:41 08/03/16 17:27 Bedside Glucose 330 H 317 H 148 Medications Medications Current Medications Diphenhydramine HCl (Benadryl) 50 mg Q6H PRN IV ITCHING Last administered on 16:21; Admin Dose 50 MG; Start 07/09/16 at 17:00 Miscellaneous Information 1 ea NOTE XX ; Start 07/09/16 at 18:30 Glucose (Glutose) 15 gm Q15M PRN PO DECREASED GLUCOSE; Start 07/09/16 at 18:30 Glucose (Glutose) 22.5 gm Q15M PRN PO DECREASED GLUCOSE; Start 07/09/16 at 18: 30 Dextrose (D50w Syringe) 25 ml Q15M PRN IV DECREASED GLUCOSE Last administered on 08/01/16 16:05; Admin Dose 25 ML; Start 07/09/16 at 18:30 Dextrose (D50w Syringe) 50 ml Q15M PRN IV DECREASED GLUCOSE Last administered on 07/19/16 20:58; Admin Dose 50 ML; Start 07/09/16 at 18:30 Glucagon (Glucagen) 1 mg Q15M PRN IM DECREASED GLUCOSE; Start 07/09/16 at 18:30 Glucose (Glutose) 15 gm Q15M PRN BUCCAL DECREASED GLUCOSE; Start 07/09/16 at 18 :30 Aspirin (Halfprin) 81 mg DAILY PO Last administered on 08/03/16 08:48; Admin Dose 81 MG; Start 07/10/16 at 09:00 Atorvastatin Calcium (Lipitor) 80 mg QHS PO Last administered on 08/02/16 21: 07; Admin Dose 80 MG; Start 07/10/16 at 21:00 Clonidine (Catapres) 0.1 mg Q6 PO Last administered on 08/03/16 17:33; Admin Dose 0.1 MG; Start 07/10/16 at 12:00 Isosorbide Mononitrate (Imdur) 60 mg DAILY PO Last administered on 08/03/16 08 :48; Admin Dose 60 MG; Start 07/10/16 at 10:00 Lactobacillus Acidoph/Bulgaricus (Floranex) 1 tab TID PO Last administered on 12:21; Admin Dose 1 TAB; Start 07/10/16 at 09:00 Metoprolol Succinate (Toprol Xl) 50 mg BID PO Last administered on 08/03/16 08 :47; Admin Dose 50 MG; Start 07/10/16 at 10:00 Prasugrel (Effient) 10 mg DAILY PO Last administered on 08/03/16 08:46; Admin Dose 10 MG; Start 07/10/16 at 10:30 Acetaminophen (Tylenol Tab) 500 mg Q4H PRN PO PAIN AND OR ELEVATED TEMP Last administered on 07/30/16 20:06; Admin Dose 500 MG; Start 07/10/16 at 09:00 Cholestyramine Resin (Questran Light) 4 gm BID PO Last administered on 08:46; Admin Dose 4 GM; Start 07/11/16 at 09:00 Pantoprazole (Protonix Tab) 40 mg DAILY@06 PO Last administered on 08/03/16 06 :10; Admin Dose 40 MG; Start 07/16/16 at 06:00 Calcitriol (Rocaltrol) 0.5 mcg DAILY PO Last administered on 08/03/16 08:47; Admin Dose 0.5 MCG; Start 07/24/16 at 10:00 Ondansetron HCl (Zofran Inj) 4 mg Q4H PRN IV NAUSEA AND/OR VOMITING; Start 03/31 at 16:00 Hydromorphone HCl (Dilaudid) 2 mg Q3H PRN IV PAIN Last administered on 16:22; Admin Dose 2 MG; Start 07/27/16 at 23:30 Apixaban (Eliquis) 2.5 mg BID PO Last administered on 08/03/16 08:46; Admin Dose 2.5 MG; Start 07/30/16 at 21:00 Gabapentin 800 mg 800 mg TID PO Last administered on 08/03/16 12:21; Admin Dose 800 MG; Start 07/31/16 at 21:00 Vancomycin HCl (Vancocin) 250 ml @ 125 mls/hr Q96H IVPB Last administered on 17:21; Admin Dose 125 MLS/HR; Start 08/01/16 at 18:00 Non-Formulary Medication (Non-Formulary Insulin) Patient will use ... DAILY SC ; Start 08/03/16 at 15:00 BIJAN LONGO NP Aug 03, 2016 18:18
[2016-08-03 20:15] VITALS: BP 120/60; RESP 16
[2016-08-03] MEDS: ATORVASTATIN 80 MG TAB PO SCH (20:50)
[2016-08-04] MEDS: HYDROmorphONE 2 MG/ML SYG IV PRN ×7 (01:26→22:19)
[2016-08-04] MEDS: DIPHENHYDRAMINE 50 MG INJ IV PRN ×4 (04:28→22:19)
[2016-08-04] MEDS: PANTOPRAZOLE (EC) 40 MG TAB PO SCH (05:46)
[2016-08-04 06:40] LABS: POTASSIUM 4.5 mmol/L (3.5-5.1)
[2016-08-04 06:42] LABS: CREATININE 8.24 mg/dl (0.61-1.24)
[2016-08-04 06:43] LABS: CALCIUM 8.2 mg/dl (8.4-10.2); MAGNESIUM 2.1 mg/dl (1.7-2.5)
[2016-08-04 07:16] LABS: BASOPHILS % 0.4 % (0.0-2.0); EOSINOPHILS # 0.7 10^3/ul (0.0-0.5); EOSINOPHILS % 9.8 % (0.0-7.0); HEMATOCRIT 26.5 % (42.0-52.0); HEMOGLOBIN 9.1 g/dl (14.0-18.0); LYMPHOCYTES # 1.1 10^3/ul (0.8-2.9); LYMPHOCYTES % 14.5 % (15.0-51.0); MEAN CORPUSCULAR HEMOGLOBIN 30.9 pg (29.0-33.0); MEAN CORPUSCULAR HGB CONC 34.4 g/dl (32.0-37.0); MEAN CORPUSCULAR VOLUME 89.7 fl (82.0-101.0); MEAN PLATELET VOLUME 9.6 fl (7.4-10.4); MONOCYTE # 0.8 10^3/ul (0.3-0.9); MONOCYTES % 10.6 % (0.0-11.0); NEUTROPHIL # 4.7 10^3/ul (1.6-7.5); NEUTROPHILS % 64.7 % (39.0-77.0); PLATELET COUNT 286 10^3/UL (140-440); RED BLOOD COUNT 2.95 10^6/ul (4.70-6.10); RED CELL DISTRIBUTION WIDTH 15.3 % (11.5-14.5); UNCORRECTED WBC 7.3 10^3/ul (4.8-10.8); WHITE BLOOD COUNT 7.3 10^3/ul (4.8-10.8)
[2016-08-04 07:17] LABS: CONDITION 1; LH ANALYZER COMMENTS 1
--- NOTE | 2016-08-04 07:59 | CONS ---
Date/Time of Note Date/Time of Note DATE: 08/04/16 TIME: 07:57 Assessment/Plan Assessment/Plan Chief Complaint/Hosp Course #1 end-stage renal disease, on maintenance hemodialysis Thursday. I will order hemodialysis for tomorrow . #2 bilateral foot pain . Seems less. #3 anemia. H/H is drifting down . #4 hyperkalemia . He is taking Veltassa for elevated K . He is on increased dose of the the Veltassa to 16.8 gm a day .potassium is under control . #5 pseudoaneurysm of R femoral artery for which he had surgery 8 days ago . He has an infection at the surgical site and is on antibiotics . #6 He has a DVT in his proximal R femoral vein and is on Eliquis . Problems: Consultation Date/Type/Reason Admit Date/Time Jul 11, 2016 at 12:19 Type of Consultation: id 24 HR Interval Summary Free Text/Dictation no new complaints Constitutional: no complaints Exam/Review of Systems Vital Signs Vitals Vital Signs Date Time Temp Pulse Resp B/P Pulse Ox O2 Delivery O2 Flow Rate FiO2 08/03/16 20:15 98.5 75 16 120/60 96 Intake and Output 08/03/16 08/03/16 08/04/16 15:00 23:00 07:00 Intake Total 720 ml 960 ml Output Total 1000 ml Balance 720 ml -40 ml Exam Constitutional: alert, oriented, well developed Psych: nl mood/affect, no complaints Respiratory: clear to auscultation, normal air movement Cardiovascular: nl pulses, regular rate and rhythm Musculoskeletal: nl extremities to inspection Results Result Diagram: 08/04/16 0545 08/04/16 0545 Results 24 hrs Laboratory Tests Test 08/03/16 08:52 08/03/16 11:05 08/03/16 11:35 08/03/16 13:41 Bedside Glucose 458 *H 330 H 317 H Anion Gap 20 H Blood Urea Nitrogen 54 H Calcium Level 8.5 Carbon Dioxide Level 24 Chloride Level 96 L Creatinine 7.03 H Glucose Level 352 H Potassium Level 4.4 Sodium Level 136 Test 08/03/16 17:27 08/03/16 20:45 08/04/16 05:45 08/04/16 07:48 Bedside Glucose 148 193 107 Anion Gap 21 H Basophils # 0.0 Basophils % 0.4 Blood Morphology Comment Blood Urea Nitrogen 61 H Calcium Level 8.2 L Carbon Dioxide Level 22 Chloride Level 98 Creatinine 8.24 H Eosinophils # 0.7 H Eosinophils % 9.8 H Glucose Level 87 # Hematocrit 26.5 L Hemoglobin 9.1 L Lymphocytes # 1.1 Lymphocytes % 14.5 L Magnesium Level 2.1 Mean Corpuscular Hemoglobin 30.9 Mean Corpuscular Hemoglobin Concent 34.4 Mean Corpuscular Volume 89.7 Mean Platelet Volume 9.6 Monocytes # 0.8 Monocytes % 10.6 Neutrophils # 4.7 Neutrophils % 64.7 Nucleated Red Blood Cells # 0.0 Nucleated Red Blood Cells % 0.0 Phosphorus Level 4.3 Platelet Count 286 # Potassium Level 4.5 Red Blood Count 2.95 L Red Cell Distribution Width 15.3 H Sodium Level 136 White Blood Count 7.3 Medications Medications Current Medications Diphenhydramine HCl (Benadryl) 50 mg Q6H PRN IV ITCHING Last administered on 04:28; Admin Dose 50 MG; Start 07/09/16 at 17:00 Miscellaneous Information 1 ea NOTE XX ; Start 07/09/16 at 18:30 Glucose (Glutose) 15 gm Q15M PRN PO DECREASED GLUCOSE; Start 07/09/16 at 18:30 Glucose (Glutose) 22.5 gm Q15M PRN PO DECREASED GLUCOSE; Start 07/09/16 at 18: 30 Dextrose (D50w Syringe) 25 ml Q15M PRN IV DECREASED GLUCOSE Last administered on 08/01/16 16:05; Admin Dose 25 ML; Start 07/09/16 at 18:30 Dextrose (D50w Syringe) 50 ml Q15M PRN IV DECREASED GLUCOSE Last administered on 07/19/16 20:58; Admin Dose 50 ML; Start 07/09/16 at 18:30 Glucagon (Glucagen) 1 mg Q15M PRN IM DECREASED GLUCOSE; Start 07/09/16 at 18:30 Glucose (Glutose) 15 gm Q15M PRN BUCCAL DECREASED GLUCOSE; Start 07/09/16 at 18 :30 Aspirin (Halfprin) 81 mg DAILY PO Last administered on 08/03/16 08:48; Admin Dose 81 MG; Start 07/10/16 at 09:00 Atorvastatin Calcium (Lipitor) 80 mg QHS PO Last administered on 08/03/16 20: 50; Admin Dose 80 MG; Start 07/10/16 at 21:00 Clonidine (Catapres) 0.1 mg Q6 PO Last administered on 08/04/16 05:48; Admin Dose 0.1 MG; Start 07/10/16 at 12:00 Isosorbide Mononitrate (Imdur) 60 mg DAILY PO Last administered on 08/03/16 08 :48; Admin Dose 60 MG; Start 07/10/16 at 10:00 Lactobacillus Acidoph/Bulgaricus (Floranex) 1 tab TID PO Last administered on 20:50; Admin Dose 1 TAB; Start 07/10/16 at 09:00 Metoprolol Succinate (Toprol Xl) 50 mg BID PO Last administered on 08/03/16 20 :52; Admin Dose 50 MG; Start 07/10/16 at 10:00 Prasugrel (Effient) 10 mg DAILY PO Last administered on 08/03/16 08:46; Admin Dose 10 MG; Start 07/10/16 at 10:30 Acetaminophen (Tylenol Tab) 500 mg Q4H PRN PO PAIN AND OR ELEVATED TEMP Last administered on 07/30/16 20:06; Admin Dose 500 MG; Start 07/10/16 at 09:00 Cholestyramine Resin (Questran Light) 4 gm BID PO Last administered on 08:46; Admin Dose 4 GM; Start 07/11/16 at 09:00 Pantoprazole (Protonix Tab) 40 mg DAILY@06 PO Last administered on 08/04/16 05 :46; Admin Dose 40 MG; Start 07/16/16 at 06:00 Calcitriol (Rocaltrol) 0.5 mcg DAILY PO Last administered on 08/03/16 08:47; Admin Dose 0.5 MCG; Start 07/24/16 at 10:00 Ondansetron HCl (Zofran Inj) 4 mg Q4H PRN IV NAUSEA AND/OR VOMITING; Start 03/31 at 16:00 Hydromorphone HCl (Dilaudid) 2 mg Q3H PRN IV PAIN Last administered on 07:24; Admin Dose 2 MG; Start 07/27/16 at 23:30 Apixaban (Eliquis) 2.5 mg BID PO Last administered on 08/03/16 20:50; Admin Dose 2.5 MG; Start 07/30/16 at 21:00 Gabapentin 800 mg 800 mg TID PO Last administered on 08/03/16 20:50; Admin Dose 800 MG; Start 07/31/16 at 21:00 Vancomycin HCl (Vancocin) 250 ml @ 125 mls/hr Q96H IVPB Last administered on 17:21; Admin Dose 125 MLS/HR; Start 08/01/16 at 18:00 Non-Formulary Medication (Non-Formulary Insulin) Patient will use ... DAILY SC ; Start 08/03/16 at 15:00 DONY HOWARD MD Aug 04, 2016 07:59
[2016-08-04 08:17] VITALS: BP 135/78; RESP 18
[2016-08-04] MEDS: SEVELAMER 800 MG TAB PO SCH ×3 (08:25→17:12)
[2016-08-04] MEDS: PRASUGREL HYDROCHLORIDE 10 MG TABLET PO SCH (08:26)
[2016-08-04] MEDS: LACTOBACILLUS CHEW TAB PO SCH ×3 (08:26→20:29)
[2016-08-04] MEDS: CALCITRIOL 0.25 MCG CAP PO SCH (08:26)
[2016-08-04] MEDS: CALCIUM ACETATE 667 MG CAP PO SCH ×3 (08:26→17:11)
[2016-08-04] MEDS: METOPROLOL (XL) 50 MG TAB PO SCH ×2 (08:27→20:34)
[2016-08-04] MEDS: ASPIRIN (EC) 81 MG TAB PO SCH (08:27)
[2016-08-04] MEDS: GABAPENTIN 400 MG CAP PO SCH ×3 (08:28→20:30)
[2016-08-04] MEDS: ISOSORBIDE MONONITRATE(SR)60 MG TAB PO SCH (08:28)
[2016-08-04] MEDS: APIXABAN 5 MG TABLET PO SCH ×2 (08:28→20:30)
[2016-08-04] MEDS: CHOLESTYRAMINE (LIGHT) 4 GM PACKET PO SCH ×2 (08:33→20:30)
[2016-08-04] MEDS: ACCUCHECK XX SCH ×4 (08:34→20:29)
[2016-08-04] MEDS: [UNRECOGNIZED DRUG - OTHER] SC SCH (09:25)
[2016-08-04] MEDS: PATIROMER CALCIUM SORBITEX 16.8 GM PKT PO SCH (12:05)
--- NOTE | 2016-08-04 12:49 | CONS ---
Date/Time of Note Date/Time of Note DATE: 08/04/16 TIME: 12:48 Assessment/Plan Assessment/Plan Chief Complaint/Hosp Course SUBJECTIVE: The patient is alert, looks comfortable. No pain/no fevers. ANTIMICROBIALS: Vancomycin. INDWELLINGS: Left upper extremity AV graft, left chest Port-A-Cath MICROBIOLOGY: Cultures have been negative. PHYSICAL EXAMINATION: GENERAL: Chronically ill-appearing, middle-aged white man who is alert, in no distress. HEENT: Head atraumatic, normocephalic. Sclerae anicteric. Buccal mucosa pink. NECK: Supple, trachea midline. CHEST: Rise symmetrical. Breath sounds clear. HEART: S1, S2. ABDOMEN: Soft, bowel sounds present. EXTREMITIES: Without cyanosis. Right lower extremity Jim wrapped. SKIN: With decreased scrotal edema. ASSESSMENT: 1. Right groin scrotal cellulitis, resolved. 2. Status post right common iliac artery pseudoaneurysm repair. 3. End-stage renal disease, hemodialysis dependent. 4. History of Clostridium difficile colitis. 5. Legally blind. PLAN: The patient remains stable. Cellulitis resolved. Continue scrotal elevation, dc vancomycin. Dw pt Problems: Consultation Date/Type/Reason Admit Date/Time Jul 11, 2016 at 12:19 Initial Consult Date 07/27/16 Type of Consultation: id Exam/Review of Systems Vital Signs Vitals Vital Signs Date Time Temp Pulse Resp B/P Pulse Ox O2 Delivery O2 Flow Rate FiO2 08/04/16 08:17 98.3 71 18 135/78 98 Intake and Output 08/03/16 08/03/16 08/04/16 15:00 23:00 07:00 Intake Total 720 ml 960 ml Output Total 1000 ml Balance 720 ml -40 ml Results Result Diagram: 08/04/16 0545 08/04/16 0545 Results 24 hrs Laboratory Tests Test 08/03/16 13:41 08/03/16 17:27 08/03/16 20:45 08/04/16 05:45 Bedside Glucose 317 H 148 193 Anion Gap 21 H Basophils # 0.0 Basophils % 0.4 Blood Morphology Comment Blood Urea Nitrogen 61 H Calcium Level 8.2 L Carbon Dioxide Level 22 Chloride Level 98 Creatinine 8.24 H Eosinophils # 0.7 H Eosinophils % 9.8 H Glucose Level 87 # Hematocrit 26.5 L Hemoglobin 9.1 L Lymphocytes # 1.1 Lymphocytes % 14.5 L Magnesium Level 2.1 Mean Corpuscular Hemoglobin 30.9 Mean Corpuscular Hemoglobin Concent 34.4 Mean Corpuscular Volume 89.7 Mean Platelet Volume 9.6 Monocytes # 0.8 Monocytes % 10.6 Neutrophils # 4.7 Neutrophils % 64.7 Nucleated Red Blood Cells # 0.0 Nucleated Red Blood Cells % 0.0 Phosphorus Level 4.3 Platelet Count 286 # Potassium Level 4.5 Red Blood Count 2.95 L Red Cell Distribution Width 15.3 H Sodium Level 136 White Blood Count 7.3 Test 08/04/16 07:48 08/04/16 11:39 Bedside Glucose 107 118 Medications Medications Current Medications Diphenhydramine HCl (Benadryl) 50 mg Q6H PRN IV ITCHING Last administered on 10:58; Admin Dose 50 MG; Start 07/09/16 at 17:00 Miscellaneous Information 1 ea NOTE XX ; Start 07/09/16 at 18:30 Glucose (Glutose) 15 gm Q15M PRN PO DECREASED GLUCOSE; Start 07/09/16 at 18:30 Glucose (Glutose) 22.5 gm Q15M PRN PO DECREASED GLUCOSE; Start 07/09/16 at 18: 30 Dextrose (D50w Syringe) 25 ml Q15M PRN IV DECREASED GLUCOSE Last administered on 08/01/16 16:05; Admin Dose 25 ML; Start 07/09/16 at 18:30 Dextrose (D50w Syringe) 50 ml Q15M PRN IV DECREASED GLUCOSE Last administered on 07/19/16 20:58; Admin Dose 50 ML; Start 07/09/16 at 18:30 Glucagon (Glucagen) 1 mg Q15M PRN IM DECREASED GLUCOSE; Start 07/09/16 at 18:30 Glucose (Glutose) 15 gm Q15M PRN BUCCAL DECREASED GLUCOSE; Start 07/09/16 at 18 :30 Aspirin (Halfprin) 81 mg DAILY PO Last administered on 08/04/16 08:27; Admin Dose 81 MG; Start 07/10/16 at 09:00 Atorvastatin Calcium (Lipitor) 80 mg QHS PO Last administered on 08/03/16 20: 50; Admin Dose 80 MG; Start 07/10/16 at 21:00 Clonidine (Catapres) 0.1 mg Q6 PO Last administered on 08/04/16 12:11; Admin Dose 0.1 MG; Start 07/10/16 at 12:00 Isosorbide Mononitrate (Imdur) 60 mg DAILY PO Last administered on 08/04/16 08 :28; Admin Dose 60 MG; Start 07/10/16 at 10:00 Lactobacillus Acidoph/Bulgaricus (Floranex) 1 tab TID PO Last administered on 12:05; Admin Dose 1 TAB; Start 07/10/16 at 09:00 Metoprolol Succinate (Toprol Xl) 50 mg BID PO Last administered on 08/04/16 08 :27; Admin Dose 50 MG; Start 07/10/16 at 10:00 Prasugrel (Effient) 10 mg DAILY PO Last administered on 08/04/16 08:26; Admin Dose 10 MG; Start 07/10/16 at 10:30 Acetaminophen (Tylenol Tab) 500 mg Q4H PRN PO PAIN AND OR ELEVATED TEMP Last administered on 07/30/16 20:06; Admin Dose 500 MG; Start 07/10/16 at 09:00 Cholestyramine Resin (Questran Light) 4 gm BID PO Last administered on 08:46; Admin Dose 4 GM; Start 07/11/16 at 09:00 Pantoprazole (Protonix Tab) 40 mg DAILY@06 PO Last administered on 08/04/16 05 :46; Admin Dose 40 MG; Start 07/16/16 at 06:00 Calcitriol (Rocaltrol) 0.5 mcg DAILY PO Last administered on 08/04/16 08:26; Admin Dose 0.5 MCG; Start 07/24/16 at 10:00 Ondansetron HCl (Zofran Inj) 4 mg Q4H PRN IV NAUSEA AND/OR VOMITING; Start 03/31 at 16:00 Hydromorphone HCl (Dilaudid) 2 mg Q3H PRN IV PAIN Last administered on 10:58; Admin Dose 2 MG; Start 07/27/16 at 23:30 Apixaban (Eliquis) 2.5 mg BID PO Last administered on 08/04/16 08:28; Admin Dose 2.5 MG; Start 07/30/16 at 21:00 Gabapentin 800 mg 800 mg TID PO Last administered on 08/04/16 12:05; Admin Dose 800 MG; Start 07/31/16 at 21:00 Vancomycin HCl (Vancocin) 250 ml @ 125 mls/hr Q96H IVPB Last administered on 17:21; Admin Dose 125 MLS/HR; Start 08/01/16 at 18:00 BIJAN LONGO NP Aug 04, 2016 12:49
--- NOTE | 2016-08-04 12:58 | CONS ---
Date/Time of Note Date/Time of Note DATE: 08/04/16 TIME: 12:56 Consult Date/Type/Reason Admit Date/Time Jul 11, 2016 at 12:19 Type of Consultation: Rheum Subjective Feels much less leg aches. Denies drowsiness with Gabapentin. Objective Alert, oriented chest clear Heart RRR Abd soft. Ext No synovitis. Vital Signs Date Time Temp Pulse Resp B/P Pulse Ox O2 Delivery O2 Flow Rate FiO2 08/04/16 08:17 98.3 71 18 135/78 98 Intake and Output 08/03/16 08/03/16 08/04/16 14:59 22:59 06:59 Intake Total 720 ml 960 ml Output Total 1000 ml Balance 720 ml -40 ml Results/Medications Result Diagram: 08/04/16 0545 08/04/16 0545 Results 24 hrs Laboratory Tests Test 08/03/16 13:41 08/03/16 17:27 08/03/16 20:45 08/04/16 05:45 Bedside Glucose 317 H 148 193 Anion Gap 21 H Basophils # 0.0 Basophils % 0.4 Blood Morphology Comment Blood Urea Nitrogen 61 H Calcium Level 8.2 L Carbon Dioxide Level 22 Chloride Level 98 Creatinine 8.24 H Eosinophils # 0.7 H Eosinophils % 9.8 H Glucose Level 87 # Hematocrit 26.5 L Hemoglobin 9.1 L Lymphocytes # 1.1 Lymphocytes % 14.5 L Magnesium Level 2.1 Mean Corpuscular Hemoglobin 30.9 Mean Corpuscular Hemoglobin Concent 34.4 Mean Corpuscular Volume 89.7 Mean Platelet Volume 9.6 Monocytes # 0.8 Monocytes % 10.6 Neutrophils # 4.7 Neutrophils % 64.7 Nucleated Red Blood Cells # 0.0 Nucleated Red Blood Cells % 0.0 Phosphorus Level 4.3 Platelet Count 286 # Potassium Level 4.5 Red Blood Count 2.95 L Red Cell Distribution Width 15.3 H Sodium Level 136 White Blood Count 7.3 Test 08/04/16 07:48 08/04/16 11:39 Bedside Glucose 107 118 Medications Current Medications Diphenhydramine HCl (Benadryl) 50 mg Q6H PRN IV ITCHING Last administered on t 10:58; Admin Dose 50 MG; Start 07/09/16 at 17:00 Miscellaneous Information 1 ea NOTE XX ; Start 07/09/16 at 18:30 Glucose (Glutose) 15 gm Q15M PRN PO DECREASED GLUCOSE; Start 07/09/16 at 18:30 Glucose (Glutose) 22.5 gm Q15M PRN PO DECREASED GLUCOSE; Start 07/09/16 at 18: 30 Dextrose (D50w Syringe) 25 ml Q15M PRN IV DECREASED GLUCOSE Last administered on 08/01/16 16:05; Admin Dose 25 ML; Start 07/09/16 at 18:30 Dextrose (D50w Syringe) 50 ml Q15M PRN IV DECREASED GLUCOSE Last administered on 07/19/16 20:58; Admin Dose 50 ML; Start 07/09/16 at 18:30 Glucagon (Glucagen) 1 mg Q15M PRN IM DECREASED GLUCOSE; Start 07/09/16 at 18:30 Glucose (Glutose) 15 gm Q15M PRN BUCCAL DECREASED GLUCOSE; Start 07/09/16 at 18 :30 Aspirin (Halfprin) 81 mg DAILY PO Last administered on 08/04/16 08:27; Admin Dose 81 MG; Start 07/10/16 at 09:00 Atorvastatin Calcium (Lipitor) 80 mg QHS PO Last administered on 08/03/16 20: 50; Admin Dose 80 MG; Start 07/10/16 at 21:00 Clonidine (Catapres) 0.1 mg Q6 PO Last administered on 08/04/16 12:11; Admin Dose 0.1 MG; Start 07/10/16 at 12:00 Isosorbide Mononitrate (Imdur) 60 mg DAILY PO Last administered on 08/04/16 08 :28; Admin Dose 60 MG; Start 07/10/16 at 10:00 Lactobacillus Acidoph/Bulgaricus (Floranex) 1 tab TID PO Last administered on 12:05; Admin Dose 1 TAB; Start 07/10/16 at 09:00 Metoprolol Succinate (Toprol Xl) 50 mg BID PO Last administered on 08/04/16 08 :27; Admin Dose 50 MG; Start 07/10/16 at 10:00 Prasugrel (Effient) 10 mg DAILY PO Last administered on 08/04/16 08:26; Admin Dose 10 MG; Start 07/10/16 at 10:30 Acetaminophen (Tylenol Tab) 500 mg Q4H PRN PO PAIN AND OR ELEVATED TEMP Last administered on 07/30/16 20:06; Admin Dose 500 MG; Start 07/10/16 at 09:00 Cholestyramine Resin (Questran Light) 4 gm BID PO Last administered on 08:46; Admin Dose 4 GM; Start 07/11/16 at 09:00 Pantoprazole (Protonix Tab) 40 mg DAILY@06 PO Last administered on 08/04/16 05 :46; Admin Dose 40 MG; Start 07/16/16 at 06:00 Calcitriol (Rocaltrol) 0.5 mcg DAILY PO Last administered on 08/04/16 08:26; Admin Dose 0.5 MCG; Start 07/24/16 at 10:00 Ondansetron HCl (Zofran Inj) 4 mg Q4H PRN IV NAUSEA AND/OR VOMITING; Start 03/31 at 16:00 Hydromorphone HCl (Dilaudid) 2 mg Q3H PRN IV PAIN Last administered on 10:58; Admin Dose 2 MG; Start 07/27/16 at 23:30 Apixaban (Eliquis) 2.5 mg BID PO Last administered on 08/04/16 08:28; Admin Dose 2.5 MG; Start 07/30/16 at 21:00 Gabapentin (Neurontin) 800 mg TID PO Last administered on 08/04/16 12:05; Admin Dose 800 MG; Start 07/31/16 at 21:00 Diagnostic Test (Pha) (Accucheck) 1 ea 09,14,20 XX ; Start 08/04/16 at 14:00 Assessment/Plan Chief Complaint/Hosp Course Ass 1. Leg pain. Neuropathic in part, responding to Gabapentin. 2. Marked peripheral arterial disease. 3. Possible right lumbar radiculopathy, long standing 4. Renal Failure 5. Diabetes Mellitus 6. Right common femoral vein DVT 7. S/p repair of pseudoaneurism right groin. Rec. Continue Gabapentin at night to 800 mg tid. Increase ambulation as tolerated. Problems: ENMA GRAHAM MD Aug 04, 2016 12:58
--- NOTE | 2016-08-04 15:34 | PN ---
Date/Time of Note Date/Time of Note DATE: 08/04/16 TIME: 15:33 Assessment/Plan VTE Prophylaxis VTE Prophylaxis Intervention: SCD's Lines/Catheters IV [facility] portacath Urinary Cath still in place: No Assessment/Plan Chief Complaint/Hosp Course ASSESSMENT AND PLAN: 1. Diarrhea with recent history of Clostridium difficile colitis, resolved. Dr. Gomez is following in gastroenterology consultation 2. Dehydration secondary to diarrhea with recent history of Clostridium difficile colitis. Stool for C. difficile is negative. 3. Type 1 diabetes mellitus with diabetic nephropathy. Continue NovoLog per insulin pump. Dr. Haddad is following an endocrinology consultation. 4. End-stage renal disease, hemodialysis dependent. Dr. Hubbard is following the patient in nephrology consultation. Continue dialysis per nephrology. 5. Coronary artery disease. Continue Imdur and metoprolol. 6. Hypertension. 7. Bilateral lower extremities pain. Dr. Orosco is following and rheumatology consultation. 8. Lateral lower extremities atherosclerosis and left lower extremity disabling claudication. is following in vascular surgery consultation. S/P angio with LLE SFA severe stenosis. S/p Left femoral popliteal stenting on 07-25, s/p Exploration of right common femoral artery and control of bleeding on 07-27. Started on Eliquis, follow-up vascular surgery recommendations. 9. Scrotal edema. Dr. Pagan is following in urology consultation. Acute rebab eval Continue heparin for deep venous thrombosis prophylaxis and Pepcid for peptic ulcer disease prophylaxis. Further recommendations based on clinical course. Plan of care discussed with Dr. Rosales. Problems: Exam/Review of Systems Vital Signs Vitals Vital Signs Date Time Temp Pulse Resp B/P Pulse Ox O2 Delivery O2 Flow Rate FiO2 08/04/16 08:17 98.3 71 18 135/78 98 Intake and Output 08/03/16 08/03/16 08/04/16 15:00 23:00 07:00 Intake Total 720 ml 960 ml Output Total 1000 ml Balance 720 ml -40 ml Exam GENERAL: Well-developed, well-nourished male, currently appears pale, awake, alert. HEENT: The patient has right eye prosthesis. Left pupil is equal, round, reactive to light and accommodation. NECK: Supple. No cervical lymphadenopathy, no thyromegaly. CHEST: Lungs clear bilaterally. There are no rhonchi, wheezes, rales noted. CARDIOVASCULAR: Normal S1, S2. No murmurs, gallops, clicks, rubs noted. ABDOMEN: Flat, soft, nondistended. The patient has generalized tenderness to epigastric tenderness on palpation. No guarding. EXTREMITIES: No edema, clubbing, cyanosis. Left upper extremity AV graft with a palpable thrill and audible bruit. Right lower extremity status post surgical intervention. SKIN: No rash, petechiae noted. NEUROLOGIC: The patient is awake, alert, and oriented x3. Results Result Diagram: 08/04/16 0545 08/04/16 0545 Results 24 hrs Laboratory Tests Test 08/03/16 17:27 08/03/16 20:45 08/04/16 05:45 08/04/16 07:48 Bedside Glucose 148 193 107 Anion Gap 21 H Basophils # 0.0 Basophils % 0.4 Blood Morphology Comment Blood Urea Nitrogen 61 H Calcium Level 8.2 L Carbon Dioxide Level 22 Chloride Level 98 Creatinine 8.24 H Eosinophils # 0.7 H Eosinophils % 9.8 H Glucose Level 87 # Hematocrit 26.5 L Hemoglobin 9.1 L Lymphocytes # 1.1 Lymphocytes % 14.5 L Magnesium Level 2.1 Mean Corpuscular Hemoglobin 30.9 Mean Corpuscular Hemoglobin Concent 34.4 Mean Corpuscular Volume 89.7 Mean Platelet Volume 9.6 Monocytes # 0.8 Monocytes % 10.6 Neutrophils # 4.7 Neutrophils % 64.7 Nucleated Red Blood Cells # 0.0 Nucleated Red Blood Cells % 0.0 Phosphorus Level 4.3 Platelet Count 286 # Potassium Level 4.5 Red Blood Count 2.95 L Red Cell Distribution Width 15.3 H Sodium Level 136 White Blood Count 7.3 Test 08/04/16 11:39 08/04/16 14:36 Bedside Glucose 118 157 Medications Medications Current Medications Diphenhydramine HCl (Benadryl) 50 mg Q6H PRN IV ITCHING Last administered on t 10:58; Admin Dose 50 MG; Start 07/09/16 at 17:00 Miscellaneous Information 1 ea NOTE XX ; Start 07/09/16 at 18:30 Glucose (Glutose) 15 gm Q15M PRN PO DECREASED GLUCOSE; Start 07/09/16 at 18:30 Glucose (Glutose) 22.5 gm Q15M PRN PO DECREASED GLUCOSE; Start 07/09/16 at 18: 30 Dextrose (D50w Syringe) 25 ml Q15M PRN IV DECREASED GLUCOSE Last administered on 08/01/16 16:05; Admin Dose 25 ML; Start 07/09/16 at 18:30 Dextrose (D50w Syringe) 50 ml Q15M PRN IV DECREASED GLUCOSE Last administered on 07/19/16 20:58; Admin Dose 50 ML; Start 07/09/16 at 18:30 Glucagon (Glucagen) 1 mg Q15M PRN IM DECREASED GLUCOSE; Start 07/09/16 at 18:30 Glucose (Glutose) 15 gm Q15M PRN BUCCAL DECREASED GLUCOSE; Start 07/09/16 at 18 :30 Aspirin (Halfprin) 81 mg DAILY PO Last administered on 08/04/16 08:27; Admin Dose 81 MG; Start 07/10/16 at 09:00 Atorvastatin Calcium (Lipitor) 80 mg QHS PO Last administered on 08/03/16 20: 50; Admin Dose 80 MG; Start 07/10/16 at 21:00 Clonidine (Catapres) 0.1 mg Q6 PO Last administered on 08/04/16 12:11; Admin Dose 0.1 MG; Start 07/10/16 at 12:00 Isosorbide Mononitrate (Imdur) 60 mg DAILY PO Last administered on 08/04/16 08 :28; Admin Dose 60 MG; Start 07/10/16 at 10:00 Lactobacillus Acidoph/Bulgaricus (Floranex) 1 tab TID PO Last administered on 12:05; Admin Dose 1 TAB; Start 07/10/16 at 09:00 Metoprolol Succinate (Toprol Xl) 50 mg BID PO Last administered on 08/04/16 08 :27; Admin Dose 50 MG; Start 07/10/16 at 10:00 Prasugrel (Effient) 10 mg DAILY PO Last administered on 08/04/16 08:26; Admin Dose 10 MG; Start 07/10/16 at 10:30 Acetaminophen (Tylenol Tab) 500 mg Q4H PRN PO PAIN AND OR ELEVATED TEMP Last administered on 07/30/16 20:06; Admin Dose 500 MG; Start 07/10/16 at 09:00 Cholestyramine Resin (Questran Light) 4 gm BID PO Last administered on 08:46; Admin Dose 4 GM; Start 07/11/16 at 09:00 Pantoprazole (Protonix Tab) 40 mg DAILY@06 PO Last administered on 08/04/16 05 :46; Admin Dose 40 MG; Start 07/16/16 at 06:00 Calcitriol (Rocaltrol) 0.5 mcg DAILY PO Last administered on 08/04/16 08:26; Admin Dose 0.5 MCG; Start 07/24/16 at 10:00 Ondansetron HCl (Zofran Inj) 4 mg Q4H PRN IV NAUSEA AND/OR VOMITING; Start 03/31 at 16:00 Hydromorphone HCl (Dilaudid) 2 mg Q3H PRN IV PAIN Last administered on 13:41; Admin Dose 2 MG; Start 07/27/16 at 23:30 Apixaban (Eliquis) 2.5 mg BID PO Last administered on 08/04/16 08:28; Admin Dose 2.5 MG; Start 07/30/16 at 21:00 Gabapentin (Neurontin) 800 mg TID PO Last administered on 08/04/16 12:05; Admin Dose 800 MG; Start 07/31/16 at 21:00 Diagnostic Test (Pha) (Accucheck) ,14,20 XX ; Start 08/04/16 at 14:00 ANGELINA CASTREJON Aug 04, 2016 15:34
--- NOTE | 2016-08-04 18:45 | CONS ---
Date/Time of Note Date/Time of Note DATE: 08/04/16 TIME: 18:44 Assessment/Plan Assessment/Plan Additional Assessment/Plan IMPRESSION: 1. Diarrhea. 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 Improved after Questran restarted. C. Diff negative.better 2. Diabetes mellitus. 3. Renal failure. 4. Coronary artery disease. 5. Hypertension. 6.pain lower extremity, 7.rt common femoral artery pseudo aneurysm,rt FV dvt,now on Eliquis 7.left lower extremity angioplasty and stenting 9.scrotal swelling Plan continue Questran pain management vascular intervention as per vascular surgeon antibiotics as per ID Consultation Date/Type/Reason Admit Date/Time Jul 11, 2016 at 12:19 Type of Consultation: Rheum 24 HR Interval Summary Free Text/Dictation leg pain Exam/Review of Systems Vital Signs Vitals Vital Signs Date Time Temp Pulse Resp B/P Pulse Ox O2 Delivery O2 Flow Rate FiO2 08/04/16 08:17 98.3 71 18 135/78 98 Intake and Output 08/03/16 08/03/16 08/04/16 15:00 23:00 07:00 Intake Total 720 ml 960 ml Output Total 1000 ml Balance 720 ml -40 ml Exam Constitutional: alert, oriented, well developed Psych: nl mood/affect, no complaints Head: atraumatic, normocephalic Eyes: EOMI, PERRL, nl conjunctiva, nl lids, nl sclera ENMT: nl external ears & nose, nl lips & teeth, nl nasal mucosa & septum Neck: non-tender, supple Respiratory: clear to auscultation, normal air movement Cardiovascular: nl pulses, regular rate and rhythm Gastrointestinal: nl liver, spleen, non-tender, soft Musculoskeletal: nl extremities to inspection, nl gait and stance Extremities: normal pulses 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: ANTIQUE FURNITURE REPAIRER II-XII intact, nl mental status, nl speech, nl strength Skin: nl turgor, No rash or lesions Lymph: nl lymph nodes Results Result Diagram: 08/04/1645 08/04/16 0545 Results 24 hrs Laboratory Tests Test 08/03/16 20:45 08/04/16 05:45 08/04/16 07:48 08/04/16 11:39 Bedside Glucose 193 107 118 Anion Gap 21 H Basophils # 0.0 Basophils % 0.4 Blood Morphology Comment Blood Urea Nitrogen 61 H Calcium Level 8.2 L Carbon Dioxide Level 22 Chloride Level 98 Creatinine 8.24 H Eosinophils # 0.7 H Eosinophils % 9.8 H Glucose Level 87 # Hematocrit 26.5 L Hemoglobin 9.1 L Lymphocytes # 1.1 Lymphocytes % 14.5 L Magnesium Level 2.1 Mean Corpuscular Hemoglobin 30.9 Mean Corpuscular Hemoglobin Concent 34.4 Mean Corpuscular Volume 89.7 Mean Platelet Volume 9.6 Monocytes # 0.8 Monocytes % 10.6 Neutrophils # 4.7 Neutrophils % 64.7 Nucleated Red Blood Cells # 0.0 Nucleated Red Blood Cells % 0.0 Phosphorus Level 4.3 Platelet Count 286 # Potassium Level 4.5 Red Blood Count 2.95 L Red Cell Distribution Width 15.3 H Sodium Level 136 White Blood Count 7.3 Test 08/04/16 14:36 08/04/16 17:09 Bedside Glucose 157 150 Medications Medications Current Medications Diphenhydramine HCl (Benadryl) 50 mg Q6H PRN IV ITCHING Last administered on 16:23; Admin Dose 50 MG; Start 07/09/16 at 17:00 Miscellaneous Information 1 ea NOTE XX ; Start 07/09/16 at 18:30 Glucose (Glutose) 15 gm Q15M PRN PO DECREASED GLUCOSE; Start 07/09/16 at 18:30 Glucose (Glutose) 22.5 gm Q15M PRN PO DECREASED GLUCOSE; Start 07/09/16 at 18: 30 Dextrose (D50w Syringe) 25 ml Q15M PRN IV DECREASED GLUCOSE Last administered on 08/01/16 16:05; Admin Dose 25 ML; Start 07/09/16 at 18:30 Dextrose (D50w Syringe) 50 ml Q15M PRN IV DECREASED GLUCOSE Last administered on 07/19/16 20:58; Admin Dose 50 ML; Start 07/09/16 at 18:30 Glucagon (Glucagen) 1 mg Q15M PRN IM DECREASED GLUCOSE; Start 07/09/16 at 18:30 Glucose (Glutose) 15 gm Q15M PRN BUCCAL DECREASED GLUCOSE; Start 07/09/16 at 18 :30 Aspirin (Halfprin) 81 mg DAILY PO Last administered on 08/04/16 08:27; Admin Dose 81 MG; Start 07/10/16 at 09:00 Atorvastatin Calcium (Lipitor) 80 mg QHS PO Last administered on 08/03/16 20: 50; Admin Dose 80 MG; Start 07/10/16 at 21:00 Clonidine (Catapres) 0.1 mg Q6 PO Last administered on 08/04/16 12:11; Admin Dose 0.1 MG; Start 07/10/16 at 12:00 Isosorbide Mononitrate (Imdur) 60 mg DAILY PO Last administered on 08/04/16 08 :28; Admin Dose 60 MG; Start 07/10/16 at 10:00 Lactobacillus Acidoph/Bulgaricus (Floranex) 1 tab TID PO Last administered on 12:05; Admin Dose 1 TAB; Start 07/10/16 at 09:00 Metoprolol Succinate (Toprol Xl) 50 mg BID PO Last administered on 08/04/16 08 :27; Admin Dose 50 MG; Start 07/10/16 at 10:00 Prasugrel (Effient) 10 mg DAILY PO Last administered on 08/04/16 08:26; Admin Dose 10 MG; Start 07/10/16 at 10:30 Acetaminophen (Tylenol Tab) 500 mg Q4H PRN PO PAIN AND OR ELEVATED TEMP Last administered on 07/30/16 20:06; Admin Dose 500 MG; Start 07/10/16 at 09:00 Cholestyramine Resin (Questran Light) 4 gm BID PO Last administered on 08:46; Admin Dose 4 GM; Start 07/11/16 at 09:00 Pantoprazole (Protonix Tab) 40 mg DAILY@06 PO Last administered on 08/04/16 05 :46; Admin Dose 40 MG; Start 07/16/16 at 06:00 Calcitriol (Rocaltrol) 0.5 mcg DAILY PO Last administered on 08/04/16 08:26; Admin Dose 0.5 MCG; Start 07/24/16 at 10:00 Ondansetron HCl (Zofran Inj) 4 mg Q4H PRN IV NAUSEA AND/OR VOMITING; Start 03/31 at 16:00 Hydromorphone HCl (Dilaudid) 2 mg Q3H PRN IV PAIN Last administered on 16:23; Admin Dose 2 MG; Start 07/27/16 at 23:30 Apixaban (Eliquis) 2.5 mg BID PO Last administered on 08/04/16 08:28; Admin Dose 2.5 MG; Start 07/30/16 at 21:00 Gabapentin (Neurontin) 800 mg TID PO Last administered on 08/04/16 12:05; Admin Dose 800 MG; Start 07/31/16 at 21:00 Diagnostic Test (Pha) (Accucheck) 1 ,, XX ; Start 08/04/16 at 14:00 NIYAH REED MD Aug 04, 2016 18:45
[2016-08-04 20:00] VITALS: BP 117/67; PULSE 69; RESP 16
[2016-08-04] MEDS: ATORVASTATIN 80 MG TAB PO SCH (20:30)
[2016-08-05] VITALS (10 sets, daily range): BP systolic 101–176; BP diastolic 59–93; PULSE 76–88; RESP 18–20
[2016-08-05] MEDS: HYDROmorphONE 2 MG/ML SYG IV PRN ×8 (01:10→22:54)
[2016-08-05] MEDS: DIPHENHYDRAMINE 50 MG INJ IV PRN ×4 (04:00→22:54)
[2016-08-05 06:26] LABS: BASOPHIL # 0.1 10^3/ul (0.0-0.1); BASOPHILS % 0.8 % (0.0-2.0); CONDITION 1; EOSINOPHILS # 0.7 10^3/ul (0.0-0.5); HEMATOCRIT 26.7 % (42.0-52.0); LH ANALYZER COMMENTS 1; LYMPHOCYTES # 0.9 10^3/ul (0.8-2.9); LYMPHOCYTES % 12.3 % (15.0-51.0); MEAN CORPUSCULAR HEMOGLOBIN 30.4 pg (29.0-33.0); MEAN CORPUSCULAR HGB CONC 33.8 g/dl (32.0-37.0); MEAN CORPUSCULAR VOLUME 89.9 fl (82.0-101.0); MEAN PLATELET VOLUME 9.4 fl (7.4-10.4); MONOCYTE # 0.7 10^3/ul (0.3-0.9); MONOCYTES % 10.2 % (0.0-11.0); NEUTROPHIL # 4.8 10^3/ul (1.6-7.5); NEUTROPHILS % 66.7 % (39.0-77.0); PLATELET COUNT 296 10^3/UL (140-440); RED BLOOD COUNT 2.97 10^6/ul (4.70-6.10); RED CELL DISTRIBUTION WIDTH 15.8 % (11.5-14.5); UNCORRECTED WBC 7.1 10^3/ul (4.8-10.8); WHITE BLOOD COUNT 7.1 10^3/ul (4.8-10.8)
[2016-08-05 06:46] LABS: POTASSIUM 4.7 mmol/L (3.5-5.1)
[2016-08-05 06:48] LABS: CREATININE 9.01 mg/dl (0.61-1.24)
[2016-08-05 06:49] LABS: CALCIUM 8.1 mg/dl (8.4-10.2)
[2016-08-05] MEDS: PANTOPRAZOLE (EC) 40 MG TAB PO SCH (06:55)
[2016-08-05] MEDS: SEVELAMER 800 MG TAB PO SCH ×3 (08:17→17:07)
[2016-08-05] MEDS: CALCIUM ACETATE 667 MG CAP PO SCH ×3 (08:17→17:07)
[2016-08-05] MEDS: ASPIRIN (EC) 81 MG TAB PO SCH (08:18)
[2016-08-05] MEDS: APIXABAN 5 MG TABLET PO SCH ×2 (08:18→21:39)
[2016-08-05] MEDS: CALCITRIOL 0.25 MCG CAP PO SCH (08:18)
[2016-08-05] MEDS: GABAPENTIN 400 MG CAP PO SCH ×3 (08:18→21:40)
[2016-08-05] MEDS: PRASUGREL HYDROCHLORIDE 10 MG TABLET PO SCH (08:18)
[2016-08-05] MEDS: LACTOBACILLUS CHEW TAB PO SCH ×3 (08:19→21:39)
[2016-08-05] MEDS: DIPHENHYDRAMINE 50 MG INJ IV SCH (08:19)
[2016-08-05] MEDS: LORAZEPAM 2 MG INJ IV SCH (08:19)
[2016-08-05] MEDS: LIDOCAINE 1% (MDV) 20 ML INJ SC PRN (08:21)
[2016-08-05] MEDS: ACCUCHECK XX SCH ×6 (08:23→20:08)
[2016-08-05] MEDS: ISOSORBIDE MONONITRATE(SR)60 MG TAB PO SCH (08:45)
[2016-08-05] MEDS: METOPROLOL (XL) 50 MG TAB PO SCH ×2 (08:45→21:42)
[2016-08-05] MEDS: CHOLESTYRAMINE (LIGHT) 4 GM PACKET PO SCH ×2 (08:46→21:00)
--- NOTE | 2016-08-05 10:34 | CONS ---
Date/Time of Note Date/Time of Note DATE: 08/05/16 TIME: 10:32 Assessment/Plan Assessment/Plan Additional Assessment/Plan IMPRESSION: 1. Diarrhea. 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 Improved after Questran restarted. C. Diff negative.better 2. Diabetes mellitus. 3. Renal failure. 4. Coronary artery disease. 5. Hypertension. 6.pain lower extremity, 7.rt common femoral artery pseudo aneurysm,rt FV dvt,now on Eliquis 7.left lower extremity angioplasty and stenting,pain better 9.scrotal swelling Plan continue Questran pain management Eliquis antibiotics as per ID monitor for g.i. bleeding Consultation Date/Type/Reason Admit Date/Time Jul 11, 2016 at 12:19 Type of Consultation: Rheum 24 HR Interval Summary Free Text/Dictation leg pain better Constitutional: improved Exam/Review of Systems Vital Signs Vitals Vital Signs Date Time Temp Pulse Resp B/P Pulse Ox O2 Delivery O2 Flow Rate FiO2 08/05/16 09:15 81 08/05/16 08:27 98.2 20 163/75 95 08/04/16 20:00 Room Air Intake and Output 08/04/16 08/04/16 08/05/16 15:00 23:00 07:00 Intake Total 1000 ml 800 ml Output Total 250 ml 400 ml Balance 750 ml 400 ml Exam Constitutional: alert, oriented, well developed Psych: nl mood/affect, no complaints Head: atraumatic, normocephalic Eyes: EOMI, PERRL, nl conjunctiva, nl lids, nl sclera ENMT: nl external ears & nose, nl lips & teeth, nl nasal mucosa & septum Neck: non-tender, supple Respiratory: clear to auscultation, normal air movement Cardiovascular: nl pulses, regular rate and rhythm Gastrointestinal: nl liver, spleen, non-tender, soft Musculoskeletal: nl extremities to inspection, nl gait and stance Extremities: normal pulses 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: DIGITAL X RAY SERVICE ENGINEER II-XII intact, nl mental status, nl speech, nl strength Skin: nl turgor, No rash or lesions Lymph: nl lymph nodes Results Result Diagram: 08/05/16 0550 08/05/16 0550 Results 24 hrs Laboratory Tests Test 08/04/16 11:39 08/04/16 14:36 08/04/16 17:09 08/04/16 20:28 Bedside Glucose 118 157 150 294 H Test 08/05/16 01:21 08/05/16 05:50 08/05/16 08:02 Bedside Glucose 173 165 Anion Gap 20 H Basophils # 0.1 Basophils % 0.8 Blood Morphology Comment Blood Urea Nitrogen 72 H Calcium Level 8.1 L Carbon Dioxide Level 21 Chloride Level 99 Creatinine 9.01 H Eosinophils # 0.7 H Eosinophils % 10.0 H Glucose Level 131 # Hematocrit 26.7 L Hemoglobin 9.0 L Lymphocytes # 0.9 Lymphocytes % 12.3 L Mean Corpuscular Hemoglobin 30.4 Mean Corpuscular Hemoglobin Concent 33.8 Mean Corpuscular Volume 89.9 Mean Platelet Volume 9.4 Monocytes # 0.7 Monocytes % 10.2 Neutrophils # 4.8 Neutrophils % 66.7 Nucleated Red Blood Cells # 0.0 Nucleated Red Blood Cells % 0.0 Platelet Count 296 Potassium Level 4.7 Red Blood Count 2.97 L Red Cell Distribution Width 15.8 H Sodium Level 135 White Blood Count 7.1 Medications Medications Current Medications Diphenhydramine HCl (Benadryl) 50 mg Q6H PRN IV ITCHING Last administered on 10:25; Admin Dose 50 MG; Start 07/09/16 at 17:00 Miscellaneous Information 1 ea NOTE XX ; Start 07/09/16 at 18:30 Glucose (Glutose) 15 gm Q15M PRN PO DECREASED GLUCOSE; Start 07/09/16 at 18:30 Glucose (Glutose) 22.5 gm Q15M PRN PO DECREASED GLUCOSE; Start 07/09/16 at 18: 30 Dextrose (D50w Syringe) 25 ml Q15M PRN IV DECREASED GLUCOSE Last administered on 08/01/16 16:05; Admin Dose 25 ML; Start 07/09/16 at 18:30 Dextrose (D50w Syringe) 50 ml Q15M PRN IV DECREASED GLUCOSE Last administered on 07/19/16 20:58; Admin Dose 50 ML; Start 07/09/16 at 18:30 Glucagon (Glucagen) 1 mg Q15M PRN IM DECREASED GLUCOSE; Start 07/09/16 at 18:30 Glucose (Glutose) 15 gm Q15M PRN BUCCAL DECREASED GLUCOSE; Start 07/09/16 at 18 :30 Aspirin (Halfprin) 81 mg DAILY PO Last administered on 08/05/16 08:18; Admin Dose 81 MG; Start 07/10/16 at 09:00 Atorvastatin Calcium (Lipitor) 80 mg QHS PO Last administered on 08/04/16 20: 30; Admin Dose 80 MG; Start 07/10/16 at 21:00 Clonidine (Catapres) 0.1 mg Q6 PO Last administered on 08/05/16 06:56; Admin Dose 0.1 MG; Start 07/10/16 at 12:00 Isosorbide Mononitrate (Imdur) 60 mg DAILY PO Last administered on 08/04/16 08 :28; Admin Dose 60 MG; Start 07/10/16 at 10:00 Lactobacillus Acidoph/Bulgaricus (Floranex) 1 tab TID PO Last administered on 08:19; Admin Dose 1 TAB; Start 07/10/16 at 09:00 Metoprolol Succinate (Toprol Xl) 50 mg BID PO Last administered on 08/04/16 20 :34; Admin Dose 50 MG; Start 07/10/16 at 10:00 Prasugrel (Effient) 10 mg DAILY PO Last administered on 08/05/16 08:18; Admin Dose 10 MG; Start 07/10/16 at 10:30 Acetaminophen (Tylenol Tab) 500 mg Q4H PRN PO PAIN AND OR ELEVATED TEMP Last administered on 07/30/16 20:06; Admin Dose 500 MG; Start 07/10/16 at 09:00 Cholestyramine Resin (Questran Light) 4 gm BID PO Last administered on 08:46; Admin Dose 4 GM; Start 07/11/16 at 09:00 Pantoprazole (Protonix Tab) 40 mg DAILY@06 PO Last administered on 08/05/16 06 :55; Admin Dose 40 MG; Start 07/16/16 at 06:00 Calcitriol (Rocaltrol) 0.5 mcg DAILY PO Last administered on 08/05/16 08:18; Admin Dose 0.5 MCG; Start 07/24/16 at 10:00 Ondansetron HCl (Zofran Inj) 4 mg Q4H PRN IV NAUSEA AND/OR VOMITING; Start 03/31 at 16:00 Hydromorphone HCl (Dilaudid) 2 mg Q3H PRN IV PAIN Last administered on 10:25; Admin Dose 2 MG; Start 07/27/16 at 23:30 Apixaban (Eliquis) 2.5 mg BID PO Last administered on 08/05/16 08:18; Admin Dose 2.5 MG; Start 07/30/16 at 21:00 Gabapentin (Neurontin) 800 mg TID PO Last administered on 08/05/16 08:18; Admin Dose 800 MG; Start 07/31/16 at 21:00 Diagnostic Test (Pha) (Accucheck) 1 ea 09,14,20 XX Last administered on 20:29; Admin Dose 1 EA; Start 08/04/16 at 14:00 NIYAH REED MD Aug 05, 2016 10:34
--- NOTE | 2016-08-05 12:32 | PN ---
DATE: 08/05/2016 SUBJECTIVE: No acute events. The patient is in hemodialysis. No fevers, no distress. LABORATORY DATA: WBC 7.1, no shift, no bands. INDWELLINGS: He has a left upper extremity AV graft, left chest Port-A-Cath. PHYSICAL EXAMINATION: GENERAL: Ill-appearing, middle-aged white man who is in no distress. HEENT: Head atraumatic, normocephalic. Sclerae anicteric. Buccal mucosa dry. NECK: Supple, trachea midline. CHEST: Rise symmetrical. Breath sounds diminished to bases. HEART: S1, S2. ABDOMEN: Soft, bowel sounds present. EXTREMITIES: No cyanosis. ASSESSMENT: 1. Status post right groin cellulitis with scrotal edema. 2. Status post right common iliac artery pseudoaneurysm repair. 3. End-stage renal disease, hemodialysis dependent. 4. Legally blind. 5. Diabetes. 6. History of Clostridium difficile. PLAN: The patient remains stable off antibiotics. Continue present care, scrotal elevation. Andreea w recommendations of . Dictated By: BIJAN LONGO MANIFEST CLERK for [employer] Conf#: [id number] DID#: [id number]
[2016-08-05] MEDS: PATIROMER CALCIUM SORBITEX 16.8 GM PKT PO SCH (12:37)
--- NOTE | 2016-08-05 13:19 | CONS ---
Date/Time of Note Date/Time of Note DATE: 08/05/16 TIME: 13:17 Consult Date/Type/Reason Admit Date/Time Jul 11, 2016 at 12:19 Type of Consultation: Rheum Subjective Continues to feel less pain at legs. Anxious to go to Rehab. Objective Alert, oriented chest clear Heart RRR Abd - soft. Ext - No synovitis Neurol Less tenderness legs Vital Signs Date Time Temp Pulse Resp B/P Pulse Ox O2 Delivery O2 Flow Rate FiO2 08/05/16 10:45 80 08/05/16 08:27 98.2 20 163/75 95 08/04/16 20:00 Room Air Intake and Output 08/04/16 08/04/16 08/05/16 15:00 23:00 07:00 Intake Total 1000 ml 800 ml Output Total 250 ml 400 ml Balance 750 ml 400 ml Results/Medications Result Diagram: 08/05/16 0550 08/05/16 0550 Results 24 hrs Laboratory Tests Test 08/04/16 14:36 08/04/16 17:09 08/04/16 20:28 08/05/16 01:21 Bedside Glucose 157 150 294 H 173 Test 08/05/16 05:50 08/05/16 08:02 08/05/16 12:25 Anion Gap 20 H Basophils # 0.1 Basophils % 0.8 Blood Morphology Comment Blood Urea Nitrogen 72 H Calcium Level 8.1 L Carbon Dioxide Level 21 Chloride Level 99 Creatinine 9.01 H Eosinophils # 0.7 H Eosinophils % 10.0 H Glucose Level 131 # Hematocrit 26.7 L Hemoglobin 9.0 L Lymphocytes # 0.9 Lymphocytes % 12.3 L Mean Corpuscular Hemoglobin 30.4 Mean Corpuscular Hemoglobin Concent 33.8 Mean Corpuscular Volume 89.9 Mean Platelet Volume 9.4 Monocytes # 0.7 Monocytes % 10.2 Neutrophils # 4.8 Neutrophils % 66.7 Nucleated Red Blood Cells # 0.0 Nucleated Red Blood Cells % 0.0 Platelet Count 296 Potassium Level 4.7 Red Blood Count 2.97 L Red Cell Distribution Width 15.8 H Sodium Level 135 White Blood Count 7.1 Bedside Glucose 165 202 Medications Current Medications Diphenhydramine HCl (Benadryl) 50 mg Q6H PRN IV ITCHING Last administered on t 10:25; Admin Dose 50 MG; Start 07/09/16 at 17:00 Miscellaneous Information 1 ea NOTE XX ; Start 07/09/16 at 18:30 Glucose (Glutose) 15 gm Q15M PRN PO DECREASED GLUCOSE; Start 07/09/16 at 18:30 Glucose (Glutose) 22.5 gm Q15M PRN PO DECREASED GLUCOSE; Start 07/09/16 at 18: 30 Dextrose (D50w Syringe) 25 ml Q15M PRN IV DECREASED GLUCOSE Last administered on 08/01/16 16:05; Admin Dose 25 ML; Start 07/09/16 at 18:30 Dextrose (D50w Syringe) 50 ml Q15M PRN IV DECREASED GLUCOSE Last administered on 07/19/16 20:58; Admin Dose 50 ML; Start 07/09/16 at 18:30 Glucagon (Glucagen) 1 mg Q15M PRN IM DECREASED GLUCOSE; Start 07/09/16 at 18:30 Glucose (Glutose) 15 gm Q15M PRN BUCCAL DECREASED GLUCOSE; Start 07/09/16 at 18 :30 Aspirin (Halfprin) 81 mg DAILY PO Last administered on 08/05/16 08:18; Admin Dose 81 MG; Start 07/10/16 at 09:00 Atorvastatin Calcium (Lipitor) 80 mg QHS PO Last administered on 08/04/16 20: 30; Admin Dose 80 MG; Start 07/10/16 at 21:00 Clonidine (Catapres) 0.1 mg Q6 PO Last administered on 08/05/16 06:56; Admin Dose 0.1 MG; Start 07/10/16 at 12:00 Isosorbide Mononitrate (Imdur) 60 mg DAILY PO Last administered on 08/04/16 08 :28; Admin Dose 60 MG; Start 07/10/16 at 10:00 Lactobacillus Acidoph/Bulgaricus (Floranex) 1 tab TID PO Last administered on 08:19; Admin Dose 1 TAB; Start 07/10/16 at 09:00 Metoprolol Succinate (Toprol Xl) 50 mg BID PO Last administered on 08/04/16 20 :34; Admin Dose 50 MG; Start 07/10/16 at 10:00 Prasugrel (Effient) 10 mg DAILY PO Last administered on 08/05/16 08:18; Admin Dose 10 MG; Start 07/10/16 at 10:30 Acetaminophen (Tylenol Tab) 500 mg Q4H PRN PO PAIN AND OR ELEVATED TEMP Last administered on 07/30/16 20:06; Admin Dose 500 MG; Start 07/10/16 at 09:00 Cholestyramine Resin (Questran Light) 4 gm BID PO Last administered on 08:46; Admin Dose 4 GM; Start 07/11/16 at 09:00 Pantoprazole (Protonix Tab) 40 mg DAILY@06 PO Last administered on 08/05/16 06 :55; Admin Dose 40 MG; Start 07/16/16 at 06:00 Calcitriol (Rocaltrol) 0.5 mcg DAILY PO Last administered on 08/05/16 08:18; Admin Dose 0.5 MCG; Start 07/24/16 at 10:00 Ondansetron HCl (Zofran Inj) 4 mg Q4H PRN IV NAUSEA AND/OR VOMITING; Start 03/31 at 16:00 Hydromorphone HCl (Dilaudid) 2 mg Q3H PRN IV PAIN Last administered on 10:25; Admin Dose 2 MG; Start 07/27/16 at 23:30 Apixaban (Eliquis) 2.5 mg BID PO Last administered on 08/05/16 08:18; Admin Dose 2.5 MG; Start 07/30/16 at 21:00 Gabapentin (Neurontin) 800 mg TID PO Last administered on 08/05/16 08:18; Admin Dose 800 MG; Start 07/31/16 at 21:00 Diagnostic Test (Pha) (Accucheck) 1 ea 09,14,20 XX Last administered on 20:29; Admin Dose 1 EA; Start 08/04/16 at 14:00 Assessment/Plan Chief Complaint/Hosp Course Ass 1. Leg pain. Neuropathic in part, responding to Gabapentin. 2. Marked peripheral arterial disease. 3. Possible right lumbar radiculopathy, long standing 4. Renal Failure 5. Diabetes Mellitus 6. Right common femoral vein DVT 7. S/p repair of pseudoaneurism right groin. Rec. Continue Gabapentin at night to 800 mg tid. Increase ambulation as tolerated. Problems: ENMA GRAHAM MD Aug 05, 2016 13:19
--- NOTE | 2016-08-05 14:09 | CONS ---
Date/Time of Note Date/Time of Note DATE: 08/05/16 TIME: 14:03 Assessment/Plan Assessment/Plan Chief Complaint/Hosp Course #1 end-stage renal disease, on maintenance hemodialysis Thursday. He had hemodialysis today . . #2 bilateral foot pain #3 anemia. H/H is drifting down . #4 hyperkalemia . He is taking Veltassa for elevated K . He is on increased dose of the the Veltassa to 16.8 gm a day .potassium is under control . 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 He has an infection at the surgical site and is on antibiotics . #6 He has a DVT in his proximal R femoral vein and is on Eliquis . 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 He has not been up walking because of multiple surgeries . He needs to have intense physical therapy and would benefit from a comprehensive rehabilitation program . Problems: Consultation Date/Type/Reason Admit Date/Time Jul 11, 2016 at 12:19 Type of Consultation: Rheum 24 HR Interval Summary Free Text/Dictation He had a hemodialysis treatment this morning .He has no new complaints . Exam/Review of Systems Vital Signs Vitals Vital Signs Date Time Temp Pulse Resp B/P Pulse Ox O2 Delivery O2 Flow Rate FiO2 08/05/16 10:45 80 08/05/16 08:27 98.2 20 163/75 95 08/04/16 20:00 Room Air Intake and Output 08/04/16 08/04/16 08/05/16 15:00 23:00 07:00 Intake Total 1000 ml 800 ml Output Total 250 ml 400 ml Balance 750 ml 400 ml Exam Constitutional: alert, oriented Psych: no complaints Respiratory: clear to auscultation, normal air movement Cardiovascular: nl pulses, regular rate and rhythm Musculoskeletal: muscle weakness Results Result Diagram: 08/05/16 0550 08/05/16 0550 Results 24 hrs Laboratory Tests Test 08/04/16 14:36 08/04/16 17:09 08/04/16 20:28 08/05/16 01:21 Bedside Glucose 157 150 294 H 173 Test 08/05/16 05:50 08/05/16 08:02 08/05/16 12:25 Anion Gap 20 H Basophils # 0.1 Basophils % 0.8 Blood Morphology Comment Blood Urea Nitrogen 72 H Calcium Level 8.1 L Carbon Dioxide Level 21 Chloride Level 99 Creatinine 9.01 H Eosinophils # 0.7 H Eosinophils % 10.0 H Glucose Level 131 # Hematocrit 26.7 L Hemoglobin 9.0 L Lymphocytes # 0.9 Lymphocytes % 12.3 L Mean Corpuscular Hemoglobin 30.4 Mean Corpuscular Hemoglobin Concent 33.8 Mean Corpuscular Volume 89.9 Mean Platelet Volume 9.4 Monocytes # 0.7 Monocytes % 10.2 Neutrophils # 4.8 Neutrophils % 66.7 Nucleated Red Blood Cells # 0.0 Nucleated Red Blood Cells % 0.0 Platelet Count 296 Potassium Level 4.7 Red Blood Count 2.97 L Red Cell Distribution Width 15.8 H Sodium Level 135 White Blood Count 7.1 Bedside Glucose 165 202 Medications Medications Current Medications Diphenhydramine HCl (Benadryl) 50 mg Q6H PRN IV ITCHING Last administered on 10:25; Admin Dose 50 MG; Start 07/09/16 at 17:00 Miscellaneous Information 1 ea NOTE XX ; Start 07/09/16 at 18:30 Glucose (Glutose) 15 gm Q15M PRN PO DECREASED GLUCOSE; Start 07/09/16 at 18:30 Glucose (Glutose) 22.5 gm Q15M PRN PO DECREASED GLUCOSE; Start 07/09/16 at 18: 30 Dextrose (D50w Syringe) 25 ml Q15M PRN IV DECREASED GLUCOSE Last administered on 08/01/16 16:05; Admin Dose 25 ML; Start 07/09/16 at 18:30 Dextrose (D50w Syringe) 50 ml Q15M PRN IV DECREASED GLUCOSE Last administered on 07/19/16 20:58; Admin Dose 50 ML; Start 07/09/16 at 18:30 Glucagon (Glucagen) 1 mg Q15M PRN IM DECREASED GLUCOSE; Start 07/09/16 at 18:30 Glucose (Glutose) 15 gm Q15M PRN BUCCAL DECREASED GLUCOSE; Start 07/09/16 at 18 :30 Aspirin (Halfprin) 81 mg DAILY PO Last administered on 08/05/16 08:18; Admin Dose 81 MG; Start 07/10/16 at 09:00 Atorvastatin Calcium (Lipitor) 80 mg QHS PO Last administered on 08/04/16 20: 30; Admin Dose 80 MG; Start 07/10/16 at 21:00 Clonidine (Catapres) 0.1 mg Q6 PO Last administered on 08/05/16 06:56; Admin Dose 0.1 MG; Start 07/10/16 at 12:00 Isosorbide Mononitrate (Imdur) 60 mg DAILY PO Last administered on 08/04/16 08 :28; Admin Dose 60 MG; Start 07/10/16 at 10:00 Lactobacillus Acidoph/Bulgaricus (Floranex) 1 tab TID PO Last administered on 12:30; Admin Dose 1 TAB; Start 07/10/16 at 09:00 Metoprolol Succinate (Toprol Xl) 50 mg BID PO Last administered on 08/04/16 20 :34; Admin Dose 50 MG; Start 07/10/16 at 10:00 Prasugrel (Effient) 10 mg DAILY PO Last administered on 08/05/16 08:18; Admin Dose 10 MG; Start 07/10/16 at 10:30 Acetaminophen (Tylenol Tab) 500 mg Q4H PRN PO PAIN AND OR ELEVATED TEMP Last administered on 07/30/16 20:06; Admin Dose 500 MG; Start 07/10/16 at 09:00 Cholestyramine Resin (Questran Light) 4 gm BID PO Last administered on 08:46; Admin Dose 4 GM; Start 07/11/16 at 09:00 Pantoprazole (Protonix Tab) 40 mg DAILY@06 PO Last administered on 08/05/16 06 :55; Admin Dose 40 MG; Start 07/16/16 at 06:00 Calcitriol (Rocaltrol) 0.5 mcg DAILY PO Last administered on 08/05/16 08:18; Admin Dose 0.5 MCG; Start 07/24/16 at 10:00 Ondansetron HCl (Zofran Inj) 4 mg Q4H PRN IV NAUSEA AND/OR VOMITING; Start 03/31 at 16:00 Hydromorphone HCl (Dilaudid) 2 mg Q3H PRN IV PAIN Last administered on 10:25; Admin Dose 2 MG; Start 07/27/16 at 23:30 Apixaban (Eliquis) 2.5 mg BID PO Last administered on 08/05/16 08:18; Admin Dose 2.5 MG; Start 07/30/16 at 21:00 Gabapentin (Neurontin) 800 mg TID PO Last administered on 08/05/16 12:30; Admin Dose 800 MG; Start 07/31/16 at 21:00 Diagnostic Test (Pha) (Accucheck) 1 ea 09,14,20 XX Last administered on 20:29; Admin Dose 1 EA; Start 08/04/16 at 14:00 DONY HOWARD MD Aug 05, 2016 14:09
--- NOTE | 2016-08-05 16:11 | CONS ---
Date/Time of Note Date/Time of Note DATE: 08/05/16 TIME: 16:07 Assessment/Plan Assessment/Plan Problems: (1) Diabetes mellitus type 1 with complications Status: Chronic Comment: Good glycemic control with change back from MDI back to pump therapy. Consultation Date/Type/Reason Admit Date/Time Jul 11, 2016 at 12:19 Initial Consult Date 07/29/16 Type of Consultation: Endocrine 24 HR Interval Summary Free Text/Dictation Patient a bit depressed today having to spen birthday in the hospital. Exam/Review of Systems Vital Signs Vitals Vital Signs Date Time Temp Pulse Resp B/P Pulse Ox O2 Delivery O2 Flow Rate FiO2 08/05/16 10:45 80 08/05/16 08:27 98.2 20 163/75 95 08/04/16 20:00 Room Air Intake and Output 08/04/16 08/04/16 08/05/16 15:00 23:00 07:00 Intake Total 1000 ml 800 ml Output Total 250 ml 400 ml Balance 750 ml 400 ml Exam Constitutional: alert, oriented Eyes: other (blind with prosthetic) Neck: supple Respiratory: clear to auscultation Cardiovascular: regular rate and rhythm Gastrointestinal: soft Musculoskeletal: nl extremities to inspection Extremities: normal pulses Results POC glucose, labs and vitals reviewed Result Diagram: 08/05/16 0550 08/05/16 0550 Results 24 hrs Laboratory Tests Test 08/04/16 17:09 08/04/16 20:28 08/05/16 01:21 08/05/16 05:50 Bedside Glucose 150 294 H 173 Anion Gap 20 H Basophils # 0.1 Basophils % 0.8 Blood Morphology Comment Blood Urea Nitrogen 72 H Calcium Level 8.1 L Carbon Dioxide Level 21 Chloride Level 99 Creatinine 9.01 H Eosinophils # 0.7 H Eosinophils % 10.0 H Glucose Level 131 # Hematocrit 26.7 L Hemoglobin 9.0 L Lymphocytes # 0.9 Lymphocytes % 12.3 L Mean Corpuscular Hemoglobin 30.4 Mean Corpuscular Hemoglobin Concent 33.8 Mean Corpuscular Volume 89.9 Mean Platelet Volume 9.4 Monocytes # 0.7 Monocytes % 10.2 Neutrophils # 4.8 Neutrophils % 66.7 Nucleated Red Blood Cells # 0.0 Nucleated Red Blood Cells % 0.0 Platelet Count 296 Potassium Level 4.7 Red Blood Count 2.97 L Red Cell Distribution Width 15.8 H Sodium Level 135 White Blood Count 7.1 Test 08/05/16 08:02 08/05/16 12:25 08/05/16 14:05 Bedside Glucose 165 202 313 H Medications Medications Current Medications Diphenhydramine HCl (Benadryl) 50 mg Q6H PRN IV ITCHING Last administered on 10:25; Admin Dose 50 MG; Start 07/09/16 at 17:00 Miscellaneous Information 1 ea NOTE XX ; Start 07/09/16 at 18:30 Glucose (Glutose) 15 gm Q15M PRN PO DECREASED GLUCOSE; Start 07/09/16 at 18:30 Glucose (Glutose) 22.5 gm Q15M PRN PO DECREASED GLUCOSE; Start 07/09/16 at 18: 30 Dextrose (D50w Syringe) 25 ml Q15M PRN IV DECREASED GLUCOSE Last administered on 08/01/16 16:05; Admin Dose 25 ML; Start 07/09/16 at 18:30 Dextrose (D50w Syringe) 50 ml Q15M PRN IV DECREASED GLUCOSE Last administered on 07/19/16 20:58; Admin Dose 50 ML; Start 07/09/16 at 18:30 Glucagon (Glucagen) 1 mg Q15M PRN IM DECREASED GLUCOSE; Start 07/09/16 at 18:30 Glucose (Glutose) 15 gm Q15M PRN BUCCAL DECREASED GLUCOSE; Start 07/09/16 at 18 :30 Aspirin (Halfprin) 81 mg DAILY PO Last administered on 08/05/16 08:18; Admin Dose 81 MG; Start 07/10/16 at 09:00 Atorvastatin Calcium (Lipitor) 80 mg QHS PO Last administered on 08/04/16 20: 30; Admin Dose 80 MG; Start 07/10/16 at 21:00 Clonidine (Catapres) 0.1 mg Q6 PO Last administered on 08/05/16 06:56; Admin Dose 0.1 MG; Start 07/10/16 at 12:00 Isosorbide Mononitrate (Imdur) 60 mg DAILY PO Last administered on 08/04/16 08 :28; Admin Dose 60 MG; Start 07/10/16 at 10:00 Lactobacillus Acidoph/Bulgaricus (Floranex) 1 tab TID PO Last administered on 12:30; Admin Dose 1 TAB; Start 07/10/16 at 09:00 Metoprolol Succinate (Toprol Xl) 50 mg BID PO Last administered on 08/04/16 20 :34; Admin Dose 50 MG; Start 07/10/16 at 10:00 Prasugrel (Effient) 10 mg DAILY PO Last administered on 08/05/16 08:18; Admin Dose 10 MG; Start 07/10/16 at 10:30 Acetaminophen (Tylenol Tab) 500 mg Q4H PRN PO PAIN AND OR ELEVATED TEMP Last administered on 07/30/16 20:06; Admin Dose 500 MG; Start 07/10/16 at 09:00 Cholestyramine Resin (Questran Light) 4 gm BID PO Last administered on 08:46; Admin Dose 4 GM; Start 07/11/16 at 09:00 Pantoprazole (Protonix Tab) 40 mg DAILY@06 PO Last administered on 08/05/16 06 :55; Admin Dose 40 MG; Start 07/16/16 at 06:00 Calcitriol (Rocaltrol) 0.5 mcg DAILY PO Last administered on 08/05/16 08:18; Admin Dose 0.5 MCG; Start 07/24/16 at 10:00 Ondansetron HCl (Zofran Inj) 4 mg Q4H PRN IV NAUSEA AND/OR VOMITING; Start 03/31 at 16:00 Hydromorphone HCl (Dilaudid) 2 mg Q3H PRN IV PAIN Last administered on 14:01; Admin Dose 2 MG; Start 07/27/16 at 23:30 Apixaban (Eliquis) 2.5 mg BID PO Last administered on 08/05/16 08:18; Admin Dose 2.5 MG; Start 07/30/16 at 21:00 Gabapentin (Neurontin) 800 mg TID PO Last administered on 08/05/16 12:30; Admin Dose 800 MG; Start 07/31/16 at 21:00 Diagnostic Test (Pha) (Accucheck) 1 ea 09,14,20 XX Last administered on 14:06; Admin Dose 1 EA; Start 08/04/16 at 14:00 KALPANA MARTINEZ MD Aug 05, 2016 16:11
--- NOTE | 2016-08-05 17:31 | PN ---
Date/Time of Note Date/Time of Note DATE: 08/05/16 TIME: 17:30 Assessment/Plan VTE Prophylaxis VTE Prophylaxis Intervention: SCD's Lines/Catheters IV [facility] port Urinary Cath still in place: No Assessment/Plan Chief Complaint/Hosp Course ASSESSMENT AND PLAN: 1. Diarrhea with recent history of Clostridium difficile colitis, resolved. Dr. Gomez is following in gastroenterology consultation 2. Dehydration secondary to diarrhea with recent history of Clostridium difficile colitis. Stool for C. difficile is negative. 3. Type 1 diabetes mellitus with diabetic nephropathy. Continue NovoLog per insulin pump. Dr. Haddad is following an endocrinology consultation. 4. End-stage renal disease, hemodialysis dependent. Dr. Hubbard is following the patient in nephrology consultation. Continue dialysis per nephrology. 5. Coronary artery disease. Continue Imdur and metoprolol. 6. Hypertension. 7. Bilateral lower extremities pain. Dr. Orosco is following and rheumatology consultation. 8. Lateral lower extremities atherosclerosis and left lower extremity disabling claudication. is following in vascular surgery consultation. S/P angio with LLE SFA severe stenosis. S/p Left femoral popliteal stenting on 07-25, s/p Exploration of right common femoral artery and control of bleeding on 07-27. Started on Eliquis, follow-up vascular surgery recommendations. 9. Scrotal edema. Dr. Pagan is following in urology consultation. SNIF placement for rehabilitation Continue heparin for deep venous thrombosis prophylaxis and Pepcid for peptic ulcer disease prophylaxis. Further recommendations based on clinical course. Plan of care discussed with Dr. Rosales. Problems: Exam/Review of Systems Vital Signs Vitals Vital Signs Date Time Temp Pulse Resp B/P Pulse Ox O2 Delivery O2 Flow Rate FiO2 08/05/16 10:45 80 08/05/16 08:27 98.2 20 163/75 95 08/04/16 20:00 Room Air Intake and Output 08/04/16 08/04/16 08/05/16 15:00 23:00 07:00 Intake Total 1000 ml 800 ml Output Total 250 ml 400 ml Balance 750 ml 400 ml Exam GENERAL: Well-developed, well-nourished male, currently appears pale, awake, alert. HEENT: The patient has right eye prosthesis. Left pupil is equal, round, reactive to light and accommodation. NECK: Supple. No cervical lymphadenopathy, no thyromegaly. CHEST: Lungs clear bilaterally. There are no rhonchi, wheezes, rales noted. CARDIOVASCULAR: Normal S1, S2. No murmurs, gallops, clicks, rubs noted. ABDOMEN: Flat, soft, nondistended. The patient has generalized tenderness to epigastric tenderness on palpation. No guarding. EXTREMITIES: No edema, clubbing, cyanosis. Left upper extremity AV graft with a palpable thrill and audible bruit. Right lower extremity status post surgical intervention. SKIN: No rash, petechiae noted. NEUROLOGIC: The patient is awake, alert, and oriented x3. Results Result Diagram: 08/05/16 0550 08/05/16 0550 Results 24 hrs Laboratory Tests Test 08/04/16 20:28 08/05/16 01:21 08/05/16 05:50 08/05/16 08:02 Bedside Glucose 294 H 173 165 Anion Gap 20 H Basophils # 0.1 Basophils % 0.8 Blood Morphology Comment Blood Urea Nitrogen 72 H Calcium Level 8.1 L Carbon Dioxide Level 21 Chloride Level 99 Creatinine 9.01 H Eosinophils # 0.7 H Eosinophils % 10.0 H Glucose Level 131 # Hematocrit 26.7 L Hemoglobin 9.0 L Lymphocytes # 0.9 Lymphocytes % 12.3 L Mean Corpuscular Hemoglobin 30.4 Mean Corpuscular Hemoglobin Concent 33.8 Mean Corpuscular Volume 89.9 Mean Platelet Volume 9.4 Monocytes # 0.7 Monocytes % 10.2 Neutrophils # 4.8 Neutrophils % 66.7 Nucleated Red Blood Cells # 0.0 Nucleated Red Blood Cells % 0.0 Platelet Count 296 Potassium Level 4.7 Red Blood Count 2.97 L Red Cell Distribution Width 15.8 H Sodium Level 135 White Blood Count 7.1 Test 08/05/16 12:25 08/05/16 14:05 08/05/16 17:21 Bedside Glucose 202 313 H 168 Medications Medications Current Medications Diphenhydramine HCl (Benadryl) 50 mg Q6H PRN IV ITCHING Last administered on t 17:07; Admin Dose 50 MG; Start 07/09/16 at 17:00 Miscellaneous Information 1 ea NOTE XX ; Start 07/09/16 at 18:30 Glucose (Glutose) 15 gm Q15M PRN PO DECREASED GLUCOSE; Start 07/09/16 at 18:30 Glucose (Glutose) 22.5 gm Q15M PRN PO DECREASED GLUCOSE; Start 07/09/16 at 18: 30 Dextrose (D50w Syringe) 25 ml Q15M PRN IV DECREASED GLUCOSE Last administered on 08/01/16 16:05; Admin Dose 25 ML; Start 07/09/16 at 18:30 Dextrose (D50w Syringe) 50 ml Q15M PRN IV DECREASED GLUCOSE Last administered on 07/19/16 20:58; Admin Dose 50 ML; Start 07/09/16 at 18:30 Glucagon (Glucagen) 1 mg Q15M PRN IM DECREASED GLUCOSE; Start 07/09/16 at 18:30 Glucose (Glutose) 15 gm Q15M PRN BUCCAL DECREASED GLUCOSE; Start 07/09/16 at 18 :30 Aspirin (Halfprin) 81 mg DAILY PO Last administered on 08/05/16 08:18; Admin Dose 81 MG; Start 07/10/16 at 09:00 Atorvastatin Calcium (Lipitor) 80 mg QHS PO Last administered on 08/04/16 20: 30; Admin Dose 80 MG; Start 07/10/16 at 21:00 Clonidine (Catapres) 0.1 mg Q6 PO Last administered on 08/05/16 17:16; Admin Dose 0.1 MG; Start 07/10/16 at 12:00 Isosorbide Mononitrate (Imdur) 60 mg DAILY PO Last administered on 08/04/16 08 :28; Admin Dose 60 MG; Start 07/10/16 at 10:00 Lactobacillus Acidoph/Bulgaricus (Floranex) 1 tab TID PO Last administered on 12:30; Admin Dose 1 TAB; Start 07/10/16 at 09:00 Metoprolol Succinate (Toprol Xl) 50 mg BID PO Last administered on 08/04/16 20 :34; Admin Dose 50 MG; Start 07/10/16 at 10:00 Prasugrel (Effient) 10 mg DAILY PO Last administered on 08/05/16 08:18; Admin Dose 10 MG; Start 07/10/16 at 10:30 Acetaminophen (Tylenol Tab) 500 mg Q4H PRN PO PAIN AND OR ELEVATED TEMP Last administered on 07/30/16 20:06; Admin Dose 500 MG; Start 07/10/16 at 09:00 Cholestyramine Resin (Questran Light) 4 gm BID PO Last administered on 08:46; Admin Dose 4 GM; Start 07/11/16 at 09:00 Pantoprazole (Protonix Tab) 40 mg DAILY@06 PO Last administered on 08/05/16 06 :55; Admin Dose 40 MG; Start 07/16/16 at 06:00 Calcitriol (Rocaltrol) 0.5 mcg DAILY PO Last administered on 08/05/16 08:18; Admin Dose 0.5 MCG; Start 07/24/16 at 10:00 Ondansetron HCl (Zofran Inj) 4 mg Q4H PRN IV NAUSEA AND/OR VOMITING; Start 03/31 at 16:00 Hydromorphone HCl (Dilaudid) 2 mg Q3H PRN IV PAIN Last administered on 17:07; Admin Dose 2 MG; Start 07/27/16 at 23:30 Apixaban (Eliquis) 2.5 mg BID PO Last administered on 08/05/16 08:18; Admin Dose 2.5 MG; Start 07/30/16 at 21:00 Gabapentin (Neurontin) 800 mg TID PO Last administered on 08/05/16 12:30; Admin Dose 800 MG; Start 07/31/16 at 21:00 Diagnostic Test (Pha) (Accucheck) 1 ea 09,14,20 XX Last administered on 14:06; Admin Dose 1 EA; Start 08/04/16 at 14:00 ANGELINA CASTREJON Aug 05, 2016 17:31
--- NOTE | 2016-08-05 17:37 | PSY ---
Date/Time of Note Date/Time of Note DATE: 08/05/16 TIME: 17:29 Psychiatric Subjective Eval Consent Pt consented to telemedicine: Yes Subjective Evaluation Patient location: inpatient Chief Complaint: DIARRHEA SINCE THIS MORNING NO BLEEDING. MILD ABDOMINAL PAIN Reason for consult: depression History of present illness 51 yo male with multiple medical problems (DM, ESRD, legal blindness, peripheral neuropathy, CAD) c/o depressed mood. Reprot provided by EVELINE Bhatia. Pt denies any SI, he states, he is stressed out about his health issues, pain and marital problems. He says he wants to be alive because he has 2 young children. He states he felt hopeless in the past but he is future oriented overall, he reprots good sleep and good appetite. He denies ah or vh. he reports low energy and low motivation. No meds for depression. Past psychiatric history none Family History Problems Family History Problems: (1) Family history of cardiac disorder Relations: 33 FATHER; 32 MOTHER, onset: 60 years & older (2) Family history of hypertension Relations: 33 FATHER, onset: 50's - 60 Medical history Problems Medical Problems: (1) Abdominal pain Status: Acute (2) Accelerated hypertension Status: Acute (3) Acute weakness Status: Acute (4) Anemia Status: Acute (5) C. difficile colitis Status: Acute (6) Chest pain Status: Acute (7) Chronic pain Status: Chronic (8) Chronic renal insufficiency Status: Chronic (9) CKD (chronic kidney disease) stage 5, GFR less than 15 ml/min Status: Chronic (10) Colitis Status: Acute (11) Complication of Foster catheter Status: Acute (12) Constipation Status: Acute (13) Diabetes mellitus type 1 with complications Status: Chronic (14) Diabetes mellitus type 1, controlled, with complications Status: Chronic (15) Diabetic ketoacidosis Status: Resolved (16) Dialysis AV fistula malfunction Status: Acute (17) Dialysis patient Status: Chronic (18) Diarrhea Status: Acute (19) Diarrhea with dehydration Status: Acute (20) Dizziness Status: Acute (21) DM (diabetes mellitus) type 1 with ketoacidosis Status: Acute (22) End stage kidney disease Status: Acute (23) End stage renal failure on dialysis Status: Chronic (24) End-stage renal disease on hemodialysis Status: Acute (25) Genitourinary symptoms Status: Acute (26) Headache Status: Acute (27) HTN (hypertension) Status: Chronic (28) Hyperglycemia without ketosis Status: Acute (29) Hyperkalemia Status: Acute (30) Hyperkalemia, diminished renal excretion Status: Acute (31) Hypertensive emergency Status: Acute (32) Hypocalcemia Status: Acute (33) Hypocalcemia Status: Chronic (34) Leg cramp Status: Acute (35) Moderate nausea Status: Acute (36) Nausea Status: Acute (37) Normal exam Status: Acute (38) Normocytic anemia Status: Acute (39) Obstruction of suprapubic catheter Status: Acute (40) Paresthesia Status: Acute (41) Paresthesias Status: Acute (42) Presence of suprapubic catheter Status: Acute (43) Retention of urine Status: Acute (44) Scrotal erythema Status: Acute (45) Shunt malfunction Status: Acute (46) Sinusitis Status: Acute (47) Swelling Status: Acute (48) 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, with long- term current use of insulin Status: Chronic (49) Type 1 diabetes mellitus with diabetic nephropathy Status: Chronic (50) Upper respiratory infection Status: Acute (51) UTI (urinary tract infection) Status: Acute (52) Vomiting Status: Acute Allergies: Coded Allergies: adhesive (Verified Allergy, Intermediate, 05/15/16) (+)itchiness/rash azithromycin (Verified Allergy, Intermediate, RASH, 05/15/16) erythromycin base (Verified Allergy, Intermediate, CRAMPS, 05/15/16) codeine (Verified Allergy, Mild, ABD. 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 [employer] Psychiatric Objective Eval Mental Status Examination: Psychomotor Activity: Normal Behavior: Cooperative Speech: Clear AFFECT: Appropriate Mood: Depressed Though Process: Linear Thought Content: Normal Suicidal: No Homicidal: No On 72 hour hold: No Orientation: x4 Cognition: Alert Insight: Intact Judgement: Intact Laboratory Results Laboratory Tests Test 08/03/16 20:45 08/04/16 05:45 08/04/16 07:48 08/04/16 11:39 Bedside Glucose 193mg/dL 107mg/dL 118mg/dL Anion Gap 21 Basophils # 0.010^3/ul Basophils % 0.4% Blood Morphology Comment Blood Urea Nitrogen 61mg/dl Calcium Level 8.2mg/dl Carbon Dioxide Level 22mmol/L Chloride Level 98mmol/L Creatinine 8.24mg/dl Eosinophils # 0.710^3/ul Eosinophils % 9.8% Glucose Level 87mg/dl Hematocrit 26.5% Hemoglobin 9.1g/dl Lymphocytes # 1.110^3/ul Lymphocytes % 14.5% Magnesium Level 2.1mg/dl Mean Corpuscular Hemoglobin 30.9pg Mean Corpuscular Hemoglobin Concent 34.4g/dl Mean Corpuscular Volume 89.7fl Mean Platelet Volume 9.6fl Monocytes # 0.810^3/ul Monocytes % 10.6% Neutrophils # 4.710^3/ul Neutrophils % 64.7% Nucleated Red Blood Cells # 0.010^3/ul Nucleated Red Blood Cells % 0.0/100WBC Phosphorus Level 4.3mg/dl Platelet Count 60813^3/UL Potassium Level 4.5mmol/L Red Blood Count 2.9510^6/ul Red Cell Distribution Width 15.3% Sodium Level 136mmol/L White Blood Count 7.310^3/ul Test 08/04/16 14:36 08/04/16 17:09 08/04/16 20:28 08/05/16 01:21 Bedside Glucose 157mg/dL 150mg/dL 294mg/dL 173mg/dL Test 08/05/16 05:50 08/05/16 08:02 08/05/16 12:25 08/05/16 14:05 Anion Gap 20 Basophils # 0.110^3/ul Basophils % 0.8% Blood Morphology Comment Blood Urea Nitrogen 72mg/dl Calcium Level 8.1mg/dl Carbon Dioxide Level 21mmol/L Chloride Level 99mmol/L Creatinine 9.01mg/dl Eosinophils # 0.710^3/ul Eosinophils % 10.0% Glucose Level 131mg/dl Hematocrit 26.7% Hemoglobin 9.0g/dl Lymphocytes # 0.910^3/ul Lymphocytes % 12.3% Mean Corpuscular Hemoglobin 30.4pg Mean Corpuscular Hemoglobin Concent 33.8g/dl Mean Corpuscular Volume 89.9fl Mean Platelet Volume 9.4fl Monocytes # 0.710^3/ul Monocytes % 10.2% Neutrophils # 4.810^3/ul Neutrophils % 66.7% Nucleated Red Blood Cells # 0.010^3/ul Nucleated Red Blood Cells % 0.0/100WBC Platelet Count 28175^3/UL Potassium Level 4.7mmol/L Red Blood Count 2.9710^6/ul Red Cell Distribution Width 15.8% Sodium Level 135mmol/L White Blood Count 7.110^3/ul Bedside Glucose 165mg/dL 202mg/dL 313mg/dL Test 08/05/16 17:21 Bedside Glucose 168mg/dL Assessment and Plan Assessment/Diagnosis [place] I: Adjustment d/o with depressed mood [place] II: defered [place] III: as per record [place] IV: severe [place] V: gaf 35 Recommendation/Plan Medication Management Please consider starting on Lexapro 5 mg poqhs. Psychotherapy refer to outpt Follow-up/Disposition no dts, dto,gd. refer to outpt mental health. MICHAEL BAZAN MD Aug 05, 2016 17:37
[2016-08-05] MEDS: ATORVASTATIN 80 MG TAB PO SCH (21:39)
[2016-08-05] MEDS: ESCITALOPRAM 10 MG TAB PO SCH (21:40)
[2016-08-06 00:05] VITALS: BP 124/72
[2016-08-06] MEDS: HYDROmorphONE 2 MG/ML SYG IV PRN ×7 (03:04→21:20)
[2016-08-06] MEDS: PANTOPRAZOLE (EC) 40 MG TAB PO SCH (05:51)
[2016-08-06] MEDS: DIPHENHYDRAMINE 50 MG INJ IV PRN ×3 (05:51→18:07)
[2016-08-06 06:49] LABS: POTASSIUM 3.9 mmol/L (3.5-5.1)
[2016-08-06 06:52] LABS: CALCIUM 8.1 mg/dl (8.4-10.2); CREATININE 7.69 mg/dl (0.61-1.24)
[2016-08-06 08:13] VITALS: BP 120/65; RESP 16
[2016-08-06] MEDS: ACCUCHECK XX SCH ×6 (08:15→20:00)
[2016-08-06 08:53] LABS: BASOPHILS % 0.7 % (0.0-2.0); EOSINOPHILS # 0.8 10^3/ul (0.0-0.5); EOSINOPHILS % 11.9 % (0.0-7.0); HEMATOCRIT 28.6 % (42.0-52.0); HEMOGLOBIN 9.6 g/dl (14.0-18.0); LYMPHOCYTES # 0.9 10^3/ul (0.8-2.9); LYMPHOCYTES % 13.7 % (15.0-51.0); MEAN CORPUSCULAR HEMOGLOBIN 30.6 pg (29.0-33.0); MEAN CORPUSCULAR HGB CONC 33.7 g/dl (32.0-37.0); MEAN CORPUSCULAR VOLUME 90.7 fl (82.0-101.0); MEAN PLATELET VOLUME 9.4 fl (7.4-10.4); MONOCYTE # 0.8 10^3/ul (0.3-0.9); MONOCYTES % 11.7 % (0.0-11.0); NEUTROPHIL # 4.2 10^3/ul (1.6-7.5); PLATELET COUNT 325 10^3/UL (140-440); RED BLOOD COUNT 3.16 10^6/ul (4.70-6.10); RED CELL DISTRIBUTION WIDTH 15.6 % (11.5-14.5); UNCORRECTED WBC 6.8 10^3/ul (4.8-10.8); WHITE BLOOD COUNT 6.8 10^3/ul (4.8-10.8)
[2016-08-06 08:59] LABS: CONDITION 1; LH ANALYZER COMMENTS 1
[2016-08-06] MEDS: CHOLESTYRAMINE (LIGHT) 4 GM PACKET PO SCH ×2 (09:00→21:15)
[2016-08-06] MEDS: SEVELAMER 800 MG TAB PO SCH ×3 (09:07→17:23)
[2016-08-06] MEDS: GABAPENTIN 400 MG CAP PO SCH ×3 (09:07→21:14)
[2016-08-06] MEDS: ISOSORBIDE MONONITRATE(SR)60 MG TAB PO SCH (09:08)
[2016-08-06] MEDS: APIXABAN 5 MG TABLET PO SCH ×2 (09:08→21:13)
[2016-08-06] MEDS: CALCITRIOL 0.25 MCG CAP PO SCH (09:08)
[2016-08-06] MEDS: PRASUGREL HYDROCHLORIDE 10 MG TABLET PO SCH (09:08)
[2016-08-06] MEDS: METOPROLOL (XL) 50 MG TAB PO SCH ×2 (09:09→21:15)
[2016-08-06] MEDS: CALCIUM ACETATE 667 MG CAP PO SCH ×3 (09:09→17:22)
[2016-08-06] MEDS: LACTOBACILLUS CHEW TAB PO SCH ×3 (09:09→21:14)
[2016-08-06] MEDS: ASPIRIN (EC) 81 MG TAB PO SCH (09:09)
--- NOTE | 2016-08-06 09:09 | CONS ---
Date/Time of Note Date/Time of Note DATE: 08/06/16 TIME: 09:04 Assessment/Plan Assessment/Plan Chief Complaint/Hosp Course #1 end-stage renal disease, on maintenance hemodialysis Thursday . Dialysis is ordered for tomorrow . #2 bilateral foot pain #3 anemia. H/H is drifting down . #4 hyperkalemia . He is taking Veltassa for elevated K . He is on increased dose of the the Veltassa to 16.8 gm a day .potassium is under control . 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 He has an infection at the surgical site and is on antibiotics . #6 He has a DVT in his proximal R femoral vein and is on Eliquis . 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 He has not been up walking because of multiple surgeries . He needs to have intense physical therapy and would benefit from a comprehensive rehabilitation program . Problems: Consultation Date/Type/Reason Admit Date/Time Jul 11, 2016 at 12:19 Type of Consultation: renal 24 HR Interval Summary Free Text/Dictation He is up walking to bathroom . He complains of R groin pain and swelling . Exam/Review of Systems Vital Signs Vitals Vital Signs Date Time Temp Pulse Resp B/P Pulse Ox O2 Delivery O2 Flow Rate FiO2 08/06/16 08:13 97.9 68 16 120/65 98 08/05/16 20:11 Room Air Intake and Output 08/05/16 08/05/16 08/06/16 15:00 23:00 07:00 Intake Total 500 ml 800 ml Output Total 3500 ml 350 ml Balance -3000 ml 450 ml Exam R groin is swollen with a bandage over wound . Constitutional: alert, oriented, well developed Respiratory: clear to auscultation Cardiovascular: regular rate and rhythm Musculoskeletal: nl extremities to inspection Results Result Diagram: 08/06/16 0620 08/06/16 0620 Results 24 hrs Laboratory Tests Test 08/05/16 12:25 08/05/16 14:05 08/05/16 17:21 08/05/16 20:07 Bedside Glucose 202 313 H 168 206 Test 08/05/16 21:36 08/06/16 06:20 08/06/16 08:02 Bedside Glucose 287 H 107 Anion Gap 21 H Basophils # 0.0 Basophils % 0.7 Blood Morphology Comment Blood Urea Nitrogen 54 H Calcium Level 8.1 L Carbon Dioxide Level 23 Chloride Level 98 Creatinine 7.69 H Eosinophils # 0.8 H Eosinophils % 11.9 H Glucose Level 108 Hematocrit 28.6 L Hemoglobin 9.6 L Lymphocytes # 0.9 Lymphocytes % 13.7 L Mean Corpuscular Hemoglobin 30.6 Mean Corpuscular Hemoglobin Concent 33.7 Mean Corpuscular Volume 90.7 Mean Platelet Volume 9.4 Monocytes # 0.8 Monocytes % 11.7 H Neutrophils # 4.2 Neutrophils % 62.0 Nucleated Red Blood Cells # 0.0 Nucleated Red Blood Cells % 0.0 Platelet Count 325 Potassium Level 3.9 Red Blood Count 3.16 L Red Cell Distribution Width 15.6 H Sodium Level 138 White Blood Count 6.8 Medications Medications Current Medications Diphenhydramine HCl (Benadryl) 50 mg Q6H PRN IV ITCHING Last administered on 05:51; Admin Dose 50 MG; Start 07/09/16 at 17:00 Miscellaneous Information 1 ea NOTE XX ; Start 07/09/16 at 18:30 Glucose (Glutose) 15 gm Q15M PRN PO DECREASED GLUCOSE; Start 07/09/16 at 18:30 Glucose (Glutose) 22.5 gm Q15M PRN PO DECREASED GLUCOSE; Start 07/09/16 at 18: 30 Dextrose (D50w Syringe) 25 ml Q15M PRN IV DECREASED GLUCOSE Last administered on 08/01/16 16:05; Admin Dose 25 ML; Start 07/09/16 at 18:30 Dextrose (D50w Syringe) 50 ml Q15M PRN IV DECREASED GLUCOSE Last administered on 07/19/16 20:58; Admin Dose 50 ML; Start 07/09/16 at 18:30 Glucagon (Glucagen) 1 mg Q15M PRN IM DECREASED GLUCOSE; Start 07/09/16 at 18:30 Glucose (Glutose) 15 gm Q15M PRN BUCCAL DECREASED GLUCOSE; Start 07/09/16 at 18 :30 Aspirin (Halfprin) 81 mg DAILY PO Last administered on 08/05/16 08:18; Admin Dose 81 MG; Start 07/10/16 at 09:00 Atorvastatin Calcium (Lipitor) 80 mg QHS PO Last administered on 08/05/16 21: 39; Admin Dose 80 MG; Start 07/10/16 at 21:00 Clonidine (Catapres) 0.1 mg Q6 PO Last administered on 08/06/16 05:51; Admin Dose 0.1 MG; Start 07/10/16 at 12:00 Isosorbide Mononitrate (Imdur) 60 mg DAILY PO Last administered on 08/04/16 08 :28; Admin Dose 60 MG; Start 07/10/16 at 10:00 Lactobacillus Acidoph/Bulgaricus (Floranex) 1 tab TID PO Last administered on 21:39; Admin Dose 1 TAB; Start 07/10/16 at 09:00 Metoprolol Succinate (Toprol Xl) 50 mg BID PO Last administered on 08/05/16 21 :42; Admin Dose 50 MG; Start 07/10/16 at 10:00 Prasugrel (Effient) 10 mg DAILY PO Last administered on 08/05/16 08:18; Admin Dose 10 MG; Start 07/10/16 at 10:30 Acetaminophen (Tylenol Tab) 500 mg Q4H PRN PO PAIN AND OR ELEVATED TEMP Last administered on 07/30/16 20:06; Admin Dose 500 MG; Start 07/10/16 at 09:00 Cholestyramine Resin (Questran Light) 4 gm BID PO Last administered on 08:46; Admin Dose 4 GM; Start 07/11/16 at 09:00 Pantoprazole (Protonix Tab) 40 mg DAILY@06 PO Last administered on 08/06/16 05 :51; Admin Dose 40 MG; Start 07/16/16 at 06:00 Calcitriol (Rocaltrol) 0.5 mcg DAILY PO Last administered on 08/05/16 08:18; Admin Dose 0.5 MCG; Start 07/24/16 at 10:00 Ondansetron HCl (Zofran Inj) 4 mg Q4H PRN IV NAUSEA AND/OR VOMITING; Start 03/31 at 16:00 Hydromorphone HCl (Dilaudid) 2 mg Q3H PRN IV PAIN Last administered on 05:51; Admin Dose 2 MG; Start 07/27/16 at 23:30 Apixaban (Eliquis) 2.5 mg BID PO Last administered on 08/05/16 21:39; Admin Dose 2.5 MG; Start 07/30/16 at 21:00 Gabapentin (Neurontin) 800 mg TID PO Last administered on 08/05/16 21:40; Admin Dose 800 MG; Start 07/31/16 at 21:00 Diagnostic Test (Pha) (Accucheck) 1 ea 09,14,20 XX Last administered on 20:08; Admin Dose 1 EA; Start 08/04/16 at 14:00 Escitalopram Oxalate (Lexapro) 5 mg QHS PO Last administered on 08/05/16 21:40 ; Admin Dose 5 MG; Start 08/05/16 at 21:00 DONY HOWARD MD Aug 06, 2016 09:09
[2016-08-06] MEDS: PATIROMER CALCIUM SORBITEX 16.8 GM PKT PO SCH (12:09)
--- NOTE | 2016-08-06 12:24 | CONS ---
Date/Time of Note Date/Time of Note DATE: 08/06/16 TIME: 12:20 Assessment/Plan Assessment/Plan Problems: (1) Diabetes mellitus type 1 with complications Status: Chronic Comment: Blood glucose readings a bit more erratic past 24 hours. Due for infusion site change. Will continue to monitor. Control as best possible prior to discharge. Consultation Date/Type/Reason Admit Date/Time Jul 11, 2016 at 12:19 Initial Consult Date 07/29/16 Type of Consultation: endo 24 HR Interval Summary Free Text/Dictation Patient disappointed not able to go to [facility]. C/O right side swelling Exam/Review of Systems Vital Signs Vitals Vital Signs Date Time Temp Pulse Resp B/P Pulse Ox O2 Delivery O2 Flow Rate FiO2 08/06/16 08:13 97.9 68 16 120/65 98 08/05/16 20:11 Room Air Intake and Output 08/05/16 08/05/16 08/06/16 15:00 23:00 07:00 Intake Total 500 ml 800 ml Output Total 3500 ml 350 ml Balance -3000 ml 450 ml Exam Constitutional: alert, oriented, well developed Neck: supple Respiratory: clear to auscultation Cardiovascular: regular rate and rhythm Gastrointestinal: soft Musculoskeletal: nl extremities to inspection, swelling (right hip sacral swelling) Results POC glucose labs and vitals reviewed Result Diagram: 08/06/16 0620 08/06/16 0620 Results 24 hrs Laboratory Tests Test 08/05/16 12:25 08/05/16 14:05 08/05/16 17:21 08/05/16 20:07 Bedside Glucose 202 313 H 168 206 Test 08/05/16 21:36 08/06/16 06:20 08/06/16 08:02 Bedside Glucose 287 H 107 Anion Gap 21 H Basophils # 0.0 Basophils % 0.7 Blood Morphology Comment Blood Urea Nitrogen 54 H Calcium Level 8.1 L Carbon Dioxide Level 23 Chloride Level 98 Creatinine 7.69 H Eosinophils # 0.8 H Eosinophils % 11.9 H Glucose Level 108 Hematocrit 28.6 L Hemoglobin 9.6 L Lymphocytes # 0.9 Lymphocytes % 13.7 L Mean Corpuscular Hemoglobin 30.6 Mean Corpuscular Hemoglobin Concent 33.7 Mean Corpuscular Volume 90.7 Mean Platelet Volume 9.4 Monocytes # 0.8 Monocytes % 11.7 H Neutrophils # 4.2 Neutrophils % 62.0 Nucleated Red Blood Cells # 0.0 Nucleated Red Blood Cells % 0.0 Platelet Count 325 Potassium Level 3.9 Red Blood Count 3.16 L Red Cell Distribution Width 15.6 H Sodium Level 138 White Blood Count 6.8 Medications Medications Current Medications Diphenhydramine HCl (Benadryl) 50 mg Q6H PRN IV ITCHING Last administered on 05:51; Admin Dose 50 MG; Start 07/09/16 at 17:00 Miscellaneous Information 1 ea NOTE XX ; Start 07/09/16 at 18:30 Glucose (Glutose) 15 gm Q15M PRN PO DECREASED GLUCOSE; Start 07/09/16 at 18:30 Glucose (Glutose) 22.5 gm Q15M PRN PO DECREASED GLUCOSE; Start 07/09/16 at 18: 30 Dextrose (D50w Syringe) 25 ml Q15M PRN IV DECREASED GLUCOSE Last administered on 08/01/16 16:05; Admin Dose 25 ML; Start 07/09/16 at 18:30 Dextrose (D50w Syringe) 50 ml Q15M PRN IV DECREASED GLUCOSE Last administered on 07/19/16 20:58; Admin Dose 50 ML; Start 07/09/16 at 18:30 Glucagon (Glucagen) 1 mg Q15M PRN IM DECREASED GLUCOSE; Start 07/09/16 at 18:30 Glucose (Glutose) 15 gm Q15M PRN BUCCAL DECREASED GLUCOSE; Start 07/09/16 at 18 :30 Aspirin (Halfprin) 81 mg DAILY PO Last administered on 08/06/16 09:09; Admin Dose 81 MG; Start 07/10/16 at 09:00 Atorvastatin Calcium (Lipitor) 80 mg QHS PO Last administered on 08/05/16 21: 39; Admin Dose 80 MG; Start 07/10/16 at 21:00 Clonidine (Catapres) 0.1 mg Q6 PO Last administered on 08/06/16 05:51; Admin Dose 0.1 MG; Start 07/10/16 at 12:00 Isosorbide Mononitrate (Imdur) 60 mg DAILY PO Last administered on 08/06/16 09 :08; Admin Dose 60 MG; Start 07/10/16 at 10:00 Lactobacillus Acidoph/Bulgaricus (Floranex) 1 tab TID PO Last administered on 09:09; Admin Dose 1 TAB; Start 07/10/16 at 09:00 Metoprolol Succinate (Toprol Xl) 50 mg BID PO Last administered on 08/06/16 09 :09; Admin Dose 50 MG; Start 07/10/16 at 10:00 Prasugrel (Effient) 10 mg DAILY PO Last administered on 08/06/16 09:08; Admin Dose 10 MG; Start 07/10/16 at 10:30 Acetaminophen (Tylenol Tab) 500 mg Q4H PRN PO PAIN AND OR ELEVATED TEMP Last administered on 07/30/16 20:06; Admin Dose 500 MG; Start 07/10/16 at 09:00 Cholestyramine Resin (Questran Light) 4 gm BID PO Last administered on 08:46; Admin Dose 4 GM; Start 07/11/16 at 09:00 Pantoprazole (Protonix Tab) 40 mg DAILY@06 PO Last administered on 08/06/16 05 :51; Admin Dose 40 MG; Start 07/16/16 at 06:00 Calcitriol (Rocaltrol) 0.5 mcg DAILY PO Last administered on 08/06/16 09:08; Admin Dose 0.5 MCG; Start 07/24/16 at 10:00 Ondansetron HCl (Zofran Inj) 4 mg Q4H PRN IV NAUSEA AND/OR VOMITING Last administered on 08/06/16 09:14; Admin Dose 4 MG; Start 07/25/16 at 16:00 Hydromorphone HCl (Dilaudid) 2 mg Q3H PRN IV PAIN Last administered on 09:07; Admin Dose 2 MG; Start 07/27/16 at 23:30 Apixaban (Eliquis) 2.5 mg BID PO Last administered on 08/06/16 09:08; Admin Dose 2.5 MG; Start 07/30/16 at 21:00 Gabapentin (Neurontin) 800 mg TID PO Last administered on 08/06/16 09:07; Admin Dose 800 MG; Start 07/31/16 at 21:00 Diagnostic Test (Pha) (Accucheck) 1 ea 09,14,20 XX Last administered on 20:08; Admin Dose 1 EA; Start 08/04/16 at 14:00 Escitalopram Oxalate (Lexapro) 5 mg QHS PO Last administered on 08/05/16t 21:40 ; Admin Dose 5 MG; Start 08/05/16 at 21:00 KALPANA MARTINEZ MD Aug 06, 2016 12:24
--- NOTE | 2016-08-06 13:50 | CONS ---
Date/Time of Note Date/Time of Note DATE: 08/06/16 TIME: 13:49 Consult Date/Type/Reason Admit Date/Time Jul 11, 2016 at 12:19 Type of Consultation: Rheum Reason for Consultation Less leg pain but feels weakness on ambulation. Objective Alert, oriented chest clear Heart RRR Abd - soft. Ext - No synovitis Neurol Less tenderness legs Vital Signs Date Time Temp Pulse Resp B/P Pulse Ox O2 Delivery O2 Flow Rate FiO2 08/06/16 08:13 97.9 68 16 120/65 98 08/05/16 20:11 Room Air Intake and Output 08/05/16 08/05/16 08/06/16 15:00 23:00 07:00 Intake Total 500 ml 800 ml Output Total 3500 ml 350 ml Balance -3000 ml 450 ml Results/Medications Result Diagram: 08/06/16 0620 08/06/16 0620 Results 24 hrs Laboratory Tests Test 08/05/16 14:05 08/05/16 17:21 08/05/16 20:07 08/05/16 21:36 Bedside Glucose 313 H 168 206 287 H Test 08/06/16 06:20 08/06/16 08:02 08/06/16 12:18 Anion Gap 21 H Basophils # 0.0 Basophils % 0.7 Blood Morphology Comment Blood Urea Nitrogen 54 H Calcium Level 8.1 L Carbon Dioxide Level 23 Chloride Level 98 Creatinine 7.69 H Eosinophils # 0.8 H Eosinophils % 11.9 H Glucose Level 108 Hematocrit 28.6 L Hemoglobin 9.6 L Lymphocytes # 0.9 Lymphocytes % 13.7 L Mean Corpuscular Hemoglobin 30.6 Mean Corpuscular Hemoglobin Concent 33.7 Mean Corpuscular Volume 90.7 Mean Platelet Volume 9.4 Monocytes # 0.8 Monocytes % 11.7 H Neutrophils # 4.2 Neutrophils % 62.0 Nucleated Red Blood Cells # 0.0 Nucleated Red Blood Cells % 0.0 Platelet Count 325 Potassium Level 3.9 Red Blood Count 3.16 L Red Cell Distribution Width 15.6 H Sodium Level 138 White Blood Count 6.8 Bedside Glucose 107 124 Medications Current Medications Diphenhydramine HCl (Benadryl) 50 mg Q6H PRN IV ITCHING Last administered on t 12:04; Admin Dose 50 MG; Start 07/09/16 at 17:00 Miscellaneous Information 1 ea NOTE XX ; Start 07/09/16 at 18:30 Glucose (Glutose) 15 gm Q15M PRN PO DECREASED GLUCOSE; Start 07/09/16 at 18:30 Glucose (Glutose) 22.5 gm Q15M PRN PO DECREASED GLUCOSE; Start 07/09/16 at 18: 30 Dextrose (D50w Syringe) 25 ml Q15M PRN IV DECREASED GLUCOSE Last administered on 08/01/16 16:05; Admin Dose 25 ML; Start 07/09/16 at 18:30 Dextrose (D50w Syringe) 50 ml Q15M PRN IV DECREASED GLUCOSE Last administered on 07/19/16 20:58; Admin Dose 50 ML; Start 07/09/16 at 18:30 Glucagon (Glucagen) 1 mg Q15M PRN IM DECREASED GLUCOSE; Start 07/09/16 at 18:30 Glucose (Glutose) 15 gm Q15M PRN BUCCAL DECREASED GLUCOSE; Start 07/09/16 at 18 :30 Aspirin (Halfprin) 81 mg DAILY PO Last administered on 08/06/16 09:09; Admin Dose 81 MG; Start 07/10/16 at 09:00 Atorvastatin Calcium (Lipitor) 80 mg QHS PO Last administered on 08/05/16 21: 39; Admin Dose 80 MG; Start 07/10/16 at 21:00 Clonidine (Catapres) 0.1 mg Q6 PO Last administered on 08/06/16 12:04; Admin Dose 0.1 MG; Start 07/10/16 at 12:00 Isosorbide Mononitrate (Imdur) 60 mg DAILY PO Last administered on 08/06/16 09 :08; Admin Dose 60 MG; Start 07/10/16 at 10:00 Lactobacillus Acidoph/Bulgaricus (Floranex) 1 tab TID PO Last administered on 12:10; Admin Dose 1 TAB; Start 07/10/16 at 09:00 Metoprolol Succinate (Toprol Xl) 50 mg BID PO Last administered on 08/06/16 09 :09; Admin Dose 50 MG; Start 07/10/16 at 10:00 Prasugrel (Effient) 10 mg DAILY PO Last administered on 08/06/16 09:08; Admin Dose 10 MG; Start 07/10/16 at 10:30 Acetaminophen (Tylenol Tab) 500 mg Q4H PRN PO PAIN AND OR ELEVATED TEMP Last administered on 07/30/16 20:06; Admin Dose 500 MG; Start 07/10/16 at 09:00 Cholestyramine Resin (Questran Light) 4 gm BID PO Last administered on 08:46; Admin Dose 4 GM; Start 07/11/16 at 09:00 Pantoprazole (Protonix Tab) 40 mg DAILY@06 PO Last administered on 08/06/16 05 :51; Admin Dose 40 MG; Start 07/16/16 at 06:00 Calcitriol (Rocaltrol) 0.5 mcg DAILY PO Last administered on 08/06/16 09:08; Admin Dose 0.5 MCG; Start 07/24/16 at 10:00 Ondansetron HCl (Zofran Inj) 4 mg Q4H PRN IV NAUSEA AND/OR VOMITING Last administered on 08/06/16 09:14; Admin Dose 4 MG; Start 07/25/16 at 16:00 Hydromorphone HCl (Dilaudid) 2 mg Q3H PRN IV PAIN Last administered on 12:04; Admin Dose 2 MG; Start 07/27/16 at 23:30 Apixaban (Eliquis) 2.5 mg BID PO Last administered on 08/06/16 09:08; Admin Dose 2.5 MG; Start 07/30/16 at 21:00 Gabapentin (Neurontin) 800 mg TID PO Last administered on 08/06/16 12:10; Admin Dose 800 MG; Start 07/31/16 at 21:00 Diagnostic Test (Pha) (Accucheck) 1 ea 09,14,20 XX Last administered on 20:08; Admin Dose 1 EA; Start 08/04/16 at 14:00 Escitalopram Oxalate (Lexapro) 5 mg QHS PO Last administered on 08/05/16 21:40 ; Admin Dose 5 MG; Start 08/05/16 at 21:00 Assessment/Plan Chief Complaint/Hosp Course Ass 1. Leg pain. Neuropathic in part, responding to Gabapentin. 2. Marked peripheral arterial disease. 3. Possible right lumbar radiculopathy, long standing 4. Renal Failure 5. Diabetes Mellitus 6. Right common femoral vein DVT 7. S/p repair of pseudoaneurism right groin. Rec. Continue Gabapentin at night to 800 mg tid. Increase ambulation as tolerated. Would benefit from additional Rehab. Problems: ENMA GRAHAM MD Aug 06, 2016 13:50
--- NOTE | 2016-08-06 16:51 | PN ---
Date/Time of Note Date/Time of Note DATE: 08/06/16 TIME: 16:47 Assessment/Plan VTE Prophylaxis VTE Prophylaxis Intervention: other (Eliquiz) Lines/Catheters [facility] PORTACATH Urinary Cath still in place: No Assessment/Plan Chief Complaint/Hosp Course ASSESSMENT AND PLAN: 1. Diarrhea with recent history of Clostridium difficile colitis, resolved. Dr. Gomez is following in gastroenterology consultation 2. Dehydration secondary to diarrhea with recent history of Clostridium difficile colitis. Stool for C. difficile is negative. 3. Type 1 diabetes mellitus with diabetic nephropathy. Continue NovoLog per insulin pump. Dr. Haddad is following an endocrinology consultation. 4. End-stage renal disease, hemodialysis dependent. Dr. Hubbard is following the patient in nephrology consultation. Continue dialysis per nephrology. 5. Coronary artery disease. Continue Imdur and metoprolol. 6. Hypertension. 7. Bilateral lower extremities pain. Dr. Orosco is following and rheumatology consultation. 8. Lateral lower extremities atherosclerosis and left lower extremity disabling claudication. is following in vascular surgery consultation. S/P angio with LLE SFA severe stenosis. S/p Left femoral popliteal stenting on 07-25, s/p Exploration of right common femoral artery and control of bleeding on 07-27. Started on Eliquis, follow-up vascular surgery recommendations. 9. Scrotal edema. Dr. Pagan is following in urology consultation. SNIF placement, patient stated that his mother is going to visit [facility]. Plan for d/c to SNIF tomorrow after HD. Continue heparin for deep venous thrombosis prophylaxis and Pepcid for peptic ulcer disease prophylaxis. Further recommendations based on clinical course. Plan of care discussed with Dr. Rosales. Problems: Exam/Review of Systems Vital Signs Vitals Vital Signs Date Time Temp Pulse Resp B/P Pulse Ox O2 Delivery O2 Flow Rate FiO2 08/06/16 08:13 97.9 68 16 120/65 98 08/05/16 20:11 Room Air Intake and Output 08/05/16 08/05/16 08/06/16 15:00 23:00 07:00 Intake Total 500 ml 800 ml Output Total 3500 ml 350 ml Balance -3000 ml 450 ml Exam GENERAL: Well-developed, well-nourished male, currently appears pale, awake, alert. HEENT: The patient has right eye prosthesis. Left pupil is equal, round, reactive to light and accommodation. NECK: Supple. No cervical lymphadenopathy, no thyromegaly. CHEST: Lungs clear bilaterally. There are no rhonchi, wheezes, rales noted. CARDIOVASCULAR: Normal S1, S2. No murmurs, gallops, clicks, rubs noted. ABDOMEN: Flat, soft, nondistended. The patient has generalized tenderness to epigastric tenderness on palpation. No guarding. EXTREMITIES: No edema, clubbing, cyanosis. Left upper extremity AV graft with a palpable thrill and audible bruit. Right lower extremity status post surgical intervention. SKIN: No rash, petechiae noted. NEUROLOGIC: The patient is awake, alert, and oriented x3. Results Result Diagram: 08/06/16 0620 08/06/16 0620 Results 24 hrs Laboratory Tests Test 08/05/16 17:21 08/05/16 20:07 08/05/16 21:36 08/06/16 06:20 Bedside Glucose 168 206 287 H Anion Gap 21 H Basophils # 0.0 Basophils % 0.7 Blood Morphology Comment Blood Urea Nitrogen 54 H Calcium Level 8.1 L Carbon Dioxide Level 23 Chloride Level 98 Creatinine 7.69 H Eosinophils # 0.8 H Eosinophils % 11.9 H Glucose Level 108 Hematocrit 28.6 L Hemoglobin 9.6 L Lymphocytes # 0.9 Lymphocytes % 13.7 L Mean Corpuscular Hemoglobin 30.6 Mean Corpuscular Hemoglobin Concent 33.7 Mean Corpuscular Volume 90.7 Mean Platelet Volume 9.4 Monocytes # 0.8 Monocytes % 11.7 H Neutrophils # 4.2 Neutrophils % 62.0 Nucleated Red Blood Cells # 0.0 Nucleated Red Blood Cells % 0.0 Platelet Count 325 Potassium Level 3.9 Red Blood Count 3.16 L Red Cell Distribution Width 15.6 H Sodium Level 138 White Blood Count 6.8 Test 08/06/16 08:02 08/06/16 12:18 08/06/16 15:02 Bedside Glucose 107 124 86 Medications Medications Current Medications Diphenhydramine HCl (Benadryl) 50 mg Q6H PRN IV ITCHING Last administered on t 12:04; Admin Dose 50 MG; Start 07/09/16 at 17:00 Miscellaneous Information 1 ea NOTE XX ; Start 07/09/16 at 18:30 Glucose (Glutose) 15 gm Q15M PRN PO DECREASED GLUCOSE; Start 07/09/16 at 18:30 Glucose (Glutose) 22.5 gm Q15M PRN PO DECREASED GLUCOSE; Start 07/09/16 at 18: 30 Dextrose (D50w Syringe) 25 ml Q15M PRN IV DECREASED GLUCOSE Last administered on 08/01/16 16:05; Admin Dose 25 ML; Start 07/09/16 at 18:30 Dextrose (D50w Syringe) 50 ml Q15M PRN IV DECREASED GLUCOSE Last administered on 07/19/16 20:58; Admin Dose 50 ML; Start 07/09/16 at 18:30 Glucagon (Glucagen) 1 mg Q15M PRN IM DECREASED GLUCOSE; Start 07/09/16 at 18:30 Glucose (Glutose) 15 gm Q15M PRN BUCCAL DECREASED GLUCOSE; Start 07/09/16 at 18 :30 Aspirin (Halfprin) 81 mg DAILY PO Last administered on 08/06/16 09:09; Admin Dose 81 MG; Start 07/10/16 at 09:00 Atorvastatin Calcium (Lipitor) 80 mg QHS PO Last administered on 08/05/16 21: 39; Admin Dose 80 MG; Start 07/10/16 at 21:00 Clonidine (Catapres) 0.1 mg Q6 PO Last administered on 08/06/16 12:04; Admin Dose 0.1 MG; Start 07/10/16 at 12:00 Isosorbide Mononitrate (Imdur) 60 mg DAILY PO Last administered on 08/06/16 09 :08; Admin Dose 60 MG; Start 07/10/16 at 10:00 Lactobacillus Acidoph/Bulgaricus (Floranex) 1 tab TID PO Last administered on 12:10; Admin Dose 1 TAB; Start 07/10/16 at 09:00 Metoprolol Succinate (Toprol Xl) 50 mg BID PO Last administered on 08/06/16 09 :09; Admin Dose 50 MG; Start 07/10/16 at 10:00 Prasugrel (Effient) 10 mg DAILY PO Last administered on 08/06/16 09:08; Admin Dose 10 MG; Start 07/10/16 at 10:30 Acetaminophen (Tylenol Tab) 500 mg Q4H PRN PO PAIN AND OR ELEVATED TEMP Last administered on 07/30/16 20:06; Admin Dose 500 MG; Start 07/10/16 at 09:00 Cholestyramine Resin (Questran Light) 4 gm BID PO Last administered on 08:46; Admin Dose 4 GM; Start 07/11/16 at 09:00 Pantoprazole (Protonix Tab) 40 mg DAILY@06 PO Last administered on 08/06/16 05 :51; Admin Dose 40 MG; Start 07/16/16 at 06:00 Calcitriol (Rocaltrol) 0.5 mcg DAILY PO Last administered on 08/06/16 09:08; Admin Dose 0.5 MCG; Start 07/24/16 at 10:00 Ondansetron HCl (Zofran Inj) 4 mg Q4H PRN IV NAUSEA AND/OR VOMITING Last administered on 08/06/16 09:14; Admin Dose 4 MG; Start 07/25/16 at 16:00 Hydromorphone HCl (Dilaudid) 2 mg Q3H PRN IV PAIN Last administered on 14:58; Admin Dose 2 MG; Start 07/27/16 at 23:30 Apixaban (Eliquis) 2.5 mg BID PO Last administered on 08/06/16 09:08; Admin Dose 2.5 MG; Start 07/30/16 at 21:00 Gabapentin (Neurontin) 800 mg TID PO Last administered on 08/06/16 12:10; Admin Dose 800 MG; Start 07/31/16 at 21:00 Diagnostic Test (Pha) (Accucheck) 1 ea 09,14,20 XX Last administered on 20:08; Admin Dose 1 EA; Start 08/04/16 at 14:00 Escitalopram Oxalate (Lexapro) 5 mg QHS PO Last administered on 08/05/16 21:40 ; Admin Dose 5 MG; Start 08/05/16 at 21:00 ANGELINA CASTREJON Aug 06, 2016 16:51
[2016-08-06 19:26] VITALS: BP 111/61; RESP 20
--- NOTE | 2016-08-06 20:00 | CONS ---
Date/Time of Note Date/Time of Note DATE: 08/06/16 TIME: 20:00 Assessment/Plan Assessment/Plan Additional Assessment/Plan IMPRESSION: 1. Diarrhea. 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 Improved after Questran restarted. C. Diff negative.better 2. Diabetes mellitus. 3. Renal failure. 4. Coronary artery disease. 5. Hypertension. 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 bleeding Consultation Date/Type/Reason Admit Date/Time Jul 11, 2016 at 12:19 Type of Consultation: Rheum 24 HR Interval Summary Constitutional: improved Exam/Review of Systems Vital Signs Vitals Vital Signs Date Time Temp Pulse Resp B/P Pulse Ox O2 Delivery O2 Flow Rate FiO2 08/06/16 19:26 98.2 72 20 111/61 95 08/05/16 20:11 Room Air Intake and Output 08/05/16 08/05/16 08/06/16 15:00 23:00 07:00 Intake Total 500 ml 800 ml Output Total 3500 ml 350 ml Balance -3000 ml 450 ml Exam Constitutional: alert, oriented, well developed Psych: nl mood/affect, no complaints Head: atraumatic, normocephalic Eyes: EOMI, PERRL, nl conjunctiva, nl lids, nl sclera ENMT: nl external ears & nose, nl lips & teeth, nl nasal mucosa & septum Neck: non-tender, supple Respiratory: clear to auscultation, normal air movement Cardiovascular: nl pulses, regular rate and rhythm Gastrointestinal: nl liver, spleen, non-tender, soft Musculoskeletal: nl extremities to inspection, nl gait and stance Extremities: normal pulses 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: 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, nl mental status, nl speech, nl strength Skin: nl turgor, No rash or lesions Lymph: nl lymph nodes Results Result Diagram: 08/06/16 0620 08/06/16 0620 Results 24 hrs Laboratory Tests Test 08/05/16 20:07 08/05/16 21:36 08/06/16 06:20 08/06/16 08:02 Bedside Glucose 206 287 H 107 Anion Gap 21 H Basophils # 0.0 Basophils % 0.7 Blood Morphology Comment Blood Urea Nitrogen 54 H Calcium Level 8.1 L Carbon Dioxide Level 23 Chloride Level 98 Creatinine 7.69 H Eosinophils # 0.8 H Eosinophils % 11.9 H Glucose Level 108 Hematocrit 28.6 L Hemoglobin 9.6 L Lymphocytes # 0.9 Lymphocytes % 13.7 L Mean Corpuscular Hemoglobin 30.6 Mean Corpuscular Hemoglobin Concent 33.7 Mean Corpuscular Volume 90.7 Mean Platelet Volume 9.4 Monocytes # 0.8 Monocytes % 11.7 H Neutrophils # 4.2 Neutrophils % 62.0 Nucleated Red Blood Cells # 0.0 Nucleated Red Blood Cells % 0.0 Platelet Count 325 Potassium Level 3.9 Red Blood Count 3.16 L Red Cell Distribution Width 15.6 H Sodium Level 138 White Blood Count 6.8 Test 08/06/16 12:18 08/06/16 15:02 08/06/16 17:21 08/06/16 17:50 Bedside Glucose 124 86 59 L 60 L Test 08/06/16 18:06 Bedside Glucose 113 Medications Medications Current Medications Diphenhydramine HCl (Benadryl) 50 mg Q6H PRN IV ITCHING Last administered on 18:07; Admin Dose 50 MG; Start 07/09/16 at 17:00 Miscellaneous Information 1 ea NOTE XX ; Start 07/09/16 at 18:30 Glucose (Glutose) 15 gm Q15M PRN PO DECREASED GLUCOSE; Start 07/09/16 at 18:30 Glucose (Glutose) 22.5 gm Q15M PRN PO DECREASED GLUCOSE; Start 07/09/16 at 18: 30 Dextrose (D50w Syringe) 25 ml Q15M PRN IV DECREASED GLUCOSE Last administered on 08/01/16 16:05; Admin Dose 25 ML; Start 07/09/16 at 18:30 Dextrose (D50w Syringe) 50 ml Q15M PRN IV DECREASED GLUCOSE Last administered on 07/19/16 20:58; Admin Dose 50 ML; Start 07/09/16 at 18:30 Glucagon (Glucagen) 1 mg Q15M PRN IM DECREASED GLUCOSE; Start 07/09/16 at 18:30 Glucose (Glutose) 15 gm Q15M PRN BUCCAL DECREASED GLUCOSE; Start 07/09/16 at 18 :30 Aspirin (Halfprin) 81 mg DAILY PO Last administered on 08/06/16 09:09; Admin Dose 81 MG; Start 07/10/16 at 09:00 Atorvastatin Calcium (Lipitor) 80 mg QHS PO Last administered on 08/05/16 21: 39; Admin Dose 80 MG; Start 07/10/16 at 21:00 Clonidine (Catapres) 0.1 mg Q6 PO Last administered on 08/06/16 17:25; Admin Dose 0.1 MG; Start 07/10/16 at 12:00 Isosorbide Mononitrate (Imdur) 60 mg DAILY PO Last administered on 08/06/16 09 :08; Admin Dose 60 MG; Start 07/10/16 at 10:00 Lactobacillus Acidoph/Bulgaricus (Floranex) 1 tab TID PO Last administered on 12:10; Admin Dose 1 TAB; Start 07/10/16 at 09:00 Metoprolol Succinate (Toprol Xl) 50 mg BID PO Last administered on 08/06/16 09 :09; Admin Dose 50 MG; Start 07/10/16 at 10:00 Prasugrel (Effient) 10 mg DAILY PO Last administered on 08/06/16 09:08; Admin Dose 10 MG; Start 07/10/16 at 10:30 Acetaminophen (Tylenol Tab) 500 mg Q4H PRN PO PAIN AND OR ELEVATED TEMP Last administered on 07/30/16 20:06; Admin Dose 500 MG; Start 07/10/16 at 09:00 Cholestyramine Resin (Questran Light) 4 gm BID PO Last administered on 08:46; Admin Dose 4 GM; Start 07/11/16 at 09:00 Pantoprazole (Protonix Tab) 40 mg DAILY@06 PO Last administered on 08/06/16 05 :51; Admin Dose 40 MG; Start 07/16/16 at 06:00 Calcitriol (Rocaltrol) 0.5 mcg DAILY PO Last administered on 08/06/16 09:08; Admin Dose 0.5 MCG; Start 07/24/16 at 10:00 Ondansetron HCl (Zofran Inj) 4 mg Q4H PRN IV NAUSEA AND/OR VOMITING Last administered on 08/06/16 09:14; Admin Dose 4 MG; Start 07/25/16 at 16:00 Hydromorphone HCl (Dilaudid) 2 mg Q3H PRN IV PAIN Last administered on 18:03; Admin Dose 2 MG; Start 07/27/16 at 23:30 Apixaban (Eliquis) 2.5 mg BID PO Last administered on 08/06/16 09:08; Admin Dose 2.5 MG; Start 07/30/16 at 21:00 Gabapentin (Neurontin) 800 mg TID PO Last administered on 08/06/16 12:10; Admin Dose 800 MG; Start 07/31/16 at 21:00 Diagnostic Test (Pha) (Accucheck) 1 ea 09,14,20 XX Last administered on 20:08; Admin Dose 1 EA; Start 08/04/16 at 14:00 Escitalopram Oxalate (Lexapro) 5 mg QHS PO Last administered on 08/05/16 21:40 ; Admin Dose 5 MG; Start 08/05/16 at 21:00 NIYAH REED MD Aug 06, 2016 20:00
[2016-08-06] MEDS: ESCITALOPRAM 10 MG TAB PO SCH (21:14)
[2016-08-06] MEDS: ATORVASTATIN 80 MG TAB PO SCH (21:14)
[2016-08-07] VITALS (9 sets, daily range): BP systolic 101–131; BP diastolic 57–76; PULSE 72–75; RESP 20
[2016-08-07] MEDS: HYDROmorphONE 2 MG/ML SYG IV PRN ×4 (00:10→12:21)
[2016-08-07] MEDS: DIPHENHYDRAMINE 50 MG INJ IV PRN (00:10)
[2016-08-07] MEDS: DIPHENHYDRAMINE 50 MG INJ IV SCH ×2 (06:09→12:20)
[2016-08-07] MEDS: LORAZEPAM 2 MG INJ IV SCH (06:09)
[2016-08-07] MEDS: PANTOPRAZOLE (EC) 40 MG TAB PO SCH (06:09)
[2016-08-07 06:36] LABS: POTASSIUM 4.8 mmol/L (3.5-5.1)
[2016-08-07 06:39] LABS: CREATININE 8.53 mg/dl (0.61-1.24)
[2016-08-07 06:40] LABS: CALCIUM 7.4 mg/dl (8.4-10.2); MAGNESIUM 2.1 mg/dl (1.7-2.5)
[2016-08-07] MEDS: CALCIUM ACETATE 667 MG CAP PO SCH ×3 (07:43→12:20)
[2016-08-07] MEDS: SEVELAMER 800 MG TAB PO SCH ×3 (07:43→12:20)
[2016-08-07] MEDS: PRASUGREL HYDROCHLORIDE 10 MG TABLET PO SCH ×2 (07:43→09:27)
[2016-08-07] MEDS: LACTOBACILLUS CHEW TAB PO SCH ×3 (07:43→12:21)
[2016-08-07] MEDS: CHOLESTYRAMINE (LIGHT) 4 GM PACKET PO SCH (07:44)
[2016-08-07] MEDS: ISOSORBIDE MONONITRATE(SR)60 MG TAB PO SCH ×2 (07:44→09:31)
[2016-08-07] MEDS: CALCITRIOL 0.25 MCG CAP PO SCH ×2 (07:44→09:26)
[2016-08-07] MEDS: METOPROLOL (XL) 50 MG TAB PO SCH ×2 (07:44→09:31)
[2016-08-07] MEDS: GABAPENTIN 400 MG CAP PO SCH ×3 (07:44→12:20)
[2016-08-07] MEDS: ASPIRIN (EC) 81 MG TAB PO SCH ×2 (07:44→09:29)
[2016-08-07] MEDS: APIXABAN 5 MG TABLET PO SCH ×2 (07:45→09:25)
[2016-08-07] MEDS: ACCUCHECK XX SCH ×3 (07:45→12:15)
--- NOTE | 2016-08-07 09:37 | CONS ---
Date/Time of Note Date/Time of Note DATE: 08/07/16 TIME: 09:33 Assessment/Plan Assessment/Plan Chief Complaint/Hosp Course #1 end-stage renal disease, on maintenance hemodialysis Thursday . He had dialysis today . He is cleared to be transferred to [facility] today . Arrangements will need to be made for outpatient dialysis and transportation . #2 bilateral foot pain , improved . #3 anemia. H/H is stable . #4 hyperkalemia . He is taking Veltassa for elevated K . He is on increased dose of the the Veltassa to 16.8 gm a day .potassium is under control . 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 He has an infection at the surgical site and is on antibiotics . #6 He has a DVT in his proximal R femoral vein and is on Eliquis . 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 He has not been up walking because of multiple surgeries . He needs to have intense physical therapy and would benefit from a comprehensive rehabilitation program . Problems: Consultation Date/Type/Reason Admit Date/Time Jul 11, 2016 at 12:19 Type of Consultation: Rheum 24 HR Interval Summary Free Text/Dictation he is feeling better today . less R groin pain . Constitutional: improved, no complaints Exam/Review of Systems Vital Signs Vitals Vital Signs Date Time Temp Pulse Resp B/P Pulse Ox O2 Delivery O2 Flow Rate FiO2 08/07/16 07:34 97.7 76 20 111/66 97 08/05/16 20:11 Room Air Intake and Output 08/06/16 08/06/16 08/07/16 15:00 23:00 07:00 Intake Total 740 ml 480 ml Output Total 450 ml Balance 290 ml 480 ml Exam Constitutional: alert, oriented, well developed Psych: nl mood/affect, no complaints Respiratory: clear to auscultation, normal air movement Cardiovascular: regular rate and rhythm Musculoskeletal: nl extremities to inspection Results Result Diagram: 08/06/16 0620 08/07/16 0558 Results 24 hrs Laboratory Tests Test 08/06/16 12:18 08/06/16 15:02 08/06/16 17:21 08/06/16 17:50 Bedside Glucose 124 86 59 L 60 L Test 08/06/16 18:06 08/06/16 21:26 08/07/16 02:44 08/07/16 05:58 Bedside Glucose 113 245 H 389 H Anion Gap 19 H Blood Urea Nitrogen 68 H Calcium Level 7.4 L Carbon Dioxide Level 21 Chloride Level 98 Creatinine 8.53 H Glucose Level 346 #H Magnesium Level 2.1 Potassium Level 4.8 Sodium Level 133 L Test 08/07/16 07:51 Bedside Glucose 218 Medications Medications Current Medications Diphenhydramine HCl (Benadryl) 50 mg Q6H PRN IV ITCHING Last administered on 00:10; Admin Dose 50 MG; Start 07/09/16 at 17:00 Miscellaneous Information 1 ea NOTE XX ; Start 07/09/16 at 18:30 Glucose (Glutose) 15 gm Q15M PRN PO DECREASED GLUCOSE; Start 07/09/16 at 18:30 Glucose (Glutose) 22.5 gm Q15M PRN PO DECREASED GLUCOSE; Start 07/09/16 at 18: 30 Dextrose (D50w Syringe) 25 ml Q15M PRN IV DECREASED GLUCOSE Last administered on 08/01/16 16:05; Admin Dose 25 ML; Start 07/09/16 at 18:30 Dextrose (D50w Syringe) 50 ml Q15M PRN IV DECREASED GLUCOSE Last administered on 07/19/16 20:58; Admin Dose 50 ML; Start 07/09/16 at 18:30 Glucagon (Glucagen) 1 mg Q15M PRN IM DECREASED GLUCOSE; Start 07/09/16 at 18:30 Glucose (Glutose) 15 gm Q15M PRN BUCCAL DECREASED GLUCOSE; Start 07/09/16 at 18 :30 Aspirin (Halfprin) 81 mg DAILY PO Last administered on 08/06/16 09:09; Admin Dose 81 MG; Start 07/10/16 at 09:00 Atorvastatin Calcium (Lipitor) 80 mg QHS PO Last administered on 08/06/16 21: 14; Admin Dose 80 MG; Start 07/10/16 at 21:00 Clonidine (Catapres) 0.1 mg Q6 PO Last administered on 08/07/16 00:20; Admin Dose 0.1 MG; Start 07/10/16 at 12:00 Isosorbide Mononitrate (Imdur) 60 mg DAILY PO Last administered on 08/06/16 09 :08; Admin Dose 60 MG; Start 07/10/16 at 10:00 Lactobacillus Acidoph/Bulgaricus (Floranex) 1 tab TID PO Last administered on 21:14; Admin Dose 1 TAB; Start 07/10/16 at 09:00 Metoprolol Succinate (Toprol Xl) 50 mg BID PO Last administered on 08/06/16 21 :15; Admin Dose 50 MG; Start 07/10/16 at 10:00 Prasugrel (Effient) 10 mg DAILY PO Last administered on 08/06/16 09:08; Admin Dose 10 MG; Start 07/10/16 at 10:30 Acetaminophen (Tylenol Tab) 500 mg Q4H PRN PO PAIN AND OR ELEVATED TEMP Last administered on 07/30/16 20:06; Admin Dose 500 MG; Start 07/10/16 at 09:00 Cholestyramine Resin (Questran Light) 4 gm BID PO Last administered on 21:15; Admin Dose 4 GM; Start 07/11/16 at 09:00 Pantoprazole (Protonix Tab) 40 mg DAILY@06 PO Last administered on 08/07/16 06 :09; Admin Dose 40 MG; Start 07/16/16 at 06:00 Calcitriol (Rocaltrol) 0.5 mcg DAILY PO Last administered on 08/06/16 09:08; Admin Dose 0.5 MCG; Start 07/24/16 at 10:00 Ondansetron HCl (Zofran Inj) 4 mg Q4H PRN IV NAUSEA AND/OR VOMITING Last administered on 08/06/16 09:14; Admin Dose 4 MG; Start 07/25/16 at 16:00 Hydromorphone HCl (Dilaudid) 2 mg Q3H PRN IV PAIN Last administered on 04:52; Admin Dose 2 MG; Start 07/27/16 at 23:30 Apixaban (Eliquis) 2.5 mg BID PO Last administered on 08/06/16 21:13; Admin Dose 2.5 MG; Start 07/30/16 at 21:00 Gabapentin (Neurontin) 800 mg TID PO Last administered on 08/06/16 21:14; Admin Dose 800 MG; Start 07/31/16 at 21:00 Diagnostic Test (Pha) (Accucheck) 1 ea 09,14,20 XX Last administered on 20:08; Admin Dose 1 EA; Start 08/04/16 at 14:00 Escitalopram Oxalate (Lexapro) 5 mg QHS PO Last administered on 08/06/16 21:14 ; Admin Dose 5 MG; Start 08/05/16 at 21:00 DONY HOWARD MD Aug 07, 2016 09:36
--- NOTE | 2016-08-07 09:48 | PDOCDIS ---
Discharge Instructions CONDITION Patient Condition: Stable HOME CARE INSTRUCTIONS: Special Diet: 2000 MEI ADA ACTIVITY: Activity Restrictions: Slowly Increase Activity Rest between Activity Avoid heavy lifting Do not operate Machinery Do not operate Power Tool Avoid Heavy Housework Bathing Restrictions: Sponge Bath PEDRO BENSON Aug 07, 2016 09:48
--- NOTE | 2016-08-07 09:59 | DS ---
Date/Time of Note Date/Time of Note DATE: 08/07/16 TIME: 09:59 Discharge Summary Admission/Discharge Info Admit Date/Time Jul 11, 2016 at 12:19 Discharge Date/Time Patient Condition: Stable Hospital Course #1 end-stage renal disease, on maintenance hemodialysis Thursday . He had dialysis today . He is cleared to be transferred to [facility] today . Arrangements will need to be made for outpatient dialysis and transportation . #2 bilateral foot pain , improved . #3 anemia. H/H is stable . #4 hyperkalemia . He is taking Veltassa for elevated K . He is on increased dose of the the Veltassa to 16.8 gm a day .potassium is under control . 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 He has an infection at the surgical site and is on antibiotics . #6 He has a DVT in his proximal R femoral vein and is on Eliquis . 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 He has not been up walking because of multiple surgeries . He needs to have intense physical therapy and would benefit from a comprehensive rehabilitation program . Home Meds Active Scripts [Vancomycin Oral Syringe] 50 MG/ML SOLN No Conflict Check, 125 MG PO Q6 for 10 Days Prov:ANGELINA CASTREJON 07/01/16 Lactobacillus Acidoph/Bulgaricus* (Floranex*) 1 Each Tablet, 1 TAB PO TID for 30 Days, TAB Prov:ANGELINA CASTREJON 07/01/16 Clonidine Hcl* (Clonidine Hcl*) 0.1 Mg Tab, 0.1 MG PO Q6 for 30 Days, TAB Prov:ANGELINA CASTREJON 07/01/16 Hydromorphone Hcl* (Dilaudid*) 2 Mg Tablet, 2 MG PO Q6H Y for PAIN LEVEL 6-10, # 14 TAB Prov:PEDRO BENSON 05/31/16 Prasugrel Hydrochloride* (Effient*) 10 Mg Tablet, 10 MG PO DAILY for 30 Days, TAB Prov:PEDRO BENSON 05/01/16 Isosorbide Mononitrate* (Isosorbide Mononitrate*) 60 Mg Tab.er.24h, 60 MG PO DAILY for 30 Days Prov:PEDRO BENSON 05/01/16 Reported Medications Pramipexole* (Pramipexole*) 0.25 Mg Tablet, 0.25 MG PO HS, TAB 05/15/16 Lisinopril* (Zestril*) 10 Mg Tablet, 10 MG PO DAILY, #30 TAB 05/15/16 Insulin Lispro (Humalog) 100 Unit/1 Ml Cartridge, 0 SQ PT HAS PUMP 05/15/16 Sevelamer Hcl* (Renagel*) 800 Mg Tablet, 1600 MG PO WITH MEALS, TAB 01/14/16 Calcium Acetate* (Calcium Acetate*) 667 Mg Capsule, 1334 MG PO WITH MEALS, #60 CAP 01/14/16 Aspirin* (Aspirin* EC) 81 Mg Tablet.dr, 81 MG PO DAILY, TAB 12/21/15 Lorazepam* (Ativan*) 2 Mg Tablet, 2 MG PO HS, #30 TAB 12/21/15 Atorvastatin* (Atorvastatin*) 80 Mg Tablet, 80 MG PO QHS, #30 TAB 07/15/15 Diphenhydramine Hcl* (Benadryl*) 50 Mg Cap, 50 MG PO Q6 Y for ITCHING, CAP 07/15/15 Docusate Sodium* (Docusate Sodium*) 100 Mg Capsule, 100 MG PO BID, #60 CAP 07/15/15 Metoprolol Succinate* (Toprol XL*) 50 Mg Tab.er.24h, 50 MG PO BID, TAB PT DOES NOT TAKE ON BAHMAN ELIZABETH SAT 07/09/14 Pending Labs Laboratory Tests Test 08/06/16 12:18 08/06/16 15:02 08/06/16 17:21 08/06/16 17:50 Bedside Glucose 124mg/dL (70-220) 86mg/dL (70-220) 59mg/dL (70-220) 60mg/dL (70-220) Test 08/06/16 18:06 08/06/16 21:26 08/07/16 02:44 08/07/16 05:58 Bedside Glucose 113mg/dL (70-220) 245mg/dL (70-220) 389mg/dL (70-220) Anion Gap 19 (8-16) Blood Urea Nitrogen 68mg/dl (7-20) Calcium Level 7.4mg/dl (8.4-10.2) Carbon Dioxide Level 21mmol/L (21-31) Chloride Level 98mmol/L (97-110) Creatinine 8.53mg/dl (0.61-1.24) Glucose Level 346mg/dl (70-220) Magnesium Level 2.1mg/dl (1.7-2.5) Potassium Level 4.8mmol/L (3.5-5.1) Sodium Level 133mmol/L (135-144) Test 08/07/16 07:51 Bedside Glucose 218mg/dL (70-220) PEDRO BESNON Aug 07, 2016 09:59
[2016-08-07] MEDS ORDERED: HEPARIN (100 UNITS/ML) 5 ML SYG CATHETER ONE (11:00)
[2016-08-07] MEDS: PATIROMER CALCIUM SORBITEX 16.8 GM PKT PO SCH (12:19)
== END 2016-08-07 13:20 | DRG 356 ==
LOC: E/R 12:36 → MS2 14:45 → UNDOADMOB 16:30 → INTOOBSV 16:30 → MS2 16:30 → OBSVTOIN 07-11 12:19 → ICU 07-26 11:31 → MS2 07-29 20:02
PROVIDERS: ADMIT Internal Medicine; ATTEND Internal Medicine
PROC: 5A1D60Z (ICD-10-PCS; 2016-07-10)
PROC: 30233N1 Transfusion of Nonautologous Red Blood Cells into Peripheral Vein, Percutaneous Approach (ICD-10-PCS; 2016-07-11)
PROC: B41DZZZ Fluoroscopy of Aorta and Bilateral Lower Extremity Arteries (ICD-10-PCS; 2016-07-21)
PROC: 04CN3ZZ Extirpation of Matter from Left Popliteal Artery, Percutaneous Approach (ICD-10-PCS; 2016-07-25)
PROC: 047N341 Dilation of Left Popliteal Artery with Drug-eluting Intraluminal Device, using Drug-Coated Balloon, Percutaneous Approach (ICD-10-PCS; 2016-07-25)
PROC: 04CL3ZZ Extirpation of Matter from Left Femoral Artery, Percutaneous Approach (ICD-10-PCS; principal; 2016-07-25 13:30)
PROC: 047L341 Dilation of Left Femoral Artery with Drug-eluting Intraluminal Device, using Drug-Coated Balloon, Percutaneous Approach (ICD-10-PCS; 2016-07-25 13:30)
PROC: 04BK0ZZ Excision of Right Femoral Artery, Open Approach (ICD-10-PCS; 2016-07-27)
DX: A04.7 Enterocolitis due to Clostridium difficile (principal); N18.6 End stage renal disease; E10.21 Type 1 diabetes mellitus with diabetic nephropathy; I82.411 Acute embolism and thrombosis of right femoral vein; I12.0 Hypertensive chronic kidney disease with stage 5 chronic kidney disease or end stage renal disease; E87.1 Hypo-osmolality and hyponatremia; I97.89 Other postprocedural complications and disorders of the circulatory system, not elsewhere classified; G72.9 Myopathy, unspecified; F32.9 Major depressive disorder, single episode, unspecified; N49.2 Inflammatory disorders of scrotum; Y83.8 Other surgical procedures as the cause of abnormal reaction of the patient, or of later complication, without mention of misadventure at the time of the procedure; I72.4 Aneurysm of artery of lower extremity; Y92.239 Unspecified place in hospital as the place of occurrence of the external cause; E86.0 Dehydration; Z79.4 Long term (current) use of insulin; Z99.2 Dependence on renal dialysis; E87.5 Hyperkalemia; E10.22 Type 1 diabetes mellitus with diabetic chronic kidney disease; I25.10 Atherosclerotic heart disease of native coronary artery without angina pectoris; Z96.41 Presence of insulin pump (external) (internal); M79.672 Pain in left foot; M79.671 Pain in right foot; G89.29 Other chronic pain; E10.319 Type 1 diabetes mellitus with unspecified diabetic retinopathy without macular edema; R79.89 Other specified abnormal findings of blood chemistry; Z97.0 Presence of artificial eye; I25.2 Old myocardial infarction; Z79.899 Other long term (current) drug therapy; Z87.891 Personal history of nicotine dependence; D63.8 Anemia in other chronic diseases classified elsewhere; E10.43 Type 1 diabetes mellitus with diabetic autonomic (poly)neuropathy; E10.51 Type 1 diabetes mellitus with diabetic peripheral angiopathy without gangrene; H54.8 Legal blindness, as defined in USA; I70.213 Atherosclerosis of native arteries of extremities with intermittent claudication, bilateral legs; Z79.01 Long term (current) use of anticoagulants
CPT/HCPCS: 36415; 36430; 36600; 72110; 72148; 75630; 75635; 80048; 80053; 80202; 82270; 82803; 82947; 82962; 83735; 84100; 84132; 84560; 85014; 85018; 85025; 85610; 85730; 86021; 86200; 86430; 86850; 86900; 86901; 86920; 87075; 87081; 88304; 90935; 93005; 93923; 93926; 93970; 96372; 96374; 96375; 97162; 97530; C1714; C1725; C1760; C1769; C1875; C1887; C1894; C2623; C9113; G0378; J0171; J1170; J1200; J1642; J1644; J1815; J2060; J2185; J2250; J2260; J2370; J2405; J2440; J2720; J3010; J3370; J3475; J7030; J7040; J7050; J7070; P9016; P9047; Q9967

== ENCOUNTER 2016-08-21 01:19 | Inpatient (IN) | payer MEDICARE, OTHER ==
[2016-08-21] VITALS (17 sets, daily range): BP systolic 109–151; BP diastolic 57–87; PULSE 58–84; RESP 18–20; Ht 172.7 cm; Wt 76.0 kg
[~2016-08-21] VITALS: Ht 172.7 cm; Wt 76.0 kg
[2016-08-21] MEDS ORDERED: NITROGLYCERIN 2% 1 GM OINT PKT TD STA (01:55)
[2016-08-21] MEDS ORDERED: ASPIRIN 81 MG TAB PO STA (01:55)
[2016-08-21] MEDS ORDERED: HYDROmorphONE 1 MG/ML SYG IV STA ×2 (01:55→03:12)
[2016-08-21] MEDS ORDERED: ONDANSETRON 4 MG INJ IV STA (01:55)
[2016-08-21 02:09] LABS: ADD SCAN DIFF NO
[2016-08-21 02:15] LABS: BASOPHIL # 0.1 10^3/ul (0.0-0.1); EOSINOPHILS # 0.7 10^3/ul (0.0-0.5); EOSINOPHILS % 11.1 % (0.0-7.0); HEMATOCRIT 27.9 % (42.0-52.0); HEMOGLOBIN 8.5 g/dl (14.0-18.0); LYMPHOCYTES # 1.1 10^3/ul (0.8-2.9); LYMPHOCYTES % 16.7 % (15.0-51.0); MEAN CORPUSCULAR HEMOGLOBIN 29.1 pg (29.0-33.0); MEAN CORPUSCULAR HGB CONC 30.5 g/dl (32.0-37.0); MEAN CORPUSCULAR VOLUME 95.5 fl (82.0-101.0); MONOCYTE # 0.7 10^3/ul (0.3-0.9); MONOCYTES % 11.7 % (0.0-11.0); NEUTROPHIL # 3.7 10^3/ul (1.6-7.5); NEUTROPHILS % 59.3 % (39.0-77.0); PLATELET COUNT 183 10^3/UL (140-415); RED BLOOD COUNT 2.92 10^6/ul (4.70-6.10); RED CELL DISTRIBUTION WIDTH 15.8 % (11.5-14.5); WHITE BLOOD COUNT 6.3 10^3/ul (4.8-10.8)
--- NOTE | 2016-08-21 02:20 | RADRPT ---
PROCEDURE: XR Chest. CLINICAL INDICATION: Chest pain. TECHNIQUE: Single frontal chest x-ray. COMPARISON: 07/08/2006 FINDINGS: Left subclavian central venous line with tip in the SVC is present. Heart is normal in size. There is plate-like atelectasis left lower lobe. There is no CHF.. No focal infiltrate is seen. There i s no pleural effusion. There is no pneumothorax. The osseous structures are unremarkable. IMPRESSION: Plate-like atelectasis at the left lung base. RPTAT: HMVK .Blaise Dial MD, Date Time Electronically viewed and signed by .Blaise Dial MD, on 08/21/2016 02:20 .K/
[2016-08-21 02:23] LABS: CHLORIDE 94 mmol/L (97-110); POTASSIUM 5.4 mmol/L (3.5-5.1); SODIUM 134 mmol/L (135-144)
[2016-08-21 02:24] LABS: INR 1.38; PT RATIO 1.3
[2016-08-21 02:25] LABS: PARTIAL THROMBOPLASTIN TIME 53.4 Sec (25.0-35.0)
[2016-08-21 02:26] LABS: CARBON DIOXIDE 24 mmol/L (21-31); CREATININE 6.85 mg/dl (0.61-1.24)
[2016-08-21 02:27] LABS: ANION GAP 21 (8-16); BLOOD UREA NITROGEN 74 mg/dl (7-20); CALCIUM 7.6 mg/dl (8.4-10.2); GLUCOSE 181 mg/dl (70-220)
--- NOTE | 2016-08-21 02:38 | ERA ---
ER Documentation Chief Complaint Date/Time DATE: 08/21/16 TIME: 02:35 Chief Complaint CP/pressure x 30min, radiates bilat jaw,neck,shoulders, less w/ ntg x3, asa HPI This a 51-year-old dialysis patient who is here for chest pain. The patient states she has had 3 prior myocardial infarctions since his last myocardial infarction was in April requiring stent placement. Patient states that 30 minutes prior to arrival the patient developed substernal chest pressure with radiation to both of the shoulders and to his neck and jaw. Some mild shortness of breath no diarrhea occasions or syncope. He states this is exactly like prior anginal episodes when he has heart attack. He states that the care facility gave him 3 nitroglycerin sublingual the first 1 did not think the second 2 helped. He also received aspirin p.o. patient states that his pain is mild currently ROS All systems reviewed and are negative except as per history of present illness. Medications Home Meds Active Scripts [Vancomycin Oral Syringe] 50 MG/ML SOLN No Conflict Check, 125 MG PO Q6 for 10 Days Prov:ANGELINA CASTREJON 07/01/16 Lactobacillus Acidoph/Bulgaricus* (Floranex*) 1 Each Tablet, 1 TAB PO TID for 30 Days, TAB Prov:ANGELINA CASTREJON 07/01/16 Clonidine Hcl* (Clonidine Hcl*) 0.1 Mg Tab, 0.1 MG PO Q6 for 30 Days, TAB Prov:ANGELINA CASTREJON 07/01/16 Hydromorphone Hcl* (Dilaudid*) 2 Mg Tablet, 2 MG PO Q6H Y for PAIN LEVEL 6-10, # 14 TAB Prov:PEDRO BENSON 05/31/16 Prasugrel Hydrochloride* (Effient*) 10 Mg Tablet, 10 MG PO DAILY for 30 Days, TAB Prov:PEDRO BENSON 05/01/16 Isosorbide Mononitrate* (Isosorbide Mononitrate*) 60 Mg Tab.er.24h, 60 MG PO DAILY for 30 Days Prov:PEDRO BENSON 05/01/16 Reported Medications Pramipexole* (Pramipexole*) 0.25 Mg Tablet, 0.25 MG PO HS, TAB 05/15/16 Lisinopril* (Zestril*) 10 Mg Tablet, 10 MG PO DAILY, #30 TAB 05/15/16 Insulin Lispro (Humalog) 100 Unit/1 Ml Cartridge, 0 SQ PT HAS PUMP 05/15/16 Sevelamer Hcl* (Renagel*) 800 Mg Tablet, 1600 MG PO WITH MEALS, TAB 01/14/16 Calcium Acetate* (Calcium Acetate*) 667 Mg Capsule, 1334 MG PO WITH MEALS, #60 CAP 01/14/16 Aspirin* (Aspirin* EC) 81 Mg Tablet.dr, 81 MG PO DAILY, TAB 12/21/15 Lorazepam* (Ativan*) 2 Mg Tablet, 2 MG PO HS, #30 TAB 12/21/15 Atorvastatin* (Atorvastatin*) 80 Mg Tablet, 80 MG PO QHS, #30 TAB 07/15/15 Diphenhydramine Hcl* (Benadryl*) 50 Mg Cap, 50 MG PO Q6 Y for ITCHING, CAP 07/15/15 Docusate Sodium* (Docusate Sodium*) 100 Mg Capsule, 100 MG PO BID, #60 CAP 07/15/15 Metoprolol Succinate* (Toprol XL*) 50 Mg Tab.er.24h, 50 MG PO BID, TAB PT DOES NOT TAKE ON SAT 07/09/14 Allergies Allergies: Coded Allergies: adhesive (Verified Allergy, Intermediate, 05/15/16) (+)itchiness/rash azithromycin (Verified Allergy, Intermediate, RASH, 05/15/16) erythromycin base (Verified Allergy, Intermediate, CRAMPS, 05/15/16) codeine (Verified Allergy, Mild, ABD. CRAMPS, 05/15/16) morphine (Verified Allergy, Unknown, 05/15/16) PMhx/Soc History of Surgery: Yes (STENT PLACEMENT, GROIN EMBOLISM, LT UPPER ARM DIALYSIS ACCESS, B rotator c) Anesthesia Reaction: No Hx 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 Disorder: No Hx Respiratory Disorders: No Hx Cardiac Disorders: Yes (HEART FAILURE, HTN ) Hx Psychiatric Problems: Yes (ANXIETY ) Hx Miscellaneous Medical Probl: Yes (ESRD, DM, nasal sx, Rt eye removal, PTCI) Hx Alcohol Use: No Hx Substance Use: No Hx Tobacco Use: No Smoking Status: Former smoker FmHx Family History: No coronary disease Physical Exam Vitals Vital Signs Date Time Temp Pulse Resp B/P Pulse Ox O2 Delivery O2 Flow Rate FiO2 3/9/17 02:48 75 21 132/77 99 Room Air 08/21/16 01:25 98.1 74 18 149/85 99 Physical Exam Const: Well-developed, well-nourished Head: Atraumatic, normocephalic Eyes: Normal Conjunctiva, PERRLA, EOMI, normal sclera, no nystagmus ENT: Normal External Ears, Nose and Mouth, moist mucus membranes. Neck: Full range of motion. No meningismus, no lymphadenopathy. Resp: Clear to auscultation bilaterally, no wheezing, rhonchi, rales Cardio: Regular rate and rhythm, no murmurs, S1 S2 present Abd: Soft, non tender x 4, non distended. Normal bowel sounds, no guarding or rebound, no pulsitile abdominal masses or bruits Skin: No petechiae or rashes, no ecchymosis , no maculopapular rash Back: No midline or flank tenderness Ext: No cyanosis, or edema, FROM x 4, normal inspection, neurovascularly intact x 4 Neur: Awake and alert, STR 5/5 x 4, sensation intact x 4, no focal findings, cerebellum intact Psych: Normal Mood and Affect Result Diagram: 08/21/16 0200 08/21/16 0200 Results 24 hrs Laboratory Tests Test 08/21/16 02:00 Activated Partial Thromboplast Time 53.4Sec Anion Gap 21 Basophils # 0.110^3/ul Basophils % 1.0% Blood Urea Nitrogen 74mg/dl Calcium Level 7.6mg/dl Carbon Dioxide Level 24mmol/L Chloride Level 94mmol/L Creatinine 6.85mg/dl Eosinophils # 0.710^3/ul Eosinophils % 11.1% Glucose Level 181mg/dl Hematocrit 27.9% Hemoglobin 8.5g/dl INR International Normalized Ratio 1.38 Lymphocytes # 1.110^3/ul Lymphocytes % 16.7% Mean Corpuscular Hemoglobin 29.1pg Mean Corpuscular Hemoglobin Concent 30.5g/dl Mean Corpuscular Volume 95.5fl Mean Platelet Volume 11.0fl Monocytes # 0.710^3/ul Monocytes % 11.7% Neutrophils # 3.710^3/ul Neutrophils % 59.3% Nucleated Red Blood Cells # 0.010^3/ul Nucleated Red Blood Cells % 0.0/100WBC Platelet Count 77343^3/UL Potassium Level 5.4mmol/L Prothrombin Time 17.0Sec Prothrombin Time Ratio 1.3 Red Blood Count 2.9210^6/ul Red Cell Distribution Width 15.8% Sodium Level 134mmol/L Troponin I < 0.012ng/ml White Blood Count 6.310^3/ul Current Medications Medications (Trade) Dose Ordered Sig/Angel Route PRN Reason Start Time Stop Time Status Last Admin Dose Admin Aspirin (Aspirin) 162 mg ONCE STAT PO 08/21/16 01:55 08/21/16 01:56 DC 08/21/16 02:07 Nitroglycerin (Nitroglycerin 2% Oint) 1 inch ONCE STAT TD 08/21/16 01:55 08/21/16 01:56 DC 08/21/16 02:07 Hydromorphone HCl (Dilaudid) 1 mg ONCE STAT IV 08/21/16 01:55 08/21/16 01:56 DC 08/21/16 02:07 Ondansetron HCl (Zofran Inj) 4 mg ONCE STAT IV 08/21/16 01:55 08/21/16 01:56 DC 08/21/16 02:06 Hydromorphone HCl (Dilaudid) 1 mg ONCE STAT IV 08/21/16 03:12 08/21/16 03:14 DC 08/21/16 03:18 Procedures/MDM PROCEDURE: XR Chest. CLINICAL INDICATION: Chest pain. TECHNIQUE: Single frontal chest x-ray. COMPARISON: 07/08/2006 FINDINGS: Left subclavian central venous line with tip in the SVC is present. Heart is normal in size. There is plate-like atelectasis left lower lobe. There is no CHF.. No focal infiltrate is seen. There is no pleural effusion. There is no pneumothorax. The osseous structures are unremarkable. IMPRESSION: Plate-like atelectasis at the left lung base. RPTAT: HMVK .Blaise Dial MD, Date Time Electronically viewed and signed by .Blaise Dial MD, on 08/21/2016 02:20 .K/ CC: SHARON DEY DO EKG: Rate/Rhythm: Normal sinus rhythm heart rate 77 with a first-degree AV block with PVCs QRS, ST, QT: NORMAL NE, QRS, QT] Impression: NORMAL EKG Patient's troponin is negative. Received Dilaudid here. He states his pain is better now. However the patient is requesting Dilaudid. There may be some drug -seeking behavior going on here. However the patient does have significant coronary artery disease. Patient's symptoms are concerning for cardiac cause will require inpatient workup and continuous monitoring. Further w/u for ischemia, arrhythmia, PE or dissection will be deferred to the inpatient team. Accepting Care Team: Current data and ongoing care discussed. Time: Time of admission Primary Provider: JULIO CESAR Consulting: JULIO CESAR Outstanding Data: none Departure Diagnosis: Primary Impression: Chest pain Qualified Code: R07.9 - Chest pain, unspecified type Condition: Stable SHARON DEY DO Aug 21, 2016 02:38
[2016-08-21 02:39] LABS: TROPONIN-I < 0.012 ng/ml (0.00-0.12)
[2016-08-21] MEDS ORDERED: SOD CHLORIDE 0.9% 1,000 ML IV SCH (03:31)
[2016-08-21] MEDS ORDERED: ONDANSETRON 4 MG INJ IV PRN ×2 (04:00→05:00)
[2016-08-21] MEDS ORDERED: ACETAMINOPHEN 325 MG TAB PO PRN (04:00)
[2016-08-21] MEDS: DIPHENHYDRAMINE 50 MG INJ IV PRN ×3 (05:01→19:14)
[2016-08-21] MEDS: HYDROmorphONE 1 MG/ML SYG IV PRN ×5 (05:05→21:42)
[2016-08-21] MEDS: ACCUCHECK XX SCH ×5 (07:30→21:36)
[2016-08-21 07:40] LABS: ADD SCAN DIFF NO
[2016-08-21 07:50] LABS: BASOPHIL # 0.1 10^3/ul (0.0-0.1); EOSINOPHILS # 0.7 10^3/ul (0.0-0.5); EOSINOPHILS % 12.2 % (0.0-7.0); HEMATOCRIT 27.9 % (42.0-52.0); HEMOGLOBIN 8.7 g/dl (14.0-18.0); MEAN CORPUSCULAR HEMOGLOBIN 29.8 pg (29.0-33.0); MEAN CORPUSCULAR HGB CONC 31.2 g/dl (32.0-37.0); MEAN CORPUSCULAR VOLUME 95.5 fl (82.0-101.0); MEAN PLATELET VOLUME 11.5 fl (7.4-10.4); MONOCYTE # 0.7 10^3/ul (0.3-0.9); NEUTROPHIL # 3.5 10^3/ul (1.6-7.5); NEUTROPHILS % 58.5 % (39.0-77.0); PLATELET COUNT 180 10^3/UL (140-415); RED BLOOD COUNT 2.92 10^6/ul (4.70-6.10); RED CELL DISTRIBUTION WIDTH 15.6 % (11.5-14.5)
[2016-08-21 08:04] LABS: POTASSIUM 5.2 mmol/L (3.5-5.1)
[2016-08-21 08:07] LABS: CREATININE 6.8 mg/dl (0.61-1.24)
[2016-08-21 08:08] LABS: CALCIUM 7.5 mg/dl (8.4-10.2)
[2016-08-21] MEDS: METOPROLOL (XL) 50 MG TAB PO SCH ×2 (10:30→21:22)
[2016-08-21] MEDS ORDERED: DIPHENHYDRAMINE 50 MG CAP PO PRN (10:30)
[2016-08-21] MEDS: DOCUSATE SODIUM 100 MG CAP PO SCH ×2 (10:30→21:20)
--- NOTE | 2016-08-21 10:59 | HP ---
Date/Time of Note Date/Time of Note DATE: 08/21/16 TIME: 10:30 Assessment/Plan VTE Prophylaxis VTE Prophylaxis Intervention: other Lines/Catheters IV Catheter Type (from Nrsg): Central Line Urinary Cath still in place: No Assessment/Plan Assessment/Plan -Chest pain- r/o acute coronary syndrome - cardioloogy consult appreciated- Dr Stephen notified - 2-D Echo- fu results - low cholesterol diet - ESRD - Nephrology consult appreciated - HD today - Diabetes Mellitus - Endocrinology consult appreciated- Dr. Haddad notified - Pain Right groin - Vascular consult appreciated- Dr Florence notified - Coronary artery disease. - Hypertension. We will continue Dilaudid p.r.n. for pain, resume home meds. Continue heparin for deep venous thrombosis prophylaxis and Pepcid for peptic ulcer disease prophylaxis. Further recommendations based on clinical course. Plan of care discussed with patient/Dr. Rosales/staff HPI/ROS Admit Date/Time Admit Date/Time Aug 21, 2016 at 03:32 Hx of Present Illness CP/pressure x 30min, radiates bilat jaw,neck,shoulders, less w/ ntg x3, asa HPI This a 51-year-old dialysis patient who is here for chest pain. The patient states she has had 3 prior myocardial infarctions since his last myocardial infarction was in April requiring stent placement. Patient states that 30 minutes prior to arrival the patient developed substernal chest pressure with radiation to both of the shoulders and to his neck and jaw. Some mild shortness of breath no diarrhea occasions or syncope. He states this is exactly like prior anginal episodes when he has heart attack. He states that the care facility gave him 3 nitroglycerin sublingual the first 1 did not think the second 2 helped. He also received aspirin p.o. patient states that his pain is mild currently ROS All systems reviewed and are negative except as per history of present illness. Medications Home Meds Active Scripts [Vancomycin Oral Syringe] 50 MG/ML SOLN No Conflict Check, 125 MG PO Q6 for 10 Days Prov:ANGELINA CASTREJON 07/01/16 Lactobacillus Acidoph/Bulgaricus* (Floranex*) 1 Each Tablet, 1 TAB PO TID for 30 Days, TAB Prov:ANGELINA CASTREJON 07/01/16 Clonidine Hcl* (Clonidine Hcl*) 0.1 Mg Tab, 0.1 MG PO Q6 for 30 Days, TAB Prov:ANGELINA CASTREJON 07/01/16 Hydromorphone Hcl* (Dilaudid*) 2 Mg Tablet, 2 MG PO Q6H Y for PAIN LEVEL 6-10, # 14 TAB Prov:WILBERTOMADDIEPEDRO 05/31/16 Prasugrel Hydrochloride* (Effient*) 10 Mg Tablet, 10 MG PO DAILY for 30 Days, TAB Prov:SILVESTRERUTHPEDRO 05/01/16 Isosorbide Mononitrate* (Isosorbide Mononitrate*) 60 Mg Tab.er.24h, 60 MG PO DAILY for 30 Days Prov:SILVESTRERUTHPEDRO 05/01/16 Reported Medications Pramipexole* (Pramipexole*) 0.25 Mg Tablet, 0.25 MG PO HS, TAB 05/15/16 Lisinopril* (Zestril*) 10 Mg Tablet, 10 MG PO DAILY, #30 TAB 05/15/16 Insulin Lispro (Humalog) 100 Unit/1 Ml Cartridge, 0 SQ PT HAS PUMP 05/15/16 Sevelamer Hcl* (Renagel*) 800 Mg Tablet, 1600 MG PO WITH MEALS, TAB 01/14/16 Calcium Acetate* (Calcium Acetate*) 667 Mg Capsule, 1334 MG PO WITH MEALS, #60 CAP 01/14/16 Aspirin* (Aspirin* EC) 81 Mg Tablet.dr, 81 MG PO DAILY, TAB 12/21/15 Lorazepam* (Ativan*) 2 Mg Tablet, 2 MG PO HS, #30 TAB 12/21/15 Atorvastatin* (Atorvastatin*) 80 Mg Tablet, 80 MG PO QHS, #30 TAB 07/15/15 Diphenhydramine Hcl* (Benadryl*) 50 Mg Cap, 50 MG PO Q6 Y for ITCHING, CAP 07/15/15 Docusate Sodium* (Docusate Sodium*) 100 Mg Capsule, 100 MG PO BID, #60 CAP 07/15/15 Metoprolol Succinate* (Toprol XL*) 50 Mg Tab.er.24h, 50 MG PO BID, TAB PT DOES NOT TAKE ON SAT 07/09/14 Allergies Allergies: Coded Allergies: adhesive (Verified Allergy, Intermediate, 05/15/16) (+)itchiness/rash azithromycin (Verified Allergy, Intermediate, RASH, 05/15/16) erythromycin base (Verified Allergy, Intermediate, CRAMPS, 05/15/16) codeine (Verified Allergy, Mild, ABD. CRAMPS, 05/15/16) morphine (Verified Allergy, Unknown, 05/15/16) ROS Eyes: no complaints ENT: no complaints Respiratory: no complaints Cardiovascular: no complaints Gastrointestinal: no complaints Genitourinary: no complaints Musculoskeletal: back pain Skin: no complaints Neurologic: no complaints Endocrine: no complaints Lymphatic: no complaints Psychological: no complaints Immunologic: no complaints PMH/Family/Social Past Medical History PMhx/Soc History of Surgery: Yes (STENT PLACEMENT, GROIN EMBOLISM, LT UPPER ARM DIALYSIS ACCESS, B rotator c) Anesthesia Reaction: No Hx 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 Disorder: No Hx Respiratory Disorders: No Hx Cardiac Disorders: Yes (HEART FAILURE, HTN ) Hx Psychiatric Problems: Yes (ANXIETY ) Hx Miscellaneous Medical Probl: Yes (ESRD, DM, nasal sx, Rt eye removal, PTCI) Hx Alcohol Use: No Hx Substance Use: No Hx Tobacco Use: No Smoking Status: Former smoker FmHx Family History: No coronary disease Past Surgical History 07/2016- sp right groin aneyurism Past Surgical Hx: other Social History Smoking Status: Never smoker Exam/Review of Systems Vital Signs Vitals Vital Signs Date Time Temp Pulse Resp B/P Pulse Ox O2 Delivery O2 Flow Rate FiO2 08/21/16 08:16 68 08/21/16 07:50 98.0 20 143/72 98 08/21/16 05:29 Room Air Exam Constitutional: alert, oriented, well developed Psych: nl mood/affect Head: atraumatic, hematomas Eyes: EOMI, PERRL ENMT: nl external ears & nose Neck: non-tender Respiratory: clear to auscultation Cardiovascular: nl pulses Gastrointestinal: non-tender, soft Musculoskeletal: nl extremities to inspection, other Extremities: normal pulses 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: nl mental status, nl speech Skin: other Lymph: nontender Labs Result Diagram: 08/21/16 0632 08/21/16 0632 Medications Medications Current Medications Sodium Chloride (NS) 1,000 ml @ 80 mls/hr [id number] IV ; Start 08/21/16 at 03:31; Stop 08/21/16 at 16:00 Ondansetron HCl (Zofran Inj) 4 mg Q6H PRN IV NAUSEA AND/OR VOMITING; Start 08/21 at 05:00 Diphenhydramine HCl (Benadryl) 25 mg Q6H PRN IV ITCHING Last administered on t 05:01; Admin Dose 25 MG; Start 08/21/16 at 05:00 Hydromorphone HCl (Dilaudid) 1 mg Q3H PRN IV PAIN; Start 08/21/16 at 12:00 Aspirin (Halfprin) 81 mg DAILY PO ; Start 08/21/16 at 10:30; Status UNV Atorvastatin Calcium (Lipitor) 80 mg QHS PO ; Start 08/21/16 at 21:00; Status UNV Clonidine (Catapres) 0.1 mg Q6 PO ; Start 08/21/16 at 12:00; Status UNV Diphenhydramine HCl (Benadryl) 50 mg Q6 PRN PO ITCHING; Start 08/21/16 at 10:30 ; Status UNV Docusate Sodium (Colace) 100 mg BID PO ; Start 08/21/16 at 10:30; Status UNV Isosorbide Mononitrate (Imdur) 60 mg DAILY PO ; Start 08/21/16 at 10:30; Status UNV Lactobacillus Acidoph/Bulgaricus (Floranex) 1 tab TID PO ; Start 08/21/16 at 13: 00; Status UNV Lisinopril (Zestril) 10 mg DAILY PO ; Start 08/21/16 at 10:30; Status UNV Lorazepam (Ativan) 2 mg HS PO ; Start 08/21/16 at 21:00; Status UNV Metoprolol Succinate (Toprol Xl) 50 mg BID PO ; Start 08/21/16 at 10:30; Status UNV Pramipexole (Mirapex) 0.25 mg HS PO ; Start 08/21/16 at 21:00; Status UNV Prasugrel (Effient) 10 mg DAILY PO ; Start 08/21/16 at 10:30; Status UNV Procedures Procedures PROCEDURE: XR Chest. CLINICAL INDICATION: Chest pain. TECHNIQUE: Single frontal chest x-ray. COMPARISON: 07/08/2006 FINDINGS: Left subclavian central venous line with tip in the SVC is present. Heart is normal in size. There is plate-like atelectasis left lower lobe. There is no CHF.. No focal infiltrate is seen. There is no pleural effusion. There is no pneumothorax. The osseous structures are unremarkable. IMPRESSION: Plate-like atelectasis at the left lung base. RPTAT: HMVK .Blaise Dial MD, MD Date Time Electronically viewed and signed by .Blaise Dial MD, MD on 08/21/2016 02:20 .K/ CC: SHARON DEY DO EKG: Rate/Rhythm: Normal sinus rhythm heart rate 77 with a first-degree AV block with PVCs QRS, ST, QT: NORMAL VT, QRS, QT] Impression: NORMAL EKG Patient's troponin is negative. Received Dilaudid here. He states his pain is better now. However the patient is requesting Dilaudid. There may be some drug -seeking behavior going on here. However the patient does have significant coronary artery disease. Patient's symptoms are concerning for cardiac cause will require inpatient workup and continuous monitoring. Further w/u for ischemia, arrhythmia, PE or dissection will be deferred to the inpatient team. Accepting Care Team: Current data and ongoing care discussed. Time: Time of admission Primary Provider: XOXOXO Consulting: XOXOXO Outstanding Data: none Departure Diagnosis: Primary Impression: Chest pain Qualified Code: R07.9 - Chest pain, unspecified type Condition: Stable PEDRO BENSON Aug 21, 2016 10:40
[2016-08-21] MEDS ORDERED: LORAZEPAM 2 MG INJ IV ONE (12:00)
[2016-08-21] MEDS: LORAZEPAM 2 MG INJ IV PRN (12:19)
--- NOTE | 2016-08-21 13:55 | CONS ---
DATE OF ADMISSION: 08/21/2016 DATE OF CONSULTATION: TYPE OF CONSULTATION: Renal. Thank you, Dr. Rosales, for asking me to participate in medical management of this patient. REASON FOR CONSULTATION: End-stage renal disease. HISTORY OF PRESENT ILLNESS: This 51-year-old man was admitted this morning because of substernal ch est pain. The patient has a history of end-stage renal disease and is on maintenance hemodialysis T , and Thursday. Today being , he is due for his routine hemodialysis treatme nt. The patient was apparently well until this morning when he developed some substernal chest pain that radiated up into both shoulders and to his neck and jaw. The patient was given 3 nitroglyceri n sublingually and the pain did subside some. The patient was transferred from his custodial facility, [facility], to [facility] Emergency Room. The patient was evaluate d there and he was admitted to a telemetry floor in the hospital. The patient is well-known to me from multiple prior admissions. He has end-stage renal disease due to diabetic nephropathy. He was just discharged from this hospital 2 weeks ago after a long admissi on. During that admission, the patient was having lower extremity pain and he underwent an angiogra m with stent placement in the left superficial femoral artery. The patient did have a right superfi cial femoral artery pseudoaneurysm that required surgery. He also developed a DVT of the right leg and has been on Eliquis 2.5 mg twice a day. The patient at this time is undergoing dialysis. The p atient is lethargic after receiving his pre-dialysis medication which includes Ativan and Benadryl. PAST MEDICAL HISTORY: 1. Remarkable for end-stage renal disease due to diabetic nephropathy. 2. Type 1 diabetes, uses an insulin pump. 3. Coronary artery disease, status post acute myocardial infarction in the past, status post stent placement in April of 2016. 4. Hypertension. 5. Anemia of chronic disease. 6. History of Clostridium difficile colitis. 7. History of urinary tract infections. 8. Diabetic retinopathy. 9. Prosthetic right eye. 10. Shoulder rotator cuff tear. CURRENT MEDICATIONS: Include the followin. Atorvastatin 80 mg a day. 2. Mirapex 0.25 mg at bedtime. 3. Calcium acetate 3 times a day with meals. 4. Aspirin 81 mg a day. 5. Imdur 60 mg a day 6. Floranex 1 tablet 3 times a day. 7. Metoprolol succinate extended release 50 mg twice a day. 8. Effient 10 mg a day. 9. Insulin pump. 10. Eliquis 2.5 mg twice a day. ALLERGIES: 1. CODEINE. 2. MORPHINE. 3. ZITHROMAX. PAST SURGICAL HISTORY: Coronary artery stent placed in the LAD in March 2016, multiple surgeries for arteriovenous access for hemodialysis, last having a left upper arm AV graft placed. He does osorio ve a Port-A-Cath in place. FAMILY HISTORY: Positive for coronary artery disease. SOCIAL HISTORY: The patient does not smoke nor drink alcohol. PHYSICAL EXAMINATION: GENERAL: At this time reveals a well-developed man who is currently having hemodialysis. VITAL SIGNS: Temperature is 98, pulse of 82, respirations 20, blood pressure 145/72, O2 saturation 95% on room air. HEENT: Head normocephalic. NOSE AND MOUTH: Normal. NECK: Supple. No neck vein distention. LUNGS: Clear. HEART: Regular rhythm. No murmurs, gallops or rubs. ABDOMEN: Soft, nontender. EXTREMITIES: He does have trace to +1 pretibial edema in both lower extremities. IMPRESSION: 1. End-stage renal disease. This patient is on maintenance hemodialysis Thursday, and and is due for his routine hemodialysis treatment today. He is currently being dialyzed. 2. Chest pain, rule out acute coronary syndrome. Patient does have a history of coronary artery di sease. His 2 troponins have been negative thus far. 3. Anemia of chronic kidney disease. 4. Type 1 diabetes mellitus on insulin pump. 5. Peripheral artery disease. 6. Hypertension. PLAN: 1. I will continue to follow the patient and will order dialysis Thursday, , Thursday or as needed to control his fluid balance and his potassium. 2. The patient will have a cardiac workup to rule out cardiac ischemia as a cause of his chest pain . 3. Restart the patient on Epogen. 4. I will follow the patient along with you. Dictated By: DONY HOWARD MD, ND/SERGO Conf#: [id number] KEHINDE#: [id number]
[2016-08-21] MEDS: LACTOBACILLUS CHEW TAB PO SCH ×2 (15:05→21:20)
[2016-08-21] MEDS: SEVELAMER 800 MG TAB PO SCH ×2 (15:05→18:05)
[2016-08-21] MEDS: CALCIUM ACETATE 667 MG CAP PO SCH ×2 (15:05→18:05)
[2016-08-21] MEDS: PATIROMER CALCIUM SORBITEX 16.8 GM PKT PO SCH (15:06)
[2016-08-21] MEDS: EPOETIN 10000 UNITS/1 ML INJ (ESRD) SC SCH (17:00)
--- NOTE | 2016-08-21 18:25 | CONS ---
Date/Time of Note Date/Time of Note DATE: 08/21/16 TIME: 18:07 Assessment/Plan Assessment/Plan Problems: (1) Diabetes mellitus type 1 with complications Status: Chronic Comment: Type 1 Diabetes Mellitus with chronic complications on insulin pump for insulin delivery. Blood glucose suboptimal at this time. Target glucose 100- 180mg/dl. Will instruct patient to make appropriate corrections through his insulin delivery system. Will follow patients blood glucose levels and make suggestions as needed. Consultation Date/Type/Reason Admit Date/Time Aug 21, 2016 at 03:32 Date of Consultation: Aug 21, 2016 Type of Consultation: Endorcrine Reason for Consultation Glycemic management in a Type 1 Diabetic on an insulin pump. Referring Provider: WILMER RODRIGUEZ MD Hx of Present Illness 51 year old man with Type 1 Diabetes Mellitus with multiple chronic complications including retinopathy, nephropathy/ESRD on hemodialysis and vascular complications. Brought in from SNF where he resides to the [facility] with complaint of substernal chest pain radiating to both extremities, neck and jaw. At the SNF he received 3 doses sublingual nitroglycerin and aspirin with improved chest pain. Given his previous cardiovascular history he is admitted for further work up. I have been asked to see Mr. Lyons; who is well known to me, for assistance of his diabetes and insulin pump management. Constitutional: no complaints Eyes: no complaints ENT: no complaints Respiratory: no complaints Cardiovascular: no complaints (no chest pain at this time) Gastrointestinal: no complaints Genitourinary: no complaints Musculoskeletal: back pain Skin: no complaints Neurologic: no complaints Endocrine: no complaints, other (notable hyperglycemia) Lymphatic: no complaints Psychological: nl mood/affect Immunologic: no complaints Past Medical History Medical History: angina, coronary artery disease, deep vein thrombosis, diabetes, irritable bowel syndrome, renal disease Past Surgical History Past Surgical Hx: angioplasty (femoral pseudo aneurysmectomy, A-V fistula formation, exnucleation of right eye), other Family History Significant Family History: no pertinent family hx Social History Alcohol Use: none Smoking Status: Never smoker Drug Use: marijuana Other Social History with 2 children Exam/Review of Systems Vital Signs Vitals Vital Signs Date Time Temp Pulse Resp B/P Pulse Ox O2 Delivery O2 Flow Rate FiO2 08/21/16 16:25 84 08/21/16 15:00 98.1 20 115/63 93 08/21/16 05:29 Room Air Exam Constitutional: alert, oriented, well developed Psych: no complaints Head: normocephalic Eyes: other (right prosthetic eye) ENMT: mucosa pink and moist Neck: non-tender, supple Respiratory: clear to auscultation, normal air movement Cardiovascular: nl pulses, regular rate and rhythm Gastrointestinal: soft Musculoskeletal: nl extremities to inspection 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: other (grossly intact) Skin: nl turgor Results POC glucose reviewed Result Diagram: 08/21/16 0632 08/21/16 0632 Results 24 hrs Laboratory Tests Test 08/21/16 02:00 08/21/16 06:32 08/21/16 07:56 08/21/16 11:17 Activated Partial Thromboplast Time 53.4 H Anion Gap 21 H 24 H Basophils # 0.1 0.1 Basophils % 1.0 1.0 Blood Urea Nitrogen 74 H 76 H Calcium Level 7.6 L 7.5 L Carbon Dioxide Level 24 21 Chloride Level 94 L 92 L Creatinine 6.85 H 6.80 H Eosinophils # 0.7 H 0.7 H Eosinophils % 11.1 H 12.2 H Glucose Level 181 240 H Hematocrit 27.9 L 27.9 L Hemoglobin 8.5 L 8.7 L INR International Normalized Ratio 1.38 Lymphocytes # 1.1 1.0 Lymphocytes % 16.7 17.0 Mean Corpuscular Hemoglobin 29.1 29.8 Mean Corpuscular Hemoglobin Concent 30.5 L 31.2 L Mean Corpuscular Volume 95.5 95.5 Mean Platelet Volume 11.0 H 11.5 H Monocytes # 0.7 0.7 Monocytes % 11.7 H 11.0 Neutrophils # 3.7 3.5 Neutrophils % 59.3 58.5 Nucleated Red Blood Cells # 0.0 0.0 Nucleated Red Blood Cells % 0.0 0.0 Platelet Count 183 180 Potassium Level 5.4 H 5.2 H Prothrombin Time 17.0 H Prothrombin Time Ratio 1.3 Red Blood Count 2.92 L 2.92 L Red Cell Distribution Width 15.8 H 15.6 H Sodium Level 134 L 132 L Troponin I < 0.012 < 0.012 White Blood Count 6.3 6.0 Bedside Glucose 241 H 248 H Test 08/21/16 15:43 Troponin I < 0.012 Medications Medications Current Medications Ondansetron HCl (Zofran Inj) 4 mg Q6H PRN IV NAUSEA AND/OR VOMITING; Start 08/21 at 05:00 Diphenhydramine HCl (Benadryl) 25 mg Q6H PRN IV ITCHING Last administered on 05:01; Admin Dose 25 MG; Start 08/21/16 at 05:00 Hydromorphone HCl (Dilaudid) 1 mg Q3H PRN IV PAIN Last administered on 15:08; Admin Dose 1 MG; Start 08/21/16 at 12:00 Aspirin (Halfprin) 81 mg DAILY PO ; Start 08/21/16 at 10:30 Atorvastatin Calcium (Lipitor) 80 mg QHS PO ; Start 08/21/16 at 21:00 Clonidine (Catapres) 0.1 mg Q6 PO ; Start 08/21/16 at 12:00 Diphenhydramine HCl (Benadryl) 50 mg Q6 PRN PO ITCHING; Start 08/21/16 at 10:30 Docusate Sodium (Colace) 100 mg BID PO ; Start 08/21/16 at 10:30 Isosorbide Mononitrate (Imdur) 60 mg DAILY PO ; Start 08/21/16 at 10:30 Lactobacillus Acidoph/Bulgaricus (Floranex) 1 tab TID PO Last administered on 15:05; Admin Dose 1 TAB; Start 08/21/16 at 13:00 Lisinopril (Zestril) 10 mg DAILY PO ; Start 08/21/16 at 10:30 Lorazepam (Ativan) 2 mg HS PO ; Start 08/21/16 at 21:00 Metoprolol Succinate (Toprol Xl) 50 mg BID PO ; Start 08/21/16 at 10:30 Pramipexole (Mirapex) 0.25 mg HS PO ; Start 08/21/16 at 21:00 Prasugrel (Effient) 10 mg DAILY PO ; Start 08/21/16 at 10:30 Diphenhydramine HCl (Benadryl) 50 mg PRN PRN IV GIVE PRIOR TO EACH HD Last administered on 08/21/16 12:18; Admin Dose 50 MG; Start 08/21/16 at 12:00 Lorazepam (Ativan) 1 mg PRN PRN IV PRIOR TO EACH HD Last administered on t 12:19; Admin Dose 1 MG; Start 08/21/16 at 12:30 Epoetin Fredy (Epogen (Esrd)) 10,000 units TuThSa@17 SC ; Start 08/21/16 at 17:00 Apixaban (Eliquis) 2.5 mg BID PO ; Start 08/21/16 at 21:00 KALPANA MARTINEZ MD Aug 21, 2016 18:19
[2016-08-21] MEDS ORDERED: GLUCOSE GEL 15 GRAM TUBE PO PRN ×2 (19:00)
[2016-08-21] MEDS ORDERED: GLUCAGON 1 MG INJ IM PRN (19:00)
[2016-08-21] MEDS ORDERED: GLUCOSE GEL 15 GRAM TUBE BUCCAL PRN (19:00)
[2016-08-21] MEDS ORDERED: DEXTROSE 50% 50 ML SYRINGE IV PRN ×2 (19:00)
[2016-08-21] MEDS: ASPIRIN (EC) 81 MG TAB PO SCH (19:30)
[2016-08-21] MEDS: ISOSORBIDE MONONITRATE(SR)60 MG TAB PO SCH (19:30)
[2016-08-21] MEDS: LISINOPRIL 10 MG TAB PO SCH (19:31)
--- NOTE | 2016-08-21 19:37 | RADRPT ---
Echocardiogram Report Patient Name: XOCHILT SAUCEDO Gender: Male Date: 1965 Study Date: 21-Aug-2016 Quarter Trimmer: Layne Owens [facility] Location: 5559 Ref. Physician: PEDRO BENSON Quality: Good Procedures: Transthoracic echocardiogram with complete 2D, M-Mode, and doppler examination. Indications: Chest Pain. 2D/M Mode Doppler Measurement Value Normal Ranges Measurement Value Normal Ranges LVIDd 2D 4.7 3.5 - 5.6 cm AV Peak Mitesh 1.7 m/sec LVIDs 2D 2.7 2.1 - 4.1 cm AV Peak PG 11.0 mmHg FS 2D 42.9 % LVOT Peak Mitesh 1.3 m/sec LVPWd 2D 1.0 0.6 - 1.1 cm LVOT Peak PG 7.0 mmHg IVSd 2D 1.1 0.6 - 1.1 cm MV E Peak Mitesh 0.8 m/sec IVS/LVPW 2D 1.1 MV A Peak Mitesh 1.1 m/sec AoR Diam 2D 2.6 2.0 - 3.7 cm MV E/A 0.7 LA/Ao 2D 2 0 - 1 MV Decel Time 141 msec EDV 2D 103.0 cm3 MV E/A 0.7 ESV 2D 19.0 cm3 TR Peak Mitesh 2.6 m/sec LA Dimen 2D 4.2 2.3 - 4.0 cm TR Peak PG 27.0 mmHg RVSP 35.0 mmHg Findings Left Ventricle: Normal left ventricular systolic function. Normal left ventricular cavity size. Mild concentric left ventricular hypertrophy. Ejection fraction is visually estimated at 65 %. Tissue Doppler/Mitral Doppler indices are consistent with impaired relaxation (Stage I diastolic dysfunction). Right Ventricle: Normal right ventricular size. Normal right ventricular systolic function. Left Atrium: There is mild enlargement of left atrium. Right Atrium: The right atrium is normal in size. Mitral Valve: Mitral valve leaflets appear mildly thickened. Mild mitral annular calcification. Trace mitral regurgitation. Aortic Valve: No significant aortic stenosis or insufficiency. Aortic cusps appear mildly calcified. Tricuspid Valve: Normal appearance of the tricuspid valve. Estimated peak PA systolic pressure 35 mmHg. There is mild tricuspid regurgitation. Pulmonic Valve: Pulmonic valve not well visualized. Pericardium: Normal pericardium with no significant pericardial effusion. Aorta: Normal aortic root. IVC: Dilated IVC with respiratory collapse consistent with elevated right atrial pressure. Conclusions Normal left ventricular systolic function. Normal left ventricular cavity size. Mild concentric left ventricular hypertrophy. Ejection fraction is visually estimated at 65 %. Tissue Doppler/Mitral Doppler indices are consistent with impaired relaxation (Stage I diastolic dysfunction). Mitral valve leaflets appear mildly thickened. Mild mitral annular calcification. Trace mitral regurgitation. No significant aortic stenosis or insufficiency. Aortic cusps appear mildly calcified. Normal appearance of the tricuspid valve. Estimated peak PA systolic pressure 35 mmHg. There is mild tricuspid regurgitation. Electronically Signed By: Lola Stephen 21-Aug-2016 19:36:46 -0800 Patient Name: XOCHILT SAUCEDO Study Date: 21-Aug-2016 [id number]
--- NOTE | 2016-08-21 19:56 | CONS ---
Date/Time of Note Date/Time of Note DATE: 08/21/16 TIME: 19:52 Assessment/Plan Assessment/Plan Problems: (1) Paresthesia Status: Acute (2) Swelling Status: Acute (3) Headache Status: Acute (4) Sinusitis Status: Acute (5) Paresthesias Status: Acute (6) Leg cramp Status: Acute (7) Presence of suprapubic catheter Status: Acute (8) Obstruction of suprapubic catheter Status: Acute (9) Complication of Foster catheter Status: Acute (10) Acute weakness Status: Acute (11) Moderate nausea Status: Acute (12) Hypocalcemia Status: Acute (13) UTI (urinary tract infection) Status: Acute (14) Hypocalcemia Status: Chronic (15) Diabetic ketoacidosis Status: Resolved (16) Dialysis patient Status: Chronic (17) Genitourinary symptoms Status: Acute (18) Hyperkalemia Status: Acute (19) Constipation Status: Acute (20) Hyperkalemia, diminished renal excretion Status: Acute (21) Abdominal pain Status: Acute (22) Retention of urine Status: Acute (23) Diarrhea Status: Acute (24) Nausea Status: Acute (25) Vomiting Status: Acute (26) Diabetes mellitus type 1, controlled, with complications Status: Chronic (27) Chronic pain Status: Chronic (28) 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, with long- term current use of insulin Status: Chronic (29) Chronic renal insufficiency Status: Chronic (30) Peripheral vascular disease (31) Diabetes mellitus type 1 with complications Status: Chronic (32) Scrotal erythema Status: Acute (33) Chest pain Status: Acute Qualifiers: Qualified Code: R07.9 - Chest pain, unspecified type (34) HTN (hypertension) Status: Chronic (35) DM (diabetes mellitus) type 1 with ketoacidosis Status: Acute (36) CKD (chronic kidney disease) stage 5, GFR less than 15 ml/min Status: Chronic (37) Type 1 diabetes mellitus with diabetic nephropathy Status: Chronic (38) End stage renal failure on dialysis Status: Chronic (39) Shunt malfunction Status: Acute Additional Assessment/Plan Patient with stable angina neg trop non ischemic EKG plan for medical management and out pt f./u patient has severe PAD plan to see me out pt with possible revascularization of his right lower extremity by me. otherwise doing fine will continue med mx Consultation Date/Type/Reason Admit Date/Time Aug 21, 2016 at 03:32 Date of Consultation: Aug 21, 2016 Type of Consultation: Interventional Cardiology Reason for Consultation CP Hx of Present Illness Patient is my patient from out pt, He has last SC sept with [employer] s/p PCi by me at [facility]. He has ESRD and PAD with plan to open his Right SFA out pt.came in with CP, stable angina. trop neg x 2. Echo with normal wall motion and normal function. EKG non ischemic. Constitutional: no complaints Eyes: no complaints ENT: no complaints Respiratory: no complaints Cardiovascular: no complaints (no chest pain at this time) Gastrointestinal: no complaints Genitourinary: no complaints Musculoskeletal: back pain Skin: no complaints Neurologic: no complaints Endocrine: no complaints, other (notable hyperglycemia) Lymphatic: no complaints Psychological: no complaints Immunologic: no complaints Past Medical History Medical History: angina, coronary artery disease, deep vein thrombosis, diabetes, irritable bowel syndrome, renal disease Past Surgical History Past Surgical Hx: angioplasty (femoral pseudo aneurysmectomy, A-V fistula formation, exnucleation of right eye), other Social History Alcohol Use: none Smoking Status: Never smoker Drug Use: marijuana Exam/Review of Systems Vital Signs Vitals Vital Signs Date Time Temp Pulse Resp B/P Pulse Ox O2 Delivery O2 Flow Rate FiO2 08/21/16 16:25 84 08/21/16 15:00 98.1 20 115/63 93 08/21/16 05:29 Room Air Exam Constitutional: alert, oriented Psych: no complaints Head: normocephalic Eyes: nl conjunctiva ENMT: nl external ears & nose Neck: supple Respiratory: clear to auscultation Cardiovascular: regular rate and rhythm Gastrointestinal: nl liver, spleen, soft Results Result Diagram: 08/21/16 0632 08/21/16 0632 Results 24 hrs Laboratory Tests Test 08/21/16 02:00 08/21/16 06:32 08/21/16 07:56 08/21/16 11:17 Activated Partial Thromboplast Time 53.4 H Anion Gap 21 H 24 H Basophils # 0.1 0.1 Basophils % 1.0 1.0 Blood Urea Nitrogen 74 H 76 H Calcium Level 7.6 L 7.5 L Carbon Dioxide Level 24 21 Chloride Level 94 L 92 L Creatinine 6.85 H 6.80 H Eosinophils # 0.7 H 0.7 H Eosinophils % 11.1 H 12.2 H Glucose Level 181 240 H Hematocrit 27.9 L 27.9 L Hemoglobin 8.5 L 8.7 L INR International Normalized Ratio 1.38 Lymphocytes # 1.1 1.0 Lymphocytes % 16.7 17.0 Mean Corpuscular Hemoglobin 29.1 29.8 Mean Corpuscular Hemoglobin Concent 30.5 L 31.2 L Mean Corpuscular Volume 95.5 95.5 Mean Platelet Volume 11.0 H 11.5 H Monocytes # 0.7 0.7 Monocytes % 11.7 H 11.0 Neutrophils # 3.7 3.5 Neutrophils % 59.3 58.5 Nucleated Red Blood Cells # 0.0 0.0 Nucleated Red Blood Cells % 0.0 0.0 Platelet Count 183 180 Potassium Level 5.4 H 5.2 H Prothrombin Time 17.0 H Prothrombin Time Ratio 1.3 Red Blood Count 2.92 L 2.92 L Red Cell Distribution Width 15.8 H 15.6 H Sodium Level 134 L 132 L Troponin I < 0.012 < 0.012 White Blood Count 6.3 6.0 Bedside Glucose 241 H 248 H Test 08/21/16 15:43 08/21/16 19:18 Troponin I < 0.012 Bedside Glucose 193 Medications Medications Current Medications Ondansetron HCl (Zofran Inj) 4 mg Q6H PRN IV NAUSEA AND/OR VOMITING; Start 08/21 at 05:00 Diphenhydramine HCl (Benadryl) 25 mg Q6H PRN IV ITCHING Last administered on 19:14; Admin Dose 25 MG; Start 08/21/16 at 05:00 Hydromorphone HCl (Dilaudid) 1 mg Q3H PRN IV PAIN Last administered on 18:42; Admin Dose 1 MG; Start 08/21/16 at 12:00 Aspirin (Halfprin) 81 mg DAILY PO Last administered on 08/21/16 19:30; Admin Dose 81 MG; Start 08/21/16 at 10:30 Atorvastatin Calcium (Lipitor) 80 mg QHS PO ; Start 08/21/16 at 21:00 Clonidine (Catapres) 0.1 mg Q6 PO Last administered on 08/21/16 19:09; Admin Dose 0.1 MG; Start 08/21/16 at 12:00 Diphenhydramine HCl (Benadryl) 50 mg Q6 PRN PO ITCHING; Start 08/21/16 at 10:30 Docusate Sodium (Colace) 100 mg BID PO ; Start 08/21/16 at 10:30 Isosorbide Mononitrate (Imdur) 60 mg DAILY PO Last administered on 08/21/16 19: 30; Admin Dose 60 MG; Start 08/21/16 at 10:30 Lactobacillus Acidoph/Bulgaricus (Floranex) 1 tab TID PO Last administered on 15:05; Admin Dose 1 TAB; Start 08/21/16 at 13:00 Lisinopril (Zestril) 10 mg DAILY PO Last administered on 08/21/16 19:31; Admin Dose 10 MG; Start 08/21/16 at 10:30 Lorazepam (Ativan) 2 mg HS PO ; Start 08/21/16 at 21:00 Metoprolol Succinate (Toprol Xl) 50 mg BID PO ; Start 08/21/16 at 10:30 Pramipexole (Mirapex) 0.25 mg HS PO ; Start 08/21/16 at 21:00 Prasugrel (Effient) 10 mg DAILY PO ; Start 08/21/16 at 10:30 Diphenhydramine HCl (Benadryl) 50 mg PRN PRN IV GIVE PRIOR TO EACH HD Last administered on 08/21/16 12:18; Admin Dose 50 MG; Start 08/21/16 at 12:00 Lorazepam (Ativan) 1 mg PRN PRN IV PRIOR TO EACH HD Last administered on 12:19; Admin Dose 1 MG; Start 08/21/16 at 12:30 Epoetin Fredy (Epogen (Esrd)) 10,000 units TuThSa@17 SC Last administered on 08/21 17:00; Admin Dose 10,000 UNITS; Start 08/21/16 at 17:00 Apixaban (Eliquis) 2.5 mg BID PO ; Start 08/21/16 at 21:00 Miscellaneous Information 1 ea NOTE XX ; Start 08/21/16 at 19:00 Glucose (Glutose) 15 gm Q15M PRN PO DECREASED GLUCOSE; Start 08/21/16 at 19:00 Glucose (Glutose) 22.5 gm Q15M PRN PO DECREASED GLUCOSE; Start 08/21/16 at 19:00 Dextrose (D50w Syringe) 25 ml Q15M PRN IV DECREASED GLUCOSE; Start 08/21/16 at 19:00 Dextrose (D50w Syringe) 50 ml Q15M PRN IV DECREASED GLUCOSE; Start 08/21/16 at 19:00 Glucagon (Glucagen) 1 mg Q15M PRN IM DECREASED GLUCOSE; Start 08/21/16 at 19:00 Glucose (Glutose) 15 gm Q15M PRN BUCCAL DECREASED GLUCOSE; Start 08/21/16 at 19: 00 CYNDIE GARCIA MD Aug 21, 2016 19:56
[2016-08-21] MEDS: [UNRECOGNIZED DRUG - OTHER] SC SCH (21:00)
[2016-08-21] MEDS ORDERED: INSULIN ASPART [NOVOLOG] 3 ML PEN SC SCH (21:00)
[2016-08-21] MEDS ORDERED: DIPHENHYDRAMINE 50 MG INJ IV PRN (21:00)
[2016-08-21] MEDS: PRAMIPEXOLE 0.25 MG TAB PO SCH (21:00)
[2016-08-21] MEDS: APIXABAN 5 MG TABLET PO SCH (21:18)
[2016-08-21] MEDS: LORAZEPAM 1 MG TAB PO SCH (21:18)
[2016-08-21] MEDS: ATORVASTATIN 80 MG TAB PO SCH (21:20)
[2016-08-21] MEDS: PRASUGREL HYDROCHLORIDE 10 MG TABLET PO SCH (21:30)
[2016-08-22] VITALS (13 sets, daily range): BP systolic 116–147; BP diastolic 56–89; PULSE 72–82; RESP 14–19
[2016-08-22] MEDS: HYDROmorphONE 1 MG/ML SYG IV PRN ×8 (00:42→23:50)
[2016-08-22] MEDS: DIPHENHYDRAMINE 50 MG INJ IV PRN ×3 (05:09→14:36)
[2016-08-22] MEDS: [UNRECOGNIZED DRUG - OTHER] SC SCH ×4 (07:30→21:00)
[2016-08-22] MEDS ORDERED: INSULIN ASPART [NOVOLOG] 3 ML PEN SC SCH (08:00)
[2016-08-22] MEDS: ACCUCHECK XX SCH ×7 (08:15→21:00)
[2016-08-22] MEDS: DOCUSATE SODIUM 100 MG CAP PO SCH ×2 (08:30→22:22)
[2016-08-22] MEDS: ASPIRIN (EC) 81 MG TAB PO SCH (08:30)
[2016-08-22] MEDS: LACTOBACILLUS CHEW TAB PO SCH ×3 (08:30→22:22)
[2016-08-22] MEDS: CALCIUM ACETATE 667 MG CAP PO SCH ×4 (08:30→17:55)
[2016-08-22] MEDS: APIXABAN 5 MG TABLET PO SCH ×2 (08:31→22:22)
[2016-08-22] MEDS: PRASUGREL HYDROCHLORIDE 10 MG TABLET PO SCH (08:45)
[2016-08-22] MEDS: SEVELAMER 800 MG TAB PO SCH ×4 (08:45→17:56)
[2016-08-22] MEDS: ISOSORBIDE MONONITRATE(SR)60 MG TAB PO SCH (08:48)
[2016-08-22] MEDS: LISINOPRIL 10 MG TAB PO SCH (08:49)
[2016-08-22] MEDS: METOPROLOL (XL) 50 MG TAB PO SCH ×2 (08:49→22:24)
--- NOTE | 2016-08-22 09:06 | CONS ---
Date/Time of Note Date/Time of Note DATE: 08/22/16 TIME: 09:00 Assessment/Plan Assessment/Plan Chief Complaint/Hosp Course 1. ESRD , he is on dialysis T T S . He is due for dialysis for tomorrow and is ordered . 2. he was admitted for chest pain , W/U in progress . 3. HTN 4. Type 1 DM 5. PAD 6. Hyperkalemia , he is on [place] Problems: Consultation Date/Type/Reason Admit Date/Time Aug 21, 2016 at 03:32 Initial Consult Date 08/21/16 Type of Consultation: Interventional Cardiology Referring Provider: WILMER RODRIGUEZ MD 24 HR Interval Summary Free Text/Dictation He is awake . feels weak . No chest pain . Exam/Review of Systems Vital Signs Vitals Vital Signs Date Time Temp Pulse Resp B/P Pulse Ox O2 Delivery O2 Flow Rate FiO2 08/22/16 07:30 98.0 74 18 128/66 96 08/21/16 05:29 Room Air Intake and Output 08/21/16 08/21/16 08/22/16 15:00 23:00 07:00 Intake Total 500 ml 500 ml 200 ml Output Total 4000 ml 1000 ml 100 ml Balance -3500 ml -500 ml 100 ml Exam Constitutional: alert, oriented, well developed Psych: no complaints Respiratory: clear to auscultation, normal air movement Cardiovascular: regular rate and rhythm Gastrointestinal: soft Extremities: edema Results Result Diagram: 08/21/16 0632 08/21/16 0632 Results 24 hrs Laboratory Tests Test 08/21/16 11:17 08/21/16 15:43 08/21/16 19:18 08/21/16 21:36 Bedside Glucose 248 H 193 147 Troponin I < 0.012 Test 08/21/16 23:35 08/22/16 08:02 Troponin I 0.020 Bedside Glucose 100 Medications Medications Current Medications Ondansetron HCl (Zofran Inj) 4 mg Q6H PRN IV NAUSEA AND/OR VOMITING; Start 08/21 at 05:00 Diphenhydramine HCl (Benadryl) 25 mg Q6H PRN IV ITCHING Last administered on t 08:29; Admin Dose 25 MG; Start 08/21/16 at 05:00 Hydromorphone HCl (Dilaudid) 1 mg Q3H PRN IV PAIN Last administered on 08:29; Admin Dose 1 MG; Start 08/21/16 at 12:00 Aspirin (Halfprin) 81 mg DAILY PO Last administered on 08/22/16 08:30; Admin Dose 81 MG; Start 08/21/16 at 10:30 Atorvastatin Calcium (Lipitor) 80 mg QHS PO Last administered on 08/21/16 21:20 ; Admin Dose 80 MG; Start 08/21/16 at 21:00 Clonidine (Catapres) 0.1 mg Q6 PO Last administered on 08/22/16 05:08; Admin Dose 0.1 MG; Start 08/21/16 at 12:00 Diphenhydramine HCl (Benadryl) 50 mg Q6 PRN PO ITCHING; Start 08/21/16 at 10:30 Docusate Sodium (Colace) 100 mg BID PO Last administered on 08/22/16 08:30; Admin Dose 100 MG; Start 08/21/16 at 10:30 Isosorbide Mononitrate (Imdur) 60 mg DAILY PO Last administered on 08/22/16 08 :48; Admin Dose 60 MG; Start 08/21/16 at 10:30 Lactobacillus Acidoph/Bulgaricus (Floranex) 1 tab TID PO Last administered on 08:30; Admin Dose 1 TAB; Start 08/21/16 at 13:00 Lisinopril (Zestril) 10 mg DAILY PO Last administered on 08/22/16 08:49; Admin Dose 10 MG; Start 08/21/16 at 10:30 Lorazepam (Ativan) 2 mg HS PO Last administered on 08/21/16 21:18; Admin Dose 2 MG; Start 08/21/16 at 21:00 Metoprolol Succinate (Toprol Xl) 50 mg BID PO Last administered on 08/22/16 08 :49; Admin Dose 50 MG; Start 08/21/16 at 10:30 Pramipexole (Mirapex) 0.25 mg HS PO ; Start 08/21/16 at 21:00 Prasugrel (Effient) 10 mg DAILY PO Last administered on 08/22/16 08:45; Admin Dose 10 MG; Start 08/21/16 at 10:30 Diphenhydramine HCl (Benadryl) 50 mg PRN PRN IV GIVE PRIOR TO EACH HD Last administered on 08/21/16 12:18; Admin Dose 50 MG; Start 08/21/16 at 12:00 Lorazepam (Ativan) 1 mg PRN PRN IV PRIOR TO EACH HD Last administered on 12:19; Admin Dose 1 MG; Start 08/21/16 at 12:30 Epoetin Fredy (Epogen (Esrd)) 10,000 units TuThSa@17 SC Last administered on 08/21 17:00; Admin Dose 10,000 UNITS; Start 08/21/16 at 17:00 Apixaban (Eliquis) 2.5 mg BID PO Last administered on 08/22/16 08:31; Admin Dose 2.5 MG; Start 08/21/16 at 21:00 Miscellaneous Information 1 ea NOTE XX ; Start 08/21/16 at 19:00 Glucose (Glutose) 15 gm Q15M PRN PO DECREASED GLUCOSE; Start 08/21/16 at 19:00 Glucose (Glutose) 22.5 gm Q15M PRN PO DECREASED GLUCOSE; Start 08/21/16 at 19:00 Dextrose (D50w Syringe) 25 ml Q15M PRN IV DECREASED GLUCOSE; Start 08/21/16 at 19:00 Dextrose (D50w Syringe) 50 ml Q15M PRN IV DECREASED GLUCOSE; Start 08/21/16 at 19:00 Glucagon (Glucagen) 1 mg Q15M PRN IM DECREASED GLUCOSE; Start 08/21/16 at 19:00 Glucose (Glutose) 15 gm Q15M PRN BUCCAL DECREASED GLUCOSE; Start 08/21/16 at 19: 00 Diphenhydramine HCl (Benadryl) 50 mg Q6H PRN IV SLEEP Last administered on 21:20; Admin Dose 50 MG; Start 08/21/16 at 21:00 DONY HOWARD MD Aug 22, 2016 09:06
--- NOTE | 2016-08-22 12:47 | PN ---
Date/Time of Note Date/Time of Note DATE: 08/22/16 TIME: 12:43 Assessment/Plan VTE Prophylaxis VTE Prophylaxis Intervention: SCD's Lines/Catheters IV Catheter Type (from [facility] portacath Urinary Cath still in place: No Assessment/Plan Assessment/Plan - Chest pain in patient with coronary artery disease and history of stent placement. Troponin is negative 3. Dr. Stephen is following in cardiology consultation. Pending cardiac cath upon availability. - End-stage renal disease, hemodialysis dependent. Dr. Hubbard is following in nephrology consultation. - Diabetes mellitus type 1. Continue insulin management with insulin pump. Dr. Haddad is following an endocrinology consultation - Peripheral arterial disease, status post vascular interventions at previous admission. Continued on Eliquis. Dr. Byrnes is following in vascular surgery consultation. - Anemia of chronic disease, continue Epogen. Further recommendations based on clinical course. Plan of care discussed with Dr. Rosales. Subjective 24 Hr Interval Summary Free Text/Dictation Patient's complaint of intermittent chest pain currently stable, denies any nausea vomiting. Breathing comfortably on room air. Exam/Review of Systems Vital Signs Vitals Vital Signs Date Time Temp Pulse Resp B/P Pulse Ox O2 Delivery O2 Flow Rate FiO2 08/22/16 12:23 79 08/22/16 11:00 98.0 19 121/89 95 08/21/16 05:29 Room Air Intake and Output 08/21/16 08/21/16 08/22/16 15:00 23:00 07:00 Intake Total 500 ml 500 ml 200 ml Output Total 4000 ml 1000 ml 100 ml Balance -3500 ml -500 ml 100 ml Exam GENERAL: Well-developed, well-nourished male, currently appears pale, awake, alert. HEENT: The patient has right eye prosthesis. Left pupil is equal, round, reactive to light and accommodation. NECK: Supple. No cervical lymphadenopathy, no thyromegaly. CHEST: Lungs clear bilaterally. There are no rhonchi, wheezes, rales noted. CARDIOVASCULAR: Normal S1, S2. No murmurs, gallops, clicks, rubs noted. ABDOMEN: Flat, soft, nondistended. The patient has generalized tenderness to epigastric tenderness on palpation. No guarding. EXTREMITIES: No edema, clubbing, cyanosis. Left upper extremity AV graft with a palpable thrill and audible bruit. SKIN: No rash, petechiae noted. NEUROLOGIC: The patient is awake, alert, and oriented x3. Results Result Diagram: 08/21/16 0632 08/21/16 0632 Results 24 hrs Laboratory Tests Test 08/21/16 15:43 08/21/16 19:18 08/21/16 21:36 08/21/16 23:35 Troponin I < 0.012 0.020 Bedside Glucose 193 147 Test 08/22/16 08:02 08/22/16 10:42 Bedside Glucose 100 89 Medications Medications Current Medications Ondansetron HCl (Zofran Inj) 4 mg Q6H PRN IV NAUSEA AND/OR VOMITING; Start 08/21 at 05:00 Diphenhydramine HCl (Benadryl) 25 mg Q6H PRN IV ITCHING Last administered on 08:29; Admin Dose 25 MG; Start 08/21/16 at 05:00 Hydromorphone HCl (Dilaudid) 1 mg Q3H PRN IV PAIN Last administered on 11:42; Admin Dose 1 MG; Start 08/21/16 at 12:00 Aspirin (Halfprin) 81 mg DAILY PO Last administered on 08/22/16 08:30; Admin Dose 81 MG; Start 08/21/16 at 10:30 Atorvastatin Calcium (Lipitor) 80 mg QHS PO Last administered on 08/21/16 21:20 ; Admin Dose 80 MG; Start 08/21/16 at 21:00 Clonidine (Catapres) 0.1 mg Q6 PO Last administered on 08/22/16 11:42; Admin Dose 0.1 MG; Start 08/21/16 at 12:00 Diphenhydramine HCl (Benadryl) 50 mg Q6 PRN PO ITCHING; Start 08/21/16 at 10:30 Docusate Sodium (Colace) 100 mg BID PO Last administered on 08/22/16 08:30; Admin Dose 100 MG; Start 08/21/16 at 10:30 Isosorbide Mononitrate (Imdur) 60 mg DAILY PO Last administered on 08/22/16 08 :48; Admin Dose 60 MG; Start 08/21/16 at 10:30 Lactobacillus Acidoph/Bulgaricus (Floranex) 1 tab TID PO Last administered on 08:30; Admin Dose 1 TAB; Start 08/21/16 at 13:00 Lisinopril (Zestril) 10 mg DAILY PO Last administered on 08/22/16 08:49; Admin Dose 10 MG; Start 08/21/16 at 10:30 Lorazepam (Ativan) 2 mg HS PO Last administered on 08/21/16 21:18; Admin Dose 2 MG; Start 08/21/16 at 21:00 Metoprolol Succinate (Toprol Xl) 50 mg BID PO Last administered on 08/22/16 08 :49; Admin Dose 50 MG; Start 08/21/16 at 10:30 Pramipexole (Mirapex) 0.25 mg HS PO ; Start 08/21/16 at 21:00 Prasugrel (Effient) 10 mg DAILY PO Last administered on 08/22/16 08:45; Admin Dose 10 MG; Start 08/21/16 at 10:30 Diphenhydramine HCl (Benadryl) 50 mg PRN PRN IV GIVE PRIOR TO EACH HD Last administered on 08/21/16 12:18; Admin Dose 50 MG; Start 08/21/16 at 12:00 Lorazepam (Ativan) 1 mg PRN PRN IV PRIOR TO EACH HD Last administered on 12:19; Admin Dose 1 MG; Start 08/21/16 at 12:30 Epoetin Fredy (Epogen (Esrd)) 10,000 units TuThSa@17 SC Last administered on 08/21 17:00; Admin Dose 10,000 UNITS; Start 08/21/16 at 17:00 Apixaban (Eliquis) 2.5 mg BID PO Last administered on 08/22/16 08:31; Admin Dose 2.5 MG; Start 08/21/16 at 21:00 Miscellaneous Information 1 ea NOTE XX ; Start 08/21/16 at 19:00 Glucose (Glutose) 15 gm Q15M PRN PO DECREASED GLUCOSE; Start 08/21/16 at 19:00 Glucose (Glutose) 22.5 gm Q15M PRN PO DECREASED GLUCOSE; Start 08/21/16 at 19:00 Dextrose (D50w Syringe) 25 ml Q15M PRN IV DECREASED GLUCOSE; Start 08/21/16 at 19:00 Dextrose (D50w Syringe) 50 ml Q15M PRN IV DECREASED GLUCOSE; Start 08/21/16 at 19:00 Glucagon (Glucagen) 1 mg Q15M PRN IM DECREASED GLUCOSE; Start 08/21/16 at 19:00 Glucose (Glutose) 15 gm Q15M PRN BUCCAL DECREASED GLUCOSE; Start 08/21/16 at 19: 00 Diphenhydramine HCl (Benadryl) 50 mg Q6H PRN IV SLEEP Last administered on t 21:20; Admin Dose 50 MG; Start 08/21/16 at 21:00 ANGELINA CASTREJON Aug 22, 2016 12:47
[2016-08-22] MEDS: PATIROMER CALCIUM SORBITEX 16.8 GM PKT PO SCH (13:22)
[2016-08-22] MEDS ORDERED: ALTEPLASE (CATHFLO) 2 MG INJ CATHETER PRN (14:30)
[2016-08-22] MEDS ORDERED: INSULIN LISPRO 100 UNIT/ML VIAL SC SCH (20:30)
[2016-08-22] MEDS: PRAMIPEXOLE 0.25 MG TAB PO SCH (21:00)
[2016-08-22] MEDS: LORAZEPAM 1 MG TAB PO SCH (22:21)
[2016-08-22] MEDS: ATORVASTATIN 80 MG TAB PO SCH (22:22)
[2016-08-23] VITALS (21 sets, daily range): BP systolic 125–189; BP diastolic 62–103; PULSE 67–96; RESP 18–19
[2016-08-23 02:51] LABS: ADD SCAN DIFF NO
[2016-08-23] MEDS: DIPHENHYDRAMINE 50 MG INJ IV PRN ×5 (03:31→22:06)
[2016-08-23] MEDS: HYDROmorphONE 1 MG/ML SYG IV PRN ×7 (03:31→22:07)
[2016-08-23 03:36] LABS: POTASSIUM 4.9 mmol/L (3.5-5.1)
[2016-08-23 03:37] LABS: PHOSPHORUS 5.3 mg/dl (2.5-4.9)
[2016-08-23 03:38] LABS: MAGNESIUM 1.7 mg/dl (1.7-2.5)
[2016-08-23 03:39] LABS: CREATININE 6.92 mg/dl (0.61-1.24)
[2016-08-23 03:40] LABS: CALCIUM 7.4 mg/dl (8.4-10.2)
[2016-08-23 03:57] LABS: BASOPHILS % 0.6 % (0.0-2.0); EOSINOPHILS # 0.7 10^3/ul (0.0-0.5); EOSINOPHILS % 10.5 % (0.0-7.0); HEMATOCRIT 26.9 % (42.0-52.0); HEMOGLOBIN 8.5 g/dl (14.0-18.0); LYMPHOCYTES # 0.9 10^3/ul (0.8-2.9); LYMPHOCYTES % 13.4 % (15.0-51.0); MEAN CORPUSCULAR HEMOGLOBIN 30.6 pg (29.0-33.0); MEAN CORPUSCULAR HGB CONC 31.6 g/dl (32.0-37.0); MEAN CORPUSCULAR VOLUME 96.8 fl (82.0-101.0); MEAN PLATELET VOLUME 11.8 fl (7.4-10.4); MONOCYTE # 0.7 10^3/ul (0.3-0.9); MONOCYTES % 10.2 % (0.0-11.0); NEUTROPHIL # 4.5 10^3/ul (1.6-7.5); PLATELET COUNT 151 10^3/UL (140-415); RED BLOOD COUNT 2.78 10^6/ul (4.70-6.10); RED CELL DISTRIBUTION WIDTH 15.8 % (11.5-14.5); WHITE BLOOD COUNT 6.9 10^3/ul (4.8-10.8)
--- NOTE | 2016-08-23 07:09 | CONS ---
Date/Time of Note Date/Time of Note DATE: 08/23/16 TIME: 07:06 Assessment/Plan Assessment/Plan Problems: (1) Diabetes mellitus type 1, controlled, with complications Status: Chronic Comment: He had turned his pump down so he would not run out of insulin yesterday. He has a full supply of pump materials he is back on pump full- strength and his sugars are coming under control. He is apparently pending a surgical procedure in 48 hours. He has no cardiac neurologic or systemic instability at this moment. Consultation Date/Type/Reason Admit Date/Time Aug 21, 2016 at 03:32 Initial Consult Date 08/21/16 Type of Consultation: Endocrinology Reason for Consultation Diabetes mellitus type 1 on a pump; end-stage renal disease; retinopathy with blindness; peripheral neuropathy; peripheral vascular disease Referring Provider: WILMER RODRIGUEZ MD 24 HR Interval Summary Free Text/Dictation There have been small issue yesterday where he was running low on insulin for his pump. This was ultimately resolved with the assistance from the pharmacist. Exam/Review of Systems Vital Signs Vitals Vital Signs Date Time Temp Pulse Resp B/P Pulse Ox O2 Delivery O2 Flow Rate FiO2 08/23/16 05:01 98.3 77 19 138/65 96 08/21/16 05:29 Room Air Intake and Output 08/22/16 08/22/16 08/23/16 15:00 23:00 07:00 Intake Total 600 ml 1350 ml Output Total 2 ml Balance 600 ml 1348 ml Exam Constitutional: alert, oriented Respiratory: clear to auscultation, normal air movement Cardiovascular: nl pulses, regular rate and rhythm Results Result Diagram: 08/23/16 0230 08/23/16 0230 Results 24 hrs Laboratory Tests Test 08/22/16 08:02 08/22/16 10:42 08/22/16 14:10 08/22/16 17:36 Bedside Glucose 100 89 239 H 101 Test 08/22/16 21:01 08/22/16 23:26 08/23/16 02:30 Bedside Glucose 326 H 273 H Anion Gap 22 H Basophils # 0.0 Basophils % 0.6 Blood Urea Nitrogen 62 H Calcium Level 7.4 L Carbon Dioxide Level 20 L Chloride Level 101 Cholesterol Level 77 L Cholesterol/HDL Ratio 3.0 Creatinine 6.92 H Eosinophils # 0.7 H Eosinophils % 10.5 H Glucose Level 130 # HDL Cholesterol 25 L Hematocrit 26.9 L Hemoglobin 8.5 L Hemoglobin A1c 6.4 H LDL Cholesterol, Calculated 38 Lymphocytes # 0.9 Lymphocytes % 13.4 L Magnesium Level 1.7 Mean Corpuscular Hemoglobin 30.6 Mean Corpuscular Hemoglobin Concent 31.6 L Mean Corpuscular Volume 96.8 Mean Platelet Volume 11.8 H Monocytes # 0.7 Monocytes % 10.2 Neutrophils # 4.5 Neutrophils % 65.0 Nucleated Red Blood Cells # 0.0 Nucleated Red Blood Cells % 0.0 Phosphorus Level 5.3 H Platelet Count 151 Potassium Level 4.9 Red Blood Count 2.78 L Red Cell Distribution Width 15.8 H Sodium Level 138 Triglycerides Level 70 White Blood Count 6.9 Medications Medications Current Medications Ondansetron HCl (Zofran Inj) 4 mg Q6H PRN IV NAUSEA AND/OR VOMITING; Start 08/21 at 05:00 Diphenhydramine HCl (Benadryl) 25 mg Q6H PRN IV ITCHING Last administered on 03:31; Admin Dose 25 MG; Start 08/21/16 at 05:00 Hydromorphone HCl (Dilaudid) 1 mg Q3H PRN IV PAIN Last administered on 03:31; Admin Dose 1 MG; Start 08/21/16 at 12:00 Aspirin (Halfprin) 81 mg DAILY PO Last administered on 08/22/16 08:30; Admin Dose 81 MG; Start 08/21/16 at 10:30 Atorvastatin Calcium (Lipitor) 80 mg QHS PO Last administered on 08/22/16 22: 22; Admin Dose 80 MG; Start 08/21/16 at 21:00 Clonidine (Catapres) 0.1 mg Q6 PO Last administered on 08/23/16 06:25; Admin Dose 0.1 MG; Start 08/21/16 at 12:00 Diphenhydramine HCl (Benadryl) 50 mg Q6 PRN PO ITCHING; Start 08/21/16 at 10:30 Docusate Sodium (Colace) 100 mg BID PO Last administered on 08/22/16 22:22; Admin Dose 100 MG; Start 08/21/16 at 10:30 Isosorbide Mononitrate (Imdur) 60 mg DAILY PO Last administered on 08/22/16 08 :48; Admin Dose 60 MG; Start 08/21/16 at 10:30 Lactobacillus Acidoph/Bulgaricus (Floranex) 1 tab TID PO Last administered on 22:22; Admin Dose 1 TAB; Start 08/21/16 at 13:00 Lisinopril (Zestril) 10 mg DAILY PO Last administered on 08/22/16 08:49; Admin Dose 10 MG; Start 08/21/16 at 10:30 Lorazepam (Ativan) 2 mg HS PO Last administered on 08/22/16 22:21; Admin Dose 2 MG; Start 08/21/16 at 21:00 Metoprolol Succinate (Toprol Xl) 50 mg BID PO Last administered on 08/22/16 22 :24; Admin Dose 50 MG; Start 08/21/16 at 10:30 Pramipexole (Mirapex) 0.25 mg HS PO ; Start 08/21/16 at 21:00 Prasugrel (Effient) 10 mg DAILY PO Last administered on 08/22/16 08:45; Admin Dose 10 MG; Start 08/21/16 at 10:30 Diphenhydramine HCl (Benadryl) 50 mg PRN PRN IV GIVE PRIOR TO EACH HD Last administered on 08/21/16 12:18; Admin Dose 50 MG; Start 08/21/16 at 12:00 Lorazepam (Ativan) 1 mg PRN PRN IV PRIOR TO EACH HD Last administered on 12:19; Admin Dose 1 MG; Start 08/21/16 at 12:30 Epoetin Fredy (Epogen (Esrd)) 10,000 units TuTa@17 SC Last administered on 08/21 17:00; Admin Dose 10,000 UNITS; Start 08/21/16 at 17:00 Apixaban (Eliquis) 2.5 mg BID PO Last administered on 08/22/16 22:22; Admin Dose 2.5 MG; Start 08/21/16 at 21:00 Miscellaneous Information 1 ea NOTE XX ; Start 08/21/16 at 19:00 Glucose (Glutose) 15 gm Q15M PRN PO DECREASED GLUCOSE; Start 08/21/16 at 19:00 Glucose (Glutose) 22.5 gm Q15M PRN PO DECREASED GLUCOSE; Start 08/21/16 at 19:00 Dextrose (D50w Syringe) 25 ml Q15M PRN IV DECREASED GLUCOSE; Start 08/21/16 at 19:00 Dextrose (D50w Syringe) 50 ml Q15M PRN IV DECREASED GLUCOSE; Start 08/21/16 at 19:00 Glucagon (Glucagen) 1 mg Q15M PRN IM DECREASED GLUCOSE; Start 08/21/16 at 19:00 Glucose (Glutose) 15 gm Q15M PRN BUCCAL DECREASED GLUCOSE; Start 08/21/16 at 19: 00 Diphenhydramine HCl (Benadryl) 50 mg Q6H PRN IV SLEEP Last administered on t 21:20; Admin Dose 50 MG; Start 08/21/16 at 21:00 DEBBY BURT MD Aug 23, 2016 07:08
[2016-08-23] MEDS: ACCUCHECK XX SCH ×7 (07:30→21:09)
[2016-08-23] MEDS: [UNRECOGNIZED DRUG - OTHER] SC SCH ×4 (07:30→21:00)
[2016-08-23] MEDS: LACTOBACILLUS CHEW TAB PO SCH ×3 (08:51→21:04)
[2016-08-23] MEDS: APIXABAN 5 MG TABLET PO SCH ×2 (08:51→21:04)
[2016-08-23] MEDS: CALCIUM ACETATE 667 MG CAP PO SCH ×3 (08:51→18:19)
[2016-08-23] MEDS: PRASUGREL HYDROCHLORIDE 10 MG TABLET PO SCH (08:51)
[2016-08-23] MEDS: SEVELAMER 800 MG TAB PO SCH ×3 (08:52→18:20)
[2016-08-23] MEDS: DOCUSATE SODIUM 100 MG CAP PO SCH ×2 (08:52→21:04)
[2016-08-23] MEDS: ASPIRIN (EC) 81 MG TAB PO SCH (08:52)
[2016-08-23] MEDS: ISOSORBIDE MONONITRATE(SR)60 MG TAB PO SCH (08:52)
[2016-08-23] MEDS: LISINOPRIL 10 MG TAB PO SCH (08:53)
[2016-08-23] MEDS: METOPROLOL (XL) 50 MG TAB PO SCH ×2 (08:53→21:05)
[2016-08-23] MEDS: LORAZEPAM 2 MG INJ IV PRN (10:41)
--- NOTE | 2016-08-23 10:41 | CONS ---
Date/Time of Note Date/Time of Note DATE: 08/23/16 TIME: 10:36 Assessment/Plan Assessment/Plan Chief Complaint/Hosp Course chest pain Problems: Additional Assessment/Plan esrd anemia diabetes mellitus Consultation Date/Type/Reason Admit Date/Time Aug 21, 2016 at 03:32 Initial Consult Date 08/21/16 Type of Consultation: Nephrology Reason for Consultation ESRD management Referring Provider: WILMER RODRIGUEZ MD 24 HR Interval Summary Free Text/Dictation Minimal chest pain at this time. No sob. Bp up and dialysis about to start and will determine if persists. Constitutional: chills, diaphoresis, disoriented, febrile, improved, no complaints, other, poor po, requiring IVF, requiring O2 Detailed Summary Cardiovascular: chest pain Gastrointestinal: no complaints Musculoskeletal: no complaints Neurologic: no complaints Exam/Review of Systems Vital Signs Vitals Vital Signs Date Time Temp Pulse Resp B/P Pulse Ox O2 Delivery O2 Flow Rate FiO2 08/23/16 08:22 98.3 81 19 189/103 100 08/21/16 05:29 Room Air Intake and Output 08/22/16 08/22/16 08/23/16 15:00 23:00 07:00 Intake Total 600 ml 1350 ml Output Total 2 ml Balance 600 ml 1348 ml Exam Constitutional: alert Psych: no complaints Neck: supple Cardiovascular: other (no rub), regular rate and rhythm Gastrointestinal: soft 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: nl mental status Results Result Diagram: 08/23/16 0230 08/23/16 0230 Results 24 hrs Laboratory Tests Test 08/22/16 10:42 08/22/16 14:10 08/22/16 17:36 08/22/16 21:01 Bedside Glucose 89 239 H 101 326 H Test 08/22/16 23:26 08/23/16 02:30 08/23/16 07:49 Bedside Glucose 273 H 107 Anion Gap 22 H Basophils # 0.0 Basophils % 0.6 Blood Urea Nitrogen 62 H Calcium Level 7.4 L Carbon Dioxide Level 20 L Chloride Level 101 Cholesterol Level 77 L Cholesterol/HDL Ratio 3.0 Creatinine 6.92 H Eosinophils # 0.7 H Eosinophils % 10.5 H Glucose Level 130 # HDL Cholesterol 25 L Hematocrit 26.9 L Hemoglobin 8.5 L Hemoglobin A1c 6.4 H LDL Cholesterol, Calculated 38 Lymphocytes # 0.9 Lymphocytes % 13.4 L Magnesium Level 1.7 Mean Corpuscular Hemoglobin 30.6 Mean Corpuscular Hemoglobin Concent 31.6 L Mean Corpuscular Volume 96.8 Mean Platelet Volume 11.8 H Monocytes # 0.7 Monocytes % 10.2 Neutrophils # 4.5 Neutrophils % 65.0 Nucleated Red Blood Cells # 0.0 Nucleated Red Blood Cells % 0.0 Phosphorus Level 5.3 H Platelet Count 151 Potassium Level 4.9 Red Blood Count 2.78 L Red Cell Distribution Width 15.8 H Sodium Level 138 Triglycerides Level 70 White Blood Count 6.9 Medications Medications Current Medications Ondansetron HCl (Zofran Inj) 4 mg Q6H PRN IV NAUSEA AND/OR VOMITING; Start 08/21 at 05:00 Diphenhydramine HCl (Benadryl) 25 mg Q6H PRN IV ITCHING Last administered on 09:23; Admin Dose 25 MG; Start 08/21/16 at 05:00 Hydromorphone HCl (Dilaudid) 1 mg Q3H PRN IV PAIN Last administered on 09:24; Admin Dose 1 MG; Start 08/21/16 at 12:00 Aspirin (Halfprin) 81 mg DAILY PO Last administered on 08/23/16 08:52; Admin Dose 81 MG; Start 08/21/16 at 10:30 Atorvastatin Calcium (Lipitor) 80 mg QHS PO Last administered on 08/22/16 22: 22; Admin Dose 80 MG; Start 08/21/16 at 21:00 Clonidine (Catapres) 0.1 mg Q6 PO Last administered on 08/23/16 06:25; Admin Dose 0.1 MG; Start 08/21/16 at 12:00 Diphenhydramine HCl (Benadryl) 50 mg Q6 PRN PO ITCHING; Start 08/21/16 at 10:30 Docusate Sodium (Colace) 100 mg BID PO Last administered on 08/23/16 08:52; Admin Dose 100 MG; Start 08/21/16 at 10:30 Isosorbide Mononitrate (Imdur) 60 mg DAILY PO Last administered on 08/22/16 08 :48; Admin Dose 60 MG; Start 08/21/16 at 10:30 Lactobacillus Acidoph/Bulgaricus (Floranex) 1 tab TID PO Last administered on 08:51; Admin Dose 1 TAB; Start 08/21/16 at 13:00 Lisinopril (Zestril) 10 mg DAILY PO Last administered on 08/22/16 08:49; Admin Dose 10 MG; Start 08/21/16 at 10:30 Lorazepam (Ativan) 2 mg HS PO Last administered on 08/22/16 22:21; Admin Dose 2 MG; Start 08/21/16 at 21:00 Metoprolol Succinate (Toprol Xl) 50 mg BID PO Last administered on 08/22/16 22 :24; Admin Dose 50 MG; Start 08/21/16 at 10:30 Pramipexole (Mirapex) 0.25 mg HS PO ; Start 08/21/16 at 21:00 Prasugrel (Effient) 10 mg DAILY PO Last administered on 08/23/16 08:51; Admin Dose 10 MG; Start 08/21/16 at 10:30 Diphenhydramine HCl (Benadryl) 50 mg PRN PRN IV GIVE PRIOR TO EACH HD Last administered on 08/21/16 12:18; Admin Dose 50 MG; Start 08/21/16 at 12:00 Lorazepam (Ativan) 1 mg PRN PRN IV PRIOR TO EACH HD Last administered on 12:19; Admin Dose 1 MG; Start 08/21/16 at 12:30 Epoetin Fredy (Epogen (Esrd)) 10,000 units TuThSa@17 SC Last administered on 08/21 17:00; Admin Dose 10,000 UNITS; Start 08/21/16 at 17:00 Apixaban (Eliquis) 2.5 mg BID PO Last administered on 08/23/16 08:51; Admin Dose 2.5 MG; Start 08/21/16 at 21:00 Miscellaneous Information 1 ea NOTE XX ; Start 08/21/16 at 19:00 Glucose (Glutose) 15 gm Q15M PRN PO DECREASED GLUCOSE; Start 08/21/16 at 19:00 Glucose (Glutose) 22.5 gm Q15M PRN PO DECREASED GLUCOSE; Start 08/21/16 at 19:00 Dextrose (D50w Syringe) 25 ml Q15M PRN IV DECREASED GLUCOSE; Start 08/21/16 at 19:00 Dextrose (D50w Syringe) 50 ml Q15M PRN IV DECREASED GLUCOSE; Start 08/21/16 at 19:00 Glucagon (Glucagen) 1 mg Q15M PRN IM DECREASED GLUCOSE; Start 08/21/16 at 19:00 Glucose (Glutose) 15 gm Q15M PRN BUCCAL DECREASED GLUCOSE; Start 08/21/16 at 19: 00 Diphenhydramine HCl (Benadryl) 50 mg Q6H PRN IV SLEEP Last administered on t 21:20; Admin Dose 50 MG; Start 08/21/16 at 21:00 LAMBERT VARELA MD Aug 23, 2016 10:41
[2016-08-23] MEDS: PATIROMER CALCIUM SORBITEX 16.8 GM PKT PO SCH (14:00)
[2016-08-23 14:10] LABS: ADD SCAN DIFF NO
[2016-08-23 14:13] LABS: ABNORMAL IP MESSAGE 1; BASOPHILS % 0.3 % (0.0-2.0); EOSINOPHILS # 0.3 10^3/ul (0.0-0.5); EOSINOPHILS % 9.1 % (0.0-7.0); HEMATOCRIT 32.4 % (42.0-52.0); HEMOGLOBIN 10.8 g/dl (14.0-18.0); LYMPHOCYTES # 0.4 10^3/ul (0.8-2.9); LYMPHOCYTES % 12.9 % (15.0-51.0); MEAN CORPUSCULAR HEMOGLOBIN 30.7 pg (29.0-33.0); MEAN CORPUSCULAR HGB CONC 33.3 g/dl (32.0-37.0); MEAN PLATELET VOLUME 11.4 fl (7.4-10.4); MONOCYTES % 1.3 % (0.0-11.0); NEUTROPHIL # 2.3 10^3/ul (1.6-7.5); NEUTROPHILS % 75.8 % (39.0-77.0); PLATELET COUNT 150 10^3/UL (140-415); RED BLOOD COUNT 3.52 10^6/ul (4.70-6.10); RED CELL DISTRIBUTION WIDTH 15.2 % (11.5-14.5); WHITE BLOOD COUNT 3.1 10^3/ul (4.8-10.8)
--- NOTE | 2016-08-23 14:17 | CONS ---
Date/Time of Note Date/Time of Note DATE: 08/23/16 TIME: 14:16 Consult Date/Type/Reason Admit Date/Time Aug 21, 2016 at 03:32 Initial Consult Date 08/21/16 Type of Consultation: Nephrology Ordering Provider: WILMER RODRIGUEZ MD Objective Vital Signs Date Time Temp Pulse Resp B/P Pulse Ox O2 Delivery O2 Flow Rate FiO2 08/23/16 13:37 72 18 08/23/16 12:25 97.9 141/73 95 08/21/16 05:29 Room Air Intake and Output 08/22/16 08/22/16 08/23/16 15:00 23:00 07:00 Intake Total 600 ml 1350 ml Output Total 2 ml Balance 600 ml 1348 ml Results/Medications Result Diagram: 08/23/16 0230 08/23/16 0230 Results 24 hrs Laboratory Tests Test 08/22/16 17:36 08/22/16 21:01 08/22/16 23:26 08/23/16 02:30 Bedside Glucose 101 326 H 273 H Anion Gap 22 H Basophils # 0.0 Basophils % 0.6 Blood Urea Nitrogen 62 H Calcium Level 7.4 L Carbon Dioxide Level 20 L Chloride Level 101 Cholesterol Level 77 L Cholesterol/HDL Ratio 3.0 Creatinine 6.92 H Eosinophils # 0.7 H Eosinophils % 10.5 H Glucose Level 130 # HDL Cholesterol 25 L Hematocrit 26.9 L Hemoglobin 8.5 L Hemoglobin A1c 6.4 H LDL Cholesterol, Calculated 38 Lymphocytes # 0.9 Lymphocytes % 13.4 L Magnesium Level 1.7 Mean Corpuscular Hemoglobin 30.6 Mean Corpuscular Hemoglobin Concent 31.6 L Mean Corpuscular Volume 96.8 Mean Platelet Volume 11.8 H Monocytes # 0.7 Monocytes % 10.2 Neutrophils # 4.5 Neutrophils % 65.0 Nucleated Red Blood Cells # 0.0 Nucleated Red Blood Cells % 0.0 Phosphorus Level 5.3 H Platelet Count 151 Potassium Level 4.9 Red Blood Count 2.78 L Red Cell Distribution Width 15.8 H Sodium Level 138 Triglycerides Level 70 White Blood Count 6.9 Test 08/23/16 07:49 08/23/16 11:49 Bedside Glucose 107 205 Medications Current Medications Ondansetron HCl (Zofran Inj) 4 mg Q6H PRN IV NAUSEA AND/OR VOMITING; Start 08/21 at 05:00 Diphenhydramine HCl (Benadryl) 25 mg Q6H PRN IV ITCHING Last administered on 09:23; Admin Dose 25 MG; Start 08/21/16 at 05:00 Hydromorphone HCl (Dilaudid) 1 mg Q3H PRN IV PAIN Last administered on 13:10; Admin Dose 1 MG; Start 08/21/16 at 12:00 Aspirin (Halfprin) 81 mg DAILY PO Last administered on 08/23/16 08:52; Admin Dose 81 MG; Start 08/21/16 at 10:30 Atorvastatin Calcium (Lipitor) 80 mg QHS PO Last administered on 08/22/16 22: 22; Admin Dose 80 MG; Start 08/21/16 at 21:00 Clonidine (Catapres) 0.1 mg Q6 PO Last administered on 08/23/16 06:25; Admin Dose 0.1 MG; Start 08/21/16 at 12:00 Diphenhydramine HCl (Benadryl) 50 mg Q6 PRN PO ITCHING; Start 08/21/16 at 10:30 Docusate Sodium (Colace) 100 mg BID PO Last administered on 08/23/16 08:52; Admin Dose 100 MG; Start 08/21/16 at 10:30 Isosorbide Mononitrate (Imdur) 60 mg DAILY PO Last administered on 08/22/16 08 :48; Admin Dose 60 MG; Start 08/21/16 at 10:30 Lactobacillus Acidoph/Bulgaricus (Floranex) 1 tab TID PO Last administered on 14:00; Admin Dose 1 TAB; Start 08/21/16 at 13:00 Lisinopril (Zestril) 10 mg DAILY PO Last administered on 08/22/16 08:49; Admin Dose 10 MG; Start 08/21/16 at 10:30 Lorazepam (Ativan) 2 mg HS PO Last administered on 08/22/16 22:21; Admin Dose 2 MG; Start 08/21/16 at 21:00 Metoprolol Succinate (Toprol Xl) 50 mg BID PO Last administered on 08/22/16 22 :24; Admin Dose 50 MG; Start 08/21/16 at 10:30 Pramipexole (Mirapex) 0.25 mg HS PO ; Start 08/21/16 at 21:00 Prasugrel (Effient) 10 mg DAILY PO Last administered on 08/23/16 08:51; Admin Dose 10 MG; Start 08/21/16 at 10:30 Diphenhydramine HCl (Benadryl) 50 mg PRN PRN IV GIVE PRIOR TO EACH HD Last administered on 08/23/16 10:41; Admin Dose 50 MG; Start 08/21/16 at 12:00 Lorazepam (Ativan) 1 mg PRN PRN IV PRIOR TO EACH HD Last administered on 10:41; Admin Dose 1 MG; Start 08/21/16 at 12:30 Epoetin Fredy (Epogen (Esrd)) 10,000 units TuThSa@17 SC Last administered on 08/21 17:00; Admin Dose 10,000 UNITS; Start 08/21/16 at 17:00 Apixaban (Eliquis) 2.5 mg BID PO Last administered on 08/23/16 08:51; Admin Dose 2.5 MG; Start 08/21/16 at 21:00 Miscellaneous Information 1 ea NOTE XX ; Start 08/21/16 at 19:00 Glucose (Glutose) 15 gm Q15M PRN PO DECREASED GLUCOSE; Start 08/21/16 at 19:00 Glucose (Glutose) 22.5 gm Q15M PRN PO DECREASED GLUCOSE; Start 08/21/16 at 19:00 Dextrose (D50w Syringe) 25 ml Q15M PRN IV DECREASED GLUCOSE; Start 08/21/16 at 19:00 Dextrose (D50w Syringe) 50 ml Q15M PRN IV DECREASED GLUCOSE; Start 08/21/16 at 19:00 Glucagon (Glucagen) 1 mg Q15M PRN IM DECREASED GLUCOSE; Start 08/21/16 at 19:00 Glucose (Glutose) 15 gm Q15M PRN BUCCAL DECREASED GLUCOSE; Start 08/21/16 at 19: 00 Diphenhydramine HCl (Benadryl) 50 mg Q6H PRN IV SLEEP Last administered on 21:20; Admin Dose 50 MG; Start 08/21/16 at 21:00 Assessment/Plan Chief Complaint/Hosp Course Patient is my patient from out pt, 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 He has ESRD and PAD with plan to open his Right SFA out pt.came in with CP, stable angina. trop neg x 2. Echo with normal wall motion and normal function. EKG non ischemic. 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 CYNDIE GARCIA MD Aug 23, 2016 14:17
[2016-08-23 14:32] LABS: ALBUMIN 4.4 g/dl (3.3-4.9)
[2016-08-23 14:35] LABS: ALBUMIN/GLOBULIN RATIO 1.25; BILIRUBIN,INDIRECT 0.3 mg/dl (0-1.1); BILIRUBIN,TOTAL 0.3 mg/dl (0.2-1.3); CREATININE 3.55 mg/dl (0.61-1.24); TOTAL PROTEIN 7.9 g/dl (6.1-8.1)
[2016-08-23 14:36] LABS: CALCIUM 8.6 mg/dl (8.4-10.2)
[2016-08-23] MEDS ORDERED: POTASSIUM CHLORIDE (SR) 20 MEQ TAB PO STA (17:45)
--- NOTE | 2016-08-23 17:45 | PN ---
Date/Time of Note Date/Time of Note DATE: 08/23/16 TIME: 17:43 Assessment/Plan VTE Prophylaxis VTE Prophylaxis Intervention: other Lines/Catheters IV Catheter Type (from [facility]): Portacath Urinary Cath still in place: No Assessment/Plan Assessment/Plan - Chest pain in patient with coronary artery disease and history of stent placement. Troponin is negative 3. Dr. Stephen is following in cardiology consultation. Pending cardiac cath upon availability. - End-stage renal disease, hemodialysis dependent. Dr. Hubbard is following in nephrology consultation. - Diabetes mellitus type 1. Continue insulin management with insulin pump. Dr. Haddad is following an endocrinology consultation - Peripheral arterial disease, status post vascular interventions at previous admission. Continued on Eliquis. Dr. Byrnes is following in vascular surgery consultation. - Anemia of chronic disease, continue Epogen. Further recommendations based on clinical course. Plan of care discussed with Dr. Rosales. Exam/Review of Systems Vital Signs Vitals Vital Signs Date Time Temp Pulse Resp B/P Pulse Ox O2 Delivery O2 Flow Rate FiO2 08/23/16 16:20 98.1 94 19 150/84 96 08/21/16 05:29 Room Air Intake and Output 08/22/16 08/22/16 08/23/16 15:00 23:00 07:00 Intake Total 600 ml 1350 ml Output Total 2 ml Balance 600 ml 1348 ml Exam Constitutional: alert Psych: nl mood/affect Head: atraumatic Eyes: EOMI ENMT: nl external ears & nose Neck: non-tender Respiratory: clear to auscultation Cardiovascular: nl pulses Gastrointestinal: soft Musculoskeletal: nl extremities to inspection Extremities: normal pulses 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: nl mental status, nl speech Skin: nl turgor Lymph: nontender Results Result Diagram: 08/23/16 1350 08/23/16 1350 Results 24 hrs Laboratory Tests Test 08/22/16 21:01 08/22/16 23:26 08/23/16 02:30 08/23/16 07:49 Bedside Glucose 326 H 273 H 107 Anion Gap 22 H Basophils # 0.0 Basophils % 0.6 Blood Urea Nitrogen 62 H Calcium Level 7.4 L Carbon Dioxide Level 20 L Chloride Level 101 Cholesterol Level 77 L Cholesterol/HDL Ratio 3.0 Creatinine 6.92 H Eosinophils # 0.7 H Eosinophils % 10.5 H Glucose Level 130 # HDL Cholesterol 25 L Hematocrit 26.9 L Hemoglobin 8.5 L Hemoglobin A1c 6.4 H LDL Cholesterol, Calculated 38 Lymphocytes # 0.9 Lymphocytes % 13.4 L Magnesium Level 1.7 Mean Corpuscular Hemoglobin 30.6 Mean Corpuscular Hemoglobin Concent 31.6 L Mean Corpuscular Volume 96.8 Mean Platelet Volume 11.8 H Monocytes # 0.7 Monocytes % 10.2 Neutrophils # 4.5 Neutrophils % 65.0 Nucleated Red Blood Cells # 0.0 Nucleated Red Blood Cells % 0.0 Phosphorus Level 5.3 H Platelet Count 151 Potassium Level 4.9 Red Blood Count 2.78 L Red Cell Distribution Width 15.8 H Sodium Level 138 Triglycerides Level 70 White Blood Count 6.9 Test 08/23/16 11:49 08/23/16 13:50 08/23/16 14:08 Bedside Glucose 205 95 Alanine Aminotransferase (ALT/SGPT) 48 Albumin 4.4 Albumin/Globulin Ratio 1.25 Alkaline Phosphatase 350 H Anion Gap 21 H Aspartate Amino Transf (AST/SGOT) 71 H Basophils # 0.0 Basophils % 0.3 Blood Urea Nitrogen 31 #H Calcium Level 8.6 Carbon Dioxide Level 28 Chloride Level 97 Creatinine 3.55 #H Direct Bilirubin 0.00 Eosinophils # 0.3 Eosinophils % 9.1 H Globulin 3.50 H Glucose Level 145 Hematocrit 32.4 #L Hemoglobin 10.8 #L Indirect Bilirubin 0.3 Lymphocytes # 0.4 L Lymphocytes % 12.9 L Mean Corpuscular Hemoglobin 30.7 Mean Corpuscular Hemoglobin Concent 33.3 Mean Corpuscular Volume 92.0 Mean Platelet Volume 11.4 H Monocytes # 0.0 L Monocytes % 1.3 Neutrophils # 2.3 Neutrophils % 75.8 Nucleated Red Blood Cells # 0.0 Nucleated Red Blood Cells % 0.0 Platelet Count 150 Potassium Level 3.0 L Red Blood Count 3.52 #L Red Cell Distribution Width 15.2 H Sodium Level 143 Total Bilirubin 0.3 Total Protein 7.9 White Blood Count 3.1 #L Medications Medications Current Medications Ondansetron HCl (Zofran Inj) 4 mg Q6H PRN IV NAUSEA AND/OR VOMITING; Start 08/21 at 05:00 Diphenhydramine HCl (Benadryl) 25 mg Q6H PRN IV ITCHING Last administered on t 16:09; Admin Dose 25 MG; Start 08/21/16 at 05:00 Hydromorphone HCl (Dilaudid) 1 mg Q3H PRN IV PAIN Last administered on 16:09; Admin Dose 1 MG; Start 08/21/16 at 12:00 Aspirin (Halfprin) 81 mg DAILY PO Last administered on 08/23/16 08:52; Admin Dose 81 MG; Start 08/21/16 at 10:30 Atorvastatin Calcium (Lipitor) 80 mg QHS PO Last administered on 08/22/16 22: 22; Admin Dose 80 MG; Start 08/21/16 at 21:00 Clonidine (Catapres) 0.1 mg Q6 PO Last administered on 08/23/16 06:25; Admin Dose 0.1 MG; Start 08/21/16 at 12:00 Diphenhydramine HCl (Benadryl) 50 mg Q6 PRN PO ITCHING; Start 08/21/16 at 10:30 Docusate Sodium (Colace) 100 mg BID PO Last administered on 08/23/16 08:52; Admin Dose 100 MG; Start 08/21/16 at 10:30 Isosorbide Mononitrate (Imdur) 60 mg DAILY PO Last administered on 08/22/16 08 :48; Admin Dose 60 MG; Start 08/21/16 at 10:30 Lactobacillus Acidoph/Bulgaricus (Floranex) 1 tab TID PO Last administered on 14:00; Admin Dose 1 TAB; Start 08/21/16 at 13:00 Lisinopril (Zestril) 10 mg DAILY PO Last administered on 08/22/16 08:49; Admin Dose 10 MG; Start 08/21/16 at 10:30 Lorazepam (Ativan) 2 mg HS PO Last administered on 08/22/16 22:21; Admin Dose 2 MG; Start 08/21/16 at 21:00 Metoprolol Succinate (Toprol Xl) 50 mg BID PO Last administered on 08/22/16 22 :24; Admin Dose 50 MG; Start 08/21/16 at 10:30 Pramipexole (Mirapex) 0.25 mg HS PO ; Start 08/21/16 at 21:00 Prasugrel (Effient) 10 mg DAILY PO Last administered on 08/23/16 08:51; Admin Dose 10 MG; Start 08/21/16 at 10:30 Diphenhydramine HCl (Benadryl) 50 mg PRN PRN IV GIVE PRIOR TO EACH HD Last administered on 08/23/16 10:41; Admin Dose 50 MG; Start 08/21/16 at 12:00 Lorazepam (Ativan) 1 mg PRN PRN IV PRIOR TO EACH HD Last administered on 10:41; Admin Dose 1 MG; Start 08/21/16 at 12:30 Epoetin Fredy (Epogen (Esrd)) 10,000 units TuThSa@17 SC Last administered on 08/21 17:00; Admin Dose 10,000 UNITS; Start 08/21/16 at 17:00 Apixaban (Eliquis) 2.5 mg BID PO Last administered on 08/23/16 08:51; Admin Dose 2.5 MG; Start 08/21/16 at 21:00 Miscellaneous Information 1 ea NOTE XX ; Start 08/21/16 at 19:00 Glucose (Glutose) 15 gm Q15M PRN PO DECREASED GLUCOSE; Start 08/21/16 at 19:00 Glucose (Glutose) 22.5 gm Q15M PRN PO DECREASED GLUCOSE; Start 08/21/16 at 19:00 Dextrose (D50w Syringe) 25 ml Q15M PRN IV DECREASED GLUCOSE; Start 08/21/16 at 19:00 Dextrose (D50w Syringe) 50 ml Q15M PRN IV DECREASED GLUCOSE; Start 08/21/16 at 19:00 Glucagon (Glucagen) 1 mg Q15M PRN IM DECREASED GLUCOSE; Start 08/21/16 at 19:00 Glucose (Glutose) 15 gm Q15M PRN BUCCAL DECREASED GLUCOSE; Start 08/21/16 at 19: 00 Diphenhydramine HCl (Benadryl) 50 mg Q6H PRN IV SLEEP Last administered on 21:20; Admin Dose 50 MG; Start 08/21/16 at 21:00 PEDRO BENSON Aug 23, 2016 17:45
[2016-08-23] MEDS: EPOETIN 10000 UNITS/1 ML INJ (ESRD) SC SCH (18:23)
[2016-08-23] MEDS: PRAMIPEXOLE 0.25 MG TAB PO SCH (21:00)
[2016-08-23] MEDS: ATORVASTATIN 80 MG TAB PO SCH (21:04)
[2016-08-23] MEDS: LORAZEPAM 1 MG TAB PO SCH (21:04)
[2016-08-24] VITALS (13 sets, daily range): BP systolic 142–180; BP diastolic 71–94; PULSE 74–85; RESP 18–19
[2016-08-24] MEDS: HYDROmorphONE 1 MG/ML SYG IV PRN ×5 (06:10→21:08)
[2016-08-24] MEDS: DIPHENHYDRAMINE 50 MG INJ IV PRN ×3 (06:10→18:05)
[2016-08-24] MEDS: ACCUCHECK XX SCH ×7 (07:30→21:22)
[2016-08-24] MEDS: [UNRECOGNIZED DRUG - OTHER] SC SCH ×4 (07:30→21:00)
--- NOTE | 2016-08-24 09:00 | CONS ---
Date/Time of Note Date/Time of Note DATE: 08/24/16 TIME: 08:58 Assessment/Plan Assessment/Plan Problems: (1) Diabetes mellitus type 1, controlled, with complications Status: Chronic Comment: His sugars remain relatively controlled under the circumstances. He is currently using his pump and is competent to use the pump. He had variances when he is been altered for his diet for procedures. Presently doing Consultation Date/Type/Reason Admit Date/Time Aug 21, 2016 at 03:32 Initial Consult Date 08/21/16 Type of Consultation: Endocrinology Reason for Consultation Diabetes mellitus type 1 on a pump complications including retinopathy with blindness end-stage renal disease severe peripheral vascular disease with gangrene and infections and osteomyelitis Referring Provider: WILMER RODRIGUEZ MD 24 HR Interval Summary Free Text/Dictation Patient sleeping arouses reports no significant issues although he did hypo- overnight while running his own pump. He is presently stable Exam/Review of Systems Vital Signs Vitals Vital Signs Date Time Temp Pulse Resp B/P Pulse Ox O2 Delivery O2 Flow Rate FiO2 08/24/16 08:21 74 08/24/16 08:20 98.2 19 142/71 99 08/24/16 06:00 Room Air Intake and Output 08/23/16 08/23/16 08/24/16 15:00 23:00 07:00 Intake Total 500 ml 700 ml Output Total 4200 ml Balance -3700 ml 700 ml Exam Constitutional: alert, oriented Respiratory: clear to auscultation, normal air movement Results Result Diagram: 08/23/16 1350 08/23/16 1350 Results 24 hrs Laboratory Tests Test 08/23/16 11:49 08/23/16 13:50 08/23/16 14:08 08/23/16 17:48 Bedside Glucose 205 95 85 Alanine Aminotransferase (ALT/SGPT) 48 Albumin 4.4 Albumin/Globulin Ratio 1.25 Alkaline Phosphatase 350 H Anion Gap 21 H Aspartate Amino Transf (AST/SGOT) 71 H Basophils # 0.0 Basophils % 0.3 Blood Urea Nitrogen 31 #H Calcium Level 8.6 Carbon Dioxide Level 28 Chloride Level 97 Creatinine 3.55 #H Direct Bilirubin 0.00 Eosinophils # 0.3 Eosinophils % 9.1 H Globulin 3.50 H Glucose Level 145 Hematocrit 32.4 #L Hemoglobin 10.8 #L Indirect Bilirubin 0.3 Lymphocytes # 0.4 L Lymphocytes % 12.9 L Mean Corpuscular Hemoglobin 30.7 Mean Corpuscular Hemoglobin Concent 33.3 Mean Corpuscular Volume 92.0 Mean Platelet Volume 11.4 H Monocytes # 0.0 L Monocytes % 1.3 Neutrophils # 2.3 Neutrophils % 75.8 Nucleated Red Blood Cells # 0.0 Nucleated Red Blood Cells % 0.0 Platelet Count 150 Potassium Level 3.0 L Red Blood Count 3.52 #L Red Cell Distribution Width 15.2 H Sodium Level 143 Total Bilirubin 0.3 Total Protein 7.9 White Blood Count 3.1 #L Test 08/23/16 20:55 08/24/16 08:28 Bedside Glucose 48 *L 179 Medications Medications Current Medications Ondansetron HCl (Zofran Inj) 4 mg Q6H PRN IV NAUSEA AND/OR VOMITING; Start 08/21 at 05:00 Diphenhydramine HCl (Benadryl) 25 mg Q6H PRN IV ITCHING Last administered on 06:10; Admin Dose 25 MG; Start 08/21/16 at 05:00 Hydromorphone HCl (Dilaudid) 1 mg Q3H PRN IV PAIN Last administered on 06:10; Admin Dose 1 MG; Start 08/21/16 at 12:00 Aspirin (Halfprin) 81 mg DAILY PO Last administered on 08/23/16 08:52; Admin Dose 81 MG; Start 08/21/16 at 10:30 Atorvastatin Calcium (Lipitor) 80 mg QHS PO Last administered on 08/23/16 21: 04; Admin Dose 80 MG; Start 08/21/16 at 21:00 Clonidine (Catapres) 0.1 mg Q6 PO Last administered on 08/24/16 06:11; Admin Dose 0.1 MG; Start 08/21/16 at 12:00 Diphenhydramine HCl (Benadryl) 50 mg Q6 PRN PO ITCHING; Start 08/21/16 at 10:30 Docusate Sodium (Colace) 100 mg BID PO Last administered on 08/23/16 21:04; Admin Dose 100 MG; Start 08/21/16 at 10:30 Isosorbide Mononitrate (Imdur) 60 mg DAILY PO Last administered on 08/22/16 08 :48; Admin Dose 60 MG; Start 08/21/16 at 10:30 Lactobacillus Acidoph/Bulgaricus (Floranex) 1 tab TID PO Last administered on 21:04; Admin Dose 1 TAB; Start 08/21/16 at 13:00 Lisinopril (Zestril) 10 mg DAILY PO Last administered on 08/22/16 08:49; Admin Dose 10 MG; Start 08/21/16 at 10:30 Lorazepam (Ativan) 2 mg HS PO Last administered on 08/23/16 21:04; Admin Dose 2 MG; Start 08/21/16 at 21:00 Metoprolol Succinate (Toprol Xl) 50 mg BID PO Last administered on 08/23/16 21 :05; Admin Dose 50 MG; Start 08/21/16 at 10:30 Pramipexole (Mirapex) 0.25 mg HS PO ; Start 08/21/16 at 21:00 Prasugrel (Effient) 10 mg DAILY PO Last administered on 08/23/16 08:51; Admin Dose 10 MG; Start 08/21/16 at 10:30 Diphenhydramine HCl (Benadryl) 50 mg PRN PRN IV GIVE PRIOR TO EACH HD Last administered on 08/23/16 10:41; Admin Dose 50 MG; Start 08/21/16 at 12:00 Lorazepam (Ativan) 1 mg PRN PRN IV PRIOR TO EACH HD Last administered on 10:41; Admin Dose 1 MG; Start 08/21/16 at 12:30 Epoetin Fredy (Epogen (Esrd)) 10,000 units TuThSa@17 SC Last administered on 18:23; Admin Dose 10,000 UNITS; Start 08/21/16 at 17:00 Apixaban (Eliquis) 2.5 mg BID PO Last administered on 08/23/16 21:04; Admin Dose 2.5 MG; Start 08/21/16 at 21:00 Miscellaneous Information 1 ea NOTE XX ; Start 08/21/16 at 19:00 Glucose (Glutose) 15 gm Q15M PRN PO DECREASED GLUCOSE; Start 08/21/16 at 19:00 Glucose (Glutose) 22.5 gm Q15M PRN PO DECREASED GLUCOSE; Start 08/21/16 at 19:00 Dextrose (D50w Syringe) 25 ml Q15M PRN IV DECREASED GLUCOSE; Start 08/21/16 at 19:00 Dextrose (D50w Syringe) 50 ml Q15M PRN IV DECREASED GLUCOSE; Start 08/21/16 at 19:00 Glucagon (Glucagen) 1 mg Q15M PRN IM DECREASED GLUCOSE; Start 08/21/16 at 19:00 Glucose (Glutose) 15 gm Q15M PRN BUCCAL DECREASED GLUCOSE; Start 08/21/16 at 19: 00 Diphenhydramine HCl (Benadryl) 50 mg Q6H PRN IV SLEEP Last administered on t 21:20; Admin Dose 50 MG; Start 08/21/16 at 21:00 DEBBY BURT MD Aug 24, 2016 09:00
[2016-08-24] MEDS: PRASUGREL HYDROCHLORIDE 10 MG TABLET PO SCH (09:12)
[2016-08-24] MEDS: APIXABAN 5 MG TABLET PO SCH ×2 (09:12→21:07)
[2016-08-24] MEDS: CALCIUM ACETATE 667 MG CAP PO SCH ×3 (09:12→18:05)
[2016-08-24] MEDS: LACTOBACILLUS CHEW TAB PO SCH ×3 (09:12→21:07)
[2016-08-24] MEDS: ASPIRIN (EC) 81 MG TAB PO SCH (09:12)
[2016-08-24] MEDS: SEVELAMER 800 MG TAB PO SCH ×3 (09:13→18:05)
[2016-08-24] MEDS: ISOSORBIDE MONONITRATE(SR)60 MG TAB PO SCH (09:13)
[2016-08-24] MEDS: METOPROLOL (XL) 50 MG TAB PO SCH ×2 (09:13→21:08)
[2016-08-24] MEDS: LISINOPRIL 10 MG TAB PO SCH (09:14)
[2016-08-24] MEDS: DOCUSATE SODIUM 100 MG CAP PO SCH ×2 (09:14→21:07)
--- NOTE | 2016-08-24 18:52 | PN ---
Date/Time of Note Date/Time of Note DATE: 08/24/16 TIME: 18:49 Assessment/Plan VTE Prophylaxis VTE Prophylaxis Intervention: other Lines/Catheters IV [facility]ter Type (from [facility]): Portacath Urinary Cath still in place: No Assessment/Plan Assessment/Plan - Chest pain in patient with coronary artery disease and history of stent placement. Troponin is negative 3. Dr. Stephen is following in cardiology consultation. Pending cardiac cath upon availability. - End-stage renal disease, hemodialysis dependent. Dr. Hubbard is following in nephrology consultation. - Diabetes mellitus type 1. Continue insulin management with insulin pump. Dr. Haddad is following an endocrinology consultation - Peripheral arterial disease, status post vascular interventions at previous admission. Continued on Eliquis. Dr. Byrnes is following in vascular surgery consultation. - Anemia of chronic disease, continue Epogen. Further recommendations based on clinical course. Plan of care discussed with Dr. Rosales. Subjective 24 Hr Interval Summary Free Text/Dictation nad, refused lab today, for heart cath tomorrow. dw staff. Constitutional: no complaints Eyes: no complaints ENT: no complaints Respiratory: no complaints Cardiovascular: no complaints Gastrointestinal: no complaints Genitourinary: no complaints Musculoskeletal: no complaints Skin: no complaints Neurologic: no complaints Endocrine: no complaints Exam/Review of Systems Vital Signs Vitals Vital Signs Date Time Temp Pulse Resp B/P Pulse Ox O2 Delivery O2 Flow Rate FiO2 08/24/16 16:50 98.0 79 19 152/83 98 08/24/16 06:00 Room Air Intake and Output 08/23/16 08/23/16 08/24/16 15:00 23:00 07:00 Intake Total 500 ml 700 ml Output Total 4200 ml Balance -3700 ml 700 ml Exam Constitutional: alert, oriented, well developed Psych: nl mood/affect Head: atraumatic Eyes: EOMI ENMT: nl external ears & nose Neck: non-tender Respiratory: clear to auscultation Cardiovascular: nl pulses Gastrointestinal: non-tender, soft Musculoskeletal: nl extremities to inspection Extremities: normal pulses 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: nl mental status, nl speech Skin: nl turgor Lymph: nontender Results Result Diagram: 08/23/16 1350 08/23/16 1350 Results 24 hrs Laboratory Tests Test 08/23/16 20:55 08/24/16 08:28 08/24/16 11:02 08/24/16 14:49 Bedside Glucose 48 *L 179 221 H 117 Medications Medications Current Medications Ondansetron HCl (Zofran Inj) 4 mg Q6H PRN IV NAUSEA AND/OR VOMITING; Start 08/21 at 05:00 Diphenhydramine HCl (Benadryl) 25 mg Q6H PRN IV ITCHING Last administered on 18:05; Admin Dose 25 MG; Start 08/21/16 at 05:00 Hydromorphone HCl (Dilaudid) 1 mg Q3H PRN IV PAIN Last administered on 14:56; Admin Dose 1 MG; Start 08/21/16 at 12:00 Aspirin (Halfprin) 81 mg DAILY PO Last administered on 08/24/16 09:12; Admin Dose 81 MG; Start 08/21/16 at 10:30 Atorvastatin Calcium (Lipitor) 80 mg QHS PO Last administered on 08/23/16 21: 04; Admin Dose 80 MG; Start 08/21/16 at 21:00 Clonidine (Catapres) 0.1 mg Q6 PO Last administered on 08/24/16 18:07; Admin Dose 0.1 MG; Start 08/21/16 at 12:00 Diphenhydramine HCl (Benadryl) 50 mg Q6 PRN PO ITCHING; Start 08/21/16 at 10:30 Docusate Sodium (Colace) 100 mg BID PO Last administered on 08/24/16 09:14; Admin Dose 100 MG; Start 08/21/16 at 10:30 Isosorbide Mononitrate (Imdur) 60 mg DAILY PO Last administered on 08/24/16 09 :13; Admin Dose 60 MG; Start 08/21/16 at 10:30 Lactobacillus Acidoph/Bulgaricus (Floranex) 1 tab TID PO Last administered on 14:55; Admin Dose 1 TAB; Start 08/21/16 at 13:00 Lisinopril (Zestril) 10 mg DAILY PO Last administered on 08/24/16 09:14; Admin Dose 10 MG; Start 08/21/16 at 10:30 Lorazepam (Ativan) 2 mg HS PO Last administered on 08/23/16 21:04; Admin Dose 2 MG; Start 08/21/16 at 21:00 Metoprolol Succinate (Toprol Xl) 50 mg BID PO Last administered on 08/24/16 09 :13; Admin Dose 50 MG; Start 08/21/16 at 10:30 Pramipexole (Mirapex) 0.25 mg HS PO ; Start 08/21/16 at 21:00 Prasugrel (Effient) 10 mg DAILY PO Last administered on 08/24/16 09:12; Admin Dose 10 MG; Start 08/21/16 at 10:30 Diphenhydramine HCl (Benadryl) 50 mg PRN PRN IV GIVE PRIOR TO EACH HD Last administered on 08/23/16 10:41; Admin Dose 50 MG; Start 08/21/16 at 12:00 Lorazepam (Ativan) 1 mg PRN PRN IV PRIOR TO EACH HD Last administered on 10:41; Admin Dose 1 MG; Start 08/21/16 at 12:30 Epoetin Fredy (Epogen (Esrd)) 10,000 units TuThSa@17 SC Last administered on 18:23; Admin Dose 10,000 UNITS; Start 08/21/16 at 17:00 Apixaban (Eliquis) 2.5 mg BID PO Last administered on 08/24/16 09:12; Admin Dose 2.5 MG; Start 08/21/16 at 21:00 Miscellaneous Information 1 ea NOTE XX ; Start 08/21/16 at 19:00 Glucose (Glutose) 15 gm Q15M PRN PO DECREASED GLUCOSE; Start 08/21/16 at 19:00 Glucose (Glutose) 22.5 gm Q15M PRN PO DECREASED GLUCOSE; Start 08/21/16 at 19:00 Dextrose (D50w Syringe) 25 ml Q15M PRN IV DECREASED GLUCOSE; Start 08/21/16 at 19:00 Dextrose (D50w Syringe) 50 ml Q15M PRN IV DECREASED GLUCOSE; Start 08/21/16 at 19:00 Glucagon (Glucagen) 1 mg Q15M PRN IM DECREASED GLUCOSE; Start 08/21/16 at 19:00 Glucose (Glutose) 15 gm Q15M PRN BUCCAL DECREASED GLUCOSE; Start 08/21/16 at 19: 00 Diphenhydramine HCl (Benadryl) 50 mg Q6H PRN IV SLEEP Last administered on t 21:20; Admin Dose 50 MG; Start 08/21/16 at 21:00 PEDRO BENSON Aug 24, 2016 18:52
--- NOTE | 2016-08-24 19:32 | CONS ---
Date/Time of Note Date/Time of Note DATE: 08/24/16 TIME: 19:31 Consult Date/Type/Reason Admit Date/Time Aug 21, 2016 at 03:32 Initial Consult Date 08/21/16 Type of Consultation: Endocrinology Ordering Provider: WILMER RODRIGUEZ MD Objective Vital Signs Date Time Temp Pulse Resp B/P Pulse Ox O2 Delivery O2 Flow Rate FiO2 08/24/16 16:50 98.0 79 19 152/83 98 08/24/16 06:00 Room Air Intake and Output 08/23/16 08/23/16 08/24/16 15:00 23:00 07:00 Intake Total 500 ml 700 ml Output Total 4200 ml Balance -3700 ml 700 ml Results/Medications Result Diagram: 08/23/16 1350 08/23/16 1350 Results 24 hrs Laboratory Tests Test 08/23/16 20:55 08/24/16 08:28 08/24/16 11:02 08/24/16 14:49 Bedside Glucose 48 *L 179 221 H 117 Medications Current Medications Ondansetron HCl (Zofran Inj) 4 mg Q6H PRN IV NAUSEA AND/OR VOMITING; Start 08/21 at 05:00 Diphenhydramine HCl (Benadryl) 25 mg Q6H PRN IV ITCHING Last administered on 18:05; Admin Dose 25 MG; Start 08/21/16 at 05:00 Hydromorphone HCl (Dilaudid) 1 mg Q3H PRN IV PAIN Last administered on 14:56; Admin Dose 1 MG; Start 08/21/16 at 12:00 Aspirin (Halfprin) 81 mg DAILY PO Last administered on 08/24/16 09:12; Admin Dose 81 MG; Start 08/21/16 at 10:30 Atorvastatin Calcium (Lipitor) 80 mg QHS PO Last administered on 08/23/16 21: 04; Admin Dose 80 MG; Start 08/21/16 at 21:00 Clonidine (Catapres) 0.1 mg Q6 PO Last administered on 08/24/16 18:07; Admin Dose 0.1 MG; Start 08/21/16 at 12:00 Diphenhydramine HCl (Benadryl) 50 mg Q6 PRN PO ITCHING; Start 08/21/16 at 10:30 Docusate Sodium (Colace) 100 mg BID PO Last administered on 08/24/16 09:14; Admin Dose 100 MG; Start 08/21/16 at 10:30 Isosorbide Mononitrate (Imdur) 60 mg DAILY PO Last administered on 08/24/16 09 :13; Admin Dose 60 MG; Start 08/21/16 at 10:30 Lactobacillus Acidoph/Bulgaricus (Floranex) 1 tab TID PO Last administered on 14:55; Admin Dose 1 TAB; Start 08/21/16 at 13:00 Lisinopril (Zestril) 10 mg DAILY PO Last administered on 08/24/16 09:14; Admin Dose 10 MG; Start 08/21/16 at 10:30 Lorazepam (Ativan) 2 mg HS PO Last administered on 08/23/16 21:04; Admin Dose 2 MG; Start 08/21/16 at 21:00 Metoprolol Succinate (Toprol Xl) 50 mg BID PO Last administered on 08/24/16 09 :13; Admin Dose 50 MG; Start 08/21/16 at 10:30 Pramipexole (Mirapex) 0.25 mg HS PO ; Start 08/21/16 at 21:00 Prasugrel (Effient) 10 mg DAILY PO Last administered on 08/24/16 09:12; Admin Dose 10 MG; Start 08/21/16 at 10:30 Diphenhydramine HCl (Benadryl) 50 mg PRN PRN IV GIVE PRIOR TO EACH HD Last administered on 08/23/16 10:41; Admin Dose 50 MG; Start 08/21/16 at 12:00 Lorazepam (Ativan) 1 mg PRN PRN IV PRIOR TO EACH HD Last administered on 10:41; Admin Dose 1 MG; Start 08/21/16 at 12:30 Epoetin Fredy (Epogen (Esrd)) 10,000 units TuThSa@17 SC Last administered on 18:23; Admin Dose 10,000 UNITS; Start 08/21/16 at 17:00 Apixaban (Eliquis) 2.5 mg BID PO Last administered on 08/24/16 09:12; Admin Dose 2.5 MG; Start 08/21/16 at 21:00 Miscellaneous Information 1 ea NOTE XX ; Start 08/21/16 at 19:00 Glucose (Glutose) 15 gm Q15M PRN PO DECREASED GLUCOSE; Start 08/21/16 at 19:00 Glucose (Glutose) 22.5 gm Q15M PRN PO DECREASED GLUCOSE; Start 08/21/16 at 19:00 Dextrose (D50w Syringe) 25 ml Q15M PRN IV DECREASED GLUCOSE; Start 08/21/16 at 19:00 Dextrose (D50w Syringe) 50 ml Q15M PRN IV DECREASED GLUCOSE; Start 08/21/16 at 19:00 Glucagon (Glucagen) 1 mg Q15M PRN IM DECREASED GLUCOSE; Start 08/21/16 at 19:00 Glucose (Glutose) 15 gm Q15M PRN BUCCAL DECREASED GLUCOSE; Start 08/21/16 at 19: 00 Diphenhydramine HCl (Benadryl) 50 mg Q6H PRN IV SLEEP Last administered on t 21:20; Admin Dose 50 MG; Start 08/21/16 at 21:00 Assessment/Plan Chief Complaint/Hosp Course Patient is my patient from out pt, He has last [place] sept with [employer] s/p PCi by me at [facility]. He has ESRD and PAD with plan to open his Right SFA out pt.came in with CP, stable angina. trop neg x 2. Echo with normal wall motion and normal function. EKG non ischemic. Problems: Additional Assessment/Plan Unstable angina Resting leg pain [place] PAD Plan for [facility] with possible PCI as well as Right lower ext intervention as he has severe SFA stenosis and having resting pain. NPO PMN 7:30AM procedure will .CYNDIE Murray MD Aug 24, 2016 19:32
[2016-08-24] MEDS: PRAMIPEXOLE 0.25 MG TAB PO SCH (21:00)
[2016-08-24] MEDS: LORAZEPAM 1 MG TAB PO SCH (21:07)
[2016-08-24] MEDS: ATORVASTATIN 80 MG TAB PO SCH (21:07)
[2016-08-25] VITALS (28 sets, daily range): BP systolic 117–180; BP diastolic 62–92; PULSE 70–99; RESP 12–20
[2016-08-25] MEDS: HYDROmorphONE 1 MG/ML SYG IV PRN ×6 (00:03→14:59)
[2016-08-25] MEDS: DIPHENHYDRAMINE 50 MG INJ IV PRN ×4 (00:03→18:17)
[2016-08-25] MEDS ORDERED: HEPARIN 1000 UNITS/ML 10 ML INJ ONE (07:08)
[2016-08-25] MEDS ORDERED: LIDOCAINE 1% (MDV) 20 ML INJ ONE (07:08)
[2016-08-25] MEDS ORDERED: IODIXANOL LOCM 100 ML BTL ONE (07:08)
[2016-08-25] MEDS ORDERED: VERAPAMIL 5 MG INJ ONE (07:08)
[2016-08-25] MEDS ORDERED: NITROGLYCERIN (IC) 100 MCG/ML INJ ONE (07:08)
[2016-08-25] MEDS: ACCUCHECK XX SCH ×7 (07:30→21:05)
[2016-08-25] MEDS: [UNRECOGNIZED DRUG - OTHER] SC SCH ×4 (07:30→21:00)
[2016-08-25] MEDS ORDERED: NEOSTIGMINE 3 MG/3 ML SYRINGE ONE (07:46)
[2016-08-25] MEDS ORDERED: ROCURONIUM 50 MG INJ ONE (07:46)
[2016-08-25] MEDS ORDERED: LIDOCAINE 2% (SDV) 5 ML INJ ONE (07:46)
[2016-08-25] MEDS ORDERED: GLYCOPYRROLATE 0.4 MG INJ ONE (07:46)
[2016-08-25] MEDS ORDERED: PROPOFOL 20 ML ONE (07:46)
[2016-08-25] MEDS ORDERED: MEPERIDINE 25 MG INJ IV PRN (08:30)
[2016-08-25] MEDS ORDERED: ONDANSETRON 4 MG INJ IV PRN (08:30)
[2016-08-25] MEDS ORDERED: MIDAZOLAM 1 MG/ML 2 ML INJ IV PRN (08:30)
[2016-08-25] MEDS ORDERED: DIPHENHYDRAMINE 50 MG INJ IV PRN (08:30)
[2016-08-25] MEDS ORDERED: hydrALAzine 20 MG INJ IV PRN (08:30)
[2016-08-25] MEDS ORDERED: FENTAnyl 50 MCG/ML VIAL IV PRN (08:30)
[2016-08-25] MEDS ORDERED: NITROGLYCERIN IV SCH (08:30)
[2016-08-25] MEDS ORDERED: LABETALOL HCL 20MG INJ IV PRN (08:30)
[2016-08-25] MEDS ORDERED: METOCLOPRAMIDE 10 MG INJ IV PRN (08:30)
[2016-08-25 08:58] LABS: ADD SCAN DIFF NO
[2016-08-25] MEDS: PRASUGREL HYDROCHLORIDE 10 MG TABLET PO SCH (09:00)
[2016-08-25] MEDS: ISOSORBIDE MONONITRATE(SR)60 MG TAB PO SCH ×2 (09:00→16:00)
[2016-08-25] MEDS: METOPROLOL (XL) 50 MG TAB PO SCH ×3 (09:00→21:07)
[2016-08-25] MEDS: LISINOPRIL 10 MG TAB PO SCH ×2 (09:00→16:00)
[2016-08-25 09:04] LABS: BASOPHILS % 0.7 % (0.0-2.0); EOSINOPHILS # 0.8 10^3/ul (0.0-0.5); EOSINOPHILS % 14.2 % (0.0-7.0); HEMATOCRIT 25.6 % (42.0-52.0); HEMOGLOBIN 8.2 g/dl (14.0-18.0); LYMPHOCYTES # 0.9 10^3/ul (0.8-2.9); LYMPHOCYTES % 15.5 % (15.0-51.0); MEAN CORPUSCULAR HEMOGLOBIN 30.4 pg (29.0-33.0); MEAN CORPUSCULAR VOLUME 94.8 fl (82.0-101.0); MEAN PLATELET VOLUME 11.3 fl (7.4-10.4); MONOCYTE # 0.5 10^3/ul (0.3-0.9); MONOCYTES % 9.3 % (0.0-11.0); NEUTROPHIL # 3.3 10^3/ul (1.6-7.5); NEUTROPHILS % 60.1 % (39.0-77.0); PLATELET COUNT 141 10^3/UL (140-415); RED CELL DISTRIBUTION WIDTH 15.1 % (11.5-14.5); WHITE BLOOD COUNT 5.5 10^3/ul (4.8-10.8)
[2016-08-25 09:12] LABS: INR 1.58; PT RATIO 1.5
[2016-08-25] MEDS ORDERED: CEFAZOLIN 1 GM/50 ML (PMX) IVPB ONE (09:15)
[2016-08-25 09:21] LABS: CALCIUM 6.4 mg/dl (8.4-10.2); MAGNESIUM 1.6 mg/dl (1.7-2.5)
[2016-08-25 09:31] LABS: PARTIAL THROMBOPLASTIN TIME > 180.0 Sec (25.0-35.0)
--- NOTE | 2016-08-25 09:37 | CONS ---
Date/Time of Note Date/Time of Note DATE: 08/25/16 TIME: 09:35 Consult Date/Type/Reason Admit Date/Time Aug 21, 2016 at 03:32 Initial Consult Date 08/21/16 Type of Consultation: Endocrinology Ordering Provider: WILMER RODRIGUEZ MD Objective Vital Signs Date Time Temp Pulse Resp B/P Pulse Ox O2 Delivery O2 Flow Rate FiO2 08/25/16 04:06 97.7 77 18 162/86 96 08/24/16 06:00 Room Air Intake and Output 08/24/16 08/24/16 08/25/16 15:00 23:00 07:00 Intake Total 1050 ml Balance 1050 ml Results/Medications Result Diagram: 08/25/16 0840 08/25/16 0840 Results 24 hrs Laboratory Tests Test 08/24/16 11:02 08/24/16 14:49 08/24/16 21:06 08/25/16 04:52 Bedside Glucose 221 H 117 141 123 Test 08/25/16 08:40 Activated Partial Thromboplast Time > 180.0 *H Anion Gap Pending Basophils # 0.0 Basophils % 0.7 Blood Urea Nitrogen Pending Calcium Level Pending Carbon Dioxide Level Pending Chloride Level 100 Creatinine Pending Eosinophils # 0.8 H Eosinophils % 14.2 H Glucose Level Pending Hematocrit 25.6 #L Hemoglobin 8.2 #L INR International Normalized Ratio 1.58 Lymphocytes # 0.9 Lymphocytes % 15.5 Magnesium Level Pending Mean Corpuscular Hemoglobin 30.4 Mean Corpuscular Hemoglobin Concent 32.0 Mean Corpuscular Volume 94.8 Mean Platelet Volume 11.3 H Monocytes # 0.5 Monocytes % 9.3 Neutrophils # 3.3 Neutrophils % 60.1 Nucleated Red Blood Cells # 0.0 Nucleated Red Blood Cells % 0.0 Platelet Count 141 Potassium Level Pending Prothrombin Time 19.0 H Prothrombin Time Ratio 1.5 Red Blood Count 2.70 #L Red Cell Distribution Width 15.1 H Sodium Level 134 L White Blood Count 5.5 # Medications Current Medications Ondansetron HCl (Zofran Inj) 4 mg Q6H PRN IV NAUSEA AND/OR VOMITING; Start 08/21 at 05:00 Diphenhydramine HCl (Benadryl) 25 mg Q6H PRN IV ITCHING Last administered on t 06:58; Admin Dose 25 MG; Start 08/21/16 at 05:00 Hydromorphone HCl (Dilaudid) 1 mg Q3H PRN IV PAIN Last administered on 06:58; Admin Dose 1 MG; Start 08/21/16 at 12:00 Aspirin (Halfprin) 81 mg DAILY PO Last administered on 08/24/16 09:12; Admin Dose 81 MG; Start 08/21/16 at 10:30 Atorvastatin Calcium (Lipitor) 80 mg QHS PO Last administered on 08/24/16 21: 07; Admin Dose 80 MG; Start 08/21/16 at 21:00 Clonidine (Catapres) 0.1 mg Q6 PO Last administered on 08/25/16 06:59; Admin Dose 0.1 MG; Start 08/21/16 at 12:00 Diphenhydramine HCl (Benadryl) 50 mg Q6 PRN PO ITCHING; Start 08/21/16 at 10:30 Docusate Sodium (Colace) 100 mg BID PO Last administered on 08/24/16 21:07; Admin Dose 100 MG; Start 08/21/16 at 10:30 Isosorbide Mononitrate (Imdur) 60 mg DAILY PO Last administered on 08/24/16 09 :13; Admin Dose 60 MG; Start 08/21/16 at 10:30 Lactobacillus Acidoph/Bulgaricus (Floranex) 1 tab TID PO Last administered on 21:07; Admin Dose 1 TAB; Start 08/21/16 at 13:00 Lisinopril (Zestril) 10 mg DAILY PO Last administered on 08/24/16 09:14; Admin Dose 10 MG; Start 08/21/16 at 10:30 Lorazepam (Ativan) 2 mg HS PO Last administered on 08/24/16 21:07; Admin Dose 2 MG; Start 08/21/16 at 21:00 Metoprolol Succinate (Toprol Xl) 50 mg BID PO Last administered on 08/24/16 21 :08; Admin Dose 50 MG; Start 08/21/16 at 10:30 Pramipexole (Mirapex) 0.25 mg HS PO ; Start 08/21/16 at 21:00 Prasugrel (Effient) 10 mg DAILY PO Last administered on 08/24/16 09:12; Admin Dose 10 MG; Start 08/21/16 at 10:30 Diphenhydramine HCl (Benadryl) 50 mg PRN PRN IV GIVE PRIOR TO EACH HD Last administered on 08/23/16 10:41; Admin Dose 50 MG; Start 08/21/16 at 12:00 Lorazepam (Ativan) 1 mg PRN PRN IV PRIOR TO EACH HD Last administered on 10:41; Admin Dose 1 MG; Start 08/21/16 at 12:30 Epoetin Fredy (Epogen (Esrd)) 10,000 units TuThSa@17 SC Last administered on 18:23; Admin Dose 10,000 UNITS; Start 08/21/16 at 17:00 Apixaban (Eliquis) 2.5 mg BID PO Last administered on 08/24/16 21:07; Admin Dose 2.5 MG; Start 08/21/16 at 21:00 Miscellaneous Information 1 ea NOTE XX ; Start 08/21/16 at 19:00 Glucose (Glutose) 15 gm Q15M PRN PO DECREASED GLUCOSE; Start 08/21/16 at 19:00 Glucose (Glutose) 22.5 gm Q15M PRN PO DECREASED GLUCOSE; Start 08/21/16 at 19:00 Dextrose (D50w Syringe) 25 ml Q15M PRN IV DECREASED GLUCOSE; Start 08/21/16 at 19:00 Dextrose (D50w Syringe) 50 ml Q15M PRN IV DECREASED GLUCOSE; Start 08/21/16 at 19:00 Glucagon (Glucagen) 1 mg Q15M PRN IM DECREASED GLUCOSE; Start 08/21/16 at 19:00 Glucose (Glutose) 15 gm Q15M PRN BUCCAL DECREASED GLUCOSE; Start 08/21/16 at 19: 00 Diphenhydramine HCl (Benadryl) 50 mg Q6H PRN IV SLEEP Last administered on 21:20; Admin Dose 50 MG; Start 08/21/16 at 21:00 Assessment/Plan Chief Complaint/Hosp Course Patient is my patient from out pt, [place] last [place] with LAD MANAGEMENT DEVELOPMENT SPECIALIST s/p PCi by me at [facility]. He has ESRD and PAD with plan to open his Right SFA out pt.came in with CP, stable angina. trop neg x 2. Echo with normal wall motion and normal function. EKG non ischemic. Problems: Additional Assessment/Plan S/P LHC LAD MANAGEMENT DEVELOPMENT SPECIALIST distally at the edge of previous stent. Acute event. Successful LAD pantograph operator with PCI Contineu effient aND asa Successful Right SFA and pop DCB with Zilver PTX stent placement. pt is doing fine cardiac mcdonald he is stable and may d/c home or NH tomorrow or day after. CYDNIE GARCIA MD Aug 25, 2016 09:37
[2016-08-25 09:38] LABS: CREATININE 7.39 mg/dl (0.61-1.24)
[2016-08-25 09:44] LABS: POTASSIUM 6.2 mmol/L (3.5-5.1)
[2016-08-25] MEDS: FENTAnyl 50 MCG/ML VIAL IV PRN ×2 (09:56→10:09)
[2016-08-25] MEDS: CALCIUM ACETATE 667 MG CAP PO SCH ×3 (12:00→18:15)
[2016-08-25] MEDS: SEVELAMER 800 MG TAB PO SCH ×3 (12:00→18:15)
[2016-08-25] MEDS: PATIROMER CALCIUM SORBITEX 16.8 GM PKT PO SCH (12:00)
--- NOTE | 2016-08-25 12:16 | PN ---
Date/Time of Note Date/Time of Note DATE: 08/25/16 TIME: 12:11 Assessment/Plan VTE Prophylaxis VTE Prophylaxis Intervention: SCD's Lines/Catheters IV [facility]ter Type (from [email or web address] Portacath Urinary Cath still in place: No Assessment/Plan Chief Complaint/Hosp Course Assessment/Plan - Chest pain in patient with coronary artery disease and history of stent placement. Troponin is negative 3. Dr. Stephen is following in cardiology consultation. S/P LHC, LAD PRODUCT OPERATIONS ASSOCIATE distally at the edge of previous stent. Successful LAD PRODUCT OPERATIONS ASSOCIATE with PCI S/p Successful Right SFA and pop DCB with Zilver PTX stent placement by Dr Stephen on 08/25. - End-stage renal disease, hemodialysis dependent. Dr. Hubbard is following in nephrology consultation. - Diabetes mellitus type 1. Continue insulin management with insulin pump. Dr. Haddad is following an endocrinology consultation - Peripheral arterial disease, status post vascular interventions at previous admission. Continued on Eliquis. Dr. Byrnes is following in vascular surgery consultation. - Anemia of chronic disease, continue Epogen. Further recommendations based on clinical course. Plan of care discussed with Dr. Rosales. Problems: Subjective 24 Hr Interval Summary Free Text/Dictation Patient complains of generalized pain and groin pain, denies SOB, denies cheat pain. Exam/Review of Systems Vital Signs Vitals Vital Signs Date Time Temp Pulse Resp B/P Pulse Ox O2 Delivery O2 Flow Rate FiO2 08/25/16 10:55 88 16 133/70 100 Room Air 08/25/16 04:06 97.7 Intake and Output 08/24/16 08/24/16 08/25/16 15:00 23:00 07:00 Intake Total 1050 ml Balance 1050 ml Exam GENERAL: Well-developed, well-nourished male, currently appears pale, awake, alert. HEENT: The patient has right eye prosthesis. Left pupil is equal, round, reactive to light and accommodation. NECK: Supple. No cervical lymphadenopathy, no thyromegaly. CHEST: Lungs clear bilaterally. There are no rhonchi, wheezes, rales noted. CARDIOVASCULAR: Normal S1, S2. No murmurs, gallops, clicks, rubs noted. ABDOMEN: Flat, soft, nondistended. The patient has generalized tenderness to epigastric tenderness on palpation. No guarding. EXTREMITIES: No edema, clubbing, cyanosis. Left upper extremity AV graft with a palpable thrill and audible bruit. SKIN: No rash, petechiae noted. NEUROLOGIC: The patient is awake, alert, and oriented x3. Results Result Diagram: 08/25/16 0840 08/25/16 0840 Results 24 hrs Laboratory Tests Test 08/24/16 14:49 08/24/16 21:06 08/25/16 04:52 08/25/16 08:40 Bedside Glucose 117 141 123 Activated Partial Thromboplast Time > 180.0 *H Anion Gap 23 H Basophils # 0.0 Basophils % 0.7 Blood Urea Nitrogen 61 #H Calcium Level 6.4 L Carbon Dioxide Level 17 #L Chloride Level 100 Creatinine 7.39 #H Eosinophils # 0.8 H Eosinophils % 14.2 H Glucose Level 180 Hematocrit 25.6 #L Hemoglobin 8.2 #L INR International Normalized Ratio 1.58 Lymphocytes # 0.9 Lymphocytes % 15.5 Magnesium Level 1.6 L Mean Corpuscular Hemoglobin 30.4 Mean Corpuscular Hemoglobin Concent 32.0 Mean Corpuscular Volume 94.8 Mean Platelet Volume 11.3 H Monocytes # 0.5 Monocytes % 9.3 Neutrophils # 3.3 Neutrophils % 60.1 Nucleated Red Blood Cells # 0.0 Nucleated Red Blood Cells % 0.0 Platelet Count 141 Potassium Level 6.2 #*H Prothrombin Time 19.0 H Prothrombin Time Ratio 1.5 Red Blood Count 2.70 #L Red Cell Distribution Width 15.1 H Sodium Level 134 L White Blood Count 5.5 # Test 08/25/16 09:41 Bedside Glucose 193 Medications Medications Current Medications Ondansetron HCl (Zofran Inj) 4 mg Q6H PRN IV NAUSEA AND/OR VOMITING; Start 08/21 at 05:00 Diphenhydramine HCl (Benadryl) 25 mg Q6H PRN IV ITCHING Last administered on 06:58; Admin Dose 25 MG; Start 08/21/16 at 05:00 Aspirin (Halfprin) 81 mg DAILY PO Last administered on 08/24/16 09:12; Admin Dose 81 MG; Start 08/21/16 at 10:30 Atorvastatin Calcium (Lipitor) 80 mg QHS PO Last administered on 08/24/16 21: 07; Admin Dose 80 MG; Start 08/21/16 at 21:00 Clonidine (Catapres) 0.1 mg Q6 PO Last administered on 08/25/16 06:59; Admin Dose 0.1 MG; Start 08/21/16 at 12:00 Diphenhydramine HCl (Benadryl) 50 mg Q6 PRN PO ITCHING; Start 08/21/16 at 10:30 Docusate Sodium (Colace) 100 mg BID PO Last administered on 08/24/16 21:07; Admin Dose 100 MG; Start 08/21/16 at 10:30 Isosorbide Mononitrate (Imdur) 60 mg DAILY PO Last administered on 08/24/16 09 :13; Admin Dose 60 MG; Start 08/21/16 at 10:30 Lactobacillus Acidoph/Bulgaricus (Floranex) 1 tab TID PO Last administered on 21:07; Admin Dose 1 TAB; Start 08/21/16 at 13:00 Lisinopril (Zestril) 10 mg DAILY PO Last administered on 08/24/16 09:14; Admin Dose 10 MG; Start 08/21/16 at 10:30 Lorazepam (Ativan) 2 mg HS PO Last administered on 08/24/16 21:07; Admin Dose 2 MG; Start 08/21/16 at 21:00 Metoprolol Succinate (Toprol Xl) 50 mg BID PO Last administered on 08/24/16 21 :08; Admin Dose 50 MG; Start 08/21/16 at 10:30 Pramipexole (Mirapex) 0.25 mg HS PO ; Start 08/21/16 at 21:00 Prasugrel (Effient) 10 mg DAILY PO Last administered on 08/24/16 09:12; Admin Dose 10 MG; Start 08/21/16 at 10:30 Diphenhydramine HCl (Benadryl) 50 mg PRN PRN IV GIVE PRIOR TO EACH HD Last administered on 08/23/16 10:41; Admin Dose 50 MG; Start 08/21/16 at 12:00 Lorazepam (Ativan) 1 mg PRN PRN IV PRIOR TO EACH HD Last administered on 10:41; Admin Dose 1 MG; Start 08/21/16 at 12:30 Epoetin Fredy (Epogen (Esrd)) 10,000 units TuThSa@17 SC Last administered on 18:23; Admin Dose 10,000 UNITS; Start 08/21/16 at 17:00 Apixaban (Eliquis) 2.5 mg BID PO Last administered on 08/24/16 21:07; Admin Dose 2.5 MG; Start 08/21/16 at 21:00 Miscellaneous Information 1 ea NOTE XX ; Start 08/21/16 at 19:00 Glucose (Glutose) 15 gm Q15M PRN PO DECREASED GLUCOSE; Start 08/21/16 at 19:00 Glucose (Glutose) 22.5 gm Q15M PRN PO DECREASED GLUCOSE; Start 08/21/16 at 19:00 Dextrose (D50w Syringe) 25 ml Q15M PRN IV DECREASED GLUCOSE; Start 08/21/16 at 19:00 Dextrose (D50w Syringe) 50 ml Q15M PRN IV DECREASED GLUCOSE; Start 08/21/16 at 19:00 Glucagon (Glucagen) 1 mg Q15M PRN IM DECREASED GLUCOSE; Start 08/21/16 at 19:00 Glucose (Glutose) 15 gm Q15M PRN BUCCAL DECREASED GLUCOSE; Start 08/21/16 at 19: 00 Diphenhydramine HCl (Benadryl) 50 mg Q6H PRN IV SLEEP Last administered on 21:20; Admin Dose 50 MG; Start 08/21/16 at 21:00 Hydromorphone HCl (Dilaudid) 2 mg Q3H PRN IV PAIN Last administered on 11:47; Admin Dose 2 MG; Start 08/25/16 at 12:00; Stop 08/25/16 at 18:00 ANGELINA CASTREJON Aug 25, 2016 12:15
[2016-08-25] MEDS: LORAZEPAM 2 MG INJ IV PRN (12:26)
[2016-08-25] MEDS: LACTOBACILLUS CHEW TAB PO SCH ×3 (13:00→21:04)
--- NOTE | 2016-08-25 13:37 | CONS ---
Date/Time of Note Date/Time of Note DATE: 08/25/16 TIME: 13:31 Assessment/Plan Assessment/Plan Chief Complaint/Hosp Course 1. ESRD , he is on dialysis T S ; however , his potassium today is 6.2 . He is having hemodialysis now . I will order hemodialysis for tomorrow . 2. he was admitted for chest pain . He is now post op [facility] with coronary artery stent placement in LAD and R SFA . 3. HTN 4. Type 1 DM 5. PAD 6. Hyperkalemia , he is on Veltassa Problems: Consultation Date/Type/Reason Admit Date/Time Aug 21, 2016 at 03:32 Initial Consult Date 08/21/16 Type of Consultation: renal Referring Provider: WILMER RODRIGUEZ MD 24 HR Interval Summary Free Text/Dictation He is now having a hemodialysis treatment after having a left heart cath , LAD stent placement and R SFA stent placement by Dr Stephen . Constitutional: no complaints Exam/Review of Systems Vital Signs Vitals Vital Signs Date Time Temp Pulse Resp B/P Pulse Ox O2 Delivery O2 Flow Rate FiO2 08/25/16 12:54 70 08/25/16 11:05 18 08/25/16 10:55 133/70 100 Room Air 08/25/16 04:06 97.7 Intake and Output 08/24/16 08/24/16 08/25/16 15:00 23:00 07:00 Intake Total 1050 ml Balance 1050 ml Exam he is sleeping after premedication for dialysis . Respiratory: clear to auscultation, normal air movement Cardiovascular: regular rate and rhythm Gastrointestinal: soft Extremities: edema Results Result Diagram: 08/25/16 0840 08/25/16 0840 Results 24 hrs Laboratory Tests Test 08/24/16 14:49 08/24/16 21:06 08/25/16 04:52 08/25/16 08:40 Bedside Glucose 117 141 123 Activated Partial Thromboplast Time > 180.0 *H Anion Gap 23 H Basophils # 0.0 Basophils % 0.7 Blood Urea Nitrogen 61 #H Calcium Level 6.4 L Carbon Dioxide Level 17 #L Chloride Level 100 Creatinine 7.39 #H Eosinophils # 0.8 H Eosinophils % 14.2 H Glucose Level 180 Hematocrit 25.6 #L Hemoglobin 8.2 #L INR International Normalized Ratio 1.58 Lymphocytes # 0.9 Lymphocytes % 15.5 Magnesium Level 1.6 L Mean Corpuscular Hemoglobin 30.4 Mean Corpuscular Hemoglobin Concent 32.0 Mean Corpuscular Volume 94.8 Mean Platelet Volume 11.3 H Monocytes # 0.5 Monocytes % 9.3 Neutrophils # 3.3 Neutrophils % 60.1 Nucleated Red Blood Cells # 0.0 Nucleated Red Blood Cells % 0.0 Platelet Count 141 Potassium Level 6.2 #*H Prothrombin Time 19.0 H Prothrombin Time Ratio 1.5 Red Blood Count 2.70 #L Red Cell Distribution Width 15.1 H Sodium Level 134 L White Blood Count 5.5 # Test 08/25/16 09:41 Bedside Glucose 193 Medications Medications Current Medications Ondansetron HCl (Zofran Inj) 4 mg Q6H PRN IV NAUSEA AND/OR VOMITING; Start 08/21 at 05:00 Diphenhydramine HCl (Benadryl) 25 mg Q6H PRN IV ITCHING Last administered on 06:58; Admin Dose 25 MG; Start 08/21/16 at 05:00 Aspirin (Halfprin) 81 mg DAILY PO Last administered on 08/24/16 09:12; Admin Dose 81 MG; Start 08/21/16 at 10:30 Atorvastatin Calcium (Lipitor) 80 mg QHS PO Last administered on 08/24/16 21: 07; Admin Dose 80 MG; Start 08/21/16 at 21:00 Clonidine (Catapres) 0.1 mg Q6 PO Last administered on 08/25/16 06:59; Admin Dose 0.1 MG; Start 08/21/16 at 12:00 Diphenhydramine HCl (Benadryl) 50 mg Q6 PRN PO ITCHING; Start 08/21/16 at 10:30 Docusate Sodium (Colace) 100 mg BID PO Last administered on 08/24/16 21:07; Admin Dose 100 MG; Start 08/21/16 at 10:30 Isosorbide Mononitrate (Imdur) 60 mg DAILY PO Last administered on 08/24/16 09 :13; Admin Dose 60 MG; Start 08/21/16 at 10:30 Lactobacillus Acidoph/Bulgaricus (Floranex) 1 tab TID PO Last administered on 21:07; Admin Dose 1 TAB; Start 08/21/16 at 13:00 Lisinopril (Zestril) 10 mg DAILY PO Last administered on 08/24/16 09:14; Admin Dose 10 MG; Start 08/21/16 at 10:30 Lorazepam (Ativan) 2 mg HS PO Last administered on 08/24/16 21:07; Admin Dose 2 MG; Start 08/21/16 at 21:00 Metoprolol Succinate (Toprol Xl) 50 mg BID PO Last administered on 08/24/16 21 :08; Admin Dose 50 MG; Start 08/21/16 at 10:30 Pramipexole (Mirapex) 0.25 mg HS PO ; Start 08/21/16 at 21:00 Prasugrel (Effient) 10 mg DAILY PO Last administered on 08/24/16 09:12; Admin Dose 10 MG; Start 08/21/16 at 10:30 Diphenhydramine HCl (Benadryl) 50 mg PRN PRN IV GIVE PRIOR TO EACH HD Last administered on 08/25/16 12:26; Admin Dose 50 MG; Start 08/21/16 at 12:00 Lorazepam (Ativan) 1 mg PRN PRN IV PRIOR TO EACH HD Last administered on 12:26; Admin Dose 1 MG; Start 08/21/16 at 12:30 Epoetin Fredy (Epogen (Esrd)) 10,000 units TuThSa@17 SC Last administered on 18:23; Admin Dose 10,000 UNITS; Start 08/21/16 at 17:00 Apixaban (Eliquis) 2.5 mg BID PO Last administered on 08/24/16 21:07; Admin Dose 2.5 MG; Start 08/21/16 at 21:00 Miscellaneous Information 1 ea NOTE XX ; Start 08/21/16 at 19:00 Glucose (Glutose) 15 gm Q15M PRN PO DECREASED GLUCOSE; Start 08/21/16 at 19:00 Glucose (Glutose) 22.5 gm Q15M PRN PO DECREASED GLUCOSE; Start 08/21/16 at 19:00 Dextrose (D50w Syringe) 25 ml Q15M PRN IV DECREASED GLUCOSE; Start 08/21/16 at 19:00 Dextrose (D50w Syringe) 50 ml Q15M PRN IV DECREASED GLUCOSE; Start 08/21/16 at 19:00 Glucagon (Glucagen) 1 mg Q15M PRN IM DECREASED GLUCOSE; Start 08/21/16 at 19:00 Glucose (Glutose) 15 gm Q15M PRN BUCCAL DECREASED GLUCOSE; Start 08/21/16 at 19: 00 Diphenhydramine HCl (Benadryl) 50 mg Q6H PRN IV SLEEP Last administered on 21:20; Admin Dose 50 MG; Start 08/21/16 at 21:00 Hydromorphone HCl (Dilaudid) 2 mg Q3H PRN IV PAIN Last administered on 11:47; Admin Dose 2 MG; Start 08/25/16 at 12:00; Stop 08/25/16 at 18:00 DONY HOWARD MD Aug 25, 2016 13:37
[2016-08-25] MEDS: DOCUSATE SODIUM 100 MG CAP PO SCH ×2 (15:54→21:04)
[2016-08-25] MEDS: ASPIRIN (EC) 81 MG TAB PO SCH (15:55)
[2016-08-25] MEDS: APIXABAN 5 MG TABLET PO SCH ×2 (15:55→21:05)
[2016-08-25] MEDS: HYDROmorphONE 2 MG/ML SYG IV PRN ×2 (18:17→21:05)
[2016-08-25] MEDS: LORAZEPAM 1 MG TAB PO SCH (21:04)
[2016-08-25] MEDS: PRAMIPEXOLE 0.25 MG TAB PO SCH (21:04)
[2016-08-25] MEDS: ATORVASTATIN 80 MG TAB PO SCH (21:04)
[2016-08-26] VITALS (28 sets, daily range): BP systolic 104–160; BP diastolic 62–85; PULSE 63–81; RESP 16–19
[2016-08-26] MEDS: HYDROmorphONE 2 MG/ML SYG IV PRN ×7 (00:02→23:33)
[2016-08-26] MEDS: DIPHENHYDRAMINE 50 MG INJ IV PRN ×4 (00:02→20:09)
[2016-08-26] MEDS: LORAZEPAM 2 MG INJ IV PRN (07:08)
[2016-08-26] MEDS: ACCUCHECK XX SCH ×7 (07:30→21:20)
[2016-08-26] MEDS: [UNRECOGNIZED DRUG - OTHER] SC SCH ×4 (07:30→21:00)
[2016-08-26] MEDS: CALCIUM ACETATE 667 MG CAP PO SCH ×3 (08:00→18:05)
[2016-08-26] MEDS: SEVELAMER 800 MG TAB PO SCH ×3 (08:00→18:05)
--- NOTE | 2016-08-26 08:16 | CONS ---
Date/Time of Note Date/Time of Note DATE: 08/26/16 TIME: 08:12 Assessment/Plan Assessment/Plan Chief Complaint/Hosp Course 1. ESRD , he is on dialysis T T S . He is having hemodialysis now . 2. he was admitted for chest pain . He is now , one day post op a [facility] with coronary artery stent placement in LAD and R SFA . 3. HTN 4. Type 1 DM 5. PAD 6. Hyperkalemia , he is on Veltassa Problems: Consultation Date/Type/Reason Admit Date/Time Aug 21, 2016 at 03:32 Initial Consult Date 08/21/16 Type of Consultation: renal Referring Provider: WILMER RODRIGUEZ MD 24 HR Interval Summary Free Text/Dictation He is now having hemodialysis treatment . He is sleeping from pre dialysis medication . Constitutional: no complaints Exam/Review of Systems Vital Signs Vitals Vital Signs Date Time Temp Pulse Resp B/P Pulse Ox O2 Delivery O2 Flow Rate FiO2 08/26/16 07:54 98.7 76 19 126/75 96 08/25/16 10:55 Room Air Intake and Output 08/25/16 08/25/16 08/26/16 15:00 23:00 07:00 Intake Total 500 ml 600 ml Output Total 3400 ml 300 ml Balance -2900 ml 300 ml Exam He is sleeping . Respiratory: clear to auscultation, normal air movement Cardiovascular: nl pulses, regular rate and rhythm Gastrointestinal: soft Musculoskeletal: nl extremities to inspection Results Result Diagram: 08/25/16 0840 08/25/16 0840 Results 24 hrs Laboratory Tests Test 08/25/16 08:40 08/25/16 09:41 08/25/16 16:37 08/25/16 21:12 Activated Partial Thromboplast Time > 180.0 *H Anion Gap 23 H Basophils # 0.0 Basophils % 0.7 Blood Urea Nitrogen 61 #H Calcium Level 6.4 L Carbon Dioxide Level 17 #L Chloride Level 100 Creatinine 7.39 #H Eosinophils # 0.8 H Eosinophils % 14.2 H Glucose Level 180 Hematocrit 25.6 #L Hemoglobin 8.2 #L INR International Normalized Ratio 1.58 Lymphocytes # 0.9 Lymphocytes % 15.5 Magnesium Level 1.6 L Mean Corpuscular Hemoglobin 30.4 Mean Corpuscular Hemoglobin Concent 32.0 Mean Corpuscular Volume 94.8 Mean Platelet Volume 11.3 H Monocytes # 0.5 Monocytes % 9.3 Neutrophils # 3.3 Neutrophils % 60.1 Nucleated Red Blood Cells # 0.0 Nucleated Red Blood Cells % 0.0 Platelet Count 141 Potassium Level 6.2 #*H Prothrombin Time 19.0 H Prothrombin Time Ratio 1.5 Red Blood Count 2.70 #L Red Cell Distribution Width 15.1 H Sodium Level 134 L White Blood Count 5.5 # Bedside Glucose 193 175 151 Medications Medications Current Medications Ondansetron HCl (Zofran Inj) 4 mg Q6H PRN IV NAUSEA AND/OR VOMITING; Start 08/21 at 05:00 Diphenhydramine HCl (Benadryl) 25 mg Q6H PRN IV ITCHING Last administered on 00:02; Admin Dose 25 MG; Start 08/21/16 at 05:00 Aspirin (Halfprin) 81 mg DAILY PO Last administered on 08/25/16 15:55; Admin Dose 81 MG; Start 08/21/16 at 10:30 Atorvastatin Calcium (Lipitor) 80 mg QHS PO Last administered on 08/25/16 21: 04; Admin Dose 80 MG; Start 08/21/16 at 21:00 Clonidine (Catapres) 0.1 mg Q6 PO Last administered on 08/26/16 05:58; Admin Dose 0.1 MG; Start 08/21/16 at 12:00 Diphenhydramine HCl (Benadryl) 50 mg Q6 PRN PO ITCHING; Start 08/21/16 at 10:30 Docusate Sodium (Colace) 100 mg BID PO Last administered on 08/25/16 21:04; Admin Dose 100 MG; Start 08/21/16 at 10:30 Isosorbide Mononitrate (Imdur) 60 mg DAILY PO Last administered on 08/25/16 16 :00; Admin Dose 60 MG; Start 08/21/16 at 10:30 Lactobacillus Acidoph/Bulgaricus (Floranex) 1 tab TID PO Last administered on 21:04; Admin Dose 1 TAB; Start 08/21/16 at 13:00 Lisinopril (Zestril) 10 mg DAILY PO Last administered on 08/25/16 16:00; Admin Dose 10 MG; Start 08/21/16 at 10:30 Lorazepam (Ativan) 2 mg HS PO Last administered on 08/25/16 21:04; Admin Dose 2 MG; Start 08/21/16 at 21:00 Metoprolol Succinate (Toprol Xl) 50 mg BID PO Last administered on 08/25/16 21 :07; Admin Dose 50 MG; Start 08/21/16 at 10:30 Pramipexole (Mirapex) 0.25 mg HS PO Last administered on 08/25/16 21:04; Admin Dose 0.25 MG; Start 08/21/16 at 21:00 Prasugrel (Effient) 10 mg DAILY PO Last administered on 08/24/16 09:12; Admin Dose 10 MG; Start 08/21/16 at 10:30 Diphenhydramine HCl (Benadryl) 50 mg PRN PRN IV GIVE PRIOR TO EACH HD Last administered on 08/26/16 07:09; Admin Dose 50 MG; Start 08/21/16 at 12:00 Lorazepam (Ativan) 1 mg PRN PRN IV PRIOR TO EACH HD Last administered on 07:08; Admin Dose 1 MG; Start 08/21/16 at 12:30 Epoetin Fredy (Epogen (Esrd)) 10,000 units TuThSa@17 SC Last administered on 18:23; Admin Dose 10,000 UNITS; Start 08/21/16 at 17:00 Apixaban (Eliquis) 2.5 mg BID PO Last administered on 08/25/16 21:05; Admin Dose 2.5 MG; Start 08/21/16 at 21:00 Miscellaneous Information 1 ea NOTE XX ; Start 08/21/16 at 19:00 Glucose (Glutose) 15 gm Q15M PRN PO DECREASED GLUCOSE; Start 08/21/16 at 19:00 Glucose (Glutose) 22.5 gm Q15M PRN PO DECREASED GLUCOSE; Start 08/21/16 at 19:00 Dextrose (D50w Syringe) 25 ml Q15M PRN IV DECREASED GLUCOSE; Start 08/21/16 at 19:00 Dextrose (D50w Syringe) 50 ml Q15M PRN IV DECREASED GLUCOSE; Start 08/21/16 at 19:00 Glucagon (Glucagen) 1 mg Q15M PRN IM DECREASED GLUCOSE; Start 08/21/16 at 19:00 Glucose (Glutose) 15 gm Q15M PRN BUCCAL DECREASED GLUCOSE; Start 08/21/16 at 19: 00 Diphenhydramine HCl (Benadryl) 50 mg Q6H PRN IV SLEEP Last administered on 21:20; Admin Dose 50 MG; Start 08/21/16 at 21:00 Hydromorphone HCl (Dilaudid) 2 mg Q3H PRN IV PAIN Last administered on 07:14; Admin Dose 2 MG; Start 08/25/16 at 18:10 DONY HOWARD MD Aug 26, 2016 08:16
[2016-08-26 08:38] LABS: POTASSIUM 4.4 mmol/L (3.5-5.1)
[2016-08-26 08:41] LABS: CREATININE 6.13 mg/dl (0.61-1.24)
[2016-08-26 08:42] LABS: CALCIUM 6.1 mg/dl (8.4-10.2); MAGNESIUM 1.7 mg/dl (1.7-2.5)
[2016-08-26] MEDS: LISINOPRIL 10 MG TAB PO SCH (09:00)
[2016-08-26] MEDS: ISOSORBIDE MONONITRATE(SR)60 MG TAB PO SCH (11:26)
[2016-08-26] MEDS: ASPIRIN (EC) 81 MG TAB PO SCH (11:26)
[2016-08-26] MEDS: LACTOBACILLUS CHEW TAB PO SCH ×3 (11:27→21:00)
[2016-08-26] MEDS: PRASUGREL HYDROCHLORIDE 10 MG TABLET PO SCH (11:27)
[2016-08-26] MEDS: APIXABAN 5 MG TABLET PO SCH ×2 (11:27→21:22)
[2016-08-26] MEDS: DOCUSATE SODIUM 100 MG CAP PO SCH ×2 (11:27→21:21)
[2016-08-26] MEDS: METOPROLOL (XL) 50 MG TAB PO SCH ×2 (11:28→21:22)
[2016-08-26] MEDS: PATIROMER CALCIUM SORBITEX 16.8 GM PKT PO SCH (12:00)
--- NOTE | 2016-08-26 13:54 | PN ---
Date/Time of Note Date/Time of Note DATE: 08/26/16 TIME: 13:48 Assessment/Plan VTE Prophylaxis VTE Prophylaxis Intervention: SCD's Lines/Catheters IV Catheter Type (from [facility] Laci Cath Urinary Cath still in place: No Assessment/Plan Chief Complaint/Hosp Course Assessment/Plan - Chest pain in patient with coronary artery disease and history of stent placement. Troponin is negative 3. Dr. Stephen is following in cardiology consultation. S/P LHC, LAD PORCELAIN ENAMEL SPRAYER distally at the edge of previous stent. Successful LAD PORCELAIN ENAMEL SPRAYER with PCI. S/p Successful Right SFA and pop DCB with Zilver PTX stent placement by Dr Stephen on 08/25. Continue aspirin and Effient. - End-stage renal disease, hemodialysis dependent. Dr. Hubbard is following in nephrology consultation. - Diabetes mellitus type 1. Continue insulin management with insulin pump. Dr. Haddad is following an endocrinology consultation - Peripheral arterial disease, status post vascular interventions at previous admission. Continued on Eliquis. Dr. Byrnes is following in vascular surgery consultation. - Anemia of chronic disease, continue Epogen. Further recommendations based on clinical course. Plan of care discussed with Dr. Rosales. Problems: Subjective 24 Hr Interval Summary Free Text/Dictation Patient denies any chest pain, patient has episode of hypoglycemia denies any dizziness or denies weakness, patient is sitting in bed eating lunch. Exam/Review of Systems Vital Signs Vitals Vital Signs Date Time Temp Pulse Resp B/P Pulse Ox O2 Delivery O2 Flow Rate FiO2 08/26/16 11:46 98.8 76 17 141/66 96 08/25/16 10:55 Room Air Intake and Output 08/25/16 08/25/16 08/26/16 15:00 23:00 07:00 Intake Total 500 ml 600 ml Output Total 3400 ml 300 ml Balance -2900 ml 300 ml Exam GENERAL: Well-developed, well-nourished male, currently appears pale, awake, alert. HEENT: The patient has right eye prosthesis. Left pupil is equal, round, reactive to light and accommodation. NECK: Supple. No cervical lymphadenopathy, no thyromegaly. CHEST: Lungs clear bilaterally. There are no rhonchi, wheezes, rales noted. CARDIOVASCULAR: Normal S1, S2. No murmurs, gallops, clicks, rubs noted. ABDOMEN: Flat, soft, nondistended. The patient has generalized tenderness to epigastric tenderness on palpation. No guarding. EXTREMITIES: No edema, clubbing, cyanosis. Left upper extremity AV graft with a palpable thrill and audible bruit. SKIN: No rash, petechiae noted. NEUROLOGIC: The patient is awake, alert, and oriented x3. Results Result Diagram: 08/25/16 0840 08/26/16 0730 Results 24 hrs Laboratory Tests Test 08/25/16 16:37 08/25/16 21:12 08/26/16 07:30 08/26/16 12:05 Bedside Glucose 175 151 43 *L Anion Gap 20 H Blood Urea Nitrogen 47 #H Calcium Level 6.1 L Carbon Dioxide Level 25 Chloride Level 97 Creatinine 6.13 H Glucose Level 69 #L Magnesium Level 1.7 Potassium Level 4.4 Sodium Level 138 Medications Medications Current Medications Ondansetron HCl (Zofran Inj) 4 mg Q6H PRN IV NAUSEA AND/OR VOMITING; Start 08/21 at 05:00 Diphenhydramine HCl (Benadryl) 25 mg Q6H PRN IV ITCHING Last administered on 13:02; Admin Dose 25 MG; Start 08/21/16 at 05:00 Aspirin (Halfprin) 81 mg DAILY PO Last administered on 08/26/16 11:26; Admin Dose 81 MG; Start 08/21/16 at 10:30 Atorvastatin Calcium (Lipitor) 80 mg QHS PO Last administered on 08/25/16 21: 04; Admin Dose 80 MG; Start 08/21/16 at 21:00 Clonidine (Catapres) 0.1 mg Q6 PO Last administered on 08/26/16 05:58; Admin Dose 0.1 MG; Start 08/21/16 at 12:00 Diphenhydramine HCl (Benadryl) 50 mg Q6 PRN PO ITCHING; Start 08/21/16 at 10:30 Docusate Sodium (Colace) 100 mg BID PO Last administered on 08/26/16 11:27; Admin Dose 100 MG; Start 08/21/16 at 10:30 Isosorbide Mononitrate (Imdur) 60 mg DAILY PO Last administered on 08/26/16 11 :26; Admin Dose 60 MG; Start 08/21/16 at 10:30 Lactobacillus Acidoph/Bulgaricus (Floranex) 1 tab TID PO Last administered on 11:27; Admin Dose 1 TAB; Start 08/21/16 at 13:00 Lisinopril (Zestril) 10 mg DAILY PO Last administered on 08/25/16 16:00; Admin Dose 10 MG; Start 08/21/16 at 10:30 Lorazepam (Ativan) 2 mg HS PO Last administered on 08/25/16 21:04; Admin Dose 2 MG; Start 08/21/16 at 21:00 Metoprolol Succinate (Toprol Xl) 50 mg BID PO Last administered on 08/26/16 11 :28; Admin Dose 50 MG; Start 08/21/16 at 10:30 Pramipexole (Mirapex) 0.25 mg HS PO Last administered on 08/25/16 21:04; Admin Dose 0.25 MG; Start 08/21/16 at 21:00 Prasugrel (Effient) 10 mg DAILY PO Last administered on 08/26/16 11:27; Admin Dose 10 MG; Start 08/21/16 at 10:30 Diphenhydramine HCl (Benadryl) 50 mg PRN PRN IV GIVE PRIOR TO EACH HD Last administered on 08/26/16 07:09; Admin Dose 50 MG; Start 08/21/16 at 12:00 Lorazepam (Ativan) 1 mg PRN PRN IV PRIOR TO EACH HD Last administered on 07:08; Admin Dose 1 MG; Start 08/21/16 at 12:30 Epoetin Fredy (Epogen (Esrd)) 10,000 units TuThSa@17 SC Last administered on 18:23; Admin Dose 10,000 UNITS; Start 08/21/16 at 17:00 Apixaban (Eliquis) 2.5 mg BID PO Last administered on 08/26/16 11:27; Admin Dose 2.5 MG; Start 08/21/16 at 21:00 Miscellaneous Information 1 ea NOTE XX ; Start 08/21/16 at 19:00 Glucose (Glutose) 15 gm Q15M PRN PO DECREASED GLUCOSE; Start 08/21/16 at 19:00 Glucose (Glutose) 22.5 gm Q15M PRN PO DECREASED GLUCOSE; Start 08/21/16 at 19:00 Dextrose (D50w Syringe) 25 ml Q15M PRN IV DECREASED GLUCOSE; Start 08/21/16 at 19:00 Dextrose (D50w Syringe) 50 ml Q15M PRN IV DECREASED GLUCOSE; Start 08/21/16 at 19:00 Glucagon (Glucagen) 1 mg Q15M PRN IM DECREASED GLUCOSE; Start 08/21/16 at 19:00 Glucose (Glutose) 15 gm Q15M PRN BUCCAL DECREASED GLUCOSE; Start 08/21/16 at 19: 00 Diphenhydramine HCl (Benadryl) 50 mg Q6H PRN IV SLEEP Last administered on 21:20; Admin Dose 50 MG; Start 08/21/16 at 21:00 Hydromorphone HCl (Dilaudid) 2 mg Q3H PRN IV PAIN Last administered on 11:28; Admin Dose 2 MG; Start 08/25/16 at 18:10 ANGELINA CASTREJON Aug 26, 2016 13:54
[2016-08-26] MEDS: EPOETIN 10000 UNITS/1 ML INJ (ESRD) SC SCH (17:00)
[2016-08-26] MEDS ORDERED: HYDROmorphONE 2 MG/ML SYG IV STA (17:38)
--- NOTE | 2016-08-26 18:20 | CONS ---
Date/Time of Note Date/Time of Note DATE: 08/26/16 TIME: 18:16 Consult Date/Type/Reason Admit Date/Time Aug 21, 2016 at 03:32 Initial Consult Date 08/21/16 Type of Consultation: renal Ordering Provider: WILMER RODRIGUEZ MD Objective Vital Signs Date Time Temp Pulse Resp B/P Pulse Ox O2 Delivery O2 Flow Rate FiO2 08/26/16 17:13 81 08/26/16 16:10 98.3 17 119/62 94 08/25/16 10:55 Room Air Intake and Output 08/25/16 08/25/16 08/26/16 15:00 23:00 07:00 Intake Total 500 ml 600 ml Output Total 3400 ml 300 ml Balance -2900 ml 300 ml Results/Medications Result Diagram: 08/25/16 0840 08/26/16 0730 Results 24 hrs Laboratory Tests Test 08/25/16 21:12 08/26/16 07:30 08/26/16 12:05 08/26/16 14:03 Bedside Glucose 151 43 *L 105 Anion Gap 20 H Blood Urea Nitrogen 47 #H Calcium Level 6.1 L Carbon Dioxide Level 25 Chloride Level 97 Creatinine 6.13 H Glucose Level 69 #L Magnesium Level 1.7 Potassium Level 4.4 Sodium Level 138 Medications Current Medications Ondansetron HCl (Zofran Inj) 4 mg Q6H PRN IV NAUSEA AND/OR VOMITING; Start 08/21 at 05:00 Diphenhydramine HCl (Benadryl) 25 mg Q6H PRN IV ITCHING Last administered on 13:02; Admin Dose 25 MG; Start 08/21/16 at 05:00 Aspirin (Halfprin) 81 mg DAILY PO Last administered on 08/26/16 11:26; Admin Dose 81 MG; Start 08/21/16 at 10:30 Atorvastatin Calcium (Lipitor) 80 mg QHS PO Last administered on 08/25/16 21: 04; Admin Dose 80 MG; Start 08/21/16 at 21:00 Clonidine (Catapres) 0.1 mg Q6 PO Last administered on 08/26/16 05:58; Admin Dose 0.1 MG; Start 08/21/16 at 12:00 Diphenhydramine HCl (Benadryl) 50 mg Q6 PRN PO ITCHING; Start 08/21/16 at 10:30 Docusate Sodium (Colace) 100 mg BID PO Last administered on 08/26/16 11:27; Admin Dose 100 MG; Start 08/21/16 at 10:30 Isosorbide Mononitrate (Imdur) 60 mg DAILY PO Last administered on 08/26/16 11 :26; Admin Dose 60 MG; Start 08/21/16 at 10:30 Lactobacillus Acidoph/Bulgaricus (Floranex) 1 tab TID PO Last administered on 11:27; Admin Dose 1 TAB; Start 08/21/16 at 13:00 Lisinopril (Zestril) 10 mg DAILY PO Last administered on 08/25/16 16:00; Admin Dose 10 MG; Start 08/21/16 at 10:30 Lorazepam (Ativan) 2 mg HS PO Last administered on 08/25/16 21:04; Admin Dose 2 MG; Start 08/21/16 at 21:00 Metoprolol Succinate (Toprol Xl) 50 mg BID PO Last administered on 08/26/16 11 :28; Admin Dose 50 MG; Start 08/21/16 at 10:30 Pramipexole (Mirapex) 0.25 mg HS PO Last administered on 08/25/16 21:04; Admin Dose 0.25 MG; Start 08/21/16 at 21:00 Prasugrel (Effient) 10 mg DAILY PO Last administered on 08/26/16 11:27; Admin Dose 10 MG; Start 08/21/16 at 10:30 Diphenhydramine HCl (Benadryl) 50 mg PRN PRN IV GIVE PRIOR TO EACH HD Last administered on 08/26/16 07:09; Admin Dose 50 MG; Start 08/21/16 at 12:00 Lorazepam (Ativan) 1 mg PRN PRN IV PRIOR TO EACH HD Last administered on 07:08; Admin Dose 1 MG; Start 08/21/16 at 12:30 Epoetin Fredy (Epogen (Esrd)) 10,000 units TuThSa@17 SC Last administered on 18:23; Admin Dose 10,000 UNITS; Start 08/21/16 at 17:00 Apixaban (Eliquis) 2.5 mg BID PO Last administered on 08/26/16 11:27; Admin Dose 2.5 MG; Start 08/21/16 at 21:00 Miscellaneous Information 1 ea NOTE XX ; Start 08/21/16 at 19:00 Glucose (Glutose) 15 gm Q15M PRN PO DECREASED GLUCOSE; Start 08/21/16 at 19:00 Glucose (Glutose) 22.5 gm Q15M PRN PO DECREASED GLUCOSE; Start 08/21/16 at 19:00 Dextrose (D50w Syringe) 25 ml Q15M PRN IV DECREASED GLUCOSE; Start 08/21/16 at 19:00 Dextrose (D50w Syringe) 50 ml Q15M PRN IV DECREASED GLUCOSE; Start 08/21/16 at 19:00 Glucagon (Glucagen) 1 mg Q15M PRN IM DECREASED GLUCOSE; Start 08/21/16 at 19:00 Glucose (Glutose) 15 gm Q15M PRN BUCCAL DECREASED GLUCOSE; Start 08/21/16 at 19: 00 Diphenhydramine HCl (Benadryl) 50 mg Q6H PRN IV SLEEP Last administered on 21:20; Admin Dose 50 MG; Start 08/21/16 at 21:00 Hydromorphone HCl (Dilaudid) 2 mg Q3H PRN IV PAIN Last administered on 14:44; Admin Dose 2 MG; Start 08/25/16 at 18:10 Assessment/Plan Chief Complaint/Hosp Course Patient is my patient from out pt, He has last DE sept with LAD ELECTRIC INSTALLER s/p PCi by me at [facility]. He has ESRD and PAD with plan to open his Right SFA out pt.came in with CP, stable angina. trop neg x 2. Echo with normal wall motion and normal function. EKG non ischemic. Problems: (1) Paresthesia (2) Swelling (3) Headache (4) Sinusitis (5) Paresthesias (6) Leg cramp (7) Presence of suprapubic catheter (8) Obstruction of suprapubic catheter (9) Complication of Foster catheter (10) Acute weakness (11) Moderate nausea (12) Hypocalcemia (13) UTI (urinary tract infection) (14) Hypocalcemia (15) Diabetic ketoacidosis (16) Dialysis patient (17) Genitourinary symptoms (18) Hyperkalemia (19) Constipation (20) Hyperkalemia, diminished renal excretion (21) Abdominal pain (22) Retention of urine (23) Diarrhea (24) Nausea (25) Vomiting (26) Diabetes mellitus type 1, controlled, with complications (27) Chronic pain (28) 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, with long- term current use of insulin (29) Chronic renal insufficiency (30) Peripheral vascular disease (31) Diabetes mellitus type 1 with complications (32) Scrotal erythema (33) Chest pain (34) HTN (hypertension) (35) DM (diabetes mellitus) type 1 with ketoacidosis (36) CKD (chronic kidney disease) stage 5, GFR less than 15 ml/min (37) Type 1 diabetes mellitus with diabetic nephropathy (38) End stage renal failure on dialysis (39) Shunt malfunction (40) Ischemic rest pain of lower extremity (41) Claudication in peripheral vascular disease (42) PAD (peripheral artery disease) Additional Assessment/Plan CAD with DE PAD with resting leg pain patient under went [facility] found to have ELECTRIC INSTALLER of LAD successful PCi of mid-distal Complex LAD ELECTRIC INSTALLER with [id number] NOHELIA stent Resting ischmeic leg pain with lower extremity angio. had Mid SFA stenosis which was severe in nature and we did pull back gradient of his Mid SFA which was >25mmHg which is severe hemodynanmically followed by that successful atherecomty and drug coated balloon with Zilver PTX drug eluting stent was placed. Good result for his CAD and PAD with symptoms relief Pt on med mx plan for d/c stable cardiac and vascular vise. F/U out pt for cardiac and endovascular. CYNDIE GARCIA MD Aug 26, 2016 18:19
--- NOTE | 2016-08-26 19:05 | SP ---
DATE OF PROCEDURE: 08/25/2016 INDICATIONS FOR THE PROCEDURE: 1. Unstable angina. 2. Coronary artery disease. PROCEDURES PERFORMED: 1. Left and right selective coronary angiography. 2. Left ventricular pressure measurement with left heart catheterization. 3. Complex successful PTCA/stenting of distal LAD YARD INSPECTOR with 2.5 x 28 mm drug-eluting stent. 4. Fluoroscopy supervision. 5. Supervised moderate sedation. PROCEDURE DETAILS: The patient is a 51-year-old male very well known to me for cardiovascular statu s who had LAD YARD INSPECTOR in the past, status post PCI of the mid LAD by me at [facility], who came in on last Thursday to the hospital complaining of bilateral leg pain as well as chest pain and symptoms for unstable angina with a history of coronary artery disease. Due to his typical cardiac symptoms , the patient was brought to cardiac catheterization lab. The patient has been explained in detail regarding indication of the procedure as well as complication of the procedure. The patient agrees for the procedure and complication. The patient was brought into cardiac catheterization lab and pr epped and draped in supine position. Anesthesia was present for supervised sedation as well. The p atient had bilateral AV fistulas. The radial artery was not for use as well as patient had a lower extremity intervention complication in the right groin, so unable to use the right groin for the acc ess. The only access available was left groin. Left groin was accessed with 6-Anguillan sheath and en tered into the groin. Followed by that, started diagnostics with a diagnostic catheter, engaging th e left and right coronary artery respectively as well as right catheter was entered into left ventri valeria. LVEDP was measured as well. After diagnostic angiography, patient found to have in-stent rest enosis to distal part of the stent 99% as well as 100% occluded distal LAD. Followed by that, we de cided to go ahead and intervene on the patient. IV heparin was used as an anticoagulation. EBU 3.5 guiding catheter was engaged from the groin over 0.035 wire into left main, and successful wiring o f LAD was performed with a Runthrough wire. Initial predilatation of the lesion was done with a 2.0 x 12 mm predilatation balloon at 8 atmospheres, but there was no good flow seen in the distal LAD, probably due to clot burden. At this time we took a Corsair catheter, entered over the 0.014 wire p laced into distal area, and 0.014 wire was taken out, and injection was performed from the Corsair v essel to confirm the position into intra-arterial. Followed by intra-arterial confirmation of the a rtery, we took a longer 2.0 x 20 mm balloon and inflated into the artery and found to have WOODROW 2 fl ow into the LAD after that. Followed by that, successful direct stenting of 2.25 x 28 mm drug-eluti ng stent was performed into mid distal LAD with good angiographic result with WOODROW 3 flow at the end of the procedure. The patient also had mid LAD prior to the stent 70% stenosis which was directly stented with 3.5 x 12 mm drug-eluting stent at 16 atmospheres. All the catheters and wires had been removed over the wire, and procedure was finished without any complication. CORONARY FINDINGS: 1. Left main: Mild diffuse disease. 2. Left anterior descending artery: Proximal mild diffuse disease followed by mid LAD, at the bend of the diagonal coming out has 70% significant stenosis. Followed by that, mid LAD stent was paten t all throughout the stent length except the distal area of the stent had 99% stenosis followed by 1 00% occluded distal LAD. 3. Left circumflex artery: Mild diffuse disease. 4. Right coronary artery: Mild diffuse disease. LEFT VENTRICULAR FINDINGS: LVEDP was 13 mmHg. No aortic stenosis. CONCLUSION: 1. A 100% occluded mid distal left anterior descending with thrombotic lesion. 2. Successful complex percutaneous coronary intervention of left anterior descending chronic total occlusion with successful stenting with 2.5 x 28 mm drug-eluting stent. 3. There is 70% mid left anterior descending stenosis. Successful percutaneous coronary interventi on was done with 3.5 x 12 mm drug-eluting stent. RECOMMENDATIONS: 1. Continue Effient and aspirin. 2. Continue aggressive medical management. 3. Outpatient followup in my office for his cardiac and vascular condition. Case discussed with Dr. Rosales, primary care. Dictated By: CYNDIE ROSENBAUM/SERGO Conf#: [id number] DID#: [id number]
--- NOTE | 2016-08-26 19:51 | SP ---
DATE OF PROCEDURE: INDICATIONS FOR THE PROCEDURE: 1. Resting leg pain. 2. Peripheral vascular disease. 3. Lifestyle-limiting claudication. 4. Endarterectomy with postsurgical status. PROCEDURES: 1. Abdominal aortogram with runoff. 2. Bilateral lower extremity angiography. 3. Third order lower extremity angiography. 4. Hemodynamic gradient measurements. 5. Successful atherectomy with PROCUREMENT COST COORDINATOR with drug-coated balloon with a stent of right superficial femor al artery. 6. Successful drug-coated balloon, PROCUREMENT COST COORDINATOR of right popliteal artery. INDICATIONS FOR PROCEDURE DETAILS: The patient is 51-year-old male with past medical history of hyp ertension, dyslipidemia on dialysis, coronary artery disease, PR, severe peripheral vascular disease with resting bilateral lower extremity pain who underwent prior emergent procedure by Vascular Surg eduardo, who came in initially from halfway with resting leg pain in right lower extremity as well as complaint of chest pain. Lower extremity angiography was performed prior which showed significan t stenosis of mid SFA as well as the popliteal artery, but ultrasound velocity was not justifying hi s symptoms. The plan today was to undergo lower extremity angiography to look at his surgical site for evaluation of any postsurgical complication as well as a gradient measurement of his SFA stenosi s. The patient has been explained in detail regarding procedure and procedure complications. Due t o the SFA stenosis, I would not consider primary pedal access on this patient at this time, so we de cided to undergo a left groin access because of the only access left at this time. The patient agre ed for the procedure as well as the complications of the procedure. After informed consent, a 6-[facility] sheath was introduced into the left groin, followed by that with an Omniflush catheter with up a nd over access with runoff to abdominal angiography, and initial attempt was done with just to take left lower extremity angiography to confirm the patency of his stent. Followed by that, up and over access was performed via 0.035 [place] [employer] wire over the Omniflush catheter, and selective miguel ography was performed to the right lower extremity. Followed by that, the gradient measurement was performed into the SFA for popliteal stenosis, which was 25 mmHg and more, which is suggestive of th e significant peripheral vascular gradient. After that, we decided to do an atherectomy, so the wir e was switched to 0.014 Viper wire, and successful 1.5 CSI atherectomy tala was performed into the m id SFA area. Popliteal area had a stenosis, which we decided to use drug-coated balloon. After the atherectomy, successful 5.0 x 100 drug-coated balloon was performed in the popliteal area, and succ essful 6.0 x 100 drug-coated balloon was performed in the mid SFA area. Followed by that, successfu l Zilver PTX stent was done, 6.0 x 120 mm, and followed by that, another drug-coated balloon post di latation was performed on a Zilver PTX to confirm the good patency rate on the patient. After that, final angiographic picture with a good angiographic result of the mid SFA stenosis as well as popli teal stenosis with good flow and 3-vessel runoff in the leg. Procedure was finished without any com plication, and groin was closed with a Perclose suture without any complication. PERIPHERAL FINDINGS: 1. Abdominal aorta: Mild diffuse disease. The bilateral iliacs are patent. 2. Left lower extremity angiography with a patent stent into SFA as well as 3-vessel runoff below t he knee. 3. Right SFA: Proximal 50% stenosis followed by mid segment has long segment of 50% to 70% stenosi s with 25 mm gradient. Distal SFA to popliteal has another 70% stenosis followed by distal runoff o f 3 vessels. CONCLUSION: Severe mid superficial femoral artery stenosis with successful atherectomy, drug-coated balloon percutaneous transluminal angioplasty and Zilver PTX stent placement with good angiographic result. Continue exercise program. Continue ambulation. Continue aggressive medical management. The patie nt is to follow up with wa outpatient. Continue Effient and aspirin as dual antiplatelet therapy. Cholesterol aggressive management and outpatient followup. Dictated By: CYNDIE GARCIA MD ML/NTS Conf#: [id number] DID#: [id number]
[2016-08-26] MEDS: LORAZEPAM 1 MG TAB PO SCH (21:21)
[2016-08-26] MEDS: PRAMIPEXOLE 0.25 MG TAB PO SCH (21:23)
[2016-08-26] MEDS: ATORVASTATIN 80 MG TAB PO SCH (21:23)
[2016-08-27] VITALS (11 sets, daily range): BP systolic 147–178; BP diastolic 70–93; PULSE 71–89; RESP 18–19
[2016-08-27] MEDS: DIPHENHYDRAMINE 50 MG INJ IV PRN ×4 (03:41→23:18)
[2016-08-27] MEDS: HYDROmorphONE 2 MG/ML SYG IV PRN ×6 (03:41→23:18)
[2016-08-27] MEDS: ACCUCHECK XX SCH ×7 (07:51→20:34)
--- NOTE | 2016-08-27 08:03 | CONS ---
Date/Time of Note Date/Time of Note DATE: 08/27/16 TIME: 08:00 Assessment/Plan Assessment/Plan Chief Complaint/Hosp Course 1. ESRD , he is on dialysis T T S . He is due for dialysis tomorrow and I will order a hemodialysis treatment for tomorrow. 2. he was admitted for chest pain . He is now , two days post op a [facility] with coronary artery stent placement in LAD and R SFA . 3. HTN 4. Type 1 DM 5. PAD 6. Hyperkalemia , he is on Velt[place] Problems: Consultation Date/Type/Reason Admit Date/Time Aug 21, 2016 at 03:32 Initial Consult Date 08/21/16 Type of Consultation: renal Referring Provider: WILMER RODRIGUEZ MD 24 HR Interval Summary Free Text/Dictation He is resting in bed he has no complaints. Constitutional: improved, no complaints Exam/Review of Systems Vital Signs Vitals Vital Signs Date Time Temp Pulse Resp B/P Pulse Ox O2 Delivery O2 Flow Rate FiO2 08/27/16 04:22 99.3 87 18 149/82 94 08/25/16 10:55 Room Air Intake and Output 08/26/16 08/26/16 08/27/16 15:00 23:00 07:00 Intake Total 500 ml 700 ml 600 ml Output Total 4000 ml 100 ml 400 ml Balance -3500 ml 600 ml 200 ml Exam Constitutional: alert, oriented, well developed Respiratory: clear to auscultation, normal air movement Cardiovascular: regular rate and rhythm Musculoskeletal: nl extremities to inspection Results Result Diagram: 08/25/16 0840 08/26/16 0730 Results 24 hrs Laboratory Tests Test 08/26/16 12:05 08/26/16 14:03 08/26/16 18:51 08/26/16 20:18 Bedside Glucose 43 *L 105 186 301 H Test 08/26/16 21:19 08/27/16 07:49 Bedside Glucose 281 H 189 Medications Medications Current Medications Ondansetron HCl (Zofran Inj) 4 mg Q6H PRN IV NAUSEA AND/OR VOMITING; Start 08/21 at 05:00 Diphenhydramine HCl (Benadryl) 25 mg Q6H PRN IV ITCHING Last administered on t 03:41; Admin Dose 25 MG; Start 08/21/16 at 05:00 Aspirin (Halfprin) 81 mg DAILY PO Last administered on 08/26/16 11:26; Admin Dose 81 MG; Start 08/21/16 at 10:30 Atorvastatin Calcium (Lipitor) 80 mg QHS PO Last administered on 08/26/16 21: 23; Admin Dose 80 MG; Start 08/21/16 at 21:00 Clonidine (Catapres) 0.1 mg Q6 PO Last administered on 08/27/16 05:50; Admin Dose 0.1 MG; Start 08/21/16 at 12:00 Diphenhydramine HCl (Benadryl) 50 mg Q6 PRN PO ITCHING; Start 08/21/16 at 10:30 Docusate Sodium (Colace) 100 mg BID PO Last administered on 08/26/16 21:21; Admin Dose 100 MG; Start 08/21/16 at 10:30 Isosorbide Mononitrate (Imdur) 60 mg DAILY PO Last administered on 08/26/16 11 :26; Admin Dose 60 MG; Start 08/21/16 at 10:30 Lactobacillus Acidoph/Bulgaricus (Floranex) 1 tab TID PO Last administered on 11:27; Admin Dose 1 TAB; Start 08/21/16 at 13:00 Lisinopril (Zestril) 10 mg DAILY PO Last administered on 08/25/16 16:00; Admin Dose 10 MG; Start 08/21/16 at 10:30 Lorazepam (Ativan) 2 mg HS PO Last administered on 08/26/16 21:21; Admin Dose 2 MG; Start 08/21/16 at 21:00 Metoprolol Succinate (Toprol Xl) 50 mg BID PO Last administered on 08/26/16 21 :22; Admin Dose 50 MG; Start 08/21/16 at 10:30 Pramipexole (Mirapex) 0.25 mg HS PO Last administered on 08/26/16 21:23; Admin Dose 0.25 MG; Start 08/21/16 at 21:00 Prasugrel (Effient) 10 mg DAILY PO Last administered on 08/26/16 11:27; Admin Dose 10 MG; Start 08/21/16 at 10:30 Diphenhydramine HCl (Benadryl) 50 mg PRN PRN IV GIVE PRIOR TO EACH HD Last administered on 08/26/16 07:09; Admin Dose 50 MG; Start 08/21/16 at 12:00 Lorazepam (Ativan) 1 mg PRN PRN IV PRIOR TO EACH HD Last administered on 07:08; Admin Dose 1 MG; Start 08/21/16 at 12:30 Epoetin Fredy (Epogen (Esrd)) 10,000 units TuThSa@17 SC Last administered on 18:23; Admin Dose 10,000 UNITS; Start 08/21/16 at 17:00 Apixaban (Eliquis) 2.5 mg BID PO Last administered on 08/26/16 21:22; Admin Dose 2.5 MG; Start 08/21/16 at 21:00 Miscellaneous Information 1 ea NOTE XX ; Start 08/21/16 at 19:00 Glucose (Glutose) 15 gm Q15M PRN PO DECREASED GLUCOSE; Start 08/21/16 at 19:00 Glucose (Glutose) 22.5 gm Q15M PRN PO DECREASED GLUCOSE; Start 08/21/16 at 19:00 Dextrose (D50w Syringe) 25 ml Q15M PRN IV DECREASED GLUCOSE; Start 08/21/16 at 19:00 Dextrose (D50w Syringe) 50 ml Q15M PRN IV DECREASED GLUCOSE; Start 08/21/16 at 19:00 Glucagon (Glucagen) 1 mg Q15M PRN IM DECREASED GLUCOSE; Start 08/21/16 at 19:00 Glucose (Glutose) 15 gm Q15M PRN BUCCAL DECREASED GLUCOSE; Start 08/21/16 at 19: 00 Diphenhydramine HCl (Benadryl) 50 mg Q6H PRN IV SLEEP Last administered on 21:20; Admin Dose 50 MG; Start 08/21/16 at 21:00 Hydromorphone HCl (Dilaudid) 2 mg Q3H PRN IV PAIN Last administered on 03:41; Admin Dose 2 MG; Start 08/25/16 at 18:10 DONY HOWARD MD Aug 27, 2016 08:03
[2016-08-27] MEDS: [UNRECOGNIZED DRUG - OTHER] SC SCH ×4 (08:10→20:33)
[2016-08-27 08:15] LABS: ADD SCAN DIFF NO
[2016-08-27 08:20] LABS: BASOPHILS % 0.8 % (0.0-2.0); EOSINOPHILS # 0.6 10^3/ul (0.0-0.5); EOSINOPHILS % 12.6 % (0.0-7.0); HEMATOCRIT 26.7 % (42.0-52.0); HEMOGLOBIN 8.4 g/dl (14.0-18.0); LYMPHOCYTES # 0.7 10^3/ul (0.8-2.9); MEAN CORPUSCULAR HEMOGLOBIN 30.3 pg (29.0-33.0); MEAN CORPUSCULAR HGB CONC 31.5 g/dl (32.0-37.0); MEAN CORPUSCULAR VOLUME 96.4 fl (82.0-101.0); MEAN PLATELET VOLUME 11.2 fl (7.4-10.4); MONOCYTE # 0.7 10^3/ul (0.3-0.9); NEUTROPHIL # 2.8 10^3/ul (1.6-7.5); NEUTROPHILS % 57.4 % (39.0-77.0); PLATELET COUNT 161 10^3/UL (140-415); RED BLOOD COUNT 2.77 10^6/ul (4.70-6.10); RED CELL DISTRIBUTION WIDTH 15.2 % (11.5-14.5); WHITE BLOOD COUNT 4.9 10^3/ul (4.8-10.8)
[2016-08-27 08:57] LABS: CREATININE 6.06 mg/dl (0.61-1.24)
[2016-08-27 08:58] LABS: CALCIUM 6.7 mg/dl (8.4-10.2)
[2016-08-27] MEDS: ISOSORBIDE MONONITRATE(SR)60 MG TAB PO SCH ×2 (09:00→18:41)
[2016-08-27] MEDS: LISINOPRIL 10 MG TAB PO SCH ×2 (09:00→18:41)
[2016-08-27] MEDS: METOPROLOL (XL) 50 MG TAB PO SCH ×2 (09:00→20:23)
[2016-08-27] MEDS: PRASUGREL HYDROCHLORIDE 10 MG TABLET PO SCH (09:51)
[2016-08-27] MEDS: CALCIUM ACETATE 667 MG CAP PO SCH ×3 (09:51→18:42)
[2016-08-27] MEDS: LACTOBACILLUS CHEW TAB PO SCH ×3 (09:52→20:21)
[2016-08-27] MEDS: ASPIRIN (EC) 81 MG TAB PO SCH (09:52)
[2016-08-27] MEDS: SEVELAMER 800 MG TAB PO SCH ×3 (09:52→18:42)
[2016-08-27] MEDS: APIXABAN 5 MG TABLET PO SCH ×2 (09:52→20:19)
[2016-08-27] MEDS: DOCUSATE SODIUM 100 MG CAP PO SCH ×2 (09:52→20:19)
[2016-08-27] MEDS: PATIROMER CALCIUM SORBITEX 16.8 GM PKT PO SCH (12:59)
[2016-08-27] MEDS: GABAPENTIN 300 MG CAP PO SCH ×2 (15:22→20:19)
--- NOTE | 2016-08-27 18:52 | PN ---
Date/Time of Note Date/Time of Note DATE: 08/27/16 TIME: 18:50 Assessment/Plan VTE Prophylaxis VTE Prophylaxis Intervention: SCD's Lines/Catheters IV [facility]ter Type (from [facility]): Portacath Urinary Cath still in place: No Assessment/Plan Chief Complaint/Hosp Course Assessment/Plan - Chest pain in patient with coronary artery disease and history of stent placement. Dr. Stephen is following in cardiology consultation. S/P LHC, LAD PERSONNEL RECORDS CLERK distally at the edge of previous stent. Successful LAD PERSONNEL RECORDS CLERK with PCI. S/p Successful Right SFA and pop DCB with Zilver PTX stent placement by Dr Stephen on . Continue aspirin and Effient. - End-stage renal disease, hemodialysis dependent. Dr. Hubbard is following in nephrology consultation. - Diabetes mellitus type 1. Continue insulin management with insulin pump. Dr. Haddad is following an endocrinology consultation - Peripheral arterial disease, status post vascular interventions at previous admission. Continued on Eliquis. Dr. Byrnes is following in vascular surgery consultation. - Anemia of chronic disease, continue Epogen. Further recommendations based on clinical course. Plan of care discussed with Dr. Rosales. Problems: Subjective 24 Hr Interval Summary Free Text/Dictation Patient is complaining of flulike symptoms, generalized weakness, denies any chest pain denies shortness of breath. Blood sugar is well controlled. Pending hemodialysis tomorrow. Exam/Review of Systems Vital Signs Vitals Vital Signs Date Time Temp Pulse Resp B/P Pulse Ox O2 Delivery O2 Flow Rate FiO2 08/27/16 16:57 73 08/27/16 15:54 98.6 18 148/70 98 08/25/16 10:55 Room Air Intake and Output 08/26/16 08/26/16 08/27/16 14:59 22:59 06:59 Intake Total 500 ml 700 ml 600 ml Output Total 4000 ml 100 ml 400 ml Balance -3500 ml 600 ml 200 ml Exam GENERAL: Well-developed, well-nourished male, currently appears pale, awake, alert. HEENT: The patient has right eye prosthesis. Left pupil is equal, round, reactive to light and accommodation. NECK: Supple. No cervical lymphadenopathy, no thyromegaly. CHEST: Lungs clear bilaterally. There are no rhonchi, wheezes, rales noted. CARDIOVASCULAR: Normal S1, S2. No murmurs, gallops, clicks, rubs noted. ABDOMEN: Flat, soft, nondistended. The patient has generalized tenderness to epigastric tenderness on palpation. No guarding. EXTREMITIES: No edema, clubbing, cyanosis. Left upper extremity AV graft with a palpable thrill and audible bruit. SKIN: No rash, petechiae noted. NEUROLOGIC: The patient is awake, alert, and oriented x3. Results Result Diagram: 08/27/16 0800 08/27/16 0800 Results 24 hrs Laboratory Tests Test 08/26/16 18:51 08/26/16 20:18 08/26/16 21:19 08/27/16 07:49 Bedside Glucose 186 301 H 281 H 189 Test 08/27/16 08:00 08/27/16 10:47 08/27/16 12:42 08/27/16 15:28 Anion Gap 20 H Basophils # 0.0 Basophils % 0.8 Blood Urea Nitrogen 44 H Calcium Level 6.7 L Carbon Dioxide Level 26 Chloride Level 96 L Creatinine 6.06 H Eosinophils # 0.6 H Eosinophils % 12.6 H Glucose Level 174 # Hematocrit 26.7 L Hemoglobin 8.4 L Lymphocytes # 0.7 L Lymphocytes % 15.0 Mean Corpuscular Hemoglobin 30.3 Mean Corpuscular Hemoglobin Concent 31.5 L Mean Corpuscular Volume 96.4 Mean Platelet Volume 11.2 H Monocytes # 0.7 Monocytes % 14.0 H Neutrophils # 2.8 Neutrophils % 57.4 Nucleated Red Blood Cells # 0.0 Nucleated Red Blood Cells % 0.0 Platelet Count 161 Potassium Level 4.0 Red Blood Count 2.77 L Red Cell Distribution Width 15.2 H Sodium Level 138 White Blood Count 4.9 Bedside Glucose 145 108 212 Test 08/27/16 18:23 Bedside Glucose 130 Medications Medications Current Medications Ondansetron HCl (Zofran Inj) 4 mg Q6H PRN IV NAUSEA AND/OR VOMITING; Start 08/21 at 05:00 Diphenhydramine HCl (Benadryl) 25 mg Q6H PRN IV ITCHING Last administered on 16:36; Admin Dose 25 MG; Start 08/21/16 at 05:00 Aspirin (Halfprin) 81 mg DAILY PO Last administered on 08/27/16 09:52; Admin Dose 81 MG; Start 08/21/16 at 10:30 Atorvastatin Calcium (Lipitor) 80 mg QHS PO Last administered on 08/26/16 21: 23; Admin Dose 80 MG; Start 08/21/16 at 21:00 Clonidine (Catapres) 0.1 mg Q6 PO Last administered on 08/27/16 18:41; Admin Dose 0.1 MG; Start 08/21/16 at 12:00 Diphenhydramine HCl (Benadryl) 50 mg Q6 PRN PO ITCHING; Start 08/21/16 at 10:30 Docusate Sodium (Colace) 100 mg BID PO Last administered on 08/27/16 09:52; Admin Dose 100 MG; Start 08/21/16 at 10:30 Isosorbide Mononitrate (Imdur) 60 mg DAILY PO Last administered on 08/27/16 18 :41; Admin Dose 60 MG; Start 08/21/16 at 10:30 Lactobacillus Acidoph/Bulgaricus (Floranex) 1 tab TID PO Last administered on 12:58; Admin Dose 1 TAB; Start 08/21/16 at 13:00 Lisinopril (Zestril) 10 mg DAILY PO Last administered on 08/27/16 18:41; Admin Dose 10 MG; Start 08/21/16 at 10:30 Lorazepam (Ativan) 2 mg HS PO Last administered on 08/26/16 21:21; Admin Dose 2 MG; Start 08/21/16 at 21:00 Metoprolol Succinate (Toprol Xl) 50 mg BID PO Last administered on 08/26/16 21 :22; Admin Dose 50 MG; Start 08/21/16 at 10:30 Pramipexole (Mirapex) 0.25 mg HS PO Last administered on 08/26/16 21:23; Admin Dose 0.25 MG; Start 08/21/16 at 21:00 Prasugrel (Effient) 10 mg DAILY PO Last administered on 08/27/16 09:51; Admin Dose 10 MG; Start 08/21/16 at 10:30 Diphenhydramine HCl (Benadryl) 50 mg PRN PRN IV GIVE PRIOR TO EACH HD Last administered on 08/26/16 07:09; Admin Dose 50 MG; Start 08/21/16 at 12:00 Lorazepam (Ativan) 1 mg PRN PRN IV PRIOR TO EACH HD Last administered on 07:08; Admin Dose 1 MG; Start 08/21/16 at 12:30 Epoetin Fredy (Epogen (Esrd)) 10,000 units TuThSa@17 SC Last administered on 18:23; Admin Dose 10,000 UNITS; Start 08/21/16 at 17:00 Apixaban (Eliquis) 2.5 mg BID PO Last administered on 08/27/16 09:52; Admin Dose 2.5 MG; Start 08/21/16 at 21:00 Miscellaneous Information 1 ea NOTE XX ; Start 08/21/16 at 19:00 Glucose (Glutose) 15 gm Q15M PRN PO DECREASED GLUCOSE; Start 08/21/16 at 19:00 Glucose (Glutose) 22.5 gm Q15M PRN PO DECREASED GLUCOSE; Start 08/21/16 at 19:00 Dextrose (D50w Syringe) 25 ml Q15M PRN IV DECREASED GLUCOSE; Start 08/21/16 at 19:00 Dextrose (D50w Syringe) 50 ml Q15M PRN IV DECREASED GLUCOSE; Start 08/21/16 at 19:00 Glucagon (Glucagen) 1 mg Q15M PRN IM DECREASED GLUCOSE; Start 08/21/16 at 19:00 Glucose (Glutose) 15 gm Q15M PRN BUCCAL DECREASED GLUCOSE; Start 08/21/16 at 19: 00 Diphenhydramine HCl (Benadryl) 50 mg Q6H PRN IV SLEEP Last administered on 21:20; Admin Dose 50 MG; Start 08/21/16 at 21:00 Hydromorphone HCl (Dilaudid) 2 mg Q3H PRN IV PAIN Last administered on 16:36; Admin Dose 2 MG; Start 08/25/16 at 18:10 Gabapentin (Neurontin) 300 mg BID PO Last administered on 08/27/16 15:22; Admin Dose 300 MG; Start 08/27/16 at 13:30 ANGELINA CASTREJON Aug 27, 2016 18:52
--- NOTE | 2016-08-27 19:11 | RADRPT ---
Vent Rate: 70 bpm RR Interval: 0 msec [place] Interval: 200 msec QRS Duration: 86 msec QT Interval: 464 msec QTC Interval: 501 msec P-R-T [place]: 56 - -14 - 66 degrees Normal sinus rhythm Left atrial enlargement Cannot rule out Anterior infarct , age undetermined Prolonged QT Abnormal ECG Electronically Signed By: Escobar Sanchez [id number]
[2016-08-27] MEDS: PRAMIPEXOLE 0.25 MG TAB PO SCH (20:19)
[2016-08-27] MEDS: LORAZEPAM 1 MG TAB PO SCH (20:21)
[2016-08-27] MEDS: ATORVASTATIN 80 MG TAB PO SCH (20:21)
[2016-08-28] VITALS (21 sets, daily range): BP systolic 125–162; BP diastolic 66–87; PULSE 72–91; RESP 17–20
[2016-08-28] MEDS: HYDROmorphONE 2 MG/ML SYG IV PRN ×7 (02:18→22:28)
[2016-08-28] MEDS: DIPHENHYDRAMINE 50 MG INJ IV PRN ×4 (05:19→22:29)
[2016-08-28] MEDS: [UNRECOGNIZED DRUG - OTHER] SC SCH ×4 (07:30→21:00)
[2016-08-28] MEDS: ACCUCHECK XX SCH ×8 (07:30→21:00)
[2016-08-28 07:40] LABS: POTASSIUM 4.7 mmol/L (3.5-5.1)
[2016-08-28 07:42] LABS: CREATININE 7.49 mg/dl (0.61-1.24)
[2016-08-28 07:43] LABS: CALCIUM 6.3 mg/dl (8.4-10.2); MAGNESIUM 1.6 mg/dl (1.7-2.5)
[2016-08-28] MEDS: LACTOBACILLUS CHEW TAB PO SCH ×3 (08:38→22:29)
[2016-08-28] MEDS: DOCUSATE SODIUM 100 MG CAP PO SCH ×2 (08:39→22:29)
[2016-08-28] MEDS: ASPIRIN (EC) 81 MG TAB PO SCH (08:39)
[2016-08-28] MEDS: APIXABAN 5 MG TABLET PO SCH ×2 (08:39→21:00)
[2016-08-28] MEDS: PRASUGREL HYDROCHLORIDE 10 MG TABLET PO SCH (08:39)
[2016-08-28] MEDS: SEVELAMER 800 MG TAB PO SCH ×3 (08:39→17:53)
[2016-08-28] MEDS: CALCIUM ACETATE 667 MG CAP PO SCH ×3 (08:39→17:53)
[2016-08-28] MEDS: GABAPENTIN 300 MG CAP PO SCH ×2 (08:39→21:00)
[2016-08-28] MEDS: METOPROLOL (XL) 50 MG TAB PO SCH ×2 (08:40→21:00)
[2016-08-28] MEDS: LORAZEPAM 2 MG INJ IV PRN (11:09)
[2016-08-28] MEDS: PATIROMER CALCIUM SORBITEX 16.8 GM PKT PO SCH (12:00)
--- NOTE | 2016-08-28 13:36 | CONS ---
Date/Time of Note Date/Time of Note DATE: 08/28/16 TIME: 13:33 Assessment/Plan Assessment/Plan Chief Complaint/Hosp Course 1. ESRD , he is on dialysis T T S . He is having his hemodialysis treatment now . 2. he was admitted for chest pain . He is now , three days post op a [facility] with coronary artery stent placement in LAD and R SFA . 3. HTN 4. Type 1 DM 5. PAD 6. Hyperkalemia , he is on V[place] Problems: Consultation Date/Type/Reason Admit Date/Time Aug 21, 2016 at 03:32 Initial Consult Date 08/21/16 Type of Consultation: renal Referring Provider: WILMER RODRIGUEZ MD 24 HR Interval Summary Free Text/Dictation He is having hemodialysis treatment now . No complaints . Constitutional: no complaints Exam/Review of Systems Vital Signs Vitals Vital Signs Date Time Temp Pulse Resp B/P Pulse Ox O2 Delivery O2 Flow Rate FiO2 08/28/16 13:00 72 08/28/16 12:15 97.6 18 125/73 94 08/25/16 10:55 Room Air Intake and Output 08/27/16 08/27/16 08/28/16 15:00 23:00 07:00 Intake Total 720 ml 350 ml Balance 720 ml 350 ml Exam Constitutional: alert, oriented Psych: no complaints Respiratory: clear to auscultation, normal air movement Cardiovascular: regular rate and rhythm Musculoskeletal: nl extremities to inspection Results Result Diagram: 08/27/16 0800 08/28/16 0620 Results 24 hrs Laboratory Tests Test 08/27/16 15:28 08/27/16 18:23 08/27/16 20:30 08/28/16 06:20 Bedside Glucose 212 130 138 Anion Gap 24 H Blood Urea Nitrogen 57 H Calcium Level 6.3 L Carbon Dioxide Level 22 Chloride Level 95 L Creatinine 7.49 H Glucose Level 188 Magnesium Level 1.6 L Potassium Level 4.7 Sodium Level 136 Test 08/28/16 08:37 08/28/16 12:15 Bedside Glucose 195 195 Medications Medications Current Medications Ondansetron HCl (Zofran Inj) 4 mg Q6H PRN IV NAUSEA AND/OR VOMITING; Start 08/21 at 05:00 Diphenhydramine HCl (Benadryl) 25 mg Q6H PRN IV ITCHING Last administered on 05:19; Admin Dose 25 MG; Start 08/21/16 at 05:00 Aspirin (Halfprin) 81 mg DAILY PO Last administered on 08/28/16 08:39; Admin Dose 81 MG; Start 08/21/16 at 10:30 Atorvastatin Calcium (Lipitor) 80 mg QHS PO Last administered on 08/27/16 20: 21; Admin Dose 80 MG; Start 08/21/16 at 21:00 Clonidine (Catapres) 0.1 mg Q6 PO Last administered on 08/28/16 05:19; Admin Dose 0.1 MG; Start 08/21/16 at 12:00 Diphenhydramine HCl (Benadryl) 50 mg Q6 PRN PO ITCHING; Start 08/21/16 at 10:30 Docusate Sodium (Colace) 100 mg BID PO Last administered on 08/28/16 08:39; Admin Dose 100 MG; Start 08/21/16 at 10:30 Isosorbide Mononitrate (Imdur) 60 mg DAILY PO Last administered on 08/27/16 18 :41; Admin Dose 60 MG; Start 08/21/16 at 10:30 Lactobacillus Acidoph/Bulgaricus (Floranex) 1 tab TID PO Last administered on 08:38; Admin Dose 1 TAB; Start 08/21/16 at 13:00 Lisinopril (Zestril) 10 mg DAILY PO Last administered on 08/27/16 18:41; Admin Dose 10 MG; Start 08/21/16 at 10:30 Lorazepam (Ativan) 2 mg HS PO Last administered on 08/27/16 20:21; Admin Dose 2 MG; Start 08/21/16 at 21:00 Metoprolol Succinate (Toprol Xl) 50 mg BID PO Last administered on 08/28/16 08 :40; Admin Dose 50 MG; Start 08/21/16 at 10:30 Pramipexole (Mirapex) 0.25 mg HS PO Last administered on 08/27/16 20:19; Admin Dose 0.25 MG; Start 08/21/16 at 21:00 Prasugrel (Effient) 10 mg DAILY PO Last administered on 08/28/16 08:39; Admin Dose 10 MG; Start 08/21/16 at 10:30 Diphenhydramine HCl (Benadryl) 50 mg PRN PRN IV GIVE PRIOR TO EACH HD Last administered on 08/28/16 11:09; Admin Dose 50 MG; Start 08/21/16 at 12:00 Lorazepam (Ativan) 1 mg PRN PRN IV PRIOR TO EACH HD Last administered on 11:09; Admin Dose 1 MG; Start 08/21/16 at 12:30 Epoetin Fredy (Epogen (Esrd)) 10,000 units TuThSa@17 SC Last administered on 18:23; Admin Dose 10,000 UNITS; Start 08/21/16 at 17:00 Apixaban (Eliquis) 2.5 mg BID PO Last administered on 08/28/16 08:39; Admin Dose 2.5 MG; Start 08/21/16 at 21:00 Miscellaneous Information 1 ea NOTE XX ; Start 08/21/16 at 19:00 Glucose (Glutose) 15 gm Q15M PRN PO DECREASED GLUCOSE; Start 08/21/16 at 19:00 Glucose (Glutose) 22.5 gm Q15M PRN PO DECREASED GLUCOSE; Start 08/21/16 at 19:00 Dextrose (D50w Syringe) 25 ml Q15M PRN IV DECREASED GLUCOSE; Start 08/21/16 at 19:00 Dextrose (D50w Syringe) 50 ml Q15M PRN IV DECREASED GLUCOSE; Start 08/21/16 at 19:00 Glucagon (Glucagen) 1 mg Q15M PRN IM DECREASED GLUCOSE; Start 08/21/16 at 19:00 Glucose (Glutose) 15 gm Q15M PRN BUCCAL DECREASED GLUCOSE; Start 08/21/16 at 19: 00 Diphenhydramine HCl (Benadryl) 50 mg Q6H PRN IV SLEEP Last administered on 21:20; Admin Dose 50 MG; Start 08/21/16 at 21:00 Hydromorphone HCl (Dilaudid) 2 mg Q3H PRN IV PAIN Last administered on 08:35; Admin Dose 2 MG; Start 08/25/16 at 18:10 Gabapentin (Neurontin) 300 mg BID PO Last administered on 08/28/16 08:39; Admin Dose 300 MG; Start 08/27/16 at 13:30 DONY HOWARD MD Aug 28, 2016 13:36
--- NOTE | 2016-08-28 15:52 | PN ---
Date/Time of Note Date/Time of Note DATE: 08/28/16 TIME: 15:50 Assessment/Plan VTE Prophylaxis VTE Prophylaxis Intervention: other Lines/Catheters IV [facility]from [facility]): SUZANNE CATH Urinary Cath still in place: No Assessment/Plan Assessment/Plan - Chest pain in patient with coronary artery disease and history of stent placement. Dr. Stephen is following in cardiology consultation. S/P LHC, LAD LIME KILN TENDER distally at the edge of previous stent. Successful LAD LIME KILN TENDER with PCI. S/p Successful Right SFA and pop DCB with Zilver PTX stent placement by Dr Stephen on . Continue aspirin and Effient. - End-stage renal disease, hemodialysis dependent. Dr. Hubbard is following in nephrology consultation. - Diabetes mellitus type 1. Continue insulin management with insulin pump. Dr. Haddad is following an endocrinology consultation - Peripheral arterial disease, status post vascular interventions at previous admission. Continued on Eliquis. Dr. Byrnes is following in vascular surgery consultation. - Anemia of chronic disease, continue Epogen. Further recommendations based on clinical course. Plan of care discussed with Dr. Rosales. Subjective 24 Hr Interval Summary Constitutional: improved Eyes: no complaints ENT: no complaints Respiratory: no complaints Cardiovascular: no complaints Gastrointestinal: no complaints Musculoskeletal: back pain Skin: no complaints Neurologic: no complaints Endocrine: no complaints Lymphatic: no complaints Psychological: no complaints Exam/Review of Systems Vital Signs Vitals Vital Signs Date Time Temp Pulse Resp B/P Pulse Ox O2 Delivery O2 Flow Rate FiO2 08/28/16 13:43 82 08/28/16 13:30 18 08/28/16 12:15 97.6 125/73 94 08/25/16 10:55 Room Air Intake and Output 08/27/16 08/27/16 08/28/16 15:00 23:00 07:00 Intake Total 720 ml 350 ml Balance 720 ml 350 ml Exam Constitutional: alert, oriented, well developed Psych: nl mood/affect Head: atraumatic Eyes: EOMI ENMT: nl external ears & nose Neck: non-tender Respiratory: clear to auscultation Cardiovascular: regular rate and rhythm Gastrointestinal: non-tender, soft Musculoskeletal: other Extremities: normal pulses 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: nl mental status, nl speech Skin: nl turgor Lymph: nl lymph nodes Results Result Diagram: 08/27/16 0800 08/28/16 0620 Results 24 hrs Laboratory Tests Test 08/27/16 18:23 08/27/16 20:30 08/28/16 06:20 08/28/16 08:37 Bedside Glucose 130 138 195 Anion Gap 24 H Blood Urea Nitrogen 57 H Calcium Level 6.3 L Carbon Dioxide Level 22 Chloride Level 95 L Creatinine 7.49 H Glucose Level 188 Magnesium Level 1.6 L Potassium Level 4.7 Sodium Level 136 Test 08/28/16 12:15 Bedside Glucose 195 Medications Medications Current Medications Ondansetron HCl (Zofran Inj) 4 mg Q6H PRN IV NAUSEA AND/OR VOMITING; Start 08/21 at 05:00 Diphenhydramine HCl (Benadryl) 25 mg Q6H PRN IV ITCHING Last administered on 05:19; Admin Dose 25 MG; Start 08/21/16 at 05:00 Aspirin (Halfprin) 81 mg DAILY PO Last administered on 08/28/16 08:39; Admin Dose 81 MG; Start 08/21/16 at 10:30 Atorvastatin Calcium (Lipitor) 80 mg QHS PO Last administered on 08/27/16 20: 21; Admin Dose 80 MG; Start 08/21/16 at 21:00 Clonidine (Catapres) 0.1 mg Q6 PO Last administered on 08/28/16 05:19; Admin Dose 0.1 MG; Start 08/21/16 at 12:00 Diphenhydramine HCl (Benadryl) 50 mg Q6 PRN PO ITCHING; Start 08/21/16 at 10:30 Docusate Sodium (Colace) 100 mg BID PO Last administered on 08/28/16 08:39; Admin Dose 100 MG; Start 08/21/16 at 10:30 Isosorbide Mononitrate (Imdur) 60 mg DAILY PO Last administered on 08/27/16 18 :41; Admin Dose 60 MG; Start 08/21/16 at 10:30 Lactobacillus Acidoph/Bulgaricus (Floranex) 1 tab TID PO Last administered on 08:38; Admin Dose 1 TAB; Start 08/21/16 at 13:00 Lisinopril (Zestril) 10 mg DAILY PO Last administered on 08/27/16 18:41; Admin Dose 10 MG; Start 08/21/16 at 10:30 Lorazepam (Ativan) 2 mg HS PO Last administered on 08/27/16 20:21; Admin Dose 2 MG; Start 08/21/16 at 21:00 Metoprolol Succinate (Toprol Xl) 50 mg BID PO Last administered on 08/28/16 08 :40; Admin Dose 50 MG; Start 08/21/16 at 10:30 Pramipexole (Mirapex) 0.25 mg HS PO Last administered on 08/27/16 20:19; Admin Dose 0.25 MG; Start 08/21/16 at 21:00 Prasugrel (Effient) 10 mg DAILY PO Last administered on 08/28/16 08:39; Admin Dose 10 MG; Start 08/21/16 at 10:30 Diphenhydramine HCl (Benadryl) 50 mg PRN PRN IV GIVE PRIOR TO EACH HD Last administered on 08/28/16 11:09; Admin Dose 50 MG; Start 08/21/16 at 12:00 Lorazepam (Ativan) 1 mg PRN PRN IV PRIOR TO EACH HD Last administered on 11:09; Admin Dose 1 MG; Start 08/21/16 at 12:30 Epoetin Fredy (Epogen (Esrd)) 10,000 units TuThSa@17 SC Last administered on 18:23; Admin Dose 10,000 UNITS; Start 08/21/16 at 17:00 Apixaban (Eliquis) 2.5 mg BID PO Last administered on 08/28/16 08:39; Admin Dose 2.5 MG; Start 08/21/16 at 21:00 Miscellaneous Information 1 ea NOTE XX ; Start 08/21/16 at 19:00 Glucose (Glutose) 15 gm Q15M PRN PO DECREASED GLUCOSE; Start 08/21/16 at 19:00 Glucose (Glutose) 22.5 gm Q15M PRN PO DECREASED GLUCOSE; Start 08/21/16 at 19:00 Dextrose (D50w Syringe) 25 ml Q15M PRN IV DECREASED GLUCOSE; Start 08/21/16 at 19:00 Dextrose (D50w Syringe) 50 ml Q15M PRN IV DECREASED GLUCOSE; Start 08/21/16 at 19:00 Glucagon (Glucagen) 1 mg Q15M PRN IM DECREASED GLUCOSE; Start 08/21/16 at 19:00 Glucose (Glutose) 15 gm Q15M PRN BUCCAL DECREASED GLUCOSE; Start 08/21/16 at 19: 00 Diphenhydramine HCl (Benadryl) 50 mg Q6H PRN IV SLEEP Last administered on 21:20; Admin Dose 50 MG; Start 08/21/16 at 21:00 Hydromorphone HCl (Dilaudid) 2 mg Q3H PRN IV PAIN Last administered on 13:36; Admin Dose 2 MG; Start 08/25/16 at 18:10 Gabapentin (Neurontin) 300 mg BID PO Last administered on 08/28/16 08:39; Admin Dose 300 MG; Start 08/27/16 at 13:30 PEDRO BENSON Aug 28, 2016 15:52
[2016-08-28] MEDS: EPOETIN 10000 UNITS/1 ML INJ (ESRD) SC SCH (18:10)
[2016-08-28] MEDS: PRAMIPEXOLE 0.25 MG TAB PO SCH (21:00)
[2016-08-28] MEDS: ATORVASTATIN 80 MG TAB PO SCH (22:30)
[2016-08-28] MEDS: LORAZEPAM 1 MG TAB PO SCH (22:30)
--- NOTE | 2016-08-28 23:13 | CONS ---
Date/Time of Note Date/Time of Note DATE: 08/28/16 TIME: 23:12 Consult Date/Type/Reason Admit Date/Time Aug 21, 2016 at 03:32 Initial Consult Date 08/21/16 Type of Consultation: renal Ordering Provider: WILMER RODRIGUEZ MD Objective Vital Signs Date Time Temp Pulse Resp B/P Pulse Ox O2 Delivery O2 Flow Rate FiO2 08/28/16 20:00 98.3 85 20 137/81 98 08/25/16 10:55 Room Air Intake and Output 08/27/16 08/27/16 08/28/16 14:59 22:59 06:59 Intake Total 720 ml 350 ml Balance 720 ml 350 ml Results/Medications Result Diagram: 08/27/16 0800 08/28/16 0620 Results 24 hrs Laboratory Tests Test 08/28/16 06:20 08/28/16 08:37 08/28/16 12:15 08/28/16 17:50 Anion Gap 24 H Blood Urea Nitrogen 57 H Calcium Level 6.3 L Carbon Dioxide Level 22 Chloride Level 95 L Creatinine 7.49 H Glucose Level 188 Magnesium Level 1.6 L Potassium Level 4.7 Sodium Level 136 Bedside Glucose 195 195 287 H Medications Current Medications Ondansetron HCl (Zofran Inj) 4 mg Q6H PRN IV NAUSEA AND/OR VOMITING; Start 08/21 at 05:00 Diphenhydramine HCl (Benadryl) 25 mg Q6H PRN IV ITCHING Last administered on 22:29; Admin Dose 25 MG; Start 08/21/16 at 05:00 Aspirin (Halfprin) 81 mg DAILY PO Last administered on 08/28/16 08:39; Admin Dose 81 MG; Start 08/21/16 at 10:30 Atorvastatin Calcium (Lipitor) 80 mg QHS PO Last administered on 08/28/16 22: 30; Admin Dose 80 MG; Start 08/21/16 at 21:00 Clonidine (Catapres) 0.1 mg Q6 PO Last administered on 08/28/16 18:07; Admin Dose 0.1 MG; Start 08/21/16 at 12:00 Diphenhydramine HCl (Benadryl) 50 mg Q6 PRN PO ITCHING; Start 08/21/16 at 10:30 Docusate Sodium (Colace) 100 mg BID PO Last administered on 08/28/16 22:29; Admin Dose 100 MG; Start 08/21/16 at 10:30 Isosorbide Mononitrate (Imdur) 60 mg DAILY PO Last administered on 08/27/16 18 :41; Admin Dose 60 MG; Start 08/21/16 at 10:30 Lactobacillus Acidoph/Bulgaricus (Floranex) 1 tab TID PO Last administered on 22:29; Admin Dose 1 TAB; Start 08/21/16 at 13:00 Lisinopril (Zestril) 10 mg DAILY PO Last administered on 08/27/16 18:41; Admin Dose 10 MG; Start 08/21/16 at 10:30 Lorazepam (Ativan) 2 mg HS PO Last administered on 08/28/16 22:30; Admin Dose 2 MG; Start 08/21/16 at 21:00 Metoprolol Succinate (Toprol Xl) 50 mg BID PO Last administered on 08/28/16 21 :00; Admin Dose 50 MG; Start 08/21/16 at 10:30 Pramipexole (Mirapex) 0.25 mg HS PO Last administered on 08/27/16 20:19; Admin Dose 0.25 MG; Start 08/21/16 at 21:00 Prasugrel (Effient) 10 mg DAILY PO Last administered on 08/28/16 08:39; Admin Dose 10 MG; Start 08/21/16 at 10:30 Diphenhydramine HCl (Benadryl) 50 mg PRN PRN IV GIVE PRIOR TO EACH HD Last administered on 08/28/16 11:09; Admin Dose 50 MG; Start 08/21/16 at 12:00 Lorazepam (Ativan) 1 mg PRN PRN IV PRIOR TO EACH HD Last administered on 11:09; Admin Dose 1 MG; Start 08/21/16 at 12:30 Epoetin Fredy (Epogen (Esrd)) 10,000 units TuThSa@17 SC Last administered on 18:10; Admin Dose 10,000 UNITS; Start 08/21/16 at 17:00 Apixaban (Eliquis) 2.5 mg BID PO Last administered on 08/28/16 21:00; Admin Dose 2.5 MG; Start 08/21/16 at 21:00 Miscellaneous Information 1 ea NOTE XX ; Start 08/21/16 at 19:00 Glucose (Glutose) 15 gm Q15M PRN PO DECREASED GLUCOSE; Start 08/21/16 at 19:00 Glucose (Glutose) 22.5 gm Q15M PRN PO DECREASED GLUCOSE; Start 08/21/16 at 19:00 Dextrose (D50w Syringe) 25 ml Q15M PRN IV DECREASED GLUCOSE; Start 08/21/16 at 19:00 Dextrose (D50w Syringe) 50 ml Q15M PRN IV DECREASED GLUCOSE; Start 08/21/16 at 19:00 Glucagon (Glucagen) 1 mg Q15M PRN IM DECREASED GLUCOSE; Start 08/21/16 at 19:00 Glucose (Glutose) 15 gm Q15M PRN BUCCAL DECREASED GLUCOSE; Start 08/21/16 at 19: 00 Diphenhydramine HCl (Benadryl) 50 mg Q6H PRN IV SLEEP Last administered on 21:20; Admin Dose 50 MG; Start 08/21/16 at 21:00 Hydromorphone HCl (Dilaudid) 2 mg Q3H PRN IV PAIN Last administered on 22:28; Admin Dose 2 MG; Start 08/25/16 at 18:10 Gabapentin (Neurontin) 300 mg BID PO Last administered on 08/28/16 21:00; Admin Dose 300 MG; Start 08/27/16 at 13:30 Assessment/Plan Chief Complaint/Hosp Course Patient is my patient from out pt, 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 He has ESRD and PAD with plan to open his Right SFA out pt.came in with CP, stable angina. trop neg x 2. Echo with normal wall motion and normal function. EKG non ischemic. Problems: Additional Assessment/Plan S.P PCI of LAD S/P SFA intervention for resting pain doing fine stable pain management. plan for /dc CYNDIE GARCIA MD Aug 28, 2016 23:13
[2016-08-29] VITALS (13 sets, daily range): BP systolic 128–153; BP diastolic 67–82; PULSE 70–81; RESP 18–20
[2016-08-29] MEDS: HYDROmorphONE 2 MG/ML SYG IV PRN ×9 (01:10→23:03)
[2016-08-29] MEDS: DIPHENHYDRAMINE 50 MG INJ IV PRN ×4 (03:46→23:03)
[2016-08-29] MEDS: ACCUCHECK XX SCH ×7 (07:30→21:00)
[2016-08-29] MEDS: [UNRECOGNIZED DRUG - OTHER] SC SCH ×4 (07:30→21:00)
[2016-08-29 07:42] LABS: ADD SCAN DIFF NO; BASOPHILS % 0.7 % (0.0-2.0); EOSINOPHILS # 0.6 10^3/ul (0.0-0.5); HEMATOCRIT 27.3 % (42.0-52.0); HEMOGLOBIN 8.6 g/dl (14.0-18.0); LYMPHOCYTES # 0.9 10^3/ul (0.8-2.9); LYMPHOCYTES % 15.6 % (15.0-51.0); MEAN CORPUSCULAR HGB CONC 31.5 g/dl (32.0-37.0); MEAN CORPUSCULAR VOLUME 95.1 fl (82.0-101.0); MEAN PLATELET VOLUME 11.6 fl (7.4-10.4); MONOCYTE # 0.7 10^3/ul (0.3-0.9); MONOCYTES % 12.2 % (0.0-11.0); NEUTROPHIL # 3.4 10^3/ul (1.6-7.5); NEUTROPHILS % 61.1 % (39.0-77.0); PLATELET COUNT 191 10^3/UL (140-415); RED BLOOD COUNT 2.87 10^6/ul (4.70-6.10); RED CELL DISTRIBUTION WIDTH 14.6 % (11.5-14.5); WHITE BLOOD COUNT 5.5 10^3/ul (4.8-10.8)
[2016-08-29 08:04] LABS: POTASSIUM 5.3 mmol/L (3.5-5.1)
[2016-08-29 08:07] LABS: CREATININE 6.74 mg/dl (0.61-1.24)
[2016-08-29 08:08] LABS: CALCIUM 6.4 mg/dl (8.4-10.2)
[2016-08-29] MEDS: SEVELAMER 800 MG TAB PO SCH ×3 (10:00→17:41)
[2016-08-29] MEDS: METOPROLOL (XL) 50 MG TAB PO SCH ×2 (10:00→23:05)
[2016-08-29] MEDS: CALCIUM ACETATE 667 MG CAP PO SCH ×3 (10:01→17:41)
[2016-08-29] MEDS: ISOSORBIDE MONONITRATE(SR)60 MG TAB PO SCH (10:01)
[2016-08-29] MEDS: GABAPENTIN 300 MG CAP PO SCH ×2 (10:01→23:04)
[2016-08-29] MEDS: LISINOPRIL 10 MG TAB PO SCH (10:01)
[2016-08-29] MEDS: ASPIRIN (EC) 81 MG TAB PO SCH (10:01)
[2016-08-29] MEDS: APIXABAN 5 MG TABLET PO SCH ×2 (10:01→23:05)
[2016-08-29] MEDS: DOCUSATE SODIUM 100 MG CAP PO SCH ×2 (10:01→23:05)
[2016-08-29] MEDS: LACTOBACILLUS CHEW TAB PO SCH ×3 (10:01→23:04)
--- NOTE | 2016-08-29 12:45 | CONS ---
Date/Time of Note Date/Time of Note DATE: 08/29/16 TIME: 12:37 Assessment/Plan Assessment/Plan Chief Complaint/Hosp Course 1. ESRD , he is on dialysis T T S . He is due for dialysis for tomorrow . Dialysis ordered for tomorrow .I would plan to have him discharged after dialysis tomorrow . . 2. he was admitted for chest pain . He is now 4 days post op a [facility] with coronary artery stent placement in LAD and a stent placed in R SFA . 3. HTN 4. Type 1 DM 5. PAD 6. Hyperkalemia , he is on [place] Problems: Consultation Date/Type/Reason Admit Date/Time Aug 21, 2016 at 03:32 Initial Consult Date 08/21/16 Type of Consultation: renal Referring Provider: WILMER RODRIGUEZ MD 24 HR Interval Summary Free Text/Dictation He is awake and alert . No complaints . Constitutional: improved, no complaints Exam/Review of Systems Vital Signs Vitals Vital Signs Date Time Temp Pulse Resp B/P Pulse Ox O2 Delivery O2 Flow Rate FiO2 08/29/16 12:22 81 08/29/16 12:03 98.0 19 144/78 98 08/25/16 10:55 Room Air Intake and Output 08/28/16 08/28/16 08/29/16 15:00 23:00 07:00 Intake Total 300 ml 650 ml Output Total 4300 ml Balance -4000 ml 650 ml Exam Constitutional: alert, oriented, well developed Respiratory: clear to auscultation, normal air movement Cardiovascular: nl pulses, regular rate and rhythm Gastrointestinal: soft Musculoskeletal: nl extremities to inspection Results Result Diagram: 08/29/16 0636 08/29/16 0636 Results 24 hrs Laboratory Tests Test 08/28/16 17:50 08/29/16 00:42 08/29/16 06:36 08/29/16 08:26 Bedside Glucose 287 H 256 H 357 H Anion Gap 22 H Basophils # 0.0 Basophils % 0.7 Blood Urea Nitrogen 49 H Calcium Level 6.4 L Carbon Dioxide Level 24 Chloride Level 94 L Creatinine 6.74 H Eosinophils # 0.6 H Eosinophils % 10.0 H Glucose Level 339 #H Hematocrit 27.3 L Hemoglobin 8.6 L Lymphocytes # 0.9 Lymphocytes % 15.6 Mean Corpuscular Hemoglobin 30.0 Mean Corpuscular Hemoglobin Concent 31.5 L Mean Corpuscular Volume 95.1 Mean Platelet Volume 11.6 H Monocytes # 0.7 Monocytes % 12.2 H Neutrophils # 3.4 Neutrophils % 61.1 Nucleated Red Blood Cells # 0.0 Nucleated Red Blood Cells % 0.0 Platelet Count 191 Potassium Level 5.3 H Red Blood Count 2.87 L Red Cell Distribution Width 14.6 H Sodium Level 135 White Blood Count 5.5 Medications Medications Current Medications Ondansetron HCl (Zofran Inj) 4 mg Q6H PRN IV NAUSEA AND/OR VOMITING; Start 08/21 at 05:00 Diphenhydramine HCl (Benadryl) 25 mg Q6H PRN IV ITCHING Last administered on 10:00; Admin Dose 25 MG; Start 08/21/16 at 05:00 Aspirin (Halfprin) 81 mg DAILY PO Last administered on 08/29/16 10:01; Admin Dose 81 MG; Start 08/21/16 at 10:30 Atorvastatin Calcium (Lipitor) 80 mg QHS PO Last administered on 08/28/16 22: 30; Admin Dose 80 MG; Start 08/21/16 at 21:00 Clonidine (Catapres) 0.1 mg Q6 PO Last administered on 08/28/16 18:07; Admin Dose 0.1 MG; Start 08/21/16 at 12:00 Diphenhydramine HCl (Benadryl) 50 mg Q6 PRN PO ITCHING; Start 08/21/16 at 10:30 Docusate Sodium (Colace) 100 mg BID PO Last administered on 08/29/16 10:01; Admin Dose 100 MG; Start 08/21/16 at 10:30 Isosorbide Mononitrate (Imdur) 60 mg DAILY PO Last administered on 08/29/16 10 :01; Admin Dose 60 MG; Start 08/21/16 at 10:30 Lactobacillus Acidoph/Bulgaricus (Floranex) 1 tab TID PO Last administered on 10:01; Admin Dose 1 TAB; Start 08/21/16 at 13:00 Lisinopril (Zestril) 10 mg DAILY PO Last administered on 08/29/16 10:01; Admin Dose 10 MG; Start 08/21/16 at 10:30 Lorazepam (Ativan) 2 mg HS PO Last administered on 08/28/16 22:30; Admin Dose 2 MG; Start 08/21/16 at 21:00 Metoprolol Succinate (Toprol Xl) 50 mg BID PO Last administered on 08/29/16 10 :00; Admin Dose 50 MG; Start 08/21/16 at 10:30 Pramipexole (Mirapex) 0.25 mg HS PO Last administered on 08/27/16 20:19; Admin Dose 0.25 MG; Start 08/21/16 at 21:00 Prasugrel (Effient) 10 mg DAILY PO Last administered on 08/28/16 08:39; Admin Dose 10 MG; Start 08/21/16 at 10:30 Diphenhydramine HCl (Benadryl) 50 mg PRN PRN IV GIVE PRIOR TO EACH HD Last administered on 08/28/16 11:09; Admin Dose 50 MG; Start 08/21/16 at 12:00 Lorazepam (Ativan) 1 mg PRN PRN IV PRIOR TO EACH HD Last administered on 11:09; Admin Dose 1 MG; Start 08/21/16 at 12:30 Epoetin Fredy (Epogen (Esrd)) 10,000 units TuThSa@17 SC Last administered on 18:10; Admin Dose 10,000 UNITS; Start 08/21/16 at 17:00 Apixaban (Eliquis) 2.5 mg BID PO Last administered on 08/29/16 10:01; Admin Dose 2.5 MG; Start 08/21/16 at 21:00 Miscellaneous Information 1 ea NOTE XX ; Start 08/21/16 at 19:00 Glucose (Glutose) 15 gm Q15M PRN PO DECREASED GLUCOSE; Start 08/21/16 at 19:00 Glucose (Glutose) 22.5 gm Q15M PRN PO DECREASED GLUCOSE; Start 08/21/16 at 19:00 Dextrose (D50w Syringe) 25 ml Q15M PRN IV DECREASED GLUCOSE; Start 08/21/16 at 19:00 Dextrose (D50w Syringe) 50 ml Q15M PRN IV DECREASED GLUCOSE; Start 08/21/16 at 19:00 Glucagon (Glucagen) 1 mg Q15M PRN IM DECREASED GLUCOSE; Start 08/21/16 at 19:00 Glucose (Glutose) 15 gm Q15M PRN BUCCAL DECREASED GLUCOSE; Start 08/21/16 at 19: 00 Diphenhydramine HCl (Benadryl) 50 mg Q6H PRN IV SLEEP Last administered on 21:20; Admin Dose 50 MG; Start 08/21/16 at 21:00 Hydromorphone HCl (Dilaudid) 2 mg Q3H PRN IV PAIN Last administered on 09:59; Admin Dose 2 MG; Start 08/25/16 at 18:10 Gabapentin (Neurontin) 300 mg BID PO Last administered on 08/29/16 10:01; Admin Dose 300 MG; Start 08/27/16 at 13:30 DONY HOWARD MD Aug 29, 2016 12:45
[2016-08-29] MEDS: PRASUGREL HYDROCHLORIDE 10 MG TABLET PO SCH (12:59)
[2016-08-29] MEDS: PATIROMER CALCIUM SORBITEX 16.8 GM PKT PO SCH (13:00)
--- NOTE | 2016-08-29 15:59 | CONS ---
Date/Time of Note Date/Time of Note DATE: 08/29/16 TIME: 15:58 Consult Date/Type/Reason Admit Date/Time Aug 21, 2016 at 03:32 Initial Consult Date 08/21/16 Type of Consultation: renal Ordering Provider: WILMER RODRIGUEZ MD Objective Vital Signs Date Time Temp Pulse Resp B/P Pulse Ox O2 Delivery O2 Flow Rate FiO2 08/29/16 12:22 81 08/29/16 12:03 98.0 19 144/78 98 08/25/16 10:55 Room Air Intake and Output 08/28/16 08/28/16 08/29/16 15:00 23:00 07:00 Intake Total 300 ml 650 ml Output Total 4300 ml Balance -4000 ml 650 ml Results/Medications Result Diagram: 08/29/16 0636 08/29/16 0636 Results 24 hrs Laboratory Tests Test 08/28/16 17:50 08/29/16 00:42 08/29/16 06:36 08/29/16 08:26 Bedside Glucose 287 H 256 H 357 H Anion Gap 22 H Basophils # 0.0 Basophils % 0.7 Blood Urea Nitrogen 49 H Calcium Level 6.4 L Carbon Dioxide Level 24 Chloride Level 94 L Creatinine 6.74 H Eosinophils # 0.6 H Eosinophils % 10.0 H Glucose Level 339 #H Hematocrit 27.3 L Hemoglobin 8.6 L Lymphocytes # 0.9 Lymphocytes % 15.6 Mean Corpuscular Hemoglobin 30.0 Mean Corpuscular Hemoglobin Concent 31.5 L Mean Corpuscular Volume 95.1 Mean Platelet Volume 11.6 H Monocytes # 0.7 Monocytes % 12.2 H Neutrophils # 3.4 Neutrophils % 61.1 Nucleated Red Blood Cells # 0.0 Nucleated Red Blood Cells % 0.0 Platelet Count 191 Potassium Level 5.3 H Red Blood Count 2.87 L Red Cell Distribution Width 14.6 H Sodium Level 135 White Blood Count 5.5 Medications Current Medications Ondansetron HCl (Zofran Inj) 4 mg Q6H PRN IV NAUSEA AND/OR VOMITING; Start 08/21 at 05:00 Diphenhydramine HCl (Benadryl) 25 mg Q6H PRN IV ITCHING Last administered on t 10:00; Admin Dose 25 MG; Start 08/21/16 at 05:00 Aspirin (Halfprin) 81 mg DAILY PO Last administered on 08/29/16 10:01; Admin Dose 81 MG; Start 08/21/16 at 10:30 Atorvastatin Calcium (Lipitor) 80 mg QHS PO Last administered on 08/28/16 22: 30; Admin Dose 80 MG; Start 08/21/16 at 21:00 Clonidine (Catapres) 0.1 mg Q6 PO Last administered on 08/29/16 12:47; Admin Dose 0.1 MG; Start 08/21/16 at 12:00 Diphenhydramine HCl (Benadryl) 50 mg Q6 PRN PO ITCHING; Start 08/21/16 at 10:30 Docusate Sodium (Colace) 100 mg BID PO Last administered on 08/29/16 10:01; Admin Dose 100 MG; Start 08/21/16 at 10:30 Isosorbide Mononitrate (Imdur) 60 mg DAILY PO Last administered on 08/29/16 10 :01; Admin Dose 60 MG; Start 08/21/16 at 10:30 Lactobacillus Acidoph/Bulgaricus (Floranex) 1 tab TID PO Last administered on 12:59; Admin Dose 1 TAB; Start 08/21/16 at 13:00 Lisinopril (Zestril) 10 mg DAILY PO Last administered on 08/29/16 10:01; Admin Dose 10 MG; Start 08/21/16 at 10:30 Lorazepam (Ativan) 2 mg HS PO Last administered on 08/28/16 22:30; Admin Dose 2 MG; Start 08/21/16 at 21:00 Metoprolol Succinate (Toprol Xl) 50 mg BID PO Last administered on 08/29/16 10 :00; Admin Dose 50 MG; Start 08/21/16 at 10:30 Pramipexole (Mirapex) 0.25 mg HS PO Last administered on 08/27/16 20:19; Admin Dose 0.25 MG; Start 08/21/16 at 21:00 Prasugrel (Effient) 10 mg DAILY PO Last administered on 08/29/16 12:59; Admin Dose 10 MG; Start 08/21/16 at 10:30 Diphenhydramine HCl (Benadryl) 50 mg PRN PRN IV GIVE PRIOR TO EACH HD Last administered on 08/28/16 11:09; Admin Dose 50 MG; Start 08/21/16 at 12:00 Lorazepam (Ativan) 1 mg PRN PRN IV PRIOR TO EACH HD Last administered on 11:09; Admin Dose 1 MG; Start 08/21/16 at 12:30 Epoetin Fredy (Epogen (Esrd)) 10,000 units TuThSa@17 SC Last administered on 18:10; Admin Dose 10,000 UNITS; Start 08/21/16 at 17:00 Apixaban (Eliquis) 2.5 mg BID PO Last administered on 08/29/16 10:01; Admin Dose 2.5 MG; Start 08/21/16 at 21:00 Miscellaneous Information 1 ea NOTE XX ; Start 08/21/16 at 19:00 Glucose (Glutose) 15 gm Q15M PRN PO DECREASED GLUCOSE; Start 08/21/16 at 19:00 Glucose (Glutose) 22.5 gm Q15M PRN PO DECREASED GLUCOSE; Start 08/21/16 at 19:00 Dextrose (D50w Syringe) 25 ml Q15M PRN IV DECREASED GLUCOSE; Start 08/21/16 at 19:00 Dextrose (D50w Syringe) 50 ml Q15M PRN IV DECREASED GLUCOSE; Start 08/21/16 at 19:00 Glucagon (Glucagen) 1 mg Q15M PRN IM DECREASED GLUCOSE; Start 08/21/16 at 19:00 Glucose (Glutose) 15 gm Q15M PRN BUCCAL DECREASED GLUCOSE; Start 08/21/16 at 19: 00 Diphenhydramine HCl (Benadryl) 50 mg Q6H PRN IV SLEEP Last administered on 21:20; Admin Dose 50 MG; Start 08/21/16 at 21:00 Hydromorphone HCl (Dilaudid) 2 mg Q3H PRN IV PAIN Last administered on 13:00; Admin Dose 2 MG; Start 08/25/16 at 18:10 Gabapentin (Neurontin) 300 mg BID PO Last administered on 08/29/16 10:01; Admin Dose 300 MG; Start 08/27/16 at 13:30 Assessment/Plan Chief Complaint/Hosp Course Patient is my patient from out pt, 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 He has ESRD and PAD with plan to open his Right SFA out pt.came in with CP, stable angina. trop neg x 2. Echo with normal wall motion and normal function. EKG non ischemic. Problems: Additional Assessment/Plan Stable Feel better in right lower ext post interventions No more CP plan to d/c home tomorrow post HD CYNDIE GARCIA MD Aug 29, 2016 15:59
--- NOTE | 2016-08-29 20:02 | PN ---
Date/Time of Note Date/Time of Note DATE: 08/29/16 TIME: 19:59 Assessment/Plan VTE Prophylaxis VTE Prophylaxis Intervention: SCD's Lines/Catheters IV [facility] SUZANNE CATH Urinary Cath still in place: No Assessment/Plan Chief Complaint/Hosp Course Assessment/Plan - Chest pain in patient with coronary artery disease and history of stent placement. Dr. Stephen is following in cardiology consultation. 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 Successful LAD WEIGHT CONTROL LECTURER with PCI. S/p Successful Right SFA and pop DCB with Zilver PTX stent placement by Dr Stephen on . Continue aspirin and Effient. - End-stage renal disease, hemodialysis dependent. Dr. Hubbard is following in nephrology consultation. - Diabetes mellitus type 1. Continue insulin management with insulin pump. Dr. Haddad is following an endocrinology consultation - Peripheral arterial disease, status post vascular interventions at previous admission. Continued on Eliquis. Dr. Byrnes is following in vascular surgery consultation. - Anemia of chronic disease, continue Epogen. [facility] after hemodialysis tomorrow. Further recommendations based on clinical course. Plan of care discussed with Dr. Rosales. Problems: Subjective 24 Hr Interval Summary Free Text/Dictation Patient sitting in bed eating dinner, awake alert, pain is well controlled with current dose of Dilaudid, patient denies fever nausea vomiting, pending hemodialysis tomorrow. Patient had elevated sugar today, encourage compliance with certified adaptive physical educator recommendation, continue management with insulin. Exam/Review of Systems Vital Signs Vitals Vital Signs Date Time Temp Pulse Resp B/P Pulse Ox O2 Delivery O2 Flow Rate FiO2 08/29/16 16:47 73 08/29/16 16:01 98.7 19 129/76 97 08/25/16 10:55 Room Air Intake and Output 08/28/16 08/28/16 08/29/16 15:00 23:00 07:00 Intake Total 300 ml 650 ml Output Total 4300 ml Balance -4000 ml 650 ml Exam GENERAL: Well-developed, well-nourished male, awake, alert. HEENT: The patient has right eye prosthesis. Left pupil is equal, round, reactive to light and accommodation. NECK: Supple. No cervical lymphadenopathy, no thyromegaly. CHEST: Lungs clear bilaterally. There are no rhonchi, wheezes, rales noted. CARDIOVASCULAR: Normal S1, S2. No murmurs, gallops, clicks, rubs noted. ABDOMEN: Flat, soft, nondistended. The patient has generalized tenderness to epigastric tenderness on palpation. No guarding. EXTREMITIES: No edema, clubbing, cyanosis. Left upper extremity AV graft with a palpable thrill and audible bruit. SKIN: No rash, petechiae noted. NEUROLOGIC: The patient is awake, alert, and oriented x3. Results Result Diagram: 08/29/16 0636 08/29/16 1730 Results 24 hrs Laboratory Tests Test 08/29/16 00:42 08/29/16 06:36 08/29/16 08:26 08/29/16 17:16 Bedside Glucose 256 H 357 H 422 *H Anion Gap 22 H Basophils # 0.0 Basophils % 0.7 Blood Urea Nitrogen 49 H Calcium Level 6.4 L Carbon Dioxide Level 24 Chloride Level 94 L Creatinine 6.74 H Eosinophils # 0.6 H Eosinophils % 10.0 H Glucose Level 339 #H Hematocrit 27.3 L Hemoglobin 8.6 L Lymphocytes # 0.9 Lymphocytes % 15.6 Mean Corpuscular Hemoglobin 30.0 Mean Corpuscular Hemoglobin Concent 31.5 L Mean Corpuscular Volume 95.1 Mean Platelet Volume 11.6 H Monocytes # 0.7 Monocytes % 12.2 H Neutrophils # 3.4 Neutrophils % 61.1 Nucleated Red Blood Cells # 0.0 Nucleated Red Blood Cells % 0.0 Platelet Count 191 Potassium Level 5.3 H Red Blood Count 2.87 L Red Cell Distribution Width 14.6 H Sodium Level 135 White Blood Count 5.5 Test 08/29/16 17:30 08/29/16 18:42 Glucose Level 328 H Bedside Glucose 318 H Medications Medications Current Medications Ondansetron HCl (Zofran Inj) 4 mg Q6H PRN IV NAUSEA AND/OR VOMITING; Start 08/21 at 05:00 Diphenhydramine HCl (Benadryl) 25 mg Q6H PRN IV ITCHING Last administered on 17:11; Admin Dose 25 MG; Start 08/21/16 at 05:00 Aspirin (Halfprin) 81 mg DAILY PO Last administered on 08/29/16 10:01; Admin Dose 81 MG; Start 08/21/16 at 10:30 Atorvastatin Calcium (Lipitor) 80 mg QHS PO Last administered on 08/28/16 22: 30; Admin Dose 80 MG; Start 08/21/16 at 21:00 Clonidine (Catapres) 0.1 mg Q6 PO Last administered on 08/29/16 17:41; Admin Dose 0.1 MG; Start 08/21/16 at 12:00 Diphenhydramine HCl (Benadryl) 50 mg Q6 PRN PO ITCHING; Start 08/21/16 at 10:30 Docusate Sodium (Colace) 100 mg BID PO Last administered on 08/29/16 10:01; Admin Dose 100 MG; Start 08/21/16 at 10:30 Isosorbide Mononitrate (Imdur) 60 mg DAILY PO Last administered on 08/29/16 10 :01; Admin Dose 60 MG; Start 08/21/16 at 10:30 Lactobacillus Acidoph/Bulgaricus (Floranex) 1 tab TID PO Last administered on 12:59; Admin Dose 1 TAB; Start 08/21/16 at 13:00 Lisinopril (Zestril) 10 mg DAILY PO Last administered on 08/29/16 10:01; Admin Dose 10 MG; Start 08/21/16 at 10:30 Lorazepam (Ativan) 2 mg HS PO Last administered on 08/28/16 22:30; Admin Dose 2 MG; Start 08/21/16 at 21:00 Metoprolol Succinate (Toprol Xl) 50 mg BID PO Last administered on 08/29/16 10 :00; Admin Dose 50 MG; Start 08/21/16 at 10:30 Pramipexole (Mirapex) 0.25 mg HS PO Last administered on 08/27/16 20:19; Admin Dose 0.25 MG; Start 08/21/16 at 21:00 Prasugrel (Effient) 10 mg DAILY PO Last administered on 08/29/16 12:59; Admin Dose 10 MG; Start 08/21/16 at 10:30 Diphenhydramine HCl (Benadryl) 50 mg PRN PRN IV GIVE PRIOR TO EACH HD Last administered on 08/28/16 11:09; Admin Dose 50 MG; Start 08/21/16 at 12:00 Lorazepam (Ativan) 1 mg PRN PRN IV PRIOR TO EACH HD Last administered on 11:09; Admin Dose 1 MG; Start 08/21/16 at 12:30 Epoetin Fredy (Epogen (Esrd)) 10,000 units TuThSa@17 SC Last administered on 18:10; Admin Dose 10,000 UNITS; Start 08/21/16 at 17:00 Apixaban (Eliquis) 2.5 mg BID PO Last administered on 08/29/16 10:01; Admin Dose 2.5 MG; Start 08/21/16 at 21:00 Miscellaneous Information 1 ea NOTE XX ; Start 08/21/16 at 19:00 Glucose (Glutose) 15 gm Q15M PRN PO DECREASED GLUCOSE; Start 08/21/16 at 19:00 Glucose (Glutose) 22.5 gm Q15M PRN PO DECREASED GLUCOSE; Start 08/21/16 at 19:00 Dextrose (D50w Syringe) 25 ml Q15M PRN IV DECREASED GLUCOSE; Start 08/21/16 at 19:00 Dextrose (D50w Syringe) 50 ml Q15M PRN IV DECREASED GLUCOSE; Start 08/21/16 at 19:00 Glucagon (Glucagen) 1 mg Q15M PRN IM DECREASED GLUCOSE; Start 08/21/16 at 19:00 Glucose (Glutose) 15 gm Q15M PRN BUCCAL DECREASED GLUCOSE; Start 08/21/16 at 19: 00 Diphenhydramine HCl (Benadryl) 50 mg Q6H PRN IV SLEEP Last administered on 21:20; Admin Dose 50 MG; Start 08/21/16 at 21:00 Hydromorphone HCl (Dilaudid) 2 mg Q3H PRN IV PAIN Last administered on 19:54; Admin Dose 2 MG; Start 08/25/16 at 18:10 Gabapentin (Neurontin) 300 mg BID PO Last administered on 08/29/16 10:01; Admin Dose 300 MG; Start 08/27/16 at 13:30 ANGELINA CASTREJON Aug 29, 2016 20:02
[2016-08-29] MEDS: PRAMIPEXOLE 0.25 MG TAB PO SCH (21:00)
[2016-08-29] MEDS: LORAZEPAM 1 MG TAB PO SCH (23:04)
[2016-08-29] MEDS: ATORVASTATIN 80 MG TAB PO SCH (23:04)
[2016-08-30] VITALS (18 sets, daily range): BP systolic 104–176; BP diastolic 66–93; PULSE 72–85; RESP 18–19
[2016-08-30] MEDS: HYDROmorphONE 2 MG/ML SYG IV PRN ×6 (01:38→18:38)
[2016-08-30] MEDS: ACCUCHECK XX SCH ×5 (07:30→17:19)
[2016-08-30 08:09] LABS: ADD SCAN DIFF NO
[2016-08-30 08:15] LABS: BASOPHIL # 0.1 10^3/ul (0.0-0.1); BASOPHILS % 0.9 % (0.0-2.0); EOSINOPHILS # 0.7 10^3/ul (0.0-0.5); EOSINOPHILS % 10.3 % (0.0-7.0); HEMATOCRIT 27.2 % (42.0-52.0); HEMOGLOBIN 8.5 g/dl (14.0-18.0); LYMPHOCYTES # 0.9 10^3/ul (0.8-2.9); LYMPHOCYTES % 13.1 % (15.0-51.0); MEAN CORPUSCULAR HEMOGLOBIN 29.5 pg (29.0-33.0); MEAN CORPUSCULAR HGB CONC 31.3 g/dl (32.0-37.0); MEAN CORPUSCULAR VOLUME 94.4 fl (82.0-101.0); MEAN PLATELET VOLUME 11.3 fl (7.4-10.4); MONOCYTE # 0.8 10^3/ul (0.3-0.9); MONOCYTES % 11.8 % (0.0-11.0); NEUTROPHIL # 4.5 10^3/ul (1.6-7.5); NEUTROPHILS % 63.3 % (39.0-77.0); PLATELET COUNT 215 10^3/UL (140-415); RED BLOOD COUNT 2.88 10^6/ul (4.70-6.10)
[2016-08-30] MEDS: [UNRECOGNIZED DRUG - OTHER] SC SCH ×3 (08:15→17:17)
[2016-08-30 08:30] LABS: POTASSIUM 4.3 mmol/L (3.5-5.1)
[2016-08-30 08:33] LABS: CALCIUM 6.4 mg/dl (8.4-10.2); CREATININE 8.33 mg/dl (0.61-1.24)
[2016-08-30] MEDS: ASPIRIN (EC) 81 MG TAB PO SCH (08:39)
[2016-08-30] MEDS: PRASUGREL HYDROCHLORIDE 10 MG TABLET PO SCH (08:39)
[2016-08-30] MEDS: DOCUSATE SODIUM 100 MG CAP PO SCH (08:39)
[2016-08-30] MEDS: CALCIUM ACETATE 667 MG CAP PO SCH ×3 (08:39→17:18)
[2016-08-30] MEDS: GABAPENTIN 300 MG CAP PO SCH ×2 (08:39→12:23)
[2016-08-30] MEDS: METOPROLOL (XL) 50 MG TAB PO SCH (08:40)
[2016-08-30] MEDS: SEVELAMER 800 MG TAB PO SCH ×3 (08:40→17:18)
[2016-08-30] MEDS: APIXABAN 5 MG TABLET PO SCH (08:40)
[2016-08-30] MEDS: LACTOBACILLUS CHEW TAB PO SCH ×2 (08:40→12:23)
[2016-08-30] MEDS: ISOSORBIDE MONONITRATE(SR)60 MG TAB PO SCH (08:40)
[2016-08-30] MEDS: LISINOPRIL 10 MG TAB PO SCH (08:41)
[2016-08-30] MEDS: LORAZEPAM 2 MG INJ IV PRN (08:50)
[2016-08-30] MEDS: DIPHENHYDRAMINE 50 MG INJ IV PRN ×2 (08:54→16:34)
--- NOTE | 2016-08-30 12:25 | DS ---
Date/Time of Note Date/Time of Note DATE: 08/30/16 TIME: 12:23 Discharge Summary Admission/Discharge Info Admit Date/Time Aug 21, 2016 at 03:32 Discharge Date/Time 08/30/16 Final Diagnosis 1) coronary artery disease 2) diabetes 3) end stage renal failure 4) chronic pain syndrome Hx of Present Illness CP/pressure x 30min, radiates bilat jaw,neck,shoulders, less w/ ntg x3, asa HPI This a 51-year-old dialysis patient who is here for chest pain. The patient states she has had 3 prior myocardial infarctions since his last myocardial infarction was in April requiring stent placement. Patient states that 30 minutes prior to arrival the patient developed substernal chest pressure with radiation to both of the shoulders and to his neck and jaw. Some mild shortness of breath no diarrhea occasions or syncope. He states this is exactly like prior anginal episodes when he has heart attack. He states that the care facility gave him 3 nitroglycerin sublingual the first 1 did not think the second 2 helped. He also received aspirin p.o. patient states that his pain is mild currently ROS All systems reviewed and are negative except as per history of present illness. Medications Home Meds Active Scripts [Vancomycin Oral Syringe] 50 MG/ML SOLN No Conflict Check, 125 MG PO Q6 for 10 Days Prov:ANGELINA CASTREJON 07/01/16 Lactobacillus Acidoph/Bulgaricus* (Floranex*) 1 Each Tablet, 1 TAB PO TID for 30 Days, TAB Prov:ANGELINA CASTREJON 07/01/16 Clonidine Hcl* (Clonidine Hcl*) 0.1 Mg Tab, 0.1 MG PO Q6 for 30 Days, TAB Prov:ANGELINA CASTREJON 07/01/16 Hydromorphone Hcl* (Dilaudid*) 2 Mg Tablet, 2 MG PO Q6H Y for PAIN LEVEL 6-10, # 14 TAB Prov:PEDRO BENSON 05/31/16 Prasugrel Hydrochloride* (Effient*) 10 Mg Tablet, 10 MG PO DAILY for 30 Days, TAB Prov:PEDRO BENSON 05/01/16 Isosorbide Mononitrate* (Isosorbide Mononitrate*) 60 Mg Tab.er.24h, 60 MG PO DAILY for 30 Days Prov:PEDRO BENSON 05/01/16 Reported Medications Pramipexole* (Pramipexole*) 0.25 Mg Tablet, 0.25 MG PO HS, TAB 05/15/16 Lisinopril* (Zestril*) 10 Mg Tablet, 10 MG PO DAILY, #30 TAB 05/15/16 Insulin Lispro (Humalog) 100 Unit/1 Ml Cartridge, 0 SQ PT HAS PUMP 05/15/16 Sevelamer Hcl* (Renagel*) 800 Mg Tablet, 1600 MG PO WITH MEALS, TAB 01/14/16 Calcium Acetate* (Calcium Acetate*) 667 Mg Capsule, 1334 MG PO WITH MEALS, #60 CAP 01/14/16 Aspirin* (Aspirin* EC) 81 Mg Tablet.dr, 81 MG PO DAILY, TAB 12/21/15 Lorazepam* (Ativan*) 2 Mg Tablet, 2 MG PO HS, #30 TAB 12/21/15 Atorvastatin* (Atorvastatin*) 80 Mg Tablet, 80 MG PO QHS, #30 TAB 07/15/15 Diphenhydramine Hcl* (Benadryl*) 50 Mg Cap, 50 MG PO Q6 Y for ITCHING, CAP 07/15/15 Docusate Sodium* (Docusate Sodium*) 100 Mg Capsule, 100 MG PO BID, #60 CAP 07/15/15 Metoprolol Succinate* (Toprol XL*) 50 Mg Tab.er.24h, 50 MG PO BID, TAB PT DOES NOT TAKE ON SAT 07/09/14 Allergies Allergies: Coded Allergies: adhesive (Verified Allergy, Intermediate, 05/15/16) (+)itchiness/rash azithromycin (Verified Allergy, Intermediate, RASH, 05/15/16) erythromycin base (Verified Allergy, Intermediate, CRAMPS, 05/15/16) codeine (Verified Allergy, Mild, ABD. CRAMPS, 05/15/16) morphine (Verified Allergy, Unknown, 05/15/16) Hospital Course Patient comes in with acute myocardial infarction and was treated with PCI with stent. Patient was monitored for his diabetes and continued to receive hemodialysis for end stage renal disease. Once felt to be stable, he was discharged to a [facility] for further treatment. Assessment/Plan - Chest pain in patient with coronary artery disease and history of stent placement. Dr. Stephen is following in cardiology consultation. S/P LHC, [employer] distally at the edge of previous stent. Successful [employer] with PCI. S/p Successful Right SFA and pop DCB with Zilver PTX stent placement by Dr Stephen on . Continue aspirin and Effient. - End-stage renal disease, hemodialysis dependent. Dr. Hubbard is following in nephrology consultation. - Diabetes mellitus type 1. Continue insulin management with insulin pump. Dr. Haddad is following an endocrinology consultation - Peripheral arterial disease, status post vascular interventions at previous admission. Continued on Eliquis. Dr. Byrnes is following in vascular surgery consultation. - Anemia of chronic disease, continue Epogen. Anticipate discharge to [facility] facility after hemodialysis tomorrow. Further recommendations based on clinical course. Plan of care discussed with Dr. Rosales. Home Meds Active Scripts [Vancomycin Oral Syringe] 50 MG/ML SOLN No Conflict Check, 125 MG PO Q6 for 10 Days Prov:ANGELINA CASTREJON 07/01/16 Lactobacillus Acidoph/Bulgaricus* (Floranex*) 1 Each Tablet, 1 TAB PO TID for 30 Days, TAB Prov:ANGELINA CASTREJON 07/01/16 Clonidine Hcl* (Clonidine Hcl*) 0.1 Mg Tab, 0.1 MG PO Q6 for 30 Days, TAB Prov:ANGELINA CASTREJON 07/01/16 Hydromorphone Hcl* (Dilaudid*) 2 Mg Tablet, 2 MG PO Q6H Y for PAIN LEVEL 6-10, # 14 TAB Prov:PEDRO BENSON 05/31/16 Prasugrel Hydrochloride* (Effient*) 10 Mg Tablet, 10 MG PO DAILY for 30 Days, TAB Prov:PEDRO BENSON 05/01/16 Isosorbide Mononitrate* (Isosorbide Mononitrate*) 60 Mg Tab.er.24h, 60 MG PO DAILY for 30 Days Prov:PEDRO BENSON 05/01/16 Reported Medications Pramipexole* (Pramipexole*) 0.25 Mg Tablet, 0.25 MG PO HS, TAB 05/15/16 Lisinopril* (Zestril*) 10 Mg Tablet, 10 MG PO DAILY, #30 TAB 05/15/16 Insulin Lispro (Humalog) 100 Unit/1 Ml Cartridge, 0 SQ PT HAS PUMP 05/15/16 Sevelamer Hcl* (Renagel*) 800 Mg Tablet, 1600 MG PO WITH MEALS, TAB 01/14/16 Calcium Acetate* (Calcium Acetate*) 667 Mg Capsule, 1334 MG PO WITH MEALS, #60 CAP 01/14/16 Aspirin* (Aspirin* EC) 81 Mg Tablet.dr, 81 MG PO DAILY, TAB 12/21/15 Lorazepam* (Ativan*) 2 Mg Tablet, 2 MG PO HS, #30 TAB 12/21/15 Atorvastatin* (Atorvastatin*) 80 Mg Tablet, 80 MG PO QHS, #30 TAB 07/15/15 Diphenhydramine Hcl* (Benadryl*) 50 Mg Cap, 50 MG PO Q6 Y for ITCHING, CAP 07/15/15 Docusate Sodium* (Docusate Sodium*) 100 Mg Capsule, 100 MG PO BID, #60 CAP 07/15/15 Metoprolol Succinate* (Toprol XL*) 50 Mg Tab.er.24h, 50 MG PO BID, TAB PT DOES NOT TAKE ON PARKER ELIZABETH SAT 07/09/14 Pending Labs Laboratory Tests Test 08/29/16 17:16 08/29/16 17:30 08/29/16 18:42 08/29/16 20:25 Bedside Glucose 422mg/dL (70-220) 318mg/dL (70-220) 219mg/dL (70-220) Glucose Level 328mg/dl (70-220) Test 08/29/16 23:12 08/30/16 05:55 08/30/16 09:03 08/30/16 11:04 Bedside Glucose 146mg/dL (70-220) 127mg/dL (70-220) 172mg/dL (70-220) Anion Gap 25 (8-16) Basophils # 0.110^3/ul (0.0-0.1) Basophils % 0.9% (0.0-2.0) Blood Urea Nitrogen 63mg/dl (7-20) Calcium Level 6.4mg/dl (8.4-10.2) Carbon Dioxide Level 22mmol/L (21-31) Chloride Level 95mmol/L (97-110) Creatinine 8.33mg/dl (0.61-1.24) Eosinophils # 0.710^3/ul (0.0-0.5) Eosinophils % 10.3% (0.0-7.0) Glucose Level 76mg/dl (70-220) Hematocrit 27.2% (42.0-52.0) Hemoglobin 8.5g/dl (14.0-18.0) Lymphocytes # 0.910^3/ul (0.8-2.9) Lymphocytes % 13.1% (15.0-51.0) Mean Corpuscular Hemoglobin 29.5pg (29.0-33.0) Mean Corpuscular Hemoglobin Concent 31.3g/dl (32.0-37.0) Mean Corpuscular Volume 94.4fl (82.0-101.0) Mean Platelet Volume 11.3fl (7.4-10.4) Monocytes # 0.810^3/ul (0.3-0.9) Monocytes % 11.8% (0.0-11.0) Neutrophils # 4.510^3/ul (1.6-7.5) Neutrophils % 63.3% (39.0-77.0) Nucleated Red Blood Cells # 0.010^3/ul (0.0-0.0) Nucleated Red Blood Cells % 0.0/100WBC (0.0-0.0) Platelet Count 09958^3/UL (140-415) Potassium Level 4.3mmol/L (3.5-5.1) Red Blood Count 2.8810^6/ul (4.70-6.10) Red Cell Distribution Width 15.0% (11.5-14.5) Sodium Level 138mmol/L (135-144) White Blood Count 7.010^3/ul (4.8-10.8) SHANTE SALDAÑA Aug 30, 2016 12:25
[2016-08-30] MEDS: PATIROMER CALCIUM SORBITEX 16.8 GM PKT PO SCH (12:41)
--- NOTE | 2016-08-30 14:38 | CONS ---
Date/Time of Note Date/Time of Note DATE: 08/30/16 TIME: 14:34 Assessment/Plan Assessment/Plan Additional Assessment/Plan 1. ESRD , he is on dialysis T T S .s/p hd this am and stable 2. cad s/p ami/ s/p stent now on medical rx 3. HTN : stable 4. Type 1 DM : on insulin 5. PAD : stable 6. Hyperkalemia , he is on V[place]/ k wnl pt being dc to [facility] today Consultation Date/Type/Reason Admit Date/Time Aug 21, 2016 at 03:32 Initial Consult Date 08/21/16 Type of Consultation: renal Referring Provider: WILMER RODRIGUEZ MD 24 HR Interval Summary Free Text/Dictation a little weak but generally better. no cp or sob. had hd this am Exam/Review of Systems Vital Signs Vitals Vital Signs Date Time Temp Pulse Resp B/P Pulse Ox O2 Delivery O2 Flow Rate FiO2 08/30/16 12:32 83 08/30/16 11:53 98.0 18 111/75 96 Intake and Output 08/29/16 08/29/16 08/30/16 15:00 23:00 07:00 Intake Total 450 ml Balance 450 ml Exam Constitutional: alert, oriented, well developed Psych: no complaints Head: atraumatic, normocephalic Eyes: nl conjunctiva ENMT: nl external ears & nose Neck: non-tender Respiratory: clear to auscultation, normal air movement Cardiovascular: edema, nl pulses, regular rate and rhythm Gastrointestinal: non-tender, soft Results Result Diagram: 08/30/16 0555 08/30/16 0555 Results 24 hrs Laboratory Tests Test 08/29/16 17:16 08/29/16 17:30 08/29/16 18:42 08/29/16 20:25 Bedside Glucose 422 *H 318 H 219 Glucose Level 328 H Test 08/29/16 23:12 08/30/16 05:55 08/30/16 09:03 08/30/16 11:04 Bedside Glucose 146 127 172 Anion Gap 25 H Basophils # 0.1 Basophils % 0.9 Blood Urea Nitrogen 63 H Calcium Level 6.4 L Carbon Dioxide Level 22 Chloride Level 95 L Creatinine 8.33 H Eosinophils # 0.7 H Eosinophils % 10.3 H Glucose Level 76 # Hematocrit 27.2 L Hemoglobin 8.5 L Lymphocytes # 0.9 Lymphocytes % 13.1 L Mean Corpuscular Hemoglobin 29.5 Mean Corpuscular Hemoglobin Concent 31.3 L Mean Corpuscular Volume 94.4 Mean Platelet Volume 11.3 H Monocytes # 0.8 Monocytes % 11.8 H Neutrophils # 4.5 Neutrophils % 63.3 Nucleated Red Blood Cells # 0.0 Nucleated Red Blood Cells % 0.0 Platelet Count 215 Potassium Level 4.3 Red Blood Count 2.88 L Red Cell Distribution Width 15.0 H Sodium Level 138 White Blood Count 7.0 # Test 08/30/16 12:16 08/30/16 14:19 Bedside Glucose 205 145 Medications Medications Current Medications Ondansetron HCl (Zofran Inj) 4 mg Q6H PRN IV NAUSEA AND/OR VOMITING; Start 08/21 at 05:00 Diphenhydramine HCl (Benadryl) 25 mg Q6H PRN IV ITCHING Last administered on 08:54; Admin Dose 25 MG; Start 08/21/16 at 05:00 Aspirin (Halfprin) 81 mg DAILY PO Last administered on 08/30/16 08:39; Admin Dose 81 MG; Start 08/21/16 at 10:30 Atorvastatin Calcium (Lipitor) 80 mg QHS PO Last administered on 08/29/16 23: 04; Admin Dose 80 MG; Start 08/21/16 at 21:00 Clonidine (Catapres) 0.1 mg Q6 PO Last administered on 08/29/16 17:41; Admin Dose 0.1 MG; Start 08/21/16 at 12:00 Diphenhydramine HCl (Benadryl) 50 mg Q6 PRN PO ITCHING; Start 08/21/16 at 10:30 Docusate Sodium (Colace) 100 mg BID PO Last administered on 08/30/16 08:39; Admin Dose 100 MG; Start 08/21/16 at 10:30 Isosorbide Mononitrate (Imdur) 60 mg DAILY PO Last administered on 08/29/16 10 :01; Admin Dose 60 MG; Start 08/21/16 at 10:30 Lactobacillus Acidoph/Bulgaricus (Floranex) 1 tab TID PO Last administered on 12:23; Admin Dose 1 TAB; Start 08/21/16 at 13:00 Lisinopril (Zestril) 10 mg DAILY PO Last administered on 08/29/16 10:01; Admin Dose 10 MG; Start 08/21/16 at 10:30 Lorazepam (Ativan) 2 mg HS PO Last administered on 08/29/16 23:04; Admin Dose 2 MG; Start 08/21/16 at 21:00 Metoprolol Succinate (Toprol Xl) 50 mg BID PO Last administered on 08/29/16 23 :05; Admin Dose 50 MG; Start 08/21/16 at 10:30 Pramipexole (Mirapex) 0.25 mg HS PO Last administered on 08/27/16 20:19; Admin Dose 0.25 MG; Start 08/21/16 at 21:00 Prasugrel (Effient) 10 mg DAILY PO Last administered on 08/30/16 08:39; Admin Dose 10 MG; Start 08/21/16 at 10:30 Diphenhydramine HCl (Benadryl) 50 mg PRN PRN IV GIVE PRIOR TO EACH HD Last administered on 08/28/16 11:09; Admin Dose 50 MG; Start 08/21/16 at 12:00 Lorazepam (Ativan) 1 mg PRN PRN IV PRIOR TO EACH HD Last administered on 08:50; Admin Dose 1 MG; Start 08/21/16 at 12:30 Epoetin Fredy (Epogen (Esrd)) 10,000 units TuThSa@17 SC Last administered on 18:10; Admin Dose 10,000 UNITS; Start 08/21/16 at 17:00 Apixaban (Eliquis) 2.5 mg BID PO Last administered on 08/30/16 08:40; Admin Dose 2.5 MG; Start 08/21/16 at 21:00 Miscellaneous Information 1 ea NOTE XX ; Start 08/21/16 at 19:00 Glucose (Glutose) 15 gm Q15M PRN PO DECREASED GLUCOSE; Start 08/21/16 at 19:00 Glucose (Glutose) 22.5 gm Q15M PRN PO DECREASED GLUCOSE; Start 08/21/16 at 19:00 Dextrose (D50w Syringe) 25 ml Q15M PRN IV DECREASED GLUCOSE; Start 08/21/16 at 19:00 Dextrose (D50w Syringe) 50 ml Q15M PRN IV DECREASED GLUCOSE; Start 08/21/16 at 19:00 Glucagon (Glucagen) 1 mg Q15M PRN IM DECREASED GLUCOSE; Start 08/21/16 at 19:00 Glucose (Glutose) 15 gm Q15M PRN BUCCAL DECREASED GLUCOSE; Start 08/21/16 at 19: 00 Diphenhydramine HCl (Benadryl) 50 mg Q6H PRN IV SLEEP Last administered on 21:20; Admin Dose 50 MG; Start 08/21/16 at 21:00 Hydromorphone HCl (Dilaudid) 2 mg Q3H PRN IV PAIN Last administered on 12:41; Admin Dose 2 MG; Start 08/25/16 at 18:10 Gabapentin (Neurontin) 300 mg TID PO Last administered on 08/30/16 12:23; Admin Dose 300 MG; Start 08/29/16 at 21:00 VITA REBOLLEDO MD Aug 30, 2016 14:37
[2016-08-30] MEDS: EPOETIN 10000 UNITS/1 ML INJ (ESRD) SC SCH (18:39)
--- NOTE | 2016-08-30 18:59 | CONS ---
Date/Time of Note Date/Time of Note DATE: 08/30/16 TIME: 18:58 Consult Date/Type/Reason Admit Date/Time Aug 21, 2016 at 03:32 Initial Consult Date 08/21/16 Type of Consultation: renal Ordering Provider: WILMER RODRIGUEZ MD Objective Vital Signs Date Time Temp Pulse Resp B/P Pulse Ox O2 Delivery O2 Flow Rate FiO2 08/30/16 16:26 85 08/30/16 16:03 98.0 19 123/75 96 Intake and Output 08/29/16 08/29/16 08/30/16 15:00 23:00 07:00 Intake Total 450 ml Balance 450 ml Results/Medications Result Diagram: 08/30/16 0555 08/30/16 0555 Results 24 hrs Laboratory Tests Test 08/29/16 20:25 08/29/16 23:12 08/30/16 05:55 08/30/16 09:03 Bedside Glucose 219 146 127 Anion Gap 25 H Basophils # 0.1 Basophils % 0.9 Blood Urea Nitrogen 63 H Calcium Level 6.4 L Carbon Dioxide Level 22 Chloride Level 95 L Creatinine 8.33 H Eosinophils # 0.7 H Eosinophils % 10.3 H Glucose Level 76 # Hematocrit 27.2 L Hemoglobin 8.5 L Lymphocytes # 0.9 Lymphocytes % 13.1 L Mean Corpuscular Hemoglobin 29.5 Mean Corpuscular Hemoglobin Concent 31.3 L Mean Corpuscular Volume 94.4 Mean Platelet Volume 11.3 H Monocytes # 0.8 Monocytes % 11.8 H Neutrophils # 4.5 Neutrophils % 63.3 Nucleated Red Blood Cells # 0.0 Nucleated Red Blood Cells % 0.0 Platelet Count 215 Potassium Level 4.3 Red Blood Count 2.88 L Red Cell Distribution Width 15.0 H Sodium Level 138 White Blood Count 7.0 # Test 08/30/16 11:04 08/30/16 12:16 08/30/16 14:19 08/30/16 15:43 Bedside Glucose 172 205 145 119 Test 08/30/16 17:17 Bedside Glucose 85 Medications Current Medications Ondansetron HCl (Zofran Inj) 4 mg Q6H PRN IV NAUSEA AND/OR VOMITING; Start 08/21 at 05:00 Diphenhydramine HCl (Benadryl) 25 mg Q6H PRN IV ITCHING Last administered on 16:34; Admin Dose 25 MG; Start 08/21/16 at 05:00 Aspirin (Halfprin) 81 mg DAILY PO Last administered on 08/30/16 08:39; Admin Dose 81 MG; Start 08/21/16 at 10:30 Atorvastatin Calcium (Lipitor) 80 mg QHS PO Last administered on 08/29/16 23: 04; Admin Dose 80 MG; Start 08/21/16 at 21:00 Clonidine (Catapres) 0.1 mg Q6 PO Last administered on 08/29/16 17:41; Admin Dose 0.1 MG; Start 08/21/16 at 12:00 Diphenhydramine HCl (Benadryl) 50 mg Q6 PRN PO ITCHING; Start 08/21/16 at 10:30 Docusate Sodium (Colace) 100 mg BID PO Last administered on 08/30/16 08:39; Admin Dose 100 MG; Start 08/21/16 at 10:30 Isosorbide Mononitrate (Imdur) 60 mg DAILY PO Last administered on 08/29/16 10 :01; Admin Dose 60 MG; Start 08/21/16 at 10:30 Lactobacillus Acidoph/Bulgaricus (Floranex) 1 tab TID PO Last administered on 12:23; Admin Dose 1 TAB; Start 08/21/16 at 13:00 Lisinopril (Zestril) 10 mg DAILY PO Last administered on 08/29/16 10:01; Admin Dose 10 MG; Start 08/21/16 at 10:30 Lorazepam (Ativan) 2 mg HS PO Last administered on 08/29/16 23:04; Admin Dose 2 MG; Start 08/21/16 at 21:00 Metoprolol Succinate (Toprol Xl) 50 mg BID PO Last administered on 08/29/16 23 :05; Admin Dose 50 MG; Start 08/21/16 at 10:30 Pramipexole (Mirapex) 0.25 mg HS PO Last administered on 08/27/16 20:19; Admin Dose 0.25 MG; Start 08/21/16 at 21:00 Prasugrel (Effient) 10 mg DAILY PO Last administered on 08/30/16 08:39; Admin Dose 10 MG; Start 08/21/16 at 10:30 Diphenhydramine HCl (Benadryl) 50 mg PRN PRN IV GIVE PRIOR TO EACH HD Last administered on 08/28/16 11:09; Admin Dose 50 MG; Start 08/21/16 at 12:00 Lorazepam (Ativan) 1 mg PRN PRN IV PRIOR TO EACH HD Last administered on 08:50; Admin Dose 1 MG; Start 08/21/16 at 12:30 Epoetin Fredy (Epogen (Esrd)) 10,000 units TuThSa@17 SC Last administered on 18:39; Admin Dose 10,000 UNITS; Start 08/21/16 at 17:00 Apixaban (Eliquis) 2.5 mg BID PO Last administered on 08/30/16 08:40; Admin Dose 2.5 MG; Start 08/21/16 at 21:00 Miscellaneous Information 1 ea NOTE XX ; Start 08/21/16 at 19:00 Glucose (Glutose) 15 gm Q15M PRN PO DECREASED GLUCOSE; Start 08/21/16 at 19:00 Glucose (Glutose) 22.5 gm Q15M PRN PO DECREASED GLUCOSE; Start 08/21/16 at 19:00 Dextrose (D50w Syringe) 25 ml Q15M PRN IV DECREASED GLUCOSE; Start 08/21/16 at 19:00 Dextrose (D50w Syringe) 50 ml Q15M PRN IV DECREASED GLUCOSE; Start 08/21/16 at 19:00 Glucagon (Glucagen) 1 mg Q15M PRN IM DECREASED GLUCOSE; Start 08/21/16 at 19:00 Glucose (Glutose) 15 gm Q15M PRN BUCCAL DECREASED GLUCOSE; Start 08/21/16 at 19: 00 Diphenhydramine HCl (Benadryl) 50 mg Q6H PRN IV SLEEP Last administered on 21:20; Admin Dose 50 MG; Start 08/21/16 at 21:00 Hydromorphone HCl (Dilaudid) 2 mg Q3H PRN IV PAIN Last administered on 18:38; Admin Dose 2 MG; Start 08/25/16 at 18:10 Gabapentin (Neurontin) 300 mg TID PO Last administered on 3/18/17at 12:23; Admin Dose 300 MG; Start 08/29/16 at 21:00 Assessment/Plan Chief Complaint/Hosp Course Patient is my patient from out pt, He has last CA sept with [employer] s/p PCi by me at [facility]. He has ESRD and PAD with plan to open his Right SFA out pt.came in with CP, stable angina. trop neg x 2. Echo with normal wall motion and normal function. EKG non ischemic. Problems: Additional Assessment/Plan Stable d/c to [place] today med mx CYNDIE GARCIA MD Aug 30, 2016 18:58
== END 2016-08-30 19:06 | DRG 246 ==
LOC: E/R 01:19 → MS4 03:32
PROVIDERS: ADMIT Internal Medicine; ATTEND Internal Medicine
PROC: 5A1D60Z (ICD-10-PCS; 2016-08-21)
PROC: 027035Z Dilation of Coronary Artery, One Artery with Two Drug-eluting Intraluminal Devices, Percutaneous Approach (ICD-10-PCS; principal; 2016-08-25)
PROC: 047K341 Dilation of Right Femoral Artery with Drug-eluting Intraluminal Device, using Drug-Coated Balloon, Percutaneous Approach (ICD-10-PCS; 2016-08-25)
PROC: 047M3Z1 Dilation of Right Popliteal Artery using Drug-Coated Balloon, Percutaneous Approach (ICD-10-PCS; 2016-08-25)
PROC: 4A023N7 Measurement of Cardiac Sampling and Pressure, Left Heart, Percutaneous Approach (ICD-10-PCS; 2016-08-25)
PROC: B211YZZ Fluoroscopy of Multiple Coronary Arteries using Other Contrast (ICD-10-PCS; 2016-08-25)
DX: I25.110 Atherosclerotic heart disease of native coronary artery with unstable angina pectoris (principal); N18.6 End stage renal disease; I12.0 Hypertensive chronic kidney disease with stage 5 chronic kidney disease or end stage renal disease; T82.855A Stenosis of coronary artery stent, initial encounter; I25.82 Chronic total occlusion of coronary artery; I70.92 Chronic total occlusion of artery of the extremities; N39.0 Urinary tract infection, site not specified; E10.21 Type 1 diabetes mellitus with diabetic nephropathy; E10.319 Type 1 diabetes mellitus with unspecified diabetic retinopathy without macular edema; I70.223 Atherosclerosis of native arteries of extremities with rest pain, bilateral legs; E10.22 Type 1 diabetes mellitus with diabetic chronic kidney disease; E10.43 Type 1 diabetes mellitus with diabetic autonomic (poly)neuropathy; E87.5 Hyperkalemia; D63.8 Anemia in other chronic diseases classified elsewhere; D63.1 Anemia in chronic kidney disease; G89.29 Other chronic pain; Y83.8 Other surgical procedures as the cause of abnormal reaction of the patient, or of later complication, without mention of misadventure at the time of the procedure; Y92.019 Unspecified place in single-family (private) house as the place of occurrence of the external cause; I25.2 Old myocardial infarction; Z79.4 Long term (current) use of insulin; Z99.2 Dependence on renal dialysis; Z87.891 Personal history of nicotine dependence
CPT/HCPCS: 36415; 71010; 75630; 80048; 80053; 80061; 82947; 82962; 83036; 83735; 84100; 84484; 85025; 85610; 85730; 90935; 93005; 93306; 93458; 96374; 96375; 96376; C1714; C1725; C1760; C1769; C1874; C2623; C9600; J0360; J0690; J0886; J1170; J1200; J1644; J1815; J2060; J2175; J2405; J2710; J3010; J7030; Q9967

== ENCOUNTER 2016-09-28 02:38 | Inpatient (IN) | payer MEDICARE, OTHER ==
[2016-09-28] VITALS (51 sets, daily range): BP systolic 74–172; BP diastolic 45–122; PULSE 72–94; RESP 18–35; TEMP 99.8; Ht 182.9 cm; Wt 77.0 kg
[~2016-09-28] VITALS: Ht 182.9 cm; Wt 77.0 kg
--- NOTE | 2016-09-28 03:45 | RADRPT ---
PROCEDURE: Left knee x-ray CLINICAL INDICATION: Pain TECHNIQUE: AP, lateral and oblique views of the left knee were obtained. COMPARISON: Not available. FINDINGS: No fracture or dislocation is seen. No significant appearing arthritic changes are seen. Vascular s tent is seen in the medial posterior mid left thigh. Arterial calcification is seen. IMPRESSION: No acute abnormality seen. Arterial calcification and vascular stent. Please see above. RPTAT: HJES .Arturo Cosby MD, MD Date Time Electronically viewed and signed by .Arturo Cosby MD, MD on 09/28/2016 03:45 .S/
[2016-09-28] MEDS ORDERED: HYDROmorphONE 1 MG/ML SYG IM SCH (03:53)
--- NOTE | 2016-09-28 03:56 | ERD ---
ER Documentation Chief Complaint Date/Time DATE: 09/28/16 TIME: 03:52 Chief Complaint Pt reports twisting knee at 1900. PT is blind and had mechanical fall HPI This [age]-year-old male presents to the emergency room for evaluation of left- sided knee pain. This patient states that he twisted his knee around 7 PM tonight and states he had a mechanical fall. The patient denies any head injury loss of consciousness. He does state that he is having pain in his left knee, and describes as a sharp pain. The patient states that the only medication that works for him is Dilaudid. ROS All systems reviewed and are negative except as per history of present illness. Medications Home Meds Active Scripts [Vancomycin Oral Syringe] 50 MG/ML SOLN No Conflict Check, 125 MG PO Q6 for 10 Days Prov:ANGELINA CASTREJON 07/01/16 Lactobacillus Acidoph/Bulgaricus* (Floranex*) 1 Each Tablet, 1 TAB PO TID for 30 Days, TAB Prov:ANGELINA CASTREJON 07/01/16 Clonidine Hcl* (Clonidine Hcl*) 0.1 Mg Tab, 0.1 MG PO Q6 for 30 Days, TAB Prov:ANGELINA CASTREJON 07/01/16 Hydromorphone Hcl* (Dilaudid*) 2 Mg Tablet, 2 MG PO Q6H Y for PAIN LEVEL 6-10, # 14 TAB Prov:PEDRO BENSON 05/31/16 Prasugrel Hydrochloride* (Effient*) 10 Mg Tablet, 10 MG PO DAILY for 30 Days, TAB Prov:PEDRO BENSON 05/01/16 Isosorbide Mononitrate* (Isosorbide Mononitrate*) 60 Mg Tab.er.24h, 60 MG PO DAILY for 30 Days Prov:PEDRO BENSON 05/01/16 Reported Medications Pramipexole* (Pramipexole*) 0.25 Mg Tablet, 0.25 MG PO HS, TAB 05/15/16 Lisinopril* (Zestril*) 10 Mg Tablet, 10 MG PO DAILY, #30 TAB 05/15/16 Insulin Lispro (Humalog) 100 Unit/1 Ml Cartridge, 0 SQ PT HAS PUMP 05/15/16 Sevelamer Hcl* (Renagel*) 800 Mg Tablet, 1600 MG PO WITH MEALS, TAB 01/14/16 Calcium Acetate* (Calcium Acetate*) 667 Mg Capsule, 1334 MG PO WITH MEALS, #60 CAP 01/14/16 Aspirin* (Aspirin* EC) 81 Mg Tablet.dr, 81 MG PO DAILY, TAB 12/21/15 Lorazepam* (Ativan*) 2 Mg Tablet, 2 MG PO HS, #30 TAB 12/21/15 Atorvastatin* (Atorvastatin*) 80 Mg Tablet, 80 MG PO QHS, #30 TAB 07/15/15 Diphenhydramine Hcl* (Benadryl*) 50 Mg Cap, 50 MG PO Q6 Y for ITCHING, CAP 07/15/15 Docusate Sodium* (Docusate Sodium*) 100 Mg Capsule, 100 MG PO BID, #60 CAP 07/15/15 Metoprolol Succinate* (Toprol XL*) 50 Mg Tab.er.24h, 50 MG PO BID, TAB PT DOES NOT TAKE ON SAT 07/09/14 Allergies Allergies: Coded Allergies: adhesive (Verified Allergy, Intermediate, 05/15/16) (+)itchiness/rash azithromycin (Verified Allergy, Intermediate, RASH, 05/15/16) erythromycin base (Verified Allergy, Intermediate, CRAMPS, 05/15/16) codeine (Verified Allergy, Mild, ABD. CRAMPS, 05/15/16) morphine (Verified Allergy, Unknown, 05/15/16) PMhx/Soc History of Surgery: Yes (right groin stent for aneurysm- 2 weeks ago) Anesthesia Reaction: No Hx 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 Disorder: No Hx Respiratory Disorders: No Hx Cardiac Disorders: Yes (heart failure, HTN) Hx Psychiatric Problems: Yes (anxiety) Hx Alcohol Use: No Hx Substance Use: No Hx Tobacco Use: Yes Smoking Status: Current every day smoker Physical Exam Vitals Vital Signs Date Time Temp Pulse Resp B/P Pulse Ox O2 Delivery O2 Flow Rate FiO2 09/28/16 02:47 99.9 95 16 227/111 99 Physical Exam Const: No acute distress Head: Atraumatic Eyes: Normal Conjunctiva ENT: Normal External Ears, Nose and Mouth. Neck: Full range of motion..~ No meningismus. Resp: Clear to auscultation bilaterally Cardio: Regular rate and rhythm, no murmurs Abd: Soft, non tender, non distended. Normal bowel sounds Skin: Catheter in the anterior chest wall, no petechiae or rashes Back: No midline or flank tenderness Ext: No cyanosis, or edema Neur: Awake and alert Psych: Normal Mood and Affect Procedures/MDM X-ray Knee 3V Interpreted by me: Bones: No fracture Joints: No dislocation Foreign body: None This [age]-year-old male presents to the emergency room for evaluation of left knee pain after a ground-level fall. The patient denies any other head injury loss of consciousness. When I evaluated this patient he did have tenderness to palpation on my examination of the left knee. No gross deformity was noted. This patient was a neurovascularly intact distal to the injury of the knee. X- ray was obtained which does not show any fractures or dislocations. This patient is requesting Dilaudid intravenously. I advised him that the Dilaudid is not indicated for knee sprain or strain. He states that he is on Dilantin chronically. I offered the patient a 1 mg of intramuscular Dilaudid, and he was asking for 15 mg of intravenous Benadryl. I told him it is not indicated, and he can have 1 mg of intramuscular Dilaudid due to the fact that he is chronically on narcotic medication. The patient seemed visibly upset by this. He stated that he wants a different doctor. The patient also states that he is going to "appeal my discharge". This patient is displaying drug-seeking behavior, and will be discharged at this time. This patient does have hypertension however no signs of chest pain, denies any chest pain or headache or nausea or vomiting. Patient had left knee wrapped in an Jim wrap Departure Diagnosis: Primary Impression: Knee pain Additional Impression: Chronic pain Condition: ÁLVARO Rhodes DO Sep 28, 2016 03:56
[2016-09-28] MEDS ORDERED: PROPOFOL 100 ML ONE (04:58)
[2016-09-28 05:00] LABS: ADD SCAN DIFF NO
[2016-09-28] MEDS ORDERED: hydrALAzine 20 MG INJ IV ONE (05:00)
[2016-09-28 05:08] LABS: BASOPHIL # 0.1 10^3/ul (0.0-0.1); BASOPHILS % 0.9 % (0.0-2.0); EOSINOPHILS # 0.3 10^3/ul (0.0-0.5); EOSINOPHILS % 3.6 % (0.0-7.0); HEMATOCRIT 40.1 % (42.0-52.0); HEMOGLOBIN 12.1 g/dl (14.0-18.0); LYMPHOCYTES # 1.2 10^3/ul (0.8-2.9); LYMPHOCYTES % 12.3 % (15.0-51.0); MEAN CORPUSCULAR HEMOGLOBIN 29.1 pg (29.0-33.0); MEAN CORPUSCULAR HGB CONC 30.2 g/dl (32.0-37.0); MEAN CORPUSCULAR VOLUME 96.4 fl (82.0-101.0); MEAN PLATELET VOLUME 11.2 fl (7.4-10.4); MONOCYTE # 0.8 10^3/ul (0.3-0.9); MONOCYTES % 8.4 % (0.0-11.0); NEUTROPHILS % 74.4 % (39.0-77.0); PLATELET COUNT 189 10^3/UL (140-415); RED BLOOD COUNT 4.16 10^6/ul (4.70-6.10); RED CELL DISTRIBUTION WIDTH 16.3 % (11.5-14.5); WHITE BLOOD COUNT 9.4 10^3/ul (4.8-10.8)
--- NOTE | 2016-09-28 05:12 | RADRPT ---
PROCEDURE: Chest. CLINICAL INDICATION: Chest pain. TECHNIQUE: Single frontal view of the chest was obtained. COMPARISON: 08/21/2016. FINDINGS: There is a left-sided Port-A-Cath in place. The cardiac silhouette is within normal limits. The ao rtic arch is unremarkable. There are increased interstitial markings bilaterally. Bilateral pleura l effusion. There is no pneumothorax. IMPRESSION: Moderate bilateral increased interstitial markings could represent interstitial edema or infiltrates , new compared with the prior study. .Etienne Carolina MD, MD Date Time Electronically viewed and signed by .Etienne Carolina MD, MD on 09/28/2016 05:12 .T/
[2016-09-28 05:14] LABS: INR 1.03; PROTIME 13.5 Sec (12.2-14.2); PT RATIO 1.1
[2016-09-28 05:16] LABS: CALCIUM 7.6 mg/dl (8.4-10.2); CREATININE 5.39 mg/dl (0.61-1.24); POTASSIUM 4.5 mmol/L (3.5-5.1)
[2016-09-28 05:21] LABS: Arterial Base Excess -7.6 mmol/L (-3.0-3); Arterial COHb 0.6 % (0.0-3.0); Arterial Fraction of Oxyhgb 97.7 % (93.0-99.0); Arterial HCO3 23.5 mmol/L (22.0-26.0); Arterial MetHb 0.4 % (0.0-1.5); Arterial Total Hemglobin 14.4 g/dl (12.0-18.0); MODE VENT - AC
[2016-09-28] MEDS ORDERED: PROPOFOL 100 ML IV STA (05:21)
[2016-09-28] MEDS ORDERED: LABETALOL HCL 20MG INJ IV ONE (05:30)
[2016-09-28 05:33] LABS: TROPONIN-I 0.145 ng/ml (0.00-0.12)
[2016-09-28] MEDS ORDERED: SOD CHLORIDE 0.9% 100 ML ONE (05:41)
[2016-09-28] MEDS ORDERED: IOHEXOL 100 ML ONE (05:41)
[2016-09-28 05:52] LABS: ADD UMIC YES; URINE BILIRUBIN (Dip) NEGATIVE (NEGATIVE); URINE BLOOD (Dip) TRACE (NEGATIVE); URINE COLOR LT. YELLOW (YELLOW); URINE GLUCOSE (Dip) >=1000 % (NEGATIVE); URINE KETONES (Dip) NEGATIVE (NEGATIVE); URINE LEUKOCYTE ESTERASE (Dip) NEGATIVE (NEGATIVE); URINE NITRITE (Dip) NEGATIVE (NEGATIVE); URINE TOTAL PROTEIN (Dip) 2+ (NEGATIVE); URINE UROBILINOGEN (Dip) 0.2 E.U./dL (0.1-1.0)
[2016-09-28] MEDS ORDERED: VANCOMYCIN 1 GM (PMX) 250 ML IVPB STA (05:56)
[2016-09-28] MEDS ORDERED: CEFEPIME 2GM/50 ML (PMX) 50 ML IVPB STA (05:56)
--- NOTE | 2016-09-28 05:56 | RADRPT ---
PROCEDURE: XR Chest. CLINICAL INDICATION: Respiratory failure TECHNIQUE: Portable single view of the chest COMPARISON: 08/21 FINDINGS: There has been interval placement of an endotracheal tube which appears in good position. Left ches t port is again seen in place. Multiple EKG lines overlying the patient. External pacer device ove rlies the lower left chest. There is new pulmonary vascular congestion with diffuse alveolar opacit y throughout both lung ding and increased interstitial markings which may be due to interstitial e munir. No large effusion is seen. No pneumothorax or pleural effusion. The stomach is slightly dis tended with air. IMPRESSION: New endotracheal tube in good position. Probable new congestive heart failure. Superimposed infect ious infiltrates are not excluded. RPTAT: [facility] Physician Myles Date Time Electronically viewed and signed by Kia Chavez Physician on 09/28/2016 05:56 VALENTÍN/
--- NOTE | 2016-09-28 05:59 | RADRPT ---
PROCEDURE: CT Brain without contrast. CLINICAL INDICATION: Altered mental status TECHNIQUE: Axial images from the skull base through the vertex without IV contrast. Multiplanar r eformatted images were made. Images were reviewed on a PACS workstation. The CTDIvol is 43.16 mGy and the DLP is to 720.23 mGycm. One or more of the following dose reduction techniques were used: a utomated exposure control, adjustment of the mA and/or kV according to patient size, or use of itera tive reconstruction technique. COMPARISON: None. FINDINGS: There is atrophy and chronic microvascular ischemic change. There is no evidence for acute territor ial infarction or intracranial hemorrhage. No mass or midline shift is seen. No intra or extra-axi al fluid collection is seen. Intracranial vascular calcification is seen. Minimal mucoperiosteal thickening of the sphenoid sinus. Right prosthesis is again seen. Some fluid is present in the viki opharynx. IMPRESSION: Atrophy and chronic microvascular ischemic changes. No definite acute abnormality. RPTAT: [facility] Physician Myles Date Time Electronically viewed and signed by Physician Myles on 09/28/2016 05:58 VALENTÍN/
[2016-09-28] MEDS ORDERED: ASPIRIN 325 MG TAB PO ONE (06:00)
[2016-09-28] MEDS ORDERED: INSULIN REGULAR 10 ML INJ IV ONE (06:00)
[2016-09-28] MEDS ORDERED: INSULIN REGULAR 10 ML INJ SC ONE (06:00)
[2016-09-28] MEDS ORDERED: ACETAMINOPHEN 650MG/20.3ML CUP PO PRN (06:00)
[2016-09-28 06:06] LABS: BACTERIA,URINE OCCASIONAL; SQUAMOUS EPITHELIAL CELL,UR RARE; URINE RBCS 0-2 /HPF (0)
[2016-09-28] MEDS ORDERED: GLUCOSE GEL 15 GRAM TUBE BUCCAL PRN (06:30)
[2016-09-28] MEDS ORDERED: DEXTROSE 50% 50 ML SYRINGE IV PRN ×3 (06:30→08:30)
[2016-09-28] MEDS ORDERED: GLUCAGON 1 MG INJ IM PRN (06:30)
[2016-09-28] MEDS ORDERED: GLUCOSE GEL 15 GRAM TUBE PO PRN ×2 (06:30)
--- NOTE | 2016-09-28 06:52 | RADRPT ---
PROCEDURE: CTA Chest CLINICAL INDICATION: Respiratory failure. Possible pulmonary embolus. TECHNIQUE: Thin section spiral CT images were obtained through the vasculature of the chest during administration of 100 cc of Isovue 350 contrast material. Multiplanar reconstructions and 3-D maxi mum intensity projection reconstructed images were performed. The images were reviewed on a PACS Whatever. The total exam CTDI equals 21.42 mGy, and the total exam DLP equals 905.37 mGy-cm. One or more of the following dose reduction techniques were used: automated exposure control, adjustmen t of the mA and/or kV according to patient size, or use of iterative reconstruction technique. COMPARISON: 02/26/2013 FINDINGS: There are new extensive alveolar opacities throughout the lung ding bilaterally with dense consoli dation dependently throughout both lung ding. Changes are most severe dependently and in the lower lobes. The heart size appears within normal limits. There is contrast reflux into the inferior ve na cava and hepatic veins suggesting poor right heart function. There is no evidence for pulmonary e mbolus or aortic dissection. Aortic and coronary artery calcification is seen. Tracheostomy tube a ppears in good position. Small bilateral pleural effusions. No pericardial effusion is seen. Ther e are large mediastinal nodes. Largest is a 1.8 cm subcarinal node. The kidneys may be slightly atr ophic. The stomach is markedly distended with air. IMPRESSION: No definite pulmonary embolus. Extensive bilateral alveolar infiltrates which may be due to infecti on or edema. Small effusions. Mediastinal adenopathy. Marked gastric distension with air. RPTAT: [facility] Physician Myles Date Time Electronically viewed and signed by Kia Chavez Physician on 09/28/2016 06:52 VALENTÍN/
[2016-09-28 06:56] LABS: INR 1.11; PROTIME 14.3 Sec (12.2-14.2); PT RATIO 1.1
[2016-09-28] MEDS ORDERED: MIDAZOLAM (DRIP) 50 mg/50 mL 50 ML IV STA (06:58)
[2016-09-28] MEDS ORDERED: ASPIRIN 300 MG SUPP PR ONE (07:00)
[2016-09-28 07:01] LABS: ALBUMIN 3.5 g/dl (3.3-4.9); ALBUMIN/GLOBULIN RATIO 1.16; BILIRUBIN,INDIRECT 0.2 mg/dl (0-1.1); BILIRUBIN,TOTAL 0.2 mg/dl (0.2-1.3); CALCIUM 6.6 mg/dl (8.4-10.2); CREATININE 5.42 mg/dl (0.61-1.24); POTASSIUM 4.8 mmol/L (3.5-5.1); TOTAL PROTEIN 6.5 g/dl (6.1-8.1)
[2016-09-28] MEDS ORDERED: INSULIN ASPART [NOVOLOG] 3 ML PEN SC SCH (08:00)
[2016-09-28] MEDS ORDERED: ACCU-CHEK XX SCH (08:30)
[2016-09-28] MEDS ORDERED: FAMOTIDINE 20 MG INJ IV SCH (09:00)
[2016-09-28] MEDS: ACCU-CHEK XX SCH ×15 (09:41→23:06)
[2016-09-28] MEDS: INSULIN HUMAN REGULAR 100 UNIT in SOD CHLORIDE 0.9% 99 ML IV SCH (09:47)
--- NOTE | 2016-09-28 10:12 | CONS ---
DATE OF ADMISSION: 09/28/2016 DATE OF CONSULTATION: 09/28/2016 NEPHROLOGY CONSULTATION REASON FOR CONSULTATION: ESRD management. HISTORY OF PRESENT ILLNESS: This is a 51-year-old male well known to this hospital who has had recu rrent admissions and is now admitted following flash pulmonary edema and emergent intubation early t his morning in the emergency room. The patient has known end-stage renal disease and is maintained on outpatient hemodialysis. He presented to the ER yesterday following a ground level fall at 1900 complaining of left knee pain . Initially his evaluation in the ER was unremarkable. Specifically, aside from his hypertension, his exam was negative. Pulse ox was 99% on room air. Following the evaluation for his knee, when he was about to be discharged, at approximately 4:15, he suddenly became short of breath, he became hypoxemic, diaphoretic, and on exam, he was noted to hav e diffuse crackles. Despite treating his hypertension with hydralazine, he became less responsive and ultimately was int ubated. A stat CT pulmonary angiogram was done which was negative for any pulmonary embolus, but he did have extensive bilateral alveolar infiltrates, probably consistent with fluid as opposed to infection. CT scan of the brain showed no acute abnormality, and he is currently intubated and sedated in the I CU on 100% FIO2. Electrocardiogram done at 0500 in the ER revealed sinus tachycardia with no acute ST-T wave changes. LABORATORY: Remarkable for normal white count of 9.4, hematocrit of 40.1, normal coags, and normal LFTs, aside from an elevated alkaline phosphatase, most likely due to renal osteodystrophy. Lactate was normal at 1.3. Sugars were out of controlled at 600 to 700, and I do not see any tropon in. PAST MEDICAL HISTORY: Please see full dictated problem list. ALLERGIES: 1. AZITHROMYCIN 2. CODEINE. 3. MORPHINE. HABITS: Tobacco: None. Alcohol: None. REVIEW OF SYSTEMS: Unobtainable as the patient is sedated. PHYSICAL EXAMINATION: GENERAL: The patient is sedated, intubated in the ICU. VITAL SIGNS: Temperature 99.8, blood pressure 140/90, heart rate 88 in sinus rhythm, respirations a re 20 on the vent, O2 saturation is 100% on an FIO2 of 100%. SKIN: Multiple tattoos but no new rashes or lesions. HEAD: Normocephalic. EYES: No erythema, no conjunctival erythema. PHARYNX: ET tube in place. NECK: JVP is not distended. LUNGS: Show rales at the lower lobes. HEART: S1, S2, regular rate and rhythm, no murmurs. ABDOMEN: Soft, nontender. EXTREMITIES: No cyanosis or clubbing. There is 1+ edema. He has a catheter in the chest. PROBLEM LIST: 1. Flash pulmonary edema requiring intubation and persistent elevated AA gradient: A. Rule out due to hypertensive urgency. B. Rule out acute myocardial ischemia, albeit EKG is unremarkable. 2. End-stage renal disease maintained on outpatient dialysis due to diabetic nephropathy. 3. Known coronary artery disease, status post acute LA in the past as well as PCI and stent placeme nt this past April in 2016. 4. Diabetes mellitus, uncontrolled. 5. Prosthetic right eye. 6. Multiple drug allergies. 7. Peripheral vascular disease. RECOMMENDATIONS: 1. Emergent dialysis for fluid removal. 2. Would recommend cardiology evaluation. 3. I will order troponins. 4. Blood pressure control. 5. Further recommendations pending response to above. Dictated By: BING DOMINGUEZ MD MM/SERGO Conf#: [id number] DID#: [id number]
[2016-09-28] MEDS: FAMOTIDINE 20 MG INJ IV SCH (10:36)
[2016-09-28] MEDS: HEPARIN 5,000 UNIT/0.5 ML VIAL SC SCH ×2 (10:45→20:44)
--- NOTE | 2016-09-28 11:23 | RADRPT ---
PROCEDURE: XR Chest. CLINICAL INDICATION: Shortness of breath. TECHNIQUE: Single frontal view. COMPARISON: 09/28/2016. FINDINGS: The endotracheal tube, and left internal jugular vein implanted port central venous catheter remain in satisfactory position. There is a new nasogastric tube with the tip below the diaphragm. There is bilateral pulmonary air space disease consistent with pulmonary edema, unchanged. The heart size is normal. There are small bilateral pleural effusions. There is no pneumothorax. IMPRESSION: 1. New nasogastric tube with tip below the diaphragm. 2. No other significant change from 09/28/2016. RPTAT: QQ .Alan Cordero MD, MD Date Time Electronically viewed and signed by .Alan Cordero MD, MD on 09/28/2016 11:23 .R/
[2016-09-28] MEDS: PROPOFOL 100 ML IV SCH ×3 (11:32→23:00)
--- NOTE | 2016-09-28 11:34 | HP ---
Date/Time of Note Date/Time of Note DATE: 09/28/16 TIME: 11:30 Assessment/Plan VTE Prophylaxis VTE Prophylaxis Intervention: heparin Lines/Catheters IV Catheter Type (from Nrs): Central Line Central line still needed: Yes Urinary Cath still in place: Yes Reason Cath still needed: skin wounds contaminated by urine Assessment/Plan Chief Complaint/Hosp Course 1) respiratory failure - related to fluid overload - pulmonary consulted, continue on ventilator 2) renal failure - patient is currently receiving hemodialysis 3) diabetes - monitor blood sugar, on insulin drip 4) coronary artery disease -follow troponin which is slightly elevated - consider cardiology consult Problems: HPI/ROS Admit Date/Time Admit Date/Time Sep 28, 2016 at 05:39 Hx of Present Illness Patient with history of diabetes, renal failure, coronary artery disease presented to the emergency room for knee pain. Patient, however, developed respiratory distress and respiratory failure in the emergency room and then required intubation. Patient was found to have fluid overload most likely related to renal failure. Patient was stablized and admitted to the intensive care unit where he will receive hemodialysis and further supportive care. PMH/Family/Social Past Medical History Medical History: coronary artery disease, diabetes, high cholesterol, hypertension Past Surgical History Past Surgical Hx: noncontributory, angioplasty, other Social History Smoking Status: Current every day smoker Exam/Review of Systems Vital Signs Vitals Vital Signs Date Time Temp Pulse Resp B/P Pulse Ox O2 Delivery O2 Flow Rate FiO2 09/28/16 10:52 82 28 09/28/16 10:22 100 80 09/28/16 10:00 148/92 Mechanical Ventilator 09/28/16 08:30 98.4 09/28/16 04:26 10 Exam Constitutional: well developed Head: atraumatic, normocephalic Neck: supple Respiratory: diminished breath sounds Cardiovascular: regular rate and rhythm Gastrointestinal: non-tender, soft Extremities: normal pulses Labs Result Diagram: 09/28/16 0450 09/28/16 0630 Medications Medications Current Medications Hydromorphone HCl (Dilaudid) 1 mg ONCE IM ; Start 09/28/16 at 03:53; Stop at 03:52 Ondansetron HCl (Zofran Inj) 4 mg Q6H PRN IV NAUSEA AND/OR VOMITING; Start at 06:00 Acetaminophen (Tylenol Liquid) 650 mg Q6H PRN PO PAIN LEVEL 1-3 OR FEVER; Start 09/28/16 at 06:00 Hydromorphone HCl (Dilaudid) 0.5 mg Q4H PRN IV PAIN LEVEL 7-10; Start 09/28/16 at 06:00 Heparin Sodium (Porcine) (Heparin (5000 Units/0.5 ml)) 5,000 unit Q12 SC Last administered on 09/28/16 10:45; Admin Dose 5,000 UNIT; Start 09/28/16 at 09:00 Miscellaneous Information 1 ea NOTE XX ; Start 09/28/16 at 06:30 Famotidine (Pepcid Iv) 20 mg DAILY IV Last administered on 09/28/16 10:36; Admin Dose 20 MG; Start 09/28/16 at 09:00 Dextrose (D50w Syringe) 25 ml Q15M PRN IV Till BS 80 mg/dL or above x2; Start 09/28/16 at 08:30 Dextrose (D50w Syringe) 50 ml Q15M PRN IV Till BS 80 mg/dL or above x2; Start 09/28/16 at 08:30 Diagnostic Test (Pha) (Accu-Chek) 1 ea Q1H XX Last administered on 09/28/16 11 :16; Admin Dose 1 EA; Start 09/28/16 at 09:00 SHANTE SALDAÑA Sep 28, 2016 11:34
[2016-09-28 12:05] LABS: CK-MB 1.35 ng/ml (0.0-2.4)
[2016-09-28 12:09] LABS: TROPONIN-I 0.306 ng/ml (0.00-0.12)
--- NOTE | 2016-09-28 13:16 | CONS ---
Date/Time of Note Date/Time of Note DATE: 09/28/16 TIME: 13:10 Assessment/Plan Assessment/Plan Additional Assessment/Plan Current ventilator settings; AC of 18, tidal volume 500, PEEP of 5, 80% FiO2. 440 mics per micrograms per minute, insulin drip at 2 U/h, Versed 3 mg/h. Chest x-ray was reviewed from today which is showing pulmonary edema. ABG also was reviewed which is showing acute respiratory acidosis. Assessment recommendations; 1. Patient admitted for knee pain developed respiratory failure discovered to have severe hyperglycemia without any evidence of DKA. 2. Pulmonary edema, patient apparently missed hemodialysis session recently. 3. Patient getting mildly hypotensive. 4. History of diabetes, hypertension, coronary artery disease. 5. Elevated troponins of uncertain significance at this point. Continue current ventilator settings. Discontinue propofol but increase Versed for sedation if required. Obtain follow-up chest x-ray in 24 hours. Consultation Date/Type/Reason Admit Date/Time Sep 28, 2016 at 05:39 Date of Consultation: Sep 28, 2016 Type of Consultation: Pulmonary/critical care Reason for Consultation Pulmonary consultation requested for evaluation and treatment of respiratory failure. History presenting; patient is a 51-year-old white male who came into the emergency room with complaints of knee pain however after being evaluated in the ER the patient upper respiratory failure and had to be intubated by the ER physician further workup revealed severe hyperglycemia and respiratory acidosis. Due to severe acute hypercapnia. By the time I saw the patient in ICU the patient is currently getting hemodialyzed at bedside and is orally intubated and sedated. Past medical history; next 1. Patient with history of chronic renal failure on hemodialysis. 2. Hypertension. 3. Diabetes. 4. History of coronary artery disease status post PTCA. Medications; were reviewed. Allergies; are multiple medications including codeine, erythromycin, Zithromax. Social history; currently not available. Family history; not available. Occupational history; not available. Review of systems; unable to be obtained. General exam; middle-aged male, orally intubated sedated currently in no distress. Past Medical History Medical History: coronary artery disease, diabetes, high cholesterol, hypertension Past Surgical History Past Surgical Hx: noncontributory, angioplasty, other Social History Smoking Status: Current every day smoker Exam/Review of Systems Vital Signs Vitals Vital Signs Date Time Temp Pulse Resp B/P Pulse Ox O2 Delivery O2 Flow Rate FiO2 09/28/16 12:00 80 09/28/16 12:00 98.4 87 35 172/97 100 Mechanical Ventilator 09/28/16 04:26 10 Exam HEENT examination; supple neck, no JVD. No lymphadenopathy. Midline trachea. No thyromegaly. Pupils are small bilaterally. Patient has fair dentition. Orally intubated. Chest exam is; diminished but clear breath sound bilaterally. S1-S2 audible, no murmurs. Regular rhythm. Abdomen examination; soft, no organomegaly. Bowel solid. No scars are present. There is no scrotal penile edema. Extremity exam is; no peripheral edema. Pulses 1+ bilaterally. TIE [employer] WORK[employer] examination a micro patient is sedated. Skin examination; patient has extensive tattoos over the entire body. Results Result Diagram: 09/28/16 0450 09/28/16 0630 Results 24 hrs Laboratory Tests Test 09/28/16 04:50 09/28/16 04:55 09/28/16 05:06 09/28/16 05:07 White Blood Count 9.4 # Red Blood Count 4.16 #L Hemoglobin 12.1 #L Hematocrit 40.1 #L Mean Corpuscular Volume 96.4 Mean Corpuscular Hemoglobin 29.1 Mean Corpuscular Hemoglobin Concent 30.2 L Red Cell Distribution Width 16.3 H Platelet Count 189 Mean Platelet Volume 11.2 H Neutrophils % 74.4 Lymphocytes % 12.3 L Monocytes % 8.4 Eosinophils % 3.6 Basophils % 0.9 Nucleated Red Blood Cells % 0.0 Neutrophils # 7.0 Lymphocytes # 1.2 Monocytes # 0.8 Eosinophils # 0.3 Basophils # 0.1 Nucleated Red Blood Cells # 0.0 Prothrombin Time 13.5 # Prothrombin Time Ratio 1.1 INR International Normalized Ratio 1.03 Activated Partial Thromboplast Time 27.0 Sodium Level 130 L Potassium Level 4.5 Chloride Level 91 L Carbon Dioxide Level 26 Anion Gap 18 H Blood Urea Nitrogen 44 H Creatinine 5.39 H Glucose Level 775 *H Calcium Level 7.6 L Troponin I 0.145 *H Bedside Glucose > 595 *H > 595 *H Blood Gas Specimen Source Blood arterial Arterial Blood Date Drawn 09/28/2016 5:09:53 AM Arterial Blood pH (Temp corrected) 7.112 *L Arterial Blood pCO2 (Temp correct) 75.2 H Arterial Blood pO2 (Temp corrected) 176.8 H Arterial Blood HCO3 23.5 Arterial Blood Base Excess -7.6 L Arterial Blood Oxygen Saturation 98.7 H Dick Test N/A Arterial Blood Gas Puncture Site Right Brachial Arterial Blood Carboxyhemoglobin 0.6 Arterial Blood Methemoglobin 0.4 Blood Gas A-a O2 Differential 461.0 H Oxyhemoglobin Percent 97.7 Total Hemoglobin 14.4 Blood Gas Temperature 37.0 Blood Gas Respiration Rate 16.0 Blood Gas Actual Respiration Rate 16 Blood Gas Modality VENT - AC FiO2 100.0 Blood Gas Tidal Volume 500.0 Blood Gas Critical Value Read Back MISSY LANDA Blood Gas Notified Whom CVILLARAMA Blood Gas Notified Time 09/28/2016 5:21:07 AM Test 09/28/16 05:20 09/28/16 06:30 09/28/16 06:52 09/28/16 09:15 Urine Color LT. YELLOW Urine Clarity CLEAR Urine pH 7.0 Urine Specific [place] 1.015 Urine Ketones NEGATIVE Urine Nitrite NEGATIVE Urine Bilirubin NEGATIVE Urine Urobilinogen 0.2 E.U./dL Urine Leukocyte Esterase NEGATIVE Urine Microscopic RBC 0-2 Urine Microscopic WBC 0-2 Urine Squamous Epithelial Cells RARE Urine Bacteria OCCASIONAL Urine Hemoglobin TRACE Urine Glucose >=1000 Urine Total Protein 2+ H Prothrombin Time 14.3 H Prothrombin Time Ratio 1.1 INR International Normalized Ratio 1.11 Activated Partial Thromboplast Time 25.0 Sodium Level 127 L Potassium Level 4.8 Chloride Level 92 L Carbon Dioxide Level 24 Anion Gap 16 Blood Urea Nitrogen 45 H Creatinine 5.42 H Glucose Level 723 *H Lactic Acid Level 1.3 1.4 Calcium Level 6.6 L Total Bilirubin 0.2 Direct Bilirubin 0.00 Indirect Bilirubin 0.2 Aspartate Amino Transf (AST/SGOT) 23 Alanine Aminotransferase (ALT/SGPT) 36 Alkaline Phosphatase 462 H Total Protein 6.5 Albumin 3.5 Globulin 3.00 Albumin/Globulin Ratio 1.16 Bedside Glucose 590 *H Test 09/28/16 09:40 09/28/16 10:32 09/28/16 11:15 09/28/16 11:20 Bedside Glucose 488 *H 520 *H 353 H Lactic Acid Level 1.3 Creatine Kinase 68 Creatine Kinase Index 2.0 Creatinine Kinase MB (Mass) 1.35 Troponin I 0.306 *H Test 09/28/16 12:11 09/28/16 12:57 Bedside Glucose 234 H 177 Medications Medications Current Medications Hydromorphone HCl (Dilaudid) 1 mg ONCE IM ; Start 09/28/16 at 03:53; Stop at 03:52 Ondansetron HCl (Zofran Inj) 4 mg Q6H PRN IV NAUSEA AND/OR VOMITING; Start at 06:00 Acetaminophen (Tylenol Liquid) 650 mg Q6H PRN PO PAIN LEVEL 1-3 OR FEVER; Start 09/28/16 at 06:00 Hydromorphone HCl (Dilaudid) 0.5 mg Q4H PRN IV PAIN LEVEL 7-10; Start 09/28/16 at 06:00 Heparin Sodium (Porcine) (Heparin (5000 Units/0.5 ml)) 5,000 unit Q12 SC Last administered on 09/28/16 10:45; Admin Dose 5,000 UNIT; Start 09/28/16 at 09:00 Miscellaneous Information 1 ea NOTE XX ; Start 09/28/16 at 06:30 Famotidine (Pepcid Iv) 20 mg DAILY IV Last administered on 09/28/16 10:36; Admin Dose 20 MG; Start 09/28/16 at 09:00 Dextrose (D50w Syringe) 25 ml Q15M PRN IV Till BS 80 mg/dL or above x2; Start 09/28/16 at 08:30 Dextrose (D50w Syringe) 50 ml Q15M PRN IV Till BS 80 mg/dL or above x2; Start 09/28/16 at 08:30 Diagnostic Test (Pha) 1 ea 1 ea Q1H XX Last administered on 09/28/16 12:58; Admin Dose 1 EA; Start 09/28/16 at 09:00 Propofol 100 ml @ 2.31 mls/hr Q12H IV Last administered on 09/28/16 11:32; Admin Dose 11.55 MLS/HR; Start 09/28/16 at 11:30 Midazolam HCl (Versed) 50 ml @ 1 mls/hr TITRATE IV ; Start 09/28/16 at 11:30 ELTON FELIX Sep 28, 2016 13:16
[2016-09-28 16:56] LABS: CK-MB 1.12 ng/ml (0.0-2.4); TROPONIN-I 0.318 ng/ml (0.00-0.12)
[2016-09-28] MEDS: MIDAZOLAM (DRIP) 50 mg/50 mL 50 ML IV SCH (16:58)
[2016-09-28] MEDS: DEXTROSE 50% 50 ML SYRINGE IV PRN (17:05)
[2016-09-28] MEDS: HYDROmorphONE 1 MG/ML SYG IV PRN (20:37)
[2016-09-28 21:13] LABS: AADO2 Arterial 187.6 mmHg (7.0-24.0); Allen Test ACCEPTAB; Arterial Base Excess 1.5 mmol/L (-3.0-3); Arterial COHb 0.2 % (0.0-3.0); Arterial Fraction of Oxyhgb 97.5 % (93.0-99.0); Arterial HCO3 25.9 mmol/L (22.0-26.0); Arterial MetHb 0.5 % (0.0-1.5); Blood Gas Mean Airway Pressure 10; MODE VENT - AC
[2016-09-29] VITALS (50 sets, daily range): BP systolic 85–162; BP diastolic 57–91; PULSE 74–97; RESP 18–23
[2016-09-29] MEDS: ACCU-CHEK XX SCH ×23 (00:01→23:14)
[2016-09-29] MEDS ORDERED: ACCUCHECK AT 2AM (Patients on SS coverage) XX SCH (02:00)
[2016-09-29 05:28] LABS: ADD SCAN DIFF NO
[2016-09-29 05:32] LABS: BASOPHIL # 0.1 10^3/ul (0.0-0.1); BASOPHILS % 0.8 % (0.0-2.0); EOSINOPHILS # 0.4 10^3/ul (0.0-0.5); EOSINOPHILS % 5.6 % (0.0-7.0); HEMATOCRIT 32.1 % (42.0-52.0); HEMOGLOBIN 10.1 g/dl (14.0-18.0); LYMPHOCYTES % 12.6 % (15.0-51.0); MEAN CORPUSCULAR HEMOGLOBIN 29.4 pg (29.0-33.0); MEAN CORPUSCULAR HGB CONC 31.5 g/dl (32.0-37.0); MEAN CORPUSCULAR VOLUME 93.3 fl (82.0-101.0); MEAN PLATELET VOLUME 11.3 fl (7.4-10.4); MONOCYTE # 0.6 10^3/ul (0.3-0.9); MONOCYTES % 7.5 % (0.0-11.0); NEUTROPHIL # 5.5 10^3/ul (1.6-7.5); NEUTROPHILS % 73.1 % (39.0-77.0); PLATELET COUNT 132 10^3/UL (140-415); RED BLOOD COUNT 3.44 10^6/ul (4.70-6.10); RED CELL DISTRIBUTION WIDTH 15.9 % (11.5-14.5); WHITE BLOOD COUNT 7.6 10^3/ul (4.8-10.8)
[2016-09-29 05:52] LABS: ALBUMIN 3.1 g/dl (3.3-4.9); ALBUMIN/GLOBULIN RATIO 1.1; BILIRUBIN,INDIRECT 0.4 mg/dl (0-1.1); BILIRUBIN,TOTAL 0.4 mg/dl (0.2-1.3); CALCIUM 7.1 mg/dl (8.4-10.2); CREATININE 5.13 mg/dl (0.61-1.24); TOTAL PROTEIN 5.9 g/dl (6.1-8.1)
[2016-09-29] MEDS: PROPOFOL 100 ML IV SCH ×4 (07:10→19:43)
--- NOTE | 2016-09-29 07:22 | RADRPT ---
PROCEDURE: XR Chest. CLINICAL INDICATION: Shortness of breath. TECHNIQUE: Single frontal view. COMPARISON: None. FINDINGS: The endotracheal tube, there is a gastric tube, and left internal jugular vein implanted port centra l venous catheter remain in satisfactory position. There is bilateral pulmonary air space disease co nsistent with pulmonary edema, slightly improved. The heart size is normal. There are small bilateral pleural effusions. There is no pneumothorax. IMPRESSION: 1. Slightly improved pulmonary edema. 2. No other change from 09/28/2016. RPTAT: QQ .Alan Cordero MD, MD Date Time Electronically viewed and signed by .Alan Cordero MD, MD on 09/29/2016 07:22 .R/
[2016-09-29] MEDS ORDERED: POTASSIUM CHLORIDE 50 ML IVPB ONE (08:00)
[2016-09-29] MEDS: FAMOTIDINE 20 MG INJ IV SCH (09:13)
[2016-09-29] MEDS: HEPARIN 5,000 UNIT/0.5 ML VIAL SC SCH ×2 (09:15→20:59)
--- NOTE | 2016-09-29 09:25 | RADRPT ---
Vent Rate: 84 bpm RR Interval: 0 msec GA Interval: 176 msec QRS Duration: 86 msec QT Interval: 420 msec QTC Interval: 496 msec P-R-T [place]: 26 - -47 - 74 degrees Normal sinus rhythm Left anterior fascicular block Anterior infarct , age undetermined Abnormal ECG Electronically Signed By: Rashid Harrell [id number]
--- NOTE | 2016-09-29 10:48 | CONS ---
Date/Time of Note Date/Time of Note DATE: 09/29/16 TIME: 10:46 Consult Date/Type/Reason Admit Date/Time Sep 28, 2016 at 05:39 Initial Consult Date 09/28/16 Type of Consultation: Pulmonary/critical care Subjective Patient intubated sedated on mechanical ventilation appears comfortable at rest No vasopressor support Objective Vital Signs Date Time Temp Pulse Resp B/P Pulse Ox O2 Delivery O2 Flow Rate FiO2 09/29/16 10:16 82 18 99 30 09/29/16 10:00 103/65 Mechanical Ventilator 09/29/16 08:00 98.7 09/28/16 04:26 10 Intake and Output 09/28/16 09/28/16 09/29/16 15:00 23:00 07:00 Intake Total 1770.47 ml 131.444 ml 89.54 ml Output Total 5920 ml 75 ml 105 ml Balance -4149.53 ml 56.444 ml -15.46 ml Exam PHYSICAL EXAMINATION GENERAL: Well-nourished well-developed gentleman intubated on mechanical ventilation VITAL SIGNS: see below. HEENT: Pupils equal, round, and reactive to light. CARDIAC: S1, S2, no added sounds or murmurs CHEST: Diminished air entry bilaterally. ABDOMEN: Mildly distended. Bowel sounds present no guarding or rebound EXTREMITIES: No cyanosis, clubbing edema +1 NEUROLOGIC: No focal deficits. Results/Medications Result Diagram: 09/29/16 0500 09/29/16 0500 Results 24 hrs Chest x-ray Ongoing pulmonary edema Laboratory Tests Test 09/28/16 11:15 09/28/16 11:20 09/28/16 12:11 09/28/16 12:57 Bedside Glucose 353 H 234 H 177 Lactic Acid Level 1.3 Creatine Kinase 68 Creatine Kinase Index 2.0 Creatinine Kinase MB (Mass) 1.35 Troponin I 0.306 *H Test 09/28/16 14:04 09/28/16 14:59 09/28/16 16:02 09/28/16 16:15 Bedside Glucose 217 182 80 Creatine Kinase 49 Creatine Kinase Index 2.3 Creatinine Kinase MB (Mass) 1.12 Troponin I 0.318 *H Test 09/28/16 17:00 09/28/16 17:39 09/28/16 18:00 09/28/16 19:00 Bedside Glucose 63 L 79 92 113 Test 09/28/16 20:01 09/28/16 20:30 09/28/16 21:18 09/28/16 22:00 Bedside Glucose 161 152 193 Blood Gas Specimen Source Blood arterial Arterial Blood Date Drawn 09/28/2016 9:01:24 PM Arterial Blood pH (Temp corrected) 7.426 Arterial Blood pCO2 (Temp correct) 40.3 Arterial Blood pO2 (Temp corrected) 123.6 H Arterial Blood HCO3 25.9 Arterial Blood Base Excess 1.5 Arterial Blood Oxygen Saturation 98.2 H Dick Test ACCEPTAB Arterial Blood Gas Puncture Site Right Radial Arterial Blood Carboxyhemoglobin 0.2 Arterial Blood Methemoglobin 0.5 Blood Gas A-a O2 Differential 187.6 H Oxyhemoglobin Percent 97.5 Total Hemoglobin 12.0 Blood Gas Temperature 37.0 Blood Gas Respiration Rate 18.0 Blood Gas Actual Respiration Rate 18 Blood Gas Modality VENT - AC FiO2 50.0 Blood Gas Tidal Volume 500.0 Blood Gas Mean Airway Pressure 10 Blood Gas Low PEEP Setting 5.0 Blood Gas Inspiratory Pressure 23.0 Blood Gas Notified Whom 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 Blood Gas Notified Time 09/28/2016 9:12:57 PM Test 09/28/16 23:06 09/29/16 00:01 09/29/16 01:03 09/29/16 02:03 Bedside Glucose 132 110 125 135 Test 09/29/16 03:02 09/29/16 04:00 09/29/16 04:59 09/29/16 05:00 Bedside Glucose 110 118 124 White Blood Count 7.6 Red Blood Count 3.44 L Hemoglobin 10.1 L Hematocrit 32.1 L Mean Corpuscular Volume 93.3 Mean Corpuscular Hemoglobin 29.4 Mean Corpuscular Hemoglobin Concent 31.5 L Red Cell Distribution Width 15.9 H Platelet Count 132 #L Mean Platelet Volume 11.3 H Neutrophils % 73.1 Lymphocytes % 12.6 L Monocytes % 7.5 Eosinophils % 5.6 Basophils % 0.8 Nucleated Red Blood Cells % 0.0 Neutrophils # 5.5 Lymphocytes # 1.0 Monocytes # 0.6 Eosinophils # 0.4 Basophils # 0.1 Nucleated Red Blood Cells # 0.0 Sodium Level 135 Potassium Level 3.0 L Chloride Level 97 Carbon Dioxide Level 28 Anion Gap 13 Blood Urea Nitrogen 33 #H Creatinine 5.13 H Glucose Level 133 # Calcium Level 7.1 L Total Bilirubin 0.4 Direct Bilirubin 0.00 Indirect Bilirubin 0.4 Aspartate Amino Transf (AST/SGOT) 17 Alanine Aminotransferase (ALT/SGPT) 32 Alkaline Phosphatase 283 H Total Protein 5.9 L Albumin 3.1 L Globulin 2.80 Albumin/Globulin Ratio 1.10 Test 09/29/16 06:03 09/29/16 06:58 09/29/16 09:11 Bedside Glucose 129 112 98 Medications Current Medications Ondansetron HCl (Zofran Inj) 4 mg Q6H PRN IV NAUSEA AND/OR VOMITING; Start at 06:00 Acetaminophen (Tylenol Liquid) 650 mg Q6H PRN PO PAIN LEVEL 1-3 OR FEVER; Start 09/28/16 at 06:00 Hydromorphone HCl (Dilaudid) 0.5 mg Q4H PRN IV PAIN LEVEL 7-10 Last administered on 09/28/16 20:37; Admin Dose 0.5 MG; Start 09/28/16 at 06:00 Heparin Sodium (Porcine) (Heparin (5000 Units/0.5 ml)) 5,000 unit Q12 SC Last administered on 09/29/16 09:15; Admin Dose 5,000 UNIT; Start 09/28/16 at 09:00 Miscellaneous Information 1 ea NOTE XX ; Start 09/28/16 at 06:30 Famotidine (Pepcid Iv) 20 mg DAILY IV Last administered on 09/29/16 09:13; Admin Dose 20 MG; Start 09/28/16 at 09:00 Dextrose (D50w Syringe) 25 ml Q15M PRN IV Till BS 80 mg/dL or above x2 Last administered on 09/28/16 17:05; Admin Dose 25 ML; Start 09/28/16 at 08:30 Dextrose (D50w Syringe) 50 ml Q15M PRN IV Till BS 80 mg/dL or above x2; Start 09/28/16 at 08:30 Diagnostic Test (Pha) 1 ea 1 ea Q1H XX Last administered on 09/29/16 09:12; Admin Dose 1 EA; Start 09/28/16 at 09:00 Propofol 100 ml @ 2.31 mls/hr Q12H IV Last administered on 09/29/16 07:10; Admin Dose 9.24 MLS/HR; Start 09/28/16 at 11:30 Midazolam HCl 50 ml @ 1 mls/hr TITRATE IV Last administered on 09/28/16t 16:58 ; Admin Dose 2 MLS/HR; Start 09/28/16 at 11:30 Fentanyl (Sublimaze) 100 ml @ 2.5 mls/hr TITRATE IV ; Start 09/29/16 at 09:00 Assessment/Plan Chief Complaint/Hosp Course Assessment 1. Hypoxemic respiratory failure with evidence of pulmonary edema 2. End-stage renal failure on hemodialysis 3. Hypokalemia 4. Diabetes mellitus with hypoglycemia on admission 5. History of coronary artery disease Plan 1. Hemodialysis with volume removal 2. CPAP weaning trial 3. Incentive spirometry postextubation 4. DVT GI prophylaxis 5. Speech therapy evaluation in a.m. 6. Correction of electrolyte abnormalities per nephrology Disposition Continue ICU care Problems: NANCY PHILLIPS MD, [facility] Sep 29, 2016 10:48
--- NOTE | 2016-09-29 12:51 | PN ---
DATE: 09/29/2016 SUBJECTIVE: Follow up on 51-year-old gentleman with end-stage renal disease, diabetes mellitus type 1, coronary artery disease. Patient is currently orally intubated on ventilatory support for acute respiratory failure, sedated on Versed and propofol and currently on insulin drip for hyperglycemia. OBJECTIVE: VITAL SIGNS: Temperature is 98.7, pulse is 82, blood pressure 103/65, respiratory rate 18, oxygen saturation 99% on 30% FIO2. GENERAL: Well-developed, well-nourished gentleman currently orally intubated on vent support, sedated. HEENT: Head is atraumatic, normocephalic. Patient has a right eye prosthesis. Left eye pupil is equal, round, reactive to light and accommodation. NECK: Supple, no cervical lymphadenopathy, no thyromegaly. CHEST: Lung sounds diminished at the bases. Scattered rhonchi bilaterally. Patient has a left chest Port-A-Cath. CARDIOVASCULAR: Normal S1, S2. No murmurs, gallops, clicks, rubs noted. ABDOMEN: Round, soft, nondistended, nontender. Bowel sounds present. EXTREMITIES: There is mild edema. There is no clubbing, cyanosis. Left upper extremity with AV graft. SKIN: No rash, petechiae noted. NEUROLOGIC: Patient is sedated. Medication list reviewed. ASSESSMENT AND PLAN: 1. Acute respiratory failure, requiring oral intubation and ventilatory support secondary to pulmonary edema. Dr. Cazares is following in pulmonology consultation. Continue ventilator support. 2. End-stage renal disease, hemodialysis dependent. Dr. Hubbard is following the patient in nephrology consultation. Continue the hemodialysis per nephrology. 3. Diabetes mellitus type [address] Haddad office was called for endocrinology consultation. Continue patient on insulin drip. The patient usually has an insulin pump, which was currently discontinued in the emergency room when patient was intubated. 4. Peripheral arterial disease, status post vascular intervention. Also have DVT right thigh. Continue Eliquis. 5. Anemia of chronic disease. Continue Epogen. 6. Coronary artery disease. Continue aspirin. 7. We will continue heparin for deep venous thrombosis prophylaxis and Pepcid for peptic ulcer disease prophylaxis. Further recommendations based on clinical course. Plan of care discussed with nursing staff & Dr. Rodriguez. Total critical care time spent 35 minutes Dictated By: ANGELINA CASTREJON NP lisa RODRIGUEZ MD, SR/SERGO Conf#: [id number] DID#: [id number] MTDD
--- NOTE | 2016-09-29 14:33 | CONS ---
Date/Time of Note Date/Time of Note DATE: 09/29/16 TIME: 14:28 Assessment/Plan Assessment/Plan Chief Complaint/Hosp Course 1. ESRD , he is on maintenance hemodialysis . I will order 2 hours of DUF for today . 2. Type I DM 3. flash pulmonary edema 4. HTN 5. CAD 6. respiratory failure on vent Problems: Consultation Date/Type/Reason Admit Date/Time Sep 28, 2016 at 05:39 Initial Consult Date 09/28/16 Type of Consultation: Pulmonary/critical care 24 HR Interval Summary Free Text/Dictation He is sedated , in the ICU , on a ventilator Subjective hx not possible: pt non-verbal Exam/Review of Systems Vital Signs Vitals Vital Signs Date Time Temp Pulse Resp B/P Pulse Ox O2 Delivery O2 Flow Rate FiO2 09/29/16 13:00 92 18 117/69 97 Mechanical Ventilator 09/29/16 12:00 98.3 09/29/16 10:16 30 09/28/16 04:26 10 Intake and Output 09/28/16 09/28/16 09/29/16 15:00 23:00 07:00 Intake Total 1770.47 ml 131.444 ml 89.54 ml Output Total 5920 ml 75 ml 105 ml Balance -4149.53 ml 56.444 ml -15.46 ml Exam Constitutional: non-verbal Respiratory: clear to auscultation Cardiovascular: regular rate and rhythm Gastrointestinal: soft Musculoskeletal: nl extremities to inspection Results Result Diagram: 09/29/16 0500 09/29/16 0500 Results 24 hrs Laboratory Tests Test 09/28/16 14:59 09/28/16 16:02 09/28/16 16:15 09/28/16 17:00 Bedside Glucose 182 80 63 L Creatine Kinase 49 Creatine Kinase Index 2.3 Creatinine Kinase MB (Mass) 1.12 Troponin I 0.318 *H Test 09/28/16 17:39 09/28/16 18:00 09/28/16 19:00 09/28/16 20:01 Bedside Glucose 79 92 113 161 Test 09/28/16 20:30 09/28/16 21:18 09/28/16 22:00 09/28/16 23:06 Blood Gas Specimen Source Blood arterial Arterial Blood Date Drawn 09/28/2016 9:01:24 PM Arterial Blood pH (Temp corrected) 7.426 Arterial Blood pCO2 (Temp correct) 40.3 Arterial Blood pO2 (Temp corrected) 123.6 H Arterial Blood HCO3 25.9 Arterial Blood Base Excess 1.5 Arterial Blood Oxygen Saturation 98.2 H Dick Test ACCEPTAB Arterial Blood Gas Puncture Site Right Radial Arterial Blood Carboxyhemoglobin 0.2 Arterial Blood Methemoglobin 0.5 Blood Gas A-a O2 Differential 187.6 H Oxyhemoglobin Percent 97.5 Total Hemoglobin 12.0 Blood Gas Temperature 37.0 Blood Gas Respiration Rate 18.0 Blood Gas Actual Respiration Rate 18 Blood Gas Modality VENT - AC FiO2 50.0 Blood Gas Tidal Volume 500.0 Blood Gas Mean Airway Pressure 10 Blood Gas Low PEEP Setting 5.0 Blood Gas Inspiratory Pressure 23.0 Blood Gas Notified Whom Pablo LAMAR Blood Gas Notified Time 09/28/2016 9:12:57 PM Bedside Glucose 152 193 132 Test 09/29/16 00:01 09/29/16 01:03 09/29/16 02:03 09/29/16 03:02 Bedside Glucose 110 125 135 110 Test 09/29/16 04:00 09/29/16 04:59 09/29/16 05:00 09/29/16 06:03 Bedside Glucose 118 124 129 White Blood Count 7.6 Red Blood Count 3.44 L Hemoglobin 10.1 L Hematocrit 32.1 L Mean Corpuscular Volume 93.3 Mean Corpuscular Hemoglobin 29.4 Mean Corpuscular Hemoglobin Concent 31.5 L Red Cell Distribution Width 15.9 H Platelet Count 132 #L Mean Platelet Volume 11.3 H Neutrophils % 73.1 Lymphocytes % 12.6 L Monocytes % 7.5 Eosinophils % 5.6 Basophils % 0.8 Nucleated Red Blood Cells % 0.0 Neutrophils # 5.5 Lymphocytes # 1.0 Monocytes # 0.6 Eosinophils # 0.4 Basophils # 0.1 Nucleated Red Blood Cells # 0.0 Sodium Level 135 Potassium Level 3.0 L Chloride Level 97 Carbon Dioxide Level 28 Anion Gap 13 Blood Urea Nitrogen 33 #H Creatinine 5.13 H Glucose Level 133 # Calcium Level 7.1 L Total Bilirubin 0.4 Direct Bilirubin 0.00 Indirect Bilirubin 0.4 Aspartate Amino Transf (AST/SGOT) 17 Alanine Aminotransferase (ALT/SGPT) 32 Alkaline Phosphatase 283 H Total Protein 5.9 L Albumin 3.1 L Globulin 2.80 Albumin/Globulin Ratio 1.10 Test 09/29/16 06:58 09/29/16 09:11 09/29/16 11:44 09/29/16 13:09 Bedside Glucose 112 98 139 132 Medications Medications Current Medications Ondansetron HCl (Zofran Inj) 4 mg Q6H PRN IV NAUSEA AND/OR VOMITING; Start at 06:00 Acetaminophen (Tylenol Liquid) 650 mg Q6H PRN PO PAIN LEVEL 1-3 OR FEVER; Start 09/28/16 at 06:00 Hydromorphone HCl (Dilaudid) 0.5 mg Q4H PRN IV PAIN LEVEL 7-10 Last administered on 09/28/16 20:37; Admin Dose 0.5 MG; Start 09/28/16 at 06:00 Heparin Sodium (Porcine) (Heparin (5000 Units/0.5 ml)) 5,000 unit Q12 SC Last administered on 09/29/16 09:15; Admin Dose 5,000 UNIT; Start 09/28/16 at 09:00 Miscellaneous Information 1 ea NOTE XX ; Start 09/28/16 at 06:30 Famotidine (Pepcid Iv) 20 mg DAILY IV Last administered on 09/29/16 09:13; Admin Dose 20 MG; Start 09/28/16 at 09:00 Dextrose (D50w Syringe) 25 ml Q15M PRN IV Till BS 80 mg/dL or above x2 Last administered on 09/28/16 17:05; Admin Dose 25 ML; Start 09/28/16 at 08:30 Dextrose (D50w Syringe) 50 ml Q15M PRN IV Till BS 80 mg/dL or above x2; Start 09/28/16 at 08:30 Diagnostic Test (Pha) 1 ea 1 ea Q1H XX Last administered on 09/29/16 13:10; Admin Dose 1 EA; Start 09/28/16 at 09:00 Propofol 100 ml @ 2.31 mls/hr Q12H IV Last administered on 09/29/16 12:30; Admin Dose 23.1 MLS/HR; Start 09/28/16 at 11:30 Midazolam HCl 50 ml @ 1 mls/hr TITRATE IV Last administered on 09/28/16 16:58 ; Admin Dose 2 MLS/HR; Start 09/28/16 at 11:30 Fentanyl (Sublimaze) 100 ml @ 2.5 mls/hr TITRATE IV ; Start 09/29/16 at 09:00 DONY HOWARD MD Sep 29, 2016 14:33
[2016-09-29] MEDS: MIDAZOLAM (DRIP) 50 mg/50 mL 50 ML IV SCH (19:43)
--- NOTE | 2016-09-29 22:24 | CONS ---
DATE OF ADMISSION: 09/28/2016 DATE OF CONSULTATION: 09/29/2016 HISTORY OF PRESENT ILLNESS: Mr. Lyons is a 51-year-old gentleman with a history of diab etes mellitus type 1 times many years, complicated by end-stage renal disease, peripheral vascular d isease, and other issues. He had been in his usual state of health having recently been discharged from the hospital. He had gone in for dialysis and had been complaining of pain. During the course of his attempts to treat the pain, he apparently went into what is being described to me as flash p ulmonary edema and required intubation. PAST MEDICAL HISTORY: 1. Diabetes mellitus type 1 on insulin pump. 2. Organic heart disease -- coronary artery disease. 3. Hypertension. 4. Hyperlipidemia. 5. End-stage renal disease, on CHD 3 times weekly. 6. History of Clostridium difficile colitis. 7. Recurrent urinary tract infections. 8. Diabetic retinopathy. 9. Blind, right eye. 10. Status post prosthetic, right eye. 11. Rotator cuff tear. 12. Peripheral vascular disease. 13. Status post PCI with LAD stent 03/2016. 14. Status post multiple surgeries for dialysis access. ALLERGIES: HE IS INTOLERANT OF: 1. CODEINE. 2. MORPHINE. 3. AZITHROMYCIN. CURRENT MEDICATIONS: Documented in the summary, but it should be: 1. Aspirin 81 mg a day. 2. Atorvastatin 80 mg a day. 3. Calcium acetate 2 pills with each meal. 4. Clonidine 0.1 q.6h. 5. Benadryl p.r.n. 6. Docusate p.r.n. 7. Dilaudid 2 mg tablets p.r.n. 8. Humalog insulin via the insulin pump. 9. Imdur 60 mg once a day. 10. Lisinopril 10 mg once day. 11. Lorazepam 2 mg at bedtime. 12. Metoprolol 50 mg daily. 13. Pramipexole 0.25 at bedtime. 14. Effient 10 mg once a day. 15. Renagel 800 mg 2 pills with each meal. 16. He had been on vancomycin. HABITS: He is a nonsmoker. Denies alcohol. FAMILY HISTORY: Positive for coronary artery disease. PHYSICAL EXAMINATION: GENERAL: At time of physical exam, he is a male lying in bed who is intubated and receivi ng dialysis. He is unable to give a meaningful history. His exam is as per my colleagues. ASSESSMENT AND PLAN: Diabetes mellitus type 1. His insulin pump has been disconnected, as he is on IV insulin drip because he is not able to manage his own affairs at this moment. He is being dialy zed and diuresed to help with the flash pulmonary edema. Given the recent history of coronary arter y disease and this event, I am somewhat concerned this represents flare of disease, although his tro ponins are not significant at this point. Cardiology will need to be involved and we will work with them to control his sugars. Dictated By: DEBBY BURT MD, JR/NTS Conf#: [id number] DID#: [id number] CC: SHANTE SALDAÑA MD;*EndCC*
[2016-09-30] VITALS (72 sets, daily range): BP systolic 50–166; BP diastolic 30–109; PULSE 88–122; RESP 17–32
[2016-09-30] MEDS: PROPOFOL 100 ML IV SCH ×2 (00:24→13:17)
[2016-09-30] MEDS: ACCU-CHEK XX SCH ×15 (01:49→23:31)
[2016-09-30 06:06] LABS: ADD SCAN DIFF NO
[2016-09-30 06:25] LABS: ABNORMAL IP MESSAGE 1; BASOPHIL # 0.1 10^3/ul (0.0-0.1); BASOPHILS % 0.6 % (0.0-2.0); EOSINOPHILS # 0.4 10^3/ul (0.0-0.5); EOSINOPHILS % 3.5 % (0.0-7.0); HEMATOCRIT 37.5 % (42.0-52.0); HEMOGLOBIN 11.6 g/dl (14.0-18.0); LYMPHOCYTES # 0.6 10^3/ul (0.8-2.9); LYMPHOCYTES % 4.6 % (15.0-51.0); MEAN CORPUSCULAR HEMOGLOBIN 29.1 pg (29.0-33.0); MEAN CORPUSCULAR HGB CONC 30.9 g/dl (32.0-37.0); MEAN CORPUSCULAR VOLUME 94.2 fl (82.0-101.0); MONOCYTE # 0.9 10^3/ul (0.3-0.9); MONOCYTES % 7.5 % (0.0-11.0); NEUTROPHILS % 83.2 % (39.0-77.0); PLATELET COUNT 152 10^3/UL (140-415); RED BLOOD COUNT 3.98 10^6/ul (4.70-6.10); RED CELL DISTRIBUTION WIDTH 17.2 % (11.5-14.5)
[2016-09-30 06:38] LABS: CREATININE 7.7 mg/dl (0.61-1.24)
[2016-09-30 06:39] LABS: CALCIUM 7.3 mg/dl (8.4-10.2); MAGNESIUM 1.8 mg/dl (1.7-2.5); PHOSPHORUS 5.5 mg/dl (2.5-4.9)
[2016-09-30] MEDS ORDERED: ETOMIDATE 20 MG INJ ONE ×2 (07:00)
[2016-09-30] MEDS ORDERED: ROCURONIUM 50 MG INJ ONE (07:00)
--- NOTE | 2016-09-30 08:27 | CONS ---
Date/Time of Note Date/Time of Note DATE: 09/30/16 TIME: 08:23 Assessment/Plan Assessment/Plan Chief Complaint/Hosp Course 1. ESRD , he is on maintenance hemodialysis . He had 2 hours of DUF yesterday and 3 liters were removed .I will order hemodialysis for today . 2. Type I DM 3. flash pulmonary edema 4. HTN 5. CAD 6. respiratory failure on vent 7. fever , will draw blood cultures X 2 . Problems: Consultation Date/Type/Reason Admit Date/Time Sep 28, 2016 at 05:39 Initial Consult Date 09/28/16 Type of Consultation: Pulmonary/critical care 24 HR Interval Summary Free Text/Dictation He is in the ICU , sedated , intubated on a ventilator Subjective hx not possible: pt non-verbal Exam/Review of Systems Vital Signs Vitals Vital Signs Date Time Temp Pulse Resp B/P Pulse Ox O2 Delivery O2 Flow Rate FiO2 09/30/16 07:00 106 21 119/79 97 Mechanical Ventilator 09/30/16 05:46 30 09/30/16 04:00 98.4 09/28/16 04:26 10 Intake and Output 09/29/16 09/29/16 09/30/16 15:00 23:00 07:00 Intake Total 224.44 ml 609.4 ml 207.8 ml Output Total 72 ml 3740 ml 75 ml Balance 152.44 ml -3130.6 ml 132.8 ml Exam Constitutional: non-verbal Respiratory: clear to auscultation Cardiovascular: regular rate and rhythm Gastrointestinal: soft Musculoskeletal: nl extremities to inspection Results Result Diagram: 09/30/16 0430 09/30/16 0430 Results 24 hrs Laboratory Tests Test 09/29/16 09:11 09/29/16 11:44 09/29/16 13:09 09/29/16 15:09 Bedside Glucose 98 139 132 133 Test 09/29/16 17:16 09/29/16 19:47 09/29/16 21:01 09/29/16 23:14 Bedside Glucose 92 115 175 148 Test 09/30/16 01:35 09/30/16 03:11 09/30/16 04:30 09/30/16 05:11 Bedside Glucose 129 110 142 White Blood Count 12.0 #H Red Blood Count 3.98 L Hemoglobin 11.6 L Hematocrit 37.5 L Mean Corpuscular Volume 94.2 Mean Corpuscular Hemoglobin 29.1 Mean Corpuscular Hemoglobin Concent 30.9 L Red Cell Distribution Width 17.2 H Platelet Count 152 Mean Platelet Volume 12.0 H Neutrophils % 83.2 H Lymphocytes % 4.6 L Monocytes % 7.5 Eosinophils % 3.5 Basophils % 0.6 Nucleated Red Blood Cells % 0.0 Neutrophils # 10.0 H Lymphocytes # 0.6 L Monocytes # 0.9 Eosinophils # 0.4 Basophils # 0.1 Nucleated Red Blood Cells # 0.0 Sodium Level 138 Potassium Level 4.0 Chloride Level 95 L Carbon Dioxide Level 21 Anion Gap 26 #H Blood Urea Nitrogen 50 H Creatinine 7.70 #H Glucose Level 130 Calcium Level 7.3 L Phosphorus Level 5.5 H Magnesium Level 1.8 Test 09/30/16 06:58 Bedside Glucose 139 Medications Medications Current Medications Ondansetron HCl (Zofran Inj) 4 mg Q6H PRN IV NAUSEA AND/OR VOMITING; Start at 06:00 Acetaminophen (Tylenol Liquid) 650 mg Q6H PRN PO PAIN LEVEL 1-3 OR FEVER; Start 09/28/16 at 06:00 Hydromorphone HCl (Dilaudid) 0.5 mg Q4H PRN IV PAIN LEVEL 7-10 Last administered on 09/28/16 20:37; Admin Dose 0.5 MG; Start 09/28/16 at 06:00 Heparin Sodium (Porcine) (Heparin (5000 Units/0.5 ml)) 5,000 unit Q12 SC Last administered on 09/29/16 20:59; Admin Dose 5,000 UNIT; Start 09/28/16 at 09:00 Miscellaneous Information 1 ea NOTE XX ; Start 09/28/16 at 06:30 Famotidine (Pepcid Iv) 20 mg DAILY IV Last administered on 09/29/16 09:13; Admin Dose 20 MG; Start 09/28/16 at 09:00 Dextrose (D50w Syringe) 25 ml Q15M PRN IV Till BS 80 mg/dL or above x2 Last administered on 09/28/16 17:05; Admin Dose 25 ML; Start 09/28/16 at 08:30 Dextrose 50 ml 50 ml Q15M PRN IV Till BS 80 mg/dL or above x2; Start 09/28/16 at 08:30 Propofol 100 ml @ 2.31 mls/hr Q12H IV Last administered on 09/30/16 00:24; Admin Dose 23.1 MLS/HR; Start 09/28/16 at 11:30 Midazolam HCl 50 ml @ 1 mls/hr TITRATE IV Last administered on 09/29/16 19:43 ; Admin Dose 2 MLS/HR; Start 09/28/16 at 11:30 Fentanyl (Sublimaze) 100 ml @ 2.5 mls/hr TITRATE IV ; Start 09/29/16 at 09:00 Diagnostic Test (Pha) (Accu-Chek) 1 ea Q2H XX ; Start 09/30/16 at 09:00 DONY HOWARD MD Sep 30, 2016 08:27
[2016-09-30] MEDS: FAMOTIDINE 20 MG INJ IV SCH (08:32)
[2016-09-30] MEDS: HEPARIN 5,000 UNIT/0.5 ML VIAL SC SCH ×2 (08:37→20:31)
--- NOTE | 2016-09-30 09:40 | CONS ---
Date/Time of Note Date/Time of Note DATE: 09/30/16 TIME: 09:38 Assessment/Plan Assessment/Plan Additional Assessment/Plan Ventilator settings; AC of 18, tidal volume 500, PEEP of 5, 30% FiO2. Propofol at 16 mics micrograms per minute. Assessment recommendations; 1. Patient admitted with acute pulmonary edema requiring intubation. 2. End-stage renal disease on hemodialysis. 3. History of hypertension, diabetes and coronary artery disease. Hold sedation for now, once the patient is off sedative effect he will be evaluated for possible weaning from ventilator, meanwhile chest x-ray from today is pending, once it is available I will review it. Consultation Date/Type/Reason Admit Date/Time Sep 28, 2016 at 05:39 Initial Consult Date 09/28/16 Type of Consultation: Pulmonary/critical care 24 HR Interval Summary Free Text/Dictation Patient condition remains critical however patient has improved hemodynamically. Remains sedated. General exam; middle-aged man, orally intubated, sedated currently in no distress. Exam/Review of Systems Vital Signs Vitals Vital Signs Date Time Temp Pulse Resp B/P Pulse Ox O2 Delivery O2 Flow Rate FiO2 09/30/16 08:30 104 22 128/78 95 09/30/16 08:30 30 09/30/16 08:00 98.2 Mechanical Ventilator 09/28/16 04:26 10 Intake and Output 09/29/16 09/29/16 09/30/16 15:00 23:00 07:00 Intake Total 224.44 ml 609.4 ml 207.8 ml Output Total 72 ml 3740 ml 75 ml Balance 152.44 ml -3130.6 ml 132.8 ml Exam HEENT exam is; supple neck, positive JVD. No lymphadenopathy. Midline trachea. Orally intubated. Patient has a right eye prosthesis. Left pupil is sluggishly reactive to light. Chest exam is; diminished but clear vessel. S1-S2 audible, no murmurs. Regular rhythm. Abdomen exam is; soft, nondistended. No organomegaly. Bowel sounds audible. Extremity exam is; no peripheral edema. Pulses 1+ bilaterally. [employer] exam; patient is sedated. Results Result Diagram: 09/30/16 0430 09/30/16 0430 Results 24 hrs Laboratory Tests Test 09/29/16 11:44 09/29/16 13:09 09/29/16 15:09 09/29/16 17:16 Bedside Glucose 139 132 133 92 Test 09/29/16 19:47 09/29/16 21:01 09/29/16 23:14 09/30/16 01:35 Bedside Glucose 115 175 148 129 Test 09/30/16 03:11 09/30/16 04:30 09/30/16 05:11 09/30/16 06:58 Bedside Glucose 110 142 139 White Blood Count 12.0 #H Red Blood Count 3.98 L Hemoglobin 11.6 L Hematocrit 37.5 L Mean Corpuscular Volume 94.2 Mean Corpuscular Hemoglobin 29.1 Mean Corpuscular Hemoglobin Concent 30.9 L Red Cell Distribution Width 17.2 H Platelet Count 152 Mean Platelet Volume 12.0 H Neutrophils % 83.2 H Lymphocytes % 4.6 L Monocytes % 7.5 Eosinophils % 3.5 Basophils % 0.6 Nucleated Red Blood Cells % 0.0 Neutrophils # 10.0 H Lymphocytes # 0.6 L Monocytes # 0.9 Eosinophils # 0.4 Basophils # 0.1 Nucleated Red Blood Cells # 0.0 Sodium Level 138 Potassium Level 4.0 Chloride Level 95 L Carbon Dioxide Level 21 Anion Gap 26 #H Blood Urea Nitrogen 50 H Creatinine 7.70 #H Glucose Level 130 Calcium Level 7.3 L Phosphorus Level 5.5 H Magnesium Level 1.8 Test 09/30/16 09:08 Bedside Glucose 148 Medications Medications Current Medications Ondansetron HCl (Zofran Inj) 4 mg Q6H PRN IV NAUSEA AND/OR VOMITING; Start at 06:00 Acetaminophen (Tylenol Liquid) 650 mg Q6H PRN PO PAIN LEVEL 1-3 OR FEVER Last administered on 09/30/16 08:32; Admin Dose 650 MG; Start 09/28/16 at 06:00 Hydromorphone HCl (Dilaudid) 0.5 mg Q4H PRN IV PAIN LEVEL 7-10 Last administered on 09/28/16 20:37; Admin Dose 0.5 MG; Start 09/28/16 at 06:00 Heparin Sodium (Porcine) (Heparin (5000 Units/0.5 ml)) 5,000 unit Q12 SC Last administered on 09/30/16 08:37; Admin Dose 5,000 UNIT; Start 09/28/16 at 09:00 Miscellaneous Information 1 ea NOTE XX ; Start 09/28/16 at 06:30 Famotidine (Pepcid Iv) 20 mg DAILY IV Last administered on 09/30/16 08:32; Admin Dose 20 MG; Start 09/28/16 at 09:00 Dextrose (D50w Syringe) 25 ml Q15M PRN IV Till BS 80 mg/dL or above x2 Last administered on 09/28/16 17:05; Admin Dose 25 ML; Start 09/28/16 at 08:30 Dextrose 50 ml 50 ml Q15M PRN IV Till BS 80 mg/dL or above x2; Start 09/28/16 at 08:30 Propofol 100 ml @ 2.31 mls/hr Q12H IV Last administered on 09/30/16 00:24; Admin Dose 23.1 MLS/HR; Start 09/28/16 at 11:30 Midazolam HCl 50 ml @ 1 mls/hr TITRATE IV Last administered on 09/29/16 19:43 ; Admin Dose 2 MLS/HR; Start 09/28/16 at 11:30 Fentanyl (Sublimaze) 100 ml @ 2.5 mls/hr TITRATE IV ; Start 09/29/16 at 09:00 Diagnostic Test (Pha) (Accu-Chek) 1 ea Q2H XX Last administered on 09/30/16 09 :09; Admin Dose 1 EA; Start 09/30/16 at 09:00 Acetaminophen (Tylenol Liquid) 650 mg Q4H PRN NGT PAIN AND OR ELEVATED TEMP; Start 09/30/16 at 08:30 ELTON FELIX Sep 30, 2016 09:40
--- NOTE | 2016-09-30 10:19 | CONS ---
Date/Time of Note Date/Time of Note DATE: 09/30/16 TIME: 10:16 Assessment/Plan Assessment/Plan Problems: (1) Diabetes mellitus type 1, controlled, with complications Status: Chronic Comment: His blood sugar control on an insulin drip is doing well. We could transition him off of the insulin drip but he will then have to be on a multiple daily injection regimen while he is not eating. This current course of therapeutics using the continuous insulin infusion will allow us better control with more ability to move around. As such I would continue the same. 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 Please note in March of the last year he had a cardiac evaluation by Dr. Stephen. If we need cardiology he would be the individual to contact Consultation Date/Type/Reason Admit Date/Time Sep 28, 2016 at 05:39 Initial Consult Date 09/28/16 Type of Consultation: Endocrinology Reason for Consultation Diabetes mellitus type 1 on a pump status post respiratory arrest with flash pulmonary edema. Pump was turned off patient is on insulin drip 24 HR Interval Summary Constitutional: no complaints Exam/Review of Systems Vital Signs Vitals Vital Signs Date Time Temp Pulse Resp B/P Pulse Ox O2 Delivery O2 Flow Rate FiO2 09/30/16 08:30 104 22 128/78 95 09/30/16 08:30 30 09/30/16 08:00 101.3 Mechanical Ventilator 09/28/16 04:26 10 Intake and Output 09/29/16 09/29/16 09/30/16 15:00 23:00 07:00 Intake Total 224.44 ml 609.4 ml 207.8 ml Output Total 72 ml 3740 ml 75 ml Balance 152.44 ml -3130.6 ml 132.8 ml Exam Marginally responsive opens eyes but does not really interact. Neck: non-tender, supple Respiratory: clear to auscultation, normal air movement Cardiovascular: nl pulses, regular rate and rhythm Extremities: normal pulses Results Result Diagram: 09/30/16 0430 09/30/16 0430 Results 24 hrs Laboratory Tests Test 09/29/16 11:44 09/29/16 13:09 09/29/16 15:09 09/29/16 17:16 Bedside Glucose 139 132 133 92 Test 09/29/16 19:47 09/29/16 21:01 09/29/16 23:14 09/30/16 01:35 Bedside Glucose 115 175 148 129 Test 09/30/16 03:11 09/30/16 04:30 09/30/16 05:11 09/30/16 06:58 Bedside Glucose 110 142 139 White Blood Count 12.0 #H Red Blood Count 3.98 L Hemoglobin 11.6 L Hematocrit 37.5 L Mean Corpuscular Volume 94.2 Mean Corpuscular Hemoglobin 29.1 Mean Corpuscular Hemoglobin Concent 30.9 L Red Cell Distribution Width 17.2 H Platelet Count 152 Mean Platelet Volume 12.0 H Neutrophils % 83.2 H Lymphocytes % 4.6 L Monocytes % 7.5 Eosinophils % 3.5 Basophils % 0.6 Nucleated Red Blood Cells % 0.0 Neutrophils # 10.0 H Lymphocytes # 0.6 L Monocytes # 0.9 Eosinophils # 0.4 Basophils # 0.1 Nucleated Red Blood Cells # 0.0 Sodium Level 138 Potassium Level 4.0 Chloride Level 95 L Carbon Dioxide Level 21 Anion Gap 26 #H Blood Urea Nitrogen 50 H Creatinine 7.70 #H Glucose Level 130 Calcium Level 7.3 L Phosphorus Level 5.5 H Magnesium Level 1.8 Test 09/30/16 09:08 Bedside Glucose 148 Medications Medications Current Medications Ondansetron HCl (Zofran Inj) 4 mg Q6H PRN IV NAUSEA AND/OR VOMITING; Start at 06:00 Acetaminophen (Tylenol Liquid) 650 mg Q6H PRN PO PAIN LEVEL 1-3 OR FEVER Last administered on 09/30/16 08:32; Admin Dose 650 MG; Start 09/28/16 at 06:00 Hydromorphone HCl (Dilaudid) 0.5 mg Q4H PRN IV PAIN LEVEL 7-10 Last administered on 09/28/16 20:37; Admin Dose 0.5 MG; Start 09/28/16 at 06:00 Heparin Sodium (Porcine) (Heparin (5000 Units/0.5 ml)) 5,000 unit Q12 SC Last administered on 09/30/16 08:37; Admin Dose 5,000 UNIT; Start 09/28/16 at 09:00 Miscellaneous Information 1 ea NOTE XX ; Start 09/28/16 at 06:30 Famotidine (Pepcid Iv) 20 mg DAILY IV Last administered on 09/30/16 08:32; Admin Dose 20 MG; Start 09/28/16 at 09:00 Dextrose (D50w Syringe) 25 ml Q15M PRN IV Till BS 80 mg/dL or above x2 Last administered on 09/28/16 17:05; Admin Dose 25 ML; Start 09/28/16 at 08:30 Dextrose 50 ml 50 ml Q15M PRN IV Till BS 80 mg/dL or above x2; Start 09/28/16 at 08:30 Propofol 100 ml @ 2.31 mls/hr Q12H IV Last administered on 09/30/16 00:24; Admin Dose 23.1 MLS/HR; Start 09/28/16 at 11:30 Midazolam HCl 50 ml @ 1 mls/hr TITRATE IV Last administered on 09/29/16 19:43 ; Admin Dose 2 MLS/HR; Start 09/28/16 at 11:30 Fentanyl (Sublimaze) 100 ml @ 2.5 mls/hr TITRATE IV ; Start 09/29/16 at 09:00 Diagnostic Test (Pha) (Accu-Chek) 1 ea Q2H XX Last administered on 09/30/16 09 :09; Admin Dose 1 EA; Start 09/30/16 at 09:00 Acetaminophen (Tylenol Liquid) 650 mg Q4H PRN NGT PAIN AND OR ELEVATED TEMP; Start 09/30/16 at 08:30 DEBBY BURT MD Sep 30, 2016 10:19
[2016-09-30] MEDS ORDERED: VANCOMYCIN IV PER PHARMACY XX SCH (12:00)
--- NOTE | 2016-09-30 12:01 | RADRPT ---
PROCEDURE: XR Chest 1 View. CLINICAL INDICATION: Shortness of breath. TECHNIQUE: AP view of the chest was obtained. COMPARISON: Yesterday. FINDINGS: The heart size is within normal limits. Calcified atherosclerosis is noted in the aorta. Endotrache al and nasogastric tubes are stable and appear in grossly appropriate location. Left-sided chest po rt is unchanged. Central pulmonary vascular congestion and interstitial prominence in both lungs is stable. Patchy bilateral lower lung infiltrates and small left pleural effusion are stable. Small right pleural effusion is not as well visualized as on prior exam. Osseous structures are unchanged . IMPRESSION: Calcified atherosclerosis in the aorta. Stable central pulmonary vascular congestion and interstitial prominence in both lungs. Stable bilateral patchy lower lung infiltrates and small left pleural effusion. Previously seen small right pleural effusion is not as well visualized on the current x-ray. RPTAT: AA .Davian Man MD, Date Time Electronically viewed and signed by .Davian Man MD, MD on 09/30/2016 12:00 .P/
[2016-09-30] MEDS: CEFEPIME 1GM/50 ML (PMX) 50 ML IVPB SCH (12:27)
--- NOTE | 2016-09-30 13:45 | PN ---
Date/Time of Note Date/Time of Note DATE: 09/30/16 TIME: 13:42 Assessment/Plan VTE Prophylaxis VTE Prophylaxis Intervention: heparin Lines/Catheters IV Catheter Type (from [facility]): Central Line Central line still needed: Yes Urinary Cath still in place: Yes Reason Cath still needed: urinary retention Assessment/Plan Chief Complaint/Hosp Course ASSESSMENT AND PLAN: 1. Acute respiratory failure, requiring oral intubation and ventilatory support secondary to pulmonary edema. Dr. Nunez is following in pulmonology consultation. Continue ventilator support. 2. End-stage renal disease, hemodialysis dependent. Dr. Hubbard is following the patient in nephrology consultation. Continue the hemodialysis per nephrology. 3. Diabetes mellitus type [address] Garay is following endocrinology consultation. Continue patient on insulin drip. The patient usually has an insulin pump, which was currently discontinued in the emergency room when patient was intubated. 4. Peripheral arterial disease, status post vascular intervention. Continue Eliquis. 5. Anemia of chronic disease. Continue Epogen. 6. Coronary artery disease. Continue aspirin. Continue heparin for deep venous thrombosis prophylaxis and Pepcid for peptic ulcer disease prophylaxis. Further recommendations based on clinical course. Plan of care discussed with Dr. Rosales. Problems: Subjective 24 Hr Interval Summary Free Text/Dictation Patient is currently orally intubated on ventilator support and propofol, patient is currently undergoing hemodialysis. Exam/Review of Systems Vital Signs Vitals Vital Signs Date Time Temp Pulse Resp B/P Pulse Ox O2 Delivery O2 Flow Rate FiO2 09/30/16 12:00 107 09/30/16 11:55 25 95 30 09/30/16 11:30 100.1 117/102 09/30/16 11:00 Mechanical Ventilator 09/28/16 04:26 10 Intake and Output 09/29/16 09/29/16 09/30/16 15:00 23:00 07:00 Intake Total 224.44 ml 609.4 ml 207.8 ml Output Total 72 ml 3740 ml 75 ml Balance 152.44 ml -3130.6 ml 132.8 ml Exam GENERAL: Well-developed, well-nourished gentleman currently orally intubated on vent support, sedated. HEENT: Head is atraumatic, normocephalic. Patient has a right eye prosthesis. Left eye pupil is equal, round, reactive to light and accommodation. NECK: Supple, no cervical lymphadenopathy, no thyromegaly. CHEST: Lung sounds diminished at the bases. Scattered rhonchi bilaterally. Patient has a left chest Port-A-Cath. CARDIOVASCULAR: Normal S1, S2. No murmurs, gallops, clicks, rubs noted. ABDOMEN: Round, soft, nondistended, nontender. Bowel sounds present. EXTREMITIES: There is mild edema. There is no clubbing, cyanosis. Left upper extremity with AV graft. SKIN: No rash, petechiae noted. NEUROLOGIC: Patient is sedated. Results Result Diagram: 09/30/16 0430 09/30/16 0430 Results 24 hrs Laboratory Tests Test 09/29/16 15:09 09/29/16 17:16 09/29/16 19:47 09/29/16 21:01 Bedside Glucose 133 92 115 175 Test 09/29/16 23:14 09/30/16 01:35 09/30/16 03:11 09/30/16 04:30 Bedside Glucose 148 129 110 White Blood Count 12.0 #H Red Blood Count 3.98 L Hemoglobin 11.6 L Hematocrit 37.5 L Mean Corpuscular Volume 94.2 Mean Corpuscular Hemoglobin 29.1 Mean Corpuscular Hemoglobin Concent 30.9 L Red Cell Distribution Width 17.2 H Platelet Count 152 Mean Platelet Volume 12.0 H Neutrophils % 83.2 H Lymphocytes % 4.6 L Monocytes % 7.5 Eosinophils % 3.5 Basophils % 0.6 Nucleated Red Blood Cells % 0.0 Neutrophils # 10.0 H Lymphocytes # 0.6 L Monocytes # 0.9 Eosinophils # 0.4 Basophils # 0.1 Nucleated Red Blood Cells # 0.0 Sodium Level 138 Potassium Level 4.0 Chloride Level 95 L Carbon Dioxide Level 21 Anion Gap 26 #H Blood Urea Nitrogen 50 H Creatinine 7.70 #H Glucose Level 130 Calcium Level 7.3 L Phosphorus Level 5.5 H Magnesium Level 1.8 Test 09/30/16 05:11 09/30/16 06:58 09/30/16 09:08 09/30/16 11:03 Bedside Glucose 142 139 148 152 Test 09/30/16 12:00 Lactic Acid Level 1.5 Medications Medications Current Medications Ondansetron HCl (Zofran Inj) 4 mg Q6H PRN IV NAUSEA AND/OR VOMITING; Start at 06:00 Acetaminophen (Tylenol Liquid) 650 mg Q6H PRN PO PAIN LEVEL 1-3 OR FEVER Last administered on 09/30/16 08:32; Admin Dose 650 MG; Start 09/28/16 at 06:00 Hydromorphone HCl (Dilaudid) 0.5 mg Q4H PRN IV PAIN LEVEL 7-10 Last administered on 09/28/16 20:37; Admin Dose 0.5 MG; Start 09/28/16 at 06:00 Heparin Sodium (Porcine) (Heparin (5000 Units/0.5 ml)) 5,000 unit Q12 SC Last administered on 09/30/16 08:37; Admin Dose 5,000 UNIT; Start 09/28/16 at 09:00 Miscellaneous Information 1 ea NOTE XX ; Start 09/28/16 at 06:30 Famotidine (Pepcid Iv) 20 mg DAILY IV Last administered on 09/30/16 08:32; Admin Dose 20 MG; Start 09/28/16 at 09:00 Dextrose (D50w Syringe) 25 ml Q15M PRN IV Till BS 80 mg/dL or above x2 Last administered on 09/28/16 17:05; Admin Dose 25 ML; Start 09/28/16 at 08:30 Dextrose 50 ml 50 ml Q15M PRN IV Till BS 80 mg/dL or above x2; Start 09/28/16 at 08:30 Propofol 100 ml @ 2.31 mls/hr Q12H IV Last administered on 09/30/16 13:17; Admin Dose 6.93 MLS/HR; Start 09/28/16 at 11:30 Midazolam HCl 50 ml @ 1 mls/hr TITRATE IV Last administered on 09/29/16 19:43 ; Admin Dose 2 MLS/HR; Start 09/28/16 at 11:30 Fentanyl (Sublimaze) 100 ml @ 2.5 mls/hr TITRATE IV ; Start 09/29/16 at 09:00 Diagnostic Test (Pha) (Accu-Chek) 1 ea Q2H XX Last administered on 09/30/16 11 :03; Admin Dose 1 EA; Start 09/30/16 at 09:00 Acetaminophen 650 mg 650 mg Q4H PRN NGT PAIN AND OR ELEVATED TEMP; Start at 08:30 Cefepime HCl (Maxipime 1gm/50 ml (Pmx)) 50 ml @ 100 mls/hr Q24H IVPB Last administered on 09/30/16t 12:27; Admin Dose 100 MLS/HR; Start 09/30/16 at 13:00 ANGELINA CASTREJON Sep 30, 2016 13:45
[2016-09-30] MEDS: ACETAMINOPHEN 650MG/20.3ML CUP NGT PRN (14:46)
[2016-09-30] MEDS: FENTAnyl (DRIP) 1000 mcg/100mL 100 ML IV SCH (15:06)
[2016-09-30] MEDS ORDERED: VANCOMYCIN 1 GM in NS 250 ML IVPB ONE (16:00)
[2016-09-30] MEDS ORDERED: VANCOMYCIN 1.25 GM in SOD CHLORIDE 0.9% 250 ML IVPB SCH (16:30)
[2016-09-30 17:13] LABS: AADO2 Arterial 94.9 mmHg (7.0-24.0); Arterial Base Excess -5.3 mmol/L (-3.0-3); Arterial COHb 0.7 % (0.0-3.0); Arterial HCO3 18.3 mmol/L (22.0-26.0); Arterial MetHb 0.2 % (0.0-1.5); Arterial Total Hemglobin 15.3 g/dl (12.0-18.0); MODE VENT - AC
[2016-09-30] MEDS ORDERED: SOD CHLORIDE 0.9% 1,000 ML IV ONE (18:00)
[2016-09-30] MEDS ORDERED: SOD CHLORIDE 0.9% 500 ML IV ONE (19:00)
[2016-09-30] MEDS: INSULIN HUMAN REGULAR 100 UNIT in SOD CHLORIDE 0.9% 99 ML IV SCH (19:26)
[2016-09-30] MEDS ORDERED: ALTEPLASE (CATHFLO) 2 MG INJ CATHETER PRN (19:30)
[2016-09-30] MEDS: HYDROmorphONE 1 MG/ML SYG IV PRN (23:48)
[2016-10-01] VITALS (59 sets, daily range): BP systolic 79–178; BP diastolic 56–107; PULSE 84–108; RESP 11–18
[2016-10-01] MEDS: ACCU-CHEK XX SCH ×12 (01:19→22:00)
[2016-10-01 04:33] LABS: ADD SCAN DIFF NO
[2016-10-01 04:56] LABS: ALBUMIN 3.4 g/dl (3.3-4.9)
[2016-10-01 04:57] LABS: POTASSIUM 4.1 mmol/L (3.5-5.1)
[2016-10-01 04:59] LABS: ALBUMIN/GLOBULIN RATIO 1.06; BILIRUBIN,INDIRECT 0.4 mg/dl (0-1.1); BILIRUBIN,TOTAL 0.4 mg/dl (0.2-1.3); CREATININE 7.77 mg/dl (0.61-1.24); TOTAL PROTEIN 6.6 g/dl (6.1-8.1)
[2016-10-01 05:00] LABS: CALCIUM 7.2 mg/dl (8.4-10.2)
[2016-10-01 05:17] LABS: BASOPHIL # 0.1 10^3/ul (0.0-0.1); BASOPHILS % 0.5 % (0.0-2.0); EOSINOPHILS # 0.1 10^3/ul (0.0-0.5); EOSINOPHILS % 0.8 % (0.0-7.0); HEMATOCRIT 34.9 % (42.0-52.0); HEMOGLOBIN 11.1 g/dl (14.0-18.0); LYMPHOCYTES % 9.4 % (15.0-51.0); MEAN CORPUSCULAR HEMOGLOBIN 29.8 pg (29.0-33.0); MEAN CORPUSCULAR HGB CONC 31.8 g/dl (32.0-37.0); MEAN CORPUSCULAR VOLUME 93.8 fl (82.0-101.0); MEAN PLATELET VOLUME 11.9 fl (7.4-10.4); MONOCYTE # 0.4 10^3/ul (0.3-0.9); MONOCYTES % 4.3 % (0.0-11.0); NEUTROPHIL # 8.6 10^3/ul (1.6-7.5); NEUTROPHILS % 84.4 % (39.0-77.0); PLATELET COUNT 102 10^3/UL (140-415); RED BLOOD COUNT 3.72 10^6/ul (4.70-6.10); RED CELL DISTRIBUTION WIDTH 17.2 % (11.5-14.5); WHITE BLOOD COUNT 10.1 10^3/ul (4.8-10.8)
[2016-10-01] MEDS: ACETAMINOPHEN 650MG/20.3ML CUP NGT PRN (06:21)
[2016-10-01] MEDS: MIDAZOLAM (DRIP) 50 mg/50 mL 50 ML IV SCH ×2 (08:04→16:40)
--- NOTE | 2016-10-01 09:01 | RADRPT ---
Vent Rate: 77 bpm RR Interval: 0 msec SC Interval: 164 msec QRS Duration: 84 msec QT Interval: 478 msec QTC Interval: 540 msec P-R-T [place]: 36 - 52 - 77 degrees Normal sinus rhythm Possible Left atrial enlargement Prolonged QT Abnormal ECG Electronically Signed By: Timothy Kurtz [id number]
--- NOTE | 2016-10-01 09:36 | CONS ---
Date/Time of Note Date/Time of Note DATE: 10/01/16 TIME: 09:25 Assessment/Plan Assessment/Plan Chief Complaint/Hosp Course 1. ESRD , he is on maintenance hemodialysis . He had 2 hours of DUF 2 days ago and 3 liters were removed .He had hemodialysis yesterday , 3500 cc of fluid were removed yesterday during dialysis yesterday .I will order hemodialysis fo tomorrow . 2. Type I DM 3. flash pulmonary edema 4. HTN 5. CAD 6. respiratory failure on vent 7. fever , will draw blood cultures X 2 . 8.ALOC , he is sedated on Vent . 9. consider cardiology consult . Problems: Consultation Date/Type/Reason Admit Date/Time Sep 28, 2016 at 05:39 Initial Consult Date 09/28/16 Type of Consultation: Endocrinology 24 HR Interval Summary Free Text/Dictation he is in the ICU , sedated , intubated on a ventilator . Subjective hx not possible: pt non-verbal Exam/Review of Systems Vital Signs Vitals Vital Signs Date Time Temp Pulse Resp B/P Pulse Ox O2 Delivery O2 Flow Rate FiO2 10/01/16 08:15 97 18 110/72 99 10/01/16 08:00 98.8 Mechanical Ventilator 10/01/16 07:41 30 09/28/16 04:26 10 Intake and Output 09/30/16 09/30/16 10/01/16 15:00 23:00 07:00 Intake Total 313.0 ml 1569.98 ml 34.0 ml Output Total 105 ml 4010 ml 25 ml Balance 208.0 ml -2440.02 ml 9.0 ml Exam Constitutional: non-verbal Respiratory: clear to auscultation, diminished breath sounds Cardiovascular: regular rate and rhythm Gastrointestinal: non-tender, soft Musculoskeletal: nl extremities to inspection Results Result Diagram: 10/01/16 0400 10/01/16 0400 Results 24 hrs Laboratory Tests Test 09/30/16 11:03 09/30/16 12:00 09/30/16 13:46 09/30/16 14:00 Bedside Glucose 152 146 Lactic Acid Level 1.5 Random Vancomycin Level 7.1 Test 09/30/16 15:09 09/30/16 16:21 09/30/16 16:59 09/30/16 17:45 Bedside Glucose 154 171 Blood Gas Specimen Source Blood arterial Arterial Blood Date Drawn 09/30/2016 4:58:00 PM Arterial Blood pH (Temp corrected) 7.393 Arterial Blood pCO2 (Temp correct) 30.7 L Arterial Blood pO2 (Temp corrected) 82.9 Arterial Blood HCO3 18.3 L Arterial Blood Base Excess -5.3 L Arterial Blood Oxygen Saturation 95.9 Dick Test N/A Arterial Blood Gas Puncture Site Right Brachial Arterial Blood Carboxyhemoglobin 0.7 Arterial Blood Methemoglobin 0.2 Blood Gas A-a O2 Differential 94.9 H Oxyhemoglobin Percent 95.0 Total Hemoglobin 15.3 Blood Gas Temperature 37.0 Blood Gas Respiration Rate 18.0 Blood Gas Actual Respiration Rate 22 Blood Gas Modality VENT - AC FiO2 30.0 Blood Gas Tidal Volume 500.0 Blood Gas Low PEEP Setting 5.0 Blood Gas Notified Whom M.DJoaquina Blood Gas Notified Time 09/30/2016 5:09:00 PM Lactic Acid Level 3.8 H Test 09/30/16 19:25 09/30/16 21:16 09/30/16 23:13 10/01/16 01:19 Bedside Glucose 148 174 214 235 H Test 10/01/16 03:06 10/01/16 04:00 10/01/16 05:18 10/01/16 07:01 Bedside Glucose 215 190 227 H White Blood Count 10.1 Red Blood Count 3.72 L Hemoglobin 11.1 L Hematocrit 34.9 L Mean Corpuscular Volume 93.8 Mean Corpuscular Hemoglobin 29.8 Mean Corpuscular Hemoglobin Concent 31.8 L Red Cell Distribution Width 17.2 H Platelet Count 102 #L Mean Platelet Volume 11.9 H Neutrophils % 84.4 H Lymphocytes % 9.4 L Monocytes % 4.3 Eosinophils % 0.8 Basophils % 0.5 Nucleated Red Blood Cells % 0.0 Neutrophils # 8.6 H Lymphocytes # 1.0 Monocytes # 0.4 Eosinophils # 0.1 Basophils # 0.1 Nucleated Red Blood Cells # 0.0 Sodium Level 139 Potassium Level 4.1 Chloride Level 97 Carbon Dioxide Level 23 Anion Gap 23 H Blood Urea Nitrogen 48 H Creatinine 7.77 H Glucose Level 219 Calcium Level 7.2 L Total Bilirubin 0.4 Direct Bilirubin 0.00 Indirect Bilirubin 0.4 Aspartate Amino Transf (AST/SGOT) 375 #H Alanine Aminotransferase (ALT/SGPT) 268 H Alkaline Phosphatase 267 H Total Protein 6.6 Albumin 3.4 Globulin 3.20 Albumin/Globulin Ratio 1.06 Medications Medications Current Medications Ondansetron HCl (Zofran Inj) 4 mg Q6H PRN IV NAUSEA AND/OR VOMITING; Start at 06:00 Acetaminophen (Tylenol Liquid) 650 mg Q6H PRN PO PAIN LEVEL 1-3 OR FEVER Last administered on 09/30/16 08:32; Admin Dose 650 MG; Start 09/28/16 at 06:00 Hydromorphone HCl (Dilaudid) 0.5 mg Q4H PRN IV PAIN LEVEL 7-10 Last administered on 09/30/16 23:48; Admin Dose 0.5 MG; Start 09/28/16 at 06:00 Heparin Sodium (Porcine) (Heparin (5000 Units/0.5 ml)) 5,000 unit Q12 SC Last administered on 09/30/16 20:31; Admin Dose 5,000 UNIT; Start 09/28/16 at 09:00 Miscellaneous Information 1 ea NOTE XX ; Start 09/28/16 at 06:30 Famotidine (Pepcid Iv) 20 mg DAILY IV Last administered on 09/30/16 08:32; Admin Dose 20 MG; Start 09/28/16 at 09:00 Dextrose (D50w Syringe) 25 ml Q15M PRN IV Till BS 80 mg/dL or above x2 Last administered on 09/28/16 17:05; Admin Dose 25 ML; Start 09/28/16 at 08:30 Dextrose 50 ml 50 ml Q15M PRN IV Till BS 80 mg/dL or above x2; Start 09/28/16 at 08:30 Propofol 100 ml @ 2.31 mls/hr Q12H IV Last administered on 09/30/16 13:17; Admin Dose 6.93 MLS/HR; Start 09/28/16 at 11:30 Midazolam HCl 50 ml @ 1 mls/hr TITRATE IV Last administered on 10/01/16 08:04 ; Admin Dose 1 MLS/HR; Start 09/28/16 at 11:30 Fentanyl (Sublimaze) 100 ml @ 2.5 mls/hr TITRATE IV Last administered on 15:06; Admin Dose 2.5 MLS/HR; Start 09/29/16 at 09:00 Diagnostic Test (Pha) (Accu-Chek) 1 ea Q2H XX Last administered on 10/01/16 07 :06; Admin Dose 1 EA; Start 09/30/16 at 09:00 Acetaminophen 650 mg 650 mg Q4H PRN NGT PAIN AND OR ELEVATED TEMP Last administered on 10/01/16 06:21; Admin Dose 650 MG; Start 09/30/16 at 08:30 Cefepime HCl 50 ml @ 100 mls/hr Q24H IVPB Last administered on 09/30/16 12:27 ; Admin Dose 100 MLS/HR; Start 09/30/16 at 13:00 Norepinephrine/ Dextrose (Levophed/D5W) 500 ml @ 1.87 mls/hr TITRATE IV Last administered on 10/01/16 07:05; Admin Dose 7.5 MLS/HR; Start 09/30/16 at 19:00 DONY HOWARD MD Oct 01, 2016 09:36
[2016-10-01] MEDS: HEPARIN 5,000 UNIT/0.5 ML VIAL SC SCH ×2 (09:37→20:13)
[2016-10-01] MEDS: FAMOTIDINE 20 MG INJ IV SCH (09:45)
--- NOTE | 2016-10-01 10:01 | CONS ---
Date/Time of Note Date/Time of Note DATE: 10/01/16 TIME: 09:55 Assessment/Plan Assessment/Plan Additional Assessment/Plan Ventilator settings; AC of 18, tidal volume 600, PEEP of 5, 30% FiO2. Patient is on Versed at 4 mg/h. Assessment recommendations; 1. Patient admitted with pulmonary edema due to likely missing her hemodialysis session. 2. Generalized muscular weakness. 3. History of diabetes, hypertension and coronary artery disease. Discontinue sedation. Once the patient is off sedation he will be evaluated for possible weaning from ventilator. Consultation Date/Type/Reason Admit Date/Time Sep 28, 2016 at 05:39 Initial Consult Date 09/28/16 Type of Consultation: Pulmonary 24 HR Interval Summary Free Text/Dictation Patient condition remains critical, still requiring full ventilator support. Patient is off sedation. General exam; middle-aged male, or intubated, somewhat responsive. Currently in no distress. Exam/Review of Systems Vital Signs Vitals Vital Signs Date Time Temp Pulse Resp B/P Pulse Ox O2 Delivery O2 Flow Rate FiO2 10/01/16 08:15 97 18 110/72 99 10/01/16 08:00 98.8 Mechanical Ventilator 10/01/16 07:41 30 09/28/16 04:26 10 Intake and Output 09/30/16 09/30/16 10/01/16 15:00 23:00 07:00 Intake Total 313.0 ml 1569.98 ml 34.0 ml Output Total 105 ml 4010 ml 25 ml Balance 208.0 ml -2440.02 ml 9.0 ml Exam HEENT exam is; supple neck, no JVD. No lymphadenopathy. Midline trachea. No thyromegaly. Chest exam is; clear to auscultation. S1-S2 audible, no murmurs. Regular rhythm. Abdomen exam is; soft, no organomegaly. Bowel sounds audible. Extremity exam; no peripheral edema. 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 Has significant generalized weakness. Results Result Diagram: 10/01/16 0400 10/01/16 0400 Results 24 hrs Laboratory Tests Test 09/30/16 11:03 09/30/16 12:00 09/30/16 13:46 09/30/16 14:00 Bedside Glucose 152 146 Lactic Acid Level 1.5 Random Vancomycin Level 7.1 Test 09/30/16 15:09 09/30/16 16:21 09/30/16 16:59 09/30/16 17:45 Bedside Glucose 154 171 Blood Gas Specimen Source Blood arterial Arterial Blood Date Drawn 09/30/2016 4:58:00 PM Arterial Blood pH (Temp corrected) 7.393 Arterial Blood pCO2 (Temp correct) 30.7 L Arterial Blood pO2 (Temp corrected) 82.9 Arterial Blood HCO3 18.3 L Arterial Blood Base Excess -5.3 L Arterial Blood Oxygen Saturation 95.9 Dick Test N/A Arterial Blood Gas Puncture Site Right Brachial Arterial Blood Carboxyhemoglobin 0.7 Arterial Blood Methemoglobin 0.2 Blood Gas A-a O2 Differential 94.9 H Oxyhemoglobin Percent 95.0 Total Hemoglobin 15.3 Blood Gas Temperature 37.0 Blood Gas Respiration Rate 18.0 Blood Gas Actual Respiration Rate 22 Blood Gas Modality VENT - AC FiO2 30.0 Blood Gas Tidal Volume 500.0 Blood Gas Low PEEP Setting 5.0 Blood Gas Notified Whom M.D. Blood Gas Notified Time 09/30/2016 5:09:00 PM Lactic Acid Level 3.8 H Test 09/30/16 19:25 09/30/16 21:16 09/30/16 23:13 10/01/16 01:19 Bedside Glucose 148 174 214 235 H Test 10/01/16 03:06 10/01/16 04:00 10/01/16 05:18 10/01/16 07:01 Bedside Glucose 215 190 227 H White Blood Count 10.1 Red Blood Count 3.72 L Hemoglobin 11.1 L Hematocrit 34.9 L Mean Corpuscular Volume 93.8 Mean Corpuscular Hemoglobin 29.8 Mean Corpuscular Hemoglobin Concent 31.8 L Red Cell Distribution Width 17.2 H Platelet Count 102 #L Mean Platelet Volume 11.9 H Neutrophils % 84.4 H Lymphocytes % 9.4 L Monocytes % 4.3 Eosinophils % 0.8 Basophils % 0.5 Nucleated Red Blood Cells % 0.0 Neutrophils # 8.6 H Lymphocytes # 1.0 Monocytes # 0.4 Eosinophils # 0.1 Basophils # 0.1 Nucleated Red Blood Cells # 0.0 Sodium Level 139 Potassium Level 4.1 Chloride Level 97 Carbon Dioxide Level 23 Anion Gap 23 H Blood Urea Nitrogen 48 H Creatinine 7.77 H Glucose Level 219 Calcium Level 7.2 L Total Bilirubin 0.4 Direct Bilirubin 0.00 Indirect Bilirubin 0.4 Aspartate Amino Transf (AST/SGOT) 375 #H Alanine Aminotransferase (ALT/SGPT) 268 H Alkaline Phosphatase 267 H Total Protein 6.6 Albumin 3.4 Globulin 3.20 Albumin/Globulin Ratio 1.06 Test 10/01/16 09:31 Bedside Glucose 249 H Medications Medications Current Medications Ondansetron HCl (Zofran Inj) 4 mg Q6H PRN IV NAUSEA AND/OR VOMITING; Start at 06:00 Acetaminophen (Tylenol Liquid) 650 mg Q6H PRN PO PAIN LEVEL 1-3 OR FEVER Last administered on 09/30/16 08:32; Admin Dose 650 MG; Start 09/28/16 at 06:00 Hydromorphone HCl (Dilaudid) 0.5 mg Q4H PRN IV PAIN LEVEL 7-10 Last administered on 09/30/16 23:48; Admin Dose 0.5 MG; Start 09/28/16 at 06:00 Heparin Sodium (Porcine) (Heparin (5000 Units/0.5 ml)) 5,000 unit Q12 SC Last administered on 10/01/16 09:37; Admin Dose 5,000 UNIT; Start 09/28/16 at 09:00 Miscellaneous Information 1 ea NOTE XX ; Start 09/28/16 at 06:30 Famotidine (Pepcid Iv) 20 mg DAILY IV Last administered on 10/01/16 09:45; Admin Dose 20 MG; Start 09/28/16 at 09:00 Dextrose (D50w Syringe) 25 ml Q15M PRN IV Till BS 80 mg/dL or above x2 Last administered on 09/28/16 17:05; Admin Dose 25 ML; Start 09/28/16 at 08:30 Dextrose 50 ml 50 ml Q15M PRN IV Till BS 80 mg/dL or above x2; Start 09/28/16 at 08:30 Propofol 100 ml @ 2.31 mls/hr Q12H IV Last administered on 09/30/16 13:17; Admin Dose 6.93 MLS/HR; Start 09/28/16 at 11:30 Midazolam HCl 50 ml @ 1 mls/hr TITRATE IV Last administered on 10/01/16 08:04 ; Admin Dose 1 MLS/HR; Start 09/28/16 at 11:30 Fentanyl (Sublimaze) 100 ml @ 2.5 mls/hr TITRATE IV Last administered on 15:06; Admin Dose 2.5 MLS/HR; Start 09/29/16 at 09:00 Diagnostic Test (Pha) (Accu-Chek) 1 ea Q2H XX Last administered on 10/01/16 09 :33; Admin Dose 1 EA; Start 09/30/16 at 09:00 Acetaminophen 650 mg 650 mg Q4H PRN NGT PAIN AND OR ELEVATED TEMP Last administered on 10/01/16 06:21; Admin Dose 650 MG; Start 09/30/16 at 08:30 Cefepime HCl 50 ml @ 100 mls/hr Q24H IVPB Last administered on 09/30/16 12:27 ; Admin Dose 100 MLS/HR; Start 09/30/16 at 13:00 Norepinephrine/ Dextrose (Levophed/D5W) 500 ml @ 1.87 mls/hr TITRATE IV Last administered on 10/01/16 07:05; Admin Dose 7.5 MLS/HR; Start 09/30/16 at 19:00 ELTON FELIX Oct 01, 2016 10:01
[2016-10-01] MEDS: PROPOFOL 100 ML IV SCH ×2 (11:06→22:44)
--- NOTE | 2016-10-01 11:28 | CONS ---
DATE OF ADMISSION: 09/28/2016 DATE OF CONSULTATION: 10/01/2016 TYPE OF CONSULTATION: Infectious Disease. REASON FOR CONSULTATION: Antibiotic management. HISTORY OF PRESENT ILLNESS: Lux Bhagat is a 51-year-old male with end-stage renal disease. The patient's problems include: 1. Adult-onset diabetes mellitus. 2. End-stage renal disease on dialysis. 3. Coronary artery disease. He presented to the emergency room with knee pain. He developed respi ratory distress and respiratory failure in the emergency room which required intubation and fluid ov erload, most likely due to renal failure. He was admitted to the intensive care unit where he was p laced on hemodialysis. Past problems include coronary artery disease, diabetes, hypertension and hypercholesterolemia. He is status post angioplasty in the past. He currently has a central line placed. Urinary catheter i s in place. Patient was seen in consultation by Dr. Lorenzo for end-stage renal disease and with Dr Joaquina Ortiz. Presently the patient still has a central line and his Foster catheter, has acute respirato ry failure requiring oral intubation and ventilator support, end-stage renal disease. He is a diabe tic seen by Dr. Garay for peripheral arterial disease on [facility]. He is on Epogen. His white count on September 30 is 12.0. PAST MEDICAL HISTORY: Operations as outlined. FAMILY HISTORY: Noncontributory. SOCIAL HISTORY: He does not smoke, drink or abuse drugs. ALLERGIES: NONE TO PENICILLIN, SULFA OR FOODS. MEDICATIONS: Per chart. REVIEW OF SYSTEMS: As per HPI. PHYSICAL EXAMINATION: GENERAL: The patient is a well-developed, well-nourished male who is intubated on a respirator. SKIN: Without generalized rash. HEENT: Within normal limits. NECK: Supple. LYMPH NODES: None palpable. CHEST: Decreased breath sounds at the bases. HEART: Without murmur or gallop. ABDOMEN: Soft, nontender, without organosplenomegaly or masses. EXTREMITIES: Without cyanosis, clubbing, or edema. RECTAL AND GENITAL: Deferred. NEUROLOGIC: No focal neurological abnormality. The patient is currently on norepinephrine to maintain his blood pressure. He is on Vancomycin and cefepime. His blood cultures are negative. His urine cultures are negative so far. His Gram stain shows norm al respiratory kyara. A chest x-ray from September 30 shows calcified atherosclerosis, stable central p ulmonary venous congestion, interstitial prominence in both lungs, stable bilateral patchy lower delicia g infiltrates, previously seen small right pleural effusion is not well visualized. CT scan of the thorax showed no ____. Extensive bilateral alveolar infiltrates which may be due to infection or ledy ma, small effusions, mediastinal adenopathy, moderate gastric distention with air. I will dictate m y findings to Dr. Rosales. We will continue him on current vancomycin and cefepime. Dictated By: WILEY RAMOS MD, JD/NTS Conf#: [id number] DID#: [id number] CC: BING LORENZO MD;*EndCC*
--- NOTE | 2016-10-01 12:15 | CONS ---
Date/Time of Note Date/Time of Note DATE: 10/01/16 TIME: 12:14 Assessment/Plan Assessment/Plan Problems: (1) Type 1 diabetes mellitus with diabetic nephropathy Status: Chronic Comment: Will adjust his insulin drip to bring his sugars into the mid 100 range. He remains critically ill intubated. Consultation Date/Type/Reason Admit Date/Time Sep 28, 2016 at 05:39 Initial Consult Date 09/28/16 Type of Consultation: Endocrinology Reason for Consultation Diabetes mellitus type 1 previously on a pump off the pump due to extreme illness 24 HR Interval Summary Subjective hx not possible: pt non-verbal (Intubated), pt critical status Exam/Review of Systems Vital Signs Vitals Vital Signs Date Time Temp Pulse Resp B/P Pulse Ox O2 Delivery O2 Flow Rate FiO2 10/01/16 11:08 98 18 99 30 10/01/16 08:15 110/72 10/01/16 08:00 98.8 Mechanical Ventilator 09/28/16 04:26 10 Intake and Output 09/30/16 09/30/16 10/01/16 15:00 23:00 07:00 Intake Total 313.0 ml 1569.98 ml 34.0 ml Output Total 105 ml 4010 ml 25 ml Balance 208.0 ml -2440.02 ml 9.0 ml Exam No changes Results Result Diagram: 10/01/16 0400 10/01/16 0400 Results 24 hrs Laboratory Tests Test 09/30/16 13:46 09/30/16 14:00 09/30/16 15:09 09/30/16 16:21 Bedside Glucose 146 154 Random Vancomycin Level 7.1 Blood Gas Specimen Source Blood arterial Arterial Blood Date Drawn 09/30/2016 4:58:00 PM Arterial Blood pH (Temp corrected) 7.393 Arterial Blood pCO2 (Temp correct) 30.7 L Arterial Blood pO2 (Temp corrected) 82.9 Arterial Blood HCO3 18.3 L Arterial Blood Base Excess -5.3 L Arterial Blood Oxygen Saturation 95.9 Dick Test N/A Arterial Blood Gas Puncture Site Right Brachial Arterial Blood Carboxyhemoglobin 0.7 Arterial Blood Methemoglobin 0.2 Blood Gas A-a O2 Differential 94.9 H Oxyhemoglobin Percent 95.0 Total Hemoglobin 15.3 Blood Gas Temperature 37.0 Blood Gas Respiration Rate 18.0 Blood Gas Actual Respiration Rate 22 Blood Gas Modality VENT - AC FiO2 30.0 Blood Gas Tidal Volume 500.0 Blood Gas Low PEEP Setting 5.0 Blood Gas Notified Whom M.D. Blood Gas Notified Time 09/30/2016 5:09:00 PM Test 09/30/16 16:59 09/30/16 17:45 09/30/16 19:25 09/30/16 21:16 Bedside Glucose 171 148 174 Lactic Acid Level 3.8 H Test 09/30/16 23:13 10/01/16 01:19 10/01/16 03:06 10/01/16 04:00 Bedside Glucose 214 235 H 215 White Blood Count 10.1 Red Blood Count 3.72 L Hemoglobin 11.1 L Hematocrit 34.9 L Mean Corpuscular Volume 93.8 Mean Corpuscular Hemoglobin 29.8 Mean Corpuscular Hemoglobin Concent 31.8 L Red Cell Distribution Width 17.2 H Platelet Count 102 #L Mean Platelet Volume 11.9 H Neutrophils % 84.4 H Lymphocytes % 9.4 L Monocytes % 4.3 Eosinophils % 0.8 Basophils % 0.5 Nucleated Red Blood Cells % 0.0 Neutrophils # 8.6 H Lymphocytes # 1.0 Monocytes # 0.4 Eosinophils # 0.1 Basophils # 0.1 Nucleated Red Blood Cells # 0.0 Sodium Level 139 Potassium Level 4.1 Chloride Level 97 Carbon Dioxide Level 23 Anion Gap 23 H Blood Urea Nitrogen 48 H Creatinine 7.77 H Glucose Level 219 Calcium Level 7.2 L Total Bilirubin 0.4 Direct Bilirubin 0.00 Indirect Bilirubin 0.4 Aspartate Amino Transf (AST/SGOT) 375 #H Alanine Aminotransferase (ALT/SGPT) 268 H Alkaline Phosphatase 267 H Total Protein 6.6 Albumin 3.4 Globulin 3.20 Albumin/Globulin Ratio 1.06 Test 10/01/16 05:18 10/01/16 07:01 10/01/16 09:31 10/01/16 11:02 Bedside Glucose 190 227 H 249 H 240 H Medications Medications Current Medications Ondansetron HCl (Zofran Inj) 4 mg Q6H PRN IV NAUSEA AND/OR VOMITING; Start at 06:00 Acetaminophen (Tylenol Liquid) 650 mg Q6H PRN PO PAIN LEVEL 1-3 OR FEVER Last administered on 09/30/16t 08:32; Admin Dose 650 MG; Start 09/28/16 at 06:00 Hydromorphone HCl (Dilaudid) 0.5 mg Q4H PRN IV PAIN LEVEL 7-10 Last administered on 09/30/16 23:48; Admin Dose 0.5 MG; Start 09/28/16 at 06:00 Heparin Sodium (Porcine) (Heparin (5000 Units/0.5 ml)) 5,000 unit Q12 SC Last administered on 10/01/16 09:37; Admin Dose 5,000 UNIT; Start 09/28/16 at 09:00 Miscellaneous Information 1 ea NOTE XX ; Start 09/28/16 at 06:30 Famotidine (Pepcid Iv) 20 mg DAILY IV Last administered on 10/01/16 09:45; Admin Dose 20 MG; Start 09/28/16 at 09:00 Dextrose (D50w Syringe) 25 ml Q15M PRN IV Till BS 80 mg/dL or above x2 Last administered on 09/28/16 17:05; Admin Dose 25 ML; Start 09/28/16 at 08:30 Dextrose 50 ml 50 ml Q15M PRN IV Till BS 80 mg/dL or above x2; Start 09/28/16 at 08:30 Propofol 100 ml @ 2.31 mls/hr Q12H IV Last administered on 09/30/16 13:17; Admin Dose 6.93 MLS/HR; Start 09/28/16 at 11:30 Midazolam HCl 50 ml @ 1 mls/hr TITRATE IV Last administered on 10/01/16 08:04 ; Admin Dose 1 MLS/HR; Start 09/28/16 at 11:30 Fentanyl (Sublimaze) 100 ml @ 2.5 mls/hr TITRATE IV Last administered on 15:06; Admin Dose 2.5 MLS/HR; Start 09/29/16 at 09:00 Diagnostic Test (Pha) (Accu-Chek) 1 ea Q2H XX Last administered on 10/01/16 11 :06; Admin Dose 1 EA; Start 09/30/16 at 09:00 Acetaminophen 650 mg 650 mg Q4H PRN NGT PAIN AND OR ELEVATED TEMP Last administered on 10/01/16 06:21; Admin Dose 650 MG; Start 09/30/16 at 08:30 Cefepime HCl 50 ml @ 100 mls/hr Q24H IVPB Last administered on 09/30/16 12:27 ; Admin Dose 100 MLS/HR; Start 09/30/16 at 13:00 Norepinephrine/ Dextrose (Levophed/D5W) 500 ml @ 1.87 mls/hr TITRATE IV Last administered on 10/01/16 07:05; Admin Dose 7.5 MLS/HR; Start 09/30/16 at 19:00 DEBBY BURT MD Oct 01, 2016 12:15
[2016-10-01] MEDS: CEFEPIME 1GM/50 ML (PMX) 50 ML IVPB SCH (14:12)
[2016-10-01] MEDS: DEXTROSE 50% 50 ML SYRINGE IV PRN ×2 (15:25→16:03)
--- NOTE | 2016-10-01 17:17 | PN ---
Date/Time of Note Date/Time of Note DATE: 10/01/16 TIME: 17:11 Assessment/Plan VTE Prophylaxis VTE Prophylaxis Intervention: SCD's Lines/Catheters IV C[facility]ter Type [facility] Central Line Central line still needed: Yes Urinary Cath still in place: Yes Reason Cath still needed: urinary retention Assessment/Plan Chief Complaint/Hosp Course ASSESSMENT AND PLAN: 1. Acute respiratory failure, requiring oral intubation and ventilatory support secondary to pulmonary edema. Dr. Nunez is following in pulmonology consultation. Continue ventilator support. 2. End-stage renal disease, hemodialysis dependent. Dr. Hubbard is following the patient in nephrology consultation. Continue the hemodialysis per nephrology. 3. Diabetes mellitus type [address] Garay is following endocrinology consultation. Continue patient on insulin drip. The patient usually has an insulin pump, which is currently discontinued. 4. Peripheral arterial disease, status post vascular intervention. Continue Eliquis. 5. Anemia of chronic disease. Continue Epogen. 6. Coronary artery disease. Dr. Stephen is asked to see patient in cardiology consultation. 7. Possible healthcare acquired pneumonia. Continue antibiotics per ID. Dr. Allison is following in ID consultation. 8. Possible sepsis secondary to pneumonia. Continue IV fluids and pressors for hemodynamic support, ICU care. Continue heparin for deep venous thrombosis prophylaxis and Pepcid for peptic ulcer disease prophylaxis. Further recommendations based on clinical course. Plan of care discussed with Dr. Rosales. Problems: Subjective 24 Hr Interval Summary Free Text/Dictation Patient is continued on ventilatory support, pressors and sedation, insulin drip per protocol. Exam/Review of Systems Vital Signs Vitals Vital Signs Date Time Temp Pulse Resp B/P Pulse Ox O2 Delivery O2 Flow Rate FiO2 10/01/16 16:00 84 10/01/16 15:44 18 100 30 10/01/16 12:30 81/61 Mechanical Ventilator 10/01/16 12:00 99.5 09/28/16 04:26 10 Intake and Output 09/30/16 09/30/16 10/01/16 15:00 23:00 07:00 Intake Total 313.0 ml 1569.98 ml 34.0 ml Output Total 105 ml 4010 ml 25 ml Balance 208.0 ml -2440.02 ml 9.0 ml Exam GENERAL: Well-developed, well-nourished gentleman currently orally intubated on vent support, sedated. HEENT: Head is atraumatic, normocephalic. Patient has a right eye prosthesis. Left eye pupil is equal, round, reactive to light and accommodation. NECK: Supple, no cervical lymphadenopathy, no thyromegaly. CHEST: Lung sounds diminished at the bases. Scattered rhonchi bilaterally. Patient has a left chest Port-A-Cath. CARDIOVASCULAR: Normal S1, S2. No murmurs, gallops, clicks, rubs noted. ABDOMEN: Round, soft, nondistended, nontender. Bowel sounds present. EXTREMITIES: There is mild edema. There is no clubbing, cyanosis. Left upper extremity with AV graft. SKIN: No rash, petechiae noted. NEUROLOGIC: Patient is sedated. Results Result Diagram: 10/01/16 0400 10/01/16 0400 Results 24 hrs Laboratory Tests Test 09/30/16 17:45 09/30/16 19:25 09/30/16 21:16 09/30/16 23:13 Lactic Acid Level 3.8 H Bedside Glucose 148 174 214 Test 10/01/16 01:19 10/01/16 03:06 10/01/16 04:00 10/01/16 05:18 Bedside Glucose 235 H 215 190 White Blood Count 10.1 Red Blood Count 3.72 L Hemoglobin 11.1 L Hematocrit 34.9 L Mean Corpuscular Volume 93.8 Mean Corpuscular Hemoglobin 29.8 Mean Corpuscular Hemoglobin Concent 31.8 L Red Cell Distribution Width 17.2 H Platelet Count 102 #L Mean Platelet Volume 11.9 H Neutrophils % 84.4 H Lymphocytes % 9.4 L Monocytes % 4.3 Eosinophils % 0.8 Basophils % 0.5 Nucleated Red Blood Cells % 0.0 Neutrophils # 8.6 H Lymphocytes # 1.0 Monocytes # 0.4 Eosinophils # 0.1 Basophils # 0.1 Nucleated Red Blood Cells # 0.0 Sodium Level 139 Potassium Level 4.1 Chloride Level 97 Carbon Dioxide Level 23 Anion Gap 23 H Blood Urea Nitrogen 48 H Creatinine 7.77 H Glucose Level 219 Calcium Level 7.2 L Total Bilirubin 0.4 Direct Bilirubin 0.00 Indirect Bilirubin 0.4 Aspartate Amino Transf (AST/SGOT) 375 #H Alanine Aminotransferase (ALT/SGPT) 268 H Alkaline Phosphatase 267 H Total Protein 6.6 Albumin 3.4 Globulin 3.20 Albumin/Globulin Ratio 1.06 Test 10/01/16 07:01 10/01/16 09:31 10/01/16 11:02 10/01/16 13:23 Bedside Glucose 227 H 249 H 240 H 120 Test 10/01/16 15:22 10/01/16 15:44 10/01/16 16:02 10/01/16 16:26 Bedside Glucose 62 L 90 74 198 Test 10/01/16 16:54 Bedside Glucose 209 Medications Medications Current Medications Ondansetron HCl (Zofran Inj) 4 mg Q6H PRN IV NAUSEA AND/OR VOMITING; Start at 06:00 Acetaminophen (Tylenol Liquid) 650 mg Q6H PRN PO PAIN LEVEL 1-3 OR FEVER Last administered on 09/30/16 08:32; Admin Dose 650 MG; Start 09/28/16 at 06:00 Hydromorphone HCl (Dilaudid) 0.5 mg Q4H PRN IV PAIN LEVEL 7-10 Last administered on 09/30/16 23:48; Admin Dose 0.5 MG; Start 09/28/16 at 06:00 Heparin Sodium (Porcine) (Heparin (5000 Units/0.5 ml)) 5,000 unit Q12 SC Last administered on 10/01/16 09:37; Admin Dose 5,000 UNIT; Start 09/28/16 at 09:00 Miscellaneous Information 1 ea NOTE XX ; Start 09/28/16 at 06:30 Famotidine (Pepcid Iv) 20 mg DAILY IV Last administered on 10/01/16 09:45; Admin Dose 20 MG; Start 09/28/16 at 09:00 Dextrose (D50w Syringe) 25 ml Q15M PRN IV Till BS 80 mg/dL or above x2 Last administered on 10/01/16 16:03; Admin Dose 25 ML; Start 09/28/16 at 08:30 Dextrose 50 ml 50 ml Q15M PRN IV Till BS 80 mg/dL or above x2; Start 09/28/16 at 08:30 Propofol 100 ml @ 2.31 mls/hr Q12H IV Last administered on 09/30/16 13:17; Admin Dose 6.93 MLS/HR; Start 09/28/16 at 11:30 Midazolam HCl 50 ml @ 1 mls/hr TITRATE IV Last administered on 10/01/16 16:40 ; Admin Dose 5 MLS/HR; Start 09/28/16 at 11:30 Fentanyl (Sublimaze) 100 ml @ 2.5 mls/hr TITRATE IV Last administered on 15:06; Admin Dose 2.5 MLS/HR; Start 09/29/16 at 09:00 Diagnostic Test (Pha) (Accu-Chek) 1 ea Q2H XX Last administered on 10/01/16 16 :55; Admin Dose 1 EA; Start 09/30/16 at 09:00 Acetaminophen 650 mg 650 mg Q4H PRN NGT PAIN AND OR ELEVATED TEMP Last administered on 10/01/16 06:21; Admin Dose 650 MG; Start 09/30/16 at 08:30 Cefepime HCl 50 ml @ 100 mls/hr Q24H IVPB Last administered on 10/01/16 14:12 ; Admin Dose 100 MLS/HR; Start 09/30/16 at 13:00 Norepinephrine/ Dextrose (Levophed/D5W) 500 ml @ 1.87 mls/hr TITRATE IV ; Start 10/01/16 at 13:00 ANGELINA CASTREJON Oct 01, 2016 17:16
--- NOTE | 2016-10-01 17:59 | PN ---
DATE: 10/01/2016 SUBJECTIVE: No acute changes. The patient is lying comfortably in bed, intubated, sedated. Presso rs were discontinued this morning. VITAL SIGNS: T-max 100.5, T-current 98.2, pulse 85, respirations 18, blood pressure 110/72, saturat ion 97 on 30% FIO2. WBC 10.1, H and H 11.1 and 34.9, platelets 102, neutrophils 84.4. INDWELLINGS: Left upper extremity AV fistula, left chest Port-A-Cath, femoral triple lumen catheter , endotracheal tube, NG tube. MICROBIOLOGY: Cultures have been negative. DIAGNOSTICS: Chest x-ray from yesterday revealed stable patchy bilateral lower lung infiltrates and small left pleural effusion. ANTIMICROBIALS: 1. Cefepime. 2. Vancomycin. PHYSICAL EXAMINATION: GENERAL: This is a well-developed, ill-appearing, middle-aged white man who is in no distress. HEENT: Head atraumatic, normocephalic. Sclerae anicteric. Buccal mucosa dry. NECK: Supple, trachea midline. CHEST: Rise symmetrical. Breath sounds diminished to bases. HEART: S1, S2. ABDOMEN: Soft. Bowel tones hypoactive. EXTREMITIES: Without cyanosis. Bilateral trace edema. ASSESSMENT: 1. Sepsis with shock. 2. Acute respiratory failure, rule out aspiration. 3. Pneumonia. 4. Fluid overload. 5. End-stage renal disease, hemodialysis dependent. 6. Diabetes. 7. Anemia. 8. Coronary artery disease. PLAN: The patient remains stable off pressors; again cultures have been negative. We will send spu gerry for culture. Continue broad-spectrum antibiotics and follow recommendations of consultants. Dictated By: BIJAN LONGO SOFTWARE EDUCATOR for WILEY BURR/SERGO Conf#: [id number] DID#: [id number]
--- NOTE | 2016-10-01 20:12 | CONS ---
Date/Time of Note Date/Time of Note DATE: 10/01/16 TIME: 20:03 Assessment/Plan Assessment/Plan Problems: (1) Paresthesia Status: Acute (2) Swelling Status: Acute (3) Headache Status: Acute (4) Sinusitis Status: Acute (5) Paresthesias Status: Acute (6) Leg cramp Status: Acute (7) Presence of suprapubic catheter Status: Acute (8) Obstruction of suprapubic catheter Status: Acute (9) Complication of Foster catheter Status: Acute (10) Acute weakness Status: Acute (11) Moderate nausea Status: Acute (12) Hypocalcemia Status: Acute (13) UTI (urinary tract infection) Status: Acute (14) Hypocalcemia Status: Chronic (15) Diabetic ketoacidosis Status: Resolved (16) Dialysis patient Status: Chronic (17) Genitourinary symptoms Status: Acute (18) Hyperkalemia Status: Acute (19) Constipation Status: Acute (20) Hyperkalemia, diminished renal excretion Status: Acute (21) Abdominal pain Status: Acute (22) Retention of urine Status: Acute (23) Diarrhea Status: Acute (24) Nausea Status: Acute (25) Vomiting Status: Acute (26) Diabetes mellitus type 1, controlled, with complications Status: Chronic (27) 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, with long- term current use of insulin Status: Chronic (28) Chronic renal insufficiency Status: Chronic (29) Peripheral vascular disease (30) Diabetes mellitus type 1 with complications Status: Chronic (31) Scrotal erythema Status: Acute (32) Knee pain Status: Acute (33) Chronic pain Status: Chronic (34) Knee injury Status: Acute (35) HTN (hypertension) Status: Chronic (36) DM (diabetes mellitus) type 1 with ketoacidosis Status: Acute (37) CKD (chronic kidney disease) stage 5, GFR less than 15 ml/min Status: Chronic (38) Type 1 diabetes mellitus with diabetic nephropathy Status: Chronic (39) End stage renal failure on dialysis Status: Chronic (40) Shunt malfunction Status: Acute (41) Ischemic rest pain of lower extremity (42) Claudication in peripheral vascular disease (43) PAD (peripheral artery disease) Additional Assessment/Plan CAD s/p LAD PCI recent PAD s/p PTCA/stent of Right SFA- Stable Rest failure with pulm edema Patient is i ICU intubated BP MAP is in 75 to 80s will start him on Effient and ASA for his CAD and PAD He will need BB with tachcyardai and CAD HD continue plan for extubation as per Pulm Last echo with LVEF if normal. will get new echo to look at his LVEF> wll f.u thank you Dr Rosales for Cardiac and Vascular constulation. Consultation Date/Type/Reason Admit Date/Time Sep 28, 2016 at 05:39 Date of Consultation: Oct 01, 2016 Type of Consultation: Card and Vasc Interventions Hx of Present Illness Patient is know pt to me, he has CAD with s/p PCI of LAD [employer] by me, PTCA and stenting of Right SFA as well as Left SFA, ESRD on HD, HTN, DM on insulin pump, who came in to ER with pulm edema and acute rest failure, intubated in ICU now. mild elevated trop and non ischemic EKG. Constitutional: no complaints Past Medical History Medical History: coronary artery disease, diabetes, high cholesterol, hypertension Past Surgical History Past Surgical Hx: noncontributory, angioplasty, other Social History Smoking Status: Never smoker Exam/Review of Systems Vital Signs Vitals Vital Signs Date Time Temp Pulse Resp B/P Pulse Ox O2 Delivery O2 Flow Rate FiO2 10/01/16 19:07 100 18 100 30 10/01/16 17:00 98/57 Mechanical Ventilator 10/01/16 16:00 99.2 09/28/16 04:26 10 Intake and Output 09/30/16 09/30/16 10/01/16 15:00 23:00 07:00 Intake Total 313.0 ml 1569.98 ml 34.0 ml Output Total 105 ml 4010 ml 25 ml Balance 208.0 ml -2440.02 ml 9.0 ml Exam Constitutional: alert, oriented Psych: no complaints Head: normocephalic Eyes: nl conjunctiva ENMT: nl external ears & nose Neck: non-tender, supple Respiratory: clear to auscultation Cardiovascular: regular rate and rhythm Gastrointestinal: soft Musculoskeletal: nl extremities to inspection Results Result Diagram: 10/01/16 0400 10/01/16 0400 Results 24 hrs Laboratory Tests Test 09/30/16 21:16 09/30/16 23:13 10/01/16 01:19 10/01/16 03:06 Bedside Glucose 174 214 235 H 215 Test 10/01/16 04:00 10/01/16 05:18 10/01/16 07:01 10/01/16 09:31 White Blood Count 10.1 Red Blood Count 3.72 L Hemoglobin 11.1 L Hematocrit 34.9 L Mean Corpuscular Volume 93.8 Mean Corpuscular Hemoglobin 29.8 Mean Corpuscular Hemoglobin Concent 31.8 L Red Cell Distribution Width 17.2 H Platelet Count 102 #L Mean Platelet Volume 11.9 H Neutrophils % 84.4 H Lymphocytes % 9.4 L Monocytes % 4.3 Eosinophils % 0.8 Basophils % 0.5 Nucleated Red Blood Cells % 0.0 Neutrophils # 8.6 H Lymphocytes # 1.0 Monocytes # 0.4 Eosinophils # 0.1 Basophils # 0.1 Nucleated Red Blood Cells # 0.0 Sodium Level 139 Potassium Level 4.1 Chloride Level 97 Carbon Dioxide Level 23 Anion Gap 23 H Blood Urea Nitrogen 48 H Creatinine 7.77 H Glucose Level 219 Calcium Level 7.2 L Total Bilirubin 0.4 Direct Bilirubin 0.00 Indirect Bilirubin 0.4 Aspartate Amino Transf (AST/SGOT) 375 #H Alanine Aminotransferase (ALT/SGPT) 268 H Alkaline Phosphatase 267 H Total Protein 6.6 Albumin 3.4 Globulin 3.20 Albumin/Globulin Ratio 1.06 Bedside Glucose 190 227 H 249 H Test 10/01/16 11:02 10/01/16 13:23 10/01/16 15:22 10/01/16 15:44 Bedside Glucose 240 H 120 62 L 90 Test 10/01/16 16:02 10/01/16 16:26 10/01/16 16:54 10/01/16 18:35 Bedside Glucose 74 198 209 186 Test 10/01/16 19:37 Bedside Glucose 177 Medications Medications Current Medications Ondansetron HCl (Zofran Inj) 4 mg Q6H PRN IV NAUSEA AND/OR VOMITING; Start at 06:00 Acetaminophen (Tylenol Liquid) 650 mg Q6H PRN PO PAIN LEVEL 1-3 OR FEVER Last administered on 09/30/16 08:32; Admin Dose 650 MG; Start 09/28/16 at 06:00 Hydromorphone HCl (Dilaudid) 0.5 mg Q4H PRN IV PAIN LEVEL 7-10 Last administered on 09/30/16 23:48; Admin Dose 0.5 MG; Start 09/28/16 at 06:00 Heparin Sodium (Porcine) (Heparin (5000 Units/0.5 ml)) 5,000 unit Q12 SC Last administered on 10/01/16 09:37; Admin Dose 5,000 UNIT; Start 09/28/16 at 09:00 Miscellaneous Information 1 ea NOTE XX ; Start 09/28/16 at 06:30 Famotidine (Pepcid Iv) 20 mg DAILY IV Last administered on 10/01/16 09:45; Admin Dose 20 MG; Start 09/28/16 at 09:00 Dextrose (D50w Syringe) 25 ml Q15M PRN IV Till BS 80 mg/dL or above x2 Last administered on 10/01/16 16:03; Admin Dose 25 ML; Start 09/28/16 at 08:30 Dextrose 50 ml 50 ml Q15M PRN IV Till BS 80 mg/dL or above x2; Start 09/28/16 at 08:30 Propofol 100 ml @ 2.31 mls/hr Q12H IV Last administered on 09/30/16 13:17; Admin Dose 6.93 MLS/HR; Start 09/28/16 at 11:30 Midazolam HCl 50 ml @ 1 mls/hr TITRATE IV Last administered on 10/01/16 16:40 ; Admin Dose 5 MLS/HR; Start 09/28/16 at 11:30 Fentanyl (Sublimaze) 100 ml @ 2.5 mls/hr TITRATE IV Last administered on 15:06; Admin Dose 2.5 MLS/HR; Start 09/29/16 at 09:00 Diagnostic Test (Pha) (Accu-Chek) 1 ea Q2H XX Last administered on 10/01/16 19 :38; Admin Dose 1 EA; Start 09/30/16 at 09:00 Acetaminophen 650 mg 650 mg Q4H PRN NGT PAIN AND OR ELEVATED TEMP Last administered on 10/01/16 06:21; Admin Dose 650 MG; Start 09/30/16 at 08:30 Cefepime HCl 50 ml @ 100 mls/hr Q24H IVPB Last administered on 10/01/16 14:12 ; Admin Dose 100 MLS/HR; Start 09/30/16 at 13:00 Norepinephrine/ Dextrose (Levophed/D5W) 500 ml @ 1.87 mls/hr TITRATE IV ; Start 10/01/16 at 13:00 CYNDIE GARCIA MD Oct 01, 2016 20:12
[2016-10-01] MEDS: FENTAnyl (DRIP) 1000 mcg/100mL 100 ML IV SCH (21:25)
[2016-10-02] VITALS (78 sets, daily range): BP systolic 78–142; BP diastolic 58–94; PULSE 71–95; RESP 18
[2016-10-02] MEDS: ACCU-CHEK XX SCH ×12 (02:00→23:14)
[2016-10-02] MEDS: MIDAZOLAM (DRIP) 50 mg/50 mL 50 ML IV SCH ×3 (03:46→21:44)
--- NOTE | 2016-10-02 08:29 | CONS ---
Date/Time of Note Date/Time of Note DATE: 10/02/16 TIME: 08:27 Assessment/Plan Assessment/Plan Problems: (1) Type 1 diabetes mellitus with diabetic nephropathy Status: Chronic Comment: Stable on insulin drip, continue same until extubated and more awake (2) End stage renal failure on dialysis Status: Chronic Comment: per nephrology Consultation Date/Type/Reason Admit Date/Time Sep 28, 2016 at 05:39 Initial Consult Date 09/28/16 Type of Consultation: endocrinology Reason for Consultation dm1 on a pump when not critical 24 HR Interval Summary Free Text/Dictation sedated Subjective hx not possible: pt non-verbal, pt critical status Exam/Review of Systems Vital Signs Vitals Vital Signs Date Time Temp Pulse Resp B/P Pulse Ox O2 Delivery O2 Flow Rate FiO2 10/02/16 06:30 83 18 127/85 100 10/02/16 06:00 Mechanical Ventilator 10/02/16 05:07 30 10/02/16 04:00 98.7 Intake and Output 10/01/16 10/01/16 10/02/16 15:00 23:00 07:00 Intake Total 111.5 ml 56.5 ml 64.5 ml Output Total 10 ml 0 ml 0 ml Balance 101.5 ml 56.5 ml 64.5 ml Exam sedated and nonresponsive Respiratory: clear to auscultation, normal air movement Cardiovascular: nl pulses, regular rate and rhythm Results Result Diagram: 10/01/16 0400 10/01/16 0400 Results 24 hrs Laboratory Tests Test 10/01/16 09:31 10/01/16 11:02 10/01/16 13:23 10/01/16 15:22 Bedside Glucose 249 H 240 H 120 62 L Test 10/01/16 15:44 10/01/16 16:02 10/01/16 16:26 10/01/16 16:54 Bedside Glucose 90 74 198 209 Test 10/01/16 18:35 10/01/16 19:37 10/01/16 20:08 10/01/16 22:03 Bedside Glucose 186 177 164 153 Test 10/02/16 00:12 10/02/16 02:07 10/02/16 04:04 10/02/16 05:11 Bedside Glucose 162 169 148 167 Test 10/02/16 06:11 10/02/16 07:07 Bedside Glucose 166 154 Medications Medications Current Medications Ondansetron HCl (Zofran Inj) 4 mg Q6H PRN IV NAUSEA AND/OR VOMITING; Start at 06:00 Acetaminophen (Tylenol Liquid) 650 mg Q6H PRN PO PAIN LEVEL 1-3 OR FEVER Last administered on 09/30/16 08:32; Admin Dose 650 MG; Start 09/28/16 at 06:00 Hydromorphone HCl (Dilaudid) 0.5 mg Q4H PRN IV PAIN LEVEL 7-10 Last administered on 09/30/16 23:48; Admin Dose 0.5 MG; Start 09/28/16 at 06:00 Heparin Sodium (Porcine) (Heparin (5000 Units/0.5 ml)) 5,000 unit Q12 SC Last administered on 10/01/16 20:13; Admin Dose 5,000 UNIT; Start 09/28/16 at 09:00 Miscellaneous Information 1 ea NOTE XX ; Start 09/28/16 at 06:30 Famotidine (Pepcid Iv) 20 mg DAILY IV Last administered on 10/01/16 09:45; Admin Dose 20 MG; Start 09/28/16 at 09:00 Dextrose (D50w Syringe) 25 ml Q15M PRN IV Till BS 80 mg/dL or above x2 Last administered on 10/01/16 16:03; Admin Dose 25 ML; Start 09/28/16 at 08:30 Dextrose 50 ml 50 ml Q15M PRN IV Till BS 80 mg/dL or above x2; Start 09/28/16 at 08:30 Propofol 100 ml @ 2.31 mls/hr Q12H IV Last administered on 09/30/16 13:17; Admin Dose 6.93 MLS/HR; Start 09/28/16 at 11:30 Midazolam HCl 50 ml @ 1 mls/hr TITRATE IV Last administered on 10/02/16 03:46 ; Admin Dose 5 MLS/HR; Start 09/28/16 at 11:30 Fentanyl (Sublimaze) 100 ml @ 2.5 mls/hr TITRATE IV Last administered on 21:25; Admin Dose 2.5 MLS/HR; Start 09/29/16 at 09:00 Diagnostic Test (Pha) (Accu-Chek) 1 ea Q2H XX Last administered on 10/02/16 07 :00; Admin Dose 1 EA; Start 09/30/16 at 09:00 Acetaminophen 650 mg 650 mg Q4H PRN NGT PAIN AND OR ELEVATED TEMP Last administered on 10/01/16 06:21; Admin Dose 650 MG; Start 09/30/16 at 08:30 Cefepime HCl 50 ml @ 100 mls/hr Q24H IVPB Last administered on 10/01/16 14:12 ; Admin Dose 100 MLS/HR; Start 09/30/16 at 13:00 Norepinephrine/ Dextrose (Levophed/D5W) 500 ml @ 1.87 mls/hr TITRATE IV ; Start 10/01/16 at 13:00 Prasugrel (Effient) 10 mg DAILY PO ; Start 10/02/16 at 09:00 Aspirin (Halfprin) 81 mg DAILY PO ; Start 10/02/16 at 09:00 Carvedilol (Coreg) 6.25 mg BID NGT Last administered on 10/01/16 21:35; Admin Dose 6.25 MG; Start 10/01/16 at 21:00 DEBBY BURT MD Oct 02, 2016 08:29
--- NOTE | 2016-10-02 08:39 | PN ---
Date/Time of Note Date/Time of Note DATE: 10/02/16 TIME: 08:12 Assessment/Plan VTE Prophylaxis VTE Prophylaxis Intervention: heparin Lines/Catheters IV C[facility]ter Type (from [facility]): Central Line Central line still needed: Yes Urinary Cath still in place: No Assessment/Plan Assessment/Plan - Acute respiratory failure- sp oral intubation and on ventilatory support secondary to pulmonary edema. - per Dr. Nunez in pulmonology consultation. - Continue ventilator support. - Possible healthcare acquired pneumonia. afebrile at present - per Dr. Allison in ID consultation.Continue antibiotics per ID. - Possible sepsis secondary to pneumonia. - con. ICU care - IV fluids and pressors for hemodynamic support - Diabetes mellitus type 1 with hyperglycemia. The patient usually has an insulin pump, which is currently discontinued. - per Dr. Garay in endocrinology consultation. - Glycemic control - Continue patient on insulin drip- 2 units/hr . -. End-stage renal disease, hemodialysis dependent on [id number] schedule. HD acces [facility] - per Dr. Hubbard in nephrology consultation. - Continue the hemodialysis per nephrology. - Peripheral arterial disease, status post vascular intervention. Continue Eliquis. - Anemia of chronic disease. - Continue Epogen. - monitor H/H - Coronary artery disease. - per Dr. Stephen in cardiology consultation. - Heparin for deep venous thrombosis prophylaxis - Pepcid for peptic ulcer disease prophylaxis. No Chem panel available today, will order today- fu Further recommendations based on clinical course. Total critical care time spent - 30 mins- assessing patient, discussing with staff. Plan of care discussed with Dr. Rosales. Subjective 24 Hr Interval Summary Free Text/Dictation Patient remains orally intubated. on ventilator.On Fentanyl drip at 25 mcg/hr, on versed drip 5 mcg/hr, insulin drip at 2 units/hr. NGT noted- intact. Afebrile. HD- TTS. dw staff Subjective hx not possible: pt non-verbal Constitutional: requiring IVF, requiring O2 Exam/Review of Systems Vital Signs Vitals Vital Signs Date Time Temp Pulse Resp B/P Pulse Ox O2 Delivery O2 Flow Rate FiO2 10/02/16 06:30 83 18 127/85 100 10/02/16 06:00 Mechanical Ventilator 10/02/16 05:07 30 10/02/16 04:00 98.7 Intake and Output 10/01/16 10/01/16 10/02/16 15:00 23:00 07:00 Intake Total 111.5 ml 56.5 ml 64.5 ml Output Total 10 ml 0 ml 0 ml Balance 101.5 ml 56.5 ml 64.5 ml Exam Constitutional: frail, non-verbal Eyes: nl sclera ENMT: nl external ears & nose Neck: non-tender Respiratory: diminished breath sounds Cardiovascular: nl pulses, other ([facility]- HD access- good bruit/thrill, DDI) Gastrointestinal: non-tender Extremities: edema (Bilateral hands/bliatreal feet) 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: unresponsive Skin: nl turgor, other (multiple tatoos noted) Lymph: nontender Results Result Diagram: 10/01/1639910/01/16 0400 Results 24 hrs Laboratory Tests Test 10/01/16 09:31 10/01/16 11:02 10/01/16 13:23 10/01/16 15:22 Bedside Glucose 249 H 240 H 120 62 L Test 10/01/16 15:44 10/01/16 16:02 10/01/16 16:26 10/01/16 16:54 Bedside Glucose 90 74 198 209 Test 10/01/16 18:35 10/01/16 19:37 10/01/16 20:08 10/01/16 22:03 Bedside Glucose 186 177 164 153 Test 10/02/16 00:12 10/02/16 02:07 10/02/16 04:04 10/02/16 05:11 Bedside Glucose 162 169 148 167 Test 10/02/16 06:11 10/02/16 07:07 Bedside Glucose 166 154 Medications Medications Current Medications Ondansetron HCl (Zofran Inj) 4 mg Q6H PRN IV NAUSEA AND/OR VOMITING; Start at 06:00 Acetaminophen (Tylenol Liquid) 650 mg Q6H PRN PO PAIN LEVEL 1-3 OR FEVER Last administered on 09/30/16 08:32; Admin Dose 650 MG; Start 09/28/16 at 06:00 Hydromorphone HCl (Dilaudid) 0.5 mg Q4H PRN IV PAIN LEVEL 7-10 Last administered on 09/30/16 23:48; Admin Dose 0.5 MG; Start 09/28/16 at 06:00 Heparin Sodium (Porcine) (Heparin (5000 Units/0.5 ml)) 5,000 unit Q12 SC Last administered on 10/01/16 20:13; Admin Dose 5,000 UNIT; Start 09/28/16 at 09:00 Miscellaneous Information 1 ea NOTE XX ; Start 09/28/16 at 06:30 Famotidine (Pepcid Iv) 20 mg DAILY IV Last administered on 10/01/16 09:45; Admin Dose 20 MG; Start 09/28/16 at 09:00 Dextrose (D50w Syringe) 25 ml Q15M PRN IV Till BS 80 mg/dL or above x2 Last administered on 10/01/16 16:03; Admin Dose 25 ML; Start 09/28/16 at 08:30 Dextrose 50 ml 50 ml Q15M PRN IV Till BS 80 mg/dL or above x2; Start 09/28/16 at 08:30 Propofol 100 ml @ 2.31 mls/hr Q12H IV Last administered on 09/30/16 13:17; Admin Dose 6.93 MLS/HR; Start 09/28/16 at 11:30 Midazolam HCl 50 ml @ 1 mls/hr TITRATE IV Last administered on 10/02/16 03:46 ; Admin Dose 5 MLS/HR; Start 09/28/16 at 11:30 Fentanyl (Sublimaze) 100 ml @ 2.5 mls/hr TITRATE IV Last administered on 21:25; Admin Dose 2.5 MLS/HR; Start 09/29/16 at 09:00 Diagnostic Test (Pha) (Accu-Chek) 1 ea Q2H XX Last administered on 10/02/16 05 :00; Admin Dose 1 EA; Start 09/30/16 at 09:00 Acetaminophen 650 mg 650 mg Q4H PRN NGT PAIN AND OR ELEVATED TEMP Last administered on 10/01/16 06:21; Admin Dose 650 MG; Start 09/30/16 at 08:30 Cefepime HCl 50 ml @ 100 mls/hr Q24H IVPB Last administered on 10/01/16 14:12 ; Admin Dose 100 MLS/HR; Start 09/30/16 at 13:00 Norepinephrine/ Dextrose (Levophed/D5W) 500 ml @ 1.87 mls/hr TITRATE IV ; Start 10/01/16 at 13:00 Prasugrel (Effient) 10 mg DAILY PO ; Start 10/02/16 at 09:00 Aspirin (Halfprin) 81 mg DAILY PO ; Start 10/02/16 at 09:00 Carvedilol (Coreg) 6.25 mg BID NGT Last administered on 10/01/16t 21:35; Admin Dose 6.25 MG; Start 10/01/16 at 21:00 PEDRO BENSON Oct 02, 2016 08:23
[2016-10-02] MEDS: FAMOTIDINE 20 MG INJ IV SCH (09:07)
[2016-10-02] MEDS: ASPIRIN (EC) 81 MG TAB PO SCH (09:08)
[2016-10-02] MEDS: PRASUGREL HYDROCHLORIDE 10 MG TABLET PO SCH (09:08)
[2016-10-02] MEDS: HEPARIN 5,000 UNIT/0.5 ML VIAL SC SCH ×2 (09:10→21:02)
--- NOTE | 2016-10-02 09:15 | CONS ---
Date/Time of Note Date/Time of Note DATE: 10/02/16 TIME: 09:09 Assessment/Plan Assessment/Plan Chief Complaint/Hosp Course 1. ESRD , he is on maintenance hemodialysis . He is going to have hemodialysis today .Will check labs for today . 2. Type I DM 3. flash pulmonary edema 4. HTN 5. CAD 6. respiratory failure on vent 7. fever , will draw blood cultures X 2 . 8. ALOC , he is sedated on Vent . Problems: Consultation Date/Type/Reason Admit Date/Time Sep 28, 2016 at 05:39 Initial Consult Date 09/28/16 Type of Consultation: endocrinology 24 HR Interval Summary Free Text/Dictation He is in the ICU , sedated , intubated and on a ventilator Subjective hx not possible: pt non-verbal Exam/Review of Systems Vital Signs Vitals Vital Signs Date Time Temp Pulse Resp B/P Pulse Ox O2 Delivery O2 Flow Rate FiO2 10/02/16 08:00 83 10/02/16 07:40 18 99 30 10/02/16 06:30 127/85 10/02/16 06:00 Mechanical Ventilator 10/02/16 04:00 98.7 Intake and Output 10/01/16 10/01/16 10/02/16 15:00 23:00 07:00 Intake Total 111.5 ml 56.5 ml 64.5 ml Output Total 10 ml 0 ml 0 ml Balance 101.5 ml 56.5 ml 64.5 ml Exam Constitutional: non-verbal Respiratory: clear to auscultation, diminished breath sounds Cardiovascular: regular rate and rhythm Gastrointestinal: soft Musculoskeletal: nl extremities to inspection Results Result Diagram: 10/01/16 0400 10/01/16 0400 Results 24 hrs Laboratory Tests Test 10/01/16 09:31 10/01/16 11:02 10/01/16 13:23 10/01/16 15:22 Bedside Glucose 249 H 240 H 120 62 L Test 10/01/16 15:44 10/01/16 16:02 10/01/16 16:26 10/01/16 16:54 Bedside Glucose 90 74 198 209 Test 10/01/16 18:35 10/01/16 19:37 10/01/16 20:08 10/01/16 22:03 Bedside Glucose 186 177 164 153 Test 10/02/16 00:12 10/02/16 02:07 10/02/16 04:04 10/02/16 05:11 Bedside Glucose 162 169 148 167 Test 10/02/16 06:11 10/02/16 07:07 Bedside Glucose 166 154 Medications Medications Current Medications Ondansetron HCl (Zofran Inj) 4 mg Q6H PRN IV NAUSEA AND/OR VOMITING; Start at 06:00 Acetaminophen (Tylenol Liquid) 650 mg Q6H PRN PO PAIN LEVEL 1-3 OR FEVER Last administered on 09/30/16 08:32; Admin Dose 650 MG; Start 09/28/16 at 06:00 Hydromorphone HCl (Dilaudid) 0.5 mg Q4H PRN IV PAIN LEVEL 7-10 Last administered on 09/30/16 23:48; Admin Dose 0.5 MG; Start 09/28/16 at 06:00 Heparin Sodium (Porcine) (Heparin (5000 Units/0.5 ml)) 5,000 unit Q12 SC Last administered on 10/01/16 20:13; Admin Dose 5,000 UNIT; Start 09/28/16 at 09:00 Miscellaneous Information 1 ea NOTE XX ; Start 09/28/16 at 06:30 Famotidine (Pepcid Iv) 20 mg DAILY IV Last administered on 10/01/16 09:45; Admin Dose 20 MG; Start 09/28/16 at 09:00 Dextrose (D50w Syringe) 25 ml Q15M PRN IV Till BS 80 mg/dL or above x2 Last administered on 10/01/16 16:03; Admin Dose 25 ML; Start 09/28/16 at 08:30 Dextrose 50 ml 50 ml Q15M PRN IV Till BS 80 mg/dL or above x2; Start 09/28/16 at 08:30 Propofol 100 ml @ 2.31 mls/hr Q12H IV Last administered on 09/30/16 13:17; Admin Dose 6.93 MLS/HR; Start 09/28/16 at 11:30 Midazolam HCl 50 ml @ 1 mls/hr TITRATE IV Last administered on 10/02/16 03:46 ; Admin Dose 5 MLS/HR; Start 09/28/16 at 11:30 Fentanyl (Sublimaze) 100 ml @ 2.5 mls/hr TITRATE IV Last administered on 21:25; Admin Dose 2.5 MLS/HR; Start 09/29/16 at 09:00 Diagnostic Test (Pha) (Accu-Chek) 1 ea Q2H XX Last administered on 10/02/16 07 :00; Admin Dose 1 EA; Start 09/30/16 at 09:00 Acetaminophen 650 mg 650 mg Q4H PRN NGT PAIN AND OR ELEVATED TEMP Last administered on 10/01/16 06:21; Admin Dose 650 MG; Start 09/30/16 at 08:30 Cefepime HCl 50 ml @ 100 mls/hr Q24H IVPB Last administered on 10/01/16 14:12 ; Admin Dose 100 MLS/HR; Start 09/30/16 at 13:00 Norepinephrine/ Dextrose (Levophed/D5W) 500 ml @ 1.87 mls/hr TITRATE IV ; Start 10/01/16 at 13:00 Prasugrel (Effient) 10 mg DAILY PO ; Start 10/02/16 at 09:00 Aspirin (Halfprin) 81 mg DAILY PO ; Start 10/02/16 at 09:00 Carvedilol (Coreg) 6.25 mg BID NGT Last administered on 10/01/16 21:35; Admin Dose 6.25 MG; Start 10/01/16 at 21:00 DONY HOWARD MD Oct 02, 2016 09:15 DONY HOWARD MD Oct 02, 2016 09:15
--- NOTE | 2016-10-02 10:09 | CONS ---
Date/Time of Note Date/Time of Note DATE: 10/02/16 TIME: 10:06 Assessment/Plan Assessment/Plan Additional Assessment/Plan Ventilator settings; AC of 18, tidal volume 600, PEEP of 5, 30% FiO2. Patient is currently on fentanyl 25 mics per hour, Versed 5 mg/h. Getting hemodialysis at bedside. Assessment and recommendations; 1. Patient admitted for respiratory failure due to fluid overload likely from missing dialysis. 2. History of diabetes, hypertension and coronary artery disease. Hold sedation for now. When the patient is off sedation he will be evaluated for possible weaning from ventilator. Meanwhile obtain a chest x-ray. Consultation Date/Type/Reason Admit Date/Time Sep 28, 2016 at 05:39 Initial Consult Date 09/28/16 Type of Consultation: Pulmonary/critical care 24 HR Interval Summary Free Text/Dictation Patient's condition remains critical. Still requiring full ventilator support. Patient was given a sedation vacation yesterday however the patient did not meet extubation criteria due to very poor spontaneous minute ventilation with significant hypoventilation. General exam; middle-aged male, orally intubated, sedated. Currently in no distress. Exam/Review of Systems Vital Signs Vitals Vital Signs Date Time Temp Pulse Resp B/P Pulse Ox O2 Delivery O2 Flow Rate FiO2 10/02/16 09:54 85 10/02/16 09:25 18 100 30 10/02/16 06:30 127/85 10/02/16 06:00 Mechanical Ventilator 10/02/16 04:00 98.7 Intake and Output 10/01/16 10/01/16 10/02/16 14:59 22:59 06:59 Intake Total 58.0 ml 105 ml 74.0 ml Output Total 10 ml 0 ml 0 ml Balance 48.0 ml 105 ml 74.0 ml Exam HEENT examination; supple neck, no JVD. No lymphadenopathy. Midline trachea. No thyromegaly. Orally intubated. Patient has fair dentition. Chest exam; clear to auscultation. S1-S2 audible, no murmurs. Regular rhythm. Abdomen examination; soft, no organomegaly. No distention. Bowel sounds audible. Extremity exam is; no edema. LABORATORY ANALYST examination; patient is sedated. Results Result Diagram: 10/01/16 0400 10/01/16 0400 Results 24 hrs Laboratory Tests Test 10/01/16 11:02 10/01/16 13:23 10/01/16 15:22 10/01/16 15:44 Bedside Glucose 240 H 120 62 L 90 Test 10/01/16 16:02 10/01/16 16:26 10/01/16 16:54 10/01/16 18:35 Bedside Glucose 74 198 209 186 Test 10/01/16 19:37 10/01/16 20:08 10/01/16 22:03 10/02/16 00:12 Bedside Glucose 177 164 153 162 Test 10/02/16 02:07 10/02/16 04:04 10/02/16 05:11 10/02/16 06:11 Bedside Glucose 169 148 167 166 Test 10/02/16 07:07 10/02/16 09:14 Bedside Glucose 154 187 Medications Medications Current Medications Ondansetron HCl (Zofran Inj) 4 mg Q6H PRN IV NAUSEA AND/OR VOMITING; Start at 06:00 Acetaminophen (Tylenol Liquid) 650 mg Q6H PRN PO PAIN LEVEL 1-3 OR FEVER Last administered on 09/30/16 08:32; Admin Dose 650 MG; Start 09/28/16 at 06:00 Hydromorphone HCl (Dilaudid) 0.5 mg Q4H PRN IV PAIN LEVEL 7-10 Last administered on 09/30/16 23:48; Admin Dose 0.5 MG; Start 09/28/16 at 06:00 Heparin Sodium (Porcine) (Heparin (5000 Units/0.5 ml)) 5,000 unit Q12 SC Last administered on 10/02/16 09:10; Admin Dose 5,000 UNIT; Start 09/28/16 at 09:00 Miscellaneous Information 1 ea NOTE XX ; Start 09/28/16 at 06:30 Famotidine (Pepcid Iv) 20 mg DAILY IV Last administered on 10/02/16 09:07; Admin Dose 20 MG; Start 09/28/16 at 09:00 Dextrose (D50w Syringe) 25 ml Q15M PRN IV Till BS 80 mg/dL or above x2 Last administered on 10/01/16 16:03; Admin Dose 25 ML; Start 09/28/16 at 08:30 Dextrose 50 ml 50 ml Q15M PRN IV Till BS 80 mg/dL or above x2; Start 09/28/16 at 08:30 Propofol 100 ml @ 2.31 mls/hr Q12H IV Last administered on 09/30/16 13:17; Admin Dose 6.93 MLS/HR; Start 09/28/16 at 11:30 Midazolam HCl 50 ml @ 1 mls/hr TITRATE IV Last administered on 10/02/16 03:46 ; Admin Dose 5 MLS/HR; Start 09/28/16 at 11:30 Fentanyl (Sublimaze) 100 ml @ 2.5 mls/hr TITRATE IV Last administered on 21:25; Admin Dose 2.5 MLS/HR; Start 09/29/16 at 09:00 Diagnostic Test (Pha) (Accu-Chek) 1 ea Q2H XX Last administered on 10/02/16 09 :11; Admin Dose 1 EA; Start 09/30/16 at 09:00 Acetaminophen 650 mg 650 mg Q4H PRN NGT PAIN AND OR ELEVATED TEMP Last administered on 10/01/16 06:21; Admin Dose 650 MG; Start 09/30/16 at 08:30 Cefepime HCl 50 ml @ 100 mls/hr Q24H IVPB Last administered on 10/01/16 14:12 ; Admin Dose 100 MLS/HR; Start 09/30/16 at 13:00 Norepinephrine/ Dextrose (Levophed/D5W) 500 ml @ 1.87 mls/hr TITRATE IV ; Start 10/01/16 at 13:00 Prasugrel (Effient) 10 mg DAILY PO Last administered on 10/02/16 09:08; Admin Dose 10 MG; Start 10/02/16 at 09:00 Aspirin (Halfprin) 81 mg DAILY PO Last administered on 10/02/16 09:08; Admin Dose 81 MG; Start 10/02/16 at 09:00 Carvedilol (Coreg) 6.25 mg BID NGT Last administered on 10/02/16 09:07; Admin Dose 6.25 MG; Start 10/01/16 at 21:00 ELTON FELIX Oct 02, 2016 10:09
--- NOTE | 2016-10-02 10:11 | RADRPT ---
PROCEDURE: US Lower extremity Venous. CLINICAL INDICATION: Bilateral lower extremity swelling TECHNIQUE: Multiple sonographic images of the bilateral lower extremity deep venous system was obt ained utilizing grayscale, color-flow, compressive sonography and doppler imaging with augmentation. The images were reviewed on a PACS workstation. COMPARISON: 07/27/16 FINDINGS: There is normal compressibility and flow within the bilateral common femoral, femoral , posterior ti bial and popliteal veins. RPTAT: AA IMPRESSION: No sonographic evidence for deep venous thrombosis. Previously seen DVT in the right femoral vein is not visualized. .Giancarlo Xiao MD, MD Date Time Electronically viewed and signed by .Giancarlo Xiao MD, on 10/02/2016 10:11 .S/
--- NOTE | 2016-10-02 10:13 | RADRPT ---
PROCEDURE: US upper extremity Venous. CLINICAL INDICATION: Bilateral arm swelling TECHNIQUE: Multiple sonographic images of the bilateral upper extremity venous system was obtained utilizing grayscale, color-flow, compressive sonography and doppler imaging with augmentation. The images were reviewed on a PACS workstation. COMPARISON: None. FINDINGS: There is normal compressibility and flow within the bilateral internal jugular vein, subclavian vein , axillary vein, brachial, cephalic, radial and ulnar veins. The right basilic vein is patent. The left basilic vein was not seen. RPTAT: AA IMPRESSION: No sonographic evidence for venous thrombosis. .Giancarlo Xiao MD, MD Date Time Electronically viewed and signed by .Giancarlo Xiao MD, on 10/02/2016 10:12 .S/
[2016-10-02 11:30] LABS: ALBUMIN 3.8 g/dl (3.3-4.9); POTASSIUM 3.7 mmol/L (3.5-5.1)
[2016-10-02] MEDS: PROPOFOL 100 ML IV SCH ×2 (11:30→23:17)
[2016-10-02 11:33] LABS: ALBUMIN/GLOBULIN RATIO 1.02; BILIRUBIN,INDIRECT 0.3 mg/dl (0-1.1); BILIRUBIN,TOTAL 0.3 mg/dl (0.2-1.3); CREATININE 5.93 mg/dl (0.61-1.24); TOTAL PROTEIN 7.5 g/dl (6.1-8.1)
[2016-10-02] MEDS: CEFEPIME 1GM/50 ML (PMX) 50 ML IVPB SCH (13:07)
--- NOTE | 2016-10-02 13:37 | RADRPT ---
PROCEDURE: XR Chest. CLINICAL INDICATION: CHF TECHNIQUE: Single frontal view of the chest was obtained. COMPARISON: Chest x-ray from 09/30/2016 FINDINGS: The endotracheal tube, enteric tube, and left-sided Port-A-Cath are unchanged in position. The aortic arch is calcified. There are low lung volumes with mildly decreased pulmonary vascular congestion. There is bibasilar atelectasis. The heart and mediastinum are within normal limits. There is no significant pleural effusion or pneumothorax. IMPRESSION: Mildly improved congestive changes. Low lung volumes and bibasilar atelectasis. Lines and support tubes are unchanged. Aortic atherosclerosis. RPTAT: EE Physician Gatito Date Time Electronically viewed and signed by Physician Gatito on 10/02/2016 13:37 /
--- NOTE | 2016-10-02 14:55 | PN ---
DATE: 10/02/2016 SUBJECTIVE: No acute changes. The patient is intubated, lying comfortably in bed. No fevers. No labs this morning. MICROBIOLOGY: Sputum culture came back negative. DIAGNOSTICS: Chest x-ray this morning revealed improved congestive changes. Ultrasound of the extr emities revealed no DVT. INDWELLINGS: Endotracheal tube, NG tube, left upper extremity AV fistula, left chest Port-A-Cath, f emoral triple-lumen catheter. ANTIMICROBIALS: 1. Vancomycin. 2. Cefepime. PHYSICAL EXAMINATION: GENERAL: Chronically ill-appearing, middle-aged man who is in no distress. HEENT: Head atraumatic, normocephalic. Sclerae anicteric. Buccal mucosa dry. NECK: Supple, trachea midline. CHEST: Rise symmetrical. Breath sounds diminished to bases. HEART: S1, S2. ABDOMEN: Soft, bowel sounds present. EXTREMITIES: With bilateral trace edema. ASSESSMENT: 1. Acute respiratory failure secondary to fluid overload, possible aspiration event. 2. Status post shock. 3. End-stage renal disease, hemodialysis dependent. 4. Diabetes. 5. Coronary artery disease. PLAN: The patient remains stable off pressors. Continue present care, antibiotics. Follow recomme ndations of consultants. Dictated By: BIJAN LONGO MEDICAL CLAIMS MANAGER for [employer] Conf#: [id number] DID#: [id number]
--- NOTE | 2016-10-02 18:46 | CONS ---
Date/Time of Note Date/Time of Note DATE: 10/02/16 TIME: 18:45 Consult Date/Type/Reason Admit Date/Time Sep 28, 2016 at 05:39 Initial Consult Date 10/01/16 Type of Consultation: Cardiac and Vasc Int Objective Vital Signs Date Time Temp Pulse Resp B/P Pulse Ox O2 Delivery O2 Flow Rate FiO2 10/02/16 18:30 90 18 132/78 100 Mechanical Ventilator 10/02/16 17:20 30 10/02/16 16:00 98.6 Intake and Output 10/01/16 10/01/16 10/02/16 15:00 23:00 07:00 Intake Total 111.5 ml 56.5 ml 74.0 ml Output Total 10 ml 0 ml 0 ml Balance 101.5 ml 56.5 ml 74.0 ml Results/Medications Result Diagram: 10/01/16 0400 10/02/16 1015 Results 24 hrs Laboratory Tests Test 10/01/16 19:37 10/01/16 20:08 10/01/16 22:03 10/02/16 00:12 Bedside Glucose 177 164 153 162 Test 10/02/16 02:07 10/02/16 04:04 10/02/16 05:11 10/02/16 06:11 Bedside Glucose 169 148 167 166 Test 10/02/16 07:07 10/02/16 09:14 10/02/16 10:15 10/02/16 11:11 Bedside Glucose 154 187 145 Sodium Level 142 Potassium Level 3.7 Chloride Level 99 Carbon Dioxide Level 25 Anion Gap 22 H Blood Urea Nitrogen 40 H Creatinine 5.93 H Glucose Level 172 Calcium Level 8.0 L Total Bilirubin 0.3 Direct Bilirubin 0.00 Indirect Bilirubin 0.3 Aspartate Amino Transf (AST/SGOT) 301 H Alanine Aminotransferase (ALT/SGPT) 392 H Alkaline Phosphatase 287 H Total Protein 7.5 Albumin 3.8 Globulin 3.70 H Albumin/Globulin Ratio 1.02 Test 10/02/16 13:00 10/02/16 15:08 10/02/16 17:12 Bedside Glucose 142 141 133 Medications Current Medications Ondansetron HCl (Zofran Inj) 4 mg Q6H PRN IV NAUSEA AND/OR VOMITING; Start at 06:00 Acetaminophen (Tylenol Liquid) 650 mg Q6H PRN PO PAIN LEVEL 1-3 OR FEVER Last administered on 09/30/16 08:32; Admin Dose 650 MG; Start 09/28/16 at 06:00 Hydromorphone HCl (Dilaudid) 0.5 mg Q4H PRN IV PAIN LEVEL 7-10 Last administered on 09/30/16 23:48; Admin Dose 0.5 MG; Start 09/28/16 at 06:00 Heparin Sodium (Porcine) (Heparin (5000 Units/0.5 ml)) 5,000 unit Q12 SC Last administered on 10/02/16 09:10; Admin Dose 5,000 UNIT; Start 09/28/16 at 09:00 Miscellaneous Information 1 ea NOTE XX ; Start 09/28/16 at 06:30 Famotidine (Pepcid Iv) 20 mg DAILY IV Last administered on 10/02/16 09:07; Admin Dose 20 MG; Start 09/28/16 at 09:00 Dextrose (D50w Syringe) 25 ml Q15M PRN IV Till BS 80 mg/dL or above x2 Last administered on 10/01/16 16:03; Admin Dose 25 ML; Start 09/28/16 at 08:30 Dextrose 50 ml 50 ml Q15M PRN IV Till BS 80 mg/dL or above x2; Start 09/28/16 at 08:30 Propofol 100 ml @ 2.31 mls/hr Q12H IV Last administered on 09/30/16 13:17; Admin Dose 6.93 MLS/HR; Start 09/28/16 at 11:30 Midazolam HCl 50 ml @ 1 mls/hr TITRATE IV Last administered on 10/02/16 16:31 ; Admin Dose 5 MLS/HR; Start 09/28/16 at 11:30 Fentanyl (Sublimaze) 100 ml @ 2.5 mls/hr TITRATE IV Last administered on 21:25; Admin Dose 2.5 MLS/HR; Start 09/29/16 at 09:00 Diagnostic Test (Pha) (Accu-Chek) 1 ea Q2H XX Last administered on 10/02/16 17 :14; Admin Dose 1 EA; Start 09/30/16 at 09:00 Acetaminophen 650 mg 650 mg Q4H PRN NGT PAIN AND OR ELEVATED TEMP Last administered on 10/01/16 06:21; Admin Dose 650 MG; Start 09/30/16 at 08:30 Cefepime HCl 50 ml @ 100 mls/hr Q24H IVPB Last administered on 10/02/16 13:07 ; Admin Dose 100 MLS/HR; Start 09/30/16 at 13:00 Norepinephrine/ Dextrose (Levophed/D5W) 500 ml @ 1.87 mls/hr TITRATE IV ; Start 10/01/16 at 13:00 Prasugrel (Effient) 10 mg DAILY PO Last administered on 10/02/16 09:08; Admin Dose 10 MG; Start 10/02/16 at 09:00 Aspirin (Halfprin) 81 mg DAILY PO Last administered on 10/02/16 09:08; Admin Dose 81 MG; Start 10/02/16 at 09:00 Carvedilol (Coreg) 6.25 mg BID NGT Last administered on 10/02/16 09:07; Admin Dose 6.25 MG; Start 10/01/16 at 21:00 Miscellaneous Information (*Rx Drug Level Order Reminder*) 1 ONCE ONCE XX ; Start 10/03/16 at 05:00; Stop 10/03/16 at 05:01 Assessment/Plan Chief Complaint/Hosp Course Patient is know pt to me, he has CAD with s/p PCI of LAD CRUISE AGENT by me, PTCA and stenting of Right SFA as well as Left SFA, ESRD on HD, HTN, DM on insulin pump, who came in to ER with pulm edema and acute rest failure, intubated in ICU now. mild elevated trop and non ischemic EKG. Problems: Additional Assessment/Plan Pt is still intubated HR in 90s increase BB contineu pulm care HD Effient ASA will get Echo plan to extubate as per CYNDIE Larsen MD Oct 02, 2016 18:46
[2016-10-02] MEDS: INSULIN HUMAN REGULAR 100 UNIT in SOD CHLORIDE 0.9% 99 ML IV SCH (20:08)
[2016-10-03] VITALS (74 sets, daily range): BP systolic 77–145; BP diastolic 56–101; PULSE 78–92; RESP 0–21
[2016-10-03] MEDS: ACCU-CHEK XX SCH ×12 (01:24→23:19)
[2016-10-03 05:24] LABS: ADD SCAN DIFF NO
[2016-10-03 05:35] LABS: BASOPHIL # 0.1 10^3/ul (0.0-0.1); BASOPHILS % 0.8 % (0.0-2.0); EOSINOPHILS # 0.2 10^3/ul (0.0-0.5); EOSINOPHILS % 2.4 % (0.0-7.0); HEMATOCRIT 34.9 % (42.0-52.0); HEMOGLOBIN 11.1 g/dl (14.0-18.0); LYMPHOCYTES # 0.7 10^3/ul (0.8-2.9); LYMPHOCYTES % 9.9 % (15.0-51.0); MEAN CORPUSCULAR HEMOGLOBIN 29.5 pg (29.0-33.0); MEAN CORPUSCULAR HGB CONC 31.8 g/dl (32.0-37.0); MEAN CORPUSCULAR VOLUME 92.8 fl (82.0-101.0); MEAN PLATELET VOLUME 11.8 fl (7.4-10.4); MONOCYTE # 0.6 10^3/ul (0.3-0.9); MONOCYTES % 8.3 % (0.0-11.0); NEUTROPHIL # 5.8 10^3/ul (1.6-7.5); NEUTROPHILS % 78.2 % (39.0-77.0); PLATELET COUNT 154 10^3/UL (140-415); RED BLOOD COUNT 3.76 10^6/ul (4.70-6.10); RED CELL DISTRIBUTION WIDTH 17.4 % (11.5-14.5); WHITE BLOOD COUNT 7.4 10^3/ul (4.8-10.8)
[2016-10-03 05:40] LABS: ALBUMIN 3.6 g/dl (3.3-4.9); POTASSIUM 4.2 mmol/L (3.5-5.1)
[2016-10-03 05:42] LABS: BILIRUBIN,INDIRECT 0.2 mg/dl (0-1.1); BILIRUBIN,TOTAL 0.2 mg/dl (0.2-1.3); CREATININE 9.18 mg/dl (0.61-1.24)
[2016-10-03 05:43] LABS: ALBUMIN/GLOBULIN RATIO 1.02; CALCIUM 7.3 mg/dl (8.4-10.2); TOTAL PROTEIN 7.1 g/dl (6.1-8.1)
--- NOTE | 2016-10-03 08:27 | CONS ---
Date/Time of Note Date/Time of Note DATE: 10/03/16 TIME: 08:24 Assessment/Plan Assessment/Plan Chief Complaint/Hosp Course 1. ESRD , he is on maintenance hemodialysis . He had hemodialysis yesterday and 3 liters were removed . I will order hemodialysis for tomorrow . 2. Type I DM 3. flash pulmonary edema 4. HTN 5. CAD 6. respiratory failure on vent 7. fever , blood cultures no growth thus far .. 8. ALOC , he is sedated on Vent . Problems: Consultation Date/Type/Reason Admit Date/Time Sep 28, 2016 at 05:39 Initial Consult Date 09/28/16 Type of Consultation: Cardiac and Vasc Int 24 HR Interval Summary Free Text/Dictation He is sedated in the ICU , intubated , on a ventilator . Subjective hx not possible: pt non-verbal Exam/Review of Systems Vital Signs Vitals Vital Signs Date Time Temp Pulse Resp B/P Pulse Ox O2 Delivery O2 Flow Rate FiO2 10/03/16 08:03 83 18 99 30 10/03/16 06:45 90/62 10/03/16 05:45 Mechanical Ventilator 10/03/16 05:00 99.2 Intake and Output 10/02/16 10/02/16 10/03/16 15:00 23:00 07:00 Intake Total 567.5 ml 16.5 ml 0 ml Output Total 3500 ml 0 ml 0 ml Balance -2932.5 ml 16.5 ml 0 ml Exam Constitutional: non-verbal Respiratory: clear to auscultation Cardiovascular: regular rate and rhythm Gastrointestinal: soft Musculoskeletal: nl extremities to inspection Results Result Diagram: 10/03/16 0430 10/03/16 0430 Results 24 hrs Laboratory Tests Test 10/02/16 09:14 10/02/16 10:15 10/02/16 11:11 10/02/16 13:00 Bedside Glucose 187 145 142 Sodium Level 142 Potassium Level 3.7 Chloride Level 99 Carbon Dioxide Level 25 Anion Gap 22 H Blood Urea Nitrogen 40 H Creatinine 5.93 H Glucose Level 172 Calcium Level 8.0 L Total Bilirubin 0.3 Direct Bilirubin 0.00 Indirect Bilirubin 0.3 Aspartate Amino Transf (AST/SGOT) 301 H Alanine Aminotransferase (ALT/SGPT) 392 H Alkaline Phosphatase 287 H Total Protein 7.5 Albumin 3.8 Globulin 3.70 H Albumin/Globulin Ratio 1.02 Test 10/02/16 15:08 10/02/16 17:12 10/02/16 19:03 10/02/16 21:00 Bedside Glucose 141 133 142 174 Test 10/02/16 23:17 10/03/16 01:23 10/03/16 03:08 10/03/16 04:30 Bedside Glucose 164 182 144 White Blood Count 7.4 # Red Blood Count 3.76 L Hemoglobin 11.1 L Hematocrit 34.9 L Mean Corpuscular Volume 92.8 Mean Corpuscular Hemoglobin 29.5 Mean Corpuscular Hemoglobin Concent 31.8 L Red Cell Distribution Width 17.4 H Platelet Count 154 # Mean Platelet Volume 11.8 H Neutrophils % 78.2 H Lymphocytes % 9.9 L Monocytes % 8.3 Eosinophils % 2.4 Basophils % 0.8 Nucleated Red Blood Cells % 0.0 Neutrophils # 5.8 Lymphocytes # 0.7 L Monocytes # 0.6 Eosinophils # 0.2 Basophils # 0.1 Nucleated Red Blood Cells # 0.0 Sodium Level 142 Potassium Level 4.2 Chloride Level 99 Carbon Dioxide Level 23 Anion Gap 24 H Blood Urea Nitrogen 60 H Creatinine 9.18 #H Glucose Level 141 Calcium Level 7.3 L Total Bilirubin 0.2 Direct Bilirubin 0.00 Indirect Bilirubin 0.2 Aspartate Amino Transf (AST/SGOT) 695 #H Alanine Aminotransferase (ALT/SGPT) 646 H Alkaline Phosphatase 275 H Total Protein 7.1 Albumin 3.6 Globulin 3.50 H Albumin/Globulin Ratio 1.02 Random Vancomycin Level 16.4 Test 10/03/16 05:09 10/03/16 06:49 Bedside Glucose 113 179 Medications Medications Current Medications Ondansetron HCl (Zofran Inj) 4 mg Q6H PRN IV NAUSEA AND/OR VOMITING; Start at 06:00 Acetaminophen (Tylenol Liquid) 650 mg Q6H PRN PO PAIN LEVEL 1-3 OR FEVER Last administered on 09/30/16 08:32; Admin Dose 650 MG; Start 09/28/16 at 06:00 Hydromorphone HCl (Dilaudid) 0.5 mg Q4H PRN IV PAIN LEVEL 7-10 Last administered on 09/30/16 23:48; Admin Dose 0.5 MG; Start 09/28/16 at 06:00 Heparin Sodium (Porcine) (Heparin (5000 Units/0.5 ml)) 5,000 unit Q12 SC Last administered on 10/02/16 21:02; Admin Dose 5,000 UNIT; Start 09/28/16 at 09:00 Miscellaneous Information 1 ea NOTE XX ; Start 09/28/16 at 06:30 Famotidine (Pepcid Iv) 20 mg DAILY IV Last administered on 10/02/16 09:07; Admin Dose 20 MG; Start 09/28/16 at 09:00 Dextrose (D50w Syringe) 25 ml Q15M PRN IV Till BS 80 mg/dL or above x2 Last administered on 10/01/16 16:03; Admin Dose 25 ML; Start 09/28/16 at 08:30 Dextrose 50 ml 50 ml Q15M PRN IV Till BS 80 mg/dL or above x2; Start 09/28/16 at 08:30 Propofol 100 ml @ 2.31 mls/hr Q12H IV Last administered on 09/30/16 13:17; Admin Dose 6.93 MLS/HR; Start 09/28/16 at 11:30 Midazolam HCl 50 ml @ 1 mls/hr TITRATE IV Last administered on 10/02/16 21:44 ; Admin Dose 5 MLS/HR; Start 09/28/16 at 11:30 Fentanyl (Sublimaze) 100 ml @ 2.5 mls/hr TITRATE IV Last administered on 21:25; Admin Dose 2.5 MLS/HR; Start 09/29/16 at 09:00 Diagnostic Test (Pha) (Accu-Chek) 1 ea Q2H XX Last administered on 10/03/16 06 :50; Admin Dose 1 EA; Start 09/30/16 at 09:00 Acetaminophen 650 mg 650 mg Q4H PRN NGT PAIN AND OR ELEVATED TEMP Last administered on 10/01/16 06:21; Admin Dose 650 MG; Start 09/30/16 at 08:30 Cefepime HCl 50 ml @ 100 mls/hr Q24H IVPB Last administered on 10/02/16 13:07 ; Admin Dose 100 MLS/HR; Start 09/30/16 at 13:00 Norepinephrine/ Dextrose (Levophed/D5W) 500 ml @ 1.87 mls/hr TITRATE IV ; Start 10/01/16 at 13:00 Prasugrel (Effient) 10 mg DAILY PO Last administered on 10/02/16 09:08; Admin Dose 10 MG; Start 10/02/16 at 09:00 Aspirin (Halfprin) 81 mg DAILY PO Last administered on 10/02/16 09:08; Admin Dose 81 MG; Start 10/02/16 at 09:00 Carvedilol (Coreg) 12.5 mg BID NGT Last administered on 10/02/16 20:59; Admin Dose 12.5 MG; Start 10/02/16 at 21:00 DONY HOWARD MD Oct 03, 2016 08:27
[2016-10-03] MEDS: FAMOTIDINE 20 MG INJ IV SCH (09:12)
[2016-10-03] MEDS: ASPIRIN (EC) 81 MG TAB PO SCH (09:15)
[2016-10-03] MEDS: HEPARIN 5,000 UNIT/0.5 ML VIAL SC SCH ×2 (09:15→21:13)
[2016-10-03] MEDS: PRASUGREL HYDROCHLORIDE 10 MG TABLET PO SCH (09:15)
[2016-10-03] MEDS: MIDAZOLAM (DRIP) 50 mg/50 mL 50 ML IV SCH (09:16)
--- NOTE | 2016-10-03 10:44 | CONS ---
Date/Time of Note Date/Time of Note DATE: 10/03/16 TIME: 10:38 Consult Date/Type/Reason Admit Date/Time Sep 28, 2016 at 05:39 Initial Consult Date 09/28/16 Type of Consultation: pulmonary ICU Subjective Patient remains intubated sedated on mechanical ventilation appears comfortable at rest Currently no hemodynamic support Objective Vital Signs Date Time Temp Pulse Resp B/P Pulse Ox O2 Delivery O2 Flow Rate FiO2 10/03/16 08:03 83 18 99 30 10/03/16 06:45 90/62 10/03/16 05:45 Mechanical Ventilator 10/03/16 05:00 99.2 Intake and Output 10/02/16 10/02/16 10/03/16 15:00 23:00 07:00 Intake Total 567.5 ml 16.5 ml 0 ml Output Total 3500 ml 0 ml 0 ml Balance -2932.5 ml 16.5 ml 0 ml Exam PHYSICAL EXAMINATION GENERAL: Well-nourished well-developed gentleman intubated on mechanical ventilation VITAL SIGNS: see below. HEENT: Pupils equal, round, and reactive to light. CARDIAC: S1, S2, no added sounds or murmurs CHEST: Diminished air entry bilaterally. ABDOMEN: Mildly distended. Bowel sounds present no guarding or rebound EXTREMITIES: No cyanosis, clubbing edema +1 NEUROLOGIC: No focal deficits. Results/Medications Result Diagram: 10/03/16 0430 10/03/16 0430 Results 24 hrs Laboratory Tests Test 10/02/16 11:11 10/02/16 13:00 10/02/16 15:08 10/02/16 17:12 Bedside Glucose 145 142 141 133 Test 10/02/16 19:03 10/02/16 21:00 10/02/16 23:17 10/03/16 01:23 Bedside Glucose 142 174 164 182 Test 10/03/16 03:08 10/03/16 04:30 10/03/16 05:09 10/03/16 06:49 Bedside Glucose 144 113 179 White Blood Count 7.4 # Red Blood Count 3.76 L Hemoglobin 11.1 L Hematocrit 34.9 L Mean Corpuscular Volume 92.8 Mean Corpuscular Hemoglobin 29.5 Mean Corpuscular Hemoglobin Concent 31.8 L Red Cell Distribution Width 17.4 H Platelet Count 154 # Mean Platelet Volume 11.8 H Neutrophils % 78.2 H Lymphocytes % 9.9 L Monocytes % 8.3 Eosinophils % 2.4 Basophils % 0.8 Nucleated Red Blood Cells % 0.0 Neutrophils # 5.8 Lymphocytes # 0.7 L Monocytes # 0.6 Eosinophils # 0.2 Basophils # 0.1 Nucleated Red Blood Cells # 0.0 Sodium Level 142 Potassium Level 4.2 Chloride Level 99 Carbon Dioxide Level 23 Anion Gap 24 H Blood Urea Nitrogen 60 H Creatinine 9.18 #H Glucose Level 141 Calcium Level 7.3 L Total Bilirubin 0.2 Direct Bilirubin 0.00 Indirect Bilirubin 0.2 Aspartate Amino Transf (AST/SGOT) 695 #H Alanine Aminotransferase (ALT/SGPT) 646 H Alkaline Phosphatase 275 H Total Protein 7.1 Albumin 3.6 Globulin 3.50 H Albumin/Globulin Ratio 1.02 Random Vancomycin Level 16.4 Test 10/03/16 09:18 Bedside Glucose 149 Medications Current Medications Ondansetron HCl (Zofran Inj) 4 mg Q6H PRN IV NAUSEA AND/OR VOMITING; Start at 06:00 Acetaminophen (Tylenol Liquid) 650 mg Q6H PRN PO PAIN LEVEL 1-3 OR FEVER Last administered on 09/30/16 08:32; Admin Dose 650 MG; Start 09/28/16 at 06:00 Hydromorphone HCl (Dilaudid) 0.5 mg Q4H PRN IV PAIN LEVEL 7-10 Last administered on 09/30/16 23:48; Admin Dose 0.5 MG; Start 09/28/16 at 06:00 Heparin Sodium (Porcine) (Heparin (5000 Units/0.5 ml)) 5,000 unit Q12 SC Last administered on 10/03/16 09:15; Admin Dose 5,000 UNIT; Start 09/28/16 at 09:00 Miscellaneous Information 1 ea NOTE XX ; Start 09/28/16 at 06:30 Famotidine (Pepcid Iv) 20 mg DAILY IV Last administered on 10/03/16 09:12; Admin Dose 20 MG; Start 09/28/16 at 09:00 Dextrose (D50w Syringe) 25 ml Q15M PRN IV Till BS 80 mg/dL or above x2 Last administered on 10/01/16 16:03; Admin Dose 25 ML; Start 09/28/16 at 08:30 Dextrose 50 ml 50 ml Q15M PRN IV Till BS 80 mg/dL or above x2; Start 09/28/16 at 08:30 Propofol 100 ml @ 2.31 mls/hr Q12H IV Last administered on 09/30/16 13:17; Admin Dose 6.93 MLS/HR; Start 09/28/16 at 11:30 Midazolam HCl 50 ml @ 1 mls/hr TITRATE IV Last administered on 10/03/16 09:16 ; Admin Dose 5 MLS/HR; Start 09/28/16 at 11:30 Fentanyl (Sublimaze) 100 ml @ 2.5 mls/hr TITRATE IV Last administered on 21:25; Admin Dose 2.5 MLS/HR; Start 09/29/16 at 09:00 Diagnostic Test (Pha) (Accu-Chek) 1 ea Q2H XX Last administered on 10/03/16 09 :15; Admin Dose 1 EA; Start 09/30/16 at 09:00 Acetaminophen 650 mg 650 mg Q4H PRN NGT PAIN AND OR ELEVATED TEMP Last administered on 10/01/16 06:21; Admin Dose 650 MG; Start 09/30/16 at 08:30 Cefepime HCl 50 ml @ 100 mls/hr Q24H IVPB Last administered on 10/02/16 13:07 ; Admin Dose 100 MLS/HR; Start 09/30/16 at 13:00 Norepinephrine/ Dextrose (Levophed/D5W) 500 ml @ 1.87 mls/hr TITRATE IV ; Start 10/01/16 at 13:00 Prasugrel (Effient) 10 mg DAILY PO Last administered on 10/03/16 09:15; Admin Dose 10 MG; Start 10/02/16 at 09:00 Aspirin (Halfprin) 81 mg DAILY PO Last administered on 10/03/16 09:15; Admin Dose 81 MG; Start 10/02/16 at 09:00 Carvedilol (Coreg) 12.5 mg BID NGT Last administered on 10/03/16 09:15; Admin Dose 12.5 MG; Start 10/02/16 at 21:00 Assessment/Plan Chief Complaint/Hosp Course Assessment 1. Hypoxemic respiratory failure with evidence of pulmonary edema 2. End-stage renal failure on hemodialysis 3. Hypokalemia 4. Diabetes mellitus with hypoglycemia on admission 5. History of coronary artery disease Plan 1. Hemodialysis with volume removal 2. CPAP weaning trial 3. Incentive spirometry postextubation 4. DVT GI prophylaxis 5. Speech therapy evaluation in a.m. 6. Correction of electrolyte abnormalities per nephrology Disposition Continue ICU care Problems: NANCY PHILLIPS MD, [facility] Oct 03, 2016 10:44
[2016-10-03] MEDS: PROPOFOL 100 ML IV SCH ×2 (11:06→23:30)
--- NOTE | 2016-10-03 13:05 | PN ---
Date/Time of Note Date/Time of Note DATE: 10/03/16 TIME: 13:03 Assessment/Plan VTE Prophylaxis VTE Prophylaxis Intervention: SCD's Lines/Catheters IV [facility]ter Type (from [facility] Central Line Central line still needed: Yes Urinary Cath still in place: No Assessment/Plan Chief Complaint/Hosp Course ASSESSMENT AND PLAN: 1. Acute respiratory failure, requiring oral intubation and ventilatory support secondary to pulmonary edema. Dr. Nunez is following in pulmonology consultation. Continue ventilator support. 2. End-stage renal disease, hemodialysis dependent. Dr. Hubbard is following the patient in nephrology consultation. Continue the hemodialysis per nephrology. 3. Diabetes mellitus type [address] Garay is following endocrinology consultation. Continue patient on insulin drip. The patient usually has an insulin pump, which is currently discontinued. 4. Peripheral arterial disease, status post vascular intervention. Continue Eliquis. 5. Anemia of chronic disease. Continue Epogen. 6. Coronary artery disease. Dr. Stephen is following in cardiology consultation. 7. Possible healthcare acquired pneumonia. Continue antibiotics per ID. Dr. Allison is following in ID consultation. 8. Possible sepsis secondary to pneumonia. Continue IV fluids and pressors for hemodynamic support, ICU care. 9. Transaminitis, Dr. Britt is asked to see patient in gastroenterology consultation Continue heparin for deep venous thrombosis prophylaxis and Pepcid for peptic ulcer disease prophylaxis. Further recommendations based on clinical course. Plan of care discussed with Dr. Rosales. Problems: Subjective 24 Hr Interval Summary Free Text/Dictation Patient is orally intubated on vent support, currently on fentanyl and Versed, pending weaning trial today. Patient is currently off pressors, continues to have low-grade fever. Exam/Review of Systems Vital Signs Vitals Vital Signs Date Time Temp Pulse Resp B/P Pulse Ox O2 Delivery O2 Flow Rate FiO2 10/03/16 11:59 80 18 100 30 10/03/16 10:30 131/78 Mechanical Ventilator 10/03/16 08:00 99.1 Intake and Output 10/02/16 10/02/16 10/03/16 15:00 23:00 07:00 Intake Total 567.5 ml 16.5 ml 0 ml Output Total 3500 ml 0 ml 0 ml Balance -2932.5 ml 16.5 ml 0 ml Exam GENERAL: Well-developed, well-nourished gentleman currently orally intubated on vent support, sedated. HEENT: Head is atraumatic, normocephalic. Patient has a right eye prosthesis. Left eye pupil is equal, round, reactive to light and accommodation. NECK: Supple, no cervical lymphadenopathy, no thyromegaly. CHEST: Lung sounds diminished at the bases. Scattered rhonchi bilaterally. Patient has a left chest Port-A-Cath. CARDIOVASCULAR: Normal S1, S2. No murmurs, gallops, clicks, rubs noted. ABDOMEN: Round, soft, nondistended, nontender. Bowel sounds present. EXTREMITIES: There is mild edema. There is no clubbing, cyanosis. Left upper extremity with AV graft. SKIN: No rash, petechiae noted. NEUROLOGIC: Patient is sedated. Results Result Diagram: 10/03/16 0430 10/03/16 0430 Results 24 hrs Laboratory Tests Test 10/02/16 15:08 10/02/16 17:12 10/02/16 19:03 10/02/16 21:00 Bedside Glucose 141 133 142 174 Test 10/02/16 23:17 10/03/16 01:23 10/03/16 03:08 10/03/16 04:30 Bedside Glucose 164 182 144 White Blood Count 7.4 # Red Blood Count 3.76 L Hemoglobin 11.1 L Hematocrit 34.9 L Mean Corpuscular Volume 92.8 Mean Corpuscular Hemoglobin 29.5 Mean Corpuscular Hemoglobin Concent 31.8 L Red Cell Distribution Width 17.4 H Platelet Count 154 # Mean Platelet Volume 11.8 H Neutrophils % 78.2 H Lymphocytes % 9.9 L Monocytes % 8.3 Eosinophils % 2.4 Basophils % 0.8 Nucleated Red Blood Cells % 0.0 Neutrophils # 5.8 Lymphocytes # 0.7 L Monocytes # 0.6 Eosinophils # 0.2 Basophils # 0.1 Nucleated Red Blood Cells # 0.0 Sodium Level 142 Potassium Level 4.2 Chloride Level 99 Carbon Dioxide Level 23 Anion Gap 24 H Blood Urea Nitrogen 60 H Creatinine 9.18 #H Glucose Level 141 Calcium Level 7.3 L Total Bilirubin 0.2 Direct Bilirubin 0.00 Indirect Bilirubin 0.2 Aspartate Amino Transf (AST/SGOT) 695 #H Alanine Aminotransferase (ALT/SGPT) 646 H Alkaline Phosphatase 275 H Total Protein 7.1 Albumin 3.6 Globulin 3.50 H Albumin/Globulin Ratio 1.02 Random Vancomycin Level 16.4 Test 10/03/16 05:09 10/03/16 06:49 10/03/16 09:18 10/03/16 11:04 Bedside Glucose 113 179 149 95 Test 10/03/16 11:05 Bedside Glucose 129 Medications Medications Current Medications Ondansetron HCl (Zofran Inj) 4 mg Q6H PRN IV NAUSEA AND/OR VOMITING; Start at 06:00 Acetaminophen (Tylenol Liquid) 650 mg Q6H PRN PO PAIN LEVEL 1-3 OR FEVER Last administered on 09/30/16 08:32; Admin Dose 650 MG; Start 09/28/16 at 06:00 Hydromorphone HCl (Dilaudid) 0.5 mg Q4H PRN IV PAIN LEVEL 7-10 Last administered on 09/30/16 23:48; Admin Dose 0.5 MG; Start 09/28/16 at 06:00 Heparin Sodium (Porcine) (Heparin (5000 Units/0.5 ml)) 5,000 unit Q12 SC Last administered on 10/03/16 09:15; Admin Dose 5,000 UNIT; Start 09/28/16 at 09:00 Miscellaneous Information 1 ea NOTE XX ; Start 09/28/16 at 06:30 Famotidine (Pepcid Iv) 20 mg DAILY IV Last administered on 10/03/16 09:12; Admin Dose 20 MG; Start 09/28/16 at 09:00 Dextrose (D50w Syringe) 25 ml Q15M PRN IV Till BS 80 mg/dL or above x2 Last administered on 10/01/16 16:03; Admin Dose 25 ML; Start 09/28/16 at 08:30 Dextrose 50 ml 50 ml Q15M PRN IV Till BS 80 mg/dL or above x2; Start 09/28/16 at 08:30 Propofol 100 ml @ 2.31 mls/hr Q12H IV Last administered on 09/30/16 13:17; Admin Dose 6.93 MLS/HR; Start 09/28/16 at 11:30 Midazolam HCl 50 ml @ 1 mls/hr TITRATE IV Last administered on 10/03/16 09:16 ; Admin Dose 5 MLS/HR; Start 09/28/16 at 11:30 Fentanyl (Sublimaze) 100 ml @ 2.5 mls/hr TITRATE IV Last administered on 21:25; Admin Dose 2.5 MLS/HR; Start 09/29/16 at 09:00 Diagnostic Test (Pha) (Accu-Chek) 1 ea Q2H XX Last administered on 10/03/16 11 :06; Admin Dose 1 EA; Start 09/30/16 at 09:00 Acetaminophen 650 mg 650 mg Q4H PRN NGT PAIN AND OR ELEVATED TEMP Last administered on 10/01/16 06:21; Admin Dose 650 MG; Start 09/30/16 at 08:30 Cefepime HCl 50 ml @ 100 mls/hr Q24H IVPB Last administered on 10/02/16 13:07 ; Admin Dose 100 MLS/HR; Start 09/30/16 at 13:00 Norepinephrine/ Dextrose (Levophed/D5W) 500 ml @ 1.87 mls/hr TITRATE IV ; Start 10/01/16 at 13:00 Prasugrel (Effient) 10 mg DAILY PO Last administered on 10/03/16 09:15; Admin Dose 10 MG; Start 10/02/16 at 09:00 Aspirin (Halfprin) 81 mg DAILY PO Last administered on 10/03/16 09:15; Admin Dose 81 MG; Start 10/02/16 at 09:00 Carvedilol (Coreg) 12.5 mg BID NGT Last administered on 10/03/16 09:15; Admin Dose 12.5 MG; Start 10/02/16 at 21:00 ANGELINA CASTREJON Oct 03, 2016 13:05
[2016-10-03] MEDS: CEFEPIME 1GM/50 ML (PMX) 50 ML IVPB SCH (13:25)
[2016-10-03] MEDS: FENTAnyl (DRIP) 1000 mcg/100mL 100 ML IV SCH (16:48)
[2016-10-03] MEDS ORDERED: VANCOMYCIN 1 GM in NS 250 ML IVPB SCH (17:00)
--- NOTE | 2016-10-03 17:43 | PN ---
DATE: SUBJECTIVE: No events overnight. No fevers. The patient is lying comfortably in bed, intubated, l ight on sedation. WBC 7.4, H and H 11.1 and 34.9, platelets 154, neutrophils 78.2. MICROBIOLOGY: Cultures have been negative. INDWELLINGS: Endotracheal tube, NG tube, right femoral triple lumen catheter, Foster, left chest Por t-A-Cath. ANTIMICROBIALS: The patient is on: 1. Vancomycin. 2. Cefepime. PHYSICAL EXAMINATION: GENERAL: This is a chronically ill-appearing, middle-aged white man, who is in no distress. HEENT: Head atraumatic, normocephalic. Sclerae anicteric. Buccal mucosa dry. NECK: Supple, trachea midline. CHEST: Rise symmetrical. Breath sounds diminished to bases. HEART: S1, S2. ABDOMEN: Soft. Bowel tones present. EXTREMITIES: Without cyanosis. Bilateral trace edema. ASSESSMENT: 1. Status post shock. 2. Respiratory failure, secondary to fluid overload, possibly aspiration event. 3. Diabetes. 4. End-stage renal disease, hemodialysis dependent. 5. History of coronary artery disease. PLAN: The patient remains hemodynamically stable. We will continue him on current antimicrobials f or now. Continue weaning trials as per pulmonary. Dictated By: BIJAN LONGO INDUSTRIAL MACHINE OPERATOR for [facility] Conf#: [id number] DID#: [id number]
--- NOTE | 2016-10-03 19:06 | CONS ---
DATE OF ADMISSION: 09/28/2016 DATE OF CONSULTATION: 10/03/2016 TYPE OF CONSULTATION: Gastroenterology. Dear Dr. Rosales: Thank you for asking me to see Mr. Lyons in GI consultation. HISTORY OF PRESENT ILLNESS: The patient, as you know, is a 51-year-old gentleman who was brought to the hospital because of pain in the knee joint several days ago on 09/28/2016 and apparently develo ped respiratory distress in the emergency room. He was intubated and is transferred to the intensiv e care unit. At this time, GI consultation is requested because of abnormal liver functions. REVIEW OF SYSTEMS: Positive for diabetes, renal failure, coronary artery disease. MEDICATIONS: Prior to the admission includes: 1. Benadryl. 2. Effient. 3. Atorvastatin. 4. Quinidine. 5. Lisinopril. 6. Toprol. 7. Aspirin. 8. Dilaudid. 9. Ativan. 10. Pramipexole. 11. Renagel. 12. Floranex which is Lactobacillus. 13. Humalog. 14. Vancomycin. PAST MEDICAL HISTORY: Please refer to the history and physical. PHYSICAL EXAMINATION: GENERAL: The patient is a 51-year-old gentleman who at this time is intubated and is unresponsive. VITAL SIGNS: Blood pressure is in the range of 100 to 110 systolic. CARDIOVASCULAR: Normal heart sounds with tachycardia around 110 per minute. RESPIRATORY: Lungs revealed bilateral rales. ABDOMEN: Shows soft abdomen with no palpable masses. No tenderness, no distention. LABORATORY WORKUP: On 10/03/2016 today, the AST is 695, ALT 646, alkaline phosphatase 275, potassiu m is 4.2, BUN 60, creatinine 9.18. Prothrombin time 14.3, INR of 1.1, hemoglobin 11.1, WBC 7400, pl atelets 154,000, hematocrit 34.9. CLINICAL IMPRESSION: The patient presenting with history of respiratory failure, congestive heart f ailure, currently intubated. He was hypotensive for some period of time. The liver functions are a bnormal. Most likely secondary to shock liver. I doubt if we are dealing with any evidence of viral hepatitis or biliary tract disease; however, I would recommend to obtain ultrasound of the upper abdomen, and I will be happy to follow this patien t along with you. Once again, doctor, thank you for this consultation. Dictated By: RENEA VILCHIS MD [place]/[facility] Conf#: [id number] DID#: [id number] CC: DUKE JULIO MD;*EndCC*
[2016-10-04] VITALS (80 sets, daily range): BP systolic 67–180; BP diastolic 44–110; PULSE 81–117; RESP 18–47
[2016-10-04] MEDS: ACCU-CHEK XX SCH ×12 (01:08→23:08)
[2016-10-04 05:24] LABS: ADD SCAN DIFF NO
[2016-10-04 05:36] LABS: BASOPHIL # 0.1 10^3/ul (0.0-0.1); BASOPHILS % 0.9 % (0.0-2.0); EOSINOPHILS # 0.2 10^3/ul (0.0-0.5); EOSINOPHILS % 2.3 % (0.0-7.0); HEMATOCRIT 36.3 % (42.0-52.0); HEMOGLOBIN 11.1 g/dl (14.0-18.0); LYMPHOCYTES # 0.7 10^3/ul (0.8-2.9); LYMPHOCYTES % 6.7 % (15.0-51.0); MEAN CORPUSCULAR HEMOGLOBIN 28.5 pg (29.0-33.0); MEAN CORPUSCULAR HGB CONC 30.6 g/dl (32.0-37.0); MEAN CORPUSCULAR VOLUME 93.3 fl (82.0-101.0); MEAN PLATELET VOLUME 11.7 fl (7.4-10.4); MONOCYTE # 0.8 10^3/ul (0.3-0.9); MONOCYTES % 7.5 % (0.0-11.0); NEUTROPHIL # 8.5 10^3/ul (1.6-7.5); NEUTROPHILS % 82.1 % (39.0-77.0); PLATELET COUNT 201 10^3/UL (140-415); RED BLOOD COUNT 3.89 10^6/ul (4.70-6.10); RED CELL DISTRIBUTION WIDTH 17.4 % (11.5-14.5); WHITE BLOOD COUNT 10.3 10^3/ul (4.8-10.8)
[2016-10-04 05:57] LABS: ALBUMIN 3.6 g/dl (3.3-4.9)
[2016-10-04 05:58] LABS: POTASSIUM 5.6 mmol/L (3.5-5.1)
[2016-10-04 06:00] LABS: TOTAL PROTEIN 7.2 g/dl (6.1-8.1)
[2016-10-04 06:01] LABS: CALCIUM 7.2 mg/dl (8.4-10.2); MAGNESIUM 2.3 mg/dl (1.7-2.5)
[2016-10-04 06:11] LABS: CREATININE 11.16 mg/dl (0.61-1.24)
[2016-10-04] MEDS: PRASUGREL HYDROCHLORIDE 10 MG TABLET PO SCH (08:25)
[2016-10-04] MEDS: ASPIRIN (EC) 81 MG TAB PO SCH (08:26)
[2016-10-04] MEDS: FAMOTIDINE 20 MG INJ IV SCH (08:26)
[2016-10-04] MEDS: HEPARIN 5,000 UNIT/0.5 ML VIAL SC SCH ×2 (08:26→21:10)
--- NOTE | 2016-10-04 08:42 | CONS ---
Date/Time of Note Date/Time of Note DATE: 10/04/16 TIME: 08:41 Assessment/Plan Assessment/Plan Chief Complaint/Hosp Course ID PROGRESS NOTE TOTAL ABX DAY # 7 => 1. Vancomycin. 2. Cefepime. 24H INTERVAL SUMMARY * No fevers, WBC downtrend, normalized * MICROBIOLOGY: Cultures have been negative. * CXR TODAY: IMPRESSION: * 1. Mild prominence of the interstitial markings, may reflect mild underlying interstitial edema or chronic lung changes. There is improved aeration of the left lung base when compared to the prior examination. 2. Aortic atherosclerosis. 3. Tubes and lines, as described above. PHYSICAL EXAMINATION: GENERAL: VSS, NAD, sedated on the Vent HEENT: ETT/NGT secure NECK: Supple, trach-> midline CHEST: Equal chest rise bilaterally, without dyspnea on observation HEART: Pulse RRR ABDOMEN: Soft, benign EXTREMITIES: Warm SKIN: Warm, dry (+)Multiple Tattoos ID ASSESSMENT: 51 yo M admitted with: 1. Status post shock=> RESOLVED * MICROBIOLOGY: Cultures have been negative. 2. Respiratory failure, secondary to fluid overload, possibly aspiration event. 3. COPD - tobacco user 4. End-stage renal disease, hemodialysis dependent. 5. History of coronary artery disease. 6. Diabetes. (-)MRSA Nares INVASIVES: * Endotracheal tube, NG tube, right femoral triple lumen catheter, Foster, left chest Port-A-Cath. ABX ALLERGIES: MACROLIDES, ERYTHROMYCIN CURRENT ABX: DAY #7 => 1. Vancomycin. 2. Cefepime. ID RECOMMENDATIONS: 1. DC ABX -- ALL CX (-) = no current sepsis == Monitor OFF ABX over the weekend 2. Repeat Blood, urine, sputum cx PRN Temp >101.5 vs alternative recurrent septic indicators D/W Dr. Guo . . . Problems: Consultation Date/Type/Reason Admit Date/Time Sep 28, 2016 at 05:39 Initial Consult Date 10/01/16 Type of Consultation: ID Exam/Review of Systems Vital Signs Vitals Vital Signs Date Time Temp Pulse Resp B/P Pulse Ox O2 Delivery O2 Flow Rate FiO2 10/04/16 08:00 115 10/04/16 08:00 20 10/04/16 06:00 180/94 100 Mechanical Ventilator 10/04/16 05:10 30 10/04/16 04:00 98.6 Intake and Output 10/03/16 10/03/16 10/04/16 15:00 23:00 07:00 Intake Total 94.0 ml 331.0 ml 22.0 ml Output Total 0 ml 0 ml 0 ml Balance 94.0 ml 331.0 ml 22.0 ml Results Result Diagram: 10/04/16 0430 10/04/16 0430 Results 24 hrs Laboratory Tests Test 10/03/16 09:18 10/03/16 11:04 10/03/16 11:05 10/03/16 13:16 Bedside Glucose 149 95 129 114 Test 10/03/16 15:07 10/03/16 17:10 10/03/16 19:05 10/03/16 21:10 Bedside Glucose 159 175 161 221 H Test 10/03/16 23:19 10/04/16 01:10 10/04/16 03:08 10/04/16 04:30 Bedside Glucose 158 146 172 White Blood Count 10.3 # Red Blood Count 3.89 L Hemoglobin 11.1 L Hematocrit 36.3 L Mean Corpuscular Volume 93.3 Mean Corpuscular Hemoglobin 28.5 L Mean Corpuscular Hemoglobin Concent 30.6 L Red Cell Distribution Width 17.4 H Platelet Count 201 # Mean Platelet Volume 11.7 H Neutrophils % 82.1 H Lymphocytes % 6.7 L Monocytes % 7.5 Eosinophils % 2.3 Basophils % 0.9 Nucleated Red Blood Cells % 0.0 Neutrophils # 8.5 H Lymphocytes # 0.7 L Monocytes # 0.8 Eosinophils # 0.2 Basophils # 0.1 Nucleated Red Blood Cells # 0.0 Sodium Level 142 Potassium Level 5.6 H Chloride Level 99 Carbon Dioxide Level 19 L Anion Gap 30 H Blood Urea Nitrogen 86 H Creatinine 11.16 H Glucose Level 194 Calcium Level 7.2 L Magnesium Level 2.3 Total Bilirubin 0.0 L Direct Bilirubin 0.00 Indirect Bilirubin 0.0 Aspartate Amino Transf (AST/SGOT) 421 H Alanine Aminotransferase (ALT/SGPT) 650 H Alkaline Phosphatase 291 H Total Protein 7.2 Albumin 3.6 Globulin 3.60 H Albumin/Globulin Ratio 1.00 Test 10/04/16 06:13 10/04/16 07:13 Bedside Glucose 192 186 Medications Medications Current Medications Ondansetron HCl (Zofran Inj) 4 mg Q6H PRN IV NAUSEA AND/OR VOMITING; Start at 06:00 Acetaminophen (Tylenol Liquid) 650 mg Q6H PRN PO PAIN LEVEL 1-3 OR FEVER Last administered on 09/30/16 08:32; Admin Dose 650 MG; Start 09/28/16 at 06:00 Hydromorphone HCl (Dilaudid) 0.5 mg Q4H PRN IV PAIN LEVEL 7-10 Last administered on 09/30/16 23:48; Admin Dose 0.5 MG; Start 09/28/16 at 06:00 Heparin Sodium (Porcine) (Heparin (5000 Units/0.5 ml)) 5,000 unit Q12 SC Last administered on 10/04/16 08:26; Admin Dose 5,000 UNIT; Start 09/28/16 at 09:00 Miscellaneous Information 1 ea NOTE XX ; Start 09/28/16 at 06:30 Famotidine (Pepcid Iv) 20 mg DAILY IV Last administered on 10/04/16 08:26; Admin Dose 20 MG; Start 09/28/16 at 09:00 Dextrose (D50w Syringe) 25 ml Q15M PRN IV Till BS 80 mg/dL or above x2 Last administered on 10/01/16 16:03; Admin Dose 25 ML; Start 09/28/16 at 08:30 Dextrose 50 ml 50 ml Q15M PRN IV Till BS 80 mg/dL or above x2; Start 09/28/16 at 08:30 Propofol 100 ml @ 2.31 mls/hr Q12H IV Last administered on 09/30/16 13:17; Admin Dose 6.93 MLS/HR; Start 09/28/16 at 11:30 Midazolam HCl 50 ml @ 1 mls/hr TITRATE IV Last administered on 10/03/16 09:16 ; Admin Dose 5 MLS/HR; Start 09/28/16 at 11:30 Fentanyl (Sublimaze) 100 ml @ 2.5 mls/hr TITRATE IV Last administered on 16:48; Admin Dose 2.5 MLS/HR; Start 09/29/16 at 09:00 Diagnostic Test (Pha) (Accu-Chek) 1 ea Q2H XX Last administered on 10/04/16 07 :20; Admin Dose 1 EA; Start 09/30/16 at 09:00 Acetaminophen 650 mg 650 mg Q4H PRN NGT PAIN AND OR ELEVATED TEMP Last administered on 10/01/16 06:21; Admin Dose 650 MG; Start 09/30/16 at 08:30 Cefepime HCl 50 ml @ 100 mls/hr Q24H IVPB Last administered on 10/03/16 13:25 ; Admin Dose 100 MLS/HR; Start 09/30/16 at 13:00 Norepinephrine/ Dextrose (Levophed/D5W) 500 ml @ 1.87 mls/hr TITRATE IV ; Start 10/01/16 at 13:00 Prasugrel (Effient) 10 mg DAILY PO Last administered on 10/04/16 08:25; Admin Dose 10 MG; Start 10/02/16 at 09:00 Aspirin (Halfprin) 81 mg DAILY PO Last administered on 10/04/16 08:26; Admin Dose 81 MG; Start 10/02/16 at 09:00 Carvedilol (Coreg) 12.5 mg BID NGT Last administered on 10/03/16 21:05; Admin Dose 12.5 MG; Start 10/02/16 at 21:00 MISA CROFT NP Oct 04, 2016 08:42
--- NOTE | 2016-10-04 09:32 | RADRPT ---
PROCEDURE: XR Chest. CLINICAL INDICATION: Pneumonia, CHF TECHNIQUE: An AP view of the chest was obtained. COMPARISON: Chest x-ray dated 10/02/2016 FINDINGS: The endotracheal tube tip is approximately 6.5 cm above the lay. The tip of the enteric tube ex tends below the left diaphragm. There is a left chest Port-A-Cath with tip near the cavoatrial junct ion. There is prominence of the interstitial markings. No pleural effusion or pneumothorax is seen. Th e cardiomediastinal silhouette is within normal limits for size. Calcifications are seen within the aortic arch. The osseous structures demonstrate senescent changes. IMPRESSION: 1. Mild prominence of the interstitial markings, may reflect mild underlying interstitial edema or chronic lung changes. There is improved aeration of the left lung base when compared to the prior ex amination. 2. Aortic atherosclerosis. 3. Tubes and lines, as described above. RPTAT: HH .Sarah Avelar MD, Date Time Electronically viewed and signed by .Sarah Avelar MD, on 10/04/2016 09:32 .G/
--- NOTE | 2016-10-04 10:18 | PN ---
Date/Time of Note Date/Time of Note DATE: 10/04/16 TIME: 10:07 Assessment/Plan VTE Prophylaxis VTE Prophylaxis Intervention: other Lines/Catheters [facility] (from [facility] Central Line Central line still needed: Yes Urinary Cath still in place: No Assessment/Plan Assessment/Plan 1. Acute respiratory failure, requiring oral intubation and ventilatory support secondary to pulmonary edema. sedation is off but patient is not responsive yet, plan for CPAP when more stable. - Dr. Nunez is following in pulmonology consultation. Continue ventilator support. 2. End-stage renal disease, hemodialysis dependent. Dr. Hubbard is following the patient in nephrology consultation. - Continue the hemodialysis per nephrology. - HD today- 4 L removed BP 98 /60. 3. Diabetes mellitus type [address] Garay is following endocrinology consultation. Continue patient on insulin drip. The patient usually has an insulin pump, which is currently discontinued. 4. Peripheral arterial disease, status post vascular intervention. Continue Eliquis. 5. Anemia of chronic disease. Continue Epogen. 6. Coronary artery disease. Dr. Stephen is following in cardiology consultation. 7. Possible healthcare acquired pneumonia. Continue antibiotics per ID. Dr. Allison is following in ID consultation. 8. Possible sepsis secondary to pneumonia. Continue IV fluids and pressors for hemodynamic support, ICU care. 9. Transaminitis, Dr. Britt is asked to see patient in gastroenterology consultation Continue heparin for deep venous thrombosis prophylaxis and Pepcid for peptic ulcer disease prophylaxis. Further recommendations based on clinical course. Total critical care spent is 30 mins- Plan of care discussed with Dr. Rosales/staff/labs/meds review. Subjective 24 Hr Interval Summary Free Text/Dictation NAD, sedation is off but patient is not responsive yet, plan for CPAP when more stable, afebrile. HD today- 4 L removed BP 98 /60. dw staff. Constitutional: requiring IVF, requiring O2 Exam/Review of Systems Vital Signs Vitals Vital Signs Date Time Temp Pulse Resp B/P Pulse Ox O2 Delivery O2 Flow Rate FiO2 10/04/16 09:30 102 27 77/61 Mechanical Ventilator 10/04/16 08:30 96 10/04/16 08:00 98.7 10/04/16 08:00 30 Intake and Output 10/03/16 10/03/16 10/04/16 15:00 23:00 07:00 Intake Total 94.0 ml 331.0 ml 22.0 ml Output Total 0 ml 0 ml 0 ml Balance 94.0 ml 331.0 ml 22.0 ml Exam Constitutional: frail Eyes: nl sclera ENMT: nl external ears & nose Neck: non-tender Respiratory: diminished breath sounds Cardiovascular: nl pulses, other (SOULEYMANE- HD access- good bruit/thrill) Gastrointestinal: non-tender, soft Musculoskeletal: nl extremities to inspection, other (tattoos note on x4 EXTREMITIES) Extremities: normal pulses 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: unresponsive Skin: nl turgor Lymph: nontender Results Result Diagram: 10/04/16 0430 10/04/16 0430 Results 24 hrs Laboratory Tests Test 10/03/16 11:04 10/03/16 11:05 10/03/16 13:16 10/03/16 15:07 Bedside Glucose 95 129 114 159 Test 10/03/16 17:10 10/03/16 19:05 10/03/16 21:10 10/03/16 23:19 Bedside Glucose 175 161 221 H 158 Test 10/04/16 01:10 10/04/16 03:08 10/04/16 04:30 10/04/16 06:13 Bedside Glucose 146 172 192 White Blood Count 10.3 # Red Blood Count 3.89 L Hemoglobin 11.1 L Hematocrit 36.3 L Mean Corpuscular Volume 93.3 Mean Corpuscular Hemoglobin 28.5 L Mean Corpuscular Hemoglobin Concent 30.6 L Red Cell Distribution Width 17.4 H Platelet Count 201 # Mean Platelet Volume 11.7 H Neutrophils % 82.1 H Lymphocytes % 6.7 L Monocytes % 7.5 Eosinophils % 2.3 Basophils % 0.9 Nucleated Red Blood Cells % 0.0 Neutrophils # 8.5 H Lymphocytes # 0.7 L Monocytes # 0.8 Eosinophils # 0.2 Basophils # 0.1 Nucleated Red Blood Cells # 0.0 Sodium Level 142 Potassium Level 5.6 H Chloride Level 99 Carbon Dioxide Level 19 L Anion Gap 30 H Blood Urea Nitrogen 86 H Creatinine 11.16 H Glucose Level 194 Calcium Level 7.2 L Magnesium Level 2.3 Total Bilirubin 0.0 L Direct Bilirubin 0.00 Indirect Bilirubin 0.0 Aspartate Amino Transf (AST/SGOT) 421 H Alanine Aminotransferase (ALT/SGPT) 650 H Alkaline Phosphatase 291 H Total Protein 7.2 Albumin 3.6 Globulin 3.60 H Albumin/Globulin Ratio 1.00 Test 10/04/16 07:13 10/04/16 09:13 Bedside Glucose 186 162 Medications Medications Current Medications Ondansetron HCl (Zofran Inj) 4 mg Q6H PRN IV NAUSEA AND/OR VOMITING; Start at 06:00 Acetaminophen (Tylenol Liquid) 650 mg Q6H PRN PO PAIN LEVEL 1-3 OR FEVER Last administered on 09/30/16 08:32; Admin Dose 650 MG; Start 09/28/16 at 06:00 Hydromorphone HCl (Dilaudid) 0.5 mg Q4H PRN IV PAIN LEVEL 7-10 Last administered on 09/30/16 23:48; Admin Dose 0.5 MG; Start 09/28/16 at 06:00 Heparin Sodium (Porcine) (Heparin (5000 Units/0.5 ml)) 5,000 unit Q12 SC Last administered on 10/04/16 08:26; Admin Dose 5,000 UNIT; Start 09/28/16 at 09:00 Miscellaneous Information 1 ea NOTE XX ; Start 09/28/16 at 06:30 Famotidine (Pepcid Iv) 20 mg DAILY IV Last administered on 10/04/16 08:26; Admin Dose 20 MG; Start 09/28/16 at 09:00 Dextrose (D50w Syringe) 25 ml Q15M PRN IV Till BS 80 mg/dL or above x2 Last administered on 10/01/16 16:03; Admin Dose 25 ML; Start 09/28/16 at 08:30 Dextrose 50 ml 50 ml Q15M PRN IV Till BS 80 mg/dL or above x2; Start 09/28/16 at 08:30 Propofol 100 ml @ 2.31 mls/hr Q12H IV Last administered on 09/30/16 13:17; Admin Dose 6.93 MLS/HR; Start 09/28/16 at 11:30 Midazolam HCl 50 ml @ 1 mls/hr TITRATE IV Last administered on 10/03/16 09:16 ; Admin Dose 5 MLS/HR; Start 09/28/16 at 11:30 Fentanyl (Sublimaze) 100 ml @ 2.5 mls/hr TITRATE IV Last administered on 16:48; Admin Dose 2.5 MLS/HR; Start 09/29/16 at 09:00 Diagnostic Test (Pha) (Accu-Chek) 1 ea Q2H XX Last administered on 10/04/16 09 :16; Admin Dose 1 EA; Start 09/30/16 at 09:00 Acetaminophen 650 mg 650 mg Q4H PRN NGT PAIN AND OR ELEVATED TEMP Last administered on 10/01/16 06:21; Admin Dose 650 MG; Start 09/30/16 at 08:30 Cefepime HCl 50 ml @ 100 mls/hr Q24H IVPB Last administered on 10/03/16 13:25 ; Admin Dose 100 MLS/HR; Start 09/30/16 at 13:00 Norepinephrine/ Dextrose (Levophed/D5W) 500 ml @ 1.87 mls/hr TITRATE IV ; Start 10/01/16 at 13:00 Prasugrel (Effient) 10 mg DAILY PO Last administered on 10/04/16 08:25; Admin Dose 10 MG; Start 10/02/16 at 09:00 Aspirin (Halfprin) 81 mg DAILY PO Last administered on 10/04/16 08:26; Admin Dose 81 MG; Start 10/02/16 at 09:00 Carvedilol (Coreg) 12.5 mg BID NGT Last administered on 10/03/16 21:05; Admin Dose 12.5 MG; Start 10/02/16 at 21:00 PEDRO BENSON Oct 04, 2016 10:17
[2016-10-04] MEDS: PROPOFOL 100 ML IV SCH ×2 (11:07→23:30)
--- NOTE | 2016-10-04 11:50 | RADRPT ---
PROCEDURE: US Abdomen. CLINICAL INDICATION: Abdominal pain, abnormal LFTs TECHNIQUE: Multiple real-time images were acquired of the patient's abdomen and retroperitoneum ut ilizing a high resolution transducer. COMPARISON: None FINDINGS: Visualized portions of the pancreatic head and proximal body are unremarkable. The liver is normal in size and contour without evidence of intrapelvic biliary dilatation. The liver is mildly enlarged measuring 18.7 cm in length. The gallbladder is normal without evidence of cholelithiasis, pericholecystic fluid or gallbladder w all thickening. The technologist reports a negative sonographic Lechuga's sign. The common bile du ct measures 4.4 mm in maximal dimension. No free fluid is identified. The kidneys are small and echogenic bilaterally suggesting chronic medical renal disease. The right kidney measures 7.3 cm in length and the left kidney measures 5.9 cm. There is a simple cyst in th e superior left kidney measuring 1 cm in diameter. There is no dilatation of the pelvicaliceal syst ems bilaterally. There are no perinephric fluid collections. There are no areas of increased echog enicity to suggest nephrolithiasis. The proximal aorta measures 1.9 cm in transverse dimension. The mid aorta measures 1.5 cm in transv erse dimension. The spleen is normal in size measuring 9.9 cm. IMPRESSION: 1. The liver is mildly enlarged measuring 18.7 cm in length. The liver is otherwise unremarkable. 2. Small echogenic kidneys bilaterally suggesting chronic medical renal disease. RPTAT:AAJJ Physician Yudelka Date Time Electronically viewed and signed by Physician Yudelka on 10/04/2016 11:50 CONRAD/
--- NOTE | 2016-10-04 12:19 | PN ---
DATE: 10/04/2016 SUBJECTIVE: The patient is still intubated and is unresponsive status post respiratory arrest, hist ory of respiratory failure, congestive heart failure. GI consultation is obtained to evaluate abno rmal liver functions. PHYSICAL EXAMINATION: GENERAL: The patient is a 51-year-old gentleman who at this time is unresponsive, is still intubate d. VITAL SIGNS: Blood pressure is around 90/50. He just got dialyzed, Four liters of fluid was taken out. Pulse is 110. CARDIOVASCULAR: Normal heart sounds. RESPIRATORY: Bilateral rales to a minimal degree. ABDOMEN: Soft. LABORATORY WORKUP: Potassium 5.6, BUN 86, creatinine 11.1, AST 421, ALT 650, alkaline phosphatase 2 91, bilirubin is 0.0. The ultrasound of the upper abdomen results are pending. CLINICAL IMPRESSION: Abnormal liver functions, likely secondary to shock liver. Doubt viral etiolo gy. Doubt biliary tract disease. PLAN: Wait for the ultrasound results and continue to monitor the patient. Dictated By: RENAE VILCHIS MD NC/NTS Conf#: [id number] DID#: [id number] CC: SHANTE SALDAÑA MD; RENAE VILCHIS MD;*EndCC*
--- NOTE | 2016-10-04 13:25 | CONS ---
Date/Time of Note Date/Time of Note DATE: 10/04/16 TIME: 13:21 Assessment/Plan Assessment/Plan Problems: (1) Diabetes mellitus type 1, controlled, with complications Status: Chronic Comment: Currently on insulin drip with Humulin U-100. Good glycemic control. Additional Assessment/Plan continue drip until extubated. at that time will change to either: basal prandial insulin regimen versus resume insulin pump. Consultation Date/Type/Reason Admit Date/Time Sep 28, 2016 at 05:39 Initial Consult Date 10/01/16 Type of Consultation: endocrine Reason for Consultation glycemic management 24 HR Interval Summary Free Text/Dictation remains intubated. off insulin pump. on insulin drip Exam/Review of Systems Vital Signs Vitals Vital Signs Date Time Temp Pulse Resp B/P Pulse Ox O2 Delivery O2 Flow Rate FiO2 10/04/16 09:30 102 27 77/61 Mechanical Ventilator 10/04/16 08:30 96 10/04/16 08:00 98.7 10/04/16 08:00 30 Intake and Output 10/03/16 10/03/16 10/04/16 15:00 23:00 07:00 Intake Total 94.0 ml 331.0 ml 25.0 ml Output Total 0 ml 0 ml 0 ml Balance 94.0 ml 331.0 ml 25.0 ml Exam intubated and non verbal Results POC glucose reviewed Result Diagram: 10/04/16 0430 10/04/16 0430 Results 24 hrs Laboratory Tests Test 10/03/16 15:07 10/03/16 17:10 10/03/16 19:05 10/03/16 21:10 Bedside Glucose 159 175 161 221 H Test 10/03/16 23:19 10/04/16 01:10 10/04/16 03:08 10/04/16 04:30 Bedside Glucose 158 146 172 White Blood Count 10.3 # Red Blood Count 3.89 L Hemoglobin 11.1 L Hematocrit 36.3 L Mean Corpuscular Volume 93.3 Mean Corpuscular Hemoglobin 28.5 L Mean Corpuscular Hemoglobin Concent 30.6 L Red Cell Distribution Width 17.4 H Platelet Count 201 # Mean Platelet Volume 11.7 H Neutrophils % 82.1 H Lymphocytes % 6.7 L Monocytes % 7.5 Eosinophils % 2.3 Basophils % 0.9 Nucleated Red Blood Cells % 0.0 Neutrophils # 8.5 H Lymphocytes # 0.7 L Monocytes # 0.8 Eosinophils # 0.2 Basophils # 0.1 Nucleated Red Blood Cells # 0.0 Sodium Level 142 Potassium Level 5.6 H Chloride Level 99 Carbon Dioxide Level 19 L Anion Gap 30 H Blood Urea Nitrogen 86 H Creatinine 11.16 H Glucose Level 194 Calcium Level 7.2 L Magnesium Level 2.3 Total Bilirubin 0.0 L Direct Bilirubin 0.00 Indirect Bilirubin 0.0 Aspartate Amino Transf (AST/SGOT) 421 H Alanine Aminotransferase (ALT/SGPT) 650 H Alkaline Phosphatase 291 H Total Protein 7.2 Albumin 3.6 Globulin 3.60 H Albumin/Globulin Ratio 1.00 Test 10/04/16 06:13 10/04/16 07:13 10/04/16 09:13 10/04/16 11:05 Bedside Glucose 192 186 162 158 Medications Medications Current Medications Ondansetron HCl (Zofran Inj) 4 mg Q6H PRN IV NAUSEA AND/OR VOMITING; Start at 06:00 Acetaminophen (Tylenol Liquid) 650 mg Q6H PRN PO PAIN LEVEL 1-3 OR FEVER Last administered on 09/30/16 08:32; Admin Dose 650 MG; Start 09/28/16 at 06:00 Hydromorphone HCl (Dilaudid) 0.5 mg Q4H PRN IV PAIN LEVEL 7-10 Last administered on 09/30/16 23:48; Admin Dose 0.5 MG; Start 09/28/16 at 06:00 Heparin Sodium (Porcine) (Heparin (5000 Units/0.5 ml)) 5,000 unit Q12 SC Last administered on 10/04/16 08:26; Admin Dose 5,000 UNIT; Start 09/28/16 at 09:00 Miscellaneous Information 1 ea NOTE XX ; Start 09/28/16 at 06:30 Famotidine (Pepcid Iv) 20 mg DAILY IV Last administered on 10/04/16 08:26; Admin Dose 20 MG; Start 09/28/16 at 09:00 Dextrose (D50w Syringe) 25 ml Q15M PRN IV Till BS 80 mg/dL or above x2 Last administered on 10/01/16 16:03; Admin Dose 25 ML; Start 09/28/16 at 08:30 Dextrose 50 ml 50 ml Q15M PRN IV Till BS 80 mg/dL or above x2; Start 09/28/16 at 08:30 Propofol 100 ml @ 2.31 mls/hr Q12H IV Last administered on 09/30/16 13:17; Admin Dose 6.93 MLS/HR; Start 09/28/16 at 11:30 Midazolam HCl 50 ml @ 1 mls/hr TITRATE IV Last administered on 10/03/16 09:16 ; Admin Dose 5 MLS/HR; Start 09/28/16 at 11:30 Fentanyl (Sublimaze) 100 ml @ 2.5 mls/hr TITRATE IV Last administered on 16:48; Admin Dose 2.5 MLS/HR; Start 09/29/16 at 09:00 Diagnostic Test (Pha) (Accu-Chek) 1 ea Q2H XX Last administered on 10/04/16 13 :20; Admin Dose 1 EA; Start 09/30/16 at 09:00 Acetaminophen 650 mg 650 mg Q4H PRN NGT PAIN AND OR ELEVATED TEMP Last administered on 10/01/16 06:21; Admin Dose 650 MG; Start 09/30/16 at 08:30 Norepinephrine/ Dextrose (Levophed/D5W) 500 ml @ 1.87 mls/hr TITRATE IV ; Start 10/01/16 at 13:00 Prasugrel (Effient) 10 mg DAILY PO Last administered on 10/04/16 08:25; Admin Dose 10 MG; Start 10/02/16 at 09:00 Aspirin (Halfprin) 81 mg DAILY PO Last administered on 10/04/16 08:26; Admin Dose 81 MG; Start 10/02/16 at 09:00 Carvedilol (Coreg) 12.5 mg BID NGT Last administered on 10/03/16 21:05; Admin Dose 12.5 MG; Start 10/02/16 at 21:00 KALPANA MARTINEZ MD Oct 04, 2016 13:25
--- NOTE | 2016-10-04 14:00 | CONS ---
Date/Time of Note Date/Time of Note DATE: 10/04/16 TIME: 13:57 Assessment/Plan Assessment/Plan Chief Complaint/Hosp Course 1. ESRD , he is on maintenance hemodialysis which was done today with UF of 4 liter 2. Type I DM 3. flash pulmonary edema 4. HTN 5. CAD 6. respiratory failure on vent 7. fever , blood cultures no growth thus far .. 8. ALOC , he is sedated on Vent . Problems: Consultation Date/Type/Reason Admit Date/Time Sep 28, 2016 at 05:39 Initial Consult Date 10/01/16 Type of Consultation: Nephrology 24 HR Interval Summary Free Text/Dictation The patient remains intubated on mechanical ventilation, he is poorly responsive. Exam/Review of Systems Vital Signs Vitals Vital Signs Date Time Temp Pulse Resp B/P Pulse Ox O2 Delivery O2 Flow Rate FiO2 10/04/16 13:30 117 23 108/79 91 Mechanical Ventilator 10/04/16 12:00 98.4 10/04/16 08:00 30 Intake and Output 10/03/16 10/03/16 10/04/16 15:00 23:00 07:00 Intake Total 94.0 ml 331.0 ml 25.0 ml Output Total 0 ml 0 ml 0 ml Balance 94.0 ml 331.0 ml 25.0 ml Exam ENMT: intubated Neck: No jvd Respiratory: clear to auscultation Cardiovascular: regular rate and rhythm Gastrointestinal: non-tender, soft Extremities: No clubbing, No cyanosis, No edema Results Result Diagram: 10/04/16 0430 10/04/16 0430 Results 24 hrs Laboratory Tests Test 10/03/16 15:07 10/03/16 17:10 10/03/16 19:05 10/03/16 21:10 Bedside Glucose 159 175 161 221 H Test 10/03/16 23:19 10/04/16 01:10 10/04/16 03:08 10/04/16 04:30 Bedside Glucose 158 146 172 White Blood Count 10.3 # Red Blood Count 3.89 L Hemoglobin 11.1 L Hematocrit 36.3 L Mean Corpuscular Volume 93.3 Mean Corpuscular Hemoglobin 28.5 L Mean Corpuscular Hemoglobin Concent 30.6 L Red Cell Distribution Width 17.4 H Platelet Count 201 # Mean Platelet Volume 11.7 H Neutrophils % 82.1 H Lymphocytes % 6.7 L Monocytes % 7.5 Eosinophils % 2.3 Basophils % 0.9 Nucleated Red Blood Cells % 0.0 Neutrophils # 8.5 H Lymphocytes # 0.7 L Monocytes # 0.8 Eosinophils # 0.2 Basophils # 0.1 Nucleated Red Blood Cells # 0.0 Sodium Level 142 Potassium Level 5.6 H Chloride Level 99 Carbon Dioxide Level 19 L Anion Gap 30 H Blood Urea Nitrogen 86 H Creatinine 11.16 H Glucose Level 194 Calcium Level 7.2 L Magnesium Level 2.3 Total Bilirubin 0.0 L Direct Bilirubin 0.00 Indirect Bilirubin 0.0 Aspartate Amino Transf (AST/SGOT) 421 H Alanine Aminotransferase (ALT/SGPT) 650 H Alkaline Phosphatase 291 H Total Protein 7.2 Albumin 3.6 Globulin 3.60 H Albumin/Globulin Ratio 1.00 Test 10/04/16 06:13 10/04/16 07:13 10/04/16 09:13 10/04/16 11:05 Bedside Glucose 192 186 162 158 Test 10/04/16 13:13 Bedside Glucose 168 Medications Medications Current Medications Ondansetron HCl (Zofran Inj) 4 mg Q6H PRN IV NAUSEA AND/OR VOMITING; Start at 06:00 Acetaminophen (Tylenol Liquid) 650 mg Q6H PRN PO PAIN LEVEL 1-3 OR FEVER Last administered on 09/30/16 08:32; Admin Dose 650 MG; Start 09/28/16 at 06:00 Hydromorphone HCl (Dilaudid) 0.5 mg Q4H PRN IV PAIN LEVEL 7-10 Last administered on 09/30/16 23:48; Admin Dose 0.5 MG; Start 09/28/16 at 06:00 Heparin Sodium (Porcine) (Heparin (5000 Units/0.5 ml)) 5,000 unit Q12 SC Last administered on 10/04/16 08:26; Admin Dose 5,000 UNIT; Start 09/28/16 at 09:00 Miscellaneous Information 1 ea NOTE XX ; Start 09/28/16 at 06:30 Famotidine (Pepcid Iv) 20 mg DAILY IV Last administered on 10/04/16 08:26; Admin Dose 20 MG; Start 09/28/16 at 09:00 Dextrose (D50w Syringe) 25 ml Q15M PRN IV Till BS 80 mg/dL or above x2 Last administered on 10/01/16 16:03; Admin Dose 25 ML; Start 09/28/16 at 08:30 Dextrose 50 ml 50 ml Q15M PRN IV Till BS 80 mg/dL or above x2; Start 09/28/16 at 08:30 Propofol 100 ml @ 2.31 mls/hr Q12H IV Last administered on 09/30/16 13:17; Admin Dose 6.93 MLS/HR; Start 09/28/16 at 11:30 Midazolam HCl 50 ml @ 1 mls/hr TITRATE IV Last administered on 10/03/16 09:16 ; Admin Dose 5 MLS/HR; Start 09/28/16 at 11:30 Fentanyl (Sublimaze) 100 ml @ 2.5 mls/hr TITRATE IV Last administered on 16:48; Admin Dose 2.5 MLS/HR; Start 09/29/16 at 09:00 Diagnostic Test (Pha) (Accu-Chek) 1 ea Q2H XX Last administered on 10/04/16 13 :20; Admin Dose 1 EA; Start 09/30/16 at 09:00 Acetaminophen 650 mg 650 mg Q4H PRN NGT PAIN AND OR ELEVATED TEMP Last administered on 10/01/16 06:21; Admin Dose 650 MG; Start 09/30/16 at 08:30 Norepinephrine/ Dextrose (Levophed/D5W) 500 ml @ 1.87 mls/hr TITRATE IV ; Start 10/01/16 at 13:00 Prasugrel (Effient) 10 mg DAILY PO Last administered on 10/04/16 08:25; Admin Dose 10 MG; Start 10/02/16 at 09:00 Aspirin (Halfprin) 81 mg DAILY PO Last administered on 10/04/16 08:26; Admin Dose 81 MG; Start 10/02/16 at 09:00 Carvedilol (Coreg) 12.5 mg BID NGT Last administered on 10/03/16 21:05; Admin Dose 12.5 MG; Start 10/02/16 at 21:00 CARMINE MCINTOSH MD Oct 04, 2016 14:00
--- NOTE | 2016-10-04 14:20 | CONS ---
Date/Time of Note Date/Time of Note DATE: 10/04/16 TIME: 14:16 Consult Date/Type/Reason Admit Date/Time Sep 28, 2016 at 05:39 Initial Consult Date 10/01/16 Type of Consultation: Pulm/CCM Subjective s/p HD with 4 L UF; sudden increase in oxygen requirements now to 70% on MV. Objective Vital Signs Date Time Temp Pulse Resp B/P Pulse Ox O2 Delivery O2 Flow Rate FiO2 10/04/16 13:30 117 23 108/79 91 Mechanical Ventilator 10/04/16 12:00 98.4 10/04/16 08:00 30 Intake and Output 10/03/16 10/03/16 10/04/16 15:00 23:00 07:00 Intake Total 94.0 ml 331.0 ml 25.0 ml Output Total 0 ml 0 ml 0 ml Balance 94.0 ml 331.0 ml 25.0 ml Exam HEENT: Pupils equal, round, and reactive to light. CARDIAC: S1, S2, no added sounds or murmurs CHEST: Diminished air entry bilaterally. ABDOMEN: Mildly distended. Bowel sounds present no guarding or rebound EXTREMITIES: No cyanosis, clubbing edema +1 Results/Medications Result Diagram: 10/04/16 0430 10/04/16 0430 Results 24 hrs Laboratory Tests Test 10/03/16 15:07 10/03/16 17:10 10/03/16 19:05 10/03/16 21:10 Bedside Glucose 159 175 161 221 H Test 10/03/16 23:19 10/04/16 01:10 10/04/16 03:08 10/04/16 04:30 Bedside Glucose 158 146 172 White Blood Count 10.3 # Red Blood Count 3.89 L Hemoglobin 11.1 L Hematocrit 36.3 L Mean Corpuscular Volume 93.3 Mean Corpuscular Hemoglobin 28.5 L Mean Corpuscular Hemoglobin Concent 30.6 L Red Cell Distribution Width 17.4 H Platelet Count 201 # Mean Platelet Volume 11.7 H Neutrophils % 82.1 H Lymphocytes % 6.7 L Monocytes % 7.5 Eosinophils % 2.3 Basophils % 0.9 Nucleated Red Blood Cells % 0.0 Neutrophils # 8.5 H Lymphocytes # 0.7 L Monocytes # 0.8 Eosinophils # 0.2 Basophils # 0.1 Nucleated Red Blood Cells # 0.0 Sodium Level 142 Potassium Level 5.6 H Chloride Level 99 Carbon Dioxide Level 19 L Anion Gap 30 H Blood Urea Nitrogen 86 H Creatinine 11.16 H Glucose Level 194 Calcium Level 7.2 L Magnesium Level 2.3 Total Bilirubin 0.0 L Direct Bilirubin 0.00 Indirect Bilirubin 0.0 Aspartate Amino Transf (AST/SGOT) 421 H Alanine Aminotransferase (ALT/SGPT) 650 H Alkaline Phosphatase 291 H Total Protein 7.2 Albumin 3.6 Globulin 3.60 H Albumin/Globulin Ratio 1.00 Test 10/04/16 06:13 10/04/16 07:13 10/04/16 09:13 10/04/16 11:05 Bedside Glucose 192 186 162 158 Test 10/04/16 13:13 Bedside Glucose 168 Medications Current Medications Ondansetron HCl (Zofran Inj) 4 mg Q6H PRN IV NAUSEA AND/OR VOMITING; Start at 06:00 Acetaminophen (Tylenol Liquid) 650 mg Q6H PRN PO PAIN LEVEL 1-3 OR FEVER Last administered on 09/30/16 08:32; Admin Dose 650 MG; Start 09/28/16 at 06:00 Hydromorphone HCl (Dilaudid) 0.5 mg Q4H PRN IV PAIN LEVEL 7-10 Last administered on 09/30/16 23:48; Admin Dose 0.5 MG; Start 09/28/16 at 06:00 Heparin Sodium (Porcine) (Heparin (5000 Units/0.5 ml)) 5,000 unit Q12 SC Last administered on 10/04/16 08:26; Admin Dose 5,000 UNIT; Start 09/28/16 at 09:00 Miscellaneous Information 1 ea NOTE XX ; Start 09/28/16 at 06:30 Famotidine (Pepcid Iv) 20 mg DAILY IV Last administered on 10/04/16 08:26; Admin Dose 20 MG; Start 09/28/16 at 09:00 Dextrose (D50w Syringe) 25 ml Q15M PRN IV Till BS 80 mg/dL or above x2 Last administered on 10/01/16 16:03; Admin Dose 25 ML; Start 09/28/16 at 08:30 Dextrose 50 ml 50 ml Q15M PRN IV Till BS 80 mg/dL or above x2; Start 09/28/16 at 08:30 Propofol 100 ml @ 2.31 mls/hr Q12H IV Last administered on 09/30/16 13:17; Admin Dose 6.93 MLS/HR; Start 09/28/16 at 11:30 Midazolam HCl 50 ml @ 1 mls/hr TITRATE IV Last administered on 10/03/16 09:16 ; Admin Dose 5 MLS/HR; Start 09/28/16 at 11:30 Fentanyl (Sublimaze) 100 ml @ 2.5 mls/hr TITRATE IV Last administered on 16:48; Admin Dose 2.5 MLS/HR; Start 09/29/16 at 09:00 Diagnostic Test (Pha) (Accu-Chek) 1 ea Q2H XX Last administered on 10/04/16 13 :20; Admin Dose 1 EA; Start 09/30/16 at 09:00 Acetaminophen 650 mg 650 mg Q4H PRN NGT PAIN AND OR ELEVATED TEMP Last administered on 10/01/16 06:21; Admin Dose 650 MG; Start 09/30/16 at 08:30 Norepinephrine/ Dextrose (Levophed/D5W) 500 ml @ 1.87 mls/hr TITRATE IV ; Start 10/01/16 at 13:00 Prasugrel (Effient) 10 mg DAILY PO Last administered on 10/04/16 08:25; Admin Dose 10 MG; Start 10/02/16 at 09:00 Aspirin (Halfprin) 81 mg DAILY PO Last administered on 10/04/16 08:26; Admin Dose 81 MG; Start 10/02/16 at 09:00 Carvedilol (Coreg) 12.5 mg BID NGT Last administered on 10/03/16 21:05; Admin Dose 12.5 MG; Start 10/02/16 at 21:00 Assessment/Plan Additional Assessment/Plan IMP: 1. Hypoxemic respiratory failure initially due to pulm edema, however, current worsening unlikely to be due to that. ? PE 2. End-stage renal failure on hemodialysis 3. Pulm edema 4. Diabetes mellitus on insulin gtt 5. History of coronary artery disease Plan 1. Repeat ABG now 2. May increase PEEP 3. Obtain CXR, if negative and ABG does correlate with SpO2, then may need CTA 35 min cc time WENDY LEWIS MD Oct 04, 2016 14:20
[2016-10-04 15:57] LABS: AADO2 Arterial 390.8 mmHg (7.0-24.0); Arterial Base Excess -3.1 mmol/L (-3.0-3); Arterial COHb 0.5 % (0.0-3.0); Arterial Fraction of Oxyhgb 94.4 % (93.0-99.0); Arterial HCO3 19.8 mmol/L (22.0-26.0); Arterial MetHb 0.2 % (0.0-1.5); Arterial Total Hemglobin 13.8 g/dl (12.0-18.0); MODE VENT - AC
[2016-10-04 15:57] LABS: AADO2 Arterial 120.7 mmHg (7.0-24.0); Arterial COHb 0.7 % (0.0-3.0); Arterial Fraction of Oxyhgb 91.2 % (93.0-99.0); Arterial HCO3 19.7 mmol/L (22.0-26.0); Arterial MetHb 0.2 % (0.0-1.5); Arterial Total Hemglobin 14.7 g/dl (12.0-18.0); MODE VENT - AC
--- NOTE | 2016-10-04 18:15 | RADRPT ---
PROCEDURE: Portable chest x-ray. CLINICAL INDICATION: Intubation. TECHNIQUE: Portable AP view of the chest. COMPARISON: 08/21/2016. FINDINGS: An endotracheal tube terminates approximately 5.4 cm above the lay. A nasogastric tube tip in the stomach. The catheter tip of a left chest wall port lies in the SVC. Minimal patchy opacity at th e left lung base probably represents atelectasis. The cardiac silhouette is not enlarged. No pleur al effusion is seen. There is no pneumothorax. There are surgical clips in the left arm. IMPRESSION: 1. Endotracheal tube tip approximately 5.4 cm above the lay. 2. A nasogastric tube courses into the stomach, but its tip is not imaged. 3. Minimal patchy opacity at the left lung base, probably atelectasis. RPTAT: HTAR .Sebastian Perez MD, MD Date Time Electronically viewed and signed by .Sebastian Perez MD, MD on 10/04/2016 18:15 .R/
[2016-10-04] MEDS: INSULIN HUMAN REGULAR 100 UNIT in SOD CHLORIDE 0.9% 99 ML IV SCH (19:23)
[2016-10-04] MEDS ORDERED: ALTEPLASE (CATHFLO) 2 MG INJ CATHETER ONE (20:30)
[2016-10-04] MEDS ORDERED: ALTEPLASE (CATHFLO) 2 MG INJ CATHETER PRN (20:30)
[2016-10-04] MEDS ORDERED: VANCOMYCIN IV PER PHARMACY XX SCH (22:30)
[2016-10-04] MEDS ORDERED: PHENYLephrine 20MG IN 250 ML 250 ML ONE (22:52)
[2016-10-04] MEDS ORDERED: PHENYLephrine 20MG IN 250 ML 250 ML IV ONE (23:00)
[2016-10-04] MEDS ORDERED: PHENYLephrine 40 MG in DEXTROSE 5% 496 ML IV SCH (23:00)
[2016-10-04 23:03] LABS: ADD UMIC YES; URINE BILIRUBIN (Dip) 1+ (NEGATIVE); URINE BLOOD (Dip) 1+ (NEGATIVE); URINE COLOR YELLOW (YELLOW); URINE GLUCOSE (Dip) NEGATIVE (NEGATIVE); URINE KETONES (Dip) NEGATIVE (NEGATIVE); URINE LEUKOCYTE ESTERASE (Dip) NEGATIVE (NEGATIVE); URINE NITRITE (Dip) NEGATIVE (NEGATIVE); URINE TOTAL PROTEIN (Dip) 2+ (NEGATIVE); URINE UROBILINOGEN (Dip) 0.2 E.U./dL (0.1-1.0)
[2016-10-04 23:35] LABS: ICTOTEST NEGATIVE (NEGATIVE)
[2016-10-04 23:36] LABS: BACTERIA,URINE MODERATE; SQUAMOUS EPITHELIAL CELL,UR OCCASIONAL
[2016-10-05] VITALS (101 sets, daily range): BP systolic 71–142; BP diastolic 11–119; PULSE 75–119; RESP 17–45
[2016-10-05] MEDS ORDERED: IMIPENEM/CILASTATIN 1,000 MG in SOD CHLORIDE 0.9% 250 ML IVPB SCH ×4
[2016-10-05] MEDS: ACETAMINOPHEN 650MG/20.3ML CUP NGT PRN ×3 (00:37→14:02)
[2016-10-05] MEDS: ACCU-CHEK XX SCH ×12 (01:27→23:06)
[2016-10-05 05:09] LABS: Arterial Base Excess -4.9 mmol/L (-3.0-3); Arterial COHb 0.3 % (0.0-3.0); Arterial Fraction of Oxyhgb 98.3 % (93.0-99.0); Arterial HCO3 17.9 mmol/L (22.0-26.0); Arterial MetHb 0.2 % (0.0-1.5); Arterial Total Hemglobin 17.3 g/dl (12.0-18.0); MODE VENT - AC
[2016-10-05 05:54] LABS: ADD SCAN DIFF NO
[2016-10-05 07:11] LABS: ALBUMIN 4.3 g/dl (3.3-4.9)
[2016-10-05 07:12] LABS: POTASSIUM 4.8 mmol/L (3.5-5.1)
[2016-10-05 07:14] LABS: ALBUMIN/GLOBULIN RATIO 0.97; BILIRUBIN,INDIRECT 0.1 mg/dl (0-1.1); BILIRUBIN,TOTAL 0.1 mg/dl (0.2-1.3); TOTAL PROTEIN 8.7 g/dl (6.1-8.1)
[2016-10-05 07:15] LABS: CALCIUM 7.8 mg/dl (8.4-10.2)
[2016-10-05 07:40] LABS: CREATININE 9.61 mg/dl (0.61-1.24)
[2016-10-05] MEDS: FAMOTIDINE 20 MG INJ IV SCH (08:22)
[2016-10-05] MEDS: PRASUGREL HYDROCHLORIDE 10 MG TABLET PO SCH (08:22)
[2016-10-05] MEDS: ASPIRIN (EC) 81 MG TAB PO SCH (08:22)
[2016-10-05] MEDS: HEPARIN 5,000 UNIT/0.5 ML VIAL SC SCH ×2 (08:23→21:21)
[2016-10-05 09:45] LABS: BASOPHIL # 0.1 10^3/ul (0.0-0.1); BASOPHILS % 0.3 % (0.0-2.0); HEMATOCRIT 46.2 % (42.0-52.0); LYMPHOCYTES # 1.2 10^3/ul (0.8-2.9); LYMPHOCYTES % 6.7 % (15.0-51.0); MEAN CORPUSCULAR HEMOGLOBIN 28.6 pg (29.0-33.0); MEAN CORPUSCULAR HGB CONC 30.3 g/dl (32.0-37.0); MEAN CORPUSCULAR VOLUME 94.5 fl (82.0-101.0); MEAN PLATELET VOLUME 12.6 fl (7.4-10.4); MONOCYTES % 5.5 % (0.0-11.0); NEUTROPHILS % 86.5 % (39.0-77.0); NUCLEATED RED BLOOD CELLS% 0.2 /100WBC (0.0-0.0); PLATELET COUNT 309 10^3/UL (140-415); RED BLOOD COUNT 4.89 10^6/ul (4.70-6.10); RED CELL DISTRIBUTION WIDTH 18.1 % (11.5-14.5); WHITE BLOOD COUNT 18.5 10^3/ul (4.8-10.8)
[2016-10-05] MEDS: PROPOFOL 100 ML IV SCH ×2 (11:28→23:30)
--- NOTE | 2016-10-05 11:40 | PN ---
Date/Time of Note Date/Time of Note DATE: 10/05/16 TIME: 11:28 Assessment/Plan VTE Prophylaxis VTE Prophylaxis Intervention: other Lines/Catheters IV C[facility] Type [facility]from [facility] Central Line Central line still needed: Yes Urinary Cath still in place: Yes Reason Cath still needed: urinary retention Assessment/Plan Assessment/Plan - Hypernatremia-per nephrology, am labs. - Acute respiratory failure, requiring oral intubation and ventilatory support secondary to pulmonary edema. sedation is off but patient is not responsive yet , plan for CPAP when more stable. - Dr. Nunez is following in pulmonology consultation. Continue ventilator support. - End-stage renal disease, hemodialysis dependent. Dr. Hubbard is following the patient in nephrology consultation. - Continue the hemodialysis per nephrology. - HD today- 4 L removed BP 98 /60. - Diabetes mellitus type [address] Garay is following endocrinology consultation. Continue patient on insulin drip. The patient usually has an insulin pump, which is currently discontinued. - Peripheral arterial disease, status post vascular intervention. Continue Eliquis. - Anemia of chronic disease. Continue Epogen. - Coronary artery disease. Dr. Stephen is following in cardiology consultation. - Possible healthcare acquired pneumonia. Continue antibiotics per ID. Dr. Allison is following in ID consultation. - Possible sepsis secondary to pneumonia. Continue IV fluids and pressors for hemodynamic support, ICU care. - Transaminitis, Dr. Britt is asked to see patient in gastroenterology consultation Continue heparin for deep venous thrombosis prophylaxis and Pepcid for peptic ulcer disease prophylaxis. Further recommendations based on clinical course. Total critical care spent is 30 mins- Plan of care discussed with Dr. Rosales/staff/labs/meds review. Subjective 24 Hr Interval Summary Subjective hx not possible: pt non-verbal Constitutional: requiring IVF, requiring O2 Exam/Review of Systems Vital Signs Vitals Vital Signs Date Time Temp Pulse Resp B/P Pulse Ox O2 Delivery O2 Flow Rate FiO2 10/05/16 11:15 96 28 111/91 99 Mechanical Ventilator 10/05/16 11:00 99.9 10/05/16 09:26 50 Intake and Output 10/04/16 10/04/16 10/05/16 15:00 23:00 07:00 Intake Total 618 ml 421.62 ml 982.30 ml Output Total 4500 ml 75 ml 10 ml Balance -3882 ml 346.62 ml 972.30 ml Exam nad, still not waking up, temp 101 . cooling blanket on remains orally intubated. on levofed 16 mcg/hr.Insulindrip 5 units/hr- algorith - IV. Was dialyzed yesterday. dw staff Results Result Diagram: 10/05/16 0500 10/05/16 0500 Results 24 hrs Laboratory Tests Test 10/04/16 13:13 10/04/16 14:21 10/04/16 15:05 10/04/16 17:27 Bedside Glucose 168 187 180 Blood Gas Specimen Source Blood arterial Arterial Blood Date Drawn 10/04/2016 3:21:42 PM Arterial Blood pH (Temp corrected) 7.443 Arterial Blood pCO2 (Temp correct) 29.6 L Arterial Blood pO2 (Temp corrected) 76.5 L Arterial Blood HCO3 19.8 L Arterial Blood Base Excess -3.1 L Arterial Blood Oxygen Saturation 95.1 Dick Test N/A Arterial Blood Gas Puncture Site LB Arterial Blood Carboxyhemoglobin 0.5 Arterial Blood Methemoglobin 0.2 Blood Gas A-a O2 Differential 390.8 H Oxyhemoglobin Percent 94.4 Total Hemoglobin 13.8 Blood Gas Temperature 37.0 Blood Gas Respiration Rate 18.0 Blood Gas Actual Respiration Rate 22 Blood Gas Modality VENT - AC FiO2 70.0 Blood Gas Tidal Volume 600.0 Blood Gas Low PEEP Setting 5.0 Blood Gas Critical Value Read Back EVELINE AGUILERA Blood Gas Notified Whom BESSIE RT Blood Gas Notified Time 10/04/2016 3:36:06 PM Test 10/04/16 19:01 10/04/16 19:57 10/04/16 20:45 10/04/16 20:48 Bedside Glucose 195 163 150 Lactic Acid Level 5.1 *H Test 10/04/16 22:30 10/04/16 22:56 10/05/16 00:43 10/05/16 02:52 Urine Color YELLOW Urine Clarity SLIGHTLY CLOUDY Urine pH 5.5 Urine Specific [place] 1.020 Urine Ketones NEGATIVE Urine Nitrite NEGATIVE Urine Bilirubin 1+ H Urine Ictotest NEGATIVE Urine Urobilinogen 0.2 E.U./dL Urine Leukocyte Esterase NEGATIVE Urine Microscopic RBC 5-10 Urine Microscopic WBC 0-2 Urine Squamous Epithelial Cells OCCASIONAL Urine Amorphous Urates FEW Urine Bacteria MODERATE Urine Hemoglobin 1+ H Urine Glucose NEGATIVE Urine Total Protein 2+ H Bedside Glucose 104 132 185 Test 10/05/16 04:45 10/05/16 05:00 10/05/16 06:45 10/05/16 07:52 Bedside Glucose 169 135 132 White Blood Count 18.5 #H Red Blood Count 4.89 # Hemoglobin 14.0 # Hematocrit 46.2 # Mean Corpuscular Volume 94.5 Mean Corpuscular Hemoglobin 28.6 L Mean Corpuscular Hemoglobin Concent 30.3 L Red Cell Distribution Width 18.1 H Platelet Count 309 # Mean Platelet Volume 12.6 H Neutrophils % 86.5 H Lymphocytes % 6.7 L Monocytes % 5.5 Eosinophils % 0.0 Basophils % 0.3 Nucleated Red Blood Cells % 0.2 H Neutrophils # 16.0 H Lymphocytes # 1.2 Monocytes # 1.0 H Eosinophils # 0.0 Basophils # 0.1 Nucleated Red Blood Cells # 0.0 Blood Gas Specimen Source Blood arterial Arterial Blood Date Drawn 10/05/2016 4:55:59 AM Arterial Blood pH (Temp corrected) 7.412 Arterial Blood pCO2 (Temp correct) 28.8 L Arterial Blood pO2 (Temp corrected) 150.1 H Arterial Blood HCO3 17.9 L Arterial Blood Base Excess -4.9 L Arterial Blood Oxygen Saturation 98.8 H Dick Test N/A Arterial Blood Gas Puncture Site Right Brachial Arterial Blood Carboxyhemoglobin 0.3 Arterial Blood Methemoglobin 0.2 Blood Gas A-a O2 Differential 174.0 H Oxyhemoglobin Percent 98.3 Total Hemoglobin 17.3 Blood Gas Temperature 37.0 Blood Gas Respiration Rate 18.0 Blood Gas Actual Respiration Rate 21 Blood Gas Modality VENT - AC FiO2 50.0 Blood Gas Tidal Volume 600.0 Blood Gas Low PEEP Setting 5.0 Blood Gas Notified Whom UP Blood Gas Notified Time 10/05/2016 5:09:10 AM Sodium Level 148 H Potassium Level 4.8 Chloride Level 100 Carbon Dioxide Level 20 L Anion Gap 33 H Blood Urea Nitrogen 79 H Creatinine 9.61 H Glucose Level 187 Lactic Acid Level 2.5 H Calcium Level 7.8 L Total Bilirubin 0.1 L Direct Bilirubin 0.00 Indirect Bilirubin 0.1 Aspartate Amino Transf (AST/SGOT) 2945 H Alanine Aminotransferase (ALT/SGPT) 1966 H Alkaline Phosphatase 309 H Total Protein 8.7 H Albumin 4.3 Globulin 4.40 H Albumin/Globulin Ratio 0.97 Test 10/05/16 08:06 10/05/16 08:49 10/05/16 10:57 Bedside Glucose 124 121 93 Medications Medications Current Medications Ondansetron HCl (Zofran Inj) 4 mg Q6H PRN IV NAUSEA AND/OR VOMITING; Start at 06:00 Acetaminophen (Tylenol Liquid) 650 mg Q6H PRN PO PAIN LEVEL 1-3 OR FEVER Last administered on 09/30/16 08:32; Admin Dose 650 MG; Start 09/28/16 at 06:00 Hydromorphone HCl (Dilaudid) 0.5 mg Q4H PRN IV PAIN LEVEL 7-10 Last administered on 09/30/16 23:48; Admin Dose 0.5 MG; Start 09/28/16 at 06:00 Heparin Sodium (Porcine) (Heparin (5000 Units/0.5 ml)) 5,000 unit Q12 SC Last administered on 10/05/16 08:23; Admin Dose 5,000 UNIT; Start 09/28/16 at 09:00 Miscellaneous Information 1 ea NOTE XX ; Start 09/28/16 at 06:30 Famotidine (Pepcid Iv) 20 mg DAILY IV Last administered on 10/05/16 08:22; Admin Dose 20 MG; Start 09/28/16 at 09:00 Dextrose (D50w Syringe) 25 ml Q15M PRN IV Till BS 80 mg/dL or above x2 Last administered on 10/01/16 16:03; Admin Dose 25 ML; Start 09/28/16 at 08:30 Dextrose 50 ml 50 ml Q15M PRN IV Till BS 80 mg/dL or above x2; Start 09/28/16 at 08:30 Propofol 100 ml @ 2.31 mls/hr Q12H IV Last administered on 09/30/16 13:17; Admin Dose 6.93 MLS/HR; Start 09/28/16 at 11:30 Midazolam HCl 50 ml @ 1 mls/hr TITRATE IV Last administered on 10/03/16 09:16 ; Admin Dose 5 MLS/HR; Start 09/28/16 at 11:30 Fentanyl (Sublimaze) 100 ml @ 2.5 mls/hr TITRATE IV Last administered on 4/21/ 17at 16:48; Admin Dose 2.5 MLS/HR; Start 09/29/16 at 09:00 Diagnostic Test (Pha) (Accu-Chek) 1 ea Q2H XX Last administered on 10/05/16 10 :57; Admin Dose 1 EA; Start 09/30/16 at 09:00 Acetaminophen (Tylenol Liquid) 650 mg Q4H PRN NGT PAIN AND OR ELEVATED TEMP Last administered on 10/05/16 05:40; Admin Dose 650 MG; Start 09/30/16 at 08:30 Prasugrel (Effient) 10 mg DAILY PO Last administered on 10/05/16 08:22; Admin Dose 10 MG; Start 10/02/16 at 09:00 Aspirin (Halfprin) 81 mg DAILY PO Last administered on 10/05/16 08:22; Admin Dose 81 MG; Start 10/02/16 at 09:00 Carvedilol 12.5 mg 12.5 mg BID NGT Last administered on 10/03/16 21:05; Admin Dose 12.5 MG; Start 10/02/16 at 21:00 Norepinephrine 16 mg/Dextrose 500 ml @ 1.87 mls/hr TITRATE IV Last administered on 10/05/16 08:17; Admin Dose 26.25 MLS/HR; Start 10/04/16 at 22: 30 Phenylephrine HCl 40 mg/Dextrose 500 ml @ 75 mls/hr TITRATE IV ; Start at 23:00 Imipenem/ Cilastatin Sodium (Primaxin 250 Mg/ 100 ml (Pmx)) 100 ml @ 166.667 mls/hr Q12 IVPB ; Start 10/05/16 at 21:00 PEDRO BENSON Oct 05, 2016 11:39
[2016-10-05] MEDS: INSULIN HUMAN REGULAR 100 UNIT in SOD CHLORIDE 0.9% 99 ML IV SCH (13:55)
--- NOTE | 2016-10-05 14:18 | CONS ---
Date/Time of Note Date/Time of Note DATE: 10/05/16 TIME: 14:15 Consult Date/Type/Reason Admit Date/Time Sep 28, 2016 at 05:39 Initial Consult Date 10/01/16 Type of Consultation: Pulm/CCM Subjective On vent. Unresponsive despite being off sedatives Objective Vital Signs Date Time Temp Pulse Resp B/P Pulse Ox O2 Delivery O2 Flow Rate FiO2 10/05/16 13:48 98 25 100 50 10/05/16 13:45 122/77 Mechanical Ventilator 10/05/16 13:00 99.0 Intake and Output 10/04/16 10/04/16 10/05/16 15:00 23:00 07:00 Intake Total 618 ml 421.62 ml 982.30 ml Output Total 4500 ml 75 ml 10 ml Balance -3882 ml 346.62 ml 972.30 ml Exam HEENT: Pupils equal, round, and reactive to light. CARDIAC: S1, S2, no added sounds or murmurs CHEST: Clear ABDOMEN: Mildly distended. Bowel sounds present no guarding or rebound EXTREMITIES: No cyanosis, clubbing edema +1 Results/Medications Result Diagram: 10/05/16 0500 10/05/16 0500 Results 24 hrs Laboratory Tests Test 10/04/16 14:21 10/04/16 15:05 10/04/16 17:27 10/04/16 19:01 Blood Gas Specimen Source Blood arterial Arterial Blood Date Drawn 10/04/2016 3:21:42 PM Arterial Blood pH (Temp corrected) 7.443 Arterial Blood pCO2 (Temp correct) 29.6 L Arterial Blood pO2 (Temp corrected) 76.5 L Arterial Blood HCO3 19.8 L Arterial Blood Base Excess -3.1 L Arterial Blood Oxygen Saturation 95.1 Dick Test N/A Arterial Blood Gas Puncture Site LB Arterial Blood Carboxyhemoglobin 0.5 Arterial Blood Methemoglobin 0.2 Blood Gas A-a O2 Differential 390.8 H Oxyhemoglobin Percent 94.4 Total Hemoglobin 13.8 Blood Gas Temperature 37.0 Blood Gas Respiration Rate 18.0 Blood Gas Actual Respiration Rate 22 Blood Gas Modality VENT - AC FiO2 70.0 Blood Gas Tidal Volume 600.0 Blood Gas Low PEEP Setting 5.0 Blood Gas Critical Value Read Back EVELINE AGUILERA Blood Gas Notified Whom BESSIE SMITH Blood Gas Notified Time 10/04/2016 3:36:06 PM Bedside Glucose 187 180 195 Test 10/04/16 19:57 10/04/16 20:45 10/04/16 20:48 10/04/16 22:30 Bedside Glucose 163 150 Lactic Acid Level 5.1 *H Urine Color YELLOW Urine Clarity SLIGHTLY CLOUDY Urine pH 5.5 Urine Specific [place] 1.020 Urine Ketones NEGATIVE Urine Nitrite NEGATIVE Urine Bilirubin 1+ H Urine Ictotest NEGATIVE Urine Urobilinogen 0.2 E.U./dL Urine Leukocyte Esterase NEGATIVE Urine Microscopic RBC 5-10 Urine Microscopic WBC 0-2 Urine Squamous Epithelial Cells OCCASIONAL Urine Amorphous Urates FEW Urine Bacteria MODERATE Urine Hemoglobin 1+ H Urine Glucose NEGATIVE Urine Total Protein 2+ H Test 10/04/16 22:56 10/05/16 00:43 10/05/16 02:52 10/05/16 04:45 Bedside Glucose 104 132 185 169 Test 10/05/16 05:00 10/05/16 06:45 10/05/16 07:52 10/05/16 08:06 White Blood Count 18.5 #H Red Blood Count 4.89 # Hemoglobin 14.0 # Hematocrit 46.2 # Mean Corpuscular Volume 94.5 Mean Corpuscular Hemoglobin 28.6 L Mean Corpuscular Hemoglobin Concent 30.3 L Red Cell Distribution Width 18.1 H Platelet Count 309 # Mean Platelet Volume 12.6 H Neutrophils % 86.5 H Lymphocytes % 6.7 L Monocytes % 5.5 Eosinophils % 0.0 Basophils % 0.3 Nucleated Red Blood Cells % 0.2 H Neutrophils # 16.0 H Lymphocytes # 1.2 Monocytes # 1.0 H Eosinophils # 0.0 Basophils # 0.1 Nucleated Red Blood Cells # 0.0 Blood Gas Specimen Source Blood arterial Arterial Blood Date Drawn 10/05/2016 4:55:59 AM Arterial Blood pH (Temp corrected) 7.412 Arterial Blood pCO2 (Temp correct) 28.8 L Arterial Blood pO2 (Temp corrected) 150.1 H Arterial Blood HCO3 17.9 L Arterial Blood Base Excess -4.9 L Arterial Blood Oxygen Saturation 98.8 H Dick Test N/A Arterial Blood Gas Puncture Site Right Brachial Arterial Blood Carboxyhemoglobin 0.3 Arterial Blood Methemoglobin 0.2 Blood Gas A-a O2 Differential 174.0 H Oxyhemoglobin Percent 98.3 Total Hemoglobin 17.3 Blood Gas Temperature 37.0 Blood Gas Respiration Rate 18.0 Blood Gas Actual Respiration Rate 21 Blood Gas Modality VENT - AC FiO2 50.0 Blood Gas Tidal Volume 600.0 Blood Gas Low PEEP Setting 5.0 Blood Gas Notified Whom UP Blood Gas Notified Time 10/05/2016 5:09:10 AM Sodium Level 148 H Potassium Level 4.8 Chloride Level 100 Carbon Dioxide Level 20 L Anion Gap 33 H Blood Urea Nitrogen 79 H Creatinine 9.61 H Glucose Level 187 Lactic Acid Level 2.5 H Calcium Level 7.8 L Total Bilirubin 0.1 L Direct Bilirubin 0.00 Indirect Bilirubin 0.1 Aspartate Amino Transf (AST/SGOT) 2945 H Alanine Aminotransferase (ALT/SGPT) 1966 H Alkaline Phosphatase 309 H Total Protein 8.7 H Albumin 4.3 Globulin 4.40 H Albumin/Globulin Ratio 0.97 Bedside Glucose 135 132 124 Test 10/05/16 08:49 10/05/16 10:57 10/05/16 12:56 Bedside Glucose 121 93 140 Medications Current Medications Ondansetron HCl (Zofran Inj) 4 mg Q6H PRN IV NAUSEA AND/OR VOMITING; Start at 06:00 Acetaminophen (Tylenol Liquid) 650 mg Q6H PRN PO PAIN LEVEL 1-3 OR FEVER Last administered on 09/30/16 08:32; Admin Dose 650 MG; Start 09/28/16 at 06:00 Hydromorphone HCl (Dilaudid) 0.5 mg Q4H PRN IV PAIN LEVEL 7-10 Last administered on 09/30/16 23:48; Admin Dose 0.5 MG; Start 09/28/16 at 06:00 Heparin Sodium (Porcine) (Heparin (5000 Units/0.5 ml)) 5,000 unit Q12 SC Last administered on 10/05/16 08:23; Admin Dose 5,000 UNIT; Start 09/28/16 at 09:00 Miscellaneous Information 1 ea NOTE XX ; Start 09/28/16 at 06:30 Famotidine (Pepcid Iv) 20 mg DAILY IV Last administered on 10/05/16 08:22; Admin Dose 20 MG; Start 09/28/16 at 09:00 Dextrose (D50w Syringe) 25 ml Q15M PRN IV Till BS 80 mg/dL or above x2 Last administered on 10/01/16 16:03; Admin Dose 25 ML; Start 09/28/16 at 08:30 Dextrose 50 ml 50 ml Q15M PRN IV Till BS 80 mg/dL or above x2; Start 09/28/16 at 08:30 Propofol 100 ml @ 2.31 mls/hr Q12H IV Last administered on 09/30/16 13:17; Admin Dose 6.93 MLS/HR; Start 09/28/16 at 11:30 Midazolam HCl 50 ml @ 1 mls/hr TITRATE IV Last administered on 10/03/16 09:16 ; Admin Dose 5 MLS/HR; Start 09/28/16 at 11:30 Fentanyl (Sublimaze) 100 ml @ 2.5 mls/hr TITRATE IV Last administered on 16:48; Admin Dose 2.5 MLS/HR; Start 09/29/16 at 09:00 Diagnostic Test (Pha) (Accu-Chek) 1 ea Q2H XX Last administered on 10/05/16 12 :57; Admin Dose 1 EA; Start 09/30/16 at 09:00 Acetaminophen (Tylenol Liquid) 650 mg Q4H PRN NGT PAIN AND OR ELEVATED TEMP Last administered on 10/05/16 14:02; Admin Dose 650 MG; Start 09/30/16 at 08:30 Prasugrel (Effient) 10 mg DAILY PO Last administered on 10/05/16 08:22; Admin Dose 10 MG; Start 10/02/16 at 09:00 Aspirin (Halfprin) 81 mg DAILY PO Last administered on 10/05/16 08:22; Admin Dose 81 MG; Start 10/02/16 at 09:00 Carvedilol 12.5 mg 12.5 mg BID NGT Last administered on 10/03/16 21:05; Admin Dose 12.5 MG; Start 10/02/16 at 21:00 Norepinephrine 16 mg/Dextrose 500 ml @ 1.87 mls/hr TITRATE IV Last administered on 10/05/16 08:17; Admin Dose 26.25 MLS/HR; Start 10/04/16 at 22: 30 Phenylephrine HCl 40 mg/Dextrose 500 ml @ 75 mls/hr TITRATE IV ; Start at 23:00 Imipenem/ Cilastatin Sodium (Primaxin 250 Mg/ 100 ml (Pmx)) 100 ml @ 166.667 mls/hr Q12 IVPB ; Start 10/05/16 at 21:00 Assessment/Plan Additional Assessment/Plan IMP: 1. Hypoxemic respiratory failure initially due to pulm edema--> now improved 2. End-stage renal failure on hemodialysis 3. Pulm edema--improving 4. Diabetes mellitus on insulin gtt 5. AMS: may be effect of sedative still in system. Plan 1. Continue vent support; cannot wean until mental status improved. 2. Free H2O via NG 3. Hold all sedatives 4. Am labs; CXR; ABG 35 min cc time WENDY LEWIS MD Oct 05, 2016 14:18
--- NOTE | 2016-10-05 14:33 | CONS ---
Date/Time of Note Date/Time of Note DATE: 10/05/16 TIME: 14:20 Assessment/Plan Assessment/Plan Chief Complaint/Hosp Course 1. ESRD. s/p HD yesterday and planned for tomorrow. 2. Type I DM. Controlled blood sugars 3. Respiratory failure on vent, now on FIO2 70%. Does not appear to have signifcant CHF on CXR. ? ARDS 4. Fever and leukocytosis. Cultures negative, on broad spectrum antibiotics. 5. ALOC. Continues to be unresponsive. Consider neurology evaluation. 6. Abnormal LFTs. Ultrasound negative. Likely due to sepsis. Problems: Consultation Date/Type/Reason Admit Date/Time Sep 28, 2016 at 05:39 Initial Consult Date 10/01/16 Type of Consultation: Nephrology 24 HR Interval Summary Free Text/Dictation Remains on the ventilator. Unresponsive. Exam/Review of Systems Vital Signs Vitals Vital Signs Date Time Temp Pulse Resp B/P Pulse Ox O2 Delivery O2 Flow Rate FiO2 10/05/16 13:48 98 25 100 50 10/05/16 13:45 122/77 Mechanical Ventilator 10/05/16 13:00 99.0 Intake and Output 10/04/16 10/04/16 10/05/16 15:00 23:00 07:00 Intake Total 618 ml 421.62 ml 982.30 ml Output Total 4500 ml 75 ml 10 ml Balance -3882 ml 346.62 ml 972.30 ml Exam Head: atraumatic, normocephalic ENMT: intubated Neck: No jvd Respiratory: clear to auscultation Cardiovascular: regular rate and rhythm Gastrointestinal: soft Extremities: No edema Results Result Diagram: 10/05/16 0500 10/05/16 0500 Results 24 hrs Laboratory Tests Test 10/04/16 14:21 10/04/16 15:05 10/04/16 17:27 10/04/16 19:01 Blood Gas Specimen Source Blood arterial Arterial Blood Date Drawn 10/04/2016 3:21:42 PM Arterial Blood pH (Temp corrected) 7.443 Arterial Blood pCO2 (Temp correct) 29.6 L Arterial Blood pO2 (Temp corrected) 76.5 L Arterial Blood HCO3 19.8 L Arterial Blood Base Excess -3.1 L Arterial Blood Oxygen Saturation 95.1 Dick Test N/A Arterial Blood Gas Puncture Site LB Arterial Blood Carboxyhemoglobin 0.5 Arterial Blood Methemoglobin 0.2 Blood Gas A-a O2 Differential 390.8 H Oxyhemoglobin Percent 94.4 Total Hemoglobin 13.8 Blood Gas Temperature 37.0 Blood Gas Respiration Rate 18.0 Blood Gas Actual Respiration Rate 22 Blood Gas Modality VENT - AC FiO2 70.0 Blood Gas Tidal Volume 600.0 Blood Gas Low PEEP Setting 5.0 Blood Gas Critical Value Read Back EVELINE AGUILERA Blood Gas Notified Whom BESSIE RT Blood Gas Notified Time 10/04/2016 3:36:06 PM Bedside Glucose 187 180 195 Test 10/04/16 19:57 10/04/16 20:45 10/04/16 20:48 10/04/16 22:30 Bedside Glucose 163 150 Lactic Acid Level 5.1 *H Urine Color YELLOW Urine Clarity SLIGHTLY CLOUDY Urine pH 5.5 Urine Specific [place] 1.020 Urine Ketones NEGATIVE Urine Nitrite NEGATIVE Urine Bilirubin 1+ H Urine Ictotest NEGATIVE Urine Urobilinogen 0.2 E.U./dL Urine Leukocyte Esterase NEGATIVE Urine Microscopic RBC 5-10 Urine Microscopic WBC 0-2 Urine Squamous Epithelial Cells OCCASIONAL Urine Amorphous Urates FEW Urine Bacteria MODERATE Urine Hemoglobin 1+ H Urine Glucose NEGATIVE Urine Total Protein 2+ H Test 10/04/16 22:56 10/05/16 00:43 10/05/16 02:52 10/05/16 04:45 Bedside Glucose 104 132 185 169 Test 10/05/16 05:00 10/05/16 06:45 10/05/16 07:52 10/05/16 08:06 White Blood Count 18.5 #H Red Blood Count 4.89 # Hemoglobin 14.0 # Hematocrit 46.2 # Mean Corpuscular Volume 94.5 Mean Corpuscular Hemoglobin 28.6 L Mean Corpuscular Hemoglobin Concent 30.3 L Red Cell Distribution Width 18.1 H Platelet Count 309 # Mean Platelet Volume 12.6 H Neutrophils % 86.5 H Lymphocytes % 6.7 L Monocytes % 5.5 Eosinophils % 0.0 Basophils % 0.3 Nucleated Red Blood Cells % 0.2 H Neutrophils # 16.0 H Lymphocytes # 1.2 Monocytes # 1.0 H Eosinophils # 0.0 Basophils # 0.1 Nucleated Red Blood Cells # 0.0 Blood Gas Specimen Source Blood arterial Arterial Blood Date Drawn 10/05/2016 4:55:59 AM Arterial Blood pH (Temp corrected) 7.412 Arterial Blood pCO2 (Temp correct) 28.8 L Arterial Blood pO2 (Temp corrected) 150.1 H Arterial Blood HCO3 17.9 L Arterial Blood Base Excess -4.9 L Arterial Blood Oxygen Saturation 98.8 H Dick Test N/A Arterial Blood Gas Puncture Site Right Brachial Arterial Blood Carboxyhemoglobin 0.3 Arterial Blood Methemoglobin 0.2 Blood Gas A-a O2 Differential 174.0 H Oxyhemoglobin Percent 98.3 Total Hemoglobin 17.3 Blood Gas Temperature 37.0 Blood Gas Respiration Rate 18.0 Blood Gas Actual Respiration Rate 21 Blood Gas Modality VENT - AC FiO2 50.0 Blood Gas Tidal Volume 600.0 Blood Gas Low PEEP Setting 5.0 Blood Gas Notified Whom UP Blood Gas Notified Time 10/05/2016 5:09:10 AM Sodium Level 148 H Potassium Level 4.8 Chloride Level 100 Carbon Dioxide Level 20 L Anion Gap 33 H Blood Urea Nitrogen 79 H Creatinine 9.61 H Glucose Level 187 Lactic Acid Level 2.5 H Calcium Level 7.8 L Total Bilirubin 0.1 L Direct Bilirubin 0.00 Indirect Bilirubin 0.1 Aspartate Amino Transf (AST/SGOT) 2945 H Alanine Aminotransferase (ALT/SGPT) 1966 H Alkaline Phosphatase 309 H Total Protein 8.7 H Albumin 4.3 Globulin 4.40 H Albumin/Globulin Ratio 0.97 Bedside Glucose 135 132 124 Test 10/05/16 08:49 10/05/16 10:57 10/05/16 12:56 Bedside Glucose 121 93 140 Medications Medications Current Medications Ondansetron HCl (Zofran Inj) 4 mg Q6H PRN IV NAUSEA AND/OR VOMITING; Start at 06:00 Acetaminophen (Tylenol Liquid) 650 mg Q6H PRN PO PAIN LEVEL 1-3 OR FEVER Last administered on 09/30/16 08:32; Admin Dose 650 MG; Start 09/28/16 at 06:00 Hydromorphone HCl (Dilaudid) 0.5 mg Q4H PRN IV PAIN LEVEL 7-10 Last administered on 09/30/16 23:48; Admin Dose 0.5 MG; Start 09/28/16 at 06:00 Heparin Sodium (Porcine) (Heparin (5000 Units/0.5 ml)) 5,000 unit Q12 SC Last administered on 10/05/16 08:23; Admin Dose 5,000 UNIT; Start 09/28/16 at 09:00 Miscellaneous Information 1 ea NOTE XX ; Start 09/28/16 at 06:30 Famotidine (Pepcid Iv) 20 mg DAILY IV Last administered on 10/05/16 08:22; Admin Dose 20 MG; Start 09/28/16 at 09:00 Dextrose (D50w Syringe) 25 ml Q15M PRN IV Till BS 80 mg/dL or above x2 Last administered on 10/01/16 16:03; Admin Dose 25 ML; Start 09/28/16 at 08:30 Dextrose 50 ml 50 ml Q15M PRN IV Till BS 80 mg/dL or above x2; Start 09/28/16 at 08:30 Propofol 100 ml @ 2.31 mls/hr Q12H IV Last administered on 09/30/16 13:17; Admin Dose 6.93 MLS/HR; Start 09/28/16 at 11:30 Midazolam HCl 50 ml @ 1 mls/hr TITRATE IV Last administered on 10/03/16 09:16 ; Admin Dose 5 MLS/HR; Start 09/28/16 at 11:30 Fentanyl (Sublimaze) 100 ml @ 2.5 mls/hr TITRATE IV Last administered on 16:48; Admin Dose 2.5 MLS/HR; Start 09/29/16 at 09:00 Diagnostic Test (Pha) (Accu-Chek) 1 ea Q2H XX Last administered on 10/05/16 12 :57; Admin Dose 1 EA; Start 09/30/16 at 09:00 Acetaminophen (Tylenol Liquid) 650 mg Q4H PRN NGT PAIN AND OR ELEVATED TEMP Last administered on 10/05/16 14:02; Admin Dose 650 MG; Start 09/30/16 at 08:30 Prasugrel (Effient) 10 mg DAILY PO Last administered on 10/05/16 08:22; Admin Dose 10 MG; Start 10/02/16 at 09:00 Aspirin (Halfprin) 81 mg DAILY PO Last administered on 10/05/16 08:22; Admin Dose 81 MG; Start 10/02/16 at 09:00 Carvedilol 12.5 mg 12.5 mg BID NGT Last administered on 10/03/16 21:05; Admin Dose 12.5 MG; Start 10/02/16 at 21:00 Norepinephrine 16 mg/Dextrose 500 ml @ 1.87 mls/hr TITRATE IV Last administered on 10/05/16 08:17; Admin Dose 26.25 MLS/HR; Start 10/04/16 at 22: 30 Phenylephrine HCl 40 mg/Dextrose 500 ml @ 75 mls/hr TITRATE IV ; Start at 23:00 Imipenem/ Cilastatin Sodium (Primaxin 250 Mg/ 100 ml (Pmx)) 100 ml @ 166.667 mls/hr Q12 IVPB ; Start 10/05/16 at 21:00 CARMINE MCINTOSH MD Oct 05, 2016 14:30
--- NOTE | 2016-10-05 15:05 | CONS ---
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 ON INSULIN DRIP WITH TIGHT GLYCEMIC CONTROL. Consultation Date/Type/Reason Admit Date/Time Sep 28, 2016 at 05:39 Initial Consult Date 10/01/16 Type of Consultation: ENDOCRINE Reason for Consultation DIABETES MANAGEMENT 24 HR Interval Summary Free Text/Dictation UNRESPONSIVE Subjective hx not possible: pt non-verbal Exam/Review of Systems Vital Signs Vitals Vital Signs Date Time Temp Pulse Resp B/P Pulse Ox O2 Delivery O2 Flow Rate FiO2 10/05/16 14:30 87 25 142/98 94 Mechanical Ventilator 10/05/16 14:00 98.2 10/05/16 13:48 50 Intake and Output 10/04/16 10/04/16 10/05/16 14:59 22:59 06:59 Intake Total 598 ml 384.37 ml 984.65 ml Output Total 4500 ml 0 ml 85 ml Balance -3902 ml 384.37 ml 899.65 ml Exam INTUBATED UNRESPONSIVE Constitutional: non-verbal ENMT: intubated (ENDOTRACHEAL TUBE) Respiratory: clear to auscultation Cardiovascular: regular rate and rhythm Gastrointestinal: soft Musculoskeletal: nl extremities to inspection Results POC GLUCOSE REVIEWED Result Diagram: 10/05/16 0500 10/05/16 0500 Results 24 hrs Laboratory Tests Test 10/04/16 15:05 10/04/16 17:27 10/04/16 19:01 10/04/16 19:57 Bedside Glucose 187 180 195 163 Test 10/04/16 20:45 10/04/16 20:48 10/04/16 22:30 10/04/16 22:56 Lactic Acid Level 5.1 *H Bedside Glucose 150 104 Urine Color YELLOW Urine Clarity SLIGHTLY CLOUDY Urine pH 5.5 Urine Specific [place] 1.020 Urine Ketones NEGATIVE Urine Nitrite NEGATIVE Urine Bilirubin 1+ H Urine Ictotest NEGATIVE Urine Urobilinogen 0.2 E.U./dL Urine Leukocyte Esterase NEGATIVE Urine Microscopic RBC 5-10 Urine Microscopic WBC 0-2 Urine Squamous Epithelial Cells OCCASIONAL Urine Amorphous Urates FEW Urine Bacteria MODERATE Urine Hemoglobin 1+ H Urine Glucose NEGATIVE Urine Total Protein 2+ H Test 10/05/16 00:43 10/05/16 02:52 10/05/16 04:45 10/05/16 05:00 Bedside Glucose 132 185 169 White Blood Count 18.5 #H Red Blood Count 4.89 # Hemoglobin 14.0 # Hematocrit 46.2 # Mean Corpuscular Volume 94.5 Mean Corpuscular Hemoglobin 28.6 L Mean Corpuscular Hemoglobin Concent 30.3 L Red Cell Distribution Width 18.1 H Platelet Count 309 # Mean Platelet Volume 12.6 H Neutrophils % 86.5 H Lymphocytes % 6.7 L Monocytes % 5.5 Eosinophils % 0.0 Basophils % 0.3 Nucleated Red Blood Cells % 0.2 H Neutrophils # 16.0 H Lymphocytes # 1.2 Monocytes # 1.0 H Eosinophils # 0.0 Basophils # 0.1 Nucleated Red Blood Cells # 0.0 Blood Gas Specimen Source Blood arterial Arterial Blood Date Drawn 10/05/2016 4:55:59 AM Arterial Blood pH (Temp corrected) 7.412 Arterial Blood pCO2 (Temp correct) 28.8 L Arterial Blood pO2 (Temp corrected) 150.1 H Arterial Blood HCO3 17.9 L Arterial Blood Base Excess -4.9 L Arterial Blood Oxygen Saturation 98.8 H Dikc Test N/A Arterial Blood Gas Puncture Site Right Brachial Arterial Blood Carboxyhemoglobin 0.3 Arterial Blood Methemoglobin 0.2 Blood Gas A-a O2 Differential 174.0 H Oxyhemoglobin Percent 98.3 Total Hemoglobin 17.3 Blood Gas Temperature 37.0 Blood Gas Respiration Rate 18.0 Blood Gas Actual Respiration Rate 21 Blood Gas Modality VENT - AC FiO2 50.0 Blood Gas Tidal Volume 600.0 Blood Gas Low PEEP Setting 5.0 Blood Gas Notified Whom UP Blood Gas Notified Time 10/05/2016 5:09:10 AM Sodium Level 148 H Potassium Level 4.8 Chloride Level 100 Carbon Dioxide Level 20 L Anion Gap 33 H Blood Urea Nitrogen 79 H Creatinine 9.61 H Glucose Level 187 Lactic Acid Level 2.5 H Calcium Level 7.8 L Total Bilirubin 0.1 L Direct Bilirubin 0.00 Indirect Bilirubin 0.1 Aspartate Amino Transf (AST/SGOT) 2945 H Alanine Aminotransferase (ALT/SGPT) 1966 H Alkaline Phosphatase 309 H Total Protein 8.7 H Albumin 4.3 Globulin 4.40 H Albumin/Globulin Ratio 0.97 Test 10/05/16 06:45 10/05/16 07:52 10/05/16 08:06 10/05/16 08:49 Bedside Glucose 135 132 124 121 Test 10/05/16 10:57 10/05/16 12:56 10/05/16 14:53 Bedside Glucose 93 140 145 Medications Medications Current Medications Ondansetron HCl (Zofran Inj) 4 mg Q6H PRN IV NAUSEA AND/OR VOMITING; Start at 06:00 Acetaminophen (Tylenol Liquid) 650 mg Q6H PRN PO PAIN LEVEL 1-3 OR FEVER Last administered on 09/30/16 08:32; Admin Dose 650 MG; Start 09/28/16 at 06:00 Hydromorphone HCl (Dilaudid) 0.5 mg Q4H PRN IV PAIN LEVEL 7-10 Last administered on 09/30/16 23:48; Admin Dose 0.5 MG; Start 09/28/16 at 06:00 Heparin Sodium (Porcine) (Heparin (5000 Units/0.5 ml)) 5,000 unit Q12 SC Last administered on 10/05/16 08:23; Admin Dose 5,000 UNIT; Start 09/28/16 at 09:00 Miscellaneous Information 1 ea NOTE XX ; Start 09/28/16 at 06:30 Famotidine (Pepcid Iv) 20 mg DAILY IV Last administered on 10/05/16 08:22; Admin Dose 20 MG; Start 09/28/16 at 09:00 Dextrose (D50w Syringe) 25 ml Q15M PRN IV Till BS 80 mg/dL or above x2 Last administered on 10/01/16 16:03; Admin Dose 25 ML; Start 09/28/16 at 08:30 Dextrose 50 ml 50 ml Q15M PRN IV Till BS 80 mg/dL or above x2; Start 09/28/16 at 08:30 Propofol 100 ml @ 2.31 mls/hr Q12H IV Last administered on 09/30/16 13:17; Admin Dose 6.93 MLS/HR; Start 09/28/16 at 11:30 Midazolam HCl 50 ml @ 1 mls/hr TITRATE IV Last administered on 10/03/16 09:16 ; Admin Dose 5 MLS/HR; Start 09/28/16 at 11:30 Fentanyl (Sublimaze) 100 ml @ 2.5 mls/hr TITRATE IV Last administered on 16:48; Admin Dose 2.5 MLS/HR; Start 09/29/16 at 09:00 Diagnostic Test (Pha) (Accu-Chek) 1 ea Q2H XX Last administered on 10/05/16 14 :54; Admin Dose 1 EA; Start 09/30/16 at 09:00 Acetaminophen (Tylenol Liquid) 650 mg Q4H PRN NGT PAIN AND OR ELEVATED TEMP Last administered on 10/05/16 14:02; Admin Dose 650 MG; Start 09/30/16 at 08:30 Prasugrel (Effient) 10 mg DAILY PO Last administered on 10/05/16 08:22; Admin Dose 10 MG; Start 10/02/16 at 09:00 Aspirin (Halfprin) 81 mg DAILY PO Last administered on 10/05/16 08:22; Admin Dose 81 MG; Start 10/02/16 at 09:00 Carvedilol 12.5 mg 12.5 mg BID NGT Last administered on 10/03/16 21:05; Admin Dose 12.5 MG; Start 10/02/16 at 21:00 Norepinephrine 16 mg/Dextrose 500 ml @ 1.87 mls/hr TITRATE IV Last administered on 10/05/16 08:17; Admin Dose 26.25 MLS/HR; Start 10/04/16 at 22: 30 Phenylephrine HCl 40 mg/Dextrose 500 ml @ 75 mls/hr TITRATE IV ; Start at 23:00 Imipenem/ Cilastatin Sodium (Primaxin 250 Mg/ 100 ml (Pmx)) 100 ml @ 166.667 mls/hr Q12 IVPB ; Start 10/05/16 at 21:00 KALPANA MARTINEZ MD Oct 05, 2016 15:05
--- NOTE | 2016-10-05 15:08 | RADRPT ---
PROCEDURE: XR Chest. CLINICAL INDICATION: Assess endotracheal tube position. TECHNIQUE: PA and Lateral views of the chest were obtained. COMPARISON: Chest x-ray 08/21/2016. FINDINGS: The soft tissues are normal. The bony elements are normal. The heart, cardiomediastinal silhouette and hilar structures are normal. The pulmonary vasculature is normal. There is a left-sided aorta. There is a suboptimal inspiratory effort with some compressive atelectasis in the lungs. Plate-like areas of subsegmental atelectasis adjacent to the left heart border on the prior study resolved. T he costophrenic angles are normal. The endotracheal tube is well-positioned near T5 with its tip ju st over 4 cc centimeters superior to the lay. A Port-A-Cath is noted over the left chest wall wi th the catheter tip in the superior vena cava. An NG tube is noted distal to the GE junction. IMPRESSION: 1. The endotracheal tube was advanced to of the level of T5 with its distal tip resting 4.3 cm from the lay. 2. The endotracheal tube and Port-A-Cath identified in the field of view are unremarkable. 3. There is no evidence of active cardiopulmonary disease. there are clips in the left axilla relat ed to surgery. 4. Increased density adjacent to the right heart border may be the result of either atelectasis or early infiltrate. Follow-up imaging is recommended to exclude pneumonia. RPTAT:AAJJ Physician Bel Date Time Electronically viewed and signed by Danyel Harden Physician on 10/05/2016 15:08 ERROL/
[2016-10-05 15:44] LABS: CREATININE 10.69 mg/dl (0.61-1.24)
[2016-10-05 15:48] LABS: POTASSIUM 5.5 mmol/L (3.5-5.1)
--- NOTE | 2016-10-05 20:03 | CONS ---
Date/Time of Note Date/Time of Note DATE: 10/05/16 TIME: 19:57 Assessment/Plan Assessment/Plan Chief Complaint/Hosp Course ID PROGRESS NOTE TOTAL ABX DAY # 9 => Vanco IV + Primaxin #1 s/p Vancomycin. 2. Cefepime-> DC 10/04/16 am 24H INTERVAL SUMMARY * Failed ABX de-escalation attempt yesterday --Cultures have been negative.-- ABX DC'd in AM w/Fever spikes to >103.0 in PM * I was called last night by [facility] [employer] and re-started ABX after repeat MICRO cultures sent * Today fever resolving with WBC rising sharply to 18.5 * 10/05/16 CXR showed: Increased density adjacent to the right heart border may be the result of either atelectasis or early infiltrate. Follow-up imaging is recommended to exclude pneumonia. * MICROBIOLOGY: = pending PHYSICAL EXAMINATION: GENERAL: VSS, NAD, sedated on the Vent HEENT: ETT/NGT secure NECK: Supple, trach-> midline CHEST: Equal chest rise bilaterally, without dyspnea on observation HEART: Pulse RRR ABDOMEN: Soft, benign EXTREMITIES: Warm SKIN: Warm, dry (+)Multiple Tattoos ID ASSESSMENT: 51 yo M admitted with: 1. Status post shock=> RESOLVED * MICROBIOLOGY: Cultures have been negative. 2. Respiratory failure, secondary to fluid overload, possibly aspiration event. 3. COPD - tobacco user 4. End-stage renal disease, hemodialysis dependent. 5. History of coronary artery disease. 6. Diabetes. (-)MRSA Nares INVASIVES: * Endotracheal tube, NG tube, right femoral triple lumen catheter, Foster, left chest Port-A-Cath. ABX ALLERGIES: MACROLIDES, ERYTHROMYCIN CURRENT ABX: TOTAL ABX DAY # 9 => Vanco IV + Primaxin #1 s/p Vancomycin. 2. Cefepime-> DC 10/04/16 am ID RECOMMENDATIONS: 1. Failed ABX de-escalation attempt -> Repeat MICRO pending 2. ABX re-started 12 hours post DC yesterday . . . . Problems: Consultation Date/Type/Reason Admit Date/Time Sep 28, 2016 at 05:39 Initial Consult Date 10/01/16 Type of Consultation: ID Exam/Review of Systems Vital Signs Vitals Vital Signs Date Time Temp Pulse Resp B/P Pulse Ox O2 Delivery O2 Flow Rate FiO2 10/05/16 19:45 99.4 101 23 110/86 96 10/05/16 19:00 Mechanical Ventilator 10/05/16 17:34 30 Intake and Output 10/04/16 10/04/16 10/05/16 15:00 23:00 07:00 Intake Total 618 ml 421.62 ml 982.30 ml Output Total 4500 ml 75 ml 10 ml Balance -3882 ml 346.62 ml 972.30 ml Results Result Diagram: 10/05/16 0500 10/05/16 1505 Results 24 hrs Laboratory Tests Test 10/04/16 20:45 10/04/16 20:48 10/04/16 22:30 10/04/16 22:56 Lactic Acid Level 5.1 *H Bedside Glucose 150 104 Urine Color YELLOW Urine Clarity SLIGHTLY CLOUDY Urine pH 5.5 Urine Specific [place] 1.020 Urine Ketones NEGATIVE Urine Nitrite NEGATIVE Urine Bilirubin 1+ H Urine Ictotest NEGATIVE Urine Urobilinogen 0.2 E.U./dL Urine Leukocyte Esterase NEGATIVE Urine Microscopic RBC 5-10 Urine Microscopic WBC 0-2 Urine Squamous Epithelial Cells OCCASIONAL Urine Amorphous Urates FEW Urine Bacteria MODERATE Urine Hemoglobin 1+ H Urine Glucose NEGATIVE Urine Total Protein 2+ H Test 10/05/16 00:43 10/05/16 02:52 10/05/16 04:45 10/05/16 05:00 Bedside Glucose 132 185 169 White Blood Count 18.5 #H Red Blood Count 4.89 # Hemoglobin 14.0 # Hematocrit 46.2 # Mean Corpuscular Volume 94.5 Mean Corpuscular Hemoglobin 28.6 L Mean Corpuscular Hemoglobin Concent 30.3 L Red Cell Distribution Width 18.1 H Platelet Count 309 # Mean Platelet Volume 12.6 H Neutrophils % 86.5 H Lymphocytes % 6.7 L Monocytes % 5.5 Eosinophils % 0.0 Basophils % 0.3 Nucleated Red Blood Cells % 0.2 H Neutrophils # 16.0 H Lymphocytes # 1.2 Monocytes # 1.0 H Eosinophils # 0.0 Basophils # 0.1 Nucleated Red Blood Cells # 0.0 Blood Gas Specimen Source Blood arterial Arterial Blood Date Drawn 10/05/2016 4:55:59 AM Arterial Blood pH (Temp corrected) 7.412 Arterial Blood pCO2 (Temp correct) 28.8 L Arterial Blood pO2 (Temp corrected) 150.1 H Arterial Blood HCO3 17.9 L Arterial Blood Base Excess -4.9 L Arterial Blood Oxygen Saturation 98.8 H Dick Test N/A Arterial Blood Gas Puncture Site Right Brachial Arterial Blood Carboxyhemoglobin 0.3 Arterial Blood Methemoglobin 0.2 Blood Gas A-a O2 Differential 174.0 H Oxyhemoglobin Percent 98.3 Total Hemoglobin 17.3 Blood Gas Temperature 37.0 Blood Gas Respiration Rate 18.0 Blood Gas Actual Respiration Rate 21 Blood Gas Modality VENT - AC FiO2 50.0 Blood Gas Tidal Volume 600.0 Blood Gas Low PEEP Setting 5.0 Blood Gas Notified Whom UP Blood Gas Notified Time 10/05/2016 5:09:10 AM Sodium Level 148 H Potassium Level 4.8 Chloride Level 100 Carbon Dioxide Level 20 L Anion Gap 33 H Blood Urea Nitrogen 79 H Creatinine 9.61 H Glucose Level 187 Lactic Acid Level 2.5 H Calcium Level 7.8 L Total Bilirubin 0.1 L Direct Bilirubin 0.00 Indirect Bilirubin 0.1 Aspartate Amino Transf (AST/SGOT) 2945 H Alanine Aminotransferase (ALT/SGPT) 1966 H Alkaline Phosphatase 309 H Total Protein 8.7 H Albumin 4.3 Globulin 4.40 H Albumin/Globulin Ratio 0.97 Test 10/05/16 06:45 10/05/16 07:52 10/05/16 08:06 10/05/16 08:49 Bedside Glucose 135 132 124 121 Test 10/05/16 10:57 10/05/16 12:56 10/05/16 14:53 10/05/16 15:05 Bedside Glucose 93 140 145 Sodium Level 147 H Potassium Level 5.5 H Chloride Level 102 Carbon Dioxide Level 21 Anion Gap 30 H Blood Urea Nitrogen 91 H Creatinine 10.69 H Glucose Level 164 Calcium Level 8.0 L Total Bilirubin 0.0 L Direct Bilirubin 0.00 Indirect Bilirubin 0.0 Aspartate Amino Transf (AST/SGOT) 3095 H Alanine Aminotransferase (ALT/SGPT) 2265 H Alkaline Phosphatase 291 H Total Protein 8.0 Albumin 4.0 Globulin 4.00 H Albumin/Globulin Ratio 1.00 Test 10/05/16 16:56 10/05/16 18:57 Bedside Glucose 136 111 Medications Medications Current Medications Ondansetron HCl (Zofran Inj) 4 mg Q6H PRN IV NAUSEA AND/OR VOMITING; Start at 06:00 Acetaminophen (Tylenol Liquid) 650 mg Q6H PRN PO PAIN LEVEL 1-3 OR FEVER Last administered on 09/30/16 08:32; Admin Dose 650 MG; Start 09/28/16 at 06:00 Hydromorphone HCl (Dilaudid) 0.5 mg Q4H PRN IV PAIN LEVEL 7-10 Last administered on 09/30/16 23:48; Admin Dose 0.5 MG; Start 09/28/16 at 06:00 Heparin Sodium (Porcine) (Heparin (5000 Units/0.5 ml)) 5,000 unit Q12 SC Last administered on 10/05/16 08:23; Admin Dose 5,000 UNIT; Start 09/28/16 at 09:00 Miscellaneous Information 1 ea NOTE XX ; Start 09/28/16 at 06:30 Famotidine (Pepcid Iv) 20 mg DAILY IV Last administered on 10/05/16 08:22; Admin Dose 20 MG; Start 09/28/16 at 09:00 Dextrose (D50w Syringe) 25 ml Q15M PRN IV Till BS 80 mg/dL or above x2 Last administered on 10/01/16 16:03; Admin Dose 25 ML; Start 09/28/16 at 08:30 Dextrose 50 ml 50 ml Q15M PRN IV Till BS 80 mg/dL or above x2; Start 09/28/16 at 08:30 Propofol 100 ml @ 2.31 mls/hr Q12H IV Last administered on 09/30/16 13:17; Admin Dose 6.93 MLS/HR; Start 09/28/16 at 11:30 Midazolam HCl 50 ml @ 1 mls/hr TITRATE IV Last administered on 10/03/16 09:16 ; Admin Dose 5 MLS/HR; Start 09/28/16 at 11:30 Fentanyl (Sublimaze) 100 ml @ 2.5 mls/hr TITRATE IV Last administered on 16:48; Admin Dose 2.5 MLS/HR; Start 09/29/16 at 09:00 Diagnostic Test (Pha) (Accu-Chek) 1 ea Q2H XX Last administered on 10/05/16 18 :59; Admin Dose 1 EA; Start 09/30/16 at 09:00 Acetaminophen (Tylenol Liquid) 650 mg Q4H PRN NGT PAIN AND OR ELEVATED TEMP Last administered on 10/05/16 14:02; Admin Dose 650 MG; Start 09/30/16 at 08:30 Prasugrel (Effient) 10 mg DAILY PO Last administered on 10/05/16 08:22; Admin Dose 10 MG; Start 10/02/16 at 09:00 Aspirin (Halfprin) 81 mg DAILY PO Last administered on 10/05/16 08:22; Admin Dose 81 MG; Start 10/02/16 at 09:00 Carvedilol 12.5 mg 12.5 mg BID NGT Last administered on 10/03/16 21:05; Admin Dose 12.5 MG; Start 10/02/16 at 21:00 Norepinephrine 16 mg/Dextrose 500 ml @ 1.87 mls/hr TITRATE IV Last administered on 10/05/16 15:43; Admin Dose 30 MLS/HR; Start 10/04/16 at 22:30 Phenylephrine HCl 40 mg/Dextrose 500 ml @ 75 mls/hr TITRATE IV ; Start at 23:00 Imipenem/ Cilastatin Sodium (Primaxin 250 Mg/ 100 ml (Pmx)) 100 ml @ 166.667 mls/hr Q12 IVPB ; Start 10/05/16 at 21:00 MISA CROFT NP Oct 05, 2016 20:03
[2016-10-05] MEDS: IMIPENEM-CILAST 250MG IV (PMX) 100 ML IVPB SCH (21:18)
[2016-10-06] VITALS (106 sets, daily range): BP systolic 72–134; BP diastolic 53–89; PULSE 70–110; RESP 12–31
[2016-10-06] MEDS: ACCU-CHEK XX SCH ×15 (01:07→23:07)
[2016-10-06] MEDS: ACETAMINOPHEN 650MG/20.3ML CUP NGT PRN ×2 (03:56→23:16)
[2016-10-06 04:47] LABS: ADD SCAN DIFF NO
[2016-10-06 04:50] LABS: BASOPHIL # 0.1 10^3/ul (0.0-0.1); BASOPHILS % 0.6 % (0.0-2.0); EOSINOPHILS % 0.1 % (0.0-7.0); HEMATOCRIT 46.8 % (42.0-52.0); HEMOGLOBIN 14.2 g/dl (14.0-18.0); LYMPHOCYTES # 1.3 10^3/ul (0.8-2.9); LYMPHOCYTES % 8.1 % (15.0-51.0); MEAN CORPUSCULAR HEMOGLOBIN 28.1 pg (29.0-33.0); MEAN CORPUSCULAR HGB CONC 30.3 g/dl (32.0-37.0); MEAN CORPUSCULAR VOLUME 92.7 fl (82.0-101.0); MEAN PLATELET VOLUME 12.5 fl (7.4-10.4); MONOCYTE # 1.1 10^3/ul (0.3-0.9); MONOCYTES % 6.9 % (0.0-11.0); NEUTROPHIL # 13.5 10^3/ul (1.6-7.5); NEUTROPHILS % 83.1 % (39.0-77.0); NUCLEATED RED BLOOD CELLS # 0.1 10^3/ul (0.0-0.0); NUCLEATED RED BLOOD CELLS% 0.7 /100WBC (0.0-0.0); PLATELET COUNT 420 10^3/UL (140-415); RED BLOOD COUNT 5.05 10^6/ul (4.70-6.10); RED CELL DISTRIBUTION WIDTH 18.6 % (11.5-14.5); WHITE BLOOD COUNT 16.3 10^3/ul (4.8-10.8)
[2016-10-06 04:56] LABS: Arterial COHb 0.7 % (0.0-3.0); Arterial Fraction of Oxyhgb 93.1 % (93.0-99.0); Arterial HCO3 14.7 mmol/L (22.0-26.0); Arterial MetHb 0.3 % (0.0-1.5); Arterial Total Hemglobin 16.8 g/dl (12.0-18.0); MODE VENT - AC
[2016-10-06 05:09] LABS: ALBUMIN/GLOBULIN RATIO 1.02; CALCIUM 7.1 mg/dl (8.4-10.2); CREATININE 11.4 mg/dl (0.61-1.24); POTASSIUM 5.6 mmol/L (3.5-5.1); TOTAL PROTEIN 7.9 g/dl (6.1-8.1)
--- NOTE | 2016-10-06 08:14 | RADRPT ---
PROCEDURE: XR Chest. CLINICAL INDICATION: vent TECHNIQUE: Single frontal view of the chest was obtained. COMPARISON: Chest x-ray from 10/05/2016 FINDINGS: The endotracheal tube and enteric tube are unchanged in position. A left-sided Port-A-Cath is again noted. There is stable prominence of interstitial markings, likely due to chronic and / or senescent change s. The aortic arch is calcified. No definite focal infiltrates are identified. There is no significant pleural effusion or pneumothorax. IMPRESSION: No significant interval change. RPTAT: EE Physician Gatito Date Time Electronically viewed and signed by Physician Gatito on 10/06/2016 08:13 /
[2016-10-06] MEDS: FAMOTIDINE 20 MG INJ IV SCH (09:00)
[2016-10-06] MEDS ORDERED: PENDING SANTYL ORDER FOR WOUND CARE XX PRN (09:30)
--- NOTE | 2016-10-06 09:57 | CONS ---
Date/Time of Note Date/Time of Note DATE: 10/06/16 TIME: 09:55 Assessment/Plan Assessment/Plan Additional Assessment/Plan Ventilator settings; AC of 18, tidal volume 600, PEEP of 5, 30% FiO2. Patient is on insulin drip at 7 U/h, Levophed at 22 mics per minute. Chest x-ray was reviewed from today which is totally clear. Assessment recommendations; 1. Patient admitted for respiratory failure due to fluid overload with marked radiological improvement. 2. End-stage renal disease, patient on hemodialysis. 3. Leukocytosis of uncertain etiology, patient on broad-spectrum antibiotic coverage. 4. Poor mental status likely from sedative accumulation. Continue current treatment for now. Weaning from ventilator with depend upon adequate mental status recovery. Consultation Date/Type/Reason Admit Date/Time Sep 28, 2016 at 05:39 Initial Consult Date 09/28/16 Type of Consultation: Pulmonary/critical care 24 HR Interval Summary Free Text/Dictation Patient condition remains critical. Still requiring high-dose Levophed for blood pressure maintenance. Also remains completely unresponsive despite being on sedation for more than 48 hours now. General exam; middle-aged male, orally intubated, unresponsive. Currently in no distress. Exam/Review of Systems Vital Signs Vitals Vital Signs Date Time Temp Pulse Resp B/P Pulse Ox O2 Delivery O2 Flow Rate FiO2 10/06/16 09:15 101 10/06/16 09:00 28 100/55 100 Mechanical Ventilator 10/06/16 08:00 30 10/06/16 08:00 99.6 Intake and Output 10/05/16 10/05/16 10/06/16 14:59 22:59 06:59 Intake Total 578.15 ml 758.50 ml 690.48 ml Output Total 0 ml 0 ml 0 ml Balance 578.15 ml 758.50 ml 690.48 ml Exam HEENT exam is; supple neck, no JVD. No lymphadenopathy. Midline trachea. No thyromegaly. Orally intubated. Pupils are small bilaterally. Chest examination; clear to auscultation. S1-S2 audible, no murmurs. Regular rhythm. Abdomen examination; soft, nondistended, no organomegaly. Bowel sounds audible. Extremity exam is; no peripheral edema. 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 Results Result Diagram: 10/06/16 0425 10/06/16424 Results 24 hrs Laboratory Tests Test 10/05/16 10:57 10/05/16 12:56 10/05/16 14:53 10/05/16 15:05 Bedside Glucose 93 140 145 Sodium Level 147 H Potassium Level 5.5 H Chloride Level 102 Carbon Dioxide Level 21 Anion Gap 30 H Blood Urea Nitrogen 91 H Creatinine 10.69 H Glucose Level 164 Calcium Level 8.0 L Total Bilirubin 0.0 L Direct Bilirubin 0.00 Indirect Bilirubin 0.0 Aspartate Amino Transf (AST/SGOT) 3095 H Alanine Aminotransferase (ALT/SGPT) 2265 H Alkaline Phosphatase 291 H Total Protein 8.0 Albumin 4.0 Globulin 4.00 H Albumin/Globulin Ratio 1.00 Test 10/05/16 16:56 10/05/16 18:57 10/05/16 20:11 10/05/16 20:13 Bedside Glucose 136 111 139 135 Test 10/05/16 21:19 10/05/16 22:17 10/05/16 23:06 10/06/16 01:06 Bedside Glucose 126 135 126 114 Test 10/06/16 03:17 10/06/16 04:25 10/06/16 04:56 10/06/16 05:00 Bedside Glucose 140 143 White Blood Count 16.3 H Red Blood Count 5.05 Hemoglobin 14.2 Hematocrit 46.8 Mean Corpuscular Volume 92.7 Mean Corpuscular Hemoglobin 28.1 L Mean Corpuscular Hemoglobin Concent 30.3 L Red Cell Distribution Width 18.6 H Platelet Count 420 #H Mean Platelet Volume 12.5 H Neutrophils % 83.1 H Lymphocytes % 8.1 L Monocytes % 6.9 Eosinophils % 0.1 Basophils % 0.6 Nucleated Red Blood Cells % 0.7 H Neutrophils # 13.5 H Lymphocytes # 1.3 Monocytes # 1.1 H Eosinophils # 0.0 Basophils # 0.1 Nucleated Red Blood Cells # 0.1 H Sodium Level 147 H Potassium Level 5.6 H Chloride Level 105 Carbon Dioxide Level 18 L Anion Gap 30 H Blood Urea Nitrogen 105 H Creatinine 11.40 H Glucose Level 189 Lactic Acid Level 1.8 Calcium Level 7.1 L Total Bilirubin 0.0 L Direct Bilirubin 0.00 Indirect Bilirubin 0.0 Aspartate Amino Transf (AST/SGOT) 3613 H Alanine Aminotransferase (ALT/SGPT) 2508 H Alkaline Phosphatase 335 H Total Protein 7.9 Albumin 4.0 Globulin 3.90 H Albumin/Globulin Ratio 1.02 Blood Gas Specimen Source Blood arterial Arterial Blood Date Drawn 10/06/2016 4:48:57 AM Arterial Blood pH (Temp corrected) 7.349 L Arterial Blood pCO2 (Temp correct) 27.3 L Arterial Blood pO2 (Temp corrected) 76.8 L Arterial Blood HCO3 14.7 L Arterial Blood Base Excess -9.0 L Arterial Blood Oxygen Saturation 94.0 L Dick Test N/A Arterial Blood Gas Puncture Site Right Brachial Arterial Blood Carboxyhemoglobin 0.7 Arterial Blood Methemoglobin 0.3 Blood Gas A-a O2 Differential 105.0 H Oxyhemoglobin Percent 93.1 Total Hemoglobin 16.8 Blood Gas Temperature 37.0 Blood Gas Respiration Rate 18.0 Blood Gas Actual Respiration Rate 25 Blood Gas Modality VENT - AC FiO2 30.0 Blood Gas Tidal Volume 600.0 Blood Gas Low PEEP Setting 5.0 Blood Gas Inspiratory Pressure 24.0 Blood Gas Notified Whom BR Blood Gas Notified Time 10/06/2016 4:55:55 AM Test 10/06/16 06:56 10/06/16 08:59 Bedside Glucose 149 151 Medications Medications Current Medications Ondansetron HCl (Zofran Inj) 4 mg Q6H PRN IV NAUSEA AND/OR VOMITING; Start at 06:00 Acetaminophen (Tylenol Liquid) 650 mg Q6H PRN PO PAIN LEVEL 1-3 OR FEVER Last administered on 09/30/16 08:32; Admin Dose 650 MG; Start 09/28/16 at 06:00 Hydromorphone HCl (Dilaudid) 0.5 mg Q4H PRN IV PAIN LEVEL 7-10 Last administered on 09/30/16 23:48; Admin Dose 0.5 MG; Start 09/28/16 at 06:00 Heparin Sodium (Porcine) (Heparin (5000 Units/0.5 ml)) 5,000 unit Q12 SC Last administered on 10/05/16 21:21; Admin Dose 5,000 UNIT; Start 09/28/16 at 09:00 Miscellaneous Information 1 ea NOTE XX ; Start 09/28/16 at 06:30 Famotidine (Pepcid Iv) 20 mg DAILY IV Last administered on 10/05/16 08:22; Admin Dose 20 MG; Start 09/28/16 at 09:00 Dextrose (D50w Syringe) 25 ml Q15M PRN IV Till BS 80 mg/dL or above x2 Last administered on 10/01/16 16:03; Admin Dose 25 ML; Start 09/28/16 at 08:30 Dextrose 50 ml 50 ml Q15M PRN IV Till BS 80 mg/dL or above x2; Start 09/28/16 at 08:30 Propofol 100 ml @ 2.31 mls/hr Q12H IV Last administered on 09/30/16 13:17; Admin Dose 6.93 MLS/HR; Start 09/28/16 at 11:30 Midazolam HCl 50 ml @ 1 mls/hr TITRATE IV Last administered on 10/03/16 09:16 ; Admin Dose 5 MLS/HR; Start 09/28/16 at 11:30 Fentanyl (Sublimaze) 100 ml @ 2.5 mls/hr TITRATE IV Last administered on 16:48; Admin Dose 2.5 MLS/HR; Start 09/29/16 at 09:00 Diagnostic Test (Pha) (Accu-Chek) 1 ea Q2H XX Last administered on 10/06/16 08 :59; Admin Dose 1 EA; Start 09/30/16 at 09:00 Acetaminophen (Tylenol Liquid) 650 mg Q4H PRN NGT PAIN AND OR ELEVATED TEMP Last administered on 10/06/16 03:56; Admin Dose 650 MG; Start 09/30/16 at 08:30 Prasugrel (Effient) 10 mg DAILY PO Last administered on 10/05/16 08:22; Admin Dose 10 MG; Start 10/02/16 at 09:00 Aspirin (Halfprin) 81 mg DAILY PO Last administered on 10/05/16 08:22; Admin Dose 81 MG; Start 10/02/16 at 09:00 Carvedilol 12.5 mg 12.5 mg BID NGT Last administered on 10/03/16 21:05; Admin Dose 12.5 MG; Start 10/02/16 at 21:00 Norepinephrine 16 mg/Dextrose 500 ml @ 1.87 mls/hr TITRATE IV Last administered on 10/06/16 04:10; Admin Dose 31.87 MLS/HR; Start 10/04/16 at 22: 30 Phenylephrine HCl 40 mg/Dextrose 500 ml @ 75 mls/hr TITRATE IV ; Start at 23:00 Imipenem/ Cilastatin Sodium (Primaxin 250 Mg/ 100 ml (Pmx)) 100 ml @ 166.667 mls/hr Q12 IVPB Last administered on 10/05/16t 21:18; Admin Dose 166.667 MLS/HR ; Start 10/05/16 at 21:00 Miscellaneous Information (Pending Santyl Order For Wound Care) This patient osorio... PRN PRN XX WOUND CARE; Start 10/06/16 at 09:30; Status ELTON CNOTRERAS Oct 06, 2016 09:57
[2016-10-06] MEDS: PRASUGREL HYDROCHLORIDE 10 MG TABLET PO SCH (10:58)
[2016-10-06] MEDS: ASPIRIN (EC) 81 MG TAB PO SCH (10:58)
[2016-10-06] MEDS: IMIPENEM-CILAST 250MG IV (PMX) 100 ML IVPB SCH ×2 (10:58→20:53)
[2016-10-06] MEDS: HEPARIN 5,000 UNIT/0.5 ML VIAL SC SCH ×2 (11:00→20:23)
[2016-10-06] MEDS: INSULIN HUMAN REGULAR 100 UNIT in SOD CHLORIDE 0.9% 99 ML IV SCH (11:02)
[2016-10-06] MEDS ORDERED: SOD CHLORIDE 0.9% 250 ML IV ONE (11:30)
[2016-10-06] MEDS: PROPOFOL 100 ML IV SCH ×2 (11:30→23:22)
--- NOTE | 2016-10-06 11:41 | CONS ---
Date/Time of Note Date/Time of Note DATE: 10/06/16 TIME: 11:33 Assessment/Plan Assessment/Plan Chief Complaint/Hosp Course 1. ESRD , he is on maintenance hemodialysis . He had hemodialysis this morning. He was hypotensive during the dialysis treatment. He did receive IV fluid during dialysis. A total of 1 L of fluid was removed. He is hypotensive on pressors. He looks volume depleted at this time. I am going to give him a bolus of normal saline. 2. Type I DM 3. h/o flash pulmonary edema 4. HTN 5. CAD 6. respiratory failure on vent 7. fever , blood cultures no growth thus far .. 8. ALOC , he is sedated on Vent . 10. He had a fever yesterday. He has an elevated white blood count today . He did grow gram-positive cocci in 1 blood culture 2 days ago. He is on antibiotics. Problems: Consultation Date/Type/Reason Admit Date/Time Sep 28, 2016 at 05:39 Initial Consult Date 09/28/16 Type of Consultation: renal 24 HR Interval Summary Free Text/Dictation He is in the intensive care unit intubated on a ventilator and sedated. He just finished hemodialysis treatment this morning. He was hypotensive during dialysis and received fluid. A total of 1 L was removed. Subjective hx not possible: pt non-verbal Exam/Review of Systems Vital Signs Vitals Vital Signs Date Time Temp Pulse Resp B/P Pulse Ox O2 Delivery O2 Flow Rate FiO2 10/06/16 11:24 98 24 100 30 10/06/16 09:00 100/55 Mechanical Ventilator 10/06/16 08:00 99.6 Intake and Output 10/05/16 10/05/16 10/06/16 15:00 23:00 07:00 Intake Total 575.25 ml 780.50 ml 700.48 ml Output Total 0 ml 0 ml 0 ml Balance 575.25 ml 780.50 ml 700.48 ml Exam Constitutional: non-verbal Respiratory: clear to auscultation, diminished breath sounds Cardiovascular: regular rate and rhythm Gastrointestinal: soft Musculoskeletal: nl extremities to inspection Results Result Diagram: 10/06/16 0425 10/06/16 0425 Results 24 hrs Laboratory Tests Test 10/05/16 12:56 10/05/16 14:53 10/05/16 15:05 10/05/16 16:56 Bedside Glucose 140 145 136 Sodium Level 147 H Potassium Level 5.5 H Chloride Level 102 Carbon Dioxide Level 21 Anion Gap 30 H Blood Urea Nitrogen 91 H Creatinine 10.69 H Glucose Level 164 Calcium Level 8.0 L Total Bilirubin 0.0 L Direct Bilirubin 0.00 Indirect Bilirubin 0.0 Aspartate Amino Transf (AST/SGOT) 3095 H Alanine Aminotransferase (ALT/SGPT) 2265 H Alkaline Phosphatase 291 H Total Protein 8.0 Albumin 4.0 Globulin 4.00 H Albumin/Globulin Ratio 1.00 Test 10/05/16 18:57 10/05/16 20:11 10/05/16 20:13 10/05/16 21:19 Bedside Glucose 111 139 135 126 Test 10/05/16 22:17 10/05/16 23:06 10/06/16 01:06 10/06/16 03:17 Bedside Glucose 135 126 114 140 Test 10/06/16 04:25 10/06/16 04:56 10/06/16 05:00 10/06/16 06:56 White Blood Count 16.3 H Red Blood Count 5.05 Hemoglobin 14.2 Hematocrit 46.8 Mean Corpuscular Volume 92.7 Mean Corpuscular Hemoglobin 28.1 L Mean Corpuscular Hemoglobin Concent 30.3 L Red Cell Distribution Width 18.6 H Platelet Count 420 #H Mean Platelet Volume 12.5 H Neutrophils % 83.1 H Lymphocytes % 8.1 L Monocytes % 6.9 Eosinophils % 0.1 Basophils % 0.6 Nucleated Red Blood Cells % 0.7 H Neutrophils # 13.5 H Lymphocytes # 1.3 Monocytes # 1.1 H Eosinophils # 0.0 Basophils # 0.1 Nucleated Red Blood Cells # 0.1 H Sodium Level 147 H Potassium Level 5.6 H Chloride Level 105 Carbon Dioxide Level 18 L Anion Gap 30 H Blood Urea Nitrogen 105 H Creatinine 11.40 H Glucose Level 189 Lactic Acid Level 1.8 Calcium Level 7.1 L Total Bilirubin 0.0 L Direct Bilirubin 0.00 Indirect Bilirubin 0.0 Aspartate Amino Transf (AST/SGOT) 3613 H Alanine Aminotransferase (ALT/SGPT) 2508 H Alkaline Phosphatase 335 H Total Protein 7.9 Albumin 4.0 Globulin 3.90 H Albumin/Globulin Ratio 1.02 Bedside Glucose 143 149 Blood Gas Specimen Source Blood arterial Arterial Blood Date Drawn 10/06/2016 4:48:57 AM Arterial Blood pH (Temp corrected) 7.349 L Arterial Blood pCO2 (Temp correct) 27.3 L Arterial Blood pO2 (Temp corrected) 76.8 L Arterial Blood HCO3 14.7 L Arterial Blood Base Excess -9.0 L Arterial Blood Oxygen Saturation 94.0 L Dick Test N/A Arterial Blood Gas Puncture Site Right Brachial Arterial Blood Carboxyhemoglobin 0.7 Arterial Blood Methemoglobin 0.3 Blood Gas A-a O2 Differential 105.0 H Oxyhemoglobin Percent 93.1 Total Hemoglobin 16.8 Blood Gas Temperature 37.0 Blood Gas Respiration Rate 18.0 Blood Gas Actual Respiration Rate 25 Blood Gas Modality VENT - AC FiO2 30.0 Blood Gas Tidal Volume 600.0 Blood Gas Low PEEP Setting 5.0 Blood Gas Inspiratory Pressure 24.0 Blood Gas Notified Whom BR Blood Gas Notified Time 10/06/2016 4:55:55 AM Test 10/06/16 08:59 Bedside Glucose 151 Medications Medications Current Medications Ondansetron HCl (Zofran Inj) 4 mg Q6H PRN IV NAUSEA AND/OR VOMITING; Start at 06:00 Acetaminophen (Tylenol Liquid) 650 mg Q6H PRN PO PAIN LEVEL 1-3 OR FEVER Last administered on 09/30/16 08:32; Admin Dose 650 MG; Start 09/28/16 at 06:00 Hydromorphone HCl (Dilaudid) 0.5 mg Q4H PRN IV PAIN LEVEL 7-10 Last administered on 09/30/16 23:48; Admin Dose 0.5 MG; Start 09/28/16 at 06:00 Heparin Sodium (Porcine) (Heparin (5000 Units/0.5 ml)) 5,000 unit Q12 SC Last administered on 10/06/16 11:00; Admin Dose 5,000 UNIT; Start 09/28/16 at 09:00 Miscellaneous Information 1 ea NOTE XX ; Start 09/28/16 at 06:30 Famotidine (Pepcid Iv) 20 mg DAILY IV Last administered on 10/06/16 09:00; Admin Dose 20 MG; Start 09/28/16 at 09:00 Dextrose (D50w Syringe) 25 ml Q15M PRN IV Till BS 80 mg/dL or above x2 Last administered on 10/01/16 16:03; Admin Dose 25 ML; Start 09/28/16 at 08:30 Dextrose 50 ml 50 ml Q15M PRN IV Till BS 80 mg/dL or above x2; Start 09/28/16 at 08:30 Propofol 100 ml @ 2.31 mls/hr Q12H IV Last administered on 09/30/16 13:17; Admin Dose 6.93 MLS/HR; Start 09/28/16 at 11:30 Midazolam HCl 50 ml @ 1 mls/hr TITRATE IV Last administered on 10/03/16 09:16 ; Admin Dose 5 MLS/HR; Start 09/28/16 at 11:30 Fentanyl (Sublimaze) 100 ml @ 2.5 mls/hr TITRATE IV Last administered on 16:48; Admin Dose 2.5 MLS/HR; Start 09/29/16 at 09:00 Diagnostic Test (Pha) (Accu-Chek) 1 ea Q2H XX Last administered on 10/06/16 08 :59; Admin Dose 1 EA; Start 09/30/16 at 09:00 Acetaminophen (Tylenol Liquid) 650 mg Q4H PRN NGT PAIN AND OR ELEVATED TEMP Last administered on 10/06/16 03:56; Admin Dose 650 MG; Start 09/30/16 at 08:30 Prasugrel (Effient) 10 mg DAILY PO Last administered on 10/06/16 10:58; Admin Dose 10 MG; Start 10/02/16 at 09:00 Aspirin (Halfprin) 81 mg DAILY PO Last administered on 10/06/16 10:58; Admin Dose 81 MG; Start 10/02/16 at 09:00 Carvedilol 12.5 mg 12.5 mg BID NGT Last administered on 10/03/16 21:05; Admin Dose 12.5 MG; Start 10/02/16 at 21:00 Norepinephrine 16 mg/Dextrose 500 ml @ 1.87 mls/hr TITRATE IV Last administered on 10/06/16 04:10; Admin Dose 31.87 MLS/HR; Start 10/04/16 at 22: 30 Phenylephrine HCl 40 mg/Dextrose 500 ml @ 75 mls/hr TITRATE IV ; Start at 23:00 Imipenem/ Cilastatin Sodium (Primaxin 250 Mg/ 100 ml (Pmx)) 100 ml @ 166.667 mls/hr Q12 IVPB Last administered on 10/06/16t 10:58; Admin Dose 166.667 MLS/HR ; Start 10/05/16 at 21:00 Miscellaneous Information (Pending Santyl Order For Wound Care) This patient osorio... PRN PRN XX WOUND CARE; Start 10/06/16 at 09:30 DONY HOWARD MD Oct 06, 2016 11:41
[2016-10-06] MEDS ORDERED: PHENYLephrine 40 MG in DEXTROSE 5% 496 ML IV SCH (12:00)
--- NOTE | 2016-10-06 12:04 | CONS ---
Date/Time of Note Date/Time of Note DATE: 10/06/16 TIME: 11:45 Assessment/Plan Assessment/Plan Chief Complaint/Hosp Course ID PROGRESS NOTE TOTAL ABX DAY # 10 => Vanco IV + Primaxin #2 s/p Vancomycin. 2. Cefepime-> DC 10/04/16 am 24H INTERVAL SUMMARY * Fevers down today, WBC down --> Was called last night by noc shift RN that patient had (+)GPG pairs/chains on BCx; this am when I looked the result had not been updated on lab micro report; now posted below. All ABX were DC'd am due to (-)MICRO -> he spiked fevers > 103 within 12H OFF ABX and blood cx sent. ABX Primaxin was restarted last pm SAT night . * BCx 10/04/16 (+)1/2 bottles ? LIne Sepsis ? * 10/04/16-2029 Rcvd: 10/04/16 Source: BLOOD Sp Descrip: Microbiology BLOOD CULTURE Preliminary BCULT GRAM BOTTLE 1 Gram positive cocci in pairs and chains . . Organism 1 GRAM POSITIVE COCCI PHYSICAL EXAMINATION: GENERAL: VSS, NAD, sedated on the Vent HEENT: ETT/NGT secure NECK: Supple, trach-> midline CHEST: Equal chest rise bilaterally, without dyspnea on observation HEART: Pulse RRR ABDOMEN: Soft, benign EXTREMITIES: Warm SKIN: Warm, dry (+)Multiple Tattoos ID ASSESSMENT: 51 yo M admitted with: 1. Recurrent sepsis w/ FEVER > 103 10/04, leukocytosis -> Failed ABX de- escalation attempt SAT 10/04 * 10/04/16 BCx (+) 1/2 => LIne Sepsis ? * Status post shock on admission w/all admission cultures were negative -> ABX DC'd 10/04/16 am with recurrent sepsis within 12H 2. Respiratory failure, secondary to fluid overload, possibly aspiration event. 3. COPD - tobacco user 4. End-stage renal disease, hemodialysis dependent-> LUEXT AVF 5. History of coronary artery disease. 6. Diabetes. (-)MRSA Nares INVASIVES: * ETT, NGT, L-FEM TLC, FC, left chest Port-A-Cath. ABX ALLERGIES: MACROLIDES, ERYTHROMYCIN CURRENT ABX: TOTAL ABX DAY # 10 => Vanco IV + Primaxin #2 s/p Vancomycin. 2. Cefepime-> DC 10/04/16 am ID RECOMMENDATIONS: 1. DC Femoral line-> Cx tip 2. Continue current ABX, await final ID GPC ?strep ?enterococcus? 3. If he spike temp again -> draw BCx from the Port-A-Cath . . . . . Problems: Consultation Date/Type/Reason Admit Date/Time Sep 28, 2016 at 05:39 Initial Consult Date 10/01/16 Type of Consultation: ID Exam/Review of Systems Vital Signs Vitals Vital Signs Date Time Temp Pulse Resp B/P Pulse Ox O2 Delivery O2 Flow Rate FiO2 10/06/16 11:24 98 24 100 30 10/06/16 09:00 100/55 Mechanical Ventilator 10/06/16 08:00 99.6 Intake and Output 10/05/16 10/05/16 10/06/16 15:00 23:00 07:00 Intake Total 575.25 ml 780.50 ml 700.48 ml Output Total 0 ml 0 ml 0 ml Balance 575.25 ml 780.50 ml 700.48 ml Results Result Diagram: 10/06/16 0425 10/06/16 0425 Results 24 hrs Laboratory Tests Test 10/05/16 12:56 10/05/16 14:53 10/05/16 15:05 10/05/16 16:56 Bedside Glucose 140 145 136 Sodium Level 147 H Potassium Level 5.5 H Chloride Level 102 Carbon Dioxide Level 21 Anion Gap 30 H Blood Urea Nitrogen 91 H Creatinine 10.69 H Glucose Level 164 Calcium Level 8.0 L Total Bilirubin 0.0 L Direct Bilirubin 0.00 Indirect Bilirubin 0.0 Aspartate Amino Transf (AST/SGOT) 3095 H Alanine Aminotransferase (ALT/SGPT) 2265 H Alkaline Phosphatase 291 H Total Protein 8.0 Albumin 4.0 Globulin 4.00 H Albumin/Globulin Ratio 1.00 Test 10/05/16 18:57 10/05/16 20:11 10/05/16 20:13 10/05/16 21:19 Bedside Glucose 111 139 135 126 Test 10/05/16 22:17 10/05/16 23:06 10/06/16 01:06 10/06/16 03:17 Bedside Glucose 135 126 114 140 Test 10/06/16 04:25 10/06/16 04:56 10/06/16 05:00 10/06/16 06:56 White Blood Count 16.3 H Red Blood Count 5.05 Hemoglobin 14.2 Hematocrit 46.8 Mean Corpuscular Volume 92.7 Mean Corpuscular Hemoglobin 28.1 L Mean Corpuscular Hemoglobin Concent 30.3 L Red Cell Distribution Width 18.6 H Platelet Count 420 #H Mean Platelet Volume 12.5 H Neutrophils % 83.1 H Lymphocytes % 8.1 L Monocytes % 6.9 Eosinophils % 0.1 Basophils % 0.6 Nucleated Red Blood Cells % 0.7 H Neutrophils # 13.5 H Lymphocytes # 1.3 Monocytes # 1.1 H Eosinophils # 0.0 Basophils # 0.1 Nucleated Red Blood Cells # 0.1 H Sodium Level 147 H Potassium Level 5.6 H Chloride Level 105 Carbon Dioxide Level 18 L Anion Gap 30 H Blood Urea Nitrogen 105 H Creatinine 11.40 H Glucose Level 189 Lactic Acid Level 1.8 Calcium Level 7.1 L Total Bilirubin 0.0 L Direct Bilirubin 0.00 Indirect Bilirubin 0.0 Aspartate Amino Transf (AST/SGOT) 3613 H Alanine Aminotransferase (ALT/SGPT) 2508 H Alkaline Phosphatase 335 H Total Protein 7.9 Albumin 4.0 Globulin 3.90 H Albumin/Globulin Ratio 1.02 Bedside Glucose 143 149 Blood Gas Specimen Source Blood arterial Arterial Blood Date Drawn 10/06/2016 4:48:57 AM Arterial Blood pH (Temp corrected) 7.349 L Arterial Blood pCO2 (Temp correct) 27.3 L Arterial Blood pO2 (Temp corrected) 76.8 L Arterial Blood HCO3 14.7 L Arterial Blood Base Excess -9.0 L Arterial Blood Oxygen Saturation 94.0 L Dick Test N/A Arterial Blood Gas Puncture Site Right Brachial Arterial Blood Carboxyhemoglobin 0.7 Arterial Blood Methemoglobin 0.3 Blood Gas A-a O2 Differential 105.0 H Oxyhemoglobin Percent 93.1 Total Hemoglobin 16.8 Blood Gas Temperature 37.0 Blood Gas Respiration Rate 18.0 Blood Gas Actual Respiration Rate 25 Blood Gas Modality VENT - AC FiO2 30.0 Blood Gas Tidal Volume 600.0 Blood Gas Low PEEP Setting 5.0 Blood Gas Inspiratory Pressure 24.0 Blood Gas Notified Whom BR Blood Gas Notified Time 10/06/2016 4:55:55 AM Test 10/06/16 08:59 Bedside Glucose 151 Medications Medications Current Medications Ondansetron HCl (Zofran Inj) 4 mg Q6H PRN IV NAUSEA AND/OR VOMITING; Start at 06:00 Acetaminophen (Tylenol Liquid) 650 mg Q6H PRN PO PAIN LEVEL 1-3 OR FEVER Last administered on 09/30/16 08:32; Admin Dose 650 MG; Start 09/28/16 at 06:00 Hydromorphone HCl (Dilaudid) 0.5 mg Q4H PRN IV PAIN LEVEL 7-10 Last administered on 09/30/16 23:48; Admin Dose 0.5 MG; Start 09/28/16 at 06:00 Heparin Sodium (Porcine) (Heparin (5000 Units/0.5 ml)) 5,000 unit Q12 SC Last administered on 10/06/16 11:00; Admin Dose 5,000 UNIT; Start 09/28/16 at 09:00 Miscellaneous Information 1 ea NOTE XX ; Start 09/28/16 at 06:30 Famotidine (Pepcid Iv) 20 mg DAILY IV Last administered on 10/06/16 09:00; Admin Dose 20 MG; Start 09/28/16 at 09:00 Dextrose (D50w Syringe) 25 ml Q15M PRN IV Till BS 80 mg/dL or above x2 Last administered on 10/01/16 16:03; Admin Dose 25 ML; Start 09/28/16 at 08:30 Dextrose 50 ml 50 ml Q15M PRN IV Till BS 80 mg/dL or above x2; Start 09/28/16 at 08:30 Propofol 100 ml @ 2.31 mls/hr Q12H IV Last administered on 09/30/16 13:17; Admin Dose 6.93 MLS/HR; Start 09/28/16 at 11:30 Midazolam HCl 50 ml @ 1 mls/hr TITRATE IV Last administered on 10/03/16 09:16 ; Admin Dose 5 MLS/HR; Start 09/28/16 at 11:30 Fentanyl (Sublimaze) 100 ml @ 2.5 mls/hr TITRATE IV Last administered on 16:48; Admin Dose 2.5 MLS/HR; Start 09/29/16 at 09:00 Diagnostic Test (Pha) (Accu-Chek) 1 ea Q2H XX Last administered on 10/06/16 08 :59; Admin Dose 1 EA; Start 09/30/16 at 09:00 Acetaminophen (Tylenol Liquid) 650 mg Q4H PRN NGT PAIN AND OR ELEVATED TEMP Last administered on 10/06/16 03:56; Admin Dose 650 MG; Start 09/30/16 at 08:30 Prasugrel (Effient) 10 mg DAILY PO Last administered on 10/06/16 10:58; Admin Dose 10 MG; Start 10/02/16 at 09:00 Aspirin (Halfprin) 81 mg DAILY PO Last administered on 10/06/16 10:58; Admin Dose 81 MG; Start 10/02/16 at 09:00 Carvedilol 12.5 mg 12.5 mg BID NGT Last administered on 10/03/16 21:05; Admin Dose 12.5 MG; Start 10/02/16 at 21:00 Imipenem/ Cilastatin Sodium (Primaxin 250 Mg/ 100 ml (Pmx)) 100 ml @ 166.667 mls/hr Q12 IVPB Last administered on 10/06/16 10:58; Admin Dose 166.667 MLS/HR ; Start 10/05/16 at 21:00 Miscellaneous Information This patient osorio... PRN PRN XX WOUND CARE; Start 10/06 at 09:30 Sodium Chloride 250 ml @ 250 mls/hr Q1H ONCE IV ; Start 10/06/16 at 11:30; Stop 10/06/16 at 12:29; Status UNV Norepinephrine 16 mg/Dextrose 500 ml @ 1.87 mls/hr TITRATE IV ; Start 10/06/16 at 12:00; Status UNV Phenylephrine HCl/ Dextrose (Brice-Syneph/D5W) 500 ml @ 75 mls/hr TITRATE IV ; Start 10/06/16 at 12:00; Status UNV [employer] Oct 06, 2016 11:56
--- NOTE | 2016-10-06 12:09 | PN ---
Date/Time of Note Date/Time of Note DATE: 10/06/16 TIME: 12:03 Assessment/Plan VTE Prophylaxis VTE Prophylaxis Intervention: SCD's Lines/Catheters IV [facility]from [facility] Central Line Central line still needed: Yes Urinary Cath still in place: No Assessment/Plan Chief Complaint/Hosp Course ASSESSMENT AND PLAN: 1. Acute respiratory failure, requiring oral intubation and ventilatory support secondary to pulmonary edema. Dr. Nunez is following in pulmonology consultation. Continue ventilator support. 2. End-stage renal disease, hemodialysis dependent. Dr. Hubbard is following the patient in nephrology consultation. Continue the hemodialysis per nephrology. 3. Diabetes mellitus type [address] Garay is following endocrinology consultation. Continue patient on insulin drip. The patient usually has an insulin pump, which is currently discontinued. 4. Peripheral arterial disease, status post vascular intervention. Continue Eliquis. 5. Anemia of chronic disease. Continue Epogen. 6. Coronary artery disease. Dr. Stephen is following in cardiology consultation. 7. Possible healthcare acquired pneumonia. Continue antibiotics per ID. Dr. Allison is following in ID consultation. 8. Possible sepsis secondary to pneumonia. Continue IV fluids and pressors for hemodynamic support, ICU care. 9. Transaminitis, Dr. Britt is following in gastroenterology consultation 10. Gram-positive cocci bacteremia, continue antibiotics per ID. Continue heparin for deep venous thrombosis prophylaxis and Pepcid for peptic ulcer disease prophylaxis. Further recommendations based on clinical course. Plan of care discussed with Dr. Rosales. Problems: Subjective 24 Hr Interval Summary Free Text/Dictation Patient is obtunded however moves all extremities, off sedation, continues on levo fed for hemodynamic support, status post hemodialysis today. Insulin drip. Exam/Review of Systems Vital Signs Vitals Vital Signs Date Time Temp Pulse Resp B/P Pulse Ox O2 Delivery O2 Flow Rate FiO2 10/06/16 11:24 98 24 100 30 10/06/16 11:15 110/78 10/06/16 11:00 Mechanical Ventilator 10/06/16 08:00 99.6 Intake and Output 10/05/16 10/05/16 10/06/16 15:00 23:00 07:00 Intake Total 575.25 ml 780.50 ml 700.48 ml Output Total 0 ml 0 ml 0 ml Balance 575.25 ml 780.50 ml 700.48 ml Exam GENERAL: Well-developed, well-nourished gentleman currently orally intubated on vent support, obtunded. HEENT: Head is atraumatic, normocephalic. Patient has a right eye prosthesis. Left eye pupil is equal, round, sluggishly reactive to light and accommodation. NECK: Supple, no cervical lymphadenopathy, no thyromegaly. CHEST: Lung sounds diminished at the bases. Scattered rhonchi bilaterally. Patient has a left chest Port-A-Cath. CARDIOVASCULAR: Normal S1, S2. No murmurs, gallops, clicks, rubs noted. ABDOMEN: Round, soft, nondistended, nontender. Bowel sounds present. EXTREMITIES: There is mild edema. There is no clubbing, cyanosis. Left upper extremity with AV graft. SKIN: No rash, petechiae noted. NEUROLOGIC: Patient is obtunded. Results Result Diagram: 10/06/16 0425 10/06/16 0425 Results 24 hrs Laboratory Tests Test 10/05/16 12:56 10/05/16 14:53 10/05/16 15:05 10/05/16 16:56 Bedside Glucose 140 145 136 Sodium Level 147 H Potassium Level 5.5 H Chloride Level 102 Carbon Dioxide Level 21 Anion Gap 30 H Blood Urea Nitrogen 91 H Creatinine 10.69 H Glucose Level 164 Calcium Level 8.0 L Total Bilirubin 0.0 L Direct Bilirubin 0.00 Indirect Bilirubin 0.0 Aspartate Amino Transf (AST/SGOT) 3095 H Alanine Aminotransferase (ALT/SGPT) 2265 H Alkaline Phosphatase 291 H Total Protein 8.0 Albumin 4.0 Globulin 4.00 H Albumin/Globulin Ratio 1.00 Test 10/05/16 18:57 10/05/16 20:11 10/05/16 20:13 10/05/16 21:19 Bedside Glucose 111 139 135 126 Test 10/05/16 22:17 10/05/16 23:06 10/06/16 01:06 10/06/16 03:17 Bedside Glucose 135 126 114 140 Test 10/06/16 04:25 10/06/16 04:56 10/06/16 05:00 10/06/16 06:56 White Blood Count 16.3 H Red Blood Count 5.05 Hemoglobin 14.2 Hematocrit 46.8 Mean Corpuscular Volume 92.7 Mean Corpuscular Hemoglobin 28.1 L Mean Corpuscular Hemoglobin Concent 30.3 L Red Cell Distribution Width 18.6 H Platelet Count 420 #H Mean Platelet Volume 12.5 H Neutrophils % 83.1 H Lymphocytes % 8.1 L Monocytes % 6.9 Eosinophils % 0.1 Basophils % 0.6 Nucleated Red Blood Cells % 0.7 H Neutrophils # 13.5 H Lymphocytes # 1.3 Monocytes # 1.1 H Eosinophils # 0.0 Basophils # 0.1 Nucleated Red Blood Cells # 0.1 H Sodium Level 147 H Potassium Level 5.6 H Chloride Level 105 Carbon Dioxide Level 18 L Anion Gap 30 H Blood Urea Nitrogen 105 H Creatinine 11.40 H Glucose Level 189 Lactic Acid Level 1.8 Calcium Level 7.1 L Total Bilirubin 0.0 L Direct Bilirubin 0.00 Indirect Bilirubin 0.0 Aspartate Amino Transf (AST/SGOT) 3613 H Alanine Aminotransferase (ALT/SGPT) 2508 H Alkaline Phosphatase 335 H Total Protein 7.9 Albumin 4.0 Globulin 3.90 H Albumin/Globulin Ratio 1.02 Bedside Glucose 143 149 Blood Gas Specimen Source Blood arterial Arterial Blood Date Drawn 10/06/2016 4:48:57 AM Arterial Blood pH (Temp corrected) 7.349 L Arterial Blood pCO2 (Temp correct) 27.3 L Arterial Blood pO2 (Temp corrected) 76.8 L Arterial Blood HCO3 14.7 L Arterial Blood Base Excess -9.0 L Arterial Blood Oxygen Saturation 94.0 L Dick Test N/A Arterial Blood Gas Puncture Site Right Brachial Arterial Blood Carboxyhemoglobin 0.7 Arterial Blood Methemoglobin 0.3 Blood Gas A-a O2 Differential 105.0 H Oxyhemoglobin Percent 93.1 Total Hemoglobin 16.8 Blood Gas Temperature 37.0 Blood Gas Respiration Rate 18.0 Blood Gas Actual Respiration Rate 25 Blood Gas Modality VENT - AC FiO2 30.0 Blood Gas Tidal Volume 600.0 Blood Gas Low PEEP Setting 5.0 Blood Gas Inspiratory Pressure 24.0 Blood Gas Notified Whom BR Blood Gas Notified Time 10/06/2016 4:55:55 AM Test 10/06/16 08:59 Bedside Glucose 151 Medications Medications Current Medications Ondansetron HCl (Zofran Inj) 4 mg Q6H PRN IV NAUSEA AND/OR VOMITING; Start at 06:00 Acetaminophen (Tylenol Liquid) 650 mg Q6H PRN PO PAIN LEVEL 1-3 OR FEVER Last administered on 09/30/16 08:32; Admin Dose 650 MG; Start 09/28/16 at 06:00 Hydromorphone HCl (Dilaudid) 0.5 mg Q4H PRN IV PAIN LEVEL 7-10 Last administered on 09/30/16 23:48; Admin Dose 0.5 MG; Start 09/28/16 at 06:00 Heparin Sodium (Porcine) (Heparin (5000 Units/0.5 ml)) 5,000 unit Q12 SC Last administered on 10/06/16 11:00; Admin Dose 5,000 UNIT; Start 09/28/16 at 09:00 Miscellaneous Information 1 ea NOTE XX ; Start 09/28/16 at 06:30 Famotidine (Pepcid Iv) 20 mg DAILY IV Last administered on 10/06/16 09:00; Admin Dose 20 MG; Start 09/28/16 at 09:00 Dextrose (D50w Syringe) 25 ml Q15M PRN IV Till BS 80 mg/dL or above x2 Last administered on 10/01/16 16:03; Admin Dose 25 ML; Start 09/28/16 at 08:30 Dextrose 50 ml 50 ml Q15M PRN IV Till BS 80 mg/dL or above x2; Start 09/28/16 at 08:30 Propofol 100 ml @ 2.31 mls/hr Q12H IV Last administered on 09/30/16 13:17; Admin Dose 6.93 MLS/HR; Start 09/28/16 at 11:30 Midazolam HCl 50 ml @ 1 mls/hr TITRATE IV Last administered on 10/03/16 09:16 ; Admin Dose 5 MLS/HR; Start 09/28/16 at 11:30 Fentanyl (Sublimaze) 100 ml @ 2.5 mls/hr TITRATE IV Last administered on 16:48; Admin Dose 2.5 MLS/HR; Start 09/29/16 at 09:00 Diagnostic Test (Pha) (Accu-Chek) 1 ea Q2H XX Last administered on 10/06/16 08 :59; Admin Dose 1 EA; Start 09/30/16 at 09:00 Acetaminophen (Tylenol Liquid) 650 mg Q4H PRN NGT PAIN AND OR ELEVATED TEMP Last administered on 10/06/16 03:56; Admin Dose 650 MG; Start 09/30/16 at 08:30 Prasugrel (Effient) 10 mg DAILY PO Last administered on 10/06/16 10:58; Admin Dose 10 MG; Start 10/02/16 at 09:00 Aspirin (Halfprin) 81 mg DAILY PO Last administered on 10/06/16 10:58; Admin Dose 81 MG; Start 10/02/16 at 09:00 Carvedilol 12.5 mg 12.5 mg BID NGT Last administered on 10/03/16 21:05; Admin Dose 12.5 MG; Start 10/02/16 at 21:00 Imipenem/ Cilastatin Sodium (Primaxin 250 Mg/ 100 ml (Pmx)) 100 ml @ 166.667 mls/hr Q12 IVPB Last administered on 10/06/16 10:58; Admin Dose 166.667 MLS/HR ; Start 10/05/16 at 21:00 Miscellaneous Information This patient osorio... PRN PRN XX WOUND CARE; Start 10/06 at 09:30 Sodium Chloride 250 ml @ 250 mls/hr Q1H ONCE IV Last administered on 12:00; Admin Dose 250 MLS/HR; Start 10/06/16 at 11:30; Stop 10/06/16 at 12: 29 Norepinephrine 16 mg/Dextrose 500 ml @ 1.87 mls/hr TITRATE IV ; Start 10/06/16 at 12:00 Phenylephrine HCl/ Dextrose (Brice-Syneph/D5W) 500 ml @ 75 mls/hr TITRATE IV ; Start 10/06/16 at 12:00 ANGELINA CASTREJON Oct 06, 2016 12:09
--- NOTE | 2016-10-06 12:55 | PN ---
DATE: SUBJECTIVE: The patient is still intubated. He is unable to communicate, history of status post re spiratory failure and currently I am following the patient from the abnormal liver function [facility]. His pulse is around 105, blood pressure 120/70. OBJECTIVE: CARDIOVASCULAR: Heart sounds well heard. RESPIRATORY: Normal breath sounds. Occasional rales heard bilaterally. ABDOMEN: Showed soft abdomen, no palpable masses, no tenderness, no distention. LABORATORY WORKUP: The liver enzymes have gone up, AST is 3613, ALT is 2508, alkaline phosphatase i s 335, bilirubin 0.0, albumin is 4.0, globulin 3.9, BUN 105, creatinine 11.4. The WBC count 15,300, hemoglobin 14.2. IMAGING: The ultrasound of the upper abdomen showed evidence of enlarged liver which probably repre sents fatty liver, small echogenic kidneys, gallbladder is normal. CLINICAL IMPRESSION: The patient has a shock liver with deteriorating liver enzymes. PLAN: At this time, continue supportive management. Continue dialysis. Continue intensive care lianna. Dictated By: RENAE HELMS/SERGO Conf#: [id number] DID#: [id number]
[2016-10-06] MEDS: MIDAZOLAM (DRIP) 50 mg/50 mL 50 ML IV SCH (22:25)
[2016-10-07] VITALS (105 sets, daily range): BP systolic 84–174; BP diastolic 59–96; PULSE 66–97; RESP 14–22
[2016-10-07] MEDS: ACCU-CHEK XX SCH ×24 (00:23→23:07)
[2016-10-07 04:46] LABS: ADD SCAN DIFF NO
[2016-10-07 05:06] LABS: HEMATOCRIT 39.3 % (42.0-52.0); HEMOGLOBIN 12.4 g/dl (14.0-18.0); MEAN CORPUSCULAR HEMOGLOBIN 28.8 pg (29.0-33.0); MEAN CORPUSCULAR HGB CONC 31.6 g/dl (32.0-37.0); MEAN CORPUSCULAR VOLUME 91.2 fl (82.0-101.0); MEAN PLATELET VOLUME 12.6 fl (7.4-10.4); PLATELET COUNT 281 10^3/UL (140-415); RED BLOOD COUNT 4.31 10^6/ul (4.70-6.10); RED CELL DISTRIBUTION WIDTH 17.6 % (11.5-14.5)
[2016-10-07 05:11] LABS: ALBUMIN 3.2 g/dl (3.3-4.9)
[2016-10-07 05:12] LABS: POTASSIUM 3.4 mmol/L (3.5-5.1)
[2016-10-07 05:14] LABS: ALBUMIN/GLOBULIN RATIO 0.88; CREATININE 9.66 mg/dl (0.61-1.24); TOTAL PROTEIN 6.8 g/dl (6.1-8.1)
[2016-10-07 05:15] LABS: MAGNESIUM 2.3 mg/dl (1.7-2.5); PHOSPHORUS 7.2 mg/dl (2.5-4.9)
[2016-10-07 05:36] LABS: CALCIUM 5.7 mg/dl (8.4-10.2)
[2016-10-07] MEDS: PROPOFOL 100 ML IV SCH ×2 (07:53→19:03)
[2016-10-07] MEDS ORDERED: CALCITRIOL 1 MCG INJ IV SCH (08:30)
[2016-10-07] MEDS ORDERED: POTASSIUM CHLORIDE 20 MEQ POWDER FOR ORAL SOLN NGT ONE (08:30)
--- NOTE | 2016-10-07 08:40 | CONS ---
Date/Time of Note Date/Time of Note DATE: 10/07/16 TIME: 08:36 Assessment/Plan Assessment/Plan Chief Complaint/Hosp Course 1. ESRD , he is on maintenance hemodialysis . I will order hemodialysis for tomorrow . He seems more hemodynamically stable today . 2. Type I DM 3. h/o flash pulmonary edema 4. HTN 5. CAD 6. respiratory failure on vent 7. fever , blood cultures no growth thus far .. 8. ALOC , he is sedated on Vent . 10. He had a fever yesterday. He has an elevated white blood count today . He did grow gram-positive cocci in 1 blood culture 2 days ago. He is on antibiotics. 11. hypocalcemia , will order calcium carbonate and IV calcitriol . Problems: Consultation Date/Type/Reason Admit Date/Time Sep 28, 2016 at 05:39 Initial Consult Date 09/28/16 Type of Consultation: ID 24 HR Interval Summary Free Text/Dictation He is in the ICU sedated , intubated , on a ventilator . Subjective hx not possible: pt non-verbal Exam/Review of Systems Vital Signs Vitals Vital Signs Date Time Temp Pulse Resp B/P Pulse Ox O2 Delivery O2 Flow Rate FiO2 10/07/16 07:00 78 18 123/71 100 Mechanical Ventilator 10/07/16 05:42 30 10/07/16 04:00 98.3 Intake and Output 10/06/16 10/06/16 10/07/16 15:00 23:00 07:00 Intake Total 1386.98 ml 787.23 ml 932.71 ml Output Total 1300 ml 175 ml 10 ml Balance 86.98 ml 612.23 ml 922.71 ml Exam Constitutional: non-verbal Respiratory: clear to auscultation, diminished breath sounds Cardiovascular: regular rate and rhythm Gastrointestinal: soft Musculoskeletal: nl extremities to inspection Results Result Diagram: 10/07/16 0345 10/07/16 0345 Results 24 hrs Laboratory Tests Test 10/06/16 08:59 10/06/16 12:18 10/06/16 13:40 10/06/16 14:02 Bedside Glucose 151 89 102 126 Test 10/06/16 15:24 10/06/16 16:36 10/06/16 18:20 10/06/16 19:19 Bedside Glucose 142 191 165 126 Test 10/06/16 20:20 10/06/16 21:04 10/06/16 22:18 10/06/16 23:07 Bedside Glucose 103 89 151 170 Test 10/07/16 00:23 10/07/16 01:15 10/07/16 02:07 10/07/16 03:01 Bedside Glucose 171 176 176 172 Test 10/07/16 03:45 10/07/16 05:07 10/07/16 06:05 10/07/16 06:56 White Blood Count 13.0 #H Red Blood Count 4.31 L Hemoglobin 12.4 L Hematocrit 39.3 L Mean Corpuscular Volume 91.2 Mean Corpuscular Hemoglobin 28.8 L Mean Corpuscular Hemoglobin Concent 31.6 L Red Cell Distribution Width 17.6 H Platelet Count 281 # Mean Platelet Volume 12.6 H Neutrophils % Lymphocytes % Monocytes % Neutrophils # Lymphocytes # Monocytes # Sodium Level 140 Potassium Level 3.4 #L Chloride Level 95 #L Carbon Dioxide Level 23 Anion Gap 25 H Blood Urea Nitrogen 88 H Creatinine 9.66 H Glucose Level 165 Calcium Level 5.7 *L Phosphorus Level 7.2 H Magnesium Level 2.3 Total Bilirubin 0.0 L Direct Bilirubin 0.00 Indirect Bilirubin 0.0 Aspartate Amino Transf (AST/SGOT) 2112 H Alanine Aminotransferase (ALT/SGPT) 2004 H Alkaline Phosphatase 295 H Total Protein 6.8 # Albumin 3.2 L Globulin 3.60 H Albumin/Globulin Ratio 0.88 Vancomycin Level Trough 15.7 Bedside Glucose 140 127 141 Test 10/07/16 08:03 Bedside Glucose 141 Medications Medications Current Medications Ondansetron HCl (Zofran Inj) 4 mg Q6H PRN IV NAUSEA AND/OR VOMITING; Start at 06:00 Acetaminophen (Tylenol Liquid) 650 mg Q6H PRN PO PAIN LEVEL 1-3 OR FEVER Last administered on 09/30/16 08:32; Admin Dose 650 MG; Start 09/28/16 at 06:00 Hydromorphone HCl (Dilaudid) 0.5 mg Q4H PRN IV PAIN LEVEL 7-10 Last administered on 09/30/16 23:48; Admin Dose 0.5 MG; Start 09/28/16 at 06:00 Heparin Sodium (Porcine) (Heparin (5000 Units/0.5 ml)) 5,000 unit Q12 SC Last administered on 10/06/16 20:23; Admin Dose 5,000 UNIT; Start 09/28/16 at 09:00 Miscellaneous Information 1 ea NOTE XX ; Start 09/28/16 at 06:30 Famotidine (Pepcid Iv) 20 mg DAILY IV Last administered on 10/06/16 09:00; Admin Dose 20 MG; Start 09/28/16 at 09:00 Dextrose (D50w Syringe) 25 ml Q15M PRN IV Till BS 80 mg/dL or above x2 Last administered on 10/01/16 16:03; Admin Dose 25 ML; Start 09/28/16 at 08:30 Dextrose 50 ml 50 ml Q15M PRN IV Till BS 80 mg/dL or above x2; Start 09/28/16 at 08:30 Propofol 100 ml @ 2.31 mls/hr Q12H IV Last administered on 10/07/16 07:53; Admin Dose 2.31 MLS/HR; Start 09/28/16 at 11:30 Midazolam HCl 50 ml @ 1 mls/hr TITRATE IV Last administered on 10/06/16 22:25 ; Admin Dose 1 MLS/HR; Start 09/28/16 at 11:30 Fentanyl (Sublimaze) 100 ml @ 2.5 mls/hr TITRATE IV Last administered on 16:48; Admin Dose 2.5 MLS/HR; Start 09/29/16 at 09:00 Acetaminophen (Tylenol Liquid) 650 mg Q4H PRN NGT PAIN AND OR ELEVATED TEMP Last administered on 10/06/16 23:16; Admin Dose 650 MG; Start 09/30/16 at 08:30 Prasugrel (Effient) 10 mg DAILY PO Last administered on 10/06/16 10:58; Admin Dose 10 MG; Start 10/02/16 at 09:00 Aspirin (Halfprin) 81 mg DAILY PO Last administered on 10/06/16 10:58; Admin Dose 81 MG; Start 10/02/16 at 09:00 Carvedilol 12.5 mg 12.5 mg BID NGT Last administered on 10/03/16 21:05; Admin Dose 12.5 MG; Start 10/02/16 at 21:00 Imipenem/ Cilastatin Sodium (Primaxin 250 Mg/ 100 ml (Pmx)) 100 ml @ 166.667 mls/hr Q12 IVPB Last administered on 10/06/16 20:53; Admin Dose 166.667 MLS/HR ; Start 10/05/16 at 21:00 Miscellaneous Information This patient osorio... PRN PRN XX WOUND CARE; Start 10/06 at 09:30 Norepinephrine 16 mg/Dextrose 500 ml @ 1.87 mls/hr TITRATE IV Last administered on 10/06/16 20:24; Admin Dose 28.12 MLS/HR; Start 10/06/16 at 12: 00 Phenylephrine HCl/ Dextrose (Brice-Syneph/D5W) 500 ml @ 75 mls/hr TITRATE IV ; Start 10/06/16 at 12:00 Diagnostic Test (Pha) 1 ea 1 ea Q1H XX Last administered on 10/07/16 08:04; Admin Dose 1 EA; Start 10/06/16 at 18:00 Vancomycin HCl (Vancocin) 250 ml @ 125 mls/hr Q96H IVPB ; Start 10/07/16 at 10: 00 Potassium Chloride (Potassium Chloride Pwd/Soln) 20 meq ONCE ONCE NGT ; Start 10/07/16 at 08:30; Stop 10/07/16 at 08:31; Status UNV Calcium Carbonate (Ca Carbonate) 1,250 mg BID NGT ; Start 10/07/16 at 09:00; Status UNV DONY HOWARD MD Oct 07, 2016 08:40
[2016-10-07] MEDS: PRASUGREL HYDROCHLORIDE 10 MG TABLET PO SCH (09:37)
[2016-10-07] MEDS: FAMOTIDINE 20 MG INJ IV SCH (09:37)
[2016-10-07] MEDS: ASPIRIN (EC) 81 MG TAB PO SCH (09:38)
[2016-10-07] MEDS: HEPARIN 5,000 UNIT/0.5 ML VIAL SC SCH ×2 (09:41→20:30)
[2016-10-07] MEDS: IMIPENEM-CILAST 250MG IV (PMX) 100 ML IVPB SCH ×2 (09:44→20:30)
--- NOTE | 2016-10-07 09:58 | CONS ---
Date/Time of Note Date/Time of Note DATE: 10/07/16 TIME: 09:54 Assessment/Plan Assessment/Plan Additional Assessment/Plan Ventilator settings; AC of 18, tidal volume 600, PEEP of 5, 30% FiO2. Patient is on Levophed at 22 mics per minute. Assessment recommendations; 1. Patient admitted for respiratory failure due to pulmonary edema likely from missing hemodialysis. 2. Sepsis. 3. Significant clinical and radiological improvement in chest x-ray. 4. Poor mental status, however there has been interval improvement as well patient was given a brief sedation vacation this morning he did exhibit improved mental status but had to be re-sedated again. 5. Improving leukocytosis. 6. End-stage renal disease on hemodialysis. Hold sedation for now. When the patient is off sedation he will be evaluated for possible weaning from ventilator. About 35 minutes of critical care time was spent evaluating the patient. Consultation Date/Type/Reason Admit Date/Time Sep 28, 2016 at 05:39 Initial Consult Date 09/28/16 Type of Consultation: Coronary/critical care 24 HR Interval Summary Free Text/Dictation Patient condition remains critical. Patient was given a sedation vacation yesterday however the patient did not meet weaning criteria for intubation. Had to be re-sedated because of mild agitation. General exam; middle-aged male, orally intubated, sedated. Currently in no distress. Exam/Review of Systems Vital Signs Vitals Vital Signs Date Time Temp Pulse Resp B/P Pulse Ox O2 Delivery O2 Flow Rate FiO2 10/07/16 07:00 78 18 123/71 100 Mechanical Ventilator 10/07/16 05:42 30 10/07/16 04:00 98.3 Intake and Output 10/06/16 10/06/16 10/07/16 15:00 23:00 07:00 Intake Total 1386.98 ml 787.23 ml 932.71 ml Output Total 1300 ml 175 ml 10 ml Balance 86.98 ml 612.23 ml 922.71 ml Exam HEENT exam; supple neck, no JVD. No lymphadenopathy. Midline trachea. No thyromegaly. Patient is orally intubated. There was a small bilaterally. Chest examination; clear to auscultation. No added sound. S1-S2 audible, no murmurs. Regular rhythm. Abdomen examination; soft, nondistended. No organomegaly. Bowel sounds audible. Extremity exam; no peripheral edema. LEAVE MANAGER examination; patient is sedated. Results Result Diagram: 10/07/16 0345 10/07/16 0345 Results 24 hrs Laboratory Tests Test 10/06/16 12:18 10/06/16 13:40 10/06/16 14:02 10/06/16 15:24 Bedside Glucose 89 102 126 142 Test 10/06/16 16:36 10/06/16 18:20 10/06/16 19:19 10/06/16 20:20 Bedside Glucose 191 165 126 103 Test 10/06/16 21:04 10/06/16 22:18 10/06/16 23:07 10/07/16 00:23 Bedside Glucose 89 151 170 171 Test 10/07/16 01:15 10/07/16 02:07 10/07/16 03:01 10/07/16 03:45 Bedside Glucose 176 176 172 White Blood Count 13.0 #H Red Blood Count 4.31 L Hemoglobin 12.4 L Hematocrit 39.3 L Mean Corpuscular Volume 91.2 Mean Corpuscular Hemoglobin 28.8 L Mean Corpuscular Hemoglobin Concent 31.6 L Red Cell Distribution Width 17.6 H Platelet Count 281 # Mean Platelet Volume 12.6 H Neutrophils % Lymphocytes % Monocytes % Neutrophils # Lymphocytes # Monocytes # Sodium Level 140 Potassium Level 3.4 #L Chloride Level 95 #L Carbon Dioxide Level 23 Anion Gap 25 H Blood Urea Nitrogen 88 H Creatinine 9.66 H Glucose Level 165 Calcium Level 5.7 *L Phosphorus Level 7.2 H Magnesium Level 2.3 Total Bilirubin 0.0 L Direct Bilirubin 0.00 Indirect Bilirubin 0.0 Aspartate Amino Transf (AST/SGOT) 2112 H Alanine Aminotransferase (ALT/SGPT) 2004 H Alkaline Phosphatase 295 H Total Protein 6.8 # Albumin 3.2 L Globulin 3.60 H Albumin/Globulin Ratio 0.88 Vancomycin Level Trough 15.7 Test 10/07/16 05:07 10/07/16 06:05 10/07/16 06:56 10/07/16 08:03 Bedside Glucose 140 127 141 141 Test 10/07/16 09:17 Bedside Glucose 171 Medications Medications Current Medications Ondansetron HCl (Zofran Inj) 4 mg Q6H PRN IV NAUSEA AND/OR VOMITING; Start at 06:00 Acetaminophen (Tylenol Liquid) 650 mg Q6H PRN PO PAIN LEVEL 1-3 OR FEVER Last administered on 09/30/16 08:32; Admin Dose 650 MG; Start 09/28/16 at 06:00 Hydromorphone HCl (Dilaudid) 0.5 mg Q4H PRN IV PAIN LEVEL 7-10 Last administered on 09/30/16 23:48; Admin Dose 0.5 MG; Start 09/28/16 at 06:00 Heparin Sodium (Porcine) (Heparin (5000 Units/0.5 ml)) 5,000 unit Q12 SC Last administered on 10/07/16 09:41; Admin Dose 5,000 UNIT; Start 09/28/16 at 09:00 Miscellaneous Information 1 ea NOTE XX ; Start 09/28/16 at 06:30 Famotidine (Pepcid Iv) 20 mg DAILY IV Last administered on 10/07/16 09:37; Admin Dose 20 MG; Start 09/28/16 at 09:00 Dextrose (D50w Syringe) 25 ml Q15M PRN IV Till BS 80 mg/dL or above x2 Last administered on 10/01/16 16:03; Admin Dose 25 ML; Start 09/28/16 at 08:30 Dextrose 50 ml 50 ml Q15M PRN IV Till BS 80 mg/dL or above x2; Start 09/28/16 at 08:30 Propofol 100 ml @ 2.31 mls/hr Q12H IV Last administered on 10/07/16 07:53; Admin Dose 2.31 MLS/HR; Start 09/28/16 at 11:30 Midazolam HCl 50 ml @ 1 mls/hr TITRATE IV Last administered on 10/06/16 22:25 ; Admin Dose 1 MLS/HR; Start 09/28/16 at 11:30 Fentanyl (Sublimaze) 100 ml @ 2.5 mls/hr TITRATE IV Last administered on 16:48; Admin Dose 2.5 MLS/HR; Start 09/29/16 at 09:00 Acetaminophen (Tylenol Liquid) 650 mg Q4H PRN NGT PAIN AND OR ELEVATED TEMP Last administered on 10/06/16 23:16; Admin Dose 650 MG; Start 09/30/16 at 08:30 Prasugrel (Effient) 10 mg DAILY PO Last administered on 10/07/16 09:37; Admin Dose 10 MG; Start 10/02/16 at 09:00 Aspirin (Halfprin) 81 mg DAILY PO Last administered on 10/07/16 09:38; Admin Dose 81 MG; Start 10/02/16 at 09:00 Carvedilol 12.5 mg 12.5 mg BID NGT Last administered on 10/03/16 21:05; Admin Dose 12.5 MG; Start 10/02/16 at 21:00 Imipenem/ Cilastatin Sodium (Primaxin 250 Mg/ 100 ml (Pmx)) 100 ml @ 166.667 mls/hr Q12 IVPB Last administered on 10/07/16 09:44; Admin Dose 166.667 MLS/HR ; Start 10/05/16 at 21:00 Miscellaneous Information This patient osorio... PRN PRN XX WOUND CARE; Start 10/06 at 09:30 Norepinephrine 16 mg/Dextrose 500 ml @ 1.87 mls/hr TITRATE IV Last administered on 10/07/16 09:52; Admin Dose 41.25 MLS/HR; Start 10/06/16 at 12: 00 Phenylephrine HCl/ Dextrose (Brice-Syneph/D5W) 500 ml @ 75 mls/hr TITRATE IV ; Start 10/06/16 at 12:00 Diagnostic Test (Pha) 1 ea 1 ea Q1H XX Last administered on 10/07/16 09:17; Admin Dose 1 EA; Start 10/06/16 at 18:00 Vancomycin HCl (Vancocin) 250 ml @ 125 mls/hr Q96H IVPB Last administered on 09:38; Admin Dose 125 MLS/HR; Start 10/07/16 at 10:00 Calcium Carbonate (Ca Carbonate) 1,250 mg BID NGT ; Start 10/07/16 at 10:30 ELTON FELIX Oct 07, 2016 09:58
[2016-10-07] MEDS ORDERED: VANCOMYCIN 1 GM in NS 250 ML IVPB SCH (10:00)
[2016-10-07] MEDS: CA CARBONATE (250 MG/ML) 5ML CUP NGT SCH ×2 (10:04→20:30)
[2016-10-07 10:18] LABS: LYMPHOCYTES # 2.2 10^3/ul (0.8-2.9); MONOCYTE # 0.7 10^3/ul (0.3-0.9); NEUTROPHIL # 9.6 10^3/ul (1.6-7.5)
[2016-10-07] MEDS: INSULIN HUMAN REGULAR 100 UNIT in SOD CHLORIDE 0.9% 99 ML IV SCH (14:21)
--- NOTE | 2016-10-07 14:31 | PN ---
Date/Time of Note Date/Time of Note DATE: 10/07/16 TIME: 14:25 Assessment/Plan VTE Prophylaxis VTE Prophylaxis Intervention: SCD's Lines/Catheters IV C[facility] Type [facility]from [facility] Peripheral IV Urinary Cath still in place: No Assessment/Plan Chief Complaint/Hosp Course ASSESSMENT AND PLAN: - Septic shock, continue pressors ICU care. - VRE bacteremia, start Zyvox, continue antibiotics per ID. That is post DC central line. - Acute respiratory failure, requiring oral intubation and ventilatory support secondary to pulmonary edema. Dr. Nunez is following in pulmonology consultation. Continue ventilator support. - End-stage renal disease, hemodialysis dependent. Dr. Hubbard is following the patient in nephrology consultation. Continue the hemodialysis per nephrology. - Diabetes mellitus type [address] Garay is following endocrinology consultation. Continue patient on insulin drip. The patient usually has an insulin pump, which is currently discontinued. - Peripheral arterial disease, status post vascular intervention. Continue Eliquis. - Anemia of chronic disease. Continue Epogen. - Coronary artery disease. Dr. Stephen is following in cardiology consultation. - Possible healthcare acquired pneumonia. Continue antibiotics per ID. Dr. Allison is following in ID consultation. - Possible sepsis secondary to pneumonia. Continue IV fluids and pressors for hemodynamic support, ICU care. - Transaminitis, Dr. Britt is following in gastroenterology consultation Continue heparin for deep venous thrombosis prophylaxis and Pepcid for peptic ulcer disease prophylaxis. Further recommendations based on clinical course. Plan of care discussed with Dr. Rosales. Problems: Subjective 24 Hr Interval Summary Free Text/Dictation Patient is continued on Levophed for hemodynamic support, on vent support, sedated. Exam/Review of Systems Vital Signs Vitals Vital Signs Date Time Temp Pulse Resp B/P Pulse Ox O2 Delivery O2 Flow Rate FiO2 10/07/16 12:00 77 10/07/16 11:20 18 100 30 10/07/16 10:45 136/82 Mechanical Ventilator 10/07/16 08:00 99.0 Intake and Output 10/06/16 10/06/16 10/07/16 15:00 23:00 07:00 Intake Total 1386.98 ml 787.23 ml 932.71 ml Output Total 1300 ml 175 ml 10 ml Balance 86.98 ml 612.23 ml 922.71 ml Exam GENERAL: Well-developed, well-nourished gentleman currently orally intubated on vent support, obtunded. HEENT: Head is atraumatic, normocephalic. Patient has a right eye prosthesis. Left eye pupil is equal, round, sluggishly reactive to light and accommodation. NECK: Supple, no cervical lymphadenopathy, no thyromegaly. CHEST: Lung sounds diminished at the bases. Scattered rhonchi bilaterally. Patient has a left chest Port-A-Cath. CARDIOVASCULAR: Normal S1, S2. No murmurs, gallops, clicks, rubs noted. ABDOMEN: Round, soft, nondistended, nontender. Bowel sounds present. EXTREMITIES: There is mild edema. There is no clubbing, cyanosis. Left upper extremity with AV graft. SKIN: No rash, petechiae noted. NEUROLOGIC: Patient is obtunded. Results Result Diagram: 10/07/16 0345 10/07/16 0345 Results 24 hrs Laboratory Tests Test 10/06/16 15:24 10/06/16 16:36 10/06/16 18:20 10/06/16 19:19 Bedside Glucose 142 191 165 126 Test 10/06/16 20:20 10/06/16 21:04 10/06/16 22:18 10/06/16 23:07 Bedside Glucose 103 89 151 170 Test 10/07/16 00:23 10/07/16 01:15 10/07/16 02:07 10/07/16 03:01 Bedside Glucose 171 176 176 172 Test 10/07/16 03:45 10/07/16 05:07 10/07/16 06:05 10/07/16 06:56 White Blood Count 13.0 #H Red Blood Count 4.31 L Hemoglobin 12.4 L Hematocrit 39.3 L Mean Corpuscular Volume 91.2 Mean Corpuscular Hemoglobin 28.8 L Mean Corpuscular Hemoglobin Concent 31.6 L Red Cell Distribution Width 17.6 H Platelet Count 281 # Mean Platelet Volume 12.6 H Neutrophils % 74.0 Band Neutrophils % 4.0 Lymphocytes % 17.0 Monocytes % 5.0 Nucleated Red Blood Cells % 1.0 H Neutrophils # 9.6 H Lymphocytes # 2.2 Monocytes # 0.7 Sodium Level 140 Potassium Level 3.4 #L Chloride Level 95 #L Carbon Dioxide Level 23 Anion Gap 25 H Blood Urea Nitrogen 88 H Creatinine 9.66 H Glucose Level 165 Calcium Level 5.7 *L Phosphorus Level 7.2 H Magnesium Level 2.3 Total Bilirubin 0.0 L Direct Bilirubin 0.00 Indirect Bilirubin 0.0 Aspartate Amino Transf (AST/SGOT) 2112 H Alanine Aminotransferase (ALT/SGPT) 2004 H Alkaline Phosphatase 295 H Total Protein 6.8 # Albumin 3.2 L Globulin 3.60 H Albumin/Globulin Ratio 0.88 Vancomycin Level Trough 15.7 Bedside Glucose 140 127 141 Test 10/07/16 08:03 10/07/16 09:17 10/07/16 10:09 10/07/16 11:06 Bedside Glucose 141 171 151 136 Test 10/07/16 13:08 Bedside Glucose 134 Medications Medications Current Medications Ondansetron HCl (Zofran Inj) 4 mg Q6H PRN IV NAUSEA AND/OR VOMITING; Start at 06:00 Acetaminophen (Tylenol Liquid) 650 mg Q6H PRN PO PAIN LEVEL 1-3 OR FEVER Last administered on 09/30/16 08:32; Admin Dose 650 MG; Start 09/28/16 at 06:00 Hydromorphone HCl (Dilaudid) 0.5 mg Q4H PRN IV PAIN LEVEL 7-10 Last administered on 09/30/16 23:48; Admin Dose 0.5 MG; Start 09/28/16 at 06:00 Heparin Sodium (Porcine) (Heparin (5000 Units/0.5 ml)) 5,000 unit Q12 SC Last administered on 10/07/16 09:41; Admin Dose 5,000 UNIT; Start 09/28/16 at 09:00 Miscellaneous Information 1 ea NOTE XX ; Start 09/28/16 at 06:30 Famotidine (Pepcid Iv) 20 mg DAILY IV Last administered on 10/07/16 09:37; Admin Dose 20 MG; Start 09/28/16 at 09:00 Dextrose (D50w Syringe) 25 ml Q15M PRN IV Till BS 80 mg/dL or above x2 Last administered on 10/01/16 16:03; Admin Dose 25 ML; Start 09/28/16 at 08:30 Dextrose 50 ml 50 ml Q15M PRN IV Till BS 80 mg/dL or above x2; Start 09/28/16 at 08:30 Propofol 100 ml @ 2.31 mls/hr Q12H IV Last administered on 10/07/16 07:53; Admin Dose 2.31 MLS/HR; Start 09/28/16 at 11:30 Midazolam HCl 50 ml @ 1 mls/hr TITRATE IV Last administered on 10/06/16 22:25 ; Admin Dose 1 MLS/HR; Start 09/28/16 at 11:30 Fentanyl (Sublimaze) 100 ml @ 2.5 mls/hr TITRATE IV Last administered on 16:48; Admin Dose 2.5 MLS/HR; Start 09/29/16 at 09:00 Acetaminophen (Tylenol Liquid) 650 mg Q4H PRN NGT PAIN AND OR ELEVATED TEMP Last administered on 10/06/16 23:16; Admin Dose 650 MG; Start 09/30/16 at 08:30 Prasugrel (Effient) 10 mg DAILY PO Last administered on 10/07/16 09:37; Admin Dose 10 MG; Start 10/02/16 at 09:00 Aspirin (Halfprin) 81 mg DAILY PO Last administered on 10/07/16 09:38; Admin Dose 81 MG; Start 10/02/16 at 09:00 Carvedilol 12.5 mg 12.5 mg BID NGT Last administered on 10/03/16 21:05; Admin Dose 12.5 MG; Start 10/02/16 at 21:00 Imipenem/ Cilastatin Sodium (Primaxin 250 Mg/ 100 ml (Pmx)) 100 ml @ 166.667 mls/hr Q12 IVPB Last administered on 10/07/16 09:44; Admin Dose 166.667 MLS/HR ; Start 10/05/16 at 21:00 Miscellaneous Information This patient osorio... PRN PRN XX WOUND CARE; Start 10/06 at 09:30 Norepinephrine 16 mg/Dextrose 500 ml @ 1.87 mls/hr TITRATE IV Last administered on 10/07/16 09:52; Admin Dose 41.25 MLS/HR; Start 10/06/16 at 12: 00 Phenylephrine HCl/ Dextrose (Brice-Syneph/D5W) 500 ml @ 75 mls/hr TITRATE IV ; Start 10/06/16 at 12:00 Diagnostic Test (Pha) 1 ea 1 ea Q1H XX Last administered on 10/07/16 13:07; Admin Dose 1 EA; Start 10/06/16 at 18:00 Vancomycin HCl (Vancocin) 250 ml @ 125 mls/hr Q96H IVPB Last administered on 09:38; Admin Dose 125 MLS/HR; Start 10/07/16 at 10:00 Calcium Carbonate (Ca Carbonate) 1,250 mg BID NGT Last administered on 10:04; Admin Dose 1,250 MG; Start 10/07/16 at 10:30 ANGELINA CASTREJON Oct 07, 2016 14:31
--- NOTE | 2016-10-07 15:05 | CONS ---
Date/Time of Note Date/Time of Note DATE: 10/07/16 TIME: 14:59 Assessment/Plan Assessment/Plan Chief Complaint/Hosp Course ID PROGRESS NOTE TOTAL ABX DAY # 11 => Vanco IV + Primaxin #3 s/p Vancomycin. 2. Cefepime-> DC 10/04/16 am 24H INTERVAL SUMMARY * BCx (+)VRE Fevers down today, WBC down * BCx 10/04/16 (+)1/2 bottles ? LIne Sepsis ? * BLOOD CULTURE Final Organism 1 VANCO RESISTANT ENTEROCOCCUS . 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 RX --------- --- AMPICILLIN >=32 R GENTAMICIN 120 S LINEZOLID 2 S PENICILLIN-G >=64 R QUINUPRISTIN/DALFOPRISTIN 0.5 S STREPTOMYCIN 300 R VANCOMYCIN >=32 R PHYSICAL EXAMINATION: GENERAL: VSS, NAD, sedated on the Vent HEENT: ETT/NGT secure NECK: Supple, trach-> midline CHEST: Equal chest rise bilaterally, without dyspnea on observation HEART: Pulse RRR ABDOMEN: Soft, benign EXTREMITIES: Warm SKIN: Warm, dry (+)Multiple Tattoos ID ASSESSMENT: 51 yo M admitted with: 1. Recurrent sepsis w/ FEVER > 103 10/04, leukocytosis -> Failed ABX de- escalation attempt SAT 10/04 * 10/04/16 BCx (+) 1/2 => LIne Sepsis ? * Status post shock on admission w/all admission cultures were negative -> ABX DC'd 10/04/16 am with recurrent sepsis within 12H 2. Respiratory failure, secondary to fluid overload, possibly aspiration event. 3. COPD - tobacco user 4. End-stage renal disease, hemodialysis dependent-> LUEXT AVF 5. History of coronary artery disease. 6. Diabetes. (-)MRSA Nares INVASIVES: * ETT, NGT, L-FEM TLC, FC, left chest Port-A-Cath. ABX ALLERGIES: MACROLIDES, ERYTHROMYCIN CURRENT ABX: TOTAL ABX DAY # 11 => Primaxin #3 + Zyvox dc Vanco 10/06 s/p Vancomycin. 2. Cefepime-> DC 10/04/16 am ID RECOMMENDATIONS: 1. DC Femoral line-> Cx tip 10/06 2. DC Vanco IV -> Start Zyvox for VRE coverage (VRE is resistant to Ampicillin) 3. If he spike temp again -> draw BCx from the Port-A-Cath 4. Repeat sputum cx -- if negative will DC Primaxin . . . . . . Problems: Consultation Date/Type/Reason Admit Date/Time Sep 28, 2016 at 05:39 Initial Consult Date 10/01/16 Type of Consultation: ID Exam/Review of Systems Vital Signs Vitals Vital Signs Date Time Temp Pulse Resp B/P Pulse Ox O2 Delivery O2 Flow Rate FiO2 10/07/16 12:00 77 10/07/16 11:20 18 100 30 10/07/16 10:45 136/82 Mechanical Ventilator 10/07/16 08:00 99.0 Intake and Output 10/06/16 10/06/16 10/07/16 15:00 23:00 07:00 Intake Total 1386.98 ml 787.23 ml 932.71 ml Output Total 1300 ml 175 ml 10 ml Balance 86.98 ml 612.23 ml 922.71 ml Results Result Diagram: 10/07/16 0345 10/07/16 0345 Results 24 hrs Laboratory Tests Test 10/06/16 15:24 10/06/16 16:36 10/06/16 18:20 10/06/16 19:19 Bedside Glucose 142 191 165 126 Test 10/06/16 20:20 10/06/16 21:04 10/06/16 22:18 10/06/16 23:07 Bedside Glucose 103 89 151 170 Test 10/07/16 00:23 10/07/16 01:15 10/07/16 02:07 10/07/16 03:01 Bedside Glucose 171 176 176 172 Test 10/07/16 03:45 10/07/16 05:07 10/07/16 06:05 10/07/16 06:56 White Blood Count 13.0 #H Red Blood Count 4.31 L Hemoglobin 12.4 L Hematocrit 39.3 L Mean Corpuscular Volume 91.2 Mean Corpuscular Hemoglobin 28.8 L Mean Corpuscular Hemoglobin Concent 31.6 L Red Cell Distribution Width 17.6 H Platelet Count 281 # Mean Platelet Volume 12.6 H Neutrophils % 74.0 Band Neutrophils % 4.0 Lymphocytes % 17.0 Monocytes % 5.0 Nucleated Red Blood Cells % 1.0 H Neutrophils # 9.6 H Lymphocytes # 2.2 Monocytes # 0.7 Sodium Level 140 Potassium Level 3.4 #L Chloride Level 95 #L Carbon Dioxide Level 23 Anion Gap 25 H Blood Urea Nitrogen 88 H Creatinine 9.66 H Glucose Level 165 Calcium Level 5.7 *L Phosphorus Level 7.2 H Magnesium Level 2.3 Total Bilirubin 0.0 L Direct Bilirubin 0.00 Indirect Bilirubin 0.0 Aspartate Amino Transf (AST/SGOT) 2112 H Alanine Aminotransferase (ALT/SGPT) 2004 H Alkaline Phosphatase 295 H Total Protein 6.8 # Albumin 3.2 L Globulin 3.60 H Albumin/Globulin Ratio 0.88 Vancomycin Level Trough 15.7 Bedside Glucose 140 127 141 Test 10/07/16 08:03 10/07/16 09:17 10/07/16 10:09 10/07/16 11:06 Bedside Glucose 141 171 151 136 Test 10/07/16 13:08 Bedside Glucose 134 Medications Medications Current Medications Ondansetron HCl (Zofran Inj) 4 mg Q6H PRN IV NAUSEA AND/OR VOMITING; Start at 06:00 Acetaminophen (Tylenol Liquid) 650 mg Q6H PRN PO PAIN LEVEL 1-3 OR FEVER Last administered on 09/30/16 08:32; Admin Dose 650 MG; Start 09/28/16 at 06:00 Hydromorphone HCl (Dilaudid) 0.5 mg Q4H PRN IV PAIN LEVEL 7-10 Last administered on 09/30/16 23:48; Admin Dose 0.5 MG; Start 09/28/16 at 06:00 Heparin Sodium (Porcine) (Heparin (5000 Units/0.5 ml)) 5,000 unit Q12 SC Last administered on 10/07/16 09:41; Admin Dose 5,000 UNIT; Start 09/28/16 at 09:00 Miscellaneous Information 1 ea NOTE XX ; Start 09/28/16 at 06:30 Famotidine (Pepcid Iv) 20 mg DAILY IV Last administered on 10/07/16 09:37; Admin Dose 20 MG; Start 09/28/16 at 09:00 Dextrose (D50w Syringe) 25 ml Q15M PRN IV Till BS 80 mg/dL or above x2 Last administered on 10/01/16 16:03; Admin Dose 25 ML; Start 09/28/16 at 08:30 Dextrose 50 ml 50 ml Q15M PRN IV Till BS 80 mg/dL or above x2; Start 09/28/16 at 08:30 Propofol 100 ml @ 2.31 mls/hr Q12H IV Last administered on 10/07/16 07:53; Admin Dose 2.31 MLS/HR; Start 09/28/16 at 11:30 Midazolam HCl 50 ml @ 1 mls/hr TITRATE IV Last administered on 10/06/16 22:25 ; Admin Dose 1 MLS/HR; Start 09/28/16 at 11:30 Fentanyl (Sublimaze) 100 ml @ 2.5 mls/hr TITRATE IV Last administered on 16:48; Admin Dose 2.5 MLS/HR; Start 09/29/16 at 09:00 Acetaminophen (Tylenol Liquid) 650 mg Q4H PRN NGT PAIN AND OR ELEVATED TEMP Last administered on 10/06/16 23:16; Admin Dose 650 MG; Start 09/30/16 at 08:30 Prasugrel (Effient) 10 mg DAILY PO Last administered on 10/07/16 09:37; Admin Dose 10 MG; Start 10/02/16 at 09:00 Aspirin (Halfprin) 81 mg DAILY PO Last administered on 10/07/16 09:38; Admin Dose 81 MG; Start 10/02/16 at 09:00 Carvedilol 12.5 mg 12.5 mg BID NGT Last administered on 10/03/16 21:05; Admin Dose 12.5 MG; Start 10/02/16 at 21:00 Imipenem/ Cilastatin Sodium (Primaxin 250 Mg/ 100 ml (Pmx)) 100 ml @ 166.667 mls/hr Q12 IVPB Last administered on 10/07/16 09:44; Admin Dose 166.667 MLS/HR ; Start 10/05/16 at 21:00 Miscellaneous Information This patient osorio... PRN PRN XX WOUND CARE; Start 10/06 at 09:30 Norepinephrine 16 mg/Dextrose 500 ml @ 1.87 mls/hr TITRATE IV Last administered on 10/07/16 09:52; Admin Dose 41.25 MLS/HR; Start 10/06/16 at 12: 00 Phenylephrine HCl/ Dextrose (Brice-Syneph/D5W) 500 ml @ 75 mls/hr TITRATE IV ; Start 10/06/16 at 12:00 Diagnostic Test (Pha) (Accu-Chek) 1 ea Q1H XX Last administered on 10/07/16 13 :07; Admin Dose 1 EA; Start 10/06/16 at 18:00 Calcium Carbonate 1250 mg 1,250 mg BID NGT Last administered on 10/07/16 10:04 ; Admin Dose 1,250 MG; Start 10/07/16 at 10:30 Linezolid (Zyvox 600mg/D5W (Pmx)) 300 ml @ 300 mls/hr Q12 IVPB ; Start at 21:00 MISA CROFT NP Oct 07, 2016 15:05
--- NOTE | 2016-10-07 18:26 | CONS ---
Date/Time of Note Date/Time of Note DATE: 10/07/16 TIME: 18:26 Consult Date/Type/Reason Admit Date/Time Sep 28, 2016 at 05:39 Initial Consult Date 10/01/16 Type of Consultation: Cardiac and Vascular Int Objective Vital Signs Date Time Temp Pulse Resp B/P Pulse Ox O2 Delivery O2 Flow Rate FiO2 10/07/16 16:00 68 10/07/16 15:45 18 106/67 100 Mechanical Ventilator 10/07/16 12:00 99.1 10/07/16 11:20 30 Intake and Output 10/06/16 10/06/16 10/07/16 15:00 23:00 07:00 Intake Total 1386.98 ml 787.23 ml 932.71 ml Output Total 1300 ml 175 ml 10 ml Balance 86.98 ml 612.23 ml 922.71 ml Results/Medications Result Diagram: 10/07/16 0345 10/07/16 0345 Results 24 hrs Laboratory Tests Test 10/06/16 19:19 10/06/16 20:20 10/06/16 21:04 10/06/16 22:18 Bedside Glucose 126 103 89 151 Test 10/06/16 23:07 10/07/16 00:23 10/07/16 01:15 10/07/16 02:07 Bedside Glucose 170 171 176 176 Test 10/07/16 03:01 10/07/16 03:45 10/07/16 05:07 10/07/16 06:05 Bedside Glucose 172 140 127 White Blood Count 13.0 #H Red Blood Count 4.31 L Hemoglobin 12.4 L Hematocrit 39.3 L Mean Corpuscular Volume 91.2 Mean Corpuscular Hemoglobin 28.8 L Mean Corpuscular Hemoglobin Concent 31.6 L Red Cell Distribution Width 17.6 H Platelet Count 281 # Mean Platelet Volume 12.6 H Neutrophils % 74.0 Band Neutrophils % 4.0 Lymphocytes % 17.0 Monocytes % 5.0 Nucleated Red Blood Cells % 1.0 H Neutrophils # 9.6 H Lymphocytes # 2.2 Monocytes # 0.7 Sodium Level 140 Potassium Level 3.4 #L Chloride Level 95 #L Carbon Dioxide Level 23 Anion Gap 25 H Blood Urea Nitrogen 88 H Creatinine 9.66 H Glucose Level 165 Calcium Level 5.7 *L Phosphorus Level 7.2 H Magnesium Level 2.3 Total Bilirubin 0.0 L Direct Bilirubin 0.00 Indirect Bilirubin 0.0 Aspartate Amino Transf (AST/SGOT) 2112 H Alanine Aminotransferase (ALT/SGPT) 2004 H Alkaline Phosphatase 295 H Total Protein 6.8 # Albumin 3.2 L Globulin 3.60 H Albumin/Globulin Ratio 0.88 Vancomycin Level Trough 15.7 Test 10/07/16 06:56 10/07/16 08:03 10/07/16 09:17 10/07/16 10:09 Bedside Glucose 141 141 171 151 Test 10/07/16 11:06 10/07/16 13:08 10/07/16 15:07 10/07/16 17:24 Bedside Glucose 136 134 131 151 Medications Current Medications Ondansetron HCl (Zofran Inj) 4 mg Q6H PRN IV NAUSEA AND/OR VOMITING; Start at 06:00 Acetaminophen (Tylenol Liquid) 650 mg Q6H PRN PO PAIN LEVEL 1-3 OR FEVER Last administered on 09/30/16 08:32; Admin Dose 650 MG; Start 09/28/16 at 06:00 Hydromorphone HCl (Dilaudid) 0.5 mg Q4H PRN IV PAIN LEVEL 7-10 Last administered on 09/30/16 23:48; Admin Dose 0.5 MG; Start 09/28/16 at 06:00 Heparin Sodium (Porcine) (Heparin (5000 Units/0.5 ml)) 5,000 unit Q12 SC Last administered on 10/07/16 09:41; Admin Dose 5,000 UNIT; Start 09/28/16 at 09:00 Miscellaneous Information 1 ea NOTE XX ; Start 09/28/16 at 06:30 Famotidine (Pepcid Iv) 20 mg DAILY IV Last administered on 10/07/16 09:37; Admin Dose 20 MG; Start 09/28/16 at 09:00 Dextrose (D50w Syringe) 25 ml Q15M PRN IV Till BS 80 mg/dL or above x2 Last administered on 10/01/16 16:03; Admin Dose 25 ML; Start 09/28/16 at 08:30 Dextrose 50 ml 50 ml Q15M PRN IV Till BS 80 mg/dL or above x2; Start 09/28/16 at 08:30 Propofol 100 ml @ 2.31 mls/hr Q12H IV Last administered on 10/07/16 07:53; Admin Dose 2.31 MLS/HR; Start 09/28/16 at 11:30 Midazolam HCl 50 ml @ 1 mls/hr TITRATE IV Last administered on 10/06/16 22:25 ; Admin Dose 1 MLS/HR; Start 09/28/16 at 11:30 Fentanyl (Sublimaze) 100 ml @ 2.5 mls/hr TITRATE IV Last administered on 16:48; Admin Dose 2.5 MLS/HR; Start 09/29/16 at 09:00 Acetaminophen (Tylenol Liquid) 650 mg Q4H PRN NGT PAIN AND OR ELEVATED TEMP Last administered on 10/06/16 23:16; Admin Dose 650 MG; Start 09/30/16 at 08:30 Prasugrel (Effient) 10 mg DAILY PO Last administered on 10/07/16 09:37; Admin Dose 10 MG; Start 10/02/16 at 09:00 Aspirin (Halfprin) 81 mg DAILY PO Last administered on 10/07/16 09:38; Admin Dose 81 MG; Start 10/02/16 at 09:00 Carvedilol 12.5 mg 12.5 mg BID NGT Last administered on 10/03/16 21:05; Admin Dose 12.5 MG; Start 10/02/16 at 21:00 Imipenem/ Cilastatin Sodium (Primaxin 250 Mg/ 100 ml (Pmx)) 100 ml @ 166.667 mls/hr Q12 IVPB Last administered on 10/07/16 09:44; Admin Dose 166.667 MLS/HR ; Start 10/05/16 at 21:00 Miscellaneous Information This patient osorio... PRN PRN XX WOUND CARE; Start 10/06 at 09:30 Norepinephrine 16 mg/Dextrose 500 ml @ 1.87 mls/hr TITRATE IV Last administered on 10/07/16 09:52; Admin Dose 41.25 MLS/HR; Start 10/06/16 at 12: 00 Phenylephrine HCl/ Dextrose (Brice-Syneph/D5W) 500 ml @ 75 mls/hr TITRATE IV ; Start 10/06/16 at 12:00 Diagnostic Test (Pha) (Accu-Chek) 1 ea Q1H XX Last administered on 10/07/16 17 :25; Admin Dose 1 EA; Start 10/06/16 at 18:00 Calcium Carbonate 1250 mg 1,250 mg BID NGT Last administered on 10/07/16 10:04 ; Admin Dose 1,250 MG; Start 10/07/16 at 10:30 Linezolid (Zyvox 600mg/D5W (Pmx)) 300 ml @ 300 mls/hr Q12 IVPB ; Start at 21:00 Assessment/Plan Chief Complaint/Hosp Course Patient is know pt to me, he has CAD with s/p PCI of 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 mild elevated trop and non ischemic EKG. Problems: Additional Assessment/Plan Still intubated Respiratory failure due to missed HD Getting HD stable Weaning per Pulm 2D echo CYNDIE GARCIA MD Oct 07, 2016 18:26
[2016-10-07] MEDS: LINEZOLID 600 MG/D5W (PMX) 300 ML IVPB SCH (21:24)
[2016-10-08] VITALS (101 sets, daily range): BP systolic 92–161; BP diastolic 59–88; PULSE 63–96; RESP 0–46
[2016-10-08] MEDS: ACCU-CHEK XX SCH ×24 (00:24→23:00)
--- NOTE | 2016-10-08 02:26 | PN ---
DATE: SUBJECTIVE: The patient is unable to give me any history. OBJECTIVE: The patient is in intensive care unit. He is continuously intubated. VITAL SIGNS: Pulse is around 80, blood pressure is 120/76. He still is on a small dose of Levophed . He is intubated. LUNGS: Occasional rales bilaterally. HEART: Sounds well heard. ABDOMEN: Soft. No tenderness, no distention. LABORATORY WORKUP: WBC count is 13,000 with neutrophils of 74, bands 4, hemoglobin 12.4. The AST i s 2112, ALT is 2004, alkaline phosphatase 295, bilirubin 0.0, calcium 5.7. Albumin is 3.2. ASSESSMENT: The abnormal liver function I still suspect is due to shock liver. Patient had several episodes of hypotension. No biliary tract disease. Doubt drug induced viral hepatitis. PLAN: Continue to observe the patient closely, avoid hepatotoxic drugs. I will be happy to follow this patient with you. Dictated By: RENAE HELMS/SERGO Conf#: [id number] DID#: [id number]
[2016-10-08] MEDS: PROPOFOL 100 ML IV SCH ×3 (02:46→23:00)
[2016-10-08 05:31] LABS: ADD SCAN DIFF NO
[2016-10-08 05:37] LABS: BASOPHIL # 0.1 10^3/ul (0.0-0.1); BASOPHILS % 1.2 % (0.0-2.0); EOSINOPHILS # 0.4 10^3/ul (0.0-0.5); EOSINOPHILS % 3.8 % (0.0-7.0); HEMATOCRIT 36.3 % (42.0-52.0); HEMOGLOBIN 11.4 g/dl (14.0-18.0); LYMPHOCYTES # 1.2 10^3/ul (0.8-2.9); LYMPHOCYTES % 12.8 % (15.0-51.0); MEAN CORPUSCULAR HEMOGLOBIN 28.5 pg (29.0-33.0); MEAN CORPUSCULAR HGB CONC 31.4 g/dl (32.0-37.0); MEAN CORPUSCULAR VOLUME 90.8 fl (82.0-101.0); MEAN PLATELET VOLUME 12.6 fl (7.4-10.4); MONOCYTE # 0.9 10^3/ul (0.3-0.9); MONOCYTES % 9.4 % (0.0-11.0); NEUTROPHIL # 6.8 10^3/ul (1.6-7.5); NEUTROPHILS % 72.3 % (39.0-77.0); NUCLEATED RED BLOOD CELLS # 0.1 10^3/ul (0.0-0.0); NUCLEATED RED BLOOD CELLS% 1.1 /100WBC (0.0-0.0); PLATELET COUNT 264 10^3/UL (140-415); RED CELL DISTRIBUTION WIDTH 18.1 % (11.5-14.5); WHITE BLOOD COUNT 9.4 10^3/ul (4.8-10.8)
[2016-10-08 05:58] LABS: CREATININE 10.08 mg/dl (0.61-1.24); POTASSIUM 3.9 mmol/L (3.5-5.1)
[2016-10-08 06:02] LABS: CALCIUM 5.6 mg/dl (8.4-10.2)
[2016-10-08] MEDS: CA CARBONATE (250 MG/ML) 5ML CUP NGT SCH ×2 (08:29→23:26)
[2016-10-08] MEDS: FAMOTIDINE 20 MG INJ IV SCH (08:29)
[2016-10-08] MEDS: IMIPENEM-CILAST 250MG IV (PMX) 100 ML IVPB SCH ×2 (08:30→21:01)
[2016-10-08] MEDS: HEPARIN 5,000 UNIT/0.5 ML VIAL SC SCH ×2 (08:33→21:03)
[2016-10-08] MEDS: ASPIRIN 81 MG TAB NGT SCH (09:14)
[2016-10-08] MEDS: LINEZOLID 600 MG/D5W (PMX) 300 ML IVPB SCH ×2 (09:14→21:01)
[2016-10-08] MEDS: PRASUGREL HYDROCHLORIDE 10 MG TABLET PO SCH (10:00)
--- NOTE | 2016-10-08 11:18 | CONS ---
Date/Time of Note Date/Time of Note DATE: 10/08/16 TIME: 11:15 Assessment/Plan Assessment/Plan Additional Assessment/Plan Ventilator settings; AC of 18, tidal volume 600, PEEP of 5, 30% FiO2. Patient is on propofol at 24 mics per kilogram per minute, Levophed at 9 mics per minute. Assessment recommendations; next 1. Patient admitted for respiratory failure due to number pulmonary edema. With marked radiological improvement. 2. Significant improvement in mental status. 3. Mild hypotension, currently on tapering dose of Levophed. 4. Chronic renal failure, on hemodialysis. 5. Difficult to rule out some element of aspiration pneumonia, patient currently on adequate antibiotic coverage. After hemodialysis I would recommend stopping sedation, when the patient is off sedation he will be evaluated for possible weaning from ventilator. Meanwhile continue current supportive care. 35 minutes of critical care time was spent evaluating the patient. Consultation Date/Type/Reason Admit Date/Time Sep 28, 2016 at 05:39 Initial Consult Date 09/28/16 Type of Consultation: Pulmonary/critical care 24 HR Interval Summary Free Text/Dictation Patient condition remains critical but patient is improving gradually. He was given a sedation vacation yesterday in an attempt to wean him from ventilator however the patient did not meet criteria and had to be re-sedated. Currently getting hemodialysis at bedside. General exam; middle-aged male, orally intubated, sedated. Prior to be re- sedated, the patient did exhibit excellent mental status. Exam/Review of Systems Vital Signs Vitals Vital Signs Date Time Temp Pulse Resp B/P Pulse Ox O2 Delivery O2 Flow Rate FiO2 10/08/16 10:55 86 10/08/16 10:00 31 112/72 100 Mechanical Ventilator 10/08/16 09:35 30 10/08/16 08:00 98.4 Intake and Output 10/07/16 10/07/16 10/08/16 15:00 23:00 07:00 Intake Total 1048.40 ml 1334.85 ml 915.456 ml Output Total 0 ml 220 ml 200 ml Balance 1048.40 ml 1114.85 ml 715.456 ml Exam HEENT examination; supple neck, no JVD. No lymphadenopathy. Midline trachea. No thyromegaly. Patient has a right eye prosthesis. Has multiple carious teeth. Orally intubated. Chest examination; diminished but clear breath sounds. S1-S2 audible, no murmurs. Regular rhythm. Abdomen examination; soft, no organomegaly. No distention. Bowel sounds audible. Extremity examination; no peripheral edema. Pulses 1+ bilaterally. SURVEILLANCE SPECIALIST examination; patient currently is sedated. Results Result Diagram: 10/08/16 0340 10/08/16 0340 Results 24 hrs Laboratory Tests Test 10/07/16 13:08 10/07/16 15:07 10/07/16 17:24 10/07/16 18:57 Bedside Glucose 134 131 151 156 Test 10/07/16 20:13 10/07/16 21:06 10/07/16 22:29 10/07/16 23:07 Bedside Glucose 137 179 177 184 Test 10/08/16 00:21 10/08/16 01:07 10/08/16 03:02 10/08/16 03:40 Bedside Glucose 151 172 155 White Blood Count 9.4 # Red Blood Count 4.00 L Hemoglobin 11.4 L Hematocrit 36.3 L Mean Corpuscular Volume 90.8 Mean Corpuscular Hemoglobin 28.5 L Mean Corpuscular Hemoglobin Concent 31.4 L Red Cell Distribution Width 18.1 H Platelet Count 264 Mean Platelet Volume 12.6 H Neutrophils % 72.3 Lymphocytes % 12.8 L Monocytes % 9.4 Eosinophils % 3.8 Basophils % 1.2 Nucleated Red Blood Cells % 1.1 H Neutrophils # 6.8 Lymphocytes # 1.2 Monocytes # 0.9 Eosinophils # 0.4 Basophils # 0.1 Nucleated Red Blood Cells # 0.1 H Sodium Level 133 L Potassium Level 3.9 Chloride Level 94 L Carbon Dioxide Level 21 Anion Gap 22 H Blood Urea Nitrogen 103 H Creatinine 10.08 H Glucose Level 141 Calcium Level 5.6 *L Test 10/08/16 05:10 10/08/16 06:19 10/08/16 07:04 10/08/16 08:12 Bedside Glucose 121 117 135 148 Test 10/08/16 10:01 Bedside Glucose 202 Medications Medications Current Medications Ondansetron HCl (Zofran Inj) 4 mg Q6H PRN IV NAUSEA AND/OR VOMITING; Start at 06:00 Acetaminophen (Tylenol Liquid) 650 mg Q6H PRN PO PAIN LEVEL 1-3 OR FEVER Last administered on 09/30/16t 08:32; Admin Dose 650 MG; Start 09/28/16 at 06:00 Hydromorphone HCl (Dilaudid) 0.5 mg Q4H PRN IV PAIN LEVEL 7-10 Last administered on 09/30/16 23:48; Admin Dose 0.5 MG; Start 09/28/16 at 06:00 Heparin Sodium (Porcine) (Heparin (5000 Units/0.5 ml)) 5,000 unit Q12 SC Last administered on 10/08/16 08:33; Admin Dose 5,000 UNIT; Start 09/28/16 at 09:00 Miscellaneous Information 1 ea NOTE XX ; Start 09/28/16 at 06:30 Famotidine (Pepcid Iv) 20 mg DAILY IV Last administered on 10/08/16 08:29; Admin Dose 20 MG; Start 09/28/16 at 09:00 Dextrose (D50w Syringe) 25 ml Q15M PRN IV Till BS 80 mg/dL or above x2 Last administered on 10/01/16 16:03; Admin Dose 25 ML; Start 09/28/16 at 08:30 Dextrose 50 ml 50 ml Q15M PRN IV Till BS 80 mg/dL or above x2; Start 09/28/16 at 08:30 Propofol 100 ml @ 2.31 mls/hr Q12H IV Last administered on 10/08/16 02:46; Admin Dose 12.936 MLS/HR; Start 09/28/16 at 11:30 Midazolam HCl 50 ml @ 1 mls/hr TITRATE IV Last administered on 10/06/16 22:25 ; Admin Dose 1 MLS/HR; Start 09/28/16 at 11:30 Fentanyl (Sublimaze) 100 ml @ 2.5 mls/hr TITRATE IV Last administered on 16:48; Admin Dose 2.5 MLS/HR; Start 09/29/16 at 09:00 Acetaminophen (Tylenol Liquid) 650 mg Q4H PRN NGT PAIN AND OR ELEVATED TEMP Last administered on 10/06/16 23:16; Admin Dose 650 MG; Start 09/30/16 at 08:30 Prasugrel (Effient) 10 mg DAILY PO Last administered on 10/08/16 10:00; Admin Dose 10 MG; Start 10/02/16 at 09:00 Carvedilol 12.5 mg 12.5 mg BID NGT Last administered on 10/03/16 21:05; Admin Dose 12.5 MG; Start 10/02/16 at 21:00 Imipenem/ Cilastatin Sodium (Primaxin 250 Mg/ 100 ml (Pmx)) 100 ml @ 166.667 mls/hr Q12 IVPB Last administered on 10/08/16 08:30; Admin Dose 166.667 MLS/HR ; Start 10/05/16 at 21:00 Miscellaneous Information This patient osoiro... PRN PRN XX WOUND CARE; Start 10/06 at 09:30 Norepinephrine 16 mg/Dextrose 500 ml @ 1.87 mls/hr TITRATE IV Last administered on 10/07/16 21:07; Admin Dose 37.5 MLS/HR; Start 10/06/16 at 12:00 Phenylephrine HCl/ Dextrose (Brice-Syneph/D5W) 500 ml @ 75 mls/hr TITRATE IV ; Start 10/06/16 at 12:00 Diagnostic Test (Pha) (Accu-Chek) 1 ea Q1H XX Last administered on 10/08/16 10 :01; Admin Dose 1 EA; Start 10/06/16 at 18:00 Calcium Carbonate 1250 mg 1,250 mg BID NGT Last administered on 10/08/16 08:29 ; Admin Dose 1,250 MG; Start 10/07/16 at 10:30 Linezolid (Zyvox 600mg/D5W (Pmx)) 300 ml @ 300 mls/hr Q12 IVPB Last administered on 10/08/16 09:14; Admin Dose 300 MLS/HR; Start 10/07/16 at 21:00 Aspirin (Aspirin) 81 mg DAILY NGT Last administered on 10/08/16 09:14; Admin Dose 81 MG; Start 10/08/16 at 09:00 ELTON FELIX Oct 08, 2016 11:18
--- NOTE | 2016-10-08 13:45 | CONS ---
Date/Time of Note Date/Time of Note DATE: 10/08/16 TIME: 13:37 Assessment/Plan Assessment/Plan Chief Complaint/Hosp Course 1. ESRD , he is on maintenance hemodialysis . He was dialyzed this morning . 2. Type I DM 3. h/o flash pulmonary edema 4. HTN 5. CAD 6. respiratory failure on vent 7. fever , blood cultures no growth thus far .. 8. ALOC , he is awake on Vent . 10. He is growing VRE from 1of 2 blood cultures 11. hypocalcemia , he is on calcium carbonate and IV calcitriol . Problems: Consultation Date/Type/Reason Admit Date/Time Sep 28, 2016 at 05:39 Initial Consult Date 09/28/16 Type of Consultation: Pulmonary/critical care 24 HR Interval Summary Free Text/Dictation He is in the ICU , intubated on a ventilator . He is awake and responsive . He was dialyzed earlier this morning . Subjective hx not possible: pt non-verbal Exam/Review of Systems Vital Signs Vitals Vital Signs Date Time Temp Pulse Resp B/P Pulse Ox O2 Delivery O2 Flow Rate FiO2 10/08/16 12:14 91 36 10/08/16 11:15 113/80 100 10/08/16 11:00 30 10/08/16 11:00 Mechanical Ventilator 10/08/16 08:00 98.4 Intake and Output 10/07/16 10/07/16 10/08/16 15:00 23:00 07:00 Intake Total 1048.40 ml 1334.85 ml 915.456 ml Output Total 0 ml 220 ml 200 ml Balance 1048.40 ml 1114.85 ml 715.456 ml Exam Constitutional: alert, non-verbal Respiratory: clear to auscultation Cardiovascular: regular rate and rhythm Gastrointestinal: soft Musculoskeletal: nl extremities to inspection Results Result Diagram: 10/08/16 0340 10/08/16 0340 Results 24 hrs Laboratory Tests Test 10/07/16 15:07 10/07/16 17:24 10/07/16 18:57 10/07/16 20:13 Bedside Glucose 131 151 156 137 Test 10/07/16 21:06 10/07/16 22:29 10/07/16 23:07 10/08/16 00:21 Bedside Glucose 179 177 184 151 Test 10/08/16 01:07 10/08/16 03:02 10/08/16 03:40 10/08/16 05:10 Bedside Glucose 172 155 121 White Blood Count 9.4 # Red Blood Count 4.00 L Hemoglobin 11.4 L Hematocrit 36.3 L Mean Corpuscular Volume 90.8 Mean Corpuscular Hemoglobin 28.5 L Mean Corpuscular Hemoglobin Concent 31.4 L Red Cell Distribution Width 18.1 H Platelet Count 264 Mean Platelet Volume 12.6 H Neutrophils % 72.3 Lymphocytes % 12.8 L Monocytes % 9.4 Eosinophils % 3.8 Basophils % 1.2 Nucleated Red Blood Cells % 1.1 H Neutrophils # 6.8 Lymphocytes # 1.2 Monocytes # 0.9 Eosinophils # 0.4 Basophils # 0.1 Nucleated Red Blood Cells # 0.1 H Sodium Level 133 L Potassium Level 3.9 Chloride Level 94 L Carbon Dioxide Level 21 Anion Gap 22 H Blood Urea Nitrogen 103 H Creatinine 10.08 H Glucose Level 141 Calcium Level 5.6 *L Test 10/08/16 06:19 10/08/16 07:04 10/08/16 08:12 10/08/16 10:01 Bedside Glucose 117 135 148 202 Test 10/08/16 11:14 10/08/16 12:07 10/08/16 13:16 Bedside Glucose 177 160 243 H Medications Medications Current Medications Ondansetron HCl (Zofran Inj) 4 mg Q6H PRN IV NAUSEA AND/OR VOMITING; Start at 06:00 Acetaminophen (Tylenol Liquid) 650 mg Q6H PRN PO PAIN LEVEL 1-3 OR FEVER Last administered on 09/30/16 08:32; Admin Dose 650 MG; Start 09/28/16 at 06:00 Hydromorphone HCl (Dilaudid) 0.5 mg Q4H PRN IV PAIN LEVEL 7-10 Last administered on 09/30/16 23:48; Admin Dose 0.5 MG; Start 09/28/16 at 06:00 Heparin Sodium (Porcine) (Heparin (5000 Units/0.5 ml)) 5,000 unit Q12 SC Last administered on 10/08/16 08:33; Admin Dose 5,000 UNIT; Start 09/28/16 at 09:00 Miscellaneous Information 1 ea NOTE XX ; Start 09/28/16 at 06:30 Famotidine (Pepcid Iv) 20 mg DAILY IV Last administered on 10/08/16 08:29; Admin Dose 20 MG; Start 09/28/16 at 09:00 Dextrose (D50w Syringe) 25 ml Q15M PRN IV Till BS 80 mg/dL or above x2 Last administered on 10/01/16 16:03; Admin Dose 25 ML; Start 09/28/16 at 08:30 Dextrose 50 ml 50 ml Q15M PRN IV Till BS 80 mg/dL or above x2; Start 09/28/16 at 08:30 Propofol 100 ml @ 2.31 mls/hr Q12H IV Last administered on 10/08/16 02:46; Admin Dose 12.936 MLS/HR; Start 09/28/16 at 11:30 Midazolam HCl 50 ml @ 1 mls/hr TITRATE IV Last administered on 10/06/16 22:25 ; Admin Dose 1 MLS/HR; Start 09/28/16 at 11:30 Fentanyl (Sublimaze) 100 ml @ 2.5 mls/hr TITRATE IV Last administered on 16:48; Admin Dose 2.5 MLS/HR; Start 09/29/16 at 09:00 Acetaminophen (Tylenol Liquid) 650 mg Q4H PRN NGT PAIN AND OR ELEVATED TEMP Last administered on 10/06/16 23:16; Admin Dose 650 MG; Start 09/30/16 at 08:30 Prasugrel (Effient) 10 mg DAILY PO Last administered on 10/08/16 10:00; Admin Dose 10 MG; Start 10/02/16 at 09:00 Carvedilol 12.5 mg 12.5 mg BID NGT Last administered on 10/03/16 21:05; Admin Dose 12.5 MG; Start 10/02/16 at 21:00 Imipenem/ Cilastatin Sodium (Primaxin 250 Mg/ 100 ml (Pmx)) 100 ml @ 166.667 mls/hr Q12 IVPB Last administered on 10/08/16 08:30; Admin Dose 166.667 MLS/HR ; Start 10/05/16 at 21:00 Miscellaneous Information This patient osorio... PRN PRN XX WOUND CARE; Start 10/06 at 09:30 Norepinephrine 16 mg/Dextrose 500 ml @ 1.87 mls/hr TITRATE IV Last administered on 10/07/16 21:07; Admin Dose 37.5 MLS/HR; Start 10/06/16 at 12:00 Phenylephrine HCl/ Dextrose (Brice-Syneph/D5W) 500 ml @ 75 mls/hr TITRATE IV ; Start 10/06/16 at 12:00 Diagnostic Test (Pha) (Accu-Chek) 1 ea Q1H XX Last administered on 10/08/16 13 :17; Admin Dose 1 EA; Start 10/06/16 at 18:00 Calcium Carbonate 1250 mg 1,250 mg BID NGT Last administered on 10/08/16 08:29 ; Admin Dose 1,250 MG; Start 10/07/16 at 10:30 Linezolid (Zyvox 600mg/D5W (Pmx)) 300 ml @ 300 mls/hr Q12 IVPB Last administered on 10/08/16 09:14; Admin Dose 300 MLS/HR; Start 10/07/16 at 21:00 Aspirin (Aspirin) 81 mg DAILY NGT Last administered on 10/08/16 09:14; Admin Dose 81 MG; Start 10/08/16 at 09:00 Calcitriol (Calcitriol) 1 mcg DAILY IV ; Start 10/08/16 at 14:00; Status DONY SAMANO MD Oct 08, 2016 13:44
--- NOTE | 2016-10-08 14:31 | PN ---
Date/Time of Note Date/Time of Note DATE: 10/08/16 TIME: 14:29 Assessment/Plan VTE Prophylaxis VTE Prophylaxis Intervention: SCD's Lines/Catheters IV Catheter Type (from [facility]): Peripheral IV Urinary Cath still in place: No Assessment/Plan Chief Complaint/Hosp Course ASSESSMENT AND PLAN: - Septic shock, continue pressors ICU care. - VRE bacteremia, continue Zyvox, continue antibiotics per ID. - Acute respiratory failure, requiring oral intubation and ventilatory support secondary to pulmonary edema. Dr. Nunez is following in pulmonology consultation. Continue ventilator support. - End-stage renal disease, hemodialysis dependent. Dr. Hubbard is following the patient in nephrology consultation. Continue the hemodialysis per nephrology. - Diabetes mellitus type [address] Garay is following endocrinology consultation. Continue patient on insulin drip. The patient usually has an insulin pump, which is currently discontinued. - Peripheral arterial disease, status post vascular intervention. Continue Eliquis. - Anemia of chronic disease. Continue Epogen. - Coronary artery disease. Dr. Stephen is following in cardiology consultation. - Possible healthcare acquired pneumonia. Continue antibiotics per ID. Dr. Allison is following in ID consultation. - Possible sepsis secondary to pneumonia. Continue IV fluids and pressors for hemodynamic support, ICU care. - Transaminitis, Dr. Britt is following in gastroenterology consultation Continue heparin for deep venous thrombosis prophylaxis and Pepcid for peptic ulcer disease prophylaxis. Further recommendations based on clinical course. Plan of care discussed with Dr. Rosales. Problems: Subjective 24 Hr Interval Summary Free Text/Dictation Patient is currently on ventilator support sedation, plan for hemodialysis today and weaning after hemodialysis Exam/Review of Systems Vital Signs Vitals Vital Signs Date Time Temp Pulse Resp B/P Pulse Ox O2 Delivery O2 Flow Rate FiO2 10/08/16 12:14 91 36 10/08/16 11:15 113/80 100 10/08/16 11:00 30 10/08/16 11:00 Mechanical Ventilator 10/08/16 08:00 98.4 Intake and Output 10/07/16 10/07/16 10/08/16 14:59 22:59 06:59 Intake Total 1137.60 ml 1346.65 ml 934.216 ml Output Total 0 ml 220 ml 0 ml Balance 1137.60 ml 1126.65 ml 934.216 ml Exam GENERAL: Well-developed, well-nourished gentleman currently orally intubated on vent support, obtunded. HEENT: Head is atraumatic, normocephalic. Patient has a right eye prosthesis. Left eye pupil is equal, round, sluggishly reactive to light and accommodation. NECK: Supple, no cervical lymphadenopathy, no thyromegaly. CHEST: Lung sounds diminished at the bases. Scattered rhonchi bilaterally. Patient has a left chest Port-A-Cath. CARDIOVASCULAR: Normal S1, S2. No murmurs, gallops, clicks, rubs noted. ABDOMEN: Round, soft, nondistended, nontender. Bowel sounds present. EXTREMITIES: There is mild edema. There is no clubbing, cyanosis. Left upper extremity with AV graft. SKIN: No rash, petechiae noted. NEUROLOGIC: Patient is obtunded. Results Result Diagram: 10/08/16 0340 10/08/16 0340 Results 24 hrs Laboratory Tests Test 10/07/16 15:07 10/07/16 17:24 10/07/16 18:57 10/07/16 20:13 Bedside Glucose 131 151 156 137 Test 10/07/16 21:06 10/07/16 22:29 10/07/16 23:07 10/08/16 00:21 Bedside Glucose 179 177 184 151 Test 10/08/16 01:07 10/08/16 03:02 10/08/16 03:40 10/08/16 05:10 Bedside Glucose 172 155 121 White Blood Count 9.4 # Red Blood Count 4.00 L Hemoglobin 11.4 L Hematocrit 36.3 L Mean Corpuscular Volume 90.8 Mean Corpuscular Hemoglobin 28.5 L Mean Corpuscular Hemoglobin Concent 31.4 L Red Cell Distribution Width 18.1 H Platelet Count 264 Mean Platelet Volume 12.6 H Neutrophils % 72.3 Lymphocytes % 12.8 L Monocytes % 9.4 Eosinophils % 3.8 Basophils % 1.2 Nucleated Red Blood Cells % 1.1 H Neutrophils # 6.8 Lymphocytes # 1.2 Monocytes # 0.9 Eosinophils # 0.4 Basophils # 0.1 Nucleated Red Blood Cells # 0.1 H Sodium Level 133 L Potassium Level 3.9 Chloride Level 94 L Carbon Dioxide Level 21 Anion Gap 22 H Blood Urea Nitrogen 103 H Creatinine 10.08 H Glucose Level 141 Calcium Level 5.6 *L Test 10/08/16 06:19 10/08/16 07:04 10/08/16 08:12 10/08/16 10:01 Bedside Glucose 117 135 148 202 Test 10/08/16 11:14 10/08/16 12:07 10/08/16 13:16 10/08/16 14:10 Bedside Glucose 177 160 243 H 215 Medications Medications Current Medications Ondansetron HCl (Zofran Inj) 4 mg Q6H PRN IV NAUSEA AND/OR VOMITING; Start at 06:00 Acetaminophen (Tylenol Liquid) 650 mg Q6H PRN PO PAIN LEVEL 1-3 OR FEVER Last administered on 09/30/16 08:32; Admin Dose 650 MG; Start 09/28/16 at 06:00 Hydromorphone HCl (Dilaudid) 0.5 mg Q4H PRN IV PAIN LEVEL 7-10 Last administered on 09/30/16 23:48; Admin Dose 0.5 MG; Start 09/28/16 at 06:00 Heparin Sodium (Porcine) (Heparin (5000 Units/0.5 ml)) 5,000 unit Q12 SC Last administered on 10/08/16 08:33; Admin Dose 5,000 UNIT; Start 09/28/16 at 09:00 Miscellaneous Information 1 ea NOTE XX ; Start 09/28/16 at 06:30 Famotidine (Pepcid Iv) 20 mg DAILY IV Last administered on 10/08/16 08:29; Admin Dose 20 MG; Start 09/28/16 at 09:00 Dextrose (D50w Syringe) 25 ml Q15M PRN IV Till BS 80 mg/dL or above x2 Last administered on 10/01/16 16:03; Admin Dose 25 ML; Start 09/28/16 at 08:30 Dextrose 50 ml 50 ml Q15M PRN IV Till BS 80 mg/dL or above x2; Start 09/28/16 at 08:30 Propofol 100 ml @ 2.31 mls/hr Q12H IV Last administered on 10/08/16 14:14; Admin Dose 11.55 MLS/HR; Start 09/28/16 at 11:30 Midazolam HCl 50 ml @ 1 mls/hr TITRATE IV Last administered on 10/06/16 22:25 ; Admin Dose 1 MLS/HR; Start 09/28/16 at 11:30 Fentanyl (Sublimaze) 100 ml @ 2.5 mls/hr TITRATE IV Last administered on 16:48; Admin Dose 2.5 MLS/HR; Start 09/29/16 at 09:00 Acetaminophen (Tylenol Liquid) 650 mg Q4H PRN NGT PAIN AND OR ELEVATED TEMP Last administered on 10/06/16 23:16; Admin Dose 650 MG; Start 09/30/16 at 08:30 Prasugrel (Effient) 10 mg DAILY PO Last administered on 10/08/16 10:00; Admin Dose 10 MG; Start 10/02/16 at 09:00 Carvedilol 12.5 mg 12.5 mg BID NGT Last administered on 10/03/16 21:05; Admin Dose 12.5 MG; Start 10/02/16 at 21:00 Imipenem/ Cilastatin Sodium (Primaxin 250 Mg/ 100 ml (Pmx)) 100 ml @ 166.667 mls/hr Q12 IVPB Last administered on 10/08/16 08:30; Admin Dose 166.667 MLS/HR ; Start 10/05/16 at 21:00 Miscellaneous Information This patient osorio... PRN PRN XX WOUND CARE; Start 10/06 at 09:30 Norepinephrine 16 mg/Dextrose 500 ml @ 1.87 mls/hr TITRATE IV Last administered on 10/07/16 21:07; Admin Dose 37.5 MLS/HR; Start 10/06/16 at 12:00 Phenylephrine HCl/ Dextrose (Brice-Syneph/D5W) 500 ml @ 75 mls/hr TITRATE IV ; Start 10/06/16 at 12:00 Diagnostic Test (Pha) (Accu-Chek) 1 ea Q1H XX Last administered on 10/08/16 14 :10; Admin Dose 1 EA; Start 10/06/16 at 18:00 Calcium Carbonate 1250 mg 1,250 mg BID NGT Last administered on 10/08/16 08:29 ; Admin Dose 1,250 MG; Start 10/07/16 at 10:30 Linezolid (Zyvox 600mg/D5W (Pmx)) 300 ml @ 300 mls/hr Q12 IVPB Last administered on 10/08/16 09:14; Admin Dose 300 MLS/HR; Start 10/07/16 at 21:00 Aspirin (Aspirin) 81 mg DAILY NGT Last administered on 10/08/16 09:14; Admin Dose 81 MG; Start 10/08/16 at 09:00 Calcitriol (Calcitriol) 1 mcg DAILY IV ; Start 10/08/16 at 14:00 ANGELINA CASTREJON Oct 08, 2016 14:31
[2016-10-08] MEDS: CALCITRIOL 1 MCG INJ IV SCH (14:45)
--- NOTE | 2016-10-08 16:14 | CONS ---
Date/Time of Note Date/Time of Note DATE: 10/08/16 TIME: 16:12 Assessment/Plan Assessment/Plan Chief Complaint/Hosp Course ID PROGRESS NOTE TOTAL ABX DAY # 12 => Primaxin #4 + Zyvox #2 s/p Vancomycin. 2. Cefepime-> DC 10/04/16 am Vanco IV -> DC 10/07 24H INTERVAL SUMMARY * BCx (+)VRE Fevers down today, WBC down * BCx 10/04/16 (+)1/2 bottles ? LIne Sepsis ? * BLOOD CULTURE Final Organism 1 VANCO RESISTANT ENTEROCOCCUS . 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 RX --------- --- AMPICILLIN >=32 R GENTAMICIN 120 S LINEZOLID 2 S PENICILLIN-G >=64 R QUINUPRISTIN/DALFOPRISTIN 0.5 S STREPTOMYCIN 300 R VANCOMYCIN >=32 R PHYSICAL EXAMINATION: GENERAL: VSS, NAD, sedated on the Vent HEENT: ETT/NGT secure NECK: Supple, trach-> midline CHEST: Equal chest rise bilaterally, without dyspnea on observation HEART: Pulse RRR ABDOMEN: Soft, benign EXTREMITIES: Warm SKIN: Warm, dry (+)Multiple Tattoos ID ASSESSMENT: 51 yo M admitted with: 1. Recurrent sepsis w/ FEVER > 103 10/04, leukocytosis -> Failed ABX de- escalation attempt SAT 10/04 * 10/04/16 BCx (+) 1/2 => LIne Sepsis ? * Status post shock on admission w/all admission cultures were negative -> ABX DC'd 10/04/16 am with recurrent sepsis within 12H 2. Respiratory failure, secondary to fluid overload, possibly aspiration event. 3. COPD - tobacco user 4. End-stage renal disease, hemodialysis dependent-> LUEXT AVF 5. History of coronary artery disease. 6. Diabetes. (-)MRSA Nares INVASIVES: * ETT, NGT, L-FEM TLC, FC, left chest Port-A-Cath. ABX ALLERGIES: MACROLIDES, ERYTHROMYCIN CURRENT ABX: TOTAL ABX DAY # 12 => Primaxin #4 + Zyvox #2 dc Vanco 10/06 s/p Vancomycin. 2. Cefepime-> DC 10/04/16 am ID RECOMMENDATIONS: 1. Femoral line DC'd -> Cx tip 10/06 (-) 24H 2. Zyvox for VRE coverage (VRE is resistant to Ampicillin) 3. If he spike temp again -> draw BCx from the Port-A-Cath 4. Repeat sputum cx -- if negative will DC Primaxin . . . . . . . Problems: Consultation Date/Type/Reason Admit Date/Time Sep 28, 2016 at 05:39 Initial Consult Date 10/01/16 Type of Consultation: ID Exam/Review of Systems Vital Signs Vitals Vital Signs Date Time Temp Pulse Resp B/P Pulse Ox O2 Delivery O2 Flow Rate FiO2 10/08/16 15:05 94 20 100 35 10/08/16 14:45 136/86 10/08/16 14:00 Mechanical Ventilator 10/08/16 12:00 97.8 Intake and Output 10/07/16 10/07/16 10/08/16 15:00 23:00 07:00 Intake Total 1048.40 ml 1334.85 ml 915.456 ml Output Total 0 ml 220 ml 200 ml Balance 1048.40 ml 1114.85 ml 715.456 ml Results Result Diagram: 10/08/16 0340 10/08/16 0340 Results 24 hrs Laboratory Tests Test 10/07/16 17:24 10/07/16 18:57 10/07/16 20:13 10/07/16 21:06 Bedside Glucose 151 156 137 179 Test 10/07/16 22:29 10/07/16 23:07 10/08/16 00:21 10/08/16 01:07 Bedside Glucose 177 184 151 172 Test 10/08/16 03:02 10/08/16 03:40 10/08/16 05:10 10/08/16 06:19 Bedside Glucose 155 121 117 White Blood Count 9.4 # Red Blood Count 4.00 L Hemoglobin 11.4 L Hematocrit 36.3 L Mean Corpuscular Volume 90.8 Mean Corpuscular Hemoglobin 28.5 L Mean Corpuscular Hemoglobin Concent 31.4 L Red Cell Distribution Width 18.1 H Platelet Count 264 Mean Platelet Volume 12.6 H Neutrophils % 72.3 Lymphocytes % 12.8 L Monocytes % 9.4 Eosinophils % 3.8 Basophils % 1.2 Nucleated Red Blood Cells % 1.1 H Neutrophils # 6.8 Lymphocytes # 1.2 Monocytes # 0.9 Eosinophils # 0.4 Basophils # 0.1 Nucleated Red Blood Cells # 0.1 H Sodium Level 133 L Potassium Level 3.9 Chloride Level 94 L Carbon Dioxide Level 21 Anion Gap 22 H Blood Urea Nitrogen 103 H Creatinine 10.08 H Glucose Level 141 Calcium Level 5.6 *L Test 10/08/16 07:04 10/08/16 08:12 10/08/16 10:01 10/08/16 11:14 Bedside Glucose 135 148 202 177 Test 10/08/16 12:07 10/08/16 13:16 10/08/16 14:10 10/08/16 15:06 Bedside Glucose 160 243 H 215 163 Test 10/08/16 15:58 Bedside Glucose 149 Medications Medications Current Medications Ondansetron HCl (Zofran Inj) 4 mg Q6H PRN IV NAUSEA AND/OR VOMITING; Start at 06:00 Acetaminophen (Tylenol Liquid) 650 mg Q6H PRN PO PAIN LEVEL 1-3 OR FEVER Last administered on 09/30/16 08:32; Admin Dose 650 MG; Start 09/28/16 at 06:00 Hydromorphone HCl (Dilaudid) 0.5 mg Q4H PRN IV PAIN LEVEL 7-10 Last administered on 09/30/16 23:48; Admin Dose 0.5 MG; Start 09/28/16 at 06:00 Heparin Sodium (Porcine) (Heparin (5000 Units/0.5 ml)) 5,000 unit Q12 SC Last administered on 10/08/16 08:33; Admin Dose 5,000 UNIT; Start 09/28/16 at 09:00 Miscellaneous Information 1 ea NOTE XX ; Start 09/28/16 at 06:30 Famotidine (Pepcid Iv) 20 mg DAILY IV Last administered on 10/08/16 08:29; Admin Dose 20 MG; Start 09/28/16 at 09:00 Dextrose (D50w Syringe) 25 ml Q15M PRN IV Till BS 80 mg/dL or above x2 Last administered on 10/01/16 16:03; Admin Dose 25 ML; Start 09/28/16 at 08:30 Dextrose 50 ml 50 ml Q15M PRN IV Till BS 80 mg/dL or above x2; Start 09/28/16 at 08:30 Propofol 100 ml @ 2.31 mls/hr Q12H IV Last administered on 10/08/16 14:14; Admin Dose 11.55 MLS/HR; Start 09/28/16 at 11:30 Midazolam HCl 50 ml @ 1 mls/hr TITRATE IV Last administered on 10/06/16 22:25 ; Admin Dose 1 MLS/HR; Start 09/28/16 at 11:30 Fentanyl (Sublimaze) 100 ml @ 2.5 mls/hr TITRATE IV Last administered on 16:48; Admin Dose 2.5 MLS/HR; Start 09/29/16 at 09:00 Acetaminophen (Tylenol Liquid) 650 mg Q4H PRN NGT PAIN AND OR ELEVATED TEMP Last administered on 10/06/16 23:16; Admin Dose 650 MG; Start 09/30/16 at 08:30 Prasugrel (Effient) 10 mg DAILY PO Last administered on 10/08/16 10:00; Admin Dose 10 MG; Start 10/02/16 at 09:00 Carvedilol 12.5 mg 12.5 mg BID NGT Last administered on 10/03/16 21:05; Admin Dose 12.5 MG; Start 10/02/16 at 21:00 Imipenem/ Cilastatin Sodium (Primaxin 250 Mg/ 100 ml (Pmx)) 100 ml @ 166.667 mls/hr Q12 IVPB Last administered on 10/08/16 08:30; Admin Dose 166.667 MLS/HR ; Start 10/05/16 at 21:00 Miscellaneous Information This patient osorio... PRN PRN XX WOUND CARE; Start 10/06 at 09:30 Norepinephrine 16 mg/Dextrose 500 ml @ 1.87 mls/hr TITRATE IV Last administered on 10/07/16 21:07; Admin Dose 37.5 MLS/HR; Start 10/06/16 at 12:00 Phenylephrine HCl/ Dextrose (Brice-Syneph/D5W) 500 ml @ 75 mls/hr TITRATE IV ; Start 10/06/16 at 12:00 Diagnostic Test (Pha) (Accu-Chek) 1 ea Q1H XX Last administered on 10/08/16 15 :58; Admin Dose 1 EA; Start 10/06/16 at 18:00 Calcium Carbonate 1250 mg 1,250 mg BID NGT Last administered on 10/08/16 08:29 ; Admin Dose 1,250 MG; Start 10/07/16 at 10:30 Linezolid (Zyvox 600mg/D5W (Pmx)) 300 ml @ 300 mls/hr Q12 IVPB Last administered on 10/08/16 09:14; Admin Dose 300 MLS/HR; Start 10/07/16 at 21:00 Aspirin (Aspirin) 81 mg DAILY NGT Last administered on 10/08/16 09:14; Admin Dose 81 MG; Start 10/08/16 at 09:00 Calcitriol (Calcitriol) 1 mcg DAILY IV Last administered on 10/08/16 14:45; Admin Dose 1 MCG; Start 10/08/16 at 14:00 MISA CROFT NP Oct 08, 2016 16:14
[2016-10-08] MEDS: INSULIN HUMAN REGULAR 100 UNIT in SOD CHLORIDE 0.9% 99 ML IV SCH (17:13)
--- NOTE | 2016-10-08 18:33 | CONS ---
DATE OF ADMISSION: 09/28/2016 DATE OF CONSULTATION: TYPE OF CONSULTATION: Gastroenterology. SUBJECTIVELY: The patient is unable to communicate. GI consultation is obtained for abnormal liver functions. OBJECTIVELY: The patient is unresponsive, was intubated. He developed respiratory arrest in the em ergency room and he was intubated and he was brought to the ICU. At this time he is still on Levoph ed, trying to maintain the blood pressure. CARDIOVASCULAR: Normal heart sounds. RESPIRATORY: Some occasional rales bilaterally. ABDOMEN: Shows soft abdomen. LABORATORY WORKUP: As of 10/07/2016, AST is 2112, ALT is 2004, alkaline phosphatase is 295. Calciu m 5.7. Today's lab particularly liver panel, is not available. Hemoglobin 11.4. Prothrombin time is 14.3. The chest x-ray shows evidence of left-sided Port-A-Cath, prominent interstitial markings. CLINICAL IMPRESSION: From the GI standpoint, he continues to have abnormal liver functions, probabl y due to shock liver. ____ suggestive of hepatobiliary problems on ultrasound. Respiratory failure. PLAN: At this time, continue to observe the patient closely. Dictated By: RENAE HELMS/NTS Conf#: [id number] DID#: [id number] CC: WILMER RODRIGUEZ MD;*EndCC*
[2016-10-09] VITALS (66 sets, daily range): BP systolic 89–143; BP diastolic 58–87; PULSE 78–101; RESP 4–43
[2016-10-09] MEDS: ACCU-CHEK XX SCH ×24 (00:02→22:59)
[2016-10-09 06:07] LABS: ADD SCAN DIFF NO
[2016-10-09] MEDS: DEXTROSE 50% 50 ML SYRINGE IV PRN ×2 (06:08→06:26)
[2016-10-09 06:17] LABS: BASOPHIL # 0.1 10^3/ul (0.0-0.1); BASOPHILS % 0.8 % (0.0-2.0); EOSINOPHILS # 0.5 10^3/ul (0.0-0.5); EOSINOPHILS % 5.4 % (0.0-7.0); HEMATOCRIT 37.5 % (42.0-52.0); HEMOGLOBIN 11.7 g/dl (14.0-18.0); LYMPHOCYTES % 11.5 % (15.0-51.0); MEAN CORPUSCULAR HEMOGLOBIN 28.3 pg (29.0-33.0); MEAN CORPUSCULAR HGB CONC 31.2 g/dl (32.0-37.0); MEAN CORPUSCULAR VOLUME 90.8 fl (82.0-101.0); MEAN PLATELET VOLUME 12.1 fl (7.4-10.4); MONOCYTES % 10.9 % (0.0-11.0); NEUTROPHIL # 6.3 10^3/ul (1.6-7.5); NEUTROPHILS % 70.7 % (39.0-77.0); NUCLEATED RED BLOOD CELLS% 0.5 /100WBC (0.0-0.0); PLATELET COUNT 210 10^3/UL (140-415); RED BLOOD COUNT 4.13 10^6/ul (4.70-6.10); RED CELL DISTRIBUTION WIDTH 17.8 % (11.5-14.5); WHITE BLOOD COUNT 8.9 10^3/ul (4.8-10.8)
[2016-10-09 06:35] LABS: POTASSIUM 3.9 mmol/L (3.5-5.1)
[2016-10-09 06:38] LABS: CALCIUM 6.9 mg/dl (8.4-10.2); CREATININE 9.1 mg/dl (0.61-1.24)
--- NOTE | 2016-10-09 09:01 | PN ---
Date/Time of Note Date/Time of Note DATE: 10/09/16 TIME: 08:58 Assessment/Plan VTE Prophylaxis VTE Prophylaxis Intervention: other Lines/Catheters IV Catheter Type (from [facility]): Peripheral IV Urinary Cath still in place: No Reason Cath still needed: other (indicate) Assessment/Plan Assessment/Plan - Septic shock, continue pressors ICU care. - VRE bacteremia, continue Zyvox, - per ID. - Acute respiratory failure, requiring oral intubation and ventilatory support secondary to pulmonary edema. - per Dr. Nunez in pulmonology consultation. Continue ventilator support. - End-stage renal disease, hemodialysis dependent. - per Dr. Hubbard in nephrology consultation. Continue the hemodialysis per nephrology. - Diabetes mellitus type [address] Garay is following endocrinology consultation. Continue patient on insulin drip. The patient usually has an insulin pump, which is currently discontinued. - Peripheral arterial disease, status post vascular intervention. Continue Eliquis. - Anemia of chronic disease. Continue Epogen. - Coronary artery disease. Dr. Stephen is following in cardiology consultation. - Possible healthcare acquired pneumonia. Continue antibiotics per ID. Dr. Allison is following in ID consultation. - Possible sepsis secondary to pneumonia. Continue IV fluids and pressors for hemodynamic support, ICU care. - Transaminitis, Dr. Britt is following in gastroenterology consultation Continue heparin for deep venous thrombosis prophylaxis and Pepcid for peptic ulcer disease prophylaxis. Further recommendations based on clinical course. Plan of care discussed with Dr. Rosales. Subjective 24 Hr Interval Summary Free Text/Dictation remains orally intubated, afebrile, on propofol drip 30 mcg/hr. insulin drip- algorithm 3. had and epiode of hypoglycemia, stBLE bs , not awake. . on NGT feedings- tolerates well. HD today. dw staff Constitutional: requiring IVF, requiring O2 Exam/Review of Systems Vital Signs Vitals Vital Signs Date Time Temp Pulse Resp B/P Pulse Ox O2 Delivery O2 Flow Rate FiO2 10/09/16 08:05 97 18 100 30 10/09/16 07:30 106/69 10/09/16 07:00 Mechanical Ventilator 10/09/16 04:00 97.2 Intake and Output 10/08/16 10/08/16 10/09/16 15:00 23:00 07:00 Intake Total 1553.74 ml 1155.61 ml 759.49 ml Output Total 2900 ml Balance -1346.26 ml 1155.61 ml 759.49 ml Exam Constitutional: frail Eyes: nl sclera ENMT: nl external ears & nose Respiratory: diminished breath sounds Cardiovascular: nl pulses Gastrointestinal: non-tender, other (ngt intact ), soft Genitourinary - Male: other (HD) Musculoskeletal: nl extremities to inspection Extremities: normal pulses 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: unresponsive Skin: other (multilple tattoos noted) Lymph: nontender Results Result Diagram: 10/09/16 0500 10/09/16 0500 Results 24 hrs Laboratory Tests Test 10/08/16 10:01 10/08/16 11:14 10/08/16 12:07 10/08/16 13:16 Bedside Glucose 202 177 160 243 H Test 10/08/16 14:10 10/08/16 15:06 10/08/16 15:58 10/08/16 17:06 Bedside Glucose 215 163 149 120 Test 10/08/16 18:15 10/08/16 20:06 10/08/16 21:05 10/08/16 22:57 Bedside Glucose 121 90 95 201 Test 10/09/16 00:01 10/09/16 01:15 10/09/16 02:11 10/09/16 04:13 Bedside Glucose 257 H 184 159 85 Test 10/09/16 05:00 10/09/16 05:04 10/09/16 06:02 10/09/16 06:14 White Blood Count 8.9 Red Blood Count 4.13 L Hemoglobin 11.7 L Hematocrit 37.5 L Mean Corpuscular Volume 90.8 Mean Corpuscular Hemoglobin 28.3 L Mean Corpuscular Hemoglobin Concent 31.2 L Red Cell Distribution Width 17.8 H Platelet Count 210 # Mean Platelet Volume 12.1 H Neutrophils % 70.7 Lymphocytes % 11.5 L Monocytes % 10.9 Eosinophils % 5.4 Basophils % 0.8 Nucleated Red Blood Cells % 0.5 H Neutrophils # 6.3 Lymphocytes # 1.0 Monocytes # 1.0 H Eosinophils # 0.5 Basophils # 0.1 Nucleated Red Blood Cells # 0.0 Sodium Level 135 Potassium Level 3.9 Chloride Level 92 L Carbon Dioxide Level 25 Anion Gap 22 H Blood Urea Nitrogen 87 H Creatinine 9.10 H Glucose Level 93 # Calcium Level 6.9 L Bedside Glucose 75 56 L 72 Test 10/09/16 06:27 10/09/16 06:51 10/09/16 08:45 Bedside Glucose 136 130 216 Medications Medications Current Medications Ondansetron HCl (Zofran Inj) 4 mg Q6H PRN IV NAUSEA AND/OR VOMITING; Start at 06:00 Acetaminophen (Tylenol Liquid) 650 mg Q6H PRN PO PAIN LEVEL 1-3 OR FEVER Last administered on 09/30/16 08:32; Admin Dose 650 MG; Start 09/28/16 at 06:00 Hydromorphone HCl (Dilaudid) 0.5 mg Q4H PRN IV PAIN LEVEL 7-10 Last administered on 09/30/16 23:48; Admin Dose 0.5 MG; Start 09/28/16 at 06:00 Heparin Sodium (Porcine) (Heparin (5000 Units/0.5 ml)) 5,000 unit Q12 SC Last administered on 10/08/16 21:03; Admin Dose 5,000 UNIT; Start 09/28/16 at 09:00 Miscellaneous Information 1 ea NOTE XX ; Start 09/28/16 at 06:30 Famotidine (Pepcid Iv) 20 mg DAILY IV Last administered on 10/08/16 08:29; Admin Dose 20 MG; Start 09/28/16 at 09:00 Dextrose (D50w Syringe) 25 ml Q15M PRN IV Till BS 80 mg/dL or above x2 Last administered on 10/09/16 06:26; Admin Dose 25 ML; Start 09/28/16 at 08:30 Dextrose 50 ml 50 ml Q15M PRN IV Till BS 80 mg/dL or above x2; Start 09/28/16 at 08:30 Propofol 100 ml @ 2.31 mls/hr Q12H IV Last administered on 10/08/16 23:00; Admin Dose 13.86 MLS/HR; Start 09/28/16 at 11:30 Midazolam HCl 50 ml @ 1 mls/hr TITRATE IV Last administered on 10/06/16 22:25 ; Admin Dose 1 MLS/HR; Start 09/28/16 at 11:30 Fentanyl (Sublimaze) 100 ml @ 2.5 mls/hr TITRATE IV Last administered on 16:48; Admin Dose 2.5 MLS/HR; Start 09/29/16 at 09:00 Acetaminophen (Tylenol Liquid) 650 mg Q4H PRN NGT PAIN AND OR ELEVATED TEMP Last administered on 10/06/16 23:16; Admin Dose 650 MG; Start 09/30/16 at 08:30 Prasugrel (Effient) 10 mg DAILY PO Last administered on 10/08/16 10:00; Admin Dose 10 MG; Start 10/02/16 at 09:00 Carvedilol 12.5 mg 12.5 mg BID NGT Last administered on 10/03/16 21:05; Admin Dose 12.5 MG; Start 10/02/16 at 21:00 Imipenem/ Cilastatin Sodium (Primaxin 250 Mg/ 100 ml (Pmx)) 100 ml @ 166.667 mls/hr Q12 IVPB Last administered on 10/08/16 21:01; Admin Dose 166.667 MLS/HR ; Start 10/05/16 at 21:00 Miscellaneous Information This patient osorio... PRN PRN XX WOUND CARE; Start 10/06 at 09:30 Norepinephrine 16 mg/Dextrose 500 ml @ 1.87 mls/hr TITRATE IV Last administered on 10/07/16 21:07; Admin Dose 37.5 MLS/HR; Start 10/06/16 at 12:00 Phenylephrine HCl/ Dextrose (Brice-Syneph/D5W) 500 ml @ 75 mls/hr TITRATE IV ; Start 10/06/16 at 12:00 Diagnostic Test (Pha) (Accu-Chek) 1 ea Q1H XX Last administered on 10/09/16 07 :06; Admin Dose 1 EA; Start 10/06/16 at 18:00 Calcium Carbonate 1250 mg 1,250 mg BID NGT Last administered on 10/08/16 23:26 ; Admin Dose 1,250 MG; Start 10/07/16 at 10:30 Linezolid (Zyvox 600mg/D5W (Pmx)) 300 ml @ 300 mls/hr Q12 IVPB Last administered on 10/08/16 21:01; Admin Dose 300 MLS/HR; Start 10/07/16 at 21:00 Aspirin (Aspirin) 81 mg DAILY NGT Last administered on 10/08/16 09:14; Admin Dose 81 MG; Start 10/08/16 at 09:00 Calcitriol (Calcitriol) 1 mcg DAILY IV Last administered on 10/08/16 14:45; Admin Dose 1 MCG; Start 10/08/16 at 14:00 PEDRO BENSON Oct 09, 2016 09:01
[2016-10-09] MEDS: LINEZOLID 600 MG/D5W (PMX) 300 ML IVPB SCH ×2 (09:10→21:34)
[2016-10-09] MEDS: PRASUGREL HYDROCHLORIDE 10 MG TABLET PO SCH (09:10)
[2016-10-09] MEDS: ASPIRIN 81 MG TAB NGT SCH (09:10)
[2016-10-09] MEDS: CA CARBONATE (250 MG/ML) 5ML CUP NGT SCH ×2 (09:10→20:33)
[2016-10-09] MEDS: IMIPENEM-CILAST 250MG IV (PMX) 100 ML IVPB SCH ×2 (09:10→20:30)
[2016-10-09] MEDS: FAMOTIDINE 20 MG INJ IV SCH (09:11)
[2016-10-09] MEDS: HEPARIN 5,000 UNIT/0.5 ML VIAL SC SCH ×2 (09:12→20:39)
[2016-10-09] MEDS: CALCITRIOL 1 MCG INJ IV SCH (09:13)
--- NOTE | 2016-10-09 09:13 | CONS ---
Date/Time of Note Date/Time of Note DATE: 10/09/16 TIME: 09:11 Assessment/Plan Assessment/Plan Additional Assessment/Plan 1. CKD on HD, next HD tomm 2. Ventillator dependent with last cxr revealing no chf, hopeful extubation soon 3. DM, diff to control. 4. Know CAD 5. Abnl liver tests sec to shock liver Consultation Date/Type/Reason Admit Date/Time Sep 28, 2016 at 05:39 Initial Consult Date 10/01/16 Type of Consultation: ID [id number] HR Interval Summary Subjective hx not possible: other (intubated and sedated) Exam/Review of Systems Vital Signs Vitals Vital Signs Date Time Temp Pulse Resp B/P Pulse Ox O2 Delivery O2 Flow Rate FiO2 10/09/16 08:05 97 18 100 30 10/09/16 07:30 106/69 10/09/16 07:00 Mechanical Ventilator 10/09/16 04:00 97.2 Intake and Output 10/08/16 10/08/16 10/09/16 15:00 23:00 07:00 Intake Total 1553.74 ml 1155.61 ml 759.49 ml Output Total 2900 ml Balance -1346.26 ml 1155.61 ml 759.49 ml Exam Neck: No jvd Respiratory: diminished breath sounds Cardiovascular: regular rate and rhythm Gastrointestinal: soft Extremities: No edema Results Result Diagram: 10/09/16 0500 10/09/16 0500 Results 24 hrs Laboratory Tests Test 10/08/16 10:01 10/08/16 11:14 10/08/16 12:07 10/08/16 13:16 Bedside Glucose 202 177 160 243 H Test 10/08/16 14:10 10/08/16 15:06 10/08/16 15:58 10/08/16 17:06 Bedside Glucose 215 163 149 120 Test 10/08/16 18:15 10/08/16 20:06 10/08/16 21:05 10/08/16 22:57 Bedside Glucose 121 90 95 201 Test 10/09/16 00:01 10/09/16 01:15 10/09/16 02:11 10/09/16 04:13 Bedside Glucose 257 H 184 159 85 Test 10/09/16 05:00 10/09/16 05:04 10/09/16 06:02 10/09/16 06:14 White Blood Count 8.9 Red Blood Count 4.13 L Hemoglobin 11.7 L Hematocrit 37.5 L Mean Corpuscular Volume 90.8 Mean Corpuscular Hemoglobin 28.3 L Mean Corpuscular Hemoglobin Concent 31.2 L Red Cell Distribution Width 17.8 H Platelet Count 210 # Mean Platelet Volume 12.1 H Neutrophils % 70.7 Lymphocytes % 11.5 L Monocytes % 10.9 Eosinophils % 5.4 Basophils % 0.8 Nucleated Red Blood Cells % 0.5 H Neutrophils # 6.3 Lymphocytes # 1.0 Monocytes # 1.0 H Eosinophils # 0.5 Basophils # 0.1 Nucleated Red Blood Cells # 0.0 Sodium Level 135 Potassium Level 3.9 Chloride Level 92 L Carbon Dioxide Level 25 Anion Gap 22 H Blood Urea Nitrogen 87 H Creatinine 9.10 H Glucose Level 93 # Calcium Level 6.9 L Bedside Glucose 75 56 L 72 Test 10/09/16 06:27 10/09/16 06:51 10/09/16 08:45 Bedside Glucose 136 130 216 Medications Medications Current Medications Ondansetron HCl (Zofran Inj) 4 mg Q6H PRN IV NAUSEA AND/OR VOMITING; Start at 06:00 Acetaminophen (Tylenol Liquid) 650 mg Q6H PRN PO PAIN LEVEL 1-3 OR FEVER Last administered on 09/30/16 08:32; Admin Dose 650 MG; Start 09/28/16 at 06:00 Hydromorphone HCl (Dilaudid) 0.5 mg Q4H PRN IV PAIN LEVEL 7-10 Last administered on 09/30/16 23:48; Admin Dose 0.5 MG; Start 09/28/16 at 06:00 Heparin Sodium (Porcine) (Heparin (5000 Units/0.5 ml)) 5,000 unit Q12 SC Last administered on 10/08/16 21:03; Admin Dose 5,000 UNIT; Start 09/28/16 at 09:00 Miscellaneous Information 1 ea NOTE XX ; Start 09/28/16 at 06:30 Famotidine (Pepcid Iv) 20 mg DAILY IV Last administered on 10/08/16 08:29; Admin Dose 20 MG; Start 09/28/16 at 09:00 Dextrose (D50w Syringe) 25 ml Q15M PRN IV Till BS 80 mg/dL or above x2 Last administered on 10/09/16 06:26; Admin Dose 25 ML; Start 09/28/16 at 08:30 Dextrose 50 ml 50 ml Q15M PRN IV Till BS 80 mg/dL or above x2; Start 09/28/16 at 08:30 Propofol 100 ml @ 2.31 mls/hr Q12H IV Last administered on 10/08/16 23:00; Admin Dose 13.86 MLS/HR; Start 09/28/16 at 11:30 Midazolam HCl 50 ml @ 1 mls/hr TITRATE IV Last administered on 10/06/16 22:25 ; Admin Dose 1 MLS/HR; Start 09/28/16 at 11:30 Fentanyl (Sublimaze) 100 ml @ 2.5 mls/hr TITRATE IV Last administered on 16:48; Admin Dose 2.5 MLS/HR; Start 09/29/16 at 09:00 Acetaminophen (Tylenol Liquid) 650 mg Q4H PRN NGT PAIN AND OR ELEVATED TEMP Last administered on 10/06/16 23:16; Admin Dose 650 MG; Start 09/30/16 at 08:30 Prasugrel (Effient) 10 mg DAILY PO Last administered on 10/08/16 10:00; Admin Dose 10 MG; Start 10/02/16 at 09:00 Carvedilol 12.5 mg 12.5 mg BID NGT Last administered on 10/03/16 21:05; Admin Dose 12.5 MG; Start 10/02/16 at 21:00 Imipenem/ Cilastatin Sodium (Primaxin 250 Mg/ 100 ml (Pmx)) 100 ml @ 166.667 mls/hr Q12 IVPB Last administered on 10/08/16 21:01; Admin Dose 166.667 MLS/HR ; Start 10/05/16 at 21:00 Miscellaneous Information This patient osorio... PRN PRN XX WOUND CARE; Start 10/06 at 09:30 Norepinephrine 16 mg/Dextrose 500 ml @ 1.87 mls/hr TITRATE IV Last administered on 10/07/16 21:07; Admin Dose 37.5 MLS/HR; Start 10/06/16 at 12:00 Phenylephrine HCl/ Dextrose (Brice-Syneph/D5W) 500 ml @ 75 mls/hr TITRATE IV ; Start 10/06/16 at 12:00 Diagnostic Test (Pha) (Accu-Chek) 1 ea Q1H XX Last administered on 10/09/16 07 :06; Admin Dose 1 EA; Start 10/06/16 at 18:00 Calcium Carbonate 1250 mg 1,250 mg BID NGT Last administered on 10/08/16 23:26 ; Admin Dose 1,250 MG; Start 10/07/16 at 10:30 Linezolid (Zyvox 600mg/D5W (Pmx)) 300 ml @ 300 mls/hr Q12 IVPB Last administered on 10/08/16 21:01; Admin Dose 300 MLS/HR; Start 10/07/16 at 21:00 Aspirin (Aspirin) 81 mg DAILY NGT Last administered on 10/08/16 09:14; Admin Dose 81 MG; Start 10/08/16 at 09:00 Calcitriol (Calcitriol) 1 mcg DAILY IV Last administered on 10/08/16 14:45; Admin Dose 1 MCG; Start 10/08/16 at 14:00 MANE LESLIE MD Oct 09, 2016 09:13
--- NOTE | 2016-10-09 09:52 | CONS ---
Date/Time of Note Date/Time of Note DATE: 10/09/16 TIME: 09:48 Assessment/Plan Assessment/Plan Additional Assessment/Plan Ventilator settings; AC of 18, tidal volume 600, PEEP of 5, 30% FiO2. Patient currently on propofol at 30 mics per kilogram per minute, insulin drip at 6 U/h. Patient is off Levophed. Assessment recommendations; 1. Patient admitted for respiratory failure due to pulmonary edema with significant radiological improvement. 2. Possibly superimposed pneumonia. 3. End-stage renal disease. 4. Significant improvement in mental status. However patient unable to be weaned off ventilator due to low minute ventilation. Hold sedation again. Once the patient is off sedation he will be evaluated for possible weaning from ventilator. Meanwhile obtain a chest x-ray. Continue current treatment. 32 minutes of critical care time was spent evaluating the patient. Consultation Date/Type/Reason Admit Date/Time Sep 28, 2016 at 05:39 Initial Consult Date 09/28/16 Type of Consultation: Pulmonary/critical care 24 HR Interval Summary Free Text/Dictation Patient condition remains critical. Still requiring full ventilator support. Has been unable to be weaned off ventilator. General exam; middle-aged male, orally intubated, currently in no distress. Exam/Review of Systems Vital Signs Vitals Vital Signs Date Time Temp Pulse Resp B/P Pulse Ox O2 Delivery O2 Flow Rate FiO2 10/09/16 09:15 96 18 100 30 10/09/16 07:30 106/69 10/09/16 07:00 Mechanical Ventilator 10/09/16 04:00 97.2 Intake and Output 10/08/16 10/08/16 10/09/16 15:00 23:00 07:00 Intake Total 1553.74 ml 1155.61 ml 759.49 ml Output Total 2900 ml Balance -1346.26 ml 1155.61 ml 759.49 ml Exam HEENT exam is; supple neck, no JVD. No lymphadenopathy. Midline trachea. No thyromegaly. Patient has a multiple carious teeth. Orally intubated. Chest examination; diminished but clear vessel. S1-S2 audible, no murmurs. Regular rhythm. Abdomen examination; soft, nondistended. No organomegaly. Bowel sounds audible. Extremity examination; no peripheral edema. Pulses 1+ bilaterally. 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 Results Result Diagram: 10/09/16 0500 10/09/16 0500 Results 24 hrs Laboratory Tests Test 10/08/16 10:01 10/08/16 11:14 10/08/16 12:07 10/08/16 13:16 Bedside Glucose 202 177 160 243 H Test 10/08/16 14:10 10/08/16 15:06 10/08/16 15:58 10/08/16 17:06 Bedside Glucose 215 163 149 120 Test 10/08/16 18:15 10/08/16 20:06 10/08/16 21:05 10/08/16 22:57 Bedside Glucose 121 90 95 201 Test 10/09/16 00:01 10/09/16 01:15 10/09/16 02:11 10/09/16 04:13 Bedside Glucose 257 H 184 159 85 Test 10/09/16 05:00 10/09/16 05:04 10/09/16 06:02 10/09/16 06:14 White Blood Count 8.9 Red Blood Count 4.13 L Hemoglobin 11.7 L Hematocrit 37.5 L Mean Corpuscular Volume 90.8 Mean Corpuscular Hemoglobin 28.3 L Mean Corpuscular Hemoglobin Concent 31.2 L Red Cell Distribution Width 17.8 H Platelet Count 210 # Mean Platelet Volume 12.1 H Neutrophils % 70.7 Lymphocytes % 11.5 L Monocytes % 10.9 Eosinophils % 5.4 Basophils % 0.8 Nucleated Red Blood Cells % 0.5 H Neutrophils # 6.3 Lymphocytes # 1.0 Monocytes # 1.0 H Eosinophils # 0.5 Basophils # 0.1 Nucleated Red Blood Cells # 0.0 Sodium Level 135 Potassium Level 3.9 Chloride Level 92 L Carbon Dioxide Level 25 Anion Gap 22 H Blood Urea Nitrogen 87 H Creatinine 9.10 H Glucose Level 93 # Calcium Level 6.9 L Bedside Glucose 75 56 L 72 Test 10/09/16 06:27 10/09/16 06:51 10/09/16 08:45 Bedside Glucose 136 130 216 Medications Medications Current Medications Ondansetron HCl (Zofran Inj) 4 mg Q6H PRN IV NAUSEA AND/OR VOMITING; Start at 06:00 Acetaminophen (Tylenol Liquid) 650 mg Q6H PRN PO PAIN LEVEL 1-3 OR FEVER Last administered on 09/30/16t 08:32; Admin Dose 650 MG; Start 09/28/16 at 06:00 Hydromorphone HCl (Dilaudid) 0.5 mg Q4H PRN IV PAIN LEVEL 7-10 Last administered on 09/30/16 23:48; Admin Dose 0.5 MG; Start 09/28/16 at 06:00 Heparin Sodium (Porcine) (Heparin (5000 Units/0.5 ml)) 5,000 unit Q12 SC Last administered on 10/09/16 09:12; Admin Dose 5,000 UNIT; Start 09/28/16 at 09:00 Miscellaneous Information 1 ea NOTE XX ; Start 09/28/16 at 06:30 Famotidine (Pepcid Iv) 20 mg DAILY IV Last administered on 10/09/16 09:11; Admin Dose 20 MG; Start 09/28/16 at 09:00 Dextrose (D50w Syringe) 25 ml Q15M PRN IV Till BS 80 mg/dL or above x2 Last administered on 10/09/16 06:26; Admin Dose 25 ML; Start 09/28/16 at 08:30 Dextrose 50 ml 50 ml Q15M PRN IV Till BS 80 mg/dL or above x2; Start 09/28/16 at 08:30 Propofol 100 ml @ 2.31 mls/hr Q12H IV Last administered on 10/08/16 23:00; Admin Dose 13.86 MLS/HR; Start 09/28/16 at 11:30 Midazolam HCl 50 ml @ 1 mls/hr TITRATE IV Last administered on 10/06/16 22:25 ; Admin Dose 1 MLS/HR; Start 09/28/16 at 11:30 Fentanyl (Sublimaze) 100 ml @ 2.5 mls/hr TITRATE IV Last administered on 16:48; Admin Dose 2.5 MLS/HR; Start 09/29/16 at 09:00 Acetaminophen (Tylenol Liquid) 650 mg Q4H PRN NGT PAIN AND OR ELEVATED TEMP Last administered on 10/06/16 23:16; Admin Dose 650 MG; Start 09/30/16 at 08:30 Prasugrel (Effient) 10 mg DAILY PO Last administered on 10/09/16 09:10; Admin Dose 10 MG; Start 10/02/16 at 09:00 Carvedilol 12.5 mg 12.5 mg BID NGT Last administered on 10/03/16 21:05; Admin Dose 12.5 MG; Start 10/02/16 at 21:00 Imipenem/ Cilastatin Sodium (Primaxin 250 Mg/ 100 ml (Pmx)) 100 ml @ 166.667 mls/hr Q12 IVPB Last administered on 10/09/16 09:10; Admin Dose 166.667 MLS/HR ; Start 10/05/16 at 21:00 Miscellaneous Information This patient osorio... PRN PRN XX WOUND CARE; Start 10/06 at 09:30 Norepinephrine 16 mg/Dextrose 500 ml @ 1.87 mls/hr TITRATE IV Last administered on 10/07/16 21:07; Admin Dose 37.5 MLS/HR; Start 10/06/16 at 12:00 Phenylephrine HCl/ Dextrose (Brice-Syneph/D5W) 500 ml @ 75 mls/hr TITRATE IV ; Start 10/06/16 at 12:00 Diagnostic Test (Pha) (Accu-Chek) 1 ea Q1H XX Last administered on 10/09/16 08 :00; Admin Dose 1 EA; Start 10/06/16 at 18:00 Calcium Carbonate 1250 mg 1,250 mg BID NGT Last administered on 10/09/16 09:10 ; Admin Dose 1,250 MG; Start 10/07/16 at 10:30 Linezolid (Zyvox 600mg/D5W (Pmx)) 300 ml @ 300 mls/hr Q12 IVPB Last administered on 10/09/16 09:10; Admin Dose 300 MLS/HR; Start 10/07/16 at 21:00 Aspirin (Aspirin) 81 mg DAILY NGT Last administered on 10/09/16 09:10; Admin Dose 81 MG; Start 10/08/16 at 09:00 Calcitriol (Calcitriol) 1 mcg DAILY IV Last administered on 10/09/16 09:13; Admin Dose 1 MCG; Start 10/08/16 at 14:00 ELTON FELIX Oct 09, 2016 09:52
[2016-10-09] MEDS: PROPOFOL 100 ML IV SCH ×2 (11:33→19:51)
--- NOTE | 2016-10-09 14:03 | CONS ---
DATE OF ADMISSION: 09/28/2016 DATE OF CONSULTATION: CHIEF COMPLAINT: The patient is intubated, unresponsive. I follow the patient because of abnormal liver function. PHYSICAL EXAMINATION: GENERAL: He is unresponsive, intubated. VITAL SIGNS: Pulse ____ blood pressure is ____. ABDOMEN: Soft. LABORATORY WORKUP: WBC 14,900, hemoglobin 11.7. ____ liver panel is not available ____. CLINICAL IMPRESSION: The patient has a high liver function abnormality secondary to shock liver. PLAN: At this time, continue present management. Dictated By: RENAE VILCHIS MD NC/NTS Conf#: [id number] DID#: [id number] CC: WILMER RODRIGUEZ MD;*EndCC*
--- NOTE | 2016-10-09 14:59 | RADRPT ---
PROCEDURE: XR Chest. CLINICAL INDICATION: Shortness of breath. TECHNIQUE: A single portable view of the chest was obtained. COMPARISON: 10/06/2016 FINDINGS: The endotracheal tube, nasogastric tube, and left chest wall port are essentially unchanged. The ca rdiomediastinal silhouette is within normal limits. Mild diffuse interstitial markings are once agai n seen. The left hemidiaphragm is again noted to be elevated. No dense consolidation or discrete pl eural effusion is seen. The soft tissues and osseous structures are unremarkable. IMPRESSION: Mild diffuse interstitial markings again seen which are unchanged. RPTAT: HPNM Physician Stephen Date Time Electronically viewed and signed by Physician Stephen on 10/09/2016 14:59 /
--- NOTE | 2016-10-09 15:04 | CONS ---
Date/Time of Note Date/Time of Note DATE: 10/09/16 TIME: 14:56 Assessment/Plan Assessment/Plan Chief Complaint/Hosp Course ID PROGRESS NOTE TOTAL ABX DAY # 13 => Primaxin #5 + Zyvox #3 s/p Vancomycin. 2. Cefepime-> DC 10/04/16 am Vanco IV -> DC 10/07 24H INTERVAL SUMMARY * Noncommunicative on the Vent -- plan for HD today; weaned OFF Levophed * BCx (+)VRE - no fevers, WBC down * BCx 10/04/16 (+)1/2 bottles ? LIne Sepsis => FEM line DC'd PHYSICAL EXAMINATION: GENERAL: VSS, NAD, sedated on the Vent HEENT: ETT/NGT secure NECK: Supple, trach-> midline CHEST: Equal chest rise bilaterally, without dyspnea on observation HEART: Pulse RRR ABDOMEN: Soft, benign EXTREMITIES: Warm SKIN: Warm, dry (+)Multiple Tattoos ID ASSESSMENT: 51 yo M admitted with: 1. Recurrent sepsis w/ FEVER > 103 10/04, leukocytosis -> Failed ABX de- escalation attempt SAT 10/04 * Off pressors, afebrile * 10/04/16 BCx (+) 1/2 =>(+)VRE, FEM line DC'd * Status post shock on admission w/all admission cultures were negative -> ABX DC'd 10/04/16 am with recurrent sepsis within 12H 2. Respiratory failure, secondary to fluid overload, possibly aspiration event. 3. COPD - tobacco user 4. End-stage renal disease, hemodialysis dependent-> LUEXT AVF 5. History of coronary artery disease. 6. 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 Transaminitis - liver shock (-)MRSA Nares INVASIVES: * ETT, NGT, FC, left chest Port-A-Cath. ABX ALLERGIES: MACROLIDES, ERYTHROMYCIN CURRENT ABX: TOTAL ABX DAY # 13 => Primaxin #5 + Zyvox #3 dc Vanco 10/06 s/p Vancomycin. 2. Cefepime-> DC 10/04/16 am ID RECOMMENDATIONS: 1.Zyvox for VRE coverage (VRE is resistant to Ampicillin) 3. If he spike temp again -> draw BCx from the Port-A-Cath 4. Repeat sputum cx = Appears respiratory cx I ordered was not sent, have re- ordered for today * -- if negative will DC Primaxin . Problems: Consultation Date/Type/Reason Admit Date/Time Sep 28, 2016 at 05:39 Initial Consult Date 10/01/16 Type of Consultation: ID Exam/Review of Systems Vital Signs Vitals Vital Signs Date Time Temp Pulse Resp B/P Pulse Ox O2 Delivery O2 Flow Rate FiO2 10/09/16 12:30 90 19 121/72 100 10/09/16 12:00 97.7 10/09/16 11:16 30 10/09/16 08:00 Mechanical Ventilator Intake and Output 10/08/16 10/08/16 10/09/16 15:00 23:00 07:00 Intake Total 1553.74 ml 1155.61 ml 809.49 ml Output Total 2900 ml Balance -1346.26 ml 1155.61 ml 809.49 ml Results Result Diagram: 10/09/16 0500 10/09/16 0500 Results 24 hrs Laboratory Tests Test 10/08/16 15:06 10/08/16 15:58 10/08/16 17:06 10/08/16 18:15 Bedside Glucose 163 149 120 121 Test 10/08/16 20:06 10/08/16 21:05 10/08/16 22:57 10/09/16 00:01 Bedside Glucose 90 95 201 257 H Test 10/09/16 01:15 10/09/16 02:11 10/09/16 04:13 10/09/16 05:00 Bedside Glucose 184 159 85 White Blood Count 8.9 Red Blood Count 4.13 L Hemoglobin 11.7 L Hematocrit 37.5 L Mean Corpuscular Volume 90.8 Mean Corpuscular Hemoglobin 28.3 L Mean Corpuscular Hemoglobin Concent 31.2 L Red Cell Distribution Width 17.8 H Platelet Count 210 # Mean Platelet Volume 12.1 H Neutrophils % 70.7 Lymphocytes % 11.5 L Monocytes % 10.9 Eosinophils % 5.4 Basophils % 0.8 Nucleated Red Blood Cells % 0.5 H Neutrophils # 6.3 Lymphocytes # 1.0 Monocytes # 1.0 H Eosinophils # 0.5 Basophils # 0.1 Nucleated Red Blood Cells # 0.0 Sodium Level 135 Potassium Level 3.9 Chloride Level 92 L Carbon Dioxide Level 25 Anion Gap 22 H Blood Urea Nitrogen 87 H Creatinine 9.10 H Glucose Level 93 # Calcium Level 6.9 L Test 10/09/16 05:04 10/09/16 06:02 10/09/16 06:14 10/09/16 06:27 Bedside Glucose 75 56 L 72 136 Test 10/09/16 06:51 10/09/16 08:45 10/09/16 10:28 10/09/16 11:24 Bedside Glucose 130 216 181 170 Test 10/09/16 12:17 10/09/16 13:24 10/09/16 14:27 Bedside Glucose 161 212 199 Medications Medications Current Medications Ondansetron HCl (Zofran Inj) 4 mg Q6H PRN IV NAUSEA AND/OR VOMITING; Start at 06:00 Acetaminophen (Tylenol Liquid) 650 mg Q6H PRN PO PAIN LEVEL 1-3 OR FEVER Last administered on 09/30/16 08:32; Admin Dose 650 MG; Start 09/28/16 at 06:00 Hydromorphone HCl (Dilaudid) 0.5 mg Q4H PRN IV PAIN LEVEL 7-10 Last administered on 09/30/16 23:48; Admin Dose 0.5 MG; Start 09/28/16 at 06:00 Heparin Sodium (Porcine) (Heparin (5000 Units/0.5 ml)) 5,000 unit Q12 SC Last administered on 10/09/16 09:12; Admin Dose 5,000 UNIT; Start 09/28/16 at 09:00 Miscellaneous Information 1 ea NOTE XX ; Start 09/28/16 at 06:30 Famotidine (Pepcid Iv) 20 mg DAILY IV Last administered on 10/09/16 09:11; Admin Dose 20 MG; Start 09/28/16 at 09:00 Dextrose (D50w Syringe) 25 ml Q15M PRN IV Till BS 80 mg/dL or above x2 Last administered on 10/09/16 06:26; Admin Dose 25 ML; Start 09/28/16 at 08:30 Dextrose 50 ml 50 ml Q15M PRN IV Till BS 80 mg/dL or above x2; Start 09/28/16 at 08:30 Propofol 100 ml @ 2.31 mls/hr Q12H IV Last administered on 4/27/17at 11:33; Admin Dose 13.86 MLS/HR; Start 09/28/16 at 11:30 Midazolam HCl 50 ml @ 1 mls/hr TITRATE IV Last administered on 10/06/16 22:25 ; Admin Dose 1 MLS/HR; Start 09/28/16 at 11:30 Fentanyl (Sublimaze) 100 ml @ 2.5 mls/hr TITRATE IV Last administered on 16:48; Admin Dose 2.5 MLS/HR; Start 09/29/16 at 09:00 Acetaminophen (Tylenol Liquid) 650 mg Q4H PRN NGT PAIN AND OR ELEVATED TEMP Last administered on 10/06/16 23:16; Admin Dose 650 MG; Start 09/30/16 at 08:30 Prasugrel (Effient) 10 mg DAILY PO Last administered on 10/09/16 09:10; Admin Dose 10 MG; Start 10/02/16 at 09:00 Carvedilol 12.5 mg 12.5 mg BID NGT Last administered on 10/03/16 21:05; Admin Dose 12.5 MG; Start 10/02/16 at 21:00 Imipenem/ Cilastatin Sodium (Primaxin 250 Mg/ 100 ml (Pmx)) 100 ml @ 166.667 mls/hr Q12 IVPB Last administered on 10/09/16 09:10; Admin Dose 166.667 MLS/HR ; Start 10/05/16 at 21:00 Miscellaneous Information This patient osorio... PRN PRN XX WOUND CARE; Start 10/06 at 09:30 Norepinephrine 16 mg/Dextrose 500 ml @ 1.87 mls/hr TITRATE IV Last administered on 10/07/16 21:07; Admin Dose 37.5 MLS/HR; Start 10/06/16 at 12:00 Phenylephrine HCl/ Dextrose (Brice-Syneph/D5W) 500 ml @ 75 mls/hr TITRATE IV ; Start 10/06/16 at 12:00 Diagnostic Test (Pha) (Accu-Chek) 1 ea Q1H XX Last administered on 10/09/16 14 :27; Admin Dose 1 EA; Start 10/06/16 at 18:00 Calcium Carbonate 1250 mg 1,250 mg BID NGT Last administered on 10/09/16 09:10 ; Admin Dose 1,250 MG; Start 10/07/16 at 10:30 Linezolid (Zyvox 600mg/D5W (Pmx)) 300 ml @ 300 mls/hr Q12 IVPB Last administered on 10/09/16 09:10; Admin Dose 300 MLS/HR; Start 10/07/16 at 21:00 Aspirin (Aspirin) 81 mg DAILY NGT Last administered on 10/09/16 09:10; Admin Dose 81 MG; Start 10/08/16 at 09:00 Calcitriol (Calcitriol) 1 mcg DAILY IV Last administered on 10/09/16 09:13; Admin Dose 1 MCG; Start 10/08/16 at 14:00 MISA CROFT NP Oct 09, 2016 15:04
--- NOTE | 2016-10-09 19:51 | RADRPT ---
Echocardiogram Report Patient Name: XOCHILT SAUCEOD Gender: Male Date: 1965 Study Date: 08-Oct-2016 Shirt Finisher: [facility] Location: [id number] Ref. Physician: LOLA STEPHEN Quality: Technically Difficult Study Procedures: Transthoracic echocardiogram with complete 2D, M-Mode, and doppler examination. Indications: Coronary Artery Disease, RESP FAILURE. 2D/M Mode Doppler Measurement Value Normal Ranges Measurement Value Normal Ranges LVIDd 2D 4.4 3.5 - 5.6 cm AV Peak Mitesh 1.7 m/sec LVIDs 2D 3.4 2.1 - 4.1 cm AV Peak PG 10.9 mmHg LVPWd 2D 0.9 0.6 - 1.1 cm LVOT Peak Mitesh 1.4 m/sec IVSd 2D 1.1 0.6 - 1.1 cm LVOT Peak PG 8.2 mmHg AoR Diam 2D 3.1 2.0 - 3.7 cm MV E Peak Mitesh 0.6 m/sec EDV 2D 88.1 cm3 MV A Peak Mitesh 0.8 m/sec ESV 2D 38.3 cm3 MV E/A 0.8 LA Dimen 2D 3.2 2.3 - 4.0 cm MV Decel Time 238 msec MV Decel [place] 3 MV E/A 0.8 Findings Left Ventricle: Normal left ventricular systolic function. Normal left ventricular cavity size. Normal left ventricular wall thickness. Ejection fraction is visually estimated at 50 %. Right Ventricle: Normal right ventricular size. Normal right ventricular systolic function. Left Atrium: The left atrium is normal in size. Right Atrium: The right atrium is normal in size. Mitral Valve: Mild mitral annular calcification. Aortic Valve: Aortic cusps appear mildly calcified. Tricuspid Valve: Tricuspid valve not well visualized. There is trace tricuspid regurgitation. Pericardium: Normal pericardium with no significant pericardial effusion. Aorta: Normal aortic root. IVC: Inferior vena cava without respiratory collapse, however, patient on ventilator. Conclusions 1.Normal left ventricular systolic function. Normal left ventricular cavity size. Normal left ventricular wall thickness. Ejection fraction is visually estimated at 50 %. 2.Mild mitral annular calcification. 3.Aortic cusps appear mildly calcified. 4.Tricuspid valve not well visualized. There is trace tricuspid regurgitation. Electronically Signed By: Lola Stephen 09-Oct-2016 19:50:28 -0700 Patient Name: XOCHILT SAUCEDO Study Date: 08-Oct-2016 [id number]
--- NOTE | 2016-10-09 19:56 | CONS ---
Date/Time of Note Date/Time of Note DATE: 10/09/16 TIME: 19:55 Consult Date/Type/Reason Admit Date/Time Sep 28, 2016 at 05:39 Initial Consult Date 10/01/16 Type of Consultation: Card and Vasc Int Objective Vital Signs Date Time Temp Pulse Resp B/P Pulse Ox O2 Delivery O2 Flow Rate FiO2 10/09/16 19:30 94 32 118/73 100 10/09/16 19:00 97.8 10/09/16 17:30 30 10/09/16 08:00 Mechanical Ventilator Intake and Output 10/08/16 10/08/16 10/09/16 15:00 23:00 07:00 Intake Total 1553.74 ml 1155.61 ml 809.49 ml Output Total 2900 ml Balance -1346.26 ml 1155.61 ml 809.49 ml Results/Medications Result Diagram: 10/09/16 0500 10/09/16 0500 Results 24 hrs Laboratory Tests Test 10/08/16 20:06 10/08/16 21:05 10/08/16 22:57 10/09/16 00:01 Bedside Glucose 90 95 201 257 H Test 10/09/16 01:15 10/09/16 02:11 10/09/16 04:13 10/09/16 05:00 Bedside Glucose 184 159 85 White Blood Count 8.9 Red Blood Count 4.13 L Hemoglobin 11.7 L Hematocrit 37.5 L Mean Corpuscular Volume 90.8 Mean Corpuscular Hemoglobin 28.3 L Mean Corpuscular Hemoglobin Concent 31.2 L Red Cell Distribution Width 17.8 H Platelet Count 210 # Mean Platelet Volume 12.1 H Neutrophils % 70.7 Lymphocytes % 11.5 L Monocytes % 10.9 Eosinophils % 5.4 Basophils % 0.8 Nucleated Red Blood Cells % 0.5 H Neutrophils # 6.3 Lymphocytes # 1.0 Monocytes # 1.0 H Eosinophils # 0.5 Basophils # 0.1 Nucleated Red Blood Cells # 0.0 Sodium Level 135 Potassium Level 3.9 Chloride Level 92 L Carbon Dioxide Level 25 Anion Gap 22 H Blood Urea Nitrogen 87 H Creatinine 9.10 H Glucose Level 93 # Calcium Level 6.9 L Test 10/09/16 05:04 10/09/16 06:02 10/09/16 06:14 10/09/16 06:27 Bedside Glucose 75 56 L 72 136 Test 10/09/16 06:51 10/09/16 08:45 10/09/16 10:28 10/09/16 11:24 Bedside Glucose 130 216 181 170 Test 10/09/16 12:17 10/09/16 13:24 10/09/16 14:27 10/09/16 15:26 Bedside Glucose 161 212 199 165 Test 10/09/16 16:33 10/09/16 17:46 10/09/16 19:11 Bedside Glucose 134 106 122 Medications Current Medications Ondansetron HCl (Zofran Inj) 4 mg Q6H PRN IV NAUSEA AND/OR VOMITING; Start at 06:00 Acetaminophen (Tylenol Liquid) 650 mg Q6H PRN PO PAIN LEVEL 1-3 OR FEVER Last administered on 09/30/16 08:32; Admin Dose 650 MG; Start 09/28/16 at 06:00 Hydromorphone HCl (Dilaudid) 0.5 mg Q4H PRN IV PAIN LEVEL 7-10 Last administered on 09/30/16 23:48; Admin Dose 0.5 MG; Start 09/28/16 at 06:00 Heparin Sodium (Porcine) (Heparin (5000 Units/0.5 ml)) 5,000 unit Q12 SC Last administered on 10/09/16 09:12; Admin Dose 5,000 UNIT; Start 09/28/16 at 09:00 Miscellaneous Information 1 ea NOTE XX ; Start 09/28/16 at 06:30 Famotidine (Pepcid Iv) 20 mg DAILY IV Last administered on 10/09/16 09:11; Admin Dose 20 MG; Start 09/28/16 at 09:00 Dextrose (D50w Syringe) 25 ml Q15M PRN IV Till BS 80 mg/dL or above x2 Last administered on 10/09/16 06:26; Admin Dose 25 ML; Start 09/28/16 at 08:30 Dextrose 50 ml 50 ml Q15M PRN IV Till BS 80 mg/dL or above x2; Start 09/28/16 at 08:30 Propofol 100 ml @ 2.31 mls/hr Q12H IV Last administered on 10/09/16 19:51; Admin Dose 13.86 MLS/HR; Start 09/28/16 at 11:30 Midazolam HCl 50 ml @ 1 mls/hr TITRATE IV Last administered on 10/06/16 22:25 ; Admin Dose 1 MLS/HR; Start 09/28/16 at 11:30 Fentanyl (Sublimaze) 100 ml @ 2.5 mls/hr TITRATE IV Last administered on 16:48; Admin Dose 2.5 MLS/HR; Start 09/29/16 at 09:00 Acetaminophen (Tylenol Liquid) 650 mg Q4H PRN NGT PAIN AND OR ELEVATED TEMP Last administered on 10/06/16 23:16; Admin Dose 650 MG; Start 09/30/16 at 08:30 Prasugrel (Effient) 10 mg DAILY PO Last administered on 10/09/16 09:10; Admin Dose 10 MG; Start 10/02/16 at 09:00 Carvedilol 12.5 mg 12.5 mg BID NGT Last administered on 10/03/16 21:05; Admin Dose 12.5 MG; Start 10/02/16 at 21:00 Imipenem/ Cilastatin Sodium (Primaxin 250 Mg/ 100 ml (Pmx)) 100 ml @ 166.667 mls/hr Q12 IVPB Last administered on 10/09/16 09:10; Admin Dose 166.667 MLS/HR ; Start 10/05/16 at 21:00 Miscellaneous Information This patient osorio... PRN PRN XX WOUND CARE; Start 10/06 at 09:30 Norepinephrine 16 mg/Dextrose 500 ml @ 1.87 mls/hr TITRATE IV Last administered on 10/07/16 21:07; Admin Dose 37.5 MLS/HR; Start 10/06/16 at 12:00 Phenylephrine HCl/ Dextrose (Brice-Syneph/D5W) 500 ml @ 75 mls/hr TITRATE IV ; Start 10/06/16 at 12:00 Diagnostic Test (Pha) (Accu-Chek) 1 ea Q1H XX Last administered on 10/09/16 19 :52; Admin Dose 1 EA; Start 10/06/16 at 18:00 Calcium Carbonate 1250 mg 1,250 mg BID NGT Last administered on 10/09/16 09:10 ; Admin Dose 1,250 MG; Start 10/07/16 at 10:30 Linezolid (Zyvox 600mg/D5W (Pmx)) 300 ml @ 300 mls/hr Q12 IVPB Last administered on 10/09/16 09:10; Admin Dose 300 MLS/HR; Start 10/07/16 at 21:00 Aspirin (Aspirin) 81 mg DAILY NGT Last administered on 10/09/16 09:10; Admin Dose 81 MG; Start 10/08/16 at 09:00 Calcitriol (Calcitriol) 1 mcg DAILY IV Last administered on 10/09/16 09:13; Admin Dose 1 MCG; Start 10/08/16 at 14:00 Assessment/Plan Chief Complaint/Hosp Course Patient is know pt to me, he has CAD with s/p PCI of LAD HAM CURER by me, PTCA and stenting of Right SFA as well as Left SFA, ESRD on HD, HTN, DM on insulin pump, who came in to ER with pulm edema and acute rest failure, intubated in ICU now. mild elevated trop and non ischemic EKG. Problems: Additional Assessment/Plan Pt LVEF is 50% CAD PAD treated by me in past Rest Failure and failing weaning Pulm on case and palnning to have family meeting on him. contineu HD will fu CYNDIE GARCIA MD Oct 09, 2016 19:56
[2016-10-10] VITALS (84 sets, daily range): BP systolic 91–139; BP diastolic 61–90; PULSE 81–108; RESP 0–46
[2016-10-10] MEDS: ACCU-CHEK XX SCH ×22 (01:19→23:00)
[2016-10-10] MEDS: PROPOFOL 100 ML IV SCH ×4 (03:11→20:55)
[2016-10-10 04:58] LABS: ADD SCAN DIFF NO
[2016-10-10 05:03] LABS: BASOPHIL # 0.1 10^3/ul (0.0-0.1); BASOPHILS % 0.6 % (0.0-2.0); EOSINOPHILS # 0.4 10^3/ul (0.0-0.5); EOSINOPHILS % 4.8 % (0.0-7.0); HEMATOCRIT 34.1 % (42.0-52.0); HEMOGLOBIN 10.8 g/dl (14.0-18.0); LYMPHOCYTES # 0.8 10^3/ul (0.8-2.9); LYMPHOCYTES % 9.8 % (15.0-51.0); MEAN CORPUSCULAR HEMOGLOBIN 28.8 pg (29.0-33.0); MEAN CORPUSCULAR HGB CONC 31.7 g/dl (32.0-37.0); MEAN CORPUSCULAR VOLUME 90.9 fl (82.0-101.0); MEAN PLATELET VOLUME 12.8 fl (7.4-10.4); MONOCYTE # 0.7 10^3/ul (0.3-0.9); MONOCYTES % 8.9 % (0.0-11.0); NEUTROPHIL # 6.3 10^3/ul (1.6-7.5); NEUTROPHILS % 75.7 % (39.0-77.0); PLATELET COUNT 187 10^3/UL (140-415); RED BLOOD COUNT 3.75 10^6/ul (4.70-6.10); RED CELL DISTRIBUTION WIDTH 17.7 % (11.5-14.5); WHITE BLOOD COUNT 8.3 10^3/ul (4.8-10.8)
[2016-10-10 05:26] LABS: ALBUMIN 3.1 g/dl (3.3-4.9); CALCIUM 6.4 mg/dl (8.4-10.2); POTASSIUM 4.9 mmol/L (3.5-5.1); TOTAL PROTEIN 6.2 g/dl (6.1-8.1)
[2016-10-10 05:35] LABS: CREATININE 9.89 mg/dl (0.61-1.24)
--- NOTE | 2016-10-10 09:14 | CONS ---
Date/Time of Note Date/Time of Note DATE: 10/10/16 TIME: 09:12 Assessment/Plan Assessment/Plan Additional Assessment/Plan 1. CKD, now being dialyzed, next HD Thursday 2. Ventilator dependent 3. DM, sugars noted Consultation Date/Type/Reason Admit Date/Time Sep 28, 2016 at 05:39 Initial Consult Date 10/01/16 Type of Consultation: Card and Vasc Int 24 HR Interval Summary Subjective hx not possible: pt non-verbal, other (sedated) Exam/Review of Systems Vital Signs Vitals Vital Signs Date Time Temp Pulse Resp B/P Pulse Ox O2 Delivery O2 Flow Rate FiO2 10/10/16 08:15 95 20 124/80 100 10/10/16 08:00 98.7 Mechanical Ventilator 10/10/16 07:42 30 Intake and Output 10/09/16 10/09/16 10/10/16 15:00 23:00 07:00 Intake Total 997.02 ml 860.88 ml 634.38 ml Balance 997.02 ml 860.88 ml 634.38 ml Exam Neck: No jvd Respiratory: diminished breath sounds Cardiovascular: regular rate and rhythm Gastrointestinal: soft Extremities: No edema (lower extrem bilat) Results Result Diagram: 10/10/16 0430 10/10/16 0430 Results 24 hrs Laboratory Tests Test 10/09/16 10:28 10/09/16 11:24 10/09/16 12:17 10/09/16 13:24 Bedside Glucose 181 170 161 212 Test 10/09/16 14:27 10/09/16 15:26 10/09/16 16:33 10/09/16 17:46 Bedside Glucose 199 165 134 106 Test 10/09/16 19:11 10/09/16 19:53 10/09/16 20:49 10/09/16 21:54 Bedside Glucose 122 129 125 133 Test 10/09/16 22:58 10/09/16 23:43 10/10/16 01:18 10/10/16 02:06 Bedside Glucose 152 153 101 86 Test 10/10/16 03:24 10/10/16 03:31 10/10/16 03:58 10/10/16 04:30 Bedside Glucose 128 134 131 White Blood Count 8.3 Red Blood Count 3.75 L Hemoglobin 10.8 L Hematocrit 34.1 L Mean Corpuscular Volume 90.9 Mean Corpuscular Hemoglobin 28.8 L Mean Corpuscular Hemoglobin Concent 31.7 L Red Cell Distribution Width 17.7 H Platelet Count 187 Mean Platelet Volume 12.8 H Neutrophils % 75.7 Lymphocytes % 9.8 L Monocytes % 8.9 Eosinophils % 4.8 Basophils % 0.6 Nucleated Red Blood Cells % 0.0 Neutrophils # 6.3 Lymphocytes # 0.8 Monocytes # 0.7 Eosinophils # 0.4 Basophils # 0.1 Nucleated Red Blood Cells # 0.0 Sodium Level 129 L Potassium Level 4.9 Chloride Level 93 L Carbon Dioxide Level 22 Anion Gap 19 H Blood Urea Nitrogen 100 H Creatinine 9.89 H Glucose Level 132 Calcium Level 6.4 L Total Bilirubin 0.0 L Direct Bilirubin 0.00 Indirect Bilirubin 0.0 Aspartate Amino Transf (AST/SGOT) 402 H Alanine Aminotransferase (ALT/SGPT) 594 H Alkaline Phosphatase 357 H Total Protein 6.2 Albumin 3.1 L Globulin 3.10 Albumin/Globulin Ratio 1.00 Test 10/10/16 05:14 10/10/16 05:53 10/10/16 06:49 10/10/16 08:11 Bedside Glucose 136 126 113 119 Medications Medications Current Medications Ondansetron HCl (Zofran Inj) 4 mg Q6H PRN IV NAUSEA AND/OR VOMITING; Start at 06:00 Acetaminophen (Tylenol Liquid) 650 mg Q6H PRN PO PAIN LEVEL 1-3 OR FEVER Last administered on 09/30/16 08:32; Admin Dose 650 MG; Start 09/28/16 at 06:00 Hydromorphone HCl (Dilaudid) 0.5 mg Q4H PRN IV PAIN LEVEL 7-10 Last administered on 09/30/16 23:48; Admin Dose 0.5 MG; Start 09/28/16 at 06:00 Heparin Sodium (Porcine) (Heparin (5000 Units/0.5 ml)) 5,000 unit Q12 SC Last administered on 10/09/16 20:39; Admin Dose 5,000 UNIT; Start 09/28/16 at 09:00 Miscellaneous Information 1 ea NOTE XX ; Start 09/28/16 at 06:30 Famotidine (Pepcid Iv) 20 mg DAILY IV Last administered on 10/09/16 09:11; Admin Dose 20 MG; Start 09/28/16 at 09:00 Dextrose (D50w Syringe) 25 ml Q15M PRN IV Till BS 80 mg/dL or above x2 Last administered on 10/09/16 06:26; Admin Dose 25 ML; Start 09/28/16 at 08:30 Dextrose 50 ml 50 ml Q15M PRN IV Till BS 80 mg/dL or above x2; Start 09/28/16 at 08:30 Propofol 100 ml @ 2.31 mls/hr Q12H IV Last administered on 10/10/16 03:11; Admin Dose 13.86 MLS/HR; Start 09/28/16 at 11:30 Midazolam HCl 50 ml @ 1 mls/hr TITRATE IV Last administered on 10/06/16 22:25 ; Admin Dose 1 MLS/HR; Start 09/28/16 at 11:30 Fentanyl (Sublimaze) 100 ml @ 2.5 mls/hr TITRATE IV Last administered on 16:48; Admin Dose 2.5 MLS/HR; Start 09/29/16 at 09:00 Acetaminophen (Tylenol Liquid) 650 mg Q4H PRN NGT PAIN AND OR ELEVATED TEMP Last administered on 10/06/16 23:16; Admin Dose 650 MG; Start 09/30/16 at 08:30 Prasugrel (Effient) 10 mg DAILY PO Last administered on 10/09/16 09:10; Admin Dose 10 MG; Start 10/02/16 at 09:00 Carvedilol 12.5 mg 12.5 mg BID NGT Last administered on 10/09/16 20:33; Admin Dose 12.5 MG; Start 10/02/16 at 21:00 Imipenem/ Cilastatin Sodium (Primaxin 250 Mg/ 100 ml (Pmx)) 100 ml @ 166.667 mls/hr Q12 IVPB Last administered on 10/09/16 20:30; Admin Dose 166.667 MLS/HR ; Start 10/05/16 at 21:00 Miscellaneous Information This patient osorio... PRN PRN XX WOUND CARE; Start 10/06 at 09:30 Norepinephrine 16 mg/Dextrose 500 ml @ 1.87 mls/hr TITRATE IV Last administered on 10/07/16 21:07; Admin Dose 37.5 MLS/HR; Start 10/06/16 at 12:00 Phenylephrine HCl/ Dextrose (Brice-Syneph/D5W) 500 ml @ 75 mls/hr TITRATE IV ; Start 10/06/16 at 12:00 Diagnostic Test (Pha) (Accu-Chek) 1 ea Q1H XX Last administered on 10/10/16 08 :12; Admin Dose 1 EA; Start 10/06/16 at 18:00 Calcium Carbonate 1250 mg 1,250 mg BID NGT Last administered on 10/09/16 20:33 ; Admin Dose 1,250 MG; Start 10/07/16 at 10:30 Linezolid (Zyvox 600mg/D5W (Pmx)) 300 ml @ 300 mls/hr Q12 IVPB Last administered on 10/09/16 21:34; Admin Dose 300 MLS/HR; Start 10/07/16 at 21:00 Aspirin (Aspirin) 81 mg DAILY NGT Last administered on 10/09/16 09:10; Admin Dose 81 MG; Start 10/08/16 at 09:00 Calcitriol (Calcitriol) 1 mcg DAILY IV Last administered on 10/09/16 09:13; Admin Dose 1 MCG; Start 10/08/16 at 14:00 MANE LESLIE MD Oct 10, 2016 09:14
--- NOTE | 2016-10-10 09:29 | CONS ---
Date/Time of Note Date/Time of Note DATE: 10/10/16 TIME: 09:26 Assessment/Plan Assessment/Plan Additional Assessment/Plan Ventilator settings; AC of 18, tidal volume 600, PEEP of 5, 30% FiO2. Chest x-ray was reviewed from yesterday afternoon which is essentially clear. Patient currently on propofol at 40 mics per kilogram per minute. He has been off Levophed. Assessment recommendations; next 1. Patient admitted with respiratory failure due to pulmonary edema and pneumonia. 2. Marked neurologic improvement. 3. Improved mental status as well. 4. Failure to be weaned off ventilator due to copious amount of secretions coming through the endotracheal tube. 5. End-stage renal disease, on hemodialysis. Continue current supportive care. Patient likely would need to have a tracheostomy performed. We will assess over the next 48 hours if the patient is able to be extubated. Prognosis is guarded. 35 minutes of critical care time was spent evaluating the patient. Consultation Date/Type/Reason Admit Date/Time Sep 28, 2016 at 05:39 Initial Consult Date 09/28/16 Type of Consultation: Pulmonary/critical care 24 HR Interval Summary Free Text/Dictation Patient condition remains critical. Has been unable to be weaned off ventilator due to copious amount of secretions coming out through the endotracheal tube. Requiring very frequent suctioning. Patient however has remained hemodynamically stable. General exam; middle-aged male, orally intubated, sedated, currently in no distress. Exam/Review of Systems Vital Signs Vitals Vital Signs Date Time Temp Pulse Resp B/P Pulse Ox O2 Delivery O2 Flow Rate FiO2 10/10/16 08:15 95 20 124/80 100 10/10/16 08:00 98.7 Mechanical Ventilator 10/10/16 07:42 30 Intake and Output 10/09/16 10/09/16 10/10/16 15:00 23:00 07:00 Intake Total 997.02 ml 860.88 ml 634.38 ml Balance 997.02 ml 860.88 ml 634.38 ml Exam HEENT examination; supple neck, no JVD. No lymphadenopathy. Midline trachea. No thyromegaly. Orally intubated. Chest examined; scattered crackles bilaterally. S1-S2 audible, no murmurs. Regular rhythm. Abdomen examination; soft, nondistended. No organomegaly. Bowel sounds audible. Extremity examination; no peripheral edema. Pulses 1+ bilaterally. SWITCH [employer]ER examination; patient is sedated. Results Result Diagram: 10/10/16 0430 10/10/16 0430 Results 24 hrs Laboratory Tests Test 10/09/16 10:28 10/09/16 11:24 10/09/16 12:17 10/09/16 13:24 Bedside Glucose 181 170 161 212 Test 10/09/16 14:27 10/09/16 15:26 10/09/16 16:33 10/09/16 17:46 Bedside Glucose 199 165 134 106 Test 10/09/16 19:11 10/09/16 19:53 10/09/16 20:49 10/09/16 21:54 Bedside Glucose 122 129 125 133 Test 10/09/16 22:58 10/09/16 23:43 10/10/16 01:18 10/10/16 02:06 Bedside Glucose 152 153 101 86 Test 10/10/16 03:24 10/10/16 03:31 10/10/16 03:58 10/10/16 04:30 Bedside Glucose 128 134 131 White Blood Count 8.3 Red Blood Count 3.75 L Hemoglobin 10.8 L Hematocrit 34.1 L Mean Corpuscular Volume 90.9 Mean Corpuscular Hemoglobin 28.8 L Mean Corpuscular Hemoglobin Concent 31.7 L Red Cell Distribution Width 17.7 H Platelet Count 187 Mean Platelet Volume 12.8 H Neutrophils % 75.7 Lymphocytes % 9.8 L Monocytes % 8.9 Eosinophils % 4.8 Basophils % 0.6 Nucleated Red Blood Cells % 0.0 Neutrophils # 6.3 Lymphocytes # 0.8 Monocytes # 0.7 Eosinophils # 0.4 Basophils # 0.1 Nucleated Red Blood Cells # 0.0 Sodium Level 129 L Potassium Level 4.9 Chloride Level 93 L Carbon Dioxide Level 22 Anion Gap 19 H Blood Urea Nitrogen 100 H Creatinine 9.89 H Glucose Level 132 Calcium Level 6.4 L Total Bilirubin 0.0 L Direct Bilirubin 0.00 Indirect Bilirubin 0.0 Aspartate Amino Transf (AST/SGOT) 402 H Alanine Aminotransferase (ALT/SGPT) 594 H Alkaline Phosphatase 357 H Total Protein 6.2 Albumin 3.1 L Globulin 3.10 Albumin/Globulin Ratio 1.00 Test 10/10/16 05:14 10/10/16 05:53 10/10/16 06:49 10/10/16 08:11 Bedside Glucose 136 126 113 119 Medications Medications Current Medications Ondansetron HCl (Zofran Inj) 4 mg Q6H PRN IV NAUSEA AND/OR VOMITING; Start at 06:00 Acetaminophen (Tylenol Liquid) 650 mg Q6H PRN PO PAIN LEVEL 1-3 OR FEVER Last administered on 09/30/16 08:32; Admin Dose 650 MG; Start 09/28/16 at 06:00 Hydromorphone HCl (Dilaudid) 0.5 mg Q4H PRN IV PAIN LEVEL 7-10 Last administered on 09/30/16 23:48; Admin Dose 0.5 MG; Start 09/28/16 at 06:00 Heparin Sodium (Porcine) (Heparin (5000 Units/0.5 ml)) 5,000 unit Q12 SC Last administered on 10/09/16 20:39; Admin Dose 5,000 UNIT; Start 09/28/16 at 09:00 Miscellaneous Information 1 ea NOTE XX ; Start 09/28/16 at 06:30 Famotidine (Pepcid Iv) 20 mg DAILY IV Last administered on 10/09/16 09:11; Admin Dose 20 MG; Start 09/28/16 at 09:00 Dextrose (D50w Syringe) 25 ml Q15M PRN IV Till BS 80 mg/dL or above x2 Last administered on 10/09/16 06:26; Admin Dose 25 ML; Start 09/28/16 at 08:30 Dextrose 50 ml 50 ml Q15M PRN IV Till BS 80 mg/dL or above x2; Start 09/28/16 at 08:30 Propofol 100 ml @ 2.31 mls/hr Q12H IV Last administered on 10/10/16 03:11; Admin Dose 13.86 MLS/HR; Start 09/28/16 at 11:30 Midazolam HCl 50 ml @ 1 mls/hr TITRATE IV Last administered on 10/06/16 22:25 ; Admin Dose 1 MLS/HR; Start 09/28/16 at 11:30 Fentanyl (Sublimaze) 100 ml @ 2.5 mls/hr TITRATE IV Last administered on 16:48; Admin Dose 2.5 MLS/HR; Start 09/29/16 at 09:00 Acetaminophen (Tylenol Liquid) 650 mg Q4H PRN NGT PAIN AND OR ELEVATED TEMP Last administered on 10/06/16 23:16; Admin Dose 650 MG; Start 09/30/16 at 08:30 Prasugrel (Effient) 10 mg DAILY PO Last administered on 10/09/16 09:10; Admin Dose 10 MG; Start 10/02/16 at 09:00 Carvedilol 12.5 mg 12.5 mg BID NGT Last administered on 10/09/16 20:33; Admin Dose 12.5 MG; Start 10/02/16 at 21:00 Imipenem/ Cilastatin Sodium (Primaxin 250 Mg/ 100 ml (Pmx)) 100 ml @ 166.667 mls/hr Q12 IVPB Last administered on 10/09/16 20:30; Admin Dose 166.667 MLS/HR ; Start 10/05/16 at 21:00 Miscellaneous Information This patient osorio... PRN PRN XX WOUND CARE; Start 10/06 at 09:30 Norepinephrine 16 mg/Dextrose 500 ml @ 1.87 mls/hr TITRATE IV Last administered on 10/07/16 21:07; Admin Dose 37.5 MLS/HR; Start 10/06/16 at 12:00 Phenylephrine HCl/ Dextrose (Brice-Syneph/D5W) 500 ml @ 75 mls/hr TITRATE IV ; Start 10/06/16 at 12:00 Diagnostic Test (Pha) (Accu-Chek) 1 ea Q1H XX Last administered on 10/10/16 08 :12; Admin Dose 1 EA; Start 10/06/16 at 18:00 Calcium Carbonate 1250 mg 1,250 mg BID NGT Last administered on 10/09/16 20:33 ; Admin Dose 1,250 MG; Start 10/07/16 at 10:30 Linezolid (Zyvox 600mg/D5W (Pmx)) 300 ml @ 300 mls/hr Q12 IVPB Last administered on 10/09/16 21:34; Admin Dose 300 MLS/HR; Start 10/07/16 at 21:00 Aspirin (Aspirin) 81 mg DAILY NGT Last administered on 10/09/16 09:10; Admin Dose 81 MG; Start 10/08/16 at 09:00 Calcitriol (Calcitriol) 1 mcg DAILY IV Last administered on 10/09/16t 09:13; Admin Dose 1 MCG; Start 10/08/16 at 14:00 ELTON FELIX Oct 10, 2016 09:29
[2016-10-10] MEDS: CA CARBONATE (250 MG/ML) 5ML CUP NGT SCH ×2 (11:09→20:50)
[2016-10-10] MEDS: ASPIRIN 81 MG TAB NGT SCH (11:09)
[2016-10-10] MEDS: FAMOTIDINE 20 MG INJ IV SCH (11:09)
[2016-10-10] MEDS: PRASUGREL HYDROCHLORIDE 10 MG TABLET PO SCH (11:09)
[2016-10-10] MEDS: CALCITRIOL 1 MCG INJ IV SCH (11:10)
[2016-10-10] MEDS: LINEZOLID 600 MG/D5W (PMX) 300 ML IVPB SCH ×2 (11:10→20:50)
[2016-10-10] MEDS: HEPARIN 5,000 UNIT/0.5 ML VIAL SC SCH ×2 (11:11→20:52)
[2016-10-10] MEDS: INSULIN HUMAN REGULAR 100 UNIT in SOD CHLORIDE 0.9% 99 ML IV SCH ×2 (11:53→22:07)
--- NOTE | 2016-10-10 13:05 | PN ---
Date/Time of Note Date/Time of Note DATE: 10/10/16 TIME: 13:02 Assessment/Plan VTE Prophylaxis VTE Prophylaxis Intervention: SCD's Lines/Catheters IV [facility] Type [facility]from [facility] Peripheral IV Urinary Cath still in place: No Assessment/Plan Chief Complaint/Hosp Course ASSESSMENT AND PLAN: - Acute respiratory failure, requiring oral intubation and ventilatory support secondary to pulmonary edema. Dr. Nunez is following in pulmonology consultation. Continue ventilator support. Weaning per pulm. - Septic shock, resolving. - VRE bacteremia, continue Zyvox, continue antibiotics per ID. - End-stage renal disease, hemodialysis dependent. Dr. Hubbard is following the patient in nephrology consultation. Continue the hemodialysis per nephrology. - Diabetes mellitus type [address] Garay is following endocrinology consultation. Continue patient on insulin drip. - Peripheral arterial disease, status post vascular intervention. Continue Eliquis. - Anemia of chronic disease. Continue Epogen. - Coronary artery disease. Dr. Stephen is following in cardiology consultation. - Possible healthcare acquired pneumonia. Continue antibiotics per ID. Dr. Allison is following in ID consultation. - Possible sepsis secondary to pneumonia. Continue IV fluids and pressors for hemodynamic support, ICU care. - Transaminitis, Dr. Britt is following in gastroenterology consultation Continue heparin for deep venous thrombosis prophylaxis and Pepcid for peptic ulcer disease prophylaxis. Further recommendations based on clinical course. Plan of care discussed with Dr. Rosales. Problems: Subjective 24 Hr Interval Summary Free Text/Dictation off pressors, on vent support, failed weaning multiple times, sedated, on Insulin gtt. Exam/Review of Systems Vital Signs Vitals Vital Signs Date Time Temp Pulse Resp B/P Pulse Ox O2 Delivery O2 Flow Rate FiO2 10/10/16 12:00 98.1 18 107/69 100 Mechanical Ventilator 10/10/16 11:40 82 30 Intake and Output 10/09/16 10/09/16 10/10/16 15:00 23:00 07:00 Intake Total 997.02 ml 860.88 ml 634.38 ml Balance 997.02 ml 860.88 ml 634.38 ml Exam GENERAL: Well-developed, well-nourished gentleman currently orally intubated on vent support, obtunded. HEENT: Head is atraumatic, normocephalic. Patient has a right eye prosthesis. Left eye pupil is equal, round, sluggishly reactive to light and accommodation. NECK: Supple, no cervical lymphadenopathy, no thyromegaly. CHEST: Lung sounds diminished at the bases. Scattered rhonchi bilaterally. Patient has a left chest Port-A-Cath. CARDIOVASCULAR: Normal S1, S2. No murmurs, gallops, clicks, rubs noted. ABDOMEN: Round, soft, nondistended, nontender. Bowel sounds present. EXTREMITIES: There is mild edema. There is no clubbing, cyanosis. Left upper extremity with AV graft. SKIN: No rash, petechiae noted. NEUROLOGIC: Patient is obtunded. Results Result Diagram: 10/10/16 0430 10/10/16 0430 Results 24 hrs Laboratory Tests Test 10/09/16 13:24 10/09/16 14:27 10/09/16 15:26 10/09/16 16:33 Bedside Glucose 212 199 165 134 Test 10/09/16 17:46 10/09/16 19:11 10/09/16 19:53 10/09/16 20:49 Bedside Glucose 106 122 129 125 Test 10/09/16 21:54 10/09/16 22:58 10/09/16 23:43 10/10/16 01:18 Bedside Glucose 133 152 153 101 Test 10/10/16 02:06 10/10/16 03:24 10/10/16 03:31 10/10/16 03:58 Bedside Glucose 86 128 134 131 Test 10/10/16 04:30 10/10/16 05:14 10/10/16 05:53 10/10/16 06:49 White Blood Count 8.3 Red Blood Count 3.75 L Hemoglobin 10.8 L Hematocrit 34.1 L Mean Corpuscular Volume 90.9 Mean Corpuscular Hemoglobin 28.8 L Mean Corpuscular Hemoglobin Concent 31.7 L Red Cell Distribution Width 17.7 H Platelet Count 187 Mean Platelet Volume 12.8 H Neutrophils % 75.7 Lymphocytes % 9.8 L Monocytes % 8.9 Eosinophils % 4.8 Basophils % 0.6 Nucleated Red Blood Cells % 0.0 Neutrophils # 6.3 Lymphocytes # 0.8 Monocytes # 0.7 Eosinophils # 0.4 Basophils # 0.1 Nucleated Red Blood Cells # 0.0 Sodium Level 129 L Potassium Level 4.9 Chloride Level 93 L Carbon Dioxide Level 22 Anion Gap 19 H Blood Urea Nitrogen 100 H Creatinine 9.89 H Glucose Level 132 Calcium Level 6.4 L Total Bilirubin 0.0 L Direct Bilirubin 0.00 Indirect Bilirubin 0.0 Aspartate Amino Transf (AST/SGOT) 402 H Alanine Aminotransferase (ALT/SGPT) 594 H Alkaline Phosphatase 357 H Total Protein 6.2 Albumin 3.1 L Globulin 3.10 Albumin/Globulin Ratio 1.00 Bedside Glucose 136 126 113 Test 10/10/16 08:11 10/10/16 10:18 10/10/16 11:06 10/10/16 12:13 Bedside Glucose 119 159 180 183 Medications Medications Current Medications Ondansetron HCl (Zofran Inj) 4 mg Q6H PRN IV NAUSEA AND/OR VOMITING; Start at 06:00 Acetaminophen (Tylenol Liquid) 650 mg Q6H PRN PO PAIN LEVEL 1-3 OR FEVER Last administered on 09/30/16 08:32; Admin Dose 650 MG; Start 09/28/16 at 06:00 Hydromorphone HCl (Dilaudid) 0.5 mg Q4H PRN IV PAIN LEVEL 7-10 Last administered on 09/30/16 23:48; Admin Dose 0.5 MG; Start 09/28/16 at 06:00 Heparin Sodium (Porcine) (Heparin (5000 Units/0.5 ml)) 5,000 unit Q12 SC Last administered on 10/10/16 11:11; Admin Dose 5,000 UNIT; Start 09/28/16 at 09:00 Miscellaneous Information 1 ea NOTE XX ; Start 09/28/16 at 06:30 Famotidine (Pepcid Iv) 20 mg DAILY IV Last administered on 10/10/16 11:09; Admin Dose 20 MG; Start 09/28/16 at 09:00 Dextrose (D50w Syringe) 25 ml Q15M PRN IV Till BS 80 mg/dL or above x2 Last administered on 10/09/16 06:26; Admin Dose 25 ML; Start 09/28/16 at 08:30 Dextrose 50 ml 50 ml Q15M PRN IV Till BS 80 mg/dL or above x2; Start 09/28/16 at 08:30 Propofol 100 ml @ 2.31 mls/hr Q12H IV Last administered on 10/10/16 09:39; Admin Dose 18.48 MLS/HR; Start 09/28/16 at 11:30 Midazolam HCl 50 ml @ 1 mls/hr TITRATE IV Last administered on 10/06/16 22:25 ; Admin Dose 1 MLS/HR; Start 09/28/16 at 11:30 Fentanyl (Sublimaze) 100 ml @ 2.5 mls/hr TITRATE IV Last administered on 16:48; Admin Dose 2.5 MLS/HR; Start 09/29/16 at 09:00 Acetaminophen (Tylenol Liquid) 650 mg Q4H PRN NGT PAIN AND OR ELEVATED TEMP Last administered on 10/06/16 23:16; Admin Dose 650 MG; Start 09/30/16 at 08:30 Prasugrel (Effient) 10 mg DAILY PO Last administered on 10/10/16 11:09; Admin Dose 10 MG; Start 10/02/16 at 09:00 Carvedilol 12.5 mg 12.5 mg BID NGT Last administered on 10/09/16 20:33; Admin Dose 12.5 MG; Start 10/02/16 at 21:00 Imipenem/ Cilastatin Sodium (Primaxin 250 Mg/ 100 ml (Pmx)) 100 ml @ 166.667 mls/hr Q12 IVPB Last administered on 10/09/16 20:30; Admin Dose 166.667 MLS/HR ; Start 10/05/16 at 21:00 Miscellaneous Information This patient osorio... PRN PRN XX WOUND CARE; Start 10/06 at 09:30 Norepinephrine 16 mg/Dextrose 500 ml @ 1.87 mls/hr TITRATE IV Last administered on 10/07/16 21:07; Admin Dose 37.5 MLS/HR; Start 10/06/16 at 12:00 Phenylephrine HCl/ Dextrose (Brice-Syneph/D5W) 500 ml @ 75 mls/hr TITRATE IV ; Start 10/06/16 at 12:00 Diagnostic Test (Pha) (Accu-Chek) 1 ea Q1H XX Last administered on 10/10/16 12 :13; Admin Dose 1 EA; Start 10/06/16 at 18:00 Calcium Carbonate 1250 mg 1,250 mg BID NGT Last administered on 10/10/16 11:09 ; Admin Dose 1,250 MG; Start 10/07/16 at 10:30 Linezolid (Zyvox 600mg/D5W (Pmx)) 300 ml @ 300 mls/hr Q12 IVPB Last administered on 10/10/16 11:10; Admin Dose 300 MLS/HR; Start 10/07/16 at 21:00 Aspirin (Aspirin) 81 mg DAILY NGT Last administered on 10/10/16 11:09; Admin Dose 81 MG; Start 10/08/16 at 09:00 Calcitriol (Calcitriol) 1 mcg DAILY IV Last administered on 10/10/16 11:10; Admin Dose 1 MCG; Start 10/08/16 at 14:00 ANGELINA CASTREJON Oct 10, 2016 13:05
--- NOTE | 2016-10-10 14:51 | CONS ---
Date/Time of Note Date/Time of Note DATE: 10/10/16 TIME: 14:48 Assessment/Plan Assessment/Plan Problems: (1) Respiratory failure Status: Acute Comment: Patient has not been able to be weaned and very likely will end up needing tracheostomy. This is significantly unfortunate turn given his otherwise rather significant underlying multiple medical problems of all other organ systems. Remains on tube feedings now. 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 Will titrate to effect (3) End stage renal failure on dialysis Status: Chronic Comment: As per nephrology (4) HTN (hypertension) Status: Chronic Comment: Stable and controlled Qualifiers: Hypertension type: essential hypertension Qualified Code: I10 - Essential hypertension Consultation Date/Type/Reason Admit Date/Time Sep 28, 2016 at 05:39 Initial Consult Date 09/28/16 Type of Consultation: Endocrinology Reason for Consultation Diabetes mellitus type 1 with multiple complications 24 HR Interval Summary Free Text/Dictation Patient is intubated on ventilator. Receiving tube feeding Subjective hx not possible: pt critical Exam/Review of Systems Vital Signs Vitals Vital Signs Date Time Temp Pulse Resp B/P Pulse Ox O2 Delivery O2 Flow Rate FiO2 10/10/16 14:15 94 10/10/16 13:52 18 100 30 10/10/16 13:00 105/67 Mechanical Ventilator 10/10/16 12:00 98.1 Intake and Output 10/09/16 10/09/16 10/10/16 15:00 23:00 07:00 Intake Total 997.02 ml 860.88 ml 634.38 ml Balance 997.02 ml 860.88 ml 634.38 ml Exam Please see dictations from my colleagues concur with her physical exam Results Result Diagram: 10/10/16 0430 10/10/16 0430 Results 24 hrs Laboratory Tests Test 10/09/16 15:26 10/09/16 16:33 10/09/16 17:46 10/09/16 19:11 Bedside Glucose 165 134 106 122 Test 10/09/16 19:53 10/09/16 20:49 10/09/16 21:54 10/09/16 22:58 Bedside Glucose 129 125 133 152 Test 10/09/16 23:43 10/10/16 01:18 10/10/16 02:06 10/10/16 03:24 Bedside Glucose 153 101 86 128 Test 10/10/16 03:31 10/10/16 03:58 10/10/16 04:30 10/10/16 05:14 Bedside Glucose 134 131 136 White Blood Count 8.3 Red Blood Count 3.75 L Hemoglobin 10.8 L Hematocrit 34.1 L Mean Corpuscular Volume 90.9 Mean Corpuscular Hemoglobin 28.8 L Mean Corpuscular Hemoglobin Concent 31.7 L Red Cell Distribution Width 17.7 H Platelet Count 187 Mean Platelet Volume 12.8 H Neutrophils % 75.7 Lymphocytes % 9.8 L Monocytes % 8.9 Eosinophils % 4.8 Basophils % 0.6 Nucleated Red Blood Cells % 0.0 Neutrophils # 6.3 Lymphocytes # 0.8 Monocytes # 0.7 Eosinophils # 0.4 Basophils # 0.1 Nucleated Red Blood Cells # 0.0 Sodium Level 129 L Potassium Level 4.9 Chloride Level 93 L Carbon Dioxide Level 22 Anion Gap 19 H Blood Urea Nitrogen 100 H Creatinine 9.89 H Glucose Level 132 Calcium Level 6.4 L Total Bilirubin 0.0 L Direct Bilirubin 0.00 Indirect Bilirubin 0.0 Aspartate Amino Transf (AST/SGOT) 402 H Alanine Aminotransferase (ALT/SGPT) 594 H Alkaline Phosphatase 357 H Total Protein 6.2 Albumin 3.1 L Globulin 3.10 Albumin/Globulin Ratio 1.00 Test 10/10/16 05:53 10/10/16 06:49 10/10/16 08:11 10/10/16 10:18 Bedside Glucose 126 113 119 159 Test 10/10/16 11:06 10/10/16 12:13 10/10/16 13:23 10/10/16 14:36 Bedside Glucose 180 183 139 133 Medications Medications Current Medications Ondansetron HCl (Zofran Inj) 4 mg Q6H PRN IV NAUSEA AND/OR VOMITING; Start at 06:00 Acetaminophen (Tylenol Liquid) 650 mg Q6H PRN PO PAIN LEVEL 1-3 OR FEVER Last administered on 09/30/16t 08:32; Admin Dose 650 MG; Start 09/28/16 at 06:00 Hydromorphone HCl (Dilaudid) 0.5 mg Q4H PRN IV PAIN LEVEL 7-10 Last administered on 09/30/16 23:48; Admin Dose 0.5 MG; Start 09/28/16 at 06:00 Heparin Sodium (Porcine) (Heparin (5000 Units/0.5 ml)) 5,000 unit Q12 SC Last administered on 10/10/16 11:11; Admin Dose 5,000 UNIT; Start 09/28/16 at 09:00 Miscellaneous Information 1 ea NOTE XX ; Start 09/28/16 at 06:30 Famotidine (Pepcid Iv) 20 mg DAILY IV Last administered on 10/10/16 11:09; Admin Dose 20 MG; Start 09/28/16 at 09:00 Dextrose (D50w Syringe) 25 ml Q15M PRN IV Till BS 80 mg/dL or above x2 Last administered on 10/09/16 06:26; Admin Dose 25 ML; Start 09/28/16 at 08:30 Dextrose 50 ml 50 ml Q15M PRN IV Till BS 80 mg/dL or above x2; Start 09/28/16 at 08:30 Propofol 100 ml @ 2.31 mls/hr Q12H IV Last administered on 10/10/16 14:45; Admin Dose 18.48 MLS/HR; Start 09/28/16 at 11:30 Midazolam HCl 50 ml @ 1 mls/hr TITRATE IV Last administered on 10/06/16 22:25 ; Admin Dose 1 MLS/HR; Start 09/28/16 at 11:30 Fentanyl (Sublimaze) 100 ml @ 2.5 mls/hr TITRATE IV Last administered on 16:48; Admin Dose 2.5 MLS/HR; Start 09/29/16 at 09:00 Acetaminophen (Tylenol Liquid) 650 mg Q4H PRN NGT PAIN AND OR ELEVATED TEMP Last administered on 10/06/16 23:16; Admin Dose 650 MG; Start 09/30/16 at 08:30 Prasugrel (Effient) 10 mg DAILY PO Last administered on 10/10/16 11:09; Admin Dose 10 MG; Start 10/02/16 at 09:00 Carvedilol 12.5 mg 12.5 mg BID NGT Last administered on 10/09/16 20:33; Admin Dose 12.5 MG; Start 10/02/16 at 21:00 Imipenem/ Cilastatin Sodium (Primaxin 250 Mg/ 100 ml (Pmx)) 100 ml @ 166.667 mls/hr Q12 IVPB Last administered on 10/09/16 20:30; Admin Dose 166.667 MLS/HR ; Start 10/05/16 at 21:00 Miscellaneous Information This patient osorio... PRN PRN XX WOUND CARE; Start 10/06 at 09:30 Norepinephrine 16 mg/Dextrose 500 ml @ 1.87 mls/hr TITRATE IV Last administered on 10/07/16 21:07; Admin Dose 37.5 MLS/HR; Start 10/06/16 at 12:00 Phenylephrine HCl/ Dextrose (Brice-Syneph/D5W) 500 ml @ 75 mls/hr TITRATE IV ; Start 10/06/16 at 12:00 Diagnostic Test (Pha) (Accu-Chek) 1 ea Q1H XX Last administered on 10/10/16 14 :42; Admin Dose 1 EA; Start 10/06/16 at 18:00 Calcium Carbonate 1250 mg 1,250 mg BID NGT Last administered on 10/10/16 11:09 ; Admin Dose 1,250 MG; Start 10/07/16 at 10:30 Linezolid (Zyvox 600mg/D5W (Pmx)) 300 ml @ 300 mls/hr Q12 IVPB Last administered on 10/10/16 11:10; Admin Dose 300 MLS/HR; Start 10/07/16 at 21:00 Aspirin (Aspirin) 81 mg DAILY NGT Last administered on 10/10/16 11:09; Admin Dose 81 MG; Start 10/08/16 at 09:00 Calcitriol (Calcitriol) 1 mcg DAILY IV Last administered on 10/10/16 11:10; Admin Dose 1 MCG; Start 10/08/16 at 14:00 DEBBY BURT MD Oct 10, 2016 14:51
[2016-10-10] MEDS ORDERED: INSULIN GLARGINE [LANtus] 3 ML PEN SC ONE (15:00)
--- NOTE | 2016-10-10 15:00 | CONS ---
Date/Time of Note Date/Time of Note DATE: 10/10/16 TIME: 14:57 Assessment/Plan Assessment/Plan Chief Complaint/Hosp Course ID PROGRESS NOTE TOTAL ABX DAY # 14 => Primaxin #6 + Zyvox #4 s/p Vancomycin. 2. Cefepime-> DC 10/04/16 am Vanco IV -> DC 10/07 24H INTERVAL SUMMARY * Pt is noncommunicative on the Vent -- unable to wean needs Trach/Peg, Mother was contacted by SW who requested wait until Thursday see if he can be weaned off the Vent * CXR 10/10/16 Mild diffuse interstitial markings again seen which are unchanged. * BCx (+)VRE - no fevers, WBC down * BCx 10/04/16 (+)1/2 bottles ? LIne Sepsis => FEM line DC'd PHYSICAL EXAMINATION: GENERAL: VSS, NAD, sedated on the Vent HEENT: ETT/NGT secure NECK: Supple, trach-> midline CHEST: Equal chest rise bilaterally, without dyspnea on observation HEART: Pulse RRR ABDOMEN: Soft, benign EXTREMITIES: Warm SKIN: Warm, dry (+)Multiple Tattoos ID ASSESSMENT: 51 yo M admitted with: 1. Recurrent sepsis w/ FEVER > 103 10/04, leukocytosis -> Failed ABX de- escalation attempt SAT 10/04 * Off pressors, afebrile * 10/04/16 BCx (+) 1/2 =>(+)VRE, FEM line DC'd * Status post shock on admission w/all admission cultures were negative -> ABX DC'd 10/04/16 am with recurrent sepsis within 12H 2. Respiratory failure, secondary to fluid overload, possibly aspiration event. 3. COPD - tobacco user 4. End-stage renal disease, hemodialysis dependent-> LUEXT AVF 5. History of coronary artery disease. 6. 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 Transaminitis - liver shock (-)MRSA Nares INVASIVES: * ETT, NGT, FC, left chest Port-A-Cath. ABX ALLERGIES: MACROLIDES, ERYTHROMYCIN CURRENT ABX: TOTAL ABX DAY # 13 => Primaxin #5 + Zyvox #3 dc Vanco /24 s/p Vancomycin. 2. Cefepime-> DC 10/04/16 am ID RECOMMENDATIONS: 1.Zyvox for VRE coverage (VRE is resistant to Ampicillin) 3. If he spike temp again -> draw BCx from the Port-A-Cath 4. Repeat sputum cx = Appears respiratory cx I ordered was not sent, have re- ordered for today * -- if negative will DC Primaxin 5. Unable to wean needs Trach/Peg, Mother was contacted by SW who requested wait until Thursday see if he can be weaned off the Vent . . Problems: Consultation Date/Type/Reason Admit Date/Time Sep 28, 2016 at 05:39 Initial Consult Date 10/01/16 Type of Consultation: ID Exam/Review of Systems Vital Signs Vitals Vital Signs Date Time Temp Pulse Resp B/P Pulse Ox O2 Delivery O2 Flow Rate FiO2 10/10/16 14:15 94 10/10/16 13:52 18 100 30 10/10/16 13:00 105/67 Mechanical Ventilator 10/10/16 12:00 98.1 Intake and Output 10/09/16 10/09/16 10/10/16 15:00 23:00 07:00 Intake Total 997.02 ml 860.88 ml 634.38 ml Balance 997.02 ml 860.88 ml 634.38 ml Results Result Diagram: 10/10/16 0430 10/10/16 0430 Results 24 hrs Laboratory Tests Test 10/09/16 15:26 10/09/16 16:33 10/09/16 17:46 10/09/16 19:11 Bedside Glucose 165 134 106 122 Test 10/09/16 19:53 10/09/16 20:49 10/09/16 21:54 10/09/16 22:58 Bedside Glucose 129 125 133 152 Test 10/09/16 23:43 10/10/16 01:18 10/10/16 02:06 10/10/16 03:24 Bedside Glucose 153 101 86 128 Test 10/10/16 03:31 10/10/16 03:58 10/10/16 04:30 10/10/16 05:14 Bedside Glucose 134 131 136 White Blood Count 8.3 Red Blood Count 3.75 L Hemoglobin 10.8 L Hematocrit 34.1 L Mean Corpuscular Volume 90.9 Mean Corpuscular Hemoglobin 28.8 L Mean Corpuscular Hemoglobin Concent 31.7 L Red Cell Distribution Width 17.7 H Platelet Count 187 Mean Platelet Volume 12.8 H Neutrophils % 75.7 Lymphocytes % 9.8 L Monocytes % 8.9 Eosinophils % 4.8 Basophils % 0.6 Nucleated Red Blood Cells % 0.0 Neutrophils # 6.3 Lymphocytes # 0.8 Monocytes # 0.7 Eosinophils # 0.4 Basophils # 0.1 Nucleated Red Blood Cells # 0.0 Sodium Level 129 L Potassium Level 4.9 Chloride Level 93 L Carbon Dioxide Level 22 Anion Gap 19 H Blood Urea Nitrogen 100 H Creatinine 9.89 H Glucose Level 132 Calcium Level 6.4 L Total Bilirubin 0.0 L Direct Bilirubin 0.00 Indirect Bilirubin 0.0 Aspartate Amino Transf (AST/SGOT) 402 H Alanine Aminotransferase (ALT/SGPT) 594 H Alkaline Phosphatase 357 H Total Protein 6.2 Albumin 3.1 L Globulin 3.10 Albumin/Globulin Ratio 1.00 Test 10/10/16 05:53 10/10/16 06:49 10/10/16 08:11 10/10/16 10:18 Bedside Glucose 126 113 119 159 Test 10/10/16 11:06 10/10/16 12:13 10/10/16 13:23 10/10/16 14:36 Bedside Glucose 180 183 139 133 Medications Medications Current Medications Ondansetron HCl (Zofran Inj) 4 mg Q6H PRN IV NAUSEA AND/OR VOMITING; Start at 06:00 Acetaminophen (Tylenol Liquid) 650 mg Q6H PRN PO PAIN LEVEL 1-3 OR FEVER Last administered on 09/30/16 08:32; Admin Dose 650 MG; Start 09/28/16 at 06:00 Hydromorphone HCl (Dilaudid) 0.5 mg Q4H PRN IV PAIN LEVEL 7-10 Last administered on 09/30/16 23:48; Admin Dose 0.5 MG; Start 09/28/16 at 06:00 Heparin Sodium (Porcine) (Heparin (5000 Units/0.5 ml)) 5,000 unit Q12 SC Last administered on 10/10/16 11:11; Admin Dose 5,000 UNIT; Start 09/28/16 at 09:00 Miscellaneous Information 1 ea NOTE XX ; Start 09/28/16 at 06:30 Famotidine (Pepcid Iv) 20 mg DAILY IV Last administered on 10/10/16 11:09; Admin Dose 20 MG; Start 09/28/16 at 09:00 Dextrose (D50w Syringe) 25 ml Q15M PRN IV Till BS 80 mg/dL or above x2 Last administered on 10/09/16 06:26; Admin Dose 25 ML; Start 09/28/16 at 08:30 Dextrose 50 ml 50 ml Q15M PRN IV Till BS 80 mg/dL or above x2; Start 09/28/16 at 08:30 Propofol 100 ml @ 2.31 mls/hr Q12H IV Last administered on 10/10/16 14:45; Admin Dose 18.48 MLS/HR; Start 09/28/16 at 11:30 Midazolam HCl 50 ml @ 1 mls/hr TITRATE IV Last administered on 10/06/16 22:25 ; Admin Dose 1 MLS/HR; Start 09/28/16 at 11:30 Fentanyl (Sublimaze) 100 ml @ 2.5 mls/hr TITRATE IV Last administered on 16:48; Admin Dose 2.5 MLS/HR; Start 09/29/16 at 09:00 Acetaminophen (Tylenol Liquid) 650 mg Q4H PRN NGT PAIN AND OR ELEVATED TEMP Last administered on 10/06/16 23:16; Admin Dose 650 MG; Start 09/30/16 at 08:30 Prasugrel (Effient) 10 mg DAILY PO Last administered on 10/10/16 11:09; Admin Dose 10 MG; Start 10/02/16 at 09:00 Carvedilol 12.5 mg 12.5 mg BID NGT Last administered on 10/09/16 20:33; Admin Dose 12.5 MG; Start 10/02/16 at 21:00 Imipenem/ Cilastatin Sodium (Primaxin 250 Mg/ 100 ml (Pmx)) 100 ml @ 166.667 mls/hr Q12 IVPB Last administered on 10/09/16 20:30; Admin Dose 166.667 MLS/HR ; Start 10/05/16 at 21:00 Miscellaneous Information This patient osorio... PRN PRN XX WOUND CARE; Start 10/06 at 09:30 Norepinephrine 16 mg/Dextrose 500 ml @ 1.87 mls/hr TITRATE IV Last administered on 10/07/16 21:07; Admin Dose 37.5 MLS/HR; Start 10/06/16 at 12:00 Phenylephrine HCl/ Dextrose (Brice-Syneph/D5W) 500 ml @ 75 mls/hr TITRATE IV ; Start 10/06/16 at 12:00 Diagnostic Test (Pha) (Accu-Chek) 1 ea Q1H XX Last administered on 10/10/16 14 :42; Admin Dose 1 EA; Start 10/06/16 at 18:00 Calcium Carbonate 1250 mg 1,250 mg BID NGT Last administered on 10/10/16 11:09 ; Admin Dose 1,250 MG; Start 10/07/16 at 10:30 Linezolid (Zyvox 600mg/D5W (Pmx)) 300 ml @ 300 mls/hr Q12 IVPB Last administered on 10/10/16 11:10; Admin Dose 300 MLS/HR; Start 10/07/16 at 21:00 Aspirin (Aspirin) 81 mg DAILY NGT Last administered on 10/10/16 11:09; Admin Dose 81 MG; Start 10/08/16 at 09:00 Calcitriol (Calcitriol) 1 mcg DAILY IV Last administered on 10/10/16 11:10; Admin Dose 1 MCG; Start 10/08/16 at 14:00 Insulin Glargine (Lantus) 21 unit BID@08,20 SC ; Start 10/10/16 at 20:00 Insulin Glargine (Lantus) 10 unit ONCE ONCE SC ; Start 10/10/16 at 15:00; Stop 10/10/16 at 15:01 MISA CROFT NP Oct 10, 2016 15:00
[2016-10-10] MEDS ORDERED: GLUCOSE GEL 15 GRAM TUBE PO PRN ×2 (15:30)
[2016-10-10] MEDS ORDERED: GLUCOSE GEL 15 GRAM TUBE BUCCAL PRN (15:30)
[2016-10-10] MEDS ORDERED: DEXTROSE 50% 50 ML SYRINGE IV PRN ×3 (15:30→21:30)
[2016-10-10] MEDS ORDERED: GLUCAGON 1 MG INJ IM PRN (15:30)
[2016-10-10] MEDS: IMIPENEM-CILAST 250MG IV (PMX) 100 ML IVPB SCH ×2 (16:44→20:50)
[2016-10-10] MEDS ORDERED: DIPHENOXYLATE/ATROPINE 5 ML CUP NGT PRN (18:00)
[2016-10-10] MEDS ORDERED: INSULIN GLARGINE [LANtus] 3 ML PEN SC SCH (20:00)
[2016-10-10] MEDS ORDERED: INSULIN ASPART [NOVOLOG] 3 ML PEN SC SCH (21:00)
[2016-10-11] VITALS (85 sets, daily range): BP systolic 85–163; BP diastolic 52–94; PULSE 76–118; RESP 9–24
[2016-10-11] MEDS: ACCU-CHEK XX SCH ×23 (00:02→23:00)
[2016-10-11] MEDS: PROPOFOL 100 ML IV SCH ×5 (01:20→19:42)
[2016-10-11 04:58] LABS: ADD SCAN DIFF NO
[2016-10-11 05:07] LABS: BASOPHILS % 0.7 % (0.0-2.0); EOSINOPHILS # 0.4 10^3/ul (0.0-0.5); EOSINOPHILS % 6.3 % (0.0-7.0); HEMATOCRIT 30.7 % (42.0-52.0); LYMPHOCYTES # 0.8 10^3/ul (0.8-2.9); LYMPHOCYTES % 14.8 % (15.0-51.0); MEAN CORPUSCULAR HEMOGLOBIN 29.6 pg (29.0-33.0); MEAN CORPUSCULAR HGB CONC 32.6 g/dl (32.0-37.0); MEAN CORPUSCULAR VOLUME 90.8 fl (82.0-101.0); MEAN PLATELET VOLUME 12.6 fl (7.4-10.4); MONOCYTE # 0.5 10^3/ul (0.3-0.9); MONOCYTES % 9.6 % (0.0-11.0); NEUTROPHIL # 3.8 10^3/ul (1.6-7.5); NEUTROPHILS % 68.1 % (39.0-77.0); PLATELET COUNT 180 10^3/UL (140-415); RED BLOOD COUNT 3.38 10^6/ul (4.70-6.10); RED CELL DISTRIBUTION WIDTH 17.5 % (11.5-14.5); WHITE BLOOD COUNT 5.6 10^3/ul (4.8-10.8)
[2016-10-11 05:12] LABS: POTASSIUM 3.6 mmol/L (3.5-5.1)
[2016-10-11 05:14] LABS: CREATININE 9.1 mg/dl (0.61-1.24)
[2016-10-11 05:15] LABS: CALCIUM 6.7 mg/dl (8.4-10.2)
--- NOTE | 2016-10-11 08:56 | CONS ---
Date/Time of Note Date/Time of Note DATE: 10/11/16 TIME: 08:53 Assessment/Plan Assessment/Plan Additional Assessment/Plan Ventilator settings; AC of 18, tidal volume 500, PEEP of 5, 30% FiO2. Patient has been maintained on propofol at 40 mics per kilogram per minute, he was taken off sedation short while ago to assess mental status and also to assess whether patient is ready to be weaned off ventilator. Assessment recommendations; 1. Patient admitted for pulmonary edema pneumonia. 2. Significant improvement in mental status. 3. End-stage renal disease, on hemodialysis. 4. Persistent significant copious secretions from endotracheal tube. Continue current treatment. Re-sedated the patient. Obtain follow-up chest x- ray in 24 hours. Patient currently is not in a position to be extubated. I did have a very detailed discussion the patient's mother yesterday and apprised her of her son's condition. I recommended to her that we should wait at least another 24-48 hours before deciding about tracheostomy. Prognosis is guarded. Consultation Date/Type/Reason Admit Date/Time Sep 28, 2016 at 05:39 Initial Consult Date 09/28/16 Type of Consultation: Pulmonary/critical care 24 HR Interval Summary Free Text/Dictation Patient condition remains critical. Remains intubated. Patient still having copious secretions from endotracheal tube that is precluding weaning from ventilator. Patient mental status however is improved. Exam; middle-aged male, orally intubated, awake, patient appears agitated off sedation. Exam/Review of Systems Vital Signs Vitals Vital Signs Date Time Temp Pulse Resp B/P Pulse Ox O2 Delivery O2 Flow Rate FiO2 10/11/16 08:00 110 18 111/69 100 Mechanical Ventilator 10/11/16 07:30 98.9 10/11/16 07:11 30 Intake and Output 10/10/16 10/10/16 10/11/16 15:00 23:00 07:00 Intake Total 1029.66 ml 1160.74 ml 568.86 ml Output Total 2700 ml Balance 1029.66 ml -1539.26 ml 568.86 ml Exam HEENT exam is; supple neck, no JVD. No lymphadenopathy. Midline trachea. No thyromegaly. Orally intubated. Pupils are midsize and reactive to light. Multiple carious teeth. Chest examination; diminished but clear vessel. S1-S2 audible, no murmurs. Regular rhythm. Abdomen examination; soft, non-distended. No organomegaly. Bowel sounds audible. Extremity examination; no peripheral edema. Pulses 1+ bilaterally. SPRAY TECHNICIAN examination; patient is awake and follows simple commands moves all 4 extremities. Results Result Diagram: 10/11/16 0430 10/11/16 0430 Results 24 hrs Laboratory Tests Test 10/10/16 10:18 10/10/16 11:06 10/10/16 12:13 10/10/16 13:23 Bedside Glucose 159 180 183 139 Test 10/10/16 14:36 10/10/16 15:37 10/10/16 16:47 10/10/16 18:24 Bedside Glucose 133 135 108 96 Test 10/10/16 20:21 10/10/16 21:59 10/11/16 00:01 10/11/16 01:02 Bedside Glucose 82 133 229 H 227 H Test 10/11/16 01:52 10/11/16 03:14 10/11/16 04:05 10/11/16 04:30 Bedside Glucose 171 134 92 White Blood Count 5.6 # Red Blood Count 3.38 L Hemoglobin 10.0 L Hematocrit 30.7 L Mean Corpuscular Volume 90.8 Mean Corpuscular Hemoglobin 29.6 Mean Corpuscular Hemoglobin Concent 32.6 Red Cell Distribution Width 17.5 H Platelet Count 180 Mean Platelet Volume 12.6 H Neutrophils % 68.1 Lymphocytes % 14.8 L Monocytes % 9.6 Eosinophils % 6.3 Basophils % 0.7 Nucleated Red Blood Cells % 0.0 Neutrophils # 3.8 Lymphocytes # 0.8 Monocytes # 0.5 Eosinophils # 0.4 Basophils # 0.0 Nucleated Red Blood Cells # 0.0 Sodium Level 135 Potassium Level 3.6 Chloride Level 95 L Carbon Dioxide Level 24 Anion Gap 20 H Blood Urea Nitrogen 85 H Creatinine 9.10 H Glucose Level 81 # Calcium Level 6.7 L Phosphorus Level 7.7 H Test 10/11/16 05:04 10/11/16 05:59 10/11/16 08:18 Bedside Glucose 78 104 209 Medications Medications Current Medications Ondansetron HCl (Zofran Inj) 4 mg Q6H PRN IV NAUSEA AND/OR VOMITING; Start at 06:00 Acetaminophen (Tylenol Liquid) 650 mg Q6H PRN PO PAIN LEVEL 1-3 OR FEVER Last administered on 09/30/16 08:32; Admin Dose 650 MG; Start 09/28/16 at 06:00 Hydromorphone HCl (Dilaudid) 0.5 mg Q4H PRN IV PAIN LEVEL 7-10 Last administered on 09/30/16 23:48; Admin Dose 0.5 MG; Start 09/28/16 at 06:00 Heparin Sodium (Porcine) (Heparin (5000 Units/0.5 ml)) 5,000 unit Q12 SC Last administered on 10/10/16 20:52; Admin Dose 5,000 UNIT; Start 09/28/16 at 09:00 Famotidine 20 mg 20 mg DAILY IV Last administered on 10/10/16 11:09; Admin Dose 20 MG; Start 09/28/16 at 09:00 Propofol 100 ml @ 2.31 mls/hr Q12H IV Last administered on 10/11/16 08:47; Admin Dose 18.48 MLS/HR; Start 09/28/16 at 11:30 Midazolam HCl 50 ml @ 1 mls/hr TITRATE IV Last administered on 10/06/16 22:25 ; Admin Dose 1 MLS/HR; Start 09/28/16 at 11:30 Fentanyl (Sublimaze) 100 ml @ 2.5 mls/hr TITRATE IV Last administered on 16:48; Admin Dose 2.5 MLS/HR; Start 09/29/16 at 09:00 Acetaminophen (Tylenol Liquid) 650 mg Q4H PRN NGT PAIN AND OR ELEVATED TEMP Last administered on 10/06/16 23:16; Admin Dose 650 MG; Start 09/30/16 at 08:30 Prasugrel (Effient) 10 mg DAILY PO Last administered on 10/10/16 11:09; Admin Dose 10 MG; Start 10/02/16 at 09:00 Carvedilol 12.5 mg 12.5 mg BID NGT Last administered on 10/10/16 20:51; Admin Dose 12.5 MG; Start 10/02/16 at 21:00 Imipenem/ Cilastatin Sodium (Primaxin 250 Mg/ 100 ml (Pmx)) 100 ml @ 166.667 mls/hr Q12 IVPB Last administered on 10/10/16 20:50; Admin Dose 166.667 MLS/HR ; Start 10/05/16 at 21:00 Miscellaneous Information This patient osorio... PRN PRN XX WOUND CARE; Start 10/06 at 09:30 Norepinephrine 16 mg/Dextrose 500 ml @ 1.87 mls/hr TITRATE IV Last administered on 10/07/16 21:07; Admin Dose 37.5 MLS/HR; Start 10/06/16 at 12:00 Phenylephrine HCl/ Dextrose (Brice-Syneph/D5W) 500 ml @ 75 mls/hr TITRATE IV ; Start 10/06/16 at 12:00 Calcium Carbonate 1250 mg 1,250 mg BID NGT Last administered on 10/10/16 20:50 ; Admin Dose 1,250 MG; Start 10/07/16 at 10:30 Linezolid (Zyvox 600mg/D5W (Pmx)) 300 ml @ 300 mls/hr Q12 IVPB Last administered on 10/10/16 20:50; Admin Dose 300 MLS/HR; Start 10/07/16 at 21:00 Aspirin (Aspirin) 81 mg DAILY NGT Last administered on 10/10/16 11:09; Admin Dose 81 MG; Start 10/08/16 at 09:00 Calcitriol (Calcitriol) 1 mcg DAILY IV Last administered on 10/10/16 11:10; Admin Dose 1 MCG; Start 10/08/16 at 14:00 Miscellaneous Information 1 ea NOTE XX ; Start 10/10/16 at 15:30 Glucose (Glutose) 15 gm Q15M PRN PO DECREASED GLUCOSE; Start 10/10/16 at 15:30 Glucose (Glutose) 22.5 gm Q15M PRN PO DECREASED GLUCOSE; Start 10/10/16 at 15: 30 Dextrose (D50w Syringe) 25 ml Q15M PRN IV DECREASED GLUCOSE; Start 10/10/16 at 15:30 Dextrose (D50w Syringe) 50 ml Q15M PRN IV DECREASED GLUCOSE; Start 10/10/16 at 15:30 Glucagon (Glucagen) 1 mg Q15M PRN IM DECREASED GLUCOSE; Start 10/10/16 at 15:30 Glucose (Glutose) 15 gm Q15M PRN BUCCAL DECREASED GLUCOSE; Start 10/10/16 at 15 :30 Diphenoxylate HCl/ Atropine (Lomotil Liquid Cup) 10 ml Q8H PRN NGT LOOSE STOOLS ; Start 10/10/16 at 18:00 Diagnostic Test (Pha) (Accu-Chek) 1 ea Q1H XX Last administered on 10/11/16t 05 :55; Admin Dose 1 EA; Start 10/10/16 at 22:00 Dextrose (D50w Syringe) 25 ml Q15M PRN IV Till BS 80 mg/dL or above x2; Start 10/10/16 at 21:30 Dextrose (D50w Syringe) 50 ml Q15M PRN IV Till BS 80 mg/dL or above x2; Start 10/10/16 at 21:30 ELTON FELIX Oct 11, 2016 08:56
[2016-10-11] MEDS: HYDROmorphONE 1 MG/ML SYG IV PRN (09:02)
[2016-10-11] MEDS: ASPIRIN 81 MG TAB NGT SCH (09:03)
[2016-10-11] MEDS: CA CARBONATE (250 MG/ML) 5ML CUP NGT SCH ×2 (09:04→20:55)
[2016-10-11] MEDS: PRASUGREL HYDROCHLORIDE 10 MG TABLET PO SCH (09:04)
[2016-10-11] MEDS: HEPARIN 5,000 UNIT/0.5 ML VIAL SC SCH ×2 (09:08→20:57)
[2016-10-11] MEDS: CALCITRIOL 1 MCG INJ IV SCH (09:09)
[2016-10-11] MEDS: FAMOTIDINE 20 MG INJ IV SCH (09:09)
[2016-10-11] MEDS: IMIPENEM-CILAST 250MG IV (PMX) 100 ML IVPB SCH ×2 (09:15→20:55)
[2016-10-11] MEDS: LINEZOLID 600 MG/D5W (PMX) 300 ML IVPB SCH ×2 (09:15→20:55)
--- NOTE | 2016-10-11 10:19 | PN ---
Date/Time of Note Date/Time of Note DATE: 10/11/16 TIME: 10:18 Assessment/Plan VTE Prophylaxis VTE Prophylaxis Intervention: other Lines/Catheters IV Catheter Type (from [facility] Saline Lock Urinary Cath still in place: No Assessment/Plan Chief Complaint/Hosp Course - Acute respiratory failure, requiring oral intubation and ventilatory support secondary to pulmonary edema. Dr. Nunez is following in pulmonology consultation. Continue ventilator support. Weaning per pulm. - Septic shock, resolving. - VRE bacteremia, continue Zyvox, continue antibiotics per ID. - End-stage renal disease, hemodialysis dependent. Dr. Hubbard is following the patient in nephrology consultation. Continue the hemodialysis per nephrology. - Diabetes mellitus type [address] Garay is following endocrinology consultation. Continue patient on insulin drip. - Peripheral arterial disease, status post vascular intervention. Continue Eliquis. - Anemia of chronic disease. Continue Epogen. - Coronary artery disease. Dr. Stephen is following in cardiology consultation. - Possible healthcare acquired pneumonia. Continue antibiotics per ID. Dr. Allison is following in ID consultation. - Possible sepsis secondary to pneumonia. Continue IV fluids and pressors for hemodynamic support, ICU care. - Transaminitis, Dr. Britt is following in gastroenterology consultation Problems: Subjective 24 Hr Interval Summary Free Text/Dictation Patient remain sedated and intubated, has large amount of secretions, is to have hemodialysis today Exam/Review of Systems Vital Signs Vitals Vital Signs Date Time Temp Pulse Resp B/P Pulse Ox O2 Delivery O2 Flow Rate FiO2 10/11/16 10:00 101 18 95/62 100 Mechanical Ventilator 10/11/16 09:59 30 10/11/16 07:30 98.9 Intake and Output 10/10/16 10/10/16 10/11/16 15:00 23:00 07:00 Intake Total 1029.66 ml 1160.74 ml 618.86 ml Output Total 2700 ml Balance 1029.66 ml -1539.26 ml 618.86 ml Exam Constitutional: well developed Head: atraumatic, normocephalic Neck: supple Respiratory: crackles/rales, diminished breath sounds Cardiovascular: regular rate and rhythm Gastrointestinal: non-tender, soft Extremities: normal pulses Results Result Diagram: 10/11/160 10/11/16 0430 Results 24 hrs Laboratory Tests Test 10/10/16 11:06 10/10/16 12:13 10/10/16 13:23 10/10/16 14:36 Bedside Glucose 180 183 139 133 Test 10/10/16 15:37 10/10/16 16:47 10/10/16 18:24 10/10/16 20:21 Bedside Glucose 135 108 96 82 Test 10/10/16 21:59 10/11/16 00:01 10/11/16 01:02 10/11/16 01:52 Bedside Glucose 133 229 H 227 H 171 Test 10/11/16 03:14 10/11/16 04:05 10/11/16 04:30 10/11/16 05:04 Bedside Glucose 134 92 78 White Blood Count 5.6 # Red Blood Count 3.38 L Hemoglobin 10.0 L Hematocrit 30.7 L Mean Corpuscular Volume 90.8 Mean Corpuscular Hemoglobin 29.6 Mean Corpuscular Hemoglobin Concent 32.6 Red Cell Distribution Width 17.5 H Platelet Count 180 Mean Platelet Volume 12.6 H Neutrophils % 68.1 Lymphocytes % 14.8 L Monocytes % 9.6 Eosinophils % 6.3 Basophils % 0.7 Nucleated Red Blood Cells % 0.0 Neutrophils # 3.8 Lymphocytes # 0.8 Monocytes # 0.5 Eosinophils # 0.4 Basophils # 0.0 Nucleated Red Blood Cells # 0.0 Sodium Level 135 Potassium Level 3.6 Chloride Level 95 L Carbon Dioxide Level 24 Anion Gap 20 H Blood Urea Nitrogen 85 H Creatinine 9.10 H Glucose Level 81 # Calcium Level 6.7 L Phosphorus Level 7.7 H Test 10/11/16 05:59 10/11/16 08:18 10/11/16 09:12 Bedside Glucose 104 209 192 Medications Medications Current Medications Ondansetron HCl (Zofran Inj) 4 mg Q6H PRN IV NAUSEA AND/OR VOMITING; Start at 06:00 Acetaminophen (Tylenol Liquid) 650 mg Q6H PRN PO PAIN LEVEL 1-3 OR FEVER Last administered on 09/30/16 08:32; Admin Dose 650 MG; Start 09/28/16 at 06:00 Hydromorphone HCl (Dilaudid) 0.5 mg Q4H PRN IV PAIN LEVEL 7-10 Last administered on 10/11/16 09:02; Admin Dose 0.5 MG; Start 09/28/16 at 06:00 Heparin Sodium (Porcine) (Heparin (5000 Units/0.5 ml)) 5,000 unit Q12 SC Last administered on 10/11/16 09:08; Admin Dose 5,000 UNIT; Start 09/28/16 at 09:00 Famotidine 20 mg 20 mg DAILY IV Last administered on 10/11/16 09:09; Admin Dose 20 MG; Start 09/28/16 at 09:00 Propofol 100 ml @ 2.31 mls/hr Q12H IV Last administered on 10/11/16 08:47; Admin Dose 18.48 MLS/HR; Start 09/28/16 at 11:30 Midazolam HCl 50 ml @ 1 mls/hr TITRATE IV Last administered on 10/06/16 22:25 ; Admin Dose 1 MLS/HR; Start 09/28/16 at 11:30 Fentanyl (Sublimaze) 100 ml @ 2.5 mls/hr TITRATE IV Last administered on 16:48; Admin Dose 2.5 MLS/HR; Start 09/29/16 at 09:00 Acetaminophen (Tylenol Liquid) 650 mg Q4H PRN NGT PAIN AND OR ELEVATED TEMP Last administered on 10/06/16 23:16; Admin Dose 650 MG; Start 09/30/16 at 08:30 Prasugrel (Effient) 10 mg DAILY PO Last administered on 10/11/16 09:04; Admin Dose 10 MG; Start 10/02/16 at 09:00 Carvedilol 12.5 mg 12.5 mg BID NGT Last administered on 10/11/16 09:03; Admin Dose 12.5 MG; Start 10/02/16 at 21:00 Imipenem/ Cilastatin Sodium (Primaxin 250 Mg/ 100 ml (Pmx)) 100 ml @ 166.667 mls/hr Q12 IVPB Last administered on 10/11/16 09:15; Admin Dose 166.667 MLS/HR ; Start 10/05/16 at 21:00 Miscellaneous Information This patient osorio... PRN PRN XX WOUND CARE; Start 10/06 at 09:30 Norepinephrine 16 mg/Dextrose 500 ml @ 1.87 mls/hr TITRATE IV Last administered on 10/07/16 21:07; Admin Dose 37.5 MLS/HR; Start 10/06/16 at 12:00 Phenylephrine HCl/ Dextrose (Brice-Syneph/D5W) 500 ml @ 75 mls/hr TITRATE IV ; Start 10/06/16 at 12:00 Calcium Carbonate 1250 mg 1,250 mg BID NGT Last administered on 10/11/16 09:04 ; Admin Dose 1,250 MG; Start 10/07/16 at 10:30 Linezolid (Zyvox 600mg/D5W (Pmx)) 300 ml @ 300 mls/hr Q12 IVPB Last administered on 10/11/16 09:15; Admin Dose 300 MLS/HR; Start 10/07/16 at 21:00 Aspirin (Aspirin) 81 mg DAILY NGT Last administered on 10/11/16 09:03; Admin Dose 81 MG; Start 10/08/16 at 09:00 Calcitriol (Calcitriol) 1 mcg DAILY IV Last administered on 10/11/16 09:09; Admin Dose 1 MCG; Start 10/08/16 at 14:00 Miscellaneous Information 1 ea NOTE XX ; Start 10/10/16 at 15:30 Glucose (Glutose) 15 gm Q15M PRN PO DECREASED GLUCOSE; Start 10/10/16 at 15:30 Glucose (Glutose) 22.5 gm Q15M PRN PO DECREASED GLUCOSE; Start 10/10/16 at 15: 30 Dextrose (D50w Syringe) 25 ml Q15M PRN IV DECREASED GLUCOSE; Start 10/10/16 at 15:30 Dextrose (D50w Syringe) 50 ml Q15M PRN IV DECREASED GLUCOSE; Start 10/10/16 at 15:30 Glucagon (Glucagen) 1 mg Q15M PRN IM DECREASED GLUCOSE; Start 10/10/16 at 15:30 Glucose (Glutose) 15 gm Q15M PRN BUCCAL DECREASED GLUCOSE; Start 10/10/16 at 15 :30 Diphenoxylate HCl/ Atropine (Lomotil Liquid Cup) 10 ml Q8H PRN NGT LOOSE STOOLS ; Start 10/10/16 at 18:00 Diagnostic Test (Pha) (Accu-Chek) 1 ea Q1H XX Last administered on 10/11/16 05 :55; Admin Dose 1 EA; Start 10/10/16 at 22:00 Dextrose (D50w Syringe) 25 ml Q15M PRN IV Till BS 80 mg/dL or above x2; Start 10/10/16 at 21:30 Dextrose (D50w Syringe) 50 ml Q15M PRN IV Till BS 80 mg/dL or above x2; Start 10/10/16 at 21:30 SHANTE SALDAÑA Oct 11, 2016 10:19
--- NOTE | 2016-10-11 11:10 | CONS ---
Date/Time of Note Date/Time of Note DATE: 10/11/16 TIME: 11:07 Assessment/Plan Assessment/Plan Problems: (1) Diabetes mellitus type 1, controlled, with complications Status: Chronic Comment: Pt. remains intubated on tube feeds. May have trach/PEG. If this occurs would transition pt. to levemir q12 or NPH q8. Until that time, while he remains intubated and on propofol, pt. should remain on insulin drip intravenously. Stable on this. Will continue. Consultation Date/Type/Reason Admit Date/Time Sep 28, 2016 at 05:39 Initial Consult Date 10/01/16 Type of Consultation: Endocrinology Reason for Consultation T1DM management Referring Provider: WILMER RODRIGUEZ MD 24 HR Interval Summary Subjective hx not possible: pt non-verbal, pt critical status Exam/Review of Systems Vital Signs Vitals VS - Last 72 Hours, by Label Date Time Temp Pulse Resp B/P Pulse Ox O2 Delivery O2 Flow Rate FiO2 10/11/16 10:00 101 18 95/62 100 Mechanical Ventilator 10/11/16 09:59 30 10/11/16 09:45 109 18 92/65 98 10/11/16 09:30 114 18 96/67 98 10/11/16 09:15 118 18 108/72 97 Mechanical Ventilator 10/11/16 09:10 116 24 100 30 10/11/16 08:45 115 18 127/94 100 10/11/16 08:30 114 21 163/88 95 10/11/16 08:15 110 18 122/75 100 Mechanical Ventilator 10/11/16 08:00 110 18 111/69 100 Mechanical Ventilator 10/11/16 07:30 98.9 110 20 117/67 100 Mechanical Ventilator 10/11/16 07:11 109 18 100 30 10/11/16 07:00 108 18 107/64 100 Mechanical Ventilator 10/11/16 06:15 98 18 97/62 100 10/11/16 06:00 97.3 96 20 105/57 98 Mechanical Ventilator 10/11/16 05:45 97 18 104/67 100 10/11/16 05:37 94 18 100 30 10/11/16 05:30 98 18 103/67 100 10/11/16 05:15 95 18 115/71 100 10/11/16 05:00 95 18 93/64 100 Mechanical Ventilator 10/11/16 04:45 94 18 102/70 100 10/11/16 04:30 96 18 112/69 100 10/11/16 04:15 96 18 102/69 100 10/11/16 04:00 96 10/11/16 04:00 97.2 96 18 95/68 100 Mechanical Ventilator 10/11/16 03:45 99 18 117/68 100 10/11/16 03:30 100 18 97/69 100 10/11/16 03:22 98 18 100 30 10/11/16 03:15 94 17 130/78 100 10/11/16 03:00 100 18 102/68 100 Mechanical Ventilator 10/11/16 02:45 99 18 103/68 100 10/11/16 02:30 101 16 101/66 100 10/11/16 02:15 101 19 99/64 100 10/11/16 02:00 100 18 104/70 100 Mechanical Ventilator 10/11/16 01:45 97 21 123/80 100 10/11/16 01:42 100 18 100 30 10/11/16 01:30 95 16 129/80 100 10/11/16 01:15 99 18 103/61 100 10/11/16 01:00 97.5 99 18 98/60 100 Mechanical Ventilator 10/11/16 00:45 99 18 110/63 100 10/11/16 00:30 98 18 115/67 100 10/11/16 00:15 91 18 113/63 100 10/11/16 00:00 96 10/11/16 00:00 97.5 98 18 102/67 100 Mechanical Ventilator 10/10/16 23:45 97 18 105/66 100 10/10/16 23:30 96 18 101/67 100 10/10/16 23:15 97 18 104/65 100 10/10/16 23:08 97 18 100 30 10/10/16 23:00 97.8 96 18 110/67 100 Mechanical Ventilator 10/10/16 22:45 94 18 122/71 100 10/10/16 22:30 94 18 110/70 100 10/10/16 22:15 95 18 113/71 100 10/10/16 22:00 95 18 115/71 100 Mechanical Ventilator 10/10/16 21:45 91 18 113/69 100 10/10/16 21:30 89 18 111/68 100 10/10/16 21:15 87 18 111/69 100 10/10/16 21:00 89 18 107/68 100 Mechanical Ventilator 10/10/16 20:50 89 18 100 30 10/10/16 20:45 88 18 111/72 100 10/10/16 20:30 81 16 114/73 100 10/10/16 20:15 87 16 97/68 100 10/10/16 20:00 95 10/10/16 20:00 87 18 99/65 100 Mechanical Ventilator 10/10/16 19:45 85 18 104/66 100 10/10/16 19:30 86 18 110/77 100 10/10/16 19:15 90 18 113/73 100 10/10/16 19:05 89 18 100 30 10/10/16 19:00 98.0 90 16 110/71 100 Mechanical Ventilator 10/10/16 18:00 92 18 116/72 100 Mechanical Ventilator 10/10/16 17:26 89 18 100 30 10/10/16 17:00 90 18 112/73 100 Mechanical Ventilator 10/10/16 16:45 96 17 10/10/16 16:45 103 10/10/16 16:15 104 10/10/16 16:00 30 10/10/16 16:00 98.1 106 17 102/69 100 Mechanical Ventilator 10/10/16 16:00 106 10/10/16 15:49 107 21 100 30 10/10/16 15:45 102 10/10/16 15:15 98 10/10/16 15:00 104 22 104/63 100 Mechanical Ventilator 10/10/16 14:45 96 10/10/16 14:15 94 10/10/16 14:00 89 20 121/68 100 Mechanical Ventilator 10/10/16 13:52 90 18 100 30 10/10/16 13:45 95 10/10/16 13:45 90 18 10/10/16 13:00 87 18 105/67 100 Mechanical Ventilator 10/10/16 12:00 30 10/10/16 12:00 98.1 18 107/69 100 Mechanical Ventilator 10/10/16 12:00 86 10/10/16 11:40 82 18 100 30 10/10/16 11:00 88 18 91/64 100 Mechanical Ventilator 10/10/16 10:30 89 18 96/64 100 10/10/16 10:00 87 18 108/69 100 Mechanical Ventilator 10/10/16 09:33 93 18 100 30 10/10/16 09:30 93 20 93/61 100 10/10/16 09:00 94 20 119/68 100 Mechanical Ventilator 10/10/16 08:30 97 22 135/80 100 10/10/16 08:15 95 20 124/80 100 10/10/16 08:00 93 10/10/16 08:00 30 10/10/16 08:00 98.7 93 18 119/75 100 Mechanical Ventilator 10/10/16 07:45 91 14 129/87 100 10/10/16 07:42 92 18 100 30 10/10/16 07:30 90 10 116/79 100 10/10/16 07:15 85 12 120/77 100 10/10/16 07:00 86 12 127/75 100 Mechanical Ventilator 10/10/16 06:45 87 12 113/74 100 10/10/16 06:30 90 8 95/70 100 10/10/16 06:15 91 18 100/65 100 10/10/16 06:00 97.3 93 10 109/70 100 10/10/16 05:45 96 10 112/75 100 10/10/16 05:30 98 0 114/80 100 10/10/16 05:15 98 18 117/80 100 10/10/16 05:14 97 19 100 30 10/10/16 05:00 98 13 121/80 100 10/10/16 04:45 98 22 130/81 100 10/10/16 04:30 100 36 126/81 100 10/10/16 04:15 102 8 123/75 100 10/10/16 04:00 98 10/10/16 04:00 97.3 99 34 139/82 100 10/10/16 03:45 101 17 127/75 100 10/10/16 03:30 102 17 111/72 100 10/10/16 03:15 102 18 111/67 100 10/10/16 03:12 99 21 100 30 10/10/16 03:00 102 18 111/72 100 10/10/16 02:45 101 18 112/67 100 10/10/16 02:30 97.6 102 18 115/75 100 10/10/16 02:15 104 46 139/90 100 10/10/16 02:00 104 22 131/89 100 10/10/16 01:19 100 20 100 30 10/10/16 01:15 100 11 122/82 100 10/10/16 01:00 99 10 122/74 100 10/10/16 00:45 97 104/71 100 10/10/16 00:30 94 18 108/73 100 10/10/16 00:15 96 6 109/69 100 10/10/16 00:00 95 12 114/73 100 10/10/16 00:00 108 10/09/16 23:45 92 5 112/70 100 10/09/16 23:30 91 14 97/63 98 10/09/16 23:19 94 18 100 30 10/09/16 23:15 94 96/63 100 10/09/16 23:00 97.5 92 4 117/72 100 10/09/16 22:45 97 18 108/75 100 10/09/16 22:30 100 40 128/80 100 10/09/16 22:15 100 24 128/78 100 10/09/16 22:00 97.6 100 30 131/87 100 10/09/16 21:45 100 31 127/79 100 10/09/16 21:30 99 22 117/80 100 10/09/16 21:20 99 20 100 30 10/09/16 21:15 97 33 119/75 100 10/09/16 21:00 97.7 98 40 113/78 100 10/09/16 20:45 99 36 113/78 100 10/09/16 20:30 101 38 114/74 100 10/09/16 20:15 101 28 114/75 100 10/09/16 20:00 97.7 100 43 114/71 100 10/09/16 20:00 100 10/09/16 20:00 30 10/09/16 19:45 97 25 119/75 100 10/09/16 19:31 94 18 100 30 10/09/16 19:30 94 32 118/73 100 10/09/16 19:15 96 26 123/78 100 10/09/16 19:00 97.8 93 29 118/74 100 10/09/16 17:30 91 18 107/72 100 10/09/16 17:30 88 18 100 30 10/09/16 17:00 86 18 111/76 100 10/09/16 16:30 88 18 102/71 100 10/09/16 16:00 97.7 88 18 116/77 100 10/09/16 16:00 87 10/09/16 15:30 89 18 106/65 100 10/09/16 15:19 90 19 100 30 10/09/16 15:00 91 19 107/63 100 10/09/16 14:30 88 18 105/67 100 10/09/16 14:00 89 17 105/72 100 10/09/16 13:30 88 18 109/69 100 10/09/16 13:00 89 18 113/68 100 10/09/16 12:30 90 19 121/72 100 10/09/16 12:00 97.7 88 18 101/68 100 10/09/16 12:00 88 10/09/16 11:30 85 18 103/69 100 10/09/16 11:16 87 18 100 30 10/09/16 11:00 90 18 89/64 100 10/09/16 10:30 95 18 101/75 100 10/09/16 10:00 95 10 101/72 100 10/09/16 09:30 96 14 106/72 100 10/09/16 09:15 96 18 100 30 10/09/16 09:00 96 10 100/74 100 10/09/16 08:30 97 18 103/76 100 10/09/16 08:05 97 18 100 30 10/09/16 08:00 30 10/09/16 08:00 97.6 99 18 100 Mechanical Ventilator 10/09/16 08:00 98 10/09/16 07:30 94 18 106/69 100 10/09/16 07:00 89 18 132/78 100 Mechanical Ventilator 10/09/16 06:30 81 19 143/80 100 10/09/16 06:00 82 18 138/79 100 Mechanical Ventilator 10/09/16 05:30 81 18 133/78 100 10/09/16 05:22 83 18 100 30 10/09/16 05:00 85 18 113/76 100 Mechanical Ventilator 10/09/16 04:30 85 18 115/77 100 10/09/16 04:00 97.2 86 14 121/75 100 Mechanical Ventilator 10/09/16 04:00 86 10/09/16 03:30 78 18 95/61 100 10/09/16 03:06 81 18 100 30 10/09/16 03:00 81 18 96/58 100 Mechanical Ventilator 10/09/16 02:30 83 18 105/63 100 10/09/16 02:00 88 16 106/73 100 Mechanical Ventilator 10/09/16 01:30 89 19 118/77 100 10/09/16 01:05 89 18 100 30 10/09/16 01:00 90 18 109/71 100 Mechanical Ventilator 10/09/16 00:30 88 16 112/73 100 10/09/16 00:00 98.0 89 20 143/86 100 Mechanical Ventilator 10/09/16 00:00 86 10/08/16 23:30 86 16 92/59 100 10/08/16 23:16 87 18 100 35 10/08/16 23:00 84 18 102/64 100 Mechanical Ventilator 10/08/16 22:30 87 18 105/68 100 10/08/16 22:00 83 18 106/65 100 Mechanical Ventilator 10/08/16 21:30 83 18 112/69 100 10/08/16 21:25 85 19 100 35 10/08/16 21:00 85 18 111/71 100 Mechanical Ventilator 10/08/16 20:30 85 18 106/74 100 10/08/16 20:00 98.7 85 18 112/72 100 Mechanical Ventilator 10/08/16 20:00 84 10/08/16 20:00 30 10/08/16 19:51 84 18 100 35 10/08/16 19:30 86 18 111/72 100 10/08/16 19:00 85 18 106/72 100 Mechanical Ventilator 10/08/16 19:00 85 106/72 100 10/08/16 18:45 86 113/71 100 10/08/16 18:30 87 18 105/72 100 10/08/16 18:15 82 0 105/69 100 10/08/16 18:00 86 21 101/71 100 Mechanical Ventilator 10/08/16 17:45 86 105/65 100 10/08/16 17:30 86 100/65 100 10/08/16 17:15 87 18 108/69 100 10/08/16 17:05 87 18 100 35 10/08/16 17:00 88 21 99/70 100 Mechanical Ventilator 10/08/16 16:45 89 0 109/73 100 10/08/16 16:30 92 32 121/79 100 10/08/16 16:15 92 40 129/78 100 10/08/16 16:00 72 10/08/16 16:00 98.4 94 34 124/88 100 Mechanical Ventilator 10/08/16 16:00 30 10/08/16 15:45 96 21 126/76 100 10/08/16 15:30 93 20 131/79 100 10/08/16 15:15 96 28 130/86 100 10/08/16 15:05 94 20 100 35 10/08/16 15:00 92 41 137/82 100 Mechanical Ventilator 10/08/16 14:45 92 46 136/86 100 10/08/16 14:30 90 30 128/81 100 10/08/16 14:15 90 40 144/84 100 10/08/16 14:00 84 32 161/86 100 Mechanical Ventilator 10/08/16 14:00 80 45 100 35 10/08/16 13:45 81 30 140/80 100 10/08/16 13:30 83 27 154/78 100 10/08/16 13:25 82 26 100 40 10/08/16 13:15 80 19 134/79 100 10/08/16 13:00 81 18 122/73 100 Mechanical Ventilator 10/08/16 12:45 86 18 120/74 100 10/08/16 12:30 88 27 133/83 10/08/16 12:15 90 32 130/75 10/08/16 12:14 91 36 10/08/16 12:00 93 10/08/16 12:00 30 10/08/16 12:00 97.8 91 26 126/88 100 Mechanical Ventilator 10/08/16 11:55 82 10/08/16 11:45 95 39 117/85 10/08/16 11:31 94 10/08/16 11:30 94 33 118/81 10/08/16 11:15 88 24 113/80 100 Vital Signs Date Time Temp Pulse Resp B/P Pulse Ox O2 Delivery O2 Flow Rate FiO2 10/11/16 10:00 101 18 95/62 100 Mechanical Ventilator 10/11/16 09:59 30 10/11/16 07:30 98.9 Intake and Output 10/10/16 10/10/16 10/11/16 15:00 23:00 07:00 Intake Total 1029.66 ml 1160.74 ml 618.86 ml Output Total 2700 ml Balance 1029.66 ml -1539.26 ml 618.86 ml Exam Constitutional: non-verbal, No alert (sedated) ENMT: intubated Respiratory: clear to auscultation, normal air movement Cardiovascular: nl pulses, regular rate and rhythm, No edema, No murmurs/extra sounds, No rub Gastrointestinal: bowel sounds, nl liver, spleen, non-tender, soft, No mass, No rebound or guarding Musculoskeletal: nl extremities to inspection Extremities: normal pulses, No clubbing, No cyanosis, No edema 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: unresponsive Additional Comments Bedside Glucose - 72 Hours Test 10/08/16 11:14 10/08/16 12:07 10/08/16 13:16 10/08/16 14:10 Bedside Glucose 177mg/dL (70-220) 160mg/dL (70-220) 243mg/dL (70-220) H 215mg/dL (70-220) Test 10/08/16 15:06 10/08/16 15:58 10/08/16 17:06 10/08/16 18:15 Bedside Glucose 163mg/dL (70-220) 149mg/dL (70-220) 120mg/dL (70-220) 121mg/dL (70-220) Test 10/08/16 20:06 10/08/16 21:05 10/08/16 22:57 10/09/16 00:01 Bedside Glucose 90mg/dL (70-220) 95mg/dL (70-220) 201mg/dL (70-220) 257mg/dL (70-220) H Test 10/09/16 01:15 10/09/16 02:11 10/09/16 04:13 10/09/16 05:04 Bedside Glucose 184mg/dL (70-220) 159mg/dL (70-220) 85mg/dL (70-220) 75mg/dL (70-220) Test 10/09/16 06:02 10/09/16 06:14 10/09/16 06:27 10/09/16 06:51 Bedside Glucose 56mg/dL (70-220) L 72mg/dL (70-220) 136mg/dL (70-220) 130mg/dL (70-220) Test 10/09/16 08:45 10/09/16 10:28 10/09/16 11:24 10/09/16 12:17 Bedside Glucose 216mg/dL (70-220) 181mg/dL (70-220) 170mg/dL (70-220) 161mg/dL (70-220) Test 10/09/16 13:24 10/09/16 14:27 10/09/16 15:26 10/09/16 16:33 Bedside Glucose 212mg/dL (70-220) 199mg/dL (70-220) 165mg/dL (70-220) 134mg/dL (70-220) Test 10/09/16 17:46 10/09/16 19:11 10/09/16 19:53 10/09/16 20:49 Bedside Glucose 106mg/dL (70-220) 122mg/dL (70-220) 129mg/dL (70-220) 125mg/dL (70-220) Test 10/09/16 21:54 10/09/16 22:58 10/09/16 23:43 10/10/16 01:18 Bedside Glucose 133mg/dL (70-220) 152mg/dL (70-220) 153mg/dL (70-220) 101mg/dL (70-220) Test 10/10/16 02:06 10/10/16 03:24 10/10/16 03:31 10/10/16 03:58 Bedside Glucose 86mg/dL (70-220) 128mg/dL (70-220) 134mg/dL (70-220) 131mg/dL (70-220) Test 10/10/16 05:14 10/10/16 05:53 10/10/16 06:49 10/10/16 08:11 Bedside Glucose 136mg/dL (70-220) 126mg/dL (70-220) 113mg/dL (70-220) 119mg/dL (70-220) Test 10/10/16 10:18 10/10/16 11:06 10/10/16 12:13 10/10/16 13:23 Bedside Glucose 159mg/dL (70-220) 180mg/dL (70-220) 183mg/dL (70-220) 139mg/dL (70-220) Test 10/10/16 14:36 10/10/16 15:37 10/10/16 16:47 10/10/16 18:24 Bedside Glucose 133mg/dL (70-220) 135mg/dL (70-220) 108mg/dL (70-220) 96mg/dL (70-220) Test 10/10/16 20:21 10/10/16 21:59 10/11/16 00:01 10/11/16 01:02 Bedside Glucose 82mg/dL (70-220) 133mg/dL (70-220) 229mg/dL (70-220) H 227mg/dL (70-220) H Test 10/11/16 01:52 10/11/16 03:14 10/11/16 04:05 10/11/16 05:04 Bedside Glucose 171mg/dL (70-220) 134mg/dL (70-220) 92mg/dL (70-220) 78mg/dL (70-220) Test 10/11/16 05:59 10/11/16 08:18 10/11/16 09:12 10/11/16 10:32 Bedside Glucose 104mg/dL (70-220) 209mg/dL (70-220) 192mg/dL (70-220) 143mg/dL (70-220) Results Result Diagram: 10/11/16 0430 10/11/16 0430 Results 24 hrs Laboratory Tests Test 10/10/16 12:13 10/10/16 13:23 10/10/16 14:36 10/10/16 15:37 Bedside Glucose 183 139 133 135 Test 10/10/16 16:47 10/10/16 18:24 10/10/16 20:21 10/10/16 21:59 Bedside Glucose 108 96 82 133 Test 10/11/16 00:01 10/11/16 01:02 10/11/16 01:52 10/11/16 03:14 Bedside Glucose 229 H 227 H 171 134 Test 10/11/16 04:05 10/11/16 04:30 10/11/16 05:04 10/11/16 05:59 Bedside Glucose 92 78 104 White Blood Count 5.6 # Red Blood Count 3.38 L Hemoglobin 10.0 L Hematocrit 30.7 L Mean Corpuscular Volume 90.8 Mean Corpuscular Hemoglobin 29.6 Mean Corpuscular Hemoglobin Concent 32.6 Red Cell Distribution Width 17.5 H Platelet Count 180 Mean Platelet Volume 12.6 H Neutrophils % 68.1 Lymphocytes % 14.8 L Monocytes % 9.6 Eosinophils % 6.3 Basophils % 0.7 Nucleated Red Blood Cells % 0.0 Neutrophils # 3.8 Lymphocytes # 0.8 Monocytes # 0.5 Eosinophils # 0.4 Basophils # 0.0 Nucleated Red Blood Cells # 0.0 Sodium Level 135 Potassium Level 3.6 Chloride Level 95 L Carbon Dioxide Level 24 Anion Gap 20 H Blood Urea Nitrogen 85 H Creatinine 9.10 H Glucose Level 81 # Calcium Level 6.7 L Phosphorus Level 7.7 H Test 10/11/16 08:18 10/11/16 09:12 10/11/16 10:32 Bedside Glucose 209 192 143 Medications Medications Current Medications Ondansetron HCl (Zofran Inj) 4 mg Q6H PRN IV NAUSEA AND/OR VOMITING; Start at 06:00 Acetaminophen (Tylenol Liquid) 650 mg Q6H PRN PO PAIN LEVEL 1-3 OR FEVER Last administered on 09/30/16 08:32; Admin Dose 650 MG; Start 09/28/16 at 06:00 Hydromorphone HCl (Dilaudid) 0.5 mg Q4H PRN IV PAIN LEVEL 7-10 Last administered on 10/11/16 09:02; Admin Dose 0.5 MG; Start 09/28/16 at 06:00 Heparin Sodium (Porcine) (Heparin (5000 Units/0.5 ml)) 5,000 unit Q12 SC Last administered on 10/11/16 09:08; Admin Dose 5,000 UNIT; Start 09/28/16 at 09:00 Famotidine 20 mg 20 mg DAILY IV Last administered on 10/11/16 09:09; Admin Dose 20 MG; Start 09/28/16 at 09:00 Propofol 100 ml @ 2.31 mls/hr Q12H IV Last administered on 10/11/16 08:47; Admin Dose 18.48 MLS/HR; Start 09/28/16 at 11:30 Midazolam HCl 50 ml @ 1 mls/hr TITRATE IV Last administered on 10/06/16 22:25 ; Admin Dose 1 MLS/HR; Start 09/28/16 at 11:30 Fentanyl (Sublimaze) 100 ml @ 2.5 mls/hr TITRATE IV Last administered on 16:48; Admin Dose 2.5 MLS/HR; Start 09/29/16 at 09:00 Acetaminophen (Tylenol Liquid) 650 mg Q4H PRN NGT PAIN AND OR ELEVATED TEMP Last administered on 10/06/16 23:16; Admin Dose 650 MG; Start 09/30/16 at 08:30 Prasugrel (Effient) 10 mg DAILY PO Last administered on 10/11/16 09:04; Admin Dose 10 MG; Start 10/02/16 at 09:00 Carvedilol 12.5 mg 12.5 mg BID NGT Last administered on 10/11/16 09:03; Admin Dose 12.5 MG; Start 10/02/16 at 21:00 Imipenem/ Cilastatin Sodium (Primaxin 250 Mg/ 100 ml (Pmx)) 100 ml @ 166.667 mls/hr Q12 IVPB Last administered on 10/11/16 09:15; Admin Dose 166.667 MLS/HR ; Start 10/05/16 at 21:00 Miscellaneous Information This patient osorio... PRN PRN XX WOUND CARE; Start 10/06 at 09:30 Norepinephrine 16 mg/Dextrose 500 ml @ 1.87 mls/hr TITRATE IV Last administered on 10/07/16 21:07; Admin Dose 37.5 MLS/HR; Start 10/06/16 at 12:00 Phenylephrine HCl/ Dextrose (Brice-Syneph/D5W) 500 ml @ 75 mls/hr TITRATE IV ; Start 10/06/16 at 12:00 Calcium Carbonate 1250 mg 1,250 mg BID NGT Last administered on 10/11/16 09:04 ; Admin Dose 1,250 MG; Start 10/07/16 at 10:30 Linezolid (Zyvox 600mg/D5W (Pmx)) 300 ml @ 300 mls/hr Q12 IVPB Last administered on 10/11/16 09:15; Admin Dose 300 MLS/HR; Start 10/07/16 at 21:00 Aspirin (Aspirin) 81 mg DAILY NGT Last administered on 10/11/16 09:03; Admin Dose 81 MG; Start 10/08/16 at 09:00 Calcitriol (Calcitriol) 1 mcg DAILY IV Last administered on 10/11/16 09:09; Admin Dose 1 MCG; Start 10/08/16 at 14:00 Miscellaneous Information 1 ea NOTE XX ; Start 10/10/16 at 15:30 Glucose (Glutose) 15 gm Q15M PRN PO DECREASED GLUCOSE; Start 10/10/16 at 15:30 Glucose (Glutose) 22.5 gm Q15M PRN PO DECREASED GLUCOSE; Start 10/10/16 at 15: 30 Dextrose (D50w Syringe) 25 ml Q15M PRN IV DECREASED GLUCOSE; Start 10/10/16 at 15:30 Dextrose (D50w Syringe) 50 ml Q15M PRN IV DECREASED GLUCOSE; Start 10/10/16 at 15:30 Glucagon (Glucagen) 1 mg Q15M PRN IM DECREASED GLUCOSE; Start 10/10/16 at 15:30 Glucose (Glutose) 15 gm Q15M PRN BUCCAL DECREASED GLUCOSE; Start 10/10/16 at 15 :30 Diphenoxylate HCl/ Atropine (Lomotil Liquid Cup) 10 ml Q8H PRN NGT LOOSE STOOLS ; Start 10/10/16 at 18:00 Diagnostic Test (Pha) (Accu-Chek) 1 ea Q1H XX Last administered on 10/11/16 05 :55; Admin Dose 1 EA; Start 10/10/16 at 22:00 Dextrose (D50w Syringe) 25 ml Q15M PRN IV Till BS 80 mg/dL or above x2; Start 10/10/16 at 21:30 Dextrose (D50w Syringe) 50 ml Q15M PRN IV Till BS 80 mg/dL or above x2; Start 10/10/16 at 21:30 AUSTIN SANCHEZ MD Oct 11, 2016 11:10
--- NOTE | 2016-10-11 12:05 | CONS ---
DATE OF ADMISSION: 09/28/2016 DATE OF CONSULTATION: PROGRESS NOTE The patient is in the intensive care unit. I am seeing the patient for abnormal liver functions. Th e patient is still intubated. An attempt on weaning was not successful PHYSICAL EXAMINATION: GENERAL: The patient is intubated. VITAL SIGNS: Blood pressure is 95/62. He is not on Levophed. Pulse is 101. CARDIOVASCULAR EXAM: Normal heart sounds. RESPIRATORY: Normal breath sounds. ABDOMEN: Shows a soft abdomen. LABORATORY FUNCTIONS: 1. Chemistries: As far as liver functions are concerned yesterday AST 402, ALT 594, alkaline phosph atase 357, BUN 100, creatinine 9.89. Patient underwent dialysis, with impression improving li adda functions, probably secondary to shock liver. 2. He is tolerating the NG-tube feeding. 3. Hypotensive respiratory failure. PLAN: Continue to observe the liver functions. Continue to do the NG tube feeding. Dictated By: RENAE HELMS/SERGO Conf#: [id number] DID#: [id number]
--- NOTE | 2016-10-11 13:18 | CONS ---
Date/Time of Note Date/Time of Note DATE: 10/11/16 TIME: 13:15 Assessment/Plan Assessment/Plan Additional Assessment/Plan - Acute respiratory failure, requiring oral intubation and ventilatory support secondary to pulmonary edema. cont agressive hd, hd again today. pulm following. wean when euvolemic - VRE bacteremia, continue Zyvox, continue antibiotics per ID. - End-stage renal disease, hemodialysis dependent. s/p hd yesterday and plan for hd again today and in am - Diabetes mellitus type [address] Garay is following endocrinology consultation. Continue patient on insulin drip. - Peripheral arterial disease, status post vascular intervention. Continue Eliquis. - Anemia of chronic disease. Continue Epogen. - Coronary artery disease. Dr. Stephen is following in cardiology consultation. - Possible healthcare acquired pneumonia. Continue antibiotics per ID. Dr. Allison is following in ID consultation. - Possible sepsis secondary to pneumonia. Continue IV fluids and pressors for hemodynamic support, ICU care. - Transaminitis, Dr. Britt is following in gastroenterology consultation Consultation Date/Type/Reason Admit Date/Time Sep 28, 2016 at 05:39 Initial Consult Date 10/01/16 Type of Consultation: Endocrinology Referring Provider: WILMER RODRIGUEZ MD 24 HR Interval Summary Free Text/Dictation SEDATED, NON VERBAL ON VENT. per nursing frothy secretions when given a sedaton break hd with 1.4 L Uf yesterday Exam/Review of Systems Vital Signs Vitals Vital Signs Date Time Temp Pulse Resp B/P Pulse Ox O2 Delivery O2 Flow Rate FiO2 10/11/16 13:00 81 18 101/62 100 Mechanical Ventilator 10/11/16 11:27 30 10/11/16 11:00 98.5 Intake and Output 10/10/16 10/10/16 10/11/16 15:00 23:00 07:00 Intake Total 1029.66 ml 1160.74 ml 637.34 ml Output Total 2700 ml Balance 1029.66 ml -1539.26 ml 637.34 ml Exam Constitutional: other (sedated, orally intubated) Head: atraumatic, normocephalic Neck: jvd, non-tender, supple Respiratory: diminished breath sounds Cardiovascular: edema, regular rate and rhythm Gastrointestinal: non-tender, soft Results Result Diagram: 10/11/16 0430 10/11/16 0430 Results 24 hrs Laboratory Tests Test 10/10/16 13:23 10/10/16 14:36 10/10/16 15:37 10/10/16 16:47 Bedside Glucose 139 133 135 108 Test 10/10/16 18:24 10/10/16 20:21 10/10/16 21:59 10/11/16 00:01 Bedside Glucose 96 82 133 229 H Test 10/11/16 01:02 10/11/16 01:52 10/11/16 03:14 10/11/16 04:05 Bedside Glucose 227 H 171 134 92 Test 10/11/16 04:30 10/11/16 05:04 10/11/16 05:59 10/11/16 08:18 White Blood Count 5.6 # Red Blood Count 3.38 L Hemoglobin 10.0 L Hematocrit 30.7 L Mean Corpuscular Volume 90.8 Mean Corpuscular Hemoglobin 29.6 Mean Corpuscular Hemoglobin Concent 32.6 Red Cell Distribution Width 17.5 H Platelet Count 180 Mean Platelet Volume 12.6 H Neutrophils % 68.1 Lymphocytes % 14.8 L Monocytes % 9.6 Eosinophils % 6.3 Basophils % 0.7 Nucleated Red Blood Cells % 0.0 Neutrophils # 3.8 Lymphocytes # 0.8 Monocytes # 0.5 Eosinophils # 0.4 Basophils # 0.0 Nucleated Red Blood Cells # 0.0 Sodium Level 135 Potassium Level 3.6 Chloride Level 95 L Carbon Dioxide Level 24 Anion Gap 20 H Blood Urea Nitrogen 85 H Creatinine 9.10 H Glucose Level 81 # Calcium Level 6.7 L Phosphorus Level 7.7 H Bedside Glucose 78 104 209 Test 10/11/16 09:12 10/11/16 10:32 10/11/16 11:53 10/11/16 13:06 Bedside Glucose 192 143 127 103 Medications Medications Current Medications Ondansetron HCl (Zofran Inj) 4 mg Q6H PRN IV NAUSEA AND/OR VOMITING; Start at 06:00 Acetaminophen (Tylenol Liquid) 650 mg Q6H PRN PO PAIN LEVEL 1-3 OR FEVER Last administered on 09/30/16t 08:32; Admin Dose 650 MG; Start 09/28/16 at 06:00 Hydromorphone HCl (Dilaudid) 0.5 mg Q4H PRN IV PAIN LEVEL 7-10 Last administered on 10/11/16 09:02; Admin Dose 0.5 MG; Start 09/28/16 at 06:00 Heparin Sodium (Porcine) (Heparin (5000 Units/0.5 ml)) 5,000 unit Q12 SC Last administered on 10/11/16 09:08; Admin Dose 5,000 UNIT; Start 09/28/16 at 09:00 Famotidine 20 mg 20 mg DAILY IV Last administered on 10/11/16 09:09; Admin Dose 20 MG; Start 09/28/16 at 09:00 Propofol 100 ml @ 2.31 mls/hr Q12H IV Last administered on 10/11/16 08:47; Admin Dose 18.48 MLS/HR; Start 09/28/16 at 11:30 Midazolam HCl 50 ml @ 1 mls/hr TITRATE IV Last administered on 10/06/16 22:25 ; Admin Dose 1 MLS/HR; Start 09/28/16 at 11:30 Fentanyl (Sublimaze) 100 ml @ 2.5 mls/hr TITRATE IV Last administered on 16:48; Admin Dose 2.5 MLS/HR; Start 09/29/16 at 09:00 Acetaminophen (Tylenol Liquid) 650 mg Q4H PRN NGT PAIN AND OR ELEVATED TEMP Last administered on 10/06/16 23:16; Admin Dose 650 MG; Start 09/30/16 at 08:30 Prasugrel (Effient) 10 mg DAILY PO Last administered on 10/11/16 09:04; Admin Dose 10 MG; Start 10/02/16 at 09:00 Carvedilol 12.5 mg 12.5 mg BID NGT Last administered on 10/11/16 09:03; Admin Dose 12.5 MG; Start 10/02/16 at 21:00 Imipenem/ Cilastatin Sodium (Primaxin 250 Mg/ 100 ml (Pmx)) 100 ml @ 166.667 mls/hr Q12 IVPB Last administered on 10/11/16 09:15; Admin Dose 166.667 MLS/HR ; Start 10/05/16 at 21:00 Miscellaneous Information This patient osorio... PRN PRN XX WOUND CARE; Start 10/06 at 09:30 Norepinephrine 16 mg/Dextrose 500 ml @ 1.87 mls/hr TITRATE IV Last administered on 10/07/16 21:07; Admin Dose 37.5 MLS/HR; Start 10/06/16 at 12:00 Phenylephrine HCl/ Dextrose (Brice-Syneph/D5W) 500 ml @ 75 mls/hr TITRATE IV ; Start 10/06/16 at 12:00 Calcium Carbonate 1250 mg 1,250 mg BID NGT Last administered on 10/11/16 09:04 ; Admin Dose 1,250 MG; Start 10/07/16 at 10:30 Linezolid (Zyvox 600mg/D5W (Pmx)) 300 ml @ 300 mls/hr Q12 IVPB Last administered on 10/11/16 09:15; Admin Dose 300 MLS/HR; Start 10/07/16 at 21:00 Aspirin (Aspirin) 81 mg DAILY NGT Last administered on 10/11/16 09:03; Admin Dose 81 MG; Start 10/08/16 at 09:00 Calcitriol (Calcitriol) 1 mcg DAILY IV Last administered on 10/11/16 09:09; Admin Dose 1 MCG; Start 10/08/16 at 14:00 Miscellaneous Information 1 ea NOTE XX ; Start 10/10/16 at 15:30 Glucose (Glutose) 15 gm Q15M PRN PO DECREASED GLUCOSE; Start 10/10/16 at 15:30 Glucose (Glutose) 22.5 gm Q15M PRN PO DECREASED GLUCOSE; Start 10/10/16 at 15: 30 Dextrose (D50w Syringe) 25 ml Q15M PRN IV DECREASED GLUCOSE; Start 10/10/16 at 15:30 Dextrose (D50w Syringe) 50 ml Q15M PRN IV DECREASED GLUCOSE; Start 10/10/16 at 15:30 Glucagon (Glucagen) 1 mg Q15M PRN IM DECREASED GLUCOSE; Start 10/10/16 at 15:30 Glucose (Glutose) 15 gm Q15M PRN BUCCAL DECREASED GLUCOSE; Start 10/10/16 at 15 :30 Diphenoxylate HCl/ Atropine (Lomotil Liquid Cup) 10 ml Q8H PRN NGT LOOSE STOOLS ; Start 10/10/16 at 18:00 Diagnostic Test (Pha) (Accu-Chek) 1 ea Q1H XX Last administered on 10/11/16t 05 :55; Admin Dose 1 EA; Start 10/10/16 at 22:00 Dextrose (D50w Syringe) 25 ml Q15M PRN IV Till BS 80 mg/dL or above x2; Start 10/10/16 at 21:30 Dextrose (D50w Syringe) 50 ml Q15M PRN IV Till BS 80 mg/dL or above x2; Start 10/10/16 at 21:30 VITA REBOLLEDO MD Oct 11, 2016 13:18
[2016-10-11] MEDS: IPRATROPIUM (HFA) 12.9 GM INHALER INH SCH ×2 (14:02→19:44)
[2016-10-11] MEDS: ALBUTEROL 18 GM INHALER INH SCH ×2 (14:02→19:43)
[2016-10-11] MEDS: INSULIN HUMAN REGULAR 100 UNIT in SOD CHLORIDE 0.9% 99 ML IV SCH (21:50)
[2016-10-12] VITALS (75 sets, daily range): BP systolic 91–140; BP diastolic 58–85; PULSE 80–102; RESP 10–34
[2016-10-12] MEDS: ACCU-CHEK XX SCH ×15 (00:06→23:05)
[2016-10-12] MEDS: PROPOFOL 100 ML IV SCH ×4 (01:20→19:17)
[2016-10-12] MEDS: ALBUTEROL 18 GM INHALER INH SCH ×4 (03:25→20:13)
[2016-10-12 05:31] LABS: ADD SCAN DIFF NO
[2016-10-12 05:35] LABS: EOSINOPHILS # 0.3 10^3/ul (0.0-0.5); EOSINOPHILS % 7.8 % (0.0-7.0); HEMATOCRIT 32.5 % (42.0-52.0); HEMOGLOBIN 10.1 g/dl (14.0-18.0); LYMPHOCYTES # 0.7 10^3/ul (0.8-2.9); MEAN CORPUSCULAR HEMOGLOBIN 28.8 pg (29.0-33.0); MEAN CORPUSCULAR HGB CONC 31.1 g/dl (32.0-37.0); MEAN CORPUSCULAR VOLUME 92.6 fl (82.0-101.0); MEAN PLATELET VOLUME 12.7 fl (7.4-10.4); MONOCYTE # 0.6 10^3/ul (0.3-0.9); MONOCYTES % 15.1 % (0.0-11.0); NEUTROPHIL # 2.2 10^3/ul (1.6-7.5); NEUTROPHILS % 56.8 % (39.0-77.0); PLATELET COUNT 198 10^3/UL (140-415); RED BLOOD COUNT 3.51 10^6/ul (4.70-6.10); RED CELL DISTRIBUTION WIDTH 18.3 % (11.5-14.5); WHITE BLOOD COUNT 3.9 10^3/ul (4.8-10.8)
[2016-10-12 05:49] LABS: POTASSIUM 3.7 mmol/L (3.5-5.1)
[2016-10-12 05:52] LABS: CREATININE 6.69 mg/dl (0.61-1.24)
[2016-10-12 05:53] LABS: CALCIUM 8.1 mg/dl (8.4-10.2)
[2016-10-12] MEDS: IPRATROPIUM (HFA) 12.9 GM INHALER INH SCH ×3 (07:26→20:13)
[2016-10-12] MEDS: CA CARBONATE (250 MG/ML) 5ML CUP NGT SCH ×2 (08:52→20:45)
[2016-10-12] MEDS: ASPIRIN 81 MG TAB NGT SCH (08:52)
[2016-10-12] MEDS: FAMOTIDINE 20 MG INJ IV SCH (08:52)
[2016-10-12] MEDS: IMIPENEM-CILAST 250MG IV (PMX) 100 ML IVPB SCH (08:53)
[2016-10-12] MEDS: PRASUGREL HYDROCHLORIDE 10 MG TABLET PO SCH (08:54)
[2016-10-12] MEDS: CALCITRIOL 1 MCG INJ IV SCH (08:54)
[2016-10-12] MEDS: LINEZOLID 600 MG/D5W (PMX) 300 ML IVPB SCH ×2 (08:57→20:44)
[2016-10-12] MEDS: HEPARIN 5,000 UNIT/0.5 ML VIAL SC SCH ×2 (08:59→20:51)
--- NOTE | 2016-10-12 10:53 | CONS ---
Date/Time of Note Date/Time of Note DATE: 10/12/16 TIME: 10:52 Assessment/Plan Assessment/Plan Problems: (1) Diabetes mellitus type 1, controlled, with complications Status: Chronic Comment: Undulating but essentially stable BG values. Cont. insulin drip. Consultation Date/Type/Reason Admit Date/Time Sep 28, 2016 at 05:39 Initial Consult Date 10/01/16 Type of Consultation: Endocrinology Reason for Consultation T1DM management Referring Provider: WILMER RODRIGUEZ MD 24 HR Interval Summary Subjective hx not possible: pt non-verbal, pt critical status Exam/Review of Systems Vital Signs Vitals VS - Last 72 Hours, by Label Date Time Temp Pulse Resp B/P Pulse Ox O2 Delivery O2 Flow Rate FiO2 10/12/16 10:00 88 18 121/72 100 Mechanical Ventilator 10/12/16 09:30 96 18 106/67 100 Mechanical Ventilator 10/12/16 09:20 100 18 100 30 10/12/16 09:00 98 18 112/74 100 Mechanical Ventilator 10/12/16 08:37 30 10/12/16 08:30 95 18 114/74 100 Mechanical Ventilator 10/12/16 08:00 98.6 95 18 118/72 100 Mechanical Ventilator 10/12/16 08:00 97 10/12/16 07:30 99 18 117/69 100 Mechanical Ventilator 10/12/16 07:27 100 23 100 30 10/12/16 07:00 99 18 121/70 100 10/12/16 06:30 98 18 111/72 100 10/12/16 06:00 97.7 96 18 125/65 100 Mechanical Ventilator 10/12/16 05:30 94 18 96/64 100 10/12/16 05:21 96 18 100 30 10/12/16 05:00 94 18 118/73 100 Mechanical Ventilator 10/12/16 04:30 94 18 106/69 100 10/12/16 04:00 95 10/12/16 04:00 97.8 95 18 109/68 100 Mechanical Ventilator 10/12/16 03:30 92 13 97/67 100 10/12/16 03:26 95 18 100 30 10/12/16 03:00 96 18 106/61 100 Mechanical Ventilator 10/12/16 02:30 94 19 118/58 100 10/12/16 02:00 97.4 92 20 116/65 100 Mechanical Ventilator 10/12/16 01:30 96 18 111/70 100 10/12/16 01:00 96 18 96/69 100 Mechanical Ventilator 10/12/16 00:30 95 16 105/69 100 10/12/16 00:00 95 10/12/16 00:00 97.5 95 18 95/62 100 Mechanical Ventilator 10/11/16 23:30 94 18 99/60 100 10/11/16 23:23 94 18 99 30 10/11/16 23:00 94 18 96/58 100 Mechanical Ventilator 10/11/16 22:30 92 14 105/60 100 10/11/16 22:00 91 14 116/65 100 Mechanical Ventilator 10/11/16 21:35 92 18 100 30 10/11/16 21:30 91 18 115/65 100 10/11/16 21:00 97.5 88 10 110/61 100 Mechanical Ventilator 10/11/16 20:30 90 18 102/63 100 10/11/16 20:00 85 104/64 100 Mechanical Ventilator 10/11/16 20:00 30 10/11/16 20:00 85 10/11/16 19:38 87 18 100 30 10/11/16 19:30 86 9 115/67 100 10/11/16 19:00 97.8 84 18 114/65 100 Mechanical Ventilator 10/11/16 18:00 81 18 105/61 100 Mechanical Ventilator 10/11/16 17:30 79 18 97/57 100 Mechanical Ventilator 10/11/16 17:19 78 18 100 30 10/11/16 17:00 80 18 85/52 100 Mechanical Ventilator 10/11/16 16:30 79 18 94/61 100 Mechanical Ventilator 10/11/16 16:05 96 18 100 30 10/11/16 16:00 80 10/11/16 16:00 98.5 91 18 100/69 100 Mechanical Ventilator 10/11/16 15:45 90 18 10/11/16 15:45 90 10/11/16 15:30 95 19 91/64 100 Mechanical Ventilator 10/11/16 15:30 92 10/11/16 15:15 95 10/11/16 15:00 93 18 100/63 100 Mechanical Ventilator 10/11/16 15:00 94 10/11/16 14:45 92 18 96/62 100 Mechanical Ventilator 10/11/16 14:45 95 10/11/16 14:30 93 10/11/16 14:30 89 18 96/57 100 Mechanical Ventilator 10/11/16 14:15 92 10/11/16 14:15 91 18 91/54 100 Mechanical Ventilator 10/11/16 14:00 93 22 101/62 100 Mechanical Ventilator 10/11/16 14:00 91 10/11/16 13:55 94 18 100 30 10/11/16 13:45 91 10/11/16 13:45 90 18 101/57 100 Mechanical Ventilator 10/11/16 13:30 88 10/11/16 13:30 89 18 89/54 100 Mechanical Ventilator 10/11/16 13:15 88 10/11/16 13:00 91 10/11/16 13:00 81 18 101/62 100 Mechanical Ventilator 10/11/16 13:00 90 18 10/11/16 12:45 76 18 89/57 100 10/11/16 12:30 78 18 91/59 100 Mechanical Ventilator 10/11/16 12:15 78 18 92/63 100 10/11/16 12:00 76 10/11/16 12:00 79 18 99/61 100 Mechanical Ventilator 10/11/16 11:45 79 18 97/56 100 10/11/16 11:30 79 18 96/56 100 Mechanical Ventilator 10/11/16 11:27 79 18 100 30 10/11/16 11:15 82 18 93/54 100 10/11/16 11:00 98.5 84 18 87/52 100 Mechanical Ventilator 10/11/16 10:45 86 18 87/53 100 10/11/16 10:30 89 18 90/53 100 Mechanical Ventilator 10/11/16 10:00 101 18 95/62 100 Mechanical Ventilator 10/11/16 09:59 30 10/11/16 09:45 109 18 92/65 98 10/11/16 09:30 114 18 96/67 98 10/11/16 09:15 118 18 108/72 97 Mechanical Ventilator 10/11/16 09:10 116 24 100 30 10/11/16 08:45 115 18 127/94 100 10/11/16 08:30 114 21 163/88 95 10/11/16 08:15 110 18 122/75 100 Mechanical Ventilator 10/11/16 08:00 110 18 111/69 100 Mechanical Ventilator 10/11/16 08:00 109 10/11/16 07:30 98.9 110 20 117/67 100 Mechanical Ventilator 10/11/16 07:11 109 18 100 30 10/11/16 07:00 108 18 107/64 100 Mechanical Ventilator 10/11/16 06:15 98 18 97/62 100 10/11/16 06:00 97.3 96 20 105/57 98 Mechanical Ventilator 10/11/16 05:45 97 18 104/67 100 10/11/16 05:37 94 18 100 30 10/11/16 05:30 98 18 103/67 100 10/11/16 05:15 95 18 115/71 100 10/11/16 05:00 95 18 93/64 100 Mechanical Ventilator 10/11/16 04:45 94 18 102/70 100 10/11/16 04:30 96 18 112/69 100 10/11/16 04:15 96 18 102/69 100 10/11/16 04:00 96 10/11/16 04:00 97.2 96 18 95/68 100 Mechanical Ventilator 10/11/16 03:45 99 18 117/68 100 10/11/16 03:30 100 18 97/69 100 10/11/16 03:22 98 18 100 30 10/11/16 03:15 94 17 130/78 100 10/11/16 03:00 100 18 102/68 100 Mechanical Ventilator 10/11/16 02:45 99 18 103/68 100 10/11/16 02:30 101 16 101/66 100 10/11/16 02:15 101 19 99/64 100 10/11/16 02:00 100 18 104/70 100 Mechanical Ventilator 10/11/16 01:45 97 21 123/80 100 10/11/16 01:42 100 18 100 30 10/11/16 01:30 95 16 129/80 100 10/11/16 01:15 99 18 103/61 100 10/11/16 01:00 97.5 99 18 98/60 100 Mechanical Ventilator 10/11/16 00:45 99 18 110/63 100 10/11/16 00:30 98 18 115/67 100 10/11/16 00:15 91 18 113/63 100 10/11/16 00:00 96 10/11/16 00:00 97.5 98 18 102/67 100 Mechanical Ventilator 10/10/16 23:45 97 18 105/66 100 10/10/16 23:30 96 18 101/67 100 10/10/16 23:15 97 18 104/65 100 10/10/16 23:08 97 18 100 30 10/10/16 23:00 97.8 96 18 110/67 100 Mechanical Ventilator 10/10/16 22:45 94 18 122/71 100 10/10/16 22:30 94 18 110/70 100 10/10/16 22:15 95 18 113/71 100 10/10/16 22:00 95 18 115/71 100 Mechanical Ventilator 10/10/16 21:45 91 18 113/69 100 10/10/16 21:30 89 18 111/68 100 10/10/16 21:15 87 18 111/69 100 10/10/16 21:00 89 18 107/68 100 Mechanical Ventilator 10/10/16 20:50 89 18 100 30 10/10/16 20:45 88 18 111/72 100 10/10/16 20:30 81 16 114/73 100 10/10/16 20:15 87 16 97/68 100 10/10/16 20:00 95 10/10/16 20:00 87 18 99/65 100 Mechanical Ventilator 10/10/16 20:00 30 10/10/16 19:45 85 18 104/66 100 10/10/16 19:30 86 18 110/77 100 10/10/16 19:15 90 18 113/73 100 10/10/16 19:05 89 18 100 30 10/10/16 19:00 98.0 90 16 110/71 100 Mechanical Ventilator 10/10/16 18:00 92 18 116/72 100 Mechanical Ventilator 10/10/16 17:26 89 18 100 30 10/10/16 17:00 90 18 112/73 100 Mechanical Ventilator 10/10/16 16:45 96 17 10/10/16 16:45 103 10/10/16 16:15 104 10/10/16 16:00 30 10/10/16 16:00 98.1 106 17 102/69 100 Mechanical Ventilator 10/10/16 16:00 106 10/10/16 15:49 107 21 100 30 10/10/16 15:45 102 10/10/16 15:15 98 10/10/16 15:00 104 22 104/63 100 Mechanical Ventilator 10/10/16 14:45 96 10/10/16 14:15 94 10/10/16 14:00 89 20 121/68 100 Mechanical Ventilator 10/10/16 13:52 90 18 100 30 10/10/16 13:45 95 10/10/16 13:45 90 18 10/10/16 13:00 87 18 105/67 100 Mechanical Ventilator 10/10/16 12:00 30 10/10/16 12:00 98.1 18 107/69 100 Mechanical Ventilator 10/10/16 12:00 86 10/10/16 11:40 82 18 100 30 10/10/16 11:00 88 18 91/64 100 Mechanical Ventilator 10/10/16 10:30 89 18 96/64 100 10/10/16 10:00 87 18 108/69 100 Mechanical Ventilator 10/10/16 09:33 93 18 100 30 10/10/16 09:30 93 20 93/61 100 10/10/16 09:00 94 20 119/68 100 Mechanical Ventilator 10/10/16 08:30 97 22 135/80 100 10/10/16 08:15 95 20 124/80 100 10/10/16 08:00 93 10/10/16 08:00 30 10/10/16 08:00 98.7 93 18 119/75 100 Mechanical Ventilator 10/10/16 07:45 91 14 129/87 100 10/10/16 07:42 92 18 100 30 10/10/16 07:30 90 10 116/79 100 10/10/16 07:15 85 12 120/77 100 10/10/16 07:00 86 12 127/75 100 Mechanical Ventilator 10/10/16 06:45 87 12 113/74 100 10/10/16 06:30 90 8 95/70 100 10/10/16 06:15 91 18 100/65 100 10/10/16 06:00 97.3 93 10 109/70 100 10/10/16 05:45 96 10 112/75 100 10/10/16 05:30 98 0 114/80 100 10/10/16 05:15 98 18 117/80 100 10/10/16 05:14 97 19 100 30 10/10/16 05:00 98 13 121/80 100 10/10/16 04:45 98 22 130/81 100 10/10/16 04:30 100 36 126/81 100 10/10/16 04:15 102 8 123/75 100 10/10/16 04:00 98 10/10/16 04:00 97.3 99 34 139/82 100 10/10/16 03:45 101 17 127/75 100 10/10/16 03:30 102 17 111/72 100 10/10/16 03:15 102 18 111/67 100 10/10/16 03:12 99 21 100 30 10/10/16 03:00 102 18 111/72 100 10/10/16 02:45 101 18 112/67 100 10/10/16 02:30 97.6 102 18 115/75 100 10/10/16 02:15 104 46 139/90 100 10/10/16 02:00 104 22 131/89 100 10/10/16 01:19 100 20 100 30 10/10/16 01:15 100 11 122/82 100 10/10/16 01:00 99 10 122/74 100 10/10/16 00:45 97 104/71 100 10/10/16 00:30 94 18 108/73 100 10/10/16 00:15 96 6 109/69 100 10/10/16 00:00 95 12 114/73 100 10/10/16 00:00 108 10/09/16 23:45 92 5 112/70 100 10/09/16 23:30 91 14 97/63 98 10/09/16 23:19 94 18 100 30 10/09/16 23:15 94 96/63 100 10/09/16 23:00 97.5 92 4 117/72 100 10/09/16 22:45 97 18 108/75 100 10/09/16 22:30 100 40 128/80 100 10/09/16 22:15 100 24 128/78 100 10/09/16 22:00 97.6 100 30 131/87 100 10/09/16 21:45 100 31 127/79 100 10/09/16 21:30 99 22 117/80 100 10/09/16 21:20 99 20 100 30 10/09/16 21:15 97 33 119/75 100 10/09/16 21:00 97.7 98 40 113/78 100 10/09/16 20:45 99 36 113/78 100 10/09/16 20:30 101 38 114/74 100 10/09/16 20:15 101 28 114/75 100 10/09/16 20:00 97.7 100 43 114/71 100 10/09/16 20:00 100 10/09/16 20:00 30 10/09/16 19:45 97 25 119/75 100 10/09/16 19:31 94 18 100 30 10/09/16 19:30 94 32 118/73 100 10/09/16 19:15 96 26 123/78 100 10/09/16 19:00 97.8 93 29 118/74 100 10/09/16 17:30 91 18 107/72 100 10/09/16 17:30 88 18 100 30 10/09/16 17:00 86 18 111/76 100 10/09/16 16:30 88 18 102/71 100 10/09/16 16:00 97.7 88 18 116/77 100 10/09/16 16:00 87 10/09/16 15:30 89 18 106/65 100 10/09/16 15:19 90 19 100 30 10/09/16 15:00 91 19 107/63 100 10/09/16 14:30 88 18 105/67 100 10/09/16 14:00 89 17 105/72 100 10/09/16 13:30 88 18 109/69 100 10/09/16 13:00 89 18 113/68 100 10/09/16 12:30 90 19 121/72 100 10/09/16 12:00 97.7 88 18 101/68 100 10/09/16 12:00 88 10/09/16 11:30 85 18 103/69 100 10/09/16 11:16 87 18 100 30 10/09/16 11:00 90 18 89/64 100 Vital Signs Date Time Temp Pulse Resp B/P Pulse Ox O2 Delivery O2 Flow Rate FiO2 10/12/16 10:00 88 18 121/72 100 Mechanical Ventilator 10/12/16 09:20 30 10/12/16 08:00 98.6 Intake and Output 10/11/16 10/11/16 10/12/16 15:00 23:00 07:00 Intake Total 1188.40 ml 801.32 ml 730.84 ml Output Total 100 ml 2700 ml Balance 1088.40 ml -1898.68 ml 730.84 ml Exam Constitutional: non-verbal, No alert ENMT: intubated Respiratory: clear to auscultation, normal air movement Cardiovascular: nl pulses, regular rate and rhythm, No edema, No murmurs/extra sounds, No rub Gastrointestinal: bowel sounds, nl liver, spleen, non-tender, soft, No mass, No rebound or guarding Musculoskeletal: nl extremities to inspection Extremities: No clubbing, No cyanosis, No edema 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: unresponsive Additional Comments Bedside Glucose - 72 Hours Test 10/09/16 11:24 10/09/16 12:17 10/09/16 13:24 10/09/16 14:27 Bedside Glucose 170mg/dL (70-220) 161mg/dL (70-220) 212mg/dL (70-220) 199mg/dL (70-220) Test 10/09/16 15:26 10/09/16 16:33 10/09/16 17:46 10/09/16 19:11 Bedside Glucose 165mg/dL (70-220) 134mg/dL (70-220) 106mg/dL (70-220) 122mg/dL (70-220) Test 10/09/16 19:53 10/09/16 20:49 10/09/16 21:54 10/09/16 22:58 Bedside Glucose 129mg/dL (70-220) 125mg/dL (70-220) 133mg/dL (70-220) 152mg/dL (70-220) Test 10/09/16 23:43 10/10/16 01:18 10/10/16 02:06 10/10/16 03:24 Bedside Glucose 153mg/dL (70-220) 101mg/dL (70-220) 86mg/dL (70-220) 128mg/dL (70-220) Test 10/10/16 03:31 10/10/16 03:58 10/10/16 05:14 10/10/16 05:53 Bedside Glucose 134mg/dL (70-220) 131mg/dL (70-220) 136mg/dL (70-220) 126mg/dL (70-220) Test 10/10/16 06:49 10/10/16 08:11 10/10/16 10:18 10/10/16 11:06 Bedside Glucose 113mg/dL (70-220) 119mg/dL (70-220) 159mg/dL (70-220) 180mg/dL (70-220) Test 10/10/16 12:13 10/10/16 13:23 10/10/16 14:36 10/10/16 15:37 Bedside Glucose 183mg/dL (70-220) 139mg/dL (70-220) 133mg/dL (70-220) 135mg/dL (70-220) Test 10/10/16 16:47 10/10/16 18:24 10/10/16 20:21 10/10/16 21:59 Bedside Glucose 108mg/dL (70-220) 96mg/dL (70-220) 82mg/dL (70-220) 133mg/dL (70-220) Test 10/11/16 00:01 10/11/16 01:02 10/11/16 01:52 10/11/16 03:14 Bedside Glucose 229mg/dL (70-220) H 227mg/dL (70-220) H 171mg/dL (70-220) 134mg/dL (70-220) Test 10/11/16 04:05 10/11/16 05:04 10/11/16 05:59 10/11/16 08:18 Bedside Glucose 92mg/dL (70-220) 78mg/dL (70-220) 104mg/dL (70-220) 209mg/dL (70-220) Test 10/11/16 09:12 10/11/16 10:32 10/11/16 11:53 10/11/16 13:06 Bedside Glucose 192mg/dL (70-220) 143mg/dL (70-220) 127mg/dL (70-220) 103mg/dL (70-220) Test 10/11/16 14:27 10/11/16 15:50 10/11/16 18:25 10/11/16 20:20 Bedside Glucose 125mg/dL (70-220) 124mg/dL (70-220) 81mg/dL (70-220) 110mg/dL (70-220) Test 10/11/16 21:37 10/12/16 00:04 10/12/16 01:12 10/12/16 03:52 Bedside Glucose 198mg/dL (70-220) 140mg/dL (70-220) 126mg/dL (70-220) 90mg/dL (70-220) Test 10/12/16 05:15 10/12/16 05:30 10/12/16 08:02 10/12/16 09:40 Bedside Glucose 85mg/dL (70-220) 120mg/dL (70-220) 152mg/dL (70-220) 121mg/dL (70-220) Results Result Diagram: 10/12/16 0430 10/12/16 0430 Results 24 hrs Laboratory Tests Test 10/11/16 11:53 10/11/16 13:06 10/11/16 14:27 10/11/16 15:50 Bedside Glucose 127 103 125 124 Test 10/11/16 18:25 10/11/16 20:20 10/11/16 21:37 10/12/16 00:04 Bedside Glucose 81 110 198 140 Test 10/12/16 01:12 10/12/16 03:52 10/12/16 04:30 10/12/16 05:15 Bedside Glucose 126 90 85 White Blood Count 3.9 #L Red Blood Count 3.51 L Hemoglobin 10.1 L Hematocrit 32.5 L Mean Corpuscular Volume 92.6 Mean Corpuscular Hemoglobin 28.8 L Mean Corpuscular Hemoglobin Concent 31.1 L Red Cell Distribution Width 18.3 H Platelet Count 198 Mean Platelet Volume 12.7 H Neutrophils % 56.8 Lymphocytes % 19.0 Monocytes % 15.1 H Eosinophils % 7.8 H Basophils % 1.0 Nucleated Red Blood Cells % 0.0 Neutrophils # 2.2 Lymphocytes # 0.7 L Monocytes # 0.6 Eosinophils # 0.3 Basophils # 0.0 Nucleated Red Blood Cells # 0.0 Sodium Level 138 Potassium Level 3.7 Chloride Level 96 L Carbon Dioxide Level 28 Anion Gap 18 H Blood Urea Nitrogen 57 H Creatinine 6.69 #H Glucose Level 83 Calcium Level 8.1 L Test 10/12/16 05:30 10/12/16 08:02 10/12/16 09:40 Bedside Glucose 120 152 121 Medications Medications Current Medications Ondansetron HCl (Zofran Inj) 4 mg Q6H PRN IV NAUSEA AND/OR VOMITING; Start at 06:00 Acetaminophen (Tylenol Liquid) 650 mg Q6H PRN PO PAIN LEVEL 1-3 OR FEVER Last administered on 09/30/16 08:32; Admin Dose 650 MG; Start 09/28/16 at 06:00 Hydromorphone HCl (Dilaudid) 0.5 mg Q4H PRN IV PAIN LEVEL 7-10 Last administered on 10/11/16 09:02; Admin Dose 0.5 MG; Start 09/28/16 at 06:00 Heparin Sodium (Porcine) (Heparin (5000 Units/0.5 ml)) 5,000 unit Q12 SC Last administered on 10/12/16 08:59; Admin Dose 5,000 UNIT; Start 09/28/16 at 09:00 Famotidine 20 mg 20 mg DAILY IV Last administered on 10/12/16 08:52; Admin Dose 20 MG; Start 09/28/16 at 09:00 Propofol 100 ml @ 2.31 mls/hr Q12H IV Last administered on 10/12/16 05:58; Admin Dose 18.48 MLS/HR; Start 09/28/16 at 11:30 Midazolam HCl 50 ml @ 1 mls/hr TITRATE IV Last administered on 10/06/16 22:25 ; Admin Dose 1 MLS/HR; Start 09/28/16 at 11:30 Fentanyl (Sublimaze) 100 ml @ 2.5 mls/hr TITRATE IV Last administered on 16:48; Admin Dose 2.5 MLS/HR; Start 09/29/16 at 09:00 Acetaminophen (Tylenol Liquid) 650 mg Q4H PRN NGT PAIN AND OR ELEVATED TEMP Last administered on 10/06/16 23:16; Admin Dose 650 MG; Start 09/30/16 at 08:30 Prasugrel (Effient) 10 mg DAILY PO Last administered on 10/12/16 08:54; Admin Dose 10 MG; Start 10/02/16 at 09:00 Carvedilol 12.5 mg 12.5 mg BID NGT Last administered on 10/12/16 08:54; Admin Dose 12.5 MG; Start 10/02/16 at 21:00 Imipenem/ Cilastatin Sodium (Primaxin 250 Mg/ 100 ml (Pmx)) 100 ml @ 166.667 mls/hr Q12 IVPB Last administered on 10/12/16 08:53; Admin Dose 166.667 MLS/HR ; Start 10/05/16 at 21:00 Miscellaneous Information This patient osorio... PRN PRN XX WOUND CARE; Start 10/06 at 09:30 Norepinephrine 16 mg/Dextrose 500 ml @ 1.87 mls/hr TITRATE IV Last administered on 10/07/16 21:07; Admin Dose 37.5 MLS/HR; Start 10/06/16 at 12:00 Phenylephrine HCl/ Dextrose (Brice-Syneph/D5W) 500 ml @ 75 mls/hr TITRATE IV ; Start 10/06/16 at 12:00 Calcium Carbonate 1250 mg 1,250 mg BID NGT Last administered on 10/12/16 08:52 ; Admin Dose 1,250 MG; Start 10/07/16 at 10:30 Linezolid (Zyvox 600mg/D5W (Pmx)) 300 ml @ 300 mls/hr Q12 IVPB Last administered on 10/12/16 08:57; Admin Dose 300 MLS/HR; Start 10/07/16 at 21:00 Aspirin (Aspirin) 81 mg DAILY NGT Last administered on 10/12/16 08:52; Admin Dose 81 MG; Start 10/08/16 at 09:00 Calcitriol (Calcitriol) 1 mcg DAILY IV Last administered on 10/12/16 08:54; Admin Dose 1 MCG; Start 10/08/16 at 14:00 Miscellaneous Information 1 ea NOTE XX ; Start 10/10/16 at 15:30 Glucose (Glutose) 15 gm Q15M PRN PO DECREASED GLUCOSE; Start 10/10/16 at 15:30 Glucose (Glutose) 22.5 gm Q15M PRN PO DECREASED GLUCOSE; Start 10/10/16 at 15: 30 Dextrose (D50w Syringe) 25 ml Q15M PRN IV DECREASED GLUCOSE; Start 10/10/16 at 15:30 Dextrose (D50w Syringe) 50 ml Q15M PRN IV DECREASED GLUCOSE; Start 10/10/16 at 15:30 Glucagon (Glucagen) 1 mg Q15M PRN IM DECREASED GLUCOSE; Start 10/10/16 at 15:30 Glucose (Glutose) 15 gm Q15M PRN BUCCAL DECREASED GLUCOSE; Start 10/10/16 at 15 :30 Diphenoxylate HCl/ Atropine (Lomotil Liquid Cup) 10 ml Q8H PRN NGT LOOSE STOOLS ; Start 10/10/16 at 18:00 Diagnostic Test (Pha) (Accu-Chek) 1 ea Q1H XX Last administered on 10/12/16t 05 :41; Admin Dose 1 EA; Start 10/10/16 at 22:00 Dextrose (D50w Syringe) 25 ml Q15M PRN IV Till BS 80 mg/dL or above x2; Start 10/10/16 at 21:30 Dextrose (D50w Syringe) 50 ml Q15M PRN IV Till BS 80 mg/dL or above x2; Start 10/10/16 at 21:30 AUSTIN SANCHEZ MD Oct 12, 2016 10:53
--- NOTE | 2016-10-12 10:57 | PN ---
Date/Time of Note Date/Time of Note DATE: 10/12/16 TIME: 10:57 Assessment/Plan VTE Prophylaxis VTE Prophylaxis Intervention: other Lines/Catheters IV Catheter Type (from [facility] Saline Lock Urinary Cath still in place: No Assessment/Plan Chief Complaint/Hosp Course - Acute respiratory failure, requiring oral intubation and ventilatory support secondary to pulmonary edema. Dr. Nunez is following in pulmonology consultation. Continue ventilator support. Weaning per pulm. - Septic shock, resolving. - VRE bacteremia, continue Zyvox, continue antibiotics per ID. - End-stage renal disease, hemodialysis dependent. Dr. Hubbard is following the patient in nephrology consultation. Continue the hemodialysis per nephrology. - Diabetes mellitus type [address] Garay is following endocrinology consultation. Continue patient on insulin drip. - Peripheral arterial disease, status post vascular intervention. Continue Eliquis. - Anemia of chronic disease. Continue Epogen. - Coronary artery disease. Dr. Stephen is following in cardiology consultation. - Possible healthcare acquired pneumonia. Continue antibiotics per ID. Dr. Allison is following in ID consultation. - Possible sepsis secondary to pneumonia. Continue IV fluids and pressors for hemodynamic support, ICU care. - Transaminitis, Dr. Britt is following in gastroenterology consultation Problems: Subjective 24 Hr Interval Summary Free Text/Dictation Patient remain sedated and intubated Exam/Review of Systems Vital Signs Vitals Vital Signs Date Time Temp Pulse Resp B/P Pulse Ox O2 Delivery O2 Flow Rate FiO2 10/12/16 10:00 88 18 121/72 100 Mechanical Ventilator 10/12/16 09:20 30 10/12/16 08:00 98.6 Intake and Output 10/11/16 10/11/16 10/12/16 15:00 23:00 07:00 Intake Total 1188.40 ml 801.32 ml 730.84 ml Output Total 100 ml 2700 ml Balance 1088.40 ml -1898.68 ml 730.84 ml Exam Constitutional: well developed Head: atraumatic, normocephalic Neck: supple Respiratory: clear to auscultation Cardiovascular: regular rate and rhythm Gastrointestinal: non-tender, soft Extremities: normal pulses Results Result Diagram: 10/12/16 0430 10/12/16 0430 Results 24 hrs Laboratory Tests Test 10/11/16 11:53 10/11/16 13:06 10/11/16 14:27 10/11/16 15:50 Bedside Glucose 127 103 125 124 Test 10/11/16 18:25 10/11/16 20:20 10/11/16 21:37 10/12/16 00:04 Bedside Glucose 81 110 198 140 Test 10/12/16 01:12 10/12/16 03:52 10/12/16 04:30 10/12/16 05:15 Bedside Glucose 126 90 85 White Blood Count 3.9 #L Red Blood Count 3.51 L Hemoglobin 10.1 L Hematocrit 32.5 L Mean Corpuscular Volume 92.6 Mean Corpuscular Hemoglobin 28.8 L Mean Corpuscular Hemoglobin Concent 31.1 L Red Cell Distribution Width 18.3 H Platelet Count 198 Mean Platelet Volume 12.7 H Neutrophils % 56.8 Lymphocytes % 19.0 Monocytes % 15.1 H Eosinophils % 7.8 H Basophils % 1.0 Nucleated Red Blood Cells % 0.0 Neutrophils # 2.2 Lymphocytes # 0.7 L Monocytes # 0.6 Eosinophils # 0.3 Basophils # 0.0 Nucleated Red Blood Cells # 0.0 Sodium Level 138 Potassium Level 3.7 Chloride Level 96 L Carbon Dioxide Level 28 Anion Gap 18 H Blood Urea Nitrogen 57 H Creatinine 6.69 #H Glucose Level 83 Calcium Level 8.1 L Test 10/12/16 05:30 10/12/16 08:02 10/12/16 09:40 Bedside Glucose 120 152 121 Medications Medications Current Medications Ondansetron HCl (Zofran Inj) 4 mg Q6H PRN IV NAUSEA AND/OR VOMITING; Start at 06:00 Acetaminophen (Tylenol Liquid) 650 mg Q6H PRN PO PAIN LEVEL 1-3 OR FEVER Last administered on 09/30/16 08:32; Admin Dose 650 MG; Start 09/28/16 at 06:00 Hydromorphone HCl (Dilaudid) 0.5 mg Q4H PRN IV PAIN LEVEL 7-10 Last administered on 10/11/16 09:02; Admin Dose 0.5 MG; Start 09/28/16 at 06:00 Heparin Sodium (Porcine) (Heparin (5000 Units/0.5 ml)) 5,000 unit Q12 SC Last administered on 10/12/16 08:59; Admin Dose 5,000 UNIT; Start 09/28/16 at 09:00 Famotidine 20 mg 20 mg DAILY IV Last administered on 10/12/16 08:52; Admin Dose 20 MG; Start 09/28/16 at 09:00 Propofol 100 ml @ 2.31 mls/hr Q12H IV Last administered on 10/12/16 05:58; Admin Dose 18.48 MLS/HR; Start 09/28/16 at 11:30 Midazolam HCl 50 ml @ 1 mls/hr TITRATE IV Last administered on 10/06/16 22:25 ; Admin Dose 1 MLS/HR; Start 09/28/16 at 11:30 Fentanyl (Sublimaze) 100 ml @ 2.5 mls/hr TITRATE IV Last administered on 16:48; Admin Dose 2.5 MLS/HR; Start 09/29/16 at 09:00 Acetaminophen (Tylenol Liquid) 650 mg Q4H PRN NGT PAIN AND OR ELEVATED TEMP Last administered on 10/06/16 23:16; Admin Dose 650 MG; Start 09/30/16 at 08:30 Prasugrel (Effient) 10 mg DAILY PO Last administered on 10/12/16 08:54; Admin Dose 10 MG; Start 10/02/16 at 09:00 Carvedilol 12.5 mg 12.5 mg BID NGT Last administered on 10/12/16 08:54; Admin Dose 12.5 MG; Start 10/02/16 at 21:00 Imipenem/ Cilastatin Sodium (Primaxin 250 Mg/ 100 ml (Pmx)) 100 ml @ 166.667 mls/hr Q12 IVPB Last administered on 10/12/16 08:53; Admin Dose 166.667 MLS/HR ; Start 10/05/16 at 21:00 Miscellaneous Information This patient osorio... PRN PRN XX WOUND CARE; Start 10/06 at 09:30 Norepinephrine 16 mg/Dextrose 500 ml @ 1.87 mls/hr TITRATE IV Last administered on 10/07/16 21:07; Admin Dose 37.5 MLS/HR; Start 10/06/16 at 12:00 Phenylephrine HCl/ Dextrose (Brice-Syneph/D5W) 500 ml @ 75 mls/hr TITRATE IV ; Start 10/06/16 at 12:00 Calcium Carbonate 1250 mg 1,250 mg BID NGT Last administered on 10/12/16 08:52 ; Admin Dose 1,250 MG; Start 10/07/16 at 10:30 Linezolid (Zyvox 600mg/D5W (Pmx)) 300 ml @ 300 mls/hr Q12 IVPB Last administered on 10/12/16 08:57; Admin Dose 300 MLS/HR; Start 10/07/16 at 21:00 Aspirin (Aspirin) 81 mg DAILY NGT Last administered on 10/12/16 08:52; Admin Dose 81 MG; Start 10/08/16 at 09:00 Calcitriol (Calcitriol) 1 mcg DAILY IV Last administered on 10/12/16 08:54; Admin Dose 1 MCG; Start 10/08/16 at 14:00 Miscellaneous Information 1 ea NOTE XX ; Start 10/10/16 at 15:30 Glucose (Glutose) 15 gm Q15M PRN PO DECREASED GLUCOSE; Start 10/10/16 at 15:30 Glucose (Glutose) 22.5 gm Q15M PRN PO DECREASED GLUCOSE; Start 10/10/16 at 15: 30 Dextrose (D50w Syringe) 25 ml Q15M PRN IV DECREASED GLUCOSE; Start 10/10/16 at 15:30 Dextrose (D50w Syringe) 50 ml Q15M PRN IV DECREASED GLUCOSE; Start 10/10/16 at 15:30 Glucagon (Glucagen) 1 mg Q15M PRN IM DECREASED GLUCOSE; Start 10/10/16 at 15:30 Glucose (Glutose) 15 gm Q15M PRN BUCCAL DECREASED GLUCOSE; Start 10/10/16 at 15 :30 Diphenoxylate HCl/ Atropine (Lomotil Liquid Cup) 10 ml Q8H PRN NGT LOOSE STOOLS ; Start 10/10/16 at 18:00 Diagnostic Test (Pha) (Accu-Chek) 1 ea Q1H XX Last administered on 10/12/16 05 :41; Admin Dose 1 EA; Start 10/10/16 at 22:00 Dextrose (D50w Syringe) 25 ml Q15M PRN IV Till BS 80 mg/dL or above x2; Start 10/10/16 at 21:30 Dextrose (D50w Syringe) 50 ml Q15M PRN IV Till BS 80 mg/dL or above x2; Start 10/10/16 at 21:30 SHANTE SALDAÑA Oct 12, 2016 10:57
--- NOTE | 2016-10-12 11:27 | CONS ---
Date/Time of Note Date/Time of Note DATE: 10/12/16 TIME: 11:12 Assessment/Plan Assessment/Plan Chief Complaint/Hosp Course ID PROGRESS NOTE TOTAL ABX DAY # 16 =>+ Zyvox #6 Primaxin #8 -> DC 10/12 today s/p Vancomycin. 2. Cefepime-> DC 10/04/16 am Vanco IV -> DC 10/07 24H INTERVAL SUMMARY * Still waiting for sputum cx ordered to post ? * Clinically stable, no new issues -- unable to wean needs Trach/Peg, Mother was contacted by SW who requested wait until Thursday see if he can be weaned off the Vent * CXR 10/10/16 Mild diffuse interstitial markings again seen which are unchanged. * BCx (+)VRE - no fevers, WBC down - FEM line DC'd * BCx 10/04/16 (+)1/2 bottles LIne Sepsis => FEM line DC'd * 10/12/16 0430 10/12/16 0430 PHYSICAL EXAMINATION: GENERAL: VSS, NAD, sedated on the Vent HEENT: ETT/NGT secure NECK: Supple, trach-> midline CHEST: Equal chest rise bilaterally, without dyspnea on observation HEART: Pulse RRR ABDOMEN: Soft, benign EXTREMITIES: Warm SKIN: Warm, dry (+)Multiple Tattoos ID ASSESSMENT: 51 yo M admitted with: 1. Recurrent sepsis w/ FEVER > 103 10/04, leukocytosis -> Failed ABX de- escalation attempt SAT 10/04 = IMPROVED * Off pressors, afebrile * 10/04/16 BCx (+) 1/2 =>(+)VRE, FEM line DC'd * Status post shock on admission w/all admission cultures were negative -> ABX DC'd 10/04/16 am with recurrent sepsis within 12H 2. Respiratory failure, secondary to fluid overload, possibly aspiration event+ 3. COPD - tobacco user 4. End-stage renal disease, hemodialysis dependent-> LUEXT AVF 5. History of coronary artery disease. 6. 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 Transaminitis - liver shock (-)MRSA Nares INVASIVES: * ETT, NGT, FC, left chest Port-A-Cath. ABX ALLERGIES: MACROLIDES, ERYTHROMYCIN CURRENT ABX: TOTAL ABX DAY # 16 =>+ Zyvox #6 Primaxin #8 -> DC 10/12 today dc Vanco 10/06 s/p Vancomycin. 2. Cefepime-> DC 10/04/16 am ID RECOMMENDATIONS: 1.Zyvox for VRE coverage (VRE is resistant to Ampicillin) * If he spike temp again -> draw BCx from the Port-A-Cath 4. DC PRIMAXIN TODAY => Repeat sputum cx ' RICH? => Appears respiratory cx I ordered was not sent, have re-ordered for today * Have been waiting to taper vs DC Primaxin per results of sputum Cx 5. Unable to wean needs Trach/Peg, Mother was contacted by SW who requested wait until Thursday see if he can be weaned off the Vent . . Problems: Consultation Date/Type/Reason Admit Date/Time Sep 28, 2016 at 05:39 Initial Consult Date 10/01/16 Type of Consultation: ID Referring Provider: WILMER RODRIGUEZ MD Exam/Review of Systems Vital Signs Vitals Vital Signs Date Time Temp Pulse Resp B/P Pulse Ox O2 Delivery O2 Flow Rate FiO2 10/12/16 10:00 88 18 121/72 100 Mechanical Ventilator 10/12/16 09:20 30 10/12/16 08:00 98.6 Intake and Output 10/11/16 10/11/16 10/12/16 15:00 23:00 07:00 Intake Total 1188.40 ml 801.32 ml 730.84 ml Output Total 100 ml 2700 ml Balance 1088.40 ml -1898.68 ml 730.84 ml Results Result Diagram: 10/12/16 0430 10/12/16 0430 Results 24 hrs Laboratory Tests Test 10/11/16 11:53 10/11/16 13:06 10/11/16 14:27 10/11/16 15:50 Bedside Glucose 127 103 125 124 Test 10/11/16 18:25 10/11/16 20:20 10/11/16 21:37 10/12/16 00:04 Bedside Glucose 81 110 198 140 Test 10/12/16 01:12 10/12/16 03:52 10/12/16 04:30 10/12/16 05:15 Bedside Glucose 126 90 85 White Blood Count 3.9 #L Red Blood Count 3.51 L Hemoglobin 10.1 L Hematocrit 32.5 L Mean Corpuscular Volume 92.6 Mean Corpuscular Hemoglobin 28.8 L Mean Corpuscular Hemoglobin Concent 31.1 L Red Cell Distribution Width 18.3 H Platelet Count 198 Mean Platelet Volume 12.7 H Neutrophils % 56.8 Lymphocytes % 19.0 Monocytes % 15.1 H Eosinophils % 7.8 H Basophils % 1.0 Nucleated Red Blood Cells % 0.0 Neutrophils # 2.2 Lymphocytes # 0.7 L Monocytes # 0.6 Eosinophils # 0.3 Basophils # 0.0 Nucleated Red Blood Cells # 0.0 Sodium Level 138 Potassium Level 3.7 Chloride Level 96 L Carbon Dioxide Level 28 Anion Gap 18 H Blood Urea Nitrogen 57 H Creatinine 6.69 #H Glucose Level 83 Calcium Level 8.1 L Test 10/12/16 05:30 10/12/16 08:02 10/12/16 09:40 Bedside Glucose 120 152 121 Medications Medications Current Medications Ondansetron HCl (Zofran Inj) 4 mg Q6H PRN IV NAUSEA AND/OR VOMITING; Start at 06:00 Acetaminophen (Tylenol Liquid) 650 mg Q6H PRN PO PAIN LEVEL 1-3 OR FEVER Last administered on 09/30/16 08:32; Admin Dose 650 MG; Start 09/28/16 at 06:00 Hydromorphone HCl (Dilaudid) 0.5 mg Q4H PRN IV PAIN LEVEL 7-10 Last administered on 10/11/16 09:02; Admin Dose 0.5 MG; Start 09/28/16 at 06:00 Heparin Sodium (Porcine) (Heparin (5000 Units/0.5 ml)) 5,000 unit Q12 SC Last administered on 10/12/16 08:59; Admin Dose 5,000 UNIT; Start 09/28/16 at 09:00 Famotidine 20 mg 20 mg DAILY IV Last administered on 10/12/16 08:52; Admin Dose 20 MG; Start 09/28/16 at 09:00 Propofol 100 ml @ 2.31 mls/hr Q12H IV Last administered on 10/12/16 05:58; Admin Dose 18.48 MLS/HR; Start 09/28/16 at 11:30 Midazolam HCl 50 ml @ 1 mls/hr TITRATE IV Last administered on 10/06/16 22:25 ; Admin Dose 1 MLS/HR; Start 09/28/16 at 11:30 Fentanyl (Sublimaze) 100 ml @ 2.5 mls/hr TITRATE IV Last administered on 16:48; Admin Dose 2.5 MLS/HR; Start 09/29/16 at 09:00 Acetaminophen (Tylenol Liquid) 650 mg Q4H PRN NGT PAIN AND OR ELEVATED TEMP Last administered on 10/06/16 23:16; Admin Dose 650 MG; Start 09/30/16 at 08:30 Prasugrel (Effient) 10 mg DAILY PO Last administered on 10/12/16 08:54; Admin Dose 10 MG; Start 10/02/16 at 09:00 Carvedilol 12.5 mg 12.5 mg BID NGT Last administered on 10/12/16 08:54; Admin Dose 12.5 MG; Start 10/02/16 at 21:00 Imipenem/ Cilastatin Sodium (Primaxin 250 Mg/ 100 ml (Pmx)) 100 ml @ 166.667 mls/hr Q12 IVPB Last administered on 10/12/16 08:53; Admin Dose 166.667 MLS/HR ; Start 10/05/16 at 21:00 Miscellaneous Information This patient osorio... PRN PRN XX WOUND CARE; Start 10/06 at 09:30 Norepinephrine 16 mg/Dextrose 500 ml @ 1.87 mls/hr TITRATE IV Last administered on 10/07/16 21:07; Admin Dose 37.5 MLS/HR; Start 10/06/16 at 12:00 Phenylephrine HCl/ Dextrose (Brice-Syneph/D5W) 500 ml @ 75 mls/hr TITRATE IV ; Start 10/06/16 at 12:00 Calcium Carbonate 1250 mg 1,250 mg BID NGT Last administered on 10/12/16 08:52 ; Admin Dose 1,250 MG; Start 10/07/16 at 10:30 Linezolid (Zyvox 600mg/D5W (Pmx)) 300 ml @ 300 mls/hr Q12 IVPB Last administered on 10/12/16 08:57; Admin Dose 300 MLS/HR; Start 10/07/16 at 21:00 Aspirin (Aspirin) 81 mg DAILY NGT Last administered on 10/12/16 08:52; Admin Dose 81 MG; Start 10/08/16 at 09:00 Calcitriol (Calcitriol) 1 mcg DAILY IV Last administered on 10/12/16 08:54; Admin Dose 1 MCG; Start 10/08/16 at 14:00 Miscellaneous Information 1 ea NOTE XX ; Start 10/10/16 at 15:30 Glucose (Glutose) 15 gm Q15M PRN PO DECREASED GLUCOSE; Start 10/10/16 at 15:30 Glucose (Glutose) 22.5 gm Q15M PRN PO DECREASED GLUCOSE; Start 10/10/16 at 15: 30 Dextrose (D50w Syringe) 25 ml Q15M PRN IV DECREASED GLUCOSE; Start 10/10/16 at 15:30 Dextrose (D50w Syringe) 50 ml Q15M PRN IV DECREASED GLUCOSE; Start 10/10/16 at 15:30 Glucagon (Glucagen) 1 mg Q15M PRN IM DECREASED GLUCOSE; Start 10/10/16 at 15:30 Glucose (Glutose) 15 gm Q15M PRN BUCCAL DECREASED GLUCOSE; Start 10/10/16 at 15 :30 Diphenoxylate HCl/ Atropine (Lomotil Liquid Cup) 10 ml Q8H PRN NGT LOOSE STOOLS ; Start 10/10/16 at 18:00 Diagnostic Test (Pha) (Accu-Chek) 1 ea Q1H XX Last administered on 10/12/16 05 :41; Admin Dose 1 EA; Start 10/10/16 at 22:00 Dextrose (D50w Syringe) 25 ml Q15M PRN IV Till BS 80 mg/dL or above x2; Start 10/10/16 at 21:30 Dextrose (D50w Syringe) 50 ml Q15M PRN IV Till BS 80 mg/dL or above x2; Start 10/10/16 at 21:30 MISA CROFT NP Oct 12, 2016 11:22
--- NOTE | 2016-10-12 11:37 | CONS ---
Date/Time of Note Date/Time of Note DATE: 10/12/16 TIME: 11:36 Consult Date/Type/Reason Admit Date/Time Sep 28, 2016 at 05:39 Initial Consult Date 10/01/16 Type of Consultation: Card and Vascular Int Ordering Provider: WILMER RODRIGUEZ MD Objective Vital Signs Date Time Temp Pulse Resp B/P Pulse Ox O2 Delivery O2 Flow Rate FiO2 10/12/16 11:05 86 18 100 30 10/12/16 10:00 121/72 Mechanical Ventilator 10/12/16 08:00 98.6 Intake and Output 10/11/16 10/11/16 10/12/16 15:00 23:00 07:00 Intake Total 1188.40 ml 801.32 ml 730.84 ml Output Total 100 ml 2700 ml Balance 1088.40 ml -1898.68 ml 730.84 ml Results/Medications Result Diagram: 10/12/16 0430 10/12/16 0430 Results 24 hrs Laboratory Tests Test 10/11/16 11:53 10/11/16 13:06 10/11/16 14:27 10/11/16 15:50 Bedside Glucose 127 103 125 124 Test 10/11/16 18:25 10/11/16 20:20 10/11/16 21:37 10/12/16 00:04 Bedside Glucose 81 110 198 140 Test 10/12/16 01:12 10/12/16 03:52 10/12/16 04:30 10/12/16 05:15 Bedside Glucose 126 90 85 White Blood Count 3.9 #L Red Blood Count 3.51 L Hemoglobin 10.1 L Hematocrit 32.5 L Mean Corpuscular Volume 92.6 Mean Corpuscular Hemoglobin 28.8 L Mean Corpuscular Hemoglobin Concent 31.1 L Red Cell Distribution Width 18.3 H Platelet Count 198 Mean Platelet Volume 12.7 H Neutrophils % 56.8 Lymphocytes % 19.0 Monocytes % 15.1 H Eosinophils % 7.8 H Basophils % 1.0 Nucleated Red Blood Cells % 0.0 Neutrophils # 2.2 Lymphocytes # 0.7 L Monocytes # 0.6 Eosinophils # 0.3 Basophils # 0.0 Nucleated Red Blood Cells # 0.0 Sodium Level 138 Potassium Level 3.7 Chloride Level 96 L Carbon Dioxide Level 28 Anion Gap 18 H Blood Urea Nitrogen 57 H Creatinine 6.69 #H Glucose Level 83 Calcium Level 8.1 L Test 10/12/16 05:30 10/12/16 08:02 10/12/16 09:40 Bedside Glucose 120 152 121 Medications Current Medications Ondansetron HCl (Zofran Inj) 4 mg Q6H PRN IV NAUSEA AND/OR VOMITING; Start at 06:00 Acetaminophen (Tylenol Liquid) 650 mg Q6H PRN PO PAIN LEVEL 1-3 OR FEVER Last administered on 09/30/16 08:32; Admin Dose 650 MG; Start 09/28/16 at 06:00 Hydromorphone HCl (Dilaudid) 0.5 mg Q4H PRN IV PAIN LEVEL 7-10 Last administered on 10/11/16 09:02; Admin Dose 0.5 MG; Start 09/28/16 at 06:00 Heparin Sodium (Porcine) (Heparin (5000 Units/0.5 ml)) 5,000 unit Q12 SC Last administered on 10/12/16 08:59; Admin Dose 5,000 UNIT; Start 09/28/16 at 09:00 Famotidine 20 mg 20 mg DAILY IV Last administered on 10/12/16 08:52; Admin Dose 20 MG; Start 09/28/16 at 09:00 Propofol 100 ml @ 2.31 mls/hr Q12H IV Last administered on 10/12/16 05:58; Admin Dose 18.48 MLS/HR; Start 09/28/16 at 11:30 Midazolam HCl 50 ml @ 1 mls/hr TITRATE IV Last administered on 10/06/16 22:25 ; Admin Dose 1 MLS/HR; Start 09/28/16 at 11:30 Fentanyl (Sublimaze) 100 ml @ 2.5 mls/hr TITRATE IV Last administered on 16:48; Admin Dose 2.5 MLS/HR; Start 09/29/16 at 09:00 Acetaminophen (Tylenol Liquid) 650 mg Q4H PRN NGT PAIN AND OR ELEVATED TEMP Last administered on 10/06/16 23:16; Admin Dose 650 MG; Start 09/30/16 at 08:30 Prasugrel (Effient) 10 mg DAILY PO Last administered on 10/12/16 08:54; Admin Dose 10 MG; Start 10/02/16 at 09:00 Carvedilol (Coreg) 12.5 mg BID NGT Last administered on 10/12/16 08:54; Admin Dose 12.5 MG; Start 10/02/16 at 21:00 Miscellaneous Information This patient osorio... PRN PRN XX WOUND CARE; Start 10/06 at 09:30 Norepinephrine 16 mg/Dextrose 500 ml @ 1.87 mls/hr TITRATE IV Last administered on 10/07/16 21:07; Admin Dose 37.5 MLS/HR; Start 10/06/16 at 12:00 Phenylephrine HCl/ Dextrose (Brice-Syneph/D5W) 500 ml @ 75 mls/hr TITRATE IV ; Start 10/06/16 at 12:00 Calcium Carbonate 1250 mg 1,250 mg BID NGT Last administered on 10/12/16 08:52 ; Admin Dose 1,250 MG; Start 10/07/16 at 10:30 Linezolid (Zyvox 600mg/D5W (Pmx)) 300 ml @ 300 mls/hr Q12 IVPB Last administered on 10/12/16 08:57; Admin Dose 300 MLS/HR; Start 10/07/16 at 21:00 Aspirin (Aspirin) 81 mg DAILY NGT Last administered on 10/12/16 08:52; Admin Dose 81 MG; Start 10/08/16 at 09:00 Calcitriol (Calcitriol) 1 mcg DAILY IV Last administered on 10/12/16 08:54; Admin Dose 1 MCG; Start 10/08/16 at 14:00 Miscellaneous Information 1 ea NOTE XX ; Start 10/10/16 at 15:30 Glucose (Glutose) 15 gm Q15M PRN PO DECREASED GLUCOSE; Start 10/10/16 at 15:30 Glucose (Glutose) 22.5 gm Q15M PRN PO DECREASED GLUCOSE; Start 10/10/16 at 15: 30 Dextrose (D50w Syringe) 25 ml Q15M PRN IV DECREASED GLUCOSE; Start 10/10/16 at 15:30 Dextrose (D50w Syringe) 50 ml Q15M PRN IV DECREASED GLUCOSE; Start 10/10/16 at 15:30 Glucagon (Glucagen) 1 mg Q15M PRN IM DECREASED GLUCOSE; Start 10/10/16 at 15:30 Glucose (Glutose) 15 gm Q15M PRN BUCCAL DECREASED GLUCOSE; Start 10/10/16 at 15 :30 Diphenoxylate HCl/ Atropine (Lomotil Liquid Cup) 10 ml Q8H PRN NGT LOOSE STOOLS ; Start 10/10/16 at 18:00 Diagnostic Test (Pha) (Accu-Chek) 1 ea Q1H XX Last administered on 10/12/16t 05 :41; Admin Dose 1 EA; Start 10/10/16 at 22:00 Dextrose (D50w Syringe) 25 ml Q15M PRN IV Till BS 80 mg/dL or above x2; Start 10/10/16 at 21:30 Dextrose (D50w Syringe) 50 ml Q15M PRN IV Till BS 80 mg/dL or above x2; Start 10/10/16 at 21:30 Assessment/Plan Chief Complaint/Hosp Course Patient is know pt to me, he has CAD with s/p PCI of [employer]AD [employer] by me, PTCA and stenting of Right SFA as well as Left SFA, ESRD on HD, HTN, DM on insulin pump, who came in to ER with pulm edema and acute rest failure, intubated in ICU now. mild elevated trop and non ischemic EKG. Problems: Additional Assessment/Plan Pt stil lintubated BP stable failed weaning on Weaning again today will see how he does. it will .CYNDIE Murray MD Oct 12, 2016 11:37
--- NOTE | 2016-10-12 11:39 | CONS ---
Date/Time of Note Date/Time of Note DATE: 10/12/16 TIME: 11:35 Assessment/Plan Assessment/Plan Additional Assessment/Plan Ventilator settings; AC of 18, tidal volume 600, PEEP of 5, 30% FiO2. Patient has been on propofol drip at 50 mics per kilo per minute which has been on hold. Next Assessment recommendations; 1. The patient admitted with respiratory failure due to acute pulmonary edema and pneumonia. 2. Interval improvement in mental status. 3. Interval reduction in secretions coming through endotracheal tube that will now facilitate weaning from ventilator. 4. History of renal failure, on hemodialysis. Patient has been switched over to CPAP mode. An ABG will be performed in about 30 minutes. If the numbers are adequate patient will be extubated. Meanwhile continue current treatment. 35 minutes of critical care time was spent evaluating the patient. Consultation Date/Type/Reason Admit Date/Time Sep 28, 2016 at 05:39 Initial Consult Date 09/28/16 Type of Consultation: Pulmonary/critical care Referring Provider: WILMER RODRIGUEZ MD 24 HR Interval Summary Free Text/Dictation Patient condition remains critical but the patient remained hemodynamically stable. Patient has been taken off sedation short while ago and has been switched over to CPAP mode and is currently exhibiting adequate weaning parameters. There has been marked reduction in secretions coming through the endotracheal tube. Patient mental status also is markedly improved as well. Next General exam; middle-aged male, awake, orally intubated, currently in no distress, awake and alert. Exam/Review of Systems Vital Signs Vitals Vital Signs Date Time Temp Pulse Resp B/P Pulse Ox O2 Delivery O2 Flow Rate FiO2 10/12/16 11:05 86 18 100 30 10/12/16 10:00 121/72 Mechanical Ventilator 10/12/16 08:00 98.6 Intake and Output 10/11/16 10/11/16 10/12/16 15:00 23:00 07:00 Intake Total 1188.40 ml 801.32 ml 730.84 ml Output Total 100 ml 2700 ml Balance 1088.40 ml -1898.68 ml 730.84 ml Exam HEENT exam is; supple neck, no JVD. No lymphadenopathy. Midline trachea. No thyromegaly. Orally intubated. Patient has a multiple carious teeth. Pupils are small bilaterally. Chest examination; diminished but clear vessel. S1-S2 audible, no murmurs. Regular rhythm. Abdomen examination; soft, nondistended. No organomegaly. Bowel sounds audible. Extremity exam is regular no peripheral edema. Pulses 1+ bilaterally. No clubbing. TRANSPORTATION ASSISTANT examination; patient is awake, alert, follows commands and moves all 4 extremities. Results Result Diagram: 10/12/16 0430 10/12/16 0430 Results 24 hrs Laboratory Tests Test 10/11/16 11:53 10/11/16 13:06 10/11/16 14:27 10/11/16 15:50 Bedside Glucose 127 103 125 124 Test 10/11/16 18:25 10/11/16 20:20 10/11/16 21:37 10/12/16 00:04 Bedside Glucose 81 110 198 140 Test 10/12/16 01:12 10/12/16 03:52 10/12/16 04:30 10/12/16 05:15 Bedside Glucose 126 90 85 White Blood Count 3.9 #L Red Blood Count 3.51 L Hemoglobin 10.1 L Hematocrit 32.5 L Mean Corpuscular Volume 92.6 Mean Corpuscular Hemoglobin 28.8 L Mean Corpuscular Hemoglobin Concent 31.1 L Red Cell Distribution Width 18.3 H Platelet Count 198 Mean Platelet Volume 12.7 H Neutrophils % 56.8 Lymphocytes % 19.0 Monocytes % 15.1 H Eosinophils % 7.8 H Basophils % 1.0 Nucleated Red Blood Cells % 0.0 Neutrophils # 2.2 Lymphocytes # 0.7 L Monocytes # 0.6 Eosinophils # 0.3 Basophils # 0.0 Nucleated Red Blood Cells # 0.0 Sodium Level 138 Potassium Level 3.7 Chloride Level 96 L Carbon Dioxide Level 28 Anion Gap 18 H Blood Urea Nitrogen 57 H Creatinine 6.69 #H Glucose Level 83 Calcium Level 8.1 L Test 10/12/16 05:30 10/12/16 08:02 10/12/16 09:40 Bedside Glucose 120 152 121 Medications Medications Current Medications Ondansetron HCl (Zofran Inj) 4 mg Q6H PRN IV NAUSEA AND/OR VOMITING; Start at 06:00 Acetaminophen (Tylenol Liquid) 650 mg Q6H PRN PO PAIN LEVEL 1-3 OR FEVER Last administered on 09/30/16t 08:32; Admin Dose 650 MG; Start 09/28/16 at 06:00 Hydromorphone HCl (Dilaudid) 0.5 mg Q4H PRN IV PAIN LEVEL 7-10 Last administered on 10/11/16 09:02; Admin Dose 0.5 MG; Start 09/28/16 at 06:00 Heparin Sodium (Porcine) (Heparin (5000 Units/0.5 ml)) 5,000 unit Q12 SC Last administered on 10/12/16 08:59; Admin Dose 5,000 UNIT; Start 09/28/16 at 09:00 Famotidine 20 mg 20 mg DAILY IV Last administered on 10/12/16 08:52; Admin Dose 20 MG; Start 09/28/16 at 09:00 Propofol 100 ml @ 2.31 mls/hr Q12H IV Last administered on 10/12/16 05:58; Admin Dose 18.48 MLS/HR; Start 09/28/16 at 11:30 Midazolam HCl 50 ml @ 1 mls/hr TITRATE IV Last administered on 10/06/16 22:25 ; Admin Dose 1 MLS/HR; Start 09/28/16 at 11:30 Fentanyl (Sublimaze) 100 ml @ 2.5 mls/hr TITRATE IV Last administered on 16:48; Admin Dose 2.5 MLS/HR; Start 09/29/16 at 09:00 Acetaminophen (Tylenol Liquid) 650 mg Q4H PRN NGT PAIN AND OR ELEVATED TEMP Last administered on 10/06/16 23:16; Admin Dose 650 MG; Start 09/30/16 at 08:30 Prasugrel (Effient) 10 mg DAILY PO Last administered on 10/12/16 08:54; Admin Dose 10 MG; Start 10/02/16 at 09:00 Carvedilol (Coreg) 12.5 mg BID NGT Last administered on 10/12/16 08:54; Admin Dose 12.5 MG; Start 10/02/16 at 21:00 Miscellaneous Information This patient osorio... PRN PRN XX WOUND CARE; Start 10/06 at 09:30 Norepinephrine 16 mg/Dextrose 500 ml @ 1.87 mls/hr TITRATE IV Last administered on 10/07/16 21:07; Admin Dose 37.5 MLS/HR; Start 10/06/16 at 12:00 Phenylephrine HCl/ Dextrose (Brice-Syneph/D5W) 500 ml @ 75 mls/hr TITRATE IV ; Start 10/06/16 at 12:00 Calcium Carbonate 1250 mg 1,250 mg BID NGT Last administered on 10/12/16 08:52 ; Admin Dose 1,250 MG; Start 10/07/16 at 10:30 Linezolid (Zyvox 600mg/D5W (Pmx)) 300 ml @ 300 mls/hr Q12 IVPB Last administered on 10/12/16 08:57; Admin Dose 300 MLS/HR; Start 10/07/16 at 21:00 Aspirin (Aspirin) 81 mg DAILY NGT Last administered on 10/12/16 08:52; Admin Dose 81 MG; Start 10/08/16 at 09:00 Calcitriol (Calcitriol) 1 mcg DAILY IV Last administered on 10/12/16 08:54; Admin Dose 1 MCG; Start 10/08/16 at 14:00 Miscellaneous Information 1 ea NOTE XX ; Start 10/10/16 at 15:30 Glucose (Glutose) 15 gm Q15M PRN PO DECREASED GLUCOSE; Start 10/10/16 at 15:30 Glucose (Glutose) 22.5 gm Q15M PRN PO DECREASED GLUCOSE; Start 10/10/16 at 15: 30 Dextrose (D50w Syringe) 25 ml Q15M PRN IV DECREASED GLUCOSE; Start 10/10/16 at 15:30 Dextrose (D50w Syringe) 50 ml Q15M PRN IV DECREASED GLUCOSE; Start 10/10/16 at 15:30 Glucagon (Glucagen) 1 mg Q15M PRN IM DECREASED GLUCOSE; Start 10/10/16 at 15:30 Glucose (Glutose) 15 gm Q15M PRN BUCCAL DECREASED GLUCOSE; Start 10/10/16 at 15 :30 Diphenoxylate HCl/ Atropine (Lomotil Liquid Cup) 10 ml Q8H PRN NGT LOOSE STOOLS ; Start 10/10/16 at 18:00 Diagnostic Test (Pha) (Accu-Chek) 1 ea Q1H XX Last administered on 10/12/16 05 :41; Admin Dose 1 EA; Start 10/10/16 at 22:00 Dextrose (D50w Syringe) 25 ml Q15M PRN IV Till BS 80 mg/dL or above x2; Start 10/10/16 at 21:30 Dextrose (D50w Syringe) 50 ml Q15M PRN IV Till BS 80 mg/dL or above x2; Start 10/10/16 at 21:30 ELTON FELIX Oct 12, 2016 11:39
--- NOTE | 2016-10-12 11:43 | CONS ---
Date/Time of Note Date/Time of Note DATE: 10/12/16 TIME: 11:41 Assessment/Plan Assessment/Plan Additional Assessment/Plan - Acute respiratory failure, requiring oral intubation and ventilatory support secondary to pulmonary edema. cont agressive hd, hd again today. pulm following. wean hopefully today post hd - VRE bacteremia, continue Zyvox, continue antibiotics per ID. - End-stage renal disease, hemodialysis dependent. s/p hd yesterday and plan for hd again today - Diabetes mellitus type [address] Garay is following endocrinology consultation. Continue patient on insulin drip. - Peripheral arterial disease, status post vascular intervention. Continue Eliquis. - Anemia of chronic disease. Continue Epogen. - Coronary artery disease. Dr. Stephen is following in cardiology consultation. - Possible healthcare acquired pneumonia. Continue antibiotics per ID. Dr. Allison is following in ID consultation. - Possible sepsis secondary to pneumonia. Continue IV fluids and pressors for hemodynamic support, ICU care. - Transaminitis, Dr. Britt is following in gastroenterology consultation Consultation Date/Type/Reason Admit Date/Time Sep 28, 2016 at 05:39 Initial Consult Date 10/01/16 Type of Consultation: Pulmonary/critical care Referring Provider: WILMER RODRIGUEZ MD 24 HR Interval Summary Free Text/Dictation sedated/ on vent . hopefully will start weaning today Exam/Review of Systems Vital Signs Vitals Vital Signs Date Time Temp Pulse Resp B/P Pulse Ox O2 Delivery O2 Flow Rate FiO2 10/12/16 11:05 86 18 100 30 10/12/16 10:00 121/72 Mechanical Ventilator 10/12/16 08:00 98.6 Intake and Output 10/11/16 10/11/16 10/12/16 15:00 23:00 07:00 Intake Total 1188.40 ml 801.32 ml 730.84 ml Output Total 100 ml 2700 ml Balance 1088.40 ml -1898.68 ml 730.84 ml Exam Constitutional: other (orally intubated/ sedated) Head: normocephalic Neck: non-tender, supple Respiratory: diminished breath sounds Cardiovascular: edema, regular rate and rhythm Gastrointestinal: non-tender, soft Results Result Diagram: 10/12/16 0430 10/12/16 0430 Results 24 hrs Laboratory Tests Test 10/11/16 11:53 10/11/16 13:06 10/11/16 14:27 10/11/16 15:50 Bedside Glucose 127 103 125 124 Test 10/11/16 18:25 10/11/16 20:20 10/11/16 21:37 10/12/16 00:04 Bedside Glucose 81 110 198 140 Test 10/12/16 01:12 10/12/16 03:52 10/12/16 04:30 10/12/16 05:15 Bedside Glucose 126 90 85 White Blood Count 3.9 #L Red Blood Count 3.51 L Hemoglobin 10.1 L Hematocrit 32.5 L Mean Corpuscular Volume 92.6 Mean Corpuscular Hemoglobin 28.8 L Mean Corpuscular Hemoglobin Concent 31.1 L Red Cell Distribution Width 18.3 H Platelet Count 198 Mean Platelet Volume 12.7 H Neutrophils % 56.8 Lymphocytes % 19.0 Monocytes % 15.1 H Eosinophils % 7.8 H Basophils % 1.0 Nucleated Red Blood Cells % 0.0 Neutrophils # 2.2 Lymphocytes # 0.7 L Monocytes # 0.6 Eosinophils # 0.3 Basophils # 0.0 Nucleated Red Blood Cells # 0.0 Sodium Level 138 Potassium Level 3.7 Chloride Level 96 L Carbon Dioxide Level 28 Anion Gap 18 H Blood Urea Nitrogen 57 H Creatinine 6.69 #H Glucose Level 83 Calcium Level 8.1 L Test 10/12/16 05:30 10/12/16 08:02 10/12/16 09:40 Bedside Glucose 120 152 121 Medications Medications Current Medications Ondansetron HCl (Zofran Inj) 4 mg Q6H PRN IV NAUSEA AND/OR VOMITING; Start at 06:00 Acetaminophen (Tylenol Liquid) 650 mg Q6H PRN PO PAIN LEVEL 1-3 OR FEVER Last administered on 09/30/16 08:32; Admin Dose 650 MG; Start 09/28/16 at 06:00 Hydromorphone HCl (Dilaudid) 0.5 mg Q4H PRN IV PAIN LEVEL 7-10 Last administered on 10/11/16 09:02; Admin Dose 0.5 MG; Start 09/28/16 at 06:00 Heparin Sodium (Porcine) (Heparin (5000 Units/0.5 ml)) 5,000 unit Q12 SC Last administered on 10/12/16 08:59; Admin Dose 5,000 UNIT; Start 09/28/16 at 09:00 Famotidine 20 mg 20 mg DAILY IV Last administered on 10/12/16 08:52; Admin Dose 20 MG; Start 09/28/16 at 09:00 Propofol 100 ml @ 2.31 mls/hr Q12H IV Last administered on 10/12/16 05:58; Admin Dose 18.48 MLS/HR; Start 09/28/16 at 11:30 Midazolam HCl 50 ml @ 1 mls/hr TITRATE IV Last administered on 10/06/16 22:25 ; Admin Dose 1 MLS/HR; Start 09/28/16 at 11:30 Fentanyl (Sublimaze) 100 ml @ 2.5 mls/hr TITRATE IV Last administered on 16:48; Admin Dose 2.5 MLS/HR; Start 09/29/16 at 09:00 Acetaminophen (Tylenol Liquid) 650 mg Q4H PRN NGT PAIN AND OR ELEVATED TEMP Last administered on 10/06/16 23:16; Admin Dose 650 MG; Start 09/30/16 at 08:30 Prasugrel (Effient) 10 mg DAILY PO Last administered on 10/12/16 08:54; Admin Dose 10 MG; Start 10/02/16 at 09:00 Carvedilol (Coreg) 12.5 mg BID NGT Last administered on 10/12/16 08:54; Admin Dose 12.5 MG; Start 10/02/16 at 21:00 Miscellaneous Information This patient osorio... PRN PRN XX WOUND CARE; Start 10/06 at 09:30 Norepinephrine 16 mg/Dextrose 500 ml @ 1.87 mls/hr TITRATE IV Last administered on 10/07/16 21:07; Admin Dose 37.5 MLS/HR; Start 10/06/16 at 12:00 Phenylephrine HCl/ Dextrose (Brice-Syneph/D5W) 500 ml @ 75 mls/hr TITRATE IV ; Start 10/06/16 at 12:00 Calcium Carbonate 1250 mg 1,250 mg BID NGT Last administered on 10/12/16 08:52 ; Admin Dose 1,250 MG; Start 10/07/16 at 10:30 Linezolid (Zyvox 600mg/D5W (Pmx)) 300 ml @ 300 mls/hr Q12 IVPB Last administered on 10/12/16 08:57; Admin Dose 300 MLS/HR; Start 10/07/16 at 21:00 Aspirin (Aspirin) 81 mg DAILY NGT Last administered on 10/12/16 08:52; Admin Dose 81 MG; Start 10/08/16 at 09:00 Calcitriol (Calcitriol) 1 mcg DAILY IV Last administered on 10/12/16 08:54; Admin Dose 1 MCG; Start 10/08/16 at 14:00 Miscellaneous Information 1 ea NOTE XX ; Start 10/10/16 at 15:30 Glucose (Glutose) 15 gm Q15M PRN PO DECREASED GLUCOSE; Start 10/10/16 at 15:30 Glucose (Glutose) 22.5 gm Q15M PRN PO DECREASED GLUCOSE; Start 10/10/16 at 15: 30 Dextrose (D50w Syringe) 25 ml Q15M PRN IV DECREASED GLUCOSE; Start 10/10/16 at 15:30 Dextrose (D50w Syringe) 50 ml Q15M PRN IV DECREASED GLUCOSE; Start 10/10/16 at 15:30 Glucagon (Glucagen) 1 mg Q15M PRN IM DECREASED GLUCOSE; Start 10/10/16 at 15:30 Glucose (Glutose) 15 gm Q15M PRN BUCCAL DECREASED GLUCOSE; Start 10/10/16 at 15 :30 Diphenoxylate HCl/ Atropine (Lomotil Liquid Cup) 10 ml Q8H PRN NGT LOOSE STOOLS ; Start 10/10/16 at 18:00 Diagnostic Test (Pha) (Accu-Chek) 1 ea Q1H XX Last administered on 10/12/16 05 :41; Admin Dose 1 EA; Start 10/10/16 at 22:00 Dextrose (D50w Syringe) 25 ml Q15M PRN IV Till BS 80 mg/dL or above x2; Start 10/10/16 at 21:30 Dextrose (D50w Syringe) 50 ml Q15M PRN IV Till BS 80 mg/dL or above x2; Start 10/10/16 at 21:30 VITA REBOLLEDO MD Oct 12, 2016 11:43
--- NOTE | 2016-10-12 17:07 | RADRPT ---
PROCEDURE: XR Chest. CLINICAL INDICATION: Intubated TECHNIQUE: Anterior chest x-ray. COMPARISON: 08/21/2016 FINDINGS: Endotracheal tube terminates 2.5 cm above the lay. Nasogastric tube terminates in the stomach. Left-sided Port-A-Cath catheter is unchanged from previous exam. There is elevation left hemidiaphragm with mild consolidation left lung base with partly obscured le ft hemidiaphragm. There is new mild consolidation in the right infrahilar region. The lungs are otherwise clear. No pleural effusion identified. There is no evidence of pneumothorax. The cardiomediastinal silhouette is unremarkable. The soft tissues are normal. Osseous structures are unremarkable. IMPRESSION: 1. Satisfactory position of endotracheal tube and nasogastric tube. 2. New atelectasis versus infiltrate in the right infrahilar region. 3. New Volume loss in the left lung base with elevation left hemidiaphragm and mild basilar consoli dation. RPTAT: QQ .Jaguar Ernandez MD, MD Date Time Electronically viewed and signed by .Jaguar Ernandez MD, on 10/12/2016 17:06 .M/
[2016-10-12] MEDS: INSULIN HUMAN REGULAR 100 UNIT in SOD CHLORIDE 0.9% 99 ML IV SCH (23:08)
[2016-10-13] VITALS (73 sets, daily range): BP systolic 90–147; BP diastolic 64–88; PULSE 77–103; RESP 9–20
[2016-10-13] MEDS: ACCU-CHEK XX SCH ×25 (00:04→23:01)
[2016-10-13] MEDS: PROPOFOL 100 ML IV SCH ×5 (00:41→19:00)
[2016-10-13] MEDS: ALBUTEROL 18 GM INHALER INH SCH ×4 (01:42→19:58)
[2016-10-13 05:54] LABS: ADD SCAN DIFF NO
[2016-10-13 06:03] LABS: BASOPHIL # 0.1 10^3/ul (0.0-0.1); BASOPHILS % 1.5 % (0.0-2.0); EOSINOPHILS # 0.3 10^3/ul (0.0-0.5); EOSINOPHILS % 6.9 % (0.0-7.0); HEMATOCRIT 32.9 % (42.0-52.0); HEMOGLOBIN 10.5 g/dl (14.0-18.0); LYMPHOCYTES # 0.9 10^3/ul (0.8-2.9); LYMPHOCYTES % 21.3 % (15.0-51.0); MEAN CORPUSCULAR HEMOGLOBIN 29.3 pg (29.0-33.0); MEAN CORPUSCULAR HGB CONC 31.9 g/dl (32.0-37.0); MEAN CORPUSCULAR VOLUME 91.9 fl (82.0-101.0); MEAN PLATELET VOLUME 12.3 fl (7.4-10.4); MONOCYTE # 0.6 10^3/ul (0.3-0.9); MONOCYTES % 14.5 % (0.0-11.0); NEUTROPHIL # 2.3 10^3/ul (1.6-7.5); NEUTROPHILS % 55.3 % (39.0-77.0); PLATELET COUNT 226 10^3/UL (140-415); RED BLOOD COUNT 3.58 10^6/ul (4.70-6.10); RED CELL DISTRIBUTION WIDTH 17.5 % (11.5-14.5); WHITE BLOOD COUNT 4.1 10^3/ul (4.8-10.8)
[2016-10-13 06:42] LABS: ALBUMIN 3.1 g/dl (3.3-4.9); ALBUMIN/GLOBULIN RATIO 0.96; CALCIUM 8.6 mg/dl (8.4-10.2); CREATININE 6.21 mg/dl (0.61-1.24); PHOSPHORUS 7.2 mg/dl (2.5-4.9); POTASSIUM 3.9 mmol/L (3.5-5.1); TOTAL PROTEIN 6.3 g/dl (6.1-8.1)
[2016-10-13] MEDS: IPRATROPIUM (HFA) 12.9 GM INHALER INH SCH ×3 (08:36→14:20)
[2016-10-13] MEDS: CALCITRIOL 1 MCG INJ IV SCH (08:41)
[2016-10-13] MEDS: ASPIRIN 81 MG TAB NGT SCH (08:41)
[2016-10-13] MEDS: PRASUGREL HYDROCHLORIDE 10 MG TABLET PO SCH (08:42)
[2016-10-13] MEDS: FAMOTIDINE 20 MG INJ IV SCH (08:42)
[2016-10-13] MEDS: LINEZOLID 600 MG/D5W (PMX) 300 ML IVPB SCH ×2 (08:42→20:38)
[2016-10-13] MEDS: CA CARBONATE (250 MG/ML) 5ML CUP NGT SCH ×2 (08:42→20:38)
[2016-10-13] MEDS: HEPARIN 5,000 UNIT/0.5 ML VIAL SC SCH ×2 (08:44→20:41)
--- NOTE | 2016-10-13 09:45 | RADRPT ---
PROCEDURE: XR Chest. CLINICAL INDICATION: Shortness of breath. TECHNIQUE: Single frontal view. COMPARISON: 10/12/2016. FINDINGS: The endotracheal tube, nasogastric tube, and left-sided Port-A-Cath remain in satisfactory position. There is mild atelectasis at the lung bases, unchanged. The lungs are otherwise clear. The heart size is normal. There is no pleural effusion. There is no pneumothorax. IMPRESSION: 1. No change from 10/12/2016. RPTAT: QQ .Alan Cordero MD, MD Date Time Electronically viewed and signed by .Alan Cordero MD, MD on 10/13/2016 09:45 .R/
--- NOTE | 2016-10-13 09:48 | CONS ---
Date/Time of Note Date/Time of Note DATE: 10/13/16 TIME: 09:45 Assessment/Plan Assessment/Plan Additional Assessment/Plan Chest x-ray was reviewed from yesterday evening which is essentially clear. Endotracheal tube is at an adequate level. Next Current ventilator settings are assist control of 18 tidal volume 600, PEEP of 5 , 30% FiO2. Patient currently on insulin drip at 5 U/h, propofol 40 mics micrograms per minute. Assessment recommendations; 1. Patient admitted with respiratory failure due to pulmonary edema as well as bilateral pneumonia with marked radiological improvement. 2. Chronic renal failure. On hemodialysis. 3. Failure to be weaned off from ventilator despite multiple attempts. Continue current treatment. Patient will need to have a tracheostomy and G- tube placed. I did have a discussion regarding that with the patient's mother this last Thursday and she has been agreeable to it. Next Prognosis is guarded. Consultation Date/Type/Reason Admit Date/Time Sep 28, 2016 at 05:39 Initial Consult Date 09/28/16 Type of Consultation: Pulmonary/critical care Referring Provider: WILMER RODRIGUEZ MD 24 HR Interval Summary Free Text/Dictation Patient condition remains critical. Patient has been unable to be weaned off from ventilator due to copious secretions coming from endotracheal tube whenever the patient is off sedation. Patient also was given a prolonged weaning trial yesterday morning which he did not pass and had to be re-sedated and put back on assist control mode. General exam; middle-aged male, orally intubated, sedated, currently in no distress. Exam/Review of Systems Vital Signs Vitals Vital Signs Date Time Temp Pulse Resp B/P Pulse Ox O2 Delivery O2 Flow Rate FiO2 10/13/16 08:00 78 10/13/16 07:00 18 100/64 100 Mechanical Ventilator 10/13/16 05:46 30 10/13/16 04:00 98.2 Intake and Output 10/12/16 10/12/16 10/13/16 15:00 23:00 07:00 Intake Total 974.94 ml 1377.84 ml 654.55 ml Output Total 300 ml 3500 ml 200 ml Balance 674.94 ml -2122.16 ml 454.55 ml Exam HEENT examination; supple neck, positive JVD. No lymphadenopathy. Midline trachea. Orally intubated. Patient has carious teeth. Pupils are small bilaterally. No neck masses. No thyromegaly. Chest examination; clear to auscultation. S1-S2 audible, no murmurs. Regular rhythm. Abdomen examination; soft, nondistended. No organomegaly. Bowel sounds audible. Extremity exam is; no peripheral edema. Pulses 1+ bilaterally. 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 Results Result Diagram: 10/13/16 0500 10/13/16 0500 Results 24 hrs Laboratory Tests Test 10/12/16 12:30 10/12/16 14:05 10/12/16 16:05 10/12/16 18:10 Bedside Glucose 95 118 125 143 Test 10/12/16 20:34 10/12/16 21:46 10/12/16 22:31 10/12/16 23:02 Bedside Glucose 119 159 143 128 Test 10/13/16 00:04 10/13/16 01:01 10/13/16 02:06 10/13/16 03:14 Bedside Glucose 110 103 138 143 Test 10/13/16 04:29 10/13/16 05:00 10/13/16 05:27 10/13/16 06:20 Bedside Glucose 124 116 126 White Blood Count 4.1 L Red Blood Count 3.58 L Hemoglobin 10.5 L Hematocrit 32.9 L Mean Corpuscular Volume 91.9 Mean Corpuscular Hemoglobin 29.3 Mean Corpuscular Hemoglobin Concent 31.9 L Red Cell Distribution Width 17.5 H Platelet Count 226 Mean Platelet Volume 12.3 H Neutrophils % 55.3 Lymphocytes % 21.3 Monocytes % 14.5 H Eosinophils % 6.9 Basophils % 1.5 Nucleated Red Blood Cells % 0.0 Neutrophils # 2.3 Lymphocytes # 0.9 Monocytes # 0.6 Eosinophils # 0.3 Basophils # 0.1 Nucleated Red Blood Cells # 0.0 Sodium Level 133 L Potassium Level 3.9 Chloride Level 97 Carbon Dioxide Level 26 Anion Gap 14 Blood Urea Nitrogen 48 H Creatinine 6.21 H Glucose Level 118 Calcium Level 8.6 Phosphorus Level 7.2 H Total Bilirubin 0.0 L Direct Bilirubin 0.00 Indirect Bilirubin 0.0 Aspartate Amino Transf (AST/SGOT) 84 H Alanine Aminotransferase (ALT/SGPT) 215 H Alkaline Phosphatase 297 H Total Protein 6.3 Albumin 3.1 L Globulin 3.20 Albumin/Globulin Ratio 0.96 Test 10/13/16 07:01 10/13/16 08:38 Bedside Glucose 113 127 Medications Medications Current Medications Ondansetron HCl (Zofran Inj) 4 mg Q6H PRN IV NAUSEA AND/OR VOMITING; Start at 06:00 Acetaminophen (Tylenol Liquid) 650 mg Q6H PRN PO PAIN LEVEL 1-3 OR FEVER Last administered on 09/30/16 08:32; Admin Dose 650 MG; Start 09/28/16 at 06:00 Hydromorphone HCl (Dilaudid) 0.5 mg Q4H PRN IV PAIN LEVEL 7-10 Last administered on 10/11/16 09:02; Admin Dose 0.5 MG; Start 09/28/16 at 06:00 Heparin Sodium (Porcine) (Heparin (5000 Units/0.5 ml)) 5,000 unit Q12 SC Last administered on 10/13/16 08:44; Admin Dose 5,000 UNIT; Start 09/28/16 at 09:00 Famotidine 20 mg 20 mg DAILY IV Last administered on 10/13/16 08:42; Admin Dose 20 MG; Start 09/28/16 at 09:00 Propofol 100 ml @ 2.31 mls/hr Q12H IV Last administered on 10/13/16 05:38; Admin Dose 18.48 MLS/HR; Start 09/28/16 at 11:30 Midazolam HCl 50 ml @ 1 mls/hr TITRATE IV Last administered on 10/06/16 22:25 ; Admin Dose 1 MLS/HR; Start 09/28/16 at 11:30 Fentanyl (Sublimaze) 100 ml @ 2.5 mls/hr TITRATE IV Last administered on 16:48; Admin Dose 2.5 MLS/HR; Start 09/29/16 at 09:00 Acetaminophen (Tylenol Liquid) 650 mg Q4H PRN NGT PAIN AND OR ELEVATED TEMP Last administered on 10/06/16 23:16; Admin Dose 650 MG; Start 09/30/16 at 08:30 Prasugrel (Effient) 10 mg DAILY PO Last administered on 10/13/16 08:42; Admin Dose 10 MG; Start 10/02/16 at 09:00 Carvedilol (Coreg) 12.5 mg BID NGT Last administered on 10/12/16 20:52; Admin Dose 12.5 MG; Start 10/02/16 at 21:00 Miscellaneous Information This patient osorio... PRN PRN XX WOUND CARE; Start 10/06 at 09:30 Norepinephrine 16 mg/Dextrose 500 ml @ 1.87 mls/hr TITRATE IV Last administered on 10/07/16 21:07; Admin Dose 37.5 MLS/HR; Start 10/06/16 at 12:00 Phenylephrine HCl/ Dextrose (Brice-Syneph/D5W) 500 ml @ 75 mls/hr TITRATE IV ; Start 10/06/16 at 12:00 Calcium Carbonate 1250 mg 1,250 mg BID NGT Last administered on 10/13/16 08:42 ; Admin Dose 1,250 MG; Start 10/07/16 at 10:30 Linezolid (Zyvox 600mg/D5W (Pmx)) 300 ml @ 300 mls/hr Q12 IVPB Last administered on 10/13/16 08:42; Admin Dose 300 MLS/HR; Start 10/07/16 at 21:00 Aspirin (Aspirin) 81 mg DAILY NGT Last administered on 10/13/16 08:41; Admin Dose 81 MG; Start 10/08/16 at 09:00 Calcitriol (Calcitriol) 1 mcg DAILY IV Last administered on 10/13/16 08:41; Admin Dose 1 MCG; Start 10/08/16 at 14:00 Miscellaneous Information 1 ea NOTE XX ; Start 10/10/16 at 15:30 Glucose (Glutose) 15 gm Q15M PRN PO DECREASED GLUCOSE; Start 10/10/16 at 15:30 Glucose (Glutose) 22.5 gm Q15M PRN PO DECREASED GLUCOSE; Start 10/10/16 at 15: 30 Dextrose (D50w Syringe) 25 ml Q15M PRN IV DECREASED GLUCOSE; Start 10/10/16 at 15:30 Dextrose (D50w Syringe) 50 ml Q15M PRN IV DECREASED GLUCOSE; Start 10/10/16 at 15:30 Glucagon (Glucagen) 1 mg Q15M PRN IM DECREASED GLUCOSE; Start 10/10/16 at 15:30 Glucose (Glutose) 15 gm Q15M PRN BUCCAL DECREASED GLUCOSE; Start 10/10/16 at 15 :30 Diphenoxylate HCl/ Atropine (Lomotil Liquid Cup) 10 ml Q8H PRN NGT LOOSE STOOLS ; Start 10/10/16 at 18:00 Diagnostic Test (Pha) (Accu-Chek) 1 ea Q1H XX Last administered on 10/13/16 08: 41; Admin Dose 1 EA; Start 10/10/16 at 22:00 Dextrose (D50w Syringe) 25 ml Q15M PRN IV Till BS 80 mg/dL or above x2; Start 10/10/16 at 21:30 Dextrose (D50w Syringe) 50 ml Q15M PRN IV Till BS 80 mg/dL or above x2; Start 10/10/16 at 21:30 ELTON FELIX October 13, 2016 09:48
--- NOTE | 2016-10-13 11:47 | PN ---
Date/Time of Note Date/Time of Note DATE: 10/13/16 TIME: 11:40 Assessment/Plan VTE Prophylaxis VTE Prophylaxis Intervention: SCD's Lines/Catheters IV Catheter Type (from [email or web address] Peripheral IV Urinary Cath still in place: No Assessment/Plan Chief Complaint/Hosp Course ASSESSMENT AND PLAN: - Acute respiratory failure, requiring oral intubation and ventilatory support secondary to pulmonary edema. Dr. Nunez is following in pulmonology consultation. Continue ventilator support. Weaning per pulm. Possible tracheostomy when family agrees. - Septic shock, resolving. - VRE bacteremia, continue Zyvox, continue antibiotics per ID. - End-stage renal disease, hemodialysis dependent. Dr. Hubbard is following the patient in nephrology consultation. Continue the hemodialysis per nephrology. - Diabetes mellitus type [address] Garay is following endocrinology consultation. Continue patient on insulin drip. - Peripheral arterial disease, status post vascular intervention. Continue heparin. - Anemia of chronic disease. Continue Epogen. - Coronary artery disease. Dr. Stephen is following in cardiology consultation. - Possible healthcare acquired pneumonia. Continue antibiotics per ID. Dr. Allison is following in ID consultation. - Possible sepsis secondary to pneumonia, resolving. - Transaminitis most likely to shock liver, Dr. Britt is following in gastroenterology consultation Continue heparin for deep venous thrombosis prophylaxis and Pepcid for peptic ulcer disease prophylaxis. Further recommendations based on clinical course. Plan of care discussed with Dr. Rosales. Problems: Subjective 24 Hr Interval Summary Free Text/Dictation Patient's continues to be orally intubated, on ventilatory support, sedated on propofol drip, on insulin drip, patient's failed CPAP today. Exam/Review of Systems Vital Signs Vitals Vital Signs Date Time Temp Pulse Resp B/P Pulse Ox O2 Delivery O2 Flow Rate FiO2 10/13/16 10:30 80 18 104/73 100 10/13/16 10:10 30 10/13/16 07:00 Mechanical Ventilator 10/13/16 04:00 98.2 Intake and Output 10/12/16 10/12/16 10/13/16 15:00 23:00 07:00 Intake Total 974.94 ml 1377.84 ml 654.55 ml Output Total 300 ml 3500 ml 200 ml Balance 674.94 ml -2122.16 ml 454.55 ml Exam GENERAL: Well-developed, well-nourished gentleman currently orally intubated on vent support, sedated HEENT: Head is atraumatic, normocephalic. Patient has a right eye prosthesis. Left eye pupil is equal, round, sluggishly reactive to light and accommodation. NECK: Supple, no cervical lymphadenopathy, no thyromegaly. CHEST: Lung sounds diminished at the bases. Scattered rhonchi bilaterally. Patient has a left chest Port-A-Cath. CARDIOVASCULAR: Normal S1, S2. No murmurs, gallops, clicks, rubs noted. ABDOMEN: Round, soft, nondistended, nontender. Bowel sounds present. EXTREMITIES: There is mild edema. There is no clubbing, cyanosis. Left upper extremity with AV graft. SKIN: No rash, petechiae noted. NEUROLOGIC: Sedated Results Result Diagram: 10/13/16 0500 10/13/16 0500 Results 24 hrs Laboratory Tests Test 10/12/16 12:30 10/12/16 14:05 10/12/16 16:05 10/12/16 18:10 Bedside Glucose 95 118 125 143 Test 10/12/16 20:34 10/12/16 21:46 10/12/16 22:31 10/12/16 23:02 Bedside Glucose 119 159 143 128 Test 10/13/16 00:04 10/13/16 01:01 10/13/16 02:06 10/13/16 03:14 Bedside Glucose 110 103 138 143 Test 10/13/16 04:29 10/13/16 05:00 10/13/16 05:27 10/13/16 06:20 Bedside Glucose 124 116 126 White Blood Count 4.1 L Red Blood Count 3.58 L Hemoglobin 10.5 L Hematocrit 32.9 L Mean Corpuscular Volume 91.9 Mean Corpuscular Hemoglobin 29.3 Mean Corpuscular Hemoglobin Concent 31.9 L Red Cell Distribution Width 17.5 H Platelet Count 226 Mean Platelet Volume 12.3 H Neutrophils % 55.3 Lymphocytes % 21.3 Monocytes % 14.5 H Eosinophils % 6.9 Basophils % 1.5 Nucleated Red Blood Cells % 0.0 Neutrophils # 2.3 Lymphocytes # 0.9 Monocytes # 0.6 Eosinophils # 0.3 Basophils # 0.1 Nucleated Red Blood Cells # 0.0 Sodium Level 133 L Potassium Level 3.9 Chloride Level 97 Carbon Dioxide Level 26 Anion Gap 14 Blood Urea Nitrogen 48 H Creatinine 6.21 H Glucose Level 118 Calcium Level 8.6 Phosphorus Level 7.2 H Total Bilirubin 0.0 L Direct Bilirubin 0.00 Indirect Bilirubin 0.0 Aspartate Amino Transf (AST/SGOT) 84 H Alanine Aminotransferase (ALT/SGPT) 215 H Alkaline Phosphatase 297 H Total Protein 6.3 Albumin 3.1 L Globulin 3.20 Albumin/Globulin Ratio 0.96 Test 10/13/16 07:01 10/13/16 08:38 10/13/16 09:52 Bedside Glucose 113 127 108 Medications Medications Current Medications Ondansetron HCl (Zofran Inj) 4 mg Q6H PRN IV NAUSEA AND/OR VOMITING; Start at 06:00 Acetaminophen (Tylenol Liquid) 650 mg Q6H PRN PO PAIN LEVEL 1-3 OR FEVER Last administered on 09/30/16 08:32; Admin Dose 650 MG; Start 09/28/16 at 06:00 Hydromorphone HCl (Dilaudid) 0.5 mg Q4H PRN IV PAIN LEVEL 7-10 Last administered on 10/11/16 09:02; Admin Dose 0.5 MG; Start 09/28/16 at 06:00 Heparin Sodium (Porcine) (Heparin (5000 Units/0.5 ml)) 5,000 unit Q12 SC Last administered on 10/13/16 08:44; Admin Dose 5,000 UNIT; Start 09/28/16 at 09:00 Famotidine 20 mg 20 mg DAILY IV Last administered on 10/13/16 08:42; Admin Dose 20 MG; Start 09/28/16 at 09:00 Propofol 100 ml @ 2.31 mls/hr Q12H IV Last administered on 10/13/16 10:29; Admin Dose 18.48 MLS/HR; Start 09/28/16 at 11:30 Midazolam HCl 50 ml @ 1 mls/hr TITRATE IV Last administered on 10/06/16 22:25 ; Admin Dose 1 MLS/HR; Start 09/28/16 at 11:30 Fentanyl (Sublimaze) 100 ml @ 2.5 mls/hr TITRATE IV Last administered on 16:48; Admin Dose 2.5 MLS/HR; Start 09/29/16 at 09:00 Acetaminophen (Tylenol Liquid) 650 mg Q4H PRN NGT PAIN AND OR ELEVATED TEMP Last administered on 10/06/16 23:16; Admin Dose 650 MG; Start 09/30/16 at 08:30 Prasugrel (Effient) 10 mg DAILY PO Last administered on 10/13/16 08:42; Admin Dose 10 MG; Start 10/02/16 at 09:00 Carvedilol (Coreg) 12.5 mg BID NGT Last administered on 10/12/16 20:52; Admin Dose 12.5 MG; Start 10/02/16 at 21:00 Miscellaneous Information This patient osorio... PRN PRN XX WOUND CARE; Start 10/06 at 09:30 Norepinephrine 16 mg/Dextrose 500 ml @ 1.87 mls/hr TITRATE IV Last administered on 10/07/16 21:07; Admin Dose 37.5 MLS/HR; Start 10/06/16 at 12:00 Phenylephrine HCl/ Dextrose (Brice-Syneph/D5W) 500 ml @ 75 mls/hr TITRATE IV ; Start 10/06/16 at 12:00 Calcium Carbonate 1250 mg 1,250 mg BID NGT Last administered on 10/13/16 08:42 ; Admin Dose 1,250 MG; Start 10/07/16 at 10:30 Linezolid (Zyvox 600mg/D5W (Pmx)) 300 ml @ 300 mls/hr Q12 IVPB Last administered on 10/13/16 08:42; Admin Dose 300 MLS/HR; Start 10/07/16 at 21:00 Aspirin (Aspirin) 81 mg DAILY NGT Last administered on 10/13/16 08:41; Admin Dose 81 MG; Start 10/08/16 at 09:00 Calcitriol (Calcitriol) 1 mcg DAILY IV Last administered on 10/13/16 08:41; Admin Dose 1 MCG; Start 10/08/16 at 14:00 Miscellaneous Information 1 ea NOTE XX ; Start 10/10/16 at 15:30 Glucose (Glutose) 15 gm Q15M PRN PO DECREASED GLUCOSE; Start 10/10/16 at 15:30 Glucose (Glutose) 22.5 gm Q15M PRN PO DECREASED GLUCOSE; Start 10/10/16 at 15: 30 Dextrose (D50w Syringe) 25 ml Q15M PRN IV DECREASED GLUCOSE; Start 10/10/16 at 15:30 Dextrose (D50w Syringe) 50 ml Q15M PRN IV DECREASED GLUCOSE; Start 10/10/16 at 15:30 Glucagon (Glucagen) 1 mg Q15M PRN IM DECREASED GLUCOSE; Start 10/10/16 at 15:30 Glucose (Glutose) 15 gm Q15M PRN BUCCAL DECREASED GLUCOSE; Start 10/10/16 at 15 :30 Diphenoxylate HCl/ Atropine (Lomotil Liquid Cup) 10 ml Q8H PRN NGT LOOSE STOOLS ; Start 10/10/16 at 18:00 Diagnostic Test (Pha) (Accu-Chek) 1 ea Q1H XX Last administered on 10/13/16t 10: 29; Admin Dose 1 EA; Start 10/10/16 at 22:00 Dextrose (D50w Syringe) 25 ml Q15M PRN IV Till BS 80 mg/dL or above x2; Start 10/10/16 at 21:30 Dextrose (D50w Syringe) 50 ml Q15M PRN IV Till BS 80 mg/dL or above x2; Start 10/10/16 at 21:30 ANGELINA CASTREJON October 13, 2016 11:47
--- NOTE | 2016-10-13 12:57 | CONS ---
Date/Time of Note Date/Time of Note DATE: 10/13/16 TIME: 12:50 Assessment/Plan Assessment/Plan Chief Complaint/Hosp Course 1. ESRD , he is on maintenance hemodialysis . He has been dialyzed daily the last 2 days . I will order hemodialysis for tomorrow . 2. Type I DM 3. h/o flash pulmonary edema 4. HTN 5. CAD 6. respiratory failure on vent 7. on tube feeding .. 8. ALOC , he is sedated on Vent . 10. He is growing VRE from 1of 2 blood cultures , on antibiotics 11. hypocalcemia , this is correcting , he is on calcium carbonate and IV calcitriol . Problems: Consultation Date/Type/Reason Admit Date/Time Sep 28, 2016 at 05:39 Initial Consult Date 09/28/16 Type of Consultation: renal Referring Provider: WILMER RODRIGUEZ MD 24 HR Interval Summary Free Text/Dictation He is in the ICU , sedated , intubated and on the ventilator . Subjective hx not possible: pt non-verbal Exam/Review of Systems Vital Signs Vitals Vital Signs Date Time Temp Pulse Resp B/P Pulse Ox O2 Delivery O2 Flow Rate FiO2 10/13/16 11:23 85 18 100 30 10/13/16 10:30 104/73 10/13/16 07:00 Mechanical Ventilator 10/13/16 04:00 98.2 Intake and Output 10/12/16 10/12/16 10/13/16 15:00 23:00 07:00 Intake Total 974.94 ml 1377.84 ml 654.55 ml Output Total 300 ml 3500 ml 200 ml Balance 674.94 ml -2122.16 ml 454.55 ml Exam Constitutional: non-verbal Respiratory: clear to auscultation Cardiovascular: regular rate and rhythm Musculoskeletal: nl extremities to inspection Results Result Diagram: 10/13/16 0500 10/13/16 0500 Results 24 hrs Laboratory Tests Test 10/12/16 14:05 10/12/16 16:05 10/12/16 18:10 10/12/16 20:34 Bedside Glucose 118 125 143 119 Test 10/12/16 21:46 10/12/16 22:31 10/12/16 23:02 10/13/16 00:04 Bedside Glucose 159 143 128 110 Test 10/13/16 01:01 10/13/16 02:06 10/13/16 03:14 10/13/16 04:29 Bedside Glucose 103 138 143 124 Test 10/13/16 05:00 10/13/16 05:27 10/13/16 06:20 10/13/16 07:01 White Blood Count 4.1 L Red Blood Count 3.58 L Hemoglobin 10.5 L Hematocrit 32.9 L Mean Corpuscular Volume 91.9 Mean Corpuscular Hemoglobin 29.3 Mean Corpuscular Hemoglobin Concent 31.9 L Red Cell Distribution Width 17.5 H Platelet Count 226 Mean Platelet Volume 12.3 H Neutrophils % 55.3 Lymphocytes % 21.3 Monocytes % 14.5 H Eosinophils % 6.9 Basophils % 1.5 Nucleated Red Blood Cells % 0.0 Neutrophils # 2.3 Lymphocytes # 0.9 Monocytes # 0.6 Eosinophils # 0.3 Basophils # 0.1 Nucleated Red Blood Cells # 0.0 Sodium Level 133 L Potassium Level 3.9 Chloride Level 97 Carbon Dioxide Level 26 Anion Gap 14 Blood Urea Nitrogen 48 H Creatinine 6.21 H Glucose Level 118 Calcium Level 8.6 Phosphorus Level 7.2 H Total Bilirubin 0.0 L Direct Bilirubin 0.00 Indirect Bilirubin 0.0 Aspartate Amino Transf (AST/SGOT) 84 H Alanine Aminotransferase (ALT/SGPT) 215 H Alkaline Phosphatase 297 H Total Protein 6.3 Albumin 3.1 L Globulin 3.20 Albumin/Globulin Ratio 0.96 Bedside Glucose 116 126 113 Test 10/13/16 08:38 10/13/16 09:52 10/13/16 11:36 10/13/16 12:24 Bedside Glucose 127 108 78 126 Medications Medications Current Medications Ondansetron HCl (Zofran Inj) 4 mg Q6H PRN IV NAUSEA AND/OR VOMITING; Start at 06:00 Acetaminophen (Tylenol Liquid) 650 mg Q6H PRN PO PAIN LEVEL 1-3 OR FEVER Last administered on 09/30/16 08:32; Admin Dose 650 MG; Start 09/28/16 at 06:00 Hydromorphone HCl (Dilaudid) 0.5 mg Q4H PRN IV PAIN LEVEL 7-10 Last administered on 10/11/16 09:02; Admin Dose 0.5 MG; Start 09/28/16 at 06:00 Heparin Sodium (Porcine) (Heparin (5000 Units/0.5 ml)) 5,000 unit Q12 SC Last administered on 10/13/16 08:44; Admin Dose 5,000 UNIT; Start 09/28/16 at 09:00 Famotidine 20 mg 20 mg DAILY IV Last administered on 10/13/16 08:42; Admin Dose 20 MG; Start 09/28/16 at 09:00 Propofol 100 ml @ 2.31 mls/hr Q12H IV Last administered on 10/13/16 10:29; Admin Dose 18.48 MLS/HR; Start 09/28/16 at 11:30 Midazolam HCl 50 ml @ 1 mls/hr TITRATE IV Last administered on 10/06/16 22:25 ; Admin Dose 1 MLS/HR; Start 09/28/16 at 11:30 Fentanyl (Sublimaze) 100 ml @ 2.5 mls/hr TITRATE IV Last administered on 16:48; Admin Dose 2.5 MLS/HR; Start 09/29/16 at 09:00 Acetaminophen (Tylenol Liquid) 650 mg Q4H PRN NGT PAIN AND OR ELEVATED TEMP Last administered on 10/06/16 23:16; Admin Dose 650 MG; Start 09/30/16 at 08:30 Prasugrel (Effient) 10 mg DAILY PO Last administered on 10/13/16 08:42; Admin Dose 10 MG; Start 10/02/16 at 09:00 Carvedilol (Coreg) 12.5 mg BID NGT Last administered on 10/12/16 20:52; Admin Dose 12.5 MG; Start 10/02/16 at 21:00 Miscellaneous Information This patient osorio... PRN PRN XX WOUND CARE; Start 10/06 at 09:30 Norepinephrine 16 mg/Dextrose 500 ml @ 1.87 mls/hr TITRATE IV Last administered on 10/07/16 21:07; Admin Dose 37.5 MLS/HR; Start 10/06/16 at 12:00 Phenylephrine HCl/ Dextrose (Brice-Syneph/D5W) 500 ml @ 75 mls/hr TITRATE IV ; Start 10/06/16 at 12:00 Calcium Carbonate 1250 mg 1,250 mg BID NGT Last administered on 10/13/16 08:42 ; Admin Dose 1,250 MG; Start 10/07/16 at 10:30 Linezolid (Zyvox 600mg/D5W (Pmx)) 300 ml @ 300 mls/hr Q12 IVPB Last administered on 10/13/16 08:42; Admin Dose 300 MLS/HR; Start 10/07/16 at 21:00 Aspirin (Aspirin) 81 mg DAILY NGT Last administered on 10/13/16 08:41; Admin Dose 81 MG; Start 10/08/16 at 09:00 Calcitriol (Calcitriol) 1 mcg DAILY IV Last administered on 10/13/16 08:41; Admin Dose 1 MCG; Start 10/08/16 at 14:00 Miscellaneous Information 1 ea NOTE XX ; Start 10/10/16 at 15:30 Glucose (Glutose) 15 gm Q15M PRN PO DECREASED GLUCOSE; Start 10/10/16 at 15:30 Glucose (Glutose) 22.5 gm Q15M PRN PO DECREASED GLUCOSE; Start 10/10/16 at 15: 30 Dextrose (D50w Syringe) 25 ml Q15M PRN IV DECREASED GLUCOSE; Start 10/10/16 at 15:30 Dextrose (D50w Syringe) 50 ml Q15M PRN IV DECREASED GLUCOSE; Start 10/10/16 at 15:30 Glucagon (Glucagen) 1 mg Q15M PRN IM DECREASED GLUCOSE; Start 10/10/16 at 15:30 Glucose (Glutose) 15 gm Q15M PRN BUCCAL DECREASED GLUCOSE; Start 10/10/16 at 15 :30 Diphenoxylate HCl/ Atropine (Lomotil Liquid Cup) 10 ml Q8H PRN NGT LOOSE STOOLS ; Start 10/10/16 at 18:00 Diagnostic Test (Pha) (Accu-Chek) 1 ea Q1H XX Last administered on 10/13/16 12: 30; Admin Dose 1 EA; Start 10/10/16 at 22:00 Dextrose (D50w Syringe) 25 ml Q15M PRN IV Till BS 80 mg/dL or above x2; Start 10/10/16 at 21:30 Dextrose (D50w Syringe) 50 ml Q15M PRN IV Till BS 80 mg/dL or above x2; Start 10/10/16 at 21:30 DONY HOWARD MD October 13, 2016 12:57
--- NOTE | 2016-10-13 13:36 | PN ---
DATE: 10/13/2016 INFECTIOUS DISEASE PROGRESS NOTE SUBJECTIVE: No events overnight. No fevers. The patient is intubated and sedated. VITAL SIGNS: Temperature 98.2, pulse 86, respirations 18, blood pressure 100/64, saturation 100 on 30 FIO2. WBC 4.1, H and H 10.5 and 32.9, platelets 226, neutrophils 55.3. DIAGNOSTICS: Chest x-ray this morning revealed unchanged mild atelectasis at the lung bases. INDWELLINGS: Endotracheal tube, NG tube, left-sided Port-A-Cath, left upper extremity AV shunt, rec samuel tube. ANTIMICROBIALS: The patient is on Zyvox, status post Imipenem. MICROBIOLOGY: Blood culture on 10/04/2016 grew VRE. PHYSICAL EXAMINATION: GENERAL: This is a chronically ill-appearing, middle-aged man who is lying comfortably in bed. HEENT: Head atraumatic, normocephalic. Sclerae anicteric. Buccal mucosa dry. NECK: Supple, trachea midline. CHEST: Rise symmetrical. Breath sounds diminished to bases. HEART: S1, S2. ABDOMEN: Soft. Bowel tones hypoactive. EXTREMITIES: With trace. ASSESSMENT: 1. Acute respiratory failure secondary to fluid overload and possible aspiration. 2. VRE bacteremia status post femoral triple lumen catheter discontinued with catheter tip culture being negative. 3. Diabetes. 4. End-stage renal disease. 5. History of Clostridium difficile colitis, recent stool for C difficile came back negative. PLAN: The patient remains stable. We are going to repeat blood cultures from Port-A-Cath today. Comp lete treatment with Zyvox for 14 days for bacteremia. PLAN: Continue vent management as per pulmonary. Dictated By: BIJAN LONGO [employer]URING [employer] ENGINEER for [employer] Conf#: [id number] DID#: [id number]
--- NOTE | 2016-10-13 20:01 | CONS ---
DATE OF ADMISSION: 09/28/2016 DATE OF CONSULTATION: REASON FOR CONSULTATION: Evaluation for tracheostomy. HISTORY OF PRESENT ILLNESS: This is a 51-year-old male with a history of renal failure, diabetes, h ypertension, coronary artery disease, presented to the emergency room because of knee pain, had resp iratory distress, intubated, unable to come off the ventilator secondary to multiple other medical p roblems, including VRE and pneumonia. PAST MEDICAL HISTORY: As above. ALLERGIES: NONE. MEDICATIONS: List reviewed, which includes: 1. Atrovent 2. Ventolin. 3. Lomotil. 4. Coreg. 5. Famotidine/Pepcid. REVIEW OF SYSTEMS: Unable to obtain. The patient is intubated. PHYSICAL EXAMINATION: VITAL SIGNS: Blood pressure is 104/73, pulse is 80, respirations 18. CARDIOVASCULAR: Normal S1, S2. LUNGS: Clear. ABDOMEN: Soft. EXTREMITIES: Warm. LABORATORY VALUES: Hemoglobin 10.5, white count 4.1, platelet count 226. Normal coagulation factor s. IMPRESSION: Respiratory failure. RECOMMENDATIONS: We will proceed with the placement of a tracheostomy. Discussed with the nursing staff. All questions answered. Dictated By: IRASEMA QUINN MD FM/NTS Conf#: [id number] DID#: [id number] CC: SHANTE SALDAÑA MD;*EndCC*
--- NOTE | 2016-10-13 22:10 | PN ---
DATE: SUBJECTIVE: At this time, patient in the intensive care unit. He continues to be intubated. He is off of vasopressors. Unresponsive. VITAL SIGNS: Pulse is 103, blood pressure is 110/____. CLINICAL IMPRESSION: It appears that the patient is sedated. The patient is not going to be weaned off. He will remain intubated and a tracheostomy has been planned. Percutaneous endoscopic gastrostomy also been planned. This will be done in a day or two. His live r functions are slowly improving. Dictated By: RENAE VILCHIS MD NC/NTS Conf#: [id number] DID#: [id number] CC: RENAE VILCHIS MD; SHANTE SALDAÑA MD;*End*
[2016-10-14] VITALS (55 sets, daily range): BP systolic 93–171; BP diastolic 56–96; PULSE 71–107; RESP 12–29
[2016-10-14] MEDS: ACCU-CHEK XX SCH ×24 (00:01→23:24)
[2016-10-14] MEDS: PROPOFOL 100 ML IV SCH ×2 (00:01→04:49)
[2016-10-14] MEDS: INSULIN HUMAN REGULAR 100 UNIT in SOD CHLORIDE 0.9% 99 ML IV SCH (01:06)
[2016-10-14] MEDS: ALBUTEROL 18 GM INHALER INH SCH ×3 (01:37→14:00)
[2016-10-14 04:50] LABS: ADD SCAN DIFF NO
[2016-10-14 04:55] LABS: BASOPHILS % 1.1 % (0.0-2.0); EOSINOPHILS # 0.3 10^3/ul (0.0-0.5); EOSINOPHILS % 8.7 % (0.0-7.0); HEMATOCRIT 32.1 % (42.0-52.0); HEMOGLOBIN 10.1 g/dl (14.0-18.0); LYMPHOCYTES # 0.8 10^3/ul (0.8-2.9); LYMPHOCYTES % 21.3 % (15.0-51.0); MEAN CORPUSCULAR HEMOGLOBIN 28.6 pg (29.0-33.0); MEAN CORPUSCULAR HGB CONC 31.5 g/dl (32.0-37.0); MEAN CORPUSCULAR VOLUME 90.9 fl (82.0-101.0); MONOCYTE # 0.5 10^3/ul (0.3-0.9); MONOCYTES % 12.6 % (0.0-11.0); NEUTROPHILS % 55.8 % (39.0-77.0); PLATELET COUNT 220 10^3/UL (140-415); RED BLOOD COUNT 3.53 10^6/ul (4.70-6.10); RED CELL DISTRIBUTION WIDTH 17.6 % (11.5-14.5); WHITE BLOOD COUNT 3.7 10^3/ul (4.8-10.8)
[2016-10-14 05:17] LABS: POTASSIUM 4.1 mmol/L (3.5-5.1)
[2016-10-14 05:20] LABS: CREATININE 7.76 mg/dl (0.61-1.24)
[2016-10-14 05:21] LABS: CALCIUM 8.6 mg/dl (8.4-10.2)
[2016-10-14] MEDS: IPRATROPIUM (HFA) 12.9 GM INHALER INH SCH ×2 (07:33→14:00)
[2016-10-14] MEDS: CA CARBONATE (250 MG/ML) 5ML CUP NGT SCH ×2 (09:39→20:07)
[2016-10-14] MEDS: FAMOTIDINE 20 MG INJ IV SCH (09:39)
[2016-10-14] MEDS: PRASUGREL HYDROCHLORIDE 10 MG TABLET PO SCH (09:39)
--- NOTE | 2016-10-14 09:39 | CONS ---
Date/Time of Note Date/Time of Note DATE: 10/14/16 TIME: 09:36 Assessment/Plan Assessment/Plan Additional Assessment/Plan Ventilator settings; AC of 18, tidal volume 600, PEEP of 5, 30% FiO2. Patient is on propofol drip at 10 mics per kilo per minute, insulin drip 0.5 U/ h. Assessment recommendations; 1. Patient admitted for respiratory failure due to pulmonary edema and pneumonia with marked radiological improvement. 2. End-stage renal disease, on hemodialysis. 3. So far patient has been unable to be weaned off ventilator due to copious secretions precluding extubation. However there has been interval improvement over the last 24 hours. 4. Patient is legally blind. The patient has been evaluated for tracheostomy and G-tube placement however patient would warrant another weaning trial from ventilator, for that purpose I am going to stop propofol and switch the patient to CPAP mode and see how he does today. Failing that, patient will be scheduled for tracheostomy. Consultation Date/Type/Reason Admit Date/Time Sep 28, 2016 at 05:39 Initial Consult Date 09/28/16 Type of Consultation: Pulmonary/critical care Referring Provider: WILMER RODRIGUEZ MD 24 HR Interval Summary Free Text/Dictation Patient condition remains critical but patient has remained hemodynamically stable. General exam; middle-aged male, orally intubated, awake. Currently in no distress. Exam/Review of Systems Vital Signs Vitals Vital Signs Date Time Temp Pulse Resp B/P Pulse Ox O2 Delivery O2 Flow Rate FiO2 10/14/16 07:34 72 18 100 30 10/14/16 06:30 102/75 10/14/16 06:00 Mechanical Ventilator 10/14/16 04:00 98.5 Intake and Output 10/13/16 10/13/16 10/14/16 15:00 23:00 07:00 Intake Total 1071.34 ml 940.88 ml 602.98 ml Output Total 50 ml 100 ml Balance 1021.34 ml 940.88 ml 502.98 ml Exam HEENT exam is; supple neck, no JVD. No lymphadenopathy. Midline trachea. No thyromegaly. Orally intubated. Pupils are small bilaterally. Patient with multiple carious teeth. Chest examination; clear to auscultation. No added sound. S1-S2 audible, no murmurs. Regular rhythm. Abdomen examination; soft, nondistended. No organomegaly. Bowel sounds audible. Extremity examination; 2+ pitting edema in lower extremities bilaterally. She does have ecchymosis involving all 4 extremities. [employer] examination of Blaise patient awake alert does respond appropriately to questions by head nodding, moves all 4 extremities on command. Results Result Diagram: 10/14/16 0345 10/14/16 0345 Results 24 hrs Laboratory Tests Test 10/13/16 09:52 10/13/16 11:36 10/13/16 12:24 10/13/16 13:41 Bedside Glucose 108 78 126 175 Test 10/13/16 15:07 10/13/16 16:00 10/13/16 17:45 10/13/16 19:37 Bedside Glucose 181 205 101 84 Test 10/13/16 19:41 10/13/16 20:16 10/13/16 20:18 10/13/16 20:23 Bedside Glucose 85 52 L 67 L 57 L Test 10/13/16 20:45 10/13/16 21:03 10/13/16 22:08 10/13/16 23:00 Bedside Glucose 88 114 154 140 Test 10/13/16 23:55 10/14/16 01:01 10/14/16 03:10 10/14/16 03:45 Bedside Glucose 127 113 124 White Blood Count 3.7 L Red Blood Count 3.53 L Hemoglobin 10.1 L Hematocrit 32.1 L Mean Corpuscular Volume 90.9 Mean Corpuscular Hemoglobin 28.6 L Mean Corpuscular Hemoglobin Concent 31.5 L Red Cell Distribution Width 17.6 H Platelet Count 220 Mean Platelet Volume 12.0 H Neutrophils % 55.8 Lymphocytes % 21.3 Monocytes % 12.6 H Eosinophils % 8.7 H Basophils % 1.1 Nucleated Red Blood Cells % 0.0 Neutrophils # 2.0 Lymphocytes # 0.8 Monocytes # 0.5 Eosinophils # 0.3 Basophils # 0.0 Nucleated Red Blood Cells # 0.0 Sodium Level 133 L Potassium Level 4.1 Chloride Level 93 L Carbon Dioxide Level 24 Anion Gap 20 H Blood Urea Nitrogen 69 H Creatinine 7.76 H Glucose Level 119 Calcium Level 8.6 Test 10/14/16 05:08 10/14/16 06:54 10/14/16 08:16 Bedside Glucose 114 91 90 Medications Medications Current Medications Ondansetron HCl (Zofran Inj) 4 mg Q6H PRN IV NAUSEA AND/OR VOMITING; Start at 06:00 Acetaminophen (Tylenol Liquid) 650 mg Q6H PRN PO PAIN LEVEL 1-3 OR FEVER Last administered on 09/30/16 08:32; Admin Dose 650 MG; Start 09/28/16 at 06:00 Hydromorphone HCl (Dilaudid) 0.5 mg Q4H PRN IV PAIN LEVEL 7-10 Last administered on 10/11/16 09:02; Admin Dose 0.5 MG; Start 09/28/16 at 06:00 Heparin Sodium (Porcine) (Heparin (5000 Units/0.5 ml)) 5,000 unit Q12 SC Last administered on 10/13/16 08:44; Admin Dose 5,000 UNIT; Start 09/28/16 at 09:00 Famotidine 20 mg 20 mg DAILY IV Last administered on 10/13/16 08:42; Admin Dose 20 MG; Start 09/28/16 at 09:00 Propofol 100 ml @ 2.31 mls/hr Q12H IV Last administered on 10/14/16 04:49; Admin Dose 20.79 MLS/HR; Start 09/28/16 at 11:30 Midazolam HCl 50 ml @ 1 mls/hr TITRATE IV Last administered on 10/06/16 22:25 ; Admin Dose 1 MLS/HR; Start 09/28/16 at 11:30 Fentanyl (Sublimaze) 100 ml @ 2.5 mls/hr TITRATE IV Last administered on 16:48; Admin Dose 2.5 MLS/HR; Start 09/29/16 at 09:00 Acetaminophen (Tylenol Liquid) 650 mg Q4H PRN NGT PAIN AND OR ELEVATED TEMP Last administered on 10/06/16 23:16; Admin Dose 650 MG; Start 09/30/16 at 08:30 Prasugrel (Effient) 10 mg DAILY PO Last administered on 10/13/16 08:42; Admin Dose 10 MG; Start 10/02/16 at 09:00 Carvedilol (Coreg) 12.5 mg BID NGT Last administered on 10/13/16 20:39; Admin Dose 12.5 MG; Start 10/02/16 at 21:00 Miscellaneous Information This patient osorio... PRN PRN XX WOUND CARE; Start 10/06 at 09:30 Norepinephrine 16 mg/Dextrose 500 ml @ 1.87 mls/hr TITRATE IV Last administered on 10/07/16 21:07; Admin Dose 37.5 MLS/HR; Start 10/06/16 at 12:00 Phenylephrine HCl/ Dextrose (Brice-Syneph/D5W) 500 ml @ 75 mls/hr TITRATE IV ; Start 10/06/16 at 12:00 Calcium Carbonate 1250 mg 1,250 mg BID NGT Last administered on 10/13/16 20:38 ; Admin Dose 1,250 MG; Start 10/07/16 at 10:30 Linezolid (Zyvox 600mg/D5W (Pmx)) 300 ml @ 300 mls/hr Q12 IVPB Last administered on 10/13/16 20:38; Admin Dose 300 MLS/HR; Start 10/07/16 at 21:00 Aspirin (Aspirin) 81 mg DAILY NGT Last administered on 10/13/16 08:41; Admin Dose 81 MG; Start 10/08/16 at 09:00 Calcitriol (Calcitriol) 1 mcg DAILY IV Last administered on 10/13/16 08:41; Admin Dose 1 MCG; Start 10/08/16 at 14:00 Miscellaneous Information 1 ea NOTE XX ; Start 10/10/16 at 15:30 Glucose (Glutose) 15 gm Q15M PRN PO DECREASED GLUCOSE; Start 10/10/16 at 15:30 Glucose (Glutose) 22.5 gm Q15M PRN PO DECREASED GLUCOSE; Start 10/10/16 at 15: 30 Dextrose (D50w Syringe) 25 ml Q15M PRN IV DECREASED GLUCOSE; Start 10/10/16 at 15:30 Dextrose (D50w Syringe) 50 ml Q15M PRN IV DECREASED GLUCOSE; Start 10/10/16 at 15:30 Glucagon (Glucagen) 1 mg Q15M PRN IM DECREASED GLUCOSE; Start 10/10/16 at 15:30 Glucose (Glutose) 15 gm Q15M PRN BUCCAL DECREASED GLUCOSE; Start 10/10/16 at 15 :30 Diphenoxylate HCl/ Atropine (Lomotil Liquid Cup) 10 ml Q8H PRN NGT LOOSE STOOLS ; Start 10/10/16 at 18:00 Diagnostic Test (Pha) (Accu-Chek) 1 ea Q1H XX Last administered on 10/14/16 08: 16; Admin Dose 1 EA; Start 10/10/16 at 22:00 Dextrose (D50w Syringe) 25 ml Q15M PRN IV Till BS 80 mg/dL or above x2 Last administered on 10/13/16 20:29; Admin Dose 25 ML; Start 10/10/16 at 21:30 Dextrose (D50w Syringe) 50 ml Q15M PRN IV Till BS 80 mg/dL or above x2; Start 10/10/16 at 21:30 ELTON FELIX October 14, 2016 09:39
[2016-10-14] MEDS: LINEZOLID 600 MG/D5W (PMX) 300 ML IVPB SCH ×2 (09:40→20:07)
[2016-10-14] MEDS: CALCITRIOL 1 MCG INJ IV SCH (09:40)
[2016-10-14 11:16] LABS: AADO2 Arterial 57.9 mmHg (7.0-24.0); Arterial Base Excess -3.3 mmol/L (-3.0-3); Arterial COHb 0.1 % (0.0-3.0); Arterial Fraction of Oxyhgb 97.5 % (93.0-99.0); Arterial HCO3 19.9 mmol/L (22.0-26.0); Arterial MetHb 0.4 % (0.0-1.5); Arterial Total Hemglobin 11.6 g/dl (12.0-18.0); Blood Gas PS 10; MODE VENT - CPAP
--- NOTE | 2016-10-14 11:50 | PN ---
DATE: 10/14/2016 INFECTIOUS DISEASE PROGRESS NOTE SUBJECTIVE: Patient is more awake. He is currently on CPAP. He is in no distress, no fevers. VITAL SIGNS: Temperature 98.5, pulse 75, respirations 17, blood pressure 102/75, saturation 100 on 30%. LABORATORY DATA: WBC 3.7, H and H 10.1 and 32.1, platelets 220. No shift. MICROBIOLOGY: All cultures have been negative. INDWELLINGS: Endotracheal tube, NG tube, left upper extremity AV fistula, left chest Port-A-Cath. ANTIMICROBIALS: The patient is on Zyvox. PHYSICAL EXAMINATION: GENERAL: Well-developed, middle-aged white male who is in no distress. HEENT: Head atraumatic, normocephalic. Sclerae anicteric. Buccal mucosa dry. NECK: Supple. Trachea midline. CHEST: Rise symmetrical. Breath sounds diminished to bases. HEART: S1, S2. ABDOMEN: Soft, bowel sounds present. EXTREMITIES: With trace edema. SKIN: Positive for anasarca, multiple tattoos present. ASSESSMENT: 1. Acute respiratory failure secondary to fluid overload and possible aspiration event. 2. Vancomycin-resistant Enterococcus bacteremia, status post ____ triple lumen discontinued. 3. End-stage renal disease, hemodialysis dependent. 4. Diabetes. 5. History of Clostridium difficile colitis, stool for Clostridium difficile recently came back neg ative. PLAN: The patient remains stable. Blood cultures were ordered yesterday from Port-A-Cath, and the results are pending. He tolerates weaning trials. He is being followed by multiple consultants. Wojciech arenas present care. Dictated By: BIJAN LONGO [employer] lisa BURR/SERGO Conf#: [id number] DID#: [id number]
--- NOTE | 2016-10-14 11:55 | PN ---
Date/Time of Note Date/Time of Note DATE: 10/14/16 TIME: 11:54 Assessment/Plan VTE Prophylaxis VTE Prophylaxis Intervention: SCD's Lines/Catheters IV [facility] portacath Urinary Cath still in place: No Assessment/Plan Chief Complaint/Hosp Course ASSESSMENT AND PLAN: - Acute respiratory failure, requiring oral intubation and ventilatory support secondary to pulmonary edema. Dr. Nunez is following in pulmonology consultation. Continue ventilator support. Weaning per pulm. - Septic shock, resolving. - VRE bacteremia, continue Zyvox, continue antibiotics per ID. - End-stage renal disease, hemodialysis dependent. Dr. Hubbard is following the patient in nephrology consultation. Continue the hemodialysis per nephrology. - Diabetes mellitus type [address] Garay is following endocrinology consultation. Continue patient on insulin drip. - Peripheral arterial disease, status post vascular intervention. Continue heparin. - Anemia of chronic disease. Continue Epogen. - Coronary artery disease. Dr. Stephen is following in cardiology consultation. - Possible healthcare acquired pneumonia. Continue antibiotics per ID. Dr. Allison is following in ID consultation. - Possible sepsis secondary to pneumonia, resolving. - Transaminitis most likely to shock liver, Dr. Britt is following in gastroenterology consultation Continue heparin for deep venous thrombosis prophylaxis and Pepcid for peptic ulcer disease prophylaxis. Further recommendations based on clinical course. Plan of care discussed with Dr. Rosales. Problems: Subjective 24 Hr Interval Summary Free Text/Dictation Patient's continues to be orally intubated on vent support, continued on insulin drip. Sedation is on hold patient is more awake. Exam/Review of Systems Vital Signs Vitals Vital Signs Date Time Temp Pulse Resp B/P Pulse Ox O2 Delivery O2 Flow Rate FiO2 10/14/16 11:09 99 18 100 30 10/14/16 10:30 141/79 10/14/16 10:00 Mechanical Ventilator 10/14/16 08:30 97.6 Intake and Output 10/13/16 10/13/16 10/14/16 15:00 23:00 07:00 Intake Total 1071.34 ml 940.88 ml 602.98 ml Output Total 50 ml 100 ml Balance 1021.34 ml 940.88 ml 502.98 ml Exam GENERAL: Well-developed, well-nourished gentleman currently orally intubated on vent support, sedated HEENT: Head is atraumatic, normocephalic. Patient has a right eye prosthesis. Left eye pupil is equal, round, sluggishly reactive to light and accommodation. NECK: Supple, no cervical lymphadenopathy, no thyromegaly. CHEST: Lung sounds diminished at the bases. Scattered rhonchi bilaterally. Patient has a left chest Port-A-Cath. CARDIOVASCULAR: Normal S1, S2. No murmurs, gallops, clicks, rubs noted. ABDOMEN: Round, soft, nondistended, nontender. Bowel sounds present. EXTREMITIES: There is mild edema. There is no clubbing, cyanosis. Left upper extremity with AV graft. SKIN: No rash, petechiae noted. NEUROLOGIC: Sedated Results Result Diagram: 10/14/16 0345 10/14/16 0345 Results 24 hrs Laboratory Tests Test 10/13/16 12:24 10/13/16 13:41 10/13/16 15:07 10/13/16 16:00 Bedside Glucose 126 175 181 205 Test 10/13/16 17:45 10/13/16 19:37 10/13/16 19:41 10/13/16 20:16 Bedside Glucose 101 84 85 52 L Test 10/13/16 20:18 10/13/16 20:23 10/13/16 20:45 10/13/16 21:03 Bedside Glucose 67 L 57 L 88 114 Test 10/13/16 22:08 10/13/16 23:00 10/13/16 23:55 10/14/16 01:01 Bedside Glucose 154 140 127 113 Test 10/14/16 03:10 10/14/16 03:45 10/14/16 05:08 10/14/16 06:54 Bedside Glucose 124 114 91 White Blood Count 3.7 L Red Blood Count 3.53 L Hemoglobin 10.1 L Hematocrit 32.1 L Mean Corpuscular Volume 90.9 Mean Corpuscular Hemoglobin 28.6 L Mean Corpuscular Hemoglobin Concent 31.5 L Red Cell Distribution Width 17.6 H Platelet Count 220 Mean Platelet Volume 12.0 H Neutrophils % 55.8 Lymphocytes % 21.3 Monocytes % 12.6 H Eosinophils % 8.7 H Basophils % 1.1 Nucleated Red Blood Cells % 0.0 Neutrophils # 2.0 Lymphocytes # 0.8 Monocytes # 0.5 Eosinophils # 0.3 Basophils # 0.0 Nucleated Red Blood Cells # 0.0 Sodium Level 133 L Potassium Level 4.1 Chloride Level 93 L Carbon Dioxide Level 24 Anion Gap 20 H Blood Urea Nitrogen 69 H Creatinine 7.76 H Glucose Level 119 Calcium Level 8.6 Test 10/14/16 08:16 10/14/16 09:37 10/14/16 10:27 10/14/16 10:32 Bedside Glucose 90 130 179 Blood Gas Specimen Source Blood arterial Arterial Blood Date Drawn 10/14/2016 11:00:50 AM Arterial Blood pH (Temp corrected) 7.437 Arterial Blood pCO2 (Temp correct) 30.2 L Arterial Blood pO2 (Temp corrected) 120.5 H Arterial Blood HCO3 19.9 L Arterial Blood Base Excess -3.3 L Arterial Blood Oxygen Saturation 98.0 Dick Test N/A Arterial Blood Gas Puncture Site Right Brachial Arterial Blood Carboxyhemoglobin 0.1 Arterial Blood Methemoglobin 0.4 Blood Gas A-a O2 Differential 57.9 H Oxyhemoglobin Percent 97.5 Total Hemoglobin 11.6 L Blood Gas Temperature 37.0 Blood Gas Actual Respiration Rate 18 Blood Gas Modality VENT - CPAP FiO2 30.0 Blood Gas Low PEEP Setting 5.0 Blood Gas Pressure Support 10 Blood Gas Notified Whom JLD Blood Gas Notified Time 10/14/2016 11:16:35 AM Test 10/14/16 11:23 Bedside Glucose 241 H Medications Medications Current Medications Ondansetron HCl (Zofran Inj) 4 mg Q6H PRN IV NAUSEA AND/OR VOMITING; Start at 06:00 Acetaminophen (Tylenol Liquid) 650 mg Q6H PRN PO PAIN LEVEL 1-3 OR FEVER Last administered on 09/30/16 08:32; Admin Dose 650 MG; Start 09/28/16 at 06:00 Hydromorphone HCl (Dilaudid) 0.5 mg Q4H PRN IV PAIN LEVEL 7-10 Last administered on 10/11/16 09:02; Admin Dose 0.5 MG; Start 09/28/16 at 06:00 Heparin Sodium (Porcine) (Heparin (5000 Units/0.5 ml)) 5,000 unit Q12 SC Last administered on 10/13/16 08:44; Admin Dose 5,000 UNIT; Start 09/28/16 at 09:00 Famotidine 20 mg 20 mg DAILY IV Last administered on 10/14/16 09:39; Admin Dose 20 MG; Start 09/28/16 at 09:00 Propofol 100 ml @ 2.31 mls/hr Q12H IV Last administered on 10/14/16 04:49; Admin Dose 20.79 MLS/HR; Start 09/28/16 at 11:30 Midazolam HCl 50 ml @ 1 mls/hr TITRATE IV Last administered on 10/06/16 22:25 ; Admin Dose 1 MLS/HR; Start 09/28/16 at 11:30 Fentanyl (Sublimaze) 100 ml @ 2.5 mls/hr TITRATE IV Last administered on 16:48; Admin Dose 2.5 MLS/HR; Start 09/29/16 at 09:00 Acetaminophen (Tylenol Liquid) 650 mg Q4H PRN NGT PAIN AND OR ELEVATED TEMP Last administered on 10/06/16 23:16; Admin Dose 650 MG; Start 09/30/16 at 08:30 Prasugrel (Effient) 10 mg DAILY PO Last administered on 10/14/16 09:39; Admin Dose 10 MG; Start 10/02/16 at 09:00 Carvedilol (Coreg) 12.5 mg BID NGT Last administered on 10/14/16 09:39; Admin Dose 12.5 MG; Start 10/02/16 at 21:00 Miscellaneous Information This patient osorio... PRN PRN XX WOUND CARE; Start 10/06 at 09:30 Norepinephrine 16 mg/Dextrose 500 ml @ 1.87 mls/hr TITRATE IV Last administered on 10/07/16 21:07; Admin Dose 37.5 MLS/HR; Start 10/06/16 at 12:00 Phenylephrine HCl/ Dextrose (Brice-Syneph/D5W) 500 ml @ 75 mls/hr TITRATE IV ; Start 10/06/16 at 12:00 Calcium Carbonate 1250 mg 1,250 mg BID NGT Last administered on 10/14/16 09:39 ; Admin Dose 1,250 MG; Start 10/07/16 at 10:30 Linezolid (Zyvox 600mg/D5W (Pmx)) 300 ml @ 300 mls/hr Q12 IVPB Last administered on 10/14/16 09:40; Admin Dose 300 MLS/HR; Start 10/07/16 at 21:00 Aspirin (Aspirin) 81 mg DAILY NGT Last administered on 10/13/16 08:41; Admin Dose 81 MG; Start 10/08/16 at 09:00 Calcitriol (Calcitriol) 1 mcg DAILY IV Last administered on 10/14/16 09:40; Admin Dose 1 MCG; Start 10/08/16 at 14:00 Miscellaneous Information 1 ea NOTE XX ; Start 10/10/16 at 15:30 Glucose (Glutose) 15 gm Q15M PRN PO DECREASED GLUCOSE; Start 10/10/16 at 15:30 Glucose (Glutose) 22.5 gm Q15M PRN PO DECREASED GLUCOSE; Start 10/10/16 at 15: 30 Dextrose (D50w Syringe) 25 ml Q15M PRN IV DECREASED GLUCOSE; Start 10/10/16 at 15:30 Dextrose (D50w Syringe) 50 ml Q15M PRN IV DECREASED GLUCOSE; Start 10/10/16 at 15:30 Glucagon (Glucagen) 1 mg Q15M PRN IM DECREASED GLUCOSE; Start 10/10/16 at 15:30 Glucose (Glutose) 15 gm Q15M PRN BUCCAL DECREASED GLUCOSE; Start 10/10/16 at 15 :30 Diphenoxylate HCl/ Atropine (Lomotil Liquid Cup) 10 ml Q8H PRN NGT LOOSE STOOLS ; Start 10/10/16 at 18:00 Diagnostic Test (Pha) (Accu-Chek) 1 ea Q1H XX Last administered on 10/14/16 11: 24; Admin Dose 1 EA; Start 10/10/16 at 22:00 Dextrose (D50w Syringe) 25 ml Q15M PRN IV Till BS 80 mg/dL or above x2 Last administered on 10/13/16 20:29; Admin Dose 25 ML; Start 10/10/16 at 21:30 Dextrose (D50w Syringe) 50 ml Q15M PRN IV Till BS 80 mg/dL or above x2; Start 10/10/16 at 21:30 ANGELINA CASTREJON October 14, 2016 11:55
[2016-10-14] MEDS: ASPIRIN 81 MG TAB NGT SCH (13:12)
--- NOTE | 2016-10-14 13:12 | CONS ---
Date/Time of Note Date/Time of Note DATE: 10/14/16 TIME: 13:09 Assessment/Plan Assessment/Plan Chief Complaint/Hosp Course 1. ESRD , he is on maintenance hemodialysis . He has dialysis ordered for for today . Next dialysis in 2 days . 2. Type I DM 3. h/o flash pulmonary edema 4. HTN 5. CAD 6. respiratory failure on vent 7. on tube feeding .. 8. ALOC , he is sedated on Vent . 10. He is growing VRE from 1of 2 blood cultures , on antibiotics 11. hypocalcemia , this is correcting , he is on calcium carbonate and IV calcitriol . Problems: Consultation Date/Type/Reason Admit Date/Time Sep 28, 2016 at 05:39 Initial Consult Date 09/28/16 Type of Consultation: renal Referring Provider: WILMER RODRIGUEZ MD 24 HR Interval Summary Free Text/Dictation He was just extubated . He is lethargic but is responsive . Exam/Review of Systems Vital Signs Vitals Vital Signs Date Time Temp Pulse Resp B/P Pulse Ox O2 Delivery O2 Flow Rate FiO2 10/14/16 11:09 99 18 100 30 10/14/16 10:30 141/79 10/14/16 10:00 Mechanical Ventilator 10/14/16 08:30 97.6 Intake and Output 10/13/16 10/13/16 10/14/16 15:00 23:00 07:00 Intake Total 1071.34 ml 940.88 ml 602.98 ml Output Total 50 ml 100 ml Balance 1021.34 ml 940.88 ml 502.98 ml Exam Constitutional: frail Respiratory: clear to auscultation, diminished breath sounds Cardiovascular: regular rate and rhythm Gastrointestinal: soft Musculoskeletal: nl extremities to inspection Results Result Diagram: 10/14/16 0345 10/14/16 0345 Results 24 hrs Laboratory Tests Test 10/13/16 13:41 10/13/16 15:07 10/13/16 16:00 10/13/16 17:45 Bedside Glucose 175 181 205 101 Test 10/13/16 19:37 10/13/16 19:41 10/13/16 20:16 10/13/16 20:18 Bedside Glucose 84 85 52 L 67 L Test 10/13/16 20:23 10/13/16 20:45 10/13/16 21:03 10/13/16 22:08 Bedside Glucose 57 L 88 114 154 Test 10/13/16 23:00 10/13/16 23:55 10/14/16 01:01 10/14/16 03:10 Bedside Glucose 140 127 113 124 Test 10/14/16 03:45 10/14/16 05:08 10/14/16 06:54 10/14/16 08:16 White Blood Count 3.7 L Red Blood Count 3.53 L Hemoglobin 10.1 L Hematocrit 32.1 L Mean Corpuscular Volume 90.9 Mean Corpuscular Hemoglobin 28.6 L Mean Corpuscular Hemoglobin Concent 31.5 L Red Cell Distribution Width 17.6 H Platelet Count 220 Mean Platelet Volume 12.0 H Neutrophils % 55.8 Lymphocytes % 21.3 Monocytes % 12.6 H Eosinophils % 8.7 H Basophils % 1.1 Nucleated Red Blood Cells % 0.0 Neutrophils # 2.0 Lymphocytes # 0.8 Monocytes # 0.5 Eosinophils # 0.3 Basophils # 0.0 Nucleated Red Blood Cells # 0.0 Sodium Level 133 L Potassium Level 4.1 Chloride Level 93 L Carbon Dioxide Level 24 Anion Gap 20 H Blood Urea Nitrogen 69 H Creatinine 7.76 H Glucose Level 119 Calcium Level 8.6 Bedside Glucose 114 91 90 Test 10/14/16 09:37 10/14/16 10:27 10/14/16 10:32 10/14/16 11:23 Bedside Glucose 130 179 241 H Blood Gas Specimen Source Blood arterial Arterial Blood Date Drawn 10/14/2016 11:00:50 AM Arterial Blood pH (Temp corrected) 7.437 Arterial Blood pCO2 (Temp correct) 30.2 L Arterial Blood pO2 (Temp corrected) 120.5 H Arterial Blood HCO3 19.9 L Arterial Blood Base Excess -3.3 L Arterial Blood Oxygen Saturation 98.0 Dick Test N/A Arterial Blood Gas Puncture Site Right Brachial Arterial Blood Carboxyhemoglobin 0.1 Arterial Blood Methemoglobin 0.4 Blood Gas A-a O2 Differential 57.9 H Oxyhemoglobin Percent 97.5 Total Hemoglobin 11.6 L Blood Gas Temperature 37.0 Blood Gas Actual Respiration Rate 18 Blood Gas Modality VENT - CPAP FiO2 30.0 Blood Gas Low PEEP Setting 5.0 Blood Gas Pressure Support 10 Blood Gas Notified Whom MARKUSD Blood Gas Notified Time 10/14/2016 11:16:35 AM Test 10/14/16 12:19 Bedside Glucose 218 Medications Medications Current Medications Ondansetron HCl (Zofran Inj) 4 mg Q6H PRN IV NAUSEA AND/OR VOMITING; Start at 06:00 Acetaminophen (Tylenol Liquid) 650 mg Q6H PRN PO PAIN LEVEL 1-3 OR FEVER Last administered on 09/30/16 08:32; Admin Dose 650 MG; Start 09/28/16 at 06:00 Hydromorphone HCl (Dilaudid) 0.5 mg Q4H PRN IV PAIN LEVEL 7-10 Last administered on 10/11/16 09:02; Admin Dose 0.5 MG; Start 09/28/16 at 06:00 Heparin Sodium (Porcine) (Heparin (5000 Units/0.5 ml)) 5,000 unit Q12 SC Last administered on 10/13/16 08:44; Admin Dose 5,000 UNIT; Start 09/28/16 at 09:00 Famotidine 20 mg 20 mg DAILY IV Last administered on 10/14/16 09:39; Admin Dose 20 MG; Start 09/28/16 at 09:00 Propofol 100 ml @ 2.31 mls/hr Q12H IV Last administered on 10/14/16 04:49; Admin Dose 20.79 MLS/HR; Start 09/28/16 at 11:30 Midazolam HCl 50 ml @ 1 mls/hr TITRATE IV Last administered on 10/06/16 22:25 ; Admin Dose 1 MLS/HR; Start 09/28/16 at 11:30 Fentanyl (Sublimaze) 100 ml @ 2.5 mls/hr TITRATE IV Last administered on 16:48; Admin Dose 2.5 MLS/HR; Start 09/29/16 at 09:00 Acetaminophen (Tylenol Liquid) 650 mg Q4H PRN NGT PAIN AND OR ELEVATED TEMP Last administered on 10/06/16 23:16; Admin Dose 650 MG; Start 09/30/16 at 08:30 Prasugrel (Effient) 10 mg DAILY PO Last administered on 10/14/16 09:39; Admin Dose 10 MG; Start 10/02/16 at 09:00 Carvedilol (Coreg) 12.5 mg BID NGT Last administered on 10/14/16 09:39; Admin Dose 12.5 MG; Start 10/02/16 at 21:00 Miscellaneous Information This patient osorio... PRN PRN XX WOUND CARE; Start 10/06 at 09:30 Norepinephrine 16 mg/Dextrose 500 ml @ 1.87 mls/hr TITRATE IV Last administered on 10/07/16 21:07; Admin Dose 37.5 MLS/HR; Start 10/06/16 at 12:00 Phenylephrine HCl/ Dextrose (Brice-Syneph/D5W) 500 ml @ 75 mls/hr TITRATE IV ; Start 10/06/16 at 12:00 Calcium Carbonate 1250 mg 1,250 mg BID NGT Last administered on 10/14/16 09:39 ; Admin Dose 1,250 MG; Start 10/07/16 at 10:30 Linezolid (Zyvox 600mg/D5W (Pmx)) 300 ml @ 300 mls/hr Q12 IVPB Last administered on 10/14/16 09:40; Admin Dose 300 MLS/HR; Start 10/07/16 at 21:00 Aspirin (Aspirin) 81 mg DAILY NGT Last administered on 10/13/16 08:41; Admin Dose 81 MG; Start 10/08/16 at 09:00 Calcitriol (Calcitriol) 1 mcg DAILY IV Last administered on 10/14/16 09:40; Admin Dose 1 MCG; Start 10/08/16 at 14:00 Miscellaneous Information 1 ea NOTE XX ; Start 10/10/16 at 15:30 Glucose (Glutose) 15 gm Q15M PRN PO DECREASED GLUCOSE; Start 10/10/16 at 15:30 Glucose (Glutose) 22.5 gm Q15M PRN PO DECREASED GLUCOSE; Start 10/10/16 at 15: 30 Dextrose (D50w Syringe) 25 ml Q15M PRN IV DECREASED GLUCOSE; Start 10/10/16 at 15:30 Dextrose (D50w Syringe) 50 ml Q15M PRN IV DECREASED GLUCOSE; Start 10/10/16 at 15:30 Glucagon (Glucagen) 1 mg Q15M PRN IM DECREASED GLUCOSE; Start 10/10/16 at 15:30 Glucose (Glutose) 15 gm Q15M PRN BUCCAL DECREASED GLUCOSE; Start 10/10/16 at 15 :30 Diphenoxylate HCl/ Atropine (Lomotil Liquid Cup) 10 ml Q8H PRN NGT LOOSE STOOLS ; Start 10/10/16 at 18:00 Diagnostic Test (Pha) (Accu-Chek) 1 ea Q1H XX Last administered on 10/14/16 12: 19; Admin Dose 1 EA; Start 10/10/16 at 22:00 Dextrose (D50w Syringe) 25 ml Q15M PRN IV Till BS 80 mg/dL or above x2 Last administered on 10/13/16 20:29; Admin Dose 25 ML; Start 10/10/16 at 21:30 Dextrose (D50w Syringe) 50 ml Q15M PRN IV Till BS 80 mg/dL or above x2; Start 10/10/16 at 21:30 DONY HOWARD MD October 14, 2016 13:12
[2016-10-14] MEDS: HEPARIN 5,000 UNIT/0.5 ML VIAL SC SCH ×2 (13:48→20:08)
[2016-10-14] MEDS ORDERED: ALBUTEROL/IPRATROPIUM (NEB) 3 ML AMP HHN PRN (15:30)
--- NOTE | 2016-10-14 17:05 | CONS ---
Date/Time of Note Date/Time of Note DATE: 10/14/16 TIME: 17:03 Consult Date/Type/Reason Admit Date/Time Sep 28, 2016 at 05:39 Initial Consult Date 10/01/16 Type of Consultation: Cardiac and Vascular Intervent Ordering Provider: WILMER RODRIGUEZ MD Objective Vital Signs Date Time Temp Pulse Resp B/P Pulse Ox O2 Delivery O2 Flow Rate FiO2 10/14/16 14:00 95 25 98/56 95 Mechanical Ventilator 10/14/16 13:00 10/14/16 13:00 98.8 10/14/16 11:09 30 Intake and Output 10/13/16 10/13/16 10/14/16 15:00 23:00 07:00 Intake Total 1071.34 ml 940.88 ml 602.98 ml Output Total 50 ml 100 ml Balance 1021.34 ml 940.88 ml 502.98 ml Results/Medications Result Diagram: 10/14/16 0345 10/14/16 0345 Results 24 hrs Laboratory Tests Test 10/13/16 17:45 10/13/16 19:37 10/13/16 19:41 10/13/16 20:16 Bedside Glucose 101 84 85 52 L Test 10/13/16 20:18 10/13/16 20:23 10/13/16 20:45 10/13/16 21:03 Bedside Glucose 67 L 57 L 88 114 Test 10/13/16 22:08 10/13/16 23:00 10/13/16 23:55 10/14/16 01:01 Bedside Glucose 154 140 127 113 Test 10/14/16 03:10 10/14/16 03:45 10/14/16 05:08 10/14/16 06:54 Bedside Glucose 124 114 91 White Blood Count 3.7 L Red Blood Count 3.53 L Hemoglobin 10.1 L Hematocrit 32.1 L Mean Corpuscular Volume 90.9 Mean Corpuscular Hemoglobin 28.6 L Mean Corpuscular Hemoglobin Concent 31.5 L Red Cell Distribution Width 17.6 H Platelet Count 220 Mean Platelet Volume 12.0 H Neutrophils % 55.8 Lymphocytes % 21.3 Monocytes % 12.6 H Eosinophils % 8.7 H Basophils % 1.1 Nucleated Red Blood Cells % 0.0 Neutrophils # 2.0 Lymphocytes # 0.8 Monocytes # 0.5 Eosinophils # 0.3 Basophils # 0.0 Nucleated Red Blood Cells # 0.0 Sodium Level 133 L Potassium Level 4.1 Chloride Level 93 L Carbon Dioxide Level 24 Anion Gap 20 H Blood Urea Nitrogen 69 H Creatinine 7.76 H Glucose Level 119 Calcium Level 8.6 Test 10/14/16 08:16 10/14/16 09:37 10/14/16 10:27 10/14/16 10:32 Bedside Glucose 90 130 179 Blood Gas Specimen Source Blood arterial Arterial Blood Date Drawn 10/14/2016 11:00:50 AM Arterial Blood pH (Temp corrected) 7.437 Arterial Blood pCO2 (Temp correct) 30.2 L Arterial Blood pO2 (Temp corrected) 120.5 H Arterial Blood HCO3 19.9 L Arterial Blood Base Excess -3.3 L Arterial Blood Oxygen Saturation 98.0 Dick Test N/A Arterial Blood Gas Puncture Site Right Brachial Arterial Blood Carboxyhemoglobin 0.1 Arterial Blood Methemoglobin 0.4 Blood Gas A-a O2 Differential 57.9 H Oxyhemoglobin Percent 97.5 Total Hemoglobin 11.6 L Blood Gas Temperature 37.0 Blood Gas Actual Respiration Rate 18 Blood Gas Modality VENT - CPAP FiO2 30.0 Blood Gas Low PEEP Setting 5.0 Blood Gas Pressure Support 10 Blood Gas Notified Whom JLD Blood Gas Notified Time 10/14/2016 11:16:35 AM Test 10/14/16 11:23 10/14/16 12:19 10/14/16 13:11 10/14/16 14:25 Bedside Glucose 241 H 218 182 103 Test 10/14/16 15:00 10/14/16 16:26 Bedside Glucose 88 97 Medications Current Medications Ondansetron HCl (Zofran Inj) 4 mg Q6H PRN IV NAUSEA AND/OR VOMITING; Start at 06:00 Acetaminophen (Tylenol Liquid) 650 mg Q6H PRN PO PAIN LEVEL 1-3 OR FEVER Last administered on 09/30/16 08:32; Admin Dose 650 MG; Start 09/28/16 at 06:00 Hydromorphone HCl (Dilaudid) 0.5 mg Q4H PRN IV PAIN LEVEL 7-10 Last administered on 10/11/16 09:02; Admin Dose 0.5 MG; Start 09/28/16 at 06:00 Heparin Sodium (Porcine) (Heparin (5000 Units/0.5 ml)) 5,000 unit Q12 SC Last administered on 10/14/16 13:48; Admin Dose 5,000 UNIT; Start 09/28/16 at 09:00 Famotidine 20 mg 20 mg DAILY IV Last administered on 10/14/16 09:39; Admin Dose 20 MG; Start 09/28/16 at 09:00 Propofol 100 ml @ 2.31 mls/hr Q12H IV Last administered on 10/14/16 04:49; Admin Dose 20.79 MLS/HR; Start 09/28/16 at 11:30 Midazolam HCl 50 ml @ 1 mls/hr TITRATE IV Last administered on 10/06/16 22:25 ; Admin Dose 1 MLS/HR; Start 09/28/16 at 11:30 Fentanyl (Sublimaze) 100 ml @ 2.5 mls/hr TITRATE IV Last administered on 16:48; Admin Dose 2.5 MLS/HR; Start 09/29/16 at 09:00 Acetaminophen (Tylenol Liquid) 650 mg Q4H PRN NGT PAIN AND OR ELEVATED TEMP Last administered on 10/06/16 23:16; Admin Dose 650 MG; Start 09/30/16 at 08:30 Prasugrel (Effient) 10 mg DAILY PO Last administered on 10/14/16 09:39; Admin Dose 10 MG; Start 10/02/16 at 09:00 Carvedilol (Coreg) 12.5 mg BID NGT Last administered on 10/14/16 09:39; Admin Dose 12.5 MG; Start 10/02/16 at 21:00 Miscellaneous Information This patient osorio... PRN PRN XX WOUND CARE; Start 10/06 at 09:30 Norepinephrine 16 mg/Dextrose 500 ml @ 1.87 mls/hr TITRATE IV Last administered on 10/07/16 21:07; Admin Dose 37.5 MLS/HR; Start 10/06/16 at 12:00 Phenylephrine HCl/ Dextrose (Brice-Syneph/D5W) 500 ml @ 75 mls/hr TITRATE IV ; Start 10/06/16 at 12:00 Calcium Carbonate 1250 mg 1,250 mg BID NGT Last administered on 10/14/16 09:39 ; Admin Dose 1,250 MG; Start 10/07/16 at 10:30 Linezolid (Zyvox 600mg/D5W (Pmx)) 300 ml @ 300 mls/hr Q12 IVPB Last administered on 10/14/16 09:40; Admin Dose 300 MLS/HR; Start 10/07/16 at 21:00 Aspirin (Aspirin) 81 mg DAILY NGT Last administered on 10/14/16 13:12; Admin Dose 81 MG; Start 10/08/16 at 09:00 Calcitriol (Calcitriol) 1 mcg DAILY IV Last administered on 10/14/16 09:40; Admin Dose 1 MCG; Start 10/08/16 at 14:00 Miscellaneous Information 1 ea NOTE XX ; Start 10/10/16 at 15:30 Glucose (Glutose) 15 gm Q15M PRN PO DECREASED GLUCOSE; Start 10/10/16 at 15:30 Glucose (Glutose) 22.5 gm Q15M PRN PO DECREASED GLUCOSE; Start 10/10/16 at 15: 30 Dextrose (D50w Syringe) 25 ml Q15M PRN IV DECREASED GLUCOSE; Start 10/10/16 at 15:30 Dextrose (D50w Syringe) 50 ml Q15M PRN IV DECREASED GLUCOSE; Start 10/10/16 at 15:30 Glucagon (Glucagen) 1 mg Q15M PRN IM DECREASED GLUCOSE; Start 10/10/16 at 15:30 Glucose (Glutose) 15 gm Q15M PRN BUCCAL DECREASED GLUCOSE; Start 10/10/16 at 15 :30 Diphenoxylate HCl/ Atropine (Lomotil Liquid Cup) 10 ml Q8H PRN NGT LOOSE STOOLS ; Start 10/10/16 at 18:00 Diagnostic Test (Pha) (Accu-Chek) 1 ea Q1H XX Last administered on 10/14/16 16: 28; Admin Dose 1 EA; Start 10/10/16 at 22:00 Dextrose (D50w Syringe) 25 ml Q15M PRN IV Till BS 80 mg/dL or above x2 Last administered on 10/13/16 20:29; Admin Dose 25 ML; Start 10/10/16 at 21:30 Dextrose (D50w Syringe) 50 ml Q15M PRN IV Till BS 80 mg/dL or above x2; Start 10/10/16 at 21:30 Assessment/Plan Chief Complaint/Hosp Course Patient is know pt to me, he has CAD with s/p PCI of LAD [employer]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 mild elevated trop and non ischemic EKG. Problems: Additional Assessment/Plan Pt is extubated now doing fine stable getting HD Continue pain mx ICU care PT consider tx out of ICU once stable CAD stable PAD stable CYNDIE GARCIA MD October 14, 2016 17:05
[2016-10-14] MEDS: HYDROmorphONE 1 MG/ML SYG IV PRN ×2 (17:20→22:08)
--- NOTE | 2016-10-14 19:04 | PN ---
Date/Time of Note Date/Time of Note DATE: 10/14/16 TIME: 19:03 Assessment/Plan Lines/Catheters IV Catheter Type (from Nrsg): portacath Foster in Place (from Nrsg): No Assessment/Plan Chief Complaint/Hosp Course IMPRESSION: Respiratory failure. RECOMMENDATIONS: We will proceed with the placement of a tracheostomy . Discussed with the nursing staff. Plan for surgery tomorrow All questions answered. Problems: Subjective 24 Hr Interval Summary Constitutional: improved Pain Control: mild Exam/Review of Systems Vital Signs Vitals Vital Signs Date Time Temp Pulse Resp B/P Pulse Ox O2 Delivery O2 Flow Rate FiO2 10/14/16 18:40 100 10/14/16 18:40 20 10/14/16 18:30 117/72 95 10/14/16 18:00 Mechanical Ventilator 10/14/16 16:00 98.8 10/14/16 13:00 10/14/16 11:09 30 Intake and Output 10/13/16 10/13/16 10/14/16 15:00 23:00 07:00 Intake Total 1071.34 ml 940.88 ml 602.98 ml Output Total 50 ml 100 ml Balance 1021.34 ml 940.88 ml 502.98 ml Exam Neck: non-tender, supple Respiratory: clear to auscultation, normal air movement Gastrointestinal: nl liver, spleen, non-tender, soft Results Result Diagram: 10/14/16 0345 10/14/16 0345 IRASEMA QUINN MD October 14, 2016 19:04
--- NOTE | 2016-10-14 19:29 | CONS ---
DATE OF ADMISSION: 09/28/2016 DATE OF CONSULTATION: HISTORY OF PRESENT ILLNESS: At this time, I am following the patient because of abnormal liver func tions. The patient currently is extubated. He is still very lethargic. He is nonverbal at this time. No history of GI bleeding. PHYSICAL EXAMINATION: VITAL SIGNS: Pulse is 90, blood pressure 120/78. CARDIOVASCULAR: Normal heart sounds. RESPIRATORY: Normal breath sounds. ABDOMEN: Shows soft abdomen. LABORATORY FUNCTIONS: As of yesterday, AST 84, ALT 215, alkaline phosphatase is 297. IMAGING: The chest x-ray shows NG tube in place. No pleural effusion, no pneumothorax. Heart is n ormal. CLINICAL IMPRESSION: Improving liver functions secondary to shock liver, but certainly liver functi ons have made a big improvement. PLAN: Continue to observe the patient. There was a consideration of putting a percutaneous endosco pic gastrostomy, which is not necessary at this time because the patient is extubated. Dictated By: RENAE VILCHIS MD [place]/SERGO Conf#: [id number] DID#: [id number] CC: RENAE VILCHIS MD; SHANTE SALDAÑA MD;*EndCC*
[2016-10-15] VITALS (22 sets, daily range): BP systolic 118–170; BP diastolic 71–114; PULSE 85–103; RESP 8–26
[2016-10-15] MEDS: ACCU-CHEK XX SCH ×16 (01:21→16:14)
[2016-10-15] MEDS: HYDROmorphONE 1 MG/ML SYG IV PRN ×6 (03:39→23:55)
[2016-10-15] MEDS: CA CARBONATE (250 MG/ML) 5ML CUP NGT SCH ×2 (08:21→21:00)
[2016-10-15] MEDS: ASPIRIN 81 MG TAB NGT SCH (08:21)
[2016-10-15] MEDS: PRASUGREL HYDROCHLORIDE 10 MG TABLET PO SCH (08:21)
[2016-10-15] MEDS: LINEZOLID 600 MG/D5W (PMX) 300 ML IVPB SCH ×3 (08:27→20:39)
[2016-10-15] MEDS: CALCITRIOL 1 MCG INJ IV SCH (08:27)
[2016-10-15] MEDS: HEPARIN 5,000 UNIT/0.5 ML VIAL SC SCH ×2 (08:33→20:41)
--- NOTE | 2016-10-15 08:59 | CONS ---
Date/Time of Note Date/Time of Note DATE: 10/15/16 TIME: 08:57 Assessment/Plan Assessment/Plan Additional Assessment/Plan Assessment recommendations; 1. Patient admitted for respiratory failure due to pulmonary edema pneumonia with marked overall clinical improvement. 2. End-stage renal disease, on hemodialysis. 3. Patient is legally blind. Continue current treatment. Patient can be transferred to medical floor. Discontinue antibiotics. Consultation Date/Type/Reason Admit Date/Time Sep 28, 2016 at 05:39 Initial Consult Date 09/28/16 Type of Consultation: Pulmonary/critical care Referring Provider: WILMER RODRIGUEZ MD 24 HR Interval Summary Free Text/Dictation Patient condition is stable. He was successfully extubated yesterday afternoon. Has remained hemodynamically stable. Remains awake alert. General exam; middle-aged male, awake alert currently in no distress. Exam/Review of Systems Vital Signs Vitals Vital Signs Date Time Temp Pulse Resp B/P Pulse Ox O2 Delivery O2 Flow Rate FiO2 10/15/16 07:00 99 17 154/91 99 Room Air 10/15/16 04:00 97.5 10/14/16 13:00 10/14/16 11:09 30 Intake and Output 10/14/16 10/14/16 10/15/16 15:00 23:00 07:00 Intake Total 495.5 ml 859.0 ml 14.0 ml Output Total 100 ml 3620 ml Balance 395.5 ml -2761.0 ml 14.0 ml Exam HEENT exam is; supple neck, no JVD. No lymphadenopathy. Midline trachea. No thyromegaly. Pharynx is clear. Pupils are midsize and reactive to light. Patient has fair dentition. Chest examination; clear to auscultation. S1-S2 audible, no murmurs. Regular rhythm. Abdomen examination; soft, nondistended, nontender. Bowel sounds audible. Extremity examination; no peripheral edema. Pulses 1+ bilaterally. 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 Results Result Diagram: 10/14/16 0345 10/14/16 0345 Results 24 hrs Laboratory Tests Test 10/14/16 09:37 10/14/16 10:27 10/14/16 10:32 10/14/16 11:23 Bedside Glucose 130 179 241 H Blood Gas Specimen Source Blood arterial Arterial Blood Date Drawn 10/14/2016 11:00:50 AM Arterial Blood pH (Temp corrected) 7.437 Arterial Blood pCO2 (Temp correct) 30.2 L Arterial Blood pO2 (Temp corrected) 120.5 H Arterial Blood HCO3 19.9 L Arterial Blood Base Excess -3.3 L Arterial Blood Oxygen Saturation 98.0 Dick Test N/A Arterial Blood Gas Puncture Site Right Brachial Arterial Blood Carboxyhemoglobin 0.1 Arterial Blood Methemoglobin 0.4 Blood Gas A-a O2 Differential 57.9 H Oxyhemoglobin Percent 97.5 Total Hemoglobin 11.6 L Blood Gas Temperature 37.0 Blood Gas Actual Respiration Rate 18 Blood Gas Modality VENT - CPAP FiO2 30.0 Blood Gas Low PEEP Setting 5.0 Blood Gas Pressure Support 10 Blood Gas Notified Whom JLD Blood Gas Notified Time 10/14/2016 11:16:35 AM Test 10/14/16 12:19 10/14/16 13:11 10/14/16 14:25 10/14/16 15:00 Bedside Glucose 218 182 103 88 Test 10/14/16 16:26 10/14/16 17:18 10/14/16 18:30 10/14/16 19:04 Bedside Glucose 97 131 141 138 Test 10/14/16 19:59 10/14/16 20:59 10/14/16 23:01 10/15/16 00:52 Bedside Glucose 121 146 154 91 Test 10/15/16 01:53 10/15/16 02:57 10/15/16 04:00 10/15/16 06:03 Bedside Glucose 141 150 125 114 Test 10/15/16 07:24 10/15/16 08:11 Bedside Glucose 130 114 Medications Medications Current Medications Ondansetron HCl (Zofran Inj) 4 mg Q6H PRN IV NAUSEA AND/OR VOMITING; Start at 06:00 Acetaminophen (Tylenol Liquid) 650 mg Q6H PRN PO PAIN LEVEL 1-3 OR FEVER Last administered on 09/30/16 08:32; Admin Dose 650 MG; Start 09/28/16 at 06:00 Hydromorphone HCl (Dilaudid) 0.5 mg Q4H PRN IV PAIN LEVEL 7-10 Last administered on 10/15/16 07:37; Admin Dose 0.5 MG; Start 09/28/16 at 06:00 Heparin Sodium (Porcine) (Heparin (5000 Units/0.5 ml)) 5,000 unit Q12 SC Last administered on 10/15/16 08:33; Admin Dose 5,000 UNIT; Start 09/28/16 at 09:00 Famotidine 20 mg 20 mg DAILY IV Last administered on 10/14/16 09:39; Admin Dose 20 MG; Start 09/28/16 at 09:00 Propofol 100 ml @ 2.31 mls/hr Q12H IV Last administered on 10/14/16 04:49; Admin Dose 20.79 MLS/HR; Start 09/28/16 at 11:30 Midazolam HCl 50 ml @ 1 mls/hr TITRATE IV Last administered on 10/06/16 22:25 ; Admin Dose 1 MLS/HR; Start 09/28/16 at 11:30 Fentanyl (Sublimaze) 100 ml @ 2.5 mls/hr TITRATE IV Last administered on 16:48; Admin Dose 2.5 MLS/HR; Start 09/29/16 at 09:00 Acetaminophen (Tylenol Liquid) 650 mg Q4H PRN NGT PAIN AND OR ELEVATED TEMP Last administered on 10/06/16 23:16; Admin Dose 650 MG; Start 09/30/16 at 08:30 Prasugrel (Effient) 10 mg DAILY PO Last administered on 10/14/16 09:39; Admin Dose 10 MG; Start 10/02/16 at 09:00 Carvedilol (Coreg) 12.5 mg BID NGT Last administered on 10/14/16 20:07; Admin Dose 12.5 MG; Start 10/02/16 at 21:00 Miscellaneous Information This patient osorio... PRN PRN XX WOUND CARE; Start 10/06 at 09:30 Norepinephrine 16 mg/Dextrose 500 ml @ 1.87 mls/hr TITRATE IV Last administered on 10/07/16 21:07; Admin Dose 37.5 MLS/HR; Start 10/06/16 at 12:00 Phenylephrine HCl/ Dextrose (Brice-Syneph/D5W) 500 ml @ 75 mls/hr TITRATE IV ; Start 10/06/16 at 12:00 Calcium Carbonate 1250 mg 1,250 mg BID NGT Last administered on 10/14/16 20:07 ; Admin Dose 1,250 MG; Start 10/07/16 at 10:30 Linezolid (Zyvox 600mg/D5W (Pmx)) 300 ml @ 300 mls/hr Q12 IVPB Last administered on 10/15/16 08:27; Admin Dose 300 MLS/HR; Start 10/07/16 at 21:00 Aspirin (Aspirin) 81 mg DAILY NGT Last administered on 10/14/16 13:12; Admin Dose 81 MG; Start 10/08/16 at 09:00 Calcitriol (Calcitriol) 1 mcg DAILY IV Last administered on 10/15/16 08:27; Admin Dose 1 MCG; Start 10/08/16 at 14:00 Miscellaneous Information 1 ea NOTE XX ; Start 10/10/16 at 15:30 Glucose (Glutose) 15 gm Q15M PRN PO DECREASED GLUCOSE; Start 10/10/16 at 15:30 Glucose (Glutose) 22.5 gm Q15M PRN PO DECREASED GLUCOSE; Start 10/10/16 at 15: 30 Dextrose (D50w Syringe) 25 ml Q15M PRN IV DECREASED GLUCOSE; Start 10/10/16 at 15:30 Dextrose (D50w Syringe) 50 ml Q15M PRN IV DECREASED GLUCOSE; Start 10/10/16 at 15:30 Glucagon (Glucagen) 1 mg Q15M PRN IM DECREASED GLUCOSE; Start 10/10/16 at 15:30 Glucose (Glutose) 15 gm Q15M PRN BUCCAL DECREASED GLUCOSE; Start 10/10/16 at 15 :30 Diphenoxylate HCl/ Atropine (Lomotil Liquid Cup) 10 ml Q8H PRN NGT LOOSE STOOLS ; Start 10/10/16 at 18:00 Diagnostic Test (Pha) (Accu-Chek) 1 ea Q1H XX Last administered on 10/15/16 08: 10; Admin Dose 1 EA; Start 10/10/16 at 22:00 Dextrose (D50w Syringe) 25 ml Q15M PRN IV Till BS 80 mg/dL or above x2 Last administered on 10/13/16 20:29; Admin Dose 25 ML; Start 10/10/16 at 21:30 Dextrose (D50w Syringe) 50 ml Q15M PRN IV Till BS 80 mg/dL or above x2; Start 10/10/16 at 21:30 ELTON FELIX October 15, 2016 08:59
[2016-10-15] MEDS: FAMOTIDINE 20 MG INJ IV SCH (09:04)
--- NOTE | 2016-10-15 10:10 | RADRPT ---
PROCEDURE: XR Chest. CLINICAL INDICATION: Shortness of breath. TECHNIQUE: Single frontal view. COMPARISON: 10/13/2016 FINDINGS: There is interval removal of the endotracheal tube and nasogastric tube. The left-sided Port-A-Cath remain in satisfactory position. There is mild atelectasis at the lung bases, unchanged. The lung s are otherwise clear. The heart size is normal. There is no pleural effusion. There is no pneumo thorax. IMPRESSION: 1. No evidence of acute cardiopulmonary process. 2. Interval removal of the tracheal tube and enteric tube. Stable left Port-A-Cath with the tip ne ar the cavoatrial junction. RPTAT: JJ .Joe Holguin MD, MD Date Time Electronically viewed and signed by .Joe Holguin MD, on 10/15/2016 10:10 .A/
[2016-10-15] MEDS: PROPOFOL 100 ML IV SCH (11:16)
--- NOTE | 2016-10-15 11:42 | PN ---
Date/Time of Note Date/Time of Note DATE: 10/15/16 TIME: 11:39 Assessment/Plan VTE Prophylaxis VTE Prophylaxis Intervention: SCD's Lines/Catheters IV [facility]ter [facility]from [facility]A-CATH Urinary Cath still in place: No Assessment/Plan Chief Complaint/Hosp Course ASSESSMENT AND PLAN: - Acute respiratory failure, requiring oral intubation and ventilatory support secondary to pulmonary edema, resolved. Dr. Nunez is following in pulmonology consultation. - S/-p septic shock. - VRE bacteremia, continue Zyvox, continue antibiotics per ID. - End-stage renal disease, hemodialysis dependent. Dr. Hubbard is following the patient in nephrology consultation. Continue the hemodialysis per nephrology. - Diabetes mellitus type [address] Garay is following endocrinology consultation. Continue patient on insulin drip. - Peripheral arterial disease, status post vascular intervention. Continue heparin. - Anemia of chronic disease. Continue Epogen. - Coronary artery disease. Dr. Stephen is following in cardiology consultation. - Possible healthcare acquired pneumonia. Continue antibiotics per ID. Dr. Allison is following in ID consultation. - Transaminitis most likely to shock liver, resolving. Dr. Britt is following in gastroenterology consultation Continue heparin for deep venous thrombosis prophylaxis and Pepcid for peptic ulcer disease prophylaxis. Further recommendations based on clinical course. Plan of care discussed with Dr. Rosales. Problems: Subjective 24 Hr Interval Summary Free Text/Dictation Patient was extubated yesterday currently breathing comfortably on room air, remains hemodynamically stable, continued on insulin drip for blood sugar control. Exam/Review of Systems Vital Signs Vitals Vital Signs Date Time Temp Pulse Resp B/P Pulse Ox O2 Delivery O2 Flow Rate FiO2 10/15/16 11:00 100 20 148/80 100 Room Air 10/15/16 04:00 97.5 10/14/16 13:00 10/14/16 11:09 30 Intake and Output 10/14/16 10/14/16 10/15/16 15:00 23:00 07:00 Intake Total 495.5 ml 859.0 ml 14.0 ml Output Total 100 ml 3620 ml Balance 395.5 ml -2761.0 ml 14.0 ml Exam GENERAL: Well-developed, well-nourished gentleman, lethargic but arousable. HEENT: Head is atraumatic, normocephalic. Patient has a right eye prosthesis. Left eye pupil is equal, round, sluggishly reactive to light and accommodation. NECK: Supple, no cervical lymphadenopathy, no thyromegaly. CHEST: Lung sounds diminished at the bases. Scattered rhonchi bilaterally. Patient has a left chest Port-A-Cath. CARDIOVASCULAR: Normal S1, S2. No murmurs, gallops, clicks, rubs noted. ABDOMEN: Round, soft, nondistended, nontender. Bowel sounds present. EXTREMITIES: There is mild edema. There is no clubbing, cyanosis. Left upper extremity with AV graft. SKIN: No rash, petechiae noted. NEUROLOGIC: Lethargic but arousable Results Result Diagram: 10/14/16 0345 10/14/16 0345 Results 24 hrs Laboratory Tests Test 10/14/16 12:19 10/14/16 13:11 10/14/16 14:25 10/14/16 15:00 Bedside Glucose 218 182 103 88 Test 10/14/16 16:26 10/14/16 17:18 10/14/16 18:30 10/14/16 19:04 Bedside Glucose 97 131 141 138 Test 10/14/16 19:59 10/14/16 20:59 10/14/16 23:01 10/15/16 00:52 Bedside Glucose 121 146 154 91 Test 10/15/16 01:53 10/15/16 02:57 10/15/16 04:00 10/15/16 06:03 Bedside Glucose 141 150 125 114 Test 10/15/16 07:24 10/15/16 08:11 10/15/16 08:51 10/15/16 10:08 Bedside Glucose 130 114 128 163 Test 10/15/16 11:09 Bedside Glucose 152 Medications Medications Current Medications Ondansetron HCl (Zofran Inj) 4 mg Q6H PRN IV NAUSEA AND/OR VOMITING; Start at 06:00 Acetaminophen (Tylenol Liquid) 650 mg Q6H PRN PO PAIN LEVEL 1-3 OR FEVER Last administered on 09/30/16t 08:32; Admin Dose 650 MG; Start 09/28/16 at 06:00 Hydromorphone HCl (Dilaudid) 0.5 mg Q4H PRN IV PAIN LEVEL 7-10 Last administered on 10/15/16 11:28; Admin Dose 0.5 MG; Start 09/28/16 at 06:00 Heparin Sodium (Porcine) (Heparin (5000 Units/0.5 ml)) 5,000 unit Q12 SC Last administered on 10/15/16 08:33; Admin Dose 5,000 UNIT; Start 09/28/16 at 09:00 Famotidine 20 mg 20 mg DAILY IV Last administered on 10/15/16 09:04; Admin Dose 20 MG; Start 09/28/16 at 09:00 Propofol 100 ml @ 2.31 mls/hr Q12H IV Last administered on 10/14/16 04:49; Admin Dose 20.79 MLS/HR; Start 09/28/16 at 11:30 Midazolam HCl 50 ml @ 1 mls/hr TITRATE IV Last administered on 10/06/16 22:25 ; Admin Dose 1 MLS/HR; Start 09/28/16 at 11:30 Fentanyl (Sublimaze) 100 ml @ 2.5 mls/hr TITRATE IV Last administered on 16:48; Admin Dose 2.5 MLS/HR; Start 09/29/16 at 09:00 Acetaminophen (Tylenol Liquid) 650 mg Q4H PRN NGT PAIN AND OR ELEVATED TEMP Last administered on 10/06/16 23:16; Admin Dose 650 MG; Start 09/30/16 at 08:30 Prasugrel (Effient) 10 mg DAILY PO Last administered on 10/14/16 09:39; Admin Dose 10 MG; Start 10/02/16 at 09:00 Carvedilol (Coreg) 12.5 mg BID NGT Last administered on 10/14/16 20:07; Admin Dose 12.5 MG; Start 10/02/16 at 21:00 Miscellaneous Information This patient osorio... PRN PRN XX WOUND CARE; Start 10/06 at 09:30 Norepinephrine 16 mg/Dextrose 500 ml @ 1.87 mls/hr TITRATE IV Last administered on 10/07/16 21:07; Admin Dose 37.5 MLS/HR; Start 10/06/16 at 12:00 Phenylephrine HCl/ Dextrose (Brice-Syneph/D5W) 500 ml @ 75 mls/hr TITRATE IV ; Start 10/06/16 at 12:00 Calcium Carbonate (Ca Carbonate) 1,250 mg BID NGT Last administered on 20:07; Admin Dose 1,250 MG; Start 10/07/16 at 10:30 Aspirin (Aspirin) 81 mg DAILY NGT Last administered on 10/14/16 13:12; Admin Dose 81 MG; Start 10/08/16 at 09:00 Calcitriol (Calcitriol) 1 mcg DAILY IV Last administered on 10/15/16 08:27; Admin Dose 1 MCG; Start 10/08/16 at 14:00 Miscellaneous Information 1 ea NOTE XX ; Start 10/10/16 at 15:30 Glucose (Glutose) 15 gm Q15M PRN PO DECREASED GLUCOSE; Start 10/10/16 at 15:30 Glucose (Glutose) 22.5 gm Q15M PRN PO DECREASED GLUCOSE; Start 10/10/16 at 15: 30 Dextrose (D50w Syringe) 25 ml Q15M PRN IV DECREASED GLUCOSE; Start 10/10/16 at 15:30 Dextrose (D50w Syringe) 50 ml Q15M PRN IV DECREASED GLUCOSE; Start 10/10/16 at 15:30 Glucagon (Glucagen) 1 mg Q15M PRN IM DECREASED GLUCOSE; Start 10/10/16 at 15:30 Glucose (Glutose) 15 gm Q15M PRN BUCCAL DECREASED GLUCOSE; Start 10/10/16 at 15 :30 Diphenoxylate HCl/ Atropine (Lomotil Liquid Cup) 10 ml Q8H PRN NGT LOOSE STOOLS ; Start 10/10/16 at 18:00 Diagnostic Test (Pha) (Accu-Chek) 1 ea Q1H XX Last administered on 10/15/16 11: 06; Admin Dose 1 EA; Start 10/10/16 at 22:00 Dextrose (D50w Syringe) 25 ml Q15M PRN IV Till BS 80 mg/dL or above x2 Last administered on 10/13/16 20:29; Admin Dose 25 ML; Start 10/10/16 at 21:30 Dextrose 50 ml 50 ml Q15M PRN IV Till BS 80 mg/dL or above x2; Start 10/10/16 at 21:30 Linezolid (Zyvox 600mg/D5W (Pmx)) 300 ml @ 300 mls/hr Q12 IVPB ; Start 10/15/16 at 10:30 ANGELINA CASTREJON October 15, 2016 11:42
--- NOTE | 2016-10-15 12:06 | PN ---
DATE: 10/15/2016 SUBJECTIVE: The patient was extubated yesterday. He is sleeping, arousable, complaining of pain an d asking for pain medication. No fevers. VITAL SIGNS: Temperature 97.5, pulse 100, respirations 20, blood pressure 148/80, saturation 100 on room air. INDWELLINGS: Left chest Port-A-Cath, left upper extremity AV fistula. No CBC this morning. MICROBIOLOGY: Repeat blood cultures from 10/13/2016 remain negative. ANTIMICROBIALS: The patient is on Zyvox. PHYSICAL EXAMINATION: GENERAL: This is a well-developed, chronically ill-appearing, middle-aged white male who is awake, in no distress. HEENT: Head atraumatic, normocephalic. Sclerae anicteric. Buccal mucosa pale, dry. NECK: Supple, trachea midline. CHEST: Rise symmetrical. Breath sounds diminished to bases. HEART: S1, S2. ABDOMEN: Soft, bowel tones present. EXTREMITIES: With trace edema. ASSESSMENT: 1. Status post sepsis with acute respiratory failure secondary to pneumonia and fluid overload. 2. Vancomycin-resistant Enterococcus bacteremia as per cultures on October 04 with repeat blood cultu res negative, completed antibiotics. 3. End-stage renal disease, hemodialysis dependent. 4. Diabetes mellitus. 5. Chronic pain syndrome. 6. History of Clostridium difficile colitis with recent stool came back negative for Clostridium di fficile. PLAN: The patient remains stable post-extubation. Continue present care. Complete antibiotics. C ontinue anti-aspiration measures. Dictated By: BIJAN LONGO [employer] Conf#: [id number] DID#: [id number]
[2016-10-15] MEDS ORDERED: INSULIN DETEMIR [LEVEMIR] 3ML CART SC SCH (16:00)
[2016-10-15] MEDS: INSULIN ASPART [NOVOLOG] 3 ML PEN SC SCH ×2 (17:00→21:00)
--- NOTE | 2016-10-15 17:38 | CONS ---
Date/Time of Note Date/Time of Note DATE: 10/15/16 TIME: 17:33 Assessment/Plan Assessment/Plan Chief Complaint/Hosp Course 1. ESRD , he is on maintenance hemodialysis . He had dialysis yesterday. He is due for dialysis tomorrow and I will order dialysis. 2. Type I DM 3. h/o flash pulmonary edema, his last chest x-ray done today was clear without any edema. 4. HTN 5. CAD 6. respiratory failure , he is now extubated. 7. He failed swallowing study today... 8. ALOC , his mental status is improved. 10. He is growing VRE from 1of 2 blood cultures , on antibiotics 11. hypocalcemia , this is correcting , he is on calcium carbonate and IV calcitriol . Problems: Consultation Date/Type/Reason Admit Date/Time Sep 28, 2016 at 05:39 Initial Consult Date 09/28/16 Type of Consultation: Pulmonary/critical care Referring Provider: WILMER RODRIGUEZ MD 24 HR Interval Summary Free Text/Dictation He is in the ICU. He is awake and alert. He denies chest pain or shortness of breath. He says that he has pain in other places and is requesting more pain medicine. Exam/Review of Systems Vital Signs Vitals Vital Signs Date Time Temp Pulse Resp B/P Pulse Ox O2 Delivery O2 Flow Rate FiO2 10/15/16 16:00 98.6 89 10 141/79 98 Room Air 10/14/16 13:00 10/14/16 11:09 30 Intake and Output 10/14/16 10/14/16 10/15/16 15:00 23:00 07:00 Intake Total 495.5 ml 859.0 ml 14.0 ml Output Total 100 ml 3620 ml Balance 395.5 ml -2761.0 ml 14.0 ml Exam Constitutional: alert, oriented Respiratory: clear to auscultation, normal air movement Cardiovascular: regular rate and rhythm Gastrointestinal: soft Musculoskeletal: nl extremities to inspection Results Result Diagram: 10/14/16 0345 10/14/16 0345 Results 24 hrs Laboratory Tests Test 10/14/16 18:30 10/14/16 19:04 10/14/16 19:59 10/14/16 20:59 Bedside Glucose 141 138 121 146 Test 10/14/16 23:01 10/15/16 00:52 10/15/16 01:53 10/15/16 02:57 Bedside Glucose 154 91 141 150 Test 10/15/16 04:00 10/15/16 06:03 10/15/16 07:24 10/15/16 08:11 Bedside Glucose 125 114 130 114 Test 10/15/16 08:51 10/15/16 10:08 10/15/16 11:09 10/15/16 11:50 Bedside Glucose 128 163 152 143 Test 10/15/16 12:57 10/15/16 13:56 10/15/16 14:45 10/15/16 16:19 Bedside Glucose 140 117 108 95 Test 10/15/16 17:10 Bedside Glucose 94 Medications Medications Current Medications Ondansetron HCl (Zofran Inj) 4 mg Q6H PRN IV NAUSEA AND/OR VOMITING; Start at 06:00 Acetaminophen (Tylenol Liquid) 650 mg Q6H PRN PO PAIN LEVEL 1-3 OR FEVER Last administered on 09/30/16 08:32; Admin Dose 650 MG; Start 09/28/16 at 06:00 Hydromorphone HCl (Dilaudid) 0.5 mg Q4H PRN IV PAIN LEVEL 7-10 Last administered on 10/15/16 15:22; Admin Dose 0.5 MG; Start 09/28/16 at 06:00 Heparin Sodium (Porcine) (Heparin (5000 Units/0.5 ml)) 5,000 unit Q12 SC Last administered on 10/15/16 08:33; Admin Dose 5,000 UNIT; Start 09/28/16 at 09:00 Famotidine 20 mg 20 mg DAILY IV Last administered on 10/15/16 09:04; Admin Dose 20 MG; Start 09/28/16 at 09:00 Propofol 100 ml @ 2.31 mls/hr Q12H IV Last administered on 10/14/16 04:49; Admin Dose 20.79 MLS/HR; Start 09/28/16 at 11:30 Midazolam HCl 50 ml @ 1 mls/hr TITRATE IV Last administered on 10/06/16 22:25 ; Admin Dose 1 MLS/HR; Start 09/28/16 at 11:30 Fentanyl (Sublimaze) 100 ml @ 2.5 mls/hr TITRATE IV Last administered on 16:48; Admin Dose 2.5 MLS/HR; Start 09/29/16 at 09:00 Acetaminophen (Tylenol Liquid) 650 mg Q4H PRN NGT PAIN AND OR ELEVATED TEMP Last administered on 10/06/16 23:16; Admin Dose 650 MG; Start 09/30/16 at 08:30 Prasugrel (Effient) 10 mg DAILY PO Last administered on 10/14/16 09:39; Admin Dose 10 MG; Start 10/02/16 at 09:00 Carvedilol (Coreg) 12.5 mg BID NGT Last administered on 10/14/16 20:07; Admin Dose 12.5 MG; Start 10/02/16 at 21:00 Miscellaneous Information This patient osorio... PRN PRN XX WOUND CARE; Start 10/06 at 09:30 Norepinephrine 16 mg/Dextrose 500 ml @ 1.87 mls/hr TITRATE IV Last administered on 10/07/16 21:07; Admin Dose 37.5 MLS/HR; Start 10/06/16 at 12:00 Phenylephrine HCl/ Dextrose (Brice-Syneph/D5W) 500 ml @ 75 mls/hr TITRATE IV ; Start 10/06/16 at 12:00 Calcium Carbonate (Ca Carbonate) 1,250 mg BID NGT Last administered on 20:07; Admin Dose 1,250 MG; Start 10/07/16 at 10:30 Aspirin (Aspirin) 81 mg DAILY NGT Last administered on 10/14/16 13:12; Admin Dose 81 MG; Start 10/08/16 at 09:00 Calcitriol (Calcitriol) 1 mcg DAILY IV Last administered on 10/15/16 08:27; Admin Dose 1 MCG; Start 10/08/16 at 14:00 Miscellaneous Information 1 ea NOTE XX ; Start 10/10/16 at 15:30 Glucose (Glutose) 15 gm Q15M PRN PO DECREASED GLUCOSE; Start 10/10/16 at 15:30 Glucose (Glutose) 22.5 gm Q15M PRN PO DECREASED GLUCOSE; Start 10/10/16 at 15: 30 Dextrose (D50w Syringe) 25 ml Q15M PRN IV DECREASED GLUCOSE; Start 10/10/16 at 15:30 Dextrose (D50w Syringe) 50 ml Q15M PRN IV DECREASED GLUCOSE; Start 10/10/16 at 15:30 Glucagon (Glucagen) 1 mg Q15M PRN IM DECREASED GLUCOSE; Start 10/10/16 at 15:30 Glucose (Glutose) 15 gm Q15M PRN BUCCAL DECREASED GLUCOSE; Start 10/10/16 at 15 :30 Diphenoxylate HCl/ Atropine (Lomotil Liquid Cup) 10 ml Q8H PRN NGT LOOSE STOOLS ; Start 10/10/16 at 18:00 Dextrose (D50w Syringe) 25 ml Q15M PRN IV Till BS 80 mg/dL or above x2 Last administered on 10/13/16 20:29; Admin Dose 25 ML; Start 10/10/16 at 21:30 Dextrose 50 ml 50 ml Q15M PRN IV Till BS 80 mg/dL or above x2; Start 10/10/16 at 21:30 Linezolid (Zyvox 600mg/D5W (Pmx)) 300 ml @ 300 mls/hr Q12 IVPB ; Start 10/15/16 at 10:30 Insulin Detemir (Levemir) 24 unit DAILY@16 SC Last administered on 10/15/16 16: 32; Admin Dose 24 UNIT; Start 10/15/16 at 16:00 Insulin Aspart (Novolog Insulin Pen) NOVOLOG *MILD* ALGORI... Q4 SC ; Start 10/15 at 17:00 DONY HOWARD MD October 15, 2016 17:38
--- NOTE | 2016-10-15 18:17 | PN ---
Date/Time of Note Date/Time of Note DATE: 10/15/16 TIME: 18:16 Assessment/Plan Lines/Catheters IV Catheter Type (from Nrsg): PORT-A-CATH Foster in Place (from Nrsg): No Assessment/Plan Chief Complaint/Hosp Course IMPRESSION: Respiratory failure. RECOMMENDATIONS: Pt Extubated Will Hold off placement of a tracheostomy . Discussed with the nursing staff. Plan for surgery tomorrow All questions answered. Problems: Subjective 24 Hr Interval Summary Extubated Constitutional: improved Pain Control: mild Exam/Review of Systems Vital Signs Vitals Vital Signs Date Time Temp Pulse Resp B/P Pulse Ox O2 Delivery O2 Flow Rate FiO2 10/15/16 17:00 88 13 156/86 98 Room Air 10/15/16 16:00 98.6 10/14/16 13:00 10/14/16 11:09 30 Intake and Output 10/14/16 10/14/16 10/15/16 15:00 23:00 07:00 Intake Total 495.5 ml 859.0 ml 14.0 ml Output Total 100 ml 3620 ml Balance 395.5 ml -2761.0 ml 14.0 ml Exam ENMT: mucosa pink and moist, nl external ears & nose, nl lips & teeth, nl nasal mucosa & septum Neck: non-tender, supple Respiratory: clear to auscultation, normal air movement Cardiovascular: nl pulses, regular rate and rhythm Gastrointestinal: nl liver, spleen, non-tender, soft Results Result Diagram: 10/14/16 0345 10/14/16 0345 IRASEMA QUINN MD October 15, 2016 18:17
--- NOTE | 2016-10-15 18:25 | CONS ---
Date/Time of Note Date/Time of Note DATE: 10/15/16 TIME: 18:18 Assessment/Plan Assessment/Plan Problems: (1) Diabetes mellitus type 1 with complications Status: Chronic Comment: Glucose levels stable. Additional Assessment/Plan Start basal insulin with correction insulin while patient remains NPO. Discontinue insulin drip 1 hour after basal insulin given. Change accu-chek to q4 hours once drip is stopped. Once patient starts po intake I will change to basal and prandial regimen with accu-chek AC and HS. Once patient able to self manage will resume insulin pump therapy instead on MDI. Consultation Date/Type/Reason Admit Date/Time Sep 28, 2016 at 05:39 Initial Consult Date 10/01/16 Type of Consultation: Endocrine Reason for Consultation Diabetes Management Referring Provider: WILMER RODRIGUEZ MD 24 HR Interval Summary Subjective hx not possible: other Exam/Review of Systems Vital Signs Vitals Vital Signs Date Time Temp Pulse Resp B/P Pulse Ox O2 Delivery O2 Flow Rate FiO2 10/15/16 17:00 88 13 156/86 98 Room Air 10/15/16 16:00 98.6 10/14/16 13:00 10/14/16 11:09 30 Intake and Output 10/14/16 10/14/16 10/15/16 14:59 22:59 06:59 Intake Total 494.5 ml 860.0 ml 12.5 ml Output Total 100 ml 3620 ml Balance 394.5 ml -2760.0 ml 12.5 ml Exam Patient extubated yesterday. Clinically and hemodynamically stable. Results POC glucose reviewed Result Diagram: 10/14/16 0345 10/14/16 0345 Results 24 hrs Laboratory Tests Test 10/14/16 18:30 10/14/16 19:04 10/14/16 19:59 10/14/16 20:59 Bedside Glucose 141 138 121 146 Test 10/14/16 23:01 10/15/16 00:52 10/15/16 01:53 10/15/16 02:57 Bedside Glucose 154 91 141 150 Test 10/15/16 04:00 10/15/16 06:03 10/15/16 07:24 10/15/16 08:11 Bedside Glucose 125 114 130 114 Test 10/15/16 08:51 10/15/16 10:08 10/15/16 11:09 10/15/16 11:50 Bedside Glucose 128 163 152 143 Test 10/15/16 12:57 10/15/16 13:56 10/15/16 14:45 10/15/16 16:19 Bedside Glucose 140 117 108 95 Test 10/15/16 17:10 Bedside Glucose 94 Medications Medications Current Medications Ondansetron HCl (Zofran Inj) 4 mg Q6H PRN IV NAUSEA AND/OR VOMITING; Start at 06:00 Acetaminophen (Tylenol Liquid) 650 mg Q6H PRN PO PAIN LEVEL 1-3 OR FEVER Last administered on 09/30/16 08:32; Admin Dose 650 MG; Start 09/28/16 at 06:00 Hydromorphone HCl (Dilaudid) 0.5 mg Q4H PRN IV PAIN LEVEL 7-10 Last administered on 10/15/16 15:22; Admin Dose 0.5 MG; Start 09/28/16 at 06:00 Heparin Sodium (Porcine) (Heparin (5000 Units/0.5 ml)) 5,000 unit Q12 SC Last administered on 10/15/16 08:33; Admin Dose 5,000 UNIT; Start 09/28/16 at 09:00 Famotidine 20 mg 20 mg DAILY IV Last administered on 10/15/16 09:04; Admin Dose 20 MG; Start 09/28/16 at 09:00 Propofol 100 ml @ 2.31 mls/hr Q12H IV Last administered on 10/14/16 04:49; Admin Dose 20.79 MLS/HR; Start 09/28/16 at 11:30 Midazolam HCl 50 ml @ 1 mls/hr TITRATE IV Last administered on 10/06/16 22:25 ; Admin Dose 1 MLS/HR; Start 09/28/16 at 11:30 Fentanyl (Sublimaze) 100 ml @ 2.5 mls/hr TITRATE IV Last administered on 16:48; Admin Dose 2.5 MLS/HR; Start 09/29/16 at 09:00 Acetaminophen (Tylenol Liquid) 650 mg Q4H PRN NGT PAIN AND OR ELEVATED TEMP Last administered on 10/06/16 23:16; Admin Dose 650 MG; Start 09/30/16 at 08:30 Prasugrel (Effient) 10 mg DAILY PO Last administered on 10/14/16 09:39; Admin Dose 10 MG; Start 10/02/16 at 09:00 Carvedilol (Coreg) 12.5 mg BID NGT Last administered on 10/14/16 20:07; Admin Dose 12.5 MG; Start 10/02/16 at 21:00 Miscellaneous Information This patient osorio... PRN PRN XX WOUND CARE; Start 10/06 at 09:30 Norepinephrine 16 mg/Dextrose 500 ml @ 1.87 mls/hr TITRATE IV Last administered on 10/07/16 21:07; Admin Dose 37.5 MLS/HR; Start 10/06/16 at 12:00 Phenylephrine HCl/ Dextrose (Brice-Syneph/D5W) 500 ml @ 75 mls/hr TITRATE IV ; Start 10/06/16 at 12:00 Calcium Carbonate (Ca Carbonate) 1,250 mg BID NGT Last administered on 20:07; Admin Dose 1,250 MG; Start 10/07/16 at 10:30 Aspirin (Aspirin) 81 mg DAILY NGT Last administered on 10/14/16 13:12; Admin Dose 81 MG; Start 10/08/16 at 09:00 Miscellaneous Information 1 ea NOTE XX ; Start 10/10/16 at 15:30 Glucose (Glutose) 15 gm Q15M PRN PO DECREASED GLUCOSE; Start 10/10/16 at 15:30 Glucose (Glutose) 22.5 gm Q15M PRN PO DECREASED GLUCOSE; Start 10/10/16 at 15: 30 Dextrose (D50w Syringe) 25 ml Q15M PRN IV DECREASED GLUCOSE; Start 10/10/16 at 15:30 Dextrose (D50w Syringe) 50 ml Q15M PRN IV DECREASED GLUCOSE; Start 10/10/16 at 15:30 Glucagon (Glucagen) 1 mg Q15M PRN IM DECREASED GLUCOSE; Start 10/10/16 at 15:30 Glucose (Glutose) 15 gm Q15M PRN BUCCAL DECREASED GLUCOSE; Start 10/10/16 at 15 :30 Diphenoxylate HCl/ Atropine (Lomotil Liquid Cup) 10 ml Q8H PRN NGT LOOSE STOOLS ; Start 10/10/16 at 18:00 Dextrose (D50w Syringe) 25 ml Q15M PRN IV Till BS 80 mg/dL or above x2 Last administered on 10/13/16 20:29; Admin Dose 25 ML; Start 10/10/16 at 21:30 Dextrose 50 ml 50 ml Q15M PRN IV Till BS 80 mg/dL or above x2; Start 10/10/16 at 21:30 Linezolid (Zyvox 600mg/D5W (Pmx)) 300 ml @ 300 mls/hr Q12 IVPB ; Start 10/15/16 at 10:30 Insulin Detemir (Levemir) 24 unit DAILY@16 SC Last administered on 10/15/16 16: 32; Admin Dose 24 UNIT; Start 10/15/16 at 16:00 Insulin Aspart (Novolog Insulin Pen) NOVOLOG *MILD* ALGORI... Q4 SC ; Start 10/15 at 17:00 KALPANA MARTINEZ MD October 15, 2016 18:25
[2016-10-15] MEDS: DEXTROSE 50% 50 ML SYRINGE IV PRN (21:17)
[2016-10-16] VITALS (32 sets, daily range): BP systolic 111–182; BP diastolic 71–122; PULSE 80–119; RESP 12–22
[2016-10-16] MEDS: INSULIN ASPART [NOVOLOG] 3 ML PEN SC SCH ×6 (01:00→21:11)
[2016-10-16] MEDS: DEXTROSE 50% 50 ML SYRINGE IV PRN ×2 (01:31→05:46)
[2016-10-16] MEDS ORDERED: DEXTROSE 5% 1,000 ML IV SCH (02:00)
[2016-10-16] MEDS ORDERED: hydrALAzine 20 MG INJ IV PRN (02:00)
[2016-10-16] MEDS: HYDROmorphONE 1 MG/ML SYG IV PRN ×4 (03:55→21:35)
[2016-10-16 04:50] LABS: ADD SCAN DIFF NO
[2016-10-16 05:04] LABS: BASOPHIL # 0.1 10^3/ul (0.0-0.1); BASOPHILS % 2.3 % (0.0-2.0); EOSINOPHILS # 0.3 10^3/ul (0.0-0.5); EOSINOPHILS % 7.9 % (0.0-7.0); HEMATOCRIT 36.9 % (42.0-52.0); HEMOGLOBIN 11.3 g/dl (14.0-18.0); LYMPHOCYTES # 0.7 10^3/ul (0.8-2.9); MEAN CORPUSCULAR HEMOGLOBIN 28.6 pg (29.0-33.0); MEAN CORPUSCULAR HGB CONC 30.6 g/dl (32.0-37.0); MEAN CORPUSCULAR VOLUME 93.4 fl (82.0-101.0); MEAN PLATELET VOLUME 11.1 fl (7.4-10.4); MONOCYTE # 0.5 10^3/ul (0.3-0.9); MONOCYTES % 14.7 % (0.0-11.0); NEUTROPHILS % 55.8 % (39.0-77.0); PLATELET COUNT 247 10^3/UL (140-415); RED BLOOD COUNT 3.95 10^6/ul (4.70-6.10); RED CELL DISTRIBUTION WIDTH 16.3 % (11.5-14.5); WHITE BLOOD COUNT 3.5 10^3/ul (4.8-10.8)
[2016-10-16 05:11] LABS: ALBUMIN 3.5 g/dl (3.3-4.9); POTASSIUM 3.5 mmol/L (3.5-5.1)
[2016-10-16 05:14] LABS: BILIRUBIN,INDIRECT 0.1 mg/dl (0-1.1); BILIRUBIN,TOTAL 0.1 mg/dl (0.2-1.3); CALCIUM 9.1 mg/dl (8.4-10.2); CREATININE 8.29 mg/dl (0.61-1.24)
--- NOTE | 2016-10-16 08:05 | PN ---
Date/Time of Note Date/Time of Note DATE: 10/16/16 TIME: 08:03 Assessment/Plan Lines/Catheters IV Catheter Type (from Nrsg): Laci cath Foster in Place (from Nrsg): No Assessment/Plan Chief Complaint/Hosp Course IMPRESSION: Respiratory failure. RECOMMENDATIONS: Pt Extubated Will Hold off placement of a tracheostomy . Discussed with the nursing staff. Plan for surgery tomorrow All questions answered. Problems: Subjective 24 Hr Interval Summary Constitutional: improved Pain Control: mild Exam/Review of Systems Vital Signs Vitals Vital Signs Date Time Temp Pulse Resp B/P Pulse Ox O2 Delivery O2 Flow Rate FiO2 10/16/16 07:00 91 12 163/102 100 Room Air 10/16/16 04:00 98.3 10/14/16 13:00 10/14/16 11:09 30 Intake and Output 10/15/16 10/15/16 10/16/16 15:00 23:00 07:00 Intake Total 309.5 ml 300.5 ml 200 ml Output Total 20 ml 0 ml 20 ml Balance 289.5 ml 300.5 ml 180 ml Exam ENMT: mucosa pink and moist, nl external ears & nose, nl lips & teeth, nl nasal mucosa & septum Neck: non-tender, supple Respiratory: clear to auscultation, normal air movement Cardiovascular: nl pulses, regular rate and rhythm Results Result Diagram: 10/16/1639910/16/16399 IRASEMA QUINN MD October 16, 2016 08:04
--- NOTE | 2016-10-16 08:09 | CONS ---
Date/Time of Note Date/Time of Note DATE: 10/16/16 TIME: 08:06 Assessment/Plan Assessment/Plan Problems: (1) End stage renal failure on dialysis Status: Chronic Comment: As per nephrology. He needs to continue be dialyzed in a judicious fashion. (2) PAD (peripheral artery disease) Status: Chronic Comment: Noted not active at present (3) HTN (hypertension) Status: Chronic Comment: Controlled Qualifiers: Hypertension type: essential hypertension Qualified Code: I10 - Essential hypertension (4) Diabetes mellitus type 1, controlled, with complications Status: Chronic Comment: He came off the insulin drip and is n.p.o. He was not receiving any IV fluids. Dosage of Levemir was given to him actually proved to be slightly strong and he had hypoglycemia. Nursing staff overnight when this happened placed on insulin drip but were not following his sugars as I had verbally requested. As such she was hypo-again this morning. Have adjusted upward on the dextrose drip will at the Levemir were off and go to a lower dose every 12 hours regimen which would allow us a little bit more flexibility control. From my standpoint he can be transferred today to non-intensive care unit bed effective at noontime Consultation Date/Type/Reason Admit Date/Time Sep 28, 2016 at 05:39 Initial Consult Date 09/28/16 Type of Consultation: Endocrine Reason for Consultation .Diabetes mellitus type 1; respiratory failure; end-stage renal disease; diabetic retinopathy with blindness Referring Provider: WILMER RODRIGUEZ MD 24 HR Interval Summary Free Text/Dictation Patient is extubated and modestly verbal. He is demonstrating some evidence of confusion although he had hypoglycemia overnight Exam/Review of Systems Vital Signs Vitals Vital Signs Date Time Temp Pulse Resp B/P Pulse Ox O2 Delivery O2 Flow Rate FiO2 10/16/16 07:00 91 12 163/102 100 Room Air 10/16/16 04:00 98.3 10/14/16 13:00 10/14/16 11:09 30 Intake and Output 10/15/16 10/15/16 10/16/16 15:00 23:00 07:00 Intake Total 309.5 ml 300.5 ml 200 ml Output Total 20 ml 0 ml 20 ml Balance 289.5 ml 300.5 ml 180 ml Exam Constitutional: alert Neck: non-tender, supple Respiratory: normal air movement Results Result Diagram: 10/16/16 0400 10/16/16 0400 Results 24 hrs Laboratory Tests Test 10/15/16 08:11 10/15/16 08:51 10/15/16 10:08 10/15/16 11:09 Bedside Glucose 114 128 163 152 Test 10/15/16 11:50 10/15/16 12:57 10/15/16 13:56 10/15/16 14:45 Bedside Glucose 143 140 117 108 Test 10/15/16 16:19 10/15/16 17:10 10/15/16 20:59 10/15/16 21:41 Bedside Glucose 95 94 49 *L 136 Test 10/15/16 22:33 10/16/16 01:27 10/16/16 01:50 10/16/16 04:00 Bedside Glucose 129 38 *L 134 White Blood Count 3.5 L Red Blood Count 3.95 L Hemoglobin 11.3 L Hematocrit 36.9 L Mean Corpuscular Volume 93.4 Mean Corpuscular Hemoglobin 28.6 L Mean Corpuscular Hemoglobin Concent 30.6 L Red Cell Distribution Width 16.3 H Platelet Count 247 Mean Platelet Volume 11.1 H Neutrophils % 55.8 Lymphocytes % 19.0 Monocytes % 14.7 H Eosinophils % 7.9 H Basophils % 2.3 H Nucleated Red Blood Cells % 0.0 Neutrophils # 2.0 Lymphocytes # 0.7 L Monocytes # 0.5 Eosinophils # 0.3 Basophils # 0.1 Nucleated Red Blood Cells # 0.0 Sodium Level 141 Potassium Level 3.5 Chloride Level 98 Carbon Dioxide Level 24 Anion Gap 23 H Blood Urea Nitrogen 46 H Creatinine 8.29 H Glucose Level 68 L Calcium Level 9.1 Total Bilirubin 0.1 L Direct Bilirubin 0.00 Indirect Bilirubin 0.1 Aspartate Amino Transf (AST/SGOT) 41 Alanine Aminotransferase (ALT/SGPT) 126 H Alkaline Phosphatase 244 H Total Protein 7.0 Albumin 3.5 Globulin 3.50 H Albumin/Globulin Ratio 1.00 Test 10/16/16 05:37 10/16/16 05:40 10/16/16 06:07 10/16/16 06:22 Bedside Glucose 44 *L 45 *L 98 119 Test 10/16/16 06:37 10/16/16 06:57 Bedside Glucose 113 118 Medications Medications Current Medications Ondansetron HCl (Zofran Inj) 4 mg Q6H PRN IV NAUSEA AND/OR VOMITING; Start at 06:00 Acetaminophen (Tylenol Liquid) 650 mg Q6H PRN PO PAIN LEVEL 1-3 OR FEVER Last administered on 09/30/16 08:32; Admin Dose 650 MG; Start 09/28/16 at 06:00 Hydromorphone HCl (Dilaudid) 0.5 mg Q4H PRN IV PAIN LEVEL 7-10 Last administered on 10/16/16 07:44; Admin Dose 0.5 MG; Start 09/28/16 at 06:00 Heparin Sodium (Porcine) (Heparin (5000 Units/0.5 ml)) 5,000 unit Q12 SC Last administered on 10/15/16 20:41; Admin Dose 5,000 UNIT; Start 09/28/16 at 09:00 Famotidine (Pepcid Iv) 20 mg DAILY IV Last administered on 10/15/16 09:04; Admin Dose 20 MG; Start 09/28/16 at 09:00 Acetaminophen (Tylenol Liquid) 650 mg Q4H PRN NGT PAIN AND OR ELEVATED TEMP Last administered on 10/06/16 23:16; Admin Dose 650 MG; Start 09/30/16 at 08:30 Prasugrel (Effient) 10 mg DAILY PO Last administered on 10/14/16 09:39; Admin Dose 10 MG; Start 10/02/16 at 09:00 Carvedilol (Coreg) 12.5 mg BID NGT Last administered on 10/14/16 20:07; Admin Dose 12.5 MG; Start 10/02/16 at 21:00 Miscellaneous Information ([facility]) This patient osorio... PRN PRN XX WOUND CARE; Start 10/06/16 at 09:30 Calcium Carbonate (Ca Carbonate) 1,250 mg BID NGT Last administered on 20:07; Admin Dose 1,250 MG; Start 10/07/16 at 10:30 Aspirin (Aspirin) 81 mg DAILY NGT Last administered on 10/14/16 13:12; Admin Dose 81 MG; Start 10/08/16 at 09:00 Miscellaneous Information 1 ea NOTE XX ; Start 10/10/16 at 15:30 Glucose (Glutose) 15 gm Q15M PRN PO DECREASED GLUCOSE; Start 10/10/16 at 15:30 Glucose (Glutose) 22.5 gm Q15M PRN PO DECREASED GLUCOSE; Start 10/10/16 at 15: 30 Dextrose (D50w Syringe) 25 ml Q15M PRN IV DECREASED GLUCOSE; Start 10/10/16 at 15:30 Dextrose (D50w Syringe) 50 ml Q15M PRN IV DECREASED GLUCOSE Last administered on 10/16/16 05:46; Admin Dose 50 ML; Start 10/10/16 at 15:30 Glucagon (Glucagen) 1 mg Q15M PRN IM DECREASED GLUCOSE; Start 10/10/16 at 15:30 Glucose (Glutose) 15 gm Q15M PRN BUCCAL DECREASED GLUCOSE; Start 10/10/16 at 15 :30 Diphenoxylate HCl/ Atropine (Lomotil Liquid Cup) 10 ml Q8H PRN NGT LOOSE STOOLS ; Start 10/10/16 at 18:00 Dextrose (D50w Syringe) 25 ml Q15M PRN IV Till BS 80 mg/dL or above x2 Last administered on 10/13/16 20:29; Admin Dose 25 ML; Start 10/10/16 at 21:30 Dextrose 50 ml 50 ml Q15M PRN IV Till BS 80 mg/dL or above x2; Start 10/10/16 at 21:30 Linezolid (Zyvox 600mg/D5W (Pmx)) 300 ml @ 300 mls/hr Q12 IVPB Last administered on 10/15/16 20:39; Admin Dose 300 MLS/HR; Start 10/15/16 at 10:30 Insulin Detemir (Levemir) 24 unit DAILY@16 SC Last administered on 10/15/16 16: 32; Admin Dose 24 UNIT; Start 10/15/16 at 16:00; Stop 10/16/16 at 16:00 Insulin Aspart (Novolog Insulin Pen) NOVOLOG *MILD* ALGORI... Q4 SC ; Start 10/15 at 17:00 Hydralazine HCl 20 mg 20 mg Q6H PRN IV ELEVATED SYSTOLIC BP; Start 10/16/16 at 02:00 Dextrose (D5W) 1,000 ml @ 75 mls/hr [id number] IV Last administered on 5/4/17at 02:17; Admin Dose 50 MLS/HR; Start 10/16/16 at 02:00; Stop 10/16/16 at 16:00 DEBBY BURT MD October 16, 2016 08:09
[2016-10-16] MEDS: CA CARBONATE (250 MG/ML) 5ML CUP NGT SCH ×2 (08:11→21:07)
[2016-10-16] MEDS: PRASUGREL HYDROCHLORIDE 10 MG TABLET PO SCH (08:11)
[2016-10-16] MEDS: ASPIRIN 81 MG TAB NGT SCH (08:11)
[2016-10-16] MEDS: LINEZOLID 600 MG/D5W (PMX) 300 ML IVPB SCH ×2 (08:15→20:59)
[2016-10-16] MEDS: FAMOTIDINE 20 MG INJ IV SCH (08:15)
[2016-10-16] MEDS: HEPARIN 5,000 UNIT/0.5 ML VIAL SC SCH ×2 (08:16→21:11)
--- NOTE | 2016-10-16 09:26 | CONS ---
Date/Time of Note Date/Time of Note DATE: 10/16/16 TIME: 09:22 Assessment/Plan Assessment/Plan Chief Complaint/Hosp Course 1. ESRD , he is on maintenance hemodialysis . He is starting a hemodialysis treatment now . 2. Type I DM 3. h/o flash pulmonary edema, his last chest x-ray done today was clear without any edema. 4. HTN 5. CAD 6. respiratory failure , he is now extubated. 7. He failed swallowing study today... 8. ALOC , his mental status is improved. 10. He is growing VRE from 1of 2 blood cultures , on antibiotics 11. hypocalcemia , this is correcting , he is on calcium carbonate and IV calcitriol . Problems: Consultation Date/Type/Reason Admit Date/Time Sep 28, 2016 at 05:39 Initial Consult Date 09/28/16 Type of Consultation: Endocrine Referring Provider: WILMER RODRIGUEZ MD 24 HR Interval Summary Free Text/Dictation He is in the ICU awake and responsive . He is starting a hemodialysis treatment . Constitutional: improved Exam/Review of Systems Vital Signs Vitals Vital Signs Date Time Temp Pulse Resp B/P Pulse Ox O2 Delivery O2 Flow Rate FiO2 10/16/16 09:00 88 13 182/97 100 Room Air 10/16/16 04:00 98.3 10/14/16 13:00 10/14/16 11:09 30 Intake and Output 10/15/16 10/15/16 10/16/16 15:00 23:00 07:00 Intake Total 309.5 ml 300.5 ml 200 ml Output Total 20 ml 0 ml 20 ml Balance 289.5 ml 300.5 ml 180 ml Exam Constitutional: alert, oriented Respiratory: clear to auscultation, normal air movement Cardiovascular: regular rate and rhythm Gastrointestinal: soft Musculoskeletal: nl extremities to inspection Results Result Diagram: 10/16/16 0400 10/16/16 0400 Results 24 hrs Laboratory Tests Test 10/15/16 10:08 10/15/16 11:09 10/15/16 11:50 10/15/16 12:57 Bedside Glucose 163 152 143 140 Test 10/15/16 13:56 10/15/16 14:45 10/15/16 16:19 10/15/16 17:10 Bedside Glucose 117 108 95 94 Test 10/15/16 20:59 10/15/16 21:41 10/15/16 22:33 10/16/16 01:27 Bedside Glucose 49 *L 136 129 38 *L Test 10/16/16 01:50 10/16/16 04:00 10/16/16 05:37 10/16/16 05:40 Bedside Glucose 134 44 *L 45 *L White Blood Count 3.5 L Red Blood Count 3.95 L Hemoglobin 11.3 L Hematocrit 36.9 L Mean Corpuscular Volume 93.4 Mean Corpuscular Hemoglobin 28.6 L Mean Corpuscular Hemoglobin Concent 30.6 L Red Cell Distribution Width 16.3 H Platelet Count 247 Mean Platelet Volume 11.1 H Neutrophils % 55.8 Lymphocytes % 19.0 Monocytes % 14.7 H Eosinophils % 7.9 H Basophils % 2.3 H Nucleated Red Blood Cells % 0.0 Neutrophils # 2.0 Lymphocytes # 0.7 L Monocytes # 0.5 Eosinophils # 0.3 Basophils # 0.1 Nucleated Red Blood Cells # 0.0 Sodium Level 141 Potassium Level 3.5 Chloride Level 98 Carbon Dioxide Level 24 Anion Gap 23 H Blood Urea Nitrogen 46 H Creatinine 8.29 H Glucose Level 68 L Calcium Level 9.1 Total Bilirubin 0.1 L Direct Bilirubin 0.00 Indirect Bilirubin 0.1 Aspartate Amino Transf (AST/SGOT) 41 Alanine Aminotransferase (ALT/SGPT) 126 H Alkaline Phosphatase 244 H Total Protein 7.0 Albumin 3.5 Globulin 3.50 H Albumin/Globulin Ratio 1.00 Test 10/16/16 06:07 10/16/16 06:22 10/16/16 06:37 10/16/16 06:57 Bedside Glucose 98 119 113 118 Test 10/16/16 08:18 Bedside Glucose 92 Medications Medications Current Medications Ondansetron HCl (Zofran Inj) 4 mg Q6H PRN IV NAUSEA AND/OR VOMITING; Start at 06:00 Acetaminophen (Tylenol Liquid) 650 mg Q6H PRN PO PAIN LEVEL 1-3 OR FEVER Last administered on 09/30/16 08:32; Admin Dose 650 MG; Start 09/28/16 at 06:00 Hydromorphone HCl (Dilaudid) 0.5 mg Q4H PRN IV PAIN LEVEL 7-10 Last administered on 10/16/16 07:44; Admin Dose 0.5 MG; Start 09/28/16 at 06:00 Heparin Sodium (Porcine) (Heparin (5000 Units/0.5 ml)) 5,000 unit Q12 SC Last administered on 10/16/16 08:16; Admin Dose 5,000 UNIT; Start 09/28/16 at 09:00 Famotidine (Pepcid Iv) 20 mg DAILY IV Last administered on 10/16/16 08:15; Admin Dose 20 MG; Start 09/28/16 at 09:00 Acetaminophen (Tylenol Liquid) 650 mg Q4H PRN NGT PAIN AND OR ELEVATED TEMP Last administered on 10/06/16 23:16; Admin Dose 650 MG; Start 09/30/16 at 08:30 Prasugrel (Effient) 10 mg DAILY PO Last administered on 10/14/16 09:39; Admin Dose 10 MG; Start 10/02/16 at 09:00 Carvedilol (Coreg) 12.5 mg BID NGT Last administered on 10/14/16 20:07; Admin Dose 12.5 MG; Start 10/02/16 at 21:00 Miscellaneous Information (Pending [facility] Order For Wound Care) This patient osorio... PRN PRN XX WOUND CARE; Start 10/06/16 at 09:30 Calcium Carbonate (Ca Carbonate) 1,250 mg BID NGT Last administered on 20:07; Admin Dose 1,250 MG; Start 10/07/16 at 10:30 Aspirin (Aspirin) 81 mg DAILY NGT Last administered on 10/14/16 13:12; Admin Dose 81 MG; Start 10/08/16 at 09:00 Miscellaneous Information 1 ea NOTE XX ; Start 10/10/16 at 15:30 Glucose (Glutose) 15 gm Q15M PRN PO DECREASED GLUCOSE; Start 10/10/16 at 15:30 Glucose (Glutose) 22.5 gm Q15M PRN PO DECREASED GLUCOSE; Start 10/10/16 at 15: 30 Dextrose (D50w Syringe) 25 ml Q15M PRN IV DECREASED GLUCOSE; Start 10/10/16 at 15:30 Dextrose (D50w Syringe) 50 ml Q15M PRN IV DECREASED GLUCOSE Last administered on 10/16/16 05:46; Admin Dose 50 ML; Start 10/10/16 at 15:30 Glucagon (Glucagen) 1 mg Q15M PRN IM DECREASED GLUCOSE; Start 10/10/16 at 15:30 Glucose (Glutose) 15 gm Q15M PRN BUCCAL DECREASED GLUCOSE; Start 10/10/16 at 15 :30 Diphenoxylate HCl/ Atropine (Lomotil Liquid Cup) 10 ml Q8H PRN NGT LOOSE STOOLS ; Start 10/10/16 at 18:00 Dextrose (D50w Syringe) 25 ml Q15M PRN IV Till BS 80 mg/dL or above x2 Last administered on 10/13/16 20:29; Admin Dose 25 ML; Start 10/10/16 at 21:30 Dextrose 50 ml 50 ml Q15M PRN IV Till BS 80 mg/dL or above x2; Start 10/10/16 at 21:30 Linezolid (Zyvox 600mg/D5W (Pmx)) 300 ml @ 300 mls/hr Q12 IVPB Last administered on 10/16/16 08:15; Admin Dose 300 MLS/HR; Start 10/15/16 at 10:30 Insulin Aspart (Novolog Insulin Pen) NOVOLOG *MILD* ALGORI... Q4 SC ; Start 10/15 at 17:00 Hydralazine HCl 20 mg 20 mg Q6H PRN IV ELEVATED SYSTOLIC BP; Start 10/16/16 at 02:00 Dextrose (D5W) 1,000 ml @ 75 mls/hr [id number] IV Last administered on 10/16/16 02:17; Admin Dose 50 MLS/HR; Start 10/16/16 at 02:00; Stop 10/16/16 at 16:00 Insulin Detemir (Levemir) 10 unit Q12 SC ; Start 10/16/16 at 21:00 Diphenhydramine HCl (Benadryl) 50 mg ONCE ONCE IV Last administered on 09:19; Admin Dose 50 MG; Start 10/16/16 at 09:30; Stop 10/16/16 at 09:31 DONY HOWARD MD October 16, 2016 09:26
[2016-10-16] MEDS ORDERED: DIPHENHYDRAMINE 50 MG INJ IV ONE (09:30)
--- NOTE | 2016-10-16 10:12 | CONS ---
Date/Time of Note Date/Time of Note DATE: 10/16/16 TIME: 10:10 Assessment/Plan Assessment/Plan Additional Assessment/Plan Assessment recommendations; 1. Patient admitted with acute pulmonary edema status post extubation all with markedly improved overall clinical status. 2. End-stage renal disease, on hemodialysis. 3. VRE bacteremia, currently on Zyvox. 4. Patient is legally blind. Continue current treatment. Patient can be transferred to medical floor. We will sign off. Please reconsult if needed. Thanks for the referral. Consultation Date/Type/Reason Admit Date/Time Sep 28, 2016 at 05:39 Initial Consult Date 09/28/16 Type of Consultation: Pulmonary/critical care Referring Provider: WILMER RODRIGUEZ MD 24 HR Interval Summary Free Text/Dictation Patient condition is stable. Remains completely awake alert. And getting hemodialysis at bedside. General exam; middle-aged male, awake currently in no distress. Able to talk. Exam/Review of Systems Vital Signs Vitals Vital Signs Date Time Temp Pulse Resp B/P Pulse Ox O2 Delivery O2 Flow Rate FiO2 10/16/16 09:00 88 13 182/97 100 Room Air 10/16/16 04:00 98.3 10/14/16 13:00 10/14/16 11:09 30 Intake and Output 10/15/16 10/15/16 10/16/16 15:00 23:00 07:00 Intake Total 309.5 ml 300.5 ml 200 ml Output Total 20 ml 0 ml 20 ml Balance 289.5 ml 300.5 ml 180 ml Exam HEENT exam; supple neck, no JVD. No lymphadenopathy. Midline trachea. No thyromegaly. Patient has fair dentition. Chest examination; clear to auscultation. S1-S2 audible, no murmurs. Regular rhythm. Abdomen examination; normal distention. No organomegaly. Bowel sounds audible. Extremity examination; no peripheral edema. FILAMENT TESTER examination; no focal deficit. Results Result Diagram: 10/16/16 0400 10/16/16 0400 Results 24 hrs Laboratory Tests Test 10/15/16 11:09 10/15/16 11:50 10/15/16 12:57 10/15/16 13:56 Bedside Glucose 152 143 140 117 Test 10/15/16 14:45 10/15/16 16:19 10/15/16 17:10 10/15/16 20:59 Bedside Glucose 108 95 94 49 *L Test 10/15/16 21:41 10/15/16 22:33 10/16/16 01:27 10/16/16 01:50 Bedside Glucose 136 129 38 *L 134 Test 10/16/16 04:00 10/16/16 05:37 10/16/16 05:40 10/16/16 06:07 White Blood Count 3.5 L Red Blood Count 3.95 L Hemoglobin 11.3 L Hematocrit 36.9 L Mean Corpuscular Volume 93.4 Mean Corpuscular Hemoglobin 28.6 L Mean Corpuscular Hemoglobin Concent 30.6 L Red Cell Distribution Width 16.3 H Platelet Count 247 Mean Platelet Volume 11.1 H Neutrophils % 55.8 Lymphocytes % 19.0 Monocytes % 14.7 H Eosinophils % 7.9 H Basophils % 2.3 H Nucleated Red Blood Cells % 0.0 Neutrophils # 2.0 Lymphocytes # 0.7 L Monocytes # 0.5 Eosinophils # 0.3 Basophils # 0.1 Nucleated Red Blood Cells # 0.0 Sodium Level 141 Potassium Level 3.5 Chloride Level 98 Carbon Dioxide Level 24 Anion Gap 23 H Blood Urea Nitrogen 46 H Creatinine 8.29 H Glucose Level 68 L Calcium Level 9.1 Total Bilirubin 0.1 L Direct Bilirubin 0.00 Indirect Bilirubin 0.1 Aspartate Amino Transf (AST/SGOT) 41 Alanine Aminotransferase (ALT/SGPT) 126 H Alkaline Phosphatase 244 H Total Protein 7.0 Albumin 3.5 Globulin 3.50 H Albumin/Globulin Ratio 1.00 Bedside Glucose 44 *L 45 *L 98 Test 10/16/16 06:22 10/16/16 06:37 10/16/16 06:57 10/16/16 08:18 Bedside Glucose 119 113 118 92 Test 10/16/16 09:05 Bedside Glucose 121 Medications Medications Current Medications Ondansetron HCl (Zofran Inj) 4 mg Q6H PRN IV NAUSEA AND/OR VOMITING; Start at 06:00 Acetaminophen (Tylenol Liquid) 650 mg Q6H PRN PO PAIN LEVEL 1-3 OR FEVER Last administered on 09/30/16t 08:32; Admin Dose 650 MG; Start 09/28/16 at 06:00 Hydromorphone HCl (Dilaudid) 0.5 mg Q4H PRN IV PAIN LEVEL 7-10 Last administered on 10/16/16 07:44; Admin Dose 0.5 MG; Start 09/28/16 at 06:00 Heparin Sodium (Porcine) (Heparin (5000 Units/0.5 ml)) 5,000 unit Q12 SC Last administered on 10/16/16 08:16; Admin Dose 5,000 UNIT; Start 09/28/16 at 09:00 Famotidine (Pepcid Iv) 20 mg DAILY IV Last administered on 10/16/16 08:15; Admin Dose 20 MG; Start 09/28/16 at 09:00 Acetaminophen (Tylenol Liquid) 650 mg Q4H PRN NGT PAIN AND OR ELEVATED TEMP Last administered on 10/06/16 23:16; Admin Dose 650 MG; Start 09/30/16 at 08:30 Prasugrel (Effient) 10 mg DAILY PO Last administered on 10/14/16 09:39; Admin Dose 10 MG; Start 10/02/16 at 09:00 Carvedilol (Coreg) 12.5 mg BID NGT Last administered on 10/14/16 20:07; Admin Dose 12.5 MG; Start 10/02/16 at 21:00 Miscellaneous Information (Pending [facility] Order For Wound Care) This patient osorio... PRN PRN XX WOUND CARE; Start 10/06/16 at 09:30 Calcium Carbonate (Ca Carbonate) 1,250 mg BID NGT Last administered on 20:07; Admin Dose 1,250 MG; Start 10/07/16 at 10:30 Aspirin (Aspirin) 81 mg DAILY NGT Last administered on 10/14/16 13:12; Admin Dose 81 MG; Start 10/08/16 at 09:00 Miscellaneous Information 1 ea NOTE XX ; Start 10/10/16 at 15:30 Glucose (Glutose) 15 gm Q15M PRN PO DECREASED GLUCOSE; Start 10/10/16 at 15:30 Glucose (Glutose) 22.5 gm Q15M PRN PO DECREASED GLUCOSE; Start 10/10/16 at 15: 30 Dextrose (D50w Syringe) 25 ml Q15M PRN IV DECREASED GLUCOSE; Start 10/10/16 at 15:30 Dextrose (D50w Syringe) 50 ml Q15M PRN IV DECREASED GLUCOSE Last administered on 10/16/16 05:46; Admin Dose 50 ML; Start 10/10/16 at 15:30 Glucagon (Glucagen) 1 mg Q15M PRN IM DECREASED GLUCOSE; Start 10/10/16 at 15:30 Glucose (Glutose) 15 gm Q15M PRN BUCCAL DECREASED GLUCOSE; Start 10/10/16 at 15 :30 Diphenoxylate HCl/ Atropine (Lomotil Liquid Cup) 10 ml Q8H PRN NGT LOOSE STOOLS ; Start 10/10/16 at 18:00 Dextrose (D50w Syringe) 25 ml Q15M PRN IV Till BS 80 mg/dL or above x2 Last administered on 10/13/16 20:29; Admin Dose 25 ML; Start 10/10/16 at 21:30 Dextrose 50 ml 50 ml Q15M PRN IV Till BS 80 mg/dL or above x2; Start 10/10/16 at 21:30 Linezolid (Zyvox 600mg/D5W (Pmx)) 300 ml @ 300 mls/hr Q12 IVPB Last administered on 10/16/16 08:15; Admin Dose 300 MLS/HR; Start 10/15/16 at 10:30 Insulin Aspart (Novolog Insulin Pen) NOVOLOG *MILD* ALGORI... Q4 SC ; Start 10/15 at 17:00 Hydralazine HCl 20 mg 20 mg Q6H PRN IV ELEVATED SYSTOLIC BP; Start 10/16/16 at 02:00 Dextrose (D5W) 1,000 ml @ 75 mls/hr [id number] IV Last administered on 10/16/16 02:17; Admin Dose 50 MLS/HR; Start 10/16/16 at 02:00; Stop 10/16/16 at 16:00 Insulin Detemir (Levemir) 10 unit Q12 SC ; Start 10/16/16 at 21:00 ELTON FELIX October 16, 2016 10:11
--- NOTE | 2016-10-16 12:06 | PN ---
DATE: 10/16/2016 INFECTIOUS DISEASE PROGRESS NOTE SUBJECTIVE: No acute changes. The patient is in hemodialysis, lethargic, arousable, in no distress . No fevers. LABORATORY DATA: WBC 3.5, platelets 247. INDWELLINGS: Left chest Port-A-Cath, left upper extremity AV fistula. MICROBIOLOGY: Blood cultures since October 13 remain negative. ANTIMICROBIALS: The patient is on Zyvox. PHYSICAL EXAMINATION: GENERAL: This is a chronically ill-appearing, middle-aged man who is in no distress. HEENT: Head atraumatic, normocephalic. Sclerae anicteric. Buccal mucosa dry. NECK: Supple. CHEST: Rise symmetrical. Breath sounds diminished to bases. HEART: S1, S2. ABDOMEN: Soft, bowel sounds present. EXTREMITIES: With trace edema. ASSESSMENT: 1. Vancomycin-resistant enterococcus bacteremia, likely secondary to line that was discontinued. R epeat blood cultures negative. 2. Status post respiratory failure secondary to fluid overload and possible aspiration event. 3. End-stage renal disease, hemodialysis dependent. 4. Diabetes. 5. History of Clostridium difficile colitis, stool cultures came back negative. PLAN: The patient remains stable. Repeat blood cultures have been negative. He is completing anti biotics with Zyvox for 4 more days pending repeat swallow evaluation. Dictated By: [facility] BUSINESS MANAGER for [facility] Conf#: [id number] DID#: [id number]
[2016-10-16] MEDS: CALCITRIOL 1 MCG INJ IV SCH (14:24)
--- NOTE | 2016-10-16 14:58 | PN ---
Date/Time of Note Date/Time of Note DATE: 10/16/16 TIME: 14:55 Assessment/Plan VTE Prophylaxis VTE Prophylaxis Intervention: SCD's Lines/Catheters IV Catheter Type (from [facility] perma cath Urinary Cath still in place: No Assessment/Plan Chief Complaint/Hosp Course ASSESSMENT AND PLAN: - Acute respiratory failure, requiring oral intubation and ventilatory support secondary to pulmonary edema, resolved. Dr. Nunez is following in pulmonology consultation. - S/p septic shock. - VRE bacteremia, continue Zyvox, continue antibiotics per ID. - End-stage renal disease, hemodialysis dependent. Dr. Hubbard is following the patient in nephrology consultation. Continue the hemodialysis per nephrology. - Diabetes mellitus type 1. Dr. Garay is following in endocrinology consultation. - Peripheral arterial disease, status post vascular intervention. Continue heparin. - Anemia of chronic disease. Continue Epogen. - Coronary artery disease. Dr. Stephen is following in cardiology consultation. - Possible healthcare acquired pneumonia. Continue antibiotics per ID. Dr. Allison is following in ID consultation. - Transaminitis most likely to shock liver, resolving. Dr. Britt is following in gastroenterology consultation Continue heparin for deep venous thrombosis prophylaxis and Pepcid for peptic ulcer disease prophylaxis. Further recommendations based on clinical course. Plan of care discussed with Dr. Rosales. Problems: Subjective 24 Hr Interval Summary Free Text/Dictation Patient passed swallow eval will be started on 1800 ADA soft diet, comfortable and supplemental oxygen, patient with hypoglycemia overnight, continue to monitor in ICU, breathing comfortably on room air. Exam/Review of Systems Vital Signs Vitals Vital Signs Date Time Temp Pulse Resp B/P Pulse Ox O2 Delivery O2 Flow Rate FiO2 10/16/16 14:00 100 17 138/86 99 Room Air 10/16/16 12:00 98.2 10/14/16 13:00 10/14/16 11:09 30 Intake and Output 10/15/16 10/15/16 10/16/16 15:00 23:00 07:00 Intake Total 309.5 ml 300.5 ml 275 ml Output Total 20 ml 0 ml 20 ml Balance 289.5 ml 300.5 ml 255 ml Exam GENERAL: Well-developed, well-nourished gentleman, lethargic but arousable. HEENT: Head is atraumatic, normocephalic. Patient has a right eye prosthesis. Left eye pupil is equal, round, sluggishly reactive to light and accommodation. NECK: Supple, no cervical lymphadenopathy, no thyromegaly. CHEST: Lung sounds diminished at the bases. Scattered rhonchi bilaterally. Patient has a left chest Port-A-Cath. CARDIOVASCULAR: Normal S1, S2. No murmurs, gallops, clicks, rubs noted. ABDOMEN: Round, soft, nondistended, nontender. Bowel sounds present. EXTREMITIES: There is mild edema. There is no clubbing, cyanosis. Left upper extremity with AV graft. SKIN: No rash, petechiae noted. NEUROLOGIC: Lethargic but arousable Results Result Diagram: 10/16/16 0400 10/16/16 0400 Results 24 hrs Laboratory Tests Test 10/15/16 16:19 10/15/16 17:10 10/15/16 20:59 10/15/16 21:41 Bedside Glucose 95 94 49 *L 136 Test 10/15/16 22:33 10/16/16 01:27 10/16/16 01:50 10/16/16 04:00 Bedside Glucose 129 38 *L 134 White Blood Count 3.5 L Red Blood Count 3.95 L Hemoglobin 11.3 L Hematocrit 36.9 L Mean Corpuscular Volume 93.4 Mean Corpuscular Hemoglobin 28.6 L Mean Corpuscular Hemoglobin Concent 30.6 L Red Cell Distribution Width 16.3 H Platelet Count 247 Mean Platelet Volume 11.1 H Neutrophils % 55.8 Lymphocytes % 19.0 Monocytes % 14.7 H Eosinophils % 7.9 H Basophils % 2.3 H Nucleated Red Blood Cells % 0.0 Neutrophils # 2.0 Lymphocytes # 0.7 L Monocytes # 0.5 Eosinophils # 0.3 Basophils # 0.1 Nucleated Red Blood Cells # 0.0 Sodium Level 141 Potassium Level 3.5 Chloride Level 98 Carbon Dioxide Level 24 Anion Gap 23 H Blood Urea Nitrogen 46 H Creatinine 8.29 H Glucose Level 68 L Calcium Level 9.1 Total Bilirubin 0.1 L Direct Bilirubin 0.00 Indirect Bilirubin 0.1 Aspartate Amino Transf (AST/SGOT) 41 Alanine Aminotransferase (ALT/SGPT) 126 H Alkaline Phosphatase 244 H Total Protein 7.0 Albumin 3.5 Globulin 3.50 H Albumin/Globulin Ratio 1.00 Test 10/16/16 05:37 10/16/16 05:40 10/16/16 06:07 10/16/16 06:22 Bedside Glucose 44 *L 45 *L 98 119 Test 10/16/16 06:37 10/16/16 06:57 10/16/16 08:18 10/16/16 09:05 Bedside Glucose 113 118 92 121 Test 10/16/16 11:40 10/16/16 13:39 Bedside Glucose 142 206 Medications Medications Current Medications Ondansetron HCl (Zofran Inj) 4 mg Q6H PRN IV NAUSEA AND/OR VOMITING; Start at 06:00 Acetaminophen (Tylenol Liquid) 650 mg Q6H PRN PO PAIN LEVEL 1-3 OR FEVER Last administered on 09/30/16 08:32; Admin Dose 650 MG; Start 09/28/16 at 06:00 Hydromorphone HCl (Dilaudid) 0.5 mg Q4H PRN IV PAIN LEVEL 7-10 Last administered on 10/16/16 07:44; Admin Dose 0.5 MG; Start 09/28/16 at 06:00 Heparin Sodium (Porcine) (Heparin (5000 Units/0.5 ml)) 5,000 unit Q12 SC Last administered on 10/16/16 08:16; Admin Dose 5,000 UNIT; Start 09/28/16 at 09:00 Famotidine (Pepcid Iv) 20 mg DAILY IV Last administered on 10/16/16 08:15; Admin Dose 20 MG; Start 09/28/16 at 09:00 Acetaminophen (Tylenol Liquid) 650 mg Q4H PRN NGT PAIN AND OR ELEVATED TEMP Last administered on 10/06/16 23:16; Admin Dose 650 MG; Start 09/30/16 at 08:30 Prasugrel (Effient) 10 mg DAILY PO Last administered on 10/14/16 09:39; Admin Dose 10 MG; Start 10/02/16 at 09:00 Carvedilol (Coreg) 12.5 mg BID NGT Last administered on 10/14/16 20:07; Admin Dose 12.5 MG; Start 10/02/16 at 21:00 Miscellaneous Information (Pending [facility]yl Order For Wound Care) This patient osorio... PRN PRN XX WOUND CARE; Start 10/06/16 at 09:30 Calcium Carbonate (Ca Carbonate) 1,250 mg BID NGT Last administered on 20:07; Admin Dose 1,250 MG; Start 10/07/16 at 10:30 Aspirin (Aspirin) 81 mg DAILY NGT Last administered on 10/14/16 13:12; Admin Dose 81 MG; Start 10/08/16 at 09:00 Miscellaneous Information 1 ea NOTE XX ; Start 10/10/16 at 15:30 Glucose (Glutose) 15 gm Q15M PRN PO DECREASED GLUCOSE; Start 10/10/16 at 15:30 Glucose (Glutose) 22.5 gm Q15M PRN PO DECREASED GLUCOSE; Start 10/10/16 at 15: 30 Dextrose (D50w Syringe) 25 ml Q15M PRN IV DECREASED GLUCOSE; Start 10/10/16 at 15:30 Dextrose (D50w Syringe) 50 ml Q15M PRN IV DECREASED GLUCOSE Last administered on 10/16/16 05:46; Admin Dose 50 ML; Start 10/10/16 at 15:30 Glucagon (Glucagen) 1 mg Q15M PRN IM DECREASED GLUCOSE; Start 10/10/16 at 15:30 Glucose (Glutose) 15 gm Q15M PRN BUCCAL DECREASED GLUCOSE; Start 10/10/16 at 15 :30 Diphenoxylate HCl/ Atropine (Lomotil Liquid Cup) 10 ml Q8H PRN NGT LOOSE STOOLS ; Start 10/10/16 at 18:00 Dextrose (D50w Syringe) 25 ml Q15M PRN IV Till BS 80 mg/dL or above x2 Last administered on 10/13/16 20:29; Admin Dose 25 ML; Start 10/10/16 at 21:30 Dextrose 50 ml 50 ml Q15M PRN IV Till BS 80 mg/dL or above x2; Start 10/10/16 at 21:30 Linezolid (Zyvox 600mg/D5W (Pmx)) 300 ml @ 300 mls/hr Q12 IVPB Last administered on 10/16/16 08:15; Admin Dose 300 MLS/HR; Start 10/15/16 at 10:30 Insulin Aspart (Novolog Insulin Pen) NOVOLOG *MILD* ALGORI... Q4 SC Last administered on 10/16/16 13:42; Admin Dose 2 UNIT; Start 10/15/16 at 17:00 Hydralazine HCl 20 mg 20 mg Q6H PRN IV ELEVATED SYSTOLIC BP; Start 10/16/16 at 02:00 Dextrose (D5W) 1,000 ml @ 75 mls/hr [id number] IV Last administered on 10/16/16t 02:17; Admin Dose 50 MLS/HR; Start 10/16/16 at 02:00; Stop 10/16/16 at 16:00 Insulin Detemir (Levemir) 10 unit Q12 SC ; Start 10/16/16 at 21:00 ANGELINA CASTREJON October 16, 2016 14:58
--- NOTE | 2016-10-16 18:11 | CONS ---
Date/Time of Note Date/Time of Note DATE: 10/16/16 TIME: 18:10 Consult Date/Type/Reason Admit Date/Time Sep 28, 2016 at 05:39 Initial Consult Date 10/01/16 Type of Consultation: Card and [facility] int Ordering Provider: WILMER RODRIGUEZ MD Objective Vital Signs Date Time Temp Pulse Resp B/P Pulse Ox O2 Delivery O2 Flow Rate FiO2 10/16/16 17:20 103 17 144/95 100 Room Air 10/16/16 12:00 98.2 10/14/16 13:00 10/14/16 11:09 30 Intake and Output 10/15/16 10/15/16 10/16/16 15:00 23:00 07:00 Intake Total 309.5 ml 300.5 ml 275 ml Output Total 20 ml 0 ml 20 ml Balance 289.5 ml 300.5 ml 255 ml Results/Medications Result Diagram: 10/16/16 0400 10/16/16 0400 Results 24 hrs Laboratory Tests Test 10/15/16 20:59 10/15/16 21:41 10/15/16 22:33 10/16/16 01:27 Bedside Glucose 49 *L 136 129 38 *L Test 10/16/16 01:50 10/16/16 04:00 10/16/16 05:37 10/16/16 05:40 Bedside Glucose 134 44 *L 45 *L White Blood Count 3.5 L Red Blood Count 3.95 L Hemoglobin 11.3 L Hematocrit 36.9 L Mean Corpuscular Volume 93.4 Mean Corpuscular Hemoglobin 28.6 L Mean Corpuscular Hemoglobin Concent 30.6 L Red Cell Distribution Width 16.3 H Platelet Count 247 Mean Platelet Volume 11.1 H Neutrophils % 55.8 Lymphocytes % 19.0 Monocytes % 14.7 H Eosinophils % 7.9 H Basophils % 2.3 H Nucleated Red Blood Cells % 0.0 Neutrophils # 2.0 Lymphocytes # 0.7 L Monocytes # 0.5 Eosinophils # 0.3 Basophils # 0.1 Nucleated Red Blood Cells # 0.0 Sodium Level 141 Potassium Level 3.5 Chloride Level 98 Carbon Dioxide Level 24 Anion Gap 23 H Blood Urea Nitrogen 46 H Creatinine 8.29 H Glucose Level 68 L Calcium Level 9.1 Total Bilirubin 0.1 L Direct Bilirubin 0.00 Indirect Bilirubin 0.1 Aspartate Amino Transf (AST/SGOT) 41 Alanine Aminotransferase (ALT/SGPT) 126 H Alkaline Phosphatase 244 H Total Protein 7.0 Albumin 3.5 Globulin 3.50 H Albumin/Globulin Ratio 1.00 Test 10/16/16 06:07 10/16/16 06:22 10/16/16 06:37 10/16/16 06:57 Bedside Glucose 98 119 113 118 Test 10/16/16 08:18 10/16/16 09:05 10/16/16 11:40 10/16/16 13:39 Bedside Glucose 92 121 142 206 Test 10/16/16 16:58 Bedside Glucose 152 Medications Current Medications Ondansetron HCl (Zofran Inj) 4 mg Q6H PRN IV NAUSEA AND/OR VOMITING; Start at 06:00 Acetaminophen (Tylenol Liquid) 650 mg Q6H PRN PO PAIN LEVEL 1-3 OR FEVER Last administered on 09/30/16 08:32; Admin Dose 650 MG; Start 09/28/16 at 06:00 Hydromorphone HCl (Dilaudid) 0.5 mg Q4H PRN IV PAIN LEVEL 7-10 Last administered on 10/16/16 17:30; Admin Dose 0.5 MG; Start 09/28/16 at 06:00 Heparin Sodium (Porcine) (Heparin (5000 Units/0.5 ml)) 5,000 unit Q12 SC Last administered on 10/16/16 08:16; Admin Dose 5,000 UNIT; Start 09/28/16 at 09:00 Famotidine (Pepcid Iv) 20 mg DAILY IV Last administered on 10/16/16 08:15; Admin Dose 20 MG; Start 09/28/16 at 09:00 Acetaminophen (Tylenol Liquid) 650 mg Q4H PRN NGT PAIN AND OR ELEVATED TEMP Last administered on 10/06/16 23:16; Admin Dose 650 MG; Start 09/30/16 at 08:30 Prasugrel (Effient) 10 mg DAILY PO Last administered on 10/14/16 09:39; Admin Dose 10 MG; Start 10/02/16 at 09:00 Carvedilol (Coreg) 12.5 mg BID NGT Last administered on 10/14/16 20:07; Admin Dose 12.5 MG; Start 10/02/16 at 21:00 Miscellaneous Information (Pending [facility] Order For Wound Care) This patient osorio... PRN PRN XX WOUND CARE; Start 10/06/16 at 09:30 Calcium Carbonate (Ca Carbonate) 1,250 mg BID NGT Last administered on 20:07; Admin Dose 1,250 MG; Start 10/07/16 at 10:30 Aspirin (Aspirin) 81 mg DAILY NGT Last administered on 10/14/16 13:12; Admin Dose 81 MG; Start 10/08/16 at 09:00 Miscellaneous Information 1 ea NOTE XX ; Start 10/10/16 at 15:30 Glucose (Glutose) 15 gm Q15M PRN PO DECREASED GLUCOSE; Start 10/10/16 at 15:30 Glucose (Glutose) 22.5 gm Q15M PRN PO DECREASED GLUCOSE; Start 10/10/16 at 15: 30 Dextrose (D50w Syringe) 25 ml Q15M PRN IV DECREASED GLUCOSE; Start 10/10/16 at 15:30 Dextrose (D50w Syringe) 50 ml Q15M PRN IV DECREASED GLUCOSE Last administered on 10/16/16 05:46; Admin Dose 50 ML; Start 10/10/16 at 15:30 Glucagon (Glucagen) 1 mg Q15M PRN IM DECREASED GLUCOSE; Start 10/10/16 at 15:30 Glucose (Glutose) 15 gm Q15M PRN BUCCAL DECREASED GLUCOSE; Start 10/10/16 at 15 :30 Diphenoxylate HCl/ Atropine (Lomotil Liquid Cup) 10 ml Q8H PRN NGT LOOSE STOOLS ; Start 10/10/16 at 18:00 Dextrose (D50w Syringe) 25 ml Q15M PRN IV Till BS 80 mg/dL or above x2 Last administered on 10/13/16 20:29; Admin Dose 25 ML; Start 10/10/16 at 21:30 Dextrose 50 ml 50 ml Q15M PRN IV Till BS 80 mg/dL or above x2; Start 10/10/16 at 21:30 Linezolid (Zyvox 600mg/D5W (Pmx)) 300 ml @ 300 mls/hr Q12 IVPB Last administered on 10/16/16 08:15; Admin Dose 300 MLS/HR; Start 10/15/16 at 10:30 Insulin Aspart (Novolog Insulin Pen) NOVOLOG *MILD* ALGORI... 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 mild elevated trop and non ischemic EKG. Problems: Additional Assessment/Plan Pt post extubated he is doing fine on medical management HD continue doing fine stable CYNDIE GARCIA MD October 16, 2016 18:11
[2016-10-16] MEDS: INSULIN DETEMIR [LEVEMIR] 3ML CART SC SCH (21:12)
[2016-10-17] VITALS (18 sets, daily range): BP systolic 117–163; BP diastolic 77–106; PULSE 73–100; RESP 9–20
[2016-10-17] MEDS: HYDROmorphONE 1 MG/ML SYG IV PRN ×6 (01:44→22:02)
[2016-10-17] MEDS: INSULIN ASPART [NOVOLOG] 3 ML PEN SC SCH ×6 (01:48→21:00)
[2016-10-17 06:33] LABS: ADD SCAN DIFF NO
[2016-10-17 06:44] LABS: BASOPHIL # 0.1 10^3/ul (0.0-0.1); BASOPHILS % 1.8 % (0.0-2.0); EOSINOPHILS # 0.3 10^3/ul (0.0-0.5); EOSINOPHILS % 7.8 % (0.0-7.0); HEMATOCRIT 38.5 % (42.0-52.0); HEMOGLOBIN 11.9 g/dl (14.0-18.0); LYMPHOCYTES # 1.1 10^3/ul (0.8-2.9); LYMPHOCYTES % 28.3 % (15.0-51.0); MEAN CORPUSCULAR HGB CONC 30.9 g/dl (32.0-37.0); MEAN CORPUSCULAR VOLUME 93.7 fl (82.0-101.0); MEAN PLATELET VOLUME 11.2 fl (7.4-10.4); MONOCYTE # 0.5 10^3/ul (0.3-0.9); MONOCYTES % 13.5 % (0.0-11.0); NEUTROPHIL # 1.9 10^3/ul (1.6-7.5); NEUTROPHILS % 48.6 % (39.0-77.0); PLATELET COUNT 226 10^3/UL (140-415); RED BLOOD COUNT 4.11 10^6/ul (4.70-6.10); RED CELL DISTRIBUTION WIDTH 16.8 % (11.5-14.5)
[2016-10-17 07:11] LABS: POTASSIUM 3.8 mmol/L (3.5-5.1)
[2016-10-17 07:13] LABS: CREATININE 7.19 mg/dl (0.61-1.24)
[2016-10-17 07:14] LABS: CALCIUM 9.4 mg/dl (8.4-10.2)
[2016-10-17] MEDS: ASPIRIN 81 MG TAB NGT SCH (08:27)
[2016-10-17] MEDS: HEPARIN 5,000 UNIT/0.5 ML VIAL SC SCH ×2 (08:29→21:03)
--- NOTE | 2016-10-17 08:39 | CONS ---
Date/Time of Note Date/Time of Note DATE: 10/17/16 TIME: 08:35 Assessment/Plan Assessment/Plan Chief Complaint/Hosp Course 1. ESRD , he is on maintenance hemodialysis . He is due for hemodialysis treatment tomorrow . he usually dialyzes TTS .I ordered hemodialysis for tomorrow . 2. Type I DM 3. h/o flash pulmonary edema, his last chest x-ray done today was clear without any edema. 4. HTN 5. CAD 6. respiratory failure , he is now extubated. 7. He is able to swallow now . 8. ALOC , his mental status is improved. 10. He was growing VRE from 1of 2 blood cultures , on antibiotics 11. hypocalcemia , this is correcting , he is on calcium carbonate and IV calcitriol . Problems: Consultation Date/Type/Reason Admit Date/Time Sep 28, 2016 at 05:39 Initial Consult Date 09/28/16 Type of Consultation: Card and [facility] int Referring Provider: WILMER RODRIGUEZ MD 24 HR Interval Summary Free Text/Dictation He is awake and responsive in the ICU . Constitutional: no complaints Exam/Review of Systems Vital Signs Vitals Vital Signs Date Time Temp Pulse Resp B/P Pulse Ox O2 Delivery O2 Flow Rate FiO2 10/17/16 06:00 85 13 131/96 100 Room Air 10/17/16 04:00 98.6 10/14/16 13:00 10/14/16 11:09 30 Intake and Output 10/16/16 10/16/16 10/17/16 15:00 23:00 07:00 Intake Total 1250 ml 60 ml 240 ml Output Total 3535 ml 1000 ml 134 ml Balance -2285 ml -940 ml 106 ml Exam Constitutional: alert, oriented Respiratory: clear to auscultation, normal air movement Cardiovascular: regular rate and rhythm Extremities: edema Results Result Diagram: 10/17/16 0540 10/17/16 0540 Results 24 hrs Laboratory Tests Test 10/16/16 09:05 10/16/16 11:40 10/16/16 13:39 10/16/16 16:58 Bedside Glucose 121 142 206 152 Test 10/16/16 20:34 10/17/16 01:41 10/17/16 01:42 10/17/16 05:38 Bedside Glucose 160 166 151 150 Test 10/17/16 05:40 10/17/16 07:56 White Blood Count 4.0 L Red Blood Count 4.11 L Hemoglobin 11.9 L Hematocrit 38.5 L Mean Corpuscular Volume 93.7 Mean Corpuscular Hemoglobin 29.0 Mean Corpuscular Hemoglobin Concent 30.9 L Red Cell Distribution Width 16.8 H Platelet Count 226 Mean Platelet Volume 11.2 H Neutrophils % 48.6 Lymphocytes % 28.3 Monocytes % 13.5 H Eosinophils % 7.8 H Basophils % 1.8 Nucleated Red Blood Cells % 0.0 Neutrophils # 1.9 Lymphocytes # 1.1 Monocytes # 0.5 Eosinophils # 0.3 Basophils # 0.1 Nucleated Red Blood Cells # 0.0 Sodium Level 139 Potassium Level 3.8 Chloride Level 97 Carbon Dioxide Level 24 Anion Gap 22 H Blood Urea Nitrogen 33 #H Creatinine 7.19 H Glucose Level 163 Calcium Level 9.4 Bedside Glucose 134 Medications Medications Current Medications Ondansetron HCl (Zofran Inj) 4 mg Q6H PRN IV NAUSEA AND/OR VOMITING; Start at 06:00 Acetaminophen (Tylenol Liquid) 650 mg Q6H PRN PO PAIN LEVEL 1-3 OR FEVER Last administered on 09/30/16 08:32; Admin Dose 650 MG; Start 09/28/16 at 06:00 Hydromorphone HCl (Dilaudid) 0.5 mg Q4H PRN IV PAIN LEVEL 7-10 Last administered on 10/17/16 05:35; Admin Dose 0.5 MG; Start 09/28/16 at 06:00 Heparin Sodium (Porcine) (Heparin (5000 Units/0.5 ml)) 5,000 unit Q12 SC Last administered on 10/16/16 21:11; Admin Dose 5,000 UNIT; Start 09/28/16 at 09:00 Famotidine (Pepcid Iv) 20 mg DAILY IV Last administered on 10/16/16 08:15; Admin Dose 20 MG; Start 09/28/16 at 09:00 Acetaminophen (Tylenol Liquid) 650 mg Q4H PRN NGT PAIN AND OR ELEVATED TEMP Last administered on 10/06/16 23:16; Admin Dose 650 MG; Start 09/30/16 at 08:30 Prasugrel (Effient) 10 mg DAILY PO Last administered on 10/14/16 09:39; Admin Dose 10 MG; Start 10/02/16 at 09:00 Carvedilol (Coreg) 12.5 mg BID NGT Last administered on 10/16/16 21:04; Admin Dose 12.5 MG; Start 10/02/16 at 21:00 [facility] This patient osorio... PRN PRN XX WOUND CARE; Start 10/06/16 at 09:30 Calcium Carbonate (Ca Carbonate) 1,250 mg BID NGT Last administered on 21:07; Admin Dose 1,250 MG; Start 10/07/16 at 10:30 Aspirin (Aspirin) 81 mg DAILY NGT Last administered on 10/14/16 13:12; Admin Dose 81 MG; Start 10/08/16 at 09:00 Miscellaneous Information 1 ea NOTE XX ; Start 10/10/16 at 15:30 Glucose (Glutose) 15 gm Q15M PRN PO DECREASED GLUCOSE; Start 10/10/16 at 15:30 Glucose (Glutose) 22.5 gm Q15M PRN PO DECREASED GLUCOSE; Start 10/10/16 at 15: 30 Dextrose (D50w Syringe) 25 ml Q15M PRN IV DECREASED GLUCOSE; Start 10/10/16 at 15:30 Dextrose (D50w Syringe) 50 ml Q15M PRN IV DECREASED GLUCOSE Last administered on 10/16/16 05:46; Admin Dose 50 ML; Start 10/10/16 at 15:30 Glucagon (Glucagen) 1 mg Q15M PRN IM DECREASED GLUCOSE; Start 10/10/16 at 15:30 Glucose (Glutose) 15 gm Q15M PRN BUCCAL DECREASED GLUCOSE; Start 10/10/16 at 15 :30 Diphenoxylate HCl/ Atropine (Lomotil Liquid Cup) 10 ml Q8H PRN NGT LOOSE STOOLS ; Start 10/10/16 at 18:00 Dextrose (D50w Syringe) 25 ml Q15M PRN IV Till BS 80 mg/dL or above x2 Last administered on 10/13/16 20:29; Admin Dose 25 ML; Start 10/10/16 at 21:30 Dextrose 50 ml 50 ml Q15M PRN IV Till BS 80 mg/dL or above x2; Start 10/10/16 at 21:30 Linezolid (Zyvox 600mg/D5W (Pmx)) 300 ml @ 300 mls/hr Q12 IVPB Last administered on 10/16/16 20:59; Admin Dose 300 MLS/HR; Start 10/15/16 at 10:30 Insulin Aspart (Novolog Insulin Pen) NOVOLOG *MILD* ALGORI... Q4 SC Last administered on 10/17/16 05:43; Admin Dose 1 UNIT; Start 10/15/16 at 17:00 Hydralazine HCl (Apresoline) 20 mg Q6H PRN IV ELEVATED SYSTOLIC BP; Start at 02:00 Insulin Detemir (Levemir) 10 unit Q12 SC Last administered on 10/16/16 21:12; Admin Dose 10 UNIT; Start 10/16/16 at 21:00 DONY HOWARD MD October 17, 2016 08:39
[2016-10-17] MEDS: INSULIN DETEMIR [LEVEMIR] 3ML CART SC SCH ×2 (08:40→22:13)
--- NOTE | 2016-10-17 08:42 | CONS ---
Date/Time of Note Date/Time of Note DATE: 10/17/16 TIME: 08:41 Consult Date/Type/Reason Admit Date/Time Sep 28, 2016 at 05:39 Initial Consult Date 10/01/16 Type of Consultation: Card and [facility] int Ordering Provider: WILMER RODRIGUEZ MD Objective Vital Signs Date Time Temp Pulse Resp B/P Pulse Ox O2 Delivery O2 Flow Rate FiO2 10/17/16 06:00 85 13 131/96 100 Room Air 10/17/16 04:00 98.6 10/14/16 13:00 10/14/16 11:09 30 Intake and Output 10/16/16 10/16/16 10/17/16 15:00 23:00 07:00 Intake Total 1250 ml 60 ml 240 ml Output Total 3535 ml 1000 ml 134 ml Balance -2285 ml -940 ml 106 ml Results/Medications Result Diagram: 10/17/16 0540 10/17/16 0540 Results 24 hrs Laboratory Tests Test 10/16/16 09:05 10/16/16 11:40 10/16/16 13:39 10/16/16 16:58 Bedside Glucose 121 142 206 152 Test 10/16/16 20:34 10/17/16 01:41 10/17/16 01:42 10/17/16 05:38 Bedside Glucose 160 166 151 150 Test 10/17/16 05:40 10/17/16 07:56 White Blood Count 4.0 L Red Blood Count 4.11 L Hemoglobin 11.9 L Hematocrit 38.5 L Mean Corpuscular Volume 93.7 Mean Corpuscular Hemoglobin 29.0 Mean Corpuscular Hemoglobin Concent 30.9 L Red Cell Distribution Width 16.8 H Platelet Count 226 Mean Platelet Volume 11.2 H Neutrophils % 48.6 Lymphocytes % 28.3 Monocytes % 13.5 H Eosinophils % 7.8 H Basophils % 1.8 Nucleated Red Blood Cells % 0.0 Neutrophils # 1.9 Lymphocytes # 1.1 Monocytes # 0.5 Eosinophils # 0.3 Basophils # 0.1 Nucleated Red Blood Cells # 0.0 Sodium Level 139 Potassium Level 3.8 Chloride Level 97 Carbon Dioxide Level 24 Anion Gap 22 H Blood Urea Nitrogen 33 #H Creatinine 7.19 H Glucose Level 163 Calcium Level 9.4 Bedside Glucose 134 Medications Current Medications Ondansetron HCl (Zofran Inj) 4 mg Q6H PRN IV NAUSEA AND/OR VOMITING; Start at 06:00 Acetaminophen (Tylenol Liquid) 650 mg Q6H PRN PO PAIN LEVEL 1-3 OR FEVER Last administered on 09/30/16 08:32; Admin Dose 650 MG; Start 09/28/16 at 06:00 Hydromorphone HCl (Dilaudid) 0.5 mg Q4H PRN IV PAIN LEVEL 7-10 Last administered on 10/17/16 05:35; Admin Dose 0.5 MG; Start 09/28/16 at 06:00 Heparin Sodium (Porcine) (Heparin (5000 Units/0.5 ml)) 5,000 unit Q12 SC Last administered on 10/16/16 21:11; Admin Dose 5,000 UNIT; Start 09/28/16 at 09:00 Famotidine (Pepcid Iv) 20 mg DAILY IV Last administered on 10/16/16 08:15; Admin Dose 20 MG; Start 09/28/16 at 09:00 Acetaminophen (Tylenol Liquid) 650 mg Q4H PRN NGT PAIN AND OR ELEVATED TEMP Last administered on 10/06/16 23:16; Admin Dose 650 MG; Start 09/30/16 at 08:30 Prasugrel (Effient) 10 mg DAILY PO Last administered on 10/14/16 09:39; Admin Dose 10 MG; Start 10/02/16 at 09:00 Carvedilol (Coreg) 12.5 mg BID NGT Last administered on 10/16/16 21:04; Admin Dose 12.5 MG; Start 10/02/16 at 21:00 Miscellaneous Information (Pending [facility] Order For Wound Care) This patient osorio... PRN PRN XX WOUND CARE; Start 10/06/16 at 09:30 Calcium Carbonate (Ca Carbonate) 1,250 mg BID NGT Last administered on 21:07; Admin Dose 1,250 MG; Start 10/07/16 at 10:30 Aspirin (Aspirin) 81 mg DAILY NGT Last administered on 10/14/16 13:12; Admin Dose 81 MG; Start 10/08/16 at 09:00 Miscellaneous Information 1 ea NOTE XX ; Start 10/10/16 at 15:30 Glucose (Glutose) 15 gm Q15M PRN PO DECREASED GLUCOSE; Start 10/10/16 at 15:30 Glucose (Glutose) 22.5 gm Q15M PRN PO DECREASED GLUCOSE; Start 10/10/16 at 15: 30 Dextrose (D50w Syringe) 25 ml Q15M PRN IV DECREASED GLUCOSE; Start 10/10/16 at 15:30 Dextrose (D50w Syringe) 50 ml Q15M PRN IV DECREASED GLUCOSE Last administered on 10/16/16 05:46; Admin Dose 50 ML; Start 10/10/16 at 15:30 Glucagon (Glucagen) 1 mg Q15M PRN IM DECREASED GLUCOSE; Start 10/10/16 at 15:30 Glucose (Glutose) 15 gm Q15M PRN BUCCAL DECREASED GLUCOSE; Start 10/10/16 at 15 :30 Diphenoxylate HCl/ Atropine (Lomotil Liquid Cup) 10 ml Q8H PRN NGT LOOSE STOOLS ; Start 10/10/16 at 18:00 Dextrose (D50w Syringe) 25 ml Q15M PRN IV Till BS 80 mg/dL or above x2 Last administered on 10/13/16 20:29; Admin Dose 25 ML; Start 10/10/16 at 21:30 Dextrose 50 ml 50 ml Q15M PRN IV Till BS 80 mg/dL or above x2; Start 10/10/16 at 21:30 Linezolid (Zyvox 600mg/D5W (Pmx)) 300 ml @ 300 mls/hr Q12 IVPB Last administered on 10/16/16 20:59; Admin Dose 300 MLS/HR; Start 10/15/16 at 10:30 Insulin Aspart (Novolog Insulin Pen) NOVOLOG *MILD* ALGORI... 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 mild elevated trop and non ischemic EKG. Problems: Additional Assessment/Plan Cardiac mcdonald stable he is doing fine plan per ICU team HD continue PAD stable CYNDIE GARCIA MD October 17, 2016 08:41
[2016-10-17] MEDS: FAMOTIDINE 20 MG INJ IV SCH (09:20)
[2016-10-17] MEDS: PRASUGREL HYDROCHLORIDE 10 MG TABLET PO SCH (09:20)
[2016-10-17] MEDS: CA CARBONATE (250 MG/ML) 5ML CUP NGT SCH ×2 (09:20→20:53)
[2016-10-17] MEDS: LINEZOLID 600 MG/D5W (PMX) 300 ML IVPB SCH ×2 (09:20→20:53)
--- NOTE | 2016-10-17 09:54 | CONS ---
Date/Time of Note Date/Time of Note DATE: 10/17/16 TIME: 09:50 Assessment/Plan Assessment/Plan Additional Assessment/Plan Assessment recommendations; 1. Patient admitted for respiratory failure due to pulmonary edema and pneumonia with marked clinical improvement. 2. End-stage renal disease, on hemodialysis. 3. Patient is legally blind. Continue current treatment. Patient will be transferred to the medical floor. We will sign off. Thanks for the referral. Please reconsult if needed. Consultation Date/Type/Reason Admit Date/Time Sep 28, 2016 at 05:39 Initial Consult Date 09/28/16 Type of Consultation: Pulmonary/critical care Referring Provider: WILMER RODRIGUEZ MD 24 HR Interval Summary Free Text/Dictation Patient condition is stable. Remains completely awake alert. Denies any shortness of breath, chest pain, coughing wheezing. Able to eat well. General exam; middle-aged male, awake alert currently in no distress. Exam/Review of Systems Vital Signs Vitals Vital Signs Date Time Temp Pulse Resp B/P Pulse Ox O2 Delivery O2 Flow Rate FiO2 10/17/16 08:00 82 10/17/16 06:00 13 131/96 100 Room Air 10/17/16 04:00 98.6 10/14/16 13:00 10/14/16 11:09 30 Intake and Output 10/16/16 10/16/16 10/17/16 15:00 23:00 07:00 Intake Total 1250 ml 60 ml 240 ml Output Total 3535 ml 1000 ml 134 ml Balance -2285 ml -940 ml 106 ml Exam HEENT exam is; supple neck, no JVD. No lymphadenopathy. Midline trachea. No thyromegaly. Pharynx clear. Patient has fair dentition. Pupils are midsize reactive to light. Chest examined; clear to auscultation. S1-S2 audible, no murmurs. Regular rhythm. Abdomen examination; soft, nondistended, nontender. No organomegaly. Bowel sounds audible. Extremity examination; no peripheral edema. 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 Results Result Diagram: 10/17/16 0540 10/17/16 0540 Results 24 hrs Laboratory Tests Test 10/16/16 11:40 10/16/16 13:39 10/16/16 16:58 10/16/16 20:34 Bedside Glucose 142 206 152 160 Test 10/17/16 01:41 10/17/16 01:42 10/17/16 05:38 10/17/16 05:40 Bedside Glucose 166 151 150 White Blood Count 4.0 L Red Blood Count 4.11 L Hemoglobin 11.9 L Hematocrit 38.5 L Mean Corpuscular Volume 93.7 Mean Corpuscular Hemoglobin 29.0 Mean Corpuscular Hemoglobin Concent 30.9 L Red Cell Distribution Width 16.8 H Platelet Count 226 Mean Platelet Volume 11.2 H Neutrophils % 48.6 Lymphocytes % 28.3 Monocytes % 13.5 H Eosinophils % 7.8 H Basophils % 1.8 Nucleated Red Blood Cells % 0.0 Neutrophils # 1.9 Lymphocytes # 1.1 Monocytes # 0.5 Eosinophils # 0.3 Basophils # 0.1 Nucleated Red Blood Cells # 0.0 Sodium Level 139 Potassium Level 3.8 Chloride Level 97 Carbon Dioxide Level 24 Anion Gap 22 H Blood Urea Nitrogen 33 #H Creatinine 7.19 H Glucose Level 163 Calcium Level 9.4 Test 10/17/16 07:56 Bedside Glucose 134 Medications Medications Current Medications Ondansetron HCl (Zofran Inj) 4 mg Q6H PRN IV NAUSEA AND/OR VOMITING; Start at 06:00 Acetaminophen (Tylenol Liquid) 650 mg Q6H PRN PO PAIN LEVEL 1-3 OR FEVER Last administered on 09/30/16 08:32; Admin Dose 650 MG; Start 09/28/16 at 06:00 Hydromorphone HCl (Dilaudid) 0.5 mg Q4H PRN IV PAIN LEVEL 7-10 Last administered on 10/17/16 09:19; Admin Dose 0.5 MG; Start 09/28/16 at 06:00 Heparin Sodium (Porcine) (Heparin (5000 Units/0.5 ml)) 5,000 unit Q12 SC Last administered on 10/17/16 08:29; Admin Dose 5,000 UNIT; Start 09/28/16 at 09:00 Famotidine (Pepcid Iv) 20 mg DAILY IV Last administered on 10/17/16 09:20; Admin Dose 20 MG; Start 09/28/16 at 09:00 Acetaminophen (Tylenol Liquid) 650 mg Q4H PRN NGT PAIN AND OR ELEVATED TEMP Last administered on 10/06/16 23:16; Admin Dose 650 MG; Start 09/30/16 at 08:30 Prasugrel (Effient) 10 mg DAILY PO Last administered on 10/17/16 09:20; Admin Dose 10 MG; Start 10/02/16 at 09:00 Carvedilol (Coreg) 12.5 mg BID NGT Last administered on 10/17/16 08:28; Admin Dose 12.5 MG; Start 10/02/16 at 21:00 Miscellaneous Information (Pending [facility] Order For Wound Care) This patient osorio... PRN PRN XX WOUND CARE; Start 10/06/16 at 09:30 Calcium Carbonate (Ca Carbonate) 1,250 mg BID NGT Last administered on 09:20; Admin Dose 1,250 MG; Start 10/07/16 at 10:30 Aspirin (Aspirin) 81 mg DAILY NGT Last administered on 10/17/16 08:27; Admin Dose 81 MG; Start 10/08/16 at 09:00 Miscellaneous Information 1 ea NOTE XX ; Start 10/10/16 at 15:30 Glucose (Glutose) 15 gm Q15M PRN PO DECREASED GLUCOSE; Start 10/10/16 at 15:30 Glucose (Glutose) 22.5 gm Q15M PRN PO DECREASED GLUCOSE; Start 10/10/16 at 15: 30 Dextrose (D50w Syringe) 25 ml Q15M PRN IV DECREASED GLUCOSE; Start 10/10/16 at 15:30 Dextrose (D50w Syringe) 50 ml Q15M PRN IV DECREASED GLUCOSE Last administered on 10/16/16 05:46; Admin Dose 50 ML; Start 10/10/16 at 15:30 Glucagon (Glucagen) 1 mg Q15M PRN IM DECREASED GLUCOSE; Start 10/10/16 at 15:30 Glucose (Glutose) 15 gm Q15M PRN BUCCAL DECREASED GLUCOSE; Start 10/10/16 at 15 :30 Diphenoxylate HCl/ Atropine (Lomotil Liquid Cup) 10 ml Q8H PRN NGT LOOSE STOOLS ; Start 10/10/16 at 18:00 Dextrose (D50w Syringe) 25 ml Q15M PRN IV Till BS 80 mg/dL or above x2 Last administered on 10/13/16 20:29; Admin Dose 25 ML; Start 10/10/16 at 21:30 Dextrose 50 ml 50 ml Q15M PRN IV Till BS 80 mg/dL or above x2; Start 10/10/16 at 21:30 Linezolid (Zyvox 600mg/D5W (Pmx)) 300 ml @ 300 mls/hr Q12 IVPB Last administered on 10/17/16 09:20; Admin Dose 300 MLS/HR; Start 10/15/16 at 10:30 Insulin Aspart (Novolog Insulin Pen) NOVOLOG *MILD* ALGORI... Q4 SC Last administered on 10/17/16 05:43; Admin Dose 1 UNIT; Start 10/15/16 at 17:00 Hydralazine HCl (Apresoline) 20 mg Q6H PRN IV ELEVATED SYSTOLIC BP; Start at 02:00 Insulin Detemir (Levemir) 10 unit Q12 SC Last administered on 10/17/16 08:40; Admin Dose 10 UNIT; Start 10/16/16 at 21:00 ELTON FELIX October 17, 2016 09:54
--- NOTE | 2016-10-17 13:11 | PN ---
Date/Time of Note Date/Time of Note DATE: 10/17/16 TIME: 13:08 Assessment/Plan VTE Prophylaxis VTE Prophylaxis Intervention: SCD's Lines/Catheters IV [facility] Portacath Urinary Cath still in place: No Assessment/Plan Chief Complaint/Hosp Course ASSESSMENT AND PLAN: - Acute respiratory failure, resolved. Dr. Nunez is following in pulmonology consultation. - S/p septic shock. - VRE bacteremia, continue antibiotics per ID. Dr. Allison is following in ID consultation. - End-stage renal disease, hemodialysis dependent. Dr. Hubbard is following the patient in nephrology consultation. Continue hemodialysis per nephrology. - Diabetes mellitus type 1. Dr. Garay is following in endocrinology consultation. - Peripheral arterial disease, status post vascular intervention. Continue heparin. - Anemia of chronic disease. Continue Epogen. - Coronary artery disease. Dr. Stephen is following in cardiology consultation. - Possible healthcare acquired pneumonia. Continue antibiotics per ID. - Transaminitis most likely to shock liver, resolving. Dr. Britt is following in gastroenterology consultation Continue heparin for deep venous thrombosis prophylaxis and Pepcid for peptic ulcer disease prophylaxis. Further recommendations based on clinical course. Plan of care discussed with Dr. Rosales. Problems: Subjective 24 Hr Interval Summary Free Text/Dictation Patient is transferred to telemetry, hemodynamically stable, blood sugar is well controlled on current regimen. Exam/Review of Systems Vital Signs Vitals Vital Signs Date Time Temp Pulse Resp B/P Pulse Ox O2 Delivery O2 Flow Rate FiO2 10/17/16 12:37 73 10/17/16 12:23 98.0 18 138/90 99 10/17/16 10:00 Room Air 10/14/16 13:00 10/14/16 11:09 30 Intake and Output 10/16/16 10/16/16 10/17/16 15:00 23:00 07:00 Intake Total 1250 ml 60 ml 300 ml Output Total 3535 ml 1000 ml 134 ml Balance -2285 ml -940 ml 166 ml Exam GENERAL: Well-developed, well-nourished gentleman, awake alert. HEENT: Head is atraumatic, normocephalic. Patient has a right eye prosthesis. Left eye pupil is equal, round, sluggishly reactive to light and accommodation. NECK: Supple, no cervical lymphadenopathy, no thyromegaly. CHEST: Lung sounds diminished at the bases. Scattered rhonchi bilaterally. Patient has a left chest Port-A-Cath. CARDIOVASCULAR: Normal S1, S2. No murmurs, gallops, clicks, rubs noted. ABDOMEN: Round, soft, nondistended, nontender. Bowel sounds present. EXTREMITIES: There is mild edema. There is no clubbing, cyanosis. Left upper extremity with AV graft. SKIN: No rash, petechiae noted. NEUROLOGIC: Alert and oriented 3 Results Result Diagram: 10/17/16 0540 10/17/16 0540 Results 24 hrs Laboratory Tests Test 10/16/16 13:39 10/16/16 16:58 10/16/16 20:34 10/17/16 01:41 Bedside Glucose 206 152 160 166 Test 10/17/16 01:42 10/17/16 05:38 10/17/16 05:40 10/17/16 07:56 Bedside Glucose 151 150 134 White Blood Count 4.0 L Red Blood Count 4.11 L Hemoglobin 11.9 L Hematocrit 38.5 L Mean Corpuscular Volume 93.7 Mean Corpuscular Hemoglobin 29.0 Mean Corpuscular Hemoglobin Concent 30.9 L Red Cell Distribution Width 16.8 H Platelet Count 226 Mean Platelet Volume 11.2 H Neutrophils % 48.6 Lymphocytes % 28.3 Monocytes % 13.5 H Eosinophils % 7.8 H Basophils % 1.8 Nucleated Red Blood Cells % 0.0 Neutrophils # 1.9 Lymphocytes # 1.1 Monocytes # 0.5 Eosinophils # 0.3 Basophils # 0.1 Nucleated Red Blood Cells # 0.0 Sodium Level 139 Potassium Level 3.8 Chloride Level 97 Carbon Dioxide Level 24 Anion Gap 22 H Blood Urea Nitrogen 33 #H Creatinine 7.19 H Glucose Level 163 Calcium Level 9.4 Test 10/17/16 12:19 Bedside Glucose 112 Medications Medications Current Medications Ondansetron HCl (Zofran Inj) 4 mg Q6H PRN IV NAUSEA AND/OR VOMITING; Start at 06:00 Acetaminophen (Tylenol Liquid) 650 mg Q6H PRN PO PAIN LEVEL 1-3 OR FEVER Last administered on 09/30/16t 08:32; Admin Dose 650 MG; Start 09/28/16 at 06:00 Hydromorphone HCl (Dilaudid) 0.5 mg Q4H PRN IV PAIN LEVEL 7-10 Last administered on 10/17/16 09:19; Admin Dose 0.5 MG; Start 09/28/16 at 06:00 Heparin Sodium (Porcine) (Heparin (5000 Units/0.5 ml)) 5,000 unit Q12 SC Last administered on 10/17/16 08:29; Admin Dose 5,000 UNIT; Start 09/28/16 at 09:00 Famotidine (Pepcid Iv) 20 mg DAILY IV Last administered on 10/17/16 09:20; Admin Dose 20 MG; Start 09/28/16 at 09:00 Acetaminophen (Tylenol Liquid) 650 mg Q4H PRN NGT PAIN AND OR ELEVATED TEMP Last administered on 10/06/16 23:16; Admin Dose 650 MG; Start 09/30/16 at 08:30 Prasugrel (Effient) 10 mg DAILY PO Last administered on 10/17/16 09:20; Admin Dose 10 MG; Start 10/02/16 at 09:00 Carvedilol (Coreg) 12.5 mg BID NGT Last administered on 10/17/16 08:28; Admin Dose 12.5 MG; Start 10/02/16 at 21:00 Miscellaneous Information (Pending [facility] Order For Wound Care) This patient osorio... PRN PRN XX WOUND CARE; Start 10/06/16 at 09:30 Calcium Carbonate (Ca Carbonate) 1,250 mg BID NGT Last administered on 09:20; Admin Dose 1,250 MG; Start 10/07/16 at 10:30 Aspirin (Aspirin) 81 mg DAILY NGT Last administered on 10/17/16 08:27; Admin Dose 81 MG; Start 10/08/16 at 09:00 Miscellaneous Information 1 ea NOTE XX ; Start 10/10/16 at 15:30 Glucose (Glutose) 15 gm Q15M PRN PO DECREASED GLUCOSE; Start 10/10/16 at 15:30 Glucose (Glutose) 22.5 gm Q15M PRN PO DECREASED GLUCOSE; Start 10/10/16 at 15: 30 Dextrose (D50w Syringe) 25 ml Q15M PRN IV DECREASED GLUCOSE; Start 10/10/16 at 15:30 Dextrose (D50w Syringe) 50 ml Q15M PRN IV DECREASED GLUCOSE Last administered on 10/16/16 05:46; Admin Dose 50 ML; Start 10/10/16 at 15:30 Glucagon (Glucagen) 1 mg Q15M PRN IM DECREASED GLUCOSE; Start 10/10/16 at 15:30 Glucose (Glutose) 15 gm Q15M PRN BUCCAL DECREASED GLUCOSE; Start 10/10/16 at 15 :30 Diphenoxylate HCl/ Atropine (Lomotil Liquid Cup) 10 ml Q8H PRN NGT LOOSE STOOLS ; Start 10/10/16 at 18:00 Dextrose (D50w Syringe) 25 ml Q15M PRN IV Till BS 80 mg/dL or above x2 Last administered on 10/13/16 20:29; Admin Dose 25 ML; Start 10/10/16 at 21:30 Dextrose 50 ml 50 ml Q15M PRN IV Till BS 80 mg/dL or above x2; Start 10/10/16 at 21:30 Linezolid (Zyvox 600mg/D5W (Pmx)) 300 ml @ 300 mls/hr Q12 IVPB Last administered on 10/17/16 09:20; Admin Dose 300 MLS/HR; Start 10/15/16 at 10:30 Hydralazine HCl (Apresoline) 20 mg Q6H PRN IV ELEVATED SYSTOLIC BP; Start at 02:00 Insulin Detemir (Levemir) 10 unit Q12 SC Last administered on 10/17/16 08:40; Admin Dose 10 UNIT; Start 10/16/16 at 21:00 Diagnostic Test (Pha) (Accu-Chek) 02 XX ; Start 10/18/16 at 02:00 ANGELINA CASTREJON October 17, 2016 13:10
--- NOTE | 2016-10-17 13:30 | PN ---
DATE: 10/17/2016 SUBJECTIVE: No events overnight. The patient is alert, awake, feels good, looks comfortable, no fe vers. ANTIMICROBIALS: Zyvox. INDWELLINGS: Left chest Port-A-Cath, left upper extremity AV fistula. ALLERGIES: 1. ZITHROMAX 2. ERYTHROMYCIN. PHYSICAL EXAMINATION: GENERAL: This is a chronically ill-appearing, middle-aged white man who is awake, in no distress. HEENT: Head atraumatic, normocephalic. Sclerae anicteric. Buccal mucosa dry. NECK: Supple, trachea midline. CHEST: Rise symmetrical. Breath sounds diminished to bases. HEART: S1, S2. ABDOMEN: Soft, bowel sounds present. EXTREMITIES: With trace edema. ASSESSMENT: 1. Status post sepsis with vancomycin-resistant enterococcus bacteremia. 2. Status post respiratory failure secondary to fluid overload. 3. Diabetes. 4. End-stage renal disease, hemodialysis dependent. 5. Anemia. PLAN: The patient remains stable, completing Zyvox, continue present care, anti-aspiration measures . We will keep him on antibiotics for 3 more days. Dictated By: BIJAN LONGO AUTO INSPECTION SPECIALIST for WILEY RAMOS MD NI/NTS Conf#: [id number] DID#: [id number]
--- NOTE | 2016-10-17 16:13 | CONS ---
Date/Time of Note Date/Time of Note DATE: 10/17/16 TIME: 16:12 Assessment/Plan Assessment/Plan Problems: (1) 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, with long-term current use of insulin Status: Chronic Comment: His blood sugar control is stable on the current medication regimen. He still remains quite fragile medically Consultation Date/Type/Reason Admit Date/Time Sep 28, 2016 at 05:39 Initial Consult Date 09/28/16 Type of Consultation: Endocrinology Reason for Consultation Diabetes mellitus type 1 with multiple complications admitted with respiratory failure Referring Provider: WILMER RODRIGUEZ MD 24 HR Interval Summary Constitutional: no complaints Exam/Review of Systems Vital Signs Vitals Vital Signs Date Time Temp Pulse Resp B/P Pulse Ox O2 Delivery O2 Flow Rate FiO2 10/17/16 15:57 98.2 68 18 144/90 100 10/17/16 10:00 Room Air 10/14/16 13:00 10/14/16 11:09 30 Intake and Output 10/16/16 10/16/16 10/17/16 15:00 23:00 07:00 Intake Total 1250 ml 60 ml 300 ml Output Total 3535 ml 1000 ml 134 ml Balance -2285 ml -940 ml 166 ml Exam Constitutional: alert Neck: non-tender, supple Results Result Diagram: 10/17/16 0540 10/17/16 0540 Results 24 hrs Laboratory Tests Test 10/16/16 16:58 10/16/16 20:34 10/17/16 01:41 10/17/16 01:42 Bedside Glucose 152 160 166 151 Test 10/17/16 05:38 10/17/16 05:40 10/17/16 07:56 10/17/16 12:19 Bedside Glucose 150 134 112 White Blood Count 4.0 L Red Blood Count 4.11 L Hemoglobin 11.9 L Hematocrit 38.5 L Mean Corpuscular Volume 93.7 Mean Corpuscular Hemoglobin 29.0 Mean Corpuscular Hemoglobin Concent 30.9 L Red Cell Distribution Width 16.8 H Platelet Count 226 Mean Platelet Volume 11.2 H Neutrophils % 48.6 Lymphocytes % 28.3 Monocytes % 13.5 H Eosinophils % 7.8 H Basophils % 1.8 Nucleated Red Blood Cells % 0.0 Neutrophils # 1.9 Lymphocytes # 1.1 Monocytes # 0.5 Eosinophils # 0.3 Basophils # 0.1 Nucleated Red Blood Cells # 0.0 Sodium Level 139 Potassium Level 3.8 Chloride Level 97 Carbon Dioxide Level 24 Anion Gap 22 H Blood Urea Nitrogen 33 #H Creatinine 7.19 H Glucose Level 163 Calcium Level 9.4 Medications Medications Current Medications Ondansetron HCl (Zofran Inj) 4 mg Q6H PRN IV NAUSEA AND/OR VOMITING; Start at 06:00 Acetaminophen (Tylenol Liquid) 650 mg Q6H PRN PO PAIN LEVEL 1-3 OR FEVER Last administered on 09/30/16 08:32; Admin Dose 650 MG; Start 09/28/16 at 06:00 Hydromorphone HCl (Dilaudid) 0.5 mg Q4H PRN IV PAIN LEVEL 7-10 Last administered on 10/17/16 13:36; Admin Dose 0.5 MG; Start 09/28/16 at 06:00 Heparin Sodium (Porcine) (Heparin (5000 Units/0.5 ml)) 5,000 unit Q12 SC Last administered on 10/17/16 08:29; Admin Dose 5,000 UNIT; Start 09/28/16 at 09:00 Famotidine (Pepcid Iv) 20 mg DAILY IV Last administered on 10/17/16 09:20; Admin Dose 20 MG; Start 09/28/16 at 09:00 Acetaminophen (Tylenol Liquid) 650 mg Q4H PRN NGT PAIN AND OR ELEVATED TEMP Last administered on 10/06/16 23:16; Admin Dose 650 MG; Start 09/30/16 at 08:30 Prasugrel (Effient) 10 mg DAILY PO Last administered on 10/17/16 09:20; Admin Dose 10 MG; Start 10/02/16 at 09:00 Carvedilol (Coreg) 12.5 mg BID NGT Last administered on 10/17/16 08:28; Admin Dose 12.5 MG; Start 10/02/16 at 21:00 Miscellaneous Information (Pending [facility] Order For Wound Care) This patient osorio... PRN PRN XX WOUND CARE; Start 10/06/16 at 09:30 Calcium Carbonate (Ca Carbonate) 1,250 mg BID NGT Last administered on 09:20; Admin Dose 1,250 MG; Start 10/07/16 at 10:30 Aspirin (Aspirin) 81 mg DAILY NGT Last administered on 10/17/16 08:27; Admin Dose 81 MG; Start 10/08/16 at 09:00 Miscellaneous Information 1 ea NOTE XX ; Start 10/10/16 at 15:30 Glucose (Glutose) 15 gm Q15M PRN PO DECREASED GLUCOSE; Start 10/10/16 at 15:30 Glucose (Glutose) 22.5 gm Q15M PRN PO DECREASED GLUCOSE; Start 10/10/16 at 15: 30 Dextrose (D50w Syringe) 25 ml Q15M PRN IV DECREASED GLUCOSE; Start 10/10/16 at 15:30 Dextrose (D50w Syringe) 50 ml Q15M PRN IV DECREASED GLUCOSE Last administered on 10/16/16 05:46; Admin Dose 50 ML; Start 10/10/16 at 15:30 Glucagon (Glucagen) 1 mg Q15M PRN IM DECREASED GLUCOSE; Start 10/10/16 at 15:30 Glucose (Glutose) 15 gm Q15M PRN BUCCAL DECREASED GLUCOSE; Start 10/10/16 at 15 :30 Diphenoxylate HCl/ Atropine (Lomotil Liquid Cup) 10 ml Q8H PRN NGT LOOSE STOOLS ; Start 10/10/16 at 18:00 Dextrose (D50w Syringe) 25 ml Q15M PRN IV Till BS 80 mg/dL or above x2 Last administered on 10/13/16 20:29; Admin Dose 25 ML; Start 10/10/16 at 21:30 Dextrose 50 ml 50 ml Q15M PRN IV Till BS 80 mg/dL or above x2; Start 10/10/16 at 21:30 Linezolid (Zyvox 600mg/D5W (Pmx)) 300 ml @ 300 mls/hr Q12 IVPB Last administered on 10/17/16 09:20; Admin Dose 300 MLS/HR; Start 10/15/16 at 10:30 Hydralazine HCl (Apresoline) 20 mg Q6H PRN IV ELEVATED SYSTOLIC BP; Start at 02:00 Insulin Detemir (Levemir) 10 unit Q12 SC Last administered on 10/17/16 08:40; Admin Dose 10 UNIT; Start 10/16/16 at 21:00 Diagnostic Test (Pha) (Accu-Chek) 1 ea 02 XX ; Start 10/18/16 at 02:00 DEBBY BURT MD October 17, 2016 16:12
[2016-10-18] VITALS (20 sets, daily range): BP systolic 113–172; BP diastolic 72–98; PULSE 76–98; RESP 16–20
[2016-10-18] MEDS ORDERED: ACCU-CHEK XX SCH (02:00)
[2016-10-18] MEDS: ACCU-CHEK XX SCH (02:00)
[2016-10-18] MEDS: HYDROmorphONE 1 MG/ML SYG IV PRN ×6 (02:27→23:53)
[2016-10-18 06:51] LABS: ADD SCAN DIFF NO
[2016-10-18 06:55] LABS: BASOPHIL # 0.1 10^3/ul (0.0-0.1); BASOPHILS % 1.5 % (0.0-2.0); EOSINOPHILS # 0.3 10^3/ul (0.0-0.5); EOSINOPHILS % 5.7 % (0.0-7.0); HEMATOCRIT 35.9 % (42.0-52.0); HEMOGLOBIN 11.6 g/dl (14.0-18.0); LYMPHOCYTES # 0.9 10^3/ul (0.8-2.9); LYMPHOCYTES % 20.2 % (15.0-51.0); MEAN CORPUSCULAR HEMOGLOBIN 29.6 pg (29.0-33.0); MEAN CORPUSCULAR HGB CONC 32.3 g/dl (32.0-37.0); MEAN CORPUSCULAR VOLUME 91.6 fl (82.0-101.0); MEAN PLATELET VOLUME 10.9 fl (7.4-10.4); MONOCYTE # 0.4 10^3/ul (0.3-0.9); MONOCYTES % 9.6 % (0.0-11.0); NEUTROPHIL # 2.9 10^3/ul (1.6-7.5); NEUTROPHILS % 62.6 % (39.0-77.0); PLATELET COUNT 215 10^3/UL (140-415); RED BLOOD COUNT 3.92 10^6/ul (4.70-6.10); RED CELL DISTRIBUTION WIDTH 16.2 % (11.5-14.5); WHITE BLOOD COUNT 4.6 10^3/ul (4.8-10.8)
--- NOTE | 2016-10-18 07:02 | CONS ---
Date/Time of Note Date/Time of Note DATE: 10/18/16 TIME: 07:01 Assessment/Plan Assessment/Plan Problems: (1) Diabetes mellitus type 1, controlled, with complications Status: Chronic Comment: He had some modest hypoglycemia yesterday which she at times does do. It is slightly back off on the basal insulin hopefully to avoid the hypoglycemia and not induce higher sugars out of the range. We will follow him along. (2) End stage renal failure on dialysis Status: Chronic Comment: As per nephrology Consultation Date/Type/Reason Admit Date/Time Sep 28, 2016 at 05:39 Initial Consult Date 09/28/16 Type of Consultation: Endocrinology Referring Provider: WILMER RODRIGUEZ MD 24 HR Interval Summary Free Text/Dictation Patient reports the sensation that he can always smell popcorn. Constitutional: no complaints (No fever chills or sweats) Exam/Review of Systems Vital Signs Vitals Vital Signs Date Time Temp Pulse Resp B/P Pulse Ox O2 Delivery O2 Flow Rate FiO2 10/18/16 04:27 98.6 86 16 158/95 100 10/17/16 10:00 Room Air 10/14/16 13:00 10/14/16 11:09 30 Intake and Output 10/17/16 10/17/16 10/18/16 15:00 23:00 07:00 Intake Total 160 ml 450 ml 780 ml Output Total 15 ml 200 ml Balance 145 ml 450 ml 580 ml Exam Constitutional: alert, oriented Respiratory: clear to auscultation, normal air movement Results Result Diagram: 10/18/16 0545 10/17/16 0540 Results 24 hrs Laboratory Tests Test 10/17/16 07:56 10/17/16 12:19 10/17/16 18:05 10/17/16 18:24 Bedside Glucose 134 112 54 L 56 L Test 10/17/16 18:36 10/17/16 19:04 10/17/16 22:07 10/18/16 05:45 Bedside Glucose 48 *L 93 115 White Blood Count 4.6 L Red Blood Count 3.92 L Hemoglobin 11.6 L Hematocrit 35.9 L Mean Corpuscular Volume 91.6 Mean Corpuscular Hemoglobin 29.6 Mean Corpuscular Hemoglobin Concent 32.3 Red Cell Distribution Width 16.2 H Platelet Count 215 Mean Platelet Volume 10.9 H Neutrophils % 62.6 Lymphocytes % 20.2 Monocytes % 9.6 Eosinophils % 5.7 Basophils % 1.5 Nucleated Red Blood Cells % 0.0 Neutrophils # 2.9 Lymphocytes # 0.9 Monocytes # 0.4 Eosinophils # 0.3 Basophils # 0.1 Nucleated Red Blood Cells # 0.0 Medications Medications Current Medications Ondansetron HCl (Zofran Inj) 4 mg Q6H PRN IV NAUSEA AND/OR VOMITING; Start at 06:00 Acetaminophen (Tylenol Liquid) 650 mg Q6H PRN PO PAIN LEVEL 1-3 OR FEVER Last administered on 09/30/16 08:32; Admin Dose 650 MG; Start 09/28/16 at 06:00 Hydromorphone HCl (Dilaudid) 0.5 mg Q4H PRN IV PAIN LEVEL 7-10 Last administered on 10/18/16 02:27; Admin Dose 0.5 MG; Start 09/28/16 at 06:00 Heparin Sodium (Porcine) (Heparin (5000 Units/0.5 ml)) 5,000 unit Q12 SC Last administered on 10/17/16 21:03; Admin Dose 5,000 UNIT; Start 09/28/16 at 09:00 Famotidine (Pepcid Iv) 20 mg DAILY IV Last administered on 10/17/16 09:20; Admin Dose 20 MG; Start 09/28/16 at 09:00 Acetaminophen (Tylenol Liquid) 650 mg Q4H PRN NGT PAIN AND OR ELEVATED TEMP Last administered on 10/06/16 23:16; Admin Dose 650 MG; Start 09/30/16 at 08:30 Prasugrel (Effient) 10 mg DAILY PO Last administered on 10/17/16 09:20; Admin Dose 10 MG; Start 10/02/16 at 09:00 Carvedilol (Coreg) 12.5 mg BID NGT Last administered on 10/17/16 20:54; Admin Dose 12.5 MG; Start 10/02/16 at 21:00 [facility] This patient osorio... PRN PRN XX WOUND CARE; Start 10/06/16 at 09:30 Calcium Carbonate (Ca Carbonate) 1,250 mg BID NGT Last administered on 20:53; Admin Dose 1,250 MG; Start 10/07/16 at 10:30 Aspirin (Aspirin) 81 mg DAILY NGT Last administered on 10/17/16 08:27; Admin Dose 81 MG; Start 10/08/16 at 09:00 Miscellaneous Information 1 ea NOTE XX ; Start 10/10/16 at 15:30 Glucose (Glutose) 15 gm Q15M PRN PO DECREASED GLUCOSE; Start 10/10/16 at 15:30 Glucose (Glutose) 22.5 gm Q15M PRN PO DECREASED GLUCOSE; Start 10/10/16 at 15: 30 Dextrose (D50w Syringe) 25 ml Q15M PRN IV DECREASED GLUCOSE Last administered on 10/17/16 18:39; Admin Dose 25 ML; Start 10/10/16 at 15:30 Dextrose (D50w Syringe) 50 ml Q15M PRN IV DECREASED GLUCOSE Last administered on 10/16/16 05:46; Admin Dose 50 ML; Start 10/10/16 at 15:30 Glucagon (Glucagen) 1 mg Q15M PRN IM DECREASED GLUCOSE; Start 10/10/16 at 15:30 Glucose (Glutose) 15 gm Q15M PRN BUCCAL DECREASED GLUCOSE; Start 10/10/16 at 15 :30 Diphenoxylate HCl/ Atropine (Lomotil Liquid Cup) 10 ml Q8H PRN NGT LOOSE STOOLS ; Start 10/10/16 at 18:00 Dextrose (D50w Syringe) 25 ml Q15M PRN IV Till BS 80 mg/dL or above x2 Last administered on 10/13/16 20:29; Admin Dose 25 ML; Start 10/10/16 at 21:30 Dextrose 50 ml 50 ml Q15M PRN IV Till BS 80 mg/dL or above x2; Start 10/10/16 at 21:30 Linezolid (Zyvox 600mg/D5W (Pmx)) 300 ml @ 300 mls/hr Q12 IVPB Last administered on 10/17/16 20:53; Admin Dose 300 MLS/HR; Start 10/15/16 at 10:30 Hydralazine HCl (Apresoline) 20 mg Q6H PRN IV ELEVATED SYSTOLIC BP; Start at 02:00 Insulin Detemir (Levemir) 10 unit Q12 SC Last administered on 10/17/16t 22:13; Admin Dose 10 UNIT; Start 10/16/16 at 21:00 Diagnostic Test (Pha) (Accu-Chek) 1 02 XX ; Start 10/18/16 at 02:00 DEBBY BURT MD October 18, 2016 07:02
[2016-10-18 07:21] LABS: ALBUMIN 3.6 g/dl (3.3-4.9); ALBUMIN/GLOBULIN RATIO 1.05; BILIRUBIN,INDIRECT 0.2 mg/dl (0-1.1); BILIRUBIN,TOTAL 0.2 mg/dl (0.2-1.3); CREATININE 8.8 mg/dl (0.61-1.24); POTASSIUM 4.6 mmol/L (3.5-5.1)
[2016-10-18] MEDS: INSULIN DETEMIR [LEVEMIR] 3ML CART SC SCH ×2 (08:42→21:25)
[2016-10-18] MEDS: INSULIN ASPART [NOVOLOG] 3 ML PEN SC SCH ×4 (08:42→21:00)
[2016-10-18] MEDS: FAMOTIDINE 20 MG INJ IV SCH (08:47)
[2016-10-18] MEDS: HEPARIN 5,000 UNIT/0.5 ML VIAL SC SCH ×2 (08:52→21:26)
[2016-10-18] MEDS: LINEZOLID 600 MG/D5W (PMX) 300 ML IVPB SCH ×2 (08:54→21:28)
[2016-10-18] MEDS: PRASUGREL HYDROCHLORIDE 10 MG TABLET PO SCH (08:55)
[2016-10-18] MEDS: ASPIRIN 81 MG TAB NGT SCH (08:55)
[2016-10-18] MEDS: CA CARBONATE (250 MG/ML) 5ML CUP NGT SCH ×2 (08:55→21:28)
--- NOTE | 2016-10-18 10:36 | CONS ---
Date/Time of Note Date/Time of Note DATE: 10/18/16 TIME: 10:35 Assessment/Plan Assessment/Plan Additional Assessment/Plan 1. CKD to have HD today 2. DM, sugars rev 3. Respiratory failure sec to CHF, resolved Consultation Date/Type/Reason Admit Date/Time Sep 28, 2016 at 05:39 Initial Consult Date 10/01/16 Type of Consultation: Endocrinology Referring Provider: WILMER ORDRIGUEZ MD Detailed Summary Respiratory: No cough, No shortness of breath Cardiovascular: No chest pain Gastrointestinal: No pain Exam/Review of Systems Vital Signs Vitals Vital Signs Date Time Temp Pulse Resp B/P Pulse Ox O2 Delivery O2 Flow Rate FiO2 10/18/16 08:17 97 10/18/16 07:21 98.2 19 148/91 98 10/17/16 10:00 Room Air 10/14/16 13:00 10/14/16 11:09 30 Intake and Output 10/17/16 10/17/16 10/18/16 15:00 23:00 07:00 Intake Total 160 ml 450 ml 780 ml Output Total 15 ml 225 ml Balance 145 ml 450 ml 555 ml Exam Neck: No jvd Respiratory: diminished breath sounds Cardiovascular: regular rate and rhythm Gastrointestinal: soft Extremities: No edema Results Result Diagram: 10/18/16 0545 10/18/16 0545 Results 24 hrs Laboratory Tests Test 10/17/16 12:19 10/17/16 18:05 10/17/16 18:24 10/17/16 18:36 Bedside Glucose 112 54 L 56 L 48 *L Test 10/17/16 19:04 10/17/16 22:07 10/18/16 05:45 10/18/16 08:10 Bedside Glucose 93 115 193 White Blood Count 4.6 L Red Blood Count 3.92 L Hemoglobin 11.6 L Hematocrit 35.9 L Mean Corpuscular Volume 91.6 Mean Corpuscular Hemoglobin 29.6 Mean Corpuscular Hemoglobin Concent 32.3 Red Cell Distribution Width 16.2 H Platelet Count 215 Mean Platelet Volume 10.9 H Neutrophils % 62.6 Lymphocytes % 20.2 Monocytes % 9.6 Eosinophils % 5.7 Basophils % 1.5 Nucleated Red Blood Cells % 0.0 Neutrophils # 2.9 Lymphocytes # 0.9 Monocytes # 0.4 Eosinophils # 0.3 Basophils # 0.1 Nucleated Red Blood Cells # 0.0 Sodium Level 131 L Potassium Level 4.6 Chloride Level 94 L Carbon Dioxide Level 21 Anion Gap 21 H Blood Urea Nitrogen 45 #H Creatinine 8.80 H Glucose Level 223 H Calcium Level 9.0 Total Bilirubin 0.2 Direct Bilirubin 0.00 Indirect Bilirubin 0.2 Aspartate Amino Transf (AST/SGOT) 31 Alanine Aminotransferase (ALT/SGPT) 95 H Alkaline Phosphatase 245 H Total Protein 7.0 Albumin 3.6 Globulin 3.40 H Albumin/Globulin Ratio 1.05 Medications Medications Current Medications Ondansetron HCl (Zofran Inj) 4 mg Q6H PRN IV NAUSEA AND/OR VOMITING; Start at 06:00 Acetaminophen (Tylenol Liquid) 650 mg Q6H PRN PO PAIN LEVEL 1-3 OR FEVER Last administered on 09/30/16 08:32; Admin Dose 650 MG; Start 09/28/16 at 06:00 Hydromorphone HCl (Dilaudid) 0.5 mg Q4H PRN IV PAIN LEVEL 7-10 Last administered on 10/18/16 07:58; Admin Dose 0.5 MG; Start 09/28/16 at 06:00 Heparin Sodium (Porcine) (Heparin (5000 Units/0.5 ml)) 5,000 unit Q12 SC Last administered on 10/18/16 08:52; Admin Dose 5,000 UNIT; Start 09/28/16 at 09:00 Famotidine (Pepcid Iv) 20 mg DAILY IV Last administered on 10/18/16 08:47; Admin Dose 20 MG; Start 09/28/16 at 09:00 Acetaminophen (Tylenol Liquid) 650 mg Q4H PRN NGT PAIN AND OR ELEVATED TEMP Last administered on 10/06/16 23:16; Admin Dose 650 MG; Start 09/30/16 at 08:30 Prasugrel (Effient) 10 mg DAILY PO Last administered on 10/18/16 08:55; Admin Dose 10 MG; Start 10/02/16 at 09:00 Carvedilol (Coreg) 12.5 mg BID NGT Last administered on 10/17/16 20:54; Admin Dose 12.5 MG; Start 10/02/16 at 21:00 Miscellaneous Information ([facility] This patient osorio... PRN PRN XX WOUND CARE; Start 10/06/16 at 09:30 Calcium Carbonate (Ca Carbonate) 1,250 mg BID NGT Last administered on 08:55; Admin Dose 1,250 MG; Start 10/07/16 at 10:30 Aspirin (Aspirin) 81 mg DAILY NGT Last administered on 10/18/16 08:55; Admin Dose 81 MG; Start 10/08/16 at 09:00 Miscellaneous Information 1 ea NOTE XX ; Start 10/10/16 at 15:30 Glucose (Glutose) 15 gm Q15M PRN PO DECREASED GLUCOSE; Start 10/10/16 at 15:30 Glucose (Glutose) 22.5 gm Q15M PRN PO DECREASED GLUCOSE; Start 10/10/16 at 15: 30 Dextrose (D50w Syringe) 25 ml Q15M PRN IV DECREASED GLUCOSE Last administered on 10/17/16 18:39; Admin Dose 25 ML; Start 10/10/16 at 15:30 Dextrose (D50w Syringe) 50 ml Q15M PRN IV DECREASED GLUCOSE Last administered on 10/16/16 05:46; Admin Dose 50 ML; Start 10/10/16 at 15:30 Glucagon (Glucagen) 1 mg Q15M PRN IM DECREASED GLUCOSE; Start 10/10/16 at 15:30 Glucose (Glutose) 15 gm Q15M PRN BUCCAL DECREASED GLUCOSE; Start 10/10/16 at 15 :30 Diphenoxylate HCl/ Atropine (Lomotil Liquid Cup) 10 ml Q8H PRN NGT LOOSE STOOLS ; Start 10/10/16 at 18:00 Dextrose (D50w Syringe) 25 ml Q15M PRN IV Till BS 80 mg/dL or above x2 Last administered on 10/13/16 20:29; Admin Dose 25 ML; Start 10/10/16 at 21:30 Dextrose 50 ml 50 ml Q15M PRN IV Till BS 80 mg/dL or above x2; Start 10/10/16 at 21:30 Linezolid (Zyvox 600mg/D5W (Pmx)) 300 ml @ 300 mls/hr Q12 IVPB Last administered on 10/18/16 08:54; Admin Dose 300 MLS/HR; Start 10/15/16 at 10:30 Hydralazine HCl (Apresoline) 20 mg Q6H PRN IV ELEVATED SYSTOLIC BP; Start at 02:00 Diagnostic Test (Pha) (Accu-Chek) 1 02 XX ; Start 10/18/16 at 02:00 Insulin Detemir (Levemir) 9 unit Q12 SC Last administered on 10/18/16 08:42; Admin Dose 9 UNIT; Start 10/18/16 at 09:00 MANE LESLIE MD October 18, 2016 10:36
[2016-10-18] MEDS ORDERED: DIPHENHYDRAMINE 50 MG INJ IV ONE (14:30)
--- NOTE | 2016-10-18 14:43 | PN ---
Date/Time of Note Date/Time of Note DATE: 10/18/16 TIME: 14:40 Assessment/Plan VTE Prophylaxis VTE Prophylaxis Intervention: other Lines/Catheters IV [facility] Type ([facility] Porthacath Urinary Cath still in place: No Assessment/Plan Assessment/Plan - VRE bacteremia, continue antibiotics per ID. - per Dr. Allison is following in ID consultation. - End-stage renal disease, hemodialysis dependent. Dr. Hubbard is following the patient in nephrology consultation. Continue hemodialysis per nephrology. - Diabetes mellitus type 1. Dr. Garay is following in endocrinology consultation. - Peripheral arterial disease, status post vascular intervention. Continue heparin. - Anemia of chronic disease. Continue Epogen. - Coronary artery disease. Dr. Stephen is following in cardiology consultation. - Possible healthcare acquired pneumonia. Continue antibiotics per ID. - Transaminitis most likely to shock liver, resolving. Dr. Britt is following in gastroenterology consultation - Acute respiratory failure, resolved. Dr. Nunez is following in pulmonology consultation. - S/p septic shock. Continue heparin for deep venous thrombosis prophylaxis and Pepcid for peptic ulcer disease prophylaxis. Further recommendations based on clinical course. Plan of care discussed with Dr. Rosales. Subjective 24 Hr Interval Summary Free Text/Dictation having HD, wants his benadryl before HD, denies any chest pain, SOB, afebrile, dw staff. Constitutional: no complaints Eyes: no complaints ENT: no complaints Respiratory: no complaints Cardiovascular: no complaints Gastrointestinal: no complaints Genitourinary: no complaints Musculoskeletal: no complaints Skin: no complaints Neurologic: no complaints Endocrine: no complaints Lymphatic: no complaints Exam/Review of Systems Vital Signs Vitals Vital Signs Date Time Temp Pulse Resp B/P Pulse Ox O2 Delivery O2 Flow Rate FiO2 10/18/16 12:42 79 10/18/16 11:09 98.1 19 172/94 98 10/17/16 10:00 Room Air 10/14/16 13:00 10/14/16 11:09 30 Intake and Output 10/17/16 10/17/16 10/18/16 15:00 23:00 07:00 Intake Total 160 ml 450 ml 780 ml Output Total 15 ml 225 ml Balance 145 ml 450 ml 555 ml Exam Constitutional: alert, well developed Psych: no complaints Eyes: nl sclera ENMT: nl external ears & nose Neck: non-tender Cardiovascular: nl pulses Gastrointestinal: non-tender, soft Musculoskeletal: nl extremities to inspection, other Extremities: normal pulses 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: nl speech, other Skin: nl turgor Lymph: nontender Results Result Diagram: 10/18/16 0545 10/18/16 0545 Results 24 hrs Laboratory Tests Test 10/17/16 18:05 10/17/16 18:24 10/17/16 18:36 10/17/16 19:04 Bedside Glucose 54 L 56 L 48 *L 93 Test 10/17/16 22:07 10/18/16 05:45 10/18/16 08:10 10/18/16 11:48 Bedside Glucose 115 193 188 White Blood Count 4.6 L Red Blood Count 3.92 L Hemoglobin 11.6 L Hematocrit 35.9 L Mean Corpuscular Volume 91.6 Mean Corpuscular Hemoglobin 29.6 Mean Corpuscular Hemoglobin Concent 32.3 Red Cell Distribution Width 16.2 H Platelet Count 215 Mean Platelet Volume 10.9 H Neutrophils % 62.6 Lymphocytes % 20.2 Monocytes % 9.6 Eosinophils % 5.7 Basophils % 1.5 Nucleated Red Blood Cells % 0.0 Neutrophils # 2.9 Lymphocytes # 0.9 Monocytes # 0.4 Eosinophils # 0.3 Basophils # 0.1 Nucleated Red Blood Cells # 0.0 Sodium Level 131 L Potassium Level 4.6 Chloride Level 94 L Carbon Dioxide Level 21 Anion Gap 21 H Blood Urea Nitrogen 45 #H Creatinine 8.80 H Glucose Level 223 H Calcium Level 9.0 Total Bilirubin 0.2 Direct Bilirubin 0.00 Indirect Bilirubin 0.2 Aspartate Amino Transf (AST/SGOT) 31 Alanine Aminotransferase (ALT/SGPT) 95 H Alkaline Phosphatase 245 H Total Protein 7.0 Albumin 3.6 Globulin 3.40 H Albumin/Globulin Ratio 1.05 Medications Medications Current Medications Ondansetron HCl (Zofran Inj) 4 mg Q6H PRN IV NAUSEA AND/OR VOMITING; Start at 06:00 Acetaminophen (Tylenol Liquid) 650 mg Q6H PRN PO PAIN LEVEL 1-3 OR FEVER Last administered on 09/30/16t 08:32; Admin Dose 650 MG; Start 09/28/16 at 06:00 Hydromorphone HCl (Dilaudid) 0.5 mg Q4H PRN IV PAIN LEVEL 7-10 Last administered on 10/18/16 11:50; Admin Dose 0.5 MG; Start 09/28/16 at 06:00 Heparin Sodium (Porcine) (Heparin (5000 Units/0.5 ml)) 5,000 unit Q12 SC Last administered on 10/18/16 08:52; Admin Dose 5,000 UNIT; Start 09/28/16 at 09:00 Famotidine (Pepcid Iv) 20 mg DAILY IV Last administered on 10/18/16 08:47; Admin Dose 20 MG; Start 09/28/16 at 09:00 Acetaminophen (Tylenol Liquid) 650 mg Q4H PRN NGT PAIN AND OR ELEVATED TEMP Last administered on 10/06/16 23:16; Admin Dose 650 MG; Start 09/30/16 at 08:30 Prasugrel (Effient) 10 mg DAILY PO Last administered on 10/18/16 08:55; Admin Dose 10 MG; Start 10/02/16 at 09:00 Carvedilol (Coreg) 12.5 mg BID NGT Last administered on 10/17/16 20:54; Admin Dose 12.5 MG; Start 10/02/16 at 21:00 Miscellaneous Information (Pending [facility] Order For Wound Care) This patient osorio... PRN PRN XX WOUND CARE; Start 10/06/16 at 09:30 Calcium Carbonate (Ca Carbonate) 1,250 mg BID NGT Last administered on 08:55; Admin Dose 1,250 MG; Start 10/07/16 at 10:30 Aspirin (Aspirin) 81 mg DAILY NGT Last administered on 10/18/16 08:55; Admin Dose 81 MG; Start 10/08/16 at 09:00 Miscellaneous Information 1 ea NOTE XX ; Start 10/10/16 at 15:30 Glucose (Glutose) 15 gm Q15M PRN PO DECREASED GLUCOSE; Start 10/10/16 at 15:30 Glucose (Glutose) 22.5 gm Q15M PRN PO DECREASED GLUCOSE; Start 10/10/16 at 15: 30 Dextrose (D50w Syringe) 25 ml Q15M PRN IV DECREASED GLUCOSE Last administered on 10/17/16 18:39; Admin Dose 25 ML; Start 10/10/16 at 15:30 Dextrose (D50w Syringe) 50 ml Q15M PRN IV DECREASED GLUCOSE Last administered on 10/16/16 05:46; Admin Dose 50 ML; Start 10/10/16 at 15:30 Glucagon (Glucagen) 1 mg Q15M PRN IM DECREASED GLUCOSE; Start 10/10/16 at 15:30 Glucose (Glutose) 15 gm Q15M PRN BUCCAL DECREASED GLUCOSE; Start 10/10/16 at 15 :30 Diphenoxylate HCl/ Atropine (Lomotil Liquid Cup) 10 ml Q8H PRN NGT LOOSE STOOLS ; Start 10/10/16 at 18:00 Dextrose (D50w Syringe) 25 ml Q15M PRN IV Till BS 80 mg/dL or above x2 Last administered on 10/13/16 20:29; Admin Dose 25 ML; Start 10/10/16 at 21:30 Dextrose 50 ml 50 ml Q15M PRN IV Till BS 80 mg/dL or above x2; Start 10/10/16 at 21:30 Linezolid (Zyvox 600mg/D5W (Pmx)) 300 ml @ 300 mls/hr Q12 IVPB Last administered on 10/18/16 08:54; Admin Dose 300 MLS/HR; Start 10/15/16 at 10:30 Hydralazine HCl (Apresoline) 20 mg Q6H PRN IV ELEVATED SYSTOLIC BP; Start at 02:00 Diagnostic Test (Pha) (Accu-Chek) 1 ea 02 XX ; Start 10/18/16 at 02:00 Insulin Detemir (Levemir) 9 unit Q12 SC Last administered on 10/18/16 08:42; Admin Dose 9 UNIT; Start 10/18/16 at 09:00 PEDRO BENSON October 18, 2016 14:43
--- NOTE | 2016-10-18 16:29 | CONS ---
Date/Time of Note Date/Time of Note DATE: 10/18/16 TIME: 16:28 Consult Date/Type/Reason Admit Date/Time Sep 28, 2016 at 05:39 Initial Consult Date 10/01/16 Type of Consultation: Card and Vascu int Ordering Provider: WILMER RODRIGUEZ MD Objective Vital Signs Date Time Temp Pulse Resp B/P Pulse Ox O2 Delivery O2 Flow Rate FiO2 10/18/16 16:16 77 10/18/16 15:21 98.2 19 158/98 95 10/17/16 10:00 Room Air 10/14/16 13:00 10/14/16 11:09 30 Intake and Output 10/17/16 10/17/16 10/18/16 14:59 22:59 06:59 Intake Total 220 ml 450 ml 780 ml Output Total 15 ml 225 ml Balance 205 ml 450 ml 555 ml Results/Medications Result Diagram: 10/18/16 0545 10/18/16 0545 Results 24 hrs Laboratory Tests Test 10/17/16 18:05 10/17/16 18:24 10/17/16 18:36 10/17/16 19:04 Bedside Glucose 54 L 56 L 48 *L 93 Test 10/17/16 22:07 10/18/16 05:45 10/18/16 08:10 10/18/16 11:48 Bedside Glucose 115 193 188 White Blood Count 4.6 L Red Blood Count 3.92 L Hemoglobin 11.6 L Hematocrit 35.9 L Mean Corpuscular Volume 91.6 Mean Corpuscular Hemoglobin 29.6 Mean Corpuscular Hemoglobin Concent 32.3 Red Cell Distribution Width 16.2 H Platelet Count 215 Mean Platelet Volume 10.9 H Neutrophils % 62.6 Lymphocytes % 20.2 Monocytes % 9.6 Eosinophils % 5.7 Basophils % 1.5 Nucleated Red Blood Cells % 0.0 Neutrophils # 2.9 Lymphocytes # 0.9 Monocytes # 0.4 Eosinophils # 0.3 Basophils # 0.1 Nucleated Red Blood Cells # 0.0 Sodium Level 131 L Potassium Level 4.6 Chloride Level 94 L Carbon Dioxide Level 21 Anion Gap 21 H Blood Urea Nitrogen 45 #H Creatinine 8.80 H Glucose Level 223 H Calcium Level 9.0 Total Bilirubin 0.2 Direct Bilirubin 0.00 Indirect Bilirubin 0.2 Aspartate Amino Transf (AST/SGOT) 31 Alanine Aminotransferase (ALT/SGPT) 95 H Alkaline Phosphatase 245 H Total Protein 7.0 Albumin 3.6 Globulin 3.40 H Albumin/Globulin Ratio 1.05 Medications Current Medications Ondansetron HCl (Zofran Inj) 4 mg Q6H PRN IV NAUSEA AND/OR VOMITING; Start at 06:00 Acetaminophen (Tylenol Liquid) 650 mg Q6H PRN PO PAIN LEVEL 1-3 OR FEVER Last administered on 09/30/16 08:32; Admin Dose 650 MG; Start 09/28/16 at 06:00 Hydromorphone HCl (Dilaudid) 0.5 mg Q4H PRN IV PAIN LEVEL 7-10 Last administered on 10/18/16 15:56; Admin Dose 0.5 MG; Start 09/28/16 at 06:00 Heparin Sodium (Porcine) (Heparin (5000 Units/0.5 ml)) 5,000 unit Q12 SC Last administered on 10/18/16 08:52; Admin Dose 5,000 UNIT; Start 09/28/16 at 09:00 Famotidine (Pepcid Iv) 20 mg DAILY IV Last administered on 10/18/16 08:47; Admin Dose 20 MG; Start 09/28/16 at 09:00 Acetaminophen (Tylenol Liquid) 650 mg Q4H PRN NGT PAIN AND OR ELEVATED TEMP Last administered on 10/06/16 23:16; Admin Dose 650 MG; Start 09/30/16 at 08:30 Prasugrel (Effient) 10 mg DAILY PO Last administered on 10/18/16 08:55; Admin Dose 10 MG; Start 10/02/16 at 09:00 Carvedilol (Coreg) 12.5 mg BID NGT Last administered on 10/17/16 20:54; Admin Dose 12.5 MG; Start 10/02/16 at 21:00 Miscellaneous Information (Pending [facility] Order For Wound Care) This patient osorio... PRN PRN XX WOUND CARE; Start 10/06/16 at 09:30 Calcium Carbonate (Ca Carbonate) 1,250 mg BID NGT Last administered on 08:55; Admin Dose 1,250 MG; Start 10/07/16 at 10:30 Aspirin (Aspirin) 81 mg DAILY NGT Last administered on 10/18/16 08:55; Admin Dose 81 MG; Start 10/08/16 at 09:00 Miscellaneous Information 1 ea NOTE XX ; Start 10/10/16 at 15:30 Glucose (Glutose) 15 gm Q15M PRN PO DECREASED GLUCOSE; Start 10/10/16 at 15:30 Glucose (Glutose) 22.5 gm Q15M PRN PO DECREASED GLUCOSE; Start 10/10/16 at 15: 30 Dextrose (D50w Syringe) 25 ml Q15M PRN IV DECREASED GLUCOSE Last administered on 10/17/16 18:39; Admin Dose 25 ML; Start 10/10/16 at 15:30 Dextrose (D50w Syringe) 50 ml Q15M PRN IV DECREASED GLUCOSE Last administered on 10/16/16 05:46; Admin Dose 50 ML; Start 10/10/16 at 15:30 Glucagon (Glucagen) 1 mg Q15M PRN IM DECREASED GLUCOSE; Start 10/10/16 at 15:30 Glucose (Glutose) 15 gm Q15M PRN BUCCAL DECREASED GLUCOSE; Start 10/10/16 at 15 :30 Diphenoxylate HCl/ Atropine (Lomotil Liquid Cup) 10 ml Q8H PRN NGT LOOSE STOOLS ; Start 10/10/16 at 18:00 Dextrose (D50w Syringe) 25 ml Q15M PRN IV Till BS 80 mg/dL or above x2 Last administered on 10/13/16 20:29; Admin Dose 25 ML; Start 10/10/16 at 21:30 Dextrose 50 ml 50 ml Q15M PRN IV Till BS 80 mg/dL or above x2; Start 10/10/16 at 21:30 Linezolid (Zyvox 600mg/D5W (Pmx)) 300 ml @ 300 mls/hr Q12 IVPB Last administered on 10/18/16 08:54; Admin Dose 300 MLS/HR; Start 10/15/16 at 10:30 Hydralazine HCl (Apresoline) 20 mg Q6H PRN IV ELEVATED SYSTOLIC BP; Start at 02:00 Diagnostic Test (Pha) (Accu-Chek) 1 ea 02 XX ; Start 10/18/16 at 02:00 Insulin Detemir (Levemir) 9 unit Q12 SC Last administered on 5/6/17at 08:42; Admin Dose 9 UNIT; Start 10/18/16 at 09:00 Assessment/Plan Chief Complaint/Hosp Course Patient is know pt to me, he has CAD with s/p PCI of [facility] TECH by me, PTCA and stenting of Right SFA as well as Left SFA, ESRD on HD, HTN, DM on insulin pump, who came in to ER with pulm edema and acute rest failure, intubated in ICU now. mild elevated trop and non ischemic EKG. Problems: Additional Assessment/Plan Doing fine on the floor now stable continue HD Pulm care will .CYNDIE Murray MD October 18, 2016 16:29
--- NOTE | 2016-10-18 20:16 | CONS ---
Date/Time of Note Date/Time of Note DATE: 10/18/16 TIME: 20:15 Assessment/Plan Assessment/Plan Chief Complaint/Hosp Course SUBJECTIVE: No events overnight. The patient is alert, c/o pain, looks comfortable, no fevers. ANTIMICROBIALS: Zyvox. INDWELLINGS: Left chest Port-A-Cath, left upper extremity AV fistula. ALLERGIES: 1. ZITHROMAX 2. ERYTHROMYCIN. PHYSICAL EXAMINATION: GENERAL: This is a chronically ill-appearing, middle-aged white man who is awake, in no distress. HEENT: Head atraumatic, normocephalic. Sclerae anicteric. Buccal mucosa dry. NECK: Supple, trachea midline. CHEST: Rise symmetrical. Breath sounds diminished to bases. HEART: S1, S2. ABDOMEN: Soft, bowel sounds present. EXTREMITIES: With trace edema. ASSESSMENT: 1. Status post sepsis with vancomycin-resistant enterococcus bacteremia. 2. Status post respiratory failure secondary to fluid overload. 3. Diabetes. 4. End-stage renal disease, hemodialysis dependent. 5. Anemia. PLAN: The patient remains stable, will keep him on antibiotics for 2 more days. DW staff Problems: Consultation Date/Type/Reason Admit Date/Time Sep 28, 2016 at 05:39 Initial Consult Date 10/01/16 Type of Consultation: ID Referring Provider: WILMER RODRIGUEZ MD Exam/Review of Systems Vital Signs Vitals Vital Signs Date Time Temp Pulse Resp B/P Pulse Ox O2 Delivery O2 Flow Rate FiO2 10/18/16 19:59 97.7 93 20 143/95 100 10/17/16 10:00 Room Air 10/14/16 13:00 10/14/16 11:09 30 Intake and Output 10/17/16 10/17/16 10/18/16 15:00 23:00 07:00 Intake Total 160 ml 450 ml 780 ml Output Total 15 ml 225 ml Balance 145 ml 450 ml 555 ml Results Result Diagram: 10/18/16 0545 10/18/16 0545 Results 24 hrs Laboratory Tests Test 10/17/16 22:07 10/18/16 05:45 10/18/16 08:10 10/18/16 11:48 Bedside Glucose 115 193 188 White Blood Count 4.6 L Red Blood Count 3.92 L Hemoglobin 11.6 L Hematocrit 35.9 L Mean Corpuscular Volume 91.6 Mean Corpuscular Hemoglobin 29.6 Mean Corpuscular Hemoglobin Concent 32.3 Red Cell Distribution Width 16.2 H Platelet Count 215 Mean Platelet Volume 10.9 H Neutrophils % 62.6 Lymphocytes % 20.2 Monocytes % 9.6 Eosinophils % 5.7 Basophils % 1.5 Nucleated Red Blood Cells % 0.0 Neutrophils # 2.9 Lymphocytes # 0.9 Monocytes # 0.4 Eosinophils # 0.3 Basophils # 0.1 Nucleated Red Blood Cells # 0.0 Sodium Level 131 L Potassium Level 4.6 Chloride Level 94 L Carbon Dioxide Level 21 Anion Gap 21 H Blood Urea Nitrogen 45 #H Creatinine 8.80 H Glucose Level 223 H Calcium Level 9.0 Total Bilirubin 0.2 Direct Bilirubin 0.00 Indirect Bilirubin 0.2 Aspartate Amino Transf (AST/SGOT) 31 Alanine Aminotransferase (ALT/SGPT) 95 H Alkaline Phosphatase 245 H Total Protein 7.0 Albumin 3.6 Globulin 3.40 H Albumin/Globulin Ratio 1.05 Test 10/18/16 17:31 Bedside Glucose 146 Medications Medications Current Medications Ondansetron HCl (Zofran Inj) 4 mg Q6H PRN IV NAUSEA AND/OR VOMITING; Start at 06:00 Acetaminophen (Tylenol Liquid) 650 mg Q6H PRN PO PAIN LEVEL 1-3 OR FEVER Last administered on 09/30/16 08:32; Admin Dose 650 MG; Start 09/28/16 at 06:00 Hydromorphone HCl (Dilaudid) 0.5 mg Q4H PRN IV PAIN LEVEL 7-10 Last administered on 10/18/16 19:53; Admin Dose 0.5 MG; Start 09/28/16 at 06:00 Heparin Sodium (Porcine) (Heparin (5000 Units/0.5 ml)) 5,000 unit Q12 SC Last administered on 10/18/16 08:52; Admin Dose 5,000 UNIT; Start 09/28/16 at 09:00 Famotidine (Pepcid Iv) 20 mg DAILY IV Last administered on 10/18/16 08:47; Admin Dose 20 MG; Start 09/28/16 at 09:00 Acetaminophen (Tylenol Liquid) 650 mg Q4H PRN NGT PAIN AND OR ELEVATED TEMP Last administered on 10/06/16 23:16; Admin Dose 650 MG; Start 09/30/16 at 08:30 Prasugrel (Effient) 10 mg DAILY PO Last administered on 10/18/16 08:55; Admin Dose 10 MG; Start 10/02/16 at 09:00 Carvedilol (Coreg) 12.5 mg BID NGT Last administered on 10/17/16 20:54; Admin Dose 12.5 MG; Start 10/02/16 at 21:00 [facility] This patient osorio... PRN PRN XX WOUND CARE; Start 10/06/16 at 09:30 Calcium Carbonate (Ca Carbonate) 1,250 mg BID NGT Last administered on 08:55; Admin Dose 1,250 MG; Start 10/07/16 at 10:30 Aspirin (Aspirin) 81 mg DAILY NGT Last administered on 10/18/16 08:55; Admin Dose 81 MG; Start 10/08/16 at 09:00 Miscellaneous Information 1 ea NOTE XX ; Start 10/10/16 at 15:30 Glucose (Glutose) 15 gm Q15M PRN PO DECREASED GLUCOSE; Start 10/10/16 at 15:30 Glucose (Glutose) 22.5 gm Q15M PRN PO DECREASED GLUCOSE; Start 10/10/16 at 15: 30 Dextrose (D50w Syringe) 25 ml Q15M PRN IV DECREASED GLUCOSE Last administered on 10/17/16 18:39; Admin Dose 25 ML; Start 10/10/16 at 15:30 Dextrose (D50w Syringe) 50 ml Q15M PRN IV DECREASED GLUCOSE Last administered on 10/16/16 05:46; Admin Dose 50 ML; Start 10/10/16 at 15:30 Glucagon (Glucagen) 1 mg Q15M PRN IM DECREASED GLUCOSE; Start 10/10/16 at 15:30 Glucose (Glutose) 15 gm Q15M PRN BUCCAL DECREASED GLUCOSE; Start 10/10/16 at 15 :30 Diphenoxylate HCl/ Atropine (Lomotil Liquid Cup) 10 ml Q8H PRN NGT LOOSE STOOLS ; Start 10/10/16 at 18:00 Dextrose (D50w Syringe) 25 ml Q15M PRN IV Till BS 80 mg/dL or above x2 Last administered on 10/13/16 20:29; Admin Dose 25 ML; Start 10/10/16 at 21:30 Dextrose 50 ml 50 ml Q15M PRN IV Till BS 80 mg/dL or above x2; Start 10/10/16 at 21:30 Linezolid (Zyvox 600mg/D5W (Pmx)) 300 ml @ 300 mls/hr Q12 IVPB Last administered on 10/18/16 08:54; Admin Dose 300 MLS/HR; Start 10/15/16 at 10:30 Hydralazine HCl (Apresoline) 20 mg Q6H PRN IV ELEVATED SYSTOLIC BP; Start at 02:00 Diagnostic Test (Pha) (Accu-Chek) 1 ea 02 XX ; Start 10/18/16 at 02:00 Insulin Detemir (Levemir) 9 unit Q12 SC Last administered on 10/18/16 08:42; Admin Dose 9 UNIT; Start 10/18/16 at 09:00 BIJAN LONGO NP October 18, 2016 20:16
[2016-10-18] MEDS: CALCITRIOL 1 MCG INJ IV SCH (21:29)
[2016-10-19] VITALS (11 sets, daily range): BP systolic 119–146; BP diastolic 74–84; PULSE 64–95; RESP 18–20
[2016-10-19] MEDS: ACCU-CHEK XX SCH (00:45)
[2016-10-19] MEDS: HYDROmorphONE 1 MG/ML SYG IV PRN ×5 (03:54→20:46)
[2016-10-19] MEDS: ONDANSETRON 4 MG INJ IV PRN ×2 (03:57→17:11)
[2016-10-19 07:12] LABS: ADD SCAN DIFF NO
[2016-10-19 07:18] LABS: BASOPHIL # 0.1 10^3/ul (0.0-0.1); BASOPHILS % 1.6 % (0.0-2.0); EOSINOPHILS # 0.2 10^3/ul (0.0-0.5); EOSINOPHILS % 5.9 % (0.0-7.0); HEMATOCRIT 34.9 % (42.0-52.0); HEMOGLOBIN 11.2 g/dl (14.0-18.0); LYMPHOCYTES % 31.5 % (15.0-51.0); MEAN CORPUSCULAR HEMOGLOBIN 29.5 pg (29.0-33.0); MEAN CORPUSCULAR HGB CONC 32.1 g/dl (32.0-37.0); MEAN CORPUSCULAR VOLUME 91.8 fl (82.0-101.0); MONOCYTE # 0.5 10^3/ul (0.3-0.9); NEUTROPHIL # 1.5 10^3/ul (1.6-7.5); NEUTROPHILS % 45.7 % (39.0-77.0); PLATELET COUNT 186 10^3/UL (140-415); RED CELL DISTRIBUTION WIDTH 16.4 % (11.5-14.5); WHITE BLOOD COUNT 3.2 10^3/ul (4.8-10.8)
[2016-10-19 07:41] LABS: CALCIUM 8.6 mg/dl (8.4-10.2); CREATININE 6.8 mg/dl (0.61-1.24); PHOSPHORUS 6.7 mg/dl (2.5-4.9); POTASSIUM 3.7 mmol/L (3.5-5.1)
[2016-10-19] MEDS: INSULIN ASPART [NOVOLOG] 3 ML PEN SC SCH ×4 (07:55→20:59)
[2016-10-19] MEDS: PRASUGREL HYDROCHLORIDE 10 MG TABLET PO SCH (08:27)
[2016-10-19] MEDS: ASPIRIN 81 MG TAB NGT SCH (08:27)
[2016-10-19] MEDS: FAMOTIDINE 20 MG INJ IV SCH (08:29)
[2016-10-19] MEDS: CA CARBONATE (250 MG/ML) 5ML CUP NGT SCH ×3 (08:29→17:07)
[2016-10-19] MEDS: LINEZOLID 600 MG/D5W (PMX) 300 ML IVPB SCH ×2 (08:29→20:48)
[2016-10-19] MEDS: HEPARIN 5,000 UNIT/0.5 ML VIAL SC SCH ×2 (08:41→20:58)
[2016-10-19] MEDS: INSULIN DETEMIR [LEVEMIR] 3ML CART SC SCH ×2 (09:38→20:59)
--- NOTE | 2016-10-19 09:52 | CONS ---
Date/Time of Note Date/Time of Note DATE: 10/19/16 TIME: 09:51 Assessment/Plan Assessment/Plan Problems: (1) Diabetes mellitus type 1, controlled, with complications Status: Chronic Comment: His control in the hospital using basal bolus has been fair. He has had some variability based on gastroparesis as well as not eating as much. His times of meals have been somewhat erratic. As an outpatient the patient will be referred to get the new pump system and hopefully with a length continuous glucose monitoring closed loop system. This is an outpatient process Consultation Date/Type/Reason Admit Date/Time Sep 28, 2016 at 05:39 Initial Consult Date 09/28/16 Type of Consultation: Endocrinology Reason for Consultation Diabetes mellitus type 1 with multiple complications including diabetic retinopathy and blindness; diabetic nephropathy with end-stage renal disease; peripheral vascular disease; diabetic polyneuropathy. He had been on a pump before. His pump is at the end of warrantee. Patient requests to get the new system/closed loop system Referring Provider: WILMER RODRIGUEZ MD Exam/Review of Systems Vital Signs Vitals Vital Signs Date Time Temp Pulse Resp B/P Pulse Ox O2 Delivery O2 Flow Rate FiO2 10/19/16 08:16 71 10/19/16 07:22 98.2 18 139/74 98 10/17/16 10:00 Room Air Intake and Output 10/18/16 10/18/16 10/19/16 15:00 23:00 07:00 Intake Total 300 ml 1430 ml Output Total 3500 ml Balance 300 ml -2070 ml Exam Constitutional: alert Respiratory: clear to auscultation, normal air movement Results Result Diagram: 10/19/16 0610 10/19/16 0610 Results 24 hrs Laboratory Tests Test 10/18/16 11:48 10/18/16 17:31 10/18/16 21:21 10/19/16 06:10 Bedside Glucose 188 146 177 White Blood Count 3.2 #L Red Blood Count 3.80 L Hemoglobin 11.2 L Hematocrit 34.9 L Mean Corpuscular Volume 91.8 Mean Corpuscular Hemoglobin 29.5 Mean Corpuscular Hemoglobin Concent 32.1 Red Cell Distribution Width 16.4 H Platelet Count 186 Mean Platelet Volume 11.0 H Neutrophils % 45.7 Lymphocytes % 31.5 Monocytes % 15.0 H Eosinophils % 5.9 Basophils % 1.6 Nucleated Red Blood Cells % 0.0 Neutrophils # 1.5 L Lymphocytes # 1.0 Monocytes # 0.5 Eosinophils # 0.2 Basophils # 0.1 Nucleated Red Blood Cells # 0.0 Sodium Level 135 Potassium Level 3.7 Chloride Level 96 L Carbon Dioxide Level 29 Anion Gap 14 # Blood Urea Nitrogen 33 #H Creatinine 6.80 #H Glucose Level 53 #L Calcium Level 8.6 Phosphorus Level 6.7 H Test 10/19/16 08:05 10/19/16 08:26 10/19/16 08:53 Bedside Glucose 64 L 65 L 90 Medications Medications Current Medications Ondansetron HCl (Zofran Inj) 4 mg Q6H PRN IV NAUSEA AND/OR VOMITING Last administered on 10/19/16 03:57; Admin Dose 4 MG; Start 09/28/16 at 06:00 Acetaminophen (Tylenol Liquid) 650 mg Q6H PRN PO PAIN LEVEL 1-3 OR FEVER Last administered on 09/30/16 08:32; Admin Dose 650 MG; Start 09/28/16 at 06:00 Hydromorphone HCl (Dilaudid) 0.5 mg Q4H PRN IV PAIN LEVEL 7-10 Last administered on 10/19/16 08:29; Admin Dose 0.5 MG; Start 09/28/16 at 06:00 Heparin Sodium (Porcine) (Heparin (5000 Units/0.5 ml)) 5,000 unit Q12 SC Last administered on 10/19/16 08:41; Admin Dose 5,000 UNIT; Start 09/28/16 at 09:00 Famotidine (Pepcid Iv) 20 mg DAILY IV Last administered on 10/19/16 08:29; Admin Dose 20 MG; Start 09/28/16 at 09:00 Acetaminophen (Tylenol Liquid) 650 mg Q4H PRN NGT PAIN AND OR ELEVATED TEMP Last administered on 10/06/16 23:16; Admin Dose 650 MG; Start 09/30/16 at 08:30 Prasugrel (Effient) 10 mg DAILY PO Last administered on 10/19/16 08:27; Admin Dose 10 MG; Start 10/02/16 at 09:00 Carvedilol (Coreg) 12.5 mg BID NGT Last administered on 10/19/16 08:27; Admin Dose 12.5 MG; Start 10/02/16 at 21:00 Miscellaneous Information (Pending [facility] Order For Wound Care) This patient osorio... PRN PRN XX WOUND CARE; Start 10/06/16 at 09:30 Calcium Carbonate (Ca Carbonate) 1,250 mg BID NGT Last administered on 08:29; Admin Dose 1,250 MG; Start 10/07/16 at 10:30 Aspirin (Aspirin) 81 mg DAILY NGT Last administered on 10/19/16 08:27; Admin Dose 81 MG; Start 10/08/16 at 09:00 Miscellaneous Information 1 ea NOTE XX ; Start 10/10/16 at 15:30 Glucose (Glutose) 15 gm Q15M PRN PO DECREASED GLUCOSE; Start 10/10/16 at 15:30 Glucose (Glutose) 22.5 gm Q15M PRN PO DECREASED GLUCOSE; Start 10/10/16 at 15: 30 Dextrose (D50w Syringe) 25 ml Q15M PRN IV DECREASED GLUCOSE Last administered on 10/17/16 18:39; Admin Dose 25 ML; Start 10/10/16 at 15:30 Dextrose (D50w Syringe) 50 ml Q15M PRN IV DECREASED GLUCOSE Last administered on 10/16/16 05:46; Admin Dose 50 ML; Start 10/10/16 at 15:30 Glucagon (Glucagen) 1 mg Q15M PRN IM DECREASED GLUCOSE; Start 10/10/16 at 15:30 Glucose (Glutose) 15 gm Q15M PRN BUCCAL DECREASED GLUCOSE; Start 10/10/16 at 15 :30 Diphenoxylate HCl/ Atropine (Lomotil Liquid Cup) 10 ml Q8H PRN NGT LOOSE STOOLS ; Start 10/10/16 at 18:00 Dextrose (D50w Syringe) 25 ml Q15M PRN IV Till BS 80 mg/dL or above x2 Last administered on 10/13/16 20:29; Admin Dose 25 ML; Start 10/10/16 at 21:30 Dextrose 50 ml 50 ml Q15M PRN IV Till BS 80 mg/dL or above x2; Start 10/10/16 at 21:30 Linezolid (Zyvox 600mg/D5W (Pmx)) 300 ml @ 300 mls/hr Q12 IVPB Last administered on 10/19/16 08:29; Admin Dose 300 MLS/HR; Start 10/15/16 at 10:30 Hydralazine HCl (Apresoline) 20 mg Q6H PRN IV ELEVATED SYSTOLIC BP; Start at 02:00 Diagnostic Test (Pha) (Accu-Chek) 1 ea 02 XX ; Start 10/18/16 at 02:00 Insulin Detemir (Levemir) 6 unit Q12 SC Last administered on 10/19/16 09:38; Admin Dose 6 UNIT; Start 10/19/16 at 09:00 DEBBY BURT MD October 19, 2016 09:52
--- NOTE | 2016-10-19 10:31 | CONS ---
Date/Time of Note Date/Time of Note DATE: 10/19/16 TIME: 10:29 Assessment/Plan Assessment/Plan Additional Assessment/Plan 1. CKD, to have HD today. 2. CHF resolved 3. P is sl inc, will inc P binder 4. Mild confusion, will rev meds Consultation Date/Type/Reason Admit Date/Time Sep 28, 2016 at 05:39 Initial Consult Date 10/01/16 Type of Consultation: Endocrinology Referring Provider: WILMER RODRIGUEZ MD Detailed Summary Respiratory: cough, No shortness of breath Cardiovascular: No chest pain Gastrointestinal: no complaints Exam/Review of Systems Vital Signs Vitals Vital Signs Date Time Temp Pulse Resp B/P Pulse Ox O2 Delivery O2 Flow Rate FiO2 10/19/16 08:16 71 10/19/16 07:22 98.2 18 139/74 98 10/17/16 10:00 Room Air Intake and Output 10/18/16 10/18/16 10/19/16 15:00 23:00 07:00 Intake Total 300 ml 1430 ml Output Total 3500 ml Balance 300 ml -2070 ml Exam Neck: No jvd Respiratory: clear to auscultation, diminished breath sounds Cardiovascular: regular rate and rhythm Gastrointestinal: soft Extremities: No edema Results Result Diagram: 10/19/16 0610 10/19/16 0610 Results 24 hrs Laboratory Tests Test 10/18/16 11:48 10/18/16 17:31 10/18/16 21:21 10/19/16 06:10 Bedside Glucose 188 146 177 White Blood Count 3.2 #L Red Blood Count 3.80 L Hemoglobin 11.2 L Hematocrit 34.9 L Mean Corpuscular Volume 91.8 Mean Corpuscular Hemoglobin 29.5 Mean Corpuscular Hemoglobin Concent 32.1 Red Cell Distribution Width 16.4 H Platelet Count 186 Mean Platelet Volume 11.0 H Neutrophils % 45.7 Lymphocytes % 31.5 Monocytes % 15.0 H Eosinophils % 5.9 Basophils % 1.6 Nucleated Red Blood Cells % 0.0 Neutrophils # 1.5 L Lymphocytes # 1.0 Monocytes # 0.5 Eosinophils # 0.2 Basophils # 0.1 Nucleated Red Blood Cells # 0.0 Sodium Level 135 Potassium Level 3.7 Chloride Level 96 L Carbon Dioxide Level 29 Anion Gap 14 # Blood Urea Nitrogen 33 #H Creatinine 6.80 #H Glucose Level 53 #L Calcium Level 8.6 Phosphorus Level 6.7 H Test 10/19/16 08:05 10/19/16 08:26 10/19/16 08:53 Bedside Glucose 64 L 65 L 90 Medications Medications Current Medications Ondansetron HCl (Zofran Inj) 4 mg Q6H PRN IV NAUSEA AND/OR VOMITING Last administered on 10/19/16 03:57; Admin Dose 4 MG; Start 09/28/16 at 06:00 Acetaminophen (Tylenol Liquid) 650 mg Q6H PRN PO PAIN LEVEL 1-3 OR FEVER Last administered on 09/30/16 08:32; Admin Dose 650 MG; Start 09/28/16 at 06:00 Hydromorphone HCl (Dilaudid) 0.5 mg Q4H PRN IV PAIN LEVEL 7-10 Last administered on 10/19/16 08:29; Admin Dose 0.5 MG; Start 09/28/16 at 06:00 Heparin Sodium (Porcine) (Heparin (5000 Units/0.5 ml)) 5,000 unit Q12 SC Last administered on 10/19/16 08:41; Admin Dose 5,000 UNIT; Start 09/28/16 at 09:00 Famotidine (Pepcid Iv) 20 mg DAILY IV Last administered on 10/19/16 08:29; Admin Dose 20 MG; Start 09/28/16 at 09:00 Acetaminophen (Tylenol Liquid) 650 mg Q4H PRN NGT PAIN AND OR ELEVATED TEMP Last administered on 10/06/16 23:16; Admin Dose 650 MG; Start 09/30/16 at 08:30 Prasugrel (Effient) 10 mg DAILY PO Last administered on 10/19/16 08:27; Admin Dose 10 MG; Start 10/02/16 at 09:00 Carvedilol (Coreg) 12.5 mg BID NGT Last administered on 10/19/16 08:27; Admin Dose 12.5 MG; Start 10/02/16 at 21:00 Miscellaneous Information (Pending [facility] Order For Wound Care) This patient osorio... PRN PRN XX WOUND CARE; Start 10/06/16 at 09:30 Calcium Carbonate (Ca Carbonate) 1,250 mg BID NGT Last administered on 08:29; Admin Dose 1,250 MG; Start 10/07/16 at 10:30 Aspirin (Aspirin) 81 mg DAILY NGT Last administered on 10/19/16 08:27; Admin Dose 81 MG; Start 10/08/16 at 09:00 Miscellaneous Information 1 ea NOTE XX ; Start 10/10/16 at 15:30 Glucose (Glutose) 15 gm Q15M PRN PO DECREASED GLUCOSE; Start 10/10/16 at 15:30 Glucose (Glutose) 22.5 gm Q15M PRN PO DECREASED GLUCOSE; Start 10/10/16 at 15: 30 Dextrose (D50w Syringe) 25 ml Q15M PRN IV DECREASED GLUCOSE Last administered on 10/17/16 18:39; Admin Dose 25 ML; Start 10/10/16 at 15:30 Dextrose (D50w Syringe) 50 ml Q15M PRN IV DECREASED GLUCOSE Last administered on 10/16/16 05:46; Admin Dose 50 ML; Start 10/10/16 at 15:30 Glucagon (Glucagen) 1 mg Q15M PRN IM DECREASED GLUCOSE; Start 10/10/16 at 15:30 Glucose (Glutose) 15 gm Q15M PRN BUCCAL DECREASED GLUCOSE; Start 10/10/16 at 15 :30 Diphenoxylate HCl/ Atropine (Lomotil Liquid Cup) 10 ml Q8H PRN NGT LOOSE STOOLS ; Start 10/10/16 at 18:00 Dextrose (D50w Syringe) 25 ml Q15M PRN IV Till BS 80 mg/dL or above x2 Last administered on 10/13/16 20:29; Admin Dose 25 ML; Start 10/10/16 at 21:30 Dextrose 50 ml 50 ml Q15M PRN IV Till BS 80 mg/dL or above x2; Start 10/10/16 at 21:30 Linezolid (Zyvox 600mg/D5W (Pmx)) 300 ml @ 300 mls/hr Q12 IVPB Last administered on 10/19/16 08:29; Admin Dose 300 MLS/HR; Start 10/15/16 at 10:30 Hydralazine HCl (Apresoline) 20 mg Q6H PRN IV ELEVATED SYSTOLIC BP; Start at 02:00 Diagnostic Test (Pha) (Accu-Chek) 1 ea 02 XX ; Start 10/18/16 at 02:00 Insulin Detemir (Levemir) 6 unit Q12 SC Last administered on 10/19/16t 09:38; Admin Dose 6 UNIT; Start 10/19/16 at 09:00 MANE LESLIE MD October 19, 2016 10:31
--- NOTE | 2016-10-19 15:11 | PN ---
Date/Time of Note Date/Time of Note DATE: 10/19/16 TIME: 15:10 Assessment/Plan VTE Prophylaxis VTE Prophylaxis Intervention: other Lines/Catheters IV Catheter Type (from [facility]): brian cath Urinary Cath still in place: No Assessment/Plan Assessment/Plan - VRE bacteremia, continue antibiotics per ID. - per Dr. Allison is following in ID consultation. - End-stage renal disease, hemodialysis dependent. Dr. Hubbard is following the patient in nephrology consultation. Continue hemodialysis per nephrology. - Diabetes mellitus type 1. Dr. Garay is following in endocrinology consultation. - Peripheral arterial disease, status post vascular intervention. Continue heparin. - Anemia of chronic disease. Continue Epogen. - Coronary artery disease. Dr. Stephen is following in cardiology consultation. - Possible healthcare acquired pneumonia. Continue antibiotics per ID. - Transaminitis most likely to shock liver, resolving. Dr. Britt is following in gastroenterology consultation - Acute respiratory failure, resolved. Dr. Nunez is following in pulmonology consultation. - S/p septic shock. - Heparin for deep venous thrombosis prophylaxis and Pepcid for peptic ulcer disease prophylaxis. Further recommendations based on clinical course. Plan of care discussed with Dr. Rosales. Subjective 24 Hr Interval Summary Free Text/Dictation patient is sitting up in bed, seems comfortable, denies any chest pain, shortness of breath, fever. appetite is better. tolerates dialysis, dw staff- no acute events reported overnight. Constitutional: improved Eyes: no complaints ENT: no complaints Respiratory: no complaints Cardiovascular: no complaints Gastrointestinal: no complaints Genitourinary: no complaints Musculoskeletal: no complaints Skin: no complaints Neurologic: no complaints Endocrine: no complaints Lymphatic: no complaints Psychological: no complaints Immunologic: no complaints Exam/Review of Systems Vital Signs Vitals Vital Signs Date Time Temp Pulse Resp B/P Pulse Ox O2 Delivery O2 Flow Rate FiO2 10/19/16 15:08 98.4 74 18 129/78 100 10/17/16 10:00 Room Air Intake and Output 10/18/16 10/18/16 10/19/16 15:00 23:00 07:00 Intake Total 300 ml 1430 ml Output Total 3500 ml Balance 300 ml -2070 ml Exam Constitutional: alert, oriented Psych: nl mood/affect Head: atraumatic Eyes: EOMI ENMT: nl external ears & nose Neck: non-tender Respiratory: clear to auscultation ( ) Cardiovascular: nl pulses Gastrointestinal: non-tender, soft Musculoskeletal: nl extremities to inspection Extremities: normal pulses 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: nl mental status, nl speech Skin: nl turgor Lymph: nl lymph nodes Results Result Diagram: 10/19/16 0610 10/19/16 0610 Results 24 hrs Laboratory Tests Test 10/18/16 17:31 10/18/16 21:21 10/19/16 06:10 10/19/16 08:05 Bedside Glucose 146 177 64 L White Blood Count 3.2 #L Red Blood Count 3.80 L Hemoglobin 11.2 L Hematocrit 34.9 L Mean Corpuscular Volume 91.8 Mean Corpuscular Hemoglobin 29.5 Mean Corpuscular Hemoglobin Concent 32.1 Red Cell Distribution Width 16.4 H Platelet Count 186 Mean Platelet Volume 11.0 H Neutrophils % 45.7 Lymphocytes % 31.5 Monocytes % 15.0 H Eosinophils % 5.9 Basophils % 1.6 Nucleated Red Blood Cells % 0.0 Neutrophils # 1.5 L Lymphocytes # 1.0 Monocytes # 0.5 Eosinophils # 0.2 Basophils # 0.1 Nucleated Red Blood Cells # 0.0 Sodium Level 135 Potassium Level 3.7 Chloride Level 96 L Carbon Dioxide Level 29 Anion Gap 14 # Blood Urea Nitrogen 33 #H Creatinine 6.80 #H Glucose Level 53 #L Calcium Level 8.6 Phosphorus Level 6.7 H Test 10/19/16 08:26 10/19/16 08:53 10/19/16 12:17 Bedside Glucose 65 L 90 186 Medications Medications Current Medications Ondansetron HCl (Zofran Inj) 4 mg Q6H PRN IV NAUSEA AND/OR VOMITING Last administered on 10/19/16 03:57; Admin Dose 4 MG; Start 09/28/16 at 06:00 Acetaminophen (Tylenol Liquid) 650 mg Q6H PRN PO PAIN LEVEL 1-3 OR FEVER Last administered on 09/30/16 08:32; Admin Dose 650 MG; Start 09/28/16 at 06:00 Hydromorphone HCl (Dilaudid) 0.5 mg Q4H PRN IV PAIN LEVEL 7-10 Last administered on 10/19/16 12:29; Admin Dose 0.5 MG; Start 09/28/16 at 06:00 Heparin Sodium (Porcine) (Heparin (5000 Units/0.5 ml)) 5,000 unit Q12 SC Last administered on 10/19/16 08:41; Admin Dose 5,000 UNIT; Start 09/28/16 at 09:00 Famotidine (Pepcid Iv) 20 mg DAILY IV Last administered on 10/19/16 08:29; Admin Dose 20 MG; Start 09/28/16 at 09:00 Acetaminophen (Tylenol Liquid) 650 mg Q4H PRN NGT PAIN AND OR ELEVATED TEMP Last administered on 10/06/16 23:16; Admin Dose 650 MG; Start 09/30/16 at 08:30 Prasugrel (Effient) 10 mg DAILY PO Last administered on 10/19/16 08:27; Admin Dose 10 MG; Start 10/02/16 at 09:00 Carvedilol (Coreg) 12.5 mg BID NGT Last administered on 10/19/16 08:27; Admin Dose 12.5 MG; Start 10/02/16 at 21:00 [facility]isc[facility] This patient osorio... PRN PRN XX WOUND CARE; Start 10/06/16 at 09:30 Aspirin (Aspirin) 81 mg DAILY NGT Last administered on 10/19/16 08:27; Admin Dose 81 MG; Start 10/08/16 at 09:00 Miscellaneous Information 1 ea NOTE XX ; Start 10/10/16 at 15:30 Glucose (Glutose) 15 gm Q15M PRN PO DECREASED GLUCOSE; Start 10/10/16 at 15:30 Glucose (Glutose) 22.5 gm Q15M PRN PO DECREASED GLUCOSE; Start 10/10/16 at 15: 30 Dextrose (D50w Syringe) 25 ml Q15M PRN IV DECREASED GLUCOSE Last administered on 10/17/16 18:39; Admin Dose 25 ML; Start 10/10/16 at 15:30 Dextrose (D50w Syringe) 50 ml Q15M PRN IV DECREASED GLUCOSE Last administered on 10/16/16 05:46; Admin Dose 50 ML; Start 10/10/16 at 15:30 Glucagon (Glucagen) 1 mg Q15M PRN IM DECREASED GLUCOSE; Start 10/10/16 at 15:30 Glucose (Glutose) 15 gm Q15M PRN BUCCAL DECREASED GLUCOSE; Start 10/10/16 at 15 :30 Diphenoxylate HCl/ Atropine (Lomotil Liquid Cup) 10 ml Q8H PRN NGT LOOSE STOOLS ; Start 10/10/16 at 18:00 Dextrose (D50w Syringe) 25 ml Q15M PRN IV Till BS 80 mg/dL or above x2 Last administered on 10/13/16 20:29; Admin Dose 25 ML; Start 10/10/16 at 21:30 Dextrose 50 ml 50 ml Q15M PRN IV Till BS 80 mg/dL or above x2; Start 10/10/16 at 21:30 Linezolid (Zyvox 600mg/D5W (Pmx)) 300 ml @ 300 mls/hr Q12 IVPB Last administered on 10/19/16 08:29; Admin Dose 300 MLS/HR; Start 10/15/16 at 10:30 Hydralazine HCl (Apresoline) 20 mg Q6H PRN IV ELEVATED SYSTOLIC BP; Start at 02:00 Diagnostic Test (Pha) (Accu-Chek) 1 ea 02 XX ; Start 10/18/16 at 02:00 Insulin Detemir (Levemir) 6 unit Q12 SC Last administered on 10/19/16 09:38; Admin Dose 6 UNIT; Start 10/19/16 at 09:00 PEDRO BENSON October 19, 2016 15:11
--- NOTE | 2016-10-19 16:17 | CONS ---
Date/Time of Note Date/Time of Note DATE: 10/19/16 TIME: 16:17 Assessment/Plan Assessment/Plan Chief Complaint/Hosp Course SUBJECTIVE: No events overnight. The patient looks comfortable, no fevers. ANTIMICROBIALS: Zyvox. INDWELLINGS: Left chest Port-A-Cath, left upper extremity AV fistula. ALLERGIES: 1. ZITHROMAX 2. ERYTHROMYCIN. PHYSICAL EXAMINATION: GENERAL: This is a chronically ill-appearing, middle-aged white man who is awake, in no distress. HEENT: Head atraumatic, normocephalic. Sclerae anicteric. Buccal mucosa dry. NECK: Supple, trachea midline. CHEST: Rise symmetrical. Breath sounds diminished to bases. HEART: S1, S2. ABDOMEN: Soft, bowel sounds present. EXTREMITIES: With trace edema. ASSESSMENT: 1. Status post sepsis with vancomycin-resistant enterococcus bacteremia. 2. Status post respiratory failure secondary to fluid overload. 3. Diabetes. 4. End-stage renal disease, hemodialysis dependent. 5. Anemia. PLAN: The patient remains stable, will dc abx in am. DW staff Problems: Consultation Date/Type/Reason Admit Date/Time Sep 28, 2016 at 05:39 Initial Consult Date 10/01/16 Type of Consultation: ID Referring Provider: WILMER RODRIGUEZ MD Exam/Review of Systems Vital Signs Vitals Vital Signs Date Time Temp Pulse Resp B/P Pulse Ox O2 Delivery O2 Flow Rate FiO2 10/19/16 16:11 64 10/19/16 15:08 98.4 18 129/78 100 10/17/16 10:00 Room Air Intake and Output 10/18/16 10/18/16 10/19/16 15:00 23:00 07:00 Intake Total 300 ml 1430 ml Output Total 3500 ml Balance 300 ml -2070 ml Results Result Diagram: 10/19/16 0610 10/19/16 0610 Results 24 hrs Laboratory Tests Test 10/18/16 17:31 10/18/16 21:21 10/19/16 06:10 10/19/16 08:05 Bedside Glucose 146 177 64 L White Blood Count 3.2 #L Red Blood Count 3.80 L Hemoglobin 11.2 L Hematocrit 34.9 L Mean Corpuscular Volume 91.8 Mean Corpuscular Hemoglobin 29.5 Mean Corpuscular Hemoglobin Concent 32.1 Red Cell Distribution Width 16.4 H Platelet Count 186 Mean Platelet Volume 11.0 H Neutrophils % 45.7 Lymphocytes % 31.5 Monocytes % 15.0 H Eosinophils % 5.9 Basophils % 1.6 Nucleated Red Blood Cells % 0.0 Neutrophils # 1.5 L Lymphocytes # 1.0 Monocytes # 0.5 Eosinophils # 0.2 Basophils # 0.1 Nucleated Red Blood Cells # 0.0 Sodium Level 135 Potassium Level 3.7 Chloride Level 96 L Carbon Dioxide Level 29 Anion Gap 14 # Blood Urea Nitrogen 33 #H Creatinine 6.80 #H Glucose Level 53 #L Calcium Level 8.6 Phosphorus Level 6.7 H Test 10/19/16 08:26 10/19/16 08:53 10/19/16 12:17 Bedside Glucose 65 L 90 186 Medications Medications Current Medications Ondansetron HCl (Zofran Inj) 4 mg Q6H PRN IV NAUSEA AND/OR VOMITING Last administered on 10/19/16 03:57; Admin Dose 4 MG; Start 09/28/16 at 06:00 Acetaminophen (Tylenol Liquid) 650 mg Q6H PRN PO PAIN LEVEL 1-3 OR FEVER Last administered on 09/30/16 08:32; Admin Dose 650 MG; Start 09/28/16 at 06:00 Hydromorphone HCl (Dilaudid) 0.5 mg Q4H PRN IV PAIN LEVEL 7-10 Last administered on 10/19/16 12:29; Admin Dose 0.5 MG; Start 09/28/16 at 06:00 Heparin Sodium (Porcine) (Heparin (5000 Units/0.5 ml)) 5,000 unit Q12 SC Last administered on 10/19/16 08:41; Admin Dose 5,000 UNIT; Start 09/28/16 at 09:00 Famotidine (Pepcid Iv) 20 mg DAILY IV Last administered on 10/19/16 08:29; Admin Dose 20 MG; Start 09/28/16 at 09:00 Acetaminophen (Tylenol Liquid) 650 mg Q4H PRN NGT PAIN AND OR ELEVATED TEMP Last administered on 10/06/16 23:16; Admin Dose 650 MG; Start 09/30/16 at 08:30 Prasugrel (Effient) 10 mg DAILY PO Last administered on 10/19/16 08:27; Admin Dose 10 MG; Start 10/02/16 at 09:00 Carvedilol (Coreg) 12.5 mg BID NGT Last administered on 10/19/16 08:27; Admin Dose 12.5 MG; Start 10/02/16 at 21:00 Miscellaneous Information (Pending [facility] Order For Wound Care) This patient osorio... PRN PRN XX WOUND CARE; Start 10/06/16 at 09:30 Aspirin (Aspirin) 81 mg DAILY NGT Last administered on 10/19/16 08:27; Admin Dose 81 MG; Start 10/08/16 at 09:00 Miscellaneous Information 1 ea NOTE XX ; Start 10/10/16 at 15:30 Glucose (Glutose) 15 gm Q15M PRN PO DECREASED GLUCOSE; Start 10/10/16 at 15:30 Glucose (Glutose) 22.5 gm Q15M PRN PO DECREASED GLUCOSE; Start 10/10/16 at 15: 30 Dextrose (D50w Syringe) 25 ml Q15M PRN IV DECREASED GLUCOSE Last administered on 10/17/16 18:39; Admin Dose 25 ML; Start 10/10/16 at 15:30 Dextrose (D50w Syringe) 50 ml Q15M PRN IV DECREASED GLUCOSE Last administered on 10/16/16 05:46; Admin Dose 50 ML; Start 10/10/16 at 15:30 Glucagon (Glucagen) 1 mg Q15M PRN IM DECREASED GLUCOSE; Start 10/10/16 at 15:30 Glucose (Glutose) 15 gm Q15M PRN BUCCAL DECREASED GLUCOSE; Start 10/10/16 at 15 :30 Diphenoxylate HCl/ Atropine (Lomotil Liquid Cup) 10 ml Q8H PRN NGT LOOSE STOOLS ; Start 10/10/16 at 18:00 Dextrose (D50w Syringe) 25 ml Q15M PRN IV Till BS 80 mg/dL or above x2 Last administered on 10/13/16 20:29; Admin Dose 25 ML; Start 10/10/16 at 21:30 Dextrose 50 ml 50 ml Q15M PRN IV Till BS 80 mg/dL or above x2; Start 10/10/16 at 21:30 Linezolid (Zyvox 600mg/D5W (Pmx)) 300 ml @ 300 mls/hr Q12 IVPB Last administered on 10/19/16 08:29; Admin Dose 300 MLS/HR; Start 10/15/16 at 10:30 Hydralazine HCl (Apresoline) 20 mg Q6H PRN IV ELEVATED SYSTOLIC BP; Start at 02:00 Diagnostic Test (Pha) (Accu-Chek) 1 ea 02 XX ; Start 10/18/16 at 02:00 Insulin Detemir (Levemir) 6 unit Q12 SC Last administered on 10/19/16 09:38; Admin Dose 6 UNIT; Start 10/19/16 at 09:00 BIJAN LONGO NP October 19, 2016 16:17
[2016-10-20] VITALS (20 sets, daily range): BP systolic 91–163; BP diastolic 48–92; PULSE 68–92; RESP 16–20
[2016-10-20] MEDS: HYDROmorphONE 1 MG/ML SYG IV PRN ×6 (00:49→21:37)
[2016-10-20] MEDS: ACCU-CHEK XX SCH (02:13)
[2016-10-20 07:27] LABS: ADD SCAN DIFF NO
[2016-10-20 07:41] LABS: BASOPHIL # 0.1 10^3/ul (0.0-0.1); BASOPHILS % 1.5 % (0.0-2.0); EOSINOPHILS # 0.3 10^3/ul (0.0-0.5); EOSINOPHILS % 7.9 % (0.0-7.0); HEMATOCRIT 33.9 % (42.0-52.0); LYMPHOCYTES # 0.8 10^3/ul (0.8-2.9); MEAN CORPUSCULAR HEMOGLOBIN 29.5 pg (29.0-33.0); MEAN CORPUSCULAR HGB CONC 32.4 g/dl (32.0-37.0); MEAN CORPUSCULAR VOLUME 90.9 fl (82.0-101.0); MEAN PLATELET VOLUME 11.2 fl (7.4-10.4); MONOCYTE # 0.6 10^3/ul (0.3-0.9); MONOCYTES % 16.8 % (0.0-11.0); NEUTROPHIL # 1.6 10^3/ul (1.6-7.5); NEUTROPHILS % 48.8 % (39.0-77.0); PLATELET COUNT 173 10^3/UL (140-415); RED BLOOD COUNT 3.73 10^6/ul (4.70-6.10); RED CELL DISTRIBUTION WIDTH 16.2 % (11.5-14.5); WHITE BLOOD COUNT 3.3 10^3/ul (4.8-10.8)
[2016-10-20 07:54] LABS: POTASSIUM 4.3 mmol/L (3.5-5.1)
[2016-10-20 07:56] LABS: CREATININE 9.12 mg/dl (0.61-1.24)
[2016-10-20 07:57] LABS: CALCIUM 8.2 mg/dl (8.4-10.2)
[2016-10-20] MEDS: PRASUGREL HYDROCHLORIDE 10 MG TABLET PO SCH (08:17)
[2016-10-20] MEDS: ASPIRIN 81 MG TAB NGT SCH (08:17)
[2016-10-20] MEDS: CA CARBONATE (250 MG/ML) 5ML CUP NGT SCH ×3 (08:17→17:13)
[2016-10-20] MEDS: FAMOTIDINE 20 MG INJ IV SCH (08:18)
[2016-10-20] MEDS: HEPARIN 5,000 UNIT/0.5 ML VIAL SC SCH ×2 (08:20→21:51)
--- NOTE | 2016-10-20 08:31 | CONS ---
Date/Time of Note Date/Time of Note DATE: 10/20/16 TIME: 08:30 Consult Date/Type/Reason Admit Date/Time Sep 28, 2016 at 05:39 Initial Consult Date 10/01/16 Type of Consultation: Cardio and vascular Ordering Provider: WILMER RODRIGUEZ MD Objective Vital Signs Date Time Temp Pulse Resp B/P Pulse Ox O2 Delivery O2 Flow Rate FiO2 10/20/16 08:24 88 10/20/16 07:31 98.2 20 163/84 100 10/17/16 10:00 Room Air Intake and Output 10/19/16 10/19/16 10/20/16 15:00 23:00 07:00 Intake Total 300 ml 640 ml 160 ml Output Total 400 ml 500 ml Balance 300 ml 240 ml -340 ml Results/Medications Result Diagram: 10/20/16 0556 10/20/16 0556 Results 24 hrs Laboratory Tests Test 10/19/16 08:53 10/19/16 12:17 10/19/16 17:01 10/19/16 20:47 Bedside Glucose 90 186 135 244 H Test 10/20/16 01:49 10/20/16 05:56 10/20/16 08:15 Bedside Glucose 303 H 314 H White Blood Count 3.3 L Red Blood Count 3.73 L Hemoglobin 11.0 L Hematocrit 33.9 L Mean Corpuscular Volume 90.9 Mean Corpuscular Hemoglobin 29.5 Mean Corpuscular Hemoglobin Concent 32.4 Red Cell Distribution Width 16.2 H Platelet Count 173 Mean Platelet Volume 11.2 H Neutrophils % 48.8 Lymphocytes % 25.0 Monocytes % 16.8 H Eosinophils % 7.9 H Basophils % 1.5 Nucleated Red Blood Cells % 0.0 Neutrophils # 1.6 Lymphocytes # 0.8 Monocytes # 0.6 Eosinophils # 0.3 Basophils # 0.1 Nucleated Red Blood Cells # 0.0 Sodium Level 132 L Potassium Level 4.3 Chloride Level 88 L Carbon Dioxide Level 25 Anion Gap 23 #H Blood Urea Nitrogen 47 #H Creatinine 9.12 #H Glucose Level 281 #H Calcium Level 8.2 L Medications Current Medications Ondansetron HCl (Zofran Inj) 4 mg Q6H PRN IV NAUSEA AND/OR VOMITING Last administered on 10/19/16t 17:11; Admin Dose 4 MG; Start 09/28/16 at 06:00 Acetaminophen (Tylenol Liquid) 650 mg Q6H PRN PO PAIN LEVEL 1-3 OR FEVER Last administered on 09/30/16 08:32; Admin Dose 650 MG; Start 09/28/16 at 06:00 Hydromorphone HCl (Dilaudid) 0.5 mg Q4H PRN IV PAIN LEVEL 7-10 Last administered on 10/20/16 05:04; Admin Dose 0.5 MG; Start 09/28/16 at 06:00 Heparin Sodium (Porcine) (Heparin (5000 Units/0.5 ml)) 5,000 unit Q12 SC Last administered on 10/19/16 20:58; Admin Dose 5,000 UNIT; Start 09/28/16 at 09:00 Famotidine (Pepcid Iv) 20 mg DAILY IV Last administered on 10/19/16 08:29; Admin Dose 20 MG; Start 09/28/16 at 09:00 Acetaminophen (Tylenol Liquid) 650 mg Q4H PRN NGT PAIN AND OR ELEVATED TEMP Last administered on 10/06/16 23:16; Admin Dose 650 MG; Start 09/30/16 at 08:30 Prasugrel (Effient) 10 mg DAILY PO Last administered on 10/19/16 08:27; Admin Dose 10 MG; Start 10/02/16 at 09:00 Carvedilol (Coreg) 12.5 mg BID NGT Last administered on 10/19/16 20:46; Admin Dose 12.5 MG; Start 10/02/16 at 21:00 Miscellaneous Information (Pending [facility] Order For Wound Care) This patient osorio... PRN PRN XX WOUND CARE; Start 10/06/16 at 09:30 Aspirin (Aspirin) 81 mg DAILY NGT Last administered on 10/19/16 08:27; Admin Dose 81 MG; Start 10/08/16 at 09:00 Miscellaneous Information 1 ea NOTE XX ; Start 10/10/16 at 15:30 Glucose (Glutose) 15 gm Q15M PRN PO DECREASED GLUCOSE; Start 10/10/16 at 15:30 Glucose (Glutose) 22.5 gm Q15M PRN PO DECREASED GLUCOSE; Start 10/10/16 at 15: 30 Dextrose (D50w Syringe) 25 ml Q15M PRN IV DECREASED GLUCOSE Last administered on 10/17/16 18:39; Admin Dose 25 ML; Start 10/10/16 at 15:30 Dextrose (D50w Syringe) 50 ml Q15M PRN IV DECREASED GLUCOSE Last administered on 10/16/16 05:46; Admin Dose 50 ML; Start 10/10/16 at 15:30 Glucagon (Glucagen) 1 mg Q15M PRN IM DECREASED GLUCOSE; Start 10/10/16 at 15:30 Glucose (Glutose) 15 gm Q15M PRN BUCCAL DECREASED GLUCOSE; Start 10/10/16 at 15 :30 Diphenoxylate HCl/ Atropine (Lomotil Liquid Cup) 10 ml Q8H PRN NGT LOOSE STOOLS ; Start 10/10/16 at 18:00 Dextrose (D50w Syringe) 25 ml Q15M PRN IV Till BS 80 mg/dL or above x2 Last administered on 10/13/16 20:29; Admin Dose 25 ML; Start 10/10/16 at 21:30 Dextrose (D50w Syringe) 50 ml Q15M PRN IV Till BS 80 mg/dL or above x2; Start 10/10/16 at 21:30 Hydralazine HCl (Apresoline) 20 mg Q6H PRN IV ELEVATED SYSTOLIC BP; Start at 02:00 Diagnostic Test (Pha) (Accu-Chek) 1 ea 02 XX Last administered on 10/20/16 02: 13; Admin Dose 1 EA; Start 10/18/16 at 02:00 Insulin Detemir (Levemir) 6 unit Q12 SC Last administered on 10/19/16 20:59; Admin Dose 6 UNIT; Start 10/19/16 at 09:00 Assessment/Plan Chief Complaint/Hosp Course Patient is know pt to me, he has CAD with s/p PCI of L[employer] by me, PTCA and stenting of Right SFA as well as Left SFA, ESRD on HD, HTN, DM on insulin pump, who came in to ER with pulm edema and acute rest failure, intubated in ICU now. mild elevated trop and non ischemic EKG. Problems: Additional Assessment/Plan Pt is stable cardiac and Vascualr mcdonald geting HD today Bp stable will .CYNDIE Murray MD October 20, 2016 08:30
[2016-10-20] MEDS: INSULIN DETEMIR [LEVEMIR] 3ML CART SC SCH ×2 (08:37→21:51)
[2016-10-20] MEDS: INSULIN ASPART [NOVOLOG] 3 ML PEN SC SCH ×4 (08:38→21:00)
--- NOTE | 2016-10-20 08:38 | CONS ---
Date/Time of Note Date/Time of Note DATE: 10/20/16 TIME: 08:35 Assessment/Plan Assessment/Plan Chief Complaint/Hosp Course 1. ESRD , he is on maintenance hemodialysis . He has hemodialysis ordered for today . he usually dialyzes TTS . 2. Type I DM 3. h/o flash pulmonary edema, his last chest x-ray was clear 4. HTN 5. CAD 6. respiratory failure , he is now extubated. 7. He is able to swallow now . 8. ALOC , his mental status is improved. 10. He was growing VRE from 1of 2 blood cultures , on antibiotics 11. hypocalcemia , this is correcting , he is on calcium carbonate and IV calcitriol . Problems: Consultation Date/Type/Reason Admit Date/Time Sep 28, 2016 at 05:39 Initial Consult Date 09/28/16 Type of Consultation: Cardio and vascular Referring Provider: WILMER RODRIGUEZ MD 24 HR Interval Summary Free Text/Dictation He is awake and responsive . Constitutional: improved, no complaints Exam/Review of Systems Vital Signs Vitals Vital Signs Date Time Temp Pulse Resp B/P Pulse Ox O2 Delivery O2 Flow Rate FiO2 10/20/16 08:24 88 10/20/16 07:31 98.2 20 163/84 100 10/17/16 10:00 Room Air Intake and Output 10/19/16 10/19/16 10/20/16 15:00 23:00 07:00 Intake Total 300 ml 640 ml 160 ml Output Total 400 ml 500 ml Balance 300 ml 240 ml -340 ml Exam Constitutional: alert, frail, oriented Respiratory: clear to auscultation Cardiovascular: regular rate and rhythm Gastrointestinal: soft Musculoskeletal: nl extremities to inspection Results Result Diagram: 10/20/16 0556 10/20/16 0556 Results 24 hrs Laboratory Tests Test 10/19/16 08:53 10/19/16 12:17 10/19/16 17:01 10/19/16 20:47 Bedside Glucose 90 186 135 244 H Test 10/20/16 01:49 10/20/16 05:56 10/20/16 08:15 Bedside Glucose 303 H 314 H White Blood Count 3.3 L Red Blood Count 3.73 L Hemoglobin 11.0 L Hematocrit 33.9 L Mean Corpuscular Volume 90.9 Mean Corpuscular Hemoglobin 29.5 Mean Corpuscular Hemoglobin Concent 32.4 Red Cell Distribution Width 16.2 H Platelet Count 173 Mean Platelet Volume 11.2 H Neutrophils % 48.8 Lymphocytes % 25.0 Monocytes % 16.8 H Eosinophils % 7.9 H Basophils % 1.5 Nucleated Red Blood Cells % 0.0 Neutrophils # 1.6 Lymphocytes # 0.8 Monocytes # 0.6 Eosinophils # 0.3 Basophils # 0.1 Nucleated Red Blood Cells # 0.0 Sodium Level 132 L Potassium Level 4.3 Chloride Level 88 L Carbon Dioxide Level 25 Anion Gap 23 #H Blood Urea Nitrogen 47 #H Creatinine 9.12 #H Glucose Level 281 #H Calcium Level 8.2 L Medications Medications Current Medications Ondansetron HCl (Zofran Inj) 4 mg Q6H PRN IV NAUSEA AND/OR VOMITING Last administered on 10/19/16 17:11; Admin Dose 4 MG; Start 09/28/16 at 06:00 Acetaminophen (Tylenol Liquid) 650 mg Q6H PRN PO PAIN LEVEL 1-3 OR FEVER Last administered on 09/30/16 08:32; Admin Dose 650 MG; Start 09/28/16 at 06:00 Hydromorphone HCl (Dilaudid) 0.5 mg Q4H PRN IV PAIN LEVEL 7-10 Last administered on 10/20/16 05:04; Admin Dose 0.5 MG; Start 09/28/16 at 06:00 Heparin Sodium (Porcine) (Heparin (5000 Units/0.5 ml)) 5,000 unit Q12 SC Last administered on 10/19/16 20:58; Admin Dose 5,000 UNIT; Start 09/28/16 at 09:00 Famotidine (Pepcid Iv) 20 mg DAILY IV Last administered on 10/19/16 08:29; Admin Dose 20 MG; Start 09/28/16 at 09:00 Acetaminophen (Tylenol Liquid) 650 mg Q4H PRN NGT PAIN AND OR ELEVATED TEMP Last administered on 10/06/16 23:16; Admin Dose 650 MG; Start 09/30/16 at 08:30 Prasugrel (Effient) 10 mg DAILY PO Last administered on 10/19/16 08:27; Admin Dose 10 MG; Start 10/02/16 at 09:00 Carvedilol (Coreg) 12.5 mg BID NGT Last administered on 10/19/16 20:46; Admin Dose 12.5 MG; Start 10/02/16 at 21:00 Miscellaneous Information (Pending [facility] Order For Wound Care) This patient osorio... PRN PRN XX WOUND CARE; Start 10/06/16 at 09:30 Aspirin (Aspirin) 81 mg DAILY NGT Last administered on 10/19/16 08:27; Admin Dose 81 MG; Start 10/08/16 at 09:00 Miscellaneous Information 1 ea NOTE XX ; Start 10/10/16 at 15:30 Glucose (Glutose) 15 gm Q15M PRN PO DECREASED GLUCOSE; Start 10/10/16 at 15:30 Glucose (Glutose) 22.5 gm Q15M PRN PO DECREASED GLUCOSE; Start 10/10/16 at 15: 30 Dextrose (D50w Syringe) 25 ml Q15M PRN IV DECREASED GLUCOSE Last administered on 10/17/16 18:39; Admin Dose 25 ML; Start 10/10/16 at 15:30 Dextrose (D50w Syringe) 50 ml Q15M PRN IV DECREASED GLUCOSE Last administered on 10/16/16 05:46; Admin Dose 50 ML; Start 10/10/16 at 15:30 Glucagon (Glucagen) 1 mg Q15M PRN IM DECREASED GLUCOSE; Start 10/10/16 at 15:30 Glucose (Glutose) 15 gm Q15M PRN BUCCAL DECREASED GLUCOSE; Start 10/10/16 at 15 :30 Diphenoxylate HCl/ Atropine (Lomotil Liquid Cup) 10 ml Q8H PRN NGT LOOSE STOOLS ; Start 10/10/16 at 18:00 Dextrose (D50w Syringe) 25 ml Q15M PRN IV Till BS 80 mg/dL or above x2 Last administered on 10/13/16 20:29; Admin Dose 25 ML; Start 10/10/16 at 21:30 Dextrose (D50w Syringe) 50 ml Q15M PRN IV Till BS 80 mg/dL or above x2; Start 10/10/16 at 21:30 Hydralazine HCl (Apresoline) 20 mg Q6H PRN IV ELEVATED SYSTOLIC BP; Start at 02:00 Diagnostic Test (Pha) (Accu-Chek) 1 ea 02 XX Last administered on 10/20/16 02: 13; Admin Dose 1 EA; Start 10/18/16 at 02:00 Insulin Detemir (Levemir) 6 unit Q12 SC Last administered on 10/19/16 20:59; Admin Dose 6 UNIT; Start 10/19/16 at 09:00 DONY HOWARD MD October 20, 2016 08:38
--- NOTE | 2016-10-20 13:31 | CONS ---
Date/Time of Note Date/Time of Note DATE: 10/20/16 TIME: 13:31 Assessment/Plan Assessment/Plan Chief Complaint/Hosp Course SUBJECTIVE: No events overnight, no fevers, in HD, nad. INDWELLINGS: Left chest Port-A-Cath, left upper extremity AV fistula. ALLERGIES: 1. ZITHROMAX 2. ERYTHROMYCIN. PHYSICAL EXAMINATION: GENERAL: This is a chronically ill-appearing, middle-aged white man who is awake, in no distress. HEENT: Head atraumatic, normocephalic. Sclerae anicteric. Buccal mucosa dry. NECK: Supple, trachea midline. CHEST: Rise symmetrical. Breath sounds diminished to bases. HEART: S1, S2. ABDOMEN: Soft, bowel sounds present. EXTREMITIES: With trace edema. ASSESSMENT: 1. Status post sepsis with vancomycin-resistant enterococcus bacteremia. 2. Status post respiratory failure secondary to fluid overload. 3. Diabetes. 4. End-stage renal disease, hemodialysis dependent. 5. Anemia. PLAN: The patient remains stable, off abx. DW staff Problems: Consultation Date/Type/Reason Admit Date/Time Sep 28, 2016 at 05:39 Initial Consult Date 10/01/16 Type of Consultation: ID Referring Provider: WILMER RODRIGUEZ MD Exam/Review of Systems Vital Signs Vitals Vital Signs Date Time Temp Pulse Resp B/P Pulse Ox O2 Delivery O2 Flow Rate FiO2 10/20/16 12:13 68 10/20/16 11:42 98.0 20 122/74 97 10/17/16 10:00 Room Air Intake and Output 10/19/16 10/19/16 10/20/16 15:00 23:00 07:00 Intake Total 300 ml 640 ml 160 ml Output Total 400 ml 500 ml Balance 300 ml 240 ml -340 ml Results Result Diagram: 10/20/16 0556 10/20/16 0556 Results 24 hrs Laboratory Tests Test 10/19/16 17:01 10/19/16 20:47 10/20/16 01:49 10/20/16 05:56 Bedside Glucose 135 244 H 303 H White Blood Count 3.3 L Red Blood Count 3.73 L Hemoglobin 11.0 L Hematocrit 33.9 L Mean Corpuscular Volume 90.9 Mean Corpuscular Hemoglobin 29.5 Mean Corpuscular Hemoglobin Concent 32.4 Red Cell Distribution Width 16.2 H Platelet Count 173 Mean Platelet Volume 11.2 H Neutrophils % 48.8 Lymphocytes % 25.0 Monocytes % 16.8 H Eosinophils % 7.9 H Basophils % 1.5 Nucleated Red Blood Cells % 0.0 Neutrophils # 1.6 Lymphocytes # 0.8 Monocytes # 0.6 Eosinophils # 0.3 Basophils # 0.1 Nucleated Red Blood Cells # 0.0 Sodium Level 132 L Potassium Level 4.3 Chloride Level 88 L Carbon Dioxide Level 25 Anion Gap 23 #H Blood Urea Nitrogen 47 #H Creatinine 9.12 #H Glucose Level 281 #H Calcium Level 8.2 L Test 10/20/16 08:15 10/20/16 10:14 10/20/16 10:16 10/20/16 11:45 Bedside Glucose 314 H 181 188 150 Medications Medications Current Medications Ondansetron HCl (Zofran Inj) 4 mg Q6H PRN IV NAUSEA AND/OR VOMITING Last administered on 10/19/16 17:11; Admin Dose 4 MG; Start 09/28/16 at 06:00 Acetaminophen (Tylenol Liquid) 650 mg Q6H PRN PO PAIN LEVEL 1-3 OR FEVER Last administered on 09/30/16 08:32; Admin Dose 650 MG; Start 09/28/16 at 06:00 Hydromorphone HCl (Dilaudid) 0.5 mg Q4H PRN IV PAIN LEVEL 7-10 Last administered on 10/20/16 13:08; Admin Dose 0.5 MG; Start 09/28/16 at 06:00 Heparin Sodium (Porcine) (Heparin (5000 Units/0.5 ml)) 5,000 unit Q12 SC Last administered on 10/20/16 08:20; Admin Dose 5,000 UNIT; Start 09/28/16 at 09:00 Famotidine (Pepcid Iv) 20 mg DAILY IV Last administered on 10/20/16 08:18; Admin Dose 20 MG; Start 09/28/16 at 09:00 Acetaminophen (Tylenol Liquid) 650 mg Q4H PRN NGT PAIN AND OR ELEVATED TEMP Last administered on 10/06/16 23:16; Admin Dose 650 MG; Start 09/30/16 at 08:30 Prasugrel (Effient) 10 mg DAILY PO Last administered on 10/20/16 08:17; Admin Dose 10 MG; Start 10/02/16 at 09:00 Carvedilol (Coreg) 12.5 mg BID NGT Last administered on 10/20/16 08:18; Admin Dose 12.5 MG; Start 10/02/16 at 21:00 Miscellaneous Information (Pending [facility]yl Order For Wound Care) This patient osorio... PRN PRN XX WOUND CARE; Start 10/06/16 at 09:30 Aspirin (Aspirin) 81 mg DAILY NGT Last administered on 10/20/16 08:17; Admin Dose 81 MG; Start 10/08/16 at 09:00 Miscellaneous Information 1 ea NOTE XX ; Start 10/10/16 at 15:30 Glucose (Glutose) 15 gm Q15M PRN PO DECREASED GLUCOSE; Start 10/10/16 at 15:30 Glucose (Glutose) 22.5 gm Q15M PRN PO DECREASED GLUCOSE; Start 10/10/16 at 15: 30 Dextrose (D50w Syringe) 25 ml Q15M PRN IV DECREASED GLUCOSE Last administered on 10/17/16 18:39; Admin Dose 25 ML; Start 10/10/16 at 15:30 Dextrose (D50w Syringe) 50 ml Q15M PRN IV DECREASED GLUCOSE Last administered on 10/16/16 05:46; Admin Dose 50 ML; Start 10/10/16 at 15:30 Glucagon (Glucagen) 1 mg Q15M PRN IM DECREASED GLUCOSE; Start 10/10/16 at 15:30 Glucose (Glutose) 15 gm Q15M PRN BUCCAL DECREASED GLUCOSE; Start 10/10/16 at 15 :30 Diphenoxylate HCl/ Atropine (Lomotil Liquid Cup) 10 ml Q8H PRN NGT LOOSE STOOLS ; Start 10/10/16 at 18:00 Dextrose (D50w Syringe) 25 ml Q15M PRN IV Till BS 80 mg/dL or above x2 Last administered on 10/13/16 20:29; Admin Dose 25 ML; Start 10/10/16 at 21:30 Dextrose (D50w Syringe) 50 ml Q15M PRN IV Till BS 80 mg/dL or above x2; Start 10/10/16 at 21:30 Hydralazine HCl (Apresoline) 20 mg Q6H PRN IV ELEVATED SYSTOLIC BP; Start at 02:00 Diagnostic Test (Pha) (Accu-Chek) 1 ea 02 XX Last administered on 10/20/16 02: 13; Admin Dose 1 EA; Start 10/18/16 at 02:00 Insulin Detemir (Levemir) 6 unit Q12 SC Last administered on 10/20/16 08:37; Admin Dose 6 UNIT; Start 10/19/16 at 09:00 BIJAN LONGO NP October 20, 2016 13:31
--- NOTE | 2016-10-20 18:52 | PN ---
Date/Time of Note Date/Time of Note DATE: 10/20/16 TIME: 18:51 Assessment/Plan VTE Prophylaxis VTE Prophylaxis Intervention: SCD's Lines/Catheters IV [facility] Laci cath Urinary Cath still in place: No Assessment/Plan Chief Complaint/Hosp Course ASSESSMENT AND PLAN: - Acute respiratory failure, resolved. Dr. Nunez is following in pulmonology consultation. - S/p septic shock. - VRE bacteremia, continue antibiotics per ID. Dr. Allison is following in ID consultation. - End-stage renal disease, hemodialysis dependent. Dr. Hubbard is following the patient in nephrology consultation. Continue hemodialysis per nephrology. - Diabetes mellitus type 1. Dr. Garay is following in endocrinology consultation. - Peripheral arterial disease, status post vascular intervention. Continue heparin. - Anemia of chronic disease. Continue Epogen. - Coronary artery disease. Dr. Stephen is following in cardiology consultation. - Possible healthcare acquired pneumonia. Continue antibiotics per ID. - Transaminitis most likely to shock liver, resolving. Dr. Britt is following in gastroenterology consultation Continue heparin for deep venous thrombosis prophylaxis and Pepcid for peptic ulcer disease prophylaxis. Further recommendations based on clinical course. Plan of care discussed with Dr. Rosales. Problems: Subjective 24 Hr Interval Summary Free Text/Dictation Patient appears drowsy however easily arousable, follow basic commands. Refused physical therapy today. Exam/Review of Systems Vital Signs Vitals Vital Signs Date Time Temp Pulse Resp B/P Pulse Ox O2 Delivery O2 Flow Rate FiO2 10/20/16 16:15 81 10/20/16 15:24 98.0 20 127/74 100 10/17/16 10:00 Room Air Intake and Output 10/19/16 10/19/16 10/20/16 15:00 23:00 07:00 Intake Total 300 ml 640 ml 160 ml Output Total 400 ml 500 ml Balance 300 ml 240 ml -340 ml Exam GENERAL: Well-developed, well-nourished gentleman, awake alert. HEENT: Head is atraumatic, normocephalic. Patient has a right eye prosthesis. Left eye pupil is equal, round, sluggishly reactive to light and accommodation. NECK: Supple, no cervical lymphadenopathy, no thyromegaly. CHEST: Lung sounds diminished at the bases. Scattered rhonchi bilaterally. Patient has a left chest Port-A-Cath. CARDIOVASCULAR: Normal S1, S2. No murmurs, gallops, clicks, rubs noted. ABDOMEN: Round, soft, nondistended, nontender. Bowel sounds present. EXTREMITIES: There is mild edema. There is no clubbing, cyanosis. Left upper extremity with AV graft. SKIN: No rash, petechiae noted. NEUROLOGIC: Alert and oriented 3 Results Result Diagram: 10/20/16 0556 10/20/16 0556 Results 24 hrs Laboratory Tests Test 10/19/16 20:47 10/20/16 01:49 10/20/16 05:56 10/20/16 08:15 Bedside Glucose 244 H 303 H 314 H White Blood Count 3.3 L Red Blood Count 3.73 L Hemoglobin 11.0 L Hematocrit 33.9 L Mean Corpuscular Volume 90.9 Mean Corpuscular Hemoglobin 29.5 Mean Corpuscular Hemoglobin Concent 32.4 Red Cell Distribution Width 16.2 H Platelet Count 173 Mean Platelet Volume 11.2 H Neutrophils % 48.8 Lymphocytes % 25.0 Monocytes % 16.8 H Eosinophils % 7.9 H Basophils % 1.5 Nucleated Red Blood Cells % 0.0 Neutrophils # 1.6 Lymphocytes # 0.8 Monocytes # 0.6 Eosinophils # 0.3 Basophils # 0.1 Nucleated Red Blood Cells # 0.0 Sodium Level 132 L Potassium Level 4.3 Chloride Level 88 L Carbon Dioxide Level 25 Anion Gap 23 #H Blood Urea Nitrogen 47 #H Creatinine 9.12 #H Glucose Level 281 #H Calcium Level 8.2 L Test 10/20/16 10:14 10/20/16 10:16 10/20/16 11:45 10/20/16 17:10 Bedside Glucose 181 188 150 255 H Medications Medications Current Medications Ondansetron HCl (Zofran Inj) 4 mg Q6H PRN IV NAUSEA AND/OR VOMITING Last administered on 10/19/16 17:11; Admin Dose 4 MG; Start 09/28/16 at 06:00 Acetaminophen (Tylenol Liquid) 650 mg Q6H PRN PO PAIN LEVEL 1-3 OR FEVER Last administered on 09/30/16 08:32; Admin Dose 650 MG; Start 09/28/16 at 06:00 Hydromorphone HCl (Dilaudid) 0.5 mg Q4H PRN IV PAIN LEVEL 7-10 Last administered on 10/20/16 17:39; Admin Dose 0.5 MG; Start 09/28/16 at 06:00 Heparin Sodium (Porcine) (Heparin (5000 Units/0.5 ml)) 5,000 unit Q12 SC Last administered on 10/20/16 08:20; Admin Dose 5,000 UNIT; Start 09/28/16 at 09:00 Famotidine (Pepcid Iv) 20 mg DAILY IV Last administered on 10/20/16 08:18; Admin Dose 20 MG; Start 09/28/16 at 09:00 Acetaminophen (Tylenol Liquid) 650 mg Q4H PRN NGT PAIN AND OR ELEVATED TEMP Last administered on 10/06/16 23:16; Admin Dose 650 MG; Start 09/30/16 at 08:30 Prasugrel (Effient) 10 mg DAILY PO Last administered on 10/20/16 08:17; Admin Dose 10 MG; Start 10/02/16 at 09:00 Carvedilol (Coreg) 12.5 mg BID NGT Last administered on 10/20/16 08:18; Admin Dose 12.5 MG; Start 10/02/16 at 21:00 Miscellaneous Information (Pending [facility] Order For Wound Care) This patient osorio... PRN PRN XX WOUND CARE; Start 10/06/16 at 09:30 Aspirin (Aspirin) 81 mg DAILY NGT Last administered on 10/20/16 08:17; Admin Dose 81 MG; Start 10/08/16 at 09:00 Miscellaneous Information 1 ea NOTE XX ; Start 10/10/16 at 15:30 Glucose (Glutose) 15 gm Q15M PRN PO DECREASED GLUCOSE; Start 10/10/16 at 15:30 Glucose (Glutose) 22.5 gm Q15M PRN PO DECREASED GLUCOSE; Start 10/10/16 at 15: 30 Dextrose (D50w Syringe) 25 ml Q15M PRN IV DECREASED GLUCOSE Last administered on 10/17/16 18:39; Admin Dose 25 ML; Start 10/10/16 at 15:30 Dextrose (D50w Syringe) 50 ml Q15M PRN IV DECREASED GLUCOSE Last administered on 10/16/16 05:46; Admin Dose 50 ML; Start 10/10/16 at 15:30 Glucagon (Glucagen) 1 mg Q15M PRN IM DECREASED GLUCOSE; Start 10/10/16 at 15:30 Glucose (Glutose) 15 gm Q15M PRN BUCCAL DECREASED GLUCOSE; Start 10/10/16 at 15 :30 Diphenoxylate HCl/ Atropine (Lomotil Liquid Cup) 10 ml Q8H PRN NGT LOOSE STOOLS ; Start 10/10/16 at 18:00 Dextrose (D50w Syringe) 25 ml Q15M PRN IV Till BS 80 mg/dL or above x2 Last administered on 10/13/16 20:29; Admin Dose 25 ML; Start 10/10/16 at 21:30 Dextrose (D50w Syringe) 50 ml Q15M PRN IV Till BS 80 mg/dL or above x2; Start 10/10/16 at 21:30 Hydralazine HCl (Apresoline) 20 mg Q6H PRN IV ELEVATED SYSTOLIC BP; Start at 02:00 Diagnostic Test (Pha) (Accu-Chek) 1 ea 02 XX Last administered on 10/20/16 02: 13; Admin Dose 1 EA; Start 10/18/16 at 02:00 Insulin Detemir (Levemir) 6 unit Q12 SC Last administered on 10/20/16 08:37; Admin Dose 6 UNIT; Start 10/19/16 at 09:00 ANGELINA CASTREJON October 20, 2016 18:52
[2016-10-21] VITALS (17 sets, daily range): BP systolic 142–191; BP diastolic 72–97; PULSE 63–85; RESP 17–18
[2016-10-21] MEDS: HYDROmorphONE 1 MG/ML SYG IV PRN ×5 (01:36→17:43)
[2016-10-21] MEDS: ACCU-CHEK XX SCH (02:00)
[2016-10-21 06:55] LABS: ADD SCAN DIFF NO
[2016-10-21 06:58] LABS: BASOPHILS % 1.4 % (0.0-2.0); EOSINOPHILS # 0.2 10^3/ul (0.0-0.5); EOSINOPHILS % 8.4 % (0.0-7.0); HEMATOCRIT 30.5 % (42.0-52.0); HEMOGLOBIN 9.8 g/dl (14.0-18.0); LYMPHOCYTES % 33.4 % (15.0-51.0); MEAN CORPUSCULAR HEMOGLOBIN 29.3 pg (29.0-33.0); MEAN CORPUSCULAR HGB CONC 32.1 g/dl (32.0-37.0); MEAN CORPUSCULAR VOLUME 91.3 fl (82.0-101.0); MEAN PLATELET VOLUME 10.3 fl (7.4-10.4); MONOCYTE # 0.4 10^3/ul (0.3-0.9); MONOCYTES % 14.6 % (0.0-11.0); NEUTROPHIL # 1.2 10^3/ul (1.6-7.5); NEUTROPHILS % 41.9 % (39.0-77.0); PLATELET COUNT 135 10^3/UL (140-415); RED BLOOD COUNT 3.34 10^6/ul (4.70-6.10); RED CELL DISTRIBUTION WIDTH 15.9 % (11.5-14.5); WHITE BLOOD COUNT 2.9 10^3/ul (4.8-10.8)
[2016-10-21 07:54] LABS: CALCIUM 8.1 mg/dl (8.4-10.2); CREATININE 6.88 mg/dl (0.61-1.24); POTASSIUM 4.1 mmol/L (3.5-5.1)
[2016-10-21] MEDS: CA CARBONATE (250 MG/ML) 5ML CUP NGT SCH ×3 (09:45→17:42)
[2016-10-21] MEDS: PRASUGREL HYDROCHLORIDE 10 MG TABLET PO SCH (09:45)
[2016-10-21] MEDS: ASPIRIN 81 MG TAB NGT SCH (09:45)
[2016-10-21] MEDS: FAMOTIDINE 20 MG INJ IV SCH (09:46)
[2016-10-21] MEDS: INSULIN DETEMIR [LEVEMIR] 3ML CART SC SCH ×2 (09:55→22:50)
[2016-10-21] MEDS: INSULIN ASPART [NOVOLOG] 3 ML PEN SC SCH ×4 (09:56→22:49)
[2016-10-21] MEDS: HEPARIN 5,000 UNIT/0.5 ML VIAL SC SCH ×2 (10:14→21:07)
--- NOTE | 2016-10-21 13:55 | CONS ---
Date/Time of Note Date/Time of Note DATE: 10/21/16 TIME: 13:53 Assessment/Plan Assessment/Plan Chief Complaint/Hosp Course 1. ESRD , he is on maintenance hemodialysis . He has hemodialysis ordered for tomorrow . he usually dialyzes TTS . 2. Type I DM 3. h/o flash pulmonary edema, his last chest x-ray was clear . He is overall improved 4. HTN 5. CAD 6. respiratory failure , he is now extubated. 7. He is able to swallow now . 8. ALOC , his mental status is improved. 10. He was growing VRE from 1of 2 blood cultures , on antibiotics 11. hypocalcemia , this is correcting , he is on calcium carbonate and IV calcitriol . Problems: Consultation Date/Type/Reason Admit Date/Time Sep 28, 2016 at 05:39 Initial Consult Date 09/28/16 Type of Consultation: ID Referring Provider: WILMER RODRIGUEZ MD 24 HR Interval Summary Free Text/Dictation he is awake and responsive . He c/o a runny nose . Exam/Review of Systems Vital Signs Vitals Vital Signs Date Time Temp Pulse Resp B/P Pulse Ox O2 Delivery O2 Flow Rate FiO2 10/21/16 13:46 81 10/21/16 11:51 98.0 18 156/86 100 10/17/16 10:00 Room Air Intake and Output 10/20/16 10/20/16 10/21/16 15:00 23:00 07:00 Intake Total 300 ml 500 ml 300 ml Output Total 3300 ml 50 ml 150 ml Balance -3000 ml 450 ml 150 ml Exam Constitutional: alert, frail, oriented Respiratory: clear to auscultation, normal air movement Cardiovascular: regular rate and rhythm Musculoskeletal: nl extremities to inspection Results Result Diagram: 10/21/16 0445 10/21/16 0445 Results 24 hrs Laboratory Tests Test 10/20/16 17:10 10/20/16 21:34 10/21/16 04:45 10/21/16 07:58 Bedside Glucose 255 H 142 147 White Blood Count 2.9 L Red Blood Count 3.34 L Hemoglobin 9.8 L Hematocrit 30.5 L Mean Corpuscular Volume 91.3 Mean Corpuscular Hemoglobin 29.3 Mean Corpuscular Hemoglobin Concent 32.1 Red Cell Distribution Width 15.9 H Platelet Count 135 #L Mean Platelet Volume 10.3 Neutrophils % 41.9 Lymphocytes % 33.4 Monocytes % 14.6 H Eosinophils % 8.4 H Basophils % 1.4 Nucleated Red Blood Cells % 0.0 Neutrophils # 1.2 L Lymphocytes # 1.0 Monocytes # 0.4 Eosinophils # 0.2 Basophils # 0.0 Nucleated Red Blood Cells # 0.0 Sodium Level 131 L Potassium Level 4.1 Chloride Level 97 Carbon Dioxide Level 25 Anion Gap 13 # Blood Urea Nitrogen 31 #H Creatinine 6.88 #H Glucose Level 153 # Calcium Level 8.1 L Test 10/21/16 09:52 10/21/16 12:50 Bedside Glucose 166 153 Medications Medications Current Medications Ondansetron HCl (Zofran Inj) 4 mg Q6H PRN IV NAUSEA AND/OR VOMITING Last administered on 10/19/16 17:11; Admin Dose 4 MG; Start 09/28/16 at 06:00 Acetaminophen (Tylenol Liquid) 650 mg Q6H PRN PO PAIN LEVEL 1-3 OR FEVER Last administered on 09/30/16 08:32; Admin Dose 650 MG; Start 09/28/16 at 06:00 Hydromorphone HCl (Dilaudid) 0.5 mg Q4H PRN IV PAIN LEVEL 7-10 Last administered on 10/21/16 13:45; Admin Dose 0.5 MG; Start 09/28/16 at 06:00 Heparin Sodium (Porcine) (Heparin (5000 Units/0.5 ml)) 5,000 unit Q12 SC Last administered on 10/21/16 10:14; Admin Dose 5,000 UNIT; Start 09/28/16 at 09:00 Famotidine (Pepcid Iv) 20 mg DAILY IV Last administered on 10/21/16 09:46; Admin Dose 20 MG; Start 09/28/16 at 09:00 Acetaminophen (Tylenol Liquid) 650 mg Q4H PRN NGT PAIN AND OR ELEVATED TEMP Last administered on 10/06/16 23:16; Admin Dose 650 MG; Start 09/30/16 at 08:30 Prasugrel (Effient) 10 mg DAILY PO Last administered on 10/21/16 09:45; Admin Dose 10 MG; Start 10/02/16 at 09:00 Carvedilol (Coreg) 12.5 mg BID NGT Last administered on 10/21/16 09:45; Admin Dose 12.5 MG; Start 10/02/16 at 21:00 Miscellaneous Information (Pending [facility] Order For Wound Care) This patient osorio... PRN PRN XX WOUND CARE; Start 10/06/16 at 09:30 Aspirin (Aspirin) 81 mg DAILY NGT Last administered on 10/21/16 09:45; Admin Dose 81 MG; Start 10/08/16 at 09:00 Miscellaneous Information 1 ea NOTE XX ; Start 10/10/16 at 15:30 Glucose (Glutose) 15 gm Q15M PRN PO DECREASED GLUCOSE; Start 10/10/16 at 15:30 Glucose (Glutose) 22.5 gm Q15M PRN PO DECREASED GLUCOSE; Start 10/10/16 at 15: 30 Dextrose (D50w Syringe) 25 ml Q15M PRN IV DECREASED GLUCOSE Last administered on 10/17/16 18:39; Admin Dose 25 ML; Start 10/10/16 at 15:30 Dextrose (D50w Syringe) 50 ml Q15M PRN IV DECREASED GLUCOSE Last administered on 10/16/16 05:46; Admin Dose 50 ML; Start 10/10/16 at 15:30 Glucagon (Glucagen) 1 mg Q15M PRN IM DECREASED GLUCOSE; Start 10/10/16 at 15:30 Glucose (Glutose) 15 gm Q15M PRN BUCCAL DECREASED GLUCOSE; Start 10/10/16 at 15 :30 Diphenoxylate HCl/ Atropine (Lomotil Liquid Cup) 10 ml Q8H PRN NGT LOOSE STOOLS ; Start 10/10/16 at 18:00 Dextrose (D50w Syringe) 25 ml Q15M PRN IV Till BS 80 mg/dL or above x2 Last administered on 10/13/16 20:29; Admin Dose 25 ML; Start 10/10/16 at 21:30 Dextrose (D50w Syringe) 50 ml Q15M PRN IV Till BS 80 mg/dL or above x2; Start 10/10/16 at 21:30 Hydralazine HCl (Apresoline) 20 mg Q6H PRN IV ELEVATED SYSTOLIC BP; Start at 02:00 Diagnostic Test (Pha) (Accu-Chek) 1 ea 02 XX Last administered on 10/20/16 02: 13; Admin Dose 1 EA; Start 10/18/16 at 02:00 Insulin Detemir (Levemir) 6 unit Q12 SC Last administered on 10/21/16 09:55; Admin Dose 6 UNIT; Start 10/19/16 at 09:00 DONY HOWARD MD October 21, 2016 13:55
--- NOTE | 2016-10-21 14:09 | CONS ---
Date/Time of Note Date/Time of Note DATE: 10/21/16 TIME: 14:08 Assessment/Plan Assessment/Plan Chief Complaint/Hosp Course SUBJECTIVE: No events overnight, no fevers, alert, feels good INDWELLINGS: Left chest Port-A-Cath, left upper extremity AV fistula. ALLERGIES: 1. ZITHROMAX 2. ERYTHROMYCIN. PHYSICAL EXAMINATION: GENERAL: This is a chronically ill-appearing, middle-aged white man who is awake, in no distress. HEENT: Head atraumatic, normocephalic. Sclerae anicteric. Buccal mucosa dry. NECK: Supple, trachea midline. CHEST: Rise symmetrical. Breath sounds diminished to bases. HEART: S1, S2. ABDOMEN: Soft, bowel sounds present. EXTREMITIES: With trace edema. ASSESSMENT: 1. Status post sepsis with vancomycin-resistant enterococcus bacteremia. 2. Status post respiratory failure secondary to fluid overload. 3. Diabetes. 4. End-stage renal disease, hemodialysis dependent. 5. Anemia. PLAN: The patient remains stable, off abx, chamberlain cx prn. DW staff Problems: Consultation Date/Type/Reason Admit Date/Time Sep 28, 2016 at 05:39 Initial Consult Date 10/01/16 Type of Consultation: ID Referring Provider: WILMER RODRIGUEZ MD Exam/Review of Systems Vital Signs Vitals Vital Signs Date Time Temp Pulse Resp B/P Pulse Ox O2 Delivery O2 Flow Rate FiO2 10/21/16 13:46 81 10/21/16 11:51 98.0 18 156/86 100 10/17/16 10:00 Room Air Intake and Output 10/20/16 10/20/16 10/21/16 15:00 23:00 07:00 Intake Total 300 ml 500 ml 300 ml Output Total 3300 ml 50 ml 150 ml Balance -3000 ml 450 ml 150 ml Results Result Diagram: 10/21/16 0445 10/21/16 0445 Results 24 hrs Laboratory Tests Test 10/20/16 17:10 10/20/16 21:34 10/21/16 04:45 10/21/16 07:58 Bedside Glucose 255 H 142 147 White Blood Count 2.9 L Red Blood Count 3.34 L Hemoglobin 9.8 L Hematocrit 30.5 L Mean Corpuscular Volume 91.3 Mean Corpuscular Hemoglobin 29.3 Mean Corpuscular Hemoglobin Concent 32.1 Red Cell Distribution Width 15.9 H Platelet Count 135 #L Mean Platelet Volume 10.3 Neutrophils % 41.9 Lymphocytes % 33.4 Monocytes % 14.6 H Eosinophils % 8.4 H Basophils % 1.4 Nucleated Red Blood Cells % 0.0 Neutrophils # 1.2 L Lymphocytes # 1.0 Monocytes # 0.4 Eosinophils # 0.2 Basophils # 0.0 Nucleated Red Blood Cells # 0.0 Sodium Level 131 L Potassium Level 4.1 Chloride Level 97 Carbon Dioxide Level 25 Anion Gap 13 # Blood Urea Nitrogen 31 #H Creatinine 6.88 #H Glucose Level 153 # Calcium Level 8.1 L Test 10/21/16 09:52 10/21/16 12:50 Bedside Glucose 166 153 Medications Medications Current Medications Ondansetron HCl (Zofran Inj) 4 mg Q6H PRN IV NAUSEA AND/OR VOMITING Last administered on 10/19/16 17:11; Admin Dose 4 MG; Start 09/28/16 at 06:00 Acetaminophen (Tylenol Liquid) 650 mg Q6H PRN PO PAIN LEVEL 1-3 OR FEVER Last administered on 09/30/16 08:32; Admin Dose 650 MG; Start 09/28/16 at 06:00 Hydromorphone HCl (Dilaudid) 0.5 mg Q4H PRN IV PAIN LEVEL 7-10 Last administered on 10/21/16 13:45; Admin Dose 0.5 MG; Start 09/28/16 at 06:00 Heparin Sodium (Porcine) (Heparin (5000 Units/0.5 ml)) 5,000 unit Q12 SC Last administered on 10/21/16 10:14; Admin Dose 5,000 UNIT; Start 09/28/16 at 09:00 Famotidine (Pepcid Iv) 20 mg DAILY IV Last administered on 10/21/16 09:46; Admin Dose 20 MG; Start 09/28/16 at 09:00 Acetaminophen (Tylenol Liquid) 650 mg Q4H PRN NGT PAIN AND OR ELEVATED TEMP Last administered on 10/06/16 23:16; Admin Dose 650 MG; Start 09/30/16 at 08:30 Prasugrel (Effient) 10 mg DAILY PO Last administered on 10/21/16 09:45; Admin Dose 10 MG; Start 10/02/16 at 09:00 Carvedilol (Coreg) 12.5 mg BID NGT Last administered on 10/21/16 09:45; Admin Dose 12.5 MG; Start 10/02/16 at 21:00 Miscellaneous Information (Pending [facility] Order For Wound Care) This patient osorio... PRN PRN XX WOUND CARE; Start 10/06/16 at 09:30 Aspirin (Aspirin) 81 mg DAILY NGT Last administered on 10/21/16 09:45; Admin Dose 81 MG; Start 10/08/16 at 09:00 Miscellaneous Information 1 ea NOTE XX ; Start 10/10/16 at 15:30 Glucose (Glutose) 15 gm Q15M PRN PO DECREASED GLUCOSE; Start 10/10/16 at 15:30 Glucose (Glutose) 22.5 gm Q15M PRN PO DECREASED GLUCOSE; Start 10/10/16 at 15: 30 Dextrose (D50w Syringe) 25 ml Q15M PRN IV DECREASED GLUCOSE Last administered on 10/17/16 18:39; Admin Dose 25 ML; Start 10/10/16 at 15:30 Dextrose (D50w Syringe) 50 ml Q15M PRN IV DECREASED GLUCOSE Last administered on 10/16/16 05:46; Admin Dose 50 ML; Start 10/10/16 at 15:30 Glucagon (Glucagen) 1 mg Q15M PRN IM DECREASED GLUCOSE; Start 10/10/16 at 15:30 Glucose (Glutose) 15 gm Q15M PRN BUCCAL DECREASED GLUCOSE; Start 10/10/16 at 15 :30 Diphenoxylate HCl/ Atropine (Lomotil Liquid Cup) 10 ml Q8H PRN NGT LOOSE STOOLS ; Start 10/10/16 at 18:00 Dextrose (D50w Syringe) 25 ml Q15M PRN IV Till BS 80 mg/dL or above x2 Last administered on 10/13/16 20:29; Admin Dose 25 ML; Start 10/10/16 at 21:30 Dextrose (D50w Syringe) 50 ml Q15M PRN IV Till BS 80 mg/dL or above x2; Start 10/10/16 at 21:30 Hydralazine HCl (Apresoline) 20 mg Q6H PRN IV ELEVATED SYSTOLIC BP; Start at 02:00 Diagnostic Test (Pha) (Accu-Chek) 1 ea 02 XX Last administered on 10/20/16 02: 13; Admin Dose 1 EA; Start 10/18/16 at 02:00 Insulin Detemir (Levemir) 6 unit Q12 SC Last administered on 10/21/16 09:55; Admin Dose 6 UNIT; Start 10/19/16 at 09:00 BIJAN LONGO NP October 21, 2016 14:09
--- NOTE | 2016-10-21 14:12 | PN ---
Date/Time of Note Date/Time of Note DATE: 10/21/16 TIME: 14:04 Assessment/Plan VTE Prophylaxis VTE Prophylaxis Intervention: SCD's Lines/Catheters IV Catheter Type (from [facility]): Central Line Central line still needed: Yes Urinary Cath still in place: No Assessment/Plan Chief Complaint/Hosp Course ASSESSMENT AND PLAN: - Acute respiratory failure, resolved. Dr. Nunez is following in pulmonology consultation. - S/p septic shock. - VRE bacteremia, continue antibiotics per ID. Dr. Allison is following in ID consultation. - End-stage renal disease, hemodialysis dependent. Dr. Hubbard is following the patient in nephrology consultation. Continue hemodialysis per nephrology. - Diabetes mellitus type 1. Dr. Garay is following in endocrinology consultation. - Peripheral arterial disease, status post vascular intervention. Continue heparin. - Anemia of chronic disease. Continue Epogen. - Coronary artery disease. Dr. Stephen is following in cardiology consultation. - Possible healthcare acquired pneumonia. Continue antibiotics per ID. - Transaminitis most likely to shock liver, resolving. Dr. Britt is following in gastroenterology consultation - Hypertension, continue Coreg and lisinopril. Continue physical therapy Case management for SNIF placement Continue heparin for deep venous thrombosis prophylaxis and Pepcid for peptic ulcer disease prophylaxis. Further recommendations based on clinical course. Plan of care discussed with Dr. Rosales. Problems: Subjective 24 Hr Interval Summary Free Text/Dictation Continues to gradually improve, still complains of generalized pain. Exam/Review of Systems Vital Signs Vitals Vital Signs Date Time Temp Pulse Resp B/P Pulse Ox O2 Delivery O2 Flow Rate FiO2 10/21/16 13:46 81 10/21/16 11:51 98.0 18 156/86 100 10/17/16 10:00 Room Air Intake and Output 10/20/16 10/20/16 10/21/16 15:00 23:00 07:00 Intake Total 300 ml 500 ml 300 ml Output Total 3300 ml 50 ml 150 ml Balance -3000 ml 450 ml 150 ml Exam GENERAL: Well-developed, well-nourished gentleman, awake alert. HEENT: Head is atraumatic, normocephalic. Patient has a right eye prosthesis. Left eye pupil is equal, round, sluggishly reactive to light and accommodation. NECK: Supple, no cervical lymphadenopathy, no thyromegaly. CHEST: Lung sounds diminished at the bases. Scattered rhonchi bilaterally. Patient has a left chest Port-A-Cath. CARDIOVASCULAR: Normal S1, S2. No murmurs, gallops, clicks, rubs noted. ABDOMEN: Round, soft, nondistended, nontender. Bowel sounds present. EXTREMITIES: There is mild edema. There is no clubbing, cyanosis. Left upper extremity with AV graft. SKIN: No rash, petechiae noted. NEUROLOGIC: Alert and oriented 3 Results Result Diagram: 10/21/165 10/21/165 Results 24 hrs Laboratory Tests Test 10/20/16 17:10 10/20/16 21:34 10/21/16 04:45 10/21/16 07:58 Bedside Glucose 255 H 142 147 White Blood Count 2.9 L Red Blood Count 3.34 L Hemoglobin 9.8 L Hematocrit 30.5 L Mean Corpuscular Volume 91.3 Mean Corpuscular Hemoglobin 29.3 Mean Corpuscular Hemoglobin Concent 32.1 Red Cell Distribution Width 15.9 H Platelet Count 135 #L Mean Platelet Volume 10.3 Neutrophils % 41.9 Lymphocytes % 33.4 Monocytes % 14.6 H Eosinophils % 8.4 H Basophils % 1.4 Nucleated Red Blood Cells % 0.0 Neutrophils # 1.2 L Lymphocytes # 1.0 Monocytes # 0.4 Eosinophils # 0.2 Basophils # 0.0 Nucleated Red Blood Cells # 0.0 Sodium Level 131 L Potassium Level 4.1 Chloride Level 97 Carbon Dioxide Level 25 Anion Gap 13 # Blood Urea Nitrogen 31 #H Creatinine 6.88 #H Glucose Level 153 # Calcium Level 8.1 L Test 10/21/16 09:52 10/21/16 12:50 Bedside Glucose 166 153 Medications Medications Current Medications Ondansetron HCl (Zofran Inj) 4 mg Q6H PRN IV NAUSEA AND/OR VOMITING Last administered on 10/19/16 17:11; Admin Dose 4 MG; Start 09/28/16 at 06:00 Acetaminophen (Tylenol Liquid) 650 mg Q6H PRN PO PAIN LEVEL 1-3 OR FEVER Last administered on 09/30/16 08:32; Admin Dose 650 MG; Start 09/28/16 at 06:00 Hydromorphone HCl (Dilaudid) 0.5 mg Q4H PRN IV PAIN LEVEL 7-10 Last administered on 10/21/16 13:45; Admin Dose 0.5 MG; Start 09/28/16 at 06:00 Heparin Sodium (Porcine) (Heparin (5000 Units/0.5 ml)) 5,000 unit Q12 SC Last administered on 10/21/16 10:14; Admin Dose 5,000 UNIT; Start 09/28/16 at 09:00 Famotidine (Pepcid Iv) 20 mg DAILY IV Last administered on 10/21/16 09:46; Admin Dose 20 MG; Start 09/28/16 at 09:00 Acetaminophen (Tylenol Liquid) 650 mg Q4H PRN NGT PAIN AND OR ELEVATED TEMP Last administered on 10/06/16 23:16; Admin Dose 650 MG; Start 09/30/16 at 08:30 Prasugrel (Effient) 10 mg DAILY PO Last administered on 10/21/16 09:45; Admin Dose 10 MG; Start 10/02/16 at 09:00 Carvedilol (Coreg) 12.5 mg BID NGT Last administered on 10/21/16 09:45; Admin Dose 12.5 MG; Start 10/02/16 at 21:00 Miscellaneous Information (Pending [facility] Order For Wound Care) This patient osorio... PRN PRN XX WOUND CARE; Start 10/06/16 at 09:30 Aspirin (Aspirin) 81 mg DAILY NGT Last administered on 10/21/16 09:45; Admin Dose 81 MG; Start 10/08/16 at 09:00 Miscellaneous Information 1 ea NOTE XX ; Start 10/10/16 at 15:30 Glucose (Glutose) 15 gm Q15M PRN PO DECREASED GLUCOSE; Start 10/10/16 at 15:30 Glucose (Glutose) 22.5 gm Q15M PRN PO DECREASED GLUCOSE; Start 10/10/16 at 15: 30 Dextrose (D50w Syringe) 25 ml Q15M PRN IV DECREASED GLUCOSE Last administered on 10/17/16 18:39; Admin Dose 25 ML; Start 10/10/16 at 15:30 Dextrose (D50w Syringe) 50 ml Q15M PRN IV DECREASED GLUCOSE Last administered on 10/16/16 05:46; Admin Dose 50 ML; Start 10/10/16 at 15:30 Glucagon (Glucagen) 1 mg Q15M PRN IM DECREASED GLUCOSE; Start 10/10/16 at 15:30 Glucose (Glutose) 15 gm Q15M PRN BUCCAL DECREASED GLUCOSE; Start 10/10/16 at 15 :30 Diphenoxylate HCl/ Atropine (Lomotil Liquid Cup) 10 ml Q8H PRN NGT LOOSE STOOLS ; Start 10/10/16 at 18:00 Dextrose (D50w Syringe) 25 ml Q15M PRN IV Till BS 80 mg/dL or above x2 Last administered on 10/13/16 20:29; Admin Dose 25 ML; Start 10/10/16 at 21:30 Dextrose (D50w Syringe) 50 ml Q15M PRN IV Till BS 80 mg/dL or above x2; Start 10/10/16 at 21:30 Hydralazine HCl (Apresoline) 20 mg Q6H PRN IV ELEVATED SYSTOLIC BP; Start at 02:00 Diagnostic Test (Pha) (Accu-Chek) 1 ea 02 XX Last administered on 10/20/16 02: 13; Admin Dose 1 EA; Start 10/18/16 at 02:00 Insulin Detemir (Levemir) 6 unit Q12 SC Last administered on 10/21/16 09:55; Admin Dose 6 UNIT; Start 10/19/16 at 09:00 ANGELINA CASTREJON October 21, 2016 14:12
--- NOTE | 2016-10-21 14:56 | CONS ---
Date/Time of Note Date/Time of Note DATE: 10/21/16 TIME: 14:55 Consult Date/Type/Reason Admit Date/Time Sep 28, 2016 at 05:39 Initial Consult Date 10/01/16 Type of Consultation: Card and vascular int Ordering Provider: WILMER RODRIGUEZ MD Objective Vital Signs Date Time Temp Pulse Resp B/P Pulse Ox O2 Delivery O2 Flow Rate FiO2 10/21/16 13:46 81 10/21/16 11:51 98.0 18 156/86 100 10/17/16 10:00 Room Air Intake and Output 10/20/16 10/20/16 10/21/16 15:00 23:00 07:00 Intake Total 300 ml 500 ml 300 ml Output Total 3300 ml 50 ml 150 ml Balance -3000 ml 450 ml 150 ml Results/Medications Result Diagram: 10/21/16 0445 10/21/16 0445 Results 24 hrs Laboratory Tests Test 10/20/16 17:10 10/20/16 21:34 10/21/16 04:45 10/21/16 07:58 Bedside Glucose 255 H 142 147 White Blood Count 2.9 L Red Blood Count 3.34 L Hemoglobin 9.8 L Hematocrit 30.5 L Mean Corpuscular Volume 91.3 Mean Corpuscular Hemoglobin 29.3 Mean Corpuscular Hemoglobin Concent 32.1 Red Cell Distribution Width 15.9 H Platelet Count 135 #L Mean Platelet Volume 10.3 Neutrophils % 41.9 Lymphocytes % 33.4 Monocytes % 14.6 H Eosinophils % 8.4 H Basophils % 1.4 Nucleated Red Blood Cells % 0.0 Neutrophils # 1.2 L Lymphocytes # 1.0 Monocytes # 0.4 Eosinophils # 0.2 Basophils # 0.0 Nucleated Red Blood Cells # 0.0 Sodium Level 131 L Potassium Level 4.1 Chloride Level 97 Carbon Dioxide Level 25 Anion Gap 13 # Blood Urea Nitrogen 31 #H Creatinine 6.88 #H Glucose Level 153 # Calcium Level 8.1 L Test 10/21/16 09:52 10/21/16 12:50 Bedside Glucose 166 153 Medications Current Medications Ondansetron HCl (Zofran Inj) 4 mg Q6H PRN IV NAUSEA AND/OR VOMITING Last administered on 10/19/16t 17:11; Admin Dose 4 MG; Start 09/28/16 at 06:00 Acetaminophen (Tylenol Liquid) 650 mg Q6H PRN PO PAIN LEVEL 1-3 OR FEVER Last administered on 09/30/16 08:32; Admin Dose 650 MG; Start 09/28/16 at 06:00 Hydromorphone HCl (Dilaudid) 0.5 mg Q4H PRN IV PAIN LEVEL 7-10 Last administered on 10/21/16 13:45; Admin Dose 0.5 MG; Start 09/28/16 at 06:00 Heparin Sodium (Porcine) (Heparin (5000 Units/0.5 ml)) 5,000 unit Q12 SC Last administered on 10/21/16 10:14; Admin Dose 5,000 UNIT; Start 09/28/16 at 09:00 Famotidine (Pepcid Iv) 20 mg DAILY IV Last administered on 10/21/16 09:46; Admin Dose 20 MG; Start 09/28/16 at 09:00 Acetaminophen (Tylenol Liquid) 650 mg Q4H PRN NGT PAIN AND OR ELEVATED TEMP Last administered on 10/06/16 23:16; Admin Dose 650 MG; Start 09/30/16 at 08:30 Prasugrel (Effient) 10 mg DAILY PO Last administered on 10/21/16 09:45; Admin Dose 10 MG; Start 10/02/16 at 09:00 Carvedilol (Coreg) 12.5 mg BID NGT Last administered on 10/21/16 09:45; Admin Dose 12.5 MG; Start 10/02/16 at 21:00 Miscellaneous Information (Pending [facility] Order For Wound Care) This patient osorio... PRN PRN XX WOUND CARE; Start 10/06/16 at 09:30 Aspirin (Aspirin) 81 mg DAILY NGT Last administered on 10/21/16 09:45; Admin Dose 81 MG; Start 10/08/16 at 09:00 Miscellaneous Information 1 ea NOTE XX ; Start 10/10/16 at 15:30 Glucose (Glutose) 15 gm Q15M PRN PO DECREASED GLUCOSE; Start 10/10/16 at 15:30 Glucose (Glutose) 22.5 gm Q15M PRN PO DECREASED GLUCOSE; Start 10/10/16 at 15: 30 Dextrose (D50w Syringe) 25 ml Q15M PRN IV DECREASED GLUCOSE Last administered on 10/17/16 18:39; Admin Dose 25 ML; Start 10/10/16 at 15:30 Dextrose (D50w Syringe) 50 ml Q15M PRN IV DECREASED GLUCOSE Last administered on 10/16/16 05:46; Admin Dose 50 ML; Start 10/10/16 at 15:30 Glucagon (Glucagen) 1 mg Q15M PRN IM DECREASED GLUCOSE; Start 10/10/16 at 15:30 Glucose (Glutose) 15 gm Q15M PRN BUCCAL DECREASED GLUCOSE; Start 10/10/16 at 15 :30 Diphenoxylate HCl/ Atropine (Lomotil Liquid Cup) 10 ml Q8H PRN NGT LOOSE STOOLS ; Start 10/10/16 at 18:00 Dextrose (D50w Syringe) 25 ml Q15M PRN IV Till BS 80 mg/dL or above x2 Last administered on 10/13/16 20:29; Admin Dose 25 ML; Start 10/10/16 at 21:30 Dextrose (D50w Syringe) 50 ml Q15M PRN IV Till BS 80 mg/dL or above x2; Start 10/10/16 at 21:30 Hydralazine HCl (Apresoline) 20 mg Q6H PRN IV ELEVATED SYSTOLIC BP; Start at 02:00 Diagnostic Test (Pha) (Accu-Chek) 1 ea 02 XX Last administered on 10/20/16 02: 13; Admin Dose 1 EA; Start 10/18/16 at 02:00 Insulin Detemir (Levemir) 6 unit Q12 SC Last administered on 10/21/16 09:55; Admin Dose 6 UNIT; Start 10/19/16 at 09:00 Lisinopril (Zestril) 10 mg DAILY PO ; Start 10/21/16 at 14:30 Assessment/Plan Chief Complaint/Hosp Course Patient is know pt to me, he has CAD with s/p PCI of [employer] by me, PTCA and stenting of Right SFA as well as Left SFA, ESRD on HD, HTN, DM on insulin pump, who came in to ER with pulm edema and acute rest failure, intubated in ICU now. mild elevated trop and non ischemic EKG. Problems: Additional Assessment/Plan Cardiac mcdonald stable Bp controlled HD plan per pulCYNDIE Mullen MD October 21, 2016 14:56
[2016-10-21] MEDS: LISINOPRIL 10 MG TAB PO SCH (16:39)
--- NOTE | 2016-10-21 17:46 | CONS ---
Date/Time of Note Date/Time of Note DATE: 10/21/16 TIME: 17:42 Consult Date/Type/Reason Admit Date/Time Sep 28, 2016 at 05:39 Initial Consult Date 10/01/16 Type of Consultation: endocrine Reason for Consultation Diabetes Type1 Management Ordering Provider: WILMER RODRIGUEZ MD Objective Vital Signs Date Time Temp Pulse Resp B/P Pulse Ox O2 Delivery O2 Flow Rate FiO2 10/21/16 16:44 75 10/21/16 15:27 98.9 18 142/79 99 10/21/16 13:00 Room Air Intake and Output 10/20/16 10/20/16 10/21/16 15:00 23:00 07:00 Intake Total 300 ml 500 ml 300 ml Output Total 3300 ml 50 ml 150 ml Balance -3000 ml 450 ml 150 ml Results/Medications Result Diagram: 10/21/16 0445 10/21/16 0445 Results 24 hrs Laboratory Tests Test 10/20/16 21:34 10/21/16 04:45 10/21/16 07:58 10/21/16 09:52 Bedside Glucose 142 147 166 White Blood Count 2.9 L Red Blood Count 3.34 L Hemoglobin 9.8 L Hematocrit 30.5 L Mean Corpuscular Volume 91.3 Mean Corpuscular Hemoglobin 29.3 Mean Corpuscular Hemoglobin Concent 32.1 Red Cell Distribution Width 15.9 H Platelet Count 135 #L Mean Platelet Volume 10.3 Neutrophils % 41.9 Lymphocytes % 33.4 Monocytes % 14.6 H Eosinophils % 8.4 H Basophils % 1.4 Nucleated Red Blood Cells % 0.0 Neutrophils # 1.2 L Lymphocytes # 1.0 Monocytes # 0.4 Eosinophils # 0.2 Basophils # 0.0 Nucleated Red Blood Cells # 0.0 Sodium Level 131 L Potassium Level 4.1 Chloride Level 97 Carbon Dioxide Level 25 Anion Gap 13 # Blood Urea Nitrogen 31 #H Creatinine 6.88 #H Glucose Level 153 # Calcium Level 8.1 L Test 10/21/16 12:50 Bedside Glucose 153 Medications Current Medications Ondansetron HCl (Zofran Inj) 4 mg Q6H PRN IV NAUSEA AND/OR VOMITING Last administered on 10/19/16t 17:11; Admin Dose 4 MG; Start 09/28/16 at 06:00 Acetaminophen (Tylenol Liquid) 650 mg Q6H PRN PO PAIN LEVEL 1-3 OR FEVER Last administered on 09/30/16 08:32; Admin Dose 650 MG; Start 09/28/16 at 06:00 Hydromorphone HCl (Dilaudid) 0.5 mg Q4H PRN IV PAIN LEVEL 7-10 Last administered on 10/21/16 13:45; Admin Dose 0.5 MG; Start 09/28/16 at 06:00 Heparin Sodium (Porcine) (Heparin (5000 Units/0.5 ml)) 5,000 unit Q12 SC Last administered on 10/21/16 10:14; Admin Dose 5,000 UNIT; Start 09/28/16 at 09:00 Famotidine (Pepcid Iv) 20 mg DAILY IV Last administered on 10/21/16 09:46; Admin Dose 20 MG; Start 09/28/16 at 09:00 Acetaminophen (Tylenol Liquid) 650 mg Q4H PRN NGT PAIN AND OR ELEVATED TEMP Last administered on 10/06/16 23:16; Admin Dose 650 MG; Start 09/30/16 at 08:30 Prasugrel (Effient) 10 mg DAILY PO Last administered on 10/21/16 09:45; Admin Dose 10 MG; Start 10/02/16 at 09:00 Carvedilol (Coreg) 12.5 mg BID NGT Last administered on 10/21/16 09:45; Admin Dose 12.5 MG; Start 10/02/16 at 21:00 Miscellaneous Information (Pending [facility] Order For Wound Care) This patient osorio... PRN PRN XX WOUND CARE; Start 10/06/16 at 09:30 Aspirin (Aspirin) 81 mg DAILY NGT Last administered on 10/21/16 09:45; Admin Dose 81 MG; Start 10/08/16 at 09:00 Miscellaneous Information 1 ea NOTE XX ; Start 10/10/16 at 15:30 Glucose (Glutose) 15 gm Q15M PRN PO DECREASED GLUCOSE; Start 10/10/16 at 15:30 Glucose (Glutose) 22.5 gm Q15M PRN PO DECREASED GLUCOSE; Start 10/10/16 at 15: 30 Dextrose (D50w Syringe) 25 ml Q15M PRN IV DECREASED GLUCOSE Last administered on 10/17/16 18:39; Admin Dose 25 ML; Start 10/10/16 at 15:30 Dextrose (D50w Syringe) 50 ml Q15M PRN IV DECREASED GLUCOSE Last administered on 10/16/16 05:46; Admin Dose 50 ML; Start 10/10/16 at 15:30 Glucagon (Glucagen) 1 mg Q15M PRN IM DECREASED GLUCOSE; Start 10/10/16 at 15:30 Glucose (Glutose) 15 gm Q15M PRN BUCCAL DECREASED GLUCOSE; Start 10/10/16 at 15 :30 Diphenoxylate HCl/ Atropine (Lomotil Liquid Cup) 10 ml Q8H PRN NGT LOOSE STOOLS ; Start 10/10/16 at 18:00 Dextrose (D50w Syringe) 25 ml Q15M PRN IV Till BS 80 mg/dL or above x2 Last administered on 10/13/16 20:29; Admin Dose 25 ML; Start 10/10/16 at 21:30 Dextrose (D50w Syringe) 50 ml Q15M PRN IV Till BS 80 mg/dL or above x2; Start 10/10/16 at 21:30 Hydralazine HCl (Apresoline) 20 mg Q6H PRN IV ELEVATED SYSTOLIC BP; Start at 02:00 Diagnostic Test (Pha) (Accu-Chek) 1 ea 02 XX Last administered on 10/20/16 02: 13; Admin Dose 1 EA; Start 10/18/16 at 02:00 Insulin Detemir (Levemir) 6 unit Q12 SC Last administered on 10/21/16 09:55; Admin Dose 6 UNIT; Start 10/19/16 at 09:00 Lisinopril (Zestril) 10 mg DAILY PO Last administered on 10/21/16 16:39; Admin Dose 10 MG; Start 10/21/16 at 14:30 Assessment/Plan Problems: (1) Diabetes mellitus type 1 with complications Additional Assessment/Plan Decent glycemic control on current basal/prandial regimen with some occasional highs and lows. Continue current doses. Will resume pump therapy once discharged. 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 KALPANA MARTINEZ MD October 21, 2016 17:46
[2016-10-21] MEDS ORDERED: HYDROmorphONE 1 MG/ML SYG IV STA (20:44)
[2016-10-22] VITALS (11 sets, daily range): BP systolic 107–159; BP diastolic 58–80; PULSE 63–68; RESP 16–20
[2016-10-22] MEDS: HYDROmorphONE 1 MG/ML SYG IV PRN ×6 (00:45→19:40)
[2016-10-22] MEDS: ONDANSETRON 4 MG INJ IV PRN (01:54)
[2016-10-22] MEDS: ACCU-CHEK XX SCH (02:00)
[2016-10-22 05:48] LABS: ADD SCAN DIFF NO
[2016-10-22 05:56] LABS: BASOPHIL # 0.1 10^3/ul (0.0-0.1); BASOPHILS % 1.8 % (0.0-2.0); EOSINOPHILS # 0.2 10^3/ul (0.0-0.5); EOSINOPHILS % 6.4 % (0.0-7.0); HEMATOCRIT 31.1 % (42.0-52.0); HEMOGLOBIN 9.8 g/dl (14.0-18.0); LYMPHOCYTES # 0.9 10^3/ul (0.8-2.9); LYMPHOCYTES % 27.5 % (15.0-51.0); MEAN CORPUSCULAR HEMOGLOBIN 28.7 pg (29.0-33.0); MEAN CORPUSCULAR HGB CONC 31.5 g/dl (32.0-37.0); MEAN CORPUSCULAR VOLUME 91.2 fl (82.0-101.0); MEAN PLATELET VOLUME 10.9 fl (7.4-10.4); MONOCYTE # 0.4 10^3/ul (0.3-0.9); NEUTROPHIL # 1.8 10^3/ul (1.6-7.5); PLATELET COUNT 145 10^3/UL (140-415); RED BLOOD COUNT 3.41 10^6/ul (4.70-6.10); RED CELL DISTRIBUTION WIDTH 16.5 % (11.5-14.5); WHITE BLOOD COUNT 3.4 10^3/ul (4.8-10.8)
[2016-10-22 06:10] LABS: POTASSIUM 4.2 mmol/L (3.5-5.1)
[2016-10-22 06:12] LABS: CREATININE 8.85 mg/dl (0.61-1.24)
[2016-10-22 06:13] LABS: CALCIUM 7.8 mg/dl (8.4-10.2)
[2016-10-22] MEDS: CA CARBONATE (250 MG/ML) 5ML CUP NGT SCH ×3 (08:15→18:00)
[2016-10-22] MEDS: INSULIN ASPART [NOVOLOG] 3 ML PEN SC SCH ×4 (08:47→21:25)
[2016-10-22] MEDS: ASPIRIN 81 MG TAB NGT SCH (09:00)
[2016-10-22] MEDS: HEPARIN 5,000 UNIT/0.5 ML VIAL SC SCH ×2 (09:00→21:34)
[2016-10-22] MEDS: INSULIN DETEMIR [LEVEMIR] 3ML CART SC SCH ×2 (09:00→21:24)
[2016-10-22] MEDS: LISINOPRIL 10 MG TAB PO SCH (09:00)
[2016-10-22] MEDS: FAMOTIDINE 20 MG INJ IV SCH (09:00)
[2016-10-22] MEDS: PRASUGREL HYDROCHLORIDE 10 MG TABLET PO SCH (09:00)
[2016-10-22] MEDS ORDERED: DIPHENHYDRAMINE 50 MG INJ IV PRN (12:00)
--- NOTE | 2016-10-22 13:15 | CONS ---
Date/Time of Note Date/Time of Note DATE: 10/22/16 TIME: 13:14 Assessment/Plan Assessment/Plan Chief Complaint/Hosp Course SUBJECTIVE: No events overnight, no fevers, alert, nad INDWELLINGS: Left chest Port-A-Cath, left upper extremity AV fistula. ALLERGIES: 1. ZITHROMAX 2. ERYTHROMYCIN. PHYSICAL EXAMINATION: GENERAL: This is a chronically ill-appearing, middle-aged white man who is awake, in no distress. HEENT: Head atraumatic, normocephalic. Sclerae anicteric. Buccal mucosa dry. NECK: Supple, trachea midline. CHEST: Rise symmetrical. Breath sounds diminished to bases. HEART: S1, S2. ABDOMEN: Soft, bowel sounds present. EXTREMITIES: With trace edema. ASSESSMENT: 1. Status post sepsis with vancomycin-resistant enterococcus bacteremia. 2. Status post respiratory failure secondary to fluid overload. 3. Diabetes. 4. End-stage renal disease, hemodialysis dependent. 5. Anemia. PLAN: The patient remains stable, off abx, will chamberlain cx prn. DW staff Problems: Consultation Date/Type/Reason Admit Date/Time Sep 28, 2016 at 05:39 Initial Consult Date 10/01/16 Type of Consultation: ID Referring Provider: WILMER RODRIGUEZ MD Exam/Review of Systems Vital Signs Vitals Vital Signs Date Time Temp Pulse Resp B/P Pulse Ox O2 Delivery O2 Flow Rate FiO2 10/22/16 08:08 98.6 84 16 140/79 98 10/21/16 20:05 Room Air Intake and Output 10/21/16 10/21/16 10/22/16 15:00 23:00 07:00 Intake Total 500 ml 800 ml Output Total 400 ml Balance 100 ml 800 ml Results Result Diagram: 10/22/1630 10/22/1630 Results 24 hrs Laboratory Tests Test 10/21/16 17:18 10/21/16 22:47 10/22/16 02:22 10/22/16 05:30 Bedside Glucose 188 186 218 White Blood Count 3.4 L Red Blood Count 3.41 L Hemoglobin 9.8 L Hematocrit 31.1 L Mean Corpuscular Volume 91.2 Mean Corpuscular Hemoglobin 28.7 L Mean Corpuscular Hemoglobin Concent 31.5 L Red Cell Distribution Width 16.5 H Platelet Count 145 Mean Platelet Volume 10.9 H Neutrophils % 52.0 Lymphocytes % 27.5 Monocytes % 12.0 H Eosinophils % 6.4 Basophils % 1.8 Nucleated Red Blood Cells % 0.0 Neutrophils # 1.8 Lymphocytes # 0.9 Monocytes # 0.4 Eosinophils # 0.2 Basophils # 0.1 Nucleated Red Blood Cells # 0.0 Sodium Level 135 Potassium Level 4.2 Chloride Level 95 L Carbon Dioxide Level 24 Anion Gap 20 #H Blood Urea Nitrogen 44 #H Creatinine 8.85 H Glucose Level 248 H Calcium Level 7.8 L Test 10/22/16 08:24 10/22/16 12:49 Bedside Glucose 279 H 129 Medications Medications Current Medications Ondansetron HCl (Zofran Inj) 4 mg Q6H PRN IV NAUSEA AND/OR VOMITING Last administered on 10/22/16 01:54; Admin Dose 4 MG; Start 09/28/16 at 06:00 Acetaminophen (Tylenol Liquid) 650 mg Q6H PRN PO PAIN LEVEL 1-3 OR FEVER Last administered on 09/30/16 08:32; Admin Dose 650 MG; Start 09/28/16 at 06:00 Heparin Sodium (Porcine) (Heparin (5000 Units/0.5 ml)) 5,000 unit Q12 SC Last administered on 10/21/16 21:07; Admin Dose 5,000 UNIT; Start 09/28/16 at 09:00 Famotidine (Pepcid Iv) 20 mg DAILY IV Last administered on 10/21/16 09:46; Admin Dose 20 MG; Start 09/28/16 at 09:00 Acetaminophen (Tylenol Liquid) 650 mg Q4H PRN NGT PAIN AND OR ELEVATED TEMP Last administered on 10/06/16 23:16; Admin Dose 650 MG; Start 09/30/16 at 08:30 Prasugrel (Effient) 10 mg DAILY PO Last administered on 10/21/16 09:45; Admin Dose 10 MG; Start 10/02/16 at 09:00 Carvedilol (Coreg) 12.5 mg BID NGT Last administered on 10/21/16 21:02; Admin Dose 12.5 MG; Start 10/02/16 at 21:00 [facility] This patient osorio... PRN PRN XX WOUND CARE; Start 10/06/16 at 09:30 Aspirin (Aspirin) 81 mg DAILY NGT Last administered on 10/21/16 09:45; Admin Dose 81 MG; Start 10/08/16 at 09:00 Miscellaneous Information 1 ea NOTE XX ; Start 10/10/16 at 15:30 Glucose (Glutose) 15 gm Q15M PRN PO DECREASED GLUCOSE; Start 10/10/16 at 15:30 Glucose (Glutose) 22.5 gm Q15M PRN PO DECREASED GLUCOSE; Start 10/10/16 at 15: 30 Dextrose (D50w Syringe) 25 ml Q15M PRN IV DECREASED GLUCOSE Last administered on 10/17/16 18:39; Admin Dose 25 ML; Start 10/10/16 at 15:30 Dextrose (D50w Syringe) 50 ml Q15M PRN IV DECREASED GLUCOSE Last administered on 10/16/16 05:46; Admin Dose 50 ML; Start 10/10/16 at 15:30 Glucagon (Glucagen) 1 mg Q15M PRN IM DECREASED GLUCOSE; Start 10/10/16 at 15:30 Glucose (Glutose) 15 gm Q15M PRN BUCCAL DECREASED GLUCOSE; Start 10/10/16 at 15 :30 Diphenoxylate HCl/ Atropine (Lomotil Liquid Cup) 10 ml Q8H PRN NGT LOOSE STOOLS ; Start 10/10/16 at 18:00 Dextrose (D50w Syringe) 25 ml Q15M PRN IV Till BS 80 mg/dL or above x2 Last administered on 10/13/16 20:29; Admin Dose 25 ML; Start 10/10/16 at 21:30 Dextrose (D50w Syringe) 50 ml Q15M PRN IV Till BS 80 mg/dL or above x2; Start 10/10/16 at 21:30 Hydralazine HCl (Apresoline) 20 mg Q6H PRN IV ELEVATED SYSTOLIC BP Last administered on 10/21/16 22:57; Admin Dose 20 MG; Start 10/16/16 at 02:00 Diagnostic Test (Pha) (Accu-Chek) 1 ea 02 XX Last administered on 10/22/16 02: 00; Admin Dose 1 EA; Start 10/18/16 at 02:00 Insulin Detemir (Levemir) 6 unit Q12 SC Last administered on 10/21/16 22:50; Admin Dose 6 UNIT; Start 10/19/16 at 09:00 Lisinopril (Zestril) 10 mg DAILY PO Last administered on 10/21/16 16:39; Admin Dose 10 MG; Start 10/21/16 at 14:30 Hydromorphone HCl (Dilaudid) 0.5 mg Q3H PRN IV PAIN LEVEL 7-10 Last administered on 10/22/16 10:37; Admin Dose 0.5 MG; Start 10/22/16 at 00:26 BIJAN LONGO NP October 22, 2016 13:15
--- NOTE | 2016-10-22 13:32 | PN ---
Date/Time of Note Date/Time of Note DATE: 10/22/16 TIME: 13:29 Assessment/Plan VTE Prophylaxis VTE Prophylaxis Intervention: SCD's Lines/Catheters IV [facility]from [facility] port-a-cath Urinary Cath still in place: No Assessment/Plan Chief Complaint/Hosp Course ASSESSMENT AND PLAN: - Acute respiratory failure, resolved. Dr. Nunez is following in pulmonology consultation. - S/p septic shock. - VRE bacteremia, s/p treatment. Dr. Allison is following in ID consultation. - End-stage renal disease, hemodialysis dependent. Dr. Hubbard is following the patient in nephrology consultation. Continue hemodialysis per nephrology. - Diabetes mellitus type 1. Dr. Garay is following in endocrinology consultation. - Peripheral arterial disease, status post vascular intervention. Continue heparin. - Anemia of chronic disease. Continue Epogen. - Coronary artery disease. Dr. Stephen is following in cardiology consultation. - Possible healthcare acquired pneumonia. Continue antibiotics per ID. - Transaminitis most likely to shock liver, resolving. Dr. Britt is following in gastroenterology consultation - Hypertension, continue Coreg and lisinopril. Continue physical therapy Case management for SNIF placement Continue heparin for deep venous thrombosis prophylaxis and Pepcid for peptic ulcer disease prophylaxis. Further recommendations based on clinical course. Plan of care discussed with Dr. Rosales. Problems: Subjective 24 Hr Interval Summary Free Text/Dictation Patient is undergoing hemodialysis, awake alert, pain is well controlled. Exam/Review of Systems Vital Signs Vitals Vital Signs Date Time Temp Pulse Resp B/P Pulse Ox O2 Delivery O2 Flow Rate FiO2 10/22/16 08:08 98.6 84 16 140/79 98 10/21/16 20:05 Room Air Intake and Output 10/21/16 10/21/16 10/22/16 15:00 23:00 07:00 Intake Total 500 ml 800 ml Output Total 400 ml Balance 100 ml 800 ml Exam GENERAL: Well-developed, well-nourished gentleman, awake alert. HEENT: Head is atraumatic, normocephalic. Patient has a right eye prosthesis. Left eye pupil is equal, round, sluggishly reactive to light and accommodation. NECK: Supple, no cervical lymphadenopathy, no thyromegaly. CHEST: Lung sounds diminished at the bases. Scattered rhonchi bilaterally. Patient has a left chest Port-A-Cath. CARDIOVASCULAR: Normal S1, S2. No murmurs, gallops, clicks, rubs noted. ABDOMEN: Round, soft, nondistended, nontender. Bowel sounds present. EXTREMITIES: There is mild edema. There is no clubbing, cyanosis. Left upper extremity with AV graft. SKIN: No rash, petechiae noted. NEUROLOGIC: Alert and oriented 3 Results Result Diagram: 10/22/16 0530 10/22/16 0530 Results 24 hrs Laboratory Tests Test 10/21/16 17:18 10/21/16 22:47 10/22/16 02:22 10/22/16 05:30 Bedside Glucose 188 186 218 White Blood Count 3.4 L Red Blood Count 3.41 L Hemoglobin 9.8 L Hematocrit 31.1 L Mean Corpuscular Volume 91.2 Mean Corpuscular Hemoglobin 28.7 L Mean Corpuscular Hemoglobin Concent 31.5 L Red Cell Distribution Width 16.5 H Platelet Count 145 Mean Platelet Volume 10.9 H Neutrophils % 52.0 Lymphocytes % 27.5 Monocytes % 12.0 H Eosinophils % 6.4 Basophils % 1.8 Nucleated Red Blood Cells % 0.0 Neutrophils # 1.8 Lymphocytes # 0.9 Monocytes # 0.4 Eosinophils # 0.2 Basophils # 0.1 Nucleated Red Blood Cells # 0.0 Sodium Level 135 Potassium Level 4.2 Chloride Level 95 L Carbon Dioxide Level 24 Anion Gap 20 #H Blood Urea Nitrogen 44 #H Creatinine 8.85 H Glucose Level 248 H Calcium Level 7.8 L Test 10/22/16 08:24 10/22/16 12:49 Bedside Glucose 279 H 129 Medications Medications Current Medications Ondansetron HCl (Zofran Inj) 4 mg Q6H PRN IV NAUSEA AND/OR VOMITING Last administered on 10/22/16 01:54; Admin Dose 4 MG; Start 09/28/16 at 06:00 Acetaminophen (Tylenol Liquid) 650 mg Q6H PRN PO PAIN LEVEL 1-3 OR FEVER Last administered on 09/30/16 08:32; Admin Dose 650 MG; Start 09/28/16 at 06:00 Heparin Sodium (Porcine) (Heparin (5000 Units/0.5 ml)) 5,000 unit Q12 SC Last administered on 10/21/16 21:07; Admin Dose 5,000 UNIT; Start 09/28/16 at 09:00 Famotidine (Pepcid Iv) 20 mg DAILY IV Last administered on 10/21/16 09:46; Admin Dose 20 MG; Start 09/28/16 at 09:00 Acetaminophen (Tylenol Liquid) 650 mg Q4H PRN NGT PAIN AND OR ELEVATED TEMP Last administered on 10/06/16 23:16; Admin Dose 650 MG; Start 09/30/16 at 08:30 Prasugrel (Effient) 10 mg DAILY PO Last administered on 10/21/16 09:45; Admin Dose 10 MG; Start 10/02/16 at 09:00 Carvedilol (Coreg) 12.5 mg BID NGT Last administered on 10/21/16 21:02; Admin Dose 12.5 MG; Start 10/02/16 at 21:00 [facility]iscellaneous [facility] This patient osorio... PRN PRN XX WOUND CARE; Start 10/06/16 at 09:30 Aspirin (Aspirin) 81 mg DAILY NGT Last administered on 10/21/16 09:45; Admin Dose 81 MG; Start 10/08/16 at 09:00 Miscellaneous Information 1 ea NOTE XX ; Start 10/10/16 at 15:30 Glucose (Glutose) 15 gm Q15M PRN PO DECREASED GLUCOSE; Start 10/10/16 at 15:30 Glucose (Glutose) 22.5 gm Q15M PRN PO DECREASED GLUCOSE; Start 10/10/16 at 15: 30 Dextrose (D50w Syringe) 25 ml Q15M PRN IV DECREASED GLUCOSE Last administered on 10/17/16 18:39; Admin Dose 25 ML; Start 10/10/16 at 15:30 Dextrose (D50w Syringe) 50 ml Q15M PRN IV DECREASED GLUCOSE Last administered on 10/16/16 05:46; Admin Dose 50 ML; Start 10/10/16 at 15:30 Glucagon (Glucagen) 1 mg Q15M PRN IM DECREASED GLUCOSE; Start 10/10/16 at 15:30 Glucose (Glutose) 15 gm Q15M PRN BUCCAL DECREASED GLUCOSE; Start 10/10/16 at 15 :30 Diphenoxylate HCl/ Atropine (Lomotil Liquid Cup) 10 ml Q8H PRN NGT LOOSE STOOLS ; Start 10/10/16 at 18:00 Dextrose (D50w Syringe) 25 ml Q15M PRN IV Till BS 80 mg/dL or above x2 Last administered on 10/13/16 20:29; Admin Dose 25 ML; Start 10/10/16 at 21:30 Dextrose (D50w Syringe) 50 ml Q15M PRN IV Till BS 80 mg/dL or above x2; Start 10/10/16 at 21:30 Hydralazine HCl (Apresoline) 20 mg Q6H PRN IV ELEVATED SYSTOLIC BP Last administered on 10/21/16 22:57; Admin Dose 20 MG; Start 10/16/16 at 02:00 Diagnostic Test (Pha) (Accu-Chek) 1 ea 02 XX Last administered on 10/22/16 02: 00; Admin Dose 1 EA; Start 10/18/16 at 02:00 Insulin Detemir (Levemir) 6 unit Q12 SC Last administered on 10/21/16 22:50; Admin Dose 6 UNIT; Start 10/19/16 at 09:00 Lisinopril (Zestril) 10 mg DAILY PO Last administered on 10/21/16 16:39; Admin Dose 10 MG; Start 10/21/16 at 14:30 Hydromorphone HCl (Dilaudid) 0.5 mg Q3H PRN IV PAIN LEVEL 7-10 Last administered on 10/22/16 10:37; Admin Dose 0.5 MG; Start 10/22/16 at 00:26 ANGELINA CASTREJON October 22, 2016 13:32
--- NOTE | 2016-10-22 13:40 | CONS ---
Date/Time of Note Date/Time of Note DATE: 10/22/16 TIME: 13:38 Assessment/Plan Assessment/Plan Chief Complaint/Hosp Course 1. ESRD , he is on maintenance hemodialysis . He is having hemodialysis treatment now . he usually dialyzes TTS . 2. Type I DM 3. h/o flash pulmonary edema, his last chest x-ray was clear . He is overall improved 4. HTN 5. CAD 6. respiratory failure , he is now extubated. 7. He is able to swallow now . 8. ALOC , his mental status is improved. 10. He was growing VRE from 1of 2 blood cultures , on antibiotics 11. hypocalcemia , this is correcting , he is on calcium carbonate and IV calcitriol . Problems: Consultation Date/Type/Reason Admit Date/Time Sep 28, 2016 at 05:39 Initial Consult Date 09/28/16 Type of Consultation: ID Referring Provider: WILMER RODRIGUEZ MD 24 HR Interval Summary Free Text/Dictation He is having a hemodialysis treatment now . No complaints . Constitutional: no complaints Exam/Review of Systems Vital Signs Vitals Vital Signs Date Time Temp Pulse Resp B/P Pulse Ox O2 Delivery O2 Flow Rate FiO2 10/22/16 13:35 66 10/22/16 08:08 98.6 16 140/79 98 10/21/16 20:05 Room Air Intake and Output 10/21/16 10/21/16 10/22/16 15:00 23:00 07:00 Intake Total 500 ml 800 ml Output Total 400 ml Balance 100 ml 800 ml Exam Constitutional: alert Psych: no complaints Respiratory: clear to auscultation, normal air movement Cardiovascular: regular rate and rhythm Musculoskeletal: nl extremities to inspection Results Result Diagram: 10/22/16 0530 10/22/16 0530 Results 24 hrs Laboratory Tests Test 10/21/16 17:18 10/21/16 22:47 10/22/16 02:22 10/22/16 05:30 Bedside Glucose 188 186 218 White Blood Count 3.4 L Red Blood Count 3.41 L Hemoglobin 9.8 L Hematocrit 31.1 L Mean Corpuscular Volume 91.2 Mean Corpuscular Hemoglobin 28.7 L Mean Corpuscular Hemoglobin Concent 31.5 L Red Cell Distribution Width 16.5 H Platelet Count 145 Mean Platelet Volume 10.9 H Neutrophils % 52.0 Lymphocytes % 27.5 Monocytes % 12.0 H Eosinophils % 6.4 Basophils % 1.8 Nucleated Red Blood Cells % 0.0 Neutrophils # 1.8 Lymphocytes # 0.9 Monocytes # 0.4 Eosinophils # 0.2 Basophils # 0.1 Nucleated Red Blood Cells # 0.0 Sodium Level 135 Potassium Level 4.2 Chloride Level 95 L Carbon Dioxide Level 24 Anion Gap 20 #H Blood Urea Nitrogen 44 #H Creatinine 8.85 H Glucose Level 248 H Calcium Level 7.8 L Test 10/22/16 08:24 10/22/16 12:49 Bedside Glucose 279 H 129 Medications Medications Current Medications Ondansetron HCl (Zofran Inj) 4 mg Q6H PRN IV NAUSEA AND/OR VOMITING Last administered on 10/22/16 01:54; Admin Dose 4 MG; Start 09/28/16 at 06:00 Acetaminophen (Tylenol Liquid) 650 mg Q6H PRN PO PAIN LEVEL 1-3 OR FEVER Last administered on 09/30/16 08:32; Admin Dose 650 MG; Start 09/28/16 at 06:00 Heparin Sodium (Porcine) (Heparin (5000 Units/0.5 ml)) 5,000 unit Q12 SC Last administered on 10/21/16 21:07; Admin Dose 5,000 UNIT; Start 09/28/16 at 09:00 Famotidine (Pepcid Iv) 20 mg DAILY IV Last administered on 10/21/16 09:46; Admin Dose 20 MG; Start 09/28/16 at 09:00 Acetaminophen (Tylenol Liquid) 650 mg Q4H PRN NGT PAIN AND OR ELEVATED TEMP Last administered on 10/06/16 23:16; Admin Dose 650 MG; Start 09/30/16 at 08:30 Prasugrel (Effient) 10 mg DAILY PO Last administered on 10/21/16 09:45; Admin Dose 10 MG; Start 10/02/16 at 09:00 Carvedilol (Coreg) 12.5 mg BID NGT Last administered on 10/21/16 21:02; Admin Dose 12.5 MG; Start 10/02/16 at 21:00 Miscellaneous Information (Pending [facility] Order For Wound Care) This patient osorio... PRN PRN XX WOUND CARE; Start 10/06/16 at 09:30 Aspirin (Aspirin) 81 mg DAILY NGT Last administered on 10/21/16 09:45; Admin Dose 81 MG; Start 10/08/16 at 09:00 Miscellaneous Information 1 ea NOTE XX ; Start 10/10/16 at 15:30 Glucose (Glutose) 15 gm Q15M PRN PO DECREASED GLUCOSE; Start 10/10/16 at 15:30 Glucose (Glutose) 22.5 gm Q15M PRN PO DECREASED GLUCOSE; Start 10/10/16 at 15: 30 Dextrose (D50w Syringe) 25 ml Q15M PRN IV DECREASED GLUCOSE Last administered on 10/17/16 18:39; Admin Dose 25 ML; Start 10/10/16 at 15:30 Dextrose (D50w Syringe) 50 ml Q15M PRN IV DECREASED GLUCOSE Last administered on 10/16/16 05:46; Admin Dose 50 ML; Start 10/10/16 at 15:30 Glucagon (Glucagen) 1 mg Q15M PRN IM DECREASED GLUCOSE; Start 10/10/16 at 15:30 Glucose (Glutose) 15 gm Q15M PRN BUCCAL DECREASED GLUCOSE; Start 10/10/16 at 15 :30 Diphenoxylate HCl/ Atropine (Lomotil Liquid Cup) 10 ml Q8H PRN NGT LOOSE STOOLS ; Start 10/10/16 at 18:00 Dextrose (D50w Syringe) 25 ml Q15M PRN IV Till BS 80 mg/dL or above x2 Last administered on 10/13/16 20:29; Admin Dose 25 ML; Start 10/10/16 at 21:30 Dextrose (D50w Syringe) 50 ml Q15M PRN IV Till BS 80 mg/dL or above x2; Start 10/10/16 at 21:30 Hydralazine HCl (Apresoline) 20 mg Q6H PRN IV ELEVATED SYSTOLIC BP Last administered on 10/21/16 22:57; Admin Dose 20 MG; Start 10/16/16 at 02:00 Diagnostic Test (Pha) (Accu-Chek) 1 ea 02 XX Last administered on 10/22/16 02: 00; Admin Dose 1 EA; Start 10/18/16 at 02:00 Insulin Detemir (Levemir) 6 unit Q12 SC Last administered on 10/21/16 22:50; Admin Dose 6 UNIT; Start 10/19/16 at 09:00 Lisinopril (Zestril) 10 mg DAILY PO Last administered on 10/21/16 16:39; Admin Dose 10 MG; Start 10/21/16 at 14:30 Hydromorphone HCl (Dilaudid) 0.5 mg Q3H PRN IV PAIN LEVEL 7-10 Last administered on 10/22/16 10:37; Admin Dose 0.5 MG; Start 10/22/16 at 00:26 DONY HOWARD MD October 22, 2016 13:40
[2016-10-22] MEDS: CALCITRIOL 1 MCG INJ IV SCH (16:39)
--- NOTE | 2016-10-22 18:48 | CONS ---
Date/Time of Note Date/Time of Note DATE: 10/22/16 TIME: 18:47 Consult Date/Type/Reason Admit Date/Time Sep 28, 2016 at 05:39 Initial Consult Date 10/01/16 Type of Consultation: Card and vasc Ordering Provider: WILMER RODRIGUEZ MD Objective Vital Signs Date Time Temp Pulse Resp B/P Pulse Ox O2 Delivery O2 Flow Rate FiO2 10/22/16 15:00 67 18 10/22/16 08:08 98.6 140/79 98 10/21/16 20:05 Room Air Intake and Output 10/21/16 10/21/16 10/22/16 14:59 22:59 06:59 Intake Total 500 ml 800 ml Output Total 400 ml Balance 100 ml 800 ml Results/Medications Result Diagram: 10/22/16 0530 10/22/16 0530 Results 24 hrs Laboratory Tests Test 10/21/16 22:47 10/22/16 02:22 10/22/16 05:30 10/22/16 08:24 Bedside Glucose 186 218 279 H White Blood Count 3.4 L Red Blood Count 3.41 L Hemoglobin 9.8 L Hematocrit 31.1 L Mean Corpuscular Volume 91.2 Mean Corpuscular Hemoglobin 28.7 L Mean Corpuscular Hemoglobin Concent 31.5 L Red Cell Distribution Width 16.5 H Platelet Count 145 Mean Platelet Volume 10.9 H Neutrophils % 52.0 Lymphocytes % 27.5 Monocytes % 12.0 H Eosinophils % 6.4 Basophils % 1.8 Nucleated Red Blood Cells % 0.0 Neutrophils # 1.8 Lymphocytes # 0.9 Monocytes # 0.4 Eosinophils # 0.2 Basophils # 0.1 Nucleated Red Blood Cells # 0.0 Sodium Level 135 Potassium Level 4.2 Chloride Level 95 L Carbon Dioxide Level 24 Anion Gap 20 #H Blood Urea Nitrogen 44 #H Creatinine 8.85 H Glucose Level 248 H Calcium Level 7.8 L Test 10/22/16 12:49 10/22/16 18:02 Bedside Glucose 129 219 Medications Current Medications Ondansetron HCl (Zofran Inj) 4 mg Q6H PRN IV NAUSEA AND/OR VOMITING Last administered on 10/22/16t 01:54; Admin Dose 4 MG; Start 09/28/16 at 06:00 Acetaminophen (Tylenol Liquid) 650 mg Q6H PRN PO PAIN LEVEL 1-3 OR FEVER Last administered on 09/30/16 08:32; Admin Dose 650 MG; Start 09/28/16 at 06:00 Heparin Sodium (Porcine) (Heparin (5000 Units/0.5 ml)) 5,000 unit Q12 SC Last administered on 10/21/16 21:07; Admin Dose 5,000 UNIT; Start 09/28/16 at 09:00 Famotidine (Pepcid Iv) 20 mg DAILY IV Last administered on 10/21/16 09:46; Admin Dose 20 MG; Start 09/28/16 at 09:00 Acetaminophen (Tylenol Liquid) 650 mg Q4H PRN NGT PAIN AND OR ELEVATED TEMP Last administered on 10/06/16 23:16; Admin Dose 650 MG; Start 09/30/16 at 08:30 Prasugrel (Effient) 10 mg DAILY PO Last administered on 10/21/16 09:45; Admin Dose 10 MG; Start 10/02/16 at 09:00 Carvedilol (Coreg) 12.5 mg BID NGT Last administered on 10/21/16 21:02; Admin Dose 12.5 MG; Start 10/02/16 at 21:00 Miscellaneous Information (Pending [facility] Order For Wound Care) This patient osorio... PRN PRN XX WOUND CARE; Start 10/06/16 at 09:30 Aspirin (Aspirin) 81 mg DAILY NGT Last administered on 10/21/16 09:45; Admin Dose 81 MG; Start 10/08/16 at 09:00 Miscellaneous Information 1 ea NOTE XX ; Start 10/10/16 at 15:30 Glucose (Glutose) 15 gm Q15M PRN PO DECREASED GLUCOSE; Start 10/10/16 at 15:30 Glucose (Glutose) 22.5 gm Q15M PRN PO DECREASED GLUCOSE; Start 10/10/16 at 15: 30 Dextrose (D50w Syringe) 25 ml Q15M PRN IV DECREASED GLUCOSE Last administered on 10/17/16 18:39; Admin Dose 25 ML; Start 10/10/16 at 15:30 Dextrose (D50w Syringe) 50 ml Q15M PRN IV DECREASED GLUCOSE Last administered on 10/16/16 05:46; Admin Dose 50 ML; Start 10/10/16 at 15:30 Glucagon (Glucagen) 1 mg Q15M PRN IM DECREASED GLUCOSE; Start 10/10/16 at 15:30 Glucose (Glutose) 15 gm Q15M PRN BUCCAL DECREASED GLUCOSE; Start 10/10/16 at 15 :30 Diphenoxylate HCl/ Atropine (Lomotil Liquid Cup) 10 ml Q8H PRN NGT LOOSE STOOLS ; Start 10/10/16 at 18:00 Hydralazine HCl (Apresoline) 20 mg Q6H PRN IV ELEVATED SYSTOLIC BP Last administered on 10/21/16 22:57; Admin Dose 20 MG; Start 10/16/16 at 02:00 Diagnostic Test (Pha) (Accu-Chek) 1 ea 02 XX Last administered on 10/22/16 02: 00; Admin Dose 1 EA; Start 10/18/16 at 02:00 Insulin Detemir (Levemir) 6 unit Q12 SC Last administered on 10/21/16 22:50; Admin Dose 6 UNIT; Start 10/19/16 at 09:00 Lisinopril (Zestril) 10 mg DAILY PO Last administered on 10/21/16 16:39; Admin Dose 10 MG; Start 10/21/16 at 14:30 Hydromorphone HCl (Dilaudid) 0.5 mg Q3H PRN IV PAIN LEVEL 7-10 Last administered on 10/22/16 15:44; Admin Dose 0.5 MG; Start 10/22/16 at 00:26 Assessment/Plan Chief Complaint/Hosp Course Patient is know pt to me, he has CAD with s/p PCI of [employer] by me, PTCA and stenting of Right SFA as well as Left SFA, ESRD on HD, HTN, DM on insulin pump, who came in to ER with pulm edema and acute rest failure, intubated in ICU now. mild elevated trop and non ischemic EKG. Problems: Additional Assessment/Plan Cardiac and vascular mcdonald stable HD continue with graft PT f/u CYNDIE GARCIA MD October 22, 2016 18:48
[2016-10-22] MEDS ORDERED: HYDROmorphONE 1 MG/ML SYG IV STA (21:05)
[2016-10-22] MEDS: CEFEPIME 1GM/50 ML (PMX) 50 ML IVPB SCH (22:38)
[2016-10-22] MEDS: LINEZOLID 600 MG/D5W (PMX) 300 ML IVPB SCH (23:11)
[2016-10-23] MEDS: HYDROmorphONE 1 MG/ML SYG IV PRN ×7 (00:01→22:01)
[2016-10-23] MEDS: ACCU-CHEK XX SCH ×2 (02:37→23:17)
[2016-10-23 06:13] LABS: ADD SCAN DIFF NO
[2016-10-23 06:19] LABS: BASOPHILS % 1.5 % (0.0-2.0); EOSINOPHILS # 0.2 10^3/ul (0.0-0.5); EOSINOPHILS % 8.1 % (0.0-7.0); HEMATOCRIT 30.8 % (42.0-52.0); HEMOGLOBIN 9.7 g/dl (14.0-18.0); LYMPHOCYTES % 36.4 % (15.0-51.0); MEAN CORPUSCULAR HGB CONC 31.5 g/dl (32.0-37.0); MEAN CORPUSCULAR VOLUME 92.2 fl (82.0-101.0); MEAN PLATELET VOLUME 10.6 fl (7.4-10.4); MONOCYTE # 0.4 10^3/ul (0.3-0.9); MONOCYTES % 14.7 % (0.0-11.0); NEUTROPHIL # 1.1 10^3/ul (1.6-7.5); NEUTROPHILS % 39.3 % (39.0-77.0); PLATELET COUNT 117 10^3/UL (140-415); RED BLOOD COUNT 3.34 10^6/ul (4.70-6.10); RED CELL DISTRIBUTION WIDTH 16.1 % (11.5-14.5); WHITE BLOOD COUNT 2.7 10^3/ul (4.8-10.8)
[2016-10-23 07:10] LABS: CALCIUM 8.1 mg/dl (8.4-10.2); CREATININE 6.49 mg/dl (0.61-1.24); POTASSIUM 4.4 mmol/L (3.5-5.1)
[2016-10-23 08:04] VITALS: BP 146/80; RESP 16
[2016-10-23] MEDS: FAMOTIDINE 20 MG INJ IV SCH (08:09)
[2016-10-23] MEDS: CA CARBONATE (250 MG/ML) 5ML CUP NGT SCH ×3 (08:09→18:40)
[2016-10-23] MEDS: ASPIRIN 81 MG TAB NGT SCH (08:09)
[2016-10-23] MEDS: PRASUGREL HYDROCHLORIDE 10 MG TABLET PO SCH (08:09)
[2016-10-23] MEDS: LISINOPRIL 10 MG TAB PO SCH (08:10)
[2016-10-23] MEDS: LINEZOLID 600 MG/D5W (PMX) 300 ML IVPB SCH ×2 (08:11→21:16)
[2016-10-23] MEDS: INSULIN ASPART [NOVOLOG] 3 ML PEN SC SCH ×4 (08:25→21:00)
[2016-10-23] MEDS: HEPARIN 5,000 UNIT/0.5 ML VIAL SC SCH ×2 (08:25→21:00)
[2016-10-23] MEDS: INSULIN DETEMIR [LEVEMIR] 3ML CART SC SCH ×2 (09:22→21:30)
[2016-10-23] MEDS: ONDANSETRON 4 MG INJ IV PRN (12:58)
--- NOTE | 2016-10-23 13:24 | PN ---
DATE: 10/23/2016 SUBJECTIVE: No acute changes. The patient spiked a fever of 100.3 yesterday, currently afebrile, s leeping, in no distress. No nausea, vomiting, diarrhea per report. LABORATORY DATA: WBC 2.7, platelets 117. INDWELLINGS: Left chest Port-A-Cath and left upper extremity AV fistula. PHYSICAL EXAMINATION: GENERAL: This is a chronically ill-appearing, middle-aged man who is in no distress. HEENT: Head atraumatic, normocephalic. Sclerae anicteric. Buccal mucosa dry. NECK: Supple. CHEST: Rise symmetrical. Breath sounds diminished to bases. HEART: S1, S2. ABDOMEN: Soft, bowel sounds present. EXTREMITIES: No cyanosis. ASSESSMENT: 1. Low grade fevers, possible aspiration versus healthcare-associated pneumonia, rule out urinary a nd other etiologies, he is started on Zyvox and cefepime by primary team. 2. Status post vancomycin-resistant enterococcus bacteremia. 3. End-stage renal disease, hemodialysis dependent. 4. Diabetes. 5. Severe debility. PLAN: The patient remains unchanged. Cultures were drawn yesterday, results are pending. We will order a chest x-ray. Continue present management. Dictated By: BIJAN LONGO ALLERGY SPECIALIST for [facility] Conf#: [id number] DID#: [id number]
--- NOTE | 2016-10-23 13:39 | CONS ---
Date/Time of Note Date/Time of Note DATE: 10/23/16 TIME: 13:31 Assessment/Plan Assessment/Plan Chief Complaint/Hosp Course 1. ESRD , he is on maintenance hemodialysis . I will order hemodialysis for tomorrow . he usually dialyzes TTS . 2. Type I DM 3. h/o flash pulmonary edema, his last chest x-ray was clear . He is overall improved 4. HTN 5. CAD 6. respiratory failure , he is now extubated and has had no recent pulmonary problems . 7. He is able to swallow now . 8. ALOC , his mental status is improved. 9. .fever last night , he had cultures done and is now on 2 antibiotics 10. hypocalcemia , this is correcting , he is on calcium carbonate and IV calcitriol .. Problems: Consultation Date/Type/Reason Admit Date/Time Sep 28, 2016 at 05:39 Initial Consult Date 09/28/16 Type of Consultation: renal Referring Provider: WILMER RODRIGUEZ MD 24 HR Interval Summary Free Text/Dictation He had a fever last night . Cultures were done Exam/Review of Systems Vital Signs Vitals Vital Signs Date Time Temp Pulse Resp B/P Pulse Ox O2 Delivery O2 Flow Rate FiO2 10/23/16 08:04 97.8 67 16 146/80 99 10/21/16 20:05 Room Air Intake and Output 10/22/16 10/22/16 10/23/16 15:00 23:00 07:00 Intake Total 300 ml 240 ml 710 ml Output Total 3300 ml 400 ml Balance -3000 ml -160 ml 710 ml Exam Constitutional: alert, frail, oriented Respiratory: clear to auscultation, normal air movement Cardiovascular: regular rate and rhythm Gastrointestinal: soft Musculoskeletal: nl extremities to inspection Results Result Diagram: 10/23/16 0545 10/23/16 0545 Results 24 hrs Laboratory Tests Test 10/22/16 18:02 10/22/16 21:22 10/23/16 02:32 10/23/16 05:45 Bedside Glucose 219 292 H 313 H White Blood Count 2.7 #L Red Blood Count 3.34 L Hemoglobin 9.7 L Hematocrit 30.8 L Mean Corpuscular Volume 92.2 Mean Corpuscular Hemoglobin 29.0 Mean Corpuscular Hemoglobin Concent 31.5 L Red Cell Distribution Width 16.1 H Platelet Count 117 L Mean Platelet Volume 10.6 H Neutrophils % 39.3 Lymphocytes % 36.4 Monocytes % 14.7 H Eosinophils % 8.1 H Basophils % 1.5 Nucleated Red Blood Cells % 0.0 Neutrophils # 1.1 L Lymphocytes # 1.0 Monocytes # 0.4 Eosinophils # 0.2 Basophils # 0.0 Nucleated Red Blood Cells # 0.0 Sodium Level 129 L Potassium Level 4.4 Chloride Level 94 L Carbon Dioxide Level 28 Anion Gap 11 # Blood Urea Nitrogen 33 #H Creatinine 6.49 #H Glucose Level 267 H Calcium Level 8.1 L Test 10/23/16 07:53 10/23/16 09:13 10/23/16 12:08 Bedside Glucose 175 228 H 254 H Medications Medications Current Medications Ondansetron HCl (Zofran Inj) 4 mg Q6H PRN IV NAUSEA AND/OR VOMITING Last administered on 10/23/16 12:58; Admin Dose 4 MG; Start 09/28/16 at 06:00 Acetaminophen (Tylenol Liquid) 650 mg Q6H PRN PO PAIN LEVEL 1-3 OR FEVER Last administered on 09/30/16 08:32; Admin Dose 650 MG; Start 09/28/16 at 06:00 Heparin Sodium (Porcine) (Heparin (5000 Units/0.5 ml)) 5,000 unit Q12 SC Last administered on 10/23/16 08:25; Admin Dose 5,000 UNIT; Start 09/28/16 at 09:00 Famotidine (Pepcid Iv) 20 mg DAILY IV Last administered on 10/23/16 08:09; Admin Dose 20 MG; Start 09/28/16 at 09:00 Acetaminophen (Tylenol Liquid) 650 mg Q4H PRN NGT PAIN AND OR ELEVATED TEMP Last administered on 10/06/16 23:16; Admin Dose 650 MG; Start 09/30/16 at 08:30 Prasugrel (Effient) 10 mg DAILY PO Last administered on 10/23/16 08:09; Admin Dose 10 MG; Start 10/02/16 at 09:00 Carvedilol (Coreg) 12.5 mg BID NGT Last administered on 10/23/16 08:10; Admin Dose 12.5 MG; Start 10/02/16 at 21:00 Miscellaneous Information [facility] This patient osorio... PRN PRN XX WOUND CARE; Start 10/06/16 at 09:30 Aspirin (Aspirin) 81 mg DAILY NGT Last administered on 10/23/16 08:09; Admin Dose 81 MG; Start 10/08/16 at 09:00 Miscellaneous Information 1 ea NOTE XX ; Start 10/10/16 at 15:30 Glucose (Glutose) 15 gm Q15M PRN PO DECREASED GLUCOSE; Start 10/10/16 at 15:30 Glucose (Glutose) 22.5 gm Q15M PRN PO DECREASED GLUCOSE; Start 10/10/16 at 15: 30 Dextrose (D50w Syringe) 25 ml Q15M PRN IV DECREASED GLUCOSE Last administered on 10/17/16 18:39; Admin Dose 25 ML; Start 10/10/16 at 15:30 Dextrose (D50w Syringe) 50 ml Q15M PRN IV DECREASED GLUCOSE Last administered on 10/16/16 05:46; Admin Dose 50 ML; Start 10/10/16 at 15:30 Glucagon (Glucagen) 1 mg Q15M PRN IM DECREASED GLUCOSE; Start 10/10/16 at 15:30 Glucose (Glutose) 15 gm Q15M PRN BUCCAL DECREASED GLUCOSE; Start 10/10/16 at 15 :30 Diphenoxylate HCl/ Atropine (Lomotil Liquid Cup) 10 ml Q8H PRN NGT LOOSE STOOLS ; Start 10/10/16 at 18:00 Hydralazine HCl (Apresoline) 20 mg Q6H PRN IV ELEVATED SYSTOLIC BP Last administered on 10/21/16 22:57; Admin Dose 20 MG; Start 10/16/16 at 02:00 Diagnostic Test (Pha) (Accu-Chek) 1 ea 02 XX Last administered on 10/23/16 02: 37; Admin Dose 1 EA; Start 10/18/16 at 02:00 Insulin Detemir (Levemir) 6 unit Q12 SC Last administered on 10/23/16 09:22; Admin Dose 6 UNIT; Start 10/19/16 at 09:00 Lisinopril (Zestril) 10 mg DAILY PO Last administered on 10/23/16 08:10; Admin Dose 10 MG; Start 10/21/16 at 14:30 Hydromorphone HCl 0.5 mg 0.5 mg Q3H PRN IV PAIN LEVEL 7-10 Last administered on 10/23/16 12:10; Admin Dose 0.5 MG; Start 10/22/16 at 00:26 Linezolid 300 ml @ 300 mls/hr Q12 IVPB Last administered on 10/23/16 08:11; Admin Dose 300 MLS/HR; Start 10/22/16 at 22:30 Cefepime HCl (Maxipime 1gm/50 ml (Pmx)) 50 ml @ 100 mls/hr Q24H IVPB Last administered on 10/22/16 22:38; Admin Dose 100 MLS/HR; Start 10/22/16 at 22:00 DONY HOWARD MD October 23, 2016 13:39
[2016-10-23] MEDS ORDERED: HYDROmorphONE 1 MG/ML SYG IV STA (17:32)
--- NOTE | 2016-10-23 17:48 | PN ---
Date/Time of Note Date/Time of Note DATE: 10/23/16 TIME: 17:43 Assessment/Plan VTE Prophylaxis VTE Prophylaxis Intervention: other Lines/Catheters IV [facility]ter [facility] (from [facility] Port-a-cath Urinary Cath still in place: No Assessment/Plan Assessment/Plan - Acute respiratory failure, resolved. Dr. Nunez is following in pulmonology consultation. - S/p septic shock. - VRE bacteremia, s/p treatment. Dr. Allison is following in ID consultation. - End-stage renal disease, hemodialysis dependent. Dr. Hubbard is following the patient in nephrology consultation. Continue hemodialysis per nephrology. - Diabetes mellitus type 1. Dr. Garay is following in endocrinology consultation. - Peripheral arterial disease, status post vascular intervention. Continue heparin. - Anemia of chronic disease. Continue Epogen. - Coronary artery disease. Dr. Stephen is following in cardiology consultation. - Possible healthcare acquired pneumonia. Continue antibiotics per ID. - Transaminitis most likely to shock liver, resolving. Dr. Britt is following in gastroenterology consultation - Hypertension, continue Coreg and lisinopril. Continue physical therapy Case management for SNIF placement Continue heparin for deep venous thrombosis prophylaxis and Pepcid for peptic ulcer disease prophylaxis. Further recommendations based on clinical course. Plan of care discussed with Dr. Rosales. Subjective 24 Hr Interval Summary Free Text/Dictation resting, c/o back pain, denies any chest pain, shortness of breath, afebrile. dw staff ENT: no complaints Respiratory: no complaints Cardiovascular: no complaints Gastrointestinal: no complaints Genitourinary: no complaints Musculoskeletal: back pain Skin: no complaints Neurologic: no complaints Exam/Review of Systems Vital Signs Vitals Vital Signs Date Time Temp Pulse Resp B/P Pulse Ox O2 Delivery O2 Flow Rate FiO2 10/23/16 08:04 97.8 67 16 146/80 99 10/21/16 20:05 Room Air Intake and Output 10/22/16 10/22/16 10/23/16 14:59 22:59 06:59 Intake Total 540 ml 710 ml Output Total 3700 ml Balance -3160 ml 710 ml Exam Constitutional: alert, oriented Psych: nl mood/affect Eyes: nl sclera ENMT: nl external ears & nose Respiratory: clear to auscultation Cardiovascular: nl pulses Gastrointestinal: non-tender, soft Musculoskeletal: nl extremities to inspection Extremities: normal pulses 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: nl mental status, nl speech Lymph: nontender Results Result Diagram: 10/23/16 0545 10/23/16 0545 Results 24 hrs Laboratory Tests Test 10/22/16 18:02 10/22/16 21:22 10/23/16 02:32 10/23/16 05:45 Bedside Glucose 219 292 H 313 H White Blood Count 2.7 #L Red Blood Count 3.34 L Hemoglobin 9.7 L Hematocrit 30.8 L Mean Corpuscular Volume 92.2 Mean Corpuscular Hemoglobin 29.0 Mean Corpuscular Hemoglobin Concent 31.5 L Red Cell Distribution Width 16.1 H Platelet Count 117 L Mean Platelet Volume 10.6 H Neutrophils % 39.3 Lymphocytes % 36.4 Monocytes % 14.7 H Eosinophils % 8.1 H Basophils % 1.5 Nucleated Red Blood Cells % 0.0 Neutrophils # 1.1 L Lymphocytes # 1.0 Monocytes # 0.4 Eosinophils # 0.2 Basophils # 0.0 Nucleated Red Blood Cells # 0.0 Sodium Level 129 L Potassium Level 4.4 Chloride Level 94 L Carbon Dioxide Level 28 Anion Gap 11 # Blood Urea Nitrogen 33 #H Creatinine 6.49 #H Glucose Level 267 H Calcium Level 8.1 L Test 10/23/16 07:53 10/23/16 09:13 10/23/16 12:08 Bedside Glucose 175 228 H 254 H Medications Medications Current Medications Ondansetron HCl (Zofran Inj) 4 mg Q6H PRN IV NAUSEA AND/OR VOMITING Last administered on 10/23/16 12:58; Admin Dose 4 MG; Start 09/28/16 at 06:00 Acetaminophen (Tylenol Liquid) 650 mg Q6H PRN PO PAIN LEVEL 1-3 OR FEVER Last administered on 09/30/16 08:32; Admin Dose 650 MG; Start 09/28/16 at 06:00 Heparin Sodium (Porcine) (Heparin (5000 Units/0.5 ml)) 5,000 unit Q12 SC Last administered on 10/23/16 08:25; Admin Dose 5,000 UNIT; Start 09/28/16 at 09:00 Famotidine (Pepcid Iv) 20 mg DAILY IV Last administered on 10/23/16 08:09; Admin Dose 20 MG; Start 09/28/16 at 09:00 Acetaminophen (Tylenol Liquid) 650 mg Q4H PRN NGT PAIN AND OR ELEVATED TEMP Last administered on 10/06/16 23:16; Admin Dose 650 MG; Start 09/30/16 at 08:30 Prasugrel (Effient) 10 mg DAILY PO Last administered on 10/23/16 08:09; Admin Dose 10 MG; Start 10/02/16 at 09:00 Carvedilol (Coreg) 12.5 mg BID NGT Last administered on 10/23/16 08:10; Admin Dose 12.5 MG; Start 10/02/16 at 21:00 Miscellaneous Information (Pending [facility] Order For Wound Care) This patient osorio... PRN PRN XX WOUND CARE; Start 10/06/16 at 09:30 Aspirin (Aspirin) 81 mg DAILY NGT Last administered on 10/23/16 08:09; Admin Dose 81 MG; Start 10/08/16 at 09:00 Miscellaneous Information 1 ea NOTE XX ; Start 10/10/16 at 15:30 Glucose (Glutose) 15 gm Q15M PRN PO DECREASED GLUCOSE; Start 10/10/16 at 15:30 Glucose (Glutose) 22.5 gm Q15M PRN PO DECREASED GLUCOSE; Start 10/10/16 at 15: 30 Dextrose (D50w Syringe) 25 ml Q15M PRN IV DECREASED GLUCOSE Last administered on 10/17/16 18:39; Admin Dose 25 ML; Start 10/10/16 at 15:30 Dextrose (D50w Syringe) 50 ml Q15M PRN IV DECREASED GLUCOSE Last administered on 10/16/16 05:46; Admin Dose 50 ML; Start 10/10/16 at 15:30 Glucagon (Glucagen) 1 mg Q15M PRN IM DECREASED GLUCOSE; Start 10/10/16 at 15:30 Glucose (Glutose) 15 gm Q15M PRN BUCCAL DECREASED GLUCOSE; Start 10/10/16 at 15 :30 Diphenoxylate HCl/ Atropine (Lomotil Liquid Cup) 10 ml Q8H PRN NGT LOOSE STOOLS ; Start 10/10/16 at 18:00 Hydralazine HCl (Apresoline) 20 mg Q6H PRN IV ELEVATED SYSTOLIC BP Last administered on 10/21/16 22:57; Admin Dose 20 MG; Start 10/16/16 at 02:00 Diagnostic Test (Pha) (Accu-Chek) 1 ea 02 XX Last administered on 10/23/16 02: 37; Admin Dose 1 EA; Start 10/18/16 at 02:00 Insulin Detemir (Levemir) 6 unit Q12 SC Last administered on 10/23/16 09:22; Admin Dose 6 UNIT; Start 10/19/16 at 09:00 Lisinopril (Zestril) 10 mg DAILY PO Last administered on 10/23/16 08:10; Admin Dose 10 MG; Start 10/21/16 at 14:30 Hydromorphone HCl 0.5 mg 0.5 mg Q3H PRN IV PAIN LEVEL 7-10 Last administered on 10/23/16 16:43; Admin Dose 0.5 MG; Start 10/22/16 at 00:26 Linezolid 300 ml @ 300 mls/hr Q12 IVPB Last administered on 10/23/16 08:11; Admin Dose 300 MLS/HR; Start 10/22/16 at 22:30 Cefepime HCl (Maxipime 1gm/50 ml (Pmx)) 50 ml @ 100 mls/hr Q24H IVPB Last administered on 10/22/16 22:38; Admin Dose 100 MLS/HR; Start 10/22/16 at 22:00 PEDRO BENSON October 23, 2016 17:48
[2016-10-23 17:52] LABS: ADD UMIC YES; URINE BILIRUBIN (Dip) NEGATIVE (NEGATIVE); URINE BLOOD (Dip) NEGATIVE (NEGATIVE); URINE COLOR LT. YELLOW (YELLOW); URINE KETONES (Dip) NEGATIVE (NEGATIVE); URINE LEUKOCYTE ESTERASE (Dip) NEGATIVE (NEGATIVE); URINE NITRITE (Dip) NEGATIVE (NEGATIVE); URINE TOTAL PROTEIN (Dip) 1+ (NEGATIVE); URINE UROBILINOGEN (Dip) 0.2 E.U./dL (0.1-1.0)
--- NOTE | 2016-10-23 18:00 | CONS ---
Date/Time of Note Date/Time of Note DATE: 10/23/16 TIME: 17:59 Consult Date/Type/Reason Admit Date/Time Sep 28, 2016 at 05:39 Initial Consult Date 10/01/16 Type of Consultation: Card and Vasc Ordering Provider: WILMER RODRIGUEZ MD Objective Vital Signs Date Time Temp Pulse Resp B/P Pulse Ox O2 Delivery O2 Flow Rate FiO2 10/23/16 08:04 97.8 67 16 146/80 99 10/21/16 20:05 Room Air Intake and Output 10/22/16 10/22/16 10/23/16 15:00 23:00 07:00 Intake Total 300 ml 240 ml 710 ml Output Total 3300 ml 400 ml Balance -3000 ml -160 ml 710 ml Results/Medications Result Diagram: 10/23/16 0545 10/23/16 0545 Results 24 hrs Laboratory Tests Test 10/22/16 18:02 10/22/16 21:22 10/23/16 02:32 10/23/16 05:45 Bedside Glucose 219 292 H 313 H White Blood Count 2.7 #L Red Blood Count 3.34 L Hemoglobin 9.7 L Hematocrit 30.8 L Mean Corpuscular Volume 92.2 Mean Corpuscular Hemoglobin 29.0 Mean Corpuscular Hemoglobin Concent 31.5 L Red Cell Distribution Width 16.1 H Platelet Count 117 L Mean Platelet Volume 10.6 H Neutrophils % 39.3 Lymphocytes % 36.4 Monocytes % 14.7 H Eosinophils % 8.1 H Basophils % 1.5 Nucleated Red Blood Cells % 0.0 Neutrophils # 1.1 L Lymphocytes # 1.0 Monocytes # 0.4 Eosinophils # 0.2 Basophils # 0.0 Nucleated Red Blood Cells # 0.0 Sodium Level 129 L Potassium Level 4.4 Chloride Level 94 L Carbon Dioxide Level 28 Anion Gap 11 # Blood Urea Nitrogen 33 #H Creatinine 6.49 #H Glucose Level 267 H Calcium Level 8.1 L Test 10/23/16 07:53 10/23/16 09:13 10/23/16 12:08 Bedside Glucose 175 228 H 254 H Medications Current Medications Ondansetron HCl (Zofran Inj) 4 mg Q6H PRN IV NAUSEA AND/OR VOMITING Last administered on 10/23/16t 12:58; Admin Dose 4 MG; Start 09/28/16 at 06:00 Acetaminophen (Tylenol Liquid) 650 mg Q6H PRN PO PAIN LEVEL 1-3 OR FEVER Last administered on 09/30/16 08:32; Admin Dose 650 MG; Start 09/28/16 at 06:00 Heparin Sodium (Porcine) (Heparin (5000 Units/0.5 ml)) 5,000 unit Q12 SC Last administered on 10/23/16 08:25; Admin Dose 5,000 UNIT; Start 09/28/16 at 09:00 Famotidine (Pepcid Iv) 20 mg DAILY IV Last administered on 10/23/16 08:09; Admin Dose 20 MG; Start 09/28/16 at 09:00 Acetaminophen (Tylenol Liquid) 650 mg Q4H PRN NGT PAIN AND OR ELEVATED TEMP Last administered on 10/06/16 23:16; Admin Dose 650 MG; Start 09/30/16 at 08:30 Prasugrel (Effient) 10 mg DAILY PO Last administered on 10/23/16 08:09; Admin Dose 10 MG; Start 10/02/16 at 09:00 Carvedilol (Coreg) 12.5 mg BID NGT Last administered on 10/23/16 08:10; Admin Dose 12.5 MG; Start 10/02/16 at 21:00 Miscellaneous Information (Pending [facility] Order For Wound Care) This patient osorio... PRN PRN XX WOUND CARE; Start 10/06/16 at 09:30 Aspirin (Aspirin) 81 mg DAILY NGT Last administered on 10/23/16 08:09; Admin Dose 81 MG; Start 10/08/16 at 09:00 Miscellaneous Information 1 ea NOTE XX ; Start 10/10/16 at 15:30 Glucose (Glutose) 15 gm Q15M PRN PO DECREASED GLUCOSE; Start 10/10/16 at 15:30 Glucose (Glutose) 22.5 gm Q15M PRN PO DECREASED GLUCOSE; Start 10/10/16 at 15: 30 Dextrose (D50w Syringe) 25 ml Q15M PRN IV DECREASED GLUCOSE Last administered on 10/17/16 18:39; Admin Dose 25 ML; Start 10/10/16 at 15:30 Dextrose (D50w Syringe) 50 ml Q15M PRN IV DECREASED GLUCOSE Last administered on 10/16/16 05:46; Admin Dose 50 ML; Start 10/10/16 at 15:30 Glucagon (Glucagen) 1 mg Q15M PRN IM DECREASED GLUCOSE; Start 10/10/16 at 15:30 Glucose (Glutose) 15 gm Q15M PRN BUCCAL DECREASED GLUCOSE; Start 10/10/16 at 15 :30 Diphenoxylate HCl/ Atropine (Lomotil Liquid Cup) 10 ml Q8H PRN NGT LOOSE STOOLS ; Start 10/10/16 at 18:00 Hydralazine HCl (Apresoline) 20 mg Q6H PRN IV ELEVATED SYSTOLIC BP Last administered on 10/21/16 22:57; Admin Dose 20 MG; Start 10/16/16 at 02:00 Diagnostic Test (Pha) (Accu-Chek) 1 ea 02 XX Last administered on 10/23/16 02: 37; Admin Dose 1 EA; Start 10/18/16 at 02:00 Insulin Detemir (Levemir) 6 unit Q12 SC Last administered on 10/23/16 09:22; Admin Dose 6 UNIT; Start 10/19/16 at 09:00 Lisinopril (Zestril) 10 mg DAILY PO Last administered on 10/23/16 08:10; Admin Dose 10 MG; Start 10/21/16 at 14:30 Hydromorphone HCl 0.5 mg 0.5 mg Q3H PRN IV PAIN LEVEL 7-10 Last administered on 10/23/16 16:43; Admin Dose 0.5 MG; Start 10/22/16 at 00:26 Linezolid 300 ml @ 300 mls/hr Q12 IVPB Last administered on 10/23/16 08:11; Admin Dose 300 MLS/HR; Start 10/22/16 at 22:30 Cefepime HCl (Maxipime 1gm/50 ml (Pmx)) 50 ml @ 100 mls/hr Q24H IVPB Last administered on 10/22/16 22:38; Admin Dose 100 MLS/HR; Start 10/22/16 at 22:00 Assessment/Plan Chief Complaint/Hosp Course Patient is know pt to me, he has CAD with s/p PCI of [employer] by me, PTCA and stenting of Right SFA as well as Left SFA, ESRD on HD, HTN, DM on insulin pump, who came in to ER with pulm edema and acute rest failure, intubated in ICU now. mild elevated trop and non ischemic EKG. Problems: Additional Assessment/Plan Stable cardiac mcdonald LVEF 50% Plan per Pulm and renal CYNDIE GARCIA MD October 23, 2016 18:00
[2016-10-23 18:08] LABS: SQUAMOUS EPITHELIAL CELL,UR RARE
--- NOTE | 2016-10-23 18:40 | CONS ---
Date/Time of Note Date/Time of Note DATE: 10/23/16 TIME: 18:36 Consult Date/Type/Reason Admit Date/Time Sep 28, 2016 at 05:39 Initial Consult Date 10/01/16 Type of Consultation: Endocrine Reason for Consultation Diabetes Management Ordering Provider: WILMER RODRIGUEZ MD Objective Vital Signs Date Time Temp Pulse Resp B/P Pulse Ox O2 Delivery O2 Flow Rate FiO2 10/23/16 08:04 97.8 67 16 146/80 99 10/21/16 20:05 Room Air Intake and Output 10/22/16 10/22/16 10/23/16 15:00 23:00 07:00 Intake Total 300 ml 240 ml 710 ml Output Total 3300 ml 400 ml Balance -3000 ml -160 ml 710 ml Results/Medications Result Diagram: 10/23/16 0545 10/23/16 0545 Results 24 hrs Laboratory Tests Test 10/22/16 21:22 10/23/16 02:32 10/23/16 05:45 10/23/16 07:53 Bedside Glucose 292 H 313 H 175 White Blood Count 2.7 #L Red Blood Count 3.34 L Hemoglobin 9.7 L Hematocrit 30.8 L Mean Corpuscular Volume 92.2 Mean Corpuscular Hemoglobin 29.0 Mean Corpuscular Hemoglobin Concent 31.5 L Red Cell Distribution Width 16.1 H Platelet Count 117 L Mean Platelet Volume 10.6 H Neutrophils % 39.3 Lymphocytes % 36.4 Monocytes % 14.7 H Eosinophils % 8.1 H Basophils % 1.5 Nucleated Red Blood Cells % 0.0 Neutrophils # 1.1 L Lymphocytes # 1.0 Monocytes # 0.4 Eosinophils # 0.2 Basophils # 0.0 Nucleated Red Blood Cells # 0.0 Sodium Level 129 L Potassium Level 4.4 Chloride Level 94 L Carbon Dioxide Level 28 Anion Gap 11 # Blood Urea Nitrogen 33 #H Creatinine 6.49 #H Glucose Level 267 H Calcium Level 8.1 L Test 10/23/16 09:13 10/23/16 12:08 10/23/16 16:30 Bedside Glucose 228 H 254 H Urine Color LT. YELLOW Urine Clarity CLEAR Urine pH 7.5 Urine Specific [place] 1.010 Urine Ketones NEGATIVE Urine Nitrite NEGATIVE Urine Bilirubin NEGATIVE Urine Urobilinogen 0.2 E.U./dL Urine Leukocyte Esterase NEGATIVE Urine Microscopic RBC 2-5 Urine Microscopic WBC 0-2 Urine Squamous Epithelial Cells RARE Urine Hemoglobin NEGATIVE Urine Glucose 0.25% H Urine Total Protein 1+ H Medications Current Medications Ondansetron HCl (Zofran Inj) 4 mg Q6H PRN IV NAUSEA AND/OR VOMITING Last administered on 10/23/16 12:58; Admin Dose 4 MG; Start 09/28/16 at 06:00 Acetaminophen (Tylenol Liquid) 650 mg Q6H PRN PO PAIN LEVEL 1-3 OR FEVER Last administered on 09/30/16 08:32; Admin Dose 650 MG; Start 09/28/16 at 06:00 Heparin Sodium (Porcine) (Heparin (5000 Units/0.5 ml)) 5,000 unit Q12 SC Last administered on 10/23/16 08:25; Admin Dose 5,000 UNIT; Start 09/28/16 at 09:00 Famotidine (Pepcid Iv) 20 mg DAILY IV Last administered on 10/23/16 08:09; Admin Dose 20 MG; Start 09/28/16 at 09:00 Acetaminophen (Tylenol Liquid) 650 mg Q4H PRN NGT PAIN AND OR ELEVATED TEMP Last administered on 10/06/16 23:16; Admin Dose 650 MG; Start 09/30/16 at 08:30 Prasugrel (Effient) 10 mg DAILY PO Last administered on 10/23/16 08:09; Admin Dose 10 MG; Start 10/02/16 at 09:00 Carvedilol (Coreg) 12.5 mg BID NGT Last administered on 10/23/16 08:10; Admin Dose 12.5 MG; Start 10/02/16 at 21:00 Miscellaneous Information (Pending Santyl Order For Wound Care) This patient osorio... PRN PRN XX WOUND CARE; Start 10/06/16 at 09:30 Aspirin (Aspirin) 81 mg DAILY NGT Last administered on 10/23/16 08:09; Admin Dose 81 MG; Start 10/08/16 at 09:00 Miscellaneous Information 1 ea NOTE XX ; Start 10/10/16 at 15:30 Glucose (Glutose) 15 gm Q15M PRN PO DECREASED GLUCOSE; Start 10/10/16 at 15:30 Glucose (Glutose) 22.5 gm Q15M PRN PO DECREASED GLUCOSE; Start 10/10/16 at 15: 30 Dextrose (D50w Syringe) 25 ml Q15M PRN IV DECREASED GLUCOSE Last administered on 10/17/16 18:39; Admin Dose 25 ML; Start 10/10/16 at 15:30 Dextrose (D50w Syringe) 50 ml Q15M PRN IV DECREASED GLUCOSE Last administered on 10/16/16 05:46; Admin Dose 50 ML; Start 10/10/16 at 15:30 Glucagon (Glucagen) 1 mg Q15M PRN IM DECREASED GLUCOSE; Start 10/10/16 at 15:30 Glucose (Glutose) 15 gm Q15M PRN BUCCAL DECREASED GLUCOSE; Start 10/10/16 at 15 :30 Diphenoxylate HCl/ Atropine (Lomotil Liquid Cup) 10 ml Q8H PRN NGT LOOSE STOOLS ; Start 10/10/16 at 18:00 Hydralazine HCl (Apresoline) 20 mg Q6H PRN IV ELEVATED SYSTOLIC BP Last administered on 10/21/16 22:57; Admin Dose 20 MG; Start 10/16/16 at 02:00 Diagnostic Test (Pha) (Accu-Chek) 1 ea 02 XX Last administered on 10/23/16 02: 37; Admin Dose 1 EA; Start 10/18/16 at 02:00 Insulin Detemir (Levemir) 6 unit Q12 SC Last administered on 10/23/16 09:22; Admin Dose 6 UNIT; Start 10/19/16 at 09:00 Lisinopril (Zestril) 10 mg DAILY PO Last administered on 10/23/16 08:10; Admin Dose 10 MG; Start 10/21/16 at 14:30 Hydromorphone HCl 0.5 mg 0.5 mg Q3H PRN IV PAIN LEVEL 7-10 Last administered on 10/23/16 16:43; Admin Dose 0.5 MG; Start 10/22/16 at 00:26 Linezolid 300 ml @ 300 mls/hr Q12 IVPB Last administered on 10/23/16 08:11; Admin Dose 300 MLS/HR; Start 10/22/16 at 22:30 Cefepime HCl (Maxipime 1gm/50 ml (Pmx)) 50 ml @ 100 mls/hr Q24H IVPB Last administered on 5/10/17at 22:38; Admin Dose 100 MLS/HR; Start 10/22/16 at 22:00 Assessment/Plan Problems: (1) Diabetes mellitus type 1, controlled, with complications Additional Assessment/Plan Yesterday and today suboptimal glycemic control. Blood sugars above 200mg/dl. Total correction insulin required yesterday and today about 10 units. Of note Linezolid is premixed with dextrose which may be contributing to the increased blood sugars. Will increase detemir insulin to 8 units BID. KALPANA MARTINEZ MD October 23, 2016 18:40
[2016-10-23 20:30] VITALS: BP 125/75; PULSE 68; RESP 19
[2016-10-23] MEDS: CEFEPIME 1GM/50 ML (PMX) 50 ML IVPB SCH (22:58)
[2016-10-24] MEDS: HYDROmorphONE 1 MG/ML SYG IV PRN ×4 (00:37→13:00)
[2016-10-24 06:30] LABS: ADD SCAN DIFF NO
[2016-10-24 06:35] LABS: EOSINOPHILS # 0.3 10^3/ul (0.0-0.5); HEMATOCRIT 30.5 % (42.0-52.0); LYMPHOCYTES # 0.9 10^3/ul (0.8-2.9); LYMPHOCYTES % 28.6 % (15.0-51.0); MEAN CORPUSCULAR HEMOGLOBIN 29.8 pg (29.0-33.0); MEAN CORPUSCULAR HGB CONC 32.8 g/dl (32.0-37.0); MEAN CORPUSCULAR VOLUME 90.8 fl (82.0-101.0); MEAN PLATELET VOLUME 11.3 fl (7.4-10.4); MONOCYTE # 0.4 10^3/ul (0.3-0.9); MONOCYTES % 11.6 % (0.0-11.0); NEUTROPHIL # 1.5 10^3/ul (1.6-7.5); NEUTROPHILS % 48.8 % (39.0-77.0); PLATELET COUNT 135 10^3/UL (140-415); RED BLOOD COUNT 3.36 10^6/ul (4.70-6.10); RED CELL DISTRIBUTION WIDTH 15.6 % (11.5-14.5); WHITE BLOOD COUNT 3.1 10^3/ul (4.8-10.8)
[2016-10-24 06:58] LABS: POTASSIUM 4.1 mmol/L (3.5-5.1)
[2016-10-24 07:01] LABS: CREATININE 8.12 mg/dl (0.61-1.24)
[2016-10-24 07:02] LABS: CALCIUM 8.1 mg/dl (8.4-10.2)
[2016-10-24] MEDS: INSULIN ASPART [NOVOLOG] 3 ML PEN SC SCH ×2 (08:01→12:15)
[2016-10-24] MEDS: CA CARBONATE (250 MG/ML) 5ML CUP NGT SCH ×2 (08:02→12:15)
[2016-10-24 08:08] VITALS: BP 178/85; RESP 18
[2016-10-24] MEDS: INSULIN DETEMIR [LEVEMIR] 3ML CART SC SCH (09:00)
[2016-10-24] MEDS: PRASUGREL HYDROCHLORIDE 10 MG TABLET PO SCH (09:34)
[2016-10-24] MEDS: ASPIRIN 81 MG TAB NGT SCH (09:34)
[2016-10-24] MEDS: FAMOTIDINE 20 MG INJ IV SCH (09:34)
[2016-10-24] MEDS: LISINOPRIL 10 MG TAB PO SCH (09:35)
[2016-10-24] MEDS: LINEZOLID 600 MG/D5W (PMX) 300 ML IVPB SCH (09:37)
[2016-10-24] MEDS: HEPARIN 5,000 UNIT/0.5 ML VIAL SC SCH (10:22)
[2016-10-24] MEDS ORDERED: HEPARIN (100 UNITS/ML) 5 ML SYG CATHETER ONE (13:30)
--- NOTE | 2016-10-24 14:03 | CONS ---
Date/Time of Note Date/Time of Note DATE: 10/24/16 TIME: 14:00 Assessment/Plan Assessment/Plan Chief Complaint/Hosp Course SUBJECTIVE: No acute changes. Alert, denies n/v/d, no fevers, wants to be discharged. INDWELLINGS: Left chest Port-A-Cath and left upper extremity AV fistula. PHYSICAL EXAMINATION: GENERAL: This is a chronically ill-appearing, middle-aged man who is in no distress. HEENT: Head atraumatic, normocephalic. Sclerae anicteric. Buccal mucosa dry. NECK: Supple. CHEST: Rise symmetrical. Breath sounds diminished to bases. HEART: S1, S2. ABDOMEN: Soft, bowel sounds present. EXTREMITIES: No cyanosis. ASSESSMENT: 1. S/p low grade fever, possible aspiration versus healthcare-associated pneumonia, rule out urinary and other etiologies, he is started on Zyvox and cefepime by primary team. 2. Status post vancomycin-resistant enterococcus bacteremia. 3. End-stage renal disease, hemodialysis dependent. 4. Diabetes. 5. Severe debility. PLAN: Stable, bld and urine cx negative, will f/u cxr and if negative will dc abx. 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 Problems: Consultation Date/Type/Reason Admit Date/Time Sep 28, 2016 at 05:39 Initial Consult Date 10/01/16 Type of Consultation: ID Referring Provider: WILMER RODRIGUEZ MD Exam/Review of Systems Vital Signs Vitals Vital Signs Date Time Temp Pulse Resp B/P Pulse Ox O2 Delivery O2 Flow Rate FiO2 10/24/16 08:08 98.3 68 18 178/85 98 10/23/16 20:30 Room Air Intake and Output 10/23/16 10/23/16 10/24/16 15:00 23:00 07:00 Intake Total 300 ml 660 ml 410 ml Output Total 450 ml 300 ml Balance 300 ml 210 ml 110 ml Results Result Diagram: 10/24/16 0525 10/24/16 0525 Results 24 hrs Laboratory Tests Test 10/23/16 16:30 10/23/16 18:39 10/23/16 21:15 10/24/16 05:25 Urine Color LT. YELLOW Urine Clarity CLEAR Urine pH 7.5 Urine Specific [place] 1.010 Urine Ketones NEGATIVE Urine Nitrite NEGATIVE Urine Bilirubin NEGATIVE Urine Urobilinogen 0.2 E.U./dL Urine Leukocyte Esterase NEGATIVE Urine Microscopic RBC 2-5 Urine Microscopic WBC 0-2 Urine Squamous Epithelial Cells RARE Urine Hemoglobin NEGATIVE Urine Glucose 0.25% H Urine Total Protein 1+ H Bedside Glucose 164 133 White Blood Count 3.1 L Red Blood Count 3.36 L Hemoglobin 10.0 L Hematocrit 30.5 L Mean Corpuscular Volume 90.8 Mean Corpuscular Hemoglobin 29.8 Mean Corpuscular Hemoglobin Concent 32.8 Red Cell Distribution Width 15.6 H Platelet Count 135 L Mean Platelet Volume 11.3 H Neutrophils % 48.8 Lymphocytes % 28.6 Monocytes % 11.6 H Eosinophils % 10.0 H Basophils % 1.0 Nucleated Red Blood Cells % 0.0 Neutrophils # 1.5 L Lymphocytes # 0.9 Monocytes # 0.4 Eosinophils # 0.3 Basophils # 0.0 Nucleated Red Blood Cells # 0.0 Sodium Level 132 L Potassium Level 4.1 Chloride Level 95 L Carbon Dioxide Level 24 Anion Gap 17 H Blood Urea Nitrogen 42 H Creatinine 8.12 H Glucose Level 91 # Calcium Level 8.1 L Test 10/24/16 08:01 Bedside Glucose 74 Medications Medications Current Medications Ondansetron HCl (Zofran Inj) 4 mg Q6H PRN IV NAUSEA AND/OR VOMITING Last administered on 10/23/16 12:58; Admin Dose 4 MG; Start 09/28/16 at 06:00 Acetaminophen (Tylenol Liquid) 650 mg Q6H PRN PO PAIN LEVEL 1-3 OR FEVER Last administered on 09/30/16 08:32; Admin Dose 650 MG; Start 09/28/16 at 06:00 Heparin Sodium (Porcine) (Heparin (5000 Units/0.5 ml)) 5,000 unit Q12 SC Last administered on 10/24/16 10:22; Admin Dose 5,000 UNIT; Start 09/28/16 at 09:00 Famotidine (Pepcid Iv) 20 mg DAILY IV Last administered on 10/24/16 09:34; Admin Dose 20 MG; Start 09/28/16 at 09:00 Acetaminophen (Tylenol Liquid) 650 mg Q4H PRN NGT PAIN AND OR ELEVATED TEMP Last administered on 10/06/16 23:16; Admin Dose 650 MG; Start 09/30/16 at 08:30 Prasugrel (Effient) 10 mg DAILY PO Last administered on 10/24/16 09:34; Admin Dose 10 MG; Start 10/02/16 at 09:00 Carvedilol (Coreg) 12.5 mg BID NGT Last administered on 10/24/16 09:35; Admin Dose 12.5 MG; Start 10/02/16 at 21:00 Miscellaneous Information (Pending Santyl Order For Wound Care) This patient osorio... PRN PRN XX WOUND CARE; Start 10/06/16 at 09:30 Aspirin (Aspirin) 81 mg DAILY NGT Last administered on 10/24/16 09:34; Admin Dose 81 MG; Start 10/08/16 at 09:00 Miscellaneous Information 1 ea NOTE XX ; Start 10/10/16 at 15:30 Glucose (Glutose) 15 gm Q15M PRN PO DECREASED GLUCOSE; Start 10/10/16 at 15:30 Glucose (Glutose) 22.5 gm Q15M PRN PO DECREASED GLUCOSE; Start 10/10/16 at 15: 30 Dextrose (D50w Syringe) 25 ml Q15M PRN IV DECREASED GLUCOSE Last administered on 10/17/16 18:39; Admin Dose 25 ML; Start 10/10/16 at 15:30 Dextrose (D50w Syringe) 50 ml Q15M PRN IV DECREASED GLUCOSE Last administered on 10/16/16 05:46; Admin Dose 50 ML; Start 10/10/16 at 15:30 Glucagon (Glucagen) 1 mg Q15M PRN IM DECREASED GLUCOSE; Start 10/10/16 at 15:30 Glucose (Glutose) 15 gm Q15M PRN BUCCAL DECREASED GLUCOSE; Start 10/10/16 at 15 :30 Diphenoxylate HCl/ Atropine (Lomotil Liquid Cup) 10 ml Q8H PRN NGT LOOSE STOOLS ; Start 10/10/16 at 18:00 Hydralazine HCl (Apresoline) 20 mg Q6H PRN IV ELEVATED SYSTOLIC BP Last administered on 10/21/16 22:57; Admin Dose 20 MG; Start 10/16/16 at 02:00 Diagnostic Test (Pha) (Accu-Chek) 1 ea 02 XX Last administered on 10/23/16 02: 37; Admin Dose 1 EA; Start 10/18/16 at 02:00 Lisinopril (Zestril) 10 mg DAILY PO Last administered on 10/24/16 09:35; Admin Dose 10 MG; Start 10/21/16 at 14:30 Hydromorphone HCl 0.5 mg 0.5 mg Q3H PRN IV PAIN LEVEL 7-10 Last administered on 10/24/16 13:00; Admin Dose 0.5 MG; Start 10/22/16 at 00:26 Linezolid 300 ml @ 300 mls/hr Q12 IVPB Last administered on 10/24/16 09:37; Admin Dose 300 MLS/HR; Start 10/22/16 at 22:30 Cefepime HCl (Maxipime 1gm/50 ml (Pmx)) 50 ml @ 100 mls/hr Q24H IVPB Last administered on 10/23/16 22:58; Admin Dose 100 MLS/HR; Start 10/22/16 at 22:00 Insulin Detemir (Levemir) 8 unit Q12 SC Last administered on 10/23/16 21:30; Admin Dose 8 UNIT; Start 10/23/16 at 21:00 BIJAN LONGO NP October 24, 2016 14:03
--- NOTE | 2016-10-24 14:21 | CONS ---
Date/Time of Note Date/Time of Note DATE: 10/24/16 TIME: 14:14 Assessment/Plan Assessment/Plan Chief Complaint/Hosp Course 1. ESRD , he is on maintenance hemodialysis . I will order hemodialysis for tomorrow ; although , he says that he is being transferred to [facility] today . he usually dialyzes TTS and will be back on his routine schedule . 2. Type I DM 3. h/o flash pulmonary edema, his last chest x-ray was clear . He is overall improved 4. HTN 5. CAD 6. respiratory failure , resolved . 7. dysphagia , has resolved 8. ALOC , his mental status is improved. 9. hypocalcemia , this is correcting , he is on calcium carbonate and IV calcitriol .. Problems: Consultation Date/Type/Reason Admit Date/Time Sep 28, 2016 at 05:39 Initial Consult Date 09/28/16 Type of Consultation: ID Referring Provider: WILMER RODRIGUEZ MD 24 HR Interval Summary Free Text/Dictation He is without complaints . He seems comfortable . Constitutional: improved, no complaints Exam/Review of Systems Vital Signs Vitals Vital Signs Date Time Temp Pulse Resp B/P Pulse Ox O2 Delivery O2 Flow Rate FiO2 10/24/16 08:08 98.3 68 18 178/85 98 10/23/16 20:30 Room Air Intake and Output 10/23/16 10/23/16 10/24/16 14:59 22:59 06:59 Intake Total 300 ml 660 ml 410 ml Output Total 450 ml 300 ml Balance 300 ml 210 ml 110 ml Exam Constitutional: alert, frail, oriented Respiratory: clear to auscultation, normal air movement Cardiovascular: regular rate and rhythm Gastrointestinal: soft Musculoskeletal: nl extremities to inspection Results Result Diagram: 10/24/16 0525 10/24/16 0525 Results 24 hrs Laboratory Tests Test 10/23/16 16:30 10/23/16 18:39 10/23/16 21:15 10/24/16 05:25 Urine Color LT. YELLOW Urine Clarity CLEAR Urine pH 7.5 Urine Specific [place] 1.010 Urine Ketones NEGATIVE Urine Nitrite NEGATIVE Urine Bilirubin NEGATIVE Urine Urobilinogen 0.2 E.U./dL Urine Leukocyte Esterase NEGATIVE Urine Microscopic RBC 2-5 Urine Microscopic WBC 0-2 Urine Squamous Epithelial Cells RARE Urine Hemoglobin NEGATIVE Urine Glucose 0.25% H Urine Total Protein 1+ H Bedside Glucose 164 133 White Blood Count 3.1 L Red Blood Count 3.36 L Hemoglobin 10.0 L Hematocrit 30.5 L Mean Corpuscular Volume 90.8 Mean Corpuscular Hemoglobin 29.8 Mean Corpuscular Hemoglobin Concent 32.8 Red Cell Distribution Width 15.6 H Platelet Count 135 L Mean Platelet Volume 11.3 H Neutrophils % 48.8 Lymphocytes % 28.6 Monocytes % 11.6 H Eosinophils % 10.0 H Basophils % 1.0 Nucleated Red Blood Cells % 0.0 Neutrophils # 1.5 L Lymphocytes # 0.9 Monocytes # 0.4 Eosinophils # 0.3 Basophils # 0.0 Nucleated Red Blood Cells # 0.0 Sodium Level 132 L Potassium Level 4.1 Chloride Level 95 L Carbon Dioxide Level 24 Anion Gap 17 H Blood Urea Nitrogen 42 H Creatinine 8.12 H Glucose Level 91 # Calcium Level 8.1 L Test 10/24/16 08:01 Bedside Glucose 74 Medications Medications Current Medications Ondansetron HCl (Zofran Inj) 4 mg Q6H PRN IV NAUSEA AND/OR VOMITING Last administered on 10/23/16 12:58; Admin Dose 4 MG; Start 09/28/16 at 06:00 Acetaminophen (Tylenol Liquid) 650 mg Q6H PRN PO PAIN LEVEL 1-3 OR FEVER Last administered on 09/30/16 08:32; Admin Dose 650 MG; Start 09/28/16 at 06:00 Heparin Sodium (Porcine) (Heparin (5000 Units/0.5 ml)) 5,000 unit Q12 SC Last administered on 10/24/16 10:22; Admin Dose 5,000 UNIT; Start 09/28/16 at 09:00 Famotidine (Pepcid Iv) 20 mg DAILY IV Last administered on 10/24/16 09:34; Admin Dose 20 MG; Start 09/28/16 at 09:00 Acetaminophen (Tylenol Liquid) 650 mg Q4H PRN NGT PAIN AND OR ELEVATED TEMP Last administered on 10/06/16 23:16; Admin Dose 650 MG; Start 09/30/16 at 08:30 Prasugrel (Effient) 10 mg DAILY PO Last administered on 10/24/16 09:34; Admin Dose 10 MG; Start 10/02/16 at 09:00 Carvedilol (Coreg) 12.5 mg BID NGT Last administered on 10/24/16 09:35; Admin Dose 12.5 MG; Start 10/02/16 at 21:00 [facility] This patient osorio... PRN PRN XX WOUND CARE; Start 10/06/16 at 09:30 Aspirin (Aspirin) 81 mg DAILY NGT Last administered on 10/24/16 09:34; Admin Dose 81 MG; Start 10/08/16 at 09:00 Miscellaneous Information 1 ea NOTE XX ; Start 10/10/16 at 15:30 Glucose (Glutose) 15 gm Q15M PRN PO DECREASED GLUCOSE; Start 10/10/16 at 15:30 Glucose (Glutose) 22.5 gm Q15M PRN PO DECREASED GLUCOSE; Start 10/10/16 at 15: 30 Dextrose (D50w Syringe) 25 ml Q15M PRN IV DECREASED GLUCOSE Last administered on 10/17/16 18:39; Admin Dose 25 ML; Start 10/10/16 at 15:30 Dextrose (D50w Syringe) 50 ml Q15M PRN IV DECREASED GLUCOSE Last administered on 10/16/16 05:46; Admin Dose 50 ML; Start 10/10/16 at 15:30 Glucagon (Glucagen) 1 mg Q15M PRN IM DECREASED GLUCOSE; Start 10/10/16 at 15:30 Glucose (Glutose) 15 gm Q15M PRN BUCCAL DECREASED GLUCOSE; Start 10/10/16 at 15 :30 Diphenoxylate HCl/ Atropine (Lomotil Liquid Cup) 10 ml Q8H PRN NGT LOOSE STOOLS ; Start 10/10/16 at 18:00 Hydralazine HCl (Apresoline) 20 mg Q6H PRN IV ELEVATED SYSTOLIC BP Last administered on 10/21/16 22:57; Admin Dose 20 MG; Start 10/16/16 at 02:00 Diagnostic Test (Pha) (Accu-Chek) 1 ea 02 XX Last administered on 10/23/16 02: 37; Admin Dose 1 EA; Start 10/18/16 at 02:00 Lisinopril (Zestril) 10 mg DAILY PO Last administered on 10/24/16 09:35; Admin Dose 10 MG; Start 10/21/16 at 14:30 Hydromorphone HCl 0.5 mg 0.5 mg Q3H PRN IV PAIN LEVEL 7-10 Last administered on 10/24/16 13:00; Admin Dose 0.5 MG; Start 10/22/16 at 00:26 Linezolid 300 ml @ 300 mls/hr Q12 IVPB Last administered on 10/24/16 09:37; Admin Dose 300 MLS/HR; Start 10/22/16 at 22:30 Cefepime HCl (Maxipime 1gm/50 ml (Pmx)) 50 ml @ 100 mls/hr Q24H IVPB Last administered on 10/23/16 22:58; Admin Dose 100 MLS/HR; Start 10/22/16 at 22:00 Insulin Detemir (Levemir) 8 unit Q12 SC Last administered on 10/23/16 21:30; Admin Dose 8 UNIT; Start 10/23/16 at 21:00 DONY HOWARD MD October 24, 2016 14:21
--- NOTE | 2016-10-24 15:47 | DS ---
DATE OF ADMISSION: 09/28/2016 DATE OF DISCHARGE: 10/24/2016 FINAL DIAGNOSES: 1. Acute respiratory failure requiring intubation and ventilatory support resolved. 2. Status post septic shock. 3. Vancomycin-resistant enterococcus bacteremia, status post treatment. 4. End-stage renal disease, hemodialysis dependent. 5. Diabetes mellitus type 1. 6. Peripheral arterial disease, status post vascular interventions. 7. Anemia of chronic disease. 8. Coronary artery disease. 9. Possible healthcare-acquired pneumonia. 10. Transaminitis, most likely secondary to shock liver, resolved. 11. Hypertension. 12. History of multiple vascular interventions with recent percutaneous coronary intervention to le ft anterior descending [employer] DES[employer] and percutaneous transluminal coronary angioplasty and stenting of the ri t superficial femoral artery as well as left superficial femoral artery for coronary artery diseas e by Dr. Stephen. HOSPITAL COURSE: The patient presented in the emergency room with complaints of shortness of breath and generalized weakness. The patient was orally intubated and admitted for an intensive care unit . The patient was evaluated and followed by Dr. Cazares and Dr. Ortiz in pulmonology consultation. The patient was also followed by Dr. Allison in infectious disease consultation. The patient was tere shana on broad spectrum antibiotics. Patient had difficulty being weaned off the ventilator and at so me point was evaluated for possible tracheostomy and PEG placement. However, patient eventually was able to be weaned off the vent and extubated. The patient was also noted with a blood culture that was positive for vancomycin-resistant enterococcus and patient was given treatment with linezolid a nd completed it. The patient was also followed by Dr. Hubbard in nephrology consultation, contin ued on hemodialysis. The patient was followed by Dr. Garay in endocrinology consultation and the pa elba was on insulin drip started in the emergency room and continued in the ICU patient. The patie nt at home has insulin and in fact, it was disconnected in the emergency room and the patient eventu ally was weaned off the insulin drip and was given the Lantus and premeal NovoLog. The patient was also given Epogen for anemia of chronic disease. Patient noted to have transaminitis and was evalua harish by Dr. Britt in gastroenterology consultation which is also resolved and thought to be secondar y to shock liver and sepsis. The patient was also treated for healthcare-acquired pneumonia which i s resolved. The patient's condition improved. The patient has completed treatment for bacteremia a nd the patient will be discharged to intermediate facility for further management. CONDITION ON DISCHARGE: Hemodynamically stable. ACTIVITY: As patient tolerates. DIET: 1800 ADA 2 g sodium, low fat, low cholesterol diet. DISCHARGE MEDICATIONS: 1. Tylenol p.r.n. 2. DuoNeb q.6h. 3. Aspirin. 4. Calcitriol and calcium carbonate. 5. Coreg. 6. Benadryl p.r.n. for itching. 7. Lomotil p.r.n. for constipation. 8. Floranex. 9. Hypoglycemia protocol. 10. Dilaudid 2 mg q. p.r.n. for pain. 11. NovoLog per mild algorithm sliding scale. 12. Levemir 8 units subq q.12h. 13. Lisinopril. 14. Effient. Interdisciplinary of care was established for this patient. Plan of care was discussed with Dr. Kiran lay. Dictated By: ANGELINA CASTREJON AGRICULTURAL EXTENSION EDUCATOR for WILMER RODRIGUEZ MD SR/NTS Conf#: [id number] DID#: [id number]
== END 2016-10-24 14:07 | DRG 870 ==
LOC: E/R 02:38 → ICU 05:39 → TEL 10-17 10:50 → MS2 10-21 16:45
PROVIDERS: ADMIT Internal Medicine; ATTEND Internal Medicine
PROC: 5A1955Z Respiratory Ventilation, Greater than 96 Consecutive Hours (ICD-10-PCS; principal; 2016-09-28)
PROC: 5A1D60Z (ICD-10-PCS; 2016-09-28)
PROC: 0BH17EZ Insertion of Endotracheal Airway into Trachea, Via Natural or Artificial Opening (ICD-10-PCS; 2016-09-28)
DX: A41.9 Sepsis, unspecified organism (principal); J96.01 Acute respiratory failure with hypoxia; K72.00 Acute and subacute hepatic failure without coma; J18.9 Pneumonia, unspecified organism; N18.6 End stage renal disease; I12.0 Hypertensive chronic kidney disease with stage 5 chronic kidney disease or end stage renal disease; E87.1 Hypo-osmolality and hyponatremia; E10.22 Type 1 diabetes mellitus with diabetic chronic kidney disease; R13.10 Dysphagia, unspecified; J81.0 Acute pulmonary edema; R78.81 Bacteremia; I25.10 Atherosclerotic heart disease of native coronary artery without angina pectoris; E87.6 Hypokalemia; E78.5 Hyperlipidemia, unspecified; E83.51 Hypocalcemia; E10.65 Type 1 diabetes mellitus with hyperglycemia; I73.9 Peripheral vascular disease, unspecified; H54.8 Legal blindness, as defined in USA; D63.8 Anemia in other chronic diseases classified elsewhere; Z95.820 Peripheral vascular angioplasty status with implants and grafts; Z95.5 Presence of coronary angioplasty implant and graft; Z99.2 Dependence on renal dialysis
CPT/HCPCS: 31500; 36415; 36600; 70450; 71010; 71275; 73562; 76700; 76937; 80048; 80053; 80202; 81001; 81003; 82550; 82553; 82803; 82962; 83605; 83735; 84100; 84484; 85025; 85610; 85730; 87040; 87045; 87070; 87075; 87081; 87086; 89220; 90935; 92526; 92610; 93005; 93306; 93970; 94002; 94003; 94640; 94770; 96372; 96374; 96375; 97162; A4310; J0360; J0692; J0743; J1170; J1200; J1642; J1644; J1815; J2370; J2405; J2997; J3010; J3370; J3480; J7030; J7040; J7050; J7060; J7070; Q9967

== ENCOUNTER 2016-11-07 09:01 | Emergency (ER) | payer MEDICARE, OTHER ==
[~2016-11-07] VITALS: Wt 70.0 kg
--- NOTE | 2016-11-07 09:12 | ERD ---
ER Documentation Chief Complaint Date/Time DATE: 11/07/16 TIME: 09:12 Chief Complaint HPI 51-year-old male sent by his [facility] for [facility]. Reportedly he voiced to them that he was suicidal. I spoke with the patient myself and he states that he never told them that he had any thoughts or plans to kill himself. He was talking about his home situation and told 1 of the nurses that his does not want him going back home because she does not want anything to happen to him while she is at work. He thinks that they interpreted that as he would kill himself. He denies any history of depression. He has multiple medical problems and was recently hospitalized which is why he is at rehab. He is obviously sad about the whole situation, but he denies any suicidal thoughts, ideations. He has no previous psychiatric history. He states he would never hurt himself because he has 2 small children that he would like to live for. ROS All systems reviewed and are negative except as per history of present illness. Medications Home Meds Active Scripts [Vancomycin Oral Syringe] 50 MG/ML SOLN No Conflict Check, 125 MG PO Q6 for 10 Days Prov:ANGELINA CASTREJON 07/01/16 Lactobacillus Acidoph/Bulgaricus* (Floranex*) 1 Each Tablet, 1 TAB PO TID for 30 Days, TAB Prov:ANGELINA CASTREJON 07/01/16 Clonidine Hcl* (Clonidine Hcl*) 0.1 Mg Tab, 0.1 MG PO Q6 for 30 Days, TAB Prov:ANGELINA CASTREJON 07/01/16 Hydromorphone Hcl* (Dilaudid*) 2 Mg Tablet, 2 MG PO Q6H Y for PAIN LEVEL 6-10, # 14 TAB Prov:PEDRO BENSON 05/31/16 Prasugrel Hydrochloride* (Effient*) 10 Mg Tablet, 10 MG PO DAILY for 30 Days, TAB Prov:PEDRO BENSON 05/01/16 Isosorbide Mononitrate* (Isosorbide Mononitrate*) 60 Mg Tab.er.24h, 60 MG PO DAILY for 30 Days Prov:PEDRO BENSON 05/01/16 Reported Medications Pramipexole* (Pramipexole*) 0.25 Mg Tablet, 0.25 MG PO HS, TAB 05/15/16 Lisinopril* (Zestril*) 10 Mg Tablet, 10 MG PO DAILY, #30 TAB 05/15/16 Insulin Lispro (Humalog) 100 Unit/1 Ml Cartridge, 0 SQ PT HAS PUMP 05/15/16 Sevelamer Hcl* (Renagel*) 800 Mg Tablet, 1600 MG PO WITH MEALS, TAB 01/14/16 Calcium Acetate* (Calcium Acetate*) 667 Mg Capsule, 1334 MG PO WITH MEALS, #60 CAP 01/14/16 Aspirin* (Aspirin* EC) 81 Mg Tablet.dr, 81 MG PO DAILY, TAB 12/21/15 Lorazepam* (Ativan*) 2 Mg Tablet, 2 MG PO HS, #30 TAB 12/21/15 Atorvastatin* (Atorvastatin*) 80 Mg Tablet, 80 MG PO QHS, #30 TAB 07/15/15 Diphenhydramine Hcl* (Benadryl*) 50 Mg Cap, 50 MG PO Q6 Y for ITCHING, CAP 07/15/15 Docusate Sodium* (Docusate Sodium*) 100 Mg Capsule, 100 MG PO BID, #60 CAP 07/15/15 Metoprolol Succinate* (Toprol XL*) 50 Mg Tab.er.24h, 50 MG PO BID, TAB PT DOES NOT TAKE ON SAT 07/09/14 Allergies Allergies: Coded Allergies: adhesive (Verified Allergy, Intermediate, 10/17/16) (+)itchiness/rash azithromycin (Verified Allergy, Intermediate, RASH, 10/17/16) erythromycin base (Verified Allergy, Intermediate, CRAMPS, 10/17/16) codeine (Verified Allergy, Mild, ABD. CRAMPS, 10/17/16) morphine (Verified Allergy, Unknown, 10/17/16) PMhx/Soc History of Surgery: Yes (R GROIN STENT IN 2017 UNK DATE, NASAL SURGERY, UNK DATE) Anesthesia Reaction: No Hx 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 Disorder: No Hx Respiratory Disorders: No Hx Cardiac Disorders: Yes (HTN, HEART FAILURE) Hx Psychiatric Problems: Yes (ANXIETY) Hx Miscellaneous Medical Probl: Yes (DM, renal failure, intubation/extubation, CAD,cholesterol) Hx Alcohol Use: No Hx Substance Use: Yes (MARIJUANA, STOPPED IN MAY 2016) Hx Tobacco Use: No FmHx Family History: No diabetes Physical Exam Vitals Vital Signs Date Time Temp Pulse Resp B/P Pulse Ox O2 Delivery O2 Flow Rate FiO2 11/07/16 09:07 98.5 89 20 129/78 98 Physical Exam Const: Well-appearing, no distress Head: Atraumatic Eyes: Normal Conjunctiva, blind ENT: Normal External Ears, Nose and Mouth. Neck: Full range of motion..~ No meningismus. Resp: Clear to auscultation bilaterally Cardio: Regular rate and rhythm, no murmurs Abd: Soft, non tender, non distended. Normal bowel sounds Skin: No petechiae or rashes Back: No midline or flank tenderness Ext: No cyanosis, trace bilateral lower extremity edema Neur: Awake and alert Psych: Appearance: Well-dressed M/S: Alert and oriented Mood/Affect: Normal Speech: Normal Insight: Normal Hallucinations: None SI or HI: None Procedures/MDM Patient was sent here for possible suicidal ideations. His vitals are stable and his exam is unremarkable. I do not think that this patient is suicidal or meets any criteria for a psychiatric evaluation or hold. I do not think he is a danger to himself or others. Patient will be discharged back to his facility without any further workup. Departure Diagnosis: Primary Impression: Sad mood Condition: Stable MIK KIRAN MD November 07, 2016 09:12
== END 2016-11-07 09:53 | disposition home or self-care (01) ==
LOC: E/R 09:01
DX: F39 Unspecified mood [affective] disorder (principal); I10 Essential (primary) hypertension; E11.9 Type 2 diabetes mellitus without complications; I25.10 Atherosclerotic heart disease of native coronary artery without angina pectoris; Z79.82 Long term (current) use of aspirin; Z79.4 Long term (current) use of insulin
CPT/HCPCS: 99282

== ENCOUNTER 2017-01-05 08:26 | Emergency (ER) | payer MEDICARE, OTHER ==
[~2017-01-05] VITALS: Ht 172.7 cm; Wt 75.0 kg
[~2017-01-05 08:26] MED LIST changes: -HYDR2TAB15 PO; +HYDR2TAB36 PO
[2017-01-05 08:27] VITALS: Ht 172.7 cm; Wt 75.0 kg
--- NOTE | 2017-01-05 08:35 | ERA ---
ER Documentation Chief Complaint Date/Time DATE: 01/05/17 TIME: 08:35 Chief Complaint SOB, CHEST PRESSURE, HEADACHE HPI 51-year-old man with an extensive cardiac history as well as end-stage kidney disease presents with [facility]. Nurses state oxygen saturation went down to 92%, but patient was given hydromorphone intravenously just prior to that episode. Patient complains of sharp nonexertional nonradiating chest pain and body aches and is requesting more hydromorphone. He denies cough, no calf or leg swelling, no abdominal pain, no vomiting or diarrhea. Patient underwent full hemodialysis on Thursday and is due for hemodialysis in 2 days. Patient was transported here by EMS without further complications. ROS All systems reviewed and are negative except as per history of present illness. Medications Home Meds Active Scripts [Vancomycin Oral Syringe] 50 MG/ML SOLN No Conflict Check, 125 MG PO Q6 for 10 Days Prov:ANGELINA CASTREJON 07/01/16 Lactobacillus Acidoph/Bulgaricus* (Floranex*) 1 Each Tablet, 1 TAB PO TID for 30 Days, TAB Prov:ANGELINA CASTREJON 07/01/16 Clonidine Hcl* (Clonidine Hcl*) 0.1 Mg Tab, 0.1 MG PO Q6 for 30 Days, TAB Prov:ANGELINA CASTREJON 07/01/16 Hydromorphone Hcl* (Dilaudid*) 2 Mg Tablet, 2 MG PO Q6H Y for PAIN LEVEL 6-10, # 14 TAB Prov:PEDRO BENSON 05/31/16 Prasugrel Hydrochloride* (Effient*) 10 Mg Tablet, 10 MG PO DAILY for 30 Days, TAB Prov:PEDRO BENSON 05/01/16 Isosorbide Mononitrate* (Isosorbide Mononitrate*) 60 Mg Tab.er.24h, 60 MG PO DAILY for 30 Days Prov:PEDRO BENSON 05/01/16 Reported Medications Pramipexole* (Pramipexole*) 0.25 Mg Tablet, 0.25 MG PO HS, TAB 05/15/16 Lisinopril* (Zestril*) 10 Mg Tablet, 10 MG PO DAILY, #30 TAB 05/15/16 Insulin Lispro (Humalog) 100 Unit/1 Ml Cartridge, 0 SQ PT HAS PUMP 05/15/16 Sevelamer Hcl* (Renagel*) 800 Mg Tablet, 1600 MG PO WITH MEALS, TAB 01/14/16 Calcium Acetate* (Calcium Acetate*) 667 Mg Capsule, 1334 MG PO WITH MEALS, #60 CAP 01/14/16 Aspirin* (Aspirin* EC) 81 Mg Tablet.dr, 81 MG PO DAILY, TAB 12/21/15 Lorazepam* (Ativan*) 2 Mg Tablet, 2 MG PO HS, #30 TAB 12/21/15 Atorvastatin* (Atorvastatin*) 80 Mg Tablet, 80 MG PO QHS, #30 TAB 07/15/15 Diphenhydramine Hcl* (Benadryl*) 50 Mg Cap, 50 MG PO Q6 Y for ITCHING, CAP 07/15/15 Docusate Sodium* (Docusate Sodium*) 100 Mg Capsule, 100 MG PO BID, #60 CAP 07/15/15 Metoprolol Succinate* (Toprol XL*) 50 Mg Tab.er.24h, 50 MG PO BID, TAB PT DOES NOT TAKE ON SAT 07/09/14 Allergies Allergies: Coded Allergies: adhesive (Verified Allergy, Intermediate, 10/17/16) (+)itchiness/rash azithromycin (Verified Allergy, Intermediate, RASH, 10/17/16) erythromycin base (Verified Allergy, Intermediate, CRAMPS, 10/17/16) codeine (Verified Allergy, Mild, ABD. CRAMPS, 10/17/16) morphine (Verified Allergy, Unknown, 10/17/16) PMhx/Soc End-stage kidney disease hemodialysis dependent, diabetes mellitus, hypertension , peripheral arterial disease, anemia, coronary artery disease, recent pneumonia , previous PCI with stent placement, chronic pain syndrome, opioid dependence History of Surgery: Yes (R GROIN STENT IN 2017 UNK DATE, NASAL SURGERY, UNK DATE) Anesthesia Reaction: No Hx 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 Disorder: No Hx Respiratory Disorders: No Hx Cardiac Disorders: Yes (HTN, HEART FAILURE) Hx Psychiatric Problems: Yes (ANXIETY) Hx Miscellaneous Medical Probl: Yes (DM, renal failure, intubation/extubation, CAD,cholesterol) Hx Alcohol Use: No Hx Substance Use: Yes (MARIJUANA, STOPPED IN MAY 2016) Hx Tobacco Use: No Smoking Status: Never smoker FmHx Family History: No diabetes Physical Exam Vitals Vital Signs Date Time Temp Pulse Resp B/P Pulse Ox O2 Delivery O2 Flow Rate FiO2 01/05/17 08:40 Nasal Cannula 2.0 01/05/17 08:27 98.0 99 18 194/100 100 Physical Exam GENERAL: Well-developed, well-nourished, well-hydrated, appears sedate and intoxicated with opioids, afebrile HEENT: Moist mucous membranes, pink conjunctiva, no cervical spine tenderness or step-off deformities, no goiter, no jaundice or icterus, extraocular movements intact without pain. NEURO: Alert and oriented 3, cranial nerves II through XII intact bilaterally, pupils equal round reactive to light, no focal deficits or facial asymmetry, sensation intact distally Strength 5/5 in upper and lower extremities bilaterally CARDIAC: Tachycardic and regular, no murmurs rubs or gallops LUNGS: Clear bilaterally no wheezing crackles or stridor ABDOMEN: Soft nontender, no guarding, no rigidity, no rebound, no psoas sign no obturator sign. SKIN: Warm and dry to touch, no abrasions, contusions, or hematomas, no lacerations, no ecchymosis, no target lesions, and without ulcers EXTREMITIES: No clubbing cyanosis or edema, calves are bilaterally symmetrical, no Homans sign, no popliteal cord sign. Distal pulses equal and bilateral PSYCH: Normal affect without agitation or irritability, sedate Result Diagram: 01/05/17 0853 01/05/17 0853 Results 24 hrs Laboratory Tests Test 01/05/17 08:42 01/05/17 08:53 Blood Gas Specimen Source Blood arterial Arterial Blood Date Drawn 01/05/2017 9:10:02 AM Arterial Blood pH (Temp corrected) 7.331 Arterial Blood pCO2 (Temp correct) 40.8mmhg Arterial Blood pO2 (Temp corrected) 73.2mmHG Arterial Blood HCO3 21.1mmol/L Arterial Blood Base Excess -4.5mmol/L Arterial Blood Oxygen Saturation 93.1mmHG Dick Test ACCEPTAB Arterial Blood Gas Puncture Site Right Radial Arterial Blood Carboxyhemoglobin 0.6% Arterial Blood Methemoglobin 0.5% Blood Gas A-a O2 Differential 27.7mmHg Oxyhemoglobin Percent 92.1% Total Hemoglobin 14.9g/dl Blood Gas Temperature 37.0C Blood Gas Modality ROOM AIR FiO2 21.0% Blood Gas Notified Whom JLD Blood Gas Notified Time 01/05/2017 9:19:44 AM White Blood Count 7.610^3/ul Red Blood Count 4.8310^6/ul Hemoglobin 13.5g/dl Hematocrit 43.4% Mean Corpuscular Volume 89.9fl Mean Corpuscular Hemoglobin 28.0pg Mean Corpuscular Hemoglobin Concent 31.1g/dl Red Cell Distribution Width 18.3% Platelet Count 41571^3/UL Mean Platelet Volume 10.5fl Neutrophils % 63.7% Lymphocytes % 16.4% Monocytes % 10.5% Eosinophils % 8.1% Basophils % 1.2% Nucleated Red Blood Cells % 0.0/100WBC Neutrophils # 4.910^3/ul Lymphocytes # 1.310^3/ul Monocytes # 0.810^3/ul Eosinophils # 0.610^3/ul Basophils # 0.110^3/ul Nucleated Red Blood Cells # 0.010^3/ul Sodium Level 139mmol/L Potassium Level 4.7mmol/L Chloride Level 97mmol/L Carbon Dioxide Level 21mmol/L Anion Gap 26 Blood Urea Nitrogen 56mg/dl Creatinine 8.66mg/dl Glucose Level 156mg/dl Calcium Level 7.3mg/dl Total Bilirubin 0.0mg/dl Direct Bilirubin 0.00mg/dl Indirect Bilirubin 0.0mg/dl Aspartate Amino Transf (AST/SGOT) 36IU/L Alanine Aminotransferase (ALT/SGPT) 46IU/L Alkaline Phosphatase 179IU/L Troponin I 0.018ng/ml Total Protein 7.3g/dl Albumin 4.1g/dl Globulin 3.20g/dl Albumin/Globulin Ratio 1.28 Lipase 127U/L Current Medications Medications (Trade) Dose Ordered Sig/Angel Route PRN Reason Start Time Stop Time Status Last Admin Dose Admin Ketorolac Tromethamine (Toradol) 15 mg ONCE STAT IV 01/05/17 09:26 01/05/17 09:30 DC 01/05/17 09:56 Procedures/MDM IV line was established patient was placed on awake overnight monitor rhythm strip revealed a sinus tachycardia at 100 bpm with upright P and T waves. Patient was afebrile. ABG on room air revealed a pH of 7.33, PCO2 41, PO2 73 revealing mild metabolic acidosis otherwise unremarkable. EKG performed, read by me: 95 bpm, normal sinus rhythm, normal axis, no acute ST segment changes, narrow QRS complex, with good R-wave progression in precordial leads. Chest X-ray 1V Interpreted by me: Soft Tissue: No acute abnormalities Bones: No acute abnormalities Mediastinum/Cardiac Silhouette/Lungs: No acute abnormalities CBC and electrolytes revealed chronic renal failure, potassium normal, liver function tests normal, troponin was negative. Patient asked for Dilaudid multiple times during his stay here and I treated him with Toradol 15 mg IV to help control his pain, I refused to give him opioid analgesics as it will cause further respiratory depression, which I suspect is the underlying reason for the 911 call today. Workup was unremarkable here in the ED, his labs are normal, vital signs are normal, and he will be discharged to follow-up with PMD and global implementation manager as scheduled. I spoke to his PMD Dr. Rosales who agreed with above plan and recommended continued outpatient management. Differential diagnoses considered, included but not limited to acute coronary syndrome, pulmonary embolism, aortic dissection, abdominal aortic aneurysm, sepsis, stroke, meningitis, encephalitis, pneumonia, appendicitis, cholecystitis , bowel obstruction, pyelonephritis, nephrolithiasis, cystitis, as well as metabolic, hematologic, and electrolyte abnormalities. As well as abscess, cellulitis, fractures, and dislocations. Patient feels much better at this time, and vital signs are normal, symptoms have improved. I did give strict instructions to return to the ED if symptoms continue or worsen, patient will otherwise follow-up with primary care physician. Patient understood instructions and agreed to plan. Disclaimer: Inadvertent spelling and grammatical errors are likely due to EHR/ dictation software use and do not reflect on the overall quality of patient care. Also, please note that the electronic time recorded on this note does not necessarily reflect the actual time of the patient encounter. Departure Diagnosis: Primary Impression: Opioid intoxication Qualified Code: F11.129 - Opioid intoxication, with unspecified complication Additional Impressions: Hypertension Qualified Code: I10 - Essential hypertension End stage kidney disease Chest pain Qualified Code: R07.9 - Chest pain, unspecified type NANY GARCIA MD Jan 05, 2017 08:35
[2017-01-05 09:09] LABS: BASOPHIL # 0.1 10^3/ul (0.0-0.1); BASOPHILS % 1.2 % (0.0-2.0); EOSINOPHILS # 0.6 10^3/ul (0.0-0.5); EOSINOPHILS % 8.1 % (0.0-7.0); HEMATOCRIT 43.4 % (42.0-52.0); HEMOGLOBIN 13.5 g/dl (14.0-18.0); LYMPHOCYTES # 1.3 10^3/ul (0.8-2.9); LYMPHOCYTES % 16.4 % (15.0-51.0); MEAN CORPUSCULAR HGB CONC 31.1 g/dl (32.0-37.0); MEAN CORPUSCULAR VOLUME 89.9 fl (82.0-101.0); MEAN PLATELET VOLUME 10.5 fl (7.4-10.4); MONOCYTE # 0.8 10^3/ul (0.3-0.9); MONOCYTES % 10.5 % (0.0-11.0); NEUTROPHIL # 4.9 10^3/ul (1.6-7.5); NEUTROPHILS % 63.7 % (39.0-77.0); PLATELET COUNT 207 10^3/UL (140-415); RED BLOOD COUNT 4.83 10^6/ul (4.70-6.10); RED CELL DISTRIBUTION WIDTH 18.3 % (11.5-14.5); WHITE BLOOD COUNT 7.6 10^3/ul (4.8-10.8)
--- NOTE | 2017-01-05 09:15 | RADRPT ---
PROCEDURE: XR Chest. CLINICAL INDICATION: chest pain TECHNIQUE: Single frontal view of the chest was obtained COMPARISON: 08/21/16 FINDINGS: The heart and mediastinum are within normal limits. There is a left-sided Port-A-Cath in place. There are mild left lower lobe linear atelectatic changes. The lungs are otherwise clear. There is no pleural effusion or pneumothorax. RPTAT: AA IMPRESSION: No acute disease. Mild left lower lobe linear atelectatic changes. .Giancarlo Xiao MD, MD Date Time Electronically viewed and signed by .Giancarlo Xiao MD, on 01/05/2017 09:15 .S/
[2017-01-05 09:19] LABS: AADO2 Arterial 27.7 mmHg (7.0-24.0); Allen Test ACCEPTAB; Arterial Base Excess -4.5 mmol/L (-3.0-3); Arterial COHb 0.6 % (0.0-3.0); Arterial Fraction of Oxyhgb 92.1 % (93.0-99.0); Arterial HCO3 21.1 mmol/L (22.0-26.0); Arterial MetHb 0.5 % (0.0-1.5); Arterial Total Hemglobin 14.9 g/dl (12.0-18.0); MODE ROOM AIR
[2017-01-05] MEDS ORDERED: KETOROLAC 15 MG INJ IV STA (09:26)
[2017-01-05 09:27] LABS: ALBUMIN 4.1 g/dl (3.3-4.9); ALBUMIN/GLOBULIN RATIO 1.28; CALCIUM 7.3 mg/dl (8.4-10.2); CREATININE 8.66 mg/dl (0.61-1.24); POTASSIUM 4.7 mmol/L (3.5-5.1); TOTAL PROTEIN 7.3 g/dl (6.1-8.1)
[2017-01-05 09:44] LABS: TROPONIN-I 0.018 ng/ml (0.00-0.12)
== END 2017-01-05 13:33 | disposition home or self-care (01) ==
LOC: E/R 08:26
DX: F11.129 Opioid abuse with intoxication, unspecified (principal); I12.0 Hypertensive chronic kidney disease with stage 5 chronic kidney disease or end stage renal disease; N18.6 End stage renal disease; R07.9 Chest pain, unspecified; E11.9 Type 2 diabetes mellitus without complications; I25.10 Atherosclerotic heart disease of native coronary artery without angina pectoris; Z79.4 Long term (current) use of insulin; Z79.82 Long term (current) use of aspirin
CPT/HCPCS: 36415; 36600; 71010; 80053; 82803; 83690; 84484; 85025; 93005; 96374; 99284; J1885